=== PATIENT | female | born 1965 | race Caucasian/White ===

== ENCOUNTER 2017-03-10 11:07 | Outpatient (RCR) | payer BC, SELFPAY ==
[2017-03-10 12:28] LABS: International Normalized Ratio 2.3; Prothrombin Time (Protime)PT. 24.2 SECONDS (11.7-14.9)
== END 2017-03-16 23:59 ==
LOC: BFHLAB 11:07
PROVIDERS: Family Provider Family Medicine; PCP Family Medicine; Visit Provider Family Medicine
DX: I35.9 Nonrheumatic aortic valve disorder, unspecified (principal)
CPT/HCPCS: 36415; 85610

== ENCOUNTER 2017-03-28 08:46 | Outpatient (RCR) | payer BC, SELFPAY ==
[2017-03-28 12:24] LABS: International Normalized Ratio 2.6; Prothrombin Time (Protime)PT. 26.9 SECONDS (11.7-14.9)
== END 2017-04-13 23:59 ==
LOC: BFHLAB 08:46
PROVIDERS: Family Provider Family Medicine; PCP Family Medicine; Visit Provider Family Medicine
DX: I35.9 Nonrheumatic aortic valve disorder, unspecified (principal)
CPT/HCPCS: 36415; 85610

== ENCOUNTER → 2017-04-28 10:02 | Outpatient (CLI) | payer BC, SELFPAY ==
[2017-02-15 12:28] LABS: International Normalized Ratio 1.3; Prothrombin Time (Protime)PT. 15.5 SECONDS (11.7-14.9)
[2017-04-28 12:29] LABS: International Normalized Ratio 3.2; Prothrombin Time (Protime)PT. 33.1 SECONDS (11.7-14.9)
== END ==
PROVIDERS: Family Provider Family Medicine; PCP Family Medicine; Visit Provider Family Medicine
DX: I35.9 Nonrheumatic aortic valve disorder, unspecified (principal)
CPT/HCPCS: 36415; 85610

== ENCOUNTER → 2017-05-26 08:25 | Outpatient (CLI) | payer BC, SELFPAY ==
[2017-05-26 10:57] LABS: Absolute Lymphocyte Count 1.83 X10^3/ul (0.83-4.51); Absolute Neutrophil Count 3.1 X10^3/uL (2.0-7.7); Basophil# 0.02 X10^3/uL; Basophil% 0.3 % (0-1); Eosinophil# 0.26 X10^3/uL; Eosinophils% 4.5 % (0-5); Hematocrit 39.9 % (37-47); Lymphocyte # 1.83 X10^3/ul (4.0); Lymphocyte % 31.8 % (19-41); Mean Corp Hgb Conc 35.1 g/gl (32-36); Mean Corpuscular Hgb 30.4 pg (27.0-32.0); Mean Corpuscular Volume 86.6 fL (81-99); Mean Platelet Vol. 10.1 fl (6.2-12.0); Monocyte# 0.49 X10^3/uL; Monocyte% 8.5 % (0-10); Neutrophil # 3.14 X10^3/uL (2.7-7.7); Neutrophil % 54.7 % (47-70); POSITIVE COUNT NO; POSITIVE DIFFERENTIAL NO; POSITIVE MORPHOLOGY NO; Platelet Count 261 K/mm3 (150-450); RBC Distribution Width CV 13.4 % (11.6-14.6); RBC Distribution Width SD 41.5 fl (35.1-43.9); Red Blood Count 4.61 M/mm3 (4.2-5.4); White Blood Count 5.8 K/mm3 (4.4-11.0)
[2017-05-26 11:12] LABS: AST(SGOT) 30 U/L (15-37); Alanine Aminotransfer ALT/SGPT 35 U/L (13-56); Albumin, Serum 3.9 g/dL (3.2-5.0); Alkaline Phosphatase 119 U/L (45-117); Anion Gap 8 (5-15); BUN 20 mg/dL (7-18); BUN/Creat Ratio 22.2 RATIO (10-20); Calcium,Total 9.2 mg/dL (8.5-10.1); Chloride 105 mmol/L (98-107); Cholesterol 215 mg/dL (200); EST Glomerular Filtration Rate 70 mL/min (>60); Est Glom Filt Rate - Afr Amer 85 mL/min (>60); Globulin 3.8 g/dL (2.2-4.2); Glucose 91 mg/dL (74-106); High Density Lipoprotein 44 mg/dL; Potassium 4.1 mmol/L (3.5-5.1); Protein, Total 7.7 g/dL (6.4-8.2); Sodium Level 142 mmol/L (136-145); T4 Free Direct 0.96 ng/dL (0.76-1.46); Triglycerides 271 mg/dL; Very Low Density Lipoprotein 54 mg/dL (5-40)
[2017-05-26 11:22] LABS: International Normalized Ratio 1.7
[2017-05-27 09:48] LABS: Vitamin B12 1022 pg/mL (211-911); Vitamin D,25 Hydroxy 22.8 ng/mL (29.95-100.01)
== END ==
PROVIDERS: Family Provider Family Medicine; PCP Family Medicine; Visit Provider Family Medicine
DX: E78.5 Hyperlipidemia, unspecified (principal); I35.9 Nonrheumatic aortic valve disorder, unspecified; K21.9 Gastro-esophageal reflux disease without esophagitis; R53.83 Other fatigue; E55.9 Vitamin D deficiency, unspecified; E53.8 Deficiency of other specified B group vitamins
CPT/HCPCS: 36415; 80053; 80061; 82306; 82607; 84439; 84443; 85025; 85610

== ENCOUNTER → 2017-06-02 06:57 | Outpatient (CLI) | payer BC, SELFPAY ==
--- NOTE | 2017-06-02 07:04 | BI_ITS ---
MAMMOGRAPHY - BILATERAL SCREENING REASON FOR EXAM: Female, 51 years old. Routine annual screening examination. PERTINENT HISTORY: Non-contributory. TECHNIQUE: Digital bilateral breast doug (3D mammographic acquisition) in the CC and MLO projections. 2-D mediolateral oblique (MLO) and craniocaudad (CC) views of both breasts were obtained. CAD: Full Field Digital Mammography with Computer Added Detection was performed. COMPARISON: Comparison is made with prior study dated September 29, 2015 and November 19, 2009. FINDINGS: Breast Composition: There are scattered areas of fibroglandular density. There are no dominant masses or suspicious calcifications. No other significant abnormalities are identified. There has been no significant change since the prior study. BI/SCREENING MAMM (CAD), BILAT IMPRESSION: Stable bilateral screening mammogram. Yearly follow-up mammogram recommended. (A) ASSESSMENT CATEGORY: BIRADS Category 1: Negative. A letter regarding these results will be sent to the patient by the facility within 30 days. Approximately 10% of breast cancers are not detected by mammography. A normal mammogram should not delay biopsy of a clinically suspicious abnormality. [id number] Electronically Signed: Ludwin Hernandes MD at 8:35 EDT Tel [phone], Service support ,
== END ==
PROVIDERS: Family Provider Family Medicine; PCP Family Medicine; Visit Provider Family Medicine
DX: Z12.31 Encounter for screening mammogram for malignant neoplasm of breast (principal)
CPT/HCPCS: 77063; 77067

== ENCOUNTER 2017-06-02 07:22 | Outpatient (RCR) | payer BC, SELFPAY ==
[2017-06-02 08:55] LABS: International Normalized Ratio 3.5; Prothrombin Time (Protime)PT. 35.1 SECONDS (11.7-14.9)
== END 2017-06-02 08:00 | disposition home or self-care (01) ==
LOC: LAB 07:22
PROVIDERS: Family Provider Family Medicine; PCP Family Medicine; Visit Provider Family Medicine
DX: I35.9 Nonrheumatic aortic valve disorder, unspecified (principal)
CPT/HCPCS: 36415; 85610

== ENCOUNTER → 2017-06-27 13:58 | Outpatient (CLI) | payer BC, SELFPAY ==
[2017-06-29 11:12] LABS: HPV APTIMA, High Risk Negative (Negative)
== END ==
PROVIDERS: Visit Provider Nurse Practitioner Women's Health
DX: Z12.4 Encounter for screening for malignant neoplasm of cervix (principal)
CPT/HCPCS: 88175; G0145

== ENCOUNTER 2017-07-05 07:47 | Day surgery (SDC) | payer BC, SELFPAY ==
[2017-07-05 08:11] VITALS: BP 135/76; PULSE 58; RESP 14; TEMP 35.6; O2SAT 100; BMI 28.5
[2017-07-05 08:31] LABS: International Normalized Ratio 2.1; Prothrombin Time (Protime)PT. 23.7 SECONDS (11.7-14.9)
[2017-07-05 09:27] VITALS: BP 106/64; BP 135/76; PULSE 57; RESP 18; TEMP 36.9; O2SAT 98
--- NOTE | 2017-07-05 09:27 | PCM.OPRPT ---
Problem List (1) Screen for colon cancer Status: Acute Report of Operation Date of Procedure: 07/05/17 Pre-Operative Diagnosis: Screening colon cancer Post-Operative Diagnosis: Normal colonoscopy Surgery/Procedure Performed:: Colonoscopy Specimen's removed: None Description of Procedure: The major risks and benefits associated with the procedure were explained to the patient in detail. The patient verbalized understanding and agreement with the same. The patient was brought to the endoscopy suite. After adequate sedation was achieved, the patient was placed in the left lateral decubitus position and a digital rectal exam was performed. This examination was within normal limits. A well-lubricated colonoscope was then inserted into the rectum and advanced under direct visualization to the level of the cecum. The bowel prep was good. The cecum was identified by both visual and anatomic landmarks. A photograph was taken of the end of the cecum. The scope was then fully withdrawn while examining the color, texture, anatomy and integrity of the mucosa from the cecum to the anal canal. The findings were consistent with normal colonic mucosa. Over 6 minutes were taken to examine the colonic mucosa. Upon reaching the rectum the scope was retroflexed to examine the distal rectal vault. The scope was then straightened and was completely retrieved upon exiting the anal canal and the procedure was terminated. The patient was then transferred to the recovery room in stable condition. Recommendations for follow up: 10 years
[2017-07-05 09:30] VITALS: BP 105/64; BP 135/76; PULSE 55; RESP 14; O2SAT 98
[2017-07-05 09:36] VITALS: BP 115/68; BP 135/76; PULSE 54; RESP 14; O2SAT 100
[2017-07-05 09:40] VITALS: BP 109/67; BP 135/76; PULSE 52; RESP 14; TEMP 36.8; O2SAT 100
[2017-07-05 09:56] VITALS: BP 135/76
[2017-07-05 10:21] LABS: Prothrombin Time Fingerstick 21.5 SEC (11.9-14.4)
== END 2017-07-05 09:58 | disposition home or self-care (01) ==
LOC: EN 07:48 → AC 07:48
PROVIDERS: Family Provider Family Medicine; PCP Family Medicine; Visit Provider Surgery
PROC: 0DJD8ZZ Inspection of Lower Intestinal Tract, Via Natural or Artificial Opening Endoscopic (ICD-10-PCS; CPT 45378; principal; 2017-07-05 08:55)
DX: Z12.11 Encounter for screening for malignant neoplasm of colon (principal); I10 Essential (primary) hypertension; E78.5 Hyperlipidemia, unspecified; K21.9 Gastro-esophageal reflux disease without esophagitis; Z85.41 Personal history of malignant neoplasm of cervix uteri; Z95.4 Presence of other heart-valve replacement
CPT/HCPCS: 45378; 36416; 85610; J7120

== ENCOUNTER → 2017-07-13 07:55 | Outpatient (CLI) | payer BC, SELFPAY ==
[2017-07-13 12:15] LABS: International Normalized Ratio 2.7; Prothrombin Time (Protime)PT. 29.2 SECONDS (11.7-14.9)
[2017-09-14 07:31] LABS: Prothrombin Time Fingerstick 28.9 SEC (11.9-14.4)
== END ==
LOC: BFHLAB 07:55
PROVIDERS: Family Provider Family Medicine; PCP Family Medicine; Visit Provider Family Medicine
DX: I35.9 Nonrheumatic aortic valve disorder, unspecified (principal)
CPT/HCPCS: 36415; 36416; 85610

== ENCOUNTER 2017-07-24 17:35 | Emergency (ER) | payer BC, SELFPAY ==
--- NOTE | 2017-07-24 17:35 | DT_ITS ---
This patient was seen during an EMR downtime July 18, 2017 - July 25, 2017. This patient may have a combination of paper and electronic documentation or all paper documentation. All documentation is viewable within the e-chart portion of [employer] for each patient visit.
--- NOTE | 2017-07-24 18:49 | RAD_ITS ---
STUDY: X-RAY - LEFT FEMUR REASON FOR STUDY: Female, 52 years old. Trauma TECHNIQUE: Radiological exam, femur, minimum 2 views COMPARISON: None. FINDINGS: An intramedullary emilio is seen throughout the length of left femoral shaft which stabilized a healed fracture of the mid left femoral shaft. There is no evidence of acute fracture or dislocation. RAD/Femur Min 2 Views IMPRESSION: Intramedullary emilio seen throughout the length of left femur. There is no evidence of acute fracture or dislocation. Electronically Signed: Peter Loyola MD at 19:32 EDT , Service support ,
--- NOTE | 2017-07-24 18:56 | CT_ITS ---
STUDY: CT BRAIN WITHOUT CONTRAST REASON FOR EXAM: Female, 52 years old. FALL, PT ON COUMADIN FOR MECHANICAL HEART VALVE RADIATION DOSAGE (If Supplied By Facility): CTDIvol = ( 44.99 ) mGy, DLP = ( 796.11 ) mGycm TECHNIQUE: Transaxial CT imaging of the brain was performed without administration of intravenous contrast material. Individualized dose optimization techniques were used for this CT. COMPARISON: None. FINDINGS: Normal soft tissue structures. Normal calvarium. Normal size ventricles and extra-axial spaces for the patient's age. Normal white matter tracts of the cerebral hemispheres. Normal basal ganglia and thalami. Normal brainstem. Normal cerebellum. There is no intracranial hemorrhage. There are no findings of an acute ischemic infarction. Normal visualized paranasal sinuses. CT/Brain/Head without Contrast IMPRESSION: Normal unenhanced CT scan of the brain. Electronically Signed: Tor Estrada MD at 19:58 EDT , Service support , EXAM: CT OF THE LEFT HIP REASON FOR EXAM: Female, 52 years old. FALL, PT ON COUMADIN FOR MECHANICAL HEART VALVE COMPARISON: None. TECHNIQUE: Multiple axial, sagittal, and coronal computed tomographic images were obtained of the hip. IV contrast was not utilized. FINDINGS: Within the rectus femoris is a heterogeneous area of low central density measuring 39 x 50 x 36 mm. This has a peripheral irregular border. There is no fracture. There is no dislocation. There is anatomic alignment. The sacro iliac joint is unremarkable. Femoral head is noted in the acetabulum. The uterus is not visualized and is most likely surgically absent. Femoral intramedullary emilio in place. There is no fracture. Healed mid femoral fracture noted. IMPRESSION: There is the appearance of an intramuscular hematoma of the rectus femoris muscle. Electronically Signed: Tor Estrada MD at 22:09 EDT , Service support ,
--- NOTE | 2017-07-24 20:52 | CT_ITS ---
STUDY: CT BRAIN WITHOUT CONTRAST REASON FOR EXAM: Female, 52 years old. FALL, PT ON COUMADIN FOR MECHANICAL HEART VALVE RADIATION DOSAGE (If Supplied By Facility): CTDIvol = ( 44.99 ) mGy, DLP = ( 796.11 ) mGycm TECHNIQUE: Transaxial CT imaging of the brain was performed without administration of intravenous contrast material. Individualized dose optimization techniques were used for this CT. COMPARISON: None. FINDINGS: Normal soft tissue structures. Normal calvarium. Normal size ventricles and extra-axial spaces for the patient's age. Normal white matter tracts of the cerebral hemispheres. Normal basal ganglia and thalami. Normal brainstem. Normal cerebellum. There is no intracranial hemorrhage. There are no findings of an acute ischemic infarction. Normal visualized paranasal sinuses. CT/Extremity Lower without Contra IMPRESSION: Normal unenhanced CT scan of the brain. Electronically Signed: Tor Estrada MD at 19:58 EDT , Service support , EXAM: CT OF THE LEFT HIP REASON FOR EXAM: Female, 52 years old. FALL, PT ON COUMADIN FOR MECHANICAL HEART VALVE COMPARISON: None. TECHNIQUE: Multiple axial, sagittal, and coronal computed tomographic images were obtained of the hip. IV contrast was not utilized. FINDINGS: Within the rectus femoris is a heterogeneous area of low central density measuring 39 x 50 x 36 mm. This has a peripheral irregular border. There is no fracture. There is no dislocation. There is anatomic alignment. The sacro iliac joint is unremarkable. Femoral head is noted in the acetabulum. The uterus is not visualized and is most likely surgically absent. Femoral intramedullary emilio in place. There is no fracture. Healed mid femoral fracture noted. IMPRESSION: There is the appearance of an intramuscular hematoma of the rectus femoris muscle. Electronically Signed: Tor Estrada MD at 22:09 EDT , Service support ,
[2017-07-26 10:27] LABS: International Normalized Ratio 3.5; Prothrombin Time (Protime)PT. 35.3 SECONDS (11.7-14.9)
[2017-07-26 11:23] LABS: Anion Gap 6 (5-15); BUN 25 mg/dL (7-18); BUN/Creat Ratio 29.1 RATIO (10-20); Calcium,Total 8.8 mg/dL (8.5-10.1); Chloride 102 mmol/L (98-107); Creatinine, Serum 0.86 mg/dL (0.55-1.02); EST Glomerular Filtration Rate 74 mL/min (>60); Est Glom Filt Rate - Afr Amer 90 mL/min (>60); Glucose 93 mg/dL (74-106); Potassium 3.7 mmol/L (3.5-5.1); Sodium Level 138 mmol/L (136-145)
[2017-07-26 13:42] LABS: Hematocrit 34.3 % (37-47); Hemoglobin 11.9 g/dl (12.0-15.0); Mean Corp Hgb Conc 34.7 g/gl (32-36); Mean Corpuscular Hgb 29.9 pg (27.0-32.0); Mean Corpuscular Volume 86.2 fL (81-99); Mean Platelet Vol. 9.2 fl (6.2-12.0); Platelet Count 240 K/mm3 (150-450); RBC Distribution Width CV 13.6 % (11.6-14.6); RBC Distribution Width SD 43.3 fl (35.1-43.9); Red Blood Count 3.98 M/mm3 (4.2-5.4); Scan Indicated on CBC? Y/N NO
== END 2017-07-24 23:38 | disposition home or self-care (01) ==
LOC: ED 07-25 08:45
PROVIDERS: Emergency Provider Emergency Medicine; Family Provider Family Medicine; PCP Family Medicine
DX: S70.12XA Contusion of left thigh, initial encounter (principal); W10.9XXA Fall (on) (from) unspecified stairs and steps, initial encounter; Y93.9 Activity, unspecified; Y92.9 Unspecified place or not applicable; R79.1 Abnormal coagulation profile; Z79.01 Long term (current) use of anticoagulants; Z95.2 Presence of prosthetic heart valve; Z90.49 Acquired absence of other specified parts of digestive tract; Z79.899 Other long term (current) drug therapy
CPT/HCPCS: 36415; 70450; 73552; 73700; 80048; 85027; 85610; 96372; 96374; 96375; 99284; A4216

== ENCOUNTER 2017-07-27 09:38 | Inpatient (IN) | payer BC, SELFPAY ==
[2017-07-27] VITALS (8 sets, daily range): BP systolic 118–139; BP diastolic 63–84; PULSE 86–108; RESP 15–18; TEMP 36.6–37.3; O2SAT 95–97; BMI 29.2; BMI 29.3; BMI 29.4
--- NOTE | 2017-07-27 09:48 | NURSING ---
NO LW OR POA
--- NOTE | 2017-07-27 10:03 | NURSING ---
DR REJI KAUR
--- NOTE | 2017-07-27 10:04 | ED.VISSUMM ---
- ER Visit Summary Date of Service: 07/27/17 Chief Complaint: Fall with left thigh hematoma History of Present Illness: The patient is a 52 F anticoagulated on Coumadin secondary to a prosthetic aortic valve. Reportedly the patient fell on and down approximately 6 steps on Tuesday. She was seen in the ER yesterday secondary to a left thigh hematoma. They did a plain x-ray and a CT in which they saw the hematoma. She followed up with her primary care physician Dr. Moy today her center by down the ER for evaluation of a possible evacuation of the hematoma. Physical Examination: Appearing middle-aged female. No acute distress. Vital signs are stable. Afebrile. She does not look septic or toxic. She is in no acute distress. HEENT exam is unremarkable atraumatic. There is no signs of trauma in her face or scalp. C-spine nontender. Lungs clear to auscultation bilaterally. Heart regular rhythm no murmur. Abdomen is soft and nontender. Chest wall is nontender. She is moving all 4 extremities. They are neurovascularly intact. Her left anterior lateral thigh has a large hematoma with bruising. There is no gross bony deformity. No hip or knee tenderness. Both lower extremities are neurovascularly intact. She has a palpable DP pulse she is able to wiggle her toes. She has normal cap refill and tight sensation in her left foot. Currently there is no signs of compartment syndrome. Back exam nontender. Neurologic exam unremarkable. Test Results: CBC shows a white count of 8 H&H of 10.2 and 30. Her previous hemoglobin was 11.9. I suspect the anemia is from accumulation of hematoma in the left lateral thigh. INR is 1.8 she has been holding her Coumadin. Emergency Department Course and Treatment: I spoke with Dr. Mccollum and he will evaluate the patient in the hospital for possible hematoma evacuation after she is admitted by the hospitalist. I currently have him on page. Treatment Plan: Patient was treated with morphine and Zofran for pain. Disposition: Admission Impression: Acute Large left thigh hematoma status post fall Anticoagulated on Coumadin This note was generated with [employer] dictation software. It may contain incorrect words, spelling, and punctuation that were not noted in review of the chart prior to signing ED Disposition - Plan for ED Patient: Chief Complaint: Lower Extremity Injury Referrals: Miya Goldman DO [Primary Care Provider] -
[2017-07-27 10:26] LABS: Hematocrit 30.5 % (37-47); Hemoglobin 10.2 g/dl (12.0-15.0); Mean Corp Hgb Conc 33.4 g/gl (32-36); Mean Corpuscular Hgb 29.7 pg (27.0-32.0); Mean Corpuscular Volume 88.9 fL (81-99); Platelet Count 217 K/mm3 (150-450); RBC Distribution Width CV 13.9 % (11.6-14.6); RBC Distribution Width SD 45.1 fl (35.1-43.9); Red Blood Count 3.43 M/mm3 (4.2-5.4); White Blood Count 8.9 K/mm3 (4.4-11.0)
--- NOTE | 2017-07-27 10:29 | NURSING ---
DR MENDOZA FOR DR HOFF
[2017-07-27 10:31] LABS: Scan Indicated on CBC? Y/N NO
[2017-07-27 10:54] LABS: International Normalized Ratio 1.8; Prothrombin Time (Protime)PT. 20.8 SECONDS (11.7-14.9)
[2017-07-27] MEDS: Ondansetron 4 MG/2 ML Vial IV (10:57)
[2017-07-27] MEDS: morphine 8 MG/ML Syringe 6 MG IV (10:58)
--- NOTE | 2017-07-27 12:03 | NURSING ---
DR CABEZAS FOR DR HOFF
--- NOTE | 2017-07-27 13:44 | HP.PCM_ITS ---
Problem List (1) Thoracic aortic aneurysm Status: Resolved (2) History of aortic valve replacement with metallic valve Status: Chronic Comment: 21mm St. Ten Valved conduit 05/28/09 (3) Nonrheumatic aortic (valve) insufficiency Status: Resolved (4) Bicuspid aortic valve Status: Resolved (5) Hyperlipidemia Status: Chronic (6) Hypertension Status: Chronic History of Present Illness Date of Admission: 07/27/17 Chief Complaint: Left thigh pain and swelling after a fall The patient is a 52 year old F who is status post mechanical aortic valve replacement on Coumadin , essential hypertension and dyslipidemia who fell down approximately 6 steps about 3 days ago, she was seen in the emergency room and she underwent plain x-ray and a CT in which showed a hematoma. She was discharged home and recommended to follow-up with her primary care physician today , her left eye had become much more swollen tender and firm and she was referred back to the emergency room to get admitted for possible evacuation. Dr. Mccollum was consulted from the emergency room. INR today is 1.8 , it was 3.5 when she came to the Ed 3 days ago and her hemoglobin is 10.2 today. The patient reports significant left thigh pain, she denies any shortness of breath , chest pain, palpitations or rapid heartbeat or dizziness. Past Medical History Past Medical History (Chronic Problems): Chronic Problems (Last Reviewed 06/29/17 @ 13:24 by Shannon Mcneil) History of aortic valve replacement with metallic valve (Chronic ~05/28/09) 21mm St. Ten Valved conduit 05/28/09 Hyperlipidemia (Chronic) Hypertension (Chronic) Medical History: Medical History (Last Reviewed 06/29/17 @ 13:24 by Shannon Mcneil) Thoracic aortic aneurysm (Resolved) I71.2 History of aortic valve replacement with metallic valve (Chronic) Onset Date: ~05/28/[address] Ten Valved conduit 05/28/09 Nonrheumatic aortic (valve) insufficiency (Resolved) I35.1 Bicuspid aortic valve (Resolved) Q23.1 Hyperlipidemia (Chronic) E78.5 Hypertension (Chronic) I10 Abnormal Pap smear of cervix R87.619 History of malignant neoplasm of cervix Z85.41 GERD (gastroesophageal reflux disease) K21.9 Allergies fluoxetine Allergy (Mild, Verified 07/27/17 09:41) Other head ache gabapentin Allergy (Mild, Verified 07/27/17 09:41) Abd cramps/diarrhea venlafaxine Allergy (Mild, Verified 07/27/17 09:41) Pain in joints tramadol Adverse Reaction (Verified 07/27/17 09:41) Nausea Home Medications: Ambulatory Orders Medication Instructions Recorded Lisinopril/Hydrochlorothiazide 10 mg PO DAILY 08/26/16 [Zestoretic 10/12.5 Tablet] alprazolam 0.25 mg tablet 0.25 mg PO BID-TID PRN 06/29/17 warfarin 5 mg tablet 5 mg PO DAILY tab 06/29/17 Estradiol 0.5 mg PO QDAY 07/27/17 Estradiol 1 g VAGINAL Q3D 07/27/17 Surgical History: Surgical History (Last Reviewed 06/29/17 @ 13:24 by Shannon Mcneil) Mechanical heart valve present Z95.2 femur surgery delivery delivered O82 History of thoracic aortic aneurysm repair Onset Date: ~05/28/09 Z98.890, Z86.79 Hx of abdominal hysterectomy Z90.710 Hx of cholecystectomy Z90.49 S/P gastroplasty Z98.890 Status post aortic valve replacement Onset Date: ~05/28/09 Z95.2 Surgical History: hysterectomy, - - Aortic valve replacement Psychiatric History: No pertinent psych hx DIRECTOR IMAGING History: No pertinent DIRECTOR IMAGING history Smoking Status: Never smoker - *Family History Maternal Family History: Family History (Last Reviewed 06/29/17 @ 13:25 by Shannon Mcneil) Grandmother Heart disease Mother Heart disease History Items: No pertinent history Paternal Family History: Family History (Last Reviewed 06/29/17 @ 13:25 by Shannon Mcneil) Grandmother Heart disease Mother Heart disease History Items: No pertinent history Review of Systems Comment: All Systems were reviewed with pertinent positives mentioned in the HPI above. VTE Information - Inpt Only VTE Present on Admission: No VTE Mechan Device Prophylaxis: SCD's VTE Pharm Prophylaxis ordered?: No Reason prophylaxis not ordered:: Medical Contraindication - Left thigh hematoma from coagulopathy - Physical Exam General: Alert, Oriented x3 HEENT: Atraumatic Oral: Moist Mucosa Neck: Supple Lungs: Clear to auscultation Cardiovascular: Regular rate, Normal S2 Abdomen: Bowel Sounds Present, Soft, Non Tender, Non-Distended Musculoskeletal: Tenderness Neurological: Cranial nerves II-XII grossly intact, Deep Tendon Reflexes 2+/4 and Symmetrical, Neuro grossly intact, Motor Exam 5/5 strength throughout Psych/Mental Status: Normal Affect Vital Signs Temp Pulse Resp BP Pulse Ox 98.5 F 101 H 18 118/77 97 07/27/17 13:04 07/27/17 13:04 07/27/17 13:04 07/27/17 13:04 07/27/17 13:04 Oxygen Delivery Method Room Air Weight: 77.6 kg Body Mass Index (BMI) 29.3 Assessment/Plan All Active Problems (Last Reviewed 06/29/17 @ 13:24 by Shannon Mcneil) Screen for colon cancer (Acute) Thoracic aortic aneurysm (Resolved) Nonrheumatic aortic (valve) insufficiency (Resolved) Bicuspid aortic valve (Resolved) 1. Acute Left thigh hematoma following a fall in the setting of Coumadin coagulopathy; we would optimize pain control, we will monitor patient closely for signs of compartment syndrome, Dr. Mccollum has been consulted for possible hematoma evacuation. 2. Acute blood loss anemia; will check serial H&H and transfuse if need be. 3. status post mechanical aortic valve replacement due to bicuspid aortic valve ; Coumadin is now on hold, once hematoma is evacuated and hemostasis achieved , we will restart anticoagulation with heparin and transition slowly back to Coumadin. 4. Essential hypertension; we will continue her lisinopril/ hydrochlorothiazide. 5. DVT prophylaxis with SCDs. Code Visit Inpatient E&M: 36606 Init Hosp L3
[2017-07-27 14:13] LABS: Hematocrit 27.6 % (37-47); Hemoglobin 9.4 g/dl (12.0-15.0)
[2017-07-27] MEDS: HYDROmorphone 1 MG/ML Syringe IV ×2 (15:35→18:22)
[2017-07-27] MEDS: 0.9% NaCl Peripheral Flush Adult/Peds IV ×2 (15:37→18:23)
--- NOTE | 2017-07-27 18:40 | CON.PCM_ITS ---
Reason for Consult Date of Consultation: 07/27/17 Reason for Consultation: Traumatic hematoma left anterolateral thigh. REFERRING PHYSICIAN: Dr. Cox. WET TRIMMER: Dr. Mccollum. History of Present Illness: The patient is a 52 year old F who is on Coumadin for a mechanical heart valve was walking her dog and fell on the sidewalk back on 07/24/17. She was seen in the ED and she underwent plain x-ray and a CT in which showed a hematoma. She was discharged home and recommended to follow-up with her primary care physician. When seen today, she complained of increasing pain and swelling in her left thigh and returned to the ED for further evaluation. She was admitted. She states she has been off her Coumadin for two days and her INR today was 1.8. Her WBC was 8.9. Her Hgb was 10.2. Back on 07/24/17, her Hgb was 11.9. She denies fever. I was asked to evaluate this patient for surgical options for treatment. , her left eye had become much more swollen tender and firm and she was referred back to the emergency room to get admitted for possible evacuation. Past Medical History Past Medical History (Chronic Problems): Chronic Problems (Last Reviewed 06/29/17 @ 13:24 by Shannon Mcneil) snf current use of anticoagulant (Chronic) Open wound of left hip and thigh with complication (Chronic) open surgical hematoma wound left anterolateral thigh with muscle involvement ( vastus lateralis muscle) History of aortic valve replacement with metallic valve (Chronic ~05/28/09) 21mm [facility] Ten Valved conduit 05/28/09 Hyperlipidemia (Chronic) Hypertension (Chronic) Medical History: Medical History (Last Reviewed 06/29/17 @ 13:24 by Shannon Mcneil) Thoracic aortic aneurysm (Resolved) I71.2 History of aortic valve replacement with metallic valve (Chronic) Onset Date: ~05/28/[address] [place] Valved conduit 05/28/09 Nonrheumatic aortic (valve) insufficiency (Resolved) I35.1 Bicuspid aortic valve (Resolved) Q23.1 Hyperlipidemia (Chronic) E78.5 Hypertension (Chronic) I10 Abnormal Pap smear of cervix R87.619 History of malignant neoplasm of cervix Z85.41 GERD (gastroesophageal reflux disease) K21.9 Allergies fluoxetine Allergy (Mild, Verified 07/27/17 09:41) Other head ache gabapentin Allergy (Mild, Verified 07/27/17 09:41) Abd cramps/diarrhea venlafaxine Allergy (Mild, Verified 07/27/17 09:41) Pain in joints tramadol Adverse Reaction (Verified 07/27/17 09:41) Nausea Current Medications Alprazolam (Xanax) 0.25 mg PO TID PRN Estradiol (Estradiol) 0.5 mg PO DAILYCM [facility] Estradiol (Estrace Vaginal Cream) 1 gm VAGINAL Q3D [facility] Hydrochlorothiazide (Hydrochlorothiazide) 12.5 mg PO DAILY [facility] Hydromorphone HCl (Dilaudid Inj) 1 mg IV Q2H PRN Lisinopril (Zestril) 10 mg PO DAILY [facility] Magnesium Hydroxide (Milk Of Magnesia) 30 ml PO DAILY PRN Home Medications: Ambulatory Orders Medication Instructions Recorded Lisinopril/Hydrochlorothiazide 10 mg PO DAILY 08/26/16 [Zestoretic 10/12.5 Tablet] alprazolam 0.25 mg tablet 0.25 mg PO BID-TID PRN 06/29/17 warfarin 5 mg tablet 5 mg PO DAILY tab 06/29/17 Estradiol 0.5 mg PO QDAY 07/27/17 Estradiol 1 g VAGINAL Q3D 07/27/17 Surgical History: Surgical History (Last Reviewed 06/29/17 @ 13:24 by Shannon Mcneil) Mechanical heart valve present Z95.2 femur surgery delivery delivered O82 History of thoracic aortic aneurysm repair Onset Date: ~05/28/09 Z98.890, Z86.79 Hx of abdominal hysterectomy Z90.710 Hx of cholecystectomy Z90.49 S/P gastroplasty Z98.890 Status post aortic valve replacement Onset Date: ~05/28/09 Z95.2 Surgical History: cholecystectomy, hysterectomy, - - Aortic valve replacement ( mechanical). Gastroplasty for weight loss. Left femur fracture repair with hardware. Thoracic aortic aneurysm repair. 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 Denies: Fever Eyes: Denies: Cataracts HEENT: Denies: Nasal Congestion, Sore Throat Cardiovascular: Denies: Chest Pain Respiratory: Denies: Cough, Shortness of Breath Gastrointestinal: Denies: Constipation, Diarrhea, Nausea, Vomiting Genitourinary: Denies: Frequency, Hematuria Musculoskeletal: Reports: Leg Pain - left thigh pain from hematoma.. Denies: Foot Pain, Hand Pain, Joint Pain, Neck Pain Skin: Denies: - - has some mild skin bruising in left anterolateral thigh where traumatic hematoma located. Neurological: Denies: Headaches, Numbness, Tingling Psychiatric: Denies: Anxiety, Depression Hematologic/ Lymphatic: Reports: Easy Bruising - on Coumadin for a mechanical heart valve., Easy Bleeding - on Coumadin for a mechanical heart valve.. Denies : Hx of blood clot Patient Problems: Active and Suspected Problems (Last Reviewed 06/29/17 @ 13:24 by Shannon Mcneil) Traumatic hematoma of left thigh (Acute) traumatic intramuscular hematoma left anterolateral thigh (vastus lateralis muscle) - Physical Exam General: Alert, Oriented x3 HEENT: PERRL. EOMI. Throat is clear. Oral: Moist Mucosa Neck: Supple nontender. No cervical adenopathy. Lungs: Clear to auscultation Cardiovascular: Regular rate, Normal S2 Abdomen: Soft, Non-Distended Musculoskeletal: Tenderness left anterolateral thigh. Traumatic hematoma. Overlying skin mildly bruised. No skin necrosis seen. Mild firmness noted laterally. Area of tenderness measures about 8 cm. Rest of the thigh is soft and nontender. No clinical evidence for compartment syndrome. CT shows hematoma superficially at level of the muscle laterally. No evidence of hematoma in the deeper tissue. Neurological: Cranial nerves II-XII grossly intact. No sensory deficits left leg. Psych/Mental Status: Normal Affect Vital Signs Temp Pulse Resp BP Pulse Ox 98.5 F 97 18 118/77 97 07/27/17 13:04 07/27/17 15:00 07/27/17 13:04 07/27/17 13:04 07/27/17 13:04 Oxygen Delivery Method Room Air Weight: 171 lb 1.259 oz Body Mass Index (BMI) 29.3 Laboratory Tests Past 24 Hrs 07/27/17 14:00 Hgb 9.4 L Hct 27.6 L Assessment/Plan All Active Problems (Last Reviewed 06/29/17 @ 13:24 by Shannon Mcneil) Traumatic hematoma of left thigh (Acute) Screen for colon cancer (Acute) Thoracic aortic aneurysm (Resolved) Nonrheumatic aortic (valve) insufficiency (Resolved) Bicuspid aortic valve (Resolved) 1. Traumatic hematoma left anterolateral thigh. 2. snf use of Coumadin for mechanical heart valve. CT reviewed. CT shows hematoma superficially at level of the muscle laterally. No evidence of hematoma in the deeper tissue. Patient has painful traumatic hematoma left anterolateral thigh. She is off her Coumadin at present. Will bridge with Lovenox. Will begin Ancef to minimize secondary infection before surgical drainage. Recommend operative intervention for incision and drainage and evacuation of traumatic hematoma. Will leave the wound open and begin the VAC postop. Will send tissue to Microbiology for culture. A positive culture will necessitate antibiotic therapy. Anticipate increased metabolic demands. Will check a Prealbumin and encourage nutritional supplementation with protein to help the healing process. After discharge, will followup at [facility]. If there is a plateau in the healing process, can proceed with delayed closure with skin grafting. Patient was informed of the risks and complications of the procedure including alternatives to surgery. These were discussed with her personally. She voices understanding and wishes to proceed. Will schedule the surgery for tomorrow. After surgery will resume Coumadin. Code Visit Inpatient E&M: 35948 Init Hosp L2 - ICD-10 - S70.12xA, Z79.01
[2017-07-27] MEDS: Cefazolin 1 GM/50 ML BAG IV (21:47)
[2017-07-27 22:24] LABS: Hematocrit 26.2 % (37-47); Hemoglobin 8.8 g/dl (12.0-15.0)
[2017-07-28] VITALS (29 sets, daily range): BP systolic 98–159; BP diastolic 54–76; PULSE 79–116; RESP 15–18; TEMP 35.7–37.5; O2SAT 92–100; BMI 29.3
[2017-07-28] MEDS: HYDROmorphone 1 MG/ML Syringe IV ×5 (00:10→20:08)
[2017-07-28] MEDS: 0.9% NaCl Peripheral Flush Adult/Peds IV ×6 (00:10→20:09)
[2017-07-28] MEDS: Cefazolin 1 GM/50 ML BAG IV ×2 (06:05→13:52)
[2017-07-28 06:12] LABS: Hematocrit 25.8 % (37-47); Hemoglobin 8.6 g/dl (12.0-15.0); Mean Corp Hgb Conc 33.3 g/gl (32-36); Mean Corpuscular Hgb 30.7 pg (27.0-32.0); Mean Corpuscular Volume 92.1 fL (81-99); Mean Platelet Vol. 9.4 fl (6.2-12.0); Platelet Count 232 K/mm3 (150-450); RBC Distribution Width CV 13.7 % (11.6-14.6); White Blood Count 7.3 K/mm3 (4.4-11.0)
[2017-07-28 06:31] LABS: International Normalized Ratio 1.6; Prothrombin Time (Protime)PT. 19.2 SECONDS (11.7-14.9)
[2017-07-28 06:38] LABS: Prealbumin 13.6 mg/dL (20.0-40.0)
[2017-07-28 06:55] LABS: Scan Indicated on CBC? Y/N NO
--- NOTE | 2017-07-28 07:30 | THRO_PTH ---
PATIENT: JOÃO MUJICA LOC: [facility] U#:[id number] AGE/SX: 52/F ROOM: [facility] RE07/27/[address]: Dr. Mejia Wheeler DO : 1965 BED: 1 DIS: 08/05/2017 SPEC #: [id number] RECD: 07/28/17 10:27 STATUS: BENJA REQ #: [id number] DOREEN: 07/28/17 07:[address]: Jose L Mccollum DEPT: SURGICAL PATHOLOGY RECD BY: Charli Castañeda ENTERED: 07/28/17 10:37 SP TYPE: THROMBUS OTHR DR: MD Tor Arshad MD Dr. Lisa Malys, DO Tissues: BLOOD CLOT, NOS Procedures: Surgery Specimen Level III Comments: @ Ordering doctor for SUIII edited from to @ by RGOOD at 07/28/17 1237 @ Submitting doctor edited from to @ by RGOOD at 07/28/17 1237 HEADER OPERATION: Evacuation hematoma thigh PRE-OP DIAGNOSIS: Acute left thigh hematoma TISSUE SUBMITTED: Left anterolateral intramuscular hematoma tissue MICROSCOPIC DIAGNOSIS Left anterolateral intramuscular hematoma tissue: Skin with underlying adipose tissue and dense fibroconnective tissue with reactive changes, hemorrhage and blood clots, clinically intramuscular hematoma tissue. See comment. SJ:dimitri 07/29/17 COMMENT A few skeletal muscle fibers are noted in the deeper portion of the specimen. MICROSCOPIC DESCRIPTION Slides are reviewed. GROSS DESCRIPTION Received in fixative is one container labeled with the patient's name and designated anterolateral intramuscular hematoma. The specimen consists of a piece of skin with underlying tissue measuring 15 x 3 cm and up to 3 cm in thickness. Also present in the container are two pieces of soft tissue measuring in aggregate 8 x 2 x 0.3 cm. Also present in the container are multiple blood clots measuring in aggregate 13 x 12 x 6 cm. The skin surface is unremarkable. Sections do not reveal any mass lesion. Bilingual Call Center Representative sections are submitted in two cassettes. / SJ:dimitri 07/28/17 TC:5 CPT: 72819
--- NOTE | 2017-07-28 08:06 | NURSING ---
Report called to receiving KYE Nuñez in [place]. Martha FISHMAN
--- NOTE | 2017-07-28 09:58 | OP.PN_ITS ---
Immediate Post-Op Note Date of Procedure: 07/28/17 Primary Surgeon/Physician: Jose L Mccollum digital media planner: None Pre-Operative Diagnosis: 1. Traumatic hematoma left anterolateral thigh. 2. assisted use of Coumadin for mechanical heart valve. Post-Operative Diagnosis: 1. Traumatic intramuscular hematoma left anterolateral thigh (vastus lateralis muscle) (140 cm2). 2. Open surgical hematoma wound left anterolateral thigh with muscle involvement (vastus lateralis muscle). 3. 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 Surgery/Procedure Performed:: Surgical preparation left anterolateral thigh with incision and drainage and evacuation and excisional debridement traumatic intramuscular hematoma (vastus lateralis muscle), (140 cm2). Description of Surgical Findings:: The patient is a 52 year old F who is on Coumadin for a mechanical heart valve was walking her dog and fell on the sidewalk back on 07/24/17. She was seen in the ED and she underwent plain x-ray and a CT in which showed a hematoma. She was discharged home and recommended to follow-up with her primary care physician. When seen today, she complained of increasing pain and swelling in her left thigh and returned to the ED for further evaluation. She was admitted. She states she has been off her Coumadin for two days and her INR today was 1.8. Her WBC was 8.9. Her Hgb was 10.2. Back on 07/24/17, her Hgb was 11.9. She denies fever. I was asked to evaluate this patient for surgical options for treatment. , her left eye had become much more swollen tender and firm and she was referred back to the emergency room to get admitted for possible evacuation. Today the patient underwent surgical preparation left anterolateral thigh with incision and drainage and evacuation and excisional debridement traumatic intramuscular hematoma (vastus lateralis muscle), (140 cm2). Size of defect left anterolateral thigh - 20 x 7 x 4 cm. Estimated Blood Loss: 400 ml. Specimen's removed: Traumatic intramuscular hematoma left anterolateral thigh to Pathology and Microbiology. Drains: None. Type of Anesthesia:: General - Admit VTE Documentation VTE Present on Admission: No - patient is on Coumadin for a mechanical heart valve. VTE Mechan Device Prophylaxis: SCD's VTE Pharm Prophylaxis ordered?: Yes
--- NOTE | 2017-07-28 11:15 | CASEMGMT ---
As per Dr. Mccollum, pt may need short term SNF placement, states TCU may be a good option for this pt. PT/OT ordered. SW called Duyen in TCU and left a message. SW/CM will continue to follow(pt is off the floor at present), will speak w/pt when back to the floor and able to discuss discharge options--and will review to see if pt will qualify for SNF level of care. JUAN Craven, REGIONAL BUSINESS DEVELOPMENT MANAGER
[2017-07-28] MEDS: HYDROCHLOROTHIAZIDE 12.5 MG CAPSULE PO (11:59)
[2017-07-28] MEDS: Lisinopril 10 MG Tablet PO (11:59)
[2017-07-28] MEDS: Estradiol 0.5 MG Tablet PO (12:00)
--- NOTE | 2017-07-28 13:30 | PCM.PN.HOSP ---
Subjective: CC: Left thigh hematoma Objective: This is a 52-year-old female on Coumadin for mechanical aortic valve who fell at home and presented with a large left thigh hematoma, she underwent incision ,drainage , evacuation and excisional debridement of traumatic intramuscular hematoma . I saw her postoperatively she was alert and oriented to time place and person, she denies any chest pain , shortness of breath or palpitations. Vitals/I&O's: Vital Signs Temp Pulse Resp BP Pulse Ox 97.2 F L 104 H 17 122/63 H 98 07/28/17 12:42 07/28/17 13:23 07/28/17 12:42 07/28/17 12:42 07/28/17 12:42 Oxygen Flow Rate (L/min) 2 Oxygen Delivery Method Nasal Cannula Weight: 77.6 kg Body Mass Index (BMI) 29.3 Intake and Output for Last 24 Hours 07/26/17 07/27/17 07/28/17 23:59 23:59 23:59 Intake Total 100 / 100 1619 / 1619 Balance 100 / 100 1619 / 1619 General: Alert, Oriented x3 HEENT: Atraumatic Oral: Moist Mucosa Neck: Supple, No JVD Lungs: Clear to auscultation, No rhonchi Cardiovascular: Regular rate, Normal S1, Normal S2 Abdomen: Bowel Sounds Present Extremities: No edema Neurological: Cranial nerves II-XII grossly intact, Motor Exam 5/5 strength throughout Laboratory Results 07/27/17 14:00: Hgb 9.4 L, Hct 27.6 L 07/27/17 21:42: Hgb 8.8 L, Hct 26.2 L 07/27/17 21:42: Blood Type A POSITIVE, Antibody Screen NEGATIVE, Crossmatch See Detail 07/28/17 05:30: WBC 7.3, RBC 2.80 L, Hgb 8.6 L, Hct 25.8 L, MCV 92.1, MCH 30.7, MCHC 33.3, RDW 13.7, RDW Differential 44.0 H, Plt Count 232, MPV 9.4 07/28/17 05:30: PT 19.2 H, INR 1.6 07/28/17 05:30: Prealbumin 13.6 L Current Medications Alprazolam (Xanax) 0.25 mg PO TID PRN PRN Reason: ANXIETY Estradiol (Estradiol) 0.5 mg PO DAILYCM [facility] Last Admin: 07/28/17 12:00 Dose: 0.5 mg Estradiol (Estrace Vaginal Cream) 1 gm VAGINAL Q3D [facility] Hydrochlorothiazide (Hydrochlorothiazide) 12.5 mg PO DAILY [facility] Last Admin: 07/28/17 11:59 Dose: 12.5 mg Hydromorphone HCl (Dilaudid Inj) 1 mg IV Q2H PRN PRN PRN Reason: SEVERE PAIN (6-10/10) Last Admin: 07/28/17 11:53 Dose: 1 mg Cefazolin Sodium () 1 gm in 50 mls @ 100 mls/hr IV Q8 [facility] Last Admin: 07/28/17 06:05 Dose: 100 mls/hr Lisinopril (Zestril) 10 mg PO DAILY [facility] Last Admin: 07/28/17 11:59 Dose: 10 mg Magnesium Hydroxide (Milk Of Magnesia) 30 ml PO DAILY PRN PRN Reason: Constipation Nutritional Formula (Tha - [place] Flavor) 1 packet PO BIDCM [facility] Sodium Chloride () 5 - 30 ml IV UD PRN PRN Reason: SALINE FLUSH Last Admin: 07/28/17 11:53 Dose: 20 ml Warfarin Sodium (Coumadin (Pbkc)) 5 mg PO DAILY [facility] Medical Necessity - Tobacco Use Smoking Status: Never smoker Assessment/Plan All Active Problems (Last Reviewed 06/29/17 @ 13:24 by Shannon Mcneil) Screen for colon cancer (Acute) Thoracic aortic aneurysm (Resolved) Nonrheumatic aortic (valve) insufficiency (Resolved) Bicuspid aortic valve (Resolved) 1. Acute Left thigh hematoma following a fall in the setting of Coumadin coagulopathy; s/p hematoma evacuation today. She has a - 20 x 7 x 4 cm defect left anterolateral thigh, requiring wound VAC placement early next week. 2. Acute blood loss anemia; hgb is stable, will monitor H&H and transfuse if need be. 3. status post mechanical aortic valve replacement due to bicuspid aortic valve; we will restart anticoagulation with heparin , Coumadin will be restarted at 5P today. 4. Essential hypertension; we will continue her lisinopril/ hydrochlorothiazide. 5. I discussed discharge planning with case management and social workers, the patient with discharge to [facility] for post acute care rehabilitation. Code Visit Inpatient E&M: 40765 Subs Hosp L3
--- NOTE | 2017-07-28 13:34 | PN_ITS ---
Subjective: CC: Left thigh hematoma Objective: This is a 52-year-old female on Coumadin for mechanical aortic valve who fell at home and presented with a large left thigh hematoma, she underwent incision ,drainage , evacuation and excisional debridement of traumatic intramuscular hematoma . I saw her postoperatively she was alert and oriented to time place and person, she denies any chest pain , shortness of breath or palpitations. Vitals/I&O's: Vital Signs Temp Pulse Resp BP Pulse Ox 97.2 F L 104 H 17 122/63 H 98 07/28/17 12:42 07/28/17 13:23 07/28/17 12:42 07/28/17 12:42 07/28/17 12:42 Oxygen Flow Rate (L/min) 2 Oxygen Delivery Method Nasal Cannula Weight: 77.6 kg Body Mass Index (BMI) 29.3 Intake and Output for Last 24 Hours 07/26/17 07/27/17 07/28/17 23:59 23:59 23:59 Intake Total 100 / 100 1619 / 1619 Balance 100 / 100 1619 / 1619 General: Alert, Oriented x3 HEENT: Atraumatic Oral: Moist Mucosa Neck: Supple, No JVD Lungs: Clear to auscultation, No rhonchi Cardiovascular: Regular rate, Normal S1, Normal S2 Abdomen: Bowel Sounds Present Extremities: No edema Neurological: Cranial nerves II-XII grossly intact, Motor Exam 5/5 strength throughout Laboratory Results 07/27/17 14:00: Hgb 9.4 L, Hct 27.6 L 07/27/17 21:42: Hgb 8.8 L, Hct 26.2 L 07/27/17 21:42: Blood Type A POSITIVE, Antibody Screen NEGATIVE, Crossmatch See Detail 07/28/17 05:30: WBC 7.3, RBC 2.80 L, Hgb 8.6 L, Hct 25.8 L, MCV 92.1, MCH 30.7, MCHC 33.3, RDW 13.7, RDW Differential 44.0 H, Plt Count 232, MPV 9.4 07/28/17 05:30: PT 19.2 H, INR 1.6 07/28/17 05:30: Prealbumin 13.6 L Current Medications Alprazolam (Xanax) 0.25 mg PO TID PRN PRN Reason: ANXIETY Estradiol (Estradiol) 0.5 mg PO DAILYCM [facility] Last Admin: 07/28/17 12:00 Dose: 0.5 mg Estradiol (Estrace Vaginal Cream) 1 gm VAGINAL Q3D [facility] Hydrochlorothiazide (Hydrochlorothiazide) 12.5 mg PO DAILY [facility] Last Admin: 07/28/17 11:59 Dose: 12.5 mg Hydromorphone HCl (Dilaudid Inj) 1 mg IV Q2H PRN PRN PRN Reason: SEVERE PAIN (6-10/10) Last Admin: 07/28/17 11:53 Dose: 1 mg Cefazolin Sodium () 1 gm in 50 mls @ 100 mls/hr IV Q8 [facility] Last Admin: 07/28/17 06:05 Dose: 100 mls/hr Lisinopril (Zestril) 10 mg PO DAILY [facility] Last Admin: 07/28/17 11:59 Dose: 10 mg Magnesium Hydroxide (Milk Of Magnesia) 30 ml PO DAILY PRN PRN Reason: Constipation Nutritional Formula (Tha - [place] Flavor) 1 packet PO BIDCM [facility] Sodium Chloride () 5 - 30 ml IV UD PRN PRN Reason: SALINE FLUSH Last Admin: 07/28/17 11:53 Dose: 20 ml Warfarin Sodium (Coumadin (Pbkc)) 5 mg PO DAILY [facility] Medical Necessity - Tobacco Use Smoking Status: Never smoker Assessment/Plan All Active Problems (Last Reviewed 06/29/17 @ 13:24 by Shannon Mcneil) Screen for colon cancer (Acute) Thoracic aortic aneurysm (Resolved) Nonrheumatic aortic (valve) insufficiency (Resolved) Bicuspid aortic valve (Resolved) 1. Acute Left thigh hematoma following a fall in the setting of Coumadin coagulopathy; s/p hematoma evacuation today. She has a - 20 x 7 x 4 cm defect left anterolateral thigh, requiring wound VAC placement early next week. 2. Acute blood loss anemia; hgb is stable, will monitor H&H and transfuse if need be. 3. status post mechanical aortic valve replacement due to bicuspid aortic valve ; we will restart anticoagulation with heparin , Coumadin will be restarted at 5P today. 4. Essential hypertension; we will continue her lisinopril/ hydrochlorothiazide. 5. I discussed discharge planning with case management and social workers, the patient with discharge to [facility] for post acute care rehabilitation. Code Visit Inpatient E&M: 94541 Subs Hosp L3
[2017-07-28 14:24] LABS: Partial Thromboplast Time 40.6 Seconds (24.1-36.2)
[2017-07-28] MEDS: Heparin Injection 5,000 UNITS/ML Syringe 5000 UNITS IV (14:44)
--- NOTE | 2017-07-28 17:53 | OP.PCM_ITS ---
Report of Operation Date of Procedure: 07/28/17 Pre-Operative Diagnosis: 1. Traumatic hematoma left anterolateral thigh. 2. detention use of Coumadin for mechanical heart valve. Post-Operative Diagnosis: 1. Traumatic intramuscular hematoma left anterolateral thigh (vastus lateralis muscle) (140 cm2). 2. Open surgical hematoma wound left anterolateral thigh with muscle involvement (vastus lateralis muscle). 3. detention use of Coumadin for mechanical heart valve. Surgery/Procedure Performed:: Surgical preparation left anterolateral thigh with incision and drainage and evacuation and excisional debridement traumatic intramuscular hematoma (vastus lateralis muscle), (140 cm2). Description of Surgical Findings:: The patient is a 52 year old F who is on Coumadin for a mechanical heart valve was walking her dog and fell on the sidewalk back on 07/24/17. She was seen in the ED and she underwent plain x-ray and a CT in which showed a hematoma. She was discharged home and recommended to follow-up with her primary care physician. When seen today, she complained of increasing pain and swelling in her left thigh and returned to the ED for further evaluation. She was admitted. She states she has been off her Coumadin for two days and her INR today was 1.8. Her WBC was 8.9. Her Hgb was 10.2. Back on 07/24/17, her Hgb was 11.9. She denies fever. I was asked to evaluate this patient for surgical options for treatment. , her left eye had become much more swollen tender and firm and she was referred back to the emergency room to get admitted for possible evacuation. Patient was informed of the risks and complications of the procedure including alternatives to surgery. These were discussed with her personally. She voices understanding and wishes to proceed. Size of defect left anterolateral thigh - 20 x 7 x 4 cm. entry operator: None Type of Anesthesia:: General Specimen's removed: Traumatic intramuscular hematoma left anterolateral thigh to Pathology and Microbiology. Drains: None. Estimated Blood Loss (mL): 400 ml. Description of Procedure: Patient was taken to OR in supine position and was placed under general anesthesia. Her left thigh was prepped and draped in the usual fashion. SCD's were placed for DVT prophylaxis. Perioperative antibiotics were given intravenously. Most of the skin bruising was laterally. There was some firmness anteriorly. A longitudinal ellipse was marked out laterally. These markings were infiltrated with xylocaine with epinephrine. After waiting 5 minutes for the anesthetic to take effect, a longitudinal elliptical incision was made laterally. Dissection was carried down to the muscular fascia. No bleeding was noted in the subcutaneous tissue. The tensor fascia angelina was incised to get exposure to the vastus lateralis muscle and fascia. There was some injury to the vastus lateralis muscle. The muscle was firm. A fasciotomy was performed and the vastus lateralis muscle bulged out. It appeared viable. Where the muscle injury was, further dissection was done to get to the depth of the muscular injury. At this point a large intramuscular hematoma was noted. The hematoma extended down to the femur. The firmness that was palpable anteriorly was an anterior extension of the hematoma. After the hematoma was evacuated, the firmness anteriorly had softened. No acute bleeding was seen as the hematoma was all clot. About 400 ml of clot was removed from the wound. Some of the clot and surrounding tissue was sent to Microbiology for culture and the rest was sent to Pathology for analysis. A positive culture will necessitate antibiotic therapy. The wound was then copiously irrigated with saline. Some edges of the wound was cauterized. Some of the injured vastus lateralis muscle was cauterized as well to get hemostasis. The size of the defect after incision and drainage and evacuation and excisional debridement was 20 x 7 x 4 cm or 140 cm2. The wound was then packed with Kerlix gauze with Betadine all the way down to the femur bone. The cavity was large enough for my fist. A dry Kerlix gauze was then applied followed by abd pads for a compression dressing. This was then reinforced with compression SKYLA wrap. Because of the depth of the wound to the bone, will not be able to apply the VAC for a few days. Will proceed with daily Betadine Kerlix gauze dressing changes and consider placement of the VAC on Tuesday. Anticipate increased pain with the dressing changes and going home at discharge will be overwhelming. I think she should be evaluated for an ECF at discharge for a few weeks before going home. Anticipate increased metabolic demands from the large wound. Will check a Prealbumin and encourage nutritional supplementation with protein to help the healing process. After discharge, will followup at the [facility]ound Center. Grafts/Implants Used: None. - Complications None. - Admit VTE Documentation VTE Present on Admission: No - patient is on Coumadin for a mechanical heart valve. VTE Mechan Device Prophylaxis: SCD's VTE Pharm Prophylaxis ordered?: Yes Code Visit Surgery Charges CPT - 03152 ICD-10 - S70.12xA, Z79.01 82667 S71.002A, S70.12xA, Z79.01 85914 S71.002A, S70.12xA, Z79.01
[2017-07-28 22:09] LABS: Partial Thromboplast Time 161.4 Seconds (24.1-36.2)
[2017-07-29] VITALS (13 sets, daily range): BP systolic 98–130; BP diastolic 53–57; PULSE 71–113; RESP 14–18; TEMP 36.2–37.2; O2SAT 93–98
[2017-07-29] MEDS: Cefazolin 1 GM/50 ML BAG IV ×4 (00:56→22:42)
[2017-07-29] MEDS: HYDROmorphone 1 MG/ML Syringe IV ×4 (01:02→11:03)
[2017-07-29 02:53] LABS: Hematocrit 29.3 % (37-47); Hemoglobin 10.1 g/dl (12.0-15.0); Mean Corp Hgb Conc 34.5 g/gl (32-36); Mean Corpuscular Hgb 30.2 pg (27.0-32.0); Mean Corpuscular Volume 87.7 fL (81-99); Mean Platelet Vol. 9.5 fl (6.2-12.0); Platelet Count 260 K/mm3 (150-450); RBC Distribution Width CV 13.8 % (11.6-14.6); RBC Distribution Width SD 41.7 fl (35.1-43.9); Red Blood Count 3.34 M/mm3 (4.2-5.4); White Blood Count 11.5 K/mm3 (4.4-11.0)
[2017-07-29 02:55] LABS: Scan Indicated on CBC? Y/N NO
[2017-07-29 03:04] LABS: Anion Gap 5 (5-15); BUN 16 mg/dL (7-18); BUN/Creat Ratio 27.1 RATIO (10-20); Calcium,Total 8.6 mg/dL (8.5-10.1); Chloride 100 mmol/L (98-107); Creatinine, Serum 0.59 mg/dL (0.55-1.02); EST Glomerular Filtration Rate 114 mL/min (>60); Est Glom Filt Rate - Afr Amer 138 mL/min (>60); Estimated Creatinine Clearance 96.32 ml/min; Glucose 119 mg/dL (74-106); Potassium 3.9 mmol/L (3.5-5.1); Sodium Level 135 mmol/L (136-145)
[2017-07-29 03:05] LABS: Partial Thromboplast Time 68.3 Seconds (24.1-36.2)
[2017-07-29 03:11] LABS: International Normalized Ratio 1.3; Prothrombin Time (Protime)PT. 16.5 SECONDS (11.7-14.9)
--- NOTE | 2017-07-29 04:59 | PCM.HOSP.N ---
Hospitalist Note Notified by nursing patient was complaining of increased pain in her leg. Went to evaluate the patient and she was in no acute distress. I did not review the Jethro wrap nor evaluate the wound itself but distally patient had no no calf swelling no brawny edema. Pulses are intact and sensation was intact. Patient did have a very extensive surgery so I feel that patient is having significant pain associated with that clinically she is not septic syndrome feel that there is any new infection occurring and I do not feel the patient is having DVT as patient is currently anticoagulated and was on anticoagulation prior to surgery too. No evidence of any compartment syndrome at this time. Discussed with patient and advised patient if she does notice changes in her leg such as decreased sensation or increased pain in the wound or fever and chills to let staff know immediately.
[2017-07-29] MEDS: Estradiol 0.5 MG Tablet PO (08:10)
[2017-07-29 09:28] LABS: Partial Thromboplast Time 58.2 Seconds (24.1-36.2)
--- NOTE | 2017-07-29 09:38 | CASEMGMT ---
SW met with patient as physician indicated she will need to go to a penitentiary. Patient lives with her in a 1.5 story home. 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 Her also works multimedia teacher. She is independent. At this time she does not think she will need to go to a penitentiary. CARY told her we will follow and assist with whatever is needed. Ana Paula CAMPBELL MSW
[2017-07-29] MEDS: 0.9% NaCl Peripheral Flush Adult/Peds IV ×2 (10:21→11:03)
--- NOTE | 2017-07-29 11:32 | PCM.PN.SRG ---
Subjective: Postop #1 Dressing change was very painful today. Needed IV analgesia. - Physical Exam General: Alert, Oriented x3 HEENT: PERRLA, EOMI Neck: Supple Skin: Ulcer/ Wound - Betadine compression dressing change done today. Very painful. Needed IV analgesia. No deeper bleeding seen. Some oozing at the skin edges noted that was controlled with silver nitrate chemical cauterization. Neurological: Cranial nerves II-XII grossly intact Psych/Mental Status: Normal Affect, Appropriate Vital Signs Temp Pulse Resp BP Pulse Ox 97.5 F L 83 16 101/55 L 96 07/29/17 10:00 07/29/17 10:00 07/29/17 10:00 07/29/17 10:00 07/29/17 10:00 Oxygen Flow Rate (L/min) 2 Oxygen Delivery Method Room Air Weight: 171 lb 1.259 oz Body Mass Index (BMI) 29.3 Intake and Output for Last 24 Hours 07/27/17 07/28/17 07/29/17 23:59 23:59 23:59 Intake Total 100 / 100 3180 / 3180 808 / 808 Balance 100 / 100 3180 / 3180 808 / 808 Microbiology Past 72 Hours 07/28/17 10:00 Gram Stain - Final Tissue - Leg, Left Wound Culture - Preliminary No growth-Final to follow Laboratory Tests Past 24 Hrs 07/27/17 07/28/17 07/28/17 21:42 14:00 21:15 WBC RBC Hgb Hct MCV MCH MCHC RDW RDW Differential Plt Count MPV PT INR APTT 40.6 H 161.4 H* Sodium Potassium Chloride Carbon Dioxide Anion Gap BUN Creatinine Estim Creat Clear Calc Est GFR (MDRD) Af Amer Est GFR (MDRD) Non-Af BUN/Creatinine Ratio Glucose Calcium Blood Type A POSITIVE Antibody Screen NEGATIVE Crossmatch See Detail 07/29/17 07/29/17 07/29/17 02:30 02:30 02:30 WBC 11.5 H RBC 3.34 L Hgb 10.1 L Hct 29.3 L MCV 87.7 MCH 30.2 MCHC 34.5 RDW 13.8 RDW Differential 41.7 Plt Count 260 MPV 9.5 PT 16.5 H INR 1.3 APTT Sodium 135 L Potassium 3.9 Chloride 100 Carbon Dioxide 30.0 Anion Gap 5 BUN 16 Creatinine 0.59 Estim Creat Clear Calc 96.32 Est GFR (MDRD) Af Amer 138 Est GFR (MDRD) Non-Af 114 BUN/Creatinine Ratio 27.1 H Glucose 119 H Calcium 8.6 Blood Type Antibody Screen Crossmatch 07/29/17 07/29/17 02:30 08:35 WBC RBC Hgb Hct MCV MCH MCHC RDW RDW Differential Plt Count MPV PT INR APTT 68.3 H 58.2 H Sodium Potassium Chloride Carbon Dioxide Anion Gap BUN Creatinine Estim Creat Clear Calc Est GFR (MDRD) Af Amer Est GFR (MDRD) Non-Af BUN/Creatinine Ratio Glucose Calcium Blood Type Antibody Screen Crossmatch Medical Necessity - Tobacco Use Smoking Status: Never smoker Assessment/Plan All Active Problems (Last Reviewed 06/29/17 @ 13:24 by Shannon Mcneil) Screen for colon cancer (Acute) Thoracic aortic aneurysm (Resolved) Nonrheumatic aortic (valve) insufficiency (Resolved) Bicuspid aortic valve (Resolved) 1. Traumatic intramuscular hematoma left anterolateral thigh (vastus lateralis muscle) (140 cm2). 2. prison use of Coumadin for mechanical heart valve. 3. s/p surgical preparation left anterolateral thigh with incision and drainage and evacuation and excisional debridement traumatic intramuscular hematoma (vastus lateralis muscle), (140 cm2). Betadine compression dressing change done today. Very painful. Needed IV analgesia. Will increase the dose. Will also add Valium for muscle spasm. Will continue Betadine compression dressings this weekend. Will attempt the VAC on Tuesday.CT reviewed. Hgb improved to 10.1 after the PRBC. Operative culture pending thus far. Will continue the Ancef. Prealbumin was 13.6. Encourage nutritional supplementation with protein to help the healing process. Patient is back on her anticoagulation with Heparin and will transition to Coumadin. PT evaluation in process. It will be difficult for her to go home initially secondary to the complexity of the wound. ECF evaluation in process. After discharge, can followup at the [facility]ound Center. Later on if there is a plateau in the healing process, can proceed with delayed closure with skin grafting.
[2017-07-29] MEDS: diazePAM 5 MG Tablet PO ×2 (12:07→17:03)
[2017-07-29] MEDS: oxyCODONE 5 MG Tablet PO ×3 (12:07→22:47)
[2017-07-29] MEDS: Silver Nitrate (BKC) 1 EACH TOPICAL (17:02)
--- NOTE | 2017-07-29 17:35 | PCM.PN.HOSP ---
Subjective: CC: Status post left thigh hematoma evacuation. Objective: Patient experienced significant pain in the left leg yesterday, no reaccumulation of hematoma by wound inspection today. Vitals/I&O's: Vital Signs Temp Pulse Resp BP Pulse Ox 98.3 F 71 14 104/57 L 98 07/29/17 16:45 07/29/17 16:45 07/29/17 16:45 07/29/17 16:45 07/29/17 16:45 Oxygen Flow Rate (L/min) 2 Oxygen Delivery Method Room Air Weight: 77.6 kg Body Mass Index (BMI) 29.3 Intake and Output for Last 24 Hours 07/27/17 07/28/17 07/29/17 23:59 23:59 23:59 Intake Total 100 / 100 3180 / 3180 1288 / 1288 Balance 100 / 100 3180 / 3180 1288 / 1288 General: Alert, Oriented x3 Neck: Supple Lungs: Clear to auscultation Cardiovascular: Regular rate, Normal S1, Normal S2 Abdomen: Bowel Sounds Present, Soft, Non Tender Neurological: Cranial nerves II-XII grossly intact, Motor Exam 5/5 strength throughout Microbiology Past 72 Hours 07/28/17 10:00 Tissue - Leg, Left Gram Stain - Final 07/28/17 10:00 Tissue - Leg, Left Wound Culture - Preliminary No growth-Final to follow Laboratory Results 07/27/17 21:42: Blood Type A POSITIVE, Antibody Screen NEGATIVE, Crossmatch See Detail 07/28/17 21:15: APTT 161.4 H* 07/29/17 02:30: WBC 11.5 H, RBC 3.34 L, Hgb 10.1 L, Hct 29.3 L, MCV 87.7, MCH 30.2, MCHC 34.5, RDW 13.8, RDW Differential 41.7, Plt Count 260, MPV 9.5 07/29/17 02:30: PT 16.5 H, INR 1.3 07/29/17 02:30: Sodium 135 L, Potassium 3.9, Chloride 100, Carbon Dioxide 30.0, Anion Gap 5, BUN 16, Creatinine 0.59, Estim Creat Clear Calc 96.32, Est GFR (MDRD) Af Amer 138, Est GFR (MDRD) Non-Af 114, BUN/Creatinine Ratio 27.1 H, Glucose 119 H, Calcium 8.6 07/29/17 02:30: APTT 68.3 H 07/29/17 08:35: APTT 58.2 H Current Medications Alprazolam (Xanax) 0.25 mg PO TID PRN PRN Reason: ANXIETY Diazepam (Valium) 5 mg PO Q6 [facility] Last Admin: 07/29/17 17:03 Dose: 5 mg [facility]adiol ([facility]) [facility] Last Admin: 07/29/17 08:10 Dose: 0.5 mg Heparin Sodium (Porcine) () 0 units IV UD PRN PRN Reason: Protocol Hydrochlorothiazide (Hydrochlorothiazide) 12.5 mg PO DAILY [facility] Last Admin: 07/29/17 14:16 Dose: Not Given Hydromorphone HCl (Dilaudid Inj) 2 mg IV Q2H PRN PRN PRN Reason: SEVERE PAIN (6-10/10) Cefazolin Sodium () 1 gm in 50 mls @ 100 mls/hr IV Q8 [facility] Last Admin: 07/29/17 14:18 Dose: 100 mls/hr Heparin Sodium/Sodium Chloride () 25,000 unit in 250 mls @ 11 mls/hr IV .[id number] [facility]; As Directed PRN Reason: Protocol Last Admin: 07/28/17 14:52 Dose: 11 mls/hr Lisinopril (Zestril) 10 mg PO DAILY [facility] Last Admin: 07/29/17 14:17 Dose: Not Given Magnesium Hydroxide (Milk Of Magnesia) 30 ml PO DAILY PRN PRN Reason: Constipation Nutritional Formula (Tha - [place] Flavor) [facility] Last Admin: 07/29/17 17:02 Dose: 1 packet Oxycodone HCl (Oxyir) 5 - 10 mg PO Q4H PRN PRN PRN Reason: SEVERE PAIN (6-10/10) Last Admin: 07/29/17 12:07 Dose: 10 mg Silver Nitrate/Potassium Nitrate (Silver Nitrate (Bkc)) 1 each TOPICAL X1 PRN; Protocol PRN Reason: BLEEDING Last Admin: 07/29/17 17:02 Dose: 1 each Sodium Chloride () 5 - 30 ml IV UD PRN PRN Reason: SALINE FLUSH Last Admin: 07/29/17 11:03 Dose: 10 ml Warfarin Sodium (Coumadin (Pbkc)) 5 mg PO DAILY@1700 [facility]AJ Last Admin: 07/29/17 17:03 Dose: 5 mg Medical Necessity - Tobacco Use Smoking Status: Never smoker Assessment/Plan All Active Problems (Last Reviewed 06/29/17 @ 13:24 by Shannon Mcneil) Screen for colon cancer (Acute) Thoracic aortic aneurysm (Resolved) Nonrheumatic aortic (valve) insufficiency (Resolved) Bicuspid aortic valve (Resolved) 1. Acute Left thigh hematoma following a fall in the setting of Coumadin coagulopathy; s/p hematoma evacuation on 07/28/17.. She has a - 20 x 7 x 4 cm defect left anterolateral thigh, a wound VAC device to be placed early next week. 2. Acute blood loss anemia; hgb is stable after a unit of PRBCs. 3. status post mechanical aortic valve replacement due to bicuspid aortic ; she is on heparin drip , Coumadin has been restarted , we will check INR daily. 4. Essential hypertension; she is on lisinopril/ hydrochlorothiazide. 5. I discussed discharge planning with case management and social workers, the patient with discharge to [facility] for post acute care rehabilitation. Code Visit Inpatient E&M: 99133 Subs Hosp L3
--- NOTE | 2017-07-29 17:39 | PN_ITS ---
Subjective: CC: Status post left thigh hematoma evacuation. Objective: Patient experienced significant pain in the left leg yesterday, no reaccumulation of hematoma by wound inspection today. Vitals/I&O's: Vital Signs Temp Pulse Resp BP Pulse Ox 98.3 F 71 14 104/57 L 98 07/29/17 16:45 07/29/17 16:45 07/29/17 16:45 07/29/17 16:45 07/29/17 16:45 Oxygen Flow Rate (L/min) 2 Oxygen Delivery Method Room Air Weight: 77.6 kg Body Mass Index (BMI) 29.3 Intake and Output for Last 24 Hours 07/27/17 07/28/17 07/29/17 23:59 23:59 23:59 Intake Total 100 / 100 3180 / 3180 1288 / 1288 Balance 100 / 100 3180 / 3180 1288 / 1288 General: Alert, Oriented x3 Neck: Supple Lungs: Clear to auscultation Cardiovascular: Regular rate, Normal S1, Normal S2 Abdomen: Bowel Sounds Present, Soft, Non Tender Neurological: Cranial nerves II-XII grossly intact, Motor Exam 5/5 strength throughout Microbiology Past 72 Hours 07/28/17 10:00 Tissue - Leg, Left Gram Stain - Final 07/28/17 10:00 Tissue - Leg, Left Wound Culture - Preliminary No growth-Final to follow Laboratory Results 07/27/17 21:42: Blood Type A POSITIVE, Antibody Screen NEGATIVE, Crossmatch See Detail 07/28/17 21:15: APTT 161.4 H* 07/29/17 02:30: WBC 11.5 H, RBC 3.34 L, Hgb 10.1 L, Hct 29.3 L, MCV 87.7, MCH 30.2, MCHC 34.5, RDW 13.8, RDW Differential 41.7, Plt Count 260, MPV 9.5 07/29/17 02:30: PT 16.5 H, INR 1.3 07/29/17 02:30: Sodium 135 L, Potassium 3.9, Chloride 100, Carbon Dioxide 30.0, Anion Gap 5, BUN 16, Creatinine 0.59, Estim Creat Clear Calc 96.32, Est GFR ( MDRD) Af Amer 138, Est GFR (MDRD) Non-Af 114, BUN/Creatinine Ratio 27.1 H, Glucose 119 H, Calcium 8.6 07/29/17 02:30: APTT 68.3 H 07/29/17 08:35: APTT 58.2 H Current Medications Alprazolam (Xanax) 0.25 mg PO TID PRN PRN Reason: ANXIETY Diazepam (Valium) 5 mg PO Q6 [facility] Last Admin: 07/29/17 17:03 Dose: 5 mg Estradiol (Estradiol) [facility] Last Admin: 07/29/17 08:10 Dose: 0.5 mg Heparin Sodium (Porcine) () 0 units IV UD PRN PRN Reason: Protocol Hydrochlorothiazide (Hydrochlorothiazide) 12.5 mg PO DAILY [facility] Last Admin: 07/29/17 14:16 Dose: Not Given Hydromorphone HCl (Dilaudid Inj) 2 mg IV Q2H PRN PRN PRN Reason: SEVERE PAIN (6-10/10) Cefazolin Sodium () 1 gm in 50 mls @ 100 mls/hr IV Q8 [facility] Last Admin: 07/29/17 14:18 Dose: 100 mls/hr Heparin Sodium/Sodium Chloride () 25,000 unit in 250 mls @ 11 mls/hr IV .[id number] [facility]; As Directed PRN Reason: Protocol Last Admin: 07/28/17 14:52 Dose: 11 mls/hr Lisinopril (Zestril) 10 mg PO DAILY [facility] Last Admin: 07/29/17 14:17 Dose: Not Given Magnesium Hydroxide (Milk Of Magnesia) 30 ml PO DAILY PRN PRN Reason: Constipation Nutritional Formula (Tha - [place] Flavor) [facility] Last Admin: 07/29/17 17:02 Dose: 1 packet Oxycodone HCl (Oxyir) 5 - 10 mg PO Q4H PRN PRN PRN Reason: SEVERE PAIN (6-10/10) Last Admin: 07/29/17 12:07 Dose: 10 mg Silver Nitrate/Potassium Nitrate (Silver Nitrate (Bkc)) 1 each TOPICAL X1 PRN; Protocol PRN Reason: BLEEDING Last Admin: 07/29/17 17:02 Dose: 1 each Sodium Chloride () 5 - 30 ml IV UD PRN PRN Reason: SALINE FLUSH Last Admin: 07/29/17 11:03 Dose: 10 ml Warfarin Sodium (Coumadin (Pbkc)) 5 mg PO DAILY@1700 PUJA Last Admin: 07/29/17 17:03 Dose: 5 mg Medical Necessity - Tobacco Use Smoking Status: Never smoker Assessment/Plan All Active Problems (Last Reviewed 06/29/17 @ 13:24 by Shannon Mcneil) Screen for colon cancer (Acute) Thoracic aortic aneurysm (Resolved) Nonrheumatic aortic (valve) insufficiency (Resolved) Bicuspid aortic valve (Resolved) 1. Acute Left thigh hematoma following a fall in the setting of Coumadin coagulopathy; s/p hematoma evacuation on 07/28/17.. She has a - 20 x 7 x 4 cm defect left anterolateral thigh, a wound VAC device to be placed early next week. 2. Acute blood loss anemia; hgb is stable after a unit of PRBCs. 3. status post mechanical aortic valve replacement due to bicuspid aortic ; she is on heparin drip , Coumadin has been restarted , we will check INR daily. 4. Essential hypertension; she is on lisinopril/ hydrochlorothiazide. 5. I discussed discharge planning with case management and social workers, the patient with discharge to [facility] for post acute care rehabilitation. Code Visit Inpatient E&M: 39246 Subs Hosp L3
[2017-07-29] MEDS: HYDROmorphone 1 MG/ML Syringe 2 MG IV (19:58)
[2017-07-30] VITALS (11 sets, daily range): BP systolic 97–114; BP diastolic 57–65; PULSE 80–100; RESP 16; TEMP 36.9–37.7; O2SAT 95–100
[2017-07-30] MEDS: diazePAM 5 MG Tablet PO ×4 (00:28→17:15)
[2017-07-30] MEDS: oxyCODONE 5 MG Tablet PO ×5 (03:11→19:33)
[2017-07-30] MEDS: Cefazolin 1 GM/50 ML BAG IV ×3 (06:03→21:17)
[2017-07-30 06:38] LABS: Hematocrit 29.5 % (37-47); Hemoglobin 9.9 g/dl (12.0-15.0); Mean Corp Hgb Conc 33.6 g/gl (32-36); Mean Corpuscular Volume 89.4 fL (81-99); Mean Platelet Vol. 9.2 fl (6.2-12.0); Platelet Count 236 K/mm3 (150-450); RBC Distribution Width CV 14.6 % (11.6-14.6); RBC Distribution Width SD 46.9 fl (35.1-43.9); White Blood Count 7.1 K/mm3 (4.4-11.0)
[2017-07-30 06:39] LABS: Scan Indicated on CBC? Y/N NO
[2017-07-30 06:43] LABS: International Normalized Ratio 1.3; Prothrombin Time (Protime)PT. 16.3 SECONDS (11.7-14.9)
[2017-07-30] MEDS: Estradiol 0.5 MG Tablet PO (08:52)
[2017-07-30] MEDS: HYDROmorphone 1 MG/ML Syringe 2 MG IV ×2 (10:26→21:17)
[2017-07-30] MEDS: 0.9% NaCl Peripheral Flush Adult/Peds IV ×4 (10:31→21:17)
--- NOTE | 2017-07-30 10:54 | PN.SURG_ITS ---
Subjective: Postop #2 Patient has wound pain. Betadine dressing change today. Not as painful as yesterday but still needed IV analgesia. - Physical Exam General: Alert, Oriented x3 HEENT: PERRLA, EOMI Neck: Supple Skin: Ulcer/ Wound - left thigh wound is stable. Some staining on the dressing. Combination of betadine and serosanguinous drainage. No active bleeding seen. Betadine dressing change done today. Still painful. Still needs IV analgesia. Muscle is viable. Neurological: Cranial nerves II-XII grossly intact Psych/Mental Status: Normal Affect, Appropriate Vital Signs Temp Pulse Resp BP Pulse Ox 98.7 F 87 16 97/57 L 95 07/30/17 04:40 07/30/17 07:05 07/30/17 04:40 07/30/17 04:40 07/30/17 08:04 Oxygen Flow Rate (L/min) 2 Oxygen Delivery Method Room Air Weight: 171 lb 1.259 oz Body Mass Index (BMI) 29.3 Intake and Output for Last 24 Hours 07/28/17 07/29/17 07/30/17 23:59 23:59 23:59 Intake Total 3180 / 3180 1768 / 1768 191 / 191 Balance 3180 / 3180 1768 / 1768 191 / 191 Microbiology Past 72 Hours 07/28/17 10:00 Gram Stain - Final Tissue - Leg, Left Wound Culture - Preliminary No growth-Final to follow Anaerobic Culture - Preliminary No growth in 48 hours. Laboratory Tests Past 24 Hrs 07/30/17 07/30/17 05:35 05:35 WBC 7.1 RBC 3.30 L Hgb 9.9 L Hct 29.5 L MCV 89.4 MCH 30.0 MCHC 33.6 RDW 14.6 RDW Differential 46.9 H Plt Count 236 MPV 9.2 PT 16.3 H INR 1.3 APTT 51.0 H Medical Necessity - Tobacco Use Smoking Status: Never smoker Assessment/Plan All Active Problems (Last Reviewed 06/29/17 @ 13:24 by Shannon Mcneil) Open wound of left hip and thigh with complication (Acute) Traumatic hematoma of left thigh (Acute) Screen for colon cancer (Acute) Thoracic aortic aneurysm (Resolved) Nonrheumatic aortic (valve) insufficiency (Resolved) Bicuspid aortic valve (Resolved) 1. Traumatic intramuscular hematoma left anterolateral thigh (vastus lateralis muscle) (140 cm2). 2. custodial use of Coumadin for mechanical heart valve. 3. s/p surgical preparation left anterolateral thigh with incision and drainage and evacuation and excisional debridement traumatic intramuscular hematoma (vastus lateralis muscle), (140 cm2). Betadine compression dressing change done today. Still painful. Needed IV analgesia. The increased dose has been helpful. The Valium for muscle spasm has been helpful. Will continue Betadine compression dressings this weekend. Will attempt the VAC on Tuesday. Hgb stable at 9.9 (from 10.1) after the PRBC. Operative culture negative thus far. Will continue the Ancef. Prealbumin was 13.6. Encourage nutritional supplementation with protein to help the healing process. Patient is back on her anticoagulation with Heparin and will transition to Coumadin. PT evaluation in process. It will be difficult for her to go home initially secondary to the complexity of the wound. ECF evaluation in process. After discharge, can followup at the Wound Center. Later on if there is a plateau in the healing process, can proceed with delayed closure with skin grafting.
[2017-07-30] MEDS: HYDROCHLOROTHIAZIDE 12.5 MG CAPSULE PO (10:56)
[2017-07-30] MEDS: Lisinopril 10 MG Tablet PO (10:56)
--- NOTE | 2017-07-30 18:16 | PN_ITS ---
Subjective: CC: Status post left thigh hematoma evacuation. Objective: Patient reports improved pain in the left thigh, she denies any fever or chills. No chest pain shortness of breath or palpitations. Vitals/I&O's: Vital Signs Temp Pulse Resp BP Pulse Ox 98.4 F 98 16 108/64 100 07/30/17 15:36 07/30/17 15:36 07/30/17 15:36 07/30/17 15:36 07/30/17 15:36 Oxygen Flow Rate (L/min) 2 Oxygen Delivery Method Room Air Weight: 77.6 kg Body Mass Index (BMI) 29.3 Intake and Output for Last 24 Hours 07/28/17 07/29/17 07/30/17 23:59 23:59 23:59 Intake Total 3180 / 3180 1768 / 1768 579 / 579 Balance 3180 / 3180 1768 / 1768 579 / 579 General: Alert, Oriented x3 HEENT: Atraumatic Oral: Moist Mucosa Neck: Supple Lungs: Clear to auscultation Cardiovascular: Regular rate, Normal S1, Normal S2 Musculoskeletal: - Neurological: Cranial nerves II-XII grossly intact, Motor Exam 5/5 strength throughout Psych/Mental Status: Normal Affect Microbiology Past 72 Hours 07/28/17 10:00 Tissue - Leg, Left Gram Stain - Final 07/28/17 10:00 Tissue - Leg, Left Wound Culture - Preliminary No growth-Final to follow 07/28/17 10:00 Tissue - Leg, Left Anaerobic Culture - Preliminary No growth in 48 hours. Laboratory Results 07/30/17 05:35: WBC 7.1, RBC 3.30 L, Hgb 9.9 L, Hct 29.5 L, MCV 89.4, MCH 30.0, MCHC 33.6, RDW 14.6, RDW Differential 46.9 H, Plt Count 236, MPV 9.2 07/30/17 05:35: PT 16.3 H, INR 1.3, APTT 51.0 H Current Medications Alprazolam (Xanax) 0.25 mg PO TID PRN PRN Reason: ANXIETY Diazepam (Valium) 5 mg PO Q6 [facility] Last Admin: 07/30/17 17:15 Dose: 5 mg Estradiol (Estradiol) 0.5 mg PO DAILYCM [facility] Last Admin: 07/30/17 08:52 Dose: 0.5 mg Heparin Sodium (Porcine) () 0 units IV UD PRN PRN Reason: Protocol Hydrochlorothiazide (Hydrochlorothiazide) 12.5 mg PO DAILY [facility] Last Admin: 07/30/17 10:56 Dose: 12.5 mg Hydromorphone HCl (Dilaudid Inj) 2 mg IV Q2H PRN PRN PRN Reason: SEVERE PAIN (6-10/10) Last Admin: 07/30/17 10:26 Dose: 2 mg Cefazolin Sodium () 1 gm in 50 mls @ 100 mls/hr IV Q8 [facility] Last Admin: 07/30/17 14:22 Dose: 100 mls/hr Heparin Sodium/Sodium Chloride () 25,000 unit in 250 mls @ 11 mls/hr IV .[id number] [facility]; As Directed PRN Reason: Protocol Last Admin: 07/30/17 14:15 Dose: Not Given Lisinopril (Zestril) 10 mg PO DAILY [facility] Last Admin: 07/30/17 10:56 Dose: 10 mg Magnesium Hydroxide (Milk Of Magnesia) 30 ml PO DAILY PRN PRN Reason: Constipation Nutritional Formula (Tha - [place] Flavor) 1 packet PO BIDCM [facility] Last Admin: 07/30/17 17:13 Dose: 1 packet Oxycodone HCl (Oxyir) 5 - 10 mg PO Q4H PRN PRN PRN Reason: SEVERE PAIN (6-10/10) Last Admin: 07/30/17 15:35 Dose: 10 mg Silver Nitrate/Potassium Nitrate (Silver Nitrate (Bkc)) 1 each TOPICAL X1 PRN; Protocol PRN Reason: BLEEDING Last Admin: 07/29/17 17:02 Dose: 1 each Sodium Chloride () 5 - 30 ml IV UD PRN PRN Reason: SALINE FLUSH Last Admin: 07/30/17 14:22 Dose: 10 ml Warfarin Sodium (Coumadin (Pbkc)) 5 mg PO DAILY@1700 [facility] Last Admin: 07/30/17 17:13 Dose: 5 mg Medical Necessity - Tobacco Use Smoking Status: Never smoker Assessment/Plan All Active Problems (Last Reviewed 06/29/17 @ 13:24 by Shannon Mcneil) Open wound of left hip and thigh with complication (Acute) Traumatic hematoma of left thigh (Acute) Screen for colon cancer (Acute) Thoracic aortic aneurysm (Resolved) Nonrheumatic aortic (valve) insufficiency (Resolved) Bicuspid aortic valve (Resolved) 1. Acute Left thigh hematoma following a fall in the setting of Coumadin coagulopathy; s/p hematoma evacuation on 07/28/17.. She has a - 20 x 7 x 4 cm defect left anterolateral thigh, a wound VAC device to be placed on Tuesday. 2. Acute blood loss anemia; hgb is stable after a unit of PRBCs. 3. status post mechanical aortic valve replacement due to bicuspid aortic ; she is on heparin drip , Coumadin has been restarted , we will check INR daily. 4. Essential hypertension; she is on lisinopril/ hydrochlorothiazide. 5. I discussed discharge planning with case management and social workers, the patient with [facility] to [facility] for post acute care rehabilitation. Code Visit Inpatient E&M: 05759 Subs Hosp L2
[2017-07-31] VITALS (12 sets, daily range): BP systolic 102–116; BP diastolic 59–68; PULSE 79–103; RESP 16; TEMP 36.7–37.6; O2SAT 96–97
[2017-07-31] MEDS: diazePAM 5 MG Tablet PO ×5 (00:35→23:43)
[2017-07-31] MEDS: oxyCODONE 5 MG Tablet PO ×4 (03:12→19:29)
[2017-07-31] MEDS: 0.9% NaCl Peripheral Flush Adult/Peds IV ×3 (05:50→21:08)
[2017-07-31] MEDS: Cefazolin 1 GM/50 ML BAG IV ×3 (05:50→21:08)
[2017-07-31] MEDS: Magnesium Hydroxide 30 ML UDC PO (05:51)
[2017-07-31 06:49] LABS: Hematocrit 29.7 % (37-47); Hemoglobin 9.8 g/dl (12.0-15.0); Mean Corpuscular Hgb 29.4 pg (27.0-32.0); Mean Corpuscular Volume 89.2 fL (81-99); Platelet Count 253 K/mm3 (150-450); RBC Distribution Width CV 14.2 % (11.6-14.6); RBC Distribution Width SD 45.8 fl (35.1-43.9); Red Blood Count 3.33 M/mm3 (4.2-5.4); White Blood Count 6.4 K/mm3 (4.4-11.0)
[2017-07-31 07:03] LABS: Scan Indicated on CBC? Y/N NO
[2017-07-31 07:07] LABS: International Normalized Ratio 1.4; Prothrombin Time (Protime)PT. 16.9 SECONDS (11.7-14.9)
[2017-07-31] MEDS: Estradiol 0.5 MG Tablet PO (08:21)
[2017-07-31] MEDS: Lisinopril 10 MG Tablet PO (10:33)
[2017-07-31] MEDS: HYDROCHLOROTHIAZIDE 12.5 MG CAPSULE PO (10:34)
[2017-07-31] MEDS: HYDROmorphone 1 MG/ML Syringe 2 MG IV (16:06)
--- NOTE | 2017-07-31 16:09 | PN_ITS ---
Subjective: CC: Left thigh hematoma, chronic Coumadin therapy for mechanical aortic valve Objective: This is a 52 year old F who is status post mechanical aortic valve replacement on Coumadin who fell down approximately 6 steps about 3 days prior to admission, was found to have a large left thigh hematoma and underwent evacuation by Dr. Mccollum. Today she reports improved pain control, she denies any chest pain, fever, shortness of breath or palpitations. Vitals/I&O's: Vital Signs Temp Pulse Resp BP Pulse Ox 98.1 F 97 16 107/66 96 07/31/17 14:30 07/31/17 15:13 07/31/17 14:30 07/31/17 14:30 07/31/17 14:30 Oxygen Flow Rate (L/min) 2 Oxygen Delivery Method Room Air Weight: 77.6 kg Body Mass Index (BMI) 29.3 Intake and Output for Last 24 Hours 07/29/17 07/30/17 07/31/17 23:59 23:59 23:59 Intake Total 1767 / 176 2151 / 215 998 / 998 Balance 1767 / 1767 2150 / 2150 998 / 998 General: Alert, Oriented x3 HEENT: Atraumatic Oral: Moist Mucosa Neck: Supple, No JVD Lungs: Clear to auscultation Cardiovascular: Regular rate, Normal S1, Normal S2 Abdomen: Bowel Sounds Present, Soft, Non Tender Extremities: No edema Neurological: Cranial nerves II-XII grossly intact, Deep Tendon Reflexes 2+/4 and Symmetrical, Motor Exam 5/5 strength throughout Microbiology Past 72 Hours 07/28/17 10:00 Tissue - Leg, Left Gram Stain - Final 07/28/17 10:00 Tissue - Leg, Left Wound Culture - Final No growth aerobically. 07/28/17 10:00 Tissue - Leg, Left Anaerobic Culture - Preliminary No growth in 48 hours. Laboratory Results 07/31/17 05:47: PT 16.9 H, INR 1.4, APTT 57.0 H 07/31/17 05:47: WBC 6.4, RBC 3.33 L, Hgb 9.8 L, Hct 29.7 L, MCV 89.2, MCH 29.4, MCHC 33.0, RDW 14.2, RDW Differential 45.8 H, Plt Count 253, MPV 9.0 Current Medications Alprazolam (Xanax) 0.25 mg PO TID PRN PRN Reason: ANXIETY Diazepam (Valium) 5 mg PO Q6 [facility]PL[facility] BY [facility] Last Admin: 07/31/17 11:53 Dose: 5 mg [facility]adiol ([facility]) [facility] Last Admin: 07/31/17 08:21 Dose: 0.5 mg Heparin Sodium (Porcine) () 0 units IV UD PRN PRN Reason: Protocol Hydrochlorothiazide (Hydrochlorothiazide) 12.5 mg PO DAILY [facility] Last Admin: 07/31/17 10:34 Dose: 12.5 mg Hydromorphone HCl (Dilaudid Inj) 2 mg IV Q2H PRN PRN PRN Reason: SEVERE PAIN (6-10/10) Last Admin: 07/31/17 16:06 Dose: 2 mg Cefazolin Sodium () 1 gm in 50 mls @ 100 mls/hr IV Q8 [facility]PLAC[facility] BY [facility] Last Admin: 07/31/17 14:31 Dose: 100 mls/hr Heparin Sodium/Sodium Chloride () 25,000 unit in 250 mls @ 11 mls/hr IV .[id number] [facility]PL[facility]ED [facility]; As Directed PRN Reason: Protocol Last Admin: 07/31/17 10:33 Dose: Not Given Lisinopril (Zestril) 10 mg PO DAILY [facility] Last Admin: 07/31/17 10:33 Dose: 10 mg Magnesium Hydroxide (Milk Of Magnesia) 30 ml PO DAILY PRN PRN Reason: Constipation Last Admin: 07/31/17 05:51 Dose: 30 ml Nutritional Formula (Tha - [place] Flavor) [facility] Last Admin: 07/31/17 16:06 Dose: 1 packet Oxycodone HCl (Oxyir) 5 - 10 mg PO Q4H PRN PRN PRN Reason: SEVERE PAIN (6-10/10) Last Admin: 07/31/17 11:53 Dose: 10 mg Silver Nitrate/Potassium Nitrate (Silver Nitrate (Bkc)) 1 each TOPICAL X1 PRN; Protocol PRN Reason: BLEEDING Last Admin: 07/29/17 17:02 Dose: 1 each Sodium Chloride () 5 - 30 ml IV UD PRN PRN Reason: SALINE FLUSH Last Admin: 07/31/17 16:06 Dose: 10 ml Warfarin Sodium (Coumadin (Pbkc)) 5 mg PO DAILY@1700 [facility]PL[facility] Last Admin: 07/31/17 16:06 Dose: 5 mg Medical Necessity - Tobacco Use Smoking Status: Never smoker Assessment/Plan All Active Problems (Last Reviewed 06/29/17 @ 13:24 by Shannon Mcneil) Open wound of left hip and thigh with complication (Acute) Traumatic hematoma of left thigh (Acute) Screen for colon cancer (Acute) Thoracic aortic aneurysm (Resolved) Nonrheumatic aortic (valve) insufficiency (Resolved) Bicuspid aortic valve (Resolved) 1. Acute Left thigh hematoma following a fall in the setting of Coumadin coagulopathy; s/p hematoma evacuation on 07/28/17.. She has a - 20 x 7 x 4 cm defect left anterolateral thigh, Dr. Mccollum recommends wound VAC placement tomorrow. 2. Acute blood loss anemia; hgb is stable after a unit of PRBCs. 3. status post mechanical aortic valve replacement due to bicuspid aortic ; she is on heparin drip , Coumadin has been restarted , INR is 1.4 today. 4. Essential hypertension; she is on lisinopril/ hydrochlorothiazide, would continue. 5. Disposition; the patient will require ECF placement at the time of discharge as she is unable to take care of herself at home with his large wound. Code Visit Inpatient E&M: 95603 Subs Hosp L2
--- NOTE | 2017-07-31 16:45 | PCM.PN.SRG ---
Subjective: Postop #3 Patient has left thigh wound pain. The Dilaudid and the Valium has been helpful. Still needed IV analgesia for the Betadine Kerlix gauze dressing change. - Physical Exam General: Alert, Oriented x3 HEENT: PERRLA, EOMI Neck: Supple Skin: Ulcer/ Wound - left thigh wound is stable. Some staining on the dressing. Combination of betadine and serosanguinous drainage. No active bleeding seen. Betadine dressing change done today. Still painful. Still needs IV analgesia. Muscle is viable. Neurological: Cranial nerves II-XII grossly intact Psych/Mental Status: Normal Affect, Appropriate Vital Signs Temp Pulse Resp BP Pulse Ox 98.1 F 97 16 107/66 96 07/31/17 14:30 07/31/17 15:13 07/31/17 14:30 07/31/17 14:30 07/31/17 14:30 Oxygen Flow Rate (L/min) 2 Oxygen Delivery Method Room Air Weight: 171 lb 1.259 oz Body Mass Index (BMI) 29.3 Intake and Output for Last 24 Hours 07/29/17 07/30/17 07/31/17 23:59 23:59 23:59 Intake Total 1768 / 1768 2151 / 2151 998 / 998 Balance 1768 / 1768 2151 / 2151 998 / 998 Microbiology Past 72 Hours 07/28/17 10:00 Gram Stain - Final Tissue - Leg, Left Wound Culture - Final No growth aerobically. Anaerobic Culture - Preliminary No growth in 48 hours. Laboratory Tests Past 24 Hrs 07/31/17 07/31/17 05:47 05:47 WBC 6.4 RBC 3.33 L Hgb 9.8 L Hct 29.7 L MCV 89.2 MCH 29.4 MCHC 33.0 RDW 14.2 RDW Differential 45.8 H Plt Count 253 MPV 9.0 PT 16.9 H INR 1.4 APTT 57.0 H Medical Necessity - Tobacco Use Smoking Status: Never smoker Assessment/Plan All Active Problems (Last Reviewed 06/29/17 @ 13:24 by Shannon Mcneil) Open wound of left hip and thigh with complication (Acute) Traumatic hematoma of left thigh (Acute) Screen for colon cancer (Acute) Thoracic aortic aneurysm (Resolved) Nonrheumatic aortic (valve) insufficiency (Resolved) Bicuspid aortic valve (Resolved) 1. Traumatic intramuscular hematoma left anterolateral thigh (vastus lateralis muscle) (140 cm2). 2. penitentiary use of Coumadin for mechanical heart valve. 3. s/p surgical preparation left anterolateral thigh with incision and drainage and evacuation and excisional debridement traumatic intramuscular hematoma (vastus lateralis muscle), (140 cm2). Betadine compression dressing change done today. Still painful. Needed IV analgesia. The increased dose has been helpful. The Valium for muscle spasm has been helpful. Will continue Betadine compression dressings this weekend. Will attempt the VAC on Tuesday. Hgb stable at 9.8 (from 10.1) after the PRBC. Operative culture negative thus. Will continue the Ancef. Prealbumin was 13.6. Encourage nutritional supplementation with protein to help the healing process. Patient is back on her anticoagulation with Heparin and will transition to Coumadin. PT evaluation in process. It will be difficult for her to go home initially secondary to the complexity of the wound. ECF evaluation in process. After discharge, [facility]up [facility]. Later on if there is a plateau in the healing process, can proceed with delayed closure with skin grafting.
[2017-07-31] MEDS: Docusate Sodium 100 MG Capsule PO (22:31)
[2017-08-01] VITALS (11 sets, daily range): BP systolic 103–120; BP diastolic 68–77; PULSE 82–106; RESP 14–16; TEMP 36.6–37.1; O2SAT 93–98
[2017-08-01] MEDS: oxyCODONE 5 MG Tablet PO ×4 (03:04→21:48)
[2017-08-01 05:46] LABS: Hematocrit 30.4 % (37-47); Mean Corp Hgb Conc 32.9 g/gl (32-36); Mean Corpuscular Hgb 29.3 pg (27.0-32.0); Mean Corpuscular Volume 89.1 fL (81-99); Mean Platelet Vol. 8.9 fl (6.2-12.0); Platelet Count 266 K/mm3 (150-450); RBC Distribution Width SD 45.3 fl (35.1-43.9); Red Blood Count 3.41 M/mm3 (4.2-5.4); White Blood Count 7.3 K/mm3 (4.4-11.0)
[2017-08-01] MEDS: Magnesium Hydroxide 30 ML UDC PO (05:51)
[2017-08-01] MEDS: Cefazolin 1 GM/50 ML BAG IV ×3 (05:51→21:41)
[2017-08-01] MEDS: diazePAM 5 MG Tablet PO ×4 (05:51→23:24)
[2017-08-01 06:00] LABS: International Normalized Ratio 1.5; Prothrombin Time (Protime)PT. 17.7 SECONDS (11.7-14.9)
[2017-08-01 06:01] LABS: Partial Thromboplast Time 66.3 Seconds (24.1-36.2)
[2017-08-01 06:25] LABS: Scan Indicated on CBC? Y/N NO
--- NOTE | 2017-08-01 09:34 | CASEMGMT ---
CARY spoke with patient and she does want to go to TCU. CARY told her that we will have to get insurance approval first. CARY called Duyen in TCU and left her a voice mail asking her to start the pre-cert. Plan: [facility] TCU pending insurance approval. Ana Paula MARTE
[2017-08-01] MEDS: Docusate Sodium 100 MG Capsule PO (09:44)
[2017-08-01] MEDS: Lisinopril 10 MG Tablet PO (09:44)
[2017-08-01] MEDS: HYDROCHLOROTHIAZIDE 12.5 MG CAPSULE PO (09:44)
[2017-08-01] MEDS: Estradiol 0.5 MG Tablet PO (09:44)
--- NOTE | 2017-08-01 12:37 | PCM.PN.HOSP ---
Subjective: Patient is a 52-year-old female with history of bicuspid aortic valve status post mechanical aortic valve replacement on systemic anticoagulation with Coumadin who fell developing a large right hematoma for which patient underwent evacuation by Dr. Mccollum Objective: GENERAL: cooperative HEENT: Clear conjunctiva, NECK; supple, normal thyroid, CHEST: Clear to auscultation bilaterally, HEART: Regular S1 S2, systolic click ABDOMEN: soft, non-tender, RECTAL: deferred EXTREMITIES: Left thigh hematoma in surgical dressing UX DESIGN LEAD: Awake; no lateralizing signs. SKIN: As above Vitals/I&O's: Vital Signs Temp Pulse Resp BP Pulse Ox 98.5 F 106 H 14 112/77 95 08/01/17 09:40 08/01/17 11:00 08/01/17 09:40 08/01/17 09:40 08/01/17 10:00 Oxygen Flow Rate (L/min) 2 Oxygen Delivery Method Room Air Weight: 77.6 kg Body Mass Index (BMI) 29.3 Intake and Output for Last 24 Hours 07/30/17 07/31/17 08/01/17 23:59 23:59 23:59 Intake Total 2150 839.6 / 839.6 Balance 2150 839.6 / 839.6 Microbiology Past 72 Hours 07/28/17 10:00 Tissue - Leg, Left Gram Stain - Final 07/28/17 10:00 Tissue - Leg, Left Wound Culture - Final No growth aerobically. 07/28/17 10:00 Tissue - Leg, Left Anaerobic Culture - Preliminary No growth in 48 hours. Laboratory Results 08/01/17 05:25: PT 17.7 H, INR 1.5, APTT 66.3 H 08/01/17 05:25: WBC 7.3, RBC 3.41 L, Hgb 10.0 L, Hct 30.4 L, MCV 89.1, MCH 29.3, MCHC 32.9, RDW 14.0, RDW Differential 45.3 H, Plt Count 266, MPV 8.9 Current Medications Alprazolam (Xanax) 0.25 mg PO TID PRN PRN Reason: ANXIETY Diazepam (Valium) 5 mg PO Q6 [facility] Last Admin: 08/01/17 11:29 Dose: 5 mg Docusate Sodium (Colace) 100 mg PO BID [facility] Last Admin: 08/01/17 09:44 Dose: 100 mg Estradiol ([facility]adiol) [facility] Last Admin: 08/01/17 09:44 Dose: 0.5 mg Heparin Sodium (Porcine) () 0 units IV UD PRN PRN Reason: Protocol Hydrochlorothiazide (Hydrochlorothiazide) 12.5 mg PO DAILY [facility] Last Admin: 08/01/17 09:44 Dose: 12.5 mg Hydromorphone HCl (Dilaudid Inj) 2 mg IV Q2H PRN PRN PRN Reason: SEVERE PAIN (6-10/10) Last Admin: 07/31/17 16:06 Dose: 2 mg Cefazolin Sodium () 1 gm in 50 mls @ 100 mls/hr IV Q8 [facility] Last Admin: 08/01/17 05:51 Dose: 100 mls/hr Heparin Sodium/Sodium Chloride () 25,000 unit in 250 mls @ 11 mls/hr IV .[id number] [facility]; As Directed PRN Reason: Protocol Last Admin: 08/01/17 09:45 Dose: 11 mls/hr Lisinopril (Zestril) 10 mg PO DAILY [facility] Last Admin: 08/01/17 09:44 Dose: 10 mg Magnesium Hydroxide (Milk Of Magnesia) 30 ml PO DAILY PRN PRN Reason: Constipation Last Admin: 08/01/17 05:51 Dose: 30 ml Nutritional Formula (Tha - [place] Flavor) [facility] Last Admin: 08/01/17 09:44 Dose: 1 packet Oxycodone HCl (Oxyir) 5 - 10 mg PO Q4H PRN PRN PRN Reason: SEVERE PAIN (6-10/10) Last Admin: 08/01/17 11:29 Dose: 10 mg Silver Nitrate/Potassium Nitrate (Silver Nitrate (Bkc)) 1 each TOPICAL X1 PRN; Protocol PRN Reason: BLEEDING Last Admin: 07/29/17 17:02 Dose: 1 each Sodium Chloride () 5 - 30 ml IV UD PRN PRN Reason: SALINE FLUSH Last Admin: 07/31/17 21:08 Dose: 10 ml Warfarin Sodium (Coumadin (Pbkc)) 5 mg PO DAILY@1700 [facility] Last Admin: 07/31/17 16:06 Dose: 5 mg Medical Necessity - Tobacco Use Smoking Status: Never smoker Assessment/Plan All Active Problems (Last Reviewed 06/29/17 @ 13:24 by Shannon Mcneil) Open wound of left hip and thigh with complication (Acute) Traumatic hematoma of left thigh (Acute) Screen for colon cancer (Acute) Thoracic aortic aneurysm (Resolved) Nonrheumatic aortic (valve) insufficiency (Resolved) Bicuspid aortic valve (Resolved) Patient is a 52-year-old female with history of bicuspid aortic valve status post mechanical aortic valve replacement on systemic anticoagulation with Coumadin who fell developing a large right hematoma for which patient underwent evacuation by Dr. Mccollum 1. Acute left thigh hematoma following a fall in the setting of Coumadin use. Patient underwent hematoma evacuation by Dr. Mccollum on 07/28/2017. Dr. Mccollum recommended wound VAC placement 2. Acute blood loss anemia patient was transfused 1 unit PRBC with subsequent monitoring of H&H 3. Status post mechanical aortic valve replacement due to bicuspid aortic valve. Currently being bridged with heparin INR 1.5 as of 08/01/2017 4. Hypertension-blood pressure controlled, home medications continued with dose adjustment as needed 5. DVT prophylaxis on systemic anticoagulation Disposition to [facility] pending insurance precertification and bed availability Code Visit Inpatient E&M: 20828 Subs Hosp L2
--- NOTE | 2017-08-01 12:46 | PN_ITS ---
Subjective: Patient is a 52-year-old female with history of bicuspid aortic valve status post mechanical aortic valve replacement on systemic anticoagulation with Coumadin who fell developing a large right hematoma for which patient underwent evacuation by Dr. Mccollum Objective: GENERAL: cooperative HEENT: Clear conjunctiva, NECK; supple, normal thyroid, CHEST: Clear to auscultation bilaterally, HEART: Regular S1 S2, systolic click ABDOMEN: soft, non-tender, RECTAL: deferred EXTREMITIES: Left thigh hematoma in surgical dressing PRODUCT BUILDER: Awake; no lateralizing signs. SKIN: As above Vitals/I&O's: Vital Signs Temp Pulse Resp BP Pulse Ox 98.5 F 106 H 14 112/77 95 08/01/17 09:40 08/01/17 11:00 08/01/17 09:40 08/01/17 09:40 08/01/17 10:00 Oxygen Flow Rate (L/min) 2 Oxygen Delivery Method Room Air Weight: 77.6 kg Body Mass Index (BMI) 29.3 Intake and Output for Last 24 Hours 07/30/17 07/31/17 08/01/17 23:59 23:59 23:59 Intake Total 2150 839.6 / 839.6 Balance 2150 839.6 / 839.6 Microbiology Past 72 Hours 07/28/17 10:00 Tissue - Leg, Left Gram Stain - Final 07/28/17 10:00 Tissue - Leg, Left Wound Culture - Final No growth aerobically. 07/28/17 10:00 Tissue - Leg, Left Anaerobic Culture - Preliminary No growth in 48 hours. Laboratory Results 08/01/17 05:25: PT 17.7 H, INR 1.5, APTT 66.3 H 08/01/17 05:25: WBC 7.3, RBC 3.41 L, Hgb 10.0 L, Hct 30.4 L, MCV 89.1, MCH 29.3 , MCHC 32.9, RDW 14.0, RDW Differential 45.3 H, Plt Count 266, MPV 8.9 Current Medications Alprazolam (Xanax) 0.25 mg PO TID PRN PRN Reason: ANXIETY Diazepam (Valium) 5 mg PO Q6 [facility] Last Admin: 08/01/17 11:29 Dose: 5 mg Docusate Sodium (Colace) 100 mg PO BID [facility] Last Admin: 08/01/17 09:44 Dose: 100 mg [facility]ad[facility]) [facility] Last Admin: 08/01/17 09:44 Dose: 0.5 mg Heparin Sodium (Porcine) () 0 units IV UD PRN PRN Reason: Protocol Hydrochlorothiazide (Hydrochlorothiazide) 12.5 mg PO DAILY [facility] Last Admin: 08/01/17 09:44 Dose: 12.5 mg Hydromorphone HCl (Dilaudid Inj) 2 mg IV Q2H PRN PRN PRN Reason: SEVERE PAIN (6-10/10) Last Admin: 07/31/17 16:06 Dose: 2 mg Cefazolin Sodium () 1 gm in 50 mls @ 100 mls/hr IV Q8 [facility] Last Admin: 08/01/17 05:51 Dose: 100 mls/hr Heparin Sodium/Sodium Chloride () 25,000 unit in 250 mls @ 11 mls/hr IV .[id number] [facility]; As Directed PRN Reason: Protocol Last Admin: 08/01/17 09:45 Dose: 11 mls/hr Lisinopril (Zestril) 10 mg PO DAILY [facility] Last Admin: 08/01/17 09:44 Dose: 10 mg Magnesium Hydroxide (Milk Of Magnesia) 30 ml PO DAILY PRN PRN Reason: Constipation Last Admin: 08/01/17 05:51 Dose: 30 ml Nutritional Formula (Tha - [place] Flavor) [facility] Last Admin: 08/01/17 09:44 Dose: 1 packet Oxycodone HCl (Oxyir) 5 - 10 mg PO Q4H PRN PRN PRN Reason: SEVERE PAIN (6-10/10) Last Admin: 08/01/17 11:29 Dose: 10 mg Silver Nitrate/Potassium Nitrate (Silver Nitrate (Bkc)) 1 each TOPICAL X1 PRN; Protocol PRN Reason: BLEEDING Last Admin: 07/29/17 17:02 Dose: 1 each Sodium Chloride () 5 - 30 ml IV UD PRN PRN Reason: SALINE FLUSH Last Admin: 07/31/17 21:08 Dose: 10 ml Warfarin Sodium (Coumadin (Pbkc)) 5 mg PO DAILY@1700 [facility] Last Admin: 07/31/17 16:06 Dose: 5 mg Medical Necessity - Tobacco Use Smoking Status: Never smoker Assessment/Plan All Active Problems (Last Reviewed 06/29/17 @ 13:24 by Shannon Mcneil) Open wound of left hip and thigh with complication (Acute) Traumatic hematoma of left thigh (Acute) Screen for colon cancer (Acute) Thoracic aortic aneurysm (Resolved) Nonrheumatic aortic (valve) insufficiency (Resolved) Bicuspid aortic valve (Resolved) Patient is a 52-year-old female with history of bicuspid aortic valve status post mechanical aortic valve replacement on systemic anticoagulation with Coumadin who fell developing a large right hematoma for which patient underwent evacuation by Dr. Mccollum 1. Acute left thigh hematoma following a fall in the setting of Coumadin use. Patient underwent hematoma evacuation by Dr. Mccollum on 07/28/2017. Dr. Mccollum recommended wound VAC placement 2. Acute blood loss anemia patient was transfused 1 unit PRBC with subsequent monitoring of H&H 3. Status post mechanical aortic valve replacement due to bicuspid aortic valve. Currently being bridged with heparin INR 1.5 as of 08/01/2017 4. Hypertension-blood pressure controlled, home medications continued with dose adjustment as needed 5. DVT prophylaxis on systemic anticoagulation Disposition to [facility] pending insurance precertification and bed availability Code Visit Inpatient E&M: 36170 Subs Hosp L2
[2017-08-01] MEDS: HYDROmorphone 1 MG/ML Syringe 2 MG IV ×2 (13:53→17:05)
--- NOTE | 2017-08-01 17:56 | PCM.PN.SRG ---
Subjective: Postop #4 Patient tolerating the dressing change better. Still needs IV analgesia. - Physical Exam General: Alert, Oriented x3 HEENT: PERRLA, EOMI Neck: Supple Skin: Ulcer/ Wound - left thigh wound is stable. Some staining on the dressing. Combination of betadine and serosanguinous drainage. No active bleeding seen. Betadine dressing change done today. Still painful. Still needs IV analgesia. Muscle is viable. Neurological: Cranial nerves II-XII grossly intact Psych/Mental Status: Normal Affect, Appropriate Vital Signs Temp Pulse Resp BP Pulse Ox 97.9 F 95 14 103/70 93 08/01/17 15:40 08/01/17 15:40 08/01/17 15:40 08/01/17 15:40 08/01/17 15:40 Oxygen Flow Rate (L/min) 2 Oxygen Delivery Method Room Air Weight: 171 lb 1.259 oz Body Mass Index (BMI) 29.3 Intake and Output for Last 24 Hours 07/30/17 07/31/17 08/01/17 23:59 23:59 23:59 Intake Total 2150 / 2150 839.6 / 839.6 Balance 2150 / 2150 2048 / 2048 839.6 / 839.6 Microbiology Past 72 Hours 07/28/17 10:00 Gram Stain - Final Tissue - Leg, Left Wound Culture - Final No growth aerobically. Anaerobic Culture - Preliminary No growth in 48 hours. Laboratory Tests Past 24 Hrs 08/01/17 08/01/17 05:25 05:25 WBC 7.3 RBC 3.41 L Hgb 10.0 L Hct 30.4 L MCV 89.1 MCH 29.3 MCHC 32.9 RDW 14.0 RDW Differential 45.3 H Plt Count 266 MPV 8.9 PT 17.7 H INR 1.5 APTT 66.3 H Medical Necessity - Tobacco Use Smoking Status: Never smoker Assessment/Plan All Active Problems (Last Reviewed 06/29/17 @ 13:24 by Shannon Mcneil) Open wound of left hip and thigh with complication (Acute) Traumatic hematoma of left thigh (Acute) Screen for colon cancer (Acute) Thoracic aortic aneurysm (Resolved) Nonrheumatic aortic (valve) insufficiency (Resolved) Bicuspid aortic valve (Resolved) 1. Traumatic intramuscular hematoma left anterolateral thigh (vastus lateralis muscle) (140 cm2). 2. longterm use of Coumadin for mechanical heart valve. 3. s/p surgical preparation left anterolateral thigh with incision and drainage and evacuation and excisional debridement traumatic intramuscular hematoma (vastus lateralis muscle), (140 cm2). Betadine compression dressing change done today. Still painful. Needed IV analgesia. The increased dose has been helpful. The Valium for muscle spasm has been helpful. Will continue Betadine compression dressings daily. Will attempt the VAC in the nexr couple of days. Hgb stable at 10.0 (from 10.1) after the PRBC. Operative culture negative. Will continue the Ancef. Prealbumin was 13.6. Encourage nutritional supplementation with protein to help the healing process. Patient is back on her anticoagulation with Heparin and will transition to Coumadin. PT evaluation in process. It will be difficult for her to go home initially secondary to the complexity of the wound. ECF evaluation in process. After discharge, can followup at the Wound Center. Later on if there is a plateau in the healing process, can proceed with delayed closure with skin grafting.
[2017-08-02] VITALS (11 sets, daily range): BP systolic 94–117; BP diastolic 54–73; PULSE 78–111; RESP 14–18; TEMP 36.7–37; O2SAT 93–100
[2017-08-02] MEDS: HYDROmorphone 1 MG/ML Syringe 2 MG IV ×4 (01:55→22:45)
[2017-08-02] MEDS: 0.9% NaCl Peripheral Flush Adult/Peds IV ×3 (01:56→22:45)
[2017-08-02] MEDS: diazePAM 5 MG Tablet PO ×3 (05:33→17:47)
[2017-08-02] MEDS: Cefazolin 1 GM/50 ML BAG IV ×2 (05:33→13:00)
[2017-08-02 06:04] LABS: Partial Thromboplast Time 65.1 Seconds (24.1-36.2)
[2017-08-02] MEDS: oxyCODONE 5 MG Tablet PO ×2 (07:38→16:46)
[2017-08-02] MEDS: Estradiol 0.5 MG Tablet PO (07:38)
[2017-08-02] MEDS: Docusate Sodium 100 MG Capsule PO ×2 (09:07→22:45)
[2017-08-02] MEDS: HYDROCHLOROTHIAZIDE 12.5 MG CAPSULE PO (09:08)
[2017-08-02] MEDS: Lisinopril 10 MG Tablet PO (09:08)
--- NOTE | 2017-08-02 10:51 | NURSING ---
Dr Mccollum called this nurse and states he would like to assess wound with this nurse today and then will decide if wound VAC is indicated or if we should wait a little longer. Plan is for patient to be discharged to TCU when ready.
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
--- NOTE | 2017-08-02 18:22 | PN.SURG_ITS ---
Subjective: Postop #5 Patient tolerating the dressing change better. - Physical Exam General: Alert, Oriented x3 HEENT: PERRLA, EOMI Neck: Supple Skin: Ulcer/ Wound - left thigh wound is stable. Some staining on the dressing. Combination of betadine and serosanguinous drainage. No active bleeding seen. Betadine dressing change done today. Still painful. Still needs IV analgesia. Muscle is viable. Neurological: Cranial nerves II-XII grossly intact Psych/Mental Status: Normal Affect, Appropriate Vital Signs Temp Pulse Resp BP Pulse Ox 98.4 F 83 14 94/54 L 96 08/02/17 15:14 08/02/17 15:14 08/02/17 15:14 08/02/17 15:14 08/02/17 15:14 Oxygen Flow Rate (L/min) 2 Oxygen Delivery Method Room Air Weight: 171 lb 1.259 oz Body Mass Index (BMI) 29.3 Intake and Output for Last 24 Hours 07/31/17 08/01/17 08/02/17 23:59 23:59 23:59 Intake Total 2048 1641.0 / 1641.0 960.0 / 960.0 Balance 2048 1641.0 / 1641.0 960.0 / 960.0 Microbiology Past 72 Hours 07/28/17 10:00 Gram Stain - Final Tissue - Leg, Left Wound Culture - Final No growth aerobically. Anaerobic Culture - Final No growth in 5 days. Laboratory Tests Past 24 Hrs 08/02/17 05:25 APTT 65.1 H Medical Necessity - Tobacco Use Smoking Status: Never smoker Assessment/Plan All Active Problems (Last Reviewed 06/29/17 @ 13:24 by Shannon Mcneil) Open wound of left hip and thigh with complication (Acute) Traumatic hematoma of left thigh (Acute) Screen for colon cancer (Acute) Thoracic aortic aneurysm (Resolved) Nonrheumatic aortic (valve) insufficiency (Resolved) Bicuspid aortic valve (Resolved) 1. Traumatic intramuscular hematoma left anterolateral thigh (vastus lateralis muscle) (140 cm2). 2. nursing home use of Coumadin for mechanical heart valve. 3. s/p surgical preparation left anterolateral thigh with incision and drainage and evacuation and excisional debridement traumatic intramuscular hematoma (vastus lateralis muscle), (140 cm2). Betadine compression dressing change done today. Still painful. Needed IV analgesia. The increased dose has been helpful. The Valium for muscle spasm has been helpful. Will continue Betadine compression dressings daily. Will attempt the VAC placement tomorrow. Hgb stable at 10.0 (from 10.1) after the PRBC. Operative culture negative. Will stop the Ancef. Prealbumin was 13.6. Encourage nutritional supplementation with protein to help the healing process. Patient is back on her anticoagulation with Heparin and will transition to Coumadin. PT evaluation in process. It will be difficult for her to go home initially secondary to the complexity of the wound. ECF evaluation in process. After discharge, can followup at the Wound Center. Later on if there is a plateau in the healing process, can proceed with delayed closure with skin grafting.
[2017-08-03] VITALS (7 sets, daily range): BP systolic 93–108; BP diastolic 53–61; PULSE 75–90; RESP 12–16; TEMP 36.8–37.2; O2SAT 95–100
[2017-08-03] MEDS: diazePAM 5 MG Tablet PO ×5 (00:06→23:12)
[2017-08-03 05:47] LABS: International Normalized Ratio 1.6; Prothrombin Time (Protime)PT. 18.9 SECONDS (11.7-14.9)
[2017-08-03 05:49] LABS: Partial Thromboplast Time 73.4 Seconds (24.1-36.2)
[2017-08-03] MEDS: Estradiol 0.5 MG Tablet PO (07:41)
[2017-08-03] MEDS: oxyCODONE 5 MG Tablet PO ×2 (07:41→20:21)
[2017-08-03] MEDS: Docusate Sodium 100 MG Capsule PO ×2 (09:34→22:22)
[2017-08-03] MEDS: Lisinopril 10 MG Tablet PO (09:34)
[2017-08-03] MEDS: HYDROCHLOROTHIAZIDE 12.5 MG CAPSULE PO (09:34)
[2017-08-03] MEDS: HYDROmorphone 1 MG/ML Syringe 2 MG IV ×3 (10:19→22:23)
[2017-08-03] MEDS: 0.9% NaCl Peripheral Flush Adult/Peds IV (10:19)
--- NOTE | 2017-08-03 12:25 | CASEMGMT ---
Patient was approved by insurance to go to TCU. CARY notified physician and patient. She is getting IV Heparin which they do not do in TCU so she will not be d/c until her INR is therapeutic. CARY notified Duyen of this information via telephone message. Plan: TCU pending her INR being therapeutic. Ana Paula CAMPBELL MSW
--- NOTE | 2017-08-03 14:34 | PN.SURG_ITS ---
Subjective: Postop #6 Patient resting quietly. VAC applied today. Pain slowly getting manageable. - Physical Exam General: Alert, Oriented x3 HEENT: PERRLA, EOMI Neck: Supple Skin: Ulcer/ Wound - left thigh wound is stable. Some staining on the dressing. Combination of betadine and serosanguinous drainage. No active bleeding seen. VAC applied today. Still painful. Still needs IV analgesia. Muscle is viable. Neurological: Cranial nerves II-XII grossly intact Psych/Mental Status: Normal Affect, Appropriate Vital Signs Temp Pulse Resp BP Pulse Ox 98.6 F 76 16 102/58 L 95 08/03/17 09:36 08/03/17 09:36 08/03/17 09:36 08/03/17 09:36 08/03/17 09:36 Oxygen Flow Rate (L/min) 2 Oxygen Delivery Method Room Air Weight: 171 lb 1.259 oz Body Mass Index (BMI) 29.3 Intake and Output for Last 24 Hours 08/01/17 08/02/17 08/03/17 23:59 23:59 23:59 Intake Total 1641.0 / 1641.0 1236.0 / 1236.0 198.3 / 198.3 Balance 1641.0 / 1641.0 1236.0 / 1236.0 198.3 / 198.3 Microbiology Past 72 Hours 07/28/17 10:00 Gram Stain - Final Tissue - Leg, Left Wound Culture - Final No growth aerobically. Anaerobic Culture - Final No growth in 5 days. Laboratory Tests Past 24 Hrs 08/03/17 05:20 PT 18.9 H INR 1.6 APTT 73.4 H Medical Necessity - Tobacco Use Smoking Status: Never smoker Assessment/Plan All Active Problems (Last Reviewed 06/29/17 @ 13:24 by Shannon Mcneil) Open wound of left hip and thigh with complication (Acute) Traumatic hematoma of left thigh (Acute) Screen for colon cancer (Acute) Thoracic aortic aneurysm (Resolved) Nonrheumatic aortic (valve) insufficiency (Resolved) Bicuspid aortic valve (Resolved) 1. Traumatic intramuscular hematoma left anterolateral thigh (vastus lateralis muscle) (140 cm2). 2. [employer] use of Coumadin for mechanical heart valve. 3. s/p surgical preparation left anterolateral thigh with incision and drainage and evacuation and excisional debridement traumatic intramuscular hematoma (vastus lateralis muscle), (140 cm2). VAC applied today. Still painful. Needed IV analgesia. The increased dose has been helpful. The Valium for muscle spasm has been helpful. Hgb stable at 10.0 (from 10.1) after the PRBC. Operative culture negative. The Ancef has been discontinued. Prealbumin was 13.6. Encourage nutritional supplementation with protein to help the healing process. Patient is back on her anticoagulation with Heparin and will transition to Coumadin. PT evaluation in process. It will be difficult for her to go home initially secondary to the complexity of the wound. ECF evaluation in process. After discharge, can followup at the Wound Center. Later on if there is a plateau in the healing process, can proceed with delayed closure with skin grafting.
--- NOTE | 2017-08-03 15:17 | NURSING ---
wound photo: left lateral thigh
--- NOTE | 2017-08-03 16:04 | PCM.PROGNOTE ---
Subjective: No acute issues. Waiting for placement, Heparin bridge. Pain controlled. No bleeding. No dizziness/ LH/Fevers/Chills. Wound vac in place. No pain around vac. She continues to have occasional muscle spasms. - Physical Exam General: Alert, Oriented x3, Cooperative HEENT: Atraumatic, PERRLA, EOMI, Normocephalic Neck: Supple, No JVD, Negative Carotid Bruits Lungs: Clear to auscultation, Normal air movement Cardiovascular: Regular rate, No murmurs Abdomen: Bowel Sounds Present, Soft, Non Tender Extremities: No edema, Capillary Refill Less than 3 Seconds Skin: No rashes, No breakdown Musculoskeletal: No Tenderness to Palpation of Joints or Extremities Neurological: Cranial nerves II-XII grossly intact Psych/Mental Status: Normal Affect, Appropriate, Alert and oriented to time, place, person, mood and affect Vital Signs Temp Pulse Resp BP Pulse Ox 98.3 F 90 12 93/53 L 96 08/03/17 15:07 08/03/17 15:07 08/03/17 15:07 08/03/17 15:07 08/03/17 15:07 Oxygen Flow Rate (L/min) 2 Oxygen Delivery Method Room Air Weight: 77.6 kg Body Mass Index (BMI) 29.3 Intake and Output for Last 24 Hours 08/01/17 08/02/17 08/03/17 23:59 23:59 23:59 Intake Total 1641.0 / 1641.0 1236.0 / 1236.0 198.3 / 198.3 Balance 1641.0 / 1641.0 1236.0 / 1236.0 198.3 / 198.3 Microbiology Past 72 Hours 07/28/17 10:00 Gram Stain - Final Tissue - Leg, Left Wound Culture - Final No growth aerobically. Anaerobic Culture - Final No growth in 5 days. Laboratory Tests Past 24 Hrs 08/03/17 05:20 PT 18.9 H INR 1.6 APTT 73.4 H Medical Necessity - Tobacco Use Smoking Status: Never smoker Assessment/Plan All Active Problems (Last Reviewed 06/29/17 @ 13:24 by Shannon Mcneil) Open wound of left hip and thigh with complication (Acute) Traumatic hematoma of left thigh (Acute) Screen for colon cancer (Acute) Thoracic aortic aneurysm (Resolved) Nonrheumatic aortic (valve) insufficiency (Resolved) Bicuspid aortic valve (Resolved) 1. Acute traumatic left thigh hematoma in setting of coumadin use - s/p surgery per slaby, wound vac is in place. 2. Acute blood loss anemia - stable s/p 1 unit prbc 3. s/p mechanical aortic valve 2/2 hx of endocarditis. Heparin bridge with coumadin. inr slowly trending up. additional doses have been given. 4. HTN - stable DVT ppx: heparin bridge to warfarin DC planning: Accepted at SNF, vac in place, waiting for therapeutic INR. This patient was seen by Kelvin Fontanez PA-C under the supervision of Doctor Wheeler .
[2017-08-03 17:39] LABS: International Normalized Ratio 1.6; Prothrombin Time (Protime)PT. 18.8 SECONDS (11.7-14.9)
[2017-08-04 03:19] VITALS: BP 104/58; PULSE 78; RESP 16; TEMP 36.4; O2SAT 97
[2017-08-04] MEDS: diazePAM 5 MG Tablet PO ×2 (05:37→13:05)
[2017-08-04 06:10] LABS: International Normalized Ratio 1.9; Prothrombin Time (Protime)PT. 21.4 SECONDS (11.7-14.9)
[2017-08-04 06:12] LABS: Partial Thromboplast Time 78.3 Seconds (24.1-36.2)
[2017-08-04 09:15] VITALS: BP 116/64; PULSE 76; RESP 16; TEMP 36.8; O2SAT 100
[2017-08-04] MEDS: Lisinopril 10 MG Tablet PO (09:20)
[2017-08-04] MEDS: HYDROCHLOROTHIAZIDE 12.5 MG CAPSULE PO (09:20)
[2017-08-04] MEDS: oxyCODONE 5 MG Tablet PO ×2 (09:20→18:53)
[2017-08-04] MEDS: Estradiol 0.5 MG Tablet PO (09:20)
[2017-08-04] MEDS: Docusate Sodium 100 MG Capsule PO ×2 (09:20→21:06)
--- NOTE | 2017-08-04 09:42 | NURSING ---
In to assess the wound VAC dressing to the left lateral thigh. dressing intact. Good seal noted at 150mmHg low continuous suction. patient very tearful this am. states she cannot get comfortable. patient also teary stating I'm not sure why the coumadin isn't working. KYE Ortega had just medicated patient for pain. wound VAC dressing to be changed tomorrow. will continue to follow.
[2017-08-04 14:40] VITALS: BP 113/60; PULSE 77; RESP 16; TEMP 36.6; O2SAT 100
--- NOTE | 2017-08-04 15:31 | PCM.PROGNOTE ---
Subjective: Patient seen and examined. Complains of left thigh pain, worse after ambulation with physical therapy. Wound VAC in place. Denies fever, chills. No other complaints at this time. - Physical Exam General: Alert, Oriented x3, Cooperative HEENT: Atraumatic, PERRLA, EOMI, Normocephalic Neck: Supple, No JVD, Negative Carotid Bruits Lungs: Clear to auscultation, Normal air movement Cardiovascular: Regular rate, No murmurs Abdomen: Bowel Sounds Present, Soft, Non Tender, Non-Distended Extremities: No clubbing, No cyanosis, No edema, Capillary Refill Less than 3 Seconds Skin: No rashes, No breakdown, - - Left thigh wound with wound VAC intact. Musculoskeletal: No Tenderness to Palpation of Joints or Extremities Neurological: Cranial nerves II-XII grossly intact, Neuro grossly intact Psych/Mental Status: Normal Affect, Appropriate Vital Signs Temp Pulse Resp BP Pulse Ox 98 F 77 16 113/60 100 08/04/17 14:40 08/04/17 14:40 08/04/17 14:40 08/04/17 14:40 08/04/17 14:40 Oxygen Flow Rate (L/min) 2 Oxygen Delivery Method Room Air Weight: 77.6 kg Body Mass Index (BMI) 29.3 Intake and Output for Last 24 Hours 08/02/17 08/03/17 08/04/17 23:59 23:59 23:59 Intake Total 1236.0 / 1236.0 691.4 / 691.4 405 / 405 Output Total 50 / 50 Balance 1236.0 / 1236.0 641.4 / 641.4 405 / 405 Microbiology Past 72 Hours 07/28/17 10:00 Gram Stain - Final Tissue - Leg, Left Wound Culture - Final No growth aerobically. Anaerobic Culture - Final No growth in 5 days. Laboratory Tests Past 24 Hrs 08/03/17 08/04/17 17:15 05:30 PT 18.8 H 21.4 H INR 1.6 1.9 APTT 78.3 H Medical Necessity - Tobacco Use Smoking Status: Never smoker Assessment/Plan All Active Problems (Last Reviewed 06/29/17 @ 13:24 by Shannon Mcneil) Open wound of left hip and thigh with complication (Acute) Traumatic hematoma of left thigh (Acute) Screen for colon cancer (Acute) Thoracic aortic aneurysm (Resolved) Nonrheumatic aortic (valve) insufficiency (Resolved) Bicuspid aortic valve (Resolved) Patient is a 52-year-old female admitted 07/27/2017 due to left thigh pain and swelling after mechanical fall prior to admission. She has a past medical history of hypertension, hyperlipidemia, history of aortic valve replacement with metallic valve on chronic anticoagulation with Coumadin. 1. Acute traumatic left anterolateral thigh hematoma secondary to mechanical fall prior to admission-status post incision and drainage 07/28/[address] Mccollum. Wound VAC in place. TCU at discharge. PT/OT. PRN pain regimen. Scheduled Valium for muscle spasm. Follow-up with wound center following discharge from TCU. 2. Acute blood loss anemia secondary to #1-status post 1 unit PRBC. Stable. 3. Status post mechanical aortic valve replacement due to bicuspid aortic valve on chronic anticoagulation with Coumadin-INR currently subtherapeutic. Additional Coumadin given this morning for a total of 12 mg ?1. Repeat INR at 5 PM and tomorrow morning. Continue heparin drip per protocol. 4. Hypertension-stable, continue home hydrochlorothiazide/lisinopril regimen. 5. Hyperlipidemia-lipid panel elevated May 2017. Not on statin. Recommend outpatient follow-up. DVT prophylaxis-SCDs, heparin drip bridge to Coumadin. Discharge planning: TCU pending therapeutic INR. This patient was seen by MARCELA Del Rio under the supervision of Dr. Wheeler.
[2017-08-04 17:27] LABS: International Normalized Ratio 2.1; Prothrombin Time (Protime)PT. 23.9 SECONDS (11.7-14.9)
[2017-08-04 19:39] VITALS: BP 109/68; PULSE 84; RESP 16; TEMP 37.4; O2SAT 95
[2017-08-04] MEDS: 0.9% NaCl Peripheral Flush Adult/Peds IV (19:44)
[2017-08-04] MEDS: Ondansetron 4 MG/2 ML Vial IV (19:44)
[2017-08-04] MEDS: Amitriptyline 25 MG Tablet PO (21:10)
[2017-08-04] MEDS: HYDROmorphone 1 MG/ML Syringe 2 MG IV (21:10)
[2017-08-05 01:39] VITALS: BP 91/55; PULSE 74; RESP 16; TEMP 36.5; O2SAT 97
[2017-08-05 07:10] LABS: Bedside Glucose 82 mg/dL (70-110)
[2017-08-05 08:41] LABS: Prothrombin Time Fingerstick 39.6 SEC (11.9-14.4)
[2017-08-05 10:21] VITALS: BP 105/56; PULSE 72; RESP 16; TEMP 36.9; O2SAT 99
[2017-08-05] MEDS: oxyCODONE 5 MG Tablet PO (10:29)
[2017-08-05] MEDS: Docusate Sodium 100 MG Capsule PO (10:30)
[2017-08-05] MEDS: Lisinopril 10 MG Tablet PO (10:30)
[2017-08-05] MEDS: HYDROCHLOROTHIAZIDE 12.5 MG CAPSULE PO (10:30)
[2017-08-05] MEDS: Estradiol 0.5 MG Tablet PO (10:30)
--- NOTE | 2017-08-05 11:01 | PCM.EXTCARCO ---
- Diet 07/28/17 10:07 Diet: Regular Diet Is pt able to select menu?: Yes - Routine Orders/Code Status Enema Type: Fleetz Enema Frequency: Daily PRN Suppository Type: Dulcolax 10mg Suppository Frequency: Daily PRN Routine Lab Work: INR, - - INR daily X 1 week - Wound(s) left thigh Wound Type: open surgical wound s/p excision hematoma Dressing Change: applied [employer] wound VAC - Suggestions for Active Care Change Position every (hours): 2 Times a day to sit in chair: 3 - Therapies Physical Therapy: Eval and Treat Occupational Therapy: Eval and Treat - Allergies/Procedures Done in Hospital Allergies/Adverse Reactions: Allergies fluoxetine Allergy (Mild, Verified 07/27/17 09:41) Other head ache gabapentin Allergy (Mild, Verified 07/27/17 09:41) Abd cramps/diarrhea venlafaxine Allergy (Mild, Verified 07/27/17 09:41) Pain in joints tramadol Adverse Reaction (Verified 07/27/17 09:41) Nausea Procedures: None - Type of Care/Length of Stay Estimated LOS: Convalescent Care Less Than 30 days Type of Care Needed: Skilled Rehab Potential: Good Prognosis: Good - Additional Orders/Day of Discharge H&P will serve as current which was dated: 07/27/17 Day of Discharge: 08/05/17 - Dietary and Speech Recommendations Dietitian Recommendations/Changes: Continue regular diet and Tha BID - Follow Up Care Primary Care Physician: Miya Goldman DO [Primary Care Provider] - Please follow up with your Primary Care Physician in: 1 Week Please Follow Up With: Wound Center When: Following DC from TCU
--- NOTE | 2017-08-05 11:06 | PCM.DC.SUM ---
Discharge Date and Diagnosis Date of Admission: 07/27/17 Date of Discharge: 08/05/17 - Primary Discharge Diagnosis 1. Acute traumatic left anterolateral thigh hematoma secondary to mechanical fall prior to admission 2. Acute blood loss anemia secondary to #1, requiring 1 unit packed red blood cells during admission 3. Status post mechanical aortic valve replacement due to bicuspid aortic valve on chronic anticoagulation with Coumadin 4. Hypertension 5. 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 Ten Valved conduit 05/28/09 Hyperlipidemia (Chronic) Hypertension (Chronic) Hospital Course and Treatment Consultations 08/02/17 10:46 Consult: Onc/Wound/dealership general manager Routine Comment: Reason for Consult:: wound vac Operations: - - Incision and drainage 07/28/2017 of left anterolateral thigh hematoma secondary to mechanical fall prior to admission. Procedures: None Summary of Care Provided: Patient is a 52-year-old female admitted 07/27/2017 due to left thigh pain and swelling after mechanical fall prior to admission. She has a past medical history of hypertension, hyperlipidemia, history of aortic valve replacement with metallic valve on chronic anticoagulation with Coumadin. 1. Acute traumatic left anterolateral thigh hematoma secondary to mechanical fall prior to admission-status post incision and drainage 07/28/[address] Mccollum. Wound VAC in place. TCU at discharge. Continue PT/OT at TCU. Follow-up with wound center following discharge from TCU. 2. Acute blood loss anemia secondary to #1-status post 1 unit PRBC. Stable. 3. Status post mechanical aortic valve replacement due to bicuspid aortic valve on chronic anticoagulation with Coumadin-INR 3.5 at discharge. Home INR regimen increased to 6mg daily. Repeat INR daily X 1 week. 4. Hypertension-stable, continue home hydrochlorothiazide/lisinopril regimen. 5. Hyperlipidemia-lipid panel elevated May 2017. Not on statin. Recommend outpatient follow-up. General: Alert, Oriented x3, Cooperative HEENT: Atraumatic, PERRLA, EOMI, Normocephalic Neck: Supple, No JVD, Negative Carotid Bruits Lungs: Clear to auscultation, Normal air movement Cardiovascular: Regular rate, No murmurs Abdomen: Bowel Sounds Present, Soft, Non Tender, Non-Distended Extremities: No clubbing, No cyanosis, No edema, Capillary Refill Less than 3 Seconds Skin: No rashes, No breakdown, - - Left thigh wound with wound VAC intact. Musculoskeletal: No Tenderness to Palpation of Joints or Extremities Neurological: Cranial nerves II-XII grossly intact, Neuro grossly intact Psych/Mental Status: Normal Affect, Appropriate Patient seen and examined prior to discharge. Physical assessment as noted above. Patient is stable for discharge to TCU. This patient was seen by MARCELA Del Rio under the supervision of Dr. Wheeler. Home Medications: Medications to take at Discharge Lisinopril/Hydrochlorothiazide [Zestoretic 11/25.5 Tablet] 10 mg PO DAILY 08/26/16 alprazolam 0.25 mg tablet 0.25 mg PO BID-TID PRN 06/29/17 Estradiol 0.5 mg PO QDAY 07/27/17 Estradiol 1 g VAGINAL Q3D 07/27/17 Amitriptyline HCl [Elavil] 25 mg PO QHS tablet 08/05/17 Oxycodone [Oxyir] 5 - 10 mg PO Q4H PRN PRN 7 Days tablet 08/05/17 Warfarin [Coumadin] 6 mg PO DAILY@1700 tablet 08/05/17 Primary Care Physician: Miya Goldman DO [Primary Care Provider] - Please follow up with your Primary Care Physician in: 1 Week Please Follow Up With: Wound Center When: Following DC from TCU Disposition: Detention facility Minutes spent on discharge:: 35 Patient Condition:: Stable Medical Necessity - Tobacco Use Smoking Status: Never smoker Meaningful Use Info Meaningful Use Diagnoses (Choose all that apply): None applicable
--- NOTE | 2017-08-05 11:15 | DS.PCM_ITS ---
Discharge Date and Diagnosis Date of Admission: 07/27/17 Date of Discharge: 08/05/17 - Primary Discharge Diagnosis 1. Acute traumatic left anterolateral thigh hematoma secondary to mechanical fall prior to admission 2. Acute blood loss anemia secondary to #1, requiring 1 unit packed red blood cells during admission 3. Status post mechanical aortic valve replacement due to bicuspid aortic valve on chronic anticoagulation with Coumadin 4. Hypertension 5. 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 Ten Valved conduit 05/28/09 Hyperlipidemia (Chronic) Hypertension (Chronic) Hospital Course and Treatment Consultations 08/02/17 10:46 Consult: Onc/Wound/junior accountant bookkeeper Routine Comment: Reason for Consult:: wound vac Operations: - - Incision and drainage 07/28/2017 of left anterolateral thigh hematoma secondary to mechanical fall prior to admission. Procedures: None Summary of Care Provided: Patient is a 52-year-old female admitted 07/27/2017 due to left thigh pain and swelling after mechanical fall prior to admission. She has a past medical history of hypertension, hyperlipidemia, history of aortic valve replacement with metallic valve on chronic anticoagulation with Coumadin. 1. Acute traumatic left anterolateral thigh hematoma secondary to mechanical fall prior to admission-status post incision and drainage 07/28/[address] Mccollum. Wound VAC in place. TCU at discharge. Continue PT/OT at TCU. Follow-up with wound center following discharge from TCU. 2. Acute blood loss anemia secondary to #1-status post 1 unit PRBC. Stable. 3. Status post mechanical aortic valve replacement due to bicuspid aortic valve on chronic anticoagulation with Coumadin-INR 3.5 at discharge. Home INR regimen increased to 6mg daily. Repeat INR daily X 1 week. 4. Hypertension-stable, continue home hydrochlorothiazide/lisinopril regimen. 5. Hyperlipidemia-lipid panel elevated May 2017. Not on statin. Recommend outpatient follow-up. General: Alert, Oriented x3, Cooperative HEENT: Atraumatic, PERRLA, EOMI, Normocephalic Neck: Supple, No JVD, Negative Carotid Bruits Lungs: Clear to auscultation, Normal air movement Cardiovascular: Regular rate, No murmurs Abdomen: Bowel Sounds Present, Soft, Non Tender, Non-Distended Extremities: No clubbing, No cyanosis, No edema, Capillary Refill Less than 3 Seconds Skin: No rashes, No breakdown, - - Left thigh wound with wound VAC intact. Musculoskeletal: No Tenderness to Palpation of Joints or Extremities Neurological: Cranial nerves II-XII grossly intact, Neuro grossly intact Psych/Mental Status: Normal Affect, Appropriate Patient seen and examined prior to discharge. Physical assessment as noted above. Patient is stable for discharge to TCU. This patient was seen by MARCELA Del Rio under the supervision of Dr. Wheeler. Home Medications: Medications to take at Discharge Lisinopril/Hydrochlorothiazide [Zestoretic 11/25.5 Tablet] 10 mg PO DAILY alprazolam 0.25 mg tablet 0.25 mg PO BID-TID PRN 06/29/17 Estradiol 0.5 mg PO QDAY 07/27/17 Estradiol 1 g VAGINAL Q3D 07/27/17 Amitriptyline HCl [Elavil] 25 mg PO QHS tablet 08/05/17 Oxycodone [Oxyir] 5 - 10 mg PO Q4H PRN PRN 7 Days tablet 08/05/17 Warfarin [Coumadin] 6 mg PO DAILY@1700 tablet 08/05/17 Primary Care Physician: Miya Goldman DO [Primary Care Provider] - Please follow up with your Primary Care Physician in: 1 Week Please Follow Up With: Wound Center When: Following DC from TCU Disposition: Residential facility Minutes spent on discharge:: 35 Patient Condition:: Stable Medical Necessity - Tobacco Use Smoking Status: Never smoker Meaningful Use Info Meaningful Use Diagnoses (Choose all that apply): None applicable
--- NOTE | 2017-08-05 11:27 | CASEMGMT ---
Patient is ready for d/c to [facility] TCU. CARY faxed orders to TCU. CARY also notified Maria E that patient will be coming today. Plan: d/c to [facility] TCU. Ana Paula MARTE
== END 2017-08-05 14:12 | disposition skilled nursing facility (03) | DRG 580 ==
LOC: ED 10:17 → PCU 12:39
PROVIDERS: Family Medicine; Nurse Practitioner Family; Physician Assistant; Surgery; Admitting Provider Internal Medicine; Emergency Provider Emergency Medicine; Family Provider Family Medicine; PCP Family Medicine; Visit Provider Internal Medicine
PROC: 0KCR0ZZ Extirpation of Matter from Left Upper Leg Muscle, Open Approach (ICD-10-PCS; principal; 2017-07-28 07:15)
DX: S70.12XA Contusion of left thigh, initial encounter (principal); D62 Acute posthemorrhagic anemia; W10.9XXA Fall (on) (from) unspecified stairs and steps, initial encounter; Z95.2 Presence of prosthetic heart valve; I10 Essential (primary) hypertension; Z79.899 Other long term (current) drug therapy; Z79.01 Long term (current) use of anticoagulants; E78.5 Hyperlipidemia, unspecified
CPT/HCPCS: 36415; 36416; 80048; 82962; 84134; 85014; 85018; 85027; 85610; 85730; 86850; 86900; 86920; 86922; 87070; 87075; 87102; 87205; 87206; 88304; 97110; 97116; 97161; 97166; 97530; 97535; 99284; J7040; P9016; A4216; J0330; J2405

== ENCOUNTER 2017-08-05 14:14 | Inpatient (IN) | payer BC, SELFPAY ==
--- NOTE | 2017-08-05 14:41 | NURSING ---
Patient admitted to room 3 from PCU via wheelchair. Patient oriented to room and call light system explained.
[2017-08-05 14:53] VITALS: BMI 28.5
--- NOTE | 2017-08-05 14:54 | PCM.HP.STD ---
Problem List (1) Fall Status: Acute (2) Cervical cancer Status: Chronic (3) GERD (gastroesophageal reflux disease) Status: Chronic (4) Anxiety Status: Chronic (5) Menopausal disorder Status: Chronic (6) Traumatic hematoma of left thigh Status: Acute Comment: traumatic intramuscular hematoma left anterolateral thigh (vastus lateralis muscle) (7) Thoracic aortic aneurysm Status: Chronic (8) Bicuspid aortic valve Status: Chronic (9) Hyperlipidemia Status: Chronic (10) Hypertension Status: Chronic History of Present Illness Date of Admission: 08/05/17 Chief Complaint: Here for rehabilitation, strengthening, wound care, prior to discharge home with spouse. The patient is a 52 year old Female with below past medical history presented to [facility] 07/27/2017 with fall, left thigh hematoma. 07/24/2017 X-ray left femur, intramedullary emilio throughout left femur. 07/24/2017 CT brain normal. 07/24/2017 CT left hip, left intramuscular hematoma inferior rectus femoris muscle. Anticoagulation on coumadin secondary to prosthetic aortic valve. Fell down 6 steps. WBC 8, Hemoglobin 10, Hematocrit 30, INR 1.8, coumadin already held by her family doctor. 07/27/2017 Admit to Hospital. Pain control. Consult Dr. Monique 07/28/2017 Dr. Mccollum performed left thigh incision, drainage, evacuation, excisional debridement traumatic, intramuscular hematoma. Wound VAC placed. 07/29/2017 Patient transfused 1 unit PRBC. Heparin drip, coumadin restarted. 08/05/2017 Admit to TCU for rehabilitation, strengthening, wound care, anticoagulation, pain control, prior to discharge home with spouse. 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 Ten Valved conduit 05/28/09 Bicuspid aortic valve (Chronic) Hyperlipidemia (Chronic) Hypertension (Chronic) Medical History: Medical History (Last Reviewed 06/29/17 @ 13:24 by Shannon Mcneil) Thoracic aortic aneurysm (Chronic) I71.2 History of aortic valve replacement with metallic valve (Chronic) Onset Date: ~05/28/[address] Ten Valved conduit 05/28/09 Nonrheumatic aortic (valve) insufficiency (Resolved) I35.1 Bicuspid aortic valve (Chronic) Q23.1 Hyperlipidemia (Chronic) E78.5 Hypertension (Chronic) I10 Abnormal Pap smear of cervix R87.619 History of malignant neoplasm of cervix Z85.41 GERD (gastroesophageal reflux disease) K21.9 Allergies fluoxetine Allergy (Mild, Verified 07/27/17 09:41) Other head ache gabapentin Allergy (Mild, Verified 07/27/17 09:41) Abd cramps/diarrhea venlafaxine Allergy (Mild, Verified 07/27/17 09:41) Pain in joints tramadol Adverse Reaction (Verified 07/27/17 09:41) Nausea Home Medications: Ambulatory Orders Medication Instructions Recorded Lisinopril/Hydrochlorothiazide 10 mg PO DAILY 08/26/16 [Zestoretic 10/12.5 Tablet] alprazolam 0.25 mg tablet 0.25 mg PO BID-TID PRN 06/29/17 Estradiol 0.5 mg PO QDAY 07/27/17 Estradiol 1 g VAGINAL Q3D 07/27/17 Amitriptyline HCl [Elavil] 25 mg PO QHS 08/05/17 Oxycodone [Oxyir] 5 - 10 mg PO Q4H PRN PRN 7 Days 08/05/17 tablet Warfarin [Coumadin] 6 mg PO DAILY@1700 08/05/17 Surgical History: Surgical History (Last Reviewed 06/29/17 @ 13:24 by Shannon Mcneil) Mechanical heart valve present Z95.2 femur surgery delivery delivered O82 History of thoracic aortic aneurysm repair Onset Date: ~05/28/09 Z98.890, Z86.79 Hx of abdominal hysterectomy Z90.710 Hx of cholecystectomy Z90.49 S/P gastroplasty Z98.890 Status post aortic valve replacement Onset Date: ~05/28/09 Z95.2 Surgical History: cholecystectomy, hysterectomy, - - Aortic valve replacement (mechanical). Gastroplasty for weight loss. Left femur fracture repair with hardware. Thoracic aortic aneurysm repair. . 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 Denies: Chills, Fever, Weight Change HEENT: Denies: Head Aches, Sinus Congestion, Sinus Drainage Cardiovascular: Denies: Chest Pain, Palpitations Respiratory: Denies: Cough, Shortness of breath at rest, Sputum production Gastrointestinal: Denies: Abdominal Pain, Nausea, Vomiting Genitourinary: Denies: Dysuria Musculoskeletal: Denies: Joint Pain, Joint Tenderness Skin: Denies: Rash, Wounds Neurological: Denies: Numbness, Tingling, Focal weakness Psychiatric: Denies: Anxiety, Depression, Homicidal Ideations, Suicidal Ideations Hematologic/ Lymphatic: Denies: Easy Bruising, Easy Bleeding VTE Information - Inpt Only VTE Present on Admission: No VTE Mechan Device Prophylaxis: Knee High TERRI Hose VTE Pharm Prophylaxis ordered?: No Reason prophylaxis not ordered:: Treatment Not Indicated Patient Problems: Active and Suspected Problems (Last Reviewed 06/29/17 @ 13:24 by Shannon Mcneil) Fall (Acute) - Physical Exam General: Alert, Oriented x3, Cooperative HEENT: Atraumatic, PERRLA, EOMI, Normocephalic Neck: Supple, No JVD, Negative Carotid Bruits Lungs: Clear to auscultation, Normal air movement Cardiovascular: Regular rate, No murmurs Abdomen: Bowel Sounds Present, Soft, Non Tender Extremities: No edema, Capillary Refill Less than 3 Seconds Skin: Ulcer/ Wound - Left lateral thigh wound, wound VAC in place, no sign of infection. Musculoskeletal: No Tenderness to Palpation of Joints or Extremities Neurological: Cranial nerves II-XII grossly intact Psych/Mental Status: Normal Affect, Appropriate Assessment/Plan All Active Problems (Last Reviewed 06/29/17 @ 13:24 by Shannon Mcneil) Fall (Acute) Open wound of left hip and thigh with complication (Acute) Traumatic hematoma of left thigh (Acute) Screen for colon cancer (Acute) Nonrheumatic aortic (valve) insufficiency (Resolved) 52 year old female with below past medical history hospitalized for left thigh hematoma, underwent incision, drainage, evacuation, excisional debridement with wound VAC placement per Dr. Mccollum 07/28/2017, admitted to TCU with debility, here for rehabilitation, strengthening, wound care, pain control, anticoagulation, prior to discharge home with spouse. Debility - PT/OT. Pain - Tylenol 1000MG Q8H PRN mild pain, Oxycodone 10MG Q4H PRN severe pain, Tramadol 50MG Q6H PRN moderate pain. Bowel - Miralax 17GM daily, Senna/colace 2 tablets BID, Dulcolax 10MG PO daily PRN. Pneumonia vaccination - Administer Prevnar 13 and/or Pneumovax 23 as necessary. DVT prophylaxis - Not necessary, already therapeutic on warfarin. Anxiety - Xanax 0.25MG PO Q6H PRN. Insomnia - Elavil 25MG QHS. Atrophic Vaginitis - Estradiol 1GM vaginal Q3 days. Mechanical aortic valve - Warfarin 6MG daily, follow INR.
[2017-08-05 14:59] VITALS: BP 121/78; PULSE 85; RESP 18; TEMP 36.9; O2SAT 99; BMI 28.6
--- NOTE | 2017-08-05 15:03 | HP.PCM_ITS ---
Problem List (1) Fall Status: Acute (2) Cervical cancer Status: Chronic (3) GERD (gastroesophageal reflux disease) Status: Chronic (4) Anxiety Status: Chronic (5) Menopausal disorder Status: Chronic (6) Traumatic hematoma of left thigh Status: Acute Comment: traumatic intramuscular hematoma left anterolateral thigh (vastus lateralis muscle) (7) Thoracic aortic aneurysm Status: Chronic (8) Bicuspid aortic valve Status: Chronic (9) Hyperlipidemia Status: Chronic (10) Hypertension Status: Chronic History of Present Illness Date of Admission: 08/05/17 Chief Complaint: Here for rehabilitation, strengthening, wound care, prior to discharge home with spouse. The patient is a 52 year old Female with below past medical history presented to [facility] 07/27/2017 with fall, left thigh hematoma. 07/24/2017 X-ray left femur, intramedullary emilio throughout left femur. 07/24/2017 CT brain normal. 07/24/2017 CT left hip, left intramuscular hematoma inferior rectus femoris muscle. Anticoagulation on coumadin secondary to prosthetic aortic valve. Fell down 6 steps. WBC 8, Hemoglobin 10, Hematocrit 30, INR 1.8, coumadin already held by her family doctor. 07/27/2017 Admit to Hospital. Pain control. Consult Dr. Monique 07/28/2017 Dr. Mccollum performed left thigh incision, drainage, evacuation, excisional debridement traumatic, intramuscular hematoma. Wound VAC placed. 07/29/2017 Patient transfused 1 unit PRBC. Heparin drip, coumadin restarted. 08/05/2017 Admit to TCU for rehabilitation, strengthening, wound care, anticoagulation, pain control, prior to discharge home with spouse. 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 Ten Valved conduit 05/28/09 Bicuspid aortic valve (Chronic) Hyperlipidemia (Chronic) Hypertension (Chronic) Medical History: Medical History (Last Reviewed 06/29/17 @ 13:24 by Shannon Mcneil) Thoracic aortic aneurysm (Chronic) I71.2 History of aortic valve replacement with metallic valve (Chronic) Onset Date: ~05/28/[address] Ten Valved conduit 05/28/09 Nonrheumatic aortic (valve) insufficiency (Resolved) I35.1 Bicuspid aortic valve (Chronic) Q23.1 Hyperlipidemia (Chronic) E78.5 Hypertension (Chronic) I10 Abnormal Pap smear of cervix R87.619 History of malignant neoplasm of cervix Z85.41 GERD (gastroesophageal reflux disease) K21.9 Allergies fluoxetine Allergy (Mild, Verified 07/27/17 09:41) Other head ache gabapentin Allergy (Mild, Verified 07/27/17 09:41) Abd cramps/diarrhea venlafaxine Allergy (Mild, Verified 07/27/17 09:41) Pain in joints tramadol Adverse Reaction (Verified 07/27/17 09:41) Nausea Home Medications: Ambulatory Orders Medication Instructions Recorded Lisinopril/Hydrochlorothiazide 10 mg PO DAILY 08/26/16 [Zestoretic 10/12.5 Tablet] alprazolam 0.25 mg tablet 0.25 mg PO BID-TID PRN 06/29/17 Estradiol 0.5 mg PO QDAY 07/27/17 Estradiol 1 g VAGINAL Q3D 07/27/17 Amitriptyline HCl [Elavil] 25 mg PO QHS 08/05/17 Oxycodone [Oxyir] 5 - 10 mg PO Q4H PRN PRN 7 Days 08/05/17 tablet Warfarin [Coumadin] 6 mg PO DAILY@1700 08/05/17 Surgical History: Surgical History (Last Reviewed 06/29/17 @ 13:24 by Shannon Mcneil) Mechanical heart valve present Z95.2 femur surgery delivery delivered O82 History of thoracic aortic aneurysm repair Onset Date: ~05/28/09 Z98.890, Z86.79 Hx of abdominal hysterectomy Z90.710 Hx of cholecystectomy Z90.49 S/P gastroplasty Z98.890 Status post aortic valve replacement Onset Date: ~05/28/09 Z95.2 Surgical History: cholecystectomy, hysterectomy, - - Aortic valve replacement ( mechanical). Gastroplasty for weight loss. Left femur fracture repair with hardware. Thoracic aortic aneurysm repair. . 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 Denies: Chills, Fever, Weight Change HEENT: Denies: Head Aches, Sinus Congestion, Sinus Drainage Cardiovascular: Denies: Chest Pain, Palpitations Respiratory: Denies: Cough, Shortness of breath at rest, Sputum production Gastrointestinal: Denies: Abdominal Pain, Nausea, Vomiting Genitourinary: Denies: Dysuria Musculoskeletal: Denies: Joint Pain, Joint Tenderness Skin: Denies: Rash, Wounds Neurological: Denies: Numbness, Tingling, Focal weakness Psychiatric: Denies: Anxiety, Depression, Homicidal Ideations, Suicidal Ideations Hematologic/ Lymphatic: Denies: Easy Bruising, Easy Bleeding VTE Information - Inpt Only VTE Present on Admission: No VTE Mechan Device Prophylaxis: Knee High TERRI Hose VTE Pharm Prophylaxis ordered?: No Reason prophylaxis not ordered:: Treatment Not Indicated Patient Problems: Active and Suspected Problems (Last Reviewed 06/29/17 @ 13:24 by Shannon Mcneil) Fall (Acute) - Physical Exam General: Alert, Oriented x3, Cooperative HEENT: Atraumatic, PERRLA, EOMI, Normocephalic Neck: Supple, No JVD, Negative Carotid Bruits Lungs: Clear to auscultation, Normal air movement Cardiovascular: Regular rate, No murmurs Abdomen: Bowel Sounds Present, Soft, Non Tender Extremities: No edema, Capillary Refill Less than 3 Seconds Skin: Ulcer/ Wound - Left lateral thigh wound, wound VAC in place, no sign of infection. Musculoskeletal: No Tenderness to Palpation of Joints or Extremities Neurological: Cranial nerves II-XII grossly intact Psych/Mental Status: Normal Affect, Appropriate Assessment/Plan All Active Problems (Last Reviewed 06/29/17 @ 13:24 by Shannon Mcneil) Fall (Acute) Open wound of left hip and thigh with complication (Acute) Traumatic hematoma of left thigh (Acute) Screen for colon cancer (Acute) Nonrheumatic aortic (valve) insufficiency (Resolved) 52 year old female with below past medical history hospitalized for left thigh hematoma, underwent incision, drainage, evacuation, excisional debridement with wound VAC placement per Dr. Mccollum 07/28/2017, admitted to TCU with debility, here for rehabilitation, strengthening, wound care, pain control, anticoagulation, prior to discharge home with spouse. * Debility - PT/OT. * Pain - Tylenol 1000MG Q8H PRN mild pain, Oxycodone 10MG Q4H PRN severe pain, Tramadol 50MG Q6H PRN moderate pain. * Bowel - Miralax 17GM daily, Senna/colace 2 tablets BID, Dulcolax 10MG PO daily PRN. * Pneumonia vaccination - Administer Prevnar 13 and/or Pneumovax 23 as necessary. * DVT prophylaxis - Not necessary, already therapeutic on warfarin. * Anxiety - Xanax 0.25MG PO Q6H PRN. * Insomnia - Elavil 25MG QHS. * Atrophic Vaginitis - Estradiol 1GM vaginal Q3 days. * Mechanical aortic valve - Warfarin 6MG daily, follow INR.
[2017-08-05 15:41] VITALS: BP 105/55; PULSE 84; RESP 16; TEMP 36.7; O2SAT 98
[2017-08-05] MEDS: oxyCODONE 5 MG Tablet 10 MG PO ×2 (15:56→20:57)
[2017-08-05] MEDS: Senna/Docusate Sodium 1 Tablet 2 TABLET PO (18:21)
--- NOTE | 2017-08-05 18:34 | NURSING ---
NO to decrease coumadin to 5mg and give tonight and recheck INR in AM.
[2017-08-05] MEDS: Amitriptyline 25 MG Tablet PO (20:52)
[2017-08-05] MEDS: traMADol 50 MG Tablet PO (23:53)
[2017-08-06] MEDS: Senna/Docusate Sodium 1 Tablet 2 TABLET PO ×2 (05:26→18:00)
[2017-08-06 05:27] VITALS: BP 101/57; PULSE 69
[2017-08-06] MEDS: Estradiol 0.5 MG Tablet PO (05:27)
[2017-08-06] MEDS: Lisinopril 10 MG Tablet PO (05:27)
[2017-08-06] MEDS: HYDROCHLOROTHIAZIDE 12.5 MG CAPSULE PO (05:27)
--- NOTE | 2017-08-06 06:19 | NURSING ---
Code status discussed with pt at this time. Wishes to be a Full Code.
[2017-08-06 07:04] LABS: Absolute Lymphocyte Count 1.69 X10^3/ul (0.83-4.51); Absolute Neutrophil Count 4.2 X10^3/uL (2.0-7.7); Basophil# 0.03 X10^3/uL; Basophil% 0.4 % (0-1); Eosinophil# 0.27 X10^3/uL; Eosinophils% 3.9 % (0-5); Hematocrit 30.8 % (37-47); Hemoglobin 10.3 g/dl (12.0-15.0); Lymphocyte # 1.69 X10^3/ul (4.0); Lymphocyte % 24.5 % (19-41); Mean Corp Hgb Conc 33.4 g/gl (32-36); Mean Corpuscular Hgb 30.1 pg (27.0-32.0); Mean Corpuscular Volume 90.1 fL (81-99); Mean Platelet Vol. 9.2 fl (6.2-12.0); Monocyte# 0.69 X10^3/uL; Neutrophil # 4.16 X10^3/uL (2.7-7.7); Neutrophil % 60.2 % (47-70); Platelet Count 387 K/mm3 (150-450); RBC Distribution Width CV 13.6 % (11.6-14.6); Red Blood Count 3.42 M/mm3 (4.2-5.4); White Blood Count 6.9 K/mm3 (4.4-11.0)
[2017-08-06 07:08] LABS: POSITIVE COUNT NO; POSITIVE DIFFERENTIAL NO; POSITIVE MORPHOLOGY NO
[2017-08-06 07:19] LABS: Prothrombin Time (Protime)PT. 35.3 SECONDS (11.7-14.9)
[2017-08-06 07:21] LABS: International Normalized Ratio 3.5
[2017-08-06 08:06] LABS: Anion Gap 5 (5-15); BUN 20 mg/dL (7-18); Chloride 103 mmol/L (98-107); Creatinine, Serum 0.74 mg/dL (0.55-1.02); EST Glomerular Filtration Rate 88 mL/min (>60); Est Glom Filt Rate - Afr Amer 106 mL/min (>60); Estimated Creatinine Clearance 76.79 ml/min; Glucose 95 mg/dL (74-106); Potassium 4.2 mmol/L (3.5-5.1); Sodium Level 137 mmol/L (136-145)
--- NOTE | 2017-08-06 10:00 | NURSING ---
pt c/o feeling confused. alert and oriented x3. states that she does not remember why she is here. reoriented to why she is here and what happened prior to admission. denies any pain. will monitor. chelsie washburn aware and per this has happened at home before.
--- NOTE | 2017-08-06 12:01 | NURSING ---
DR KELLEY AWARE OF INR THIS AM, NO NEW ORDERS, CONTINUE COUMADIN ORDERED, HAS PROSTHETIC HEART VALVES
--- NOTE | 2017-08-06 12:15 | NURSING ---
pt crying out. states that she is confused and does not know why she is here and that she wants to go home. pt reoriented to surrounding, calmed some and pt now calling to talk to him. will monitor.
[2017-08-06] MEDS: oxyCODONE 5 MG Tablet 10 MG PO ×2 (13:15→18:00)
[2017-08-06] MEDS: Tuberculin,Purif.prot.deriv. 50 TU/ML Vial 5 ML ID (13:18)
[2017-08-06 15:33] VITALS: BP 101/71; PULSE 83; RESP 20; TEMP 36.7; O2SAT 96
[2017-08-06] MEDS: Acetaminophen 500 MG Tablet 1000 MG PO (20:32)
[2017-08-06] MEDS: Amitriptyline 25 MG Tablet PO (20:32)
--- NOTE | 2017-08-06 22:37 | NURSING ---
2030 pt resting quietly in the bed and reports tingling in her toes, which is new and though her toes were discolored. pt able to wiggle her toes and they have good capillary refill although the lt foot is cooler to the touch than the rt. heels are intact. pt is rating per pain a 7/10 to her thigh and tylenol offered and given at this time. wound vac intact and patent [id number] pt resting quietly with eyes closed with no needs voiced call light in reach
[2017-08-07] MEDS: oxyCODONE 5 MG Tablet 10 MG PO ×3 (05:12→21:30)
[2017-08-07] MEDS: Lisinopril 10 MG Tablet PO (05:13)
[2017-08-07] MEDS: HYDROCHLOROTHIAZIDE 12.5 MG CAPSULE PO (05:13)
[2017-08-07] MEDS: Senna/Docusate Sodium 1 Tablet 2 TABLET PO (05:13)
[2017-08-07] MEDS: Estradiol 0.5 MG Tablet PO (05:14)
[2017-08-07] MEDS: ALPRAZolam 0.25 MG Tablet PO ×2 (06:00→15:27)
[2017-08-07 06:46] LABS: International Normalized Ratio 3.2; Prothrombin Time (Protime)PT. 33.3 SECONDS (11.7-14.9)
[2017-08-07 10:00] VITALS: PULSE 78; RESP 16; O2SAT 98
--- NOTE | 2017-08-07 14:08 | NURSING ---
Addendum entered by Lita Potter 08/07/17 15:35: Wound vac alarming blockage early AM, reinforced but still showing small leak, all clamps open, white chuncky material noted in tubing, this afternoon pt c/o severe pain 12/10, tearful & crying. Changed dressing. pt medicated with oxyir before changing. Pt very dramatic, crying, putting self into a panic attack, even with just lightly removing corner of drape on distal end of wound. & son at bedside. Xanax given post change. See measurements in shift clinical findings wound vac intervention. Original Note: Pt crying out in pain, complains of pain 10/10 left posterior thigh of left foot. Family has concerns of blood clot, complains of worsening pain with flexion and extension of foot. Lita FISHMAN aware
[2017-08-07 16:00] VITALS: BP 129/53; PULSE 90; RESP 28; TEMP 36.7; O2SAT 98
[2017-08-07] MEDS: Amitriptyline 25 MG Tablet PO (21:29)
[2017-08-08 05:00] VITALS: BP 102/63; PULSE 65
[2017-08-08] MEDS: Lisinopril 10 MG Tablet PO (05:04)
[2017-08-08] MEDS: Estradiol 0.5 MG Tablet PO (05:05)
[2017-08-08] MEDS: HYDROCHLOROTHIAZIDE 12.5 MG CAPSULE PO (05:05)
[2017-08-08] MEDS: oxyCODONE 5 MG Tablet 10 MG PO ×3 (05:14→20:15)
[2017-08-08 06:18] LABS: Prothrombin Time (Protime)PT. 36.1 SECONDS (11.7-14.9)
[2017-08-08 06:32] LABS: International Normalized Ratio 3.6
[2017-08-08] MEDS: traMADol 50 MG Tablet PO (08:00)
--- NOTE | 2017-08-08 14:16 | NURSING ---
wound VAC dressing had to be changed yesterday so will wait until tomorrow to change the VAC dressing. Good seal noted at 150mmHg low cont suction.
[2017-08-08 15:36] VITALS: BP 95/53; PULSE 84; RESP 18; TEMP 36.4; O2SAT 98
--- NOTE | 2017-08-08 18:35 | NURSING ---
Patient requesting PRN for tums, NO for 500mg tums PO q4h PRN.
[2017-08-08] MEDS: Calcium Carbonate 500 MG Tablet PO (18:38)
[2017-08-08] MEDS: Amitriptyline 25 MG Tablet PO (20:15)
--- NOTE | 2017-08-08 20:17 | NURSING ---
Pt given prn oxyir 10mg per request, stated please wake me up and stay on top of it during the night referring to pain medication, which is allowed q4 hours per orders. RN aware, continuing to monitor.
[2017-08-09] MEDS: oxyCODONE 5 MG Tablet 10 MG PO ×3 (05:04→20:06)
[2017-08-09] MEDS: HYDROCHLOROTHIAZIDE 12.5 MG CAPSULE PO (05:05)
[2017-08-09] MEDS: Estradiol 0.5 MG Tablet PO (05:05)
[2017-08-09] MEDS: Lisinopril 10 MG Tablet PO (05:06)
--- NOTE | 2017-08-09 12:52 | NURSING ---
wound photo: left lateral thigh
--- NOTE | 2017-08-09 13:02 | CHAPLAIN ---
Type of Pastoral Visit _x__ Initial Visit ___ Follow-up Visit ___ On-call Visit ___ General Patient Visit ___ Spiritual Assessment ___ Family Conference ___ Bereavement ___ Rapid Response ___ Code Blue ___ Other (describe below) Pastoral Care Referral From _x__ Patient ___ Family ___ Nurse ___ Physician ___ Rodbuster ___ Shearer Helper ___ Other (describe below) Sacrament/Intervention _x__ Active listening ___ Anointing ___ Hoahaoism ___ Bereavement ___ Communion ___ Kandy exploration ___ ___ Life review ___ Prayer ___ Reconciliation ___ Sacrament of Sick ___ Supportive presence ___ Wedding ___ Other (describe below) Pastoral Comments
[2017-08-09] MEDS: traMADol 50 MG Tablet PO (14:06)
[2017-08-09 15:06] VITALS: BP 88/50
[2017-08-09] MEDS: Acetaminophen 500 MG Tablet 1000 MG PO (15:08)
--- NOTE | 2017-08-09 15:12 | NURSING ---
pt denies dizziness or lightheadedness at this time. states her physicians like to keep her BP low. will recheck and continue to monitor
[2017-08-09] MEDS: Senna/Docusate Sodium 1 Tablet 2 TABLET PO (16:35)
[2017-08-09 16:40] VITALS: BP 94/58
[2017-08-09] MEDS: Amitriptyline 25 MG Tablet PO (20:07)
--- NOTE | 2017-08-09 20:07 | NURSING ---
Pt given prn oxyir 10mg per request for c/o throbbing leg pain rating 8/10. Pt alert and pleasant. Repositioned for comfort. Continuing to monitor.
[2017-08-10] MEDS: HYDROCHLOROTHIAZIDE 12.5 MG CAPSULE PO (05:37)
[2017-08-10] MEDS: Estradiol 0.5 MG Tablet PO (05:37)
[2017-08-10] MEDS: Lisinopril 10 MG Tablet PO (05:38)
[2017-08-10] MEDS: oxyCODONE 5 MG Tablet 10 MG PO ×3 (05:38→17:43)
[2017-08-10 10:00] VITALS: PULSE 78; RESP 16; O2SAT 96
--- NOTE | 2017-08-10 10:58 | CASEMGMT ---
Plan of care meeting held. Resident present as well as resident spouse. Resident requesting for discharge date to be set for 08/13/17. Team is agreeable to discharge date. Resident plans to discharge home with spouse at time of discharge. Team recommending for resident to have continued physical therapy and retirement within the home. Resident is agreeable to recommendation and requesting for home health services to be set up through [facility] ([facility]). Resident reporting to not have a walker within the home and to need one at time of discharge. Resident does not have a preference of durable medical equipment, [employer] to be utilized. Support given. Proposed discharge date: 08/13/17 PLAN: Discharge home with spouse and home health services. Will continue to follow. Cassie CUMMINGS, FIELD H[employer]OWER
--- NOTE | 2017-08-10 12:14 | CASEMGMT ---
Insurance Clinical information faxed. Pending continued stay approval at this time. Auth#[id number] Cassie CUMMINGS, COIL CONNECTOR
--- NOTE | 2017-08-10 12:48 | NURSING ---
Pt wound vac alarming blockage, thick white clots noted in tubing. Rajni wound nurse contacted, Wound nurse changed canister at this time.
--- NOTE | 2017-08-10 15:06 | NURSING ---
Wound VAC dressing changed d/t blockage alarm. attempted to just change the canister and trac pad, but was not able to get a good seal so this nurse changed the whole dressing. pt tolerated well.
[2017-08-10 15:34] VITALS: BP 95/60; PULSE 60; RESP 16; TEMP 36.8; O2SAT 97
[2017-08-10] MEDS: traMADol 50 MG Tablet PO (15:37)
[2017-08-10] MEDS: Amitriptyline 25 MG Tablet PO (20:29)
[2017-08-10] MEDS: Calcium Carbonate 500 MG Tablet PO (20:33)
--- NOTE | 2017-08-10 21:26 | PCM.DC ---
- Discharge Diagnoses Current Active Problems: Current Active and Chronic Problems (Last Reviewed 06/29/17 @ 13:24 by Shannon Mcneil) Fall (Acute) Cervical cancer (Chronic) GERD (gastroesophageal reflux disease) (Chronic) Anxiety (Chronic) Menopausal disorder (Chronic) You will use the following diet at home:: No restrictions, Regular Your food should be the consistency of: Regular Your liquids should be the consistency of: Regular/Thin Discharge Activity: Return to Normal Activity, May Shower, Use Walker Weight Bearing Status: Weight bearing as tolerated Call your doctor if you observe: Fever of 101 or Higher, Inability to urinate, Inability to have a bowel movement, Shortness of breath, Chest pain, Uncontrolled pain Allergies/Adverse Reactions: Allergies fluoxetine Allergy (Mild, Verified 07/27/17 09:41) Other head ache gabapentin Allergy (Mild, Verified 07/27/17 09:41) Abd cramps/diarrhea venlafaxine Allergy (Mild, Verified 07/27/17 09:41) Pain in joints tramadol Adverse Reaction (Verified 07/27/17 09:41) Nausea Medications to take at Discharge Lisinopril/Hydrochlorothiazide [Zestoretic /.5 Tablet] 10 mg PO DAILY 08/26/16 alprazolam 0.25 mg tablet 0.25 mg PO BID-TID PRN 06/29/17 Estradiol 0.5 mg PO QDAY 07/27/17 Estradiol 1 g VAGINAL Q3D 07/27/17 Acetaminophen [Tylenol] 1,000 mg PO Q8H PRN tablet 08/10/17 Amitriptyline HCl [Elavil] 25 mg PO QHS #30 tab 08/10/17 Calcium Carbonate [Tums] 500 mg PO Q4H PRN PRN tablet 08/10/17 Nutritional Supplement [Tha - ORANGE FLAVOR] 1 packet PO BIDCM #60 packet 08/10/17 Oxycodone [Oxyir] 5 - 10 mg PO Q4H PRN PRN 7 Days #42 tab 08/10/17 Polyethylene Glycol 3350 [Miralax] 17 gm PO DAILY #30 packet 08/10/17 Senna/Docusate Sodium [Senokot-S] 2 tab PO BID #120 tab 08/10/17 Warfarin [Coumadin] 3 mg PO DAILY@1700 #30 tab 08/10/17 traMADol [Ultram] 50 mg PO Q6H PRN PRN #42 tab 08/10/17 The following prescriptions were given: Oxycodone [Oxyir] 5 - 10 mg PO Q4H PRN PRN 7 Days #42 tab PRN Reason: Severe Pain (6-10/10) traMADol [Ultram] 50 mg PO Q6H PRN PRN #42 tab PRN Reason: Moderate Pain (4-5/10) Amitriptyline HCl [Elavil] 25 mg PO QHS #30 tab Polyethylene Glycol 3350 [Miralax] 17 gm PO DAILY #30 packet Warfarin [Coumadin] 3 mg PO DAILY@1700 #30 tab Nutritional Supplement [Tha - ORANGE FLAVOR] 1 packet PO BIDCM #60 packet Senna/Docusate Sodium [Senokot-S] 2 tab PO BID #120 tab Orders to be completed after discharge: Prothrombin Time w/INR Time Frame: 1 Day, Location: Laboratory Primary Care Physician: Miya Goldman DO [Primary Care Provider] - Please follow up with your Primary Care Physician in: 1 week. Please Follow Up With: Miya Goldman DO When: at discharge Please Follow Up With: Clinic,Wound When: at discharge Proposed Discharge Date: 08/13/17
--- NOTE | 2017-08-10 21:28 | PCM.DC.SUM ---
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 Ten Valved conduit 05/28/09 Bicuspid aortic valve (Chronic) Hyperlipidemia (Chronic) Hypertension (Chronic) Hospital Course and Treatment Imaging Results: 08/05/17 15:05 Diet: Regular Diet Food consistency:: Regular Liquid Consistency:: Regular/Thin Type of Dietary Supplement:: Tha (Clark) Is pt able to select menu?: Yes Consultations 08/05/17 Consult: Onc/Wound/hip hop dancer Routine Comment: left thigh hematoma Operations: None, - - Incision and drainage 07/28/2017 of left anterolateral thigh hematoma secondary to mechanical fall prior to admission. Procedures: None Summary of Care Provided: The patient is a 52 year old Female with below past medical history hospitalized for left thigh hematoma, underwent incision, drainage, evacuation, excisional debridement with wound VAC placement per Dr. Mccollum 07/28/2017, admitted to TCU with debility, here for rehabilitation, strengthening, wound care, pain control, anticoagulation, prior to discharge home with spouse. Discharge home with spouse, Home Health Services. Discharge Diet: No Restrictions Discharge Activity: Return to Normal Activity, May Shower, Use Walker Weight Bearing Status: Weight bearing as tolerated Call your doctor if you observe: Fever of 101 or Higher, Inability to urinate, Inability to have a bowel movement, Shortness of breath, Chest pain, Uncontrolled pain Home Medications: Medications to take at Discharge Lisinopril/Hydrochlorothiazide [Zestoretic 10/12.5 Tablet] 10 mg PO DAILY 08/26/16 alprazolam 0.25 mg tablet 0.25 mg PO BID-TID PRN 06/29/17 Estradiol 0.5 mg PO QDAY 07/27/17 Estradiol 1 g VAGINAL Q3D 07/27/17 Acetaminophen [Tylenol] 1,000 mg PO Q8H PRN tablet 08/10/17 Amitriptyline HCl [Elavil] 25 mg PO QHS #30 tab 08/10/17 Calcium Carbonate [Tums] 500 mg PO Q4H PRN PRN tablet 08/10/17 Nutritional Supplement [Tha - ORANGE FLAVOR] 1 packet PO BIDCM #60 packet 08/10/17 Oxycodone [Oxyir] 5 - 10 mg PO Q4H PRN PRN 7 Days #42 tab 08/10/17 Polyethylene Glycol 3350 [Miralax] 17 gm PO DAILY #30 packet 08/10/17 Senna/Docusate Sodium [Senokot-S] 2 tab PO BID #120 tab 08/10/17 Warfarin [Coumadin] 3 mg PO DAILY@1700 #30 tab 08/10/17 traMADol [Ultram] 50 mg PO Q6H PRN PRN #42 tab 08/10/17 Following Prescrptions Were Given to Patient: Oxycodone [Oxyir] 5 - 10 mg PO Q4H PRN PRN 7 Days #42 tab PRN Reason: Severe Pain (6-10/10) traMADol [Ultram] 50 mg PO Q6H PRN PRN #42 tab PRN Reason: Moderate Pain (4-5/10) Amitriptyline HCl [Elavil] 25 mg PO QHS #30 tab Polyethylene Glycol 3350 [Miralax] 17 gm PO DAILY #30 packet Warfarin [Coumadin] 3 mg PO DAILY@1700 #30 tab Nutritional Supplement [Tha - ORANGE FLAVOR] 1 packet PO BIDCM #60 packet Senna/Docusate Sodium [Senokot-S] 2 tab PO BID #120 tab Other Amb Orders: Prothrombin Time w/INR Time Frame: 1 Day, Location: Laboratory Primary Care Physician: Miya Goldman DO [Primary Care Provider] - Please follow up with your Primary Care Physician in: 1 week. Please Follow Up With: Miya Goldman DO When: at discharge Please Follow Up With: Clinic,Wound When: at discharge Disposition: Home with Home Health Minutes spent on discharge:: 35 Patient Condition:: Stable Medical Necessity - Tobacco Use Smoking Status: Never smoker Tobacco Use: Non-smoker Meaningful Use Info Meaningful Use Diagnoses (Choose all that apply): None applicable
--- NOTE | 2017-08-10 21:30 | PCM.PN.HH ---
Home Health Note - Plan Overview of reason of hospitalization: The patient is a 52 year old Female with below past medical history hospitalized for left thigh hematoma, underwent incision, drainage, evacuation, excisional debridement with wound VAC placement per Dr. Mccollum 07/28/2017, admitted to TCU with debility, here for rehabilitation, strengthening, wound care, pain control, anticoagulation, prior to discharge home with spouse. Discharge home with spouse, Home Health Services. 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 current use of anticoagulant (Chronic) Open wound of left hip and thigh with complication (Acute) Traumatic hematoma of left thigh (Acute) Screen for colon cancer (Acute) Thoracic aortic aneurysm (Chronic) History of aortic valve replacement with metallic valve (Chronic ~05/28/09) Bicuspid aortic valve (Chronic) Hyperlipidemia (Chronic) Hypertension (Chronic) - Requirements and Reasons Disciplines Needed/Ordered: Jail, Physical Therapy Reason for Disciplines: Wound Care, Gait Training, Stair Training, Fall Prevention, Home Safety/Equipment Instruction, Balance and/or Posture Training, Transfer Training Related To: Limited/Poor Endurance, Physical Impairments, Unsteady Gait/Balance, Fall Risk Patient is unable to leave the home: Without Aid of Supportive Devices (crutches, cane, wheelchair, walker), Without the assistance of another person
[2017-08-11 06:19] LABS: International Normalized Ratio 2.3; Prothrombin Time (Protime)PT. 25.2 SECONDS (11.7-14.9)
[2017-08-11] MEDS: HYDROCHLOROTHIAZIDE 12.5 MG CAPSULE PO (06:36)
[2017-08-11] MEDS: Lisinopril 10 MG Tablet PO (06:36)
[2017-08-11] MEDS: Estradiol 0.5 MG Tablet PO (06:36)
[2017-08-11 10:00] VITALS: PULSE 68; RESP 18; O2SAT 96
--- NOTE | 2017-08-11 11:56 | CASEMGMT ---
Insurance Continued stay approved through 08/12/17. Resident planning to discharge on 08/13/17, will update insurance to confirm discharge on 08/15/17. Auth#[id number] Cassie CUMMINGS, BOARDING MOTHER
--- NOTE | 2017-08-11 12:02 | NURSING ---
This nurse into check on Pt and see how her pain was, Pt has no complaints of pain at this time but asked this nurse if once she returns home on tuesday is she can have intercourse with her with that wound vac on. This nurse told her it may be best to talk with and wound nurse regarding that. Pt voiced understanding. Lita FISHMAN aware
[2017-08-11] MEDS: oxyCODONE 5 MG Tablet 10 MG PO ×2 (14:26→20:46)
--- NOTE | 2017-08-11 14:44 | CASEMGMT ---
Social Work Telephone call to [facility] ([facility]), Jodi. This social media strategist making referral for physical therapy and longterm. Order completed. Telephone call to Kaelyn Del Valle. This social media strategist making referral for front wheeled walker. Kaelyn to have walker delivered to resident room prior to resident discharge. Order faxed. Spoke with resident in room and confirming all above discharge planning. Resident is agreeable to all discharge planning and plans to discharge home with spouse. Resident spouse to provide transportation home for resident at time of discharge. Resident voicing no further needs. Support given. Proposed discharge date: 08/13/17 PLAN: Discharge home with spouse and home health services. Cassie CUMMINGS, CIVIL DRAFTSMAN
--- NOTE | 2017-08-11 14:57 | MDS.RN ---
Pain interview for SANDRO 08/12/17 completed.
[2017-08-11 15:28] VITALS: BP 106/61; PULSE 66; RESP 16; TEMP 37; O2SAT 97
--- NOTE | 2017-08-11 15:29 | PCM.PN.RX ---
<Jeremiah Ross D - Last Filed: 08/11/17 15:29> Progress Note - Pharmacy Subjective: TCU Admission Objective: Allergies fluoxetine Allergy (Mild, Verified 07/27/17 09:41) Other head ache gabapentin Allergy (Mild, Verified 07/27/17 09:41) Abd cramps/diarrhea venlafaxine Allergy (Mild, Verified 07/27/17 09:41) Pain in joints tramadol Adverse Reaction (Verified 07/27/17 09:41) Nausea Current Medications Generic Name Dose Route Start Last Admin Trade Name Freq PRN Reason Stop Dose Admin Acetaminophen 1,000 mg 08/05/17 15:12 08/09/17 15:08 Tylenol PO 1,000 mg Q8H PRN Administration MILD PAIN (1-3/10) Alprazolam 0.25 mg 08/05/17 15:12 08/07/17 15:27 Xanax PO 0.25 mg Q6H PRN Administration ANXIETY Amitriptyline HCl 25 mg 08/05/17 22:00 08/10/17 20:29 Elavil PO 25 mg QHS PUJA Administration Bisacodyl 10 mg 08/05/17 14:54 Dulcolax PO DAILY PRN Constipation Calcium Carbonate 500 mg 08/08/17 18:34 08/10/17 20:33 Tums PO 500 mg Q4H PRN PRN Administration stomach Estradiol 0.5 mg 08/06/17 06:00 08/11/17 06:36 Estradiol PO 0.5 mg DAILY PUJA Administration Hydrochlorothiazide 12.5 mg 08/09/17 17:51 08/11/17 06:36 Hydrochlorothiazide PO 12.5 mg DAILY PUJA Administration Lisinopril 10 mg 08/09/17 17:51 08/11/17 06:36 Zestril PO 10 mg DAILY PUJA Administration Nutritional Formula 1 packet 08/05/17 17:00 08/11/17 08:23 Tha - Beaver Flavor PO Not Given BIDCM [facility] Oxycodone HCl 10 mg 08/05/17 15:26 08/11/17 14:26 Oxyir PO 10 mg Q4H PRN PRN Administration SEVERE PAIN (6-10/10) Polyethylene Glycol 17 gm 08/06/17 06:00 08/11/17 06:36 Miralax PO Not Given DAILY [facility] Senna/Docusate Sodium 2 tablet 08/05/17 18:00 08/11/17 06:37 Senokot-S, Mague-Colace PO Not Given BID [facility] Tramadol HCl 50 mg 08/05/17 15:26 08/10/17 15:37 Ultram PO 50 mg Q6H PRN PRN Administration MODERATE PAIN (4-5/10) Tuberculin PPD 5 tu 08/13/17 10:00 Tubersol, Aplisol, Ppd ID 08/13/17 10:01 X1 ONE Warfarin Sodium 3 mg 08/08/17 17:00 08/10/17 17:43 Coumadin (Pbkc) PO 3 mg DAILY@1700 [facility] Administration Problem List (Last Reviewed 06/29/17 @ 13:24 by Shannon cMneil) Fall (Acute) Cervical cancer (Chronic) GERD (gastroesophageal reflux disease) (Chronic) Anxiety (Chronic) Menopausal disorder (Chronic) Vital Signs Temp Pulse Resp BP Pulse Ox 98.2 F 68 18 95/60 96 08/10/17 15:34 08/11/17 10:00 08/11/17 10:00 08/10/17 15:34 08/11/17 10:00 Oxygen Delivery Method Room Air Weight: 74.417 kg Body Mass Index (BMI) 28.5 Sodium 137 mmol/L (136-145) 08/06/17 06:39 Potassium 4.2 mmol/L (3.5-5.1) 08/06/17 06:39 Chloride 103 mmol/L (98-107) 08/06/17 06:39 Carbon Dioxide 29.0 mmol/L (21.0-32.0) 08/06/17 06:39 Anion Gap 5 (5-15) 08/06/17 06:39 BUN 20 mg/dL (7-18) H 08/06/17 06:39 Creatinine 0.74 mg/dL (0.55-1.02) 08/06/17 06:39 Est GFR (MDRD) Af Amer 106 mL/min (>60) 08/06/17 06:39 Est GFR (MDRD) Non-Af 88 mL/min (>60) 08/06/17 06:39 BUN/Creatinine Ratio 27.0 RATIO (10-20) H 08/06/17 06:39 Glucose 95 mg/dL (74-106) 08/06/17 06:39 Assessment/Plan: 1) Pain APAP for mild pain, tramadol for moderate pain, oxycodone for severe pain. Continue to monitor prn medication use, daily pain scores. 2) HTN Lisinopril, HCTZ. Continue to monitor BP/HR, renal function, electrolytes. 3) Hormone Replacement Estradiol daily. Continue to monitor clinically. 4) Indigestion Tums prn. Continue to monitor prn medication use, s/s GI distress. 5) Mechanical Valve Warfarin daily. Continue to monitor PT/INR, s/s bleeding/clot. 6) Nutrition Tha twice daily. Continue to monitor clinically. Psychotropic Medications: 7) Anxiety/Depression/Insomnia Amitriptyline at HS, alprazolam prn. Continue to monitor prn medication use, s/s anxiety. Unnecessary Medications: None Bowel Regimen: 8) Senna/s, PEG, prn bisacodyl. Continue to monitor prn medication use, for constipation/diarrhea. Date of Note:: 08/11/17 - Provider Comments Provider responsibility: Provider responsible to enter orders to implement recommendations <Marcel Moya Chi - Last Filed: 08/11/17 17:39> Progress Note - Pharmacy Subjective: [] Objective: Allergies fluoxetine Allergy (Mild, Verified 07/27/17 09:41) Other head ache gabapentin Allergy (Mild, Verified 07/27/17 09:41) Abd cramps/diarrhea venlafaxine Allergy (Mild, Verified 07/27/17 09:41) Pain in joints tramadol Adverse Reaction (Verified 07/27/17 09:41) Nausea Current Medications Generic Name Dose Route Start Last Admin Trade Name Freq PRN Reason Stop Dose Admin Acetaminophen 1,000 mg 08/05/17 15:12 08/09/17 15:08 Tylenol PO 1,000 mg Q8H PRN Administration MILD PAIN (1-3/10) Alprazolam 0.25 mg 08/05/17 15:12 08/11/17 16:12 Xanax PO 0.25 mg Q6H PRN Administration ANXIETY Amitriptyline HCl 25 mg 08/05/17 22:00 08/10/17 20:29 Elavil PO 25 mg QHS PUJA Administration Bisacodyl 10 mg 08/05/17 14:54 Dulcolax PO DAILY PRN Constipation Calcium Carbonate 500 mg 08/08/17 18:34 08/10/17 20:33 Tums PO 500 mg Q4H PRN PRN Administration stomach Estradiol 0.5 mg 08/06/17 06:00 08/11/17 06:36 Estradiol PO 0.5 mg DAILY [facility] Administration Hydrochlorothiazide 12.5 mg 08/09/17 17:51 08/11/17 06:36 Hydrochlorothiazide PO 12.5 mg DAILY [facility] Administration Lisinopril 10 mg 08/09/17 17:51 08/11/17 06:36 Zestril PO 10 mg DAILY [facility] Administration Nutritional Formula 1 packet 08/05/17 17:00 08/11/17 17:10 Tha - Beaver Flavor [facility] Oxy[facility] HCl 10 mg 08/05/17 15:26 08/11/17 14:26 Oxyir PO 10 mg Q4H PRN PRN Administration SEVERE PAIN (6-10/10) Polyethylene Glycol 17 gm 08/06/17 06:00 08/11/17 06:36 Miralax PO Not Given DAILY [facility] Senna/Docusate Sodium 2 tablet 08/05/17 18:00 08/11/17 17:10 Senokot-S, Mague-Colace PO Not Given BID [facility] Tramadol HCl 50 mg 08/05/17 15:26 08/10/17 15:37 Ultram PO 50 mg Q6H PRN PRN Administration MODERATE PAIN (4-5/10) Tuberculin PPD 5 tu 08/13/17 10:00 Tubersol, Aplisol, Ppd ID 08/13/17 10:01 X1 ONE Warfarin Sodium 3 mg 08/08/17 17:00 08/11/17 16:16 Coumadin (Pbkc) PO 3 mg DAILY@1700 [facility] Administration Problem List (Last Reviewed 06/29/17 @ 13:24 by Shannon Mcneil) Fall (Acute) Cervical cancer (Chronic) GERD (gastroesophageal reflux disease) (Chronic) Anxiety (Chronic) Menopausal disorder (Chronic) Vital Signs Temp Pulse Resp BP Pulse Ox 98.6 F 66 16 106/61 97 08/11/17 15:28 08/11/17 15:28 08/11/17 15:28 08/11/17 15:28 08/11/17 15:28 Oxygen Delivery Method Room Air Weight: 74.417 kg Body Mass Index (BMI) 28.5 Sodium 137 mmol/L (136-145) 08/06/17 06:39 Potassium 4.2 mmol/L (3.5-5.1) 08/06/17 06:39 Chloride 103 mmol/L (98-107) 08/06/17 06:39 Carbon Dioxide 29.0 mmol/L (21.0-32.0) 08/06/17 06:39 Anion Gap 5 (5-15) 08/06/17 06:39 BUN 20 mg/dL (7-18) H 08/06/17 06:39 Creatinine 0.74 mg/dL (0.55-1.02) 08/06/17 06:39 Est GFR (MDRD) Af Amer 106 mL/min (>60) 08/06/17 06:39 Est GFR (MDRD) Non-Af 88 mL/min (>60) 08/06/17 06:39 BUN/Creatinine Ratio 27.0 RATIO (10-20) H 08/06/17 06:39 Glucose 95 mg/dL (74-106) 08/06/17 06:39 Assessment/Plan: Psychotropic Medications: Unnecessary Medications: Bowel Regimen: - Provider Comments Provider responsibility: Provider responsible to enter orders to implement recommendations Provider Comments to Recommendations by Pharmacy: Agree
--- NOTE | 2017-08-11 15:44 | PHA.CONS_ITS ---
<Jeremiah Ross D - Last Filed: 08/11/17 15:29> Progress Note - Pharmacy Subjective: TCU Admission Objective: Allergies fluoxetine Allergy (Mild, Verified 07/27/17 09:41) Other head ache gabapentin Allergy (Mild, Verified 07/27/17 09:41) Abd cramps/diarrhea venlafaxine Allergy (Mild, Verified 07/27/17 09:41) Pain in joints tramadol Adverse Reaction (Verified 07/27/17 09:41) Nausea Current Medications Generic Name Dose Route Start Last Admin Trade Name Freq PRN Reason Stop Dose Admin Acetaminophen 1,000 mg 08/05/17 15:12 08/09/17 15:08 Tylenol PO 1,000 mg Q8H PRN Administration MILD PAIN (1-3/10) Alprazolam 0.25 mg 08/05/17 15:12 08/07/17 15:27 Xanax PO 0.25 mg Q6H PRN Administration ANXIETY Amitriptyline HCl 25 mg 08/05/17 22:00 08/10/17 20:29 Elavil PO 25 mg QHS PUJA Administration Bisacodyl 10 mg 08/05/17 14:54 Dulcolax PO DAILY PRN Constipation Calcium Carbonate 500 mg 08/08/17 18:34 08/10/17 20:33 Tums PO 500 mg Q4H PRN PRN Administration stomach Estradiol 0.5 mg 08/06/17 06:00 08/11/17 06:36 Estradiol PO 0.5 mg DAILY PUJA Administration Hydrochlorothiazide 12.5 mg 08/09/17 17:51 08/11/17 06:36 Hydrochlorothiazide PO 12.5 mg DAILY PUJA Administration Lisinopril 10 mg 08/09/17 17:51 08/11/17 06:36 Zestril PO 10 mg DAILY PUJA Administration Nutritional Formula 1 packet 08/05/17 17:00 08/11/17 08:23 Tha - [place] Flavor PO Not Given BIDCM [facility] Oxycodone HCl 10 mg 08/05/17 15:26 08/11/17 14:26 Oxyir PO 10 mg Q4H PRN PRN Administration SEVERE PAIN (6-10/10) Polyethylene Glycol 17 gm 08/06/17 06:00 08/11/17 06:36 Miralax PO Not Given DAILY [facility] Senna/Docusate Sodium 2 tablet 08/05/17 18:00 08/11/17 06:37 Senokot-S, Mague-Colace PO Not Given BID [facility] Tramadol HCl 50 mg 08/05/17 15:26 08/10/17 15:37 Ultram PO 50 mg Q6H PRN PRN Administration MODERATE PAIN (4-5/10) Tuberculin PPD 5 tu 08/13/17 10:00 Tubersol, Aplisol, Ppd ID 08/13/17 10:01 X1 ONE Warfarin Sodium 3 mg 08/08/17 17:00 08/10/17 17:43 Coumadin (Pbkc) PO 3 mg DAILY@1700 [facility] Administration Problem List (Last Reviewed 06/29/17 @ 13:24 by Shannon Mcneil) Fall (Acute) Cervical cancer (Chronic) GERD (gastroesophageal reflux disease) (Chronic) Anxiety (Chronic) Menopausal disorder (Chronic) Vital Signs Temp Pulse Resp BP Pulse Ox 98.2 F 68 18 95/60 96 08/10/17 15:34 08/11/17 10:00 08/11/17 10:00 08/10/17 15:34 08/11/17 10:00 Oxygen Delivery Method Room Air Weight: 74.417 kg Body Mass Index (BMI) 28.5 Sodium 137 mmol/L (136-145) 08/06/17 06:39 Potassium 4.2 mmol/L (3.5-5.1) 08/06/17 06:39 Chloride 103 mmol/L (98-107) 08/06/17 06:39 Carbon Dioxide 29.0 mmol/L (21.0-32.0) 08/06/17 06:39 Anion Gap 5 (5-15) 08/06/17 06:39 BUN 20 mg/dL (7-18) H 08/06/17 06:39 Creatinine 0.74 mg/dL (0.55-1.02) 08/06/17 06:39 Est GFR (MDRD) Af Amer 106 mL/min (>60) 08/06/17 06:39 Est GFR (MDRD) Non-Af 88 mL/min (>60) 08/06/17 06:39 BUN/Creatinine Ratio 27.0 RATIO (10-20) H 08/06/17 06:39 Glucose 95 mg/dL (74-106) 08/06/17 06:39 Assessment/Plan: 1) Pain APAP for mild pain, tramadol for moderate pain, oxycodone for severe pain. Continue to monitor prn medication use, daily pain scores. 2) HTN Lisinopril, HCTZ. Continue to monitor BP/HR, renal function, electrolytes. 3) Hormone Replacement Estradiol daily. Continue to monitor clinically. 4) Indigestion Tums prn. Continue to monitor prn medication use, s/s GI distress. 5) Mechanical Valve Warfarin daily. Continue to monitor PT/INR, s/s bleeding/clot. 6) Nutrition Tha twice daily. Continue to monitor clinically. Psychotropic Medications: 7) Anxiety/Depression/Insomnia Amitriptyline at HS, alprazolam prn. Continue to monitor prn medication use, s/s anxiety. Unnecessary Medications: None Bowel Regimen: 8) Senna/s, PEG, prn bisacodyl. Continue to monitor prn medication use, for constipation/diarrhea. Date of Note:: 08/11/17 - Provider Comments Provider responsibility: Provider responsible to enter orders to implement recommendations <Marcel Moya Chi - Last Filed: 08/11/17 17:39> Progress Note - Pharmacy Subjective: [] Objective: Allergies fluoxetine Allergy (Mild, Verified 07/27/17 09:41) Other head ache gabapentin Allergy (Mild, Verified 07/27/17 09:41) Abd cramps/diarrhea venlafaxine Allergy (Mild, Verified 07/27/17 09:41) Pain in joints tramadol Adverse Reaction (Verified 07/27/17 09:41) Nausea Current Medications Generic Name Dose Route Start Last Admin Trade Name Freq PRN Reason Stop Dose Admin Acetaminophen 1,000 mg 08/05/17 15:12 08/09/17 15:08 Tylenol PO 1,000 mg Q8H PRN Administration MILD PAIN (1-3/10) Alprazolam 0.25 mg 08/05/17 15:12 08/11/17 16:12 Xanax PO 0.25 mg Q6H PRN Administration ANXIETY Amitriptyline HCl 25 mg 08/05/17 22:00 08/10/17 20:29 Elavil PO 25 mg QHS PUJA Administration Bisacodyl 10 mg 08/05/17 14:54 Dulcolax PO DAILY PRN Constipation Calcium Carbonate 500 mg 08/08/17 18:34 08/10/17 20:33 Tums PO 500 mg Q4H PRN PRN Administration stomach Estradiol 0.5 mg 08/06/17 06:00 08/11/17 06:36 Estradiol PO 0.5 mg DAILY [facility] Administration Hydrochlorothiazide 12.5 mg 08/09/17 17:51 08/11/17 06:36 Hydrochlorothiazide PO 12.5 mg DAILY [facility] Administration Lisinopril 10 mg 08/09/17 17:51 08/11/17 06:36 Zestril PO 10 mg DAILY [facility] Administration Nutritional Formula 1 packet 08/05/17 17:00 08/11/17 17:10 [facility]a - [place] Fl[facility] Oxycodone HCl 10 mg 08/05/17 15:26 08/11/17 14:26 Oxyir PO 10 mg Q4H PRN PRN Administration SEVERE PAIN (6-10/10) Polyethylene Glycol 17 gm 08/06/17 06:00 08/11/17 06:36 Miralax PO Not Given DAILY [facility] Senna/Docusate Sodium 2 tablet 08/05/17 18:00 08/11/17 17:10 Senokot-S, Mague-Colace PO Not Given BID [facility] Tramadol HCl 50 mg 08/05/17 15:26 08/10/17 15:37 Ultram PO 50 mg Q6H PRN PRN Administration MODERATE PAIN (4-5/10) Tuberculin PPD 5 tu 08/13/17 10:00 Tubersol, Aplisol, Ppd ID 08/13/17 10:01 X1 ONE Warfarin Sodium 3 mg 08/08/17 17:00 08/11/17 16:16 Coumadin (Pbkc) PO 3 mg DAILY@1700 [facility] Administration Problem List (Last Reviewed 06/29/17 @ 13:24 by Shannon Mcneil) Fall (Acute) Cervical cancer (Chronic) GERD (gastroesophageal reflux disease) (Chronic) Anxiety (Chronic) Menopausal disorder (Chronic) Vital Signs Temp Pulse Resp BP Pulse Ox 98.6 F 66 16 106/61 97 08/11/17 15:28 08/11/17 15:28 08/11/17 15:28 08/11/17 15:28 08/11/17 15:28 Oxygen Delivery Method Room Air Weight: 74.417 kg Body Mass Index (BMI) 28.5 Sodium 137 mmol/L (136-145) 08/06/17 06:39 Potassium 4.2 mmol/L (3.5-5.1) 08/06/17 06:39 Chloride 103 mmol/L (98-107) 08/06/17 06:39 Carbon Dioxide 29.0 mmol/L (21.0-32.0) 08/06/17 06:39 Anion Gap 5 (5-15) 08/06/17 06:39 BUN 20 mg/dL (7-18) H 08/06/17 06:39 Creatinine 0.74 mg/dL (0.55-1.02) 08/06/17 06:39 Est GFR (MDRD) Af Amer 106 mL/min (>60) 08/06/17 06:39 Est GFR (MDRD) Non-Af 88 mL/min (>60) 08/06/17 06:39 BUN/Creatinine Ratio 27.0 RATIO (10-20) H 08/06/17 06:39 Glucose 95 mg/dL (74-106) 08/06/17 06:39 Assessment/Plan: Psychotropic Medications: Unnecessary Medications: Bowel Regimen: - Provider Comments Provider responsibility: Provider responsible to enter orders to implement recommendations Provider Comments to Recommendations by Pharmacy: Agree
[2017-08-11] MEDS: ALPRAZolam 0.25 MG Tablet PO (16:12)
[2017-08-11] MEDS: Amitriptyline 25 MG Tablet PO (20:49)
[2017-08-12] MEDS: HYDROCHLOROTHIAZIDE 12.5 MG CAPSULE PO (05:04)
[2017-08-12] MEDS: Lisinopril 10 MG Tablet PO (05:04)
[2017-08-12] MEDS: Estradiol 0.5 MG Tablet PO (05:05)
[2017-08-12 05:06] VITALS: O2SAT 96
[2017-08-12] MEDS: oxyCODONE 5 MG Tablet 10 MG PO ×2 (09:58→19:17)
--- NOTE | 2017-08-12 13:39 | CASEMGMT ---
Brief interview for mental status (BIMS) and resident mood interview (PHQ-9) completed on this day. BIMS score 15. PHQ-9 score 03/12
[2017-08-12 15:28] VITALS: BP 99/63; PULSE 75; RESP 18; TEMP 36.7; O2SAT 100
[2017-08-12] MEDS: Amitriptyline 25 MG Tablet PO (20:20)
[2017-08-13 05:06] VITALS: BP 86/54; PULSE 69
[2017-08-13] MEDS: Estradiol 0.5 MG Tablet PO (05:07)
[2017-08-13 08:17] LABS: Absolute Lymphocyte Count 1.91 X10^3/ul (0.83-4.51); Absolute Neutrophil Count 3.5 X10^3/uL (2.0-7.7); Basophil# 0.03 X10^3/uL; Basophil% 0.5 % (0-1); Eosinophils% 3.2 % (0-5); Hematocrit 31.7 % (37-47); Hemoglobin 10.8 g/dl (12.0-15.0); Lymphocyte # 1.91 X10^3/ul (4.0); Mean Corp Hgb Conc 34.1 g/gl (32-36); Mean Corpuscular Hgb 30.1 pg (27.0-32.0); Mean Corpuscular Volume 88.3 fL (81-99); Mean Platelet Vol. 9.1 fl (6.2-12.0); Monocyte# 0.47 X10^3/uL; Monocyte% 7.6 % (0-10); Neutrophil # 3.52 X10^3/uL (2.7-7.7); Neutrophil % 57.1 % (47-70); Platelet Count 373 K/mm3 (150-450); RBC Distribution Width CV 13.4 % (11.6-14.6); RBC Distribution Width SD 42.1 fl (35.1-43.9); Red Blood Count 3.59 M/mm3 (4.2-5.4); White Blood Count 6.2 K/mm3 (4.4-11.0)
[2017-08-13 08:18] LABS: POSITIVE COUNT NO; POSITIVE DIFFERENTIAL NO; POSITIVE MORPHOLOGY NO
[2017-08-13 08:29] LABS: Anion Gap 8 (5-15); BUN 18 mg/dL (7-18); BUN/Creat Ratio 24.1 RATIO (10-20); Chloride 104 mmol/L (98-107); Creatinine, Serum 0.75 mg/dL (0.55-1.02); EST Glomerular Filtration Rate 87 mL/min (>60); Est Glom Filt Rate - Afr Amer 105 mL/min (>60); Estimated Creatinine Clearance 75.77 ml/min; Glucose 84 mg/dL (74-106); Potassium 3.9 mmol/L (3.5-5.1); Sodium Level 140 mmol/L (136-145)
[2017-08-13 09:17] VITALS: BP 109/52; PULSE 62; RESP 18; TEMP 36.4; O2SAT 100
[2017-08-13 10:00] VITALS: PULSE 75; RESP 16; O2SAT 99
--- NOTE | 2017-08-15 14:54 | CASEMGMT ---
Insurance Notified insurance of resident discharge on 08/13/17 to home with spouse. Auth#[id number] Cassie CUMMINGS, RISK ADJUSTMENT SPECIALIST
--- NOTE | 2017-08-18 10:32 | MDS.RN ---
Information for the mds was obtained from review of the clinical record, interview of resident, staff, and direct observation of resident's care.
== END 2017-08-13 10:40 | disposition home health service (06) | DRG 949 ==
PROVIDERS: Admitting Provider Family Medicine Geriatric Medicine; Family Provider Family Medicine; PCP Family Medicine; Visit Provider Family Medicine Geriatric Medicine
DX: Z48.817 Encounter for surgical aftercare following surgery on the skin and subcutaneous tissue (principal); Q23.1 Congenital insufficiency of aortic valve; S70.12XD Contusion of left thigh, subsequent encounter; W10.9XXD Fall (on) (from) unspecified stairs and steps, subsequent encounter; K21.9 Gastro-esophageal reflux disease without esophagitis; Z95.2 Presence of prosthetic heart valve; E78.5 Hyperlipidemia, unspecified; Z85.41 Personal history of malignant neoplasm of cervix uteri; I10 Essential (primary) hypertension; F41.9 Anxiety disorder, unspecified; N95.2 Postmenopausal atrophic vaginitis
CPT/HCPCS: 36415; 80048; 85025; 85610; 97110; 97116; 97162; 97166; 97530; 97535; 97802

== ENCOUNTER 2017-09-05 08:00 | Outpatient (RCR) | payer BC, SELFPAY ==
[2017-08-22 10:35] VITALS: BP 125/83; PULSE 68; RESP 16; TEMP 36.6; BMI 29.2
--- NOTE | 2017-08-22 23:59 | PCM.WC.PN ---
Type of Wound Date of Service: 08/22/17 Chief Complaint: Open surgical hematoma wound left anterolateral thigh. History of Wound: Surgery 07/28/17 - Surgical preparation left anterolateral thigh with incision and drainage and evacuation and excisional debridement traumatic intramuscular hematoma (vastus lateralis muscle), (140 cm2). Wound care - VAC. Operative culture - negative. She was treated perioperatively with Ancef. Encourage nutritional supplementation with protein to help the healing process. Today she denies fever. Her appetite is good. She has been walking on her left leg and doing ok. Progress of Wound: Improved. - Physical Exam Vital Signs Temp Pulse Resp BP 97.8 F 68 16 125/83 H 08/22/17 10:35 08/22/17 10:35 08/22/17 10:35 08/22/17 10:35 Wound Measurements and Assessment - Nurse 1 - General Ulcer Measurement Start: 08/22/17 10:34 Freq: Status: Active Protocol: Activity Type Activity Date Activity User E-Sign Co-Sign Detail Recorded Client Recorded Date Recorded By Document 08/22/17 10:35 DL [id number] 08/22/17 10:56 DL 08/22/17 10:35 Wound Center Nurse 1 [Ulcer Assessment] #1 L Lat Thigh -Current Size (cm) - Length 15 -Current Size (cm) - Width 4.8 -Current Size (cm) - Depth 0.2 -Total Square Cm 72.0 -Photo Taken Yes -Classification - Thickness Full Thickness without Exposed Support Structure -Exudate Amt Medium (34-66%) -Exudate Type Sanguineous -Wound Margin Distinct, Outline Attached -Granulation Amt Large (67-100%) -Granulation Quality Red -Necrosis Amt Small (1-33%) -Necrotic Tissue Type Adherent Slough -Structure Exposed N/A -Texture (Mague-wound Skin Appearance) No Abnormality -Moisture (Mague-wound Skin Appearance No Abnormality ) -Color (Mague-wound Skin Appearance) No Abnormality -Temperature (Mague-wound Skin No Abnormality Appearance) (Pt Warm) -Tenderness on Palpation (Mague-wound Yes Skin Appearance) -Ulcer Cleansing Wound Cleanser -Foul Odor after Cleansing No -Anesthetic Used 4% Lidocaine Solution WC - Nurse 2 - General Ulcer CM Notes Start: 08/22/17 10:34 Freq: Status: Active Protocol: Activity Type Activity Date Activity User E-Sign Co-Sign Detail Recorded Client Recorded Date Recorded By Document 08/22/17 11:27 [id number] 08/22/17 11:30 08/22/17 11:27 Wound Center Nurse 2 [Procedure/Treatment] -Time 11:27 -Correct Patient Yes -Correct Side, Site, Position Yes -Correct Procedure Yes -Procedure Performed Yes -Type of Procedure Debridement -Clinical Debridement Subcutaneous -Post Debridement Size (cm) - Length 15.0 -Post Debridement Size (cm) - Width 4.9 -Post Debridement Size (cm) - Depth 0.2 -Total Square Cm 73.50 -Wound/Ulcer Outcome Not Healed -Ulcer Cleansing Rinsed/ Irrigated with Saline -Foul Odor after Cleansing No -Bioengineered Tissue No -Bleeding Controlled with Pressure -Treatment Response Procedure Tolerated Well [See Physician Procedure note for Specifics] Pain Scale: 0-10 Numeric [Pain] -Is Patient Pain Free? Yes Debridement Note Post-Debridement Measurements/Treatment WC - Nurse 2 - General Ulcer CM Notes Start: 08/22/17 10:34 Freq: Status: Active Protocol: Activity Type Activity Date Activity User E-Sign Co-Sign Detail Recorded Client Recorded Date Recorded By Document 08/22/17 11:27 [id number] 08/22/17 11:30 08/22/17 11:27 Wound Center Nurse 2 #1 L Lat Thigh -Time 11:27 -Correct Patient Yes -Correct Side, Site, Position Yes -Correct Procedure Yes -Procedure Performed Yes -Type of Procedure Debridement -Clinical Debridement Subcutaneous -Post Debridement Size (cm) - Length 15.0 -Post Debridement Size (cm) - Width 4.9 -Post Debridement Size (cm) - Depth 0.2 -Total Square Cm 73.50 -Wound/Ulcer Outcome Not Healed -Ulcer Cleansing Rinsed/ Irrigated with Saline -Foul Odor after Cleansing No -Bioengineered Tissue No -Bleeding Controlled with Pressure -Treatment Response Procedure Tolerated Well Pain Scale: 0-10 Numeric Is Patient Pain Free? Yes Wound debrided: #1 Left anterolateral thigh. Laterality: Left Wound Grade/Stage: 3. Type of Debridement: Excisional debridement Anesthesia Used: 4% Lidocaine Solution Depth: Down to and including healthy tissue, in the subcutaneous layer, to muscle - muscle not debrided. Percentage of wound debrided: 100 Instrument Used: 5mm curette Tissue Removed: subcutaneous tissue. Severity: Fat Layer Exposed - muscle exposed but not debrided. Amount of bleeding with debridement: Mild Bleeding Controlled with: Pressure Patient tolerated procedure well Assessment/Plan Assessment: 1. Traumatic intramuscular hematoma left anterolateral thigh (vastus lateralis muscle) (140 cm2). 2. Open surgical hematoma wound left anterolateral thigh with muscle involvement (vastus lateralis muscle). 3. [facility] use of Coumadin for mechanical heart valve. 4. s/p surgical preparation left anterolateral thigh with incision and drainage and evacuation and excisional debridement traumatic intramuscular hematoma (vastus lateralis muscle), (140 cm2). Plan: The wound is improving and is superficial. Will place the VAC on hold with a holiday. Will begin Silver dressing changes daily followed by compression SKYLA wrap. Encourage nutritional supplementation with protein to help the healing process. Discussed possible delayed closure with a skin graft. She will think about that, but for now wants to continue with wound care to see if it will heal.
[2017-09-05 08:22] VITALS: BP 134/94; PULSE 79; RESP 16; TEMP 35.9; BMI 29.2
--- NOTE | 2017-09-05 17:28 | PCM.WC.PN ---
Type of Wound Date of Service: 09/05/17 Chief Complaint: Open surgical hematoma wound left anterolateral thigh. History of Wound: Surgery 07/28/17 - Surgical preparation left anterolateral thigh with incision and drainage and evacuation and excisional debridement traumatic intramuscular hematoma (vastus lateralis muscle), (140 cm2). Wound care - Silver dressings. Operative culture - negative. She was treated perioperatively with Ancef. Encourage nutritional supplementation with protein to help the healing process. Today she denies fever. Her appetite is good. She has been walking on her left leg and doing ok. Progress of Wound: Improved. - Physical Exam Vital Signs Temp Pulse Resp BP 96.6 F L 79 16 134/94 H 09/05/17 08:22 09/05/17 08:22 09/05/17 08:22 09/05/17 08:22 Wound Measurements and Assessment WC - Nurse 1 - General Ulcer Measurement Start: 08/22/17 10:34 Freq: Status: Active Protocol: Activity Type Activity Date Activity User E-Sign Co-Sign Detail Recorded Client Recorded Date Recorded By Document 09/05/17 08:22 [id number] 09/05/17 08:24 09/05/17 08:22 Wound Center Nurse 1 [Ulcer Assessment] #1 L Lat Thigh -Combined with other wound No -Current Size (cm) - Length 13.1 -Current Size (cm) - Width 2.6 -Current Size (cm) - Depth 0.1 -Total Square Cm 34.06 -Photo Taken No -Epithelialization None Present -Tunneling No -Undermining/Tunneling No -Exudate Amt Small (1-33%) -Exudate Type Serosanguineous -Wound Margin Distinct, Outline Attached -Granulation Amt Large (67-100%) -Granulation Quality Zinc Red -Slough/Fibrin No -Necrosis Amt None Present (0 %) -Necrotic Tissue Type Adherent Slough -Structure Exposed None/Limited to Skin Breakdown -Texture (Mague-wound Skin Appearance) No Abnormality Assessed -Moisture (Mague-wound Skin Appearance No Abnormality ) Assessed -Color (Mague-wound Skin Appearance) No Abnormality Assessed -Temperature (Mague-wound Skin No Abnormality Appearance) (Pt Warm) -Tenderness on Palpation (Mague-wound No Skin Appearance) -Ulcer Cleansing Rinsed/ Irrigated with Saline -Foul Odor after Cleansing No -Anesthetic Used 5% Lidocaine Gel [Edema Assessment] -Lower Limb Edema Present NA - Nurse 2 - General Ulcer CM Notes Start: 08/22/17 10:34 Freq: Status: Active Protocol: Activity Type Activity Date Activity User E-Sign Co-Sign Detail Recorded Client Recorded Date Recorded By Document 09/05/17 09:09 [id number] 09/05/17 09:11 09/05/17 09:09 Wound Center Nurse 2 [Procedure/Treatment] #1 L Lat Thigh -Time 09:09 -Correct Patient Yes -Correct Side, Site, Position Yes -Correct Procedure Yes -Procedure Performed Yes -Type of Procedure Debridement -Clinical Debridement Subcutaneous -Post Debridement Size (cm) - Length 13.2 -Post Debridement Size (cm) - Width 2.6 -Post Debridement Size (cm) - Depth 0.1 -Total Square Cm 34.32 -Wound/Ulcer Outcome Not Healed -Ulcer Cleansing Rinsed/ Irrigated with Saline -Foul Odor after Cleansing No -Bioengineered Tissue No -Bleeding Controlled with Pressure Silver Nitrate -Treatment Response Procedure Tolerated Well [See Physician Procedure note for Specifics] Pain Scale: 0-10 Numeric [Pain] -Is Patient Pain Free? Yes Debridement Note Post-Debridement Measurements/Treatment - Nurse 2 - General Ulcer CM Notes Start: 08/22/17 10:34 Freq: Status: Active Protocol: Activity Type Activity Date Activity User E-Sign Co-Sign Detail Recorded Client Recorded Date Recorded By Document 08/22/17 11:27 [id number] 08/22/17 11:30 Document 09/05/17 09:09 [id number] 09/05/17 09:11 08/22/17 09/05/17 11:27 09:09 Wound Center Nurse 2 #1 L Lat Thigh -Time 11:27 09:09 -Correct Patient Yes Yes -Correct Side, Site, Position Yes Yes -Correct Procedure Yes Yes -Procedure Performed Yes Yes -Type of Procedure Debridement Debridement -Clinical Debridement Subcutaneous Subcutaneous -Post Debridement Size (cm) - Length 15.0 13.2 -Post Debridement Size (cm) - Width 4.9 2.6 -Post Debridement Size (cm) - Depth 0.2 0.1 -Total Square Cm 73.50 34.32 -Wound/Ulcer Outcome Not Healed Not Healed -Ulcer Cleansing Rinsed/ Rinsed/ Irrigated with Irrigated with Saline Saline -Foul Odor after Cleansing No No -Bioengineered Tissue No No -Bleeding Controlled with Pressure Pressure Silver Nitrate -Treatment Response Procedure Procedure Tolerated Well Tolerated Well Pain Scale: 0-10 Numeric Is Patient Pain Free? Yes Yes Wound debrided: #1 Left anterolateral thigh. Laterality: Left Wound Grade/Stage: 3. Type of Debridement: Excisional debridement Anesthesia Used: 4% Lidocaine Solution Depth: Down to and including healthy tissue, in the subcutaneous layer, to muscle - no muscle was included in with the debridement. Percentage of wound debrided: 100 Instrument Used: 5mm curette Tissue Removed: subcutaneous tissue. Severity: Fat Layer Exposed Amount of bleeding with debridement: Mild Bleeding Controlled with: Pressure Patient tolerated procedure well Assessment/Plan Assessment: 1. Traumatic intramuscular hematoma left anterolateral thigh (vastus lateralis muscle) (140 cm2). 2. Open surgical hematoma wound left anterolateral thigh with muscle involvement (vastus lateralis muscle). 3. [facility] use of Coumadin for mechanical heart valve. 4. s/p surgical preparation left anterolateral thigh with incision and drainage and evacuation and excisional debridement traumatic intramuscular hematoma (vastus lateralis muscle), (140 cm2). Plan: Continue Silver dressing changes daily followed by compression SKYLA wrap. Encourage nutritional supplementation with protein to help the healing process. Discussed possible delayed closure with a skin graft. She expresses interest in that surgery. Will schedule it for next week. She checked with her PCP who will start her on Lovenox to bridge her while the Coumadin is stopped. Followup 2 weeks.
--- NOTE | 2017-09-06 17:09 | PN.PCM_ITS ---
Type of Wound Date of Service: 09/05/17 Chief Complaint: Open surgical hematoma wound left anterolateral thigh. History of Wound: Surgery 07/28/17 - Surgical preparation left anterolateral thigh with incision and drainage and evacuation and excisional debridement traumatic intramuscular hematoma (vastus lateralis muscle), (140 cm2). Wound care - Silver dressings. Operative culture - negative. She was treated perioperatively with Ancef. Encourage nutritional supplementation with protein to help the healing process. Today she denies fever. Her appetite is good. She has been walking on her left leg and doing ok. Progress of Wound: Improved. - Physical Exam Vital Signs Temp Pulse Resp BP 96.6 F L 79 16 134/94 H 09/05/17 08:22 09/05/17 08:22 09/05/17 08:22 09/05/17 08:22 Wound Measurements and Assessment WC - Nurse 1 - General Ulcer Measurement Start: 08/22/17 10:34 Freq: Status: Active Protocol: Activity Type Activity Date Activity User E-Sign Co-Sign Detail Recorded Client Recorded Date Recorded By Document 09/05/17 08:22 [id number] 09/05/17 08:24 09/05/17 08:22 Wound Center Nurse 1 [Ulcer Assessment] #1 L Lat Thigh -Combined with other wound No -Current Size (cm) - Length 13.1 -Current Size (cm) - Width 2.6 -Current Size (cm) - Depth 0.1 -Total Square Cm 34.06 -Photo Taken No -Epithelialization None Present -Tunneling No -Undermining/Tunneling No -Exudate Amt Small (1-33%) -Exudate Type Serosanguineous -Wound Margin Distinct, Outline Attached -Granulation Amt Large (67-100%) -Granulation Quality Steward Red -Slough/Fibrin No -Necrosis Amt None Present (0 %) -Necrotic Tissue Type Adherent Slough -Structure Exposed None/Limited to Skin Breakdown -Texture (Mague-wound Skin Appearance) No Abnormality Assessed -Moisture (Mague-wound Skin Appearance No Abnormality ) Assessed -Color (Mague-wound Skin Appearance) No Abnormality Assessed -Temperature (Mague-wound Skin No Abnormality Appearance) (Pt Warm) -Tenderness on Palpation (Mague-wound No Skin Appearance) -Ulcer Cleansing Rinsed/ Irrigated with Saline -Foul Odor after Cleansing No -Anesthetic Used 5% Lidocaine Gel [Edema Assessment] -Lower Limb Edema Present NA - Nurse 2 - General Ulcer CM Notes Start: 08/22/17 10:34 Freq: Status: Active Protocol: Activity Type Activity Date Activity User E-Sign Co-Sign Detail Recorded Client Recorded Date Recorded By Document 09/05/17 09:09 [id number] 09/05/17 09:11 09/05/17 09:09 Wound Center Nurse 2 [Procedure/Treatment] #1 L Lat Thigh -Time 09:09 -Correct Patient Yes -Correct Side, Site, Position Yes -Correct Procedure Yes -Procedure Performed Yes -Type of Procedure Debridement -Clinical Debridement Subcutaneous -Post Debridement Size (cm) - Length 13.2 -Post Debridement Size (cm) - Width 2.6 -Post Debridement Size (cm) - Depth 0.1 -Total Square Cm 34.32 -Wound/Ulcer Outcome Not Healed -Ulcer Cleansing Rinsed/ Irrigated with Saline -Foul Odor after Cleansing No -Bioengineered Tissue No -Bleeding Controlled with Pressure Silver Nitrate -Treatment Response Procedure Tolerated Well [See Physician Procedure note for Specifics] Pain Scale: 0-10 Numeric [Pain] -Is Patient Pain Free? Yes Debridement Note Post-Debridement Measurements/Treatment - Nurse 2 - General Ulcer CM Notes Start: 08/22/17 10:34 Freq: Status: Active Protocol: Activity Type Activity Date Activity User E-Sign Co-Sign Detail Recorded Client Recorded Date Recorded By Document 08/22/17 11:27 [id number] 08/22/17 11:30 Document 09/05/17 09:09 [id number] 09/05/17 09:11 08/22/17 09/05/17 11:27 09:09 Wound Center Nurse 2 #1 L Lat Thigh -Time 11:27 09:09 -Correct Patient Yes Yes -Correct Side, Site, Position Yes Yes -Correct Procedure Yes Yes -Procedure Performed Yes Yes -Type of Procedure Debridement Debridement -Clinical Debridement Subcutaneous Subcutaneous -Post Debridement Size (cm) - Length 15.0 13.2 -Post Debridement Size (cm) - Width 4.9 2.6 -Post Debridement Size (cm) - Depth 0.2 0.1 -Total Square Cm 73.50 34.32 -Wound/Ulcer Outcome Not Healed Not Healed -Ulcer Cleansing Rinsed/ Rinsed/ Irrigated with Irrigated with Saline Saline -Foul Odor after Cleansing No No -Bioengineered Tissue No No -Bleeding Controlled with Pressure Pressure Silver Nitrate -Treatment Response Procedure Procedure Tolerated Well Tolerated Well Pain Scale: 0-10 Numeric Is Patient Pain Free? Yes Yes Wound debrided: #1 Left anterolateral thigh. Laterality: Left Wound Grade/Stage: 3. Type of Debridement: Excisional debridement Anesthesia Used: 4% Lidocaine Solution Depth: Down to and including healthy tissue, in the subcutaneous layer, to muscle - no muscle was included in with the debridement. Percentage of wound debrided: 100 Instrument Used: 5mm curette Tissue Removed: subcutaneous tissue. Severity: Fat Layer Exposed Amount of bleeding with debridement: Mild Bleeding Controlled with: Pressure Patient tolerated procedure well Assessment/Plan Assessment: 1. Traumatic intramuscular hematoma left anterolateral thigh ( vastus lateralis muscle) (140 cm2). 2. Open surgical hematoma wound left anterolateral thigh with muscle involvement (vastus lateralis muscle). 3. halfway use of Coumadin for mechanical heart valve. 4. s/p surgical preparation left anterolateral thigh with incision and drainage and evacuation and excisional debridement traumatic intramuscular hematoma (vastus lateralis muscle), (140 cm2). Plan: Continue Silver dressing changes daily followed by compression SKYLA wrap. Encourage nutritional supplementation with protein to help the healing process. Discussed possible delayed closure with a skin graft. She expresses interest in that surgery. Will schedule it for next week. She checked with her PCP who will start her on Lovenox to bridge her while the Coumadin is stopped. Followup 2 weeks.
== END 2017-09-13 23:59 ==
LOC: WC 08:00
PROVIDERS: Family Provider Family Medicine; PCP Family Medicine; Visit Provider Surgery
DX: S70.12XA Contusion of left thigh, initial encounter (principal); X58.XXXA Exposure to other specified factors, initial encounter; Z95.2 Presence of prosthetic heart valve; Z79.01 Long term (current) use of anticoagulants
CPT/HCPCS: 11042; 11045; 99213; G0463

== ENCOUNTER → 2017-09-06 17:00 | Outpatient (CLI) | payer BC, SELFPAY ==
--- NOTE | 2017-09-06 16:25 | EKG12_ITS ---
Test Reason : PREOP Blood Pressure : / mmHG Vent. Rate : 068 BPM Atrial Rate : 068 BPM P-R Int : 134 ms QRS Dur : 092 ms QT Int : 442 ms P-R-T Axes : 035 037 053 degrees QTc Int : 469 ms Normal sinus rhythm Normal ECG Confirmed by JANAY GUERIN, TANNER ([id number]), image editor EDY SCHULER ([id number]) on 09/08/2017 12:28:40 PM Referred By: Jose L Mccollum Confirmed By:TANNER GUSTAFSON MD
[2017-09-06 17:37] LABS: Partial Thromboplast Time 47.9 Seconds (24.1-36.2)
[2017-09-06 18:01] LABS: Prothrombin Time (Protime)PT. 38.3 SECONDS (11.7-14.9)
[2017-09-06 18:25] LABS: International Normalized Ratio 3.9
[2017-09-06 18:42] LABS: AST(SGOT) 19 U/L (15-37); Alanine Aminotransfer ALT/SGPT 24 U/L (13-56); Albumin, Serum 3.6 g/dL (3.2-5.0); Alkaline Phosphatase 99 U/L (45-117); Bilirubin, Direct 0.07 mg/dL (0.00-0.30); Globulin 3.7 g/dL (2.2-4.2); Protein, Total 7.3 g/dL (6.4-8.2)
== END ==
PROVIDERS: Family Provider Family Medicine; PCP Family Medicine; Visit Provider Surgery
DX: Z01.812 Encounter for preprocedural laboratory examination (principal); Z01.810 Encounter for preprocedural cardiovascular examination
CPT/HCPCS: 36415; 80076; 85610; 85730; 93005

== ENCOUNTER → 2017-09-09 14:08 | Outpatient (CLI) | payer BC, SELFPAY ==
[2017-09-09 14:39] LABS: International Normalized Ratio 1.5; Prothrombin Time (Protime)PT. 18.4 SECONDS (11.7-14.9)
== END ==
PROVIDERS: Family Provider Family Medicine; Visit Provider Family Medicine Geriatric Medicine
DX: I35.9 Nonrheumatic aortic valve disorder, unspecified (principal)
CPT/HCPCS: 36415; 85610

== ENCOUNTER 2017-09-19 09:56 | Outpatient (RCR) | payer BC, SELFPAY ==
[2017-09-14 01:20] VITALS: BP 134/94; PULSE 79; RESP 16; TEMP 35.9
[2017-09-19 11:36] VITALS: BP 125/77; PULSE 69; RESP 18; TEMP 36.6
--- NOTE | 2017-09-19 17:16 | PCM.WC.PN ---
Type of Wound Date of Service: 09/19/17 Chief Complaint: Open surgical hematoma wound left anterolateral thigh. History of Wound: Surgery 07/28/17 - Surgical preparation left anterolateral thigh with incision and drainage and evacuation and excisional debridement traumatic intramuscular hematoma (vastus lateralis muscle), (140 cm2). Wound care - Silver dressings. Operative culture - negative. She was treated perioperatively with Ancef. Encourage nutritional supplementation with protein to help the healing process. Today she denies fever. Her appetite is good. She has been walking on her left leg and doing ok. Progress of Wound: Improved. - Physical Exam Vital Signs Temp Pulse Resp BP 97.9 F 69 18 125/77 H 09/19/17 11:36 09/19/17 11:36 09/19/17 11:36 09/19/17 11:36 Wound Measurements and Assessment - Nurse 1 - General Ulcer Measurement Start: 09/19/17 11:36 Freq: Status: Active Protocol: Activity Type Activity Date Activity User E-Sign Co-Sign Detail Recorded Client Recorded Date Recorded By Document 09/19/17 11:36 DL [id number] 09/19/17 11:41 DL 09/19/17 11:36 Wound Center Nurse 1 [Ulcer Assessment] #1 L Lat Thigh -Current Size (cm) - Length 7.2 -Current Size (cm) - Width 0.6 -Current Size (cm) - Depth 0.1 -Total Square Cm 4.32 -Photo Taken No -Exudate Amt Small (1-33%) -Exudate Type Serosanguineous -Wound Margin Distinct, Outline Attached -Granulation Amt Large (67-100%) -Granulation Quality Red -Necrosis Amt Small (1-33%) -Necrotic Tissue Type Adherent Slough -Structure Exposed N/A -Texture (Mague-wound Skin Appearance) Scarring -Moisture (Mague-wound Skin Appearance No Abnormality ) -Color (Mague-wound Skin Appearance) No Abnormality -Temperature (Mague-wound Skin No Abnormality Appearance) (Pt Warm) -Ulcer Cleansing Rinsed/ Irrigated with Saline -Foul Odor after Cleansing No -Anesthetic Used 4% Lidocaine Solution WC - Nurse 2 - General Ulcer CM Notes Start: 09/19/17 11:36 Freq: Status: Active Protocol: Activity Type Activity Date Activity User E-Sign Co-Sign Detail Recorded Client Recorded Date Recorded By Document 09/19/17 12:15 [id number] 09/19/17 12:16 09/19/17 12:15 Wound Center Nurse 2 [Procedure/Treatment] -Time 12:16 -Correct Patient Yes -Correct Side, Site, Position Yes -Correct Procedure Yes -Procedure Performed Yes -Type of Procedure Debridement -Clinical Debridement Subcutaneous -Post Debridement Size (cm) - Length 7.2 -Post Debridement Size (cm) - Width 0.7 -Post Debridement Size (cm) - Depth 0.1 -Total Square Cm 5.04 -Wound/Ulcer Outcome Not Healed -Ulcer Cleansing Rinsed/ Irrigated with Saline -Foul Odor after Cleansing No -Bioengineered Tissue No -Bleeding Controlled with Pressure -Treatment Response Procedure Tolerated Well [See Physician Procedure note for Specifics] Pain Scale: 0-10 Numeric [Pain] -Is Patient Pain Free? Yes Debridement Note Post-Debridement Measurements/Treatment WC - Nurse 2 - General Ulcer CM Notes Start: 09/19/17 11:36 Freq: Status: Active Protocol: Activity Type Activity Date Activity User E-Sign Co-Sign Detail Recorded Client Recorded Date Recorded By Document 09/19/17 12:15 [id number] 09/19/17 12:16 09/19/17 12:15 Wound Center Nurse 2 #1 L Lat Thigh -Time 12:16 -Correct Patient Yes -Correct Side, Site, Position Yes -Correct Procedure Yes -Procedure Performed Yes -Type of Procedure Debridement -Clinical Debridement Subcutaneous -Post Debridement Size (cm) - Length 7.2 -Post Debridement Size (cm) - Width 0.7 -Post Debridement Size (cm) - Depth 0.1 -Total Square Cm 5.04 -Wound/Ulcer Outcome Not Healed -Ulcer Cleansing Rinsed/ Irrigated with Saline -Foul Odor after Cleansing No -Bioengineered Tissue No -Bleeding Controlled with Pressure -Treatment Response Procedure Tolerated Well Pain Scale: 0-10 Numeric Is Patient Pain Free? Yes Wound debrided: #1 Left anterolateral thigh. Laterality: Left Wound Grade/Stage: 3. Type of Debridement: Excisional debridement Anesthesia Used: 4% Lidocaine Solution Depth: Down to and including healthy tissue, in the subcutaneous layer Percentage of wound debrided: 100 Instrument Used: 5mm curette Tissue Removed: subcutaneous tissue. Severity: Fat Layer Exposed Amount of bleeding with debridement: Mild Bleeding Controlled with: Pressure Patient tolerated procedure well Assessment/Plan Assessment: 1. Traumatic intramuscular hematoma left anterolateral thigh (vastus lateralis muscle) (140 cm2). 2. Open surgical hematoma wound left anterolateral thigh with muscle involvement (vastus lateralis muscle). 3. penitentiary use of Coumadin for mechanical heart valve. 4. s/p surgical preparation left anterolateral thigh with incision and drainage and evacuation and excisional debridement traumatic intramuscular hematoma (vastus lateralis muscle), (140 cm2). Plan: Continue Silver dressing changes daily followed by compression SKYLA wrap. Encourage nutritional supplementation with protein to help the healing process. Discussed possible delayed closure with a skin graft. She expressed interest in that surgery initially. It was scheduled for 09/13/17. She checked with her PCP who started her on Lovenox to bridge her while the Coumadin is stopped. She has stopped those because she has decided that due to the rapid improvement in healing of the wound, she wants to hold off on the graft. She has returned to work last week and is doing ok. Followup 2 weeks.
== END 2017-10-14 09:57 | disposition home or self-care (01) ==
LOC: WC 09:56
PROVIDERS: Family Provider Family Medicine; PCP Family Medicine; Visit Provider Surgery
DX: S70.12XA Contusion of left thigh, initial encounter (principal); X58.XXXA Exposure to other specified factors, initial encounter; Z79.01 Long term (current) use of anticoagulants; Z95.2 Presence of prosthetic heart valve
CPT/HCPCS: 11042

== ENCOUNTER → 2017-09-22 13:45 | Outpatient (CLI) | payer BC, SELFPAY ==
--- NOTE | 2017-09-22 13:48 | ECHOD_ITS ---
Reason For Study: valve replacement eval Procedure This was a 2D Doppler, Color Flow transthoracic echocardiogram. The exam was of fair technical quality due to diminished acoustic windows. The study was technically difficult. Exam performed in department. Left Ventricle Normal LV size. Left ventricular systolic function is normal. The estimated ejection fraction is 65 %. Normal diastology for age. No regional wall motion abnormalities noted. Right Ventricle Normal RV size. Normal systolic function. Atria Normal left atrium. Normal right atrium. No doppler evidence for ASD. Mitral Valve There is no mitral annular calcification. Mild diffuse mitral valve thickening. Trivial mitral valve insufficiency. Tricuspid Valve Normal tricuspid valve. Mild tricuspid valve insufficiency. Right ventricular systolic pressure estimated to be 22 mmHg. Aortic Valve Stable appearing mechanical aortic valve apparatus. Mild transvalvular insufficiency of the aortic valve. Pulmonic Valve Normal pulmonic valve. Trivial pulmonic valve insufficiency. Great Vessels Aortic root repair. Pericardium/Pleural No pericardial effusion. MMode/2D Measurements & Calculations LVIDd: 4.5 cm IVSd: 1.0 cm LA dimension: 4.1 cm LVIDs: 2.0 cm LVPWd: 0.97 cm FS: 55.5 % LAV(MOD-bp): 38.9 ml LA A4 area: 17.5 cm2 RA A4 area: 13.0 cm2 LAV(MOD-bp) Indexed: 22.1 ml/m2 LAV(MOD-sp2): 32.0 ml LAV(MOD-sp4): 45.3 ml Time Measurements MV dec time: 0.24 sec Doppler Measurements & Calculations MV E max peewee: 107.2 cm/sec Lat Peak E' Peewee: 13.7 cm/sec Med Peak E' Peewee: 8.7 cm/sec MV A max peewee: 80.4 cm/sec E/E' lat: 7.8 E/E' med: 12.3 MV E/A: 1.3 MV V2 max: 113.0 cm/sec MV P1/2t max peewee: 113.6 cm/sec Ao V2 max: 272.5 cm/sec MV max P.1 mmHg MV P1/2t: 102.7 msec Ao max P.7 mmHg MV V2 mean: 56.6 cm/sec MV dec slope: 324.0 cm/sec2 Ao V2 mean: 173.7 cm/sec MV mean P.6 mmHg MVA(P1/2t): 2.1 cm2 Ao mean P.9 mmHg MV V2 VTI: 34.6 cm Ao V2 VTI: 51.9 cm LV V1 max: 118.5 cm/sec PA V2 max: 73.1 cm/sec TR max peewee: 217.2 cm/sec LV V1 max P.6 mmHg TR max P.9 mmHg LV V1 mean P.3 mmHg LV V1 mean: 68.8 cm/sec LV V1 VTI: 23.9 cm Interpretation Summary The study was technically difficult. Left ventricular systolic function is normal. The estimated ejection fraction is 65 %. Mild diffuse mitral valve thickening. Trivial mitral valve insufficiency. Mild tricuspid valve insufficiency. Stable appearing mechanical aortic valve apparatus. Mild transvalvular insufficiency of the aortic valve. Trivial pulmonic valve insufficiency. Aortic root repair. Right ventricular systolic pressure estimated to be 22 mmHg. Normal diastology for age. Comment: a) 2D echocardiographic images demonstrate a vague echodensity in the left atrium near the base of the anterior mitral valve leaflet / AV area appearing c/w echocardiographic artifact / reverberation, however, other etiologies of intracardiac echodensities may not necessarily be excluded. b) Consider further evaluation with MARCEL if clinically indicated. Ordering Physician: Andrew Ramirez Referring Physician: Andrew Ramirez Performed By: Rm Morelos RCS
[2017-09-22 15:17] LABS: International Normalized Ratio 4.1
== END ==
PROVIDERS: Family Provider Family Medicine; PCP Family Medicine; Visit Provider Internal Medicine Cardiovascular Disease
DX: I35.1 Nonrheumatic aortic (valve) insufficiency (principal); Z95.4 Presence of other heart-valve replacement
CPT/HCPCS: 36415; 85610; 93306

== ENCOUNTER → 2017-09-29 08:37 | Outpatient (CLI) | payer BC, SELFPAY ==
[2017-09-29 12:35] LABS: International Normalized Ratio 3.9; Prothrombin Time (Protime)PT. 38.3 SECONDS (11.7-14.9)
== END ==
PROVIDERS: Family Provider Family Medicine; PCP Family Medicine; Visit Provider Internal Medicine Cardiovascular Disease
DX: Z79.01 Long term (current) use of anticoagulants (principal); Z95.4 Presence of other heart-valve replacement
CPT/HCPCS: 85610

== ENCOUNTER → 2017-10-06 09:54 | Outpatient (CLI) | payer BC, SELFPAY ==
[2017-10-06 12:08] LABS: International Normalized Ratio 1.7; Prothrombin Time (Protime)PT. 20.1 SECONDS (11.7-14.9)
== END ==
PROVIDERS: Family Provider Family Medicine; PCP Family Medicine; Visit Provider Internal Medicine Cardiovascular Disease
DX: Z95.4 Presence of other heart-valve replacement (principal); Z79.01 Long term (current) use of anticoagulants
CPT/HCPCS: 36415; 85610

== ENCOUNTER → 2017-10-13 08:03 | Outpatient (CLI) | payer BC, SELFPAY ==
[2017-10-13 12:31] LABS: International Normalized Ratio 2.4
== END ==
PROVIDERS: Family Provider Family Medicine; PCP Family Medicine; Visit Provider Internal Medicine Cardiovascular Disease
DX: Z79.01 Long term (current) use of anticoagulants (principal); Z95.4 Presence of other heart-valve replacement
CPT/HCPCS: 36415; 85610

== ENCOUNTER → 2017-10-14 07:44 | Outpatient (CLI) | payer BC, SELFPAY ==
--- NOTE | 2017-10-14 08:07 | HP.PCM_ITS ---
Problem List (1) Abnormal echocardiogram Status: Acute (2) Bicuspid aortic valve Status: Chronic (3) History of aortic valve replacement with metallic valve Status: Chronic Comment: 21mm St. 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 She was at [facility] in July 2017 for concerns of a mechanical fall leading to a left anterolateral thigh hematoma requiring interruption of anticoagulation, subsequent surgical debridement, sepsis and surgical wound VAC , and Transitional Care Unit stay, with eventual return to anticoagulation. She states that she has healed from her mechanical fall and surgical procedure. She does have a healing incision on her left thigh. However, she has been able to return to normal activity both at work as well as with her extracurricular activities. Overall she states she has been feeling good with no concerns of unexplained fever, chills, or night sweats or obvious thromboembolic events. There is been no other concerning chest discomfort or difficulty breathing. There is been no palpitations. There has been no loss of consciousness. She states she has had a history of transient visual disturbances which has been evaluated in the past by multiple physicians with no definitive explanation other than the possibility of a migraine variant- ocular type. As part of her recent evaluation care, due to her temporary interruption of her anticoagulant therapy, she underwent a follow-up transthoracic echocardiogram on 09/22/2017 to reassess her aortic valve apparatus, etc. That study was somewhat technically diminished quality study. Her left ventricle appeared to be normal with an LVEF of 65% with mild diffuse mitral valve thickening with trivial MR, mild TR, and a stable appearing mechanical aortic valve apparatus. There was mild transvalvular aortic valve insufficiency, trivial OK, and an aortic root repair. Her estimated RV systolic pressure was 22 mmHg. Of note she had 2D echocardiographic images demonstrating a vague echodensity in the left atrium near the base of the anterior mitral valve leaflet/aortic valve area appearing compatible with echocardiographic artifact/reverberation however other etiologies of intracardiac echodensities cannot necessarily be excluded. Thus she was recommended for further evaluation with a transesophageal echocardiogram. She has had a previous transesophageal cardiogram performed on 08/31/2016. At that point time her left ventricle was normal with an LVEF 55% with mild left atrial enlargement with no spontaneous contrast in the left atrium and no thrombus in the left atrial appendage, mild diffuse mitral valve thickening with mild MR, mild TR, a stable appearing mechanical aortic valve apparatus with trivial transvalvular AI, and aortic root repair, and a bubble contrast study negative for right to left ventricular atrial shunt. Past Medical History Allergies/Adverse Reactions: Allergies fluoxetine Allergy (Mild, Verified 09/06/17 14:56) Other head ache gabapentin Allergy (Mild, Verified 09/06/17 14:56) Abd cramps/diarrhea venlafaxine Allergy (Mild, Verified 09/06/17 14:56) Pain in joints tramadol Adverse Reaction (Verified 09/06/17 14:56) Nausea Home Medications: Ambulatory Orders Medication Instructions Recorded alprazolam 0.25 mg tablet 0.25 mg PO BID-TID PRN 06/29/17 Estradiol 0.5 mg PO QDAY 07/27/17 Acetaminophen [Tylenol] 1,000 mg PO Q8H PRN tablet 08/10/17 Calcium Carbonate [Tums] 500 mg PO Q4H PRN PRN tablet 08/10/17 Enoxaparin [Lovenox] 70 mg SC Q12@0600,1800 09/06/17 Lisinopril/Hydrochlorothiazide 1 tablet PO DAILY 09/06/17 [Zestoretic 10/12.5 Tablet] warfarin 2 mg tablet 2 mg PO .COMPLEX #45 tab 09/30/17 warfarin 4 mg tablet 4 mg PO .COMPLEX #90 tab 09/30/17 Past Medical History (Chronic Problems): Chronic Problems (Last Reviewed 06/29/17 @ 13:24 by Shannon Mcneil) 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 Objective: Pulse: 77; Blood Pressure: 135/80; RR: 12 General: Awake, Alert, Oriented x 3, Cooperative, No Acute Distress HEENT: Atraumatic, Normocephalic, PERRL, EOMI, Sclera Non Icteric Oral: Moist Mucosa Neck: Supple, Good ROM, No JVD Lungs: Clear to auscultation Cardiovascular: Regular Rhythm, Normal S1, [place]ado Prosthetic S2 Vascular: No Carotid Bruits Abdomen: Bowel Sounds Present, Soft, Non Tender Extremities: No Cyanosis, No Clubbing, No edema Lymphatic: No Lymph Node Enlargement Neurological: No Focal Motor or Sensory Deficit Psych/Mental Status: Appropriate, Normal Affect VTE Information - Inpt Only VTE Present on Admission: No VTE Mechan Device Prophylaxis: None VTE Pharm Prophylaxis ordered?: No Reason prophylaxis not ordered:: Treatment Not Indicated - Patient already on oral systemic anticoagulant therapy with warfarin/Coumadin Rhythm: Sinus rhythm ECHO: As noted above CT Surgery: 05/28/2009: [place], [place]: Aortic root replacement with a 21 mm [place] Ten valve conduit with an attempted modified to [place] procedure Assessment/Plan 1. Abnormal transthoracic echocardiogram Patient was thought to have an abnormal transthoracic echocardiogram as described above. Based upon the patient's cardiovascular history, her recent event with transient interruption of anticoagulant therapy, it was felt prudent the patient undergo further evaluation of her cardiac anatomy/physiology with a transesophageal echocardiogram. The procedure and risks were discussed with the patient. She was agreeable to this approach. 2. Aortic valve disease/bicuspid aortic valve-status post aortic valve replacement with a 21 mm Saint Ten mechanical aortic valve The patient has no ongoing symptoms suspicious for infectious endocarditis or ongoing thromboembolic events. She has remained with AHA antibiotic prophylaxis and on oral systemic anticoagulant therapy. In the interim she is undergone evaluation care as noted above. Based upon her findings she will proceed with further evaluation of her aortic valve apparatus with a transesophageal echocardiogram. 3. 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 Her aortic root based on her previous studies has appeared stable. 4. Hyperlipidemia The patient will need continue risk factor evaluation care as deemed appropriate 5. Hypertension The patient will continue her blood pressure monitor. Her medications can be adjusted as needed. Comment: The above was discussed and reviewed with the patient. This note was generated with [employer] dictation software. It may contain incorrect words, spelling, and punctuation that were not noted in checking the note before signing.
== END ==
PROVIDERS: Family Provider Family Medicine; PCP Family Medicine; Visit Provider Internal Medicine Cardiovascular Disease
DX: I71.2 Thoracic aortic aneurysm, without rupture (principal); Z95.4 Presence of other heart-valve replacement; Z79.01 Long term (current) use of anticoagulants
CPT/HCPCS: 93312; 93320; 93325; J7040

== ENCOUNTER → 2017-10-26 08:57 | Outpatient (CLI) | payer BC, SELFPAY ==
[2017-10-26 12:06] LABS: Erythrocyte Sedimentation Rate 2 mm/hr (0-30)
[2017-10-26 13:11] LABS: CRP < 2.90 mg/L (0.0-3.0)
== END ==
PROVIDERS: Family Provider Family Medicine; PCP Family Medicine; Visit Provider Family Medicine
DX: G25.3 Myoclonus (principal); H53.8 Other visual disturbances
CPT/HCPCS: 36415; 85652; 86140

== ENCOUNTER → 2017-11-02 06:26 | Outpatient (CLI) | payer BC, SELFPAY ==
--- NOTE | 2017-11-02 06:38 | MRI_ITS ---
STUDY: MRI BRAIN WITH AND WITHOUT CONTRAST REASON FOR EXAM: Female, 52 years old. transient altitudanal hemianopia; intermittent bilat loss of vision lower visual field. TECHNIQUE: Standardized multiplanar fat and water weighted pulse sequences were obtained. 7 ml of Gadavist contrast material was administered intravenously for the contrast portion of the examination. COMPARISON: None. FINDINGS: Normal size of the ventricles and extra-axial spaces for the patient's age. Normal white matter tracts of the supratentorial brain. Normal bilateral basal ganglia. Normal thalami. There is no extra-axial fluid accumulation. Normal flow voids within the major intracranial circulation suggesting patency by spin echo criteria. Normal venous enhancement. There is no enhancing intra-axial or extra-axial abnormality. Normal sella turcica, pituitary gland, infundibular stalk, optic chiasm and hypothalamus. Normal tectal plate and pineal gland. Normal midbrain, leigh ann and medulla. Normal cerebellum. Normal basal cisterns. There is bilateral mastoid fluid. Normal bilateral internal auditory canals. No demonstrated orbital abnormality, within the constraints of a routine brain study. Normal visualized paranasal sinuses. Normal calvarium and skull base. Normal visualized soft tissue structures. Normal visualized upper cervical spine. MRI/Brain W/WO Contrast IMPRESSION: Unremarkable unenhanced and enhanced MRI of the brain. Bilateral mastoid fluid. Electronically Signed: Simone Juan MD at 8:03 EDT Tel , Service support ,
== END ==
PROVIDERS: Family Provider Family Medicine; PCP Family Medicine; Visit Provider Family Medicine
DX: H47.013 Ischemic optic neuropathy, bilateral (principal)
CPT/HCPCS: 70553; A9585

== ENCOUNTER → 2017-11-04 08:11 | Outpatient (CLI) | payer BC, SELFPAY ==
[2017-11-04 12:11] LABS: Prothrombin Time (Protime)PT. 45.7 SECONDS (11.7-14.9)
[2017-11-04 12:13] LABS: International Normalized Ratio 4.8
== END ==
PROVIDERS: Family Provider Family Medicine; PCP Family Medicine; Visit Provider Internal Medicine Cardiovascular Disease
DX: Z79.01 Long term (current) use of anticoagulants (principal); Z95.4 Presence of other heart-valve replacement
CPT/HCPCS: 36415; 85610

== ENCOUNTER → 2017-11-17 08:48 | Outpatient (CLI) | payer BC, SELFPAY ==
[2017-11-17 13:03] LABS: International Normalized Ratio 2.4; Prothrombin Time (Protime)PT. 26.2 SECONDS (11.7-14.9)
== END ==
PROVIDERS: Family Provider Family Medicine; PCP Family Medicine; Visit Provider Internal Medicine Cardiovascular Disease
DX: Z79.01 Long term (current) use of anticoagulants (principal); Z95.4 Presence of other heart-valve replacement
CPT/HCPCS: 36415; 85610

== ENCOUNTER → 2017-11-29 13:18 | Outpatient (CLI) | payer BC, SELFPAY ==
[2017-11-29 17:20] LABS: Absolute Lymphocyte Count 2.01 X10^3/ul (0.83-4.51); Absolute Neutrophil Count 3.8 X10^3/uL (2.0-7.7); Basophil# 0.02 X10^3/uL; Basophil% 0.3 % (0-1); Eosinophil# 0.15 X10^3/uL; Eosinophils% 2.3 % (0-5); Hematocrit 38.7 % (37-47); Hemoglobin 13.1 g/dl (12.0-15.0); Lymphocyte # 2.01 X10^3/ul (4.0); Mean Corp Hgb Conc 33.9 g/gl (32-36); Mean Corpuscular Hgb 29.3 pg (27.0-32.0); Mean Corpuscular Volume 86.6 fL (81-99); Mean Platelet Vol. 10.4 fl (6.2-12.0); Monocyte# 0.49 X10^3/uL; Monocyte% 7.6 % (0-10); Neutrophil # 3.81 X10^3/uL (2.7-7.7); Neutrophil % 58.6 % (47-70); Platelet Count 274 K/mm3 (150-450); RBC Distribution Width CV 13.5 % (11.6-14.6); RBC Distribution Width SD 41.2 fl (35.1-43.9); Red Blood Count 4.47 M/mm3 (4.2-5.4); White Blood Count 6.5 K/mm3 (4.4-11.0)
[2017-11-29 17:22] LABS: POSITIVE COUNT NO; POSITIVE DIFFERENTIAL NO; POSITIVE MORPHOLOGY NO
[2017-11-29 17:38] LABS: Vitamin B12 1070 pg/mL (211-911); Vitamin D,25 Hydroxy 31.1 ng/mL (29.95-100.01)
[2017-11-29 17:44] LABS: ALB/GLOB Ratio 1.1 RATIO (0.9-2.4); AST(SGOT) 21 U/L (15-37); Alanine Aminotransfer ALT/SGPT 25 U/L (13-56); Alkaline Phosphatase 114 U/L (45-117); Anion Gap 8 (5-15); BUN 15 mg/dL (7-18); BUN/Creat Ratio 17.1 RATIO (10-20); Chloride 103 mmol/L (98-107); Creatinine, Serum 0.88 mg/dL (0.55-1.02); EST Glomerular Filtration Rate 72 mL/min (>60); Est Glom Filt Rate - Afr Amer 87 mL/min (>60); Globulin 3.8 g/dL (2.2-4.2); Glucose 77 mg/dL (74-106); Potassium 3.8 mmol/L (3.5-5.1); Protein, Total 7.8 g/dL (6.4-8.2); Sodium Level 139 mmol/L (136-145); Thyroid Stim Hormone (TSH) 0.48 uIU/mL (0.358-3.74)
[2017-11-29 17:47] LABS: Hemoglobin A1c 5.1 % (4.2-6.3)
[2017-11-29 17:51] LABS: BNP,B-Type NATRIURETIC PEPTIDE 25.9 pg/mL (0-100)
== END ==
PROVIDERS: Family Provider Family Medicine; PCP Family Medicine; Visit Provider Family Medicine
DX: R07.9 Chest pain, unspecified (principal); R53.83 Other fatigue; R73.01 Impaired fasting glucose
CPT/HCPCS: 36415; 80053; 82306; 82533; 82607; 83036; 83880; 84443; 85025

== ENCOUNTER → 2017-12-07 13:49 | Outpatient (CLI) | payer BC, SELFPAY ==
[2017-12-07 16:03] LABS: International Normalized Ratio 2.8; Prothrombin Time (Protime)PT. 29.7 SECONDS (11.7-14.9)
[2017-12-07 16:57] LABS: HIV - WCH Non-Reactive (Nonreactive)
[2017-12-07 22:39] LABS: Chlamydia Trachomatis by PCR Negative (Negative); Neisserai gonorrhoeae by PCR Negative (Negative); Probe Check PASS; Sample Adequacy Control PASS; Specimen Processing Control PASS
[2017-12-09 03:07] LABS: HEPATITIS B SURFACE AG Negative (Negative); Hepatitis A AB, Total Positive (Negative); Hepatitis A IgM Antibody Negative (Negative); Hepatitis B Core AB IgM Negative (Negative); Hepatitis B Core Ab Total Negative (Negative); Hepatitis C Ab <0.1 s/co ratio (0.0-0.9)
[2017-12-09 04:13] LABS: Rapid Plasmin Reagin (RPR) NONREACTIVE (NONREACTIVE)
[2017-12-09 16:17] LABS: Hep B Surface Antibodies Reactive (.)
== END ==
PROVIDERS: Family Provider Family Medicine; PCP Family Medicine; Visit Provider Family Medicine
DX: Z20.9 Contact with and (suspected) exposure to unspecified communicable disease (principal)
CPT/HCPCS: 36415; 85610; 86592; 86703; 86704; 86705; 86706; 86708; 86709; 86803; 87340; 87491; 87591

== ENCOUNTER 2017-12-09 20:44 | Emergency (ER) | payer BC, SELFPAY ==
[2017-12-09 20:46] VITALS: BP 121/74; PULSE 90; RESP 20; TEMP 36.7; O2SAT 100; BMI 27.4
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
[2017-12-09] MEDS: Ondansetron 4 MG/2 ML Vial IV (21:55)
[2017-12-09] MEDS: Morphine 4 MG/ML Syringe IV (21:55)
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
[2017-12-09] MEDS: oxyCODONE 5 MG Tablet PO (22:42)
--- NOTE | 2017-12-09 23:15 | ED.RN ---
WITH DISCHARGE VITAL SIGNS PATIENT BP LOW. NOTIFIED DR. FLORES. NEW ORDER FOR 500 ML BOLUS. WILL CONTINUE TO MONITOR.
[2017-12-09 23:52] VITALS: BP 113/54; PULSE 69; RESP 16; O2SAT 98
== END 2017-12-09 23:58 | disposition home or self-care (01) ==
PROVIDERS: Emergency Provider Emergency Medicine; Family Provider Family Medicine; PCP Family Medicine
DX: S20.212A Contusion of left front wall of thorax, initial encounter (principal); S20.211A Contusion of right front wall of thorax, initial encounter; S40.012A Contusion of left shoulder, initial encounter; S40.011A Contusion of right shoulder, initial encounter; Y04.2XXA Assault by strike against or bumped into by another person, initial encounter; Y93.9 Activity, unspecified; Y92.89 Other specified places as the place of occurrence of the external cause; Y99.9 Unspecified external cause status; Z95.2 Presence of prosthetic heart valve; K21.9 Gastro-esophageal reflux disease without esophagitis; I10 Essential (primary) hypertension; E78.00 Pure hypercholesterolemia, unspecified; Z85.41 Personal history of malignant neoplasm of cervix uteri; Z79.01 Long term (current) use of anticoagulants
CPT/HCPCS: 71046; 96374; 96375; 99285; J7030; A4216; J2405

== ENCOUNTER → 2017-12-29 08:41 | Outpatient (CLI) | payer BC, SELFPAY ==
[2017-12-29 12:25] LABS: International Normalized Ratio 2.7; Prothrombin Time (Protime)PT. 28.8 SECONDS (11.7-14.9)
== END ==
PROVIDERS: Family Provider Family Medicine; PCP Family Medicine; Visit Provider Internal Medicine Cardiovascular Disease
DX: Z79.01 Long term (current) use of anticoagulants (principal); Z95.4 Presence of other heart-valve replacement
CPT/HCPCS: 36415; 85610

== ENCOUNTER 2018-01-05 17:51 | Emergency (ER) | payer BC, SELFPAY ==
[2018-01-05 17:51] VITALS: BP 147/81; PULSE 72; RESP 18; TEMP 36.8; O2SAT 100; BMI 25.9
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
--- NOTE | 2018-01-05 18:16 | RAD_ITS ---
STUDY: X-RAY - LEFT HAND REASON FOR EXAM: Female, 52 years old. Injury TECHNIQUE: 3 view(s) of the hand. COMPARISON: None. FINDINGS: Normal radiocarpal articulation. Normal distal radioulnar joint. Normal visualized carpal bones. Normal carpal articulations Normal carpometacarpal articulation of the thumb. Normal second through fifth carpometacarpal joints. Normal metacarpi. Normal metacarpophalangeal joint of the thumb. Normal interphalangeal joint of the thumb. Normal proximal and distal phalanges of the thumb. Normal metacarpophalangeal joints of the second through fifth fingers. Normal proximal and distal interphalangeal joints of the second through fifth fingers. Normal phalanges of the second through fifth fingers. The soft tissue structures are unremarkable. RAD/Hand Min 3 Views IMPRESSION: Normal x-ray examination of the hand. Electronically Signed: Rajat Silva MD at 19:04 EST , Service support ,
== END 2018-01-05 18:42 | disposition home or self-care (01) ==
PROVIDERS: Emergency Provider Emergency Medicine; Family Provider Family Medicine; PCP Family Medicine
DX: S69.92XA Unspecified injury of left wrist, hand and finger(s), initial encounter (principal); Y04.8XXA Assault by other bodily force, initial encounter; Y93.9 Activity, unspecified; Y92.89 Other specified places as the place of occurrence of the external cause; Y99.0 Civilian activity done for income or pay; Z79.01 Long term (current) use of anticoagulants; K21.9 Gastro-esophageal reflux disease without esophagitis; I10 Essential (primary) hypertension; E78.00 Pure hypercholesterolemia, unspecified
CPT/HCPCS: 73130; 99282

== ENCOUNTER → 2018-01-31 15:08 | Outpatient (CLI) | payer BC, SELFPAY ==
[2018-01-05 17:51] VITALS: BMI 25.9
[2018-01-31 17:57] LABS: International Normalized Ratio 2.1; Prothrombin Time (Protime)PT. 23.7 SECONDS (11.7-14.9)
--- OUTSIDE RECORDS SUMMARY | 2018-05-05 03:30 | XMS RPT_ITS ---
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 Objective: Pulse: 77; Blood Pressure: 135/80; RR: 12 General: Awake, Alert, Oriented x 3, Cooperative, No Acute Distress HEENT: Atraumatic, Normocephalic, PERRL, EOMI, Sclera Non Icteric Oral: Moist Mucosa Neck: Supple, Good ROM, No JVD Lungs: Clear to auscultation Cardiovascular: Regular Rhythm, Normal S1, [place] Prosthetic S2 Vascular: No Carotid Bruits Abdomen: Bowel Sounds Present, Soft, Non Tender Extremities: No Cyanosis, No Clubbing, No edema Lymphatic: No Lymph Node Enlargement Neurological: No Focal Motor or Sensory Deficit Psych/Mental Status: Appropriate, Normal Affect VTE Information - Inpt Only VTE Present on Admission: No VTE Mechan Device Prophylaxis: None VTE Pharm Prophylaxis ordered?: No Reason prophylaxis not ordered:: Treatment Not Indicated - Patient already on oral systemic anticoagulant therapy with warfarin/Coumadin Rhythm: Sinus rhythm ECHO: As noted above CT Surgery: 05/28/2009: [place], [place]: Aortic root replacement with a 21 mm Saint Ten valve conduit with an attempted modified to [place] procedure Assessment/Plan 1. Abnormal transthoracic echocardiogram Patient was thought to have an abnormal transthoracic echocardiogram as described above. Based upon the patient's cardiovascular history, her recent event with transient interruption of anticoagulant therapy, it was felt prudent the patient undergo further evaluation of her cardiac anatomy/physiology with a transesophageal echocardiogram. The procedure and risks were discussed with the patient. She was agreeable to this approach. 2. Aortic valve disease/bicuspid aortic valve-status post aortic valve replacement with a 21 mm Saint Ten mechanical aortic valve The patient has no ongoing symptoms suspicious for infectious endocarditis or ongoing thromboembolic events. She has remained with [facility] antibiotic prophylaxis and on oral systemic anticoagulant therapy. In the interim she is undergone evaluation care as noted above. Based upon her findings she will proceed with further evaluation of her aortic valve apparatus with a transesophageal echocardiogram. 3. 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 Her aortic root based on her previous studies has appeared stable. 4. Hyperlipidemia The patient will need continue risk factor evaluation care as deemed appropriate 5. Hypertension The patient will continue her blood pressure monitor. Her medications can be adjusted as needed. Comment: The above was discussed and reviewed with the patient. This note was generated with [employer] dictation software. It may contain incorrect words, spelling, and punctuation that were not noted in checking the note before signing. 10/14/17 0946 <Electronically signed by Andrew Gustafson MD> Date Andrew Gustafson MD Cosigner Signature: Date (if applicable) CC: Miya Golmdan DO; Andrew Gustafson MD Signed PROTHROMBIN TIME W/INR Collected: 10/13/2017 Status: F Source: [place] 7:[address] [facility] REPOSITORY TYPE CODE TESTS RESULT OUT OF RANGE REFERENCE UNITS LAB L300.4150 11.7-14.9 SECONDS High PROTIME 26.0 LAB L300.4200 Normal INR 2.4 Performed By: #### L300.3900 #### [facility] [address] [place], [address] PROTHROMBIN TIME W/INR Collected: 10/06/2017 Status: F Source: [place] 9:[address] [facility] REPOSITORY Order Comment: INT ORDER FROM DR. GUSTAFSON TYPE CODE TESTS RESULT OUT OF RANGE REFERENCE UNITS LAB L300.4150 11.7-14.9 SECONDS High PROTIME 20.1 LAB L300.4200 Normal INR 1.7 Performed By: #### L300.3900 #### [facility] [address] [place], [address] PROTHROMBIN TIME W/INR Collected: 09/29/2017 Status: F Source: [place] 8:[address] [facility] REPOSITORY Order Comment: CRITICAL VALUE VERIFIED. CALLED TO LESLIE 09/29/17 1245 Georgina Miles. RESULTS READ BACK BY LESLIE . Comments: STANDING ORDER TYPE CODE TESTS RESULT OUT OF REFERENCE UNITS RANGE LAB L300.4150 11.7-14.9 SECONDS High PROTIME 38.3 LAB L300.4200 High alert INR 3.9 Performed By: #### L300.3900 #### [facility] [address] [place], [address] ECHOCARDIOGRAM COMPLETE Observed: 09/22/2017 Status: F Source: [place] 6:[address] [facility] REPOSITORY [facility] Cardiovascular Services [address] [place] [address] Echo Complete 09/22/17 1356 MR#: [id number] Acct: [id number] Name: GARDENIA MUJICA Rep #: [id number] : 1965 52 From: Andrew Gustafson MD Attending Dr: Andrew Gustafson MD Status: REG CLI Ordering Dr: Andrew Gustafson MD Date: 09/22/17 Location: [facility] Sex: F C Admitted: Reason For Study: valve replacement eval Procedure This was a 2D Doppler, Color Flow transthoracic echocardiogram. The exam was of fair technical quality due to diminished acoustic windows. The study was technically difficult. Exam performed in department. Left Ventricle Normal LV size. Left ventricular systolic function is normal. The estimated ejection fraction is 65 %. Normal diastology for age. No regional wall motion abnormalities noted. Right Ventricle Normal RV size. Normal systolic function. Atria Normal left atrium. Normal right atrium. No doppler evidence for ASD. Mitral Valve There is no mitral annular calcification. Mild diffuse mitral valve thickening. Trivial mitral valve insufficiency. Tricuspid Valve Normal tricuspid valve. Mild tricuspid valve insufficiency. Right ventricular systolic pressure estimated to be 22 mmHg. Aortic Valve Stable appearing mechanical aortic valve apparatus. Mild transvalvular insufficiency of the aortic valve. Pulmonic Valve Normal pulmonic valve. Trivial pulmonic valve insufficiency. Great Vessels Aortic root repair. Pericardium/Pleural No pericardial effusion. MMode/2D Measurements AND Calculations LVIDd: 4.5 cm IVSd: 1.0 cm LA dimension: 4.1 cm LVIDs: 2.0 cm LVPWd: 0.97 cm FS: 55.5 % LAV(MOD-bp): 38.9 ml LA A4 area: 17.5 cm2 RA A4 area: 13.0 cm2 LAV(MOD-bp) Indexed: 22.1 ml/m2 LAV(MOD-sp2): 32.0 ml LAV(MOD-sp4): 45.3 ml Time Measurements MV dec time: 0.24 sec Doppler Measurements AND Calculations MV E max araceli: 107.2 cm/sec Lat Peak E' Araceli: 13.7 cm/sec Med Peak E' Araceli: 8.7 cm/sec MV A max araceli: 80.4 cm/sec E/E' lat: 7.8 E/E' med: 12.3 MV E/A: 1.3 MV V2 max: 113.0 cm/sec MV P1/2t max araceli: 113.6 cm/sec Ao V2 max: 272.5 cm/sec MV max P.1 mmHg MV P1/2t: 102.7 msec Ao max P.7 mmHg MV V2 mean: 56.6 cm/sec MV dec slope: 324.0 cm/sec2 Ao V2 mean: 173.7 cm/sec MV mean P.6 mmHg MVA(P1/2t): 2.1 cm2 Ao mean P.9 mmHg MV V2 VTI: 34.6 cm Ao V2 VTI: 51.9 cm LV V1 max: 118.5 cm/sec PA V2 max: 73.1 cm/sec TR max araceli: 217.2 cm/sec LV V1 max P.6 mmHg TR max P.9 mmHg LV V1 mean P.3 mmHg LV V1 mean: 68.8 cm/sec LV V1 VTI: 23.9 cm Interpretation Summary The study was technically difficult. Left ventricular systolic function is normal. The estimated ejection fraction is 65 %. Mild diffuse mitral valve thickening. Trivial mitral valve insufficiency. Mild tricuspid valve insufficiency. Stable appearing mechanical aortic valve apparatus. Mild transvalvular insufficiency of the aortic valve. Trivial pulmonic valve insufficiency. Aortic root repair. Right ventricular systolic pressure estimated to be 22 mmHg. Normal diastology for age. Comment: a) 2D echocardiographic images demonstrate a vague echodensity in the left atrium near the base of the anterior mitral valve leaflet / AV area appearing c/w echocardiographic artifact / reverberation, however, other etiologies of intracardiac echodensities may not necessarily be excluded. b) Consider further evaluation with MARCEL if clinically indicated. Ordering Physician: Andrew Gustafson Referring Physician: Andrew Gustafson Performed By: Rm Morelos RCS 09/22/17 180 Date Andrew Gustafson MD CC: Miya Goldman DO; Andrew Gustafson MD Date Dictated: 09/22/17 1356 Date Transcribed: 09/22/171805 Decal Decorator: Signed PROTHROMBIN TIME W/INR Collected: 09/22/2017 Status: F Source: [place] 2:[address] [facility] REPOSITORY TYPE CODE TESTS RESULT OUT OF REFERENCE UNITS RANGE LAB L300.4150 11.7-14.9 SECONDS High PROTIME 40.0 LAB L300.4200 High alert INR 4.1 Result Comment: CRITICAL VALUE VERIFIED. CALLED TO [facility] AT 'S OFFICE. 09/22/17 9648 Romeo Jordan. RESULTS READ BACK BY SAME. Performed By: #### L300.3900 #### [facility] [address] [place], [address] PROTIME W/INR Collected: 09/14/2017 Status: F Source: [place] 7:[address] [facility] REPOSITORY TYPE CODE TESTS RESULT OUT OF REFERENCE UNITS RANGE LAB L9200.1001 11.9-14.4 SEC High PROTIME ISTAT 28.9 Result Comment: Reference Range 11.9 - 14.4 LAB L9200.2000 Normal INR ISTAT 2.50 Result Comment: Critical Value > 3.5 Performed By: #### L9200.0000 #### [facility] Point of Care [address] [facility] [address] [place] [address] PROTHROMBIN TIME W/INR Collected: 09/09/2017 Status: F Source: [place] 2:[address] [facility] REPOSITORY Order Comment: Send Results To: Miya Goldman Reason for Laboratory Test Mechanica Aortic Valve. TYPE CODE TESTS RESULT OUT OF RANGE REFERENCE UNITS LAB L300.4150 11.7-14.9 SECONDS High PROTIME 18.4 LAB L300.4200 Normal INR 1.5 Performed By: #### L300.3900 #### [facility] [address] [facility] [place], [address] 12 LEAD ELECTROCARDIOGRAM Observed: 09/08/2017 Status: F Source: [place] 12:[address] [facility] REPOSITORY [facility] Cardiovascular Services [address] [place] [address] 12 Lead EKG 09/06/17 1633 MR#: [id number] Acct: [id number] Name: GARDENIA MUJICA Rep #: [id number] : 1965 52 From: Andrew Gustafson MD Attending Dr: Jose L Mccollum MD Status: [facility] Ordering Dr: Jose L Mccollum MD Date: 09/06/17 Location: [facility] Sex: F C Admitted: Test Reason : PREOP Blood Pressure : / mmHG Vent. Rate : 068 BPM Atrial Rate : 068 BPM P-R Int : 134 ms QRS Dur : 092 ms QT Int : 442 ms P-R-T Axes : 035 037 053 degrees QTc Int : 469 ms Normal sinus rhythm Normal ECG Confirmed by ANDREW GUSTAFSON MD ([id number]), fan mail editor EDY KURTZ ([id number]) on 09/08/2017 12:28:40 PM Referred By: Jose L Mccollum Confirmed By:ANDREW GUSTAFSON MD 09/08/17 1228 Date Andrew Gustafson MD CC: Jose L Mccollum MD; Miya Goldman DO Signed PROTHROMBIN TIME W/INR Collected: 09/06/2017 Status: F Source: [place] 3:[address] [facility] REPOSITORY TYPE CODE TESTS RESULT OUT OF REFERENCE UNITS RANGE LAB L300.4150 11.7-14.9 SECONDS High PROTIME 38.3 LAB L300.4200 High alert INR 3.9 Result Comment: CRITICAL VALUE VERIFIED. CALLED TO DR. MCCOLLUM 09/06/17 1825 Erlinda Yoder. RESULTS READ BACK BY SAME . Performed By: #### L300.3900, L300.4310 #### [facility] [address] [facility] [address] [place], [place], [id number] PARTIAL THROMBOPLAST Collected: 09/06/2017 Status: F Source: [place] TIME 3:[address] [facility] REPOSITORY TYPE CODE TESTS RESULT OUT OF REFERENCE UNITS RANGE LAB L300.4310 24.1-36.2 Seconds High PTT 47.9 Performed By: #### L300.3900, L300.4310 #### [facility] [address] [place], [place], [id number] LIVER PROFILE Collected: 09/06/2017 Status: F Source: [place] 3:[address] [facility] REPOSITORY TYPE CODE TESTS RESULT OUT OF RANGE REFERENCE UNITS LAB L501.1500 6.4-8.2 g/dL Normal T PROT 7.3 LAB L501.1800 3.2-5.0 g/dL Normal ALB 3.6 LAB L501.1950 2.2-4.2 g/dL Normal GLOB 3.7 LAB L501.4100 15-37 U/L Normal AST 19 LAB L501.4305 45-117 U/L Normal ALK P 99 LAB L501.4405 13-56 U/L Normal ALT 24 LAB L501.4600 0.20-1.00 mg/dL Normal T BILI 0.50 LAB L501.4700 0.00-0.30 mg/dL Normal D BILI 0.07 Performed By: #### L500.3400 #### [facility] [address] [place], [address] OPERATIVE REPORT Observed: 08/14/2017 Status: F Source: [place] 11:[address] [facility] REPOSITORY [facility] Medical Records Department [address] [place] [address] Operative Report 07/28/17 1753 MR#: [id number] Acct: [id number] Name: GARDENIA MUJICA Rep #: [id number] : 1965 52 From: Jose L Mccollum MD PCP: Miya Goldman DO Status: DIS IN Y Location: [place] [address] Report of Operation Date of Procedure: 07/28/17 Pre-Operative Diagnosis: 1. Traumatic hematoma left anterolateral thigh. 2. [facility] use of Coumadin for mechanical heart valve. Post-Operative Diagnosis: 1. Traumatic intramuscular hematoma left anterolateral thigh (vastus lateralis muscle) (140 cm2). 2. Open surgical hematoma wound left anterolateral thigh with muscle involvement (vastus lateralis muscle). 3. [facility] use of Coumadin for mechanical heart valve. Surgery/Procedure Performed:: Surgical preparation left anterolateral thigh with incision and drainage and evacuation and excisional debridement traumatic intramuscular hematoma (vastus lateralis muscle), (140 cm2). Description of Surgical Findings:: The patient is a 52 year old F who is on Coumadin for a mechanical heart valve was walking her dog and fell on the sidewalk back on 07/24/17. She was seen in the ED and she underwent plain x-ray and a CT in which showed a hematoma. She was discharged home and recommended to follow-up with her primary care physician. When seen today, she complained of increasing pain and swelling in her left thigh and returned to the ED for further evaluation. She was admitted. She states she has been off her Coumadin for two days and her INR today was 1.8. Her WBC was 8.9. Her Hgb was 10.2. Back on 07/24/17, her Hgb was 11.9. She denies fever. I was asked to evaluate this patient for surgical options for treatment. , her left eye had become much more swollen tender and firm and she was referred back to the emergency room to get admitted for possible evacuation. Patient was informed of the risks and complications of the procedure including alternatives to surgery. These were discussed with her personally. She voices understanding and wishes to proceed. Size of defect left anterolateral thigh - 20 x 7 x 4 cm. medical practice administrator: None Type of Anesthesia:: General Specimen's removed: Traumatic intramuscular hematoma left anterolateral thigh to Pathology and Microbiology. Drains: None. Estimated Blood Loss (mL): 400 ml. Description of Procedure: Patient was taken to OR in supine position and was placed under general anesthesia. Her left thigh was prepped and draped in the usual fashion. SCD's were placed for DVT prophylaxis. Perioperative antibiotics were given intravenously. Most of the skin bruising was laterally. There was some firmness anteriorly. A longitudinal ellipse was marked out laterally. These markings were infiltrated with xylocaine with epinephrine. After waiting 5 minutes for the anesthetic to take effect, a longitudinal elliptical incision was made laterally. Dissection was carried down to the muscular fascia. No bleeding was noted in the subcutaneous tissue. The tensor fascia angelina was incised to get exposure to the vastus lateralis muscle and fascia. There was some injury to the vastus lateralis muscle. The muscle was firm. A fasciotomy was performed and the vastus lateralis muscle bulged out. It appeared viable. Where the muscle injury was, further dissection was done to get to the depth of the muscular injury. At this point a large intramuscular hematoma was noted. The hematoma extended down to the femur. The firmness that was palpable anteriorly was an anterior extension of the hematoma. After the hematoma was evacuated, the firmness anteriorly had softened. No acute bleeding was seen as the hematoma was all clot. About 400 ml of clot was removed from the wound. Some of the clot and surrounding tissue was sent to Microbiology for culture and the rest was sent to Pathology for analysis. A positive culture will necessitate antibiotic therapy. The wound was then copiously irrigated with saline. Some edges of the wound was cauterized. Some of the injured vastus lateralis muscle was cauterized as well to get hemostasis. The size of the defect after incision and drainage and evacuation and excisional debridement was 20 x 7 x 4 cm or 140 cm2. The wound was then packed with Kerlix gauze with Betadine all the way down to the femur bone. The cavity was large enough for my fist. A dry Kerlix gauze was then applied followed by abd pads for a compression dressing. This was then reinforced with compression SKYLA wrap. Because of the depth of the wound to the bone, will not be able to apply the VAC for a few days. Will proceed with daily Betadine Kerlix gauze dressing changes and consider placement of the VAC on Tuesday. Anticipate increased pain with the dressing changes and going home at discharge will be overwhelming. I think she should be evaluated for an ECF at discharge for a few weeks before going home. Anticipate increased metabolic demands from the large wound. Will check a Prealbumin and encourage nutritional supplementation with protein to help the healing process. After discharge, will followup at the [facility]ound Center. Grafts/Implants Used: None. - Complications None. - Admit VTE Documentation VTE Present on Admission: No - patient is on Coumadin for a mechanical heart valve. VTE Mechan Device Prophylaxis: SCD's VTE Pharm Prophylaxis ordered?: Yes Code Visit Surgery Charges CPT - 50581 ICD-10 - S70.12xA, Z79.01 51489 S71.002A, S70.12xA, Z79.01 70340 S71.002A, S70.12xA, Z79.01 08/14/17 2335 <Electronically signed by Jose L Mccollum MD> Date Jose L Mccollum MD CC: Jose L Mccollum MD; Tor Cox MD; Miya Goldman DO; Mejia Moy DO; [facility] Signed CBC W/DIFF, AUTOMATED Collected: 08/13/2017 Status: F Source: [place] 7:[address] [facility] REPOSITORY TYPE CODE TESTS RESULT OUT OF RANGE REFERENCE UNITS LAB L100.1000 4.4-11.0 K/mm3 Normal WBC 6.2 LAB L100.1200 4.2-5.4 M/mm3 Low RBC 3.59 LAB L100.1300 12.0-15.0 g/dl Low HGB 10.8 LAB L100.1400 37-47 % Low HCT 31.7 LAB L100.1500 81-99 fL Normal MCV 88.3 LAB L100.1600 27.0-32.0 pg Normal MCH 30.1 LAB L100.1700 32-36 g/gl Normal MCHC 34.1 LAB L100.1810 11.6-14.6 % Normal RDW CV 13.4 LAB L100.1820 35.1-43.9 fl Normal RDW SD 42.1 LAB L100.1900 150-450 K/mm3 Normal PLT 373 LAB L100.2000 6.2-12.0 fl Normal MPV 9.1 LAB L100.2100 47-70 % Normal NEUT% 57.1 LAB L100.2200 19-41 % Normal LY% 31.0 LAB L100.2300 0-10 % Normal MONO% 7.6 LAB L100.2400 0-5 % Normal EO% 3.2 LAB L100.2500 0-1 % Normal BASO% 0.5 LAB L100.2550 0.0-0.9 % Normal IM GRAN % 0.600 Result Comment: IG% - Immature Granulocytes (promyelocytes, myelocytes and metamyelocytes) > 1% indicates that a LEFT SHIFT is Present. LAB L100.2620 2.0-7.7 X10 3/uL Normal Absolute Neut 3.5 LAB L100.2720 0.83-4.51 X10 3/ul Normal Absolute Lymph 1.91 Performed By: #### L100.0100 #### [facility] [address] [place], [place], [address] BASIC METABOLIC Collected: 08/13/2017 Status: F Source: [place] PROFILE (BMP) 7:[address] [facility] REPOSITORY TYPE CODE TESTS RESULT OUT OF RANGE REFERENCE UNITS LAB L501.0100 74-106 mg/dL Normal GLU 84 Result Comment: Please note revised GLUCOSE reference range effective 2017. LAB L501.1000 7-18 mg/dL Normal BUN 18 LAB L501.1100 0.55-1.02 mg/dL Normal CREAT,SERUM 0.75 Result Comment: The validity of the calculated GFR AND GFRAA in patients over 70 years has not been determined. Clinical correlation is essential. LAB L501.1110 >60 mL/min Normal EST GFR 87 Result Comment: Non- GFR Calc LAB L501.1115 >60 mL/min Normal EST GFR - AA 105 Result Comment: GFR Calc LAB L501.1255 ml/min Normal Estimated CRCL 75.77 LAB L501.1300 10-20 RATIO High BUN/CRE 24.1 LAB L501.2200 8.5-10 mg/dL Normal .1 CA 9.0 LAB L501.5300 136-14 mmol/L Normal 5 NA 140 LAB L501.5600 3.5-5. mmol/L Normal 1 K 3.9 LAB L501.5900 98-107 mmol/L Normal CL 104 LAB L501.6100 21.0-3 mmol/L Normal 2.0 CO2 28.0 LAB L501.6200 5-15 Normal GAP 8 Performed By: #### L500.2500 #### [facility] [address] [place], [address] PROTHROMBIN TIME W/INR Collected: 08/11/2017 Status: F Source: [place] 5:[address] [facility] REPOSITORY TYPE CODE TESTS RESULT OUT OF RANGE REFERENCE UNITS LAB L300.4150 11.7-14.9 SECONDS High PROTIME 25.2 LAB L300.4200 Normal INR 2.3 Performed By: #### L300.3900 #### [facility] [address] [place], [address] HOME HEALTH PROGRESS Observed: 08/10/2017 Status: F Source: [place] NOTE 9:[address] [facility] REPOSITORY [facility] Medical Records Department [address] [place] [address] Home Health Progress Note Suyt-gh-Eofd Encounter Encounter Date: 08/10/172129 MR#: [id number] Acct: [id number] Name: GARDENIA MUJICA Rep #: [id number] : 1965 52 From: Marcel Moya MD PCP: Miya Goldman DO Status: ADM IN Location: [place] [address] Home Health Note - Plan Overview of reason of hospitalization: The patient is a 52 year old Female with below past medical history hospitalized for left thigh hematoma, underwent incision, drainage, evacuation, excisional debridement with wound VAC placement per Dr. Mccollum 07/28/2017, admitted to TCU with debility, here for rehabilitation, strengthening, wound care, pain control, anticoagulation, prior to discharge home with spouse. Discharge home with spouse, Home Health Services. Problems: Patient was seen for (Last Reviewed 06/29/17 @ 13:24 by Shannon Mcneil) Fall (Acute) Cervical cancer (Chronic) GERD (gastroesophageal reflux disease) (Chronic) Anxiety (Chronic) Menopausal disorder (Chronic) Complete List of Medical Problems (Last Reviewed 06/29/17 @ 13:24 by Shannon Mcneil) Fall (Acute) Cervical cancer (Chronic) GERD (gastroesophageal reflux disease) (Chronic) Anxiety (Chronic) Menopausal disorder (Chronic) [facility] current use of anticoagulant (Chronic) Open wound of left hip and thigh with complication (Acute) Traumatic hematoma of left thigh (Acute) Screen for colon cancer (Acute) Thoracic aortic aneurysm (Chronic) History of aortic valve replacement with metallic valve (Chronic 05/28/09) Bicuspid aortic valve (Chronic) Hyperlipidemia (Chronic) Hypertension (Chronic) - Requirements and Reasons Disciplines Needed/Ordered: Jail, Physical Therapy Reason for Disciplines: Wound Care, Gait Training, Stair Training, Fall Prevention, Home Safety/Equipment Instruction, Balance and/or Posture Training, Transfer Training Related To: Limited/Poor Endurance, Physical Impairments, Unsteady Gait/Balance, Fall Risk Patient is unable to leave the home: Without Aid of Supportive Devices (crutches, cane, wheelchair, walker), Without the assistance of another person 08/10/172130 <Electronically signed by Marcel Moya MD> Date Marcel Moya MD Cosigner Signature (if indicated): Date CC: Signed DISCHARGE SUMMARY Observed: 08/10/2017 Status: F Source: [place] 9:[address] [facility] REPOSITORY [facility] Medical Records Department [address] [place] [address] Discharge Summary 08/10/172127 MR#: [id number] Acct: [id number] Name: GARDENIA MUJICA Rep #: [id number] : 1965 52 From: Marcel Moya MD PCP: Miya Goldman DO Status: ADM IN Y Location: [place] [address] Discharge Date and Diagnosis - Problem List Patient Problems: Active and Suspected Problems (Last Reviewed 06/29/17 @ 13:24 by Shannon Mcneil) Fall (Acute) Date of Admission: 08/05/17 Date of Discharge: 08/13/17 - Primary Discharge Diagnosis Active and Suspected Problems (Last Reviewed 06/29/17 @ 13:24 by Shannon Mcneil) Fall (Acute) - Secondary Discharge Diagnosis Chronic Problems (Last Reviewed 06/29/17 @ 13:24 by Shannon Mcneil) Cervical cancer (Chronic) GERD (gastroesophageal reflux disease) (Chronic) Anxiety (Chronic) Menopausal disorder (Chronic) 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 Ten Valved conduit 05/28/09 Bicuspid aortic valve (Chronic) Hyperlipidemia (Chronic) Hypertension (Chronic) Hospital Course and Treatment Imaging Results: 08/05/17 15:05 Diet: Regular Diet Food consistency:: Regular Liquid Consistency:: Regular/Thin Type of Dietary Supplement:: Tha ([place]) Is pt able to select menu?: Yes Consultations 08/05/17 Consult: Onc/Wound/property economist Routine Comment: left thigh hematoma Operations: None, - - Incision and drainage 07/28/2017 of left anterolateral thigh hematoma secondary to mechanical fall prior to admission. Procedures: None Summary of Care Provided: The patient is a 52 year old Female with below past medical history hospitalized for left thigh hematoma, underwent incision, drainage, evacuation, excisional debridement with wound VAC placement per Dr. Mccollum 07/28/2017, admitted to TCU with debility, here for rehabilitation, strengthening, wound care, pain control, anticoagulation, prior to discharge home with spouse. Discharge home with spouse, Home Health Services. Discharge Diet: No Restrictions Discharge Activity: Return to Normal Activity, May Shower, Use Walker Weight Bearing Status: Weight bearing as tolerated Call your doctor if you observe: Fever of 101 or Higher, Inability to urinate, Inability to have a bowel movement, Shortness of breath, Chest pain, Uncontrolled pain Home Medications: Medications to take at Discharge Lisinopril/Hydrochlorothiazide [Zestoretic 10/.5 Tablet] 10 mg PO DAILY 08/26/16 alprazolam 0.25 mg tablet 0.25 mg PO BID-TID PRN 06/29/17 Estradiol 0.5 mg PO QDAY 07/27/17 Estradiol 1 g VAGINAL Q3D 07/27/17 Acetaminophen [Tylenol] 1,000 mg PO Q8H PRN tablet 08/10/17 Amitriptyline HCl [Elavil] 25 mg PO QHS #30 tab 08/10/17 Calcium Carbonate [Tums] 500 mg PO Q4H PRN PRN tablet 08/10/17 Nutritional Supplement [Tha - ORANGE FLAVOR] 1 packet PO BIDCM #60 packet 08/10/17 Oxycodone [Oxyir] 5 - 10 mg PO Q4H PRN PRN 7 Days #42 tab 08/10/17 Polyethylene Glycol 3350 [Miralax] 17 gm PO DAILY #30 packet 08/10/17 Senna/Docusate Sodium [Senokot-S] 2 tab PO BID #120 tab 08/10/17 Warfarin [Coumadin] 3 mg PO DAILY@1700 #30 tab 08/10/17 traMADol [Ultram] 50 mg PO Q6H PRN PRN #42 tab 08/10/17 Following Prescrptions Were Given to Patient: Oxycodone [Oxyir] 5 - 10 mg PO Q4H PRN PRN 7 Days #42 tab PRN Reason: Severe Pain (6-10/10) traMADol [Ultram] 50 mg PO Q6H PRN PRN #42 tab PRN Reason: Moderate Pain (4-5/10) Amitriptyline HCl [Elavil] 25 mg PO QHS #30 tab Polyethylene Glycol 3350 [Miralax] 17 gm PO DAILY #30 packet Warfarin [Coumadin] 3 mg PO DAILY@1700 #30 tab Nutritional Supplement [Tha - ORANGE FLAVOR] 1 packet PO BIDCM #60 packet Senna/Docusate Sodium [Senokot-S] 2 tab PO BID #120 tab Other Amb Orders: Prothrombin Time w/INR Time Frame: 1 Day, Location: Laboratory Primary Care Physician: Miya Goldman DO [Primary Care Provider] - Please follow up with your Primary Care Physician in: 1 week. Please Follow Up With: Miya Goldman DO When: at discharge Please Follow Up With: Clinic,Wound When: at discharge Disposition: Home with Home Health Minutes spent on discharge:: 35 Patient Condition:: Stable Medical Necessity - Tobacco Use Smoking Status: Never smoker Tobacco Use: Non-smoker Meaningful Use Info Meaningful Use Diagnoses (Choose all that apply): None applicable 08/10/172129 <Electronically signed by Marcel Moya MD> Date Marcel oMya MD Cosigner Signature (if applicable): Date CC: Miya oGldman DO; Marcel Moya MD Signed DISCHARGE INSTRUCTION Observed: 08/10/2017 Status: F Source: [place] 9:[address] [facility] REPOSITORY [facility] Medical Records Department [address] [place] [address] Instructions for Home/Discharge Instructions 08/10/172125 MR#: [id number] Acct: [id number] Name: GARDENIA MUJICA Rep #: [id number] : 1965 52 From: Marcel Moya MD PCP: Miya Goldman DO Status: ADM IN - Discharge Diagnoses Current Active Problems: Current Active and Chronic Problems (Last Reviewed 06/29/17 @ 13:24 by Shannon Mcneil) Fall (Acute) Cervical cancer (Chronic) GERD (gastroesophageal reflux disease) (Chronic) Anxiety (Chronic) Menopausal disorder (Chronic) You will use the following diet at home:: No restrictions, Regular Your food should be the consistency of: Regular Your liquids should be the consistency of: Regular/Thin Discharge Activity: Return to Normal Activity, May Shower, Use Walker Weight Bearing Status: Weight bearing as tolerated Call your doctor if you observe: Fever of 101 or Higher, Inability to urinate, Inability to have a bowel movement, Shortness of breath, Chest pain, Uncontrolled pain Allergies/Adverse Reactions: Allergies fluoxetine Allergy (Mild, Verified 07/27/17 09:41) Other head ache gabapentin Allergy (Mild, Verified 07/27/17 09:41) Abd cramps/diarrhea venlafaxine Allergy (Mild, Verified 07/27/17 09:41) Pain in joints tramadol Adverse Reaction (Verified 07/27/17 09:41) Nausea Medications to take at Discharge Lisinopril/Hydrochlorothiazide [Zestoretic 11/25.5 Tablet] 10 mg PO DAILY 08/26/16 alprazolam 0.25 mg tablet 0.25 mg PO BID-TID PRN 06/29/17 Estradiol 0.5 mg PO QDAY 07/27/17 Estradiol 1 g VAGINAL Q3D 07/27/17 Acetaminophen [Tylenol] 1,000 mg PO Q8H PRN tablet 08/10/17 Amitriptyline HCl [Elavil] 25 mg PO QHS #30 tab 08/10/17 Calcium Carbonate [Tums] 500 mg PO Q4H PRN PRN tablet 08/10/17 Nutritional Supplement [Tha - ORANGE FLAVOR] 1 packet PO BIDCM #60 packet 08/10/17 Oxycodone [Oxyir] 5 - 10 mg PO Q4H PRN PRN 7 Days #42 tab 08/10/17 Polyethylene Glycol 3350 [Miralax] 17 gm PO DAILY #30 packet 08/10/17 Senna/Docusate Sodium [Senokot-S] 2 tab PO BID #120 tab 08/10/17 Warfarin [Coumadin] 3 mg PO DAILY@1700 #30 tab 08/10/17 traMADol [Ultram] 50 mg PO Q6H PRN PRN #42 tab 08/10/17 The following prescriptions were given: Oxycodone [Oxyir] 5 - 10 mg PO Q4H PRN PRN 7 Days #42 tab PRN Reason: Severe Pain (6-10/10) traMADol [Ultram] 50 mg PO Q6H PRN PRN #42 tab PRN Reason: Moderate Pain (4-5/10) Amitriptyline HCl [Elavil] 25 mg PO QHS #30 tab Polyethylene Glycol 3350 [Miralax] 17 gm PO DAILY #30 packet Warfarin [Coumadin] 3 mg PO DAILY@1700 #30 tab Nutritional Supplement [Tha - ORANGE FLAVOR] 1 packet PO BIDCM #60 packet Senna/Docusate Sodium [Senokot-S] 2 tab PO BID #120 tab Orders to be completed after discharge: Prothrombin Time w/INR Time Frame: 1 Day, Location: Laboratory Primary Care Physician: Miya Goldman DO [Primary Care Provider] - Please follow up with your Primary Care Physician in: 1 week. Please Follow Up With: Miya Goldman DO When: at discharge Please Follow Up With: Clinic,Wound When: at discharge Proposed Discharge Date: 08/13/17 08/10/172127 <Electronically signed by Marcel Moya MD> Date Marcel Moya MD CC: Miya Goldman DO PROTHROMBIN TIME W/INR Collected: 08/08/2017 Status: F Source: [place] 5:[address] [facility] REPOSITORY TYPE CODE TESTS RESULT OUT OF REFERENCE UNITS RANGE LAB L300.4150 11.7-14.9 SECONDS High PROTIME 36.1 LAB L300.4200 High alert INR 3.6 Result Comment: CRITICAL VALUE VERIFIED. CALLED TO DEBBIE 08/08/17 0631 Mackenzie Granger. RESULTS READ BACK BY SAME . Performed By: #### L300.3900 #### [facility] [address] [place], [place], [address] PROTHROMBIN TIME W/INR Collected: 08/07/2017 Status: F Source: [place] 6:[address] [facility] REPOSITORY TYPE CODE TESTS RESULT OUT OF RANGE REFERENCE UNITS LAB L300.4150 11.7-14.9 SECONDS High PROTIME 33.3 LAB L300.4200 Normal INR 3.2 Performed By: #### L300.3900 #### [facility] [address] [place], [address] CBC W/DIFF, AUTOMATED Collected: 08/06/2017 Status: F Source: [place] 6:[address] [facility] REPOSITORY TYPE CODE TESTS RESULT OUT OF RANGE REFERENCE UNITS LAB L100.1000 4.4-11.0 K/mm3 Normal WBC 6.9 LAB L100.1200 4.2-5.4 M/mm3 Low RBC 3.42 LAB L100.1300 12.0-15.0 g/dl Low HGB 10.3 LAB L100.1400 37-47 % Low HCT 30.8 LAB L100.1500 81-99 fL Normal MCV 90.1 LAB L100.1600 27.0-32.0 pg Normal MCH 30.1 LAB L100.1700 32-36 g/gl Normal MCHC 33.4 LAB L100.1810 11.6-14.6 % Normal RDW CV 13.6 LAB L100.1820 35.1-43.9 fl Normal RDW SD 43.0 LAB L100.1900 150-450 K/mm3 Normal PLT 387 LAB L100.2000 6.2-12.0 fl Normal MPV 9.2 LAB L100.2100 47-70 % Normal NEUT% 60.2 LAB L100.2200 19-41 % Normal LY% 24.5 LAB L100.2300 0-10 % Normal MONO% 10.0 LAB L100.2400 0-5 % Normal EO% 3.9 LAB L100.2500 0-1 % Normal BASO% 0.4 LAB L100.2550 0.0-0.9 % High IM GRAN % 1.000 Result Comment: IG% - Immature Granulocytes (promyelocytes, myelocytes and metamyelocytes) > 1% indicates that a LEFT SHIFT is Present. LAB L100.2620 2.0-7.7 X10 3/uL Normal Absolute Neut 4.2 LAB L100.2720 0.83-4.51 X10 3/ul Normal Absolute Lymph 1.69 Performed By: #### L100.0100 #### [facility] [address] [facility] [place], [address] PROTHROMBIN TIME W/INR Collected: 08/06/2017 Status: F Source: [place] 6:[address] [facility] REPOSITORY TYPE CODE TESTS RESULT OUT OF REFERENCE UNITS RANGE LAB L300.4150 11.7-14.9 SECONDS High PROTIME 35.3 LAB L300.4200 High alert INR 3.5 Result Comment: CRITICAL VALUE VERIFIED. CALLED TO ARETHA HIGGINBOTHAM 08/06/17 0721 Nickie Rivera. RESULTS READ BACK BY SAME . Performed By: #### L300.3900 #### [facility] [address] [place], [address] BASIC METABOLIC Collected: 08/06/2017 Status: F Source: [place] PROFILE (BMP) 6:[address] [facility] REPOSITORY TYPE CODE TESTS RESULT OUT OF RANGE REFERENCE UNITS LAB L501.0100 74-106 mg/dL Normal GLU 95 Result Comment: Please note revised GLUCOSE reference range effective 2017. LAB L501.1000 7-18 mg/dL High BUN 20 LAB L501.1100 0.55-1.02 mg/dL Normal CREAT,SERUM 0.74 Result Comment: The validity of the calculated GFR AND GFRAA in patients over 70 years has not been determined. Clinical correlation is essential. LAB L501.1110 >60 mL/min Normal EST GFR 88 Result Comment: Non- GFR Calc LAB L501.1115 >60 mL/min Normal EST GFR - AA 106 Result Comment: GFR Calc LAB L501.1255 ml/min Normal Estimated CRCL 76.79 LAB L501.1300 10-20 RATIO High BUN/CRE 27.0 LAB L501.2200 8.5-10 mg/dL Normal .1 CA 9.0 LAB L501.5300 136-14 mmol/L Normal 5 NA 137 LAB L501.5600 3.5-5. mmol/L Normal 1 K 4.2 LAB L501.5900 98-107 mmol/L Normal CL 103 LAB L501.6100 21.0-3 mmol/L Normal 2.0 CO2 29.0 LAB L501.6200 5-15 Normal GAP 5 Performed By: #### L500.2500 #### [facility] [address] [place], [address] DISCHARGE SUMMARY Observed: 08/05/2017 Status: F Source: [place] 4:[address] [facility] REPOSITORY [facility] Medical Records Department [address] [place] [address] Discharge Summary 08/05/17 1106 MR#: [id number] Acct: [id number] Name: MUJICABRETMono Carrasco Rep #: [id number] : 1965 52 From: Nadya MEDRANO PCP: Miya Goldman DO Status: DIS IN Y Location: [place] [id number] ADDENDUM by Mejia Wheeler DO on 08/05/17 at 1637 Code Visit Inpatient E AND M: [id number] Disch Hosp 08/05/17 1637 <Electronically signed by Mejia Wheeler DO> Date Mejia Wheeler DO cc: MARCELA Blanchard; Miya Goldman DO; Mejia Wheeler DO * Signed Discharge Date and Diagnosis Date of Admission: 07/27/17 Date of Discharge: 08/05/17 - Primary Discharge Diagnosis 1. Acute traumatic left anterolateral thigh hematoma secondary to mechanical fall prior to admission 2. Acute blood loss anemia secondary to #1, requiring 1 unit packed red blood cells during admission 3. Status post mechanical aortic valve replacement due to bicuspid aortic valve on chronic anticoagulation with Coumadin 4. Hypertension 5. 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 Ten Valved conduit 05/28/09 Hyperlipidemia (Chronic) Hypertension (Chronic) Hospital Course and Treatment Consultations 08/02/17 10:46 Consult: Onc/Wound/property economist Routine Comment: Reason for Consult:: wound vac Operations: - - Incision and drainage 07/28/2017 of left anterolateral thigh hematoma secondary to mechanical fall prior to admission. Procedures: None Summary of Care Provided: Patient is a 52-year-old female admitted 07/27/2017 due to left thigh pain and swelling after mechanical fall prior to admission. She has a past medical history of hypertension, hyperlipidemia, history of aortic valve replacement with metallic valve on chronic anticoagulation with Coumadin. 1. Acute traumatic left anterolateral thigh hematoma secondary to mechanical fall prior to admission-status post incision and drainage 07/28/[address] Mccollum. Wound VAC in place. TCU at discharge. Continue PT/OT at TCU. Follow-up with wound center following discharge from TCU. 2. Acute blood loss anemia secondary to #1-status post 1 unit PRBC. Stable. 3. Status post mechanical aortic valve replacement due to bicuspid aortic valve on chronic anticoagulation with Coumadin-INR 3.5 at discharge. Home INR regimen increased to 6mg daily. Repeat INR daily X 1 week. 4. Hypertension-stable, continue home hydrochlorothiazide/lisinopril regimen. 5. Hyperlipidemia-lipid panel elevated May 2017. Not on statin. Recommend outpatient follow-up. General: Alert, Oriented x3, Cooperative HEENT: Atraumatic, PERRLA, EOMI, Normocephalic Neck: Supple, No JVD, Negative Carotid Bruits Lungs: Clear to auscultation, Normal air movement Cardiovascular: Regular rate, No murmurs Abdomen: Bowel Sounds Present, Soft, Non Tender, Non-Distended Extremities: No clubbing, No cyanosis, No edema, Capillary Refill Less than 3 Seconds Skin: No rashes, No breakdown, - - Left thigh wound with wound VAC intact. Musculoskeletal: No Tenderness to Palpation of Joints or Extremities Neurological: Cranial nerves II-XII grossly intact, Neuro grossly intact Psych/Mental Status: Normal Affect, Appropriate Patient seen and examined prior to discharge. Physical assessment as noted above. Patient is stable for discharge to TCU. This patient was seen by MARCELA Del Rio under the supervision of Dr. Wheeler. Home Medications: Medications to take at Discharge Lisinopril/Hydrochlorothiazide [Zestoretic /.5 Tablet] 10 mg PO DAILY 08/26/16 alprazolam 0.25 mg tablet 0.25 mg PO BID-TID PRN 06/29/17 Estradiol 0.5 mg PO QDAY 07/27/17 Estradiol 1 g VAGINAL Q3D 07/27/17 Amitriptyline HCl [Elavil] 25 mg PO QHS tablet 08/05/17 Oxycodone [Oxyir] 5 - 10 mg PO Q4H PRN PRN 7 Days tablet 08/05/17 Warfarin [Coumadin] 6 mg PO DAILY@1700 tablet 08/05/17 Primary Care Physician: Miya Goldman DO [Primary Care Provider] - Please follow up with your Primary Care Physician in: 1 Week Please Follow Up With: Wound Center When: Following DC from TCU Disposition: Jail facility Minutes spent on discharge:: 35 Patient Condition:: Stable Medical Necessity - Tobacco Use Smoking Status: Never smoker Meaningful Use Info Meaningful Use Diagnoses (Choose all that apply): None applicable 08/05/17 1117 <Electronically signed by Nadya MEDRANO> Date Nadya MEDRANO 08/05/17 1637<Electronically signed by Mejia Wheeler DO> Cosigner Signature (if applicable): Date Mejia Wheeler DO CC: MARCELA Blanchard; Miya Goldman DO; Mejia Wheeler DO Signed TRANSFER TO EXTENDED Observed: 08/05/2017 Status: F Source: [facility] 4:[address] [facility] REPOSITORY [facility] Medical Records Department [address] [place], [place] [address] [address] Transfer to Extended Care MR#: [id number] Acct: [id number] Name: GARDENIA MUJICA Rep #: [id number] : 1965 52 From: Nadya MEDRANO PCP: Miya Goldman DO Status: DIS IN GARDENIA MUJICA (Patient) (Health Ins. Claim No.) (Day of Discharge to Facility) Certification of patient admission REQUIRED AT TIME OF ADMISSION. I CERTIFY THAT POST-HOSPITAL ECF SERVICES ARE REQUIRED TO BE GIVEN ON AN IN-PATIENT BASIS BECAUSE OF THE ABOVE NAMED PATIENT'S NEED FOR LONG TERM CARE ON A CONTINUING BASIS FOR THE CONDITION(S) FOR WHICH HE/SHE WAS RECEIVING IN-PATIENT HOSPITAL SERVICES PRIOR TO HIS/HER TRANSFER TO THE ECF. Date: ADDENDUM by MARCELA Blanchard on 08/05/17 at 1113 Code Visit Discharge Dx: Acute traumatic left anterolateral thigh hematoma secondary to mechanical fall prior to admission Acute blood loss anemia secondary to #1-status post 1 unit PRBC. Status post mechanical aortic valve replacement due to bicuspid aortic valve on chronic anticoagulation with Coumadin Hypertension Hyperlipidemia Consult: Wound RN 08/05/17 1113 <Electronically signed by Nadya MEDRANO> Date Nadya Blanchard cc: Jose L Mccollum MD; Miya Goldman DO * Signed - Diet 07/28/17 10:07 Diet: Regular Diet Is pt able to select menu?: Yes - Routine Orders/Code Status Enema Type: Fleetz Enema Frequency: Daily PRN Suppository Type: Dulcolax 10mg Suppository Frequency: Daily PRN Routine Lab Work: INR, - - INR daily X 1 week - Wound(s) left thigh Wound Type: open surgical wound s/p excision hematoma Dressing Change: applied [facility] wound VAC - Suggestions for Active Care Change Position every (hours): 2 Times a day to sit in chair: 3 - Therapies Physical Therapy: Eval and Treat Occupational Therapy: Eval and Treat - Allergies/Procedures Done in Hospital Allergies/Adverse Reactions: Allergies fluoxetine Allergy (Mild, Verified 07/27/17 09:41) Other head ache gabapentin Allergy (Mild, Verified 07/27/17 09:41) Abd cramps/diarrhea venlafaxine Allergy (Mild, Verified 07/27/17 09:41) Pain in joints tramadol Adverse Reaction (Verified 07/27/17 09:41) Nausea Procedures: None - Type of Care/Length of Stay Estimated LOS: Convalescent Care Less Than 30 days Type of Care Needed: Skilled Rehab Potential: Good Prognosis: Good - Additional Orders/Day of Discharge H AND P will serve as current which was dated: 07/27/17 Day of Discharge: 08/05/17 - Dietary and Speech Recommendations Dietitian Recommendations/Changes: Continue regular diet and Tha BID - Follow Up Care Primary Care Physician: Miya Goldman DO [Primary Care Provider] - Please follow up with your Primary Care Physician in: 1 Week Please Follow Up With: Wound Center When: Following DC from [facility] 08/05/17 1106 <Electronically signed by Nadya MEDRANO> Date Nadya MEDRANO Cosigner Signature: Date CC: Jose L Mccollum MD; Miya Goldman DO HISTORY AND PHYSICAL Observed: 08/05/2017 Status: F Source: [place] EXAM 3:[address] [facility] REPOSITORY [facility] Medical Records Department [address] [place] [address] History and Physical 08/05/17 1454 MR#: [id number] Acct: [id number] Name: GARDENIA MUJICA Rep #: [id number] : 1965 52 From: Marcel Moya MD PCP: Miya Goldman DO Status: ADM IN [facility] Problem List (1) Fall Status: Acute (2) Cervical cancer Status: Chronic (3) GERD (gastroesophageal reflux disease) Status: Chronic (4) Anxiety Status: Chronic (5) Menopausal disorder Status: Chronic (6) Traumatic hematoma of left thigh Status: Acute Comment: traumatic intramuscular hematoma left anterolateral thigh (vastus lateralis muscle) (7) Thoracic aortic aneurysm Status: Chronic (8) Bicuspid aortic valve Status: Chronic (9) Hyperlipidemia Status: Chronic (10) Hypertension Status: Chronic History of Present Illness Date of Admission: 08/05/17 Chief Complaint: Here for rehabilitation, strengthening, wound care, prior to discharge home with spouse. The patient is a 52 year old Female with below past medical history presented to [facility] 07/27/2017 with fall, left thigh hematoma. 07/24/2017 X-ray left femur, intramedullary emilio throughout left femur. 07/24/2017 CT brain normal. 07/24/2017 CT left hip, left intramuscular hematoma inferior rectus femoris muscle. Anticoagulation on coumadin secondary to prosthetic aortic valve. Fell down 6 steps. WBC 8, Hemoglobin 10, Hematocrit 30, INR 1.8, coumadin already held by her family doctor. 07/27/2017 Admit to Hospital. Pain control. Consult Dr. Monique 07/28/2017 Dr. Mccollum performed left thigh incision, drainage, evacuation, excisional debridement traumatic, intramuscular hematoma. Wound VAC placed. 07/29/2017 Patient transfused 1 unit PRBC. Heparin drip, coumadin restarted. 08/05/2017 Admit to TCU for rehabilitation, strengthening, wound care, anticoagulation, pain control, prior to discharge home with spouse. Past Medical History Past Medical History (Chronic Problems): Chronic Problems (Last Reviewed 06/29/17 @ 13:24 by Shannon Mcneil) Cervical cancer (Chronic) GERD (gastroesophageal reflux disease) (Chronic) Anxiety (Chronic) Menopausal disorder (Chronic) [facility] current use of anticoagulant (Chronic) Thoracic aortic aneurysm (Chronic) History of aortic valve replacement with metallic valve (Chronic 05/28/09) 21mm St. Ten Valved conduit 05/28/09 Bicuspid aortic valve (Chronic) Hyperlipidemia (Chronic) Hypertension (Chronic) Medical History: Medical History (Last Reviewed 06/29/17 @ 13:24 by Shannon Mcneil) Thoracic aortic aneurysm (Chronic) I71.2 History of aortic valve replacement with metallic valve (Chronic) Onset Date: 05/28/[address] Ten Valved conduit 05/28/09 Nonrheumatic aortic (valve) insufficiency (Resolved) I35.1 Bicuspid aortic valve (Chronic) Q23.1 Hyperlipidemia (Chronic) E78.5 Hypertension (Chronic) I10 Abnormal Pap smear of cervix R87.619 History of malignant neoplasm of cervix Z85.41 GERD (gastroesophageal reflux disease) K21.9 Allergies fluoxetine Allergy (Mild, Verified 07/27/17 09:41) Other head ache gabapentin Allergy (Mild, Verified 07/27/17 09:41) Abd cramps/diarrhea venlafaxine Allergy (Mild, Verified 07/27/17 09:41) Pain in joints tramadol Adverse Reaction (Verified 07/27/17 09:41) Nausea Home Medications: Ambulatory Orders Medication Instructions Recorded Surgical History: Surgical History (Last Reviewed 06/29/17 @ 13:24 by Shannon Mcneil) Mechanical heart valve present Z95.2 femur surgery delivery delivered O82 History of thoracic aortic aneurysm repair Onset Date: 04/14/10 Z98.890, Z86.79 Hx of abdominal hysterectomy Z90.710 Hx of cholecystectomy Z90.49 S/P gastroplasty Z98.890 Status post aortic valve replacement Onset Date: 05/28/09 Z95.2 Surgical History: cholecystectomy, hysterectomy, - - Aortic valve replacement (mechanical). Gastroplasty for weight loss. Left femur fracture repair with hardware. Thoracic aortic aneurysm repair. . 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 Denies: Chills, Fever, Weight Change HEENT: Denies: Head Aches, Sinus Congestion, Sinus Drainage Cardiovascular: Denies: Chest Pain, Palpitations Respiratory: Denies: Cough, Shortness of breath at rest, Sputum production Gastrointestinal: Denies: Abdominal Pain, Nausea, Vomiting Genitourinary: Denies: Dysuria Musculoskeletal: Denies: Joint Pain, Joint Tenderness Skin: Denies: Rash, Wounds Neurological: Denies: Numbness, Tingling, Focal weakness Psychiatric: Denies: Anxiety, Depression, Homicidal Ideations, Suicidal Ideations Hematologic/ Lymphatic: Denies: Easy Bruising, Easy Bleeding VTE Information - Inpt Only VTE Present on Admission: No VTE Mechan Device Prophylaxis: Knee High TERRI Hose VTE Pharm Prophylaxis ordered?: No Reason prophylaxis not ordered:: Treatment Not Indicated Patient Problems: Active and Suspected Problems (Last Reviewed 06/29/17 @ 13:24 by Shannon Mcneli) Fall (Acute) - Physical Exam General: Alert, Oriented x3, Cooperative HEENT: Atraumatic, PERRLA, EOMI, Normocephalic Neck: Supple, No JVD, Negative Carotid Bruits Lungs: Clear to auscultation, Normal air movement Cardiovascular: Regular rate, No murmurs Abdomen: Bowel Sounds Present, Soft, Non Tender Extremities: No edema, Capillary Refill Less than 3 Seconds Skin: Ulcer/ Wound - Left lateral thigh wound, wound VAC in place, no sign of infection. Musculoskeletal: No Tenderness to Palpation of Joints or Extremities Neurological: Cranial nerves II-XII grossly intact Psych/Mental Status: Normal Affect, Appropriate Assessment/Plan All Active Problems (Last Reviewed 06/29/17 @ 13:24 by Shannon Mcneil) Fall (Acute) Open wound of left hip and thigh with complication (Acute) Traumatic hematoma of left thigh (Acute) Screen for colon cancer (Acute) Nonrheumatic aortic (valve) insufficiency (Resolved) 52 year old female with below past medical history hospitalized for left thigh hematoma, underwent incision, drainage, evacuation, excisional debridement with wound VAC placement per Dr. Mccollum 07/28/2017, admitted to TCU with debility, here for rehabilitation, strengthening, wound care, pain control, anticoagulation, prior to discharge home with spouse. * Debility - PT/OT. * Pain - Tylenol 1000MG Q8H PRN mild pain, Oxycodone 10MG Q4H PRN severe pain, Tramadol 50MG Q6H PRN moderate pain. * Bowel - Miralax 17GM daily, Senna/colace 2 tablets BID, Dulcolax 10MG PO daily PRN. * Pneumonia vaccination - Administer Prevnar 13 and/or Pneumovax 23 as necessary. * DVT prophylaxis - Not necessary, already therapeutic on warfarin. * Anxiety - Xanax 0.25MG PO Q6H PRN. * Insomnia - Elavil 25MG QHS. * Atrophic Vaginitis - Estradiol 1GM vaginal Q3 days. * Mechanical aortic valve - Warfarin 6MG daily, follow INR. 08/05/17 1524 <Electronically signed by Marcel Moya MD> Date Marcel Moya MD Cosigner Signature: Date (if applicable) CC: Miya Goldman DO; Marcel Moya MD Signed PROTIME W/INR Collected: 08/05/2017 Status: F Source: LUIGI FINGERSTICK 8:[address] [facility] REPOSITORY TYPE CODE TESTS RESULT OUT OF REFERENCE UNITS RANGE LAB L9200.1001 11.9-14.4 SEC High PROTIME ISTAT 39.6 Result Comment: Reference Range 11.9 - 14.4 LAB L9200.2000 Normal INR ISTAT 3.50 Result Comment: Critical Value > 3.5 Performed By: #### L9200.0000 #### [facility] Point of Care [address] [place] [address] BEDSIDE GLUCOSE Collected: 08/05/2017 Status: F Source: LUIGI 6:[address] [facility] REPOSITORY TYPE CODE TESTS RESULT OUT OF RANGE REFERENCE UNITS LAB L501.080 70-110 mg/dL Normal BEDSIDE GLU 82 Result Comment: MANAGEMENT OF PATIENT CARE PER NURSING PROTOCOL Performed By: #### L501.080 #### [facility] Point of Care [address] [place] [address] PROTHROMBIN TIME W/INR Collected: 08/04/2017 Status: F Source: LUIGI 5:[address] [facility] REPOSITORY TYPE CODE TESTS RESULT OUT OF RANGE REFERENCE UNITS LAB L300.4150 11.7-14.9 SECONDS High PROTIME 23.9 LAB L300.4200 Normal INR 2.1 Performed By: #### L300.3900 #### [facility] [facility] [address] PROTHROMBIN TIME W/INR Collected: 08/04/2017 Status: F Source: LUIGI 5:[address] [facility] REPOSITORY TYPE CODE TESTS RESULT OUT OF RANGE REFERENCE UNITS LAB L300.4150 11.7-14.9 SECONDS High PROTIME 21.4 LAB L300.4200 Normal INR 1.9 Performed By: #### L300.3900, L300.4310 #### [facility] [address] [place], [address] PARTIAL THROMBOPLAST Collected: 08/04/2017 Status: F Source: LUIGI TIME 5:[address] [facility] REPOSITORY TYPE CODE TESTS RESULT OUT OF REFERENCE UNITS RANGE LAB L300.4310 24.1-36.2 Seconds High PTT 78.3 Performed By: #### L300.3900, L300.4310 #### [facility] [address] [place], [place], [address] PROTHROMBIN TIME W/INR Collected: 08/03/2017 Status: F Source: LUIGI 5:[address] [facility] REPOSITORY TYPE CODE TESTS RESULT OUT OF RANGE REFERENCE UNITS LAB L300.4150 11.7-14.9 SECONDS High PROTIME 18.8 LAB L300.4200 Normal INR 1.6 Performed By: #### L300.3900 #### [facility] [address] [place], [place], [address] DOWNTIME REPORT Observed: 08/03/2017 Status: F Source: LUIGI 2:[address] [facility] REPOSITORY [facility] Medical Records Department [address] [place] [id number] Downtime Report MR#: [id number] Acct: [id number] Name: GISELA MUJICALEIGHTONMono Carrasco Rep #: [id number] : 1965 52 From: Lemuel Kurtz MD PCP: Miya Goldman DO Status: DEP This patient was seen during an EMR downtime July 18, 2017 - July 25, 2017. This patient may have a combination of paper and electronic documentation or all paper documentation. All documentation is viewable within the e-chart portion of [employer] for each patient visit. PROTHROMBIN TIME W/INR Collected: 08/03/2017 Status: F Source: LUIGI 5:[address] [facility] REPOSITORY TYPE CODE TESTS RESULT OUT OF RANGE REFERENCE UNITS LAB L300.4150 11.7-14.9 SECONDS High PROTIME 18.9 LAB L300.4200 Normal INR 1.6 Performed By: #### L300.3900, L300.4310 #### [facility] [address] [place], [place], [address] PARTIAL THROMBOPLAST Collected: 08/03/2017 Status: F Source: LUIGI TIME 5:[address] [facility] REPOSITORY TYPE CODE TESTS RESULT OUT OF REFERENCE UNITS RANGE LAB L300.4310 24.1-36.2 Seconds High PTT 73.4 Performed By: #### L300.3900, L300.4310 #### [facility] [address] [place], [place], [id number] PARTIAL THROMBOPLAST Collected: 08/02/2017 Status: F Source: LUIGI TIME 5:[address] [facility] REPOSITORY Order Comment: Comments: HEPARIN DRIP TYPE CODE TESTS RESULT OUT OF REFERENCE UNITS RANGE LAB L300.4310 24.1-36.2 Seconds High PTT 65.1 Performed By: #### L300.4310 #### [facility] [address] [place], [place], [id number] CBC-COMPLETE BLOOD CNT Collected: 08/01/2017 Status: F Source: LUIGI NO DIFF 5:[address] [facility] REPOSITORY Order Comment: Comments: on heparin drip TYPE CODE TESTS RESULT OUT OF RANGE REFERENCE UNITS LAB L100.1000 4.4-11.0 K/mm3 Normal WBC 7.3 LAB L100.1200 4.2-5.4 M/mm3 Low RBC 3.41 LAB L100.1300 12.0-15.0 g/dl Low HGB 10.0 LAB L100.1400 37-47 % Low HCT 30.4 LAB L100.1500 81-99 fL Normal MCV 89.1 LAB L100.1600 27.0-32.0 pg Normal MCH 29.3 LAB L100.1700 32-36 g/gl Normal MCHC 32.9 LAB L100.1810 11.6-14.6 % Normal RDW CV 14.0 LAB L100.1820 35.1-43.9 fl High RDW SD 45.3 LAB L100.1900 150-450 K/mm3 Normal PLT 266 LAB L100.2000 6.2-12.0 fl Normal MPV 8.9 Performed By: #### L100.0500 #### [facility] [address] [place], [place], [id number] PROTHROMBIN TIME W/INR Collected: 08/01/2017 Status: F Source: LUIGI 5:[address] [facility] REPOSITORY TYPE CODE TESTS RESULT OUT OF RANGE REFERENCE UNITS LAB L300.4150 11.7-14.9 SECONDS High PROTIME 17.7 LAB L300.4200 Normal INR 1.5 Performed By: #### L300.3900, L300.4310 #### [facility] [address] [facility] [place], [place], [id number] PARTIAL THROMBOPLAST Collected: 08/01/2017 Status: F Source: LUIGI TIME 5:[address] [facility] REPOSITORY TYPE CODE TESTS RESULT OUT OF REFERENCE UNITS RANGE LAB L300.4310 24.1-36.2 Seconds High PTT 66.3 Performed By: #### L300.3900, L300.4310 #### [facility] [address] [facility] [place], [address] CBC-COMPLETE BLOOD CNT Collected: 07/31/2017 Status: F Source: LUIGI NO DIFF 5:[address] [facility] REPOSITORY Order Comment: Comments: ON HEPARIN DRIP TYPE CODE TESTS RESULT OUT OF RANGE REFERENCE UNITS LAB L100.1000 4.4-11.0 K/mm3 Normal WBC 6.4 LAB L100.1200 4.2-5.4 M/mm3 Low RBC 3.33 LAB L100.1300 12.0-15.0 g/dl Low HGB 9.8 LAB L100.1400 37-47 % Low HCT 29.7 LAB L100.1500 81-99 fL Normal MCV 89.2 LAB L100.1600 27.0-32.0 pg Normal MCH 29.4 LAB L100.1700 32-36 g/gl Normal MCHC 33.0 LAB L100.1810 11.6-14.6 % Normal RDW CV 14.2 LAB L100.1820 35.1-43.9 fl High RDW SD 45.8 LAB L100.1900 150-450 K/mm3 Normal PLT 253 LAB L100.2000 6.2-12.0 fl Normal MPV 9.0 Performed By: #### L100.0500 #### [facility] [address] [facility] [place], [place], [id number] PROTHROMBIN TIME W/INR Collected: 07/31/2017 Status: F Source: LUIGI 5:[address] [facility] REPOSITORY TYPE CODE TESTS RESULT OUT OF RANGE REFERENCE UNITS LAB L300.4150 11.7-14.9 SECONDS High PROTIME 16.9 LAB L300.4200 Normal INR 1.4 Performed By: #### L300.3900, L300.4310 #### [facility] [address] [place], [place], [address] PARTIAL THROMBOPLAST Collected: 07/31/2017 Status: F Source: LUIGI TIME 5:[address] [facility] REPOSITORY TYPE CODE TESTS RESULT OUT OF REFERENCE UNITS RANGE LAB L300.4310 24.1-36.2 Seconds High PTT 57.0 Performed By: #### L300.3900, L300.4310 #### [facility] [address] [facility] [place], [place], [address] CBC-COMPLETE BLOOD CNT Collected: 07/30/2017 Status: F Source: LUIGI NO DIFF 5:[address] [facility] REPOSITORY TYPE CODE TESTS RESULT OUT OF RANGE REFERENCE UNITS LAB L100.1000 4.4-11.0 K/mm3 Normal WBC 7.1 LAB L100.1200 4.2-5.4 M/mm3 Low RBC 3.30 LAB L100.1300 12.0-15.0 g/dl Low HGB 9.9 LAB L100.1400 37-47 % Low HCT 29.5 LAB L100.1500 81-99 fL Normal MCV 89.4 LAB L100.1600 27.0-32.0 pg Normal MCH 30.0 LAB L100.1700 32-36 g/gl Normal MCHC 33.6 LAB L100.1810 11.6-14.6 % Normal RDW CV 14.6 LAB L100.1820 35.1-43.9 fl High RDW SD 46.9 LAB L100.1900 150-450 K/mm3 Normal PLT 236 LAB L100.2000 6.2-12.0 fl Normal MPV 9.2 Performed By: #### L100.0500 #### [facility] [address] [place], [place], [address] PROTHROMBIN TIME W/INR Collected: 07/30/2017 Status: F Source: LUIGI 5:[address] [facility] REPOSITORY TYPE CODE TESTS RESULT OUT OF RANGE REFERENCE UNITS LAB L300.4150 11.7-14.9 SECONDS High PROTIME 16.3 LAB L300.4200 Normal INR 1.3 Performed By: #### L300.3900, L300.4310 #### [facility] [address] [place], [address] PARTIAL THROMBOPLAST Collected: 07/30/2017 Status: F Source: [facility]IGI TIME 5:[address] [facility] REPOSITORY TYPE CODE TESTS RESULT OUT OF REFERENCE UNITS RANGE LAB L300.4310 24.1-36.2 Seconds High PTT 51.0 Performed By: #### L300.3900, L300.4310 #### [facility] [address] [facility] [address] [place], [address] CONSULTATION Observed: 07/30/2017 Status: F Source: LUIGI 12:[address] [facility] REPOSITORY [facility] Medical Records Department [address] [facility] [place] [address] Consultation 07/27/17 1840 MR#: [id number] Acct: [id number] Name: GARDENIA MUJICA Rep #: [id number] : 1965 52 From: Jose L Mccollum MD PCP: Miya Goldman DO Status: ADM IN Location: [place] [address]-1 Reason for Consult Date of Consultation: 07/27/17 Reason for Consultation: Traumatic hematoma left anterolateral thigh. REFERRING PHYSICIAN: Dr. Cox. SPIRITUAL ADVISOR: Dr. Mccollum. History of Present Illness: The patient is a 52 year old F who is on Coumadin for a mechanical heart valve was walking her dog and fell on the sidewal back on 07/24/17. She was seen in the ED and she underwent plain x-ray and a CT in which showed a hematoma. She was discharged home and recommended to follow-up with her primary care physician. When seen today, she complained of increasing pain and swelling in her left thigh and returned to the ED for further evaluation. She was admitted. She states she has been off her Coumadin for two days and her INR today was 1.8. Her WBC was 8.9. Her Hgb was 10.2. Back on 07/24/17, her Hgb was 11.9. She denies fever. I was asked to evaluate this patient for surgical options for treatment. , her left eye had become much more swollen tender and firm and she was referred back to the emergency room to get admitted for possible evacuation. 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 Ten Valved conduit 05/28/09 Hyperlipidemia (Chronic) Hypertension (Chronic) Medical History: Medical History (Last Reviewed 06/29/17 @ 13:24 by Shannon Mcneil) Thoracic aortic aneurysm (Resolved) I71.2 History of aortic valve replacement with metallic valve (Chronic) Onset Date: 05/28/[address] Ten Valved conduit 05/28/09 Nonrheumatic aortic (valve) insufficiency (Resolved) I35.1 Bicuspid aortic valve (Resolved) Q23.1 Hyperlipidemia (Chronic) E78.5 Hypertension (Chronic) I10 Abnormal Pap smear of cervix R87.619 History of malignant neoplasm of cervix Z85.41 GERD (gastroesophageal reflux disease) K21.9 Allergies fluoxetine Allergy (Mild, Verified 07/27/17 09:41) Other head ache gabapentin Allergy (Mild, Verified 07/27/17 09:41) Abd cramps/diarrhea venlafaxine Allergy (Mild, Verified 07/27/17 09:41) Pain in joints tramadol Adverse Reaction (Verified 07/27/17 09:41) Nausea Current Medications Alprazolam (Xanax) 0.25 mg PO TID PRN Estradiol (Estradiol) 0.5 mg PO DAILYCM PUJA Estradiol (Estrace Vaginal Cream) 1 gm VAGINAL Q3D PUJA Hydrochlorothiazide (Hydrochlorothiazide) 12.5 mg PO DAILY PUJA Hydromorphone HCl (Dilaudid Inj) 1 mg IV Q2H PRN Lisinopril (Zestril) 10 mg PO DAILY PUJA Magnesium Hydroxide (Milk Of Magnesia) 30 ml PO DAILY PRN Home Medications: Ambulatory Orders Medication Instructions Recorded Lisinopril/Hydrochlorothiazide 10 mg PO DAILY 08/26/16 [Zestoretic 11/25.5 Tablet] Surgical History: Surgical History (Last Reviewed 06/29/17 @ 13:24 by Shannon Mcneil) Mechanical heart valve present Z95.2 femur surgery delivery delivered O82 History of thoracic aortic aneurysm repair Onset Date: 05/28/09 Z98.890, Z86.79 Hx of abdominal hysterectomy Z90.710 Hx of cholecystectomy Z90.49 S/P gastroplasty Z98.890 Status post aortic valve replacement Onset Date: 05/28/09 Z95.2 Surgical History: cholecystectomy, hysterectomy, - - Aortic valve replacement (mechanical). Gastroplasty for weight loss. Left femur fracture repair with hardware. Thoracic aortic aneurysm repair. 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 Denies: Fever Eyes: Denies: Cataracts HEENT: Denies: Nasal Congestion, Sore Throat Cardiovascular: Denies: Chest Pain Respiratory: Denies: Cough, Shortness of Breath Gastrointestinal: Denies: Constipation, Diarrhea, Nausea, Vomiting Genitourinary: Denies: Frequency, Hematuria Musculoskeletal: Reports: Leg Pain - left thigh pain from hematoma.. Denies: Foot Pain, Hand Pain, Joint Pain, Neck Pain Skin: Denies: - - has some mild skin bruising in left anterolateral thigh where traumatic hematoma located. Neurological: Denies: Headaches, Numbness, Tingling Psychiatric: Denies: Anxiety, Depression Hematologic/ Lymphatic: Reports: Easy Bruising - on Coumadin for a mechanical heart valve., Easy Bleeding - on Coumadin for a mechanical heart valve.. Denies: Hx of blood clot Patient Problems: Active and Suspected Problems (Last Reviewed 06/29/17 @ 13:24 by Shannon Mcneil) Traumatic hematoma of left thigh (Acute) traumatic intramuscular hematoma left anterolateral thigh (vastus lateralis muscle) - Physical Exam General: Alert, Oriented x3 HEENT: PERRL. EOMI. Throat is clear. Oral: Moist Mucosa Neck: Supple nontender. No cervical adenopathy. Lungs: Clear to auscultation Cardiovascular: Regular rate, Normal S2 Abdomen: Soft, Non-Distended Musculoskeletal: Tenderness left anterolateral thigh. Traumatic hematoma. Overlying skin mildly bruised. No skin necrosis seen. Mild firmness noted laterally. Area of tenderness measures about 8 cm. Rest of the thigh is soft and nontender. No clinical evidence for compartment syndrome. CT shows hematoma superficially at level of the muscle laterally. No evidence of hematoma in the deeper tissue. Neurological: Cranial nerves II-XII grossly intact. No sensory deficits left leg. Psych/Mental Status: Normal Affect Vital Signs Temp Pulse Resp BP Pulse Ox 98.5 F 97 18 118/77 97 07/27/17 13:04 07/27/17 15:00 07/27/17 13:04 07/27/17 13:04 07/27/17 13:04 Oxygen Delivery Method Room Air Weight: 171 lb 1.259 oz Body Mass Index (BMI) 29.3 Laboratory Tests Past 24 Hrs Hgb 9.4 L Hct 27.6 L Assessment/Plan All Active Problems (Last Reviewed 06/29/17 @ 13:24 by Shannon Mcneil) Traumatic hematoma of left thigh (Acute) Screen for colon cancer (Acute) Thoracic aortic aneurysm (Resolved) Nonrheumatic aortic (valve) insufficiency (Resolved) Bicuspid aortic valve (Resolved) 1. Traumatic hematoma left anterolateral thigh. 2. 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 CT reviewed. CT shows hematoma superficially at level of the muscle laterally. No evidence of hematoma in the deeper tissue. Patient has painful traumatic hematoma left anterolateral thigh. She is off her Coumadin at present. Will bridge with Lovenox. Will begin Ancef to minimize secondary infection before surgical drainage. Recommend operative intervention for incision and drainage and evacuation of traumatic hematoma. Will leave the wound open and begin the VAC postop. Will send tissue to Microbiology for culture. A positive culture will necessitate antibiotic therapy. Anticipate increased metabolic demands. Will check a Prealbumin and encourage nutritional supplementation with protein to help the healing process. After discharge, will followup at the [facility]. If there is a plateau in the healing process, can proceed with delayed closure with skin grafting. Patient was informed of the risks and complications of the procedure including alternatives to surgery. These were discussed with her personally. She voices understanding and wishes to proceed. Will schedule the surgery for tomorrow. After surgery will resume Coumadin. Code Visit Inpatient E AND M: [id number] Init Hosp L2 - ICD-10 - S70.12xA, Z79.01 07/30/17 0035 <Electronically signed by Jose L Mccollum MD> Date Jose L Mccollum MD Cosigner Signature (if applicable): Date CC: Jose L Mccollum MD; Tor Cox MD; Miya Goldman DO; Mejia Moy DO; [facility] Signed PARTIAL THROMBOPLAST Collected: 07/29/2017 Status: F Source: [place] TIME 8:[address] [facility] REPOSITORY TYPE CODE TESTS RESULT OUT OF REFERENCE UNITS RANGE LAB L300.4310 24.1-36.2 Seconds High PTT 58.2 Performed By: #### L300.4310 #### [facility] [place], [address] CBC-COMPLETE BLOOD CNT Collected: 07/29/2017 Status: F Source: [place] NO DIFF 2:[address] [facility] REPOSITORY TYPE CODE TESTS RESULT OUT OF RANGE REFERENCE UNITS LAB L100.1000 4.4-11.0 K/mm3 High WBC 11.5 LAB L100.1200 4.2-5.4 M/mm3 Low RBC 3.34 LAB L100.1300 12.0-15.0 g/dl Low HGB 10.1 LAB L100.1400 37-47 % Low HCT 29.3 LAB L100.1500 81-99 fL Normal MCV 87.7 LAB L100.1600 27.0-32.0 pg Normal MCH 30.2 LAB L100.1700 32-36 g/gl Normal MCHC 34.5 LAB L100.1810 11.6-14.6 % Normal RDW CV 13.8 LAB L100.1820 35.1-43.9 fl Normal RDW SD 41.7 LAB L100.1900 150-450 K/mm3 Normal PLT 260 LAB L100.2000 6.2-12.0 fl Normal MPV 9.5 Performed By: #### L100.0500 #### [facility] [address]. [place], [place], [address] BASIC METABOLIC Collected: 07/29/2017 Status: F Source: [place] PROFILE (BMP) 2:[address] [facility] REPOSITORY TYPE CODE TESTS RESULT OUT OF RANGE REFERENCE UNITS LAB L501.0100 74-106 mg/dL High GLU 119 Result Comment: Fasting Glucose result from 100 to 125 mg/dL suggests IMPAIRED HOMEOSTASIS per A.D.A. criteria. Please note revised GLUCOSE reference range effective 2017. LAB L501.1000 7-18 mg/dL Normal BUN 16 LAB L501.1100 0.55-1.02 mg/dL Normal CREAT,SERUM 0.59 Result Comment: The validity of the calculated GFR AND GFRAA in patients over 70 years has not been determined. Clinical correlation is essential. LAB L501.1110 >60 mL/min Normal EST GFR 114 Result Comment: Non- GFR Calc LAB L501.1115 >60 mL/min Normal EST GFR - AA 138 Result Comment: GFR Calc LAB L501.1255 ml/min Normal Estimated CRCL 96.32 LAB L501.1300 10-20 RATIO High BUN/CRE 27.1 LAB L501.2200 8.5-10 mg/dL Normal .1 CA 8.6 LAB L501.5300 136-14 mmol/L Low 5 NA 135 LAB L501.5600 3.5-5. mmol/L Normal 1 K 3.9 LAB L501.5900 98-107 mmol/L Normal CL 100 LAB L501.6100 21.0-3 mmol/L Normal 2.0 CO2 30.0 LAB L501.6200 5-15 Normal GAP 5 Performed By: #### L500.2500 #### [facility] [address] [place], [place], [address] PARTIAL THROMBOPLAST Collected: 07/29/2017 Status: F Source: [place] TIME 2:[address] [facility] REPOSITORY TYPE CODE TESTS RESULT OUT OF REFERENCE UNITS RANGE LAB L300.4310 24.1-36.2 Seconds High PTT 68.3 Performed By: #### L300.4310 #### [facility] [address] [place], [place], [address] PROTHROMBIN TIME W/INR Collected: 07/29/2017 Status: F Source: [place] 2:[address] [facility] REPOSITORY TYPE CODE TESTS RESULT OUT OF RANGE REFERENCE UNITS LAB L300.4150 11.7-14.9 SECONDS High PROTIME 16.5 LAB L300.4200 Normal INR 1.3 Performed By: #### L300.3900 #### [facility] [address] [place], [address] PARTIAL THROMBOPLAST Collected: 07/28/2017 Status: F Source: [place] TIME 9:[address] [facility] REPOSITORY TYPE CODE TESTS RESULT OUT OF REFERENCE UNITS RANGE LAB L300.4310 24.1-36.2 Seconds High alert PTT 161.4 Result Comment: CRITICAL VALUE VERIFIED. CALLED TO HASEEB 07/28/17 Monae8 Elena Rothman. RESULTS READ BACK BY SAME . Performed By: #### L300.4310 #### [facility] [address] [place], [place], [address] PARTIAL THROMBOPLAST Collected: 07/28/2017 Status: F Source: [place] TIME 2:[address] [facility] REPOSITORY TYPE CODE TESTS RESULT OUT OF REFERENCE UNITS RANGE LAB L300.4310 24.1-36.2 Seconds High PTT 40.6 Performed By: #### L300.4310 #### [facility] [address] [place], [address] Observed: 07/28/2017 Status: F Source: [place] CULTURE, DEEP WOUND 10:[address] [facility] REPOSITORY Order Date: 09/15/16 Comments: LEFT ANTEROLATERAL INTRAMUSCLE HEMATOMA MUSCLE Gram Stain Gram Stain 1+ Red Blood Cells No White Blood Cells No organisms seen Wound Culture No growth aerobically. Cult, Anaerobic No growth in 5 days. Performed By: #### M100.1500 #### [facility] [address] [place], [address] Observed: 07/28/2017 Status: F Source: [place] SENA, SAVANNA W/ 10:[address] [facility] [id number] REPOSITORY Comments: LEFT ANTEROLATERAL INTRAMUSCLE HEMATOMA MUSCLE Is this test to exclude patient from TB Isolation? N Cu,[id number] TESTING PERFORMED AT [facility]. ORIGINAL REPORT ON FILE IN LAB CONTAINS ADDITIONAL TEST SITE INFORMATION. CUF No yeast or mold isolated after [address]136 TESTING PERFORMED AT [facility]. ORIGINAL REPORT ON FILE IN LAB CONTAINS ADDITIONAL TEST SITE INFORMATION. Fungus Stain No yeast or mold observed. Performed By: #### M600.1900 #### [facility] [address] [place], [address] THROMBUS Observed: 07/28/2017 Status: F Source: [place] 7:[address] [facility] REPOSITORY Patient: GARDENIA MUJICA : 1965 (52/F) Acct Num: [id number] Phys: Kenny GUERIN,[facility] Unit Num: [id number] Loc: U FCZ888-0 Specimen: [id number] Received: 07/28/17 - 1027 Spec Type: THROMBUS TISSUES TISSUES: BLOOD CLOT, NOS COMMENT A few skeletal muscle fibers are noted in the deeper portion of the specimen. GROSS DESCRIPTION Received in fixative is one container labeled with the patient's name and designated anterolateral intramuscular hematoma. The specimen consists of a piece of skin with underlying tissue measuring 15 x 3 cm and up to 3 cm in thickness. Also present in the container are two pieces of soft tissue measuring in aggregate 8 x 2 x 0.3 cm. Also present in the container are multiple blood clots measuring in aggregate 13 x 12 x 6 cm. The skin surface is unremarkable. Sections do not reveal any mass lesion. Residential Treatment Specialist sections are submitted in two cassettes. / SJ:dimitri 07/28/17 TC:5 CPT: 17516 HEADER OPERATION: Evacuation hematoma thigh PRE-OP DIAGNOSIS: Acute left thigh hematoma TISSUE SUBMITTED: Left anterolateral intramuscular hematoma tissue MICROSCOPIC DESCRIPTION Slides are reviewed. MICROSCOPIC DIAGNOSIS Left anterolateral intramuscular hematoma tissue: Skin with underlying adipose tissue and dense fibroconnective tissue with reactive changes, hemorrhage and blood clots, clinically intramuscular hematoma tissue. See comment. MIKE:dimitri 07/29/17 Signed Jasen Herron 07/29/17 <signature on file> Performed By: #### PTHRO #### [facility] [address] [place], [place], [address] PROTHROMBIN TIME W/INR Collected: 07/28/2017 Status: F Source: [place] 5:[address] [facility] REPOSITORY TYPE CODE TESTS RESULT OUT OF RANGE REFERENCE UNITS LAB L300.4150 11.7-14.9 SECONDS High PROTIME 19.2 LAB L300.4200 Normal INR 1.6 Performed By: #### L300.3900 #### [facility] [address] [place], [address] PREALBUMIN Collected: 07/28/2017 Status: F Source: [place] 5:[address] [facility] REPOSITORY TYPE CODE TESTS RESULT OUT OF REFERENCE UNITS RANGE LAB L506.0500 20.0-40.0 mg/dL Low PREALBUMIN 13.6 Performed By: #### L506.0500 #### [facility] [address] [place], [place], [address] CBC-COMPLETE BLOOD CNT Collected: 07/28/2017 Status: F Source: [place] NO DIFF 5:[address] [facility] REPOSITORY TYPE CODE TESTS RESULT OUT OF RANGE REFERENCE UNITS LAB L100.1000 4.4-11.0 K/mm3 Normal WBC 7.3 LAB L100.1200 4.2-5.4 M/mm3 Low RBC 2.80 LAB L100.1300 12.0-15.0 g/dl Low HGB 8.6 LAB L100.1400 37-47 % Low HCT 25.8 LAB L100.1500 81-99 fL Normal MCV 92.1 LAB L100.1600 27.0-32.0 pg Normal MCH 30.7 LAB L100.1700 32-36 g/gl Normal MCHC 33.3 LAB L100.1810 11.6-14.6 % Normal RDW CV 13.7 LAB L100.1820 35.1-43.9 fl High RDW SD 44.0 LAB L100.1900 150-450 K/mm3 Normal PLT 232 LAB L100.2000 6.2-12.0 fl Normal MPV 9.4 Performed By: #### L100.0500 #### [facility] [address] [place], [place], [address] HH, HEMOGLOBIN AND Collected: 07/27/2017 Status: F Source: [place] HEMATOCRIT 9:[address] [facility] REPOSITORY TYPE CODE TESTS RESULT OUT OF RANGE REFERENCE UNITS LAB L100.1300 12.0-15.0 g/dl Low HGB 8.8 LAB L100.1400 37-47 % Low HCT 26.2 Performed By: #### L100.0600 #### [facility] [address] [place], [place], [address] TYPE AND SCREEN Collected: 07/27/2017 Status: F Source: [place] 9:[address] [facility] REPOSITORY Order Comment: CMV NEG? N Number of units to transfuse: 2 Is there a >20% drop in pt's BP? Y Reason for Ordering Blood: Acute Are the blood/blood products to be transfused? N Is the patient having/had surgery? Y Give When? Type AND Hold Irradiated? N Leukodepleted? N Type of Surgery: FEM/POPLITEAL BYPASS TYPE CODE TESTS RESULT OUT OF RANGE REFERENCE UNITS LAB B10.0800 A Normal BLOOD TYPE GEL POSITIVE LAB B100.4000 Normal Antibody NEGATIVE Screen Performed By: #### B101.7450 #### [facility] [address] [facility] [place], [address] Collected: 07/27/2017 Status: F Source: [place] 9:[address] [facility] REPOSITORY TYPE CODE TESTS RESULT OUT OF REFERENCE UNITS RANGE LAB U100.0000 [id number] TRANSFUSED PRODUCT: T AND S with Crossmatch, Red Cells COUNT: 2 Performed By: #### U100.0000 #### [facility] - refer to report for specific site EMERGENCY DEPARTMENT Observed: 07/27/2017 Status: F Source: [place] SUMMARY 4:[address] [facility] REPOSITORY [facility] Medical Records Department [address] [place] [address] Emergency Department Summary 07/27/17 1004 MR#: [id number] Acct: [id number] Name: GARDENIA MUJICA Rep #: [id number] : 1965 52 From: Melvin Velasquez MD PCP: Miya Goldman DO Status: ADM IN - ER Visit Summary Date of Service: 07/27/17 Chief Complaint: Fall with left thigh hematoma History of Present Illness: The patient is a 52 F anticoagulated on Coumadin secondary to a prosthetic aortic valve. Reportedly the patient fell on and down approximately 6 steps on Tuesday. She was seen in the ER yesterday secondary to a left thigh hematoma. They did a plain x-ray and a CT in which they saw the hematoma. She followed up with her primary care physician Dr. Moy today her center by down the ER for evaluation of a possible evacuation of the hematoma. Physical Examination: Appearing middle-aged female. No acute distress. Vital signs are stable. Afebrile. She does not look septic or toxic. She is in no acute distress. HEENT exam is unremarkable atraumatic. There is no signs of trauma in her face or scalp. C-spine nontender. Lungs clear to auscultation bilaterally. Heart regular rhythm no murmur. Abdomen is soft and nontender. Chest wall is nontender. She is moving all 4 extremities. They are neurovascularly intact. Her left anterior lateral thigh has a large hematoma with bruising. There is no gross bony deformity. No hip or knee tenderness. Both lower extremities are neurovascularly intact. She has a palpable DP pulse she is able to wiggle her toes. She has normal cap refill and tight sensation in her left foot. Currently there is no signs of compartment syndrome. Back exam nontender. Neurologic exam unremarkable. Test Results: CBC shows a white count of 8 H AND H of 10.2 and 30. Her previous hemoglobin was 11.9. I suspect the anemia is from accumulation of hematoma in the left lateral thigh. INR is 1.8 she has been holding her Coumadin. Emergency Department Course and Treatment: I spoke with Dr. Mccollum and he will evaluate the patient in the hospital for possible hematoma evacuation after she is admitted by the hospitalist. I currently have him on page. Treatment Plan: Patient was treated with morphine and Zofran for pain. Disposition: Admission Impression: Acute Large left thigh hematoma status post fall Anticoagulated on Coumadin This note was generated with [employer] dictation software. It may contain incorrect words, spelling, and punctuation that were not noted in review of the chart prior to signing ED Disposition - Plan for ED Patient: Chief Complaint: Lower Extremity Injury Referrals: Miya Goldman, DO [Primary Care Provider] - What to do if you have Problems For any increased pain, shortness of breath, bleeding, nausea or vomiting, chest pain, or any unexpected problems, contact your Primary Care Provider. Call [facility] ([phone]) or report to the closest Emergency Room. Call 911 if necessary. 07/27/17 7260 <Electronically signed by Melvin Velasquez MD> Date Melvin Velasquez MD Cosigner Signature (If Indicated): Date CC: Miya Goldman DO HISTORY AND PHYSICAL Observed: 07/27/2017 Status: F Source: [place] EXAM 3:[address] [facility] REPOSITORY [facility] Medical Records Department [address] [place] [address] History and Physical 07/27/17 1344 MR#: [id number] Acct: [id number] Name: GARDENIA MUJICA Rep #: [id number] : 1965 52 From: Tor Cox MD PCP: Miya Goldman DO Status: ADM IN Location: [place] [address] Problem List (1) Thoracic aortic aneurysm Status: Resolved (2) History of aortic valve replacement with metallic valve Status: Chronic Comment: 21mm St. Ten Valved conduit 05/28/09 (3) Nonrheumatic aortic (valve) insufficiency Status: Resolved (4) Bicuspid aortic valve Status: Resolved (5) Hyperlipidemia Status: Chronic (6) Hypertension Status: Chronic History of Present Illness Date of Admission: 07/27/17 Chief Complaint: Left thigh pain and swelling after a fall The patient is a 52 year old F who is status post mechanical aortic valve replacement on Coumadin , essential hypertension and dyslipidemia who fell down approximately 6 steps about 3 days ago, she was seen in the emergency room and she underwent plain x-ray and a CT in which showed a hematoma. She was discharged home and recommended to follow-up with her primary care physician today , her left eye had become much more swollen tender and firm and she was referred back to the emergency room to get admitted for possible evacuation. Dr. Mccollum was consulted from the emergency room. INR today is 1.8 , it was 3.5 when she came to the Ed 3 days ago and her hemoglobin is 10.2 today. The patient reports significant left thigh pain, she denies any shortness of breath, chest pain, palpitations or rapid heartbeat or dizziness. Past Medical History Past Medical History (Chronic Problems): Chronic Problems (Last Reviewed 06/29/17 @ 13:24 by Shannon Mcneil) History of aortic valve replacement with metallic valve (Chronic 05/28/09) 21mm St. Ten Valved conduit 05/28/09 Hyperlipidemia (Chronic) Hypertension (Chronic) Medical History: Medical History (Last Reviewed 06/29/17 @ 13:24 by Shannon Mcneil) Thoracic aortic aneurysm (Resolved) I71.2 History of aortic valve replacement with metallic valve (Chronic) Onset Date: 05/28/[address] Ten Valved conduit 05/28/09 Nonrheumatic aortic (valve) insufficiency (Resolved) I35.1 Bicuspid aortic valve (Resolved) Q23.1 Hyperlipidemia (Chronic) E78.5 Hypertension (Chronic) I10 Abnormal Pap smear of cervix R87.619 History of malignant neoplasm of cervix Z85.41 GERD (gastroesophageal reflux disease) K21.9 Allergies fluoxetine Allergy (Mild, Verified 07/27/17 09:41) Other head ache gabapentin Allergy (Mild, Verified 07/27/17 09:41) Abd cramps/diarrhea venlafaxine Allergy (Mild, Verified 07/27/17 09:41) Pain in joints tramadol Adverse Reaction (Verified 07/27/17 09:41) Nausea Home Medications: Ambulatory Orders Medication Instructions Recorded Lisinopril/Hydrochlorothiazide 10 mg PO DAILY 08/26/16 [Zestoretic 10/12.5 Tablet] Surgical History: Surgical History (Last Reviewed 06/29/17 @ 13:24 by Shannon Mcneil) Mechanical heart valve present Z95.2 femur surgery delivery delivered O82 History of thoracic aortic aneurysm repair Onset Date: 05/28/09 Z98.890, Z86.79 Hx of abdominal hysterectomy Z90.710 Hx of cholecystectomy Z90.49 S/P gastroplasty Z98.890 Status post aortic valve replacement Onset Date: 05/28/09 Z95.2 Surgical History: hysterectomy, - - Aortic valve replacement Psychiatric History: No pertinent psych hx 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 VTE Information - Inpt Only VTE Present on Admission: No VTE Mechan Device Prophylaxis: SCD's VTE Pharm Prophylaxis ordered?: No Reason prophylaxis not ordered:: Medical Contraindication - Left thigh hematoma from coagulopathy - Physical Exam General: Alert, Oriented x3 HEENT: Atraumatic Oral: Moist Mucosa Neck: Supple Lungs: Clear to auscultation Cardiovascular: Regular rate, Normal S2 Abdomen: Bowel Sounds Present, Soft, Non Tender, Non-Distended Musculoskeletal: Tenderness Neurological: Cranial nerves II-XII grossly intact, Deep Tendon Reflexes 2+/4 and Symmetrical, Neuro grossly intact, Motor Exam 5/5 strength throughout Psych/Mental Status: Normal Affect Vital Signs Temp Pulse Resp BP Pulse Ox 98.5 F 101 H 18 118/77 97 07/27/17 13:04 07/27/17 13:04 07/27/17 13:04 07/27/17 13:04 07/27/17 13:04 Oxygen Delivery Method Room Air Weight: 77.6 kg Body Mass Index (BMI) 29.3 Assessment/Plan All Active Problems (Last Reviewed 06/29/17 @ 13:24 by Shannon Mcneil) Screen for colon cancer (Acute) Thoracic aortic aneurysm (Resolved) Nonrheumatic aortic (valve) insufficiency (Resolved) Bicuspid aortic valve (Resolved) 1. Acute Left thigh hematoma following a fall in the setting of Coumadin coagulopathy; we would optimize pain control, we will monitor patient closely for signs of compartment syndrome, Dr. Mccollum has been consulted for possible hematoma evacuation. 2. Acute blood loss anemia; will check serial H AND H and transfuse if need be. 3. status post mechanical aortic valve replacement due to bicuspid aortic valve; Coumadin is now on hold, once hematoma is evacuated and hemostasis achieved ,we will restart anticoagulation with heparin and transition slowly back to Coumadin. 4. Essential hypertension; we will continue her lisinopril/ hydrochlorothiazide. 5. DVT prophylaxis with SCDs. Code Visit Inpatient E AND M: 50722 Init Hosp L3 07/27/17 1270 <Electronically signed by Tor Cox MD> Date Kombian Gbaruk MD Cosigner Signature: Date (if applicable) CC: Tor Cox MD; Miya Goldman DO Signed HH, HEMOGLOBIN AND Collected: 07/27/2017 Status: F Source: [place] HEMATOCRIT 2:[address] [facility] REPOSITORY TYPE CODE TESTS RESULT OUT OF RANGE REFERENCE UNITS LAB L100.1300 12.0-15.0 g/dl Low HGB 9.4 LAB L100.1400 37-47 % Low HCT 27.6 Performed By: #### L100.0600 #### [facility] [address] [facility] [place], [address] CBC-COMPLETE BLOOD CNT Collected: 07/27/2017 Status: F Source: [place] NO DIFF 10:[address] [facility] REPOSITORY TYPE CODE TESTS RESULT OUT OF RANGE REFERENCE UNITS LAB L100.1000 4.4-11.0 K/mm3 Normal WBC 8.9 LAB L100.1200 4.2-5.4 M/mm3 Low RBC 3.43 LAB L100.1300 12.0-15.0 g/dl Low HGB 10.2 LAB L100.1400 37-47 % Low HCT 30.5 LAB L100.1500 81-99 fL Normal MCV 88.9 LAB L100.1600 27.0-32.0 pg Normal MCH 29.7 LAB L100.1700 32-36 g/gl Normal MCHC 33.4 LAB L100.1810 11.6-14.6 % Normal RDW CV 13.9 LAB L100.1820 35.1-43.9 fl High RDW SD 45.1 LAB L100.1900 150-450 K/mm3 Normal PLT 217 LAB L100.2000 6.2-12.0 fl Normal MPV 9.0 Performed By: #### L100.0500 #### [facility] [address] [place], [place], [address] PROTHROMBIN TIME W/INR Collected: 07/27/2017 Status: F Source: [place] 10:[address] [facility] REPOSITORY TYPE CODE TESTS RESULT OUT OF RANGE REFERENCE UNITS LAB L300.4150 11.7-14.9 SECONDS High PROTIME 20.8 LAB L300.4200 Normal INR 1.8 Performed By: #### L300.3900 #### [facility] [address] [place], [address] FEMUR MIN 2 VIEWS Observed: 07/25/2017 Status: F Source: [place] 4:[address] [facility] REPOSITORY [facility] Imaging Services [address] [place] [address] Femur Min 2 Views MR#: [id number] Acct: [id number] Name: GARDENIA MUJICA Rep #: [id number] : 1965 F 52 From: Peter Loyola MD PCP: Miya Goldman DO Status: REG ER Study: Femur Min 2 Views Date of Exam: 07/24/17 Exam# [id number] Ordering Dr: Christophe Shrestha MD STUDY: X-RAY - LEFT FEMUR REASON FOR STUDY: Female, 52 years old. Trauma TECHNIQUE: Radiological exam, femur, minimum 2 views COMPARISON: None. FINDINGS: An intramedullary emilio is seen throughout the length of left femoral shaft which stabilized a healed fracture of the mid left femoral shaft. There is no evidence of acute fracture or dislocation. RAD/Femur Min 2 Views IMPRESSION: Intramedullary emilio seen throughout the length of left femur. There is no evidence of acute fracture or dislocation. Electronically Signed: Peter Loyola MD at 19:32 EDT , Service support , CC: Miya Goldman DO; Christophe Shrestha MD Decal Decorator: Signed EXTREMITY LOWER Observed: 07/25/2017 Status: F Source: [place] WITHOUT CONTRA 11:[address] [facility] REPOSITORY [facility] Imaging Services [address] [place] [address] Extremity Lower without Contra MR#: [id number] Acct: [id number] Name: GARDENIA MUJICA Rep #: [id number] : 1965 F 52 From: Tor Estrada MD PCP: Miya Goldman DO Status: REG ER Study: Extremity Lower without Contra Date of Exam: 07/24/17 Exam# [id number] Ordering Dr: Christophe Shrestha MD STUDY: CT BRAIN WITHOUT CONTRAST REASON FOR EXAM: Female, 52 years old. FALL, PT ON COUMADIN FOR MECHANICAL HEART VALVE RADIATION DOSAGE (If Supplied By Facility): CTDIvol = ( 44.99 ) mGy, DLP = ( 796.11 ) mGycm TECHNIQUE: Transaxial CT imaging of the brain was performed without administration of intravenous contrast material. Individualized dose optimization techniques were used for this CT. COMPARISON: None. FINDINGS: Normal soft tissue structures. Normal calvarium. Normal size ventricles and extra-axial spaces for the patient's age. Normal white matter tracts of the cerebral hemispheres. Normal basal ganglia and thalami. Normal brainstem. Normal cerebellum. There is no intracranial hemorrhage. There are no findings of an acute ischemic infarction. Normal visualized paranasal sinuses. CT/Extremity Lower without Contra IMPRESSION: Normal unenhanced CT scan of the brain. Electronically Signed: Tor Estrada MD at 19:58 EDT , Service support , EXAM: CT OF THE LEFT HIP REASON FOR EXAM: Female, 52 years old. FALL, PT ON COUMADIN FOR MECHANICAL HEART VALVE COMPARISON: None. TECHNIQUE: Multiple axial, sagittal, and coronal computed tomographic images were obtained of the hip. IV contrast was not utilized. FINDINGS: Within the rectus femoris is a heterogeneous area of low central density measuring 39 x 50 x 36 mm. This has a peripheral irregular border. There is no fracture. There is no dislocation. There is anatomic alignment. The sacro iliac joint is unremarkable. Femoral head is noted in the acetabulum. The uterus is not visualized and is most likely surgically absent. Femoral intramedullary emilio in place. There is no fracture. Healed mid femoral fracture noted. IMPRESSION: There is the appearance of an intramuscular hematoma of the rectus femoris muscle. Electronically Signed: Tor Estrada MD at 22:09 EDT , Service support , CC: Miya Goldman DO; Christophe Shrestha MD Decal Decorator: Signed BRAIN/HEAD WITHOUT Observed: 07/25/2017 Status: F Source: [place] CONTRAST 11:[address] [facility] REPOSITORY [facility] Imaging Services [address] [place] [address] Brain/Head without Contrast MR#: [id number] Acct: [id number] Name: MUJICABRETMono Carrasco Rep #: [id number] : 1965 F 52 From: Tor Estrada MD PCP: Miya Goldman DO Status: REG ER Study: Brain/Head without Contrast Date of Exam: 07/24/17 Exam# [id number] Ordering Dr: Christophe Shrestha MD STUDY: CT BRAIN WITHOUT CONTRAST REASON FOR EXAM: Female, 52 years old. FALL, PT ON COUMADIN FOR MECHANICAL HEART VALVE RADIATION DOSAGE (If Supplied By Facility): CTDIvol = ( 44.99 ) mGy, DLP = ( 796.11 ) mGycm TECHNIQUE: Transaxial CT imaging of the brain was performed without administration of intravenous contrast material. Individualized dose optimization techniques were used for this CT. COMPARISON: None. FINDINGS: Normal soft tissue structures. Normal calvarium. Normal size ventricles and extra-axial spaces for the patient's age. Normal white matter tracts of the cerebral hemispheres. Normal basal ganglia and thalami. Normal brainstem. Normal cerebellum. There is no intracranial hemorrhage. There are no findings of an acute ischemic infarction. Normal visualized paranasal sinuses. CT/Brain/Head without Contrast IMPRESSION: Normal unenhanced CT scan of the brain. Electronically Signed: Tor Estrada MD at 19:58 EDT , Service support , EXAM: CT OF THE LEFT HIP REASON FOR EXAM: Female, 52 years old. FALL, PT ON COUMADIN FOR MECHANICAL HEART VALVE COMPARISON: None. TECHNIQUE: Multiple axial, sagittal, and coronal computed tomographic images were obtained of the hip. IV contrast was not utilized. FINDINGS: Within the rectus femoris is a heterogeneous area of low central density measuring 39 x 50 x 36 mm. This has a peripheral irregular border. There is no fracture. There is no dislocation. There is anatomic alignment. The sacro iliac joint is unremarkable. Femoral head is noted in the acetabulum. The uterus is not visualized and is most likely surgically absent. Femoral intramedullary emilio in place. There is no fracture. Healed mid femoral fracture noted. IMPRESSION: There is the appearance of an intramuscular hematoma of the rectus femoris muscle. Electronically Signed: Tor Estrada MD at 22:09 EDT , Service support , CC: Miya Goldman DO; Christophe Shrestha MD Decal Decorator: Signed BASIC METABOLIC Collected: 07/24/2017 Status: F Source: [place] PROFILE (BMP) 8:[address] [facility] REPOSITORY Order Comment: RESULT(S) PREVIOUSLY REPORTED ON MANUAL REQUISITION DURING DOWNTIME. TYPE CODE TESTS RESULT OUT OF RANGE REFERENCE UNITS LAB L501.0100 74-106 mg/dL Normal GLU 93 Result Comment: Please note revised GLUCOSE reference range effective 2017. LAB L501.1000 7-18 mg/dL High BUN 25 LAB L501.1100 0.55-1.02 mg/dL Normal CREAT,SERUM 0.86 Result Comment: The validity of the calculated GFR AND GFRAA in patients over 70 years has not been determined. Clinical correlation is essential. LAB L501.1110 >60 mL/min Normal EST GFR 74 LAB L501.1115 >60 mL/min Normal EST GFR - AA 90 LAB L501.1300 10-20 RATIO High BUN/CRE 29.1 LAB L501.2200 8.5-10.1 mg/dL Normal CA 8.8 LAB L501.5300 136-145 mmol/L Normal NA 138 LAB L501.5600 3.5-5.1 mmol/L Normal K 3.7 LAB L501.5900 98-107 mmol/L Normal CL 102 LAB L501.6100 21.0-32.0 mmol/L Normal CO2 30.0 LAB L501.6200 5-15 Normal GAP 6 Performed By: #### L500.2500 #### [facility] [address] [facility]. [place], [place], [address] PROTHROMBIN TIME W/INR Collected: 07/24/2017 Status: F Source: [place] 5:[address] [facility] REPOSITORY Order Comment: RESULT(S) PREVIOUSLY REPORTED ON MANUAL REQUISITION DURING DOWNTIME. TYPE CODE TESTS RESULT OUT OF REFERENCE UNITS RANGE LAB L300.4150 11.7-14.9 SECONDS High PROTIME 35.3 LAB L300.4200 High alert INR 3.5 Result Comment: CRITICAL VALUE VERIFIED. CALLED TO KYE COFFMAN 07/24/17 2162 OXANAIEL RESULTS READ BACK BY . Performed By: #### L300.3900 #### [facility] [address] [facility]. [place], [place], [address] CBC-COMPLETE BLOOD CNT Collected: 07/24/2017 Status: F Source: [place] NO DIFF 12:[address] [facility] REPOSITORY Order Comment: RESULT(S) PREVIOUSLY REPORTED ON MANUAL REQUISITION DURING DOWNTIME. TYPE CODE TESTS RESULT OUT OF RANGE REFERENCE UNITS LAB L100.1000 4.4-11.0 K/mm3 Normal WBC 11.0 LAB L100.1200 4.2-5.4 M/mm3 Low RBC 3.98 LAB L100.1300 12.0-15.0 g/dl Low HGB 11.9 LAB L100.1400 37-47 % Low HCT 34.3 LAB L100.1500 81-99 fL Normal MCV 86.2 LAB L100.1600 27.0-32.0 pg Normal MCH 29.9 LAB L100.1700 32-36 g/gl Normal MCHC 34.7 LAB L100.1810 11.6-14.6 % Normal RDW CV 13.6 LAB L100.1820 35.1-43.9 fl Normal RDW SD 43.3 LAB L100.1900 150-450 K/mm3 Normal PLT 240 LAB L100.2000 6.2-12.0 fl Normal MPV 9.2 Performed By: #### L100.0500 #### [facility] [address] [facility], [address] PROTHROMBIN TIME W/INR Collected: 07/13/2017 Status: F Source: [place] 7:[address] [facility] REPOSITORY TYPE CODE TESTS RESULT OUT OF RANGE REFERENCE UNITS LAB L300.4150 11.7-14.9 SECONDS High PROTIME 29.2 LAB L300.4200 Normal INR 2.7 Performed By: #### L300.3900 #### [facility] [address] [place], [address] OPERATIVE REPORT Observed: 07/05/2017 Status: F Source: [place] 9:[address] [facility] REPOSITORY [facility] Medical Records Department [address] [place] [address] Operative Report 07/05/17 0927 MR#: [id number] Acct: [id number] Name: GARDENIA MUJICA Rep #: [id number] : 1965 52 From: Ernesto Carlin MD PCP: Miya Goldman DO Status: [facility] Location: [place] [address] Problem List (1) Screen for colon cancer Status: Acute Report of Operation Date of Procedure: 07/05/17 Pre-Operative Diagnosis: Screening colon cancer Post-Operative Diagnosis: Normal colonoscopy Surgery/Procedure Performed:: Colonoscopy Specimen's removed: None Description of Procedure: The major risks and benefits associated with the procedure were explained to the patient in detail. The patient verbalized understanding and agreement with the same. The patient was brought to the endoscopy suite. After adequate sedation was achieved, the patient was placed in the left lateral decubitus position and a digital rectal exam was performed. This examination was within normal limits. A well- lubricated colonoscope was then inserted into the rectum and advanced under direct visualization to the level of the cecum. The bowel prep was good. The cecum was identified by both visual and anatomic landmarks. A photograph was taken of the end of the cecum. The scope was then fully withdrawn while examining the color, texture, anatomy and integrity of the mucosa from the cecum to the anal canal. The findings were consistent with normal colonic mucosa. Over 6 minutes were taken to examine the colonic mucosa. Upon reaching the rectum the scope was retroflexed to examine the distal rectal vault. The scope was then straightened and was completely retrieved upon exiting the anal canal and the procedure was terminated. The patient was then transferred to the recovery room in stable condition. Recommendations for follow up: 10 years 07/05/17 0928 <Electronically signed by Ernseto Carlin MD> Date Ernesto Carlin MD CC: Ernesto Carlin MD; Miya Goldman DO Signed PROTHROMBIN TIME W/INR Collected: 07/05/2017 Status: F Source: [place] 8:[address] [facility] REPOSITORY TYPE CODE TESTS RESULT OUT OF RANGE REFERENCE UNITS LAB L300.4150 11.7-14.9 SECONDS High PROTIME 23.7 LAB L300.4200 Normal INR 2.1 Performed By: #### L300.3900 #### [facility] [address] [place] [address], [address] PROTIME W/INR Collected: 07/05/2017 Status: F Source: [place] 8:[address] [facility] REPOSITORY TYPE CODE TESTS RESULT OUT OF REFERENCE UNITS RANGE LAB L9200.1001 11.9-14.4 SEC High PROTIME ISTAT 21.5 Result Comment: Reference Range 11.9 - 14.4 LAB L9200.2000 Normal INR ISTAT 1.80 Result Comment: Critical Value > 3.5 Performed By: #### L9200.0000 #### [facility] Point of Care [address] [facility] [place], [place] [address] SURGERY VISIT REPORT Observed: 06/29/2017 Status: F Source: [place] 1:[address] [facility] REPOSITORY [facility] [address] [place], [place] [address] OFFICE VISIT Date of Service: 06/29/17 MR#: [id number] Acct: [id number] Name: GARDENIA MUJICA Rep #: [id number] : 1965 Provider: Ernesto Carlin MD Age/Sex: 52/F Location: [facility] Status: Signed Intake Vital Signs06/29/17 Height 5 ft 4 in 06/29/17 Weight: 172 lb 06/29/17 Body Mass Index (BMI) 29.5 Intake Visit Reasons: Schedule Cscope Chief Complaint: NEW annual Sole Cementer Required: No Is patient in pain?: No Allergies fluoxetine Allergy (Mild, Verified 06/29/17 13:29) Other gabapentin Allergy (Mild, Verified 06/29/17 13:29) Abd cramps/diarrhea venlafaxine Allergy (Mild, Verified 06/29/17 13:29) Pain in joints tramadol Adverse Reaction (Verified 06/29/17 13:29) Nausea Medications Lisinopril/Hydrochlorothiazide [Zestoretic 11/25.5 Tablet] 10 mg PO DAILY 08/26/16 [History Confirmed 06/29/17] estradiol 0.01% (0.1 mg/gram) vaginal cream 1 g VAGINAL .COMPLEX #42.5 g 06/27/17 [Rx Confirmed 06/29/17] estradiol 0.5 mg tablet 0.5 mg PO QDAY #30 tab 06/28/17 [Rx Confirmed 06/29/17] alprazolam 0.25 mg tablet 0.25 mg PO BID-TID PRN 06/29/17 [History Confirmed 06/29/17] warfarin 5 mg tablet 5 mg PO DAILY tab 06/29/17 [History Confirmed 06/29/17] [facility] Medical History Thoracic aortic aneurysm (Resolved) History of aortic valve replacement with metallic valve (Chronic 05/28/09) Nonrheumatic aortic (valve) insufficiency (Acute) Bicuspid aortic valve (Acute) Hyperlipidemia (Chronic) Hypertension (Chronic) Abnormal Pap smear of cervix (Acute) History of malignant neoplasm of cervix (Acute) GERD (gastroesophageal reflux disease) (Chronic) Surgical History Mechanical heart valve present (Acute) femur surgery (Acute) delivery delivered (Resolved) History of thoracic aortic aneurysm repair (Resolved 05/28/09) Hx of abdominal hysterectomy (Resolved) Hx of cholecystectomy (Resolved) S/P gastroplasty (Resolved) Status post aortic valve replacement (Resolved 05/28/09) Family History Grandmother Heart disease Mother Heart disease Social History Smoking Status: Never smoker alcohol intake: never substance use type: does not use caffeine: Yes frequency: daily seatbelt use: always do you feel safe at home: Yes additional social history: Claudia Ramirez Daily Patient works at [employer] HPI HPI HPI: GARDENIA MUJICA, is a 52 F who presents to the office today for screening colonoscopy. The patient reports she is having no issues. She has no blood in her stool or abdominal pain. She has no family history of colon cancer. She does have a history of heart valve surgery and is on Coumadin. ROS General General: Yes fatigue Cardio Cardiovascular: No murmur, pacemaker, heart disease, atrial fibrillation, high blood pressure, heart attack, heart stent, palpitations, shortness of breat with exertion or chest pain Additional Details: Patient does have a history of heart valve replacement. Psych Psychiatric: Yes anxiety; no depression Resp Respiratory: No shortness of breath, No sleep apnea, No cough, No COPD, No asthma, No emphysema, No wheezing Gastro Gastrointestinal: No abdominal pain, No nausea or vomiting, No diarrhea, No constipation, No blood in stool, No acid reflux, Yes hemorrhoids, No ulcers, No gallbladder problem, No black,tarry stools Edson Hematologic: Yes blood thinners Exam Const General: cooperative Orientation: alert, oriented x3 Resp Effort AND Inspection: normal respiratory effort Auscultation: clear to auscultation bilaterally Cardio Rate: regular rate Rhythm: regular rhythm Heart Sounds: no murmurs GI Inspection: normal to inspection, non-distended Palpation: soft, nontender Assessment AND Plan Problems 1. History of aortic valve replacement with metallic valve Z95.[address] [facility] Valved conduit 05/28/09 2. Screen for colon cancer Z12.11 Plan 1. The patient is here for screening colonoscopy and has no further issues. She is on Coumadin for mechanical heart valve. I do recommend proceeding with colonoscopy on Coumadin. I discussed this with the patient. She would be at high risk for bleeding but usually a colonoscopy is a low risk procedure and if there is bleeding she could be admitted and the bleeding could be stopped. This would make it much more convenient for her not to have to be bridged. I explained that any polyps would be removed with cautery snare and if there is anything very large encountered that would require forceps biopsies that I would not do that and I would have to bring her back for another procedure. She agrees to this. 2. I explained endoscopy in detail to the patient. I explained the risks including but not limited to stroke or heart attack with anesthesia, perforation of the GI tract, bleeding, infection. I explained that any of these could necessitate further emergency surgery. The patient understands and all questions were answered sufficiently. The patient wishes to proceed with procedure. Ernesto Carlin MD Pager: [facility] [facility] [address] [place] [address], [address] [place] [address] Office: Orders Orders: Coding Level of Care Code Off vis,new,level 2 Diagnoses History of aortic valve replacement with metallic valve Z95.4 Screen for colon cancer Z12.11 06/29/17 1352 <Electronically signed by Ernesto Carlin MD> Date Ernesto Carlin MD Cosigner Signature: Date (if applicable) CC: Miya Goldman DO; Mejia Moy DO PAP IG HPV APTIMA Collected: 06/27/2017 Status: F Source: [place] ,45 11:[address] [facility] REPOSITORY Order Comment: CYTOLOGY INFORMATION: - CLINICAL INFORMATION: HYSTERECTOMY - DATE LMP/MENOPAUSE: PARTIAL HYSTERECTOMY - COLLECTION VIAL: Thin Prep Vial - MOLD OPERATOR SOURCE: CERVICAL - COLLECTION TECHNIQUE: BRUSH/SPATULA Specimen Comment: [id number] Specimen Comment: No. of containers..01 ThinPrep Vial TYPE CODE TESTS RESULT OUT OF RANGE REFERENCE UNITS LAB L7400.0800 . Normal DIAGN Comment Result Comment: NEGATIVE FOR INTRAEPITHELIAL LESION AND MALIGNANCY. LAB L7400.0900 . Normal ADEQ Comment Result Comment: Satisfactory for evaluation. Endocervical and/or squamous metaplastic cells (endocervical component) are present. LAB L7400.1400 . Normal PERFORM Comment Result Comment: Shahrzad Mccarthy, Optoelectronics Engineer (ASCP) LAB L7400.2575 . Normal TEST METHOD Comment Result Comment: This liquid based ThinPrep(R) pap test was screened with the use of an image guided system. LAB L7400.2600 . Normal . COMM LAB L7400.2700 . Normal PAPSMR Comment Result Comment: The Pap smear is a screening test designed to aid in the detection of premalignant and malignant conditions of the uterine cervix. It is not a diagnostic procedure and should not be used as the sole means of detecting cervical cancer. Both false-positive and false-negative reports do occur. LAB L7400.2760 Negative Normal HPV APTIMA, Negative HR Result Comment: This test detects fourteen high-risk HPV types (16/18/31/33/35/39/45/ 51/52/56/58/59/66/68) without differentiation. Performed at: - [facility] [id number] Coin Box Collector: Shila Merino MD, Phone: [phone] Performed at: = - [facility] [address] [id number] Coin Box Collector: Shila Merino MD, Phone: [phone] Performed By: #### L7400.0280 #### [facility] (refer to report for specific site) refer to report for address and phone number PROTHROMBIN TIME W/INR Collected: 06/02/2017 Status: F Source: [place] 7:[address] [facility] REPOSITORY TYPE CODE TESTS RESULT OUT OF REFERENCE UNITS RANGE LAB L300.4150 11.7-14.9 SECONDS High PROTIME 35.1 LAB L300.4200 High alert INR 3.5 Performed By: #### L300.3900 #### [facility] [address] [place], [address] SCREENING MAMM (CAD), Observed: 06/02/2017 Status: F Source: [place] BILAT 7:[address] [facility] REPOSITORY [facility] Imaging Services [address] [place] [address] SCREENING MAMM (CAD), BILAT MR#: [id number] Acct: [id number] Name: GARDENIA MUJICA Rep #: [id number] : 1965 F 51 From: Ludwin Hernandes MD PCP: Miya Goldman DO Status: REG CLI Study: SCREENING MAMM (CAD), BILAT Date of Exam: 06/02/17 Exam# [id number] Ordering Dr: Miya Goldman DO MAMMOGRAPHY - BILATERAL SCREENING REASON FOR EXAM: Female, 51 years old. Routine annual screening examination. PERTINENT HISTORY: Non-contributory. TECHNIQUE: Digital bilateral breast doug (3D mammographic acquisition) in the CC and MLO projections. 2-D mediolateral oblique (MLO) and craniocaudad (CC) views of both breasts were obtained. CAD: Full Field Digital Mammography with Computer Added Detection was performed. COMPARISON: Comparison is made with prior study dated September 29, 2015 and November 19, 2009. FINDINGS: Breast Composition: There are scattered areas of fibroglandular density. There are no dominant masses or suspicious calcifications. No other significant abnormalities are identified. There has been no significant change since the prior study. BI/SCREENING MAMM (CAD), BILAT IMPRESSION: Stable bilateral screening mammogram. Yearly follow-up mammogram recommended. (A) ASSESSMENT CATEGORY: BIRADS Category 1: Negative. A letter regarding these results will be sent to the patient by the facility within 30 days. Approximately 10% of breast cancers are not detected by mammography. A normal mammogram should not delay biopsy of a clinically suspicious abnormality. [id number] Electronically Signed: Ludwin Hernandes MD at 8:35 EDT Tel [phone], Service support , CC: Miya Goldman DO Decal Decorator: Signed PROTHROMBIN TIME W/INR Collected: 05/26/2017 Status: F Source: [place] 8:[address] [facility] REPOSITORY TYPE CODE TESTS RESULT OUT OF RANGE REFERENCE UNITS LAB L300.4150 11.7-14.9 SECONDS High PROTIME 20.0 LAB L300.4200 Normal INR 1.7 Performed By: #### L300.3900 #### [facility] [address] [place], [place], [address] CBC W/DIFF, AUTOMATED Collected: 05/26/2017 Status: F Source: [place] 8:[address] [facility] REPOSITORY TYPE CODE TESTS RESULT OUT OF RANGE REFERENCE UNITS LAB L100.1000 4.4-11.0 K/mm3 Normal WBC 5.8 LAB L100.1200 4.2-5.4 M/mm3 Normal RBC 4.61 LAB L100.1300 12.0-15.0 g/dl Normal HGB 14.0 LAB L100.1400 37-47 % Normal HCT 39.9 LAB L100.1500 81-99 fL Normal MCV 86.6 LAB L100.1600 27.0-32.0 pg Normal MCH 30.4 LAB L100.1700 32-36 g/gl Normal MCHC 35.1 LAB L100.1810 11.6-14.6 % Normal RDW CV 13.4 LAB L100.1820 35.1-43.9 fl Normal RDW SD 41.5 LAB L100.1900 150-450 K/mm3 Normal PLT 261 LAB L100.2000 6.2-12.0 fl Normal MPV 10.1 LAB L100.2100 47-70 % Normal NEUT% 54.7 LAB L100.2200 19-41 % Normal LY% 31.8 LAB L100.2300 0-10 % Normal MONO% 8.5 LAB L100.2400 0-5 % Normal EO% 4.5 LAB L100.2500 0-1 % Normal BASO% 0.3 LAB L100.2550 0.0-0.9 % Normal IM GRAN % 0.200 Result Comment: IG% - Immature Granulocytes (promyelocytes, myelocytes and metamyelocytes) > 1% indicates that a LEFT SHIFT is Present. LAB L100.2620 2.0-7.7 X10 3/uL Normal Absolute Neut 3.1 LAB L100.2720 0.83-4.51 X10 3/ul Normal Absolute Lymph 1.83 Performed By: #### L100.0100 #### [facility] [address] [place], [place], [address] COMPREHENSIVE METABOLIC Collected: 05/26/2017 Status: F Source: [facility] 8:[address] [facility] REPOSITORY TYPE CODE TESTS RESULT OUT OF RANGE REFERENCE UNITS LAB L501.0100 74-106 mg/dL Normal GLU 91 Result Comment: Please note revised GLUCOSE reference range effective 2017. LAB L501.1000 7-18 mg/dL High BUN 20 LAB L501.1100 0.55-1.02 mg/dL Normal CREAT,SERUM 0.90 Result Comment: The validity of the calculated GFR AND GFRAA in patients over 70 years has not been determined. Clinical correlation is essential. LAB L501.1110 >60 mL/min Normal EST GFR 70 Result Comment: Non- GFR Calc LAB L501.1115 >60 mL/min Normal EST GFR - AA 85 Result Comment: GFR Calc LAB L501.1300 10-20 RATIO High BUN/CRE 22.2 LAB L501.1500 6.4-8.2 g/dL T Normal PROT 7.7 LAB L501.1800 3.2-5.0 g/dL Normal ALB 3.9 LAB L501.1950 2.2-4.2 g/dL Normal GLOB 3.8 LAB L501.2000 0.9-2.4 RATIO Normal A/G 1.0 LAB L501.2200 8.5-10.1 mg/dL CA Normal 9.2 LAB L501.4100 15-37 U/L Normal AST 30 LAB L501.4305 45-117 U/L High ALK P 119 LAB L501.4405 13-56 U/L Normal ALT 35 Result Comment: Please note revised ALT reference range effective 2017. LAB L501.4600 0.20-1.00 mg/dL Normal T BILI 0.30 LAB L501.5300 136-145 mmol/L Normal NA 142 LAB L501.5600 3.5-5.1 mmol/L Normal K 4.1 LAB L501.5900 98-107 mmol/L Normal CL 105 LAB L501.6100 21.0-32.0 mmol/L Normal CO2 29.0 LAB L501.6200 5-15 Normal GAP 8 Performed By: #### L500.4050, L500.4100, L501.9520, L506.0400 #### [facility] [address] [facility] [place], [place], [id number] LIPID PROFILE Collected: 05/26/2017 Status: F Source: [place] 8:[address] [facility] REPOSITORY TYPE CODE TESTS RESULT OUT OF RANGE REFERENCE UNITS LAB L501.4900 200 mg/dL High CHOL 215 Result Comment: <200 mg/dL Desirable 200-240 mg/dL Borderline >240 mg/dL High Risk LAB L501.5000 mg/dL High TRIG 271 Result Comment: The drugs N-Acetylcysteine and Metamizole may falsely depress this assay. Serum Triglycerides Reference Interval Normal <150 mg/dL Borderline high 150 - 199 mg/dL High 200 - 499 mg/dL Very High > or = 500 mg/dL LAB L501.6400 mg/dL Normal HDL 44 Result Comment: The drugs N-Acetylcysteine and Metamizole may falsely depress this assay. Reference Range HDL <40 mg/dL Low HDL Cholesterol HDL >or= 60 mg/dL High HDL Cholesterol LAB L501.6500 0-130 mg/dL Normal LDL 117 LAB L501.6600 5-40 mg/dL High VLDL 54 Performed By: #### L500.4050, L500.4100, L501.9520, L506.0400 #### [facility] [address] [place], [address] THYROID STIM HORMONE Collected: 05/26/2017 Status: F Source: [place] (TSH) 8:[address] [facility] REPOSITORY TYPE CODE TESTS RESULT OUT OF RANGE REFERENCE UNITS LAB L501.9520 0.358-3.74 uIU/mL Normal TSH 1.50 Performed By: #### L500.4050, L500.4100, L501.9520, L506.0400 #### [facility] [address] [place], [address] T4 FREE DIRECT Collected: 05/26/2017 Status: F Source: [place] 8:[address] [facility] REPOSITORY TYPE CODE TESTS RESULT OUT OF RANGE REFERENCE UNITS LAB L506.0400 0.76-1.46 ng/dL Normal T4 FREE 0.96 DIRECT Performed By: #### L500.4050, L500.4100, L501.9520, L506.0400 #### [facility] [address] [place], [address] VITAMIN B12 Collected: 05/26/2017 Status: F Source: [place] 8:[address] [facility] REPOSITORY TYPE CODE TESTS RESULT OUT OF REFERENCE UNITS RANGE LAB L503.0105 211-911 pg/mL High Vitamin B12 1022 Performed By: #### L503.0105, L506.1000 #### [facility] [address] [place], [address] VITAMIN D,25 HYDROXY Collected: 05/26/2017 Status: F Source: [place] 8:[address] [facility] REPOSITORY TYPE CODE TESTS RESULT OUT OF REFERENCE UNITS RANGE LAB L506.1000 29.95-100.01 ng/mL Low Vitamin D 22.8 25-OH Result Comment: Vitamin D 25(OH) Status Range Deficiency <20 ng/mL (50nmol/L) Insuffciency 20 - 30 ng/mL (50 - 75 nmol/L) Sufficiency 30 - 100 ng/mL (75 - 250 nmol/L) Toxicity >100 ng/mL (>250 nmol/L) Performed By: #### L503.0105, L506.1000 #### [facility] [address] [place], [address] PROTHROMBIN TIME W/INR Collected: 04/28/2017 Status: F Source: LUIGI 10:[address] [facility] REPOSITORY TYPE CODE TESTS RESULT OUT OF RANGE REFERENCE UNITS LAB L300.4150 11.7-14.9 SECONDS High PROTIME 33.1 LAB L300.4200 Normal INR 3.2 Performed By: #### L300.3900 #### [facility] [address] [place], [place], [address] PROTHROMBIN TIME W/INR Collected: 03/28/2017 Status: F Source: LUIGI 8:[address] [facility] REPOSITORY TYPE CODE TESTS RESULT OUT OF RANGE REFERENCE UNITS LAB L300.4150 11.7-14.9 SECONDS High PROTIME 26.9 LAB L300.4200 Normal INR 2.6 Performed By: #### L300.3900 #### [facility] [address] [place], [address] PROTHROMBIN TIME W/INR Collected: 03/10/2017 Status: F Source: LUIGI 11:[address] [facility] REPOSITORY TYPE CODE TESTS RESULT OUT OF RANGE REFERENCE UNITS LAB L300.4150 11.7-14.9 SECONDS High PROTIME 24.2 LAB L300.4200 Normal INR 2.3 Performed By: #### L300.3900 #### [facility] [address] [place], [place], [address] ALLERGIES ALLERGIES DATE TYPE / CODE NAME / CODE REACTION SEVERITY SOURCE 01/05/2018 Drug tramadol/F00 Nausea Unknown [facility] Allergy/4160 [id number](RXNO Hospital 07695(SNOMED RM) Repository CT) 01/05/2018 Drug gabapentin/F Abd [facility] Allergy/4160 [id number](RX cramps/diarrhea Hospital 59459(SNOMED NORM) Repository CT) 01/05/2018 Drug venlafaxine/ Pain in joints [facility] Allergy/4160 [id number](R Hospital 99695(SNOMED XNORM) Repository CT) 01/05/2018 Drug fluoxetine/F Other [facility] Allergy/4160 [id number](RX Hospital 32199(SNOMED NORM) Repository CT) ENCOUNTERS ENCOUNTERS ADMIT/DISCHARGE ACCOUNT ADMITTING ENCOUNTER LOCATION SOURCE NUMBER CLASS 02/17/2018 [id number] Ambulatory BMSBuilding:B [place] 7 [facility] Hospital Repository 01/31/2018 [id number] Ambulatory [place] 3 [facility] ing:BFHLAB Repository 01/05/2018/ [id number] Emergency Luigi [place] 8 3 [facility] Hospital ing:ED Repository 12/29/2017 [id number] Ambulatory [place] Luigi 5 [facility] ing:BFHLAB Repository 12/09/2017/ [id number] Emergency [place] Luigi 8 1 [facility] Hospital ing:ED Repository 12/07/2017 [id number] Ambulatory Luigi Lu[place] 9 [facility] Hospital ing:BFHLAB Repository 11/29/2017 [id number] Ambulatory Luigi Lu[place] 7 [facility] Hospital ing:BFHLAB Repository 11/17/2017 [id number] Ambulatory [place] Luigi 0 [facility] ing:BFHLAB Repository 11/04/2017 [id number] Ambulatory [place] Luigi 3 [facility] ing:BFHLAB Repository 11/02/2017 [id number] Amb[place] 2 [facility] ing:MRI Repository 10/26/2017 [id number] Amb[place] 0 [facility] ing:BFHLAB Repository 10/14/2017 [id number] Ambulatory Luigi Luigi 7 [facility] Hospital ing:CVS Repository 10/14/2017 [id number] Ambulatory BMSBuilding:B [place] 6 MS.[facility] Hospital Repository 10/14/2017 [id number] Ambulatory BMSBuilding:W [place] 3 [facility] Hospital Repository 10/13/2017 [id number] Ambulatory Luigi [place] 9 [facility] ing:BFHLAB Repository 10/06/2017 [id number] Ambulatory Luigi [place] 2 [facility] ing:BFHLAB Repository 10/05/2017 [id number] Ambulatory BMSBuilding:B [place] 2 [facility] Hospital Repository 09/29/2017 [id number] Ambulatory [place] Lu[place] 7 [facility] Hospital ing:BFHLAB Repository 09/22/2017 [id number] Ambulatory Luigi Lu[place] 4 [facility] Hospital ing:[facility] Repository 09/22/2017 [id number] Ambulatory BMSBuilding:W [place] 6 [facility] Repository 09/19/2017 [id number] Ambulatory [place] 1 [facility] Hospital ing: Repository 09/19/2017 [id number] Ambulatory BMSBuilding:B [place] 7 MS.[facility] Repository 09/09/2017 [id number] Ambulatory [place] Luigi 8 [facility] Hospital ing:BFHLAB Repository 09/06/2017 [id number] Ambulatory [place] 4 [facility] Hospital ing:[facility] Repository 09/06/2017 [id number] Ambulatory BMSBuilding:W [place] 5 [facility] Repository 09/05/2017/ [id number] Ambulatory Luigi [place] 8 6 [facility] Hospital ing: Repository 09/05/2017 [id number] Ambulatory BMSBuilding:B [place] 6 [facility] Repository 08/22/2017 [id number] Ambulatory BMSBuilding:B [place] 5 [facility] Repository 08/05/2017/ [id number] Griffin, Marcel Chi Inpatient [place] Lu[place] 8 4 Encounter [facility] ing:TCURoom: Repository [id number]: 1 07/27/2017/ [id number] [place], Inpatient Luigi Lu[place] 8 1 [place] Encounter [facility] Hospital ing:PCURoom: Repository MCW179Wln: 1 07/27/2017 [id number] [place], Ambulatory BMSBuilding:B [place] 9 [place] [facility] Repository 07/27/2017 [id number] [place], Ambulatory BMSBuilding:B [place] 8 [place] [facility] Repository 07/27/2017 [id number] [place], Ambulatory BMSBuilding:B [place] 5 [place] [facility] Repository 07/27/2017 [id number] [place], Ambulatory BMSBuilding:B [place] 3 [place] MS.[facility] Repository 07/27/2017 [id number] [place], Ambulatory BMSBuilding:B [place] 5 [place] MS[facility] Repository 07/27/2017 [id number] [place], Ambulatory BMSBuilding:B [place] 0 [place] [facility] Repository 07/27/2017 [id number] [place], Ambulatory BMSBuilding:B [place] 3 [place] [facility] Repository 07/27/2017 [id number] [place], Ambulatory BMSBuilding:B [place] 6 [place] [facility] Repository 07/27/2017 [id number] [place], Ambulatory BMSBuilding:B [place] 0 [place] [facility] Repository 07/27/2017 [id number] [place], Ambulatory BMSBuilding:B [place] 3 [place] [facility] Repository 07/27/2017 [id number] [place], Ambulatory BMSBuilding:B [place] 9 [place] MS[facility] Repository 07/27/2017 [id number] [place], Ambulatory BMSBuilding:B [place] 7 [place] MS.[facility] Repository 07/24/2017/ [id number] Emergency [place] Luigi 8 1 [facility] Hospital ing:ED Repository 07/13/2017 [id number] Ambulatory [place] 3 [facility] Hospital ing:BFHLAB Repository 07/05/2017/ [id number] Ambulatory [place] 8 3 [facility] Hospital ing:EN Repository 07/05/2017 [id number] Ambulatory BMSBuilding:B [place] 9 MS.[facility] Repository 06/29/2017 [id number] Ambulatory BMSBuilding:B [place] 4 [facility] Repository 06/29/2017/ [id number] Ambulatory BMSBuilding:B [place] 8 2 [facility] Repository 06/28/2017 [id number] Ambulatory BMSBuilding:B [place] 6 [facility] Repository 06/27/2017 [id number] Ambulatory Luigi Luigi 3 [facility] ing:LABSPEC Repository 06/27/2017/ [id number] Ambulatory BMSBuilding:B [place] 8 6 [facility] Repository 2017 [id number] Ambulatory [place] 1 [facility] ing:LAB Repository 06/02/2017/ [id number] Ambulatory [place] 8 1 [facility] ing:LAB Repository 06/02/2017 [id number] Ambulatory Luigi [place] 0 [facility] ing:OPBI Repository 05/26/2017 [id number] Ambulatory [place] Luigi 1 [facility] ing:BFHLAB Repository 04/28/2017 [id number] Ambulatory [place] 5 [facility] ing:BFHLAB Repository 04/24/2017 [id number] Ambulatory [place] Luigi 0 [facility] ing:BFHLAB Repository 03/28/2017/ [id number] Ambulatory [place] Luigi 8 1 [facility] ing:BFHLAB Repository 03/27/2017 [id number] Ambulatory [place] 6 [facility] ing:BFHLAB Repository 03/10/2017/ [id number] Ambulatory [place] 8 0 [facility] ing:BFHLAB Repository PAYERS PAYERS ENCOUNTER GUARANTOR PAYER SUBSCRIBER SOURCE 02/17/2018 GARDENIA Carrasco Primary RICK WANG [place] [id number] N Insurance:ANTHEMPolic BAKERDOB: [facility] MALISSA meeks Number: [id number] [id number] Repository [address]Ggy: 330) Date:7845-89-60MB [phone] ([facility] [address], [place] [address]YL: 02/17/2018 Secondary NOT GIVENUNK [place] Insurance:SELF PAY [facility] Number: Effective Repository Date:2018-02-17 01/31/2018 GARDENIA Carrasco Primary RICK WANG [place] [id number] N Insurance:ANTHEMPolic BAKERDOB: [facility] MALISSA y Number: [id number] [id number] Repository 401[address]Ryb: (330) Date:3472-70-70CA [phone] () [address] [place] [address] [place] [address]VZ: 01/31/2018 Secondary NOT GIVENUNK [place] Insurance:SELF PAY [facility] Number: Effective Repository Date:2018-01-31 01/05/2018 BRETMono Carrasco Primary RICK [place] [id number] N Insurance:ANTHEMPolic BAKERDOB: Community MALISSA y Number: [id number], [place] [id number] Repository [address]Giu: (330) Date:6109-54-64JZ [phone] () [id number] [place] [address]IC: 01/05/2018 Secondary NOT GIVENUNK [place] Insurance:SELF PAY [facility] Number: Effective Repository Date:2018-01-05 12/29/2017 BRETMono Carrasco Primary NOT GIVENUNK [place] [id number] N Insurance:SELF PAY [place] Number: Effective Repository 19814Gkg: (330) Date:2017-12-29 [phone] () 12/09/2017 GISELARAFAL Carrasco Primary RICK Meyers [id number] N Insurance:ANTHEMPolic BAKERDOB: Community MALISSA y Number: [id number], [place] [id number] Repository [address]Cvj: (330) Date:4839-37-93PV [phone] () [address] [place] [address] [place] [address]WF: 12/09/2017 Secondary NOT GIVENUNK [place] Insurance:SELF PAY [facility] Number: Effective Repository Date:2017-12-09 12/07/2017 GISELARAFAL Carrasco Primary RICKSHANNON [place] [id number] N Insurance:ANTHEMPolic BAKERDOB: [facility] MALISSA y Number: [id number], [place] [id number] Repository [address]49[address]Emq: (330) Date:7734-24-85HO [phone] () 1280[address]TYTPRTV, [place] [address]CQ: 12/07/2017 Secondary NOT GIVENUNK [place] Insurance:SELF PAY [facility] Number: Effective Repository Date:2017-12-07 11/29/2017 GISELARAFAL Carrasco Primary RICK BAKERDOB: [place] [id number] N Insurance:ANTHEMPolic [id number] Community MALISSA y Number: [place], [place] [id number] Repository [address]Kcc: (330) Date:5267-20-82XP [phone] () [address]01[address]IGZENSE, [place] [address]QI: 11/29/2017 Secondary NOT GIVENUNK [place] Insurance:SELF PAY [facility]: Effective Repository Date:2017-11-29 11/17/2017 BRETMono Carrasco Primary RICK BAKERDOB: [place] [id number] N Insurance:ANTHEMPolic [id number] Community MALISSA y Number: [place] [id number] Repository 472[address]She: (330) Date:6745-96-93NY [phone] () [address]897[address]XPANPHN, [place] [address]PE: 11/17/2017 Secondary NOT GIVENUNK [place] Insurance:SELF PAY Community [facility] Number: Effective Repository Date:2017-11-17 11/04/2017 GISELARAFAL Carrasco Primary RICK BAKERDOB: [place] [id number] N Insurance:ANTHEMPolic [id number] Community MALISSA y Number: [place] [id number] Repository 074[address]Eyd: (330) Date:2897-68-97DB [phone] () 3876[address]DUPOTMF, [place] [address]HC: 11/04/2017 Secondary NOT GIVENUNK [place] Insurance:SELF PAY Community [facility] Number: Effective Repository Date:2017-11-04 11/02/2017 GARDENIA Carrasco Primary RICK BAKERDOB: [place] [id number] N Insurance:ANTHEMPolic [id number] Community MALISSA y Number: [place], [place] [id number] Repository 370[address]Got: (330) Date:2367-54-29MC [phone] () 657771RIJWPDS, [place] [address]PG: 11/02/2017 Secondary NOT GIVENUNK [place] Insurance:SELF PAY Community [facility] Number: Effective Repository Date:2017-10-26 10/26/2017 BRETMono Carrasco Primary RICK BAKERDOB: [place] [id number] N Insurance:ANTHEMPolic [id number] Community MALISSA y Number: [place] [id number] Repository 946[address]Oyz: (330) Date:6948-45-02OH [phone] () [id number], [place] [address]QZ: 10/26/2017 Secondary NOT GIVENUNK [place] Insurance:SELF PAY Community [facility] Number: Effective Repository Date:2017-10-26 10/14/2017 BRETMono Luna Primary RICK BAKERDOB: [place] [id number] N Insurance:ANTHEMPolic [id number] Community MALISSA y Number: [place] [id number] Repository [address]Wkf: (330) Date:0108-60-83YY [phone] () 587037UDYFYRW, [place] [address]II: 10/14/2017 Secondary NOT GIVENUNK [place] Insurance:SELF PAY Community [facility] Number: Effective Repository Date:2017-10-03 10/14/2017 BRETMono Carrasco Primary RICK BAKERDOB: [place] [id number] N Insurance:ANTHEMPolic [id number] Community MALISSA y Number: [place] [id number] Repository 730[address]Qkd: (330) Date:9937-68-49BT [phone] () 434942ICVWKGZ, [place] [address]AO: 10/14/2017 Secondary NOT GIVENUNK [place] Insurance:SELF PAY Community [facility] Number: Effective Repository Date:2017-10-14 10/14/2017 GISELARAFAL Carrasco Primary RICK BAKERDOB: [place] [id number] N Insurance:ANTHEMPolic [id number] Community MALISSA y Number: [place] [id number] Repository 484[address]Xuy: (330) Date:5755-19-18XK [phone] () 299014TBHDQYD, [place] [address]XZ: 10/14/2017 Secondary NOT GIVENUNK [place] Insurance:SELF PAY Community [facility] Number: Effective Repository Date:2017-10-14 10/13/2017 GARDENIA Carrasco Primary RICK BAKERDOB: [place] [id number] N Insurance:ANTHEMPolic [id number] Community MALISSA y Number: [place] [id number] Repository 78[address]Qql: (330) Date:9848-09-88UM [phone] () 809383EYPZSAG, [place] [address]WI: 10/13/2017 Secondary NOT GIVENUNK [place] Insurance:SELF PAY Community [facility] Number: Effective Repository Date:2017-10-13 10/06/2017 GARDENIA Carrasco Primary RICK BAKERDOB: [place] [id number] N Insurance:ANTHEMPolic [id number] Community MALISSA y Number: [place] [id number] Repository 940[address]Yul: (330) Date:3783-04-07CI [phone] () 345137AKOFMMZ, [place] [address]VH: 10/06/2017 Secondary NOT GIVENUNK [place] Insurance:SELF PAY Community [facility] Number: Effective Repository Date:2017-10-06 10/05/2017 GARDENIA Carrasco Primary RICK BAKERDOB: [place] [id number] N Insurance:ANTHEMPolic [id number] Community MALISSA y Number: [place] [id number] Repository 823[address]Wmm: (330) Date:6051-71-59UB [phone] () 204898PGKRDNS, [place] [address]YN: 10/05/2017 Secondary NOT GIVENUNK [place] Insurance:SELF PAY Community [facility] Number: Effective Repository Date:2017-10-05 09/29/2017 GARDENIA Carrasco Primary RICK MUJICADOB: [place] [id number] N Insurance:ANTHEMPolic [id number] Community MALISSA y Number: [place] [id number] Repository 339[address]Xsi: (330) Date:8144-62-96GM BOX [facility]0646 () 633160UCUGNJG [place] [address]OM: 09/29/2017 Secondary NOT GIVENUNK [place] Insurance:SELF PAY Community [facility] Number: Effective Repository Date:2017-09-29 09/22/2017 GISELARAFAL Carrasco Primary RICK BAKERDOB: [place] [id number] N Insurance:ANTHEMPolic [id number] Community MALISSA y Number: [place] [id number] Repository 054[address]Dan: (330) Date:2495-29-55TS BOX [facility]-5713 () [id number] [place] [address]EU: 09/22/2017 Secondary NOT GIVENUNK [place] Insurance:SELF PAY Community [facility] Number: Effective Repository Date:2017-09-15 09/22/2017 GARDENIA Carrasco Primary RICK MUJICADOB: [place] [id number] N Insurance:ANTHEMPolic [id number] Community MALISSA y Number: [place] [id number] Repository 676[address]Pcq: (330) Date:6190-06-99UO BOX [facility]-2583 () [id number] [place] [address]HE: 09/22/2017 Secondary NOT GIVENUNK [place] Insurance:SELF PAY Community [facility] Number: Effective Repository Date:2017-09-22 09/19/2017 GARDENIA Carrasco Primary RICK SILDOB: [place] [id number] N Insurance:ANTHEMPolic [id number] Community MALISSA y Number: [place] [id number] Repository 093[address]Kba: (855) Date:2310-94-08UE [phone] () 252499DIGFGYQ, [place] [address]BA: 09/19/2017 Secondary NOT GIVENUNK [place] Insurance:SELF PAY [facility] Number: Effective Repository Date:2017-09-14 09/19/2017 GISELAARFAL Carrasco Primary RICK BAKERDOB: [place] [id number] N Insurance:ANTHEMPolic [id number] Community MALISSA y Number: [place] [id number] Repository 59[address]Joo: (330) Date:3652-54-71BK [phone] () 196053EMYILVK, [place] [address]CE: 09/19/2017 Secondary NOT GIVENUNK [place] Insurance:SELF PAY [facility] Number: Effective Repository Date:2017-09-19 09/09/2017 BRETMono Luna Primary RICK BAKERDOB: [place] [id number] N Insurance:ANTHEMPolic [id number] Community MALISSA y Number: [place] [id number] Repository 56[address]Bsm: (330) Date:0839-12-01QO [phone] () 479655UQFRGII, [place] [address]TG: 09/09/2017 Secondary NOT GIVENUNK [place] Insurance:SELF PAY [facility] Number: Effective Repository Date:2017-09-09 09/06/2017 BRETMono Carrasco Primary RICK BAKERDOB: [place] [id number] N Insurance:ANTHEMPolic [id number] Community MALISSA y Number: [place] [id number] Repository 730[address]Dos: (330) Date:6148-43-82VC [phone] () 704295MRWFDFQ, [place] [address]WU: 09/06/2017 Secondary NOT GIVENUNK [place] Insurance:SELF PAY Community [facility] Number: Effective Repository Date:2017-09-02 09/06/2017 BRETMono Luna Primary RICK BAKERDOB: [place] [id number] N Insurance:ANTHEMPolic [id number] Community MALISSA y Number: [place] [id number] Repository 50[address]Wko: (330) Date:7130-81-68NY [phone] () 262677KOTTCSI, [place] [address]IC: 09/06/2017 Secondary NOT GIVENUNK [place] Insurance:SELF PAY Community [facility] Number: Effective Repository Date:2017-09-06 09/05/2017 GARDENIA Carrasco Primary IRCK BAKERDOB: [place] [id number] N Insurance:ANTHEMPolic [id number] Community MALISSA y Number: [place] [id number] Repository 876[address]Oha: (330) Date:6452-30-76OC [phone] () 999147IJOHLBT, [place] [address]WG: 09/05/2017 Secondary NOT GIVENUNK [place] Insurance:SELF PAY Community [facility] Number: Effective Repository Date:2017-08-22 09/05/2017 GARDENIA Carrasco Primary RICK BAKERDOB: [place] [id number] N Insurance:ANTHEMPolic [id number] Community MALISSA y Number: [place] [id number] Repository 803[address]Iin: (330) Date:9572-08-67ZH [phone] () 795041EVWXCLA, [place] [address]EW: 09/05/2017 Secondary NOT GIVENUNK [place] Insurance:SELF PAY Community [facility] Number: Effective Repository Date:2017-09-05 08/22/2017 GARDENIA Carrasco Primary RICK BAKERDOB: [place] [id number] N Insurance:ANTHEMPolic [id number] Community MALISSA y Number: [place] [id number] Repository 355[address]Coy: (330) Date:5069-51-17OP [phone] () 546520QPYNJSC, [place] [address]CG: 08/22/2017 Secondary NOT GIVENUNK [place] Insurance:SELF PAY Community [facility] Number: Effective Repository Date:2017-08-22 08/05/2017 GARDENIA Carrasco Primary RICK BAKERDOB: [place] [id number] N Insurance:ANTHEMPolic [id number] Community MALISSA y Number: [place] [id number] Repository 39[address]Dmi: (330) Date:7290-26-22BC [phone] () 844522JLAOZVZCUONG CHEN [address]QD: 08/05/2017 Secondary NOT GIVENUNK [place] Insurance:SELF PAY Community [facility] Number: Effective Repository Date:2017-08-05 07/27/2017 MARAFAL Carrasco Primary RICK BAKERDOB: [place] [id number] N Insurance:ANTHEMPolic [id number] Community MALISSA y Number: [place] [id number] Repository 714[address]Lgv: (330) Date:1997-06-37HZ [phone] () 464368YRKSWGQCUONG CHEN [address]NG: 07/27/2017 Secondary NOT GIVENUNK [place] Insurance:SELF PAY Community [facility] Number: Effective Repository Date:2017-07-27 07/27/2017 GARDENIA Carrasco Primary RICK BAKERDOB: [place] [id number] N Insurance:ANTHEMPolic [id number] Community MALISSA y Number: [place] [id number] Repository 35839Tdv: (330) Date:6243-41-77TD [phone] () 388597UJVTWUUCUONG CHEN [address]IY: 07/27/2017 Secondary NOT GIVENUNK [place] Insurance:SELF PAY Community [facility] Number: Effective Repository Date:2017-07-27 07/27/2017 GARDENIA Carrasco Primary RICK BAKERDOB: [place] [id number] N Insurance:ANTHEMPolic [id number] Community MALISSA y Number: [place] [id number] Repository 69796Squ: (330) Date:7900-46-32JH [phone] () 041976AGZVEPRCUONG CHEN [address]OQ: 07/27/2017 Secondary NOT GIVENUNK [place] Insurance:SELF PAY Community [facility] Number: Effective Repository Date:2017-07-27 07/27/2017 GISELARAFAL Carrasco Primary RICK BAKERDOB: [place] [id number] N Insurance:ANTHEMPolic [id number] Community AMLISSA y Number: [place] [id number] Repository 53[address]Gim: (330) Date:4093-53-77LF BOX [facility]-0423 () [address] [place] [address]RP: 07/27/2017 Secondary NOT GIVENUNK [place] Insurance:SELF PAY Community [facility] Number: Effective Repository Date:2017-07-27 07/27/2017 GISELARAFAL Carrasco Primary RICK BAKERDOB: [place] [id number] N Insurance:ANTHEMPolic [id number] Community MALISSA y Number: [place] [id number] Repository 69[address]Iqo: (330) Date:1211-22-13KV [phone] () [address] [place] [address]MJ: 07/27/2017 Secondary NOT GIVENUNK [place] Insurance:SELF PAY Community [facility] Hospital Number: Effective Repository Date:2017-07-27 07/27/2017 GISELARAFAL Carrasco Primary RICK BAKERDOB: [place] [id number] N Insurance:ANTHEMPolic [id number] Community MALISSA y Number: [place] [id number] Repository 55932Oce: (330) Date:8877-79-91BG [phone] () [id number] [place] [address] 24669SL: 07/27/2017 Secondary NOT GIVENUNK [place] Insurance:SELF PAY Community [facility] Number: Effective Repository Date:2017-07-27 07/27/2017 GISELARAFAL Carrasco Primary RICK BAKERDOB: Luigi [id number] N Insurance:ANTHEMPolic [id number] Community MALISSA y Number: [place] [id number] Repository 10596Uac: (330) Date:4829-36-28SW [phone] () [id number] CHEN 86722JJ: 07/27/2017 Secondary NOT GIVENUNK [place] Insurance:SELF PAY Community [facility] Number: Effective Repository Date:2017-07-27 07/27/2017 GARDENIA Carrasco Primary RICK BAKERDOB: Luigi [id number] N Insurance:ANTHEMPolic [id number] Community MALISSA y Number: [place] [id number] Repository 433[address]Wgo: (330) Date:5553-36-59BM [phone] () 308322WPNBQYI, [place] [address]KM: 07/27/2017 Secondary NOT GIVENUNK Luigi Insurance:SELF PAY Community [facility] Number: Effective Repository Date:2017-07-27 07/27/2017 GISELARAFAL Carrasco Primary RICK BAKERDOB: Luigi [id number] N Insurance:ANTHEMPolic [id number] Community MALISSA y Number: [place] [id number] Repository [address]Vjw: (330) Date:7011-58-26NU [phone] () [id number], [place] [address]YF: 07/27/2017 Secondary NOT GIVENUNK Luigi Insurance:SELF PAY [facility]: Effective Repository Date:2017-07-27 07/27/2017 GISELARAFAL Carrasco Primary RICK BAKERDOB: Luigi [id number] N Insurance:ANTHEMPolic [id number] Community MALISSA y Number: [place] [id number] Repository 779[address]Ykm: (330) Date:0110-63-90OG [phone] () 668919VIMYAZE, [place] [address]TO: 07/27/2017 Secondary NOT GIVENUNK [place] Insurance:SELF PAY Community [facility] Number: Effective Repository Date:2017-07-27 07/27/2017 GISELARAFAL Carrasco Primary RICK BAKERDOB: Luigi [id number] N Insurance:ANTHEMPolic [id number] Community MALISSA y Number: [place] [id number] Repository 188[address]Njy: (330) Date:4048-75-73MQ [phone] () [address] [place] [address] [place] [address]TB: 07/27/2017 Secondary NOT GIVENUNK [place]igi Insurance:SELF PAY Community [facility] Number: Effective Repository Date:2017-07-27 07/27/2017 GARDENIA Carrasco Primary RICK BAKERDOB: [place] [id number] N Insurance:ANTHEMPolic [id number] Community MALISSA y Number: [place] [id number] Repository 623[address]Paa: (330) Date:1631-64-14DJ [phone] () [address] [place] [address] [place] [address]ZT: 07/27/2017 Secondary NOT GIVENUNK [place] Insurance:SELF PAY Community [facility] Number: Effective Repository Date:2017-07-27 07/27/2017 GARDENIA Carrasco Primary RICK BAKERDOB: [place] [id number] N Insurance:ANTHEMPolic [id number] Community MALISSA y Number: [place] [id number] Repository 188[address]Yee: (330) Date:9874-17-85DJ [phone] () [id number] [place] [address]SB: 07/27/2017 Secondary NOT GIVENUNK Luigi Insurance:SELF PAY Community [facility] Number: Effective Repository Date:2017-07-27 07/24/2017 GARDENIA Carrasco Primary RICK BAKERDOB: [place] [id number] N Insurance:ANTHEMPolic [id number] Community MALISSA y Number: [place] [id number] Repository 89[address]Rct: (330) Date:0591-93-48QF [phone] () 027712GOXGELY, [place] [address]OE: 07/24/2017 Secondary NOT GIVENUNK [place] Insurance:SELF PAY Community [facility] Number: Effective Repository Date:2017-07-24 07/13/2017 GARDENIA Carrasco Primary RICK BAKERDOB: [place] [id number] N Insurance:ANTHEMPolic [id number] Community MALISSA y Number: [place] [id number] Repository 91560Xwj: (330) Date:0255-89-10CR [phone] () 412116HYVXZDJCUONG CHEN [address]GO: 07/13/2017 Secondary NOT GIVENUNK [place]igi Insurance:SELF PAY Community [facility] Number: Effective Repository Date:2017-07-13 07/05/2017 GARDENIA Carrasco Primary RICK BAKERDOB: Luigi [id number] N Insurance:ANTHEMPolic [id number] Community MALISSA y Number: [place] [id number] Repository 593[address]Ipf: (330) Date:7948-14-53QA [phone] () 799002PLJBHXOCUONG CHEN [address]HC: 07/05/2017 Secondary NOT GIVENUNK [place]igi Insurance:SELF PAY Community [facility] Number: Effective Repository Date:2017-06-29 07/05/2017 GARDENIA Carrasco Primary RICK BAKERDOB: Luigi [id number] N Insurance:ANTHEMPolic [id number] Community MALISSA y Number: [place] [id number] Repository 405[address]Nly: (330) Date:7059-37-03JP [phone] () [id number] CHEN [address]RI: 07/05/2017 Secondary NOT GIVENUNK [place] Insurance:SELF PAY Community [facility] Hospital Number: Effective Repository Date:2017-07-05 06/29/2017 GARDENIA Carrasco Primary RICK BAKERDOB: [place] [id number] N Insurance:ANTHEMPolic [id number] Community MALISSA y Number: [place] [id number] Repository 62963Ncl: (330) Date:4203-25-48BS [phone] () 700568IXRBONZ, [place] [address]UC: 06/29/2017 Secondary NOT GIVENUNK [place] Insurance:SELF PAY Community [facility] Number: Effective Repository Date:2017-02-03 06/29/2017 GARDENIA Carrasco Primary RICK BAKERDOB: Luigi [id number] N Insurance:ANTHEMPolic [id number] Community MALISSA y Number: [place] [id number] Repository 88735Jcz: (330) Date:8534-67-80MA [phone] () [address] [place] [address] 22548VY: 06/29/2017 Secondary NOT GIVENUNK [place] Insurance:SELF PAY Community [facility] Number: Effective Repository Date:2017-06-29 06/28/2017 GISELARAFAL TY Primary RICK BAKERDOB: Luigi [id number] N Insurance:ANTHEMPolic [id number] Community MALISSA y Number: [place] [id number] Repository 868[address]Iul: (330) Date:3671-10-80HB [phone] () [address] [place] [address]79[address]PL: 06/28/2017 Secondary NOT GIVENUNK [place] Insurance:SELF PAY Community [facility] Number: Effective Repository Date:2017-06-28 06/27/2017 GARDENIA Carrasco Primary RICK BAKERDOB: Luigi [id number] N Insurance:ANTHEMPolic [id number] Community MALISSA y Number: [place] [id number] Repository 511[address]Gev: (330) Date:5906-34-85HG [phone] () [address] [place] [address] 40[address]NS: 06/27/2017 Secondary NOT GIVENUNK [place] Insurance:SELF PAY Community [facility] Number: Effective Repository Date:2017-06-27 06/27/2017 GARDENIA TY Primary RICK SILDOB: [place] [id number] N Insurance:ANTHEMPolic [id number] Community MALISSA y Number: [place] [id number] Repository 316[address]Kga: (330) Date:4228-20-25KT [phone] () 510342FXMIYNN, [place] [address]YB: 06/27/2017 Secondary NOT GIVENUNK [place] Insurance:SELF PAY Community [facility] Number: Effective Repository Date:2017-06-27 2017 [place] Carrasco Primary RICK BAKERDOB: [place] [id number] N Insurance:ANTHEMPolic [id number] Community MALISSA y Number: [place] [id number] Repository 850[address]Xbn: (330) Date:9692-63-60OY [phone] () 702988OTWGECD, [place] [address]JE: 2017 Secondary NOT GIVENUNK [place] Insurance:SELF PAY Community [facility] Number: Effective Repository Date:2017 06/02/2017 Giselarafal Carrasco Primary RICK BAKERDOB: [place] [id number] N Insurance:ANTHEMPolic [id number] Community MALISSA y Number: [place] [id number] Repository 51958Pej: (330) Date:4642-71-24DW [phone] () 420029NOPBDCP, [place] [address]EY: 06/02/2017 Secondary NOT GIVENUNK [place] Insurance:SELF PAY Community [facility] Number: Effective Repository Date:2017-06-02 06/02/2017 [place] Carrasco Primary RICK BAKERDOB: [place] [id number] N Insurance:ANTHEMPolic [id number] Community MALISSA y Number: [place] [id number] Repository 316[address]Nfj: (330) Date:1293-13-45GJ [phone] () 445200EMLJFIE, [place] [address]SL: 06/02/2017 Secondary NOT GIVENUNK [place] Insurance:SELF PAY Community [facility] Number: Effective Repository Date:2017-05-09 05/26/2017 Giselarafal Carrasco Primary RICK BAKERDOB: [place] [id number] N Insurance:ANTHEMPolic [id number] Community MALISSA y Number: [place] [id number] Repository 40[address]Ocf: (330) Date:7759-55-41SY [phone] () 912603ZRYVLLZ, [place] [address]KI: 05/26/2017 Secondary NOT GIVENUNK [place] Insurance:SELF PAY Community [facility] Number: Effective Repository Date:2017-05-26 04/28/2017 [place] Carrasco Primary RICK BAKERDOB: [place] [id number] N Insurance:ANTHEMPolic [id number] Community MALISSA y Number: [place] [id number] Repository 93917Xpy: (330) Date:7970-89-12IX [phone] () [id number], [place] [address]UL: 04/28/2017 Secondary NOT GIVENUNK [place] Insurance:SELF PAY Community [facility] Number: Effective Repository Date:2017-02-15 04/24/2017 [place] Carrasco Primary RICK BAKERDOB: [place] [id number] N Insurance:ANTHEMPolic [id number] Community MALISSA y Number: [place] [id number] Repository 87[address]Jlp: (330) Date:3439-62-43YX [phone] () 763065DBYYRUF, [place] [address]KA: 04/24/2017 Secondary NOT GIVENUNK [place] Insurance:SELF PAY Community [facility] Number: Effective Repository Date:2017-04-14 03/28/2017 [place] Carrasco Primary RICK BAKERDOB: [place] [id number] N Insurance:ANTHEMPolic [id number] Community MALISSA y Number: [place] [id number] Repository 336[address]Izz: (330) Date:0998-03-51QN [phone] () 827780BQDLKVY, [place] [address]BP: 03/28/2017 Secondary NOT GIVENUNK [place] Insurance:SELF PAY Community [facility] Number: Effective Repository Date:2017-03-28 03/27/2017 [place] Carrasco Primary RICK BAKERDOB: [place] [id number] N Insurance:ANTHEMPolic [id number] [facility] MALISSA y Number: [place] [id number] Repository 67[address]Eig: (330) Date:4558-73-19NS [phone] () [id number] [place] [address]EX: 03/27/2017 Secondary NOT GIVENUNK [place] Insurance:SELF PAY [facility] Number: Effective Repository Date:2017-03-17 03/10/2017 [place] Carrasco Primary RICK BENNETTB: [place] [id number] N Insurance:ANTHEMPolic [id number] [facility] MALISSA y Number: [place] [id number] Repository 406[address]Qhv: (330) Date:9085-89-71LT [phone] () [id number] [place] [address]CX: 03/10/2017 Secondary NOT GIVENUNK Luigi Insurance:SELF PAY [facility] Number: Effective Repository Date:2017-03-10
== END ==
PROVIDERS: Family Provider Family Medicine; PCP Family Medicine; Visit Provider Internal Medicine Cardiovascular Disease
DX: Z95.4 Presence of other heart-valve replacement (principal); Z79.01 Long term (current) use of anticoagulants
CPT/HCPCS: 36415; 85610

== ENCOUNTER → 2018-03-15 09:43 | Outpatient (CLI) | payer BC, SELFPAY ==
[2018-03-15 12:47] LABS: International Normalized Ratio 2.4
== END ==
PROVIDERS: Family Provider Family Medicine; PCP Family Medicine; Visit Provider Internal Medicine Cardiovascular Disease
DX: Z79.01 Long term (current) use of anticoagulants (principal); Z95.4 Presence of other heart-valve replacement
CPT/HCPCS: 36415; 85610

== ENCOUNTER → 2018-04-03 09:35 | Outpatient (CLI) | payer BC, SELFPAY ==
[2018-04-03 12:32] LABS: International Normalized Ratio 2.6
== END ==
PROVIDERS: Family Provider Family Medicine; PCP Family Medicine; Visit Provider Internal Medicine Cardiovascular Disease
DX: Z95.4 Presence of other heart-valve replacement (principal); Z79.01 Long term (current) use of anticoagulants
CPT/HCPCS: 36415; 85610

== ENCOUNTER → 2018-04-04 08:07 | Outpatient (CLI) | payer BC, SELFPAY ==
[2018-04-04 13:16] LABS: Chlamydia Trachomatis by PCR Negative (Negative); Neisserai gonorrhoeae by PCR Negative (Negative); Probe Check PASS; Sample Adequacy Control PASS; Specimen Processing Control PASS
[2018-04-07 00:50] LABS: Rapid Plasmin Reagin (RPR) NONREACTIVE (NONREACTIVE)
== END ==
PROVIDERS: Family Provider Family Medicine; PCP Family Medicine; Visit Provider Family Medicine
DX: Z20.9 Contact with and (suspected) exposure to unspecified communicable disease (principal)
CPT/HCPCS: 86592; 87086; 87491; 87591

== ENCOUNTER → 2018-04-07 10:54 | Outpatient (CLI) | payer BC, SELFPAY ==
[2018-04-07 10:20] VITALS: BMI 25.9
[2018-04-08 09:25] LABS: HSV 2 IgG > 23.60 index (0.00-0.90)
== END ==
PROVIDERS: Family Provider Family Medicine; PCP Family Medicine; Referring Provider Nurse Practitioner Women's Health; Visit Provider Nurse Practitioner Women's Health
DX: N90.89 Other specified noninflammatory disorders of vulva and perineum (principal)
CPT/HCPCS: 36415; 86695; 86696; 87255

== ENCOUNTER → 2018-05-08 09:44 | Outpatient (CLI) | payer BC, SELFPAY ==
[2018-04-07 11:02] VITALS: BMI 25.9
[2018-05-08 10:28] LABS: Absolute Lymphocyte Count 2.07 X10^3/ul (0.83-4.51); Absolute Neutrophil Count 13.7 X10^3/uL (2.0-7.7); Basophil# 0.02 X10^3/uL; Basophil% 0.1 % (0-1); Eosinophil# 0.24 X10^3/uL; Eosinophils% 1.4 % (0-5); Hematocrit 42.5 % (37-47); Lymphocyte # 2.07 X10^3/ul (4.0); Lymphocyte % 12.1 % (19-41); Mean Corp Hgb Conc 35.3 g/gl (32-36); Mean Corpuscular Hgb 30.8 pg (27.0-32.0); Mean Corpuscular Volume 87.3 fL (81-99); Mean Platelet Vol. 9.8 fl (6.2-12.0); Monocyte# 0.97 X10^3/uL; Monocyte% 5.7 % (0-10); Neutrophil # 13.74 X10^3/uL (2.7-7.7); Neutrophil % 80.5 % (47-70); POSITIVE COUNT NO; POSITIVE DIFFERENTIAL NO; POSITIVE MORPHOLOGY NO; Platelet Count 313 K/mm3 (150-450); RBC Distribution Width CV 14.2 % (11.6-14.6); RBC Distribution Width SD 45.3 fl (35.1-43.9); Red Blood Count 4.87 M/mm3 (4.2-5.4); White Blood Count 17.1 K/mm3 (4.4-11.0)
[2018-05-08 10:40] LABS: AST(SGOT) 55 U/L (15-37); Alanine Aminotransfer ALT/SGPT 69 U/L (13-56); Albumin, Serum 4.4 g/dL (3.2-5.0); Alkaline Phosphatase 144 U/L (45-117); Anion Gap 5 (5-15); BUN 25 mg/dL (7-18); BUN/Creat Ratio 28.1 RATIO (10-20); Calcium,Total 9.5 mg/dL (8.5-10.1); Chloride 102 mmol/L (98-107); Creatinine, Serum 0.89 mg/dL (0.55-1.02); EST Glomerular Filtration Rate 71 mL/min (>60); Est Glom Filt Rate - Afr Amer 86 mL/min (>60); Globulin 4.3 g/dL (2.2-4.2); Glucose 86 mg/dL (74-106); Potassium 3.4 mmol/L (3.5-5.1); Protein, Total 8.7 g/dL (6.4-8.2); Sodium Level 135 mmol/L (136-145)
[2018-05-08 10:42] LABS: International Normalized Ratio 2.1; Prothrombin Time (Protime)PT. 23.1 SECONDS (11.7-14.9)
[2018-05-08 13:51] LABS: Lipase 117 U/L (73-393)
== END ==
PROVIDERS: Family Provider Family Medicine; PCP Family Medicine; Visit Provider Family Medicine
DX: R07.9 Chest pain, unspecified (principal); R11.0 Nausea
CPT/HCPCS: 36415; 80053; 83690; 84484; 85025; 85610

== ENCOUNTER → 2018-06-05 17:23 | Outpatient (CLI) | payer BC, SELFPAY ==
[2018-04-07 11:02] VITALS: BMI 25.9
== END ==
PROVIDERS: Family Provider Family Medicine; PCP Family Medicine; Referring Provider Family Medicine; Visit Provider Family Medicine
DX: R19.7 Diarrhea, unspecified (principal); Z20.9 Contact with and (suspected) exposure to unspecified communicable disease
CPT/HCPCS: 87493; 87506

== ENCOUNTER → 2018-06-09 14:07 | Outpatient (CLI) | payer BC, SELFPAY ==
[2018-04-07 11:02] VITALS: BMI 25.9
--- NOTE | 2018-06-09 14:13 | CT_ITS ---
STUDY: CT ABDOMEN AND PELVIS WITHOUT CONTRAST REASON FOR EXAM: Female, 52 years old. Left lower quadrant pain RADIATION DOSAGE (If Supplied By Facility): CTDIvol = ( 6.68 ) mGy, DLP = ( 328.82 ) mGycm TECHNIQUE: Transaxial images were obtained from the dome of the diaphragm to the symphysis pubis with oral contrast, and without intravenous contrast. Sagittal and coronal images were reconstructed. Individualized dose optimization techniques were used for this CT. COMPARISON: None. FINDINGS: The visualized lung bases are unremarkable. Remote CABG, pacer leads seen along the base of the heart. Normal liver. There are surgical clips in the gallbladder fossa consistent with a prior cholecystectomy. Normal spleen. Normal pancreas. Normal bilateral adrenal glands. Normal right kidney. Normal left kidney. Postsurgical changes noted in the stomach. There is a retrocardiac hiatal hernia. Normal small intestine. Normal colon. There is non-visualization of the appendix. Normal abdominal aorta. Normal inferior vena cava. Normal retroperitoneum. Normal urinary bladder. Normal abdominal wall. Normal osseous structures, surgical hardware in the left femur free of complication. CT/Abdomen/Pelvis without Cont IMPRESSION: No suspicious solid organ abnormality, previous cholecystectomy No CT evidence of an acute inflammatory process No free intraperitoneal fluid, air, or suspicious adenopathy Electronically Signed: Zachariah Lara MD at 15:18 EDT , Service support ,
== END ==
PROVIDERS: Family Provider Family Medicine; PCP Family Medicine; Referring Provider Family Medicine; Visit Provider Family Medicine
DX: R10.9 Unspecified abdominal pain (principal); R19.7 Diarrhea, unspecified
CPT/HCPCS: 74176

== ENCOUNTER → 2018-06-12 07:51 | Outpatient (CLI) | payer BC, SELFPAY ==
[2018-04-07 11:02] VITALS: BMI 25.9
[2018-06-12 08:06] LABS: INR Fingerstick > 6.00; Prothrombin Time Fingerstick 64.9 SEC (11.9-14.4)
== END ==
PROVIDERS: Family Provider Family Medicine; PCP Family Medicine; Visit Provider Internal Medicine Cardiovascular Disease
DX: Z79.01 Long term (current) use of anticoagulants (principal); Z95.4 Presence of other heart-valve replacement
CPT/HCPCS: 36416; 85610

== ENCOUNTER → 2018-06-22 12:05 | Outpatient (CLI) | payer BC, SELFPAY ==
[2018-04-07 11:02] VITALS: BMI 25.9
--- NOTE | 2018-06-22 12:07 | BI_ITS ---
MAMMOGRAPHY - BILATERAL SCREENING REASON FOR EXAM: Female, 53 years old. Routine annual screening examination. PERTINENT HISTORY: Non-contributory. TECHNIQUE: Digital bilateral breast doug (3D mammographic acquisition) in the CC and MLO projections. 2-D mediolateral oblique (MLO) and craniocaudad (CC) views of both breasts were obtained. CAD: Full Field Digital Mammography with Computer Added Detection was performed. COMPARISON: Comparison is made with prior study dated June 02, 2017 and September 29, 2015. FINDINGS: Breast Composition: There are scattered areas of fibroglandular density. There are no dominant masses or suspicious calcifications. No other significant abnormalities are identified. There has been no significant change since the prior study. BI/SCREENING MAMM (CAD), BILAT IMPRESSION: Stable bilateral screening mammogram. Yearly follow-up mammogram recommended. (A) ASSESSMENT CATEGORY: BIRADS Category 1: Negative. A letter regarding these results will be sent to the patient by the facility within 30 days. Approximately 10% of breast cancers are not detected by mammography. A normal mammogram should not delay biopsy of a clinically suspicious abnormality. [id number] Electronically Signed: Ludwin Hernandes, at 13:47 EDT , Service support ,
== END ==
PROVIDERS: Family Provider Family Medicine; PCP Family Medicine; Referring Provider Family Medicine; Visit Provider Family Medicine
DX: Z12.31 Encounter for screening mammogram for malignant neoplasm of breast (principal)
CPT/HCPCS: 77063; 77067

== ENCOUNTER → 2018-07-07 13:06 | Outpatient (CLI) | payer BC, SELFPAY ==
[2018-04-07 11:02] VITALS: BMI 25.9
[2018-07-07 13:59] LABS: International Normalized Ratio 4.3
== END ==
PROVIDERS: Family Provider Family Medicine; PCP Family Medicine; Visit Provider Internal Medicine Cardiovascular Disease
DX: Z79.01 Long term (current) use of anticoagulants (principal); Z95.4 Presence of other heart-valve replacement
CPT/HCPCS: 36415; 85610

== ENCOUNTER 2018-08-26 15:11 | Emergency (ER) | payer BC, SELFPAY ==
[2018-04-07 11:02] VITALS: BMI 25.9
[2018-08-26 15:14] VITALS: BP 124/91; PULSE 91; RESP 18; TEMP 36.6; O2SAT 100; BMI 26.6
--- NOTE | 2018-08-26 15:45 | RAD_ITS ---
STUDY: X-RAY - PELVIS REASON FOR EXAM: Female, 53 years old. Left thigh pain. Large left thigh hematoma last year. History of femur fracture. TECHNIQUE: One view of the pelvis was obtained. COMPARISON: None. FINDINGS: Moderate amount of fecal contents in the colon suggesting constipation. Radiopaque clips in the region of both fallopian tubes. Normal bilateral iliac wings, sacroiliac joints and visualized sacrum. Normal visualized bilateral superior and inferior pubic rami. Normal pubic symphysis. Normal ischial tuberosities. Normal visualized right femoral head. Normal right acetabulum. Normal right hip joint. Intramedullary emilio extending from the base of the femoral neck down to the femoral shaft. Normal left femoral head. Normal left acetabulum. Normal left hip joint. RAD/Pelvis 1 or 2 Views IMPRESSION: No acute fracture or dislocation of the pelvis. Electronically Signed: Sharath Chua MD at 16:15 EDT , Service support ,
--- NOTE | 2018-08-26 15:45 | RAD_ITS ---
STUDY: X-RAY - LEFT FEMUR REASON FOR STUDY: Female, 53 years old. Left thigh pain radiating to back. Fell . TECHNIQUE: 2 view(s) of the femur. COMPARISON: None. FINDINGS: Intramedullary emilio in the femoral shaft with transfixing screws. Old fracture deformity of the mid femoral shaft. No suspicious acute fracture or dislocation of the left femur. There is fracture deformity of the left proximal fibular shaft. Left knee radiographs will help clarify. Normal visualized soft tissue structure. RAD/Femur Min 2 Views IMPRESSION: 1. Old fracture deformity of the left mid femoral shaft. 2. No acute fracture or dislocation of the left femur and the intramedullary emilio. 3. Fracture deformity of the left proximal fibular shaft. Age is indeterminate. Dedicated radiographs of the left knee may be helpful for further evaluation. Electronically Signed: Sharath Chua MD at 16:13 EDT , Service support ,
--- NOTE | 2018-08-26 15:46 | ED.VISSUMM ---
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 She was hiking on lost her balance fell injuring her left thigh. No LOC did not hit her head. Since she is being stubborn able to be seen but just she is concerned now is a discomfort. She has had prior femur fracture. She also has had a significant hematoma in the past from bleeding from injury and being on Coumadin. She denies any other injuries or complaints. She did not hit her head. Physical Examination: General no acute distress vital signs stable and afebrile. H EENT exam unremarkable atraumatic. Nontender. Pupils are advised motions are intact. Normal speech. C-spine nontender. Trachea midline. Lungs clear to office bilaterally. Heart regular rhythm no murmur I do not appreciate a murmur at this time. Chest wall nontender. Abdomen soft nontender. Extremities moves all 4. Neurovascular intact. She has a fasciotomy incision on left lateral side of thigh. It is well closed well-healed. She has full flexion-extension of both hips knees ankle and feet. No shortening or external rotation. Her left foot is normal dorsi plantarflexion. Normal pulses normal range of motion intact sensation. There are no gross bony deformities. At this time there is no significant signs of a hematoma and no signs of compartment syndrome. Is awake alert with no focal motor deficits. Test Results: Femur x-ray of the left leg shows no acute injury. Prior femoral emilio. There is also irregularity of proximal fibula which is old. She is not having any pain or symptoms in that area. She is tender to palpation in that area. Left hip x-ray no acute abnormality. Both films are read both by myself and the radiologist. Emergency Department Course and Treatment: Patient with fall and pain on Coumadin INR 2.9 yesterday. I do not feel the need to be repeated. At this time his dizziness and signs of hematoma. There is no swelling or bruising. I am obtaining x-rays. Exam patient is doing well at 1644. There is no signs of a developing hematoma of her thigh and definitely no signs of expanding hematoma nor any compartment syndrome. She will ice the leg and follow-up if not improving return Treatment Plan: Ice. Tylenol for pain. Return if worse or follow-up if not improving. Disposition: Discharge Impression: Fall with left thigh muscle skeletal pain ( thigh contusion) Anticoagulated on Coumadin History of prosthetic valve This note was generated with [employer] dictation software. It may contain incorrect words, spelling, and punctuation that were not noted in review of the chart prior to signing ED Disposition - Plan for ED Patient: Referrals: Miya Goldman DO [Primary Care Provider] -
--- NOTE | 2018-08-26 16:46 | ED.DEP ---
ED Disposition - Plan for ED Patient: Disposition: Home or Assisted Living Instructions: CONTUSION, Lower Extremity Referrals: Miya Goldman DO [Primary Care Provider] - 3-5 Days if not improving Additional Instructions: Ice to the leg. Tylenol for pain. Follow-up with your doctor if not improving. At this time the x-ray showed no acute broken bones. Your femoral emilio from the prior fracture looks good. And there is no signs of an expanding or large hematoma. This could develop with time just need to observe your leg and make sure the pain is not getting worse or is not swelling a lot worse.
[2018-08-26 16:55] VITALS: PULSE 88; RESP 16; O2SAT 97
== END 2018-08-26 16:56 | disposition home or self-care (01) ==
PROVIDERS: Emergency Provider Emergency Medicine; Family Provider Family Medicine; PCP Family Medicine
DX: S70.12XA Contusion of left thigh, initial encounter (principal); Z95.2 Presence of prosthetic heart valve; Z79.01 Long term (current) use of anticoagulants; W19.XXXA Unspecified fall, initial encounter; Y93.01 Activity, walking, marching and hiking; Y92.9 Unspecified place or not applicable; Z86.79 Personal history of other diseases of the circulatory system; Z79.899 Other long term (current) drug therapy
CPT/HCPCS: 72170; 73552; 99282

== ENCOUNTER → 2018-08-29 | Outpatient (CLI) | payer BC, SELFPAY ==
[2018-08-26 15:14] VITALS: BMI 26.6
--- NOTE | 2018-08-29 12:10 | RAD_ITS ---
STUDY: X-RAY - LEFT KNEE REASON FOR EXAM: Female, 53 years old. Trauma 5 days ago, history of femoral fracture 6 years ago TECHNIQUE: 4 view(s) of the knee. COMPARISON: None. FINDINGS: Intramedullary emilio is seen in the visualized distal femur. There is an old healed fracture of the distal left femoral shaft. Normal visualized proximal tibia and fibula. Normal proximal tibiofibular articulation. There is mild degenerative arthrosis of the medial femorotibial compartment. Normal lateral femorotibial compartment. Normal patellofemoral articulation. The soft tissue structures are unremarkable. RAD/Knee 4 or More Views IMPRESSION: Mild degenerative changes with joint space narrowing of the medial knee compartment. There is no evidence of acute fracture or dislocation. Intramedullary emilio seen in the visualized distal femur. Old healed fracture of the distal femoral shaft. Electronically Signed: Peter Loyola MD at 17:29 EDT , Service support ,
== END | disposition home or self-care (01) ==
LOC: MTRAD 12:08
PROVIDERS: Family Provider Family Medicine; PCP Family Medicine; Referring Provider Family Medicine; Visit Provider Family Medicine
DX: R93.7 Abnormal findings on diagnostic imaging of other parts of musculoskeletal system (principal); M25.562 Pain in left knee
CPT/HCPCS: 73564

== ENCOUNTER → 2018-09-04 16:48 | Outpatient (CLI) | payer BC, SELFPAY ==
[2018-08-26 15:14] VITALS: BMI 26.6
[2018-09-04 17:19] LABS: International Normalized Ratio 3.2; Prothrombin Time (Protime)PT. 32.8 SECONDS (11.7-14.9)
== END ==
PROVIDERS: Family Provider Family Medicine; PCP Family Medicine; Visit Provider Internal Medicine Cardiovascular Disease
DX: Z79.01 Long term (current) use of anticoagulants (principal); Z95.4 Presence of other heart-valve replacement
CPT/HCPCS: 36415; 85610

== ENCOUNTER → 2018-09-14 17:13 | Outpatient (CLI) | payer BC, SELFPAY ==
[2018-08-26 15:14] VITALS: BMI 26.6
--- NOTE | 2018-09-14 17:16 | RAD_ITS ---
STUDY: X-RAY - LUMBAR SPINE REASON FOR EXAM: Female, 53 years old. Pain TECHNIQUE: 5 view(s) of the lumbar spine were obtained. COMPARISON: None FINDINGS: Normal lumbar lordosis. There is no substantial scoliosis. Grade 1 spondylolisthesis at L5-S1. Normal vertebral bodies and endplates. Normal disc space heights. Postsurgical changes in right upper quadrant and bilaterally in the pelvic cavity RAD/L/S Spine Min 4 Views IMPRESSION: Grade 1 spondylolisthesis at L5-S1. No evidence for acute fracture or subluxation Electronically Signed: Melvin Domínguez MD at 21:16 EDT , Service support ,
--- NOTE | 2018-09-14 17:20 | RAD_ITS ---
STUDY: X-RAY - PELVIS AND LEFT HIP REASON FOR EXAM: Female, 53 years old. Left hip pain TECHNIQUE: 3 views of the pelvis and hip. COMPARISON: None. FINDINGS: There is a non-specific bowel gas pattern. Normal visualized soft tissue structures. Normal bilateral iliac wings, sacroiliac joints and visualized sacrum. Normal bilateral superior and inferior pubic rami. Normal pubic symphysis. Normal bilateral ischial tuberosities. Postop changes status post open reduction internal fixation of left femoral shaft fracture with fracture fragments in anatomic alignment and position Normal visualized femoral head. Normal acetabulum. Normal hip joint. RAD/HIP, UNI W/ Pelvis 2-3 Views IMPRESSION: Status post ORIF left femoral shaft fracture. No acute fracture or other significant bony pathology Electronically Signed: Melvin Domínguez MD at 21:19 EDT , Service support ,
== END ==
PROVIDERS: Family Provider Family Medicine; PCP Family Medicine; Referring Provider Family Medicine; Visit Provider Family Medicine
DX: M54.16 Radiculopathy, lumbar region (principal)
CPT/HCPCS: 72110; 73502

== ENCOUNTER 2018-10-02 11:53 | Outpatient (RCR) | payer BC, SELFPAY ==
--- NOTE | 2018-11-29 14:47 | HP.PT.NRP ---
HP - Discharge Summary (1) - Patient Information JOÃO MUJICA was seen in my office for initial evaluation on 10/02/18. The following Plan of Care was established for this patient: Initial Frequency: 1-2x /Week Initial Duration: 4 Weeks - Anticipated Interventions Patient/Client Instruction: Educate patient on: Condition, Plan of Care For the Purpose of:: To decrease pain, To improve muscle performance and motor function, To improve ability to perform ADL's, To increase tolerance to activity/condition/position, To improve ability of physical actions for home/community/work/leisure, To improve health of tissue, To decrease soft tissue restriction, To increase flexibility/ROM, To reduce risk of recurrence, To improve ability to perform tasks related to life management Therapeutic Exercise to Include: Strength training, Body mechanics, Postural training, Flexibilty training, Dynamic Lumbar Stabilization, Suman Exercises For the Purpose of:: To decrease pain, To increase ROM, To improve muscle performance and motor function, To improve ability to perform ADL's, To increase tolerance to activity/condition/position, To improve ability of physical actions for home/community/work/leisure, To improve health of tissue, To decrease soft tissue restriction, To increase flexibility/ROM, To reduce risk of recurrence, To improve ability to perform tasks related to life management TENS: Yes IF ES: Yes Cryotherapy (ice pack, ice massage): Yes Thermo therapy (hot pack): Yes Ultrasound (thermal/non thermal): Yes For the Purpose of:: To decrease pain, To improve nutrient delivery to tissue, To increase oxygenation perfusion, To improve health of tissue, To decrease soft tissue restriction This patient was last seen in our office . Pertinent comments regarding their Physical therapy will appear below: Patient was seen for PT for low back pain for HEP for DLS program At this point I will be discontinuing this patient from physical therapy. I would be happy to see this patient again in the future if found appropriate by the physician. Thank you! Jose L Calvert, PT, Cert MDT, OCS
== END 2018-10-02 19:00 | disposition home or self-care (01) ==
LOC: PT 11:53
PROVIDERS: Family Provider Family Medicine; PCP Family Medicine; Visit Provider Family Medicine
DX: M54.16 Radiculopathy, lumbar region (principal)
CPT/HCPCS: 97110; 97162

== ENCOUNTER → 2018-11-29 10:43 | Outpatient (CLI) | payer BC, SELFPAY ==
[2018-11-29 12:51] LABS: International Normalized Ratio 3.2; Prothrombin Time (Protime)PT. 33.2 SECONDS (11.7-14.9)
== END ==
PROVIDERS: Family Provider Family Medicine; PCP Family Medicine; Visit Provider Internal Medicine Cardiovascular Disease
DX: Z95.4 Presence of other heart-valve replacement (principal); Z79.01 Long term (current) use of anticoagulants
CPT/HCPCS: 36415; 85610

== ENCOUNTER → 2019-02-06 16:36 | Outpatient (CLI) | payer BC, SELFPAY ==
[2019-02-06 17:00] LABS: Prothrombin Time (Protime)PT. 53.9 SECONDS (11.7-14.9)
[2019-02-06 17:13] LABS: International Normalized Ratio 5.9
== END ==
PROVIDERS: Family Provider Family Medicine; PCP Family Medicine; Visit Provider Internal Medicine Cardiovascular Disease
DX: Z95.4 Presence of other heart-valve replacement (principal); Z79.01 Long term (current) use of anticoagulants
CPT/HCPCS: 85610

== ENCOUNTER → 2019-02-12 09:40 | Outpatient (CLI) | payer BC, SELFPAY ==
[2019-02-12 12:14] LABS: International Normalized Ratio 2.2; Prothrombin Time (Protime)PT. 24.5 SECONDS (11.7-14.9)
== END ==
PROVIDERS: Family Provider Family Medicine; PCP Family Medicine; Referring Provider Internal Medicine Cardiovascular Disease; Visit Provider Internal Medicine Cardiovascular Disease
DX: Z95.4 Presence of other heart-valve replacement (principal); Z79.01 Long term (current) use of anticoagulants
CPT/HCPCS: 36415; 85610

== ENCOUNTER 2019-04-09 11:52 | Observation (INO) | payer BC, SELFPAY ==
[2019-04-09] VITALS (10 sets, daily range): BP systolic 118–150; BP diastolic 59–91; PULSE 68–91; RESP 10–18; TEMP 36.7–36.8; O2SAT 96–100; BMI 28.0; BMI 27.3; BMI 27.4
--- NOTE | 2019-04-09 11:57 | EKG12_ITS ---
Test Reason : CP Blood Pressure : / mmHG Vent. Rate : 086 BPM Atrial Rate : 086 BPM P-R Int : 134 ms QRS Dur : 088 ms QT Int : 382 ms P-R-T Axes : 070 044 071 degrees QTc Int : 457 ms Normal sinus rhythm Normal ECG Confirmed by JANAY GUERIN, TANNER ([id number]), health editor MARIE PHILIPPE ([id number]) on 04/11/2019 1:48:33 PM Referred By: VIRGIL Confirmed By:TANNER GUSTAFSON MD
--- NOTE | 2019-04-09 11:57 | RAD_ITS ---
STUDY: X-RAY CHEST REASON FOR EXAM: Female, 53 years old. chest pain started this morning, getting worse -- h/o heart surgery 10 years ago TECHNIQUE: Single AP portable view of the chest. COMPARISON: December 09, 2017 FINDINGS: The lungs are clear and expanded. There is no demonstrated pleural abnormality. Sternal cerclage wires are present from a prior sternotomy. Stable prosthetic cardiac valve. Stable mediastinal and osseous structures. Right upper quadrant surgical clips are present. RAD/Chest 1 View (Portable) IMPRESSION: No acute process Electronically Signed: Jorge Arce MD at 12:41 EST , Service support ,
[2019-04-09 12:18] LABS: Prothrombin Time (Protime)PT. 39.1 SECONDS (11.7-14.9)
[2019-04-09 12:21] LABS: Absolute Lymphocyte Count 1.79 X10^3/uL (0.83-4.51); Absolute Neutrophil Count 9.5 X10^3/uL (2.0-7.7); Basophil# 0.04 X10^3/uL; Basophil% 0.3 % (0-1); Eosinophil# 0.15 X10^3/uL; Eosinophils% 1.2 % (0-5); Hematocrit 37.7 % (37-47); Hemoglobin 13.1 g/dL (12.0-15.0); Lymphocyte # 1.79 X10^3/ul (4.0); Lymphocyte % 14.8 % (19-41); Mean Corp Hgb Conc 34.7 g/dL (32-36); Mean Corpuscular Hgb 29.8 pg (27.0-32.0); Mean Corpuscular Volume 85.9 fL (81-99); Mean Platelet Vol. 9.8 fl (6.2-12.0); Monocyte# 0.63 X10^3/uL; Monocyte% 5.2 % (0-10); NRBC Flagged by Analyzer 0 % (0-5); Neutrophil # 9.47 X10^3/uL (2.7-7.7); Neutrophil % 78.2 % (47-70); Platelet Count 258 K/mm3 (150-450); RBC Distribution Width CV 12.7 % (11.6-14.6); RBC Distribution Width SD 39.6 fl (35.1-43.9); Red Blood Count 4.39 M/mm3 (4.2-5.4); White Blood Count 12.1 K/mm3 (4.4-11.0)
[2019-04-09 12:27] LABS: Anion Gap 4 (5-15); BUN 17 mg/dL (7-18); Calcium,Total 9.1 mg/dL (8.5-10.1); Chloride 104 mmol/L (98-107); Creatinine, Serum 0.85 mg/dL (0.55-1.02); EST Glomerular Filtration Rate 74 mL/min (>60); Est Glom Filt Rate - Afr Amer 90 mL/min (>60); Glucose 92 mg/dL (74-106); Potassium 3.8 mmol/L (3.5-5.1); Sodium Level 139 mmol/L (136-145)
--- NOTE | 2019-04-09 12:38 | CT_ITS ---
STUDY: CTA CHEST REASON FOR EXAM: Female, 53 years old. R/O DISSECTION, CP SINCE 2 AM RADIATION DOSAGE (If Supplied By Facility): CTDIvol = ( 8.95 ) mGy, DLP = ( 331.62 ) mGycm TECHNIQUE: The examination was performed with the intravenous administration of IV 100mL Isovue-370. Post-processing of the angiographic images was performed, with multiplanar reformation and 3D reconstruction. Individualized dose optimization techniques were used for this CT. COMPARISON: Chest x-ray dated April 09, 2019 FINDINGS: Normal enhancement of the main pulmonary artery and right and left pulmonary arteries. Normal enhancement of the bilateral peripheral pulmonary arteries. There is no demonstrated pulmonary embolism. Normal thoracic aorta and visualized great vessels. There is no demonstrated aortic dissection. Sternal cerclage wires and vascular clips are present from a prior sternotomy and coronary artery bypass graft procedure (CABG). Normal heart size. Normal mediastinum. Normal hilar regions. Normal visualized trachea and bronchi. The lungs are well expanded. Mild mild tree-in-bud nodularity and edema is present in the mid and lower aspect of the left upper lobe likely representing developing consolidation or pulmonary edema. No pleural effusion is present. Normal pleura. Normal chest wall structures. There are degenerative changes of thoracic spine. Normal visualized upper abdomen. CT/CTA Chest W/WO Contrast IMPRESSION: 1. Mild mild tree-in-bud nodularity and edema is present in the mid and lower aspect of the left upper lobe likely representing developing consolidation or pulmonary edema. 2. No demonstrated pulmonary embolism or arterial dissection. Electronically Signed: Jorge Arce MD at 14:29 EST , Service support ,
--- NOTE | 2019-04-09 12:44 | ED.VISSUMM ---
- ER Visit Summary Date of Service: 04/09/19 Chief Complaint: Chest pain History of Present Illness: The patient is a 53 F presenting with chest pain and back pain. She states this started around 2 AM. Pain has been intermittent. She states she has not been feeling well and has been nauseated. She has had a mild cough. She complains of chest and back pain. She called her primary care physician today for an appointment. She called back stating that she was feeling worse and they called EMS to bring her to the emergency department. Physical Examination: Vitals are stable. Patient is afebrile. Alert no acute distress. HEENT exam is unremarkable. Neck is supple. Lungs are clear and equal bilaterally. Heart is regular rate and rhythm. Abdomen is soft nontender nondistended. Extremities are unremarkable. Skin is warm and dry. No focal neurologic deficit. Remainder of exam is unremarkable. Emergency Department Course and Treatment: EKG sinus rhythm rate of 86 with no acute ischemic changes. CBC shows white count 12.1. Chemistries unremarkable. INR 4.0. Troponin is negative. CTA chest shows mild tree-in-bud nodularity and edema is present in the mid and lower aspect of the left upper lobe likely representing developing consolidation or pulmonary edema. No demonstrated pulmonary embolism or arterial dissection. Patient only complains of mild cough. She has had no fever. Her chest pain has improved on reevaluation. Discussed with the hospitalist for admission. Disposition: Observation Impression: Chest pain This note was generated with [employer] dictation software. It may contain incorrect words, spelling, and punctuation that were not noted in review of the chart prior to signing ED Disposition - Plan for ED Patient:
[2019-04-09] MEDS: Aspirin 325 MG Tablet PO (13:31)
[2019-04-09] MEDS: Ondansetron 4 MG/2 ML Vial IV (13:33)
[2019-04-09] MEDS: Morphine 4 MG/ML Syringe IV (13:33)
--- NOTE | 2019-04-09 15:07 | HP.PCM_ITS ---
Problem List (1) Chest pain Status: Acute Qualifiers: Chest pain type: unspecified Qualified Code(s): R07.9 - Chest pain, unspecified (2) GERD (gastroesophageal reflux disease) Status: Chronic Qualifiers: Esophagitis presence: esophagitis presence not specified Qualified Code(s): K21.9 - Gastro-esophageal reflux disease without esophagitis (3) Menopausal disorder Status: Chronic (4) Thoracic aortic aneurysm Status: Chronic Qualifiers: Presence of rupture: without rupture Qualified Code(s): I71.2 - Thoracic aortic aneurysm, without rupture (5) History of aortic valve replacement with metallic valve Status: Chronic Comment: 21mm St. Ten Valved conduit 05/28/09 (6) Bicuspid aortic valve Status: Chronic (7) Hyperlipidemia Status: Chronic Qualifiers: Hyperlipidemia type: unspecified Qualified Code(s): E78.5 - Hyperlipidemia, unspecified (8) Hypertension Status: Chronic Qualifiers: Hypertension type: essential hypertension Qualified Code(s): I10 - Essential (primary) hypertension History of Present Illness Date of Admission: 04/09/19 Chief Complaint: Chest pain The patient is a 53 y/o F w/ PMHx: HTN, HLD, Bicuspid aortic valve with endocarditis s/p AVR with [address] Ten Valved conduit 05/28/09 as well as Thoracic aortic root aneurysm s/p repair concurrently, GERD who presents to the [facility] ED on 04/09/19 with history of onset of chest tightness, squeezing awakening her from sleep at approximately 2 AM, ongoing since initial onset with associated nausea, occasional emesis with radiation of the discomfort initially across her chest, upper region bilaterally into her upper back eventually radiating down to her lower back admittedly worse with palpation or certain movements with pain rated 7 out of 10 in severity in her chest with initial onset although currently chest discomfort has resolved per her report but back discomfort still ongoing and now primarily in the paraspinous lumbar region rated 7 out of 10 in severity. She denied any concurrent dyspnea or diaphoresis with onset. In the ED pain is reproducible with palpation of the paraspinous region bilaterally, left greater than right with no history of recent dysuria, frequency. She denies any recent significant upper respiratory infections only noting a mild runny nose but no fevers, chills, market cough, dyspnea complaints. Work-up in the ED included T 98.2, heart rate 91, BP 139/91 but did increase to 150/84 while in the ED, respiratory rate 18, 99% on room air, CBC with WC 12.1, hemoglobin 13.1, platelet 250 with left shift, INR 4.0 noting that she does frequently have difficulties controlling her INR and does have a history of a left lower extremity hematoma as result of a supratherapeutic INR, unremarkable BMP, troponin less than 0.015, EKG was sinus rhythm with no acute evidence of ischemia, chest x-ray with no acute cardiopulmonary findings, CTPA with a mild tree-in-bud nodularity present in the mid and lower aspect of the left upper lobe possibly secondary to developing pneumonia, no demonstrated pulmonary embolism or arterial dissection. In the ED patient administered normal saline, Zofran, morphine, aspirin 325 mg p.o. x1. 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 Ten Valved conduit 05/28/09 Bicuspid aortic valve (Chronic) Hyperlipidemia (Chronic) Hypertension (Chronic) Medical History: Medical History (Last Reviewed 04/07/18 @ 10:19 by Kandice Schumacher) Thoracic aortic aneurysm (Chronic) I71.2 Nonrheumatic aortic (valve) insufficiency (Resolved) I35.1 Bicuspid aortic valve (Chronic) Q23.1 Hyperlipidemia (Chronic) E78.5 Hypertension (Chronic) I10 Abnormal Pap smear of cervix R87.619 History of malignant neoplasm of cervix Z85.41 GERD (gastroesophageal reflux disease) K21.9 Allergies fluoxetine Allergy (Mild, Verified 04/09/19 12:02) Other head ache gabapentin Allergy (Mild, Verified 04/09/19 12:02) Abd cramps/diarrhea venlafaxine Allergy (Mild, Verified 04/09/19 12:02) Pain in joints tramadol Adverse Reaction (Verified 04/09/19 12:02) Nausea Home Medications: Ambulatory Orders Medication Instructions Recorded Estradiol [Estrace (G)] 1 mg PO DAILY 04/09/19 Warfarin Sodium [Coumadin] 5 mg PO DAILY 04/09/19 Surgical History: Surgical History (Last Reviewed 04/07/18 @ 10:19 by Kandice Schumacher) History of aortic valve replacement with metallic valve (Chronic) Onset Date: ~05/28/[address] Ten Valved conduit 05/28/09 Mechanical heart valve present Z95.2 femur surgery delivery delivered O82 History of thoracic aortic aneurysm repair Onset Date: ~05/28/09 Z98.890, Z86.79 Hx of abdominal hysterectomy Z90.710 Hx of cholecystectomy Z90.49 S/P gastroplasty Z98.890 Status post aortic valve replacement Onset Date: ~05/28/09 Z95.2 Surgical History: cholecystectomy, hysterectomy, - - 05/28/2009 aortic valve replacement and aortic root repair with a 21 mm [place] mechanical aortic valve/root conduit, cholecystectomy, hysterectomy with unilateral oophorectomy and salpingectomy, tonsillectomy. 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 Review of Systems Constitutional: Denies: Anorexia, Chills, Fever, Malaise, Weakness, Weight Change, Fatigue HEENT: Reports: - - Mild rhinorrhea. Denies: Head Aches, Nasal Congestion, Sinus Congestion, Sinus Drainage Cardiovascular: Reports: Chest Tightness. Denies: Chest Pain, Chest Pressure, Heaviness, Light Headedness, Orthopnea, Palpitations, Syncope Respiratory: Reports: Cough. Denies: Shortness of Breath, Shortness of breath at rest, Shortness of breath upon exertion, Sputum production, Wheezing Gastrointestinal: Reports: Nausea, Vomiting. Denies: Abdominal Pain Genitourinary: Denies: Dysuria Musculoskeletal: Reports: Back Pain. Denies: Joint Pain, Joint Tenderness Skin: Denies: Rash, Wounds Neurological: Denies: Numbness, Tingling, Focal weakness Psychiatric: Denies: Anxiety, Depression, Homicidal Ideations, Suicidal Ideations Hematologic/ Lymphatic: Reports: Easy Bruising, Easy Bleeding VTE Information - Inpt Only VTE Present on Admission: No VTE Mechan Device Prophylaxis: SCD's VTE Pharm Prophylaxis ordered?: No Reason prophylaxis not ordered:: Treatment Not Indicated - Supratherapeutic INR, 4.0 upon presentation with Coumadin. Patient Problems: Active and Suspected Problems (Last Reviewed 04/07/18 @ 10:19 by Kandice Schumacher) Chest pain (Acute) Subjective: Seated upright in ED bed, no acute distress, notes chest discomfort has resolved and now noting only paraspinous lumbar region discomfort. Objective: Physical Examination: General: awake, alert, oriented x 3 and cooperative, seated upright in the ED bed in no apparent distress. Skin: normal color, turgor, no icterus, cyanosis. HEENT: AT/NC, EOMI, PERRLA, MMM, no carotid bruits or JVD noted. Lungs: CTA bilaterally, moderate effort, moderate decrease BL bases, no rales, ronchi or wheezing. Heart: Regular rate and rhythm; no gallop, rub audible, SM/click/mechanical valve. Abdomen: soft, overweight, NTTP, ND, normal BS, no HSM. Extremities: no cyanosis, clubbing, or edema, paraspinous lumbar region bilateral, left greater than right discomfort with palpation. Neurological: patient awake, alert, oriented x 3; cognitive function intact; pupils equally reactive to light and accomodation; cranial nerves II-XII grossly normal, moving all 4 extremities, no focal deficits, strength mildly global decrease secondary to acute presentation and complaints. Psychiatric: affect appears mildly fatigued otherwise normal, no acute evidence of depressive or anxiety feelings. - Physical Exam Vitals/I&O's: Vital Signs Temp Pulse Resp BP Pulse Ox 98.2 F 85 16 150/84 H 98 04/09/19 11:53 04/09/19 15:03 04/09/19 15:03 04/09/19 15:03 04/09/19 15:03 Oxygen Flow Rate (L/min) 2 Oxygen Delivery Method Room Air Weight: 163 lb 2.273 oz Body Mass Index (BMI) 28.0 Laboratory Results 04/09/19 12:00: WBC 12.1 H, RBC 4.39, Hgb 13.1, Hct 37.7, MCV 85.9, MCH 29.8, MCHC 34.7, RDW Std Deviation 39.6, RDW Coeff of Peterson 12.7, Plt Count 258, MPV 9.8, Immature Gran % (Auto) 0.300, Neut % (Auto) 78.2 H, Lymph % (Auto) 14.8 L, [place] % (Auto) 5.2, Eos % (Auto) 1.2, Baso % (Auto) 0.3, Absolute Neuts (auto) 9.5 H, Absolute Lymphs (auto) 1.79, Nucleated RBC % 0 04/09/19 12:00: PT 39.1 H, INR 4.0 H* 04/09/19 12:00: Sodium 139, Potassium 3.8, Chloride 104, Carbon Dioxide 31.0, Anion Gap 4 L, BUN 17, Creatinine 0.85, Estim Creat Clear Calc 66.10, Est GFR (MDRD) Af Amer 90, Est GFR (MDRD) Non-Af 74, BUN/Creatinine Ratio 20.0, Glucose 92, Calcium 9.1, Troponin I < 0.015 Assessment/Plan All Active Problems (Last Reviewed 04/07/18 @ 10:19 by Kandice Schumacher) Abnormal echocardiogram (Acute) Chest pain (Acute) Fall (Acute) Open wound of left hip and thigh with complication (Acute) Traumatic hematoma of left thigh (Acute) Screen for colon cancer (Acute) Nonrheumatic aortic (valve) insufficiency (Resolved) The patient is a 53 y/o F w/ PMHx: HTN, HLD, Bicuspid aortic valve with endocarditis s/p AVR with [address] Ten Valved conduit 05/28/09 as well as Thoracic aortic root aneurysm s/p repair concurrently, GERD who presents to the [facility] ED on 04/09/19 with history of onset of chest tightness, squeezing awakening her from sleep at approximately 2 AM, ongoing since initial onset with associated nausea, occasional emesis with radiation of the discomfort initially across her chest, upper region bilaterally into her upper back eventually radiating down to her lower back admittedly worse with palpation or certain movements. 1. Chest pain, unclear specific etiology, possibly #2: EKG in ED sinus rhythm with no acute evidence of ischemia, chest x-ray with no acute cardiopulmonary findings, CTPA with a mild tree-in-bud nodularity present in the mid and lower aspect of the left upper lobe possibly secondary to developing pneumonia, no demonstrated pulmonary embolism or arterial dissection, initial trop normal x 1. Will admit to PCU, place on a monitored bed to assure no acute myocardial infarction with serial cardiac enzymes and EKGs. If repeat assessment with #2 not marked and if cardiac enzymes and repeat EKGs remain unremarkable will pursue cardiac stress testing in a.m. ASA, NG, morphine. 2. Left lateral flank pain with abnormal CTPA, ? Developing pneumonia: Patient with mild WBC elevation with left shift, significant discomfort with palpation of the left lateral flank with no urinary symptom complaints, only noted URI complaint of rhinorrhea and states that she has had a cough but attributes this to reflux and states that is unchanged. As noted we will continue work-up #1, maintain on IV fluids, will plan repeat chest x-ray in a.m. following hydration, pending repeat CXR will initiate IV Rocephin and azithromycin, and obtain urine antigens as well as sputum culture and respiratory viral panel, de-escalate if no development concerning findings or remarkable labs. UA pending. 3. Elevated blood pressure with prior hypertensive diagnosis, not on regimen: Patient with elevated BP while in the ED, not currently on regimen, prior noted history of hypertension, will continue to monitor and if appropriate initiate oral regimen, in interim maintain on PRN IV hydralazine. 4. Hyperlipidemia: Previously noted in history, not on regimen, will obtain FLP in AM. 5. Valvular heart disease, Thoracic Aortic Disease: Hx Bicuspid aortic valve with endocarditis s/p AVR with [address] Ten Valved conduit 05/28/09 as well as Thoracic aortic root aneurysm s/p repair concurrently, admission INR 4.0, will temporarily hold, repeat INR in AM, restart if appropriate, goal 2.5-3.5. 6. GERD: Notes ongoing, chronic cough which she associates with this, will initiate famotidine and continue to assess. 7. DVT prophylaxis: Holding Coumadin as noted with supratherapeutic INR, repeat INR level in a.m., resume if appropriate. Code Visit OBSV E&M: [id number] Initial observation care L3
--- NOTE | 2019-04-09 16:16 | EKG12_ITS ---
Test Reason : Blood Pressure : / mmHG Vent. Rate : 072 BPM Atrial Rate : 072 BPM P-R Int : 134 ms QRS Dur : 094 ms QT Int : 432 ms P-R-T Axes : 041 048 066 degrees QTc Int : 473 ms Normal sinus rhythm Normal ECG Confirmed by JANAY GUERIN, TANNER ([id number]), publication editor MARIE PHILIPPE ([id number]) on 04/11/2019 2:02:46 PM Referred By: IVAN Confirmed By:TANNER GUSTAFSON MD
[2019-04-09 16:43] LABS: Magnesium 1.9 mg/dL (1.6-2.6)
[2019-04-09] MEDS: Famotidine 20 MG Tablet PO ×2 (16:44→21:20)
[2019-04-09] MEDS: Acetaminophen 325 MG Tablet 650 MG PO (16:44)
[2019-04-09] MEDS: 0.9% Saline Lock 10 ML Syringe IV ×2 (16:52→21:26)
[2019-04-09] MEDS: 0.9% Normal Saline 1,000 ML 125 ML IV (16:52)
[2019-04-09] MEDS: Ceftriaxone 1 GM/50 ML BAG IV (16:57)
[2019-04-09 17:16] LABS: Mucous, Urine 0 SEEN /hpf (<or=2+); Red Blood Cells-Urine 0 SEEN /hpf (0-5); White Blood Cells 0 SEEN /hpf (0-5)
[2019-04-09 17:30] LABS: Color, Urine Yellow (Yellow); Glucose, Dipstick Normal (Normal); Ketone-Dipstick Negative (Negative); Leukocyte Esterase-Dipstick Negative /ul (Negative); Nitrite-Dipstick Negative (Negative); Occult Blood-Urine 25 /ul (Negative); Protein-Dipstick Negative (Negative); Specific Gravity, Urine 1.015 (1.002-1.030); Urine Bilirubin Dipstick Negative (Negative); Urine Clarity Sl. Cloudy (Clear); Urine Urobilinogen Normal (Normal)
[2019-04-09 18:04] LABS: Squamous Epithelial Cells - UA 0-5 SEEN /hpf (5-10)
[2019-04-09 18:05] LABS: Amorphous Sediment 2+; Bacteria 1+ /hpf (None Seen)
[2019-04-09] MEDS: Morphine 2 MG/ML Syringe IV (21:26)
[2019-04-10] MEDS: 0.9% Normal Saline 1,000 ML 125 ML IV (02:28)
[2019-04-10 03:00] VITALS: PULSE 68
[2019-04-10 03:21] VITALS: BP 117/58; PULSE 65; RESP 10; TEMP 35.8; O2SAT 96
[2019-04-10] MEDS: Morphine 2 MG/ML Syringe IV (03:27)
[2019-04-10] MEDS: 0.9% Saline Lock 10 ML Syringe IV (03:28)
[2019-04-10] MEDS: Acetaminophen 325 MG Tablet 650 MG PO (03:28)
[2019-04-10 06:03] LABS: Absolute Lymphocyte Count 1.68 X10^3/uL (0.83-4.51); Absolute Neutrophil Count 2.9 X10^3/uL (2.0-7.7); Basophil# 0.03 X10^3/uL; Basophil% 0.6 % (0-1); Eosinophils% 5.6 % (0-5); Hemoglobin 11.8 g/dL (12.0-15.0); Lymphocyte # 1.68 X10^3/ul (4.0); Lymphocyte % 31.6 % (19-41); Mean Corp Hgb Conc 34.7 g/dL (32-36); Mean Corpuscular Hgb 30.3 pg (27.0-32.0); Mean Corpuscular Volume 87.2 fL (81-99); Mean Platelet Vol. 9.8 fl (6.2-12.0); Monocyte# 0.43 X10^3/uL; Monocyte% 8.1 % (0-10); NRBC Flagged by Analyzer 0 % (0-5); Neutrophil # 2.86 X10^3/uL (2.7-7.7); Neutrophil % 53.9 % (47-70); Platelet Count 203 K/mm3 (150-450); RBC Distribution Width SD 40.8 fl (35.1-43.9); White Blood Count 5.3 K/mm3 (4.4-11.0)
[2019-04-10 06:14] LABS: Prothrombin Time (Protime)PT. 44.2 SECONDS (11.7-14.9)
[2019-04-10 06:15] LABS: International Normalized Ratio 4.6
[2019-04-10] MEDS: Aspirin E.C. 81 MG Tablet PO (06:16)
[2019-04-10 06:36] LABS: Anion Gap 5 (5-15); BUN 11 mg/dL (7-18); BUN/Creat Ratio 16.7 RATIO (10-20); Calcium,Total 7.7 mg/dL (8.5-10.1); Chloride 110 mmol/L (98-107); Cholesterol 176 mg/dL (200); Creatinine, Serum 0.66 mg/dL (0.55-1.02); EST Glomerular Filtration Rate 99 mL/min (>60); Est Glom Filt Rate - Afr Amer 120 mL/min (>60); Estimated Creatinine Clearance 85.12 ml/min; Glucose 77 mg/dL (74-106); High Density Lipoprotein 44 mg/dL; Potassium 3.5 mmol/L (3.5-5.1); Sodium Level 141 mmol/L (136-145); Triglycerides 159 mg/dL; Very Low Density Lipoprotein 32 mg/dL (5-40)
[2019-04-10 07:00] VITALS: PULSE 65
[2019-04-10 07:19] VITALS: O2SAT 99
--- NOTE | 2019-04-10 09:20 | RAD_ITS ---
STUDY: X-RAY CHEST REASON FOR EXAM: Female, 53 years old. CHEST PAIN -- PNA TECHNIQUE: PA and lateral views of the chest. COMPARISON: April 09, 2019 FINDINGS: The lungs are clear and expanded. There is no demonstrated pleural abnormality. Sternal cerclage wires and vascular clips are present from a prior sternotomy and coronary artery bypass graft procedure (CABG). Stable prosthetic cardiac valve position. Normal heart size. Stable osseous and mediastinal structures. RAD/Chest PA and Lateral IMPRESSION: No acute process Electronically Signed: Jorge Arec MD at 12:11 EST , Service support ,
[2019-04-10 09:35] VITALS: BP 122/63; PULSE 78; RESP 16; TEMP 36.7; O2SAT 98
[2019-04-10] MEDS: Ceftriaxone 1 GM/50 ML BAG IV (09:37)
--- NOTE | 2019-04-10 09:38 | STRESSREP_ITS ---
Stress Test Report Date: 04-10-2019 Procedure: Exercise tolerance test/imaging study Indications: Chest pain; status post AVR Consent: Per the patient Procedure: The patient exercised on a [place] protocol for 10 minutes and 30 seconds completing Stage III in 1 minute and 30 seconds of Stage IV achieving a peak heart rate of 151 bpm (90 % predicted maximal heart rate) with a peak blood pressure 158/70 mmHg and a peak MET capacity of 12 METs. The baseline ECG demonstrated normal sinus rhythm. The peak exercise ECG demonstrated somatic/motion artifact with no obvious ECG changes. There were rare PACs and PVCs during exercise. The functional capacity was considered good. There was there was no complaint of chest discomfort during exercise or re covery. The examination was discontinued secondary to back discomfort. Impression: 1. Technically adequate (percent predicted maximal heart rate greater than 85%) exercise tolerance test 2. Peak exercise ECG with somatic/motion artifact with no obvious ECG changes 3. There were rare PACs and PVCs during exercise 4. Nuclear images pending Myocardial perfusion imaging study: Technique: The patient was injected with 12.0 mCi of technetium 99m Cardiolite and subsequently rest SPECT Cardiolite nuclear imaging was obtained in the horizontal long, vertical long, and short axis views. The patient exercised on a [place] protocol for 10 minutes and 30 seconds completing Stage III in 1 minute and 30 seconds of Stage IV achieving a peak heart rate of 151 bpm (90 % predicted maximal heart rate) with a peak blood pressure 158/70 mmHg and a peak MET capacity of 12 METs. The patient was injected with 33.2 mCi of technetium 99m Cardiolite and subsequently stress SPECT Cardiolite nuclear imaging was obtained in the horizontal long, vertical long, and short axis views. A gated Cardiolite study at peak stress was obtained. Interpretation: Rest and stress SPECT Cardiolite nuclear imaging status post realignment, normalization, and attenuation correction, demonstrates the appearance of relative uniform tracer uptake and myocardial perfusion appearing within normal limits. There is end systolic thickening and brightening. The gated Cardiolite study demonstrates myocardial thickening and inward wall motion. The reported LVEF is 79 %. Impression: 1. Rest and stress SPECT Cardiolite nuclear imaging demonstrate relative uniform tracer uptake and myocardial perfusion appearing within normal limits. 2. The gated Cardiolite study reports an LVEF of 79 %. This note was generated with [email or web address] software. It may contain incorrect words, spelling, and punctuation that were not noted in checking the note before signing.
[2019-04-10] MEDS: Famotidine 20 MG Tablet PO (09:44)
[2019-04-10] MEDS: Estradiol 1 MG Tablet PO (09:44)
--- NOTE | 2019-04-10 11:47 | DCINST_ITS ---
- Discharge Diagnoses Current Active Problems: Current Active and Chronic Problems (Last Reviewed 04/07/18 @ 10:19 by Kandice Schumacher) Chest pain (Acute) You will use the following diet at home:: Cardiac Your food should be the consistency of: Regular Your liquids should be the consistency of: Regular/Thin Discharge Activity: Return to Normal Activity Call your doctor if you observe: Fever of 101 or Higher Additional Instructions: Call your doctor to have your INR checked tomorrow. Hold warfarin tonight. Start antibiotics in the morning. Allergies/Adverse Reactions: Allergies No Known Allergies Allergy (Verified 04/09/19 16:26) Medications to take at Discharge Estradiol [Estrace (G)] 1 mg PO DAILY 04/09/19 Warfarin Sodium [Coumadin] 5 mg PO DAILY 04/09/19 Azithromycin 500 mg PO DAILY #1 tab 04/10/19 Cefdinir [Omnicef [equiv]] 300 mg PO Q12H #6 cap 04/10/19 The following prescriptions were given: Azithromycin 500 mg PO DAILY #1 tab Transmission Status: Pending to [id number] Cefdinir [Omnicef [equiv]] 300 mg PO Q12H #6 cap Transmission Status: Pending to [id number] Primary Care Physician: Miya Goldman DO [Primary Care Provider] - Please follow up with your Primary Care Physician in: 1 week Test Results: Test results from this visit will be discussed in further detail at your follow- up appointment, if applicable. Proposed Discharge Date: 04/10/19
[2019-04-10 14:15] VITALS: BP 109/62; PULSE 77; RESP 16; TEMP 36.7; O2SAT 100
--- NOTE | 2019-04-10 14:44 | PHA.DC.MC ---
Pharmacy Service has performed discharge medication reconciliation and counseling for this patient. The patient's discharge medication list was reviewed for discrepancies and discrepancies were resolved. Home Medications Estradiol [Estrace (G)] 1 mg PO DAILY 04/09/19 Warfarin Sodium [Coumadin] 5 mg PO DAILY 04/09/19 Azithromycin 500 mg PO DAILY #1 tab 04/10/19 Cefdinir [Omnicef [equiv]] 300 mg PO Q12H #6 cap 04/10/19 The patient was counseled on the following discharge medications and changes in medications for homegoing were reviewed. 1. AZITHROMYCIN 2. OMNICEF The Reason for Use, instructions for use, and potential side effects were reviewed for all new medications. The patient's questions regarding all of their medications were answered. The patient was able to verbally demonstrate an understanding of their discharge medications.
--- NOTE | 2019-04-10 15:17 | PCM.DC.SUM ---
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 Ten Valved conduit 05/28/09 Bicuspid aortic valve (Chronic) Hyperlipidemia (Chronic) Hypertension (Chronic) Hospital Course and Treatment Imaging Results: DIAGNOSTICS: Impression: 1. Rest and stress SPECT Cardiolite nuclear imaging demonstrate relative uniform tracer uptake and myocardial perfusion appearing within normal limits. 2. The gated Cardiolite study reports an LVEF of 79 %. RAD/Chest 1 View (Portable) IMPRESSION: No acute process CT/CTA Chest W/WO Contrast IMPRESSION: 1. Mild mild tree-in-bud nodularity and edema is present in the mid and lower aspect of the left upper lobe likely representing developing consolidation or pulmonary edema. 2. No demonstrated pulmonary embolism or arterial dissection. RAD/Chest PA and Lateral IMPRESSION: No acute process Operations: None, - Procedures: Stress test Summary of Care Provided: Hospital course: The patient is a 53 year old F past medical history as above who presented to emergency room with chest pain. She had been experiencing upper respiratory symptoms with sinusitis and rhinitis and had been feeling more fatigued. She had a sudden onset of chest tightness that woke her up from sleeping that morning with some nausea and vomiting. With her history of heart disease she came to the emergency room with concern for underlying heart issue. EKG was negative, troponin was negative, white blood cell count was elevated, chest x-ray was negative however CTA demonstrated developing consolidation. She was admitted with concerns for pneumonia and chest pain. She was started on Rocephin and azithromycin. She underwent a stress test the following day which was negative. Troponin was negative x3, she had no events on telemetry, repeat EKG was negative. She was felt to likely have chest pain secondary to developing pneumonia with her respiratory symptoms a preceding the chest pain. She will complete 5 days of antibiotics and follow-up with her PCP in 1 week. She was discharged home in stable condition. Also of note her INR was elevated at 4.6, she was advised to hold Coumadin tonight and have her INR checked tomorrow for further advice on restarting warfarin. This patient was seen by Kelvin Fontanez PA-C under the supervision of Doctor Sanon. [] - Physical Exam Vitals/I&O's: Vital Signs Temp Pulse Resp BP Pulse Ox 98.0 F 77 16 109/62 100 04/10/19 14:15 04/10/19 14:15 04/10/19 14:15 04/10/19 14:15 04/10/19 14:15 Oxygen Flow Rate (L/min) 2 Oxygen Delivery Method Room Air Weight: 159 lb 9.6 oz Body Mass Index (BMI) 27.3 Intake and Output for Last 24 Hours 04/08/19 04/09/19 04/10/19 23:59 23:59 23:59 Intake Total 600.00 / 600.00 2640.41 / 2640.41 Balance 600.00 / 600.00 2640.41 / 2640.41 General: Alert, Oriented x3, Cooperative HEENT: Atraumatic, PERRLA, EOMI, Normocephalic Neck: Supple, No JVD, Negative Carotid Bruits Lungs: Clear to auscultation, Normal air movement Cardiovascular: Regular rate, Murmur Abdomen: Bowel Sounds Present, Soft, Non Tender Extremities: No edema, Capillary Refill Less than 3 Seconds Skin: No rashes, No breakdown Musculoskeletal: No Tenderness to Palpation of Joints or Extremities Neurological: Cranial nerves II-XII grossly intact Psych/Mental Status: Normal Affect, Appropriate, Alert and oriented to time, place, person, mood and affect Microbiology Past 72 Hours 04/09/19 16:25 Mucosa - Nasopharyngeal Respiratory Panel (PCR) - Final Rhinovirus 04/09/19 16:50 Urine, Clean Catch Legionella Antigen - Final 04/09/19 16:50 Urine, Clean Catch Streptococcus pneumoniae Antigen (M - Final Laboratory Results 04/09/19 12:00: Magnesium 1.9 04/09/19 16:50: Urine Color Yellow, Urine Clarity Sl. Cloudy, Urine pH 8.0, Ur Specific [place] 1.015, Urine Protein Negative, Urine Glucose (UA) Normal, Urine Ketones Negative, Urine Occult Blood 25 H, Urine Nitrite Negative, Urine Bilirubin Negative, Urine Urobilinogen Normal, Ur Leukocyte Esterase Negative, Urine RBC 0 SEEN, Urine WBC 0 SEEN, Ur Squamous Epith Cells 0-5 SEEN, Amorphous Sediment 2+, Urine Bacteria 1+, Urine Mucus 0 SEEN 04/09/19 17:20: Troponin I < 0.015 04/09/19 20:20: Troponin I < 0.015 04/10/19 05:34: Sodium 141, Potassium 3.5, Chloride 110 H, Carbon Dioxide 26.0, Anion Gap 5, BUN 11, Creatinine 0.66, Estim Creat Clear Calc 85.12, Est GFR (MDRD) Af Amer 120, Est GFR (MDRD) Non-Af 99, BUN/Creatinine Ratio 16.7, Glucose 77, Calcium 7.7 L, Triglycerides 159, Cholesterol 176, LDL Cholesterol 100, VLDL Cholesterol 32, HDL Cholesterol 44 04/10/19 05:34: WBC 5.3, RBC 3.90 L, Hgb 11.8 L, Hct 34.0 L, MCV 87.2, MCH 30.3, MCHC 34.7, RDW Std Deviation 40.8, RDW Coeff of Peterson 13.0, Plt Count 203, MPV 9.8, Immature Gran % (Auto) 0.200, Neut % (Auto) 53.9, Lymph % (Auto) 31.6, Fergus % (Auto) 8.1, Eos % (Auto) 5.6 H, Baso % (Auto) 0.6, Absolute Neuts (auto) 2.9, Absolute Lymphs (auto) 1.68, Nucleated RBC % 0 04/10/19 05:34: PT 44.2 H, INR 4.6 H* Discharge Diet: Low fat/ Low Cholesterol, 2000 mg Sodium Diet Discharge Activity: Return to Normal Activity Call your doctor if you observe: Fever of 101 or Higher Home Medications: Medications to take at Discharge Estradiol [Estrace (G)] 1 mg PO DAILY 04/09/19 Warfarin Sodium [Coumadin] 5 mg PO DAILY 04/09/19 Azithromycin 500 mg PO DAILY #1 tab 04/10/19 Cefdinir [Omnicef [equiv]] 300 mg PO Q12H #6 cap 04/10/19 Following Prescrptions Were Given to Patient: Azithromycin 500 mg PO DAILY #1 tab Transmission Status: Received by [facility] Cefdinir [Omnicef [equiv]] 300 mg PO Q12H #6 cap Transmission Status: Received by [id number] Primary Care Physician: Miya Goldman DO [Primary Care Provider] - Please follow up with your Primary Care Physician in: 1 week Disposition: Home Minutes spent on discharge:: 35 Patient Condition:: Stable Medical Necessity - Tobacco Use Smoking Status: Never smoker Tobacco Use: Non-smoker Meaningful Use Info Meaningful Use Diagnoses (Choose all that apply): None applicable <Fransico Sanon - Last Filed: 04/10/19 15:32> Discharge Date and Diagnosis - Secondary Discharge Diagnosis Chronic Problems (Last Reviewed 04/07/18 @ 10:19 by Kandice Schumacher) 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 Ten Valved conduit 05/28/09 Bicuspid aortic valve (Chronic) Hyperlipidemia (Chronic) Hypertension (Chronic) Hospital Course and Treatment Imaging Results: 04/10/19 09:20 CXR [Chest PA and Lateral] [RAD] AM (NON MEDS) Summary of Care Provided: This patient was seen in conjunction with Kelvin Fontanez PA-C . I have independently interviewed and examined the patient and reviewed pertinent historical, laboratory, and other data. Please refer to Kelvin Fontanez PA-C note for details of this patient's presentation, findings, and recommendations. I have reviewed Kelvin Fontanez PA-C note and concur with documented findings. In brief, patient is a 53-year-old female who presented with chest pain. Admitted to monitored bed [facility] was ruled out with serial cardiac enzymes. CTA of the chest obtained as part of her management demonstrated consolidation. Patient was started on Rocephin and Zithromax discharged home on Omnicef Hospital course: As documented above - Physical Exam Vitals/I&O's: Vital Signs Temp Pulse Resp BP Pulse Ox 98.0 F 77 16 109/62 100 04/10/19 14:15 04/10/19 14:15 04/10/19 14:15 04/10/19 14:15 04/10/19 14:15 Oxygen Flow Rate (L/min) 2 Oxygen Delivery Method Room Air Weight: 72.393 kg Body Mass Index (BMI) 27.3 Intake and Output for Last 24 Hours 04/08/19 04/09/19 04/10/19 23:59 23:59 23:59 Intake Total 600.00 / 600.00 2640.41 / 2640.41 Balance 600.00 / 600.00 2640.41 / 2640.41 Microbiology Past 72 Hours 04/09/19 16:25 Mucosa - Nasopharyngeal Respiratory Panel (PCR) - Final Rhinovirus 04/09/19 16:50 Urine, Clean Catch Legionella Antigen - Final 04/09/19 16:50 Urine, Clean Catch Streptococcus pneumoniae Antigen (M - Final Laboratory Results 04/09/19 12:00: Magnesium 1.9 04/09/19 16:50: Urine Color Yellow, Urine Clarity Sl. Cloudy, Urine pH 8.0, Ur Specific [place] 1.015, Urine Protein Negative, Urine Glucose (UA) Normal, Urine Ketones Negative, Urine Occult Blood 25 H, Urine Nitrite Negative, Urine Bilirubin Negative, Urine Urobilinogen Normal, Ur Leukocyte Esterase Negative, Urine RBC 0 SEEN, Urine WBC 0 SEEN, Ur Squamous Epith Cells 0-5 SEEN, Amorphous Sediment 2+, Urine Bacteria 1+, Urine Mucus 0 SEEN 04/09/19 17:20: Troponin I < 0.015 04/09/19 20:20: Troponin I < 0.015 04/10/19 05:34: Sodium 141, Potassium 3.5, Chloride 110 H, Carbon Dioxide 26.0, Anion Gap 5, BUN 11, Creatinine 0.66, Estim Creat Clear Calc 85.12, Est GFR (MDRD) Af Amer 120, Est GFR (MDRD) Non-Af 99, BUN/Creatinine Ratio 16.7, Glucose 77, Calcium 7.7 L, Triglycerides 159, Cholesterol 176, LDL Cholesterol 100, VLDL Cholesterol 32, HDL Cholesterol 44 04/10/19 05:34: WBC 5.3, RBC 3.90 L, Hgb 11.8 L, Hct 34.0 L, MCV 87.2, MCH 30.3, MCHC 34.7, RDW Std Deviation 40.8, RDW Coeff of Peterson 13.0, Plt Count 203, MPV 9.8, Immature Gran % (Auto) 0.200, Neut % (Auto) 53.9, Lymph % (Auto) 31.6, Fergus % (Auto) 8.1, Eos % (Auto) 5.6 H, Baso % (Auto) 0.6, Absolute Neuts (auto) 2.9, Absolute Lymphs (auto) 1.68, Nucleated RBC % 0 04/10/19 05:34: PT 44.2 H, INR 4.6 H* Code Visit OBSV E&M: 17072 Observation care discharge
== END 2019-04-10 11:47 | disposition home or self-care (01) ==
LOC: ED 12:49 → PCU 16:08
PROVIDERS: Admitting Provider Family Medicine; Emergency Provider Emergency Medicine; PCP Family Medicine; Visit Provider Internal Medicine
DX: J18.9 Pneumonia, unspecified organism (principal); R07.89 Other chest pain; I10 Essential (primary) hypertension; E78.5 Hyperlipidemia, unspecified; K21.9 Gastro-esophageal reflux disease without esophagitis; Z79.899 Other long term (current) drug therapy; Z79.01 Long term (current) use of anticoagulants; Z95.2 Presence of prosthetic heart valve
CPT/HCPCS: 36415; 71045; 71046; 71275; 78452; 80048; 80061; 81001; 83735; 84484; 85025; 85610; 87449; 87633; 93005; 93017; 96361; 96365; 96366; 96367; 96375; 96376; 99218; 99285; A9500; J7030; Q9967; A4216; G0378; J2405

== ENCOUNTER 2019-04-11 09:42 | Outpatient (RCR) | payer BC, SELFPAY ==
[2019-04-09 16:17] VITALS: BMI 27.3
[2019-04-11 12:19] LABS: International Normalized Ratio 2.8; Prothrombin Time (Protime)PT. 29.7 SECONDS (11.7-14.9)
== END 2019-04-14 23:59 ==
LOC: BFHLAB 09:42
PROVIDERS: PCP Family Medicine; Visit Provider Internal Medicine Cardiovascular Disease
DX: Z95.4 Presence of other heart-valve replacement (principal); Z79.01 Long term (current) use of anticoagulants
CPT/HCPCS: 36415; 85610

== ENCOUNTER → 2019-04-19 14:21 | Outpatient (CLI) | payer BC, SELFPAY ==
[2019-04-09 16:17] VITALS: BMI 27.3
[2019-04-19 15:46] LABS: Prothrombin Time (Protime)PT. 40.4 SECONDS (11.7-14.9)
[2019-04-19 15:48] LABS: International Normalized Ratio 4.1
== END ==
PROVIDERS: PCP Family Medicine; Visit Provider Internal Medicine Cardiovascular Disease
DX: Z79.01 Long term (current) use of anticoagulants (principal); Z95.4 Presence of other heart-valve replacement
CPT/HCPCS: 36415; 85610

== ENCOUNTER → 2019-05-11 13:07 | Outpatient (CLI) | payer BC, SELFPAY ==
[2019-04-09 16:17] VITALS: BMI 27.3
[2019-05-11 16:12] LABS: Prothrombin Time (Protime)PT. 37.1 SECONDS (11.7-14.9)
[2019-05-11 16:29] LABS: International Normalized Ratio 3.7
== END ==
PROVIDERS: PCP Family Medicine; Visit Provider Internal Medicine Cardiovascular Disease
DX: Z95.4 Presence of other heart-valve replacement (principal); Z79.01 Long term (current) use of anticoagulants
CPT/HCPCS: 36415; 85610

== ENCOUNTER → 2019-05-26 11:21 | Outpatient (CLI) | payer OTHER, SELFPAY ==
[2019-04-09 16:17] VITALS: BMI 27.3
[2019-05-26 11:37] LABS: Prothrombin Time (Protime)PT. 42.7 SECONDS (11.7-14.9)
[2019-05-26 11:49] LABS: International Normalized Ratio 4.5
== END ==
PROVIDERS: PCP Family Medicine; Visit Provider Internal Medicine Cardiovascular Disease
DX: Z95.4 Presence of other heart-valve replacement (principal); Z79.01 Long term (current) use of anticoagulants
CPT/HCPCS: 36415; 85610

== ENCOUNTER 2019-06-05 08:25 | Outpatient (RCR) | payer OTHER, SELFPAY ==
[2019-04-09 16:17] VITALS: BMI 27.3
[2019-05-31 08:31] LABS: Prothrombin Time Fingerstick 44.5 SEC (11.9-14.4)
[2019-05-31 08:54] LABS: Prothrombin Time (Protime)PT. 40.5 SECONDS (11.7-14.9)
[2019-05-31 09:04] LABS: International Normalized Ratio 4.2
[2019-06-05 09:44] LABS: Prothrombin Time (Protime)PT. 39.1 SECONDS (11.7-14.9)
== END 2019-06-14 18:00 | disposition home or self-care (01) ==
LOC: LAB 08:25
PROVIDERS: PCP Family Medicine; Referring Provider Internal Medicine Cardiovascular Disease; Visit Provider Internal Medicine Cardiovascular Disease
DX: Z95.4 Presence of other heart-valve replacement (principal); Z79.01 Long term (current) use of anticoagulants
CPT/HCPCS: 36415; 36416; 85610

== ENCOUNTER → 2019-07-04 06:56 | Outpatient (CLI) | payer OTHER, SELFPAY ==
[2019-04-09 16:17] VITALS: BMI 27.3
--- NOTE | 2019-07-04 06:59 | BI_ITS ---
MAMMOGRAPHY - BILATERAL SCREENING REASON FOR EXAM: Female, 54 years old. Routine annual screening examination. PERTINENT HISTORY: Non-contributory. TECHNIQUE: Digital bilateral breast chaim (3D mammographic acquisition) in the CC and MLO projections. 2-D mediolateral oblique (MLO) and craniocaudad (CC) views of both breasts were obtained. CAD: Full Field Digital Mammography with Computer Added Detection was performed. COMPARISON: Comparison is made with prior study dated June 22, 2018 and June 02, 2017. FINDINGS: Breast Composition: The breasts are almost entirely fatty. There are no dominant masses or suspicious calcifications. Stable small benign-appearing bilateral axillary lymph nodes. No other significant abnormalities are identified. There has been no significant change since the prior study. BI/SCREEN MAMM (CAD) W/CHAIM BILAT IMPRESSION: Stable bilateral screening mammogram. Yearly follow-up mammogram recommended. (A) ASSESSMENT CATEGORY: BIRADS Category 2: Benign. A letter regarding these results will be sent to the patient by the facility within 30 days. Approximately 10% of breast cancers are not detected by mammography. A normal mammogram should not delay biopsy of a clinically suspicious abnormality. [id number] Electronically Signed: Ludwin Hernandes, at 9:35 EDT , Service support ,
== END ==
PROVIDERS: PCP Family Medicine; Referring Provider Family Medicine; Visit Provider Family Medicine
DX: Z12.31 Encounter for screening mammogram for malignant neoplasm of breast (principal)
CPT/HCPCS: 77063; 77067

== ENCOUNTER 2019-07-15 23:22 | Emergency (ER) | payer OTHER, SELFPAY ==
[2019-04-09 16:17] VITALS: BMI 27.3
[2019-07-15 23:22] VITALS: BP 132/84; PULSE 73; RESP 15; TEMP 36.5; O2SAT 96; BMI 29.2
--- NOTE | 2019-07-15 23:30 | ED.DCSUM_ITS ---
History of Present Illness Chief Complaint: Upper Extremity Injury Informant: Patient Narrative: Stated she injured her left shoulder forearm and wrist. Just prior to arrival she was walking down the steps to go outside and missed a step and fell down 3 onto the concrete onto the left side. She is on Coumadin. Her last INR was 2 days ago and is 3.6. She has mechanical heart valve and takes Coumadin. Denies hitting her head. Denies any other injury elsewhere. No home treatment. Came in for further evaluation of the left arm. Current severity is moderate. Worse by movement. Relieved with rest. No previous injury. - Past Medical History (1) Abnormal echocardiogram Status: Acute (2) Chest pain Status: Acute (3) Fall Status: Acute (4) Open wound of left hip and thigh with complication Status: Acute Comment: open surgical hematoma wound left anterolateral thigh with muscle involvement (vastus lateralis muscle) (5) Screen for colon cancer Status: Acute (6) Traumatic hematoma of left thigh Status: Acute Comment: traumatic intramuscular hematoma left anterolateral thigh (vastus lateralis muscle) (7) Anxiety Status: Chronic (8) Bicuspid aortic valve Status: Chronic (9) Cervical cancer Status: Chronic (10) GERD (gastroesophageal reflux disease) Status: Chronic (11) History of aortic valve replacement with metallic valve Status: Chronic Comment: 21mm St. 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 without evidence of necrosis Status: Chronic Comment: nonhealing traumatic hematoma ulcer left anterolateral thigh (17) Thoracic aortic aneurysm Status: Chronic (18) Nonrheumatic aortic (valve) insufficiency Status: Resolved Past Medical History - Allergies and Home Meds Allergies/Adverse Reactions: Allergies No Known Allergies Allergy (Verified 07/15/19 23:26) Primary Care Physician: Miya Goldmna DO [Primary Care Provider] - Prior records reviewed: Yes Past Medical History: - - See problem list Surgical History: cholecystectomy, hysterectomy, - - 05/28/2009 aortic valve re placement and aortic root repair with a 21 mm Saint Ten mechanical aortic valve/root conduit, cholecystectomy, hysterectomy with unilateral oophorectomy and salpingectomy, tonsillectomy. Smoking Status: Never smoker Alcohol: None Drugs: None - Family History Maternal Family History: Family History (Last Reviewed 04/07/18 @ 10:20 by Kandice Schumacher) Grandmother Heart disease Mother Heart disease Family History: Reports: High Cholesterol, Heart Disease, Hypertension Paternal Family History: Family History (Last Reviewed 04/07/18 @ 10:20 by Kandice Schumacher) Grandmother Heart disease Mother Heart disease Family History: Reports: Heart Disease - Patient notes a history of heart disease but states she does not know her paternal family history well. Review of Systems General: Denies: Chills, Fever, Sweats Eyes: Denies: Visual changes - bilaterally, Diplopia ENT: Denies: Rhinorrhea, Sore throat Cardiovascular: Denies: Chest pain, Palpitations Respiratory: Denies: Dyspnea, Cough, Dyspnea on exertion Gastrointestinal: Denies: Abdominal pain, Nausea, Vomiting, Diarrhea, Melena, Hematochezia Genitourinary: Denies: Dysuria, Hematuria, Frequency Musculoskeletal: Reports: Extremity Pain. Denies: Back pain Skin: Denies: Rash, Wounds Neurological: Denies: Headache, Weakness, Numbness Physical Exam Vital Signs/Narrative: Vital Signs Temp Pulse Resp BP Pulse Ox 07/15/19 23:22 97.7 F L 73 15 132/84 H 96 General: Well nourished, Well developed, No Acute Distress Head: Normocephalic, Atraumatic Eyes: Perrl, EOMI ENT: Moist mucous membranes, No rhinorrhea Neck: Supple, Nontender Cardiovascular: Regular rate, Regular rhythm, No murmurs Respiratory: No distress, CTA bilaterally, Chest nontender Abdomen: Soft, Nontender, Nondistended, Normal bowel sounds Back: Nontender, Normal Inspection Extremities: Tenderness - Tenderness in the left shoulder diffusely. No bony st ep-off deformity or contusion. Decreased range of motion secondary to pain. Tenderness to the left forearm on the extensor surface with mild bruising. Mild tenderness diffusely to the left wrist. Hand and elbow exam normal as well as humerus exam distal to the shoulder girdle Skin: - - Four small bruises to the left forearm measuring 1 cm each. Negative for: Normal color, No rash Neurological: Alert, Oriented x3, Cranial nerves II-XII grossly intact, Normal Strength, Normal Sensation Psychological: Normal affect, Normal Mood Diagnostic/Tx/Re-eval - Medical Decision Making Patient given ice pack. X-ray of the left shoulder forearm and wrist obtained. X-rays negative of the shoulder forearm and wrist. Patient will be given a sling. She will rest and ice and use ibuprofen. At this time I feel she has bruising and sprain. She will follow-up as an outpatient if she continues to have problems. Further imaging may be necessary. ED Disposition - Plan for ED Patient: Disposition: Home or Assisted Living Diagnosis: Sprain of shoulder, left, Wrist sprain, Forearm contusion Instructions: ED EXTREMITY CONTUSION Upper, ED Sprain Wrist, ED Shoulder Sprain Referrals: Miya Goldman DO [Primary Care Provider] -
--- NOTE | 2019-07-15 23:35 | RAD_ITS ---
STUDY: X-RAY - LEFT RADIUS AND ULNA REASON FOR EXAM: Female, 54 years old. Fall tonight. Distal left forearm pain. TECHNIQUE: 2 view(s) of the forearm. COMPARISON: None. FINDINGS: There is no demonstrated soft tissue swelling. Normal visualized radius. Normal visualized ulna. RAD/Forearm 2 Views IMPRESSION: Normal x-ray examination of the radius and ulna. Electronically Signed: Edouard Black MD at 0:20 EDT , Service support ,
--- NOTE | 2019-07-15 23:35 | RAD_ITS ---
STUDY: X-RAY - LEFT WRIST REASON FOR EXAM: Female, 54 years old. Fall tonight. Generalized left wrist pain. TECHNIQUE: 3 view(s) of the wrist were obtained. COMPARISON: None. FINDINGS: Normal visualized distal radius and ulna. Normal radiocarpal articulation. Normal distal radioulnar articulation. Normal carpal bones. Normal carpal articulations. Normal carpometacarpal articulation of the thumb. Normal second through fifth carpometacarpal articulations. Normal visualized metacarpal bones. The soft tissue structures are unremarkable. RAD/Wrist min 3 Views IMPRESSION: Normal x-ray examination of the wrist. Electronically Signed: Edouard Black MD at 0:18 EDT , Service support ,
--- NOTE | 2019-07-15 23:35 | RAD_ITS ---
STUDY: X-RAY - LEFT SHOULDER REASON FOR EXAM: Female, 54 years old. Fall tonight. Pain with external rotation of left shoulder. TECHNIQUE: 4 view(s) of the shoulder. COMPARISON: None. FINDINGS: Normal glenohumeral articulation. Normal acromioclavicular joint. Normal acromion. Normal humeral head and visualized proximal humerus. The soft tissue structures are unremarkable. Normal visualized pulmonary apex. RAD/Shoulder min 2 Views IMPRESSION: Normal x-ray examination of the shoulder. Electronically Signed: Edouard Black MD at 0:16 EDT , Service support ,
[2019-07-16 00:48] VITALS: RESP 16
== END 2019-07-16 00:49 | disposition home or self-care (01) ==
PROVIDERS: Emergency Provider Emergency Medicine; PCP Family Medicine
DX: S63.502A Unspecified sprain of left wrist, initial encounter (principal); S43.402A Unspecified sprain of left shoulder joint, initial encounter; S50.12XA Contusion of left forearm, initial encounter; W10.9XXA Fall (on) (from) unspecified stairs and steps, initial encounter; Y93.01 Activity, walking, marching and hiking; Z79.01 Long term (current) use of anticoagulants; Z82.49 Family history of ischemic heart disease and other diseases of the circulatory system; E78.5 Hyperlipidemia, unspecified; F41.9 Anxiety disorder, unspecified; I10 Essential (primary) hypertension; I35.1 Nonrheumatic aortic (valve) insufficiency; I71.2 Thoracic aortic aneurysm, without rupture; K21.9 Gastro-esophageal reflux disease without esophagitis; L97.925 Non-pressure chronic ulcer of unspecified part of left lower leg with muscle involvement without evidence of necrosis; Z85.41 Personal history of malignant neoplasm of cervix uteri; Z90.49 Acquired absence of other specified parts of digestive tract; Z90.710 Acquired absence of both cervix and uterus; Z95.2 Presence of prosthetic heart valve
CPT/HCPCS: 73030; 73090; 73110; 99283

== ENCOUNTER → 2019-08-29 10:14 | Outpatient (CLI) | payer OTHER, SELFPAY | PROVIDERS: PCP Family Medicine; Visit Provider Family Medicine | DX: Z20.828 Contact with and (suspected) exposure to other viral communicable diseases (principal) | CPT/HCPCS: 87635; U0003 ==

== ENCOUNTER → 2019-09-17 20:16 | Outpatient (CLI) | payer OTHER, SELFPAY | PROVIDERS: PCP Family Medicine; Referring Provider Internal Medicine Pulmonary Disease; Visit Provider Internal Medicine Pulmonary Disease | DX: G47.10 Hypersomnia, unspecified (principal) | CPT/HCPCS: 95810 ==

== ENCOUNTER → 2019-10-25 07:43 | Outpatient (CLI) | payer OTHER, SELFPAY ==
--- NOTE | 2019-10-25 07:45 | ECHOD_ITS ---
Reason For Study: AVR Procedure This was a 2D Doppler, Color Flow transthoracic echocardiogram. The study was technically difficult. Exam performed in department. Left Ventricle Normal LV size. Left ventricular systolic function is normal. The estimated ejection fraction is 60 %. Stage 2 diastolic dysfunction. No regional wall motion abnormalities noted. Right Ventricle Normal RV size. Normal systolic function. Atria The left atrium is mildly enlarged. Normal right atrium. Mitral Valve Normal mitral valve. Aortic Valve Peak aortic valve gradient 29 mmHg. Mean aortic valve gradient 16 mmHg. Calculated aortic valve area (continuity equation) is 1.2 cm2. Stable appearing mechanical aortic valve apparatus. Pulmonic Valve The pulmonic valve is not well visualized. Great Vessels Normal aortic root. The pulmonary artery is normal size. Normal inferior vena cava. Pericardium/Pleural No pericardial effusion. MMode/2D Measurements & Calculations LVIDd: 4.0 cm IVSd: 1.1 cm LVOT diam: 2.0 cm LVIDs: 2.6 cm LVPWd: 1.2 cm LVOT area: 3.0 cm2 RVDd: 3.3 cm FS: 34.2 % Ao root diam: 2.7 cm LAV(MOD-bp): 76.1 ml LA A4 area: 22.6 cm2 LAV(MOD-bp) Indexed: 41.7 ml/m2 LAV(MOD-sp2): 76.0 ml LAV(MOD-sp4): 73.0 ml LA dimension(2D): 3.9 cm RA A4 area: 17.9 cm2 Time Measurements MV dec time: 0.25 sec Doppler Measurements & Calculations MV E max peewee: 94.8 cm/sec Lat Peak E' Peewee: 9.0 cm/sec Med Peak E' Peewee: 5.0 cm/sec MV A max peewee: 92.9 cm/sec E/E' lat: 10.6 E/E' med: 18.8 MV E/A: 1.0 Ao V2 max: 272.0 cm/sec LV V1 max: 106.1 cm/sec SV(LVOT): 75.4 ml Ao max P.6 mmHg LV V1 max P.5 mmHg Ao V2 mean: 190.2 cm/sec LV V1 mean P.6 mmHg Ao mean P.8 mmHg LV V1 mean: 76.8 cm/sec Ao V2 VTI: 53.1 cm LV V1 VTI: 24.7 cm EZEQUIEL(I,D): 1.4 cm2 EZEQUIEL(V,D): 1.2 cm2 Interpretation Summary Normal LV size. Left ventricular systolic function is normal. Mean aortic valve gradient 16 mmHg. The estimated ejection fraction is 60 %. Stage 2 diastolic dysfunction. Ordering Physician: Miya Goldman Referring Physician: Miya Goldman Performed By: Alayna Pretty, SESARCS, RVT
== END ==
PROVIDERS: PCP Family Medicine; Referring Provider Family Medicine; Visit Provider Family Medicine
DX: Z95.2 Presence of prosthetic heart valve (principal)
CPT/HCPCS: 93306

== ENCOUNTER → 2019-11-28 08:03 | Outpatient (CLI) | payer OTHER, SELFPAY ==
[2019-11-28 12:33] LABS: International Normalized Ratio 2.6; Prothrombin Time (Protime)PT. 27.4 SECONDS (11.7-14.9)
== END ==
PROVIDERS: PCP Family Medicine; Visit Provider Family Medicine
DX: Z95.2 Presence of prosthetic heart valve (principal)
CPT/HCPCS: 36415; 85610

== ENCOUNTER 2020-01-30 21:21 | Emergency (ER) | payer OTHER, SELFPAY ==
[2020-01-30 21:22] VITALS: BP 178/84; PULSE 67; RESP 18; TEMP 36.7; O2SAT 100; BMI 30.9
[2020-01-30 21:25] VITALS: BP 178/74; PULSE 66; RESP 17; O2SAT 100
--- NOTE | 2020-01-30 21:40 | ED.DCSUM_ITS ---
- ER Visit Summary Date of Service: 01/30/20 Chief Complaint: Back pain History of Present Illness: The patient is a 54 F who presents with back pain that began after a fall today. Patient states she slipped and fell backwards. Patient states she landed on some steps. Patient states her pain is worse over the right lower thoracic area and right rib area. Patient did hit her head but denies any loss of consciousness. Patient denies any paresthesias or weakness. Patient states her pain is worse with deep breathing. Patient describes her pain as throbbing. Patient denies any other injuries. Physical Examination: Vital signs are stable. Patient is afebrile. Patient is in no acute distress. Oral mucosa is pink and moist. Neck is supple. Trachea is midline. There is no JVD. Heart was regular rate and rhythm. Lungs are clear and equal bilaterally. There is adequate respiratory effort. Abdomen is soft. Bowel sounds are normal. There is no tenderness. Cranial nerves II through XII are intact. There are no focal motor or sensory deficits noted. Musculoskeletal exam reveals tenderness over the right lower ribs. There is no bony crepitance or step-off noted. Test Results: X-rays of the right ribs were obtained. There are 3 views. On my interpretation, there is no acute fracture. There is no pneumothorax noted. There is no pleural effusion. There is no acute cardiopulmonary process noted. Radiologist also interpreted the x-rays and agrees. Emergency Department Course and Treatment: Patient was given an injection of morphine here. Patient began feeling nauseated after the injection. Patient was given a dose of Zofran. Patient was given a prescription for Whitman. Patient was instructed to use ice to the area. Patient was instructed to take 10-15 deep breaths every hour to prevent atelectasis and pneumonia. Patient was instructed to follow-up with her primary care physician in 5 to 7 days. Patient understood and was agreeable with the plan. All questions were answered. Disposition: Discharge home Impression: 1. Right rib contusion This note was generated with [employer] dictation software. It may contain incorrect words, spelling, and punctuation that were not noted in review of the chart prior to signing ED Disposition - Plan for ED Patient: Disposition: Home or Assisted Living Diagnosis: Contusion of rib on right side Instructions: ED Contusion, Rib Prescriptions: Hydrocodone Bitart/Apap 5-325 [Whitman 5MG-325MG] 1 tab PO Q6H PRN PRN 3 Days #10 tab PRN Reason: Pain Prescription Printed Referrals: Miya Goldman DO [Primary Care Provider] - 5-7 Days
[2020-01-30] MEDS: Morphine 4 MG/ML Syringe IM (21:48)
[2020-01-30] MEDS: Ondansetron ODT 4 MG Tablet PO (21:56)
[2020-01-30 21:57] VITALS: RESP 17
--- NOTE | 2020-01-30 22:05 | RAD_ITS ---
HISTORY: Fall at home. Right side back pain. Comparison study is very 2019. Chest x-ray. A chest CT is available from April 09, 2019. Findings: Basilar airspace disease. Prosthetic aortic valve. Sternal wires. Heart is not enlarged. Cholecystectomy clips. No rib fractures are perceived. No pneumothorax. RAD/Ribs Uni Min 3V w/PA Chest IMPRESSION: Previous aortic valve replacement. Some minimal basilar lung disease. Basilar lung disease could be some minimal pulmonary venous congestion, pulmonary edema, or even pneumonia. at 2226 Reported and signed by: Joe Ruelas MD Electronically Signed: Joe Ruelas MD at 22:25 EST Tel , Service support ,
[2020-01-30 22:59] VITALS: RESP 17
== END 2020-01-30 22:59 | disposition home or self-care (01) ==
PROVIDERS: Emergency Provider Emergency Medicine; PCP Family Medicine
DX: S20.211A Contusion of right front wall of thorax, initial encounter (principal); W01.0XXA Fall on same level from slipping, tripping and stumbling without subsequent striking against object, initial encounter; Z95.2 Presence of prosthetic heart valve
CPT/HCPCS: 71101; 99282

== ENCOUNTER 2020-02-03 16:41 | Emergency (ER) | payer OTHER, SELFPAY ==
[2020-02-03 16:42] VITALS: BP 135/91; PULSE 80; RESP 20; TEMP 36.6; O2SAT 98; BMI 30.9
--- NOTE | 2020-02-03 17:15 | CT_ITS ---
STUDY: CT CHEST WITH CONTRAST REASON FOR EXAM: Female, 54 years old. FELL SEVERAL DAYS AGO/RT RIB PAIN. Hx of gastroplasty, cholecystectomy, aortic valve replacement, TAA repair and lt femur rodding. RADIATION DOSAGE (If Supplied By Facility): CTDIvol = ( 11.39 ) mGy, DLP = ( 1520.32 ) mGycm TECHNIQUE: Transaxial imaging was performed following intravenous administration of IV 100mL Isovue-370. Individualized dose optimization techniques were used for this CT. COMPARISON: Chest x-ray 04/10/[address] chest 04/09/2019 FINDINGS: Bibasilar airspace disease. Small right effusion. Normal heart and pericardium. Prosthetic aortic valve. Normal mediastinum. Normal hilar regions. Normal enhanced pulmonary arteries. Normal aorta arch and descending thoracic aorta. Normal osseous structures. There is no demonstrated abnormality of the visualized upper abdomen. CT/Chest WITH Contrast IMPRESSION: Bibasilar airspace disease and small right effusion. Prosthetic aortic valve. Electronically Signed: Quoc Mitchell MD at 19:08 EST , Service support ,
--- NOTE | 2020-02-03 17:15 | CT_ITS ---
STUDY: CT ABDOMEN AND PELVIS WITH CONTRAST REASON FOR EXAM: Female, 54 years old. FELL SEVERAL DAYS AGO/RT RIB PAIN. Hx of gastroplasty, cholecystectomy, aortic valve replacement, TAA repair and lt femur rodding. RADIATION DOSAGE (If Supplied By Facility): CTDIvol = ( 11.39 ) mGy, DLP = ( 1520.32 ) mGycm TECHNIQUE: Transaxial images were obtained from the dome of the diaphragm to the symphysis pubis without oral contrast. IV 100mL Isovue-370 was administered. Sagittal and coronal images were reconstructed. Individualized dose optimization techniques were used for this CT. COMPARISON: 06/09/2018 CT abdomen and pelvis FINDINGS: Bibasilar airspace disease. Prosthetic heart valve. Normal liver. The gallbladder surgically absent. Normal spleen. Normal pancreas. Normal bilateral adrenal glands. Normal right kidney. Normal left kidney. Post surgical changes in the stomach. Normal small intestine. Increased stool throughout the colon. Air-fluid levels in the colon. The appendix is visualized and appears normal. Normal abdominal aorta. Normal inferior vena cava. Normal retroperitoneum. Normal urinary bladder. Bilateral tubal ligation clips. Normal abdominal wall. Slight anterior subluxation L5-S1. CT/Abdomen/Pelvis W IV Cont ONLY IMPRESSION: Colonic ileus/nonspecific diarrheal disease. Grade 1 spondylolisthesis L5-S1. Electronically Signed: Quoc Mitchell MD at 18:52 EST , Service support ,
--- NOTE | 2020-02-03 17:16 | ED.DCSUM_ITS ---
History of Present Illness Chief Complaint: Fall Narrative: Patient is a 54-year-old female who presents with right flank and back pain. 4 days ago she slipped on snow while walking down steps. She fell backwards while on the last step and hit her right lower posterior chest and back on the concrete steps. She was seen in the emergency department at that time. Rib series was negative. Patient was discharged on [place]. This has been inadequately controlling her pain. She contacted her primary care provider who changed her from 5 mg hydrocodone to 10 mg hydrocodone and she states the still is not touching it. She was supposed to have a virtual appointment today but did not hear back on a telemedicine visit so presented here due to ongoing pain. She has also noted a orange discoloration to her urine. She is not on any other medication such as Azo or Pyridium. She is anticoagulated on warfarin due to a history of a mechanical valve. Past Medical History - Allergies and Home Meds Allergies/Adverse Reactions: Allergies No Known Allergies Allergy (Verified 02/03/20 16:44) Primary Care Physician: Miya Goldman DO [Primary Care Provider] - Past Medical History: - - Aortic valve replacement Surgical History: cholecystectomy, hysterectomy, - - 05/28/2009 aortic valve replacement and aortic root repair with a 21 mm [place] mechanical aortic valve/root conduit, cholecystectomy, hysterectomy with unilateral oophorectomy and salpingectomy, tonsillectomy. Smoking Status: Never smoker - Family History Maternal Family History: Family History (Last Reviewed 04/07/18 @ 10:20 by Kandice Schumacher) Grandmother Heart disease Mother Heart disease Family History: Reports: High Cholesterol, Heart Disease, Hypertension Paternal Family History: Family History (Last Reviewed 04/07/18 @ 10:20 by Kandice Schumacher) Grandmother Heart disease Mother Heart disease Family History: Reports: Heart Disease - Patient notes a history of heart disease but states she does not know her paternal family history well. Review of Systems All systems negative except as indicated General: Denies: Fever Eyes: Denies: Visual changes - bilaterally ENT: Denies: Bilateral ear pain Cardiovascular: Reports: Chest pain Gastrointestinal: Reports: - - Right flank pain. Denies: Abdominal pain, Nausea, Vomiting Musculoskeletal: Reports: Back pain Skin: Denies: Rash Neurological: Denies: Headache Hematologic: Reports: Easy bruising Allergy: Denies: Uticaria Physical Exam Vital Signs/Narrative: Vital Signs Temp Pulse Resp BP Pulse Ox 02/03/20 16:42 97.9 F 80 20 H 135/91 H 98 Inital Vital Signs reviewed: Yes General: Well nourished, Well developed Head: Normocephalic Eyes: EOMI ENT: Moist mucous membranes Neck: Supple Cardiovascular: Regular rate, Regular rhythm, - - Mechanical click noted Respiratory: No distress, CTA bilaterally, - - Right posterior chest wall pain on palpation no crepitus Abdomen: Soft, Nontender, Nondistended, - - No Chemo or Rao Collier sign, patient is tender at the right CVA no ecchymosis Extremities: Nontender Skin: Normal color Neurological: Alert Psychological: Normal affect Diagnostic/Tx/Re-eval Impressions Abdomen/Pelvis CT 02/03/20 17:15 IMPRESSION: Colonic ileus/nonspecific diarrheal disease. Grade 1 spondylolisthesis L5-S1. Electronically Signed: Quoc Mitchell MD at 18:52 EST , Service support , Chest CT 02/03/20 17:15 IMPRESSION: Bibasilar airspace disease and small right effusion. Prosthetic aortic valve. Electronically Signed: Quoc Mitchell MD at 19:08 EST , Service support , 02/03/20 17:15 CT Abd [Abdomen/Pelvis W IV Cont ONLY] [CT] Stat Chest WITH Contrast [CT] Stat Laboratory Results 02/03/20 02/03/20 02/03/20 17:45 17:45 17:45 WBC 6.5 RBC 3.94 L Hgb 12.2 Hct 35.1 L MCV 89.1 MCH 31.0 MCHC 34.8 RDW Std Deviation 40.8 RDW Coeff of Peterson 12.4 Plt Count 236 MPV 9.8 Immature Gran % (Auto) 0.300 Neut % (Auto) 66.1 Lymph % (Auto) 21.0 [place] % (Auto) 9.3 Eos % (Auto) 3.1 Baso % (Auto) 0.2 Absolute Neuts (auto) 4.3 Absolute Lymphs (auto) 1.36 Nucleated RBC % 0 PT 24.1 H INR 2.2 Sodium 139 Potassium 4.4 Chloride 108 H Carbon Dioxide 28.0 Anion Gap 3 L BUN 21 H Creatinine 0.84 Estim Creat Clear Calc 66.11 Est GFR (MDRD) Af Amer 91 Est GFR (MDRD) Non-Af 75 BUN/Creatinine Ratio 25.1 H Glucose 84 Calcium 8.3 L Total Bilirubin 0.40 AST 42 H ALT 36 Alkaline Phosphatase 125 H Total Protein 6.6 Albumin 3.1 L Globulin 3.5 Albumin/Globulin Ratio 0.9 - Medical Decision Making Labs notable for INR 2.2 otherwise unremarkable. CTs of the chest abdomen and pelvis were obtained. This shows bibasilar airspace disease, no obvious rib fractures, no renal injury noted. Patient has no fever cough leukocytosis or shortness of breath. Airspace disease may be related to atelectasis from splinting with her pain. She was advised to continue supportive care. She states hydrocodone was an adequately controlling her pain, we will try oxycodone. Patient advised to follow-up as an outpatient. Patient discharged. ED Disposition - Plan for ED Patient: Disposition: Home or Assisted Living Diagnosis: Back contusion Instructions: ED Back Contusion Prescriptions: Oxycodone HCl/Acetaminophen [Percocet 5/325] 1 tab PO Q6H PRN PRN 3 Days #12 tab PRN Reason: Pain Prescription Printed Referrals: Miya Goldman DO [Primary Care Provider] -
[2020-02-03] MEDS: Morphine 4 MG/ML Syringe IV (17:26)
[2020-02-03] MEDS: Ondansetron 4 MG/2 ML Vial IV (17:26)
[2020-02-03 17:49] LABS: Absolute Lymphocyte Count 1.36 X10^3/uL (0.83-4.51); Absolute Neutrophil Count 4.3 X10^3/uL (2.0-7.7); Basophil# 0.01 X10^3/uL; Basophil% 0.2 % (0-1); Eosinophils% 3.1 % (0-5); Hematocrit 35.1 % (37-47); Hemoglobin 12.2 g/dL (12.0-15.0); Lymphocyte # 1.36 X10^3/ul (4.0); Mean Corp Hgb Conc 34.8 g/dL (32-36); Mean Corpuscular Volume 89.1 fL (81-99); Mean Platelet Vol. 9.8 fl (6.2-12.0); Monocyte% 9.3 % (0-10); NRBC Flagged by Analyzer 0 % (0-5); Neutrophil # 4.28 X10^3/uL (2.7-7.7); Neutrophil % 66.1 % (47-70); Platelet Count 236 K/mm3 (150-450); RBC Distribution Width CV 12.4 % (11.6-14.6); RBC Distribution Width SD 40.8 fl (35.1-43.9); Red Blood Count 3.94 M/mm3 (4.2-5.4); White Blood Count 6.5 K/mm3 (4.4-11.0)
[2020-02-03 18:07] LABS: International Normalized Ratio 2.2; Prothrombin Time (Protime)PT. 24.1 SECONDS (11.7-14.9)
[2020-02-03 18:09] LABS: ALB/GLOB Ratio 0.9 RATIO (0.9-2.4); AST(SGOT) 42 U/L (15-37); Alanine Aminotransfer ALT/SGPT 36 U/L (13-56); Albumin, Serum 3.1 g/dL (3.2-5.0); Alkaline Phosphatase 125 U/L (45-117); Anion Gap 3 (5-15); BUN 21 mg/dL (7-18); BUN/Creat Ratio 25.1 RATIO (10-20); Calcium,Total 8.3 mg/dL (8.5-10.1); Chloride 108 mmol/L (98-107); Creatinine, Serum 0.84 mg/dL (0.55-1.02); EST Glomerular Filtration Rate 75 mL/min (>60); Est Glom Filt Rate - Afr Amer 91 mL/min (>60); Estimated Creatinine Clearance 66.11 ml/min; Globulin 3.5 g/dL (2.2-4.2); Glucose 84 mg/dL (74-106); Potassium 4.4 mmol/L (3.5-5.1); Protein, Total 6.6 g/dL (6.4-8.2); Sodium Level 139 mmol/L (136-145)
== END 2020-02-03 19:40 | disposition home or self-care (01) ==
PROVIDERS: Emergency Provider Emergency Medicine; PCP Family Medicine
DX: S20.229A Contusion of unspecified back wall of thorax, initial encounter (principal); W00.0XXA Fall on same level due to ice and snow, initial encounter; Y93.9 Activity, unspecified; Y92.89 Other specified places as the place of occurrence of the external cause; Y99.9 Unspecified external cause status; K56.7 Ileus, unspecified; M43.17 Spondylolisthesis, lumbosacral region; Z79.01 Long term (current) use of anticoagulants; Z82.49 Family history of ischemic heart disease and other diseases of the circulatory system; Z90.49 Acquired absence of other specified parts of digestive tract; Z90.710 Acquired absence of both cervix and uterus; Z90.79 Acquired absence of other genital organ(s); Z95.2 Presence of prosthetic heart valve
CPT/HCPCS: 71260; 74177; 80053; 85025; 85610; 96374; 96375; 99282; Q9967; A4216; J2405

== ENCOUNTER → 2020-02-11 13:13 | Outpatient (CLI) | payer OTHER, SELFPAY ==
[2020-02-03 16:42] VITALS: BMI 30.9
[2020-02-12 07:50] LABS: SARS-COV-2 TOTAL ABS Nonreactive (Nonreactive)
== END ==
PROVIDERS: PCP Family Medicine; Visit Provider Family Medicine
DX: Z20.828 Contact with and (suspected) exposure to other viral communicable diseases (principal)
CPT/HCPCS: 36415; 86769

== ENCOUNTER → 2020-04-14 13:09 | Outpatient (CLI) | payer OTHER, SELFPAY ==
--- NOTE | 2020-04-14 11:45 | LES_PTH ---
PATIENT: JOÃO MUJICA LOC: [facility] U#:[id number] AGE/SX: 59/F ROOM: RE04/14/[address]: Dr. Miya Goldman DO : 1965 BED: DIS: SPEC #: [id number] RECD: 04/14/20 14:45 STATUS: BENJA VETO #: [id number] DOREEN: 04/14/20 11:[address]: Miya Goldman DEPT: SURGICAL PATHOLOGY RECD BY: Rosa Alvarado Tissues: Skin, NOS Procedures: Surgery Specimen Level IV HEADER OPERATION: Punch biopsy right supraclavicular fossa PRE-OP DIAGNOSIS: Abnormal nevus, favor benign but rule out melanoma TISSUE SUBMITTED: 5 mm punch biopsy right supraclavicular fossa MICROSCOPIC DIAGNOSIS Right supraclavicular fossa, punch biopsy: Consistent with lentigo with seborrheic keratosis like features. Negative for malignancy. See comment. SJ:dimitri 04/16/2020 COMMENT Multiple levels are examined. Clinical correlation and appropriate follow up are necessary. MICROSCOPIC DESCRIPTION Slides are reviewed. GROSS DESCRIPTION Received is one container labeled with the patient's name and not further designated. The specimen consists of a piece of means-white skin measuring 0.4 x 0.2 cm and up to 0.1 cm in thickness. A dark brown lesion is noted on the surface measuring 0.2 cm in greatest dimension. The entire specimen is submitted in one cassette. / SJ:dimitri 04/15/20 TC:5 CPT: 05773
== END ==
PROVIDERS: PCP Family Medicine; Visit Provider Family Medicine
DX: D22.9 Melanocytic nevi, unspecified (principal); L82.1 Other seborrheic keratosis
CPT/HCPCS: 88305

== ENCOUNTER → 2020-04-22 08:06 | Outpatient (CLI) | payer OTHER, SELFPAY ==
[2020-04-22 12:23] LABS: International Normalized Ratio 2.6; Prothrombin Time (Protime)PT. 27.8 SECONDS (11.7-14.9)
== END ==
PROVIDERS: PCP Family Medicine; Visit Provider Family Medicine
DX: Z95.2 Presence of prosthetic heart valve (principal)
CPT/HCPCS: 36415; 85610

== ENCOUNTER 2020-05-02 13:06 | Outpatient (RCR) | payer OTHER, SELFPAY ==
[2020-05-02 15:54] LABS: International Normalized Ratio 2.5; Prothrombin Time (Protime)PT. 26.6 SECONDS (11.7-14.9)
== END 2020-05-02 18:00 | disposition home or self-care (01) ==
LOC: MTLAB 13:06
PROVIDERS: PCP Family Medicine; Referring Provider Family Medicine; Visit Provider Family Medicine
DX: Z95.2 Presence of prosthetic heart valve (principal)
CPT/HCPCS: 36415; 85610

== ENCOUNTER → 2020-05-16 13:00 | Outpatient (CLI) | payer OTHER, SELFPAY ==
[2020-05-16 15:10] LABS: Basophil# 0.03 X10^3/uL; Basophil% 0.5 % (0-1); Eosinophil# 0.22 X10^3/uL; Eosinophils% 3.5 % (0-5); Hematocrit 37.7 % (37-47); Lymphocyte % 22.4 % (19-41); Mean Corp Hgb Conc 34.5 g/dL (32-36); Mean Corpuscular Hgb 30.6 pg (27.0-32.0); Mean Corpuscular Volume 88.7 fL (81-99); Mean Platelet Vol. 10.1 fl (6.2-12.0); Monocyte# 0.57 X10^3/uL; Monocyte% 9.1 % (0-10); NRBC Flagged by Analyzer 0 % (0-5); Neutrophil # 4.02 X10^3/uL (2.7-7.7); Neutrophil % 64.3 % (47-70); Platelet Count 279 K/mm3 (150-450); RBC Distribution Width CV 13.2 % (11.6-14.6); RBC Distribution Width SD 42.8 fl (35.1-43.9); Red Blood Count 4.25 M/mm3 (4.2-5.4); White Blood Count 6.3 K/mm3 (4.4-11.0)
[2020-05-16 15:22] LABS: International Normalized Ratio 2.6
[2020-05-16 16:23] LABS: ALB/GLOB Ratio 0.9 RATIO (0.9-2.4); AST(SGOT) 27 U/L (15-37); Alanine Aminotransfer ALT/SGPT 31 U/L (13-56); Albumin, Serum 3.4 g/dL (3.2-5.0); Alkaline Phosphatase 118 U/L (45-117); Anion Gap 6 (5-15); BUN 21 mg/dL (7-18); Calcium,Total 9.3 mg/dL (8.5-10.1); Chloride 106 mmol/L (98-107); Creatinine, Serum 1.05 mg/dL (0.55-1.02); EST Glomerular Filtration Rate 58 mL/min (>60); Est Glom Filt Rate - Afr Amer 70 mL/min (>60); Globulin 3.8 g/dL (2.2-4.2); Glucose 77 mg/dL (74-106); Potassium 3.8 mmol/L (3.5-5.1); Protein, Total 7.2 g/dL (6.4-8.2); Sodium Level 139 mmol/L (136-145); Thyroid Stim Hormone (TSH) 0.98 uIU/mL (0.358-3.74)
== END ==
PROVIDERS: PCP Family Medicine; Referring Provider Family Medicine; Visit Provider Family Medicine
DX: K58.1 Irritable bowel syndrome with constipation (principal); Z95.2 Presence of prosthetic heart valve
CPT/HCPCS: 36415; 80053; 84443; 85025; 85610

== ENCOUNTER 2020-06-13 13:44 | Outpatient (RCR) | payer OTHER, SELFPAY ==
[2020-06-13 17:23] LABS: International Normalized Ratio 2.6; Prothrombin Time (Protime)PT. 27.4 SECONDS (11.7-14.9)
== END 2020-06-13 18:00 | disposition home or self-care (01) ==
LOC: MTLAB 13:44
PROVIDERS: PCP Family Medicine; Referring Provider Family Medicine; Visit Provider Family Medicine
DX: Z95.2 Presence of prosthetic heart valve (principal)
CPT/HCPCS: 36415; 85610

== ENCOUNTER 2020-08-08 09:29 | Outpatient (RCR) | payer OTHER, SELFPAY ==
[2020-07-16 08:29] LABS: International Normalized Ratio 2.6; Prothrombin Time (Protime)PT. 26.7 SECONDS (11.7-14.9)
[2020-08-08 10:15] LABS: Prothrombin Time (Protime)PT. 30.3 SECONDS (11.7-14.9)
== END 2020-08-08 18:00 | disposition home or self-care (01) ==
LOC: LAB 09:29
PROVIDERS: PCP Family Medicine; Referring Provider Family Medicine; Visit Provider Family Medicine
DX: Z95.2 Presence of prosthetic heart valve (principal)
CPT/HCPCS: 36415; 85610

== ENCOUNTER 2020-11-15 07:08 | Outpatient (RCR) | payer OTHER, SELFPAY | END 2020-12-14 02:43 | disposition home or self-care (01) | LOC: LAB 07:08 | PROVIDERS: PCP Family Medicine; Referring Provider Family Medicine; Visit Provider Family Medicine | DX: Z95.2 Presence of prosthetic heart valve (principal) | CPT/HCPCS: 36416; 85610 ==

== ENCOUNTER 2020-12-16 12:04 | Outpatient (RCR) | payer OTHER, SELFPAY ==
[2020-12-14 02:43] VITALS: BMI 30.9
[2020-12-16 12:21] LABS: INR Fingerstick 2.4; Prothrombin Time Fingerstick 26.6 SEC (11.9-14.4)
== END 2021-01-13 18:00 | disposition home or self-care (01) ==
LOC: LAB 12:04
PROVIDERS: PCP Family Medicine; Referring Provider Family Medicine; Visit Provider Family Medicine
DX: Z95.2 Presence of prosthetic heart valve (principal)
CPT/HCPCS: 36416; 85610

== ENCOUNTER 2023-05-10 07:00 | Outpatient (RCR) | payer OTHER, SELFPAY ==
[2023-05-10 07:47] LABS: Hematocrit 36.5 % (37-47); Hemoglobin 12.2 g/dL (12.0-15.0); Mean Corp Hgb Conc 33.4 g/dL (32-36); Mean Corpuscular Volume 83.9 fL (81-99); Mean Platelet Vol. 9.9 fl (6.2-12.0); Platelet Count 316 K/mm3 (150-450); RBC Distribution Width CV 13.4 % (11.6-14.6); RBC Distribution Width SD 41.3 fl (35.1-43.9); Red Blood Count 4.35 M/mm3 (4.2-5.4); White Blood Count 6.8 K/mm3 (4.4-11.0)
[2023-05-10 09:07] LABS: International Normalized Ratio 2.4; Prothrombin Time (Protime)PT. 25.9 SECONDS (11.7-14.9)
== END 2023-05-14 18:00 | disposition home or self-care (01) ==
LOC: LAB 07:00
PROVIDERS: PCP Family Medicine
DX: Z79.01 Long term (current) use of anticoagulants (principal)
CPT/HCPCS: 36415; 85027; 85610

== ENCOUNTER 2023-06-30 10:51 | Outpatient (RCR) | payer OTHER, SELFPAY ==
[2023-06-17 09:47] LABS: International Normalized Ratio 2.1; Prothrombin Time (Protime)PT. 23.4 SECONDS (11.7-14.9)
[2023-06-30 11:33] LABS: International Normalized Ratio 2.2
== END 2023-06-30 18:00 | disposition home or self-care (01) ==
LOC: LAB 10:51
PROVIDERS: PCP Family Medicine
DX: Z79.01 Long term (current) use of anticoagulants (principal)
CPT/HCPCS: 36415; 85610

== ENCOUNTER → 2023-07-03 | Outpatient (CLI) | payer OTHER, SELFPAY ==
[2023-07-05 16:09] LABS: H. PYLORI STOOL AG Negative (Negative)
== END | disposition home or self-care (01) ==
LOC: LABSPEC 04:53
PROVIDERS: PCP Family Medicine
DX: A04.8 Other specified bacterial intestinal infections (principal)
CPT/HCPCS: 87338

== ENCOUNTER 2023-09-25 10:11 | Outpatient (CLI) | payer OTHER, SELFPAY ==
[2023-09-25 10:37] LABS: International Normalized Ratio 2.5; Prothrombin Time (Protime)PT. 26.5 SECONDS (11.7-14.9)
--- NOTE | 2023-09-29 09:18 | PCM.PN.BLA ---
Progress Note Gardenia Dc contacted me in my role as employee advocate for the self-funded plan of [facility]. [facility] Her provider has not been accessible and she was concerned that she was overdue for her Mammogram (her last one was in June 2021). She has not had any abnormal mammograms in the past. She denies any concerning lesions. She requested that I assist her with scheduling her screening mammogram. With her written permission by email, I reviewed her chart (her last mammogram in our facility was from 2019...there were no concerning findings). I scheduled her for the mammogram and notified her by email. I asked her to notify me of her scheduled date and time so that I could follow up on her results.
== END 2023-09-25 23:59 | disposition home or self-care (01) ==
LOC: LAB 10:15
PROVIDERS: PCP Family Medicine; Visit Provider Specialist
DX: Z79.01 Long term (current) use of anticoagulants (principal)
CPT/HCPCS: 36415; 85610

== ENCOUNTER → 2023-10-25 | Outpatient (CLI) | payer OTHER, SELFPAY ==
[2023-10-25 12:49] LABS: International Normalized Ratio 2.3; Prothrombin Time (Protime)PT. 25.5 SECONDS (11.7-14.9)
[2023-10-25 13:40] LABS: Hematocrit 35.4 % (37-47); Hemoglobin 11.5 g/dL (12.0-15.0); Mean Corp Hgb Conc 32.5 g/dL (32-36); Mean Corpuscular Hgb 27.2 pg (27.0-32.0); Mean Corpuscular Volume 83.7 fL (81-99); Platelet Count 296 K/mm3 (150-450); RBC Distribution Width CV 15.2 % (11.6-14.6); RBC Distribution Width SD 45.9 fl (35.1-43.9); Red Blood Count 4.23 M/mm3 (4.2-5.4); White Blood Count 8.6 K/mm3 (4.4-11.0)
== END | disposition home or self-care (01) ==
LOC: POLAB3 12:27
PROVIDERS: PCP Family Medicine; Visit Provider Specialist
DX: Z79.01 Long term (current) use of anticoagulants (principal); Z79.83 Long term (current) use of bisphosphonates
CPT/HCPCS: 85027; 85610

== ENCOUNTER 2023-11-08 09:08 | Outpatient (RCR) | payer OTHER, SELFPAY ==
[2023-11-08 09:51] LABS: International Normalized Ratio 2.3; Prothrombin Time (Protime)PT. 24.7 SECONDS (11.7-14.9)
== END 2023-11-08 18:00 | disposition home or self-care (01) ==
LOC: LAB 09:08
PROVIDERS: PCP Family Medicine
DX: R79.89 Other specified abnormal findings of blood chemistry (principal); R74.8 Abnormal levels of other serum enzymes; Z79.01 Long term (current) use of anticoagulants
CPT/HCPCS: 85610

== ENCOUNTER → 2023-11-16 | Outpatient (CLI) | payer OTHER, SELFPAY ==
[2023-11-16 10:09] LABS: AST(SGOT) 22 U/L (15-37); Alanine Aminotransfer ALT/SGPT 30 U/L (13-56); Albumin, Serum 3.7 g/dL (3.2-5.0); Alkaline Phosphatase 148 U/L (45-117); Bilirubin, Direct 0.13 mg/dL (0.00-0.30); Globulin 3.7 g/dL (2.2-4.2); Protein, Total 7.4 g/dL (6.4-8.2)
== END | disposition home or self-care (01) ==
LOC: POLAB3 09:11
PROVIDERS: PCP Family Medicine
DX: R74.8 Abnormal levels of other serum enzymes (principal)
CPT/HCPCS: 80076

== ENCOUNTER 2023-11-23 12:51 | Outpatient (RCR) | payer OTHER, SELFPAY ==
[2023-11-23 13:28] LABS: Absolute Lymphocyte Count 1.74 X10^3/uL (0.83-4.51); Absolute Neutrophil Count 12.6 X10^3/uL (2.0-7.7); Basophil# 0.04 X10^3/uL; Basophil% 0.3 % (0-1); Eosinophil# 0.23 X10^3/uL; Eosinophils% 1.5 % (0-5); Hematocrit 36.7 % (37-47); Hemoglobin 12.1 g/dL (12.0-15.0); Lymphocyte # 1.74 X10^3/ul (0.83-4.51); Lymphocyte % 11.2 % (19-41); Mean Corpuscular Hgb 28.1 pg (27.0-32.0); Mean Corpuscular Volume 85.2 fL (81-99); Mean Platelet Vol. 9.8 fl (6.2-12.0); Monocyte# 0.89 X10^3/uL; Monocyte% 5.7 % (0-10); NRBC Flagged by Analyzer 0 % (0-5); Neutrophil # 12.56 X10^3/uL (2.7-7.7); Neutrophil % 80.9 % (47-70); Platelet Count 278 K/mm3 (150-450); RBC Distribution Width CV 14.8 % (11.6-14.6); RBC Distribution Width SD 46.4 fl (35.1-43.9); Red Blood Count 4.31 M/mm3 (4.2-5.4); White Blood Count 15.5 K/mm3 (4.4-11.0)
[2023-11-23 13:39] LABS: International Normalized Ratio 2.5
[2023-12-02 12:55] LABS: Hematocrit 37.4 % (37-47); Hemoglobin 12.5 g/dL (12.0-15.0); Mean Corp Hgb Conc 33.4 g/dL (32-36); Mean Corpuscular Hgb 28.6 pg (27.0-32.0); Mean Corpuscular Volume 85.6 fL (81-99); Mean Platelet Vol. 9.8 fl (6.2-12.0); Platelet Count 283 K/mm3 (150-450); RBC Distribution Width CV 14.4 % (11.6-14.6); RBC Distribution Width SD 45.1 fl (35.1-43.9); Red Blood Count 4.37 M/mm3 (4.2-5.4); White Blood Count 12.5 K/mm3 (4.4-11.0)
[2023-12-02 13:25] LABS: International Normalized Ratio 2.3; Prothrombin Time (Protime)PT. 24.9 SECONDS (11.7-14.9)
== END 2023-12-15 23:59 ==
LOC: POLAB3 12:51
PROVIDERS: PCP Family Medicine
DX: Z79.83 Long term (current) use of bisphosphonates (principal); Z79.01 Long term (current) use of anticoagulants
CPT/HCPCS: 85025; 85027; 85610

== ENCOUNTER 2023-11-23 16:32 | Emergency (ER) | payer OTHER, SELFPAY ==
[2023-11-23 16:33] VITALS: BP 143/81; PULSE 84; RESP 16; TEMP 36.2; O2SAT 100; BMI 31.6
--- NOTE | 2023-11-23 16:53 | EX.ED.VISEXT ---
HPI History of Present Illness HPI Narrative: 58-year-old female picked up what she thought was a mole it turned out to be a bat and bit her in her right hand on the proximal aspect of her right long finger. This occurred on Tuesday. She was told to come to the emergency department to be evaluated for possible rabies vaccine. She denies any complaints. Chief Complaint: Bite Informant: patient Occured/Mechanism Comment: Bat bite right hand. Narrative Prior similar symptoms: No Recent Illness/Hospitalization: No ROS ROS ED ROS Narrative Denies any recent illness. Constitutional Constitutional ED: Denies chills or fever(s) Eyes Eyes: Denies blurry vision ENT ENT ED: Denies ear pain Cardiovascular Cardiovascular: Denies chest pain Respiratory/Chest Respiratory/Chest: Denies cough Gastrointestinal Gastrointestinal: Denies abdominal pain Genitourinary Genitourinary ED: Denies dysuria Musculoskeletal Musculoskeletal: Denies arthralgias Integumentary Denies abscess Neurologic Neurologic: Denies headache(s) Psychiatric Psychiatric: Denies anxiety Endocrine Endocrinology: Denies polydipsia Hematologic/Lymphatic Hematologic/Lymphatic: Denies easy bleeding or easy bruising Allergic/Immunologic Allergic/Immunologic ED: Denies mouth swelling PFSH PFS Medical History Thoracic aortic aneurysm Nonrheumatic aortic (valve) insufficiency Bicuspid aortic valve Hyperlipidemia GERD (gastroesophageal reflux disease) History of malignant neoplasm of cervix Abnormal Pap smear of cervix Hypertension Home Medications ?Medication ?Instructions ?Recorded ?Last Taken ?Type estradiol 1 mg tablet 1 mg PO DAILY hot flash 04/09/19 04/09/19 History multivitamin 1 ea PO DAILY 07/16/19 Unknown History warfarin 3 mg tablet 3 mg PO DAILY Managed by WI #30 12/18/21 Unknown Rx tabs Allergy/AdvReac Type Severity Reaction Status Date / Time No Known Allergies Allergy Verified 11/23/23 16:33 Family History Grandmother Heart disease Mother Heart disease Surgical History Status post aortic valve replacement (~05/28/09) History of thoracic aortic aneurysm repair (~05/28/09) History of aortic valve replacement with metallic valve (~05/28/09) delivery delivered S/P gastroplasty Hx of cholecystectomy femur surgery Mechanical heart valve present Hx of abdominal hysterectomy Social History Smoking Status: Never smoker alcohol intake: never substance use type: does not use caffeine: Yes what type of physical activity do you participate in: running and other details: crossfit frequency: 3-4 times per week seatbelt use: always do you feel safe at home: Yes additional social history: Claudia Ramirez Daily 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 Vital signs stable afebrile. H EENT exam unremarkable. Neck nontender. No lymphadenopathy. Lungs clear to auscultation. Heart regular rhythm no murmur. Abdomen soft nontender. Moving all 4 extremities. Right hand she believes she was bit on the proximal aspect of her right long finger there is no signs of a bite or infection. There is no swelling or redness. She has full flexion extension of all digits of the right hand. Neurovascular intact. Otherwise exam unremarkable. Const Vital Signs: 11/23/23 16:33 Temperature 97.1 F L Temperature Source Temporal Pulse Rate 84 Respiratory Rate 16 Blood Pressure 143/81 H Blood Pressure Mean 101 Pulse Ox 100 Oxygen Delivery Method Room Air Positive well nourished and well developed; Negative for cachectic, contractures or unkempt General Appearance ED: well developed and NAD; Negative for unkempt, cachectic or contractures Nutritional Appearance: Negative for cachectic HEENT Reports moist mucous membranes normocephalic and atraumatic; Negative for trauma Eyes PERRL and EOMs intact bilaterally Neck full ROM and no lymphadenopathy Resp normal respiratory effort and clear to auscultation bilaterally Cardio regular rate, regular rhythm, S1 normal heart sound and S2 normal heart sound GI non-tender, non-distended and no masses Back/Spine no CVA tenderness Extremity normal to inspection and full ROM Extremity Narrative: No signs of any acute bite or infection. No swelling or redness. Neuro oriented x3 and CN's II-XII intact bilaterally Sensorium / Orientation: alert, oriented to person, oriented to place and oriented to time; Negative for orientation impaired, confused, lethargic or stuporous Motor Exam: strength 5/5 throughout Psych mental status grossly normal and thought process normal Appearance: Negative for unkempt Skin skin turgor normal Lesions: no lesions Rashes: no rashes MDM MDM MDM Narrative Medical decision making narrative: 58-year-old female bat bite to her right hand on Tuesday. She will be started on rabies vaccination protocol and received rabies immunoglobulin also. History & Record Review Discussion w/independent historian: Patient Discharge Plan Triage Chief Complaint: Bite ED Provider: Tylor Velasquez Dx/Rx/DC Orders Clinical Impression: Bat bite of finger, Chronic anticoagulation, History of valvular heart disease Instructions: ED Animal Bite (General) Prescriptions: No Action estradiol 1 mg tablet 1 mg PO DAILY multivitamin 1 EACH powder in packet 1 ea PO DAILY warfarin 3 mg tablet 3 mg PO DAILY Qty: 30 3RF Primary Care Provider: Tacho Ochoa Referrals: Tacho Ochoa MD [Primary Care Provider] - As Needed Activity Restrictions/Additional Instructions: Follow-up with the other 3 rabies vaccines at day 3, day 7 and day 14. If your hand shows any signs of infection, which does not have at this time, return. This would include swelling, redness or streaks. Print Language: Israeli Disposition Disposition: Home, Self Care
[2023-11-23] MEDS: Rabies Vaccine,Human Diploid 2.5 UNITS Vial IM (17:10)
[2023-11-23] MEDS: Rabies Immune Globulin 150 U/ML 2ml Vial 170 U IM (17:11)
[2023-11-23] MEDS: Rabies Immune Globulin/PF 300 UNIT/ML, 5 ML VIAL 1500 UNIT IM (17:12)
== END 2023-11-23 17:41 | disposition home or self-care (01) ==
LOC: ED 16:57
PROVIDERS: Emergency Provider Emergency Medicine; Visit Provider Emergency Medicine
DX: S61.451A Open bite of right hand, initial encounter (principal); Z90.710 Acquired absence of both cervix and uterus; E78.5 Hyperlipidemia, unspecified; Z79.01 Long term (current) use of anticoagulants; Z87.74 Personal history of (corrected) congenital malformations of heart and circulatory system; I10 Essential (primary) hypertension; Z95.3 Presence of xenogenic heart valve; Z90.49 Acquired absence of other specified parts of digestive tract; Z23 Encounter for immunization; W55.81XA Bitten by other mammals, initial encounter
CPT/HCPCS: 90675; 99283; 90375

== ENCOUNTER 2023-11-26 14:48 | Outpatient (CLI) | payer OTHER, SELFPAY ==
[2023-11-26 14:49] VITALS: BP 112/72; PULSE 70; RESP 16; TEMP 35.5; O2SAT 97
[2023-11-26 15:13] VITALS: BP 110/70; PULSE 65; RESP 16; TEMP 36.1; O2SAT 99
[2023-11-26] MEDS: Rabies Vaccine,Human Diploid 2.5 UNITS Vial IM (15:17)
== END 2023-11-26 17:20 | disposition home or self-care (01) ==
PROVIDERS: Visit Provider Emergency Medicine
DX: Z29.14 Encounter for prophylactic rabies immune globulin (principal); Z23 Encounter for immunization
CPT/HCPCS: 90675; 96372

== ENCOUNTER → 2023-11-30 | Outpatient (CLI) | payer OTHER, SELFPAY ==
[2023-11-30 17:18] VITALS: BP 145/85; PULSE 69; PULSE 73; RESP 16; TEMP 36.3; O2SAT 97; O2SAT 99
[2023-11-30] MEDS: Rabies Vaccine,Human Diploid 2.5 UNITS Vial IM (17:40)
[2023-11-30 17:42] VITALS: BP 130/74; PULSE 68; RESP 16; TEMP 36.2; O2SAT 99
== END | disposition home or self-care (01) ==
PROVIDERS: Visit Provider Emergency Medicine
DX: Z23 Encounter for immunization (principal)
CPT/HCPCS: 90675; 96372

== ENCOUNTER 2023-12-07 16:16 | Outpatient (CLI) | payer OTHER, SELFPAY ==
[2023-12-07 16:16] VITALS: BP 126/77; PULSE 71; RESP 16; O2SAT 99
[2023-12-07] MEDS: Rabies Vaccine,Human Diploid 2.5 UNITS Vial IM (16:44)
[2023-12-07 16:49] VITALS: BP 126/77; PULSE 71; RESP 16; TEMP 36.9; O2SAT 99
--- OUTSIDE RECORDS SUMMARY | 2023-12-07 19:52 | XMS RPT_ITS | CCD ---
Author Organization [facility] Care Team Providers Care Joiner Helper Name Role Phone Charles FISHMAN, Jodi Dejesus Unavailable Ashley GUERIN, Andrew Borja Unavailable [phone] Chance Carolina Admitting Unavailable Chance Carolina Attending Unavailable Miya Goldman Primary Care Unavailable Kristyn Montiel Unavailable Unavailable [facility] Primary Care Physician Unavailable [facility] [place] Primary [facility] Provider [phone] SHARON BLAKELY DO Attending Unavailable [facility] Primary Care Unavailable DR SHABBIR KILPATRICK MD Attending Unavailable [facility] Primary Care Unavailable DR SHABBIR KILPATRICK MD Attending Unavailable [facility] Primary Care Unavailable AUSTIN GUERIN, DR HESS Attending Unavailabl e [facility] Primary Care Unavailable DR DESHAWN AVILA MD Attending Unavailabl e [facility] Primary Care Unavailable CARMEN MARES Attending Unavailable [facility] Primary Care Unavailable SRIDHAR ESPINOZA DO Attending Unavailable [facility] Primary Care Unavailable CARMEN MARES Attending Unavailable [facility] Primary Care Unavailable MARY, JAYASHREE Referring Unavailable [facility] Unavailable JENNIFER SALAS Referring Unavailable [facility] Unavailable [facility] Primary Care Unavailable MARY, JAYASHREE Referring Unavailable FREDERICK COLVIN Attending Unavailable [facility] Primary Care Unavailable MARY JAYASHREE Attending Unavailable MARY, JAYASHREE Referring Unavailable MARY, JAYASHREE Referring Unavailable MARY JAYASHREE Attending Unavailable MARY JAYASHREE Attending Unavailable MARY, JAYASHREE Referring Unavailable MARY JAYASHREE Attending Unavailable [facility] Unavailable [facility] Primary Care Unavailable JENNIFER SALAS Attending Unavailable SANDRINE HUMPHRIES Attending Unavailable [facility] Unavailable Allergies Allergy Classification Reported Allergen(s) Allergy Type Date of Onset Reaction(s) Facility Benzodiazepines (1 source) Temazepam Drug Allergy 01-06-20 10 Other: See Comments [facility] Work Phone: HMG-CoA Reductase Inhibitors (statins) (3 sources) atorvastatin Drug Allergy 10-14-19 10 Other: See Comments [facility] Work Phone: Macrolides (antibiotic) (1 source) Clarithromycin Drug Allergy 05-27-19 24 GI Upset [facility] (3 sources) traMADol; Translations: [TRAMADOL] food allergy 06-12-19 15 [facility] Work Phone: (1 source) No Known Medication Allergies; Translations: [No Known Medication Allergies] Propensity to adverse reactions to drug (disorder) [facility] Rep[facility] (20 sources) Pravastatin; Translations: [PRAVASTATIN SODIUM] Drug Allergy 10-14-19 10 [facility] Work Phone: (20 sources) Temazepam; Translations: [TEMAZEPAM] Drug Allergy 01-06-20 10 Other: See Comments [facility] Work Phone: (20 sources) atorvastatin; Translations: [ATORVASTATIN] Drug Allergy 04-18-19 Other: See Comments [facility] Work Phone: (20 sources) rosuvastatin; Translations: [ROSUVASTATIN] Drug Allergy 04-28-19 24 Other: See Comments [facility] Work Phone: (18 sources) Clarithromycin; Translations: [CLARITHROMYCIN] Drug Allergy 05-27-19 24 GI Upset [facility] Medications Current Medications Medication Drug Class(es) Dates Sig (Normalized) Sig (Original) acetaminophen 325 mg oral tablet (20 sources) Start: 06-10-2009 acetaminophen(TYLE NOL 325 MG TAB) Take two(2) tablets every four(4) to six(6) hours as needed for pain. 0 06/10/2009 Active Comment on above: Take two(2) tablets every four(4) to six(6) hours as needed for pain. amoxicillin 500 mg oral tablet (11 sources) Penicillin-class Antibacterial Start: 05-17-2023 End: 05-31-2023 take 2 tablets by mouth twice daily Amoxicillin 500 mg tablet Indications: Helicobacter pylori gastritis Take 2 tablets by mouth two times a day for 14 days. 56 tablet 0 05/17/2023 05/31/2023 Active Start: 06-13-2014 End: 03-03-2015 take 4 tablets by mouth every hour AMOXICILLIN 500 MG TABS 4 tablets by mouth 1 hr prior to procedure AMOXICILLIN [id number] Andrew Ramirez MD Comment on above: Take 2 tablets by mo [facility] two times a day for 14 days. amoxicillin 875 mg / clavulanate 125 mg oral tablet (1 source) Penicillin-class Antibacterial Start: End: take 1 tablet by mouth every twelve hours amoxicillin-clavulanat e 875 mg-125 mg oral tablet 1 tab(s), Oral, q12h, X 10 day(s), # 20 tab(s), 0 Refill(s), 04/11/23 9:40:00 AM EST, 84.1 Start Date: 04/01/23 Stop Date: 04/11/23 Status: Ordered benzonatate 100 mg oral capsule (1 source) Non-narcotic Antitussive Start: End: Tessalon Perles 100 mg oral capsule Dose : 100 mg = 1 cap(s), Oral, TID, X 7 day(s), # 21 cap(s), 0 Refill(s), 12/22/21 2:42:00 EST Start Date: 12/15/21 Stop Date: 12/22/21 Status: Ordered bismuth subsalicylate 262 mg chewable tablet (19 sources) Bismuth Start: End: take 1 tablet by mouth four times daily bismuth subsalicylate (BISMUTH) 262 mg chewable tablet Indications: Helicobacter pylori infection Take 1 tablet by mouth four times daily for 14 days. 56 tablet 05/23/2023 Active Comment on above: Take 1 tablet by rui four times daily for 14 days. clarithromycin 500 mg oral tablet (5 sources) Macrolide Antimicrobial Start: End: take 1 tablet by mouth twice daily clarithromycin (BIAXIN) 500 mg Indications: Helicobacter pylori gastritis Take 1 tablet by mouth two times a day for 14 days. 28 tablet 0 05/17/2023 05/31/2023 Active Comment on above: Take 1 tablet by rui th two times a day for 14 days. cyclobenzaprine hydrochloride 5 mg oral tablet (2 sources) Muscle Relaxant Start: End: cyclobenzaprine 5 mg oral tablet Dose : 5 mg = 1 tab(s), Oral, TID, X 5 day(s), # 15 tab(s), 0 Refill(s), 12/12/22 11:44:00 AM EDT Start Date: 12/07/22 Stop Date: 12/12/22 Status: Ordered Start: 02-11-2022 End: 02-16-2022 cyclobenzaprine 10 mg oral t ablet Dose : 10 mg = 1 tab(s), Oral, TID, PRN Pain, X 5 day(s), # 15 tab(s), 0 Refill(s), 02/16/22 14:42:00 EST, Lumbar strain Start Date: 02/11/22 Stop Date: 02/16/22 Status: Ordered estradiol 1 mg oral tablet (11 sources) Estrogen Start: 05-19-2021 estradiol 1 mg oral tablet Dose : 0.5 mg = 0.5 tab(s), Oral, qDay, 0 Refill(s) Start Date: 05/19/21 Status: Ordered lidocaine 0.05 mg/mg medicated patch (1 source) Antiarrhythmic, Amide Local Anesthetic Start: 12-07-2022 End: 12-14-2022 lidocaine 5% topical patch Apply 1 patch(es), Topical, qDay, remove patches after 12 hours, X 7 day(s), # 7 patch(es), 0 Refill(s), 84 Start Date: 12/07/22 Stop Date: 12/14/22 Status: Ordered lisinopril 20 mg oral tablet (20 sources) Angiotensin Converting Enzyme Inhibitor Start: 02-25-2023 lisinopril (ZESTRIL) 20 mg tablet Take 30 mg by mouth. 02/25/2023 Active Start: 02-25-2023 lisinopril 20 mg oral tablet Dose : 20 mg = 1 tab(s), Oral, Daily, # 100 tab(s), 0 Refill(s) Start Date: 02/25/23 Status: Ordered Comment on above: Take 20 mg by mouth. lysine 1000 mg oral tablet (20 sources) Start: 06-11-2022 lysine HCL 1,000 mg tab TAKE BY MOUTH EVERY DAY 06/11/2022 Active Start: 05-19-2021 lysine 500 mg oral tablet Dose : 1,000 mg = 2 tab(s), Oral, Daily, 0 Refill(s) Start Date: 05/19/21 Status: Ordered Comment on above: TAKE BY MOUTH EVERY DAY metroNIDAZOLE 250 mg oral tablet (5 sources) Nitroimidazole Antimicrobial Start: End: take 1 tablet by mouth four times daily metroNIDAZOLE (FLAGYL) 250 mg tablet Indications: Helicobacter pylori infection Take 1 tablet by mouth four times daily for 14 days. 56 tablet 0 05/23/2023 06/06/2023 Active Comment on above: Take 1 tablet by [facility] four times daily for 14 days. naproxen 250 mg oral tablet (1 source) Nonsteroidal Anti-inflammatory Drug Start: End: naproxen 250 mg oral tablet Dose : 250 mg = 1 tab(s), Oral, BID, X 7 day(s), # 14 tab(s), 0 Refill(s), 12/14/22 11:44:00 AM EDT Start Date: 12/07/22 Stop Date: 12/14/22 Status: Ordered ondansetron 4 mg disintegrating oral tablet (2 sources) Serotonin-3 Receptor Antagonist Start: End: ondansetron 4 mg oral tablet, disintegrating Dose : 4 mg = 1 tab(s), Oral, q8h, X 3 day(s), # 9 tab(s), 0 Refill(s), 12/18/21 2:42:00 EDT Start Date: 12/15/21 Stop Date: 12/18/21 Status: Ordered Start: 09-06-2021 End: 09-09-2021 ondansetron 4 mg oral tablet , disintegrating Dose : 4 mg = 1 tab(s), Oral, q8h, PRN as needed for nausea/vomiting, X 3 day(s), # 6 tab(s), 0 Refill(s), 09/09/21 20:46:00 EDT Start Date: 09/06/21 Stop Date: 09/09/21 Status: Ordered pantoprazole 40 mg delayed release oral tablet (20 sources) Proton Pump Inhibitor Start: 06-04-2022 End: 12-29-2023 take 1 tablet by mouth twice daily pantoprazole DR (PROTONIX) 40 mg tablet Indications: Gastroesophageal reflux disease with esophagitis without hemorrhage Take 1 tablet by mouth two times a day. 180 tablet 09/30/2023 12/29/2023 Active Start: 07-20-2012 End: 09-30-2023 take 1 tablet by mouth once daily before breakfast pantoprazole 40 mg tablet Take 1 tablet by mouth daily before breakfast. Take on empty stomach, 1/2 hr before meal. 30 tablet 0 07/20/2012 05/23/2023 Discontinued Comment on above: Take 1 tablet by rui th daily before breakfast. Take on empty stomach, 1/2 hr before meal. Take 1 tablet by rui th two times a day for 14 days. SUMAtriptan 50 mg oral tablet (9 sources) Serotonin-1b and Serotonin-1d Receptor Agonist Start: 09-07-19 SUMAtriptan 50 mg oral tablet 0 Refill(s) Start Date: 09/06/21 Status: Ordered tetracycline hydrochloride 500 mg oral capsule (5 sources) Tetracycline-class Antimicrobial Start: 05-23-19 End: 06-06-19 take 1 capsule by mouth at bedtime tetracycline (SUMYCIN) 500 mg cap Indications: Helicobacter pylori infection Take 1 capsule by mouth before meals and at bedtime for 14 days. 56 capsule 0 05/23/2023 06/06/2023 Active Comment on above: Take 1 capsule by mo uth before meals and at bedtime for 14 days. topiramate 25 mg oral tablet (18 sources) Start: 09-07-19 topiramate 25 mg oral tablet 0 Refill(s) Start Date: 09/06/21 Status: Ordered Start: 12-24-2014 End: 07-02-2016 take 1 tablet by mouth once daily TOPAMAX 50 MG TABS One tablet by mouth daily TOPIRAMATE [id number] Andrew Ramirez MD Start: 12-24-2014 TOPAMAX 25 MG TABS as needed for migraine headaches TOPIRAMATE [id number] Shiela Nguyen RN trospium chloride 20 mg oral tablet (20 sources) Cholinergic Muscarinic Antagonist Start: 09-17-2022 trospium (SANCTURA) 20 mg tablet 20 mg. 09/17/2022 Active Comment on above: 20 mg. valACYclovir 500 mg oral tablet (20 sources) Herpesvirus Nucleoside Analog DNA Polymerase Inhibitor, Herpes Simplex Virus Nucleoside Analog DNA Polymerase Inhibitor, Herpes Zoster Virus Nucleoside Analog DNA Polymerase Inhibitor Start: 06-11-2022 take 1 tablet by mouth once daily valACYclovir (VALTREX) 500 mg tablet Take 1 tablet by mouth once daily. 06/11/2022 Active Start: 09-06-2021 valACYclovir 5 00 mg oral tablet 0 Refill(s), 85.8 Start Date: 09/06/21 Status: Ordered Comment on above: Take 1 tablet by [facility] once daily. vitamin b12 1 mg oral tablet (20 sources) Vitamin B12 take 1 tablet by mouth once daily cyanocobalamin (VITAMIN B-12) 1,000 mcg tab Take 1,000 mcg by mouth once daily. Active Comment on above: Take 1,000 mcg by [facility] once daily. warfarin sodium 3 mg oral tablet (20 sources) Vitamin K Antagonist Start: 5 take 1 tablet by mouth once daily COUMADIN 4 MG TABS One tablet by mouth daily at supper, or as directed WARFARIN SODIUM [id number] Jodi Wing PA-C Start: 10-22-2014 COUMADIN 2 MG TABS Take as directed-current dose is 2 mg alternating with 5 mg every other day WARFARIN SODIUM [id number] Andrew Ramirez MD Start: 10-22-2014 COUMADIN 2 MG TABS Take as directed-current dose is 2 mg alternating with 5 mg every other day WARFARIN SODIUM [id number] Andrew Ramirez MD Start: 06-13-2014 End: 11-26-2014 take 1 tablet by mouth once daily COUMADIN 5 MG TABS One tablet by mouth daily WARFARIN SODIUM [id number] Andrew Ramirez MD Start: 06-11-2014 End: 11-26-2014 COUMADIN 2.5 MG TABS Current ly takes 5 mg daily but if INR goes down, take additional 2.5 mg as directed; if INR goes up, take only 2.5 mg as directed WARFARIN SODIUM [id number] Andrew Ramirez MD Start: 06-11-2014 COUMADIN 2.5 M G TABS Take as directed WARFARIN SODIUM [id number] Lita Crocker RN Start: 10-13-2011 warfarin (COUM BHAVANA) 3 mg tablet 60 tablet 5 10/13/2011 Active Start: 10-13-2011 End: 02-02-2016 warfarin (COUMADIN) 3 mg tab let Start: 10-13-2011 warfarin (COUM BHAVANA) 2.5 mg tablet Take 7.5mg Tuesdays and 5mg all other days as directed. 60 tablet 5 10/13/2011 Active Comment on above: Take 7.5mg Tuesdays and 5mg all other days as directed. Completed/Discontinued Medications Medication Drug Class(es) Dates Sig (Normalized) Sig (Original) Aspirin (9 sources) Platelet Aggregation Inhibitor, Nonsteroidal Anti-inflammatory Drug Start: 07-02-2016 take 1 tablet by mouth once daily ASPIR-81 81 MG TBEC One tablet by mouth daily ASPIRIN [id number] Andrew Ramirez MD Start: 07-02-2016 take 1 tablet by rui once daily ASPIR-81 81 MG TBEC One tablet by mouth daily ASPIRIN [id number] Andrew Ramirez MD Start: 06-11-2014 End: 06-13-2014 take 1 tablet by mouth once daily ASPIRIN 81 MG TABS One tablet by mouth daily ASPIRIN [id number] Andrew Ramirez MD Start: 06-11-2014 End: 06-13-2014 take 1 tablet by mouth once daily ASPIRIN 81 MG TABS One tablet by mouth daily ASPIRIN [id number] Andrew Ramirez MD citalopram 20 mg oral tablet (6 sources) Serotonin Reuptake Inhibitor Start: 06-11-2014 End: 06-13-2014 take 1 tablet by mouth once daily CELEXA 20 MG TABS One tablet by mouth daily CITALOPRAM HYDROBROMIDE [id number] Andrew Ramirez MD Collegan peptides (11 sources) Start: 05-19-2021 Collegan peptides Collegan peptides, See Instructions, 600 mg DAILY, 0 Refill(s), 84 Start Date: 05/19/21 Status: Ordered dexlansoprazole 30 mg disintegrating oral tablet (6 sources) Proton Pump Inhibitor Start: 06-11-2014 End: 03-03-2015 take 1 tablet by mouth once daily DEXILANT 30 MG CPDR One tablet by mouth daily DEXLANSOPRAZOLE [id number] Andrew Ramirez MD Start: 06-11-2014 End: 03-03-2015 take 1 tablet by mouth once daily DEXILANT 30 MG CPDR One tablet by mouth daily DEXLANSOPRAZOLE [id number] Andrew Ramirez MD ergocalciferol 09958 unt oral tablet (6 sources) Provitamin D2 Compound Start: 06-11-2014 End: 06-13-2014 take 1 tablet by mouth every week VITAMIN D (ERGOCALCIFEROL) 57798 UNIT CAPS One tablet by mouth weekly ERGOCALCIFEROL [id number] Andrew Ramirez MD Start: 06-11-2014 End: 06-13-2014 take 1 tablet by mouth every week VITAMIN D (ERGOCALCIFEROL) 65127 UNIT CAPS One tablet by mouth weekly ERGOCALCIFEROL [id number] Andrew Ramirez MD esomeprazole 40 mg injection (6 sources) Proton Pump Inhibitor Start: 06-11-2014 End: 06-13-2014 take 1 tablet by mouth once daily NEXIUM 40 MG CPDR One tablet by mouth daily ESOMEPRAZOLE MAGNESIUM [id number] Lita Crocker RN Start: 06-11-2014 End: 06-13-2014 take 1 tablet by mouth once daily NEXIUM 40 MG CPDR One tablet by mouth daily ESOMEPRAZOLE MAGNESIUM [id number] Lita Crocker RN ferrous sulfate (6 sources) Start: 06-11-2014 End: 06-13-2014 take 1 tablet by mouth once daily IRON 325 (65 Fe) MG TABS One tablet by mouth daily FERROUS SULFATE [id number] Andrew Ramirez MD Start: 06-11-2014 take 1 tablet by rui th once daily IRON 325 (65 Fe) MG TABS One tablet by mouth daily FERROUS SULFATE [id number] Lita Crocker RN hydroCHLOROthiazide 12.5 mg / lisinopril 10 mg oral tablet (3 sources) Thiazide Diuretic, Angiotensin Converting Enzyme Inhibitor Start: 06-11-2014 take 1 tablet by mouth once daily LISINOPRIL-HYDROCHLOROTHIAZIDE 10-12.5 MG TABS One tablet by mouth daily LISINOPRIL-HYDROCHLOROTHIAZIDE [id number] Lita Crocker RN 50/50 release 24 hr methylphenidate hydrochloride 20 mg extended release oral capsule (1 source) Central Nervous System Stimulant Start: 08-11-2011 take 1 capsule by mouth once daily methylphenidate LA (RITALIN LA) 20 mg 24 hr capsule Indications: ADD (attention deficit disorder) Take 1 capsule by mouth once daily. 30 capsule 0 08/11/2011 Active Comment on above: Take 1 capsule by mo [facility] once daily. metoprolol tartrate 25 mg oral tablet (7 sources) beta-Adrenerg ic Taisha Start: 06-11-2014 End: 06-13-2014 take 1 tablet by mouth twice daily METOPROLOL TARTRATE 25 MG TABS One half tablet by mouth twice daily METOPROLOL TARTRATE [id number] Lita Crocker RN Start: 06-10-2011 take 1 tablet by rui once daily metoprolol succinate XL, long acting, (TOPROL XL) 25 mg ORAL 24 hr tablet Indications: Hypertension Take 1 tablet by mouth once daily. 30 tablet 5 06/10/2011 Active Comment on above: Take 1 tablet by rui once daily. MULTIPLE VITAMIN (6 sources) Start: 06-11-2014 take 1 tablet by mouth once daily MULTIVITAMINS TABS One tablet by mouth daily MULTIPLE VITAMIN Lita Crocker RN Start: 06-11-2014 End: 06-13-2014 take 1 tablet by mouth once daily MULTIVITAMINS TABS One tablet by mouth daily MULTIPLE VITAMIN Andrew Ramirez MD OMEGA-3 FATTY ACIDS CPDR (4 sources) Start: 06-11-2014 take 1 tablet by mouth once daily OMEGA 3 CPDR One tablet by mouth daily OMEGA-3 FATTY ACIDS CPDR [id number] Lita Crocker RN Start: 06-11-2014 End: 06-13-2014 take 1 tablet by mouth once daily OMEGA 3 CPDR One tablet by mouth daily OMEGA-3 FATTY ACIDS CPDR [id number] Andrew Ramirez MD OMEGA-3 FATTY ACIDS CPDR (2 sources) Start: 06-11-2014 take 1 tablet by mouth once daily OMEGA 3 CPDR One tablet by mouth daily OMEGA-3 FATTY ACIDS CPDR [id number] Lita Crocker RN Start: 06-11-2014 End: 06-13-2014 take 1 tablet by mouth once daily OMEGA 3 CPDR One tablet by mouth daily OMEGA-3 FATTY ACIDS CPDR [id number] Andrew Ramirez MD potassium chloride 10 meq oral tablet (6 sources) Start: 11-19-2021 End: 11-29-2021 Potassium Chloride (Eqv-K-Tab) 10 mEq oral tablet, extended release Dose : 10 mEq = 1 tab(s), Oral, BID, # 20 tab(s), 0 Refill(s), Hypokalemia Start Date: 11/19/21 Stop Date: 11/29/21 Status: Ordered sucralfate 1000 mg oral tablet (9 sources) Aluminum Complex Start: 06-04-2022 End: 07-04-2022 sucralfate 1 g oral tablet Dose : 1 gram(s) = 1 tab(s), Oral, TID, # 90 tab(s), 0 Refill(s), Pharmacy: [facility], 162.6, cm, 06/02/22 20:05:00 EDT, Height Start Date: 06/04/22 Stop Date: 07/04/22 Status: Ordered Problems Active Problems Problem Classification Problem Date Documented Da te Episodic/Chronic Acute posthemorrhagic anemia (1 source) Acute posthemorrhagic anemia; Translations: [Acute posthemorrhagic anemia] Episodic Anxiety disorders (20 sources) Posttraumatic stress disorder; Translations: [Post-traumatic stress disorder, unspecified] Onset: 1 05-19-2021 Chronic Aortic; peripheral; and visceral artery aneurysms (20 sources) Aneurysm of thoracic aorta; Translations: [Thoracic aortic aneurysm, without rupture] Onset: 9 03-19-2010 Chronic Deficiency and other anemia (1 source) Nutritional anemia; Translations: [Nutritional anemia, unspecified] 07-28-2023 Episodic Disorders of lipid metabolism (20 sources) Hyperlipidemia; Translations: [Hyperlipidemia, unspecified] Onset: 5 06-11-2014 Chronic Disorders usually diagnosed in infancy, childhood, or adolescence (20 sources) Attention deficit hyperactivity disorder, predominantly inattentive type; Translations: [Other specified behavioral and emotional disorders with onset usually occurring in childhood and adolescence] Onset: 2 07-15-2011 Chronic Esophageal disorders (20 sources) Gastroesophageal reflux disease; Translations: [Gastro-esophageal reflux disease without esophagitis] Onset: 9 03-19-2010 Chronic Esophageal disorders (2 sources) Esophageal disorders; Translations: [Gastroesophageal reflux disease with esophagitis without hemorrhage] Onset: Essential hypertension (20 sources) Hypertensive disorder; Translations: [Essential (primary) hypertension] Onset: 2 06-11-2014 Chronic Fluid and electrolyte disorders (1 source) Hypokalemia; Translations: [Hypokalemia] Onset: Episodic Gastroduodenal ulcer (except hemorrhage) (1 source) Gastric ulcer; Translations: [Gastric ulcer, unspecified as acute or chronic, without hemorrhage or perforation] Chronic Gastrointestinal hemorrhage (1 source) Hematemesis; Translations: [Hematemesis] Episodic Headache; including migraine (20 sources) Migraine without aura; Translations: [Migraine without aura, not intractable, without status migrainosus] Onset: 9 03-19-2010 Chronic Heart valve disorders (20 sources) Aortic valve disorder; Translations: [Rheumatic mitral valve disease, unspecified] Onset: 9 06-13-2014 Chronic Miscellaneous mental health disorders (20 sources) 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 Mood disorders (20 sources) Depressive disorder; Translations: [Other specified depressive episodes] Onset: 9 03-19-2010 Chronic Nonspecific chest pain (20 sources) Chest pain 09-10-2020 Episodic Nutritional deficiencies (20 sources) Vitamin D deficiency; Translations: [Vitamin D deficiency, unspecified] Onset: 9 03-19-2010 Chronic Other aftercare (7 sources) Long-term current use of anticoagulant; Translations: [skilled nursing (current) use of anticoagulants] Episodic Other aftercare (1 source) Drug monitoring done; Translations: [Encounter for therapeutic drug level monitoring] Episodic Other aftercare (2 sources) Long-term current use of drug therapy; 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] Episodic Other gastrointestinal disorders (5 sources) History of bariatric surgical procedure; Translations: [Bariatric surgery status] 04-22-2023 Episodic Other injuries and conditions due to external causes (1 source) Traumatic AND/OR non-traumatic injury; Translations: [Injury, unspecified, initial encounter] Onset: 4 Episodic Other liver diseases (1 source) Alkaline phosphatase raised; Translations: [Abnormal levels of other serum enzymes] 10-18-2023 Episodic Other lower respiratory disease (1 source) Dyspnea; Translations: [Dyspnea, unspecified] Onset: 2 Episodic Other nutritional; endocrine; and metabolic disorders (5 sources) Body mass index (BMI) 30.0-30.9, adult; Translations: [Body mass index (BMI) 33.0-33.9, adult] Onset: 5 07-02-2016 Chronic Other nutritional; endocrine; and metabolic disorders (1 source) Body mass index (BMI) 33.0-33.9, adult; Translations: [Body mass index (BMI) 33.0-33.9, adult] Onset: 5 06-13-2014 Chronic Other nutritional; endocrine; and metabolic disorders (20 sources) Body mass index 30+ - obesity 05-24-2021 Chronic Other nutritional; endocrine; and metabolic disorders (20 sources) Morbid obesity; Translations: [Morbid (severe) obesity due to excess calories] Onset: 9 02-09-2021 Chronic Other nutritional; endocrine; and metabolic disorders (6 sources) Obesity; Translations: [Obesity, unspecified] Chronic Other nutritional; endocrine; and metabolic disorders (2 sources) Obesity, unspecified; Translations: [Class 1 obesity with serious comorbidity and body mass index (BMI) of 31.0 to 31.9 in adult, unspecified obesity type] Onset: 4 Chronic Other nutritional; endocrine; and metabolic disorders (1 source) Body mass index (BMI) 31.0-31.9, adult; Translations: [Class 1 obesity with serious comorbidity and body mass index (BMI) of 31.0 to 31.9 in adult, unspecified obesity type] Onset: 4 Chronic Other nutritional; endocrine; and metabolic disorders (1 source) Body mass index (BMI) 32.0-32.9, adult; Translations: [Class 1 obesity with serious comorbidity and body mass index (BMI) of 32.0 to 32.9 in adult, unspecified obesity type] Onset: 4 Chronic Other nutritional; endocrine; and metabolic disorders (20 sources) Weight gain 05-24-2021 Episodic Other screening for suspected conditions (not mental disorders or infectious disease) (1 source) Hormone increase; Translations: [Other specified abnormal findings of blood chemistry] 10-18-2023 Episodic Residual codes; unclassified (20 sources) Obstructive sleep apnea syndrome; Translations: [Obstructive sleep apnea (adult) (pediatric)] Onset: 1 02-09-2021 Chronic Residual codes; unclassified (2 sources) Obstructive sleep apnea (adult) (pediatric); Translations: [Obstructive sleep apnea] Onset: 1 Chronic Spondylosis; intervertebral disc disorders; other back problems (1 source) Backache; Translations: [Dorsalgia, unspecified] Onset: 3 Episodic Sprains and strains (1 source) Lower back injury; Translations: [Strain of muscle, fascia and tendon of lower back, initial encounter] Onset: 2 Episodic Syncope (4 sources) Syncope and collapse; Translations: [Syncope and collapse] Onset: 6 11-27-2015 Episodic Thyroid disorders (20 sources) Subacute thyroiditis; Translations: [Subacute thyroiditis] Onset: 0 03-19-2010 Chronic Unclassified (2 sources) Replacement of aortic valve ; Translations: [Presence of prosthetic heart valve] Onset: 5 06-11-2014 Unclassified (1 source) Established Patient Onset: Past or Other Problems Problem Classification Problem Date Documented Da te Episodic/Chronic Abdominal pain (2 sources) Epigastric pain; Translations: [Epigastric pain] Onset: 11-05-2022 Episodic Blindness and vision defects (3 sources) Visual disturbance; Translations: [Unspecified visual disturbance] Onset: 07-02-2016 07-02-2016 Episodic Deficiency and other anemia (2 sources) Nutritional anemia, unspecified; Translations: [Nutritional anemia] Onset: 07-28-2023 Episodic Esophageal disorders (20 sources) Esophagitis; Translations: [Esophagitis, unspecified] Onset: 10-20-2010 10-20-2010 Episodic Gastritis and duodenitis (20 sources) Acute gastritis; Translations: [Acute gastritis without bleeding] Onset: 10-20-2010 10-20-2010 Episodic Genitourinary symptoms and ill-defined conditions (20 sources) Microscopic hematuria; Translations: [Other microscopic hematuria] Onset: 06-18-2010 06-18-2010 Episodic Intestinal infection (6 sources) Infection caused by Helicobacter pylori; Translations: [Other specified bacterial intestinal infections] Onset: 05-27-2023 05-17-2023 Episodic Nausea and vomiting (2 sources) Vomiting; Translations: [Vomiting, unspecified] Onset: 09-06-2021 Episodic Other gastrointestinal disorders (2 sources) Bariatric surgery status; Translations: [History of bariatric surgery] Onset: 03-11-2023 Episodic Residual codes; unclassified (5 sources) FH: Hypertension; Translations: [Family history of ischemic heart disease and other diseases of the circulatory system] 06-11-2014 Episodic Residual codes; unclassified (1 source) Family history of ischemic heart disease and other diseases of the circulatory system; Translations: [Family history of ischemic heart disease and other diseases of the circulatory system] 06-11-2014 Episodic Results Test Name Value Interpretation Reference Range Facility [facility] 11-02-2023 LEONEL Telephone (AGGENS4) GARDENIA MUJICA ([id number]) 1965 F CHT Date Time Provider Department 11/02/23 FREDERICK COLVIN AGGENS4 During your visit today, we recorded the following information about you: Ovidio Humphries 11/02/2023 11:34 AM Signed LVM for pt to call back 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 Around 11/25/23 Ulexpmlo[facility] GERD-SEE TE 07/31 Allergies As of Date: 11/02/2023 Noted Allergy Reaction ATORVASTATIN 04/18/2023 14 - Other: See Comments Comments: Cramp, Generalized aches and pains ROSUVASTATIN 04/28/2023 14 - Other: See Comments Comments: Cramp, Generalized aches and pains CLARITHROMYCIN 05/27/2023 8 - GI Upset Comments: Made ill, nausea, headache PRAVACHOL (PRAVASTATIN SODIUM) 10/13/2009 TEMAZEPAM 01/05/2010 14 - Other: See Comments Comments: Joint and muscle pain and stiffness Date Reviewed: 10/28/2023 Reviewed by: Frederick Colvin APRN.TIRE SETTER - Fully Assessed Reason for Visit: Appointment [186] Prescriptions as of 11/02/2023 - pantoprazole DR (PROTONIX) 40 mg tablet Take 1 tablet by mouth two times a day. - bismuth subsalicylate (BISMUTH) 262 mg chewable tablet Take 1 tablet by mouth four times daily for 14 days. - lisinopril (ZESTRIL) 20 mg tablet Take 30 mg by mouth. - valACYclovir (VALTREX) 500 mg tablet Take 1 tablet by mouth once daily. - trospium (SANCTURA) 20 mg tablet 20 mg. - lysine HCL 1,000 mg tab TAKE BY MOUTH EVERY DAY - cyanocobalamin (VITAMIN B-12) 1,000 mcg tab Take 1,000 mcg by mouth once daily. - warfarin (COUMADIN) 3 mg tablet - acetaminophen(TYLENOL 325 MG TAB) Take two(2) tablets every four(4) to six(6) hours as needed for pain. 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] 06/10/2008 Depressive disorder, not elsewhere classified [*06/10/2008 Mgrn wo aura wo intrc mgr [G43.009] 06/10/2008 Esophageal reflux [K21.9] 06/10/2008 Morbid obesity (HCC) [E66.01] 06/10/2008 Vitamin D deficiency [E55.9] 10/02/2008 Aortic regurgitation [I35.1] 10/05/2008 Heart valve replaced by other means [Z95.4] 11/19/2009 Thyroiditis, painless [E06.1] 01/05/2010 Obstructive sleep apnea [G47.33] 03/19/2010 PTSD (post-traumatic stress disorder) [F43.10] 04/29/2010 Dysthymia [F34.1] 04/29/2010 Microscopic hematuria [R31.29] 06/18/2010 Esophagitis, unspecified [K20.90] 10/20/2010 Acute gastritis without mention of hemorrhage [*10/20/2010 Hypertension [I10] 07/15/2011 ADD (attention deficit disorder) [F98.8] 07/15/2011 Preop examination [Z01.818] 05/13/2023 Gastroesophageal reflux disease [K21.9] 05/13/2023 H/O mechanical aortic valve replacement [Z95.2] 05/13/2023 Encounter Status:Closed by OVIDIO HUMPHRIES on 11/02/23 Normal [facility] 25(OH)D3 [facility] 2023 25-hydroxyvitamin D3 [Mass/Vol] 31.1 ng/mL Normal 31.0-80.0 [facility] Comment on above: Order Comment: Speci men Type: BLOOD SPECIMEN Ordering Facility: [facility] Address: [address] [place] [address] Result Comment: Clas sification of 25 [place] Vitamin D status: Deficiency/Insufficiency: < or = 30 ng/ml. Sufficiency/Optimal Levels: 31-80 ng/mL Toxicity: > 100 ng/mL. Test performed by chemiluminescent immunoassay. Performed By: #### B 1WB #### [facility] CLIA [id number] [address] [place] [address] [place] [address] [place] CBC panel Auto (Bld)on 10-13 Erythrocyte distribution width (RBC) [Ratio] 14.7 % Normal 11.5-15.0 [facility] Comment on above: Order Comment: Speci men Type: BLOOD SPECIMEN Ordering Facility: [facility] Address: [address] [place] [address] Performed By: #### B 1WB #### [facility] CLIA [id number] [address] [place] [address] [place] Hematocrit (Bld) [Volume fraction] 33.4 % Low 36.0-46.0 [facility] Comment on above: Order Comment: Speci men Type: BLOOD SPECIMEN Ordering Facility: [facility] Address: [address] [place] [address] Performed By: #### B 1WB #### [facility] CLIA [id number] [address] [place] [address] [place] Hemoglobin (Bld) [Mass/Vol] 10.9 g/dL Low 11.5-15.5 [facility] Comment on above: Order Comment: Speci men Type: BLOOD SPECIMEN Ordering Facility: [facility] Address: [address] [place] [address] Performed By: #### B 1WB #### [facility] CLIA [id number] [address] [place] [address] [place] MCH (RBC) [Entitic mass] 27.3 pg Normal 26.0-34.0 [facility] Comment on above: Order Comment: Speci men Type: BLOOD SPECIMEN Ordering Facility: [facility] Address: [address] [place] [address] Performed By: #### B 1WB #### [facility] CLIA [id number] [address] [place] [address] [place] MCHC (RBC) [Mass/Vol] 32.6 g/dL Normal 30.5-36.0 [facility] Comment on above: Order Comment: Speci men Type: BLOOD SPECIMEN Ordering Facility: [facility] Address: [address] [place] [address] Performed By: #### B 1WB #### [facility] CLIA [id number] [address] [place] [address] [place] MCV (RBC) [Entitic vol] 83.5 fL Normal 80.0-100.0 [facility] Comment on above: Order Comment: Speci men Type: BLOOD SPECIMEN Ordering Facility: [facility] Address: [address] [place] [address] Performed By: #### B 1WB #### [facility] CLIA [id number] [address] [place] [address] [place] Nucleated RBC (Bld) [#/Vol] 10*3/uL Normal <0.01 [facility] Comment on above: Order Comment: Speci men Type: BLOOD SPECIMEN Ordering Facility: [facility] Address: [address] [place] [address] Performed By: #### B 1WB #### [facility] CLIA [id number] [address] [place] [address] [place] Platelet mean volume (Bld) [Entitic vol] 9.7 fL Normal 9.0-12.7 [facility] Comment on above: Order Comment: Speci men Type: BLOOD SPECIMEN Ordering Facility: [facility] Address: [address] [place] [address] Performed By: #### B 1WB #### [facility] CLIA [id number] [address] [place] [address] [place] Platelets (Bld) [#/Vol] 264 10*3/uL Normal 150-400 [facility] Comment on above: Order Comment: Speci men Type: BLOOD SPECIMEN Ordering Facility: [facility] Address: [address] [place] [address] Performed By: #### B 1WB #### [facility] CLIA [id number] [address] [place] [address] [place] RBC (Bld) [#/Vol] 4.00 10*6/uL Normal 3.90-5.20 [facility] Comment on above: Order Comment: Speci men Type: BLOOD SPECIMEN Ordering Facility: [facility] Address: [address] [place] [address] Performed By: #### B 1WB #### [facility] CLIA [id number] [address] [place] [address] [place] WBC (Bld) [#/Vol] 6.02 10*3/uL Normal 3.70-11.00 [facility] Comment on above: Order Comment: Speci men Type: BLOOD SPECIMEN Ordering Facility: [facility] Address: [address] [place] [address] Performed By: #### B 1WB #### [facility] CLIA [id number] [address] [place] [address] [place] Comprehensive metabolic 2000 panelon 10-14-2023 Albumin [Mass/Vol] 4.2 g/dL Normal 3.9-4.9 [facility] Comment on above: Order Comment: Speci men Type: BLOOD SPECIMEN Ordering Facility: [facility] Address: [address] [place] [address] Performed By: #### 2 4323-8 #### [id number] [address] [place] [address] [place] ALP [Catalytic activity/Vol] 147 U/L High 34-123 [facility] Comment on above: Order Comment: Speci men Type: BLOOD SPECIMEN Ordering Facility: [facility] Address: [address] [place] [address] Performed By: #### 2 4323-8 #### [facility] [id number] [address] [place] [address] [place] ALT [Catalytic activity/Vol] 21 U/L Normal 7-38 [facility] Comment on above: Order Comment: Speci men Type: BLOOD SPECIMEN Ordering Facility: [facility] Address: [address] [place] [address] Performed By: #### 2 4323-8 #### [facility] CLIA [id number] [address] [place] [address] [place] Anion gap [Moles/Vol] 11 mmol/L Normal 8-15 [facility] Comment on above: Order Comment: Speci men Type: BLOOD SPECIMEN Ordering Facility: [facility] Address: [address] [place] [address] Performed By: #### 2 4323-8 #### [facility] CLIA [id number] [address] [place] [address] [place] AST [Catalytic activity/Vol] 24 U/L Normal 13-35 [facility] Comment on above: Order Comment: Speci men Type: BLOOD SPECIMEN Ordering Facility: [facility] Address: [address] [place] [address] Performed By: #### 2 4323-8 #### [facility] CLIA [id number] [address] [place] [address] [place] Bilirubin [Mass/Vol] 0.4 mg/dL Normal 0.2-1.3 [facility] Comment on above: Order Comment: Speci men Type: BLOOD SPECIMEN Ordering Facility: [facility] Address: [address] [place] [address] Performed By: #### 2 4323-8 #### [facility] CLIA [id number] [address] [place] [address] [place] Calcium [Mass/Vol] 9.7 mg/dL Normal 8.5-10.2 [facility] Comment on above: Order Comment: Speci men Type: BLOOD SPECIMEN Ordering Facility: [facility] Address: [address] [place] [address] Performed By: #### 2 4323-8 #### [facility] CLIA [id number] [address] [place] [address] [place] Chloride [Moles/Vol] 106 mmol/L Normal 98-107 [facility] Comment on above: Order Comment: Speci men Type: BLOOD SPECIMEN Ordering Facility: [facility] Address: [address] [place] [address] Performed By: #### 2 4323-8 #### [facility] CLIA [id number] [address] [place] [address] [place] CO2 [Moles/Vol] 23 mmol/L Normal 22-30 [facility] Comment on above: Order Comment: Speci men Type: BLOOD SPECIMEN Ordering Facility: [facility] Address: [address] [place] [address] Performed By: #### 2 4323-8 #### [facility] CLIA [id number] [address] [place] [address] [place] Creatinine [Mass/Vol] 0.82 mg/dL Normal 0.58-0.96 [facility] Comment on above: Order Comment: Speci men Type: BLOOD SPECIMEN Ordering Facility: [facility] Address: [address] [place] [address] Performed By: #### 2 4323-8 #### [facility] CLIA [id number] [address] [place] [address] Creatinine and Glomerular filtration rate.predicted panel (S/P/Bld) 83 mL/min/1.73m??? Normal >=60 [facility] Comment on above: Order Comment: Speci men Type: BLOOD SPECIMEN Ordering Facility: [facility] Address: [address] [place] [address] Result Comment: Susie mated Glomerular Filtration Rate (eGFR) is calculated using the 2020 CKD-EPI creatinine equation. This equation utilizes serum creatinine, sex, and age as parameters. The creatinine assay has traceable calibration to isotope dilution-mass spectrometry. Refer to KDIGO guidelines for clinical interpretation. In patients with unstable renal function, e.g. those with acute kidney injury, the eGFR may not accurately reflect actual GFR. Performed By: #### 2 4323-8 #### [facility] CLIA [id number] [address] [place] [address] [place] Glucose [Mass/Vol] 92 mg/dL Normal 74-99 [facility] Comment on above: Order Comment: Dominic steel Type: BLOOD SPECIMEN Ordering Facility: [facility] Address: [address] [place], [place] [id number] Result Comment: The [place] Diabetes Association (ADA) provides guidance for cutoff values for fasting glucose and random glucose. The ADA defines fasting as no caloric intake for at least 8 hours. Fasting plasma glucose results between 100 to 125 mg/dL indicate increased risk for diabetes (prediabetes). Fasting plasma glucose results greater than or equal to 126 mg/dL meet the criteria for diagnosis of diabetes. In the absence of unequivocal hyperglycemia, results should be confirmed by repeat testing. In a patient with classic symptoms of hyperglycemia or hyperglycemic crisis, random plasma glucose results greater than or equal to 200 mg/dL meet the criteria for diagnosis of diabetes. Reference: Standards of Medical Care in Diabetes 2016, [place] Diabetes Association. Diabetes Care. 2016.39(Suppl 1). Performed By: #### 2 4323-8 #### [facility] CLIA [id number] [address] [place] [address] [place] Potassium [Moles/Vol] 3.8 mmol/L Normal 3.7-5.1 [facility] Comment on above: Order Comment: Dominic steel Type: BLOOD SPECIMEN Ordering Facility: [facility] Address: [address] [place] [address] Performed By: #### 2 4323-8 #### [facility] CLIA [id number] [address] [place] [address] [place] Protein [Mass/Vol] 6.8 g/dL Normal 6.3-8.0 [facility] Comment on above: Order Comment: Speci men Type: BLOOD SPECIMEN Ordering Facility: [facility] Address: [address] [place] [address] Performed By: #### 2 4323-8 #### [facility] CLIA [id number] [address] [place] [address] [place] Sodium [Moles/Vol] 140 mmol/L Normal 136-144 [facility] Comment on above: Order Comment: Speci men Type: BLOOD SPECIMEN Ordering Facility: [facility] Address: [address] [place] [address] Performed By: #### 2 4323-8 #### [facility] CLIA [id number] [address] [place] [address] [place] Urea nitrogen [Mass/Vol] 21 mg/dL Normal 7-21 [facility] Comment on above: Order Comment: Speci men Type: BLOOD SPECIMEN Ordering Facility: [facility] Address: [address] [place] [address] Performed By: #### 2 4323-8 #### [facility] CLIA [id number] [address] [place] [address] [place] Ferritin SerPl-mCncon 2023 Ferritin [Mass/Vol] 22.9 ng/mL Normal 14.7-205.1 [facility] Comment on above: Order Comment: Speci men Type: BLOOD SPECIMEN Ordering Facility: [facility] Address: [address] [place] [address] Performed By: #### B 1WB #### [facility] CLIA [id number] [address] [place] [address] [place] Folate SerPl-mCncon 10-14-19 24 Folate [Mass/Vol] 11.6 ng/mL Normal >4.7 [facility] Comment on above: Order Comment: Speci men Type: BLOOD SPECIMEN Ordering Facility: [facility] Address: [address] [place] [address] Performed By: #### 2 132-9, 2284-8, 2731-8 #### [facility] CLIA [id number] [address] [place] [address] [place] HbA1c (Bld)on 10-14-2023 Average glucose Estimated from glycated hemoglobin (Bld) [Mass/Vol] 111 mg/dL Normal [facility] Comment on above: Order Comment: Dominic steel Type: BLOOD SPECIMEN Ordering Facility: [facility] Address: [address] [place] [address] Result Comment: eAG: (Estimated average glucose) is a calculated value from HgbA1c and is hardware supplies sales representative of the average blood glucose level in the last 2-3 month period. Performed By: #### B 1WB #### [facility] CLIA [id number] [address] [place] [address] [place] HbA1c (Bld) [Mass fraction] 5.5 % Normal 4.3-5.6 [facility] Comment on above: Order Comment: Dominic steel Type: BLOOD SPECIMEN Ordering Facility: [facility] Address: [address] [place] [address] Result Comment: [place] Diabetes Association guidelines indicate that patients with HgbA1c in the range 5.7-6.4% are at increased risk for development of diabetes, and intervention by lifestyle modification may be beneficial. HgbA1c greater or equal to 6.5% is considered diagnostic of diabetes. Performed By: #### B 1WB #### [facility] CLIA [id number] [address] [place] [address] [place] Iron and Iron binding capaci ty panelon 10-14-2023 Iron [Mass/Vol] 40 ug/dL Low 41-186 [facility] Comment on above: Order Comment: Dominic steel Type: BLOOD SPECIMEN Ordering Facility: [facility] Address: [address] [place] [address] Performed By: #### 3 016-3, 15680-3, 2276-4 #### [facility] CLIA [id number] [address] [place] [address] [place] #### 13746-4 #### [facility] CLIA [id number] [address] [place] [address] [place] [facility] CLIA [id number] [address] [place] [address] [place] Iron binding capacity [Mass/Vol] 348 ug/dL Normal 232-386 [facility] Comment on above: Order Comment: Speci men Type: BLOOD SPECIMEN Ordering Facility: [facility] Address: [address] [place] [address] Performed By: #### 3 016-3, 65905-0, 2275-05 #### [facility] CLIA [id number] [address] [place] [address] [place] #### 75060-1 #### [facility] CLIA [id number] [address] [place] [address] [place] [facility] CLIA [id number] [address] [place] [address] [place] Iron/TIBC [Molar ratio] 11.5 % Low 15.0-57.0 [facility] Comment on above: Order Comment: Speci men Type: BLOOD SPECIMEN Ordering Facility: [facility] Address: [facility] [place] [address] Performed By: #### 3 016-3, 03229-2, 2275-05 #### [facility] CLIA [id number] [address] [place] [address] [place] #### 13942-8 #### [facility] CLIA [id number] [address] [place] [address] [place] [facility] CLIA [id number] [address] [place] [address] [place] Lipid 1996 panelon 4 Cholesterol [Mass/Vol] 182 mg/dL Normal <200 [facility] Comment on above: Order Comment: Speci men Type: BLOOD SPECIMEN Ordering Facility: [facility] Address: [address] [place] [address] Result Comment: <200 mg/dL, Desirable 200-239 mg/dL, Borderline high >239 mg/dL, High Performed By: #### 3 016-3, 52357-1, 2275-05 #### [facility] CLIA [id number] [address] [place] [address] [place] #### 54559-2 #### [facility] CLIA [id number] [address] [place] [address] [place] [facility] CLIA [id number] [address] [place] [address] [place] Cholesterol in HDL [Mass/Vol] 35 mg/dL Low >39 [facility] Comment on above: Order Comment: Speci men Type: BLOOD SPECIMEN Ordering Facility: [facility] Address: [address] [place] [address] Result Comment: 40-5 9 mg/dL, Acceptable >59 mg/dL, High: Negative risk factor for coronary heart disease <40 mg/dL, Low: Positive risk factor for coronary heart disease Performed By: #### 3 016-3, 88336-7, 2275-05 #### [facility] CLIA [id number] [address] [place] [address] [place] #### 96640-5 #### [facility] CLIA [id number] [address] [place] [address] [place] [facility] CLIA [id number] [address] [place] [address] [place] Cholesterol in LDL [Mass/Vol] 96 mg/dL Normal <100 [facility] Comment on above: Order Comment: Speci men Type: BLOOD SPECIMEN Ordering Facility: [facility] Address: [address] [place] [address] Result Comment: <100 mg/dL, Optimal 100-129 mg/dL, Near optimal/above optimal 130-159 mg/dL, Borderline high 160-189 mg/dL, High >189 mg/dL, Very high Secondary prevention optimal LDL Cholesterol levels are recommended to be < 70 mg/dL Performed By: #### 3 016-3, 65174-5, 2275-05 #### [facility] CLIA [id number] [address] [place] [address] OF [place] #### [id number] #### [facility] CLIA [id number] [address] [place] [address] [place] [facility] CLIA [id number] [place] [address] STATES OF [facility] Cholesterol in LDL/Cholesterol in HDL [Mass ratio] 2.74 {ratio} High <2.54 [facility] Comment on above: Order Comment: Dominic damián Type: BLOOD SPECIMEN Ordering Facility: [facility] Address: [address] [place] [address] Result Comment: Aura silva: 1. National Cholesterol Education Program ATP III Guideline At-A-Glance Quick Desk Reference: National Heart, Lung, and Blood [place]. National Institutes of Health. 2001: NIH Publication No. 01-3305. 2. An International Atherosclerosis Society position paper: global recommendations for the management of dyslipidemia: executive summary, Atherosclerosis. 2014: 232(2):410-413. Performed By: #### 3 016-3, 88623-4, 2275-05 #### [facility] CLIA [id number] [address] [place] [address] [place] #### 64014-1 #### [facility] CLIA [id number] [address] [place] [address] [place] [facility] CLIA [id number] [address] [place] [address] [place] Cholesterol in VLDL [Mass/Vol] 51 mg/dL High <30 [facility] Comment on above: Order Comment: Speci men Type: BLOOD SPECIMEN Ordering Facility: [facility] Address: [address] [place] [address] Performed By: #### 3 016-3, 46619-4, 2275-05 #### [facility] CLIA [id number] [address] [place] [address] [place] #### [id number] #### [facility] CLIA [id number] [address] [place] [address] [place] [facility] CLIA [id number] [address] [place] [address] [place] Cholesterol non HDL [Mass/Vol] 147 mg/dL High <130 [facility] Comment on above: Order Comment: Speci men Type: BLOOD SPECIMEN Ordering Facility: [facility] Address: [address] [place] [address] Result Comment: <130 mg/dL, Optimal 130-159 mg/dL, Near optimal/above optimal 160-189 mg/dL, Borderline high 190-219 mg/dL, High >219 mg/dL, Very high Secondary prevention optimal non HDL Cholesterol levels are recommended to be <100 mg/dL Performed By: #### 3 016-3, 22498-2, 2275-05 #### [facility] CLIA [id number] [address] [place] [address] [place] #### [id number] #### [facility] CLIA [id number] [address] [place] [address] [place] [facility] CLIA [id number] [address] [place] [address] [place] Cholesterol.total/ Cholesterol in HDL [Mass ratio] 5.20 {ratio} High <5.10 [facility] Comment on above: Order Comment: Speci men Type: BLOOD SPECIMEN Ordering Facility: [facility] Address: [address] [place] [id number] Performed By: #### 3 016-3, 22850-4, 2275-05 #### [facility] CLIA [id number] [address] [place] [address] [place] #### [id number] #### [facility] CLIA [id number] [address] [place] [address] [place] [facility] CLIA [id number] [address] [place] [address] [place] FASTING TIME 18 hrs Normal [facility] Comment on above: Order Comment: Speci men Type: BLOOD SPECIMEN Ordering Facility: [facility] Address: [address] [place] [address] [place] [address] Performed By: #### 3 016-3, 20398-4, 2275-05 #### [facility] CLIA [id number] [address] [place] [address] [place] #### 69299-5 #### [facility] CLIA [id number] [address] [place] [address] [place] [facility] CLIA [id number] [address] [place] [address] [place] Triglyceride [Mass/Vol] 254 mg/dL High <150 [facility] Comment on above: Order Comment: Speci men Type: BLOOD SPECIMEN Ordering Facility: [facility] Address: [address] [place] [id number] Result Comment: <150 mg/dL, Normal 150-199 mg/dL, Borderline high 200-499 mg/dL, High >499 mg/dL, Very high Performed By: #### 3 016-3, 75967-9, 2275-05 #### [facility] CLIA [id number] [address] [place] [address] [place] #### 34387-9 #### [facility] CLIA [id number] [address] [place] [address] [place] [facility] CLIA [id number] [address] [place] [address] [place] PTH-Intact SerPl-mCncon 08-3 0 Parathyrin.intact [Mass/Vol] 67 pg/mL High 15-65 [facility] Comment on above: Order Comment: Speci men Type: BLOOD SPECIMEN Ordering Facility: [facility] Address: [address] [place] [address] Performed By: #### 2 132-9, 2284-8, 2731-8 #### [facility] CLIA [id number] [address] [place] [address] [place] TSH SerPl-aCncon 10-14-2023 TSH Qn 1.530 m[IU]/L Normal 0.270-4.20 0 [facility] Comment on above: Order Comment: Speci men Type: BLOOD SPECIMEN Ordering Facility: [facility] Address: [address] [place] [address] Performed By: #### B 1WB #### [facility] CLIA [id number] [address] [place] [address] [place] US ABD RIGHT UPPER QUADRANTo n 10-14-2023 US ABD RIGHT UPPER QUADRANT * * *Final Report* * * DATE OF EXAM: Oct 14 2023 2:02PM U 1032 - US ABD RIGHT UPPER QUADRANT / PROCEDURE REASON: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 appointments and clearances. 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 Patient advised [facility] [employer] insurance will in September 2023 - an extension needs to be asked for - please refer to insurance information. Please reach out to the patient with an update. Allergies As of Date: 07/28/2023 Noted Allergy Reaction ATORVASTATIN 04/18/2023 14 - Other: See Comments Comments: Cramp, Generalized aches and pains ROSUVASTATIN 04/28/2023 14 - Other: See Comments Comments: Cramp, Generalized aches and pains CLARITHROMYCIN 05/27/2023 8 - GI Upset Comments: Made ill, nausea, headache PRAVACHOL (PRAVASTATIN SODIUM) 10/13/2009 TEMAZEPAM 01/05/2010 14 - Other: See Comments Comments: Joint and muscle pain and stiffness Date Reviewed: 07/28/2023 Reviewed by: Jayashree Hernandez MD - Fully Assessed Reason for Visit: Appointment [186] Patient Question [[id number]] Prescriptions as of 07/28/2023 - bismuth subsalicylate (BISMUTH) 262 mg chewable tablet Take 1 tablet by mouth four times daily for 14 days. - pantoprazole DR (PROTONIX) 40 mg tablet Take 1 tablet by mouth two times a day for 14 days. - lisinopril (ZESTRIL) 20 mg tablet Take 30 mg by mouth. - valACYclovir (VALTREX) 500 mg tablet Take 1 tablet by mouth once daily. - trospium (SANCTURA) 20 mg tablet 20 mg. - lysine HCL 1,000 mg tab TAKE BY MOUTH EVERY DAY - cyanocobalamin (VITAMIN B-12) 1,000 mcg tab Take 1,000 mcg by mouth once daily. - warfarin (COUMADIN) 3 mg tablet - acetaminophen(TYLENOL 325 MG TAB) Take two(2) tablets every four(4) to six(6) hours as needed for pain. Problem List As Of Date 07/28/2023 Noted Resolved Thoracic aneurysm without mention of rupture [I*06/10/2008 Mitral valve disorders [I05.9] 06/10/2008 Depressive disorder, not elsewhere classified [*06/10/2008 Mgrn wo aura wo intrc mgr [G43.009] 06/10/2008 Esophageal reflux [K21.9] 06/10/2008 Morbid obesity (HCC) [E66.01] 06/10/2008 Vitamin D deficiency [E55.9] 10/02/2008 Aortic regurgitation [I35.1] 10/05/2008 Heart valve replaced by other means [Z95.4] 11/19/2009 Thyroiditis, painless [E06.1] 01/05/2010 Obstructive sleep apnea [G47.33] 03/19/2010 PTSD (post-traumatic stress disorder) [F43.10] 04/29/2010 Dysthymia [F34.1] 04/29/2010 Microscopic hematuria [R31.29] 06/18/2010 Esophagitis, unspecified [K20.90] 10/20/2010 Acute gastritis without mention of hemorrhage [*10/20/2010 Hypertension [I10] 07/15/2011 ADD (attention deficit disorder) [F98.8] 07/15/2011 Preop examination [Z01.818] 05/13/2023 Gastroesophageal reflux disease [K21.9] 05/13/2023 H/O mechanical aortic valve replacement [Z95.2] 05/13/2023 Encounter Status:Closed by MUSA DEY on 07/28/23 [facility] CNPN Telephone (AGGENS4) GARDENIA MUJICA ([id number]) 1965 F CHT Date Time Provider Department 07/28/23 JAYASHREE HERNANDEZ During your visit today, we recorded the following information about you: Rg-Lakeisha Ivan 07/28/2023 8:59 AM Addendum Set up for [facility] psych, RD, [place] of ABD ([id number]) and other [facility] appts ISIS Hernandez / XENIA / Johanna [place] - Candelario Maynard - Jeffrey #2 / Mary / XENIA Johanna [place] - Donald Allergies As of Date: 07/28/2023 Noted Allergy Reaction ATORVASTATIN 04/18/2023 14 - Other: See Comments Comments: Cramp, Generalized aches and pains ROSUVASTATIN 04/28/2023 14 - Other: See Comments Comments: Cramp, Generalized aches and pains CLARITHROMYCIN 05/27/2023 8 - GI Upset Comments: Made ill, nausea, headache PRAVACHOL (PRAVASTATIN SODIUM) 10/13/2009 TEMAZEPAM 01/05/2010 14 - Other: See Comments Comments: Joint and muscle pain and stiffness Date Reviewed: 07/28/2023 Reviewed by: Jayashree Hernandez MD - Fully Assessed Reason for Visit: Appointment [186] Prescriptions as of 07/28/2023 - bismuth subsalicylate (BISMUTH) 262 mg chewable tablet Take 1 tablet by mouth four times daily for 14 days. - pantoprazole DR (PROTONIX) 40 mg tablet Take 1 tablet by mouth two times a day for 14 days. - lisinopril (ZESTRIL) 20 mg tablet Take 30 mg by mouth. - valACYclovir (VALTREX) 500 mg tablet Take 1 tablet by mouth once daily. - trospium (SANCTURA) 20 mg tablet 20 mg. - lysine HCL 1,000 mg tab TAKE BY MOUTH EVERY DAY - cyanocobalamin (VITAMIN B-12) 1,000 mcg tab Take 1,000 mcg by mouth once daily. - warfarin (COUMADIN) 3 mg tablet - acetaminophen(TYLENOL 325 MG TAB) Take two(2) tablets every four(4) to six(6) hours as needed for pain. Problem List As Of Date 07/28/2023 Noted Resolved Thoracic aneurysm without mention of rupture [I*06/10/2008 Mitral valve disorders [I05.9] 06/10/2008 Depressive disorder, not elsewhere classified [*06/10/2008 Mgrn wo aura wo intrc mgr [G43.009] 06/10/2008 Esophageal reflux [K21.9] 06/10/2008 Morbid obesity (HCC) [E66.01] 06/10/2008 Vitamin D deficiency [E55.9] 10/02/2008 Aortic regurgitation [I35.1] 10/05/2008 Heart valve replaced by other means [Z95.4] 11/19/2009 Thyroiditis, painless [E06.1] 01/05/2010 Obstructive sleep apnea [G47.33] 03/19/2010 PTSD (post-traumatic stress disorder) [F43.10] 04/29/2010 Dysthymia [F34.1] 04/29/2010 Microscopic hematuria [R31.29] 06/18/2010 Esophagitis, unspecified [K20.90] 10/20/2010 Acute gastritis without mention of hemorrhage [*10/20/2010 Hypertension [I10] 07/15/2011 ADD (attention deficit disorder) [F98.8] 07/15/2011 Preop examination [Z01.818] 05/13/2023 Gastroesophageal reflux disease [K21.9] 05/13/2023 H/O mechanical aortic valve replacement [Z95.2] 05/13/2023 Encounter Status:Closed by RG-LAKEISHA IVAN on 07/28/23 [facility] CNPNon 06-10-2023 CNPN Telephone (AGGENS4) GARDENIA MUJICA ([id number]) 1965 F T Date Time Provider Department 06/10/23 JAYASHREE HERNANDEZ AGGENS4 During your visit today, we recorded the following information about you: Sebastian Flores 06/10/2023 10:54 AM Signed Called patient to talk about her benefits. Since she [facility] because she is having complications ( GERD ) they would pay for the revision if its billed under GERD. There was not a number to call the [facility]. But patient did stated they would cover it. Allergies As of Date: 06/10/2023 Noted Allergy Reaction ATORVASTATIN 04/18/2023 14 - Other: See Comments Comments: Cramp, Generalized aches and pains ROSUVASTATIN 04/28/2023 14 - Other: See Comments Comments: Cramp, Generalized aches and pains CLARITHROMYCIN 05/27/2023 8 - GI Upset Comments: Made ill, nausea, headache PRAVACHOL (PRAVASTATIN SODIUM) 10/13/2009 TEMAZEPAM 01/05/2010 14 - Other: See Comments Comments: Joint and muscle pain and stiffness Date Reviewed: 05/27/2023 Reviewed by: Jayashree Hernandez MD - Fully Assessed Reason for Visit: Patient Update [1234] Cmt: [facility] information Prescriptions as of 06/10/2023 - bismuth subsalicylate (BISMUTH) 262 mg chewable tablet Take 1 tablet by mouth four times daily for 14 days. - pantoprazole DR (PROTONIX) 40 mg tablet Take 1 tablet by mouth two times a day for 14 days. - lisinopril (ZESTRIL) 20 mg tablet Take 20 mg by mouth. - valACYclovir (VALTREX) 500 mg tablet Take 1 tablet by mouth once daily. - trospium (SANCTURA) 20 mg tablet 20 mg. - lysine HCL 1,000 mg tab TAKE BY MOUTH EVERY DAY - cyanocobalamin (VITAMIN B-12) 1,000 mcg tab Take 1,000 mcg by mouth once daily. - warfarin (COUMADIN) 3 mg tablet - acetaminophen(TYLENOL 325 MG TAB) Take two(2) tablets every four(4) to six(6) hours as needed for pain. Problem List As Of Date 06/10/2023 Noted Resolved Thoracic aneurysm without mention of rupture [I*06/10/2008 Mitral valve disorders [I05.9] 06/10/2008 Depressive disorder, not elsewhere classified [*06/10/2008 Mgrn wo aura wo intrc mgr [G43.009] 06/10/2008 Esophageal reflux [K21.9] 06/10/2008 Morbid obesity (HCC) [E66.01] 06/10/2008 Vitamin D deficiency [E55.9] 10/02/2008 Aortic regurgitation [I35.1] 10/05/2008 Heart valve replaced by other means [Z95.4] 11/19/2009 Thyroiditis, painless [E06.1] 01/05/2010 Obstructive sleep apnea [G47.33] 03/19/2010 PTSD (post-traumatic stress disorder) [F43.10] 04/29/2010 Dysthymia [F34.1] 04/29/2010 Microscopic hematuria [R31.29] 06/18/2010 Esophagitis, unspecified [K20.90] 10/20/2010 Acute gastritis without mention of hemorrhage [*10/20/2010 Hypertension [I10] 07/15/2011 ADD (attention deficit disorder) [F98.8] 07/15/2011 Preop examination [Z01.818] 05/13/2023 Gastroesophageal reflux disease [K21.9] 05/13/2023 H/O mechanical aortic valve replacement [Z95.2] 05/13/2023 Encounter Status:Closed by SEBASTIAN FLORES on 06/10/23 [facility]AGGENS 4[facility] GARDENIA MUJICA ([id number]) 1965 F CHT Date Time Provider Department 05/27/23 9:30 AM JAYASHREE HERNANDEZ AGG4 During your visit today, we recorded the following information about you: Pulse Blood pressure Weight Height 70/minute 134/80 87.6 kg 1.626 m Jayashree Hernandez MD 05/27/2023 12:40 PM Signed SURGICAL SERVICES HISTORY AND PHYSICAL EXAMINATION SERVICE DATE: 05/27/2023 SERVICE TIME: 10:08 AM PRIMARY CARE PHYSICIAN: ISABELLE ALVES SUBJECTIVE CHIEF COMPLAINT: follow up after testing HISTORY OF PRESENT ILLNESS: Ms. Mujica is a 57 year old female with a PMH of obesity (BMI 32.89), NATO (getting fitted for CPAP), aortic regurgitation, PTSD (severe), and GERD who presents for follow up after testing. Today she reports having initial issues with triple therapy with drug reactions. We transitioned her to quadruple therapy on Tuesday and she started this medication at that time. She has noted no change in her symptoms since starting medications. 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 10 cm VBG with 11 cm pouch - Lopez: DeMeester 28.6; SAP 95.5 and 98 for heartburn and regurg - Pathology: Stomach, antrum, biopsy: Mild chronic gastritis. Immunohistochemical stain for Helicobacter pylori reveals rare staining structures suspicious for organisms. See comment. Gastroesophageal junction, biopsy: Gastric type glandular mucosa with chronic gastritis. Immunohistochemical stain for Helicobacter pylori reveals staining structures suspicious for organisms. - UGI (04/22/23): 3 cm hiatal hernia - EGD (11/05/22): diffuse gastritis like picture. Hourglass configuration of stomach possible lap band - Pathology: reactive gastropathy - Colonoscopy (02/25/23): normal colonoscopy - CT abd/pelvis (12/07/22): no acute abnormality - CT abd/pelvis (02/11/22): small hiatal hernia. Previous gastric bypass. No acute abdominoplevic process. Per my last clinic note: she reports a 10 year history of nausea, emesis, bloating, abdominal pain. These symptoms are present constantly. Eating makes the symptoms much worse and she states that the abdominal fullness is visible. She believes that oral tolerance has decreased - she is not able to eat anything after 3 pm and chicken noodle soup is about the only thing she can keep down. She endorses severe nearly constant GERD - she consumes bottles and bottles of Tums in addition to Protonix 40 mg at HS. She reports having had a [facility] at [facility] [place]. She does not recall the results, but she believes it was slow and she was diagnosed with gastroparesis Social: denies use of tobacco, etoh, or marijuana. 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 Hernandez ABDOMINOPLASTY LIPOSUCTION, TUMMY TUCK CHOLECYSTECTOMY 02/15/1992 [facility] EGD TRANSORAL BIOPSY SINGLE/MULTIPLE 10/20/2010 EGD WITH BIOPSY(S) 05/13/2023 [facility] with 10 cm pouch; Dr. Hernandez GSTR RSTCV W/O BYP OTH/THN [place]-BANDED GSTP 02/14/1993 [facility] HEART VALVE REPLACEMENT 05/15/2009 mechanical valve, Aortic root, [facility] [place] LIGATE FALLOPIAN TUBE 1991 [place] PAST SURGICAL HISTORY OF 2004 ORIF femur, [facility] TOTAL ABDOMINAL HYSTERECT W/WO RMVL TUBE OVARY 2005 Hysterectomy, LUZ -- ovaries intact, Dr. Luz Garcia in [place] FAMILY HISTORY: FAMILY HISTORY Problem Relation Age of Onset Coronary Artery Disease Mother CAD, no NC; first diagnosed mid-50's? Coronary Artery Disease Maternal Grandmother NC, CAD Coronary Artery Disease Maternal Grandfather NC, CAD None Father UNKNOWN --- Colon Cancer Other none Diabetes Other none Breast Cancer Other none other (ADD [Other]) Son SOCIAL HISTORY: Social History Tobacco Use Smoking status: Never Smokeless tobacco: Never Vaping Use Vaping Use: Never used Substance Use Topics Alcohol use: No Drug use: No MEDICATIONS: Current Outpatient Medications Medication Sig bismuth subsalicylate (BISMUTH) 262 mg chewable tablet Take 1 tablet by mouth four times daily for 14 days. metroNIDAZOLE (FLAGYL) 250 mg tablet Take 1 tablet by mouth four times daily for 14 days. tetracycline (SUMYCIN) 500 mg cap Take 1 capsule by mouth before (more content not included)... [facility] (AGGENS4) GARDENIA MUJICA ([id number]) 1965 F [facility] Date Time Provider Department 05/27/23 JAYASHREE HERNANDEZ AGGENS4 During your visit today, we recorded the following information about you: Lisa Combs MA 05/27/2023 10:35 AM Signed Checkout notes per Dr. Hernandez this can be virtual Follow-up disposition: Return in about 8 weeks (around 07/22/2023). Patient will call next week to schedule once she reviews her calendar. Lisa Combs MA Allergies As of Date: 05/27/2023 Noted Allergy Reaction ATORVASTATIN 04/18/2023 14 - Other: See Comments Comments: Cramp, Generalized aches and pains ROSUVASTATIN 04/28/2023 14 - Other: See Comments Comments: Cramp, Generalized aches and pains CLARITHROMYCIN 05/27/2023 8 - GI Upset Comments: Made ill, nausea, headache PRAVACHOL (PRAVASTATIN SODIUM) 10/13/2009 TEMAZEPAM 01/05/2010 14 - Other: See Comments Comments: Joint and muscle pain and stiffness Date Reviewed: 05/27/2023 Reviewed by: Jayashree Hernandez MD - Fully Assessed Reason for Visit: Appointment [186] Prescriptions as of 05/27/2023 - bismuth subsalicylate (BISMUTH) 262 mg chewable tablet Take 1 tablet by mouth four times daily for 14 days. - metroNIDAZOLE (FLAGYL) 250 mg tablet Take 1 tablet by mouth four times daily for 14 days. - tetracycline (SUMYCIN) 500 mg cap Take 1 capsule by mouth before meals and at bedtime for 14 days. - pantoprazole DR (PROTONIX) 40 mg tablet Take 1 tablet by mouth two times a day for 14 days. - Amoxicillin 500 mg tablet Take 2 tablets by mouth two times a day for 14 days. - clarithromycin (BIAXIN) 500 mg Take 1 tablet by mouth two times a day for 14 days. - lisinopril (ZESTRIL) 20 mg tablet Take 20 mg by mouth. - valACYclovir (VALTREX) 500 mg tablet Take 1 tablet by mouth once daily. - trospium (SANCTURA) 20 mg tablet 20 mg. - lysine HCL 1,000 mg tab TAKE BY MOUTH EVERY DAY - cyanocobalamin (VITAMIN B-12) 1,000 mcg tab Take 1,000 mcg by mouth once daily. - warfarin (COUMADIN) 3 mg tablet - acetaminophen(TYLENOL 325 MG TAB) Take two(2) tablets every four(4) to six(6) hours as needed for pain. Problem List As Of Date 05/27/2023 Noted Resolved Thoracic aneurysm without mention of rupture [I*06/10/2008 Mitral valve disorders [I05.9] 06/10/2008 Depressive disorder, not elsewhere classified [*06/10/2008 Mgrn wo aura wo intrc mgr [G43.009] 06/10/2008 Esophageal reflux [K21.9] 06/10/2008 Morbid obesity (HCC) [E66.01] 06/10/2008 Vitamin D deficiency [E55.9] 10/02/2008 Aortic regurgitation [I35.1] 10/05/2008 Heart valve replaced by other means [Z95.4] 11/19/2009 Thyroiditis, painless [E06.1] 01/05/2010 Obstructive sleep apnea [G47.33] 03/19/2010 PTSD (post-traumatic stress disorder) [F43.10] 04/29/2010 Dysthymia [F34.1] 04/29/2010 Microscopic hematuria [R31.29] 06/18/2010 Esophagitis, unspecified [K20.90] 10/20/2010 Acute gastritis without mention of hemorrhage [*10/20/2010 Hypertension [I10] 07/15/2011 ADD (attention deficit disorder) [F98.8] 07/15/2011 Preop examination [Z01.818] 05/13/2023 Gastroesophageal reflux disease [K21.9] 05/13/2023 H/O mechanical aortic valve replacement [Z95.2] 05/13/2023 Encounter Status:Closed by LISA COMBS on 05/27/23 [facility] ANES POSTPROC EVALon 024 ANES POSTPROC EVAL HNO ID: [id number] Author: TYSON ELLISON MD, PhD Service: Anesthesiology Author Type: Anesthesiologist Type: Anesthesia Postprocedure Evaluation Filed: 05/13/2023 12:41 Note Text: POST ANESTHESIA EVALUATION NOTE : 1965 Procedure Summary Date: 05/13/23 Room / Location: [facility] Anesthesia Start: 808 Anesthesia Stop: 831 Procedure: EGD - THERAPEUTIC, EUS, OR TUBE INTERVENTIONS Diagnosis: Gastroesophageal reflux disease, unspecified whether esophagitis present (Functional Dyspepsia) Scheduled Providers: Jayashree Hernandez MD Responsible Provider: Tyson Ellison MD, PhD Anesthesia Type: MAC ASA Status: 2 Anesthesia Type: MAC Last Vitals Vitals Value Taken Time BP 127/79 05/13/23 0847 Temp 36.6 ?C (97.9 ?F) 05/13/23 0833 Pulse 71 05/13/23 0847 Resp 16 05/13/23 0847 SpO2 96 % 05/13/23 0847 Post Anesthesia Patient Status Other Remarks: From review of flowsheets, pt had an uneventful recovery course in PACU.. Anesthesia Observations No Documentation SIGNATURE: Tyson Ellison MD, PhD PATIENT NAME: Gardenia Mujica DATE: May 13, 2023 TIME: 12:40 PM CSN: [id number] Normal [facility] ANES PRE-OPon 05-13-2023 ANES PRE-OP HNO ID: [id number] Author: TYSON ELLISON MD, PhD Service: Anesthesiology Author Type: Anesthesiologist Type: Anesthesia Preprocedure Evaluation Filed: 05/13/2023 08:02 Note Text: ANESTHESIOLOGY DAY OF SURGERY NOTE : 1965 Procedure Information Date/Time: 05/13/23 0800 Scheduled providers: Jayashree Hernandez MD Procedure: EGD - THERAPEUTIC, EUS, OR TUBE INTERVENTIONS Location: [facility] Estimated body mass index is 31.76 kg/m? as calculated from the following: Height as of this encounter: 162.6 cm (5' 4 ). Weight as of this encounter: 83.9 kg (185 lb). Most recent hematocrit and potassium results: Hematocrit 30.7 09/08/2021 Potassium 4.1 09/08/2021 Relevant Problems ANESTHESIA (+) Obstructive sleep apnea CARDIO (+) Aortic regurgitation (+) Hypertension (+) Migraine without aura, without mention of intractable migraine without mention of status migrainosus (+) Thoracic aneurysm without mention of rupture GI (+) Esophageal reflux (+) Gastroesophageal reflux disease NEURO-PSYCH (+) Migraine without aura, without mention of intractable migraine without mention of status migrainosus PULMONARY (+) Obstructive sleep apnea I - PHYSICAL EVALUATION AIRWAY Patient intubated: No. Tracheostomy tube not present Mallampati: II. TM distance: >3 FB. Neck ROM: full ROM without neurological symptoms. Mouth opening: adequate. Short neck: no. Thick neck: no Microretrognathia/Micronagthia/ Recessed Chin: No DENTAL Dental findings: teeth intact. II - ANESTHESIA PLAN ASA Score: 2 Anesthetic Plan: MAC NPO Status: adequate Beta Taisha Monitoring Plan Monitoring plan: standard ASA. Post Procedure Analgesic Plan Postoperative analgesic plan: multimodal analgesia. Informed Consent Anesthetic risks, benefits, alternatives, personnel and consent discussed: yes. Patient / Responsible Democrat agrees to proceed: yes Patient / Surrogate agrees to blood products: Yes Potential Anesthesia issues that may suggest increased risk of complications or contraindication to planned procedure: none. Vitals Value Taken Time BP 143/83 05/13/23732 Pulse 70 05/13/23732 Resp 15 05/13/23732 Temp 36.5 ?C (97.7 ?F) 05/13/23732 SpO2 97 % 05/13/23732 Outpatient Medications as of 05/13/2023 Medication Sig - lisinopril (ZESTRIL) 20 mg tablet Take 20 mg by mouth. - valACYclovir (VALTREX) 500 mg tablet Take 1 tablet by mouth once daily. - trospium (SANCTURA) 20 mg tablet 20 mg. - lysine HCL 1,000 mg tab TAKE BY MOUTH EVERY DAY - warfarin (COUMADIN) 3 mg tablet - acetaminophen(TYLENOL 325 MG TAB) Take two(2) tablets every four(4) to six(6) hours as needed for pain. - cyanocobalamin (VITAMIN B-12) 1,000 mcg tab Take 1,000 mcg by mouth once daily. - pantoprazole 40 mg tablet Take 1 tablet by mouth daily before breakfast. Take on empty stomach, 1/2 hr before meal. Facility-Administered Medications as of 05/13/2023 Medication Dose Route Frequency - lidocaine 10 mg/mL (1 %) 1-2 mg injection (XYLOCAINE) 0.1-0.2 mL INTRADERMAL PRN - lactated ringers iv infusion 30 mL/hr INTRAVENOUS CONTINUOUS I have interviewed and examined the patient. I have reviewed the medical record and/or the pre-anesthesia evaluation, pertinent labs, and test results. This contains updated information obtained within 48 hours of Surgery/Procedure. SIGNATURE: Tyson Ellison MD, PhD PATIENT NAME: Gardenia Mujica DATE: May 13, 2023 TIME: 8:02 AM CSN: [id number] Normal [facility] HISTORY PHYSICALon HISTORY PHYSICAL HNO ID: [id number] Author: GEORGINA HOLLAND APRN.CNP Service: Anesthesiology Author Type: Nurse Practitioner Type: H&P Filed: 05/13/2023 08:02 Note Text: HISTORY AND PHYSICAL EXAMINATION SERVICE DATE: 05/13/2023 SERVICE TIME: 7:09 AM PRIMARY CARE PHYSICIAN: ISABELLE ALVES REASON FOR VISIT: aGrdenia Mujica is a 57 year old female who is scheduled for EGD at the request of Dr. Jayashree Hernandez for routine HANDP. To perform a comprehensive review of the patients past medical history, assess their current health status and obtain any additional testing required based on anesthesia guidelines. To assess and identify potential anesthesia problems, particularly those that may suggest potential complications or contraindications to the planned procedure. The patient has the following: ACTIVE PROBLEM LIST Thoracic Aneurysm Without Mention of Rupture Mitral Valve Disorders(424.0) Depressive Disorder, Not Elsewhere Classified Migraine Without Aura, Without Mention of Intractable Migraine Without Mention of Status Migrainosus Esophageal Reflux Morbid Obesity (Hcc) Vitamin D Deficiency Aortic Regurgitation Heart Valve Replaced By Other Means Thyroiditis, Painless Obstructive Sleep Apnea Ptsd (Post-Traumatic Stress Disorder) Dysthymia Microscopic Hematuria Esophagitis, Unspecified Acute Gastritis Without Mention of Hemorrhage Hypertension Add (Attention Deficit Disorder) Preop Examination Gastroesophageal Reflux Disease H/O Mechanical Aortic Valve Replacement Subjective CHIEF COMPLAINT: Preprocedure evaluation, Gastroesophageal reflux disease, unspecified whether esophagitis present [K21.9] HPI: Patient is a 57 year old female who presents to [facility] for the above procedure. She reports a history of gastroesophageal reflux disease, unspecified whether esophagitis present. She reports GERD symptoms are almost constant and only mildly improved with pantoprazole. She also reports a longstanding history of abdominal pain, nausea, vomiting and bloating increased after eating. Denies above symptoms this AM. Previous EGD October 2022 showed diffuse gastritis and colonoscopy February 2023 was normal. She has a known small hiatal hernia. Hx of bariatric surgery. Denies difficulty with prior sedations or anesthesia. Patient agrees to planned procedure. PAST MEDICAL HISTORY Diagnosis Date Acute gastritis without mention of hemorrhage Aortic regurgitation 10/05/2008 Esophageal reflux 06/10/2008 Esophagitis, unspecified Hiatal hernia 04/22/2023 3 cm on UGI MITRAL VALVE DISORDER 06/10/2008 Obstructive sleep apnea 03/19/2010 PTSD (post-traumatic stress disorder) 04/29/2010 PAST SURGICAL HISTORY Procedure Laterality Date ABDOMINOPLASTY LIPOSUCTION, TUMMY TUCK CHOLECYSTECTOMY 02/15/1992 [facility] EGD TRANSORAL BIOPSY SINGLE/MULTIPLE 10/20/2010 GSTR RSTCV W/O BYP OTH/THN [place]-BANDED GSTP 02/14/1993 [facility] HE[facility] VALVE REPLACEMENT 05/15/2009 mechanical valve, Aortic root, [facility] in [place] Dr. Curiel LIGATE FALLOPIAN TUBE 1991 [place] PAST SURGICAL HISTORY OF 2004 ORIF femur, [facility] [place] TOTAL ABDOMINAL HYSTERECT W/WO RMVL TUBE OVARY 2004 Hysterectomy, LUZ -- ovaries intact, Dr. Luz Garcia in [place] FAMILY HISTORY Problem Relation Age of Onset Coronary Artery Disease Mother CAD,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 [Mass/Vol] 23.0 ng/mL Normal 8.0 - 252.0 ng/mL AO ADM SS Hematocrit (Bld) [Volume fraction] 34.9 % Low 37.0 - 47.0 % AO Workflow SS Hemoglobin (Bld) [Mass/Vol] 12.2 G/dL Normal 12.0 - 16.0 G/dL AO Workflow SS Iron [Mass/Vol] 85 ug/dL Normal 50 - 170 mcg/dL AO ADM SS .Auto Diffon 12-07-2022 Basophil, Absolute 0.0 10 3/mcL Normal 0.0-0.2 [facility] ([place]) Comment on above: Performed By: #### A WARREN, PRO, CBC, ADIFF #### [address] [address] Basophils/100 WBC (Bld) 0.4 % Normal 0.0-2.5 [facility] ([place]) Comment on above: Performed By: #### A WARREN, PRO, CBC, ADIFF #### [address] [address] Eosinophil, Absolute 0.4 10 3/mcL Normal 0.0-0.4 [facility] ([place]) Comment on above: Performed By: #### A WARREN, PRO, CBC, ADIFF #### [address] [address] Eosinophils/100 WBC (Bld) 6.5 % Normal 0.0-7.0 [facility] ([place]) Comment on above: Performed By: #### A WARREN, PRO, CBC, ADIFF #### [address] [address] Lymphocyte, Absolute 1.2 10 3/mcL Normal 0.8-3.9 [facility] ([place]) Comment on above: Performed By: #### A WARREN, PRO, CBC, ADIFF #### [address] [address] Lymphocytes/100 WBC (Bld) 17.9 % Normal 10.0-50.0 [facility] ([place]) Comment on above: Performed By: #### A WARREN, PRO, CBC, ADIFF #### [address] [address] Monocyte, Absolute 0.6 10 3/mcL Normal 0.2-1.0 [facility] ([place]) Comment on above: Performed By: #### A WARREN, PRO, CBC, ADIFF #### [address] [address] Monocytes/100 WBC (Bld) 8.7 % Normal 1.7-13.0 [facility] ([place]) Comment on above: Performed By: #### A WARREN, PRO, CBC, ADIFF #### [address] [address] Neutrophils/100 WBC (Bld) 66.5 % Normal 37.0-80.0 [facility] ([place]) Comment on above: Performed By: #### A WARREN, PRO, CBC, ADIFF #### [address] [address] .GFRon 12-07-2022 GFR 71 ml/min/1.73sqm Normal [facility] ([place]) Comment on above: Result Comment: GFR Population mean for , Non- Americans Ages 20-29 = 116 mL/min/1.73 sq.m. Ages 30-39 = 107 mL/min/1.73 sq.m. Ages 40-49 = 99 mL/min/1.73 sq.m. Ages 50-59 = 93 mL/min/1.73 sq.m. Ages 60-69 = 85 mL/min/1.73 sq.m. Ages 70+ = 75 mL/min/1.73 sq.m. Chronic Kidney Disease: Less than 60 mL/min/1.73 square meters End Stage Renal Disease: Less than 15 mL/min/1.73 square meters Performed By: #### A WARREN, PRO, CBC, ADIFF #### [address] [address] GFR Non- 58 ml/min/1.73sqm Normal [facility] ([place]) Comment on above: Result Comment: GFR Population mean for , Non- Americans Ages 20-29 = 116 mL/min/1.73 sq.m. Ages 30-39 = 107 mL/min/1.73 sq.m. Ages 40-49 = 99 mL/min/1.73 sq.m. Ages 50-59 = 93 mL/min/1.73 sq.m. Ages 60-69 = 85 mL/min/1.73 sq.m. Ages 70+ = 75 mL/min/1.73 sq.m. Chronic Kidney Disease: Less than 60 mL/min/1.73 square meters End Stage Renal Disease: Less than 15 mL/min/1.73 square meters Performed By: #### A WARREN, PRO, CBC, ADIFF #### [place] [id number] .MDWon 12-07-2022 Monocyte Distribution Width 19.40 Normal 0.00-20.00 [facility] ([place]) Comment on above: Result Comment: For ED adult patients suspected of sepsis, MDW<=20.0 does not rule out sepsis or risk of sepsis Performed By: #### A WARREN, PRO, CBC, ADIFF #### [place] [id number] .NEUABSon 12-07-2022 Neutrophil, Absolute 4.5 10 3/mcL Normal 2.9-6.2 [facility] ([place]) Comment on above: Performed By: #### A WARREN, PRO, CBC, ADIFF #### [address] [address] .Urinalysis Microscopic (AO) on 12-07-2022 UA Bacteria 1+ /hpf Abnormal [facility] ([place]) Comment on above: Performed By: #### A WARREN, PRO, CBC, ADIFF #### [address] [address] UA Mucous 2+ /hpf Normal [facility] ([place]) Comment on above: Performed By: #### A WARREN, PRO, CBC, ADIFF #### [address] [address] UA RBC 5-10 Abnormal None Seen [facility] ([place]) Comment on above: Performed By: #### A WARREN, PRO, CBC, ADIFF #### [address] [address] UA Squam Epithelial 0-5 Abnormal None Seen [facility] ([place]) Comment on above: Performed By: #### A WARREN, PRO, CBC, ADIFF #### [address] [address] UA WBC 0-5 Abnormal None Seen [facility] ([place] Comment on above: Performed By: #### A WARREN, PRO, CBC, ADIFF #### [address] [address] CBCon 12-07-2022 Erythrocyte distribution width (RBC) [Ratio] 17.3 % High 11.5-14.5 [facility] ([place]) Comment on above: Performed By: #### A WARREN, PRO, CBC, ADIFF #### [place] [address] Hematocrit (Bld) [Volume fraction] 35.5 % Low 37.0-47.0 [facility] ([place] Comment on above: Performed By: #### A WARREN, PRO, CBC, ADIFF #### [place] [phone] Hgb 12.1 G/dL Normal 12.0-16.0 [facility] ([place]) Comment on above: Performed By: #### A WARREN, PRO, CBC, ADIFF #### [address] [address] MCH (RBC) [Entitic mass] 28.2 pg Normal 27.0-31.2 [facility] ([place]) Comment on above: Performed By: #### A WARREN, PRO, CBC, ADIFF #### [place] [phone] MCHC 34.1 G/dL Normal 33.0-37.0 [facility] ([place]) Comment on above: Performed By: #### A WARREN, PRO, CBC, ADIFF #### [place] [phone] MCV (RBC) [Entitic vol] 82.5 fL Normal 80.0-94.0 [facility] ([place]) Comment on above: Performed By: #### A WARREN, PRO, CBC, ADIFF #### [address] [address] Platelet 259 10 3/mcL Normal 130-400 [facility] ([place]) Comment on above: Performed By: #### A WARREN, PRO, CBC, ADIFF #### [address] [address] Platelet mean volume (Bld) [Entitic vol] 7.3 fL Low 7.4-10.4 [facility] ([place]) Comment on above: Performed By: #### A WARREN, PRO, CBC, ADIFF #### [address] [address] RBC 4.31 10 6/mcL Normal 4.20-5.40 [facility] ([place]) Comment on above: Performed By: #### A WARREN, PRO, CBC, ADIFF #### [address] [address] WBC 6.8 10 3/mcL Normal 4.6-10.8 [facility] ([place]) Comment on above: Performed By: #### A WARREN, PRO, CBC, ADIFF #### [address] [address] CMPon 12-07-2022 Albumin Level 3.6 G/dL Normal 3.5-5.0 [facility] ([place]) Comment on above: Performed By: #### A WARREN, PRO, CBC, ADIFF #### [address] [address] Albumin/Globulin [Mass ratio] 1.1 {ratio} Normal 1.1-2.5 [facility] ([place]) Comment on above: Performed By: #### A WARREN, PRO, CBC, ADIFF #### [address] [address] ALP [Catalytic activity/Vol] 157 U/L High 40-135 [facility] ([place]) Comment on above: Performed By: #### A WARREN, PRO, CBC, ADIFF #### [address] [address] ALT [Catalytic activity/Vol] 67 U/L High 14-59 [facility] ([place]) Comment on above: Performed By: #### A WARREN, PRO, CBC, ADIFF #### [address] [address] AST [Catalytic activity/Vol] 52 U/L High 10-40 [facility] ([place]) Comment on above: Performed By: #### A WARREN, PRO, CBC, ADIFF #### [address] [address] Bili Total 0.4 mg/dL Normal 0.2-1.0 [facility] ([place]) Comment on above: Result Comment: Use of this assay is not recommended for patients undergoing treatment with eltrombopag due to the potential for falsely elevated results. Performed By: #### A WARREN, PRO, CBC, ADIFF #### [address] [address] BUN/Creatinine Ratio 13 ratio Normal 7-27 [facility] ([place]) Comment on above: Performed By: #### A WARREN, PRO, CBC, ADIFF #### [address] [address] Calcium [Mass/Vol] 9.3 mg/dL Normal 8.4-10.2 [facility] ([place]) Comment on above: Performed By: #### A WARREN, PRO, CBC, ADIFF #### [address] [address] Chloride [Moles/Vol] 101 mmol/L Normal 98-107 [facility] ([place]) Comment on above: Performed By: #### A WARREN, PRO, CBC, ADIFF #### [address] [address] CO2 [Moles/Vol] 34 mmol/L High 22-29 [facility] ([place]) Comment on above: Performed By: #### A WARREN, PRO, CBC, ADIFF #### [address] [place] [address] Creatinine [Mass/Vol] 0.98 mg/dL Normal 0.55-1.02 [facility] ([place]) Comment on above: Performed By: #### A WARREN, PRO, CBC, ADIFF #### [address] [address] Electrolyte Balance 4.0 mEq/L Normal 4.0-15.0 [facility] ([place]) Comment on above: Performed By: #### A WARREN, PRO, CBC, ADIFF #### [address] [address] Globulin 3.3 G/dL Normal [facility] ([place]) Comment on above: Performed By: #### A WARREN, PRO, CBC, ADIFF #### [address] [address] Glucose [Mass/Vol] 110 mg/dL High 70-105 [facility] ([place]) Comment on above: Performed By: #### A WARREN, PRO, CBC, ADIFF #### [address] [address] Potassium [Moles/Vol] 3.6 mmol/L Normal 3.5-5.1 [facility] ([place]) Comment on above: Performed By: #### A WARREN, PRO, CBC, ADIFF #### [address] [address] Sodium [Moles/Vol] 139 mmol/L Normal 136-145 [facility] ([place] Comment on above: Performed By: #### A WARREN, PRO, CBC, ADIFF #### [address] [address] Total Protein 6.9 G/dL Normal 6.4-8.2 [facility] ([place]) Comment on above: Performed By: #### A WARREN, PRO, CBC, ADIFF #### [address] [address] Urea nitrogen [Mass/Vol] 13 mg/dL Normal 7-18 [facility] ([place]) Comment on above: Performed By: #### A WARREN, PRO, CBC, ADIFF #### [place] [address] [place], [place] [address] CT ABD/PELVIS W/ IV CONTRAST ONLYon 12-07-2022 CT ABD/PELVIS W/ IV CONTRAST ONLY ORIGINAL EXAMINATION: CT OF THE ABDOMEN AND PELVIS WITH CONTRAST 12/07/2022 10:35 am TECHNIQUE: CT of the abdomen and pelvis was performed with the administration of intravenous contrast. Multiplanar reformatted images are provided for review. Automated exposure control, iterative reconstruction, and/or weight based adjustment of the mA/kV was utilized to reduce the radiation dose to as low as reasonably achievable. COMPARISON: June 02, 2022 HISTORY: ORDERING SYSTEM PROVIDED HISTORY: Reason for Exam: lower back pain for about 1 week. also hx of hematuria lower back pain, reports concern for hematuria and possible bladder mass FINDINGS: Moderate degenerative changes are present at the lower lumbar spine. Metallic artifact emanates from postoperative change at the proximal left femur. The lung bases are unremarkable. Small sliding hiatal hernia noted. Cholecystectomy clips are present. No focal liver lesions seen. The spleen, adrenal glands and pancreas are unremarkable. No kidney abnormality seen. Gastric postoperative changes are present. No adenopathy, free air, or free fluid identified. The urinary bladder is grossly normal. No GI tract abnormality is visible. No additional contributory abnormality seen. IMPRESSION: No acute abnormality identified. No definite cause for hematuria is evident on this exam. Interpreted by: Zackery Yeung MD Preliminary Report By: Zackery Yeung MD Electronically signed By Zackery Yeung MD Dictated Date: 12/07/2022 10:44:34 AM Prelim Date: 12/07/2022 10:52:41 AM Sign Date: 12/07/2022 10:52:41 AM Ordering Provider: SHARON BLAKELY [facility] ([place]) LABORATORYOrdered By: Mckenna Kerr on 12-07-2022 INR Coag (PPP) [Relative time] 3.0 {INR} Invalid Interpretation Code AO [facility] SS Comment on above: Interpretive Data: Deny zamarripa [employer] (CHEST, 1992, 102:312S-25S) recommended therapeutic range for oral anticoagulant therapy is: LOW RISK: Prophylaxis of venous thrombosis INR: 2.0-3.0 Treatment of pulmonary embolism 2.0-3.0 Prevention of systemic embolism 2.0-3.0 HIGH RISK: Mechanical prosthetic valves 2.5-3.5 PT Coag (PPP) [Time] 34.7 s Invalid Interpretation Code 9.0 - 14.2 seconds AO [facility] SS LABORATORYOrdered By: SYSTEM SYSTEM on 12-07-2022 Albumin BCP dye [Mass/Vol] 3.6 G/dL Invalid Interpretation Code 3.5 - 5.0 G/dL AO ADM SS Albumin/Globulin [Mass ratio] 1.1 {ratio} Invalid Interpretation Code 1.1 - 2.5 ratio AO ADM SS ALP [Catalytic activity/Vol] 157 U/L Invalid Interpretation Code 40 - 135 U/L AO ADM SS ALT With P-5'-P [Catalytic activity/Vol] 67 U/L Invalid Interpretation Code 14 - 59 U/L AO ADM SS AST With P-5'-P [Catalytic activity/Vol] 52 U/L Invalid Interpretation Code 10 - 40 U/L AO ADM SS Basophil, Absolute 0.0 103/mcL Invalid Interpretation Code 0.0 - 0.2 10^3/mcL AO Workflow SS Basophils/100 WBC (Bld) 0.4 % Invalid Interpretation Code 0.0 - 2.5 % AO Workflow SS Bilirubin [Mass/Vol] 0.4 mg/dL Invalid Interpretation Code 0.2 - 1.0 mg/dL AO ADM SS Comment on above: Interpretive Data: U se of this assay is not recommended for patients undergoing treatment with eltrombopag due to the potential for falsely elevated results. Calcium [Mass/Vol] 9.3 mg/dL Invalid Interpretation Code 8.4 - 10.2 mg/dL AO ADM SS Chloride [Moles/Vol] 101 mmol/L Invalid Interpretation Code 98 - 107 mmol/L AO ADM SS CO2 [Moles/Vol] 34 mmol/L Invalid Interpretation Code 22 - 29 mmol/L AO ADM SS Creatinine [Mass/Vol] 0.98 mg/dL Invalid Interpretation Code 0.55 - 1.02 mg/dL AO ADM SS Electrolyte Balance 4.0 mEq/L Invalid Interpretation Code 4.0 - 15.0 mEq/L AO ADM SS Eosinophil, Absolute 0.4 103/mcL Invalid Interpretation Code 0.0 - 0.4 10^3/mcL AO Workflow SS Eosinophils/100 WBC (Bld) 6.5 % Invalid Interpretation Code 0.0 - 7.0 % AO Workflow SS Erythrocyte distribution width (RBC) [Ratio] 17.3 % Invalid Interpretation Code 11.5 - 14.5 % AO Workflow SS GFR/1.73 sq M.predicted among blacks MDRD (S/P/Bld) [Vol rate/Area] 71 ml/min/1.73sqm Invalid Interpretation Code AO Chemistry S Comment on above: Interpretive Data: GFR Population mean for , Non- Americans Ages 20-29 = 116 mL/min/1.73 sq.m. Ages 30-39 = 107 mL/min/1.73 sq.m. Ages 40-49 = 99 mL/min/1.73 sq.m. Ages 50-59 = 93 mL/min/1.73 sq.m. Ages 60-69 = 85 mL/min/1.73 sq.m. Ages 70+ = 75 mL/min/1.73 sq.m. Chronic Kidney Disease: Less than 60 mL/min/1.73 square meters End Stage Renal Disease: Less than 15 mL/min/1.73 square meters GFR/1.73 sq M.predicted among non-blacks MDRD (S/P/Bld) [Vol rate/Area] 58 ml/min/1.73sqm Invalid Interpretation Code AO Chemistry S Comment on above: Interpretive Data: GFR Population mean for , Non- Americans Ages 20-29 = 116 mL/min/1.73 sq.m. Ages 30-39 = 107 mL/min/1.73 sq.m. Ages 40-49 = 99 mL/min/1.73 sq.m. Ages 50-59 = 93 mL/min/1.73 sq.m. Ages 60-69 = 85 mL/min/1.73 sq.m. Ages 70+ = 75 mL/min/1.73 sq.m. Chronic Kidney Disease: Less than 60 mL/min/1.73 square meters End Stage Renal Disease: Less than 15 mL/min/1.73 square meters Globulin 3.3 G/dL Invalid Interpretation Code AO ADM SS Glucose [Mass/Vol] 110 mg/dL Invalid Interpretation Code 70 - 105 mg/dL AO ADM SS Hematocrit (Bld) [Volume fraction] 35.5 % Invalid Interpretation Code 37.0 - 47.0 % AO Workflow SS Hemoglobin (Bld) [Mass/Vol] 12.1 G/dL Invalid Interpretation Code 12.0 - 16.0 G/dL AO Workflow SS Lipase [Catalytic activity/Vol] 28 U/L Invalid Interpretation Code 16 - 77 U/L AO ADM SS Lymphocyte, Absolute 1.2 103/mcL Invalid Interpretation Code 0.8 - 3.9 10^3/mcL AO Workflow SS Lymphocytes/100 WBC (Bld) 17.9 % Invalid Interpretation Code 10.0 - 50.0 % AO Workflow SS MCH (RBC) [Entitic mass] 28.2 pg Invalid Interpretation Code 27.0 - 31.2 pg AO Workflow SS MCHC 34.1 G/dL Invalid Interpretation Code 33.0 - 37.0 G/dL AO Workflow SS MCV (RBC) [Entitic vol] 82.5 fL Invalid Interpretation Code 80.0 - 94.0 fL AO Workflow SS Monocyte distribution width Auto (Bld) [Entitic vol] 19.40 1 Invalid Interpretation Code 0.00 - 20.00 AO Workflow SS Comment on above: Result Comment: For ED adult patients suspected of sepsis, MDW<=20.0 does not rule out sepsis or risk of sepsis Monocyte, Absolute 0.6 103/mcL Invalid Interpretation Code 0.2 - 1.0 10^3/mcL AO Workflow SS Monocytes/100 WBC (Bld) 8.7 % Invalid Interpretation Code 1.7 - 13.0 % AO Workflow SS Neutrophil, Absolute 4.5 103/mcL Invalid Interpretation Code 2.9 - 6.2 10^3/mcL AO Workflow SS Neutrophils/100 WBC (Bld) 66.5 % Invalid Interpretation Code 37.0 - 80.0 % AO Workflow SS Platelet mean volume (Bld) [Entitic vol] 7.3 fL Invalid Interpretation Code 7.4 - 10.4 fL AO Workflow SS Platelets (Bld) [#/Vol] 259 103/mcL Invalid Interpretation Code 130 - 400 10^3/mcL AO Workflow SS Potassium [Moles/Vol] 3.6 mmol/L Invalid Interpretation Code 3.5 - 5.1 mmol/L AO ADM SS Protein [Mass/Vol] 6.9 G/dL Invalid Interpretation Code 6.4 - 8.2 G/dL AO ADM SS RBC (Bld) [#/Vol] 4.31 106/mcL Invalid Interpretation Code 4.20 - 5.40 10^6/mcL AO Workflow SS Sodium [Moles/Vol] 139 mmol/L Invalid Interpretation Code 136 - 145 mmol/L AO ADM SS Urea nitrogen [Mass/Vol] 13 mg/dL Invalid Interpretation Code 7 - 18 mg/dL AO ADM SS Urea nitrogen/Creatinin e [Mass ratio] 13 ratio Invalid Interpretation Code 7 - 27 ratio AO ADM SS WBC (Bld) [#/Vol] 6.8 103/mcL Invalid Interpretation Code 4.6 - 10.8 10^3/mcL AO Workflow SS LABORATORYOrdered By: Nadia Rider on 12-07-2022 Appearance (U) Clear (12/07/22 9:22 AM) Invalid Interpretation Code Clear AO Auto Urine SS Bacteria LM.HPF (Urine sed) [#/Area] 1 /[HPF] Invalid Interpretation Code AO Auto Urine SS Bilirubin Ql (U) Negative (12/07/22 9:22 AM) Invalid Interpretation Code Negative AO Auto Urine SS Color (U) Yellow (12/07/22 9:22 AM) Invalid Interpretation Code AO Auto Urine SS Glucose Test strip (U) [Mass/Vol] Negative Invalid Interpretation Code Negative AO Auto Urine SS Hemoglobin Auto test strip (U) [Mass/Vol] Moderate *ABN* (12/07/22 9:22 AM) Invalid Interpretation Code Negative AO Auto Urine SS Ketones Ql (U) Negative Invalid Interpretation Code Negative AO Auto Urine SS UA Leuk Est Negative (12/07/22 9:22 AM) Invalid Interpretation Code Negative AO Auto Urine SS UA Mucous 2+ /HPF Invalid Interpretation Code AO Auto Urine SS UA Nitrite Negative (12/07/22 9:22 AM) Invalid Interpretation Code Negative AO Auto Urine SS UA pH 6.0 (12/07/22 9:22 AM) Invalid Interpretation Code 5.0 - 8.0 AO Auto Urine SS UA Protein Negative Invalid Interpretation Code Negative AO Auto Urine SS UA RBC 5-10 /HPF Invalid Interpretation Code None Seen AO Auto Urine SS UA Spec Grav 1.025 (12/07/22 9:22 AM) Invalid Interpretation Code 1.015-1.02 5 AO Auto Urine SS UA Specimen Type Clean Catch (12/07/22 9:22 AM) Invalid Interpretation Code AO Auto Urine SS UA Squam Epithelial 0-5 /HPF Invalid Interpretation Code None Seen AO Auto Urine SS UA Urobilinogen 0.2 E.U./dL Invalid Interpretation Code 0.2-1.0 AO Auto Urine SS WBC LM.HPF (Urine sed) [#/Area] 0-5 /HPF Invalid Interpretation Code None Seen AO Auto Urine SS LIPon 12-07-2022 Lipase Level 28 U/L Normal 16-77 [facility] ([place]) Comment on above: Performed By: #### A WARREN, PRO, CBC, ADIFF #### [address] [address] PROon 12-07-2022 PT Coag (PPP) [Time] 34.7 s High 9.0-14.2 [facility] ([place]) Comment on above: Performed By: #### A WARREN, PRO, CBC, ADIFF #### [address] [address] PT International Ratio 3.0 Normal [facility] ([place]) Comment on above: Result Comment: [employer] (CHEST, 1992, 102:312S-25S) recommended therapeutic range for oral anticoagulant therapy is: LOW RISK: Prophylaxis of venous thrombosis INR: 2.0-3.0 Treatment of pulmonary embolism 2.0-3.0 Prevention of systemic embolism 2.0-3.0 HIGH RISK: Mechanical prosthetic valves 2.5-3.5 Performed By: #### A WARREN, PRO, CBC, ADIFF #### [address] [address] UAon 12-07-2022 Color (U) Yellow Normal [facility] ([place] Comment on above: Performed By: #### A WARREN, PRO, CBC, ADIFF #### [address] [address] Glucose (U) [Mass/Vol] Negative Normal Negative [facility] ([place] Comment on above: Performed By: #### A WARREN, PRO, CBC, ADIFF #### [address] [address] Ketones Ql (U) Negative Normal Negative [facility] ([place] Comment on above: Performed By: #### A WARREN, PRO, CBC, ADIFF #### [address] [address] UA Appear Clear Normal Clear [facility] ([place]) Comment on above: Performed By: #### A WARREN, PRO, CBC, ADIFF #### [address] [address] UA Blood Moderate Abnormal Negative [facility] ([place] Comment on above: Performed By: #### A WARREN, PRO, CBC, ADIFF #### [address] [address] UA Leuk Est Negative Normal Negative [facility] ([place] Comment on above: Performed By: #### A WARREN, PRO, CBC, ADIFF #### [address] [address] UA Nitrite Negative Normal Negative [facility] ([place] Comment on above: Performed By: #### A WARREN, PRO, CBC, ADIFF #### [address] [address] UA pH 6.0 Normal 5.0 - 8.0 [facility] ([place] Comment on above: Performed By: #### A WARREN, PRO, CBC, ADIFF #### [address] [address] UA Protein Negative Normal Negative [facility] ([place] Comment on above: Performed By: #### A WARREN, PRO, CBC, ADIFF #### [address] [address] UA Spec Grav 1.025 Normal 1.015-1.02 5 [facility] ([place] Comment on above: Performed By: #### A WARREN, PRO, CBC, ADIFF #### [address] [address] UA Specimen Type Clean Catch Normal [facility] ([place] Comment on above: Performed By: #### A WARREN, PRO, CBC, ADIFF #### [address] [address] UA Urobilinogen 0.2 E.U./dL Normal 0.2-1.0 [facility] ([place] Comment on above: Performed By: #### A WARREN, PRO, CBC, ADIFF #### [place] [address] Urobilinogen (U) [Mass/Vol] Negative Normal Negative [facility] ([place] Comment on above: Performed By: #### A WARREN, PRO, CBC, ADIFF #### [address] [place] [id number] [place], [place] [address] Final Surgical Pathology Rep celia 11-09-2022 Final Surgical Pathology Report . Pathology Reports Accession: Collected Date/Time: Received Date/Time: Pathologist: [id number] 11/05/2022 08:00 EDT 11/08/2022 10:12 EDT MD MARCELA LE Final Surgical Pathology Report DIAGNOSIS: GASTRIC ANTRUM, BIOPSY: - REACTIVE GASTROPATHY WITH MINIMAL CHRONIC INFLAMMATION - NEGATIVE FOR H. PYLORI CLINICAL INFORMATION: PEPTIC ULCER, SITE UNSPECIFIED, UNSPECIFIED ACUTE OR CHRONIC, WITHOUT HEMORRHAGE OR PERFORATION Procedure: ESOPHAGOGASTRODUODENOSCOPY WITH BX Preoperative diagnosis: PEPTIC ULCER DISEASE Postoperative diagnosis: PEPTIC ULCER DISEASE SPECIMEN: A GASTRIC ANTRUM GROSS DESCRIPTION: All parts labelled with patient name and [id number] Received in formalin labeled gastric antrum are 3 means tissue fragments measuring 0.2 to 0.4 x 0.2 cm. TS-1 Rupal Malone, [employer]ing Retail Receiving Clerk/ Dr. Lorenzo Martinez, Pathologist Dictated by Rupal Malone MICROSCOPIC DESCRIPTION: The microscopic examination is performed, except in the case of Gross Only. Electronically Signed by Pathology Report verified by [facility] MARCELA LE MD Sign out Date: 11/09/2022 15:43 Performing Lab: [facility], [address] [place] [address] Pathology Dept Disclaimer If ancillary studies were utilized, the following Laboratory Developed Test (LDT) disclaimer will apply: Under CLIA requirements, [facility] is qualified to perform high complexity testing. For all ancillary stains, positive and negative controls stain appropriately. Performance characteristics of immunohistochemical and chromogenic in-situ hybridization tests have been determined by [facility]. These tests are used for clinical purposes, They should not be regarded as investigational or for research. Normal [facility] ([place]) .Auto Diffon 09-29-2022 Basophil, Absolute 0.0 10 3/mcL Normal 0.0-0.2 [facility] ([place]) Comment on above: Performed By: #### A WARREN, PRO, CBC, ADIFF #### [address] [address] Basophils/100 WBC (Bld) 0.6 % Normal 0.0-2.5 [facility] ([place]) Comment on above: Performed By: #### A WARREN, PRO, CBC, ADIFF #### [address] [address] Eosinophil, Absolute 0.5 10 3/mcL High 0.0-0.4 [facility] ([place]) Comment on above: Performed By: #### A WARREN, PRO, CBC, ADIFF #### [address] [address] Eosinophils/100 WBC (Bld) 7.2 % High 0.0-7.0 [facility] ([place]) Comment on above: Performed By: #### A WARREN, PRO, CBC, ADIFF #### [address] [address] Lymphocyte, Absolute 1.7 10 3/mcL Normal 0.8-3.9 [facility] ([place] Comment on above: Performed By: #### A WARREN, PRO, CBC, ADIFF #### [address] [address] Lymphocytes/100 WBC (Bld) 26.5 % Normal 10.0-50.0 [facility] ([place] Comment on above: Performed By: #### A WARREN, PRO, CBC, ADIFF #### [address] [address] Monocyte, Absolute 0.5 10 3/mcL Normal 0.2-1.0 [facility] ([place]) Comment on above: Performed By: #### A WARREN, PRO, CBC, ADIFF #### [address] [address] Monocytes/100 WBC (Bld) 8.7 % Normal 1.7-13.0 [facility] ([place]) Comment on above: Performed By: #### A WARREN, PRO, CBC, ADIFF #### [address] [address] Neutrophils/100 WBC (Bld) 57.0 % Normal 37.0-80.0 [facility] ([place] Comment on above: Performed By: #### A WARREN, PRO, CBC, ADIFF #### [address] [address] .MDWon 09-29-2022 Monocyte Distribution Width 15.89 Normal 0.00-20.00 [facility] ([place] Comment on above: Result Comment: For ED adult patients suspected of sepsis, MDW<=20.0 does not rule out sepsis or risk of sepsis Performed By: #### A WARREN, PRO, CBC, ADIFF #### [place] [address] .NEUABSon 09-29-2022 Neutrophil, Absolute 3.6 10 3/mcL Normal 2.9-6.2 [facility] ([place]) Comment on above: Performed By: #### A WARREN, PRO, CBC, ADIFF #### [place] [address] APTTon 09-29-2022 aPTT Coag (Bld) [Time] 54.8 s High 25.0-35.0 [facility] ([place]) Comment on above: Result Comment: For Heparin anticoagulation therapy, the recommended therapeutic range is: 50.6-87.4 seconds. Patients on heparin therapy may have an extreme result. Performed By: #### A WARREN, PRO, CBC, ADIFF #### [place] [phone] Heparin dose (APTT) Coumadin PO Normal [facility] ([place]) Comment on above: Performed By: #### A WARREN, PRO, CBC, ADIFF #### [place] [id number] CBCon 09-29-2022 Erythrocyte distribution width (RBC) [Ratio] 16.5 % High 11.5-14.5 [facility] ([place] Comment on above: Performed By: #### A WARREN, PRO, CBC, ADIFF #### [address] [address] Hematocrit (Bld) [Volume fraction] 30.3 % Low 37.0-47.0 [facility] ([place] Comment on above: Performed By: #### A WARREN, PRO, CBC, ADIFF #### [address] [address] Hgb 10.1 G/dL Low 12.0-16.0 [facility] ([place] Comment on above: Performed By: #### A WARREN, PRO, CBC, ADIFF #### [address] [address] MCH (RBC) [Entitic mass] 25.4 pg Low 27.0-31.2 [facility] ([place] Comment on above: Performed By: #### A WARREN, PRO, CBC, ADIFF #### [place] [address] MCHC 33.3 G/dL Normal 33.0-37.0 [facility] ([place] Comment on above: Performed By: #### A WARREN, PRO, CBC, ADIFF #### [place] [phone] MCV (RBC) [Entitic vol] 76.4 fL Low 80.0-94.0 [facility] ([place] Comment on above: Performed By: #### A WARREN, PRO, CBC, ADIFF #### [place] [id number] Platelet 300 10 3/mcL Normal 130-400 [facility] ([place] Comment on above: Performed By: #### A WARREN, PRO, CBC, ADIFF #### [address] [address] Platelet mean volume (Bld) [Entitic vol] 7.0 fL Low 7.4-10.4 [facility] ([place] Comment on above: Performed By: #### A WARREN, PRO, CBC, ADIFF #### [place] [id number] RBC 3.96 10 6/mcL Low 4.20-5.40 [facility] ([place] Comment on above: Performed By: #### A WARREN, PRO, CBC, ADIFF #### [address] [address] WBC 6.3 10 3/mcL Normal 4.6-10.8 [facility] ([place] Comment on above: Performed By: #### A WARREN, PRO, CBC, ADIFF #### [address] [address] PROon 09-29-2022 PT Coag (PPP) [Time] 38.9 s High 9.1-14.2 [facility] ([place]) Comment on above: Performed By: #### A WARREN, PRO, CBC, ADIFF #### [address] [address] PT International Ratio 3.3 Normal [facility] ([place]) Comment on above: Result Comment: [employer] (CHEST, 1992, 102:312S-25S) recommended therapeutic range for oral anticoagulant therapy is: LOW RISK: Prophylaxis of venous thrombosis INR: 2.0-3.0 Treatment of pulmonary embolism 2.0-3.0 Prevention of systemic embolism 2.0-3.0 HIGH RISK: Mechanical prosthetic valves 2.5-3.5 Performed By: #### A WARREN, PRO, CBC, ADIFF #### [address] [address] .Auto Diffon 08-12-2022 Basophil, Absolute 0.0 10 3/mcL Normal 0.0-0.2 [facility] ([place]) Comment on above: Performed By: #### G FR, CBC, MDW, TROPHS, ADIFF, ANEU, PRO, BMP, PBNP #### [address] [address] Basophils/100 WBC (Bld) 0.5 % Normal 0.0-2.5 [facility] ([place] Comment on above: Performed By: #### G FR, CBC, MDW, TROPHS, ADIFF, ANEU, PRO, BMP, PBNP #### [address] [address] Eosinophil, Absolute 0.4 10 3/mcL Normal 0.0-0.4 [facility] ([place] Comment on above: Performed By: #### G FR, CBC, MDW, TROPHS, ADIFF, ANEU, PRO, BMP, PBNP #### [address] [address] Eosinophils/100 WBC (Bld) 4.9 % Normal 0.0-7.0 [facility] ([place] Comment on above: Performed By: #### G FR, CBC, MDW, TROPHS, ADIFF, ANEU, PRO, BMP, PBNP #### [address] [address] Lymphocyte, Absolute 1.9 10 3/mcL Normal 0.8-3.9 [facility] ([place]) Comment on above: Performed By: #### G FR, CBC, MDW, TROPHS, ADIFF, ANEU, PRO, BMP, PBNP #### [address] [address] Lymphocytes/100 WBC (Bld) 23.5 % Normal 10.0-50.0 [facility] ([place] Comment on above: Performed By: #### G FR, CBC, MDW, TROPHS, ADIFF, ANEU, PRO, BMP, PBNP #### [address] [address] Monocyte, Absolute 0.6 10 3/mcL Normal 0.2-1.0 [facility] ([place]) Comment on above: Performed By: #### G FR, CBC, MDW, TROPHS, ADIFF, ANEU, PRO, BMP, PBNP #### [address] [address] Monocytes/100 WBC (Bld) 7.4 % Normal 1.7-13.0 [facility] ([place] Comment on above: Performed By: #### G FR, CBC, MDW, TROPHS, ADIFF, ANEU, PRO, BMP, PBNP #### [address] [address] Neutrophils/100 WBC (Bld) 63.7 % Normal 37.0-80.0 [facility] ([place]) Comment on above: Performed By: #### G , CBC, BARBARA, ELEAZARS, ADLEN, ANEU, PRO, BMP, PBNP #### [address] [address] .GFRon 08-12-2022 GFR 79 ml/min/1.73sqm Normal [facility] ([place]) Comment on above: Result Comment: GFR Population mean for , Non- Americans Ages 20-29 = 116 mL/min/1.73 sq.m. Ages 30-39 = 107 mL/min/1.73 sq.m. Ages 40-49 = 99 mL/min/1.73 sq.m. Ages 50-59 = 93 mL/min/1.73 sq.m. Ages 60-69 = 85 mL/min/1.73 sq.m. Ages 70+ = 75 mL/min/1.73 sq.m. Chronic Kidney Disease: Less than 60 mL/min/1.73 square meters End Stage Renal Disease: Less than 15 mL/min/1.73 square meters Performed By: #### A WARREN, PRO, CBC, ADIFF #### [address] [address] GFR Non- 65 ml/min/1.73sqm Normal [facility] ([place]) Comment on above: Result Comment: GFR Population mean for , Non- Americans Ages 20-29 = 116 mL/min/1.73 sq.m. Ages 30-39 = 107 mL/min/1.73 sq.m. Ages 40-49 = 99 mL/min/1.73 sq.m. Ages 50-59 = 93 mL/min/1.73 sq.m. Ages 60-69 = 85 mL/min/1.73 sq.m. Ages 70+ = 75 mL/min/1.73 sq.m. Chronic Kidney Disease: Less than 60 mL/min/1.73 square meters End Stage Renal Disease: Less than 15 mL/min/1.73 square meters Performed By: #### A WARREN, PRO, CBC, ADIFF #### [place] [phone] .MDWon 08-12-2022 Monocyte Distribution Width 16.21 Normal 0.00-20.00 [facility] ([place]) Comment on above: Result Comment: For ED adult patients suspected of sepsis, MDW<=20.0 does not rule out sepsis or risk of sepsis Performed By: #### G FR, CBC, MDW, TROPHS, ADIFF, ANEU, PRO, BMP, PBNP #### [place] [address] .NEUABSon 08-12-2022 Neutrophil, Absolute 5.1 10 3/mcL Normal 2.9-6.2 [facility] ([place] Comment on above: Performed By: #### G FR, CBC, MDW, TROPHS, ADIFF, ANEU, PRO, BMP, PBNP #### [place] [address] .Urinalysis Microscopic (AO) on 08-12-2022 UA CA Ox Crystal 1+ /hpf Normal [facility] ([place]) Comment on above: Performed By: #### A WARREN, PRO, CBC, ADIFF #### [place] [address] UA RBC 0-5 Abnormal None Seen [facility] ([place] Comment on above: Performed By: #### A WARREN, PRO, CBC, ADIFF #### [place] [address] UA Squam Epithelial 0-5 Abnormal None Seen [facility] ([place]) Comment on above: Performed By: #### A WARREN, PRO, CBC, ADIFF #### [place] [address] UA WBC 0-5 Abnormal None Seen [facility] ([place] Comment on above: Performed By: #### A WARREN, PRO, CBC, ADIFF #### [place] [address] BMPon 08-12-2022 BUN/Creatinine Ratio 20 ratio Normal 7-27 [facility]) Comment on above: Performed By: #### G FR, CBC, MDW, TROPHS, ADIFF, ANEU, PRO, BMP, PBNP #### [address] [address] Calcium [Mass/Vol] 9.6 mg/dL Normal 8.4-10.2 [facility] ([place]) Comment on above: Performed By: #### G FR, CBC, MDW, TROPHS, ADIFF, ANEU, PRO, BMP, PBNP #### [place] [address] Chloride [Moles/Vol] 103 mmol/L Normal 98-107 [facility] ([place]) Comment on above: Performed By: #### G , CBC, MDW, TROPHS, ADIFF, ANEU, PRO, BMP, PBNP #### [place] [address] CO2 [Moles/Vol] 30 mmol/L High 22-29 [facility] ([place]) Comment on above: Performed By: #### G , CBC, MDW, TROPHS, ADIFF, ANEU, PRO, BMP, PBNP #### [place] [address] Creatinine [Mass/Vol] 0.89 mg/dL Normal 0.55-1.02 [facility] ([place]) Comment on above: Performed By: #### G , CBC, BARBARA, TROPHS, ADIFF, ANEU, PRO, BMP, PBNP #### [place] [address] Electrolyte Balance 8.0 mEq/L Normal 4.0-15.0 [facility] ([place]) Comment on above: Performed By: #### G , CBC, BARBARA, TROPHS, ADIFF, ANEU, PRO, BMP, PBNP #### [place] [address] Glucose [Mass/Vol] 105 mg/dL Normal 70-105 [facility] ([place]) Comment on above: Performed By: #### G , CBC, W, TROPHS, ADIFF, ANEU, PRO, BMP, PBNP #### [address] [address] Potassium [Moles/Vol] 3.3 mmol/L Low 3.5-5.1 [facility] ([place]) Comment on above: Performed By: #### G FR, CBC, MDW, TROPHS, ADIFF, ANEU, PRO, BMP, PBNP #### [address] [address] Sodium [Moles/Vol] 141 mmol/L Normal 136-145 [facility] ([place] Comment on above: Performed By: #### G FR, CBC, MDW, TROPHS, ADIFF, ANEU, PRO, BMP, PBNP #### [place] [phone] Urea nitrogen [Mass/Vol] 18 mg/dL Normal 7-18 [facility] ([place]) Comment on above: Performed By: #### G FR, CBC, BARBARA, TROPHS, ADIFF, ANEU, PRO, BMP, PBNP #### [address] [address] CBCon 08-12-2022 Erythrocyte distribution width (RBC) [Ratio] 15.8 % High 11.5-14.5 [facility] ([place]) Comment on above: Performed By: #### G FR, CBC, BARBARA, TROPHS, ADIFF, ANEU, PRO, BMP, PBNP #### [address] [address] Hematocrit (Bld) [Volume fraction] 34.6 % Low 37.0-47.0 [facility] ([place] Comment on above: Performed By: #### G FR, CBC, MDOvidio, TROPHS, ADIFF, ANEU, PRO, BMP, PBNP #### [place] [phone] Hgb 11.4 G/dL Low 12.0-16.0 [facility] ([place]) Comment on above: Performed By: #### G FR, CBC, MDW, TROPHS, ADIFF, ANEU, PRO, BMP, PBNP #### [address] [place] [address] MCH (RBC) [Entitic mass] 25.7 pg Low 27.0-31.2 [facility] ([place] Comment on above: Performed By: #### G FR, CBC, BARBARA, TROPHS, ADIFF, ANEU, PRO, BMP, PBNP #### [address] [address] MCHC 32.8 G/dL Low 33.0-37.0 [facility] ([place] Comment on above: Performed By: #### G FR, CBC, MDW, TROPHS, ADIFF, ANEU, PRO, BMP, PBNP #### [address] [address] MCV (RBC) [Entitic vol] 78.4 fL Low 80.0-94.0 [facility] ([place] Comment on above: Performed By: #### G FR, CBC, BARBARA, TROPHS, ADIFF, ANEU, PRO, BMP, PBNP #### [address] [address] Platelet 300 10 3/mcL Normal 130-400 [facility] ([place]) Comment on above: Performed By: #### G , CBC, BARBARA, TROPHS, ADIFF, ANEU, PRO, BMP, PBNP #### [address] [address] Platelet mean volume (Bld) [Entitic vol] 7.4 fL Normal 7.4-10.4 [facility] ([place] Comment on above: Performed By: #### G FR, CBC, MDOvidio, TROPHS, ADIFF, ANEU, PRO, BMP, PBNP #### [address] [address] RBC 4.42 10 6/mcL Normal 4.20-5.40 [facility] ([place] Comment on above: Performed By: #### G FR, CBC, MDW, TROPHS, ADIFF, ANEU, PRO, BMP, PBNP #### [address] [address] WBC 7.9 10 3/mcL Normal 4.6-10.8 [facility] ([place] Comment on above: Performed By: #### G FR, CBC, MDW, TROPHS, ADIFF, ANEU, PRO, BMP, PBNP #### [facility] [address] [place], [place] [address] LABORATORYOrdered By: Lyla Varma on 08-12-2022 Appearance (U) Clear (08/12/22 6:04 PM) Invalid Interpretation Code Clear AO Auto Urine SS Bilirubin Ql (U) Negative (08/12/22 6:04 PM) Invalid Interpretation Code Negative AO Auto Urine SS Calcium oxalate crystals LM.HPF (Urine sed) [#/Area] 1 /[HPF] Invalid Interpretation Code AO Auto Urine SS Color (U) Yellow (08/12/22 6:04 PM) Invalid Interpretation Code AO Auto Urine SS Glucose Test strip (U) [Mass/Vol] Negative Invalid Interpretation Code Negativemg /dL AO Auto Urine SS Hemoglobin Auto test strip (U) [Mass/Vol] Moderate *ABN* (08/12/22 6:04 PM) Invalid Interpretation Code Negative AO Auto Urine SS Ketones Ql (U) Negative Invalid Interpretation Code Negativemg /dL AO Auto Urine SS UA Leuk Est Negative (08/12/22 6:04 PM) Invalid Interpretation Code Negative AO Auto Urine SS UA Nitrite Negative (08/12/22 6:04 PM) Invalid Interpretation Code Negative AO Auto Urine SS UA pH 5.5 (08/12/22 6:04 PM) Invalid Interpretation Code 5.0 - 8.0 AO Auto Urine SS UA Protein Negative Invalid Interpretation Code Negativemg /dL AO Auto Urine SS UA RBC 0-5 /HPF Invalid Interpretation Code None Seen/HPF AO Auto Urine SS UA Spec Grav >=1.030 *ABN* (08/12/22 6:04 PM) Invalid Interpretation Code 1.015-1.02 5 AO Auto Urine SS UA Specimen Type Clean Catch (08/12/22 6:04 PM) Invalid Interpretation Code AO Auto Urine SS UA Squam Epithelial 0-5 /HPF Invalid Interpretation Code None Seen/HPF AO Auto Urine SS UA Urobilinogen 0.2 E.U./dL Invalid Interpretation Code 0.2-1.0E.U ./dL AO Auto Urine SS WBC LM.HPF (Urine sed) [#/Area] 0-5 /HPF Invalid Interpretation Code None Seen/HPF AO Auto Urine SS LABORATORYOrdered By: SYSTEM SYSTEM on 08-12-2022 Basophil, Absolute 0.0 103/mcL Invalid Interpretation Code 0.0 - 0.2 10^3/mcL AO Workflow SS Basophils/100 WBC (Bld) 0.5 % Invalid Interpretation Code 0.0 - 2.5 % AO Workflow SS Calcium [Mass/Vol] 9.6 mg/dL Invalid Interpretation Code 8.4 - 10.2 mg/dL AO ADM SS Chloride [Moles/Vol] 103 mmol/L Invalid Interpretation Code 98 - 107 mmol/L AO ADM SS CO2 [Moles/Vol] 30 mmol/L Invalid Interpretation Code 22 - 29 mmol/L AO ADM SS Creatinine [Mass/Vol] 0.89 mg/dL Invalid Interpretation Code 0.55 - 1.02 mg/dL AO ADM SS Electrolyte Balance 8.0 mEq/L Invalid Interpretation Code 4.0 - 15.0 mEq/L AO ADM SS Eosinophil, Absolute 0.4 103/mcL Invalid Interpretation Code 0.0 - 0.4 10^3/mcL AO Workflow SS Eosinophils/100 WBC (Bld) 4.9 % Invalid Interpretation Code 0.0 - 7.0 % AO Workflow SS Erythrocyte distribution width (RBC) [Ratio] 15.8 % Invalid Interpretation Code 11.5 - 14.5 % AO Workflow SS GFR/1.73 sq M.predicted among blacks MDRD (S/P/Bld) [Vol rate/Area] 79 ml/min/1.73sqm Invalid Interpretation Code AO Chemistry S GFR/1.73 sq M.predicted among non-blacks MDRD (S/P/Bld) [Vol rate/Area] 65 ml/min/1.73sqm Invalid Interpretation Code AO Chemistry S Glucose [Mass/Vol] 105 mg/dL Invalid Interpretation Code 70 - 105 mg/dL AO ADM SS Hematocrit (Bld) [Volume fraction] 34.6 % Invalid Interpretation Code 37.0 - 47.0 % AO Workflow SS Hemoglobin (Bld) [Mass/Vol] 11.4 G/dL Invalid Interpretation Code 12.0 - 16.0 G/dL AO Workflow SS Lymphocyte, Absolute 1.9 103/mcL Invalid Interpretation Code 0.8 - 3.9 10^3/mcL AO Workflow SS Lymphocytes/100 WBC (Bld) 23.5 % Invalid Interpretation Code 10.0 - 50.0 % AO Workflow SS MCH (RBC) [Entitic mass] 25.7 pg Invalid Interpretation Code 27.0 - 31.2 pg AO Workflow SS MCHC 32.8 G/dL Invalid Interpretation Code 33.0 - 37.0 G/dL AO Workflow SS MCV (RBC) [Entitic vol] 78.4 fL Invalid Interpretation Code 80.0 - 94.0 fL AO Workflow SS Monocyte distribution width Auto (Bld) [Entitic vol] 16.21 Invalid Interpretation Code 0.00 - 20.00 AO Workflow SS Comment on above: Result Comment: For ED adult patients suspected of sepsis, MDW<=20.0 does not rule out sepsis or risk of sepsis Monocyte, Absolute 0.6 103/mcL Invalid Interpretation Code 0.2 - 1.0 10^3/mcL AO Workflow SS Monocytes/100 WBC (Bld) 7.4 % Invalid Interpretation Code 1.7 - 13.0 % AO Workflow SS Natriuretic peptide.B prohormone N-Terminal [Mass/Vol] 85 pg/mL Invalid Interpretation Code 0 - 125 pg/mL AO ADM SS Neutrophil, Absolute 5.1 103/mcL Invalid Interpretation Code 2.9 - 6.2 10^3/mcL AO Workflow SS Neutrophils/100 WBC (Bld) 63.7 % Invalid Interpretation Code 37.0 - 80.0 % AO Workflow SS Platelet mean volume (Bld) [Entitic vol] 7.4 fL Invalid Interpretation Code 7.4 - 10.4 fL AO Workflow SS Platelets (Bld) [#/Vol] 300 103/mcL Invalid Interpretation Code 130 - 400 10^3/mcL AO Workflow SS Potassium [Moles/Vol] 3.3 mmol/L Invalid Interpretation Code 3.5 - 5.1 mmol/L AO ADM SS RBC (Bld) [#/Vol] 4.42 106/mcL Invalid Interpretation Code 4.20 - 5.40 10^6/mcL AO Workflow SS Sodium [Moles/Vol] 141 mmol/L Invalid Interpretation Code 136 - 145 mmol/L AO ADM SS Troponin I.cardiac DL <= 0.01 ng/mL [Mass/Vol] 16.5 ng/L Invalid Interpretation Code 0.0 - 51.4 ng/L AO ADM SS Urea nitrogen [Mass/Vol] 18 mg/dL Invalid Interpretation Code 7 - 18 mg/dL AO ADM SS Urea nitrogen/Creatinin e [Mass ratio] 20 ratio Invalid Interpretation Code 7 - 27 ratio AO ADM SS WBC (Bld) [#/Vol] 7.9 103/mcL Invalid Interpretation Code 4.6 - 10.8 10^3/mcL AO Workflow SS LABORATORYOrdered By: Mckenna Kerr on 08-12-2022 INR Coag (PPP) [Relative time] 3.0 {INR} Invalid Interpretation Code AO HemoHub SS PT Coag (PPP) [Time] 34.9 s Invalid Interpretation Code 9.1 - 14.2 seconds AO Hemo[facility] SS PBNPon 08-12-2022 Natriuretic peptide B (Bld) [Mass/Vol] 85 pg/mL Normal 0-125 [facility] ([place]) Comment on above: Result Comment: NT-p roBNP results of less than 300 pg/mL effectively rules out acute congestive heart failure with 99% negative predictive value. Performed By: #### A WARREN, PRO, CBC, ADIFF #### [address] [address] PROon 08-12-2022 PT Coag (PPP) [Time] 34.9 s High 9.1-14.2 [facility] ([place]) Comment on above: Performed By: #### G FR, CBC, MDW, TROPHS, ADIFF, ANEU, PRO, BMP, PBNP #### [address] [address] PT International Ratio 3.0 Normal [facility] ([place]) Comment on above: Result Comment: [employer] (CHEST, 1991, 102:[id number]) recommended therapeutic range for oral anticoagulant therapy is: LOW RISK: Prophylaxis of venous thrombosis INR: 2.0-3.0 Treatment of pulmonary embolism 2.0-3.0 Prevention of systemic embolism 2.0-3.0 HIGH RISK: Mechanical prosthetic valves 2.5-3.5 Performed By: #### G FR, CBC, MDW, TROPHS, ADIFF, ANEU, PRO, BMP, PBNP #### [address] [address] TROPHSon 08-12-2022 Troponin I High Sensitivity 16.5 ng/L Normal 0.0-51.4 [facility] ([place]) Comment on above: Performed By: #### A WARREN, PRO, CBC, ADIFF #### [address] [address] UAon 08-12-2022 Color (U) Yellow Normal [facility] ([place]) Comment on above: Performed By: #### A WARREN, PRO, CBC, ADIFF #### [address] [address] Glucose (U) [Mass/Vol] Negative Normal Negative [facility] ([place]) Comment on above: Performed By: #### A WARREN, PRO, CBC, ADIFF #### [address] [address] Ketones Ql (U) Negative Normal Negative [facility] ([place]) Comment on above: Performed By: #### A WARREN, PRO, CBC, ADIFF #### [address] [address] UA Appear Clear Normal Clear [facility] ([place]) Comment on above: Performed By: #### A WARREN, PRO, CBC, ADIFF #### [address] [address] UA Blood Moderate Abnormal Negative [facility] ([place]) Comment on above: Performed By: #### A WARREN, PRO, CBC, ADIFF #### [address] [address] UA Leuk Est Negative Normal Negative [facility] ([place]) Comment on above: Performed By: #### A WARREN, PRO, CBC, ADIFF #### [address] [address] UA Nitrite Negative Normal Negative [facility] ([place]) Comment on above: Performed By: #### A WARREN, PRO, CBC, ADIFF #### [address] [address] UA pH 5.5 Normal 5.0 - 8.0 [facility] ([place]) Comment on above: Performed By: #### A WARREN, PRO, CBC, ADIFF #### [address] [address] UA Protein Negative Normal Negative [facility] ([place]) Comment on above: Performed By: #### A WARREN, PRO, CBC, ADIFF #### [address] [address] UA Spec Grav >=1.030 Abnormal 1.015-1.02 5 [facility] ([place]) Comment on above: Performed By: #### A WARREN, PRO, CBC, ADIFF #### [address] [address] UA Specimen Type Clean Catch Normal [facility] ([place]) Comment on above: Performed By: #### A WARREN, PRO, CBC, ADIFF #### [address] [address] UA Urobilinogen 0.2 E.U./dL Normal 0.2-1.0 [facility]) Comment on above: Performed By: #### A WARREN, PRO, CBC, ADIFF #### [address] [address] Urobilinogen (U) [Mass/Vol] Negative Normal Negative [facility]) Comment on above: Performed By: #### A WARREN, PRO, CBC, ADIFF #### [address] [address] XR CHEST 1 VIEWon 08-12-2022 XR CHEST 1 VIEW ORIGINAL EXAMINATION: ONE XRAY VIEW OF THE CHEST 08/12/2022 6:16 pm COMPARISON: 11/19/2021 HISTORY: ORDERING SYSTEM PROVIDED HISTORY: Reason for Exam: near syncope FINDINGS: Median sternotomy changes. 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 Normal cardiomediastinal silhouette. No focal consolidation, large pleural effusion or pneumothorax. No acute osseous findings. Remote right posterior rib fractures. IMPRESSION: No acute radiographic findings. I have personally reviewed the images of this examination and agree with the resident's findings and interpretation. Interpreted by: Ameya Dean MD Preliminary Report By: Savanna Cantu Electronically signed By Ameya Dean MD Dictated Date: 08/12/2022 6:36:00 PM Prelim Date: 08/12/2022 6:38:16 PM Sign Date: 08/12/2022 7:19:21 PM Ordering Provider: SRIDHAR ESPINOZA [facility] ([place]) LABORATORYOrdered By: Junior Gaines on 08-09-2022 INR Coag (PPP) [Relative time] 2.0 {INR} Invalid Interpretation Code AO HemoHub SS PT Coag (PPP) [Time] 23.1 s Invalid Interpretation Code 9.1 - 14.2 seconds AO HemoHub SS PROon 08-09-2022 PT Coag (PPP) [Time] 23.1 s High 9.1-14.2 [facility] ([place]) Comment on above: Performed By: #### A WARREN, PRO, CBC, ADIFF #### [place] [id number] PT International Ratio 2.0 [facility] ([place]) Comment on above: Result Comment: [employer] (CHEST, 1991, 102:312S-25S) recommended therapeutic range for oral anticoagulant therapy is: LOW RISK: Prophylaxis of venous thrombosis INR: 2.0-3.0 Treatment of pulmonary embolism 2.0-3.0 Prevention of systemic embolism 2.0-3.0 HIGH RISK: Mechanical prosthetic valves 2.5-3.5 Performed By: #### A WARREN, PRO, CBC, ADIFF #### [address] [address] LABORATORYOrdered By: Alyx Reno on 07-26-2022 INR Coag (PPP) [Relative time] 2.5 {INR} Invalid Interpretation Code AO HemoHub SS Comment on above: Interpretive Data: Deny zamarripa [employer] (CHEST, 1991, 102:312S-25S) recommended therapeutic range for oral anticoagulant therapy is: LOW RISK: Prophylaxis of venous thrombosis INR: 2.0-3.0 Treatment of pulmonary embolism 2.0-3.0 Prevention of systemic embolism 2.0-3.0 HIGH RISK: Mechanical prosthetic valves 2.5-3.5 PT Coag (PPP) [Time] 29.1 s High 9.1 - 14.2 seconds AO [facility] SS LABORATORYOrdered By: Kimi Stephenson on 07-19-2022 INR Coag (PPP) [Relative time] 2.0 {INR} Invalid Interpretation Code AO [facility] SS Comment on above: Interpretive Data: T dallin [employer] (CHEST1991, 102:[id number]) recommended therapeutic range for oral anticoagulant therapy is: LOW RISK: Prophylaxis of venous thrombosis INR: 2.0-3.0 Treatment of pulmonary embolism 2.0-3.0 Prevention of systemic embolism 2.0-3.0 HIGH RISK: Mechanical prosthetic valves 2.5-3.5 PT Coag (PPP) [Time] 23.0 s High 9.1 - 14.2 seconds AO [facility] SS LABORATORYOrdered By: Junior Gaines on 07-05-2022 INR Coag (PPP) [Relative time] 2.2 {INR} Invalid Interpretation Code AO [facility] SS Comment on above: Interpretive Data: Deny zamarripa [employer] (CHEST1991, 102:312S-25S) recommended therapeutic range for oral anticoagulant therapy is: LOW RISK: Prophylaxis of venous thrombosis INR: 2.0-3.0 Treatment of pulmonary embolism 2.0-3.0 Prevention of systemic embolism 2.0-3.0 HIGH RISK: Mechanical prosthetic valves 2.5-3.5 PT Coag (PPP) [Time] 26.0 s High 9.1 - 14.2 seconds AO [facility] SS LABORATORYOrdered By: Mckenna Kerr on 06-25-2022 INR Coag (PPP) [Relative time] 2.5 {INR} Invalid Interpretation Code AO Hemo[facility] SS Comment on above: Interpretive Data: Deny zamarripa [employer] (CHEST1991, 102:[id number]) recommended therapeutic range for oral anticoagulant therapy is: LOW RISK: Prophylaxis of venous thrombosis INR: 2.0-3.0 Treatment of pulmonary embolism 2.0-3.0 Prevention of systemic embolism 2.0-3.0 HIGH RISK: Mechanical prosthetic valves 2.5-3.5 PT Coag (PPP) [Time] 29.4 s High 9.1 - 14.2 seconds AO [facility] SS LABORATORYOrdered By: Georgina Crowley on 2022 INR Coag (PPP) [Relative time] 2.1 {INR} Invalid Interpretation Code AO Hemo[facility] SS Comment on above: Interpretive Data: Deny zamarripa [employer] (CHEST1991, 102:312S-25S) recommended therapeutic range for oral anticoagulant therapy is: LOW RISK: Prophylaxis of venous thrombosis INR: 2.0-3.0 Treatment of pulmonary embolism 2.0-3.0 Prevention of systemic embolism 2.0-3.0 HIGH RISK: Mechanical prosthetic valves 2.5-3.5 PT Coag (PPP) [Time] 23.8 s High 9.1 - 14.2 seconds AO Hemo[facility] SS LABORATORYOrdered By: SYSTEM SYSTEM on 06-04-2022 Hematocrit (Bld) [Volume fraction] 30.0 % Invalid Interpretation Code 34.0 - 46.0 % AH Workflow SS Hemoglobin (Bld) [Mass/Vol] 10.1 G/dL Invalid Interpretation Code 12.0 - 16.0 G/dL Workflow SS LABORATORYOrdered By: Olimpia Hunter on 06-04-2022 INR Coag (PPP) [Relative time] 2.8 {INR} Invalid Interpretation Code AH Auto Coag SS PT Coag (PPP) [Time] 33.4 s Invalid Interpretation Code 9.0 - 14.8 seconds AH Auto Coag SS LABORATORYOrdered By: SYSTEM SYSTEM on 06-03-2022 Basophils (Bld) [#/Vol] 0.0 103/mcL Invalid Interpretation Code 0.0 - 0.3 10^3/mcL AH Workflow SS Basophils/100 WBC (Bld) 0.3 % Invalid Interpretation Code 0.0 - 2.5 % Workflow SS Calcium [Mass/Vol] 9.2 mg/dL Invalid Interpretation Code 8.7 - 10.4 mg/dL ADM SS Chloride [Moles/Vol] 107 mmol/L Invalid Interpretation Code 98 - 110 mEq/L ADM SS CO2 [Moles/Vol] 32 mmol/L Invalid Interpretation Code 22 - 32 mEq/L ADM SS Creatinine [Mass/Vol] 0.86 mg/dL Invalid Interpretation Code 0.50 - 1.20 mg/dL ADM SS Electrolyte Balance 4.0 mEq/L Invalid Interpretation Code 4.0 - 15.0 mEq/L ADM SS Eosinophils (Bld) [#/Vol] 0.2 103/mcL Invalid Interpretation Code 0.0 - 0.7 10^3/mcL AH Workflow SS Eosinophils/100 WBC (Bld) 3.3 % Invalid Interpretation Code 0.0 - 6.0 % Workflow SS Erythrocyte distribution width (RBC) [Ratio] 14.7 % Invalid Interpretation Code 11.5 - 15.5 % Workflow SS GFR/1.73 sq M.predicted among blacks MDRD (S/P/Bld) [Vol rate/Area] ml/min/1.73sqm Invalid Interpretation Code Chemistry S GFR/1.73 sq M.predicted among non-blacks MDRD (S/P/Bld) [Vol rate/Area] ml/min/1.73sqm Invalid Interpretation Code Chemistry S Glucose [Mass/Vol] 96 mg/dL Invalid Interpretation Code 70 - 110 mg/dL ADM SS Hematocrit (Bld) [Volume fraction] 31.8 % Invalid Interpretation Code 34.0 - 46.0 % Workflow SS Hemoglobin (Bld) [Mass/Vol] 10.9 G/dL Invalid Interpretation Code 12.0 - 16.0 G/dL AH Workflow SS Lymphocytes (Bld) [#/Vol] 1.1 103/mcL Invalid Interpretation Code 0.9 - 4.3 10^3/mcL Workflow SS Lymphocytes/100 WBC (Bld) 16.6 % Invalid Interpretation Code 20.0 - 40.0 % AH Workflow SS MCH (RBC) [Entitic mass] 29.0 pg Invalid Interpretation Code 27.0 - 33.0 pg AH Workflow SS MCHC 34.4 G/dL Invalid Interpretation Code 32.0 - 36.0 G/dL Workflow SS MCV (RBC) [Entitic vol] 84.3 fL Invalid Interpretation Code 80.0 - 99.0 fL Workflow SS Monocytes (Bld) [#/Vol] 0.5 103/mcL Invalid Interpretation Code 0.1 - 1.4 10^3/mcL Workflow SS Monocytes/100 WBC (Bld) 7.4 % Invalid Interpretation Code 2.0 - 13.0 % Workflow SS Neutrophils (Bld) [#/Vol] 4.8 103/mcL Invalid Interpretation Code 2.3 - 8.1 10^3/mcL Workflow SS Neutrophils/100 WBC (Bld) 72.4 % Invalid Interpretation Code 50.0 - 75.0 % Workflow SS Platelet mean volume (Bld) [Entitic vol] 7.9 fL Invalid Interpretation Code 6.6 - 10.5 fL AH Workflow SS Platelets (Bld) [#/Vol] 237 103/mcL Invalid Interpretation Code 150 - 450 10^3/mcL AH Workflow SS Potassium [Moles/Vol] 4.1 mmol/L Invalid Interpretation Code 3.5 - 5.0 mEq/L ADM SS RBC (Bld) [#/Vol] 3.77 106/mcL Invalid Interpretation Code 4.10 - 5.30 10^6/mcL Workflow SS Sodium [Moles/Vol] 143 mmol/L Invalid Interpretation Code 136 - 145 mEq/L ADM SS Urea nitrogen [Mass/Vol] 23.0 mg/dL Invalid Interpretation Code 8.0 - 22.0 mg/dL ADM SS Urea nitrogen/Creatinin e [Mass ratio] 26.7 ratio Invalid Interpretation Code 10.0 - 22.0 ratio ADM SS WBC (Bld) [#/Vol] 6.6 103/mcL Invalid Interpretation Code 4.5 - 10.8 10^3/mcL Workflow SS LABORATORYOrdered By: Ekta Newell on 06-03-2022 INR Coag (PPP) [Relative time] 2.5 {INR} Invalid Interpretation Code Auto Coag SS PT Coag (PPP) [Time] 30.5 s Invalid Interpretation Code 9.0 - 14.8 seconds Auto Coag SS LABORATORYOrdered By: SYSTEM SYSTEM on 06-02-2022 Calcium [Mass/Vol] 9.2 mg/dL Invalid Interpretation Code 8.7 - 10.4 mg/dL ADM SS Chloride [Moles/Vol] 108 mmol/L Invalid Interpretation Code 98 - 110 mEq/L ADM SS CO2 [Moles/Vol] 34 mmol/L Invalid Interpretation Code 22 - 32 mEq/L ADM SS Creatinine [Mass/Vol] 0.94 mg/dL Invalid Interpretation Code 0.50 - 1.20 mg/dL ADM SS Electrolyte Balance 1.0 mEq/L Invalid Interpretation Code 4.0 - 15.0 mEq/L ADM SS GFR/1.73 sq M.predicted among blacks MDRD (S/P/Bld) [Vol rate/Area] ml/min/1.73sqm Invalid Interpretation Code Chemistry S GFR/1.73 sq M.predicted among non-blacks MDRD (S/P/Bld) [Vol rate/Area] ml/min/1.73sqm Invalid Interpretation Code Chemistry S Glucose [Mass/Vol] 96 mg/dL Invalid Interpretation Code 70 - 110 mg/dL AH ADM SS Potassium [Moles/Vol] 3.9 mmol/L Invalid Interpretation Code 3.5 - 5.0 mEq/L AH ADM SS Comment on above: Result Comment: Spec imen slightly hemolyzed. Sodium [Moles/Vol] 143 mmol/L Invalid Interpretation Code 136 - 145 mEq/L AH ADM SS Urea nitrogen [Mass/Vol] 24.0 mg/dL Invalid Interpretation Code 8.0 - 22.0 mg/dL ADM SS Urea nitrogen/Creatinin e [Mass ratio] 25.5 ratio Invalid Interpretation Code 10.0 - 22.0 ratio AH ADM SS LABORATORYOrdered By: Rajni Watson on 06-02-2022 INR Coag (PPP) [Relative time] 2.2 {INR} Invalid Interpretation Code AH Auto Coag SS PT Coag (PPP) [Time] 26.4 s Invalid Interpretation Code 9.0 - 14.8 seconds AH Auto Coag SS LABORATORYOrdered By: Mckenna Kerr on 04-30-2022 INR Coag (PPP) [Relative time] 2.2 {INR} Invalid Interpretation Code AO Hemo[facility] SS PT Coag (PPP) [Time] 25.1 s Invalid Interpretation Code 9.1 - 14.2 seconds AO [facility] SS LABORATORYOrdered By: Mckenna Kerr on 03-26-2022 INR Coag (PPP) [Relative time] 2.1 {INR} Invalid Interpretation Code AO Hemo[facility] SS PT Coag (PPP) [Time] 24.8 s Invalid Interpretation Code 9.1 - 14.2 seconds AO [facility] SS LABORATORYOrdered By: Nadia Rider on 02-11-2022 Appearance (U) Clear (02/11/22 1:58 PM) Invalid Interpretation Code Clear AO Auto Urine SS Bilirubin Ql (U) Negative (02/11/22 1:58 PM) Invalid Interpretation Code Negative AO Auto Urine SS Color (U) Yellow (02/11/22 1:58 PM) Invalid Interpretation Code AO Auto Urine SS Glucose Test strip (U) [Mass/Vol] Negative Invalid Interpretation Code Negativemg /dL AO Auto Urine SS Hemoglobin Auto test strip (U) [Mass/Vol] Small *ABN* (02/11/22 1:58 PM) Invalid Interpretation Code Negative AO Auto Urine SS Ketones Ql (U) Negative Invalid Interpretation Code Negativemg /dL AO Auto Urine SS UA Leuk Est Negative (02/11/22 1:58 PM) Invalid Interpretation Code Negative AO Auto Urine SS UA Nitrite Negative (02/11/22 1:58 PM) Invalid Interpretation Code Negative AO Auto Urine SS UA pH 5.5 (02/11/22 1:58 PM) Invalid Interpretation Code 5.0 - 8.0 AO Auto Urine SS UA Protein Negative Invalid Interpretation Code Negativemg /dL AO Auto Urine SS UA Spec Grav >=1.030 *ABN* (02/11/22 1:58 PM) Invalid Interpretation Code 1.015-1.02 5 AO Auto Urine SS UA Specimen Type Clean Catch (02/11/22 1:58 PM) Invalid Interpretation Code AO Auto Urine SS UA Urobilinogen 0.2 E.U./dL Invalid Interpretation Code 0.2-1.0E.U ./dL AO Auto Urine SS INR Coag (PPP) [Relative time] 2.3 {INR} Invalid Interpretation Code 0.9 - 1.2 ratio AO Coag SS PT Coag (PPP) [Time] 25.0 s Invalid Interpretation Code 9.7 - 13.9 seconds AO Coag SS LABORATORYOrdered By: Mckenna Kerr on 02-11-2022 Basophil, Absolute 0.1 103/mcL Invalid Interpretation Code 0.0 - 0.2 10^3/mcL AO Workflow SS Basophils/100 WBC (Bld) 0.8 % Invalid Interpretation Code 0.0 - 2.5 % AO Workflow SS Eosinophil, Absolute 0.7 103/mcL Invalid Interpretation Code 0.0 - 0.4 10^3/mcL AO Workflow SS Eosinophils/100 WBC (Bld) 5.9 % Invalid Interpretation Code 0.0 - 7.0 % AO Workflow SS Erythrocyte distribution width (RBC) [Ratio] 13.8 % Invalid Interpretation Code 11.5 - 14.5 % AO Workflow SS Hematocrit (Bld) [Volume fraction] 42.1 % Invalid Interpretation Code 37.0 - 47.0 % AO Workflow SS Hemoglobin (Bld) [Mass/Vol] 14.6 G/dL Invalid Interpretation Code 12.0 - 16.0 G/dL AO Workflow SS Lymphocyte, Absolute 2.4 103/mcL Invalid Interpretation Code 0.8 - 3.9 10^3/mcL AO Workflow SS Lymphocytes/100 WBC (Bld) 21.8 % Invalid Interpretation Code 10.0 - 50.0 % AO Workflow SS MCH (RBC) [Entitic mass] 29.5 pg Invalid Interpretation Code 27.0 - 31.2 pg AO Workflow SS MCHC 34.6 G/dL Invalid Interpretation Code 33.0 - 37.0 G/dL AO Workflow SS MCV (RBC) [Entitic vol] 85.1 fL Invalid Interpretation Code 80.0 - 94.0 fL AO Workflow SS Monocyte, Absolute 0.9 103/mcL Invalid Interpretation Code 0.2 - 1.0 10^3/mcL AO Workflow SS Monocytes/100 WBC (Bld) 7.9 % Invalid Interpretation Code 1.7 - 13.0 % AO Workflow SS Neutrophil, Absolute 7.1 103/mcL Invalid Interpretation Code 2.9 - 6.2 10^3/mcL AO Workflow SS Neutrophils/100 WBC (Bld) 63.6 % Invalid Interpretation Code 37.0 - 80.0 % AO Workflow SS Platelet Estimate Normal (02/11/22 12:15 PM) Invalid Interpretation Code AO Hematology S Platelet mean volume (Bld) [Entitic vol] 7.2 fL Invalid Interpretation Code 7.4 - 10.4 fL AO Workflow SS Platelets (Bld) [#/Vol] 328 103/mcL Invalid Interpretation Code 130 - 400 10^3/mcL AO Workflow SS RBC (Bld) [#/Vol] 4.95 106/mcL Invalid Interpretation Code 4.20 - 5.40 10^6/mcL AO Workflow SS WBC (Bld) [#/Vol] 11.1 103/mcL Invalid Interpretation Code 4.6 - 10.8 10^3/mcL AO Workflow SS LABORATORYOrdered By: SYSTEM SYSTEM on 02-11-2022 Calcium [Mass/Vol] 10.2 mg/dL Invalid Interpretation Code 8.4 - 10.2 mg/dL AO ADM SS Chloride [Moles/Vol] 103 mmol/L Invalid Interpretation Code 98 - 107 mmol/L AO ADM SS CO2 [Moles/Vol] 30 mmol/L Invalid Interpretation Code 22 - 29 mmol/L AO ADM SS Creatinine [Mass/Vol] 0.93 mg/dL Invalid Interpretation Code 0.55 - 1.02 mg/dL AO ADM SS Electrolyte Balance 9.0 mEq/L Invalid Interpretation Code 4.0 - 15.0 mEq/L AO ADM SS GFR 76 ml/min/1.73sqm Invalid Interpretation Code AO Chemistry S GFR Non- 62 ml/min/1.73sqm Invalid Interpretation Code AO Chemistry S Glucose [Mass/Vol] 103 mg/dL Invalid Interpretation Code 70 - 105 mg/dL AO ADM SS Monocyte distribution width Auto (Bld) [Entitic vol] Not Performed 1 *NA* (02/11/22 12:15 PM) Invalid Interpretation Code 0.00 - 20.00 AO Hematology S Comment on above: Result Comment: MDW testing performed only on adult ER patients between the ages of 18-89 years. Potassium [Moles/Vol] 3.6 mmol/L Invalid Interpretation Code 3.5 - 5.1 mmol/L AO ADM SS Sodium [Moles/Vol] 142 mmol/L Invalid Interpretation Code 136 - 145 mmol/L AO ADM SS Urea nitrogen [Mass/Vol] 27 mg/dL Invalid Interpretation Code 7 - 18 mg/dL AO ADM SS Urea nitrogen/Creatinin e [Mass ratio] 29 ratio Invalid Interpretation Code 7 - 27 ratio AO ADM SS LABORATORYOrdered By: Alma Delia Bateman on 11-19-2021 Basophil, Absolute 0.0 103/mcL Invalid Interpretation Code 0.0 - 0.2 10^3/mcL AO Workflow SS Basophils/100 WBC (Bld) 0.4 % Invalid Interpretation Code 0.0 - 2.5 % AO Workflow SS Eosinophil, Absolute 0.4 103/mcL Invalid Interpretation Code 0.0 - 0.4 10^3/mcL AO Workflow SS Eosinophils/100 WBC (Bld) 5.6 % Invalid Interpretation Code 0.0 - 7.0 % AO Workflow SS Erythrocyte distribution width (RBC) [Ratio] 13.5 % Invalid Interpretation Code 11.5 - 14.5 % AO Workflow SS Hematocrit (Bld) [Volume fraction] 36.8 % Invalid Interpretation Code 37.0 - 47.0 % AO Workflow SS Hemoglobin (Bld) [Mass/Vol] 12.9 G/dL Invalid Interpretation Code 12.0 - 16.0 G/dL AO Workflow SS Lymphocyte, Absolute 2.0 103/mcL Invalid Interpretation Code 0.8 - 3.9 10^3/mcL AO Workflow SS Lymphocytes/100 WBC (Bld) 25.0 % Invalid Interpretation Code 10.0 - 50.0 % AO Workflow SS MCH (RBC) [Entitic mass] 30.4 pg Invalid Interpretation Code 27.0 - 31.2 pg AO Workflow SS MCHC 35.2 G/dL Invalid Interpretation Code 33.0 - 37.0 G/dL AO Workflow SS MCV (RBC) [Entitic vol] 86.4 fL Invalid Interpretation Code 80.0 - 94.0 fL AO Workflow SS Monocyte distribution width Auto (Bld) [Entitic vol] 15.58 Invalid Interpretation Code 0.00 - 20.00 AO Workflow SS Comment on above: Result Comment: For ED adult patients suspected of sepsis, MDW<=20.0 does not rule out sepsis or risk of sepsis Monocyte, Absolute 0.5 103/mcL Invalid Interpretation Code 0.2 - 1.0 10^3/mcL AO Workflow SS Monocytes/100 WBC (Bld) 6.4 % Invalid Interpretation Code 1.7 - 13.0 % AO Workflow SS Neutrophil, Absolute 5.0 103/mcL Invalid Interpretation Code 2.9 - 6.2 10^3/mcL AO Workflow SS Neutrophils/100 WBC (Bld) 62.6 % Invalid Interpretation Code 37.0 - 80.0 % AO Workflow SS Platelet mean volume (Bld) [Entitic vol] 7.2 fL Invalid Interpretation Code 7.4 - 10.4 fL AO Workflow SS Platelets (Bld) [#/Vol] 290 103/mcL Invalid Interpretation Code 130 - 400 10^3/mcL AO Workflow SS RBC (Bld) [#/Vol] 4.26 106/mcL Invalid Interpretation Code 4.20 - 5.40 10^6/mcL AO Workflow SS WBC (Bld) [#/Vol] 8.0 103/mcL Invalid Interpretation Code 4.6 - 10.8 10^3/mcL AO Workflow SS LABORATORYOrdered By: Nadia Rider on 11-19-2021 Calcium [Mass/Vol] 9.0 mg/dL Invalid Interpretation Code 8.4 - 10.2 mg/dL AO ADM SS Chloride [Moles/Vol] 105 mmol/L Invalid Interpretation Code 98 - 107 mmol/L AO ADM SS CO2 [Moles/Vol] 29 mmol/L Invalid Interpretation Code 22 - 29 mmol/L AO ADM SS Creatinine [Mass/Vol] 0.87 mg/dL Invalid Interpretation Code 0.55 - 1.02 mg/dL AO ADM SS Electrolyte Balance 8.0 mEq/L Invalid Interpretation Code 4.0 - 15.0 mEq/L AO ADM SS Glucose [Mass/Vol] 102 mg/dL Invalid Interpretation Code 70 - 105 mg/dL AO ADM SS INR Coag (PPP) [Relative time] 2.5 {INR} Invalid Interpretation Code 0.9 - 1.2 ratio AO Coag SS Natriuretic peptide.B prohormone N-Terminal [Mass/Vol] 133 pg/mL Invalid Interpretation Code 0 - 125 pg/mL AO ADM SS Potassium [Moles/Vol] 3.2 mmol/L Invalid Interpretation Code 3.5 - 5.1 mmol/L AO ADM SS PT Coag (PPP) [Time] 27.3 s Invalid Interpretation Code 9.7 - 13.9 seconds AO Coag SS Sodium [Moles/Vol] 142 mmol/L Invalid Interpretation Code 136 - 145 mmol/L AO ADM SS Troponin I.cardiac DL <= 0.01 ng/mL [Mass/Vol] 11.7 ng/L Invalid Interpretation Code 0.0 - 51.4 ng/L AO ADM SS Urea nitrogen [Mass/Vol] 19 mg/dL Invalid Interpretation Code 7 - 18 mg/dL AO ADM SS Urea nitrogen/Creatinin e [Mass ratio] 22 ratio Invalid Interpretation Code 7 - 27 ratio AO ADM SS LABORATORYOrdered By: SYSTEM SYSTEM on 11-19-2021 GFR 82 ml/min/1.73sqm Invalid Interpretation Code AO Chemistry S GFR Non- 67 ml/min/1.73sqm Invalid Interpretation Code AO Chemistry S LABORATORYOrdered By: Kimi Stephenson on 11-13-2021 INR Coag (PPP) [Relative time] 3.7 {INR} Invalid Interpretation Code 0.9 - 1.2 ratio AO Coag SS PT Coag (PPP) [Time] 38.8 s Invalid Interpretation Code 9.7 - 13.9 seconds AO Coag SS LABORATORYOrdered By: Rolando Neves on 10-08-2021 ADMITTED TO INTENSIVE CARE UNIT FOR CONDITION OF INTEREST:FIND:PT:^ PATIENT:ORD: No (10/08/21 6:50 AM) Invalid Interpretation Code AO Auto Urine SS EMPLOYED IN A HEALTHCARE SETTING:FIND:PT:^P ATIENT:ORD: Yes (10/08/21 6:50 AM) Invalid Interpretation Code AO Auto Urine SS FIRST TEST FOR CONDITION OF INTEREST:FIND:PT:^ PATIENT:ORD: Unknown (10/08/21 6:50 AM) Invalid Interpretation Code AO Auto Urine SS HAS SYMPTOMS RELATED TO CONDITION OF INTEREST:FIND:PT:^ PATIENT:ORD: No (10/08/21 6:50 AM) Invalid Interpretation Code AO Auto Urine SS Illness or injury onset date and time 20211007 Invalid Interpretation Code AO Auto Urine SS Patient was hospitalized because of this condition No (10/08/21 6:50 AM) Invalid Interpretation Code AO Auto Urine SS status Not (10/08/21 6:50 AM) Invalid Interpretation Code AO Auto Urine SS RESIDES IN A CONGREGATE CARE SETTING:FIND:PT:^P ATIENT:ORD: No (10/08/21 6:50 AM) Invalid Interpretation Code AO Auto Urine SS SARS-CoV-2 (COVID-19) RNA BRENDAN+probe Ql (Unsp spec) Negative *NA* (10/08/21 6:50 AM) Invalid Interpretation Code Negative AO Auto Urine SS SARS-CoV-2 (COVID-19) RNA BRENDAN+probe Ql (Unsp spec) Negative results do not preclude SARS-CoV-2 infection and should not be used as the sole basis for patient management decisions. Negative results must be combined with clinical observations, patient history, and epidemiological information.There is a risk of false negative values resulting from improperly collected, transported, or handled specimens.There is a risk of false negative values due to the presence of sequence variants in the pathogen targets of the assay, procedural errors, amplification inhibitors in specimens, or inadequate numbers of organisms for amplification.DANIA SARS-CoV-2 Assay is a Real-Time reverse-transcriptase polymerase chain reaction (RT-PCR) based qualitative in vitro diagnostic test intended for the qualitative detection of nucleic acid from the SARS-CoV-2 in nasopharyngeal swab specimens collected from individuals suspected of COVID-19 by their healthcare provider. Testing is limited to laboratories certified under the Clinical Laboratory Improvement Amendments of 1988 (CLIA), 42 U.S.C. 263a, to perform moderate and high complexity tests. Invalid Interpretation Code AO Auto Urine SS Basic metabolic 2000 panelon 09-08-2021 Anion gap [Moles/Vol] 3 mmol/L Low 5-16 [facility] Comment on above: Order Comment: Speci men Type: BLOOD SPECIMEN Ordering Facility: [facility] Address: [address] [place] [phone] Performed By: #### 2 4321-2 #### [facility] CLIA [id number] [address] [place] [address] [place] Calcium [Mass/Vol] 8.8 mg/dL Normal 8.5-10.5 [facility] Comment on above: Order Comment: Speci men Type: BLOOD SPECIMEN Ordering Facility: [facility] Address: [address] [place] [address] Performed By: #### 2 4321-2 #### [facility] CLIA [id number] [address] [place] [address] [place] Chloride [Moles/Vol] 106 mmol/L Normal 98-107 [facility] Comment on above: Order Comment: Speci men Type: BLOOD SPECIMEN Ordering Facility: [facility] Address: [address] [place] [address] Performed By: #### 2 4321-2 #### [facility] CLIA [id number] [address] [place] [address] [place] CO2 [Moles/Vol] 32 mmol/L Normal 21-32 [facility] Comment on above: Order Comment: Speci men Type: BLOOD SPECIMEN Ordering Facility: [facility] Address: [address] [place] [address] Performed By: #### 2 4321-2 #### [facility] CLIA [id number] [address] [place] [address] [place] Creatinine [Mass/Vol] 0.72 mg/dL Normal 0.51-0.95 [facility] Comment on above: Order Comment: Speci men Type: BLOOD SPECIMEN Ordering Facility: [facility] Address: [address] [place] [address] Result Comment: Jimena ents receiving either N-Acetylcysteine (NAC) or Metamizole prior to venipuncture, may have falsely depressed results. Performed By: #### 2 4321-2 #### [facility] CLIA [id number] [address] [place] [address] [place] ESTIMATED GLOMERULAR FILTRATION RATE 98 mL/min/1.73m??? Normal >=60 [facility] Comment on above: Order Comment: Dominic steel Type: BLOOD SPECIMEN Ordering Facility: [facility] Address: [address] [place] [phone] Result Comment: Susie mated Glomerular Filtration Rate (eGFR) is calculated using the 2020 CKD-EPI creatinine equation. This equation utilizes serum creatinine, sex, and age as parameters. The creatinine assay has traceable calibration to isotope dilution-mass spectrometry. Refer to KDIGO guidelines for clinical interpretation. In patients with unstable renal function, e.g. those with acute kidney injury, the eGFR may not accurately reflect actual GFR. Performed By: #### 2 4321-2 #### [facility] CLIA [id number] [address] [place] [address] [place] Glucose [Mass/Vol] 97 mg/dL Normal 70-100 [facility] Comment on above: Order Comment: Dominic steel Type: BLOOD SPECIMEN Ordering Facility: [facility] Address: [address] [place], [place] [phone] Result Comment: The [place] Diabetes Association (ADA) provides guidance for cutoff values for fasting glucose and random glucose. The ADA defines fasting as no caloric intake for at least 8 hours. Fasting plasma glucose results between 100 to 125 mg/dL indicate increased risk for diabetes (prediabetes). Fasting plasma glucose results greater than or equal to 126 mg/dL meet the criteria for diagnosis of diabetes. In the absence of unequivocal hyperglycemia, results should be confirmed by repeat testing. In a patient with classic symptoms of hyperglycemia or hyperglycemic crisis, random plasma glucose results greater than or equal to 200 mg/dL meet the criteria for diagnosis of diabetes. Reference: Standards of Medical Care in Diabetes 2016, [place] [employer] Association. Diabetes Care. 2016.39(Suppl 1). Results may be falsely elevated after the administration of Sulfapyridine. Results may be falsely depressed after the administration of Sulfasalazine. Performed By: #### 2 4321-2 #### [facility] CLIA [id number] [address] [place] [address] [place] Potassium [Moles/Vol] 4.1 mmol/L Normal 3.5-5.1 [facility] Comment on above: Order Comment: Dominic steel Type: BLOOD SPECIMEN Ordering Facility: [facility] Address: [address] [place], [place] [phone] Performed By: #### 2 4321-2 #### [facility] CLIA [id number] [address] [place] [address] [place] Sodium [Moles/Vol] 141 mmol/L Normal 136-145 [facility] Comment on above: Order Comment: Speci men Type: BLOOD SPECIMEN Ordering Facility: [facility] Address: [address] [place] [address] Performed By: #### 2 4321-2 #### [facility] CLIA [id number] [address] [place] [address] [place] Urea nitrogen [Mass/Vol] 19 mg/dL Normal 09-08 [facility] Comment on above: Order Comment: Speci men Type: BLOOD SPECIMEN Ordering Facility: [facility] Address: [address] [place] [address] Performed By: #### 2 4321-2 #### [facility] CLIA [id number] [address] [place] [address] [place] CBC W Auto Differential pane l (Bld)on 09-08-2021 Basophils (Bld) [#/Vol] 0.03 10*3/uL Normal <0.11 [facility] Comment on above: Order Comment: Speci men Type: BLOOD SPECIMEN Ordering Facility: [facility] Address: [address] [place] [address] Performed By: #### 5 7021-8 #### [facility] CLIA [id number] [address] [place] [address] [place] Basophils/100 WBC (Bld) 0.4 % Normal [facility] Comment on above: Order Comment: Speci men Type: BLOOD SPECIMEN Ordering Facility: [facility] Address: [address] [place] [address] Performed By: #### 5 7021-8 #### [facility] CLIA [id number] [address] [place] [address] [place] Differential cell count method Nom (Bld) Auto Normal [facility] Comment on above: Order Comment: Speci men Type: BLOOD SPECIMEN Ordering Facility: [facility] Address: [facility] [address] Performed By: #### 5 7021-8 #### [facility] CLIA [id number] [address] [place] [address] [place] Eosinophils (Bld) [#/Vol] 0.37 10*3/uL Normal <0.46 [facility] Comment on above: Order Comment: Speci men Type: BLOOD SPECIMEN Ordering Facility: [facility] Address: [address] [place], [place] [phone] Performed By: #### 5 7021-8 #### [facility] CLIA [id number] [address] [place] [address] [place] Eosinophils/100 WBC (Bld) 5.2 % Normal [facility] Comment on above: Order Comment: Speci men Type: BLOOD SPECIMEN Ordering Facility: [facility] Address: [address] [place], [place] [phone] Performed By: #### 5 7021-8 #### [facility] CLIA [id number] [address] [place] [address] [place] Erythrocyte distribution width (RBC) [Ratio] 13.1 % Normal 11.5-15.0 [facility] Comment on above: Order Comment: Speci men Type: BLOOD SPECIMEN Ordering Facility: [facility] Address: [address] [place], [place] [phone] Performed By: #### 5 7021-8 #### [facility] CLIA [id number] [address] [place] [address] [place] Hematocrit (Bld) [Volume fraction] 30.7 % Low 36.0-46.0 [facility] Comment on above: Order Comment: Speci men Type: BLOOD SPECIMEN Ordering Facility: [facility] Address: [address] [place], [place] [phone] Performed By: #### 5 7021-8 #### [facility] CLIA [id number] [address] [place] [address] [place] Hemoglobin (Bld) [Mass/Vol] 10.7 g/dL Low 11.5-15.5 [facility] Comment on above: Order Comment: Speci men Type: BLOOD SPECIMEN Ordering Facility: [facility] Address: [address] [place] [address] Performed By: #### 5 7021-8 #### [facility] CLIA [id number] [address] [place] [address] [place] IMMATURE GRAN % 0.3 % Normal [facility] Comment on above: Order Comment: Speci men Type: BLOOD SPECIMEN Ordering Facility: [facility] Address: [address] [place] [address] Performed By: #### 5 7021-8 #### [facility] CLIA [id number] [address] [place] [address] [place] IMMATURE GRAN ABS <0.03 Normal <0.10 [facility] Comment on above: Order Comment: Speci men Type: BLOOD SPECIMEN Ordering Facility: [facility] Address: [address] [place] [address] Performed By: #### 5 7021-8 #### [facility] CLIA [id number] [address] [place] [address] [place] Lymphocytes (Bld) [#/Vol] 1.48 10*3/uL Normal 1.00-4.00 [facility] Comment on above: Order Comment: Speci men Type: BLOOD SPECIMEN Ordering Facility: [facility] Address: [address] [place] [address] Performed By: #### 5 7021-8 #### [facility] CLIA [id number] [address] [place] [address] [place] Lymphocytes/100 WBC (Bld) 20.6 % Normal [facility] Comment on above: Order Comment: Speci men Type: BLOOD SPECIMEN Ordering Facility: [facility] Address: [address] [place] [address] Performed By: #### 5 7021-8 #### [facility] CLIA [id number] [address] [place] [address] [place] [facility] MCH (RBC) [Entitic mass] 30.7 pg Normal 26.0-34.0 [facility] Comment on above: Order Comment: Speci men Type: BLOOD SPECIMEN Ordering Facility: [facility] Address: [address] [place] [address] Performed By: #### 5 7021-8 #### [facility] CLIA [id number] [address] [place] [address] [place] MCHC (RBC) [Mass/Vol] 34.9 g/dL Normal 30.5-36.0 [facility] Comment on above: Order Comment: Speci men Type: BLOOD SPECIMEN Ordering Facility: [facility] Address: [address] [place] [address] Performed By: #### 5 7021-8 #### [facility] CLIA [id number] [address] [place] [address] [place] MCV (RBC) [Entitic vol] 88.2 fL Normal 80.0-100.0 [facility] Comment on above: Order Comment: Speci men Type: BLOOD SPECIMEN Ordering Facility: [facility] Address: [address] [place] [address] Performed By: #### 5 7021-8 #### [facility] CLIA [id number] [address] [place] [address] [place] Monocytes (Bld) [#/Vol] 0.53 10*3/uL Normal <0.87 [facility] Comment on above: Order Comment: Speci men Type: BLOOD SPECIMEN Ordering Facility: [facility] Address: [address] [place] [address] Performed By: #### 5 7021-8 #### [facility] CLIA [id number] [address] [place] [address] [place] Monocytes/100 WBC (Bld) 7.4 % Normal [facility] Comment on above: Order Comment: Speci men Type: BLOOD SPECIMEN Ordering Facility: [facility] Address: [address] [place], [place] [phone] Performed By: #### 5 7021-8 #### [facility] CLIA [id number] [address] [place] [address] [place] Neutrophils (Bld) [#/Vol] 4.75 10*3/uL Normal 1.45-7.50 [facility] Comment on above: Order Comment: Speci men Type: BLOOD SPECIMEN Ordering Facility: [facility] Address: [address] [place], [place] [phone] Performed By: #### 5 7021-8 #### [facility] CLIA [id number] [address] [place] [address] [place] Neutrophils/100 WBC (Bld) 66.1 % Normal [facility] Comment on above: Order Comment: Speci men Type: BLOOD SPECIMEN Ordering Facility: [facility] Address: [address] [place], [place] [id number] Performed By: #### 5 7021-8 #### [facility] CLIA [id number] [address] [place] [address] [place] Nucleated RBC (Bld) [#/Vol] 10*3/uL Normal <0.01 [facility] Comment on above: Order Comment: Speci men Type: BLOOD SPECIMEN Ordering Facility: [facility] Address: [address] [place], [place] [phone] Performed By: #### 5 7021-8 #### [facility] CLIA [id number] [address] [place] [address] [place] Nucleated RBC/100 WBC (Bld) [Ratio] 0.0 /100 WBC Normal [facility] Comment on above: Order Comment: Speci men Type: BLOOD SPECIMEN Ordering Facility: [facility] Address: [address] [place], [place] [phone] Performed By: #### 5 7021-8 #### [facility] CLIA [id number] [address] [place] [address] [place] Platelet mean volume (Bld) [Entitic vol] 9.3 fL Normal 9.0-12.7 [facility] Comment on above: Order Comment: Speci men Type: BLOOD SPECIMEN Ordering Facility: [facility] Address: [address] [place] [address] Performed By: #### 5 7021-8 #### [facility] CLIA [id number] [address] [place] [address] [place] Platelets (Bld) [#/Vol] 221 10*3/uL Normal 150-400 [facility] Comment on above: Order Comment: Speci men Type: BLOOD SPECIMEN Ordering Facility: [facility] Address: [address] [place] [address] Performed By: #### 5 7021-8 #### [facility] CLIA [id number] [address] [place] [address] [place] RBC (Bld) [#/Vol] 3.48 10*6/uL Low 3.90-5.20 [facility] Comment on above: Order Comment: Speci men Type: BLOOD SPECIMEN Ordering Facility: [facility] Address: [address] [place] [address] Performed By: #### 5 7021-8 #### [facility] CLIA [id number] [address] [place] [address] [place] WBC (Bld) [#/Vol] 7.18 10*3/uL Normal 3.70-11.00 [facility] Comment on above: Order Comment: Speci men Type: BLOOD SPECIMEN Ordering Facility: [facility] Address: [address] [place] [address] Performed By: #### 5 7021-8 #### [facility] CLIA [id number] [address] [place] [address] [place] ED NOTEon 09-08-2021 ED NOTE HNO ID: [id number] Author: Ivan Long, RN Service: ? Author Type: Registered Nurse Type: ED Notes Filed: 09/08/2021 3:42 PM Note Text: Pt discharged. NAD noted. Pt awake and alert speaking complete sentences. All belongings with pt. [facility] ED NOTE HNO ID: [id number] Author: Tanvir Brown Service: ? 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 ED PROV NOTEon 09-08-2021 ED PROV NOTE HNO ID: [id number] Author: Mejia Yne MD Service: Emergency Medicine Author Type: Physician Type: ED Provider Notes Filed: 09/08/2021 3:03 PM Note Text: ED Provider Note Patient Name: Gardenia Mujica : 1965 SERVICE DATE: 09/08/21 History Patient presents with: Chest Pain: x4days, seen at [facility] on tuesday Patient complaining of chest pain, she has a history of gastroparesis, she denies any exertional chest pressure heaviness. She had the symptoms intermittently for years and she does follow-up with the doctor states she recently had a gastric emptying study. Denies any dyspnea, cough, fevers or chills. Nothing making this better or worse. PAST MEDICAL HISTORY Diagnosis Date - Acute gastritis without mention of hemorrhage - Aortic regurgitation 10/05/2008 - Esophageal reflux 06/10/2008 - Esophageal reflux - Esophagitis, unspecified - MITRAL VALVE DISORDER 06/10/2008 - Obstructive sleep apnea 03/19/2010 - PTSD (post-traumatic stress disorder) 04/29/2010 PAST SURGICAL HISTORY Procedure Laterality Date - CHOLECYSTECTOMY 1992 [facility] - EGD TRANSORAL BIOPSY SINGLE/MULTIPLE 10/20/10 - GSTR RSTCV W/O BYP OTH/THN [place]-BANDED GSTP 1993 [place] - HEART VALVE REPLACEMENT 05/2009 mechanical valve, Aortic root, [facility] in [place] Dr. Curiel - LIG/TRNSXJ FLP TUBE ABDL/VAG APPR UNI/BI 1991 [facility] - PAST SURGICAL HISTORY OF LIPOSUCTION, TUMMY TUCK - PAST SURGICAL HISTORY OF 2004 ORIF femur, [facility] - TOTAL ABDOMINAL HYSTERECT W/WO RMVL TUBE OVARY 2004 Hysterectomy, LUZ -- ovaries intact, Dr. Luz Garcia in [place] FAMILY HISTORY Problem Relation Age of Onset - Coronary Artery Disease Mother CAD, no [place]; first diagnosed mid-50's? - Coronary Artery Disease Maternal Grandmother [place], CAD - Coronary Artery Disease Maternal Grandfather [place], CAD - None Father UNKNOWN --- - Colon Cancer Other none - Diabetes Other none - Breast Cancer Other none - other (ADD [Other]) Son Social History Tobacco Use - Smoking status: Never Smoker - Smokeless tobacco: Never Used Substance and Sexual Activity - Alcohol use: No - Drug use: No - Sexual activity: Yes Partners: Male control/protection: Surgical Comment: LUZ ALLERGIES Allergen Reactions - Pravachol [Pravasta* - Temazepam Other: See Comments Joint and muscle pain and stiffness Review of Systems Constitutional: Negative. HENT: Negative. Eyes: Negative. Respiratory: Negative. Cardiovascular: Positive for chest pain. Gastrointestinal: Negative. Endocrine: Negative. Genitourinary: Negative. Musculoskeletal: Negative. Skin: Negative. Neurological: Negative. Hematological: Negative. Psychiatric/Behavioral: Negative. Physical Exam Vitals [09/08/21 1158] BP Pulse Temp Temp src Resp SpO2 Weight Height 182/70 70 37 ?C (98.6 ?F) Oral 16 98 % 81.6 kg (180 lb) 1.63 m (5' 4.17 ) Physical Exam Vitals and nursing note reviewed. Constitutional: General: She is not in acute distress. Appearance: She is well-developed. She is not ill-appearing, toxic-appearing or diaphoretic. HENT: Head: Atraumatic. Eyes: Extraocular Movements: Extraocular movements intact. Cardiovascular: Rate and Rhythm: Normal rate. Pulmonary: Effort: Pulmonary effort is normal. Abdominal: Palpations: Abdomen is soft. Musculoskeletal: General: Normal range of motion. Cervical back: Normal range of motion. Skin: General: Skin is warm and dry. Neurological: General: No focal deficit present. Mental Status: She is alert. Psychiatric: Mood and Affect: Mood normal. Diagnostic Testing ED Labs Ordered and Reviewed BASIC METABOLIC PNL - Abnormal; Notable for the following components: Result Value Ref Range Anion Gap 3 (*) 5 - 16 mmol/L All other components within normal limits CBC + DIFF - Abnormal; Notable for the following components: RBC 3.48 (*) 3.90 - 5.20 m/uL Hemoglobin 10.7 (*) 11.5 - 15.5 g/dL Hematocrit 30.7 (*) 36.0 - 46.0 % All other components within normal limits Narrative: This is an appended report. These results have been appended to a previously verified report. TROPONIN I HIGH SENSITIVITY - Normal Procedures ED Course / Clinical Impression Clinical Impressions as of 09/08/21 1502 Gastroparesis MDM / Disposition / Plan Blood work, troponin, EKG are all unremarkable. Patient's symptoms are consistent with gastroparesis/dyspepsia flareup. She received GI medication and feels better. Nothing to suggest coronary syndrome or pulmonary etiology of her symptoms. Impression: 1 acute dyspepsia 2. History of gastroparesis Anemia, coronary syndrome, gastroparesis, renal failure considered as differential diagnoses. After evaluation differential diagnoses were considered less likely because of the following reasons Blood work and testing. Additional Tests or Interventions: ECG (more content not included)... Normal [facility] TROPONIN I HIGH SENSITIVITYo n 09-08-2021 Tropinin I.cardiac panel High sensitivity method 16.6 pg/mL Normal 0.0-34.0 [facility] Comment on above: Order Comment: Speci men Type: BLOOD SPECIMEN Ordering Facility: [facility] Address: [address] [place] [phone] Result Comment: This assay uses different antibodies than our current assay, and assays, even by the same waffle machine operator may recognize different regions of the antibody and cannot be used interchangeably. Expect results of this assay to run higher than the previous assay. Performed By: #### H STROP #### [facility] CLIA [id number] [address] [place] [address] [place] LABORATORYOrdered By: Nadia Rider on 09-06-2021 Appearance (U) Clear (09/06/21 7:03 PM) Invalid Interpretation Code Clear AO Auto Urine SS Bacteria LM.HPF (Urine sed) [#/Area] 1 /[HPF] Invalid Interpretation Code AO Auto Urine SS Basophil, Absolute 0.0 103/mcL Invalid Interpretation Code 0.0 - 0.2 10^3/mcL AO Workflow SS Basophils/100 WBC (Bld) 0.2 % Invalid Interpretation Code 0.0 - 2.5 % AO Workflow SS Bilirubin Ql (U) Negative (09/06/21 7:03 PM) Invalid Interpretation Code Negative AO Auto Urine SS Calcium [Mass/Vol] 9.2 mg/dL Invalid Interpretation Code 8.4 - 10.2 mg/dL AO ADM SS Chloride [Moles/Vol] 100 mmol/L Invalid Interpretation Code 98 - 107 mmol/L AO ADM SS CO2 [Moles/Vol] 29 mmol/L Invalid Interpretation Code 22 - 29 mmol/L AO ADM SS Color (U) Yellow (09/06/21 7:03 PM) Invalid Interpretation Code AO Auto Urine SS Creatinine [Mass/Vol] 0.92 mg/dL Invalid Interpretation Code 0.55 - 1.02 mg/dL AO ADM SS Electrolyte Balance 7.0 mEq/L Invalid Interpretation Code 4.0 - 15.0 mEq/L AO ADM SS Eosinophil, Absolute 0.1 103/mcL Invalid Interpretation Code 0.0 - 0.4 10^3/mcL AO Workflow SS Eosinophils/100 WBC (Bld) 1.6 % Invalid Interpretation Code 0.0 - 7.0 % AO Workflow SS Erythrocyte distribution width (RBC) [Ratio] 13.1 % Invalid Interpretation Code 11.5 - 14.5 % AO Workflow SS Fibrin D-dimer DDU (PPP) [Mass/Vol] ng/mL D-DU Invalid Interpretation Code 0 - 230 ng/mL D-DU AO Coag SS Glucose [Mass/Vol] 110 mg/dL Invalid Interpretation Code 70 - 105 mg/dL AO ADM SS Glucose Test strip (U) [Mass/Vol] Negative Invalid Interpretation Code Negativemg /dL AO Auto Urine SS Hematocrit (Bld) [Volume fraction] 35.6 % Invalid Interpretation Code 37.0 - 47.0 % AO Workflow SS Hemoglobin (Bld) [Mass/Vol] 12.4 G/dL Invalid Interpretation Code 12.0 - 16.0 G/dL AO Workflow SS Hemoglobin Auto test strip (U) [Mass/Vol] Moderate *ABN* (09/06/21 7:03 PM) Invalid Interpretation Code Negative AO Auto Urine SS INR Coag (PPP) [Relative time] 2.1 {INR} Invalid Interpretation Code 0.9 - 1.2 ratio AO Coag SS Ketones Ql (U) Negative Invalid Interpretation Code Negativemg /dL AO Auto Urine SS Lymphocyte, Absolute 1.2 103/mcL Invalid Interpretation Code 0.8 - 3.9 10^3/mcL AO Workflow SS Lymphocytes/100 WBC (Bld) 13.6 % Invalid Interpretation Code 10.0 - 50.0 % AO Workflow SS MCH (RBC) [Entitic mass] 30.6 pg Invalid Interpretation Code 27.0 - 31.2 pg AO Workflow SS MCHC 34.9 G/dL Invalid Interpretation Code 33.0 - 37.0 G/dL AO Workflow SS MCV (RBC) [Entitic vol] 87.7 fL Invalid Interpretation Code 80.0 - 94.0 fL AO Workflow SS Monocyte distribution width Auto (Bld) [Entitic vol] 15.72 Invalid Interpretation Code 0.00 - 20.00 AO Workflow SS Comment on above: Result Comment: For ED adult patients suspected of sepsis, MDW<=20.0 does not rule out sepsis or risk of sepsis Monocyte, Absolute 0.5 103/mcL Invalid Interpretation Code 0.2 - 1.0 10^3/mcL AO Workflow SS Monocytes/100 WBC (Bld) 5.7 % Invalid Interpretation Code 1.7 - 13.0 % AO Workflow SS Natriuretic peptide.B prohormone N-Terminal [Mass/Vol] 258 pg/mL Invalid Interpretation Code 0 - 125 pg/mL AO ADM SS Neutrophil, Absolute 6.7 103/mcL Invalid Interpretation Code 2.9 - 6.2 10^3/mcL AO Workflow SS Neutrophils/100 WBC (Bld) 78.9 % Invalid Interpretation Code 37.0 - 80.0 % AO Workflow SS Platelet mean volume (Bld) [Entitic vol] 7.3 fL Invalid Interpretation Code 7.4 - 10.4 fL AO Workflow SS Platelets (Bld) [#/Vol] 269 103/mcL Invalid Interpretation Code 130 - 400 10^3/mcL AO Workflow SS Potassium [Moles/Vol] 4.0 mmol/L Invalid Interpretation Code 3.5 - 5.1 mmol/L AO ADM SS PT Coag (PPP) [Time] 24.1 s Invalid Interpretation Code 9.7 - 14.3 seconds AO Coag SS RBC (Bld) [#/Vol] 4.06 106/mcL Invalid Interpretation Code 4.20 - 5.40 10^6/mcL AO Workflow SS Sodium [Moles/Vol] 136 mmol/L Invalid Interpretation Code 136 - 145 mmol/L AO ADM SS Troponin I.cardiac DL <= 0.01 ng/mL [Mass/Vol] 15.0 ng/L Invalid Interpretation Code 0.0 - 51.4 ng/L AO ADM SS UA Leuk Est Negative (09/06/21 7:03 PM) Invalid Interpretation Code Negative AO Auto Urine SS UA Mucous 4+ /HPF Invalid Interpretation Code AO Auto Urine SS UA Nitrite Negative (09/06/21 7:03 PM) Invalid Interpretation Code Negative AO Auto Urine SS UA pH 5.0 (09/06/21 7:03 PM) Invalid Interpretation Code 5.0 - 8.0 AO Auto Urine SS UA Protein Trace mg/dL Invalid Interpretation Code Negativemg /dL AO Auto Urine SS UA RBC 5-10 /HPF Invalid Interpretation Code None Seen/HPF AO Auto Urine SS UA Spec Grav >=1.030 *ABN* (09/06/21 7:03 PM) Invalid Interpretation Code 1.015-1.02 5 AO Auto Urine SS UA Specimen Type Clean Catch (09/06/21 7:03 PM) Invalid Interpretation Code AO Auto Urine SS UA Squam Epithelial 0-5 /HPF Invalid Interpretation Code None Seen/HPF AO Auto Urine SS UA Urobilinogen 0.2 E.U./dL Invalid Interpretation Code 0.2-1.0E.U ./dL AO Auto Urine SS Urea nitrogen [Mass/Vol] 22 mg/dL Invalid Interpretation Code 7 - 18 mg/dL AO ADM SS Urea nitrogen/Creatinin e [Mass ratio] 24 ratio Invalid Interpretation Code 7 - 27 ratio AO ADM SS WBC 8.5 103/mcL Invalid Interpretation Code 4.6 - 10.8 10^3/mcL AO Workflow SS WBC LM.HPF (Urine sed) [#/Area] 0-5 /HPF Invalid Interpretation Code None Seen/HPF AO Auto Urine SS LABORATORYOrdered By: SYSTEM SYSTEM on 09-06-2021 GFR 77 ml/min/1.73sqm Invalid Interpretation Code AO Chemistry S GFR Non- 63 ml/min/1.73sqm Invalid Interpretation Code AO Chemistry S LABORATORYOrdered By: Nadia Rider on 06-18-2021 INR Coag (PPP) [Relative time] 2.2 {INR} Invalid Interpretation Code 0.9 - 1.2 ratio AO Coag SS PT Coag (PPP) [Time] 25.5 s Invalid Interpretation Code 9.7 - 14.3 seconds AO Coag SS LABORATORYOrdered By: Mckenna Faulkner on 05-19-2021 INR Coag (PPP) [Relative time] 2.7 {INR} Invalid Interpretation Code 0.9 - 1.2 ratio AO Coag SS PT Coag (PPP) [Time] 31.3 s Invalid Interpretation Code 9.7 - 14.3 seconds AO Coag SS LABORATORYOrdered By: Mckenna Kerr on 04-15-2021 INR Coag (PPP) [Relative time] 3.3 {INR} Invalid Interpretation Code 0.9 - 1.2 ratio AO Coag SS PT Coag (PPP) [Time] 38.3 s Invalid Interpretation Code 9.7 - 14.3 seconds AO Coag SS [facility] DATE OF SERVICE: REASON FOR VISIT: Right jaw pain. HISTORY OF PRESENT ILLNESS: This is a 55-year-old female presenting with right jaw pain for the last 4 days. Denies any tooth problem. The patient stated that she just saw a dentist not too long ago. She did not have any tooth problem. No fever or chills. It hurts when she bites something hard. She points toward the area in front of her right ear for this pain. Eating and drinking well. Denied any ear pain. No cough, congestion. The patient told me toward the end of the visit that she had a cat bite on right forearm about a week ago, but the wound has healed. REVIEW OF OTHER SYSTEMS: Normal. ALLERGIES: NKA. MEDICATIONS: 1. Warfarin. 2. Estradiol. PHYSICAL EXAMINATION: She is awake, alert, not in distress. No dyspnea. Temperature 99.0, blood pressure 162/89, pulse 81, respirations 16, pulse oximetry 98% on room air, pain score 7/10. HEENT examination reveals she has tenderness in [facility] PATIENT NAME[facility] MEDICAL REC #: [id number] [place] [address] [facility] REPORT STATCARE PHYSICIAN the right preauricular area with swelling of the soft tissue. No obvious lymphadenopathy was seen. Her ear exam was normal. There was no tenderness of the mandible. TMJ was also nontender. Motion of the lower jaw against resistance is normal and not painful. No lesion seen in the oral cavity. No cervical lymphadenopathy. Chest clear to auscultate. Heart regular rate and rhythm. Neurologically normal. Clinically this could be a preauricular lymph node inflammation. I looked at her cat bite area on the distal forearm, which is 2 puncture wounds which have now healed, with dry scab. There is no sign of inflammation or any infection. When the patient told me about the cat bite, I reviewed all the systems again. Other than this jaw pain, she does not have any other symptoms and can drink fluid normally. ASSESSMENT: Right preauricular lymphadenitis. PLAN: Clinical findings were discussed with the patient in detail. I explained to her that pain is most likely preauricular lymph node inflammation. I gave her Augmentin 875 mg twice a day for 7 days with no refills. Although I do not think this is related to cat bite, I explained to her that a stray cat sometimes can carry the rabies virus as well, so if there is any abnormal symptom, she [facility] PATIENT NAME: GARDENIA MUJICA Tarah Cabral MEDICAL REC #: [id number] [place] [address] [facility] REPORT STATCARE PHYSICIAN must go to the hospital for further evaluation and care. The patient understands and agrees. Her questions were answered to her satisfaction. She was discharged in stable condition. Eric Huff MD [id number] [facility] File#: [id number] END OF DOCUMENT / CHANGE LOG FOLLOWS Last Edited By Elec. Signed By Eric Huff MD #[id number] Eric Huff MD #[id number] on 01/15/2021 08:52 ET on 01/15/2021 08:52 ET Revision Number - 2 Verified/Reviewed by 01/15/21 0852 RADAMES [facility] PATIENT NAME: GARDENIA MUJICA [address] [place], [place] [address]Sol Cabral MEDICAL REC #: [id number] [place] [address] [facility] REPORT [facility]CARE PHYSICIAN Normal [facility] CDLECHOon 07-07-2020 [facility] [id number] CLI ECHOCARD ECHOCARDIOGRAM [address] [place] [address] Noninvasive Cardiac Diagnostics Adult Echocardiogram Report Name: MUJICAGISELALEIGHTONMono Carrasco Study Date: 07/07/2020 08:14 AMBP: 121/74 mmHg Patient Location: [facility]: : 1965 Gender: Female Height: 64 in Age: 55 yrs Ethnicity: [place] Weight: 170 lb Accession No. [id number] No. [id number] Reason For Study: CHRONIC ISCHEMIC HEART DISEASE BSA: 1.8 m2 History: Chest Pain,Dyspnea or SOB,Hypertension,Valve surgery or replacement,Palpitations,Light- headed,Syncope Interpretation Summary Definity used in this study The left ventricle is mildly dilated. The left ventricle is hyperdynamic. Ejection Fraction = 75%. There is moderate concentric left ventricular hypertrophy. There is a bioprosthetic aortic valve. The prosthetic aortic valve appears to open well. The prosthetic aortic valve is well-seated. There is mild tricuspid regurgitation. Mild pulmonic valvular regurgitation. Left Ventricle: The left ventricle is mildly dilated. There is moderate concentric left ventricular hypertrophy. The left ventricle is hyperdynamic. Ejection Fraction = 75%. No diastolic dysfunction parameters to suggest elevated left atrial pressure or congestive heart failure. The left ventricular wall motion is normal. There is no thrombus. [facility] PATIENT NAME: GARDENIA MUJICA [address] Cabral MEDICAL REC #: [id number] [place] [address] ADMIT DATE: DISCHARGE DATE: ATTENDING PHY: Sridhar Velazquez MD ECHOCARDIOGRAM REPORT Left Atrium/Atrial Septum: The left atrium is moderately dilated. The interatrial septum is intact with no evidence for an atrial septal defect. Right Atrium: Right atrial size is normal. Right Ventricle: The right ventricle is normal in size and function. Aortic Valve: There is a bioprosthetic aortic valve. The prosthetic aortic valve appears to open well. The prosthetic aortic valve is well-seated. Mitral Valve: The mitral valve is normal in structure and function. Tricuspid Valve: The tricuspid valve is normal in structure and function. There is mild tricuspid regurgitation. Right ventricular systolic pressure is normal. Pulmonic Valve: The pulmonic valve is normal in structure and function. Mild pulmonic valvular regurgitation. Arteries: The aortic root is normal size. Pericardium/Pleura: There is no pericardial effusion. MMode/2D Measurements and Calculations IVSd: 0.91 cm LVIDd: IVS/LVPW: EDV(cubed): IVSs: 1.7 cm 5.6 cm 1.0 173.3 ml LVIDs: FS: 60.2 % ESV(cubed): 2.2 cm EF(Teich): 11.0 ml LVPWd: 89.1 % EF(cubed): 0.91 cm 93.7 % LVPWs: % IVS thick: 1.8 cm 85.0 % % LVPW thick: 100.0 % LV mass(C)d: SV(Teich): MV E-F Ao root [facility] PATIENT NAME: GARDENIA MUJICA [address] [place]ral MEDICAL REC #: [id number] [place] [address] ADMIT DATE: DISCHARGE DATE: ATTENDING PHY: Sridhar Velazquez MD ECHOCARDIOGRAM REPORT 192.0 grams 135.5 ml slope: diam: 2.7 cm LV mass(C)dI: SI(Teich): 9.2 cm/sec Ao root area: 105.2 grams/m2 74.2 ml/m2 LV mass(C)s: SV(cubed): 5.8 cm2 146.5 grams 162.3 ml ACS: 1.7 cm LV mass(C)sI: SI(cubed): LA 80.2 grams/m2 88.9 ml/m2 dimension: 4.2 cm LA/Ao: 1.5 EF(MOD-sp4):EDV(MOD- SI(MOD-sp4): LVOT diam: 86.3 % sp2): 34.8 ml/m2 2.2 cm 67.0 ml ESV(MOD- sp2): 8.6 ml EF(MOD-sp2): 87.1 % SV(MOD-sp2): 58.4 ml SI(MOD-sp2): 32.0 ml/m2 Time Measurements Aortic R-R: 0.94 sec Aortic HR: 63.7 BPM Doppler Measurements and Calculations MV E max araceli: MV max PG: MV dec Ao V2 max: 79.8 cm/sec 4.6 mmHg time: 227.4 cm/sec MV A max araceli: MV mean P.26 sec Ao max P.6 cm/sec 1.9 mmHg 20.7 mmHg MV E/A: 0.94 MVA(VTI): Ao max PG (full): 3.1 cm2 16.3 mmHg Ao mean P.9 mmHg Ao mean PG (full): 8.3 mmHg Ao V2 VTI: 48.5 cm EZEQUIEL(I,A): 2.1 cm2 EZEQUIEL(I,D): 2.1 cm2 EZEQUIEL(V,A): [facility] PATIENT NAME: BRET MUJICAMono Carrasco [address] [place] MEDICAL REC #: [id number] [place] [address] ADMIT DATE: DISCHARGE DATE: ATTENDING PHY: Sridhar Velazquez MD ECHOCARDIOGRAM REPORT 1.8 cm2 EZEQUIEL(V,D): 1.8 cm2 LV V1 max: CO(Ao): PA max PG: PI end-d araceli: 105.0 cm/sec 17.9 l/min 3.8 mmHg 75.9 cm/sec LV V1 mean: CI(Ao): 75.2 cm/sec 9.8 l/min/m2 LV V1 VTI: SV(Ao): 26.2 cm 281.6 ml SI(Ao): 154.2 ml/m2 CO(LVOT): 6.5 l/min CI(LVOT): 3.5 l/min/m2 SI(LVOT): 55.7 ml/m2 TR max araceli: RAP systole: Lateral Medial E/E': 204.3 cm/sec 10 (more content not included)... Normal [facility] ECHOCARDIOGRAM REPORT Normal [facility] PTon 06-12-2018 INR Coag RelTime (PPP) 6.4 {INR} Critically abnormal 0.9-1.1 [facility] Comment on above: Result Comment: Crit ical result successfully called to and read back byNATALIYA Morillo_ 06/11/2018 22:22:29 EDTand reported byPJB_. INR Recommended Therapeutic ranges: Prophylaxis/treatment of DVT and PE..........2.0-3.0 Prevention of systemic embolism.................2.0-3.0 Mechanical prosthetic values........................2.5-3.5 CRITICAL VALUE.........................................> 4.0 NOTE: New methodology started 02/27/2018 Performed By: #### 2 [id number] #### [facility] [place] [id number] Prothrombin time (PT) Coag time (PPP) 77.5 second(s) High 9.7-12.7 [facility] Comment on above: Result Comment: NOTE : New reference range established on 02/27/2018 due to change in methodology. Performed By: #### 2 [id number] #### PAUL [facility] [place] [address] XR Chest AP Portableon 06-12 XR Chest AP Portable Exam Date/Time: 06/11/2018 22:16 EDT Reason for Exam: Chest pain Report STUDY: XR Chest AP Portable; 06/11/2018 10:16 pm INDICATION: Chest pain. COMPARISON: None. ACCESSION NUMBER(S): [id number] ORDERING CLINICIAN: Chance [place] FINDINGS: Sternotomy wires are present. CARDIOMEDIASTINAL SILHOUETTE: Cardiomediastinal silhouette is normal in size and configuration. Prosthetic aortic valve. LUNGS: No pulmonary consolidation, pleural effusion or pneumothorax. ABDOMEN: No remarkable upper abdominal findings. BONES: No acute osseous abnormality. IMPRESSION: No acute cardiopulmonary process. FINAL REPORT Dictated: 06/12/2018 0:09 am Alayna Jarrell MD Signed (Electronic Signature): 06/12/2018 0:09 am Signed by: Alayna Jarrell MD Technologist: [facility] Normal [facility] Auto Diffon 06-11-2018 Basophils #/vol (Bld) 0.0 E3/mcL Normal 0.0-0.2 [facility] Comment on above: Order Comment: Order Added by Discern Expert. Performed By: #### 2 [id number] #### PAUL [facility] [address] [place] [address] Basophils/100 WBC (Bld) 0.2 % Normal 0.0-2.0 [facility] Comment on above: Order Comment: Order Added by Discern Expert. Performed By: #### 2 [id number] #### PAUL [facility] [address] [place] [address] Eos Absolute 0.3 E3/mcL Normal 0.0-0.7 [facility] Comment on above: Order Comment: Order Added by Discern Expert. Performed By: #### 2 [id number] #### PAUL [facility] [address] [place] [address] Eosinophils/100 WBC (Bld) 2.3 % Normal 0.0-11.0 [facility] Comment on above: Order Comment: Order Added by Discern Expert. Performed By: #### 2 [id number] #### PAUL [facility] [address] [place] [address] Lymphocytes #/vol (Bld) 2.2 E3/mcL Normal 1.2-3.4 [facility] Comment on above: Order Comment: Order Added by Discern Expert. Performed By: #### 2 [id number] #### PAUL [facility] [address] [place] [address] Lymphocytes/100 WBC (Bld) 19.3 % Low 20.0-55.0 [facility] Comment on above: Order Comment: Order Added by Discern Expert. Performed By: #### 2 [id number] #### PAUL [facility] [address] [place] [address] [place] Absolute 0.8 E3/mcL High 0.0-0.7 [facility] Comment on above: Order Comment: Order Added by Discern Expert. Performed By: #### 2 [id number] #### PAUL [facility] [address] [place] [id number] Monocytes/100 WBC (Bld) 7.3 % Normal 0.0-10.0 [facility] Comment on above: Order Comment: Order Added by Discern Expert. Performed By: #### 2 [id number] #### PAUL [facility] [address] [place] [id number] Neutro Absolute 8.1 E3/mcL High 1.4-6.5 [facility] Comment on above: Order Comment: Order Added by Discern Expert. Performed By: #### 2 [id number] #### PAUL [facility] [place] [address] Neutro Auto 70.9 % Normal 37.0-75.0 [facility] Comment on above: Order Comment: Order Added by Discern Expert. Performed By: #### 2 [id number] #### PAUL [facility] [place] [id number] BNP.on 06-11-2018 Natriuretic peptide B mass conc (Bld) 94 pg/mL Normal <=100 [facility] Comment on above: Result Comment: Noti ce: Effective 07/28/2016 the methodology for BNP testing has changed. BNP values less than or equal to 100 pg/mL is considered normal for patients without CHF.The decision threshold was determined by the 95% confidence limit of BNP concentration in the non-CHF population age 55 and older.It is recommended that a new baseline value be established using the new method if monitoring patient's BNP level. Performed By: #### C [id number] #### PAUL [employer] [address] [place] [id number] CBC w/ Auto Diffon 9 Erythrocyte distribution width Ratio (RBC) 13.7 % Normal 11.5-14.5 [facility] Comment on above: Performed By: #### 2 [id number] #### PAUL [facility] [place] [id number] Hematocrit Volume Fraction (Bld) 36.2 % Normal 36.0-48.0 [facility] Comment on above: Performed By: #### 2 [id number] #### PAUL [address] [address] [place] [id number] Hemoglobin mass conc (Bld) 12.3 g/dL Normal 12.0-16.0 [facility] Comment on above: Performed By: #### 2 [id number] #### PAUL [facility] [address] [place] [id number] MCH Entitic mass (RBC) 30.5 pg Normal 27.0-31.0 [facility] Comment on above: Performed By: #### 2 [id number] #### PAUL [facility] [address] [place] [id number] MCHC mass conc (RBC) 34.1 g/dL Normal 33.0-37.0 [facility] Comment on above: Performed By: #### 2 [id number] #### PAUL [facility] [place] [id number] MCV Entitic volume (RBC) 89.4 fL Normal 78.0-100.0 [facility] Comment on above: Performed By: #### 2 [id number] #### PAUL RodriguezHemo [address] [place] [address] Platelet mean volume Entitic volume (Bld) 7.7 fL Normal 7.4-11.0 [facility] Comment on above: Performed By: #### 2 [id number] #### PAUL [address]H[facility] [address] [place] [address] Platelets #/vol (Bld) 253 E3/mcL Normal 130-400 [facility] Comment on above: Performed By: #### 2 [id number] #### PAUL [facility] [address] [place] [address] RBC #/vol (Bld) 4.05 E6/mcL Normal 3.90-5.40 [facility] Comment on above: Performed By: #### 2 [id number] #### PAUL [facility] [address] [place] [address] WBC #/vol (Bld) 11.5 E3/mcL High 3.6-11.0 [facility] Comment on above: Performed By: #### 2 [id number] #### PAUL RodriguezHemo [address] [place] [address] CMPon 06-11-2018 Albumin mass conc 3.9 g/dL Normal 3.4-5.0 [facility] Comment on above: Performed By: #### 2 [id number] #### PAUL [employer] [address] [place] [address] Albumin/Globulin mass ratio 1.4 {ratio} Normal 1.1-1.9 [facility] Comment on above: Performed By: #### 2 190051 #### PAUL [employer] [address] [place] [address] Alk Phos 91 Int._Unit/L Normal 33-110 [facility] Comment on above: Performed By: #### 2 [id number] #### PAUL [employer] [address] [place] [address] ALT enzyme act/vol 12 Int._Unit/L Normal 7-45 [facility] Comment on above: Performed By: #### 2 [id number] #### PAUL [employer] [address] [place] [id number] Anion gap molar conc 9 mmol/L Low 10-20 [facility] Comment on above: Performed By: #### 2 [id number] #### PAUL [employer] [address] [place] [address] AST enzyme act/vol 16 Int._Unit/L Normal 9-39 [facility] Comment on above: Performed By: #### 2 [id number] #### PAUL [employer] [address] [place] [address] Bili Total 0.40 mg/dL Normal 0.00-1.20 [facility] Comment on above: Performed By: #### 2 [id number] #### PAUL [employer] [address] [place] [address] Calcium mass conc 9.1 mg/dL Normal 8.6-10.3 [facility] Comment on above: Performed By: #### 2 [id number] #### PAUL [employer] [address] [place] [address] Chloride molar conc 105 mmol/L Normal 98-107 [facility] Comment on above: Performed By: #### 2 [id number] #### [employer] [address] [place] [address] CO2 molar conc 29.0 mmol/L Normal 21.0-32.0 [facility] Comment on above: Performed By: #### 2 [id number] #### [employer] [address] [place] [address] Creatinine mass conc 0.7 mg/dL Normal 0.5-1.1 [facility] Comment on above: Performed By: #### 2 [id number] #### [employer] [address] [place] [address] Globulin mass conc (S) 3.0 g/dL Normal 2.0-4.0 [facility] Comment on above: Performed By: #### 2 [id number] #### [employer] [address] [place] [address] Glucose mass conc 85 mg/dL Normal 70-99 [facility] Comment on above: Performed By: #### 2 [id number] #### [employer] [address] [place] [address] Potassium molar conc 4.0 mmol/L Normal 3.5-5.3 [facility] Comment on above: Performed By: #### 2 [id number] #### [employer] [address] [place] [address] Protein mass conc 6.6 g/dL Normal 6.4-8.2 [facility] Comment on above: Performed By: #### 2 [id number] #### [employer] [employer] [address] [place] [address] Sodium molar conc 139 mmol/L Normal 136-145 [facility] Comment on above: Performed By: #### 2 [id number] #### [employer] [address] [place] [address] Urea nitrogen mass conc 17 mg/dL Normal 6-23 [facility] Comment on above: Performed By: #### 2 [id number] #### [employer] [address] [place] [address] Urea nitrogen/Creatinin e mass ratio 24.3 ratio Normal 5.4-30.0 [facility] Comment on above: Performed By: #### 2 [id number] #### [employer] [address] [place] [address] Troponin-Ion 06-11-2018 Troponin I.cardiac mass conc 0.01 ng/mL Normal 0.00-0.03 [facility] Comment on above: Performed By: #### 2 [id number] #### PAUL [employer] [address] [place] [address] eGFRon 06-11-2018 GFR/1.73 sq M predicted among non-blacks MDRD vol rate/area (S/P/Bld) mL/min/{1.73_m2} Normal [facility] Comment on above: Order Comment: Order added by Discern Expert. Performed By: #### 1 [id number] #### [employer]UL [employer] [address] [place] [address] Lab Report: Basic Metabolic Profile (BMP)on 08-25-2016 Anion gap 8 mmol/L Invalid Interpretation Code 5-15 [employer] Work Phone: [phone] BUN/Creatinine Ratio 18.9 RATIO Invalid Interpretation Code 10-20 [employer] Work Phone: [phone] Calcium 9.9 mg/dL Invalid Interpretation Code 8.5-10.1 [employer] Work Phone: [phone] Chloride 102 mmol/L Invalid Interpretation Code 98-107 [employer] Work Phone: [phone] CO2 30.0 mmol/L Invalid Interpretation Code 21.0-32.0 [employer] Work Phone: [phone] Creatinine 0.90 mg/dL Invalid Interpretation Code 0.55-1.02 [employer] Work Phone: [phone] eGFR (non-black) 85 mL/min/{1.73_m2} Invalid Interpretation Code >60 [employer] Work Phone: [phone] eGFR (non-black) 70 mL/min/{1.73_m2} Invalid Interpretation Code >60 [employer] Work Phone: [phone] Glucose 112 mg/dL High 70-110 [employer] Work Phone: [phone] Potassium 3.9 mmol/L Invalid Interpretation Code 3.5-5.1 [facility] Work Phone: [phone] Sodium 140 mmol/L Invalid Interpretation Code 136-145 [facility] Work Phone: [phone] Urea nitrogen 17 mg/dL Invalid Interpretation Code 7-18 [facility] Work Phone: [phone] Office Visiton 07-02-2016 Documentation of current medications (procedure) Done Invalid Interpretation Code [facility] Work Phone: [phone] Fall risk assessment No Invalid Interpretation Code [facility] Work Phone: [phone] Tobacco smoking status NHIS Never smoker [facility] Work Phone: [phone] Tobacco use CPHS Never smoker Invalid Interpretation Code [facility] Work Phone: [phone] Clinical 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 Calcium [Mass/Vol] 9.5 mg/dL [facility] Work Phone: [phone] Chloride [Moles/Vol] 107 mmol/L [facility] Work Phone: [phone] CO2 (BldV) [Partial pressure] 30.0 mmol/L [facility] Work Phone: [phone] Creatinine [Mass/Vol] 0.86 mg/dL [employer] Work Phone: [phone] Glucose [Mass/Vol] 90 mg/dL [facility] Work Phone: [phone] Hematocrit (Bld) [Volume fraction] 41.0 % [facility] Work Phone: [phone] Hematocrit (HCT) 41.0 % Invalid Interpretation Code [facility] Work Phone: [phone] Hemoglobin (Bld) [Mass/Vol] 14.2 g/dL Invalid Interpretation Code [facility] Work Phone: [phone] Platelets 244 10*3/mm3 Invalid Interpretation Code [facility] Work Phone: [phone] Platelets (Bld) [#/Vol] 244 10*3/mm3 [facility] Work Phone: [phone] Potassium [Moles/Vol] 3.9 mmol/L [facility] Work Phone: [phone] Sodium [Moles/Vol] 143 mmol/L [employer] [facility] [employer] Work Phone: [phone] Urea nitrogen [Mass/Vol] 13 mg/dL [facility] [employer] Work Phone: [phone] Urea nitrogen/Creatinin e [Mass ratio] 15.1 mg/mg [employer] Work Phone: [phone] WBC (Bld) [#/Vol] 7.5 10*3/uL [facility] [employer] Work Phone: [phone] WBC (Leukocytes) 7.5 10*3/uL Invalid Interpretation Code [employer] Work Phone: [phone] Lab Report: Prothrombin Time w/INRon 09-12-2015 PT Coag (PPP) [Time] 26.4 s High 11.7-14.9 [employer] Work Phone: [phone] Office Visit: Warfarin Calco n 09-12-2015 INR Coag (Bld) [Relative time] Hospital lab Invalid Interpretation Code [employer] Work Phone: [phone] INR Coag (PPP) [Relative time] 2.5 {INR} [employer] Work Phone: [phone] INR in blood by coagulation 2.5 {INR} Invalid Interpretation Code [employer] Work Phone: [phone] INR in blood by coagulation 2.5 to 3.5 Invalid Interpretation Code [employer] Work Phone: [phone] international normalized ratio (INR) range 2.5 to 3.5 [employer] Work Phone: [phone] PT Coag (PPP) [Time] 26.4 s Invalid Interpretation Code [employer] Work Phone: [phone] Office Visiton 03-03-2015 Dietary management education, guidance, and counseling (procedure) yes Invalid Interpretation Code [employer] Work Phone: [phone] General cardiovascular disease 10Y risk [#] [place].D'Agost haley 7 % Invalid Interpretation Code [employer] Work Phone: [phone] Clinical 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on Left ventricular Ejection fraction 65 % Invalid Interpretation Code [employer] Work Phone: [phone] Lab Report: Prothrombin Time Fingerstickon 08-09-2014 PT Coag (PPP) [Time] 31.8 s High 11.9-14.4 [employer] Work Phone: [phone] Clinical 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: 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 07-10-2014 Albumin [Mass/Vol] 3.4 g/dL Invalid Interpretation Code [employer] Work Phone: [phone] Alkaline phosphatase (ALP) 90 U/L Invalid Interpretation Code [employer] Work Phone: [phone] ALP (Bld) [Catalytic activity/Vol] 90 U/L [employer] Work Phone: [phone] ALT [Catalytic activity/Vol] 33 U/L Invalid Interpretation Code [employer] Work Phone: [phone] Anion gap [Moles/Vol] 7 mmol/L [employer] Work Phone: [phone] AST [Catalytic activity/Vol] 25 U/L Invalid Interpretation Code [employer] Work Phone: [phone] Bilirubin [Mass/Vol] 0.40 mg/dL Invalid Interpretation Code [employer] Work Phone: [phone] Cholesterol [Mass/Vol] 156 mg/dL Invalid Interpretation Code [employer] Work Phone: [phone] Cholesterol in HDL [Mass/Vol] 31 mg/dL Low [employer] Work Phone: [phone] Cholesterol in LDL [Mass/Vol] 67 mg/dL Invalid Interpretation Code [employer] Work Phone: [phone] Lipoprotein.pre-be ta [Mass/Vol] 58 mg/dL High [employer] Work Phone: [phone] Protein [Mass/Vol] 6.7 g/dL Invalid Interpretation Code [employer] Work Phone: [phone] Triglyceride [Mass/Vol] 290 mg/dL High [employer] Work Phone: [phone] Office Visiton 06-13-2014 cardiac risk group B Invalid Interpretation Code [employer] Work Phone: [phone] Replaced Document: [employer] E CG Observationson 06-13-2014 EKG QRS axis 16 deg [employer] Work Phone: [phone] electrocardiogram interpretation Sinus Rhythm WITHIN NORMAL LIMITS Invalid Interpretation Code [facility] Work Phone: GE use only - for [employer] import when terms are not otherwise specified 441 ms Invalid Interpretation Code [facility] Work Phone: Interpretation Sinus Rhythm WITHIN NORMAL LIMITS [facility] Work Phone: P [place] 33 deg [facility] Work Phone: P wave axis, electrocardiogram 33 deg Invalid Interpretation Code [facility] Work Phone: W[place] Interval 136 ms [facility] Work Phone: W[place] interval, electrocardiogram 136 ms Invalid Interpretation Code [facility] Work Phone: Pulse (Heart Rate) 64 /min Invalid Interpretation Code [facility] Work Phone: QRS axis, electrocardiogram 16 deg Invalid Interpretation Code [facility] Work Phone: QRS Duration 94 ms [facility] Work Phone: QRS duration, electrocardiogram 94 ms Invalid Interpretation Code [facility] Work Phone: QT Interval new path ms [facility] Work Phone: QT interval, electrocardiogram new path ms Invalid Interpretation Code [facility] [employer] Work Phone: QTc Ervin 441 ms [facility] Work Phone: T [place] 57 deg [facility] Work Phone: T wave axis, electrocardiogram 57 deg Invalid Interpretation Code [facility] Work Phone: Vital Signs Date Time Vital Sign Value Performing Clinician Facility 10-28-2023 14:17-0400 Body mass index (BMI) [Ratio] 31.76 kg/m2 Frederick Colvin APRN.TIRE SETTER Work Phone: [facility] 10-28-2023 14:17-0400 Body weight 83.92 kg Frederick Colvin APRN.CNP Work Phone: [facility] 10-28-2023 13:35-0400 Body height 162.[address] Work Phone: [facility] 10-28-2023 13:35-0400 Body mass index (BMI) [Ratio] 31.76 kg/m2 Sandrine Humphries RD Work Phone: [facility] 10-28-2023 13:35-0400 Body weight 83.[address] Work Phone: [facility] 09-30-2023 10:00-0400 Body height 162.6 cm Jennifer Gromovsky DEDENTER.TIRE SETTER Work Phone: [facility] 09-30-2023 10:00-0400 Body mass index (BMI) [Ratio] 31.41 kg/m2 Jennifer Gromovsky DEDENTER.TIRE SETTER Work Phone: [facility] 09-30-2023 10:00-0400 Body weight 83.01 kg Jennifer Gromovsky DEDENTER.TIRE SETTER Work Phone: [facility] 07-28-2023 07:52-0400 Body height 162.6 cm Jayashree Hernandez MD Work Phone: [facility] 07-28-2023 07:52-0400 Body mass index (BMI) [Ratio] 31.96 kg/m2 Jayashree Hernandez MD Work Phone: [facility] 07-28-2023 07:52-0400 Body weight 84.46 kg Jayashree Hernandez MD Work Phone: [facility] 07-28-2023 07:52-0400 Diastolic blood pressure 72 mm[Hg] Jayashree Hernandez MD Work Phone: [facility] 07-28-2023 07:52-0400 Heart rate 68 /min Jayashree Hernandez MD Work Phone: [facility] 07-28-2023 07:52-0400 Systolic blood pressure 126 mm[Hg] Jayashree Hernandez MD Work Phone: [facility] 05-27-2023 09:09-0400 Body height 162.6 cm Jayashree Hernandez MD Work Phone: [facility] 05-27-2023 09:09-0400 Body weight 87.64 kg Jayashree Hernandez MD Work Phone: [facility] 05-27-2023 09:09-0400 Diastolic blood pressure 80 mm[Hg] Jayashree Hernandez MD Work Phone: [facility] 05-27-2023 09:09-0400 Heart rate 70 /min Jayashree Hernandez MD Work Phone: [facility] 05-27-2023 09:09-0400 Systolic blood pressure 134 mm[Hg] Jayashree Hernandez MD Work Phone: [facility] 04-01-2023 09:26-0500 Body height 162.6 cm CARMEN MARES MD [facility] 04-01-2023 09:26-0500 Body temperature 97.7 [degF] CARMEN MARES MD [facility] 04-01-2023 09:26-0500 Body weight 84.1 kg CARMEN MARES MD [facility] 04-01-2023 09:26-0500 Diastolic Blood Pressure Non-Invasive 85 mm[Hg] CARMEN MARES MD [facility] 04-01-2023 09:26-0500 Heart rate 92 /min CARMEN MARES MD [facility] 04-01-2023 09:26-0500 Respiratory rate 18 /min CARMEN MARES MD [facility] 04-01-2023 09:26-0500 Systolic Blood Pressure Non-Invasive 123 mm[Hg] CARMEN MARES MD [facility] 02-25-2023 11:44-0500 Diastolic Blood Pressure Non-Invasive 65 mm[Hg] DR DESHAWN AVILA MD [facility] 02-25-2023 11:44-0500 Heart rate 65 /min DR DESHAWN AVILA MD [facility] 02-25-2023 11:44-0500 Respiratory rate 18 /min DR DESHAWN AIVLA MD [facility] 02-25-2023 11:44-0500 Systolic Blood Pressure Non-Invasive 127 mm[Hg] DR DESHAWN AVILA MD [facility] 02-25-2023 11:29-0500 Diastolic Blood Pressure Non-Invasive 86 mm[Hg] DR DESHAWN AVILA MD [facility] 02-25-2023 11:29-0500 Heart rate 67 /min DR DESHAWN AVILA MD [facility] 02-25-2023 11:29-0500 Respiratory rate 17 /min DR DESHAWN AVILA MD [facility] 02-25-2023 11:29-0500 Systolic Blood Pressure Non-Invasive 129 mm[Hg] DR DESHAWN AVILA MD [facility] 02-25-2023 11:21-0500 Respiratory rate 22 /min DR DESHAWN AVILA MD [facility] 02-25-2023 11:17-0500 Diastolic Blood Pressure Non-Invasive 62 mm[Hg] DR DESHAWN AVILA MD [facility] 02-25-2023 11:17-0500 Heart rate 81 /min DR DESHAWN AVILA MD [facility] 02-25-2023 11:17-0500 Systolic Blood Pressure Non-Invasive 107 mm[Hg] DR DESHAWN AVILA MD [facility] 02-25-2023 11:11-0500 Body temperature 97.16 [degF] DR DESHAWN AVILA MD [facility] 02-25-2023 11:05-0500 Respiratory Rate - Anes 13 br/min DR DESHAWN AVILA MD [facility] 02-25-2023 11:00-0500 Respiratory Rate - Anes 16 br/min DR DESHAWN AVILA MD [facility] 02-25-2023 10:55-0500 Respiratory Rate - Anes 14 br/min DR DESHAWN AVILA MD [facility] 02-25-2023 07:49-0500 Body height 162.[address] DESHAWN AVILA MD [facility] 02-25-2023 07:49-0500 Body weight [address] DESHAWN AVILA MD [facility] 02-25-2023 07:49-0500 Body weight 31.81 kg/m2 DR DESHAWN AVILA MD [facility] 02-25-2023 07:40-0500 Body height 162.[address] DESHAWN AVILA MD [facility] 02-25-2023 07:40-0500 Body temperature 97.34 [degF] DR DESHAWN AVILA MD [facility] 02-25-2023 07:40-0500 Body weight [address] DESHAWN AVILA MD [facility] 02-25-2023 07:40-0500 Heart rate 82 /min DR DESHAWN AVILA MD [facility] 12-07-2022 10:00-0400 Diastolic Blood Pressure Non-Invasive 79 1 NIDAL CHOUJAA DO [facility] 12-07-2022 10:00-0400 Heart rate 72 /min NIDAL CHOUJAA DO [facility] 12-07-2022 10:00-0400 Systolic Blood Pressure Non-Invasive 146 1 NIDAL CHOUJAA DO [facility] 12-07-2022 09:25-0400 Body temperature 98.78 [degF] NIDAL CHOUJAA DO [facility] 12-07-2022 09:25-0400 Diastolic Blood Pressure Non-Invasive 88 1 NIDAL CHOUJAA DO [facility] 12-07-2022 09:25-0400 Heart rate 79 /min NIDAL CHOUJAA DO [facility] 12-07-2022 09:25-0400 Respiratory rate 16 /min NIDAL CHOUJAA DO [facility] 12-07-2022 09:25-0400 Systolic Blood Pressure Non-Invasive 157 1 NIDAL CHOUJAA DO [facility] 08-12-2022 19:34-0400 Diastolic Blood Pressure Non-Invasive 78 1 SRIDHAR FROMMELT DO [facility] 08-12-2022 19:34-0400 Heart rate 68 /min SRIDHAR FROMMELT DO [facility] 08-12-2022 19:34-0400 Respiratory rate 18 /min SRIDHAR FROMMELT DO [facility] 08-12-2022 19:34-0400 Systolic Blood Pressure Non-Invasive 160 1 SRIDHAR WOLFET DO [facility] 08-12-2022 17:02-0400 Blood Pressure Location SRIDHAR FROMINGET DO [facility] 08-12-2022 17:02-0400 Blood Pressure Method SRIDHAR ESPINOZA D O [facility] 08-12-2022 17:02-0400 Body temperature 98.06 [degF] SRIDHAR WOLFET DO [facility] 08-12-2022 17:02-0400 Diastolic Blood Pressure Non-Invasive 91 1 SRIDHAR WOLFET DO [facility] 08-12-2022 17:02-0400 Heart rate 77 /min SRIDHAR ESPINOZA DO [facility] 08-12-2022 17:02-0400 Respiratory rate 18 /min SRIDHAR ESPINOZA DO [facility] 08-12-2022 17:02-0400 Systolic Blood Pressure Non-Invasive 152 1 SRIDHAR ESPINOZA DO [facility] 06-04-2022 06:53-0400 Body temperature 98.06 [degF] ANDREW SHARONA DO [facility] 06-04-2022 06:53-0400 Diastolic Blood Pressure Non-Invasive 74 1 ANDREW ROLDANERLY DO [facility] 06-04-2022 06:53-0400 Heart rate 64 /min ANDREW SHARONA [facility] 06-04-2022 06:53-0400 Respiratory rate 16 /min ANDREW SHARONA [facility] 06-04-2022 06:53-0400 Systolic Blood Pressure Non-Invasive 132 1 ANDREW TABOR DO [facility] 06-04-2022 02:49-0400 Blood Pressure Cuff Size ANDREW TABOR DO [facility] 06-04-2022 02:49-0400 Blood Pressure Location ANDREW TABOR DO [facility] 06-04-2022 02:49-0400 Blood Pressure Method ANDREW TABOR DO [facility] 06-04-2022 02:49-0400 Body temperature 98.06 [degF] ANDREW TABOR DO [facility] 06-04-2022 02:49-0400 Diastolic Blood Pressure Non-Invasive 81 1 ANDREW TABOR DO [facility] 06-04-2022 02:49-0400 Heart rate 70 /min ANDREW TABOR DO [facility] 06-04-2022 02:49-0400 Mean blood pressure 91 mm[Hg] ANDREW TABOR DO [facility] 06-04-2022 02:49-0400 Respiratory rate 16 /min ANDREW TABOR DO [facility] 06-04-2022 02:49-0400 Systolic Blood Pressure Non-Invasive 116 1 ANDREW TABOR DO [facility] 06-03-2022 23:19-0400 Body temperature 98.42 [degF] ANDREW TABOR DO [facility] 06-03-2022 23:19-0400 Diastolic Blood Pressure Non-Invasive 71 1 ANDREW TABOR DO [facility] 06-03-2022 23:19-0400 Heart rate 69 /min ANDREW SHARONA [facility] 06-03-2022 23:19-0400 Mean blood pressure 86 mm[Hg] ANDREW SHARONA ROSA [address] [place] [address] 06-03-2022 23:19-0400 Respiratory rate 14 /min ANDREW TABOR DO [facility] 06-03-2022 23:19-0400 Systolic Blood Pressure Non-Invasive 129 1 ANDREW TABOR DO [address] [place] [address] 06-03-2022 15:23-0400 Body temperature 98.06 [degF] ANDREW SHARONA DO [address] [place] [address] 06-03-2022 15:23-0400 Mean blood pressure 83 mm[Hg] ANDREW SHARONA ROSA [address] [place] [address] 06-03-2022 14:48-0400 Body temperature 97.88 [degF] ANDREW SHARONA DO [address] [place] [address] 06-03-2022 14:45-0400 Body temperature 97.34 [degF] ANDREW SHARONA DO [address] [place] [address] 06-03-2022 14:45-0400 Respiratory Rate - Anes 14 br/min ANDREW SHARONA ROSA [address] [place] [address] 06-03-2022 14:40-0400 Body temperature 97.34 [degF] ANDREW SHARONA DO [address] [place] [address] 06-03-2022 14:40-0400 Respiratory Rate - Anes 0 br/min ANDREW SHARONA [facility] 06-03-2022 14:35-0400 Body temperature 97.34 [degF] ANDREW SHARONA [facility] 06-03-2022 14:35-0400 Respiratory Rate - Anes 0 br/min ANDREW SHARONAMARCE ROSA [address] [place] [address] 06-03-2022 10:48-0400 Blood Pressure Cuff Size ANDREW TABOR DO [facility] 06-03-2022 10:48-0400 Blood Pressure Location ANDREW TABOR DO [place] [address]-20-2023 10:48-0400 Blood Pressure Method ANDREW TABOR DO [facility] 06-03-2022 10:48-0400 Heart rate 88 /min ANDREW TABOR DO [facility] 06-03-2022 06:39-0400 Blood Pressure Cuff Size ANDREW TABOR DO [facility] 06-03-2022 06:39-0400 Blood Pressure Location ANDREW TABOR DO [facility] 06-03-2022 06:39-0400 Blood Pressure Method ANDREW TABOR DO [facility] 06-03-2022 06:39-0400 Heart rate 81 /min ANDREW TABOR DO [address] [place] [address] 06-02-2022 23:02-0400 Body temperature 98.06 [degF] ANDREW TABOR DO [facility] 06-02-2022 20:05-0400 Body height 162.6 cm ANDREW TABOR DO [address] [place] [address] 06-02-2022 20:05-0400 Body weight 85.4 kg ANDREW TABOR DO [address] [place] [address] 06-02-2022 20:05-0400 Body weight 32.3 kg/m2 ANDREW TABOR DO [facility] 02-11-2022 14:53-0500 Diastolic Blood Pressure Non-Invasive [address] MD [facility] 02-11-2022 14:53-0500 Heart rate 92 /min DR ARMANDO WAY MD [facility] 02-11-2022 14:53-0500 Reason For Taking VItal Signs DR ARMANDO WAY MD [facility] 02-11-2022 14:53-0500 Respiratory rate 18 /min DR ARMANDO [address] MD [facility] 02-11-2022 14:53-0500 Systolic Blood Pressure Non-Invasive [address] MD [facility] 02-11-2022 11:58-0500 Body temperature 98.42 [degF] DR ARMANDO WAY MD [facility] 02-11-2022 11:58-0500 Diastolic Blood Pressure Non-Invasive [address] MD [facility] 02-11-2022 11:58-0500 Heart rate 96 /min DR ARMANDO [address] MD [facility] 02-11-2022 11:58-0500 Respiratory rate 20 /min DR ARMANDO [address] MD [facility] 02-11-2022 11:58-0500 Systolic Blood Pressure Non-Invasive [address] MD [facility] 12-15-2021 02:34-0400 Body temperature 97.88 [degF] DR JENNIFER MINOR DO [facility] 12-15-2021 02:34-0400 Diastolic blood pressure 90 mm[Hg] DR JENNIFER MINOR DO [facility] 12-15-2021 02:34-0400 Heart rate 75 /min DR JENNIFER MINOR DO [facility] 12-15-2021 02:34-0400 Respiratory rate 18 /min DR JENNIFER MINOR DO [facility] 12-15-2021 02:34-0400 Systolic blood pressure 154 mm[Hg] DR JENNIFER MINOR DO [facility] 11-19-2021 18:37-0400 Diastolic blood pressure 84 mm[Hg] GARRETT MALONE MD [facility] 11-19-2021 18:37-0400 Heart rate 74 /min GARRETT MALONE MD [facility] 11-19-2021 18:37-0400 Respiratory rate 18 /min GARRETT MALONE MD [facility] 11-19-2021 18:37-0400 Systolic blood pressure 158 mm[Hg] GARRETT MALONE MD [facility] 11-19-2021 16:46-0400 Body temperature 98.42 [degF] GARRETT MALONE MD [facility] 11-19-2021 16:46-0400 Diastolic blood pressure 94 mm[Hg] GARRETT MALONE MD [facility] 11-19-2021 16:46-0400 Heart rate 76 /min GARRETT MALONE MD [facility] 11-19-2021 16:46-0400 Respiratory rate 20 /min GARRETT MALONE MD [facility] 11-19-2021 16:46-0400 Systolic blood pressure 170 mm[Hg] GARRETT MALONE MD [facility] 09-06-2021 20:24-0400 Diastolic blood pressure 81 mm[Hg] CHANCE BEATTY DO [facility] 09-06-2021 20:24-0400 Heart rate 68 /min CHANCE BEATTY DO [facility] 09-06-2021 20:24-0400 Mean blood pressure 100 mm[Hg] CHANCE DURESKA DO [facility] 09-06-2021 20:24-0400 Respiratory rate 12 /min CHANCE DURESKA DO [facility] 09-06-2021 20:24-0400 Systolic blood pressure 137 mm[Hg] CHANCE DURESKA DO [facility] 09-06-2021 19:40-0400 Diastolic blood pressure 78 mm[Hg] CHANCE DURESKA DO [facility] 09-06-2021 19:40-0400 Heart rate 69 /min CHANCE DURESKA DO [facility] 09-06-2021 19:40-0400 Mean blood pressure 101 mm[Hg] CHANCE DURESKA DO [facility] 09-06-2021 19:40-0400 Respiratory rate 14 /min CHANCE DURESKA DO [facility] 09-06-2021 19:40-0400 Systolic blood pressure 146 mm[Hg] CHANCE DURESKA DO [facility] 09-06-2021 18:35-0400 Body temperature 98.6 [degF] CHANCE DURESKA DO [facility] 09-06-2021 18:35-0400 Diastolic blood pressure 88 mm[Hg] CHANCE DURESKA DO [facility] 09-06-2021 18:35-0400 Heart rate 69 /min CHANCE DURESKA DO [facility] 09-06-2021 18:35-0400 Respiratory rate 18 /min CHANCE BEATTY DO [facility] 09-06-2021 18:35-0400 Systolic blood pressure 155 mm[Hg] CHANCE BEATTY DO [facility] 07-02-2016 14:35-0400 BMI (Body Mass Index) 30.96 kg/m2 [facility] Work Phone: 07-02-2016 14:35-0400 Body weight 81.83 kg [facility] Work Phone: 07-02-2016 14:35-0400 BP Diastolic 84 mm[Hg] [facility] Work Phone: 07-02-2016 14:35-0400 BP Systolic 130 mm[Hg] [facility] Work Phone: 07-02-2016 14:35-0400 Height 162.56 cm [facility] Work Phone: 07-02-2016 14:35-0400 Pulse (Heart Rate) 60 /min [facility] Work Phone: 07-02-2016 14:35-0400 Respiratory Rate 18 /min [facility] Work Phone: 07-02-2016 14:35-0400 Weight 81.83 kg Andrew Ramirez MD [facility] Work Phone: 03-03-2015 16:02-0500 BSA (Body Surface Area) 1.94 m2 [facility] Work Phone: 06-13-2014 15:45-0400 Heart rate 64 /min [facility] Work Phone: Encounters Encounter Date Encounter Type Care Provider Facility Start: 11-09-2023 End: 11-09-2023 ambulatory Jayashree Hernandez MD Work Phone: [facility] Start: 11-09-2023 End: 11-09-2023 Patient encounter procedure Jayashree Hernandez MD Work Phone: [facility] Comment on above: Lab Start: 11-02-2023 End: 11-02-2023 Telephone encounter Frederick Donald MARTINEZTIRE SETTER Work Phone: [facility] Comment on above: Appointment Start: 10-28-2023 End: 10-28-2023 Admission to same day surgery center Frederick Donald MARTINEZTIRE SETTER Work Phone: [facility] Comment on above: Gastroesophageal ref lux disease with esophagitis without hemorrhage (Primary Dx); History of bariatric surgery; Class 1 obesity with serious comorbidity and body mass index (BMI) of 31.0 to 31.9 in adult, unspecified obesity type; NATO (obstructive sleep apnea) Start: 10-28-2023 End: 10-28-2023 Patient encounter procedure Sandrine Humphries RD Work Phone: [facility] Comment on above: Class 1 obesity with serious comorbidity and body mass index (BMI) of 31.0 to 31.9 in adult, unspecified obesity type (Primary Dx) Start: 10-28-2023 End: 10-28-2023 Telemedicine consultation with patient Frederick Colvin TIRE SETTER Work Phone: [facility] Start: 10-28-2023 End: 10-28-2023 ambulatory FREDERICK COLVIN Facility:[facility] Start: 10-18-2023 End: 10-18-2023 Orders Only Jennifer Salas APRN.TIRE SETTER Work Phone: [facility] Comment on above: Increased PTH level (Primary Dx); Blood alkaline phosphatase increased compared with prior measurement Start: 10-14-2023 End: 10-14-2023 Subsequent hospital visit by physician [facility] Work Phone: Radiology Comment on above: Gastroesophageal ref lux disease with esophagitis without hemorrhage [K21.00] Start: 10-14-2023 End: 10-14-2023 ambulatory JENNIFER SALAS Facility:[facility] Start: 09-30-2023 Telephone encounter Jayashree de la cruz MD Work Phone: [facility] Comment on above: Medical Clearance Start: 09-30-2023 End: 09-30-2023 Admission to same day surgery center Jennifer Russell Josue DEDENTER.TIRE SETTER Work Phone: [facility] Comment on above: Gastroesophageal ref lux disease with esophagitis without hemorrhage (Primary Dx); Helicobacter pylori infection; Class 1 obesity with serious comorbidity and body mass index (BMI) of 31.0 to 31.9 in adult, unspecified obesity type; History of bariatric surgery; History of mechanical aortic valve replacement; NATO (obstructive sleep apnea) Start: 09-30-2023 End: 09-30-2023 Telemedicine consultation with patient Jennifer Russell Josue DEDENTER.TIRE SETTER Work Phone: [facility] Start: 09-30-2023 End: 09-30-2023 ambulatory [facility] Facility:[facility] Start: 08-12-2023 ambulatory Jayashree Hernandez MD Work Phone: [facility] Start: 08-12-2023 Patient encounter procedure Gisela Hernandez MD Work Phone: [facility] Comment on above: Ekg Start: 08-01-2023 Telephone encounter Jennifer lewis DEDENTER.TIRE SETTER Work Phone: [facility] Comment on above: Patient Update Start: 07-29-2023 End: 07-29-2023 ambulatory [facility] Facility:[facility] Start: 07-28-2023 Telephone encounter Jayashree de la cruz MD Work Phone: [facility] Comment on above: Appointment Appointment; Patient Question Start: 07-28-2023 End: 07-28-2023 Patient encounter procedure Jayashree Hernandez MD Work Phone: [facility] Comment on above: Gastroesophageal ref lux disease with esophagitis without hemorrhage (Primary Dx); Helicobacter pylori infection; Class 1 obesity with serious comorbidity and body mass index (BMI) of 31.0 to 31.9 in adult, unspecified obesity type; History of bariatric surgery; History of mechanical aortic valve replacement; NATO (obstructive sleep apnea); Nutritional anemia Start: 07-28-2023 End: 07-28-2023 ambulatory JAYASHREE HERNANDEZ Facility:[facility] Start: 06-10-2023 Telephone encounter Jayashree de la cruz MD Work Phone: [facility] Comment on above: Patient Update (UT b enefits information ) Start: 05-27-2023 End: 05-27-2023 ambulatory [facility] Provider [facility] Comment on above: Bariatric Seminar Start: 05-27-2023 E-mail encounter abdoul vyas caregiver [facility] Provider [facility] Start: 05-27-2023 Telephone encounter Jayashree de la cruz MD Work Phone: [facility] Comment on above: Appointment Start: 05-27-2023 End: 05-27-2023 Patient encounter procedure Jayashree Hernandez MD Work Phone: [facility] Comment on above: Helicobacter pylori infection (Primary Dx); Gastroesophageal reflux disease without esophagitis; History of bariatric surgery; Hx of aortic valve replacement, mechanical; NATO (obstructive sleep apnea); Class 1 obesity with serious comorbidity and body mass index (BMI) of 33.0 to 33.9 in adult, unspecified obesity type Start: 05-22-2023 ambulatory Jayashree Hernandez MD Work Phone: [facility] Comment on above: Clarithromycin Start: 05-17-2023 Orders Only Jennifer alvarado DEDENTER.TIRE SETTER Work Phone: [facility] Comment on above: Helicobacter pylori infection (Primary Dx) Start: 05-13-2023 Preprocedural examin ation done Jennifer Salas DEDENTER.TIRE SETTER Work Phone: [facility] Work Phone: Start: 05-13-2023 [facility] Start: 05-13-2023 ambulatory [facility] Facility: [facility] Start: 04-22-2023 ambulatory [facility] Facility: [facility] Start: 04-22-2023 End: 04-22-2023 Subsequent hospital visit by physician Gi/Gu [facility] (I-Stat) [facility] Comment on above: Gastroesophageal ref lux disease, unspecified whether esophagitis present [K21.9] Start: 04-01-2023 End: 04-01-2023 Emergency department patient visit CARMEN MARES MD [facility] Start: 03-11-2023 End: 03-11-2023 ambulatory [facility] Facility:[facility] Start: 03-04-2023 End: 03-04-[address] SHABBIR KILPATRICK MD Facility:B Start: 02-25-2023 End: 02-25-[address] DESHAWN AVILA MD Facility:[facility] Start: 02-25-2023 End: 02-25-[address] DESHAWN AVILA MD [facility] Start: 12-07-2022 End: 12-07-2022 Emergency department patient visit SHARON BLAKELY DO [facility] Start: 11-05-2022 End: 11-05-[address] DESHAWN AVILA MD Facility:[facility] Start: 09-29-2022 End: 09-29-2022 Emergency department patient visit CARMEN MARES Facility:[facility] Start: 08-12-2022 End: 08-12-2022 Emergency department patient visit SRIDHAR ESPINOZA DO [facility] Start: 08-09-2022 End: 08-09-[address] SHABBIR KILPATRICK MD Facility:[facility] Start: 08-09-2022 End: 08-09-[address] SHABBIR KILPATRICK MD [facility] Start: 07-26-2022 End: 06-26-2023 Lab-Standing Order DANIEL Villareal LEÓN [facility] Start: 07-19-2022 End: 07-30-2023 Lab-Standing Order DR SHABBIR KILPATRICK MD [facility] Start: 06-02-2022 End: 06-04-2022 Evaluation and management of inpatient ANDREW SHARONA DO [facility] Start: 04-30-2022 End: 04-30-[address] SHABBIR KILPATRICK MD [facility] Start: 03-26-2022 End: 03-26-[address] SHABBIR KILPATRICK MD [facility] Start: 02-11-2022 End: 02-11-2022 Emergency department patient visit DR ARMANDO WAY MD [facility] Start: 12-15-2021 End: 12-15-2021 Emergency department patient visit DR JENNIFER MINOR DO [facility] Start: 11-19-2021 End: 11-19-2021 Emergency department patient visit GARRETT MALONE MD [facility] Start: 11-13-2021 End: 11-13-[address] SHABBIR KILPATRICK MD [facility] Start: 10-08-2021 End: 10-12-2021 Outreach Lab ORLIN ROSALES DEDENTER-TIRE SETTER [facility] Start: 09-06-2021 End: 09-06-2021 Emergency department patient visit CHANCE ROGERIO DO [facility] Start: 08-26-2021 End: 08-26-2021 Patient encounter procedure ZACKERY TRUONG DO [facility] Start: 06-18-2021 End: 06-18-[address] SHABBIR KILPATRICK MD [facility] Start: 05-19-2021 End: 06-13-2022 Lab-Standing Order DR SHABBIR KILPATRICK MD [facility] Start: 04-15-2021 End: 05-10-2022 Lab-Standing Order DR SHABBIR KILPATRICK MD [facility] Start: 01-14-2021 Patient encounter procedure Pr heather Huff MD Work Phone: [facility] Start: 01-14-2021 Progress Note Eric Huff MD Work Phone: [facility] Start: 06-11-2018 End: 06-12-2018 Emergency department patient visit Chance Ge Facility:[facility] Start: 06-11-2018 Patient encounter procedure Facility:[id number] Procedures Date Procedure Procedure Detail Performing Clinician Start: 10-14-2023 Us abdominal real time w/image limited Jayashree Hernandez MD Work Phone: Start: 10-14-2023 Lipid 1996 panel - Serum or Plasma Us 2 Work Phone: Start: 04-22-2023 XR UPPER GI SINGLE CONTRAST Jayashree esparza MD Work Phone: Start: 11-05-2022 Esophagogastroduodenoscopy NIDRODDY BLAKELY DO Start: 10-10-2020 Cardiovascular stress test using pharmacologic stress agent ZACKERY TRUONG DO Comment on above: [facility]-normal Start: 09-10-2020 Plain chest X-ray ZACKERY TRUONG DO Comment on above: [facility]-mild vascualr congestion Start: 07-02-2016 End: 07-02-2016 Documentation of current medications Kristyn Montiel Start: 07-02-2016 End: 08-26-2016 *BMP Andrew Ramirez MD Start: 07-02-2016 End: 07-02-2016 Follow Up Appt 1 year Andrew Ramirez MD Start: 07-02-2016 End: 07-02-2016 PFM Andrew Ramirez MD Start: 07-02-2016 End: 08-31-2016 Transesophageal echocardiogram (MARCEL) Andrew Ramirez MD Start: 06-27-2015 End: 06-26-2016 Coagulation factor induced.INR assay in platelet poor plasma Andrew Ramirez MD Start: 03-03-2015 End: 03-03-2015 Dietary management education, guidance, and counseling Kristyn Abarcaby Start: 03-03-2015 End: 03-04-2015 Coagulation factor induced.INR assay in platelet poor plasma Andrew Ramirez MD Start: 03-03-2015 End: 03-03-2015 Follow Up Appt 6 months Andrew Ramirez MD Start: 03-03-2015 End: 03-03-2015 PFM Andrew Ramirez MD Start: 06-13-2014 End: 07-02-2016 Chest x-ray Andrew Ramirez MD Start: 06-13-2014 End: 07-03-2014 Coagulation factor induced.INR assay in platelet poor plasma Andrew Ramirez MD Start: 06-13-2014 End: 2014 Documentation of current medications Andrew Ramirez MD Start: 06-13-2014 End: 07-02-2016 Echocardiography Andrew Ramirez MD Start: 06-13-2014 End: 06-13-2014 Electrocardiogram, complete Andrew spears MD Start: 06-13-2014 End: 06-13-2014 Follow Up Appt 6 months Andrew Ramirez MD Start: 06-13-2014 End: 06-13-2014 PFM Andrew Ramirez MD Start: 06-11-2014 Replacement of aortic valve Aortic valve replacement, hx of Kristyn Montiel Start: 06-08-2011 Lipid 1996 panel - Serum or Plasma Gi/Gu (I-Stat) Start: 11-19-2009 Mammography Eric Huff MD Work Phone: Cholecystectomy DR SHABBIR MATHIAS MD Entire femur (body structure) DR SHABBIR KILPATRICK MD Heart structure (body structure) DR SHABBIR KILPATRICK MD Comment on above: artificial heart valve, aorta Hysterectomy DR SHABBIR KILPATRICK MD Replacement of aortic valve ZACKERY TRUONG DO Sternotomy ZACKERY Zeng Plan of Treatment Date Care Activity Detail Author Start: 04-01-2033 Urine microalbumin profile DTaP,Tdap,Td Vaccine (7 - Td or Tdap) [facility] Start: 10-13-2028 Lipid panel Lipid Screening [facility] Start: 10-13-2026 Diabetes Screening Diabetes Screening [facility] Start: 09-08-2024 Diabetes Screening Diabetes Screening [facility] Start: 07-27-2024 BP Controlled (<130/80) BP Controlled (<130/80) [facility] in Start: 12-14-2023 End: 12-14-2023 Patient encounter procedure 12/14/2023 11:30 AM EDT [facility] [address] [place] [address] Trish Link, [address] [place] [address] Htgrbsro-Yxuxas-XXJ-throu gh VA-Needs DX GERD-SEE TE 07/31 [facility] Comment on above: Kqnzggmf-Rxupqw-OEZ-through VA-Needs DX GERD-SEE TE 07/31 Start: 12-13-2023 End: 12-13-2023 Patient encounter procedure 12/13/2023 8:00 AM EDT [facility] [address] [place] [address] Estelita Morgan, PSYD [address] [facility] [place] [address] Forpvnmc-Pqguyp-UIX-throu gh VA-Needs DX GERD-SEE TE 07/31 [facility] Comment on above: Nklaekac-Piskln-ASJ-through VA-Needs DX GERD-SEE TE 07/31 Start: 11-28-2023 End: 11-28-2023 Patient encounter procedure [facility] Comment on above: Okdxlozc-Uizqel-FPL-through VA-Needs DX GERD-SEE TE 07/31 Start: 10-28-2023 End: 10-28-2023 Patient encounter procedure [facility] Comment on above: Zlnbbkch-Zxqfeb-HBQ-through VA-Needs DX GERD-SEE TE 07/31 Start: 10-18-2023 End: 01-17-2024 Hepatic function 2000 panel - Serum or Plasma HEPATIC FUNCTION PNL Lab Routine Blood alkaline phosphatase increased compared with prior measurement Expected: 10/18/2023, Expires: 01/17/2024 [facility] Comment on above: Expected: 10/18/2023, Expires: Start: 10-18-2023 End: 01-17-2024 Parathyrin.intact [Mass/volume] in Serum or Plasma PTH INTACT Lab Routine Increased PTH level Expected: 10/18/2023, Expires: 01/17/2024 [facility] Work Phone: Comment on above: Expected: 10/18/2023, Expires: Start: 10-16-2023 Covid-19 Vaccine () Covid-19 Vaccine () [facility] Start: 10-16-2023 Covid-19 Vaccine (2023-) Covid-19 Vaccine () [facility] Start: 10-16-2023 Influenza vaccination Influenza Vaccine (#1) [facility] Start: 09-30-2023 End: 12-30-2023 25-hydroxyvitamin D3 [Mass/volume] in Serum or Plasma VITAMIN D 25 HYDROXY Lab Routine Gastroesophageal reflux disease with esophagitis without hemorrhage History of bariatric surgery Expected: 09/30/2023, Expires: 12/30/2023 [facility] Comment on above: Expected: 09/30/2023, Expires: Start: 09-30-2023 End: 12-30-2023 CBC panel - Blood by Automated count COMPLETE BLOOD COUNT Lab Routine Gastroesophageal reflux disease with esophagitis without hemorrhage History of bariatric surgery Expected: 09/30/2023, Expires: 12/30/2023 [facility] Work Phone: Comment on above: Expected: 09/30/2023, Expires: Start: 09-30-2023 End: 12-30-2023 Cobalamin (Vitamin B12) [Mass/volume] in Serum or Plasma VITAMIN B12 Lab Routine Gastroesophageal reflux disease with esophagitis without hemorrhage History of bariatric surgery Expected: 09/30/2023, Expires: 12/30/2023 [facility] Comment on above: Expected: 09/30/2023, Expires: Start: 09-30-2023 End: 12-30-2023 Comprehensive metabolic 2000 panel - Serum or Plasma COMPREHENSIVE METABOLIC PANEL Lab Routine Gastroesophageal reflux disease with esophagitis without hemorrhage History of bariatric surgery Expected: 09/30/2023, Expires: 12/30/2023 [facility] Comment on above: Expected: 09/30/2023, Expires: Start: 09-30-2023 End: 12-30-2023 Ferritin [Mass/volume] in Serum or Plasma FERRITIN Lab Routine Gastroesophageal reflux disease with esophagitis without hemorrhage History of bariatric surgery Expected: 09/30/2023, Expires: 12/30/2023 [facility] Comment on above: Expected: 09/30/2023, Expires: Start: 09-30-2023 End: 12-30-2023 Folate [Mass/volume] in Serum or Plasma FOLATE, SERUM Lab Routine Gastroesophageal reflux disease with esophagitis without hemorrhage History of bariatric surgery Expected: 09/30/2023, Expires: 12/30/2023 [facility] Comment on above: Expected: 09/30/2023, Expires: Start: 09-30-2023 End: 12-30-2023 Hemoglobin A1c in Blood HEMOGLOBIN A1C Lab Routine Gastroesophageal reflux disease with esophagitis without hemorrhage History of bariatric surgery Expected: 09/30/2023, Expires: 12/30/2023 [facility] Comment on above: Expected: 09/30/2023, Expires: Start: 09-30-2023 End: 12-30-2023 Iron and Iron binding capacity panel - Serum or Plasma IRON AND TIBC Lab Routine Gastroesophageal reflux disease with esophagitis without hemorrhage History of bariatric surgery Expected: 09/30/2023, Expires: 12/30/2023 [facility] Comment on above: Expected: 09/30/2023, Expires: Start: 09-30-2023 End: 12-30-2023 Lipid 1996 panel - Serum or Plasma LIPID PANEL BASIC Lab Routine Gastroesophageal reflux disease with esophagitis without hemorrhage History of bariatric surgery Expected: 09/30/2023, Expires: 12/30/2023 [facility] Comment on above: Expected: 09/30/2023, Expires: Start: 09-30-2023 End: 12-30-2023 Parathyrin.intact [Mass/volume] in Serum or Plasma PTH INTACT Lab Routine Gastroesophageal reflux disease with esophagitis without hemorrhage History of bariatric surgery Expected: 09/30/2023, Expires: 12/30/2023 [facility] Comment on above: Expected: 09/30/2023, Expires: Start: 09-30-2023 End: 12-30-2023 Retinol [Mass/volume] in Serum or Plasma VITAMIN A/RETINOL Lab Routine Gastroesophageal reflux disease with esophagitis without hemorrhage History of bariatric surgery Expected: 09/30/2023, Expires: 12/30/2023 [facility] Comment on above: Expected: 09/30/2023, Expires: Start: 09-30-2023 End: 12-30-2023 Thyrotropin [Units/volume] in Serum or Plasma THYROID STIMULATING HORMONE Lab Routine Gastroesophageal reflux disease with esophagitis without hemorrhage History of bariatric surgery Expected: 09/30/2023, Expires: 12/30/2023 [facility] Comment on above: Expected: 09/30/2023, Expires: Start: 09-30-2023 End: 12-30-2023 VITAMIN B1 (THIAMINE), WHOLE BLOOD VITAMIN B1 (THIAMINE), WHOLE BLOOD Lab Routine Gastroesophageal reflux disease with esophagitis without hemorrhage History of bariatric surgery Expected: 09/30/2023, Expires: 12/30/2023 [facility] Comment on above: Expected: 09/30/2023, Expires: Start: 09-30-2023 End: 12-30-2023 Zinc [Mass/volume] in Serum or Plasma ZINC BLD Lab Routine Gastroesophageal reflux disease with esophagitis without hemorrhage History of bariatric surgery Expected: 09/30/2023, Expires: 12/30/2023 [facility] Comment on above: Expected: 09/30/2023, Expires: Start: 07-29-2023 End: 07-29-2023 ambulatory 07/29/2023 2:30 PM EDT Results Only Luigi Diaz [facility] [address] [place] [address] Luigi Diaz [facility] Start: 07-28-2023 End: 10-27-2023 NICOTINE & METAB, UR NICOTINE & METAB, UR Lab Routine Gastroesophageal reflux disease with esophagitis without hemorrhage Expected: 07/28/2023, Expires: 10/27/2023 [facility] Comment on above: Expected: 07/28/2023, Expires: 4 Start: 07-28-2023 End: 10-27-2023 Thyrotropin [Units/volume] in Serum or Plasma THYROID STIMULATING HORMONE Lab Routine Nutritional anemia Expected: 07/28/2023, Expires: 10/27/2023 [facility] Comment on above: Expected: 07/28/2023, Expires: 4 Start: 07-28-2023 End: 10-27-2023 TOXICOLOGY SCREEN, ROUTINE URINE TOXICOLOGY SCREEN, ROUTINE URINE Lab Routine Gastroesophageal reflux disease with esophagitis without hemorrhage Expected: 07/28/2023, Expires: 10/27/2023 [facility] Comment on above: Expected: 07/28/2023, Expires: 4 Start: 10-15-2022 Covid-19 Vaccine ( season) Covid-19 Vaccine ( season) [facility] Start: 10-15-2021 Influ[facility] Start: 06-29-2017 End: 06-29-2017 Appointment Appointment [facility] Work Phone: Start: 07-02-2016 End: 08-26-2016 *BMP *BMP [facility] Work Phone: Start: 07-02-2016 End: 07-02-2016 Follow Up Appt 1 year Follow Up Appt 1 year [facility] Work Phone: Start: 07-02-2016 End: 07-02-2016 PFM PFM [facility] Work Phone: Start: 07-02-2016 End: 07-26-2016 Transesophageal echocardiogram (MARCEL) Transesophageal echocardiogram (MARCEL) [facility] Work Phone: Start: 06-20-2016 PAP TESTING PAP TESTING [facility] Start: 06-20-2016 Screening for malignant neoplasm of cervix Pap Testing [facility] Start: 06-07-2016 Lipid panel Lipid Screening [facility] Start: 06-07-2016 LIPID SCREEN LIPID SCREEN [facility] Start: 06-27-2015 End: 07-23-2015 Coagulation factor induced.INR assay in platelet poor plasma *PT/INR - Standing Order [employer] Work Phone: Start: 06-15-2015 SHINGRIX VACCINE (1 of 2) SHINGRIX VACCINE (1 of 2) [facility] Start: 03-03-2015 End: 03-04-2015 Coagulation factor induced.INR assay in platelet poor plasma *PT/INR - Standing Order [employer] Work Phone: Start: 03-03-2015 End: 03-03-2015 Follow Up Appt 6 months Follow Up Appt 6 months [employer] Work Phone: Start: 03-03-2015 End: 03-03-2015 PFM PFM [employer] Work Phone: Start: 06-20-2014 Screening for malignant neoplasm of cervix Cervical Cancer Screening [facility] Start: 06-13-2014 End: 07-02-2016 Chest x-ray X-Ray, Chest, PA & Lateral [employer] Work Phone: Start: 06-13-2014 End: 07-03-2014 Coagulation factor induced.INR assay in platelet poor plasma *PT/INR - Standing Order [employer] Work Phone: Start: 06-13-2014 End: 06-13-2014 Echocardiography Echocardiogram (complete) [employer] Work Phone: Start: 06-13-2014 End: 06-13-2014 Electrocardiogram, complete EKG (In office) [employer] Work Phone: Start: 06-13-2014 End: 06-13-2014 Follow Up Appt 6 months Follow Up Appt 6 months [employer] Work Phone: Start: 06-13-2014 End: 06-13-2014 PFM PFM [employer] Work Phone: Start: 06-07-2014 DIABETES SCREEN DIABETES SCREEN [facility] Start: 11-19-2010 Mammography MAMMOGRAM [facility] Start: 11-19-2010 Screening for malignant neoplasm of breast Mammogram Screening [facility] Start: 2010 COLOGUARD (FIT-DNA) COLOGUARD (FIT-DNA) [facility] Start: 2010 Colonoscopy COLONOSCOPY [facility] Start: 2010 COLORECTAL CANCER SCREENING COLORECTAL CANCER SCREENING [facility] Start: [address] COLONOGRAPHY [facility] Start: 2010 FECAL OCCULT BLOOD FECAL OCCULT BLOOD [facility] Start: 2010 Screening for malignant neoplasm of colon [facility] Start: 2010 SIGMOIDOSCOPY SIGMOIDOSCOPY [facility] Start: 06-15-2002 Urine microalbumin profile DTAP,TDAP,TD (1 - Tdap) [facility] Start: 06-15-1995 HPV TESTING HPV TESTING [facility] Start: 06-15-1995 Screening for malignant neoplasm of cervix HPV Testing [facility] Start: 1984 Hepatitis B Vaccine (1 of 3 - 19+ 3-dose series) Hepatitis B Vaccine (1 of 3 - 19+ 3-dose series) [facility] Start: 06-15-1983 ANNUAL PCP TEAM CHRONIC DISEASE VISIT ANNUAL PCP TEAM CHRONIC DISEASE VISIT [facility] Start: 06-15-1983 BP CONTROLLED (<130/80) BP CONTROLLED (<130/80) [facility] Start: 06-15-1983 HEPATITIS C SCREENING HEPATITIS C SCREENING [facility] Start: 06-15-1983 Hepatitis C screening Hepatitis C Screening [facility] Start: 06-15-1983 HIV SCREENING HIV SCREENING [facility] Start: 06-15-1983 HIV screening HIV Screening [facility] Start: 1970 COVID-19 VACCINE (#1) COVID-19 VACCINE (#1) [facility] Helicobacter pylori Ag [Presence] in Stool by Immunoassay H PYLORI AG BY EIA,STOOL Microbiology Routine Helicobacter pylori infection Ordered: 05/17/2023 [facility] Work Phone: Comment on above: Ordered: 05/17/2023 Helicobacter pylori Ag [Presence] in Stool by Immunoassay HELICOBACTER PYLORI ANTIGEN BY EIA, STOOL Microbiology Routine Helicobacter pylori infection Ordered: 05/27/2023 [facility] Work Phone: Comment on above: Ordered: 05/27/2023 End: 08-26-2024 US Abdomen RUQ US ABD RIGHT UPPER QUADRANT Radiology Routine Gastroesophageal reflux disease with esophagitis without hemorrhage 1 Occurrences starting 07/28/2023 until 08/26/2024 [facility] Work Phone: Comment on above: 1 Occurrences starting 07/28/2023 until 08/26/2024 [facility] Immunizations Immunization Date Immunization Notes Care Provider Fa cili 04-01-2023 tetanus toxoid, redu roscoe diphtheria toxoid, and acellular pertussis vaccine, adsorbed CARMEN MARES MD [facility] 11-09-2022 influenza virus vaccine, unspecified formulation Jayashree Hernandez MD Work Phone: [facility] 03-18-2020 SARS-CoV-2 (COVID-19 ) mRNA-[address] SHABBIR KILPATRICK MD [facility] 02-20-2020 SARS-CoV-2 (COVID-19 ) mRNA-[address] SHABBIR KILPATRICK MD [facility] Comment on above: Result Comment: 2021: [id number] 10-03-[address] SHABBIR KILPATRICK MD [facility] 04-29-[address] SHABBIR KILPATRICK MD [facility] 03-05-2017 tetanus toxoid, redu roscoe diphtheria toxoid, and acellular pertussis vaccine, adsorbed DR SHABBIR KILPATRICK MD [facility] 09-23-2015 pneumococcal conjuga te vaccine, [address] SHABBIR KILPATRICK MD [facility] 09-23-2015 tetanus toxoid, redu roscoe diphtheria toxoid, and acellular pertussis vaccine, adsorbed DR SHABBIR KILPATRICK MD [facility] 09-23-2015 zoster vaccine, live DR SHABBIR KILPATRICK MD [facility] 11-14-2012 influenza virus vaccine, unspecified formulation DR SHABBIR KILPATRICK MD [facility] 10-25-2012 tetanus toxoid, redu roscoe diphtheria toxoid, and acellular pertussis vaccine, adsorbed DR SHABBIR KILPATRICK MD [facility] 11-21-2009 influenza virus vaccine, unspecified formulation Eric Huff MD Work Phone: [facility] Work Phone: 12-04-2008 influenza virus vaccine, unspecified formulation Eric Huff MD Work Phone: [facility] Work Phone: 2002 tetanus and diphther ia toxoids, adsorbed, preservative free, for adult use (2 Lf of tetanus toxoid and 2 Lf of diphtheria toxoid) Eric Huff MD Work Phone: [facility] Work Phone: Payers Date Payer Category Payer Private Health Insurance [id number] 2022 Unknown [id number] 2022 Unknown [id number] 2018 Unknown 2010 Unknown [employer] PPO OOS [id number] 2010-Present [phone] [address] [place] [address] PPO [id number] 2003 Private Health Insurance [id number] 2003 Unknown [id number] 2003 Unknown [id number] 11 1965 Unknown [id number] 1965 Unknown [id number] 356 1965 Unknown [id number] 627 1965 Unknown [id number] 627 1965 Unknown [id number] 627 1965 Unknown [id number] 7 1965 Unknown [id number] 627 1965 Unknown [id number] 627 1965 Unknown [id number] 627 1965 Unknown [id number] 627 Unknown [id number] Social History Date Type Detail Facility Start: 02-02-2020 Tobacco smoking status Never s moked tobacco (finding) [facility] Sex Assigned At Sex [facility] Start: 09-07-2014 End: 10-28-2023 Alcohol intake Current non-drinker of alcohol (finding) [facility] Start: 1965 Sex Assigned At Not on file [facility] Start: 03-11-2023 End: 10-28-2023 History of Social function [facility] Start: 03-11-2023 End: 10-28-2023 Tobacco use panel [facility] National Score (1-10 0), lower number is lower risk 64 [facility] Goals Date Patient Goal Desired Activity /State Personal health goal Functional Status Date Assessment Result Facility 04-01-2023 Functional Status Up ad elijah [facility] 02-25-2023 Functional Status Repositions self [facility] 02-25-2023 Functional Status Maintained [facility] 12-07-2022 Functional Status Independent [facility] 12-07-2022 Functional Status Standard Safet y ID band on, Call device within reach, Bed in low position, Wheels locked, Upper/Half-Length side-rails up, Phone within reach, personal items within reach, Bedside Cart Locked, Visitor at bedside [facility] 08-12-2022 Functional Status Assistive Device None A [facility] 08-12-2022 Functional Status ID band on, Call device within reach, Bed in low position, Wheels locked, Upper/Half-Length side-rails up [facility] 06-04-2022 Functional Status Room check performed [facility] 06-04-2022 Functional Status [facility] 06-04-2022 Functional Status [facility] 06-03-2022 Functional Status [facility] 06-03-2022 Functional Status Patient Identi fied Identification band, Verbal [facility] 06-03-2022 Functional Status Maintained [facility] 06-03-2022 Functional Status [facility] 06-03-2022 Functional Status [facility] 06-02-2022 Functional Status Sensory Deficits None A [facility] 02-11-2022 Functional Status ID band on, Call device within reach, Bed in low position, Wheels locked, Bedside Cart Locked, Safety level maintained [facility] 12-15-2021 Functional Status ID band on, Call device within reach, Bed in low position, Wheels locked [facility] 11-19-2021 Functional Status Standard Safet y ID band on, Call device within reach, Bed in low position, Wheels locked, Upper/Half-Length side-rails up, Bedside Cart Locked, Safety level maintained [facility] 09-06-2021 Functional Status Independent [facility] 09-06-2021 Functional Status Standard Safet y ID band on, Call device within reach, Bed in low position, Wheels locked, Upper/Half-Length side-rails up, Phone within reach, personal items within reach, Assistive devices within reach, Toileting device within reach, Bedside Cart Locked, Visitor at bedside, Safety level maintained [facility] Mental Status Date Assessment Result Facility 04-01-2023 Mental Status Oriented x 4 [facility] 02-25-2023 Mental Status Oriented x 4 [facility] 02-25-2023 Mental Status [facility] 12-07-2022 Mental Status Orientation Oriented x 4 [facility] 12-07-2022 Mental Status [facility] 08-12-2022 Mental Status Orientation Oriented x 4 [facility] 08-12-2022 Mental Status [facility] 06-04-2022 Mental Status Oriented x 4 [facility] 06-04-2022 Mental Status [facility] 06-03-2022 Mental Status [facility] 06-03-2022 Mental Status [facility] 06-03-2022 Mental Status [facility] 02-11-2022 Mental Status Oriented x 4 [facility] 12-15-2021 Mental Status Orientation Oriented x 4 [facility] 11-19-2021 Mental Status Orientation Oriented x 4 [facility] 09-06-2021 Mental Status Orientation Oriented x 4 [facility] 09-06-2021 Mental Status [facility] Clinical Notes 01-14-2021 to 11-02-2023 Telephone Encounter - Ovidio Humphries - 11/02/2023 11:33 AM EDTTelephone Encounter - Ovidio Humphries - 11/02/2023 11:33 AM Frederick Chamberlain APRN.[employer] - 10/28/2023 2:00 PM EDTPatient Instructions Note Date & Type Note Facility 11-02-2023 Telephone encounter Note LVM for pt to call back 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 Around 11/25/23 Drryeahq-Qhrpij-XLF[facility]through [facility] GERD-[place] TE 07/31 [facility] 11-02-2023 Miscellaneous Notes LVM for pt to call back 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 Around 11/25/23 Gktxoiid-Qudhem-STH-through [facility] GERD-SEE TE 07/31 documented in this encounter [facility] 10-28-2023 History of Present illness Narrative BARIATRIC SURGERY CLINIC FOLLOW UP NOTE DISTANCE HEALTH VISIT This Team Access Model visit is a virtual encounter. It required patient-provider interaction for the medical decision making as documented below. Consent was obtained to complete today's distance health visit. I have communicated my name and active licensure. The patient's identity and physical location were verified at the time of this visit. Either the patient or their legal hardware supplies sales representative has been informed of the risks and benefits of -- and alternatives to -- treatment through a remote evaluation and consents to proceed with the evaluation remotely. HPI: Gardenia Mujica a 58 year old female presents for medically supervised weight loss treatment of her obesity related co morbidities. This individual presents for required visits. Gardenia Mujica weight has decreased since first visit in the program. She is a patient in the [facility] with Dr. Hernandez with a history of VBG with worsening heartburn and acid regurgitation. She is planning to undergo revision of VBG to RYGB to treat medical refractory GERD. Gardenia is doing well with nutritional recommendations. Denies recent illnesses, hospitalizations, and medication changes. She still experiences severe acid reflux daily. Continues remedies as before with not much alleviation. She saw pulmonology recently who mentioned they are okay clearing her. Will reach out to them again for official clearance. She was cleared by cardiology. She will follow up with the coumadin clinic for her coumadin bridge prior to surgery. She needs lab work be [facility] to [facility]. HISTORY REVIEWED (electronic chart updated): - medical history - medications - allergies PAST MEDICAL HISTORY Diagnosis Date Acute gastritis without mention of hemorrhage Aortic regurgitation 10/05/2008 Esophageal reflux 06/10/2008 Esophagitis, unspecified Hiatal hernia 04/22/2023 3 cm on UGI MITRAL VALVE DISORDER 06/10/2008 Obstructive sleep apnea 03/19/2010 PTSD (post-traumatic stress disorder) 04/29/2010 Social: Social History Tobacco Use Smoking status: Never Smokeless tobacco: Never Vaping Use Vaping status: Never Used Substance Use Topics Alcohol use: No Drug use: No Medications: Current Outpatient Medications Medication Sig pantoprazole DR (PROTONIX) 40 mg tablet Take 1 tablet by mouth two times a day. bismuth subsalicylate (BISMUTH) 262 mg chewable tablet Take 1 tablet by mouth four times daily for 14 days. lisinopril (ZESTRIL) 20 mg tablet Take 30 mg by mouth. valACYclovir (VALTREX) 500 mg tablet Take 1 tablet by mouth once daily. trospium (SANCTURA) 20 mg tablet 20 mg. lysine HCL 1,000 mg tab TAKE BY MOUTH EVERY DAY cyanocobalamin (VITAMIN B-12) 1,000 mcg tab Take 1,000 mcg by mouth once daily. (Patient not taking: Reported on 07/28/2023) warfarin (COUMADIN) 3 mg tablet acetaminophen(TYLENOL 325 MG TAB) Take two(2) tablets every four(4) to six(6) hours as needed for pain. No current facility-administered medications for this visit. REVIEW OF SYSTEMS General: No fatigue or fevers HEENT: Negative for frequent or significant headaches, No changes in hearing or vision, no nose bleeds or other nasal problems PAP Therapy: Using nightly GI:No nausea, vomiting, or diarrhea and + Reflux Muskuloskeletal: Negative for joint pain or swelling, back pain or muscle pain Skin: Negative for lesions, rash, and itching Psych: Negative for sleep disturbance, mood disorder and recent psychosocial stressors PHYSICAL EXAMINATION Wt 83.9 kg (185 lb) BMI 31.76 kg/m GENERAL APPEARANCE: Pleasant, interacts appropriately and in no apparent distress. Appropriately groomed, happy, smiling, and interactive. SKIN: Skin of normal texture, without rashes/lesions/ulcerations. LUNGS: Unlabored on room air - negative findings: normal respiratory rate, no cough. NEURO/PSYCH: Oriented to person, place, time; appropriate insight and judgement. Appropriate affect. Diagnostic Tests Reviewed for Today's Visit Most recent lab and imaging results The plan of treatment for Gardenia Mujica is: Further Work-up: EGD: - Montrose-colored mucosa suspicious for short-segment Flaherty's esophagus. Biopsied. - Normal duodenal bulb, first portion of the duodenum, second portion of the duodenum and third portion of the duodenum. - Patent vertical banded gastroplasty with a pouch greater than 10 cm (measured from 39 cm to 50 cm) in length and intact staple line and band appears loose. Biopsied the gastric antrum. A. Stomach, antrum, biopsy: - Mild chronic gastritis. Immunohistochemical stain for Helicobacter pylori reveals rare staining structures suspicious for organisms. See comment. B. Gastroesophageal junction, biopsy: - Gastric type glandular mucosa with chronic gastritis. Immunohistochemical stain for Helicobacter pylori reveals staining structures suspicious for organisms. See comment. Upper GI: IMPRESSION: Postoperative changes involving the stomach. 3 cm hiatal hernia. RUQ US: fatty infiltration of liver Sleep Study: Sleep apnea, uses CPAP some nights CXR:per pulmonary clearance EKG:per cardiac clearance H Pylori positive- treated with triple therapy. Repeat stool antigen is negative Labs: complete Nicotine use <12 months: negative Tox: negative Antiplatelet/anticoagulants: Coumadin Immunosuppressive therapy: No Estrogen therapy: No Evaluations: Psychology: ongoing 11/27 Nutrition: ongoing Education class: ongoing Clearances: -Cardiac (low risk; scanned 10/04 - Coumadin clinic will bridge her for surgery) -Pulmonary (10/02 at [facility] - req clearance 10/04) -PCP Risk Calculator: VTE Risk: On coumadin; will need lovenox bridge Post-op Medications: Extended Lovenox: will require bridge from coumadin to lovenox Actigall: NA s/p cholecystectomy H2 taisha/PPI: currently on PPI Total time in direct patient contact = 15 minutes. Greater than 50% of the time was spent in counseling and/or coordination of care. This note was generated using voice recognition technology and may contain grammatical errors. ASSESSMENT/PLAN: 1. Gastroesophageal reflux disease with esophagitis without hemorrhage - ICD9: 530.81, 530.10, ICD10: K21.00 (primary diagnosis) - Still having severe acid reflux daily. - Discussed lifestyle modifications including losing weight, limiting caffeine, no meals three hours before sleep, and head of bed elevation - Continue PPI and OTC remedies. 2. History of bariatric surgery - ICD9: V45.86, ICD10: Z98.84 - Pursuing revisional surgery to alleviate GERD. 3. Class 1 obesity with serious comorbidity and body mass index (BMI) of 31.0 to 31.9 in adult, unspecified obesity type - ICD9: 278.00, V85.31, ICD10: E66.9, Z68.31 - Medical nutrition therapy with dietitian and - Psychology Nutrition Counseling Practice these: - Eat 3 meals daily--can use approved/recommended protein shake as 1 meal replacement (should be <200 calories, 20-30g protein, <5g added sugar) - Keep a food journal 5-7x/week (consider [employer] or [employer] buddy) and demonstrate meeting protein goal (60-90g protein for females, 70-105g protein for males)- Lean meats, fish, low fat dairy - cottage cheese, Iranian yogurt, light yogurt, cheese, ricotta cheese, nuts, peanut butter, beans/legumes. Eat protein first at all meals. and 64oz of caffeine-free, carbonation-free fluids at least 5 days per week - engage in formal, planned exercise 5x/week for 30 minutes of cardiovascular activity OR 150+ minutes of cardiovascular activity per week - eliminate all caffeine, carbonation, alcohol and sugar-containing beverages from diet --consider sugar-free drink mixes, water, decaf coffee and tea - Separate eating and drinking by 30 minutes - Chew your food 20-30x per bite - Sip beverages slowly--no guzzling or gulping 4. NATO (obstructive sleep apnea) - ICD9: 327.23, ICD10: G47.33 - Continue CPAP nightly. All testing complete. She needs psych and RD clearance. F/u with [facility] in 4 weeks. Frederick Colvin APRN.CNP Medical Decision Making: Problems: Moderate: 2+ stable chronic illnesses Data: Unique source(s) for external note(s) reviewed: 1 Unique test result(s) reviewed: 1 Assessment requiring an independent historian(s) Medical Decision Making Level: 4 - Moderate documented in this encounter [facility] 10-28-2023 Note HNO ID: [id number] Author: FREDERICK COLVIN APRN.CNP Service: ? Author Type: Nurse Practitioner Type: Progress Notes Filed: 10/28/2023 14:24 Note Text: BARIATRIC SURGERY CLINIC FOLLOW UP NOTE DISTANCE HEALTH VISIT This Team Access Model visit is a virtual encounter. It required patient-provider interaction for the medical decision making as documented below. Consent was obtained to complete today's distance health visit. I have communicated my name and active licensure. The patient's identity and physical location were verified at the time of this visit. Either the patient or their legal hardware supplies sales representative has been informed of the risks and benefits of -- and alternatives to -- treatment through a remote evaluation and consents to proceed with the evaluation remotely. HPI: Gardenia Mujica a 58 year old female presents for medically supervised weight loss treatment of her obesity related co morbidities. This individual presents for required visits. Garednia Mujica weight has decreased since first visit in the program. She is a patient in the [facility] with Dr. Hernandez with a history of VBG with worsening heartburn and acid regurgitation. She is planning to undergo revision of VBG to RYGB to treat medical refractory GERD. Gardenia is doing well with nutritional recommendations. Denies recent illnesses, hospitalizations, and medication changes. She still experiences severe acid reflux daily. Continues remedies as before with not much alleviation. She saw pulmonology recently who mentioned they are okay clearing her. Will reach out to them again for official clearance. She was cleared by cardiology. She will follow up with the coumadin clinic for her coumadin bridge prior to surgery. She needs lab work be faxed over to [facility]. HISTORY REVIEWED (electronic chart updated): - medical history - medications - allergies PAST MEDICAL HISTORY Diagnosis Date Acute gastritis without mention of hemorrhage Aortic regurgitation 10/05/2008 Esophageal reflux 06/10/2008 Esophagitis, unspecified Hiatal hernia 04/22/2023 3 cm on UGI MITRAL VALVE DISORDER 06/10/2008 Obstructive sleep apnea 03/19/2010 PTSD (post-traumatic stress disorder) 04/29/2010 Social: Social History Tobacco Use Smoking status: Never Smokeless tobacco: Never Vaping Use Vaping status: Never Used Substance Use Topics Alcohol use: No Drug use: No Medications: Current Outpatient Medications Medication Sig pantoprazole DR (PROTONIX) 40 mg tablet Take 1 tablet by mouth two times a day. bismuth subsalicylate (BISMUTH) 262 mg chewable tablet Take 1 tablet by mouth four times daily for 14 days. lisinopril (ZESTRIL) 20 mg tablet Take 30 mg by mouth. valACYclovir (VALTREX) 500 mg tablet Take 1 tablet by mouth once daily. trospium (SANCTURA) 20 mg tablet 20 mg. lysine HCL 1,000 mg tab TAKE BY MOUTH EVERY DAY cyanocobalamin (VITAMIN B-12) 1,000 mcg tab Take 1,000 mcg by mouth once daily. (Patient not taking: Reported on 07/28/2023) warfarin (COUMADIN) 3 mg tablet acetaminophen(TYLENOL 325 MG TAB) Take two(2) tablets every four(4) to six(6) hours as needed for pain. No current facility-administered medications for this visit. REVIEW OF SYSTEMS General: No fatigue or fevers HEENT: Negative for frequent or significant headaches, No changes in hearing or vision, no nose bleeds or other nasal problems PAP Therapy: Using nightly GI:No nausea, vomiting, or diarrhea and + Reflux Muskuloskeletal: Negative for joint pain or swelling, back pain or muscle pain Skin: Negative for lesions, rash, and itching Psych: Negative for sleep disturbance, mood disorder and recent psychosocial stressors PHYSICAL EXAMINATION Wt 83.9 kg (185 lb) BMI 31.76 kg/m? GENERAL APPEARANCE: Pleasant, interacts appropriately and in no apparent distress. Appropriately groomed, happy, smiling, and interactive. SKIN: Skin of normal texture, without rashes/lesions/ulcerations. LUNGS: Unlabored on room air - negative findings: normal respiratory rate, no cough. NEURO/PSYCH: Oriented to person, place, time; appropriate insight and judgement. Appropriate affect. Diagnostic Tests Reviewed for Today's Visit Most recent lab and imaging results The plan of treatment for Gardenia Mujica is: Further Work-up: EGD: - Montrose-colored mucosa suspicious for short-segment Flaheryt's esophagus. Biopsied. - Normal duodenal bulb, first portion of the duodenum, second portion of the duodenum and third portion of the duodenum. - Patent vertical banded gastroplasty with a pouch greater than 10 cm (measured from 39 cm to 50 cm) in length and intact staple line and band appears loose. Biopsied the gastric antrum. A. Stomach, antrum, biopsy: - Mild chronic gastritis. Immunohistochemical stain for Helicobacter pylori reveals rare staining structures suspicious for organisms. See comment. B. Gastroesophageal junction, biopsy: - Gastr (more content not included)... [facility] 10-28-2023 Nurse Note Left message for patient to return call. Crystal Valente MA [facility] 10-28-2023 Nurse Note Left message for patient to return call. Crystal Valente MA documented in this encounter [facility] 10-28-[address] - 10/28/2023 1:52 PM EDT Chrissy Varner Luna Sil, It was a pleasure meeting with you today and I look forward to continuing to support you on your weight loss journey! You are doing great! Below, are goals for you to work towards for our next visit(s). These are goals that you are required to achieve to obtain your nutrition clearance. Goals aim for 60-90g protein/64 oz fluid 5-7 days per week avoid skipping meals -- using protien shakes as needed eliminate caffeine/carbonation/juice endorse in formal exericse 5-7x/week, goal of 150 mincardio activity journal daily and bring to all appointments update VRT per RD Please note that monthly dietitian appointments will continue (and are required) until your nutrition clearance is obtained. Sandrine Humphries RD October 28, 2023 1:52 PM documented in this encounter [facility] 10-28-2023 History of Present illness Narrative 30 Years Post-op This patient encounter was completed virtually due to COVID-19 (audio/visual) using a secure, HIPPA compliant video chat software program with the patient's consent. I have communicated my name and active licensure. The patients identity and physical location were verified at the time of this visit. Either the patient or their legal hardware supplies sales representative has been informed of the risks and benefits of -- and alternatives to -- treatment through remote evaluation and consents to proceed with the evaluation remotely. Surgery Date/Surgeon:1993 [facility] Gardenia Mujica 58 year old female There were no vitals taken for this visit. Pre-surgical weight:does not recall Tolerating by mouth well: Yes Nausea: No Vomiting: No Constipation: No Diarrhea:No Weak/Shaky/Light-headed: No Estimated Nutrient Intake Average of 3 days' food records: No 24 hour recall/Usual intake: Yes 24 hr recall: B: skipped L: protein shake and banana D: could not recall F:1-2 glasses Food/beverage intolerance: chicken, highly processed foods Exercise: no formal exercise, mainly work and walking dogs Intake of obesity endorsing foods: reports endorsing in sweets Alcohol/Caffeine/Sugar/Carbonation Beverages in Diet: 1 pop per day, Evangeline juice Frequent grazing: mostly on the weekends Satiety between meals: yes Attendance at support group: no Vitamins: MVI: just restarted -- centrum women 50 + -- needs 2 B12: will need to supplement Calcium Citrate: not taking Iron: Vitamin D: 2000 international unit(s) daily Biotin Written information provided and reviewed: Nutrition checklist for clearance/vitamin updates Reinforced Behaviors: see below Patient presents for nutrition visit to establish goals for nutrition clearance - per surgeon for revision surgery (GERD - RYGB). She is not keeping a food journal at this time and is not meeting pro/fluid goals per recall. Reviewed daily goals for protein and fluid as well as avoiding skipping meals - using protein shake for 1 meal as needed. She is not endorsing in a formal exercise routine at this time, reviewed different methods of exercise that will count toward her daily goals. Post-op vitamins reviewed, she will need to update her vitamins as they are not meetings goals post-op at this time. Will send detailed MCM. The patient meets NIH guidelines for weight loss surgery and has been thoroughly evaluated and educated on good dietary practices. Patient is capable of following these guidelines pre-and post-surgically. From nutrition standpoint, the has partially met nutrition clearance and will need to demonstrate track/calculate daily intake via food journal 5-7 days per week, aim for 60-90g pro/64 oz fluid 5-7 days per week, increase formal exercise to 150 min/week (cardio), eliminate caffeine/carbonation/juice, and update VRT per RD to meet goals to receive nutrition clearance. Goals aim for 60-90g protein/64 oz fluid 5-7 days per week avoid skipping meals -- using protien shakes as needed eliminate caffeine/carbonation/juice endorse in formal exericse 5-7x/week, goal of 150 mincardio activity journal daily and bring to all appointments update VRT per RD Total time in direct patient contact = 20 min. Greater than 50% of the time was spent in counseling and/or coordination of care. Sandrine Humphries RD This note was generated using voice recognition technology and may contain grammatical errors. documented in this encounter [facility] 10-28-2023 Note HNO ID: [id number] Author: SANDRINE HUMPHRIES RD Service: ? Author Type: Registered Dietitian Type: Progress Notes Filed: 10/28/2023 13:56 Note Text: 30 Years Post-op This patient encounter was completed virtually due to COVID-19 (audio/visual) using a secure, HIPPA compliant video chat software program with the patient's consent. I have communicated my name and active licensure. The patients identity and physical location were verified at the time of this visit. Either the patient or their legal hardware supplies sales representative has been informed of the risks and benefits of -- and alternatives to -- treatment through remote evaluation and consents to proceed with the evaluation remotely. Surgery Date/Surgeon:1993 [facility] Gardenia Mujica 58 year old female There were no vitals taken for this visit. Pre-surgical weight:does not recall Tolerating by mouth well: Yes Nausea: No Vomiting: No Constipation: No Diarrhea:No Weak/Shaky/Light-headed: No Estimated Nutrient Intake Average of 3 days' food records: No 24 hour recall/Usual intake: Yes 24 hr recall: B: skipped L: protein shake and banana D: could not recall F:1-2 glasses Food/beverage intolerance: chicken, highly processed foods Exercise: no formal exercise, mainly work and walking dogs Intake of obesity endorsing foods: reports endorsing in sweets Alcohol/Caffeine/Sugar/Carbonation Beverages in Diet: 1 pop per day, Evangeline juice Frequent grazing: mostly on the weekends Satiety between meals: yes Attendance at support group: no Vitamins: MVI: just restarted -- centrum women 50 + -- needs 2 B12: will need to supplement Calcium Citrate: not taking Iron: Vitamin D: 2000 international unit(s) daily Biotin Written information provided and reviewed: Nutrition checklist for clearance/vitamin updates Reinforced Behaviors: see below Patient presents for nutrition visit to establish goals for nutrition clearance - per surgeon for revision surgery (GERD - RYGB). She is not keeping a food journal at this time and is not meeting pro/fluid goals per recall. Reviewed daily goals for protein and fluid as well as avoiding skipping meals - using protein shake for 1 meal as needed. She is not endorsing in a formal exercise routine at this time, reviewed different methods of exercise that will count toward her daily goals. Post-op vitamins reviewed, she will need to update her vitamins as they are not meetings goals post-op at this time. Will send detailed MCM. The patient meets NIH guidelines for weight loss surgery and has been thoroughly evaluated and educated on good dietary practices. Patient is capable of following these guidelines pre-and post-surgically. From nutrition standpoint, the has partially met nutrition clearance and will need to demonstrate track/calculate daily intake via food journal 5-7 days per week, aim for 60-90g pro/64 oz fluid 5-7 days per week, increase formal exercise to 150 min/week (cardio), eliminate caffeine/carbonation/juice, and update VRT per RD to meet goals to receive nutrition clearance. Goals aim for 60-90g protein/64 oz fluid 5-7 days per week avoid skipping meals -- using protien shakes as needed eliminate caffeine/carbonation/juice endorse in formal exericse 5-7x/week, goal of 150 mincardio activity journal daily and bring to all appointments update VRT per RD Total time in direct patient contact = 20 min. Greater than 50% of the time was spent in counseling and/or coordination of care. Sandrine Humphries RD This note was generated using voice recognition technology and may contain grammatical errors. [facility] 10-28-2023 Nurse Note Left message for patient to return call. Crystal Valente MA [facility] 10-28-2023 Nurse Note Left message for patient to return call. Crystal Valente MA documented in this encounter [facility] 10-14-2023 History of Present illness Narrative Radiology Service Progress Note PATIENT NAME: Gardenia Mujica DATE OF SERVICE: October 14, 2023 TIME: 2:14 PM PATIENT IDENTITY VERIFICATION COMPLETED USING TWO (2) IDENTIFIERS: Name and Date of confirmed by patient verbally. FALL SCREENING: Has the patient had 2 falls in the last year or 1 fall with injury or currently using an Ambulatory Assistive Device (Walker, Cane, Wheelchair, Crutches, etc.)? No PATIENT GENDER DATA: Female. status: : No status: NO. PATIENT RELEVANT IMPLANT DATA REVIEWED: Not Applicable PATIENT PRESENTS WITH AN IMPLANTABLE OR ATTACHED MEDICARE NURSE: No RADIOLOGY DEPARTMENT: Ultrasound PERIPHERAL IV DATA: Not applicable SIGNED BY: Nayda Thomas RDMS RVT October 14, 2023 2:14 PM documented in this encounter [facility] 10-14-2023 Note HNO ID: [id number] Author: NADYA THOMAS RDMS Service: ? Author Type: Victims Advocate Clerk/Specialist Type: Progress Notes Filed: 10/14/2023 14:14 Note Text: Radiology Service Progress Note PATIENT NAME: Gardenia Mujica DATE OF SERVICE: October 14, 2023 TIME: 2:14 PM PATIENT IDENTITY VERIFICATION COMPLETED USING TWO (2) IDENTIFIERS: Name and Date of confirmed by patient verbally. FALL SCREENING: Has the patient had 2 falls in the last year or 1 fall with injury or currently using an Ambulatory Assistive Device (Walker, Cane, Wheelchair, Crutches, etc.)? No PATIENT GENDER DATA: Female. status: : No status: NO. PATIENT RELEVANT IMPLANT DATA REVIEWED: Not Applicable PATIENT PRESENTS WITH AN IMPLANTABLE OR ATTACHED MEDICARE NURSE: No RADIOLOGY DEPARTMENT: Ultrasound PERIPHERAL IV DATA: Not applicable SIGNED BY: Nadya Thomas RDMS RVT October 14, 2023 2:14 PM [facility] 09-30-2023 Telephone encounter Note Pulmonary Clearance letter sent/faxed to LEOBARDO Griffin RN [facility] 09-30-2023 Miscellaneous Notes Pulmonary Clearance letter sent/faxed to LEOBARDO Griffin RN Cardiac clearance letter sent/faxed to CNP. Mikey Tony RN documented in this encounter [facility] 09-30-2023 Telephone encounter Note Cardiac clearance letter sent/faxed to CNP. Mikey Tony RN [facility] 09-30-2023 Note HNO ID: [id number] Author: JENNIFER SALAS APRN.[email or web address] Service: ? Author Type: Nurse Practitioner Type: Progress Notes Filed: 09/30/2023 11:31 Note Text: BARIATRIC SURGERY CLINIC FOLLOW UP NOTE DISTANCE HEALTH VISIT This Team Access Model visit is a virtual encounter. It required patient-provider interaction for the medical decision making as documented below. Consent was obtained to complete today's distance health visit. I have communicated my name and active licensure. The patient's identity and physical location were verified at the time of this visit. Either the patient or their legal hardware supplies sales representative has been informed of the risks and benefits of -- and alternatives to -- treatment through a remote evaluation and consents to proceed with the evaluation remotely. HPI: Gardenia Mujica a 58 year old female for presents for medically supervised weight loss treatment of her obesity related co morbidities. This individual presents for monthly visits completed as a virtual telephone encounter Gardenia Mujica weight calculation has decreased. She is a patient in the [facility] with Dr. Hernandez with a history of VBG with worsening heartburn and acid regurgitation. She is planning to undergo revision of VBG to RYGB to treat medical refractory GERD. She reports that her heartburn and acid reflux have worsened over the past couple of months. She has been waking up in middle of the night with acid in her mouth and often has to vomit. She is currently taking protonix once per day. Denies recent illnesses and changes to medical history. She has NATO, does have CPAP at home but is not compliant with it every night due to mask intolerance. She is scheduled with pul[facility]ology [facility] this month for pre-op clearance. She takes coumadin for history of aortic valve replacement. She has a data systems manager who manages coumadin to lovenox bridge before procedures. HISTORY REVIEWED (electronic chart updated): - medical history - medications - allergies PAST MEDICAL HISTORY No date: Acute gastritis without mention of hemorrhage 10/05/2008: Aortic regurgitation 06/10/2008: Esophageal reflux No date: Esophagitis, unspecified 04/22/2023: Hiatal hernia Comment: 3 cm on UGI 06/10/2008: MITRAL VALVE DISORDER 03/19/2010: Obstructive sleep apnea 04/29/2010: PTSD (post-traumatic stress disorder) Social: Social History Tobacco Use Smoking status: Never Smokeless tobacco: Never Vaping Use Vaping Use: Never used Substance Use Topics Alcohol use: No Drug use: No Medications: Current Outpatient Medications Medication Sig lisinopril (ZESTRIL) 20 mg tablet Take 30 mg by mouth. valACYclovir (VALTREX) 500 mg tablet Take 1 tablet by mouth once daily. trospium (SANCTURA) 20 mg tablet 20 mg. lysine HCL 1,000 mg tab TAKE BY MOUTH EVERY DAY warfarin (COUMADIN) 3 mg tablet acetaminophen(TYLENOL 325 MG TAB) Take two(2) tablets every four(4) to six(6) hours as needed for pain. bismuth subsalicylate (BISMUTH) 262 mg chewable tablet Take 1 tablet by mouth four times daily for [address] (PROTONIX) 40 mg tablet Take 1 tablet by mouth two times a day for 14 days. (Patient taking differently: Take 40 mg by mouth two times a day. Once a day) cyanocobalamin (VITAMIN B-12) 1,000 mcg tab Take 1,000 mcg by mouth once daily. (Patient not taking: Reported on 07/28/2023) No current facility-administered medications for this visit. REVIEW OF SYSTEMS General: No fatigue or fevers HEENT: Negative for frequent or significant headaches, No changes in hearing or vision, no nose bleeds or other nasal problems PAP Therapy: Uses some nights GI:See HPI Muskuloskeletal: Negative for joint pain or swelling, back pain or muscle pain Skin: Negative for lesions, rash, and itching Psych: Negative for sleep disturbance, mood disorder and recent psychosocial stressors PHYSICAL EXAMINATION Wt 83 kg (183 lb) BMI 31.41 kg/m2 Ht 162.6 cm (5' 4 ) BMI 31.41 kg/m2 GENERAL APPEARANCE: Pleasant, interacts appropriately and in no apparent distress. Appropriately groomed, happy, smiling, and interactive SKIN: Skin of normal texture, temperature without rashes/lesions/ulcerations. LUNGS: unlabored on room air negative findings: normal respiratory rate no cough NEURO/PSYCH: Oriented to person, place, time; appropriate insight and judgement. Appropriate affect. Diagnostic Tests Reviewed for Today's Visit Most recent lab and imaging results The plan of treatment for Gardenia Mujica is Further Work-up: EGD: - Montrose-colored mucosa suspicious for short-segment Flaherty's esophagus. Biopsied. - Normal duodenal bulb, first portion of the duodenum, second portion of the duodenum and third portion of the duodenum. - Patent vertical banded gastroplasty with a pouch greater than 10 cm (measured from 39 cm to 50 cm) in length and intact staple line and band appears loose. Biopsied the gastric antrum. (more content not included)... [facility] 09-30-2023 History of Present illness Narrative BARIATRIC SURGERY CLINIC FOLLOW UP NOTE DISTANCE HEALTH VISIT This Team Access Model visit is a virtual encounter. It required patient-provider interaction for the medical decision making as documented below. Consent was obtained to complete today's distance health visit. I have communicated my name and active licensure. The patient's identity and physical location were verified at the time of this visit. Either the patient or their legal hardware supplies sales representative has been informed of the risks and benefits of -- and alternatives to -- treatment through a remote evaluation and consents to proceed with the evaluation remotely. HPI: Gardenia Mujica a 58 year old female for presents for medically supervised weight loss treatment of her obesity related co morbidities. This individual presents for monthly visits completed as a virtual telephone encounter Gardenia Mujica weight calculation has decreased. She is a patient in the [facility] with Dr. Hernandez with a history of VBG with worsening heartburn and acid regurgitation. She is planning to undergo revision of VBG to RYGB to treat medical refractory GERD. She reports that her heartburn and acid reflux have worsened over the past couple of months. She has been waking up in middle of the night with acid in her mouth and often has to vomit. She is currently taking protonix once per day. Denies recent illnesses and changes to medical history. She has [employer], does have CPAP at home but is not compliant with it every night due to mask intolerance. She is scheduled with pulmonology at the [facility] this month for pre-op clearance. She takes coumadin for history of aortic valve replacement. She has a data systems manager who manages coumadin to lovenox bridge before procedures. HISTORY REVIEWED (electronic chart updated): - medical history - medications - allergies PAST MEDICAL HISTORY No date: Acute gastritis without mention of hemorrhage 10/05/2008: Aortic regurgitation 06/10/2008: Esophageal reflux No date: Esophagitis, unspecified 04/22/2023: Hiatal hernia Comment: 3 cm on UGI 06/10/2008: MITRAL VALVE DISORDER 03/19/2010: Obstructive sleep apnea 04/29/2010: PTSD (post-traumatic stress disorder) Social: Social History Tobacco Use Smoking status: Never Smokeless tobacco: Never Vaping Use Vaping Use: Never used Substance Use Topics Alcohol use: No Drug use: No Medications: Current Outpatient Medications Medication Sig lisinopril (ZESTRIL) 20 mg tablet Take 30 mg by mouth. valACYclovir (VALTREX) 500 mg tablet Take 1 tablet by mouth once daily. trospium (SANCTURA) 20 mg tablet 20 mg. lysine HCL 1,000 mg tab TAKE BY MOUTH EVERY DAY warfarin (COUMADIN) 3 mg tablet acetaminophen(TYLENOL 325 MG TAB) Take two(2) tablets every four(4) to six(6) hours as needed for pain. bismuth subsalicylate (BISMUTH) 262 mg chewable tablet Take 1 tablet by mouth four times daily for [address] (PROTONIX) 40 mg tablet Take 1 tablet by mouth two times a day for 14 days. (Patient taking differently: Take 40 mg by mouth two times a day. Once a day) cyanocobalamin (VITAMIN B-12) 1,000 mcg tab Take 1,000 mcg by mouth once daily. (Patient not taking: Reported on 07/28/2023) No current facility-administered medications for this visit. REVIEW OF SYSTEMS General: No fatigue or fevers HEENT: Negative for frequent or significant headaches, No changes in hearing or vision, no nose bleeds or other nasal problems PAP Therapy: Uses some nights GI:See HPI Muskuloskeletal: Negative for joint pain or swelling, back pain or muscle pain Skin: Negative for lesions, rash, and itching Psych: Negative for sleep disturbance, mood disorder and recent psychosocial stressors PHYSICAL EXAMINATION Wt 83 kg (183 lb) BMI 31.41 kg/m2 Ht 162.6 cm (5' 4 ) BMI 31.41 kg/m2 GENERAL APPEARANCE: Pleasant, interacts appropriately and in no apparent distress. Appropriately groomed, happy, smiling, and interactive SKIN: Skin of normal texture, temperature without rashes/lesions/ulcerations. LUNGS: unlabored on room air negative findings: normal respiratory rate no cough NEURO/PSYCH: Oriented to person, place, time; appropriate insight and judgement. Appropriate affect. Diagnostic Tests Reviewed for Today's Visit Most recent lab and imaging results The plan of treatment for Gardenia Mujica is Further Work-up: EGD: - Montrose-colored mucosa suspicious for short-segment Flaherty's esophagus. Biopsied. - Normal duodenal bulb, first portion of the duodenum, second portion of the duodenum and third portion of the duodenum. - Patent vertical banded gastroplasty with a pouch greater than 10 cm (measured from 39 cm to 50 cm) in length and intact staple line and band appears loose. Biopsied the gastric antrum. A. Stomach, antrum, biopsy: - Mild chronic gastritis. Immunohistochemical stain for Helicobacter pylori reveals rare staining structures suspicious for organisms. See comment. B. Gastroesophageal junction, biopsy: - Gastric type glandular mucosa with chronic gastritis. Immunohistochemical stain for Helicobacter pylori reveals staining structures suspicious for organisms. See comment. Upper GI: IMPRESSION: Postoperative changes involving the stomach. 3 cm hiatal hernia. RUQ US: ordered Sleep Study: Sleep apnea, uses CPAP some nights CXR:per pulmonary clearance EKG:per cardiac clearance H Pylori positive- treated with triple therapy. Repeat stool antigen is negative Labs:ordered Nicotine use <12 months: negative Tox: negative Antiplatelet/anticoagulants: Coumadin Immunosuppressive therapy: No Estrogen therapy: No Evaluations Psychology: ongoing Nutrition: ongoing Education class: ongoing Clearances: Cardiac(need letter from [facility] with coumad[facility] bridge), Pulmonary (10/02 at [facility]), and PCP Risk Calculator: VTE Risk: On coumadin; will need lovenox bridge Post-op Medications: Extended Lovenox: will require bridge from coumadin to lovenox Actigall: NA s/p cholecystectomy H2 taisha/PPI: currently on PPI ASSESSMENT/PLAN: 1. Gastroesophageal reflux disease with esophagitis without hemorrhage - ICD9: 530.81, 530.10, ICD10: K21.00 (primary diagnosis) - Discussed lifestyle modifications including losing weight, limiting caffeine, no meals three hours before sleep, and head of bed elevation - given worsening acid regurgitation at nighttime - will increase protonix to BID. - planned revision of VBG to RYGB to treat medical refractory GERD - PANTOPRAZOLE 40 MG TABLET,DELAYED RELEASE - COMPLETE BLOOD COUNT - COMPREHENSIVE METABOLIC PANEL - FERRITIN - FOLATE, SERUM - HEMOGLOBIN A1C - IRON AND TIBC - LIPID PANEL BASIC - PTH INTACT - THYROID STIMULATING HORMONE - VITAMIN A/RETINOL - VITAMIN B1 (THIAMINE), WHOLE BLOOD - VITAMIN B12 - VITAMIN D 25 HYDROXY - ZINC BLD 2. Helicobacter pylori infection - ICD9: 041.86, ICD10: A04.8 - completed triple therapy and repeat stool antigen was negative 3. Class 1 obesity with serious comorbidity and body mass index (BMI) of 31.0 to 31.9 in adult, unspecified obesity type - ICD9: 278.00, V85.31, ICD10: E66.9, Z68.31 Weight decreasing - Behavioral intervention and - Medical nutrition therapy with dietitian - Nutrition Counseling Practice these: - Eat 3 meals daily--can use approved/recommended protein shake as 1 meal replacement (should be <200 calories, 20-30g protein, <5g added sugar) - Keep a food journal 5-7x/week (consider [employer] or [employer] buddy) and demonstrate meeting protein goal (60-90g protein for females, 70-105g protein for males)- Lean meats, fish, low fat dairy - cottage cheese, Iranian yogurt, light yogurt, cheese, ricotta cheese, nuts, peanut butter, beans/legumes. Eat protein first at all meals. and 64oz of caffeine-free, carbonation-free fluids at least 5 days per week - engage in formal, planned exercise 5x/week for 30 minutes of cardiovascular activity OR 150+ minutes of cardiovascular activity per week - eliminate all caffeine, carbonation, alcohol and sugar-containing beverages from diet --consider sugar-free drink mixes, water, decaf coffee and tea - Separate eating and drinking by 30 minutes - Chew your food 20-30x per bite - Sip beverages slowly--no guzzling or gulping 4. History of bariatric surgery - ICD9: V45.86, ICD10: Z98.84 - COMPLETE BLOOD COUNT - COMPREHENSIVE METABOLIC PANEL - FERRITIN - FOLATE, SERUM - HEMOGLOBIN A1C - IRON AND TIBC - LIPID PANEL BASIC - PTH INTACT - THYROID STIMULATING HORMONE - VITAMIN A/RETINOL - VITAMIN B1 (THIAMINE), WHOLE BLOOD - VITAMIN B12 - VITAMIN D 25 HYDROXY - ZINC BLD 5. History of mechanical aortic valve replacement - ICD9: V43.3, ICD10: Z95.2 - on coumadin - will need bridge from coumadin to lovenox before and after surgery by cardiology - requesting cardiac clearance -- she is going to send me a 3[employer] game platform message with the name of her data systems manager so we can send a letter to their office. 6. NATO (obstructive sleep apnea) - ICD9: 327.23, ICD10: G47.33 - uses CPAP some nights but not every night - discussed the importance of using CPAP nightly before and after surgery and the implications of untreated NATO - requesting pulmonary clearance She does not need to complete full 6 month moris program as she is having revision done due to medical necessity and medical refractory GERD but she will still need to complete some testing and clearances. Still needs labs and RUQ US. Still needs clearance from nutrition, psychology, cardiology, and pulmonology. Follow up with BRAKE MECHANIC in 4 weeks Jennifer Salas [email or web address] Total time in direct patient contact = 30 min. Greater than 50% of the time was spent in counseling and/or coordination of care. This note was generated using voice recognition technology and may contain grammatical errors. Medical Decision Making: Problems: Moderate: 2+ stable chronic illnesses Data: Unique test result(s) reviewed: 2 Unique test(s) ordered: 1 Assessment requiring an independent historian(s) Risk: Minimal: Minimal risk from testing/treatment Moderate: Drug management Medical Decision Making Level: 4 - Moderate documented in this encounter [facility] 08-15-2023 Telephone encounter Note Cardiac clearance letter and EKG request faxed to Inmanrukhsana Washington [facility] 08-15-2023 Miscellaneous Notes Cardiac clearance letter and EKG request faxed to Inmanrukhsana Washington documented in this encounter [facility] 08-01-2023 Telephone encounter Note Images from the original note were not included. [facility] 08-01-2023 Miscellaneous Notes Images from the original note were not included. Called LVM to inform her that yes the [facility] insurance will require Pulm and Cardio clearance for bariatric surgery. As I lso look in her [employer] profile her BMI is too low for bariatric. Gave patient out number incase she wanted to call back with questions. documented in this encounter [facility] 08-01-2023 Telephone encounter Note Called LVM to inform her that yes the [facility] insurance will require Pulm and Cardio clearance for bariatric surgery. As I lso look in her [employer] profile her BMI is too low for bariatric. Gave patient out number incase she wanted to call back with questions. [facility] 07-28-2023 Telephone encounter Note Patient called in asking if Pulmonology clearance is required for their surgery. Patient called the [facility] today and was advised that they could not get in to see a clinical dietician until January - because they have never seen by a clinical dietician. Patient must go through [facility] for all appointments and clearances. 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 Patient advised [employer] insurance will in September 2023 - an extension needs to be asked for - please refer to insurance information. Please reach out to the patient with an update. [facility] 07-28-2023 Miscellaneous Notes Patient called in asking if Pulmonology clearance is required for their surgery. Patient called the [facility] today and was advised that they could not get in to see a clinical dietician until January - because they have never seen by a clinical dietician. Patient must go through [facility] for all appointments and clearances. 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 Patient advised [employer] insurance will in September 2023 - an extension needs to be asked for - please refer to insurance information. Please reach out to the patient with an update. documented in this encounter [facility] 07-28-2023 Telephone encounter Note Set up for moris pearson RD, [place] of [facility] ([id number]) and other [facility] appts SNA New - Mary / [facility] / 6 MO - Lyall Long New - Mo #2 / Mayr / [facility] / 6 MO - Donald [facility] 07-28-2023 Miscellaneous Notes Set up for moris pearson RD, [place] of [facility] ([id number]) and other [facility] appts SNA New - Mary / [facility] / 6 MO - Lyall Long New - Mo #2 / Mary / [facility] / 6 MO - Donald documented in this encounter [facility] 07-28-2023 History of Present illness Narrative SURGICAL SERVICES HISTORY AND PHYSICAL EXAMINATION SERVICE DATE: 07/28/2023 SERVICE TIME: 8:04 AM PRIMARY CARE PHYSICIAN: ISABELLE ALVES SUBJECTIVE CHIEF COMPLAINT: heartburn HISTORY OF PRESENT ILLNESS: Ms. Mujica is a 58 year old female with a PMH of obesity (BMI 32.89 --> 31.96), NATO (has CPAP), aortic regurgitation, PTSD (severe), and GERD presents for follow up of GERD. At the last clinic visit she was struggling with triple therapy for H.pylori and was transitioned to quadruple therapy. At the last visit she was instructed to obtain stool specimen - this was done and came back as negative per her report. But this is not yet scanned into our system as it was completed in [place]. Today she reports that despite the negative h.pylori testing she still is experiencing GERD symptoms of heartburn, nausea, and regurgitation. She remains on Protonix every day and takes additional TUMs as well. 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 10 cm VBG with 11 cm pouch - Lopez: DeMeester 28.6; SAP 95.5 and 98 for heartburn and regurg - Pathology: Stomach, antrum, biopsy: Mild chronic gastritis. Immunohistochemical stain for Helicobacter pylori reveals rare staining structures suspicious for organisms. See comment. Gastroesophageal junction, biopsy: Gastric type glandular mucosa with chronic gastritis. Immunohistochemical stain for Helicobacter pylori reveals staining structures suspicious for organisms. - UGI (04/22/23): 3 cm hiatal hernia - EGD (11/05/22): diffuse gastritis like picture. Hourglass configuration of stomach possible lap band - Pathology: reactive gastropathy - Colonoscopy (02/25/23): normal colonoscopy - CT abd/pelvis (12/07/22): no acute abnormality - CT abd/pelvis (02/11/22): small hiatal hernia. Previous gastric bypass. No acute abdominoplevic process. Per my last clinic note: she reports a 10 year history of nausea, emesis, bloating, abdominal pain. These symptoms are present constantly. Eating makes the symptoms much worse and she states that the abdominal fullness is visible. She believes that oral tolerance has decreased - she is not able to eat anything after 3 pm and chicken noodle soup is about the only thing she can keep down. She endorses severe nearly constant GERD - she consumes bottles and bottles of Tums in addition to Protonix 40 mg at HS. She reports having had a [facility] in [facility] at [facility] [place]. She does not recall the results, but she believes it was slow and she was diagnosed with gastroparesis Social: denies use of tobacco, etoh, or marijuana. 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 Hernandez ABDOMINOPLASTY LIPOSUCTION, BOLA CARLOSCK CHOLECYSTECTOMY 02/15/1992 [facility] EGD TRANSORAL BIOPSY SINGLE/MULTIPLE 10/20/2010 EGD WITH BIOPSY(S) 05/13/2023 VBG with 10 cm pouch; Dr. Hernandez GSTR RSTCV W/O BYP OTH/THN [place]-BANDED GSTP 02/14/1993 [facility] HEART VALVE REPLACEMENT 05/15/2009 mechanical valve, Aortic root, [facility] in [place] Dr. Curiel LIGATE FALLOPIAN TUBE 1991 [place] PAST SURGICAL HISTORY OF 2004 ORIF femur, [facility] TOTAL ABDOMINAL HYSTERECT W/WO RMVL TUBE OVARY 2004 Hysterectomy, LUZ -- ovaries intact, Dr. Luz Garcia in [place] FAMILY HISTORY: FAMILY HISTORY Problem Relation Age of Onset Coronary Artery Disease Mother CAD, no NC; first diagnosed mid-50's? Coronary Artery Disease Maternal Grandmother NC, CAD Coronary Artery Disease Maternal Grandfather NC, CAD None Father UNKNOWN --- Colon Cancer Other none Diabetes Other none Breast Cancer Other none other (ADD [Other]) Son SOCIAL HISTORY: Social History Tobacco Use Smoking status: Never Smokeless tobacco: Never Vaping Use Vaping Use: Never used Substance Use Topics Alcohol use: No Drug use: No MEDICATIONS: Current Outpatient Medications Medication Sig bismuth subsalicylate (BISMUTH) 262 mg chewable tablet Take 1 tablet by mouth four times daily for [address] (PROTONIX) 40 mg tablet Take 1 tablet by mouth two times a day for 14 days. (Patient taking differently: Take 40 mg by mouth two times a day. Once a day) lisinopril (ZESTRIL) 20 mg tablet Take 30 mg by mouth. valACYclovir (VALTREX) 500 mg tablet Take 1 tablet by mouth once daily. trospium (SANCTURA) 20 mg tablet 20 mg. lysine HCL 1,000 mg tab TAKE BY MOUTH EVERY DAY warfarin (COUMADIN) 3 mg tablet acetaminophen(TYLENOL 325 MG TAB) Take two(2) tablets every four(4) to six(6) hours as needed for pain. cyanocobalamin (VITAMIN B-12) 1,000 mcg tab Take 1,000 mcg by mouth once daily. (Patient not taking: Reported on 07/28/2023) No current facility-administered medications for this visit. ALLERGIES: ALLERGIES Allergen Reactions Atorvastatin Other: See Comments Cramp, Generalized aches and pains Rosuvastatin Other: See Comments Cramp, Generalized aches and pains Clarithromycin GI Upset Made ill, nausea, headache Pravachol [Pravasta* Temazepam Other: See Comments Joint and muscle pain and stiffness COMPLETE REVIEW OF SYSTEMS: Review of Systems Constitutional: Negative for chills, diaphoresis, fever and malaise/fatigue. HENT: Negative for congestion, hearing loss, nosebleeds, sinus pain, sore throat and tinnitus. Eyes: Negative for blurred vision, double vision, pain and redness. Respiratory: Positive for cough. Negative for hemoptysis, sputum production, shortness of breath, wheezing and stridor. Cardiovascular: Negative for chest pain, palpitations, orthopnea, leg swelling and PND. Gastrointestinal: Positive for abdominal pain, constipation, heartburn and vomiting. Negative for blood in stool, diarrhea and nausea. Genitourinary: Negative for dysuria, frequency, hematuria and urgency. Musculoskeletal: Negative for back pain, falls, joint pain, myalgias and neck pain. Skin: Negative for itching and rash. Neurological: Negative for dizziness, speech change, focal weakness, seizures, loss of consciousness, weakness and headaches. Endo/Heme/Allergies: Does not bruise/bleed easily. Psychiatric/Behavioral: Negative for depression, hallucinations, memory loss, substance abuse and suicidal ideas. The patient is not nervous/anxious and does not have insomnia. OBJECTIVE PHYSICAL EXAM: BP 126/72 Pulse 68 Ht 5' 4 (1.63m) Wt 186 lb 3.2 oz (84.5kg) BMI 31.95 kg/(m^2). Physical Exam Vitals reviewed. Constitutional: Appearance: Normal appearance. She is obese. HENT: Head: Normocephalic and atraumatic. Nose: Nose normal. Eyes: General: No scleral icterus. Extraocular Movements: Extraocular movements intact. Conjunctiva/sclera: Conjunctivae normal. Pupils: Pupils are equal, round, and reactive to light. Pulmonary: Effort: Pulmonary effort is normal. No respiratory distress. Skin: General: Skin is warm and dry. Coloration: Skin is not jaundiced or pale. Neurological: Mental Status: She is alert and oriented to person, place, and time. Psychiatric: Mood and Affect: Mood normal. Behavior: Behavior normal. DATA: Diagnostic tests reviewed for today's visit: EMR reviewed Plan ASSESSMENT AND PLAN Gardenia Mujica is a 58 year old female with a PMH as noted above who presents with severe ongoing GERD. ASSESSMENT/PLAN: 1. Gastroesophageal reflux disease with esophagitis without hemorrhage - ICD9: 530.81, 530.10, ICD10: K21.00 (primary diagnosis) - As we have discussed previously - as she continues to experience symptoms of reflux, nausea, and emesis after treatment of h.pylori and retesting, we are going to plan on a conversion of VBG to RYGB to address the severe GERD symptoms and the positive GERD findings on the recent LOPEZ testing. In order to prepare for this upcoming surgery I want her to see the bariatric psych and bariatric RD. She will also need to see the bariatric BRAKE MECHANIC to ensure all clearances and testing are complete. - Discussed lifestyle modifications including losing weight, limiting caffeine, no meals three hours before sleep, and head of bed elevation - Continue treatment with Protonix 40 mg QD - US ABD RIGHT UPPER QUADRANT - TOXICOLOGY SCREEN, ROUTINE URINE - NICOTINE & METAB, UR 2. Helicobacter pylori infection - ICD9: 041.86, ICD10: A04.8 - Now negative per stool. Will need actual test results 3. Class 1 obesity with serious comorbidity and body mass index (BMI) of 31.0 to 31.9 in adult, unspecified obesity type - ICD9: 278.00, V85.31, ICD10: E66.9, Z68.31 4. History of bariatric surgery - ICD9: V45.86, ICD10: Z98.84 - History of VBG with severe ongoing GERD 5. History of mechanical aortic valve replacement - ICD9: V43.3, ICD10: Z95.2 - Continue coumadin - Will need cardiac presurgical optimization and guidance on Coumadin pre and post operatively 6. NATO (obstructive sleep apnea) - ICD9: 327.23, ICD10: G47.33 - Now has CPAP machine, will need clearances from 7. Nutritional anemia - ICD9: 281.9, ICD10: D53.9 - THYROID STIMULATING HORMONE Medical Decision Making: Problems: Moderate: 2+ stable chronic illnesses Data: Unique test result(s) reviewed: 3+ Risk: Moderate: Drug management High: Decision on elective major surgery w/ risk factors Medical Decision Making Level: 4 - Moderate SIGNATURE: Jayashree Hernandez MD PATIENT NAME: Gardenia Mujica DATE: July 28, 2023 TIME: 8:04 AM PAGER/CONTACT #: [id number] documented in this encounter [facility] 07-28-2023 Note HNO ID: [id number] Author: JAYASHREE HERNANDEZ MD Service: ? Author Type: Physician Type: Progress Notes Filed: 07/28/2023 08:25 Note Text: SURGICAL SERVICES HISTORY AND PHYSICAL EXAMINATION SERVICE DATE: 07/28/2023 SERVICE TIME: 8:04 AM PRIMARY CARE PHYSICIAN: ISABELLE ALVES SUBJECTIVE CHIEF COMPLAINT: heartburn HISTORY OF PRESENT ILLNESS: Ms. Mujica is a 58 year old female with a PMH of obesity (BMI 32.89 --> 31.96), NATO (has CPAP), aortic regurgitation, PTSD (severe), and GERD presents for follow up of GERD. At the last clinic visit she was struggling with triple therapy for H.pylori and was transitioned to quadruple therapy. At the last visit she was instructed to obtain stool specimen - this was done and came back as negative per her report. But this is not yet scanned into our system as it was completed in [place]. Today she reports that despite the negative h.pylori testing she still is experiencing GERD symptoms of heartburn, nausea, and regurgitation. She remains on Protonix every day and takes additional TUMs as well. 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 10 cm VBG with 11 cm pouch - Lopez: DeMeester 28.6; SAP 95.5 and 98 for heartburn and regurg - Pathology: Stomach, antrum, biopsy: Mild chronic gastritis. Immunohistochemical stain for Helicobacter pylori reveals rare staining structures suspicious for organisms. See comment. Gastroesophageal junction, biopsy: Gastric type glandular mucosa with chronic gastritis. Immunohistochemical stain for Helicobacter pylori reveals staining structures suspicious for organisms. - UGI (04/22/23): 3 cm hiatal hernia - EGD (11/05/22): diffuse gastritis like picture. Hourglass configuration of stomach possible lap band - Pathology: reactive gastropathy - Colonoscopy (02/25/23): normal colonoscopy - CT abd/pelvis (12/07/22): no acute abnormality - CT abd/pelvis (02/11/22): small hiatal hernia. Previous gastric bypass. No acute abdominoplevic process. Per my last clinic note: she reports a 10 year history of nausea, emesis, bloating, abdominal pain. These symptoms are present constantly. Eating makes the symptoms much worse and she states that the abdominal fullness is visible. She believes that oral tolerance has decreased - she is not able to eat anything after 3 pm and chicken noodle soup is about the only thing she can keep down. She endorses severe nearly constant GERD - she consumes bottles and bottles of Tums in addition to Protonix 40 mg at HS. She reports having had a GES in [facility] past at the [facility] in [place]. She does not recall the results, but she believes it was slow and she was diagnosed with gastroparesis Social: denies use of tobacco, etoh, or marijuana. 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 Hernandez ABDOMINOPLASTY LIPOSUCTION, TUMMY TUCK CHOLECYSTECTOMY 02/15/1992 [place] EGD TRANSORAL BIOPSY SINGLE/MULTIPLE 10/20/2010 EGD WITH BIOPSY(S) 05/13/2023 VBG with 10 cm pouch; Dr. Hernandez GSTR RSTCV W/O BYP OTH/THN [place]-BANDED GSTP 02/14/1993 [facility] HEART VALVE REPLACEMENT 05/15/2009 mechanical valve, Aortic root, [facility] in [place] Dr. Curiel LIGATE FALLOPIAN TUBE 1991 [place] PAST SURGICAL HISTORY OF 2004 ORIF femur, [facility] TOTAL ABDOMINAL HYSTERECT W/WO RMVL TUBE OVARY 2005 Hysterectomy, LUZ -- ovaries intact, Dr. Luz Garcia in [place] FAMILY HISTORY: FAMILY HISTORY Problem Relation Age of Onset Coronary Artery Disease Mother CAD, no NC; first diagnosed mid-50's? Coronary Artery Disease Maternal Grandmother NC, CAD Coronary Artery Disease Maternal Grandfather NC, CAD None Father UNKNOWN --- Colon Cancer Other none Diabetes Other none Breast Cancer Other none other (ADD [Other]) Son SOCIAL HISTORY: Social History Tobacco Use Smoking status: Never Smokeless tobacco: Never Vaping Use Vaping Use: Never used Substance Use Topics Alcohol use: No Drug use: No MEDICATIONS: Current Outpatient Medications Medication Sig bismuth subsalicylate (BISMUTH) 262 mg chewable tablet Take 1 tablet by mouth four times daily for [address] (PROTONIX) 40 mg tablet Take 1 tablet by mouth two times a day for 14 days. (Patient taking differently: Take 40 mg by mouth two times a day. Once a day) l (more content not included)... [facility] 06-10-2023 Telephone encounter Note Called patient to talk about her benefits. Since she [facility] because she is having complications ( [facility]ERD ) they would pay for the revision if its billed under GERD. There was not a number to call the [facility]. But patient did stated they would cover it. [facility] 06-10-2023 Miscellaneous Notes Called patient to talk about her benefits. Since she had a Gastric Plasty in [facility] early the [facility] told [facility] that because she is having complications ( GERD ) they would pay for the revision if its billed under GERD. There was not a number to call the [facility]. But patient did stated they would cover it. documented in this encounter [facility] 05-27-2023 Miscellaneous Notes Checkout notes per Dr. Hernandez this can be virtual Follow-up disposition: Return in about 8 weeks (around 07/22/2023). Patient will call next week to schedule once she reviews her calendar. Lisa Combs MA documented in this encounter [facility] 05-27-2023 Note HNO ID: [id number] Author: JAYASHREE HERNANDEZ MD Service: ? Author Type: Physician Type: Progress Notes Filed: 05/27/2023 12:40 Note Text: SURGICAL SERVICES HISTORY AND PHYSICAL EXAMINATION SERVICE DATE: 05/27/2023 SERVICE TIME: 10:08 AM PRIMARY CARE PHYSICIAN: ISABELLE ALVES SUBJECTIVE CHIEF COMPLAINT: follow up after testing HISTORY OF PRESENT ILLNESS: Ms. Mujica is a 57 year old female with a PMH of obesity (BMI 32.89), NATO (getting fitted for CPAP), aortic regurgitation, PTSD (severe), and GERD who presents for follow up after testing. Today she reports having initial issues with triple therapy with drug reactions. We transitioned her to quadruple therapy on Tuesday and she started this medication at that time. She has noted no change in her symptoms since starting medications. 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 10 cm VBG with 11 cm pouch - Lopez: DeMeester 28.6; SAP 95.5 and 98 for heartburn and regurg - Pathology: Stomach, antrum, biopsy: Mild chronic gastritis. Immunohistochemical stain for Helicobacter pylori reveals rare staining structures suspicious for organisms. See comment. Gastroesophageal junction, biopsy: Gastric type glandular mucosa with chronic gastritis. Immunohistochemical stain for Helicobacter pylori reveals staining structures suspicious for organisms. - UGI (04/22/23): 3 cm hiatal hernia - EGD (11/05/22): diffuse gastritis like picture. Hourglass configuration of stomach possible lap band - Pathology: reactive gastropathy - Colonoscopy (02/25/23): normal colonoscopy - CT abd/pelvis (12/07/22): no acute abnormality - CT abd/pelvis (02/11/22): small hiatal hernia. Previous gastric bypass. No acute abdominoplevic process. Per my last clinic note: she reports a 10 year history of nausea, emesis, bloating, abdominal pain. These symptoms are present constantly. Eating makes the symptoms much worse and she states that the abdominal fullness is visible. She believes that oral tolerance has decreased - she is not able to eat anything after 3 pm and chicken noodle soup is about the only thing she can keep down. She endorses severe nearly constant GERD - she consumes bottles and bottles of Tums in addition to Protonix 40 mg at HS. She reports having had a GES in the past at the [facility] in [place]. She does not recall the results, but she believes it was slow and she was diagnosed with gastroparesis Social: denies use of tobacco, etoh, or marijuana. 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 Hernandez ABDOMINOPLASTY LIPOSUCTION, TUMMY TUCK CHOLECYSTECTOMY 02/15/1992 [facility] EGD TRANSORAL BIOPSY SINGLE/MULTIPLE 10/20/2010 EGD WITH BIOPSY(S) 05/13/2023 VBG with 10 cm pouch; Dr. Hernandez GSTR RSTCV W/O BYP OTH/THN [place]-BANDED GSTP 02/14/1993 [facility] HEART VALVE REPLACEMENT 05/15/2009 mechanical valve, Aortic root, [facility] in [place] Dr. Curiel LIGATE FALLOPIAN TUBE 1991 [place] PAST SURGICAL HISTORY OF 2004 ORIF femur, [facility] TOTAL ABDOMINAL HYSTERECT W/WO RMVL TUBE OVARY 2004 Hysterectomy, LUZ -- ovaries intact, Dr. Luz Garcia in [place] FAMILY HISTORY: FAMILY HISTORY Problem Relation Age of Onset Coronary Artery Disease Mother CAD, no NC; first diagnosed mid-50's? Coronary Artery Disease Maternal Grandmother NC, CAD Coronary Artery Disease Maternal Grandfather NC, CAD None Father UNKNOWN --- Colon Cancer Other none Diabetes Other none Breast Cancer Other none other (ADD [Other]) Son SOCIAL HISTORY: Social History Tobacco Use Smoking status: Never Smokeless tobacco: Never Vaping Use Vaping Use: Never used Substance Use Topics Alcohol use: No Drug use: No MEDICATIONS: Current Outpatient Medications Medication Sig bismuth subsalicylate (BISMUTH) 262 mg chewable tablet Take 1 tablet by mouth four times daily for 14 days. metroNIDAZOLE (FLAGYL) 250 mg tablet Take 1 tablet by mouth four times daily for 14 days. tetracycline (SUMYCIN) 500 mg cap Take 1 capsule by mouth before meals and at bedtime for [address] (PROTONIX) 40 mg tablet Take 1 tablet by mouth two times a day for 14 days. Amoxicillin 500 mg tablet Take 2 tablets by mouth two times a day for 14 days. lisinopril (ZESTRIL) 20 mg tablet Take 20 mg by mouth. luz (more content not included)... [facility] 05-27-2023 History of Present illness Narrative SURGICAL SERVICES HISTORY AND PHYSICAL EXAMINATION SERVICE DATE: 05/27/2023 SERVICE TIME: 10:08 AM PRIMARY CARE PHYSICIAN: ISABELLE ALVES SUBJECTIVE CHIEF COMPLAINT: follow up after testing HISTORY OF PRESENT ILLNESS: Ms. Mujica is a 57 year old female with a PMH of obesity (BMI 32.89), NATO (getting fitted for CPAP), aortic regurgitation, PTSD (severe), and GERD who presents for follow up after testing. Today she reports having initial issues with triple therapy with drug reactions. We transitioned her to quadruple therapy on Tuesday and she started this medication at that time. She has noted no change in her symptoms since starting medications. 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 10 cm VBG with 11 cm pouch - Lopez: DeMeester 28.6; SAP 95.5 and 98 for heartburn and regurg - Pathology: Stomach, antrum, biopsy: Mild chronic gastritis. Immunohistochemical stain for Helicobacter pylori reveals rare staining structures suspicious for organisms. See comment. Gastroesophageal junction, biopsy: Gastric type glandular mucosa with chronic gastritis. Immunohistochemical stain for Helicobacter pylori reveals staining structures suspicious for organisms. - UGI (04/22/23): 3 cm hiatal hernia - EGD (11/05/22): diffuse gastritis like picture. Hourglass configuration of stomach possible lap band - Pathology: reactive gastropathy - Colonoscopy (02/25/23): normal colonoscopy - CT abd/pelvis (12/07/22): no acute abnormality - CT abd/pelvis (02/11/22): small hiatal hernia. Previous gastric bypass. No acute abdominoplevic process. Per my last clinic note: she reports a 10 year history of nausea, emesis, bloating, abdominal pain. These symptoms are present constantly. Eating makes the symptoms much worse and she states that the abdominal fullness is visible. She believes that oral tolerance has decreased - she is not able to eat anything after 3 pm and chicken noodle soup is about the only thing she can keep down. She endorses severe nearly constant GERD - she consumes bottles and bottles of Tums in addition to Protonix 40 mg at HS. She reports having had a GES in the past at the [facility] in [place]. She does not recall the results, but she believes it was slow and she was diagnosed with gastroparesis Social: denies use of tobacco, etoh, or marijuana. 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 Hernandez ABDOMINOPLASTY LIPOSUCTION, TUMMY TUCK CHOLECYSTECTOMY 02/15/1992 [place] EGD TRANSORAL BIOPSY SINGLE/MULTIPLE 10/20/2010 EGD WITH BIOPSY(S) 05/13/2023 VBG with 10 cm pouch; Dr. Hernandez GSTR RSTCV W/O BYP OTH/THN [place]-BANDED GSTP 02/14/1993 [employer] HEART VALVE REPLACEMENT 05/15/2009 mechanical valve, Aortic root, [facility] in [place] Dr. Curiel LIGKATHY FALLOPIAN TUBE 1991 [place] PAST SURGICAL HISTORY OF 2004 ORIF femur, [facility] [place] TOTAL ABDOMINAL HYSTERECT W/WO RMVL TUBE OVARY 2004 Hysterectomy, LUZ -- ovaries intact, Dr. Luz Garcia in [place] FAMILY HISTORY: FAMILY HISTORY Problem Relation Age of Onset Coronary Artery Disease Mother CAD, no NC; first diagnosed mid-50's? Coronary Artery Disease Maternal Grandmother NC, CAD Coronary Artery Disease Maternal Grandfather NC, CAD None Father UNKNOWN --- Colon Cancer Other none Diabetes Other none Breast Cancer Other none other (ADD [Other]) Son SOCIAL HISTORY: Social History Tobacco Use Smoking status: Never Smokeless tobacco: Never Vaping Use Vaping Use: Never used Substance Use Topics Alcohol use: No Drug use: No MEDICATIONS: Current Outpatient Medications Medication Sig bismuth subsalicylate (BISMUTH) 262 mg chewable tablet Take 1 tablet by mouth four times daily for 14 days. metroNIDAZOLE (FLAGYL) 250 mg tablet Take 1 tablet by mouth four times daily for 14 days. tetracycline (SUMYCIN) 500 mg cap Take 1 capsule by mouth before meals and at bedtime for [address] (PROTONIX) 40 mg tablet Take 1 tablet by mouth two times a day for 14 days. Amoxicillin 500 mg tablet Take 2 tablets by mouth two times a day for 14 days. lisinopril (ZESTRIL) 20 mg tablet Take 20 mg by mouth. valACYclovir (VALTREX) 500 mg tablet Take 1 tablet by mouth once daily. trospium (SANCTURA) 20 mg tablet 20 mg. lysine HCL 1,000 mg tab TAKE BY MOUTH EVERY DAY cyanocobalamin (VITAMIN B-12) 1,000 mcg tab Take 1,000 mcg by mouth once daily. warfarin (COUMADIN) 3 mg tablet acetaminophen(TYLENOL 325 MG TAB) Take two(2) tablets every four(4) to six(6) hours as needed for pain. clarithromycin (BIAXIN) 500 mg Take 1 tablet by mouth two times a day for 14 days. (Patient not taking: Reported on 05/27/2023) No current facility-administered medications for this visit. ALLERGIES: ALLERGIES Allergen Reactions Atorvastatin Other: See Comments Cramp, Generalized aches and pains Rosuvastatin Other: See Comments Cramp, Generalized aches and pains Clarithromycin GI Upset Made ill, nausea, headache Pravachol [Pravasta* Temazepam Other: See Comments Joint and muscle pain and stiffness COMPLETE REVIEW OF SYSTEMS: Review of Systems Constitutional: Negative for chills, diaphoresis, fever and malaise/fatigue. HENT: Negative for congestion, hearing loss, nosebleeds, sinus pain, sore throat and tinnitus. Eyes: Negative for blurred vision, double vision, pain and redness. Respiratory: Positive for cough. Negative for hemoptysis, sputum production, shortness of breath and wheezing. Cardiovascular: Negative for chest pain, palpitations, orthopnea, leg swelling and PND. Gastrointestinal: Positive for abdominal pain, constipation, heartburn and vomiting. Negative for blood in stool, diarrhea and nausea. Genitourinary: Negative for dysuria, frequency, hematuria and urgency. Musculoskeletal: Negative for back pain, falls, joint pain, myalgias and neck pain. Skin: Negative for itching and rash. Neurological: Negative for dizziness, speech change, focal weakness, seizures, loss of consciousness, weakness and headaches. Endo/Heme/Allergies: Does not bruise/bleed easily. Psychiatric/Behavioral: Negative for depression, hallucinations, memory loss, substance abuse and suicidal ideas. The patient is not nervous/anxious and does not have insomnia. OBJECTIVE PHYSICAL EXAM: BP 134/80 Pulse 70 Ht 5' 4 (1.63m) Wt 193 lb 3.2 oz (87.6kg) BMI 33.15 kg/(m^2). Physical Exam Vitals reviewed. Constitutional: Appearance: Normal appearance. She is obese. HENT: Head: Normocephalic and atraumatic. Nose: Nose normal. Eyes: General: No scleral icterus. Extraocular Movements: Extraocular movements intact. Conjunctiva/sclera: Conjunctivae normal. Pupils: Pupils are equal, round, and reactive to light. Cardiovascular: Rate and Rhythm: Normal rate. Pulmonary: Effort: Pulmonary effort is normal. No respiratory distress. Skin: General: Skin is warm and dry. Coloration: Skin is not jaundiced or pale. Neurological: Mental Status: She is alert and oriented to person, place, and time. Psychiatric: Mood and Affect: Mood normal. Behavior: Behavior normal. DATA: Diagnostic tests reviewed for today's visit: EMR reviewed Plan ASSESSMENT AND PLAN Gardenia Mujica is a 57 year old female with a PMH as noted above who presents in follow up after recent testing with GERD in setting of VBG and newly diagnosed H.pylori ASSESSMENT/PLAN: 1. Helicobacter pylori infection - ICD9: 041.86, ICD10: A04.8 (primary diagnosis) - Treat and then retest for H.pylori - Once she has completed the treatment, we will need to retest for H pylori through a stool sample. She will need to be off of the antibiotics for 4 weeks and protonix for 2 weeks before submitting the sample. Not being off of these meds can cause a false positive. - HELICOBACTER PYLORI ANTIGEN BY EIA, STOOL 2. Gastroesophageal reflux disease without esophagitis - ICD9: 530.81, ICD10: K21.9 - We discussed testing findings - consistent with pathologic GERD via LOPEZ. - Discussed lifestyle modifications including losing weight, limiting caffeine, no meals three hours before sleep, and head of bed elevation - Continue treatment with PPI after retesting for H. pylori 3. History of bariatric surgery - ICD9: V45.86, ICD10: Z98.84 - Intact VBG noted on EGD - We discussed that if she continues to experience symptoms of reflux, nausea, and emesis after treatment of h.pylori and retesting, then we will discuss conversion of VBG to RYGB to address the GERD symptoms and the positive GERD findings on the recent LOPEZ testing. 4. Hx of aortic valve replacement, mechanical - ICD9: V43.3, ICD10: Z95.2 - Continue Coumadin 5. NATO (obstructive sleep apnea) - ICD9: 327.23, ICD10: G47.33 - She has been diagnosed with NATO and is following up for fitting in the near future 6. Class 1 obesity with serious comorbidity and body mass index (BMI) of 33.0 to 33.9 in adult, unspecified obesity type - ICD9: 278.00, V85.33, ICD10: E66.9, Z68.33 - We discussed the importance of weight loss in the setting of GERD symptoms. - We discussed that if she continues to experience symptoms of reflux, nausea, and emesis after treatment of h.pylori and retesting, then we will discuss conversion of VBG to RYGB to address the GERD symptoms and the positive GERD findings on the recent LOPEZ testing. - Send Bariatric seminar Medical Decision Making: Problems: Moderate: 2+ stable chronic illnesses Data: Unique test result(s) reviewed: 3+ Unique test(s) ordered: 1 Discussed management or test w/ external physician/QHCP/source Risk: Moderate: Drug management Medical Decision Making Level: 4 - Moderate SIGNATURE: Jayashree Hernandez MD PATIENT NAME: Gardenia Mujica DATE: May 27, 2023 TIME: 10:08 AM PAGER/CONTACT #: [phone] documented in this encounter [facility] 05-23-2023 Miscellaneous Notes Addended by: JENNIFER SALAS on: 05/23/2023 08:53 AM Modules accepted: Orders RXs sent to [facility] Per her request. Jennifer Salas APRN.[facility] not [facility] they do have clarithromycin and doxycycline tablets. If you want her to have one of them. Irene Washington MA documented in this encounter [facility] 05-17-2023 Note HNO ID: [id number] Author: JENNIFER SALAS APRN.CNP Service: ? Author Type: Nurse Practitioner Type: Progress Notes Filed: 05/17/2023 11:21 Note Text: Called outpatient pharmacy, spoke to Andrew- pharmacist about H pylori treatment antibiotics interacting with coumadin. There is no other option that will not increase bleeding risk while on coumadin, so patient may need to have INR monitored more closely and dose adjusted while on these antibiotics. There is no complete contraindication to taking clarithromycin with coumadin. Called patient to review H pylori results and treatment. I relayed information about INR and coumadin to her in regard to antibiotics. She will contact the pharmacist at the [facility] who manages her coumadin. I will ask my office to reach out there as well. She is going to call the office back with their phone number. She is aware to not start taking the antibiotics until she speaks with coumadin clinic Jennifer Salas APRN.ANDRZEJ [facility] 05-17-2023 History of Present illness Narrative Called outpatient pharmacy, spoke to Andrew- pharmacist about H pylori treatment antibiotics interacting with coumadin. There is no other option that will not increase bleeding risk while on coumadin, so patient may need to have INR monitored more closely and dose adjusted while on these antibiotics. There is no complete contraindication to taking clarithromycin with coumadin. Called patient to review H pylori results and treatment. I relayed information about INR and coumadin to her in regard to antibiotics. She will contact the pharmacist at the [facility] who manages her coumadin. I will ask my office to reach out there as well. She is going to call the office back with their phone number. She is aware to not start taking the antibiotics until she speaks with coumadin clinic Jennifer Salas APRN.TIRE SETTER documented in this encounter [facility] 04-22-2023 Miscellaneous Notes Radiology Service Progress Note PATIENT NAME: Gardenia Mujica DATE OF SERVICE: April 22, 2023 TIME: 8:29 AM PATIENT IDENTITY VERIFICATION COMPLETED USING TWO (2) IDENTIFIERS: Name and Date of confirmed by patient verbally and Name and Date of confirmed by identification band. FALL SCREENING: Has the patient had 2 falls in the last year or 1 fall with injury or currently using an Ambulatory Assistive Device (Walker, Cane, Wheelchair, Crutches, etc.)? No PATIENT GENDER DATA: Female. status: : No status: NO. PATIENT RELEVANT IMPLANT DATA REVIEWED: Not Applicable PATIENT PRESENTS WITH AN IMPLANTABLE OR ATTACHED MEDICARE NURSE: No RADIOLOGY DEPARTMENT: General X-ray: Exam(s) Completed: GI/ Procedure(s): Upper GI with barium contrast PERIPHERAL IV DATA: Not applicable SIGNED BY: RT Park(R) April 22, 2023 8:29 AM documented in this encounter [facility] 04-01-2023 Hospital Discharge instructions Patient Education 04/01/2023 09:40:44 Cat Bite Cat Bite A cat bite can cause a wound deep enough to break the skin. In such cases, the wound is cleaned and then sometimes closed. If the wound is closed it is usually not closed completely. This is so that fluid can drain if the wound becomes infected. Often the wound is left open to heal. In addition to wound care, a tetanus shot may be given, if needed. Home care Wash your hands well with soap and warm water before and after caring for the wound. This helps lower the risk of infection. Care for the wound as directed. If a dressing was applied to the wound, be sure to change it as directed. If the wound bleeds, place a clean, soft cloth on the wound. Then firmly apply pressure until the bleeding stops. This may take up to 5 minutes. Don't release the pressure and look at the wound during this time. Always get medical attention for cat bites on the hand. They are highly likely to become infected. Most wounds heal within 10 days. But an infection can occur even with proper treatment. So be sure to check the wound daily for signs of infection (see below). Antibiotics may be prescribed. These help prevent or treat infection. If you re given antibiotics, take them as directed. Also be sure to complete the medicines. Rabies prevention Rabies is a virus that can be carried in certain animals. These can include domestic animals such as cats and dogs. Pets fully vaccinated against rabies (2 shots) are at very low risk of infection. But because human rabies is almost always fatal, any biting pet should be confined for 10 days as an extra precaution. In general, if there is a risk for rabies, the following steps may need to be taken: If someone s pet cat has bitten you, it should be kept in a secure area for the next 10 days to watch for signs of illness. If the pet hot knife foxing cutter won t allow this, contact your local animal control center. If the cat becomes ill or dies during that time, contact your local animal control center at once so the animal may be tested for rabies. If the cat stays healthy for the next 10 days, there is no danger of rabies in the animal or you. If a stray cat bit you, contact your local animal control center. They can give information on capture, quarantine, and animal rabies testing. If you can t find the animal that bit you in the next 2 days, and if rabies exists in your area, you may need to receive the rabies vaccine series. Call your healthcare provider right away. Or return to the emergency department promptly. All animal bites should be reported to the local animal control center. If you were not given a form to fill out, you can report this yourself. Follow-up care Follow up with your healthcare provider, or as directed. When to seek medical advice Call your healthcare provider right away if any of these occur: Signs of infection: oSpreading redness or warmth from the wound oIncreased pain or swelling oFever of 100.4 F (38 C) or higher, or as directed by your healthcare provider oColored fluid or pus draining from the wound oEnlarged lymph nodes above the area that was bitten, such as lymph nodes in the armpit if you were bitten on the hand or arm. This may be a sign of cat-scratch disease (cat-scratch fever). Signs of rabies infection: oHeadache oConfusion oStrange behavior oIncreased salivating or drooling oSeizure Decreased ability to move any body part near the bite area Bleeding that can't be stopped after 5 minutes of firm pressure [id number] [employer]. [address] [place] [address]. All rights reserved. This information is not intended as a substitute for professional medical care. Always follow your healthcare professional's instructions. Follow Up Care 04/01/2023 09:19:57 With:[facility] Address: [address] [place], [place] [address] [address]- When:2-4 days [facility] 04-01-2023 Note Discharge Instructions Thank you for allowing [facility] to assist you with your healthcare needs. The following is important discharge information regarding your hospital visit. Diagnosis from Today's Visit Cat bite Cat bite: hand What to Do Next Instructions from Your Care Team No qualifying data available. Post Acute Orders No qualifying data available. You Need to Schedule the Following Appointments Follow Up with [facility] When Within 2-4 days Where: [address] [place] [place] [address] Allergies NKA Medications Please ask your primary doctor or pharmacist before taking any other medication not listed, including over the counter drugs, herbal medications, vitamins and or supplements as they may interact with your home medications. What How Much When Instructions Last Dose New amoxicillin-clavulanate (amoxicillin-clavulanate 875 mg-125 mg oral tablet) 1 tab(s) by mouth Every 12 hours Duration: 10 Days Printed Prescription Unchanged lisinopril (lisinopril 20 mg oral tablet) 1 tab(s) by mouth Every day Unchanged pantoprazole (Protonix 40 mg oral enteric coated tablet) 2 tab(s) by mouth Two (2) times a day Unchanged sucralfate (sucralfate 1 g oral tablet) 1 tab(s) by mouth Three (3) times a day Duration: 30 Days Unchanged warfarin (Coumadin) 3 Milligram by mouth Once a day Please take this list to your next doctor s visit. Bring all medications you take, including over the counter medications, herbals and other supplements with you to your doctor s visit. Patients and families are reminded to discard old lists and to update any records with all medication providers or retail pharmacies. Medication Leaflets amoxicillin and clavulanate potassium (am OK i SARAH in KLNASIM ue IVAN kathy raji JASEN [facility]) Augmentin What is the most important information I should know about amoxicillin and clavulanate potassium? You should not use this medicine if you have severe kidney disease, if you have had liver problems or jaundice while taking amoxicillin and clavulanate potassium, or if you are allergic to any penicillin or cephalosporin antibiotic, such as Amoxil, Ceftin, Cefzil, Moxatag, Omnicef, and others. What is amoxicillin and clavulanate potassium? Amoxicillin is a penicillin antibiotic. Clavulanate potassium helps prevent certain bacteria from becoming resistant to amoxicillin. Amoxicillin and clavulanate potassium is a combination medicine used to treat many different infections caused by bacteria, such as sinusitis, pneumonia, ear infections, bronchitis, urinary tract infections, and infections of the skin. Amoxicillin and clavulanate potassium may also be used for purposes not listed in this medication guide. What should I discuss with my healthcare provider before taking amoxicillin and clavulanate potassium? You should not use this medicine if you are allergic to it, or if: you have severe kidney disease (or if you are on dialysis); you have had liver problems or jaundice while taking amoxicillin and clavulanate potassium; or you are allergic to any penicillin or cephalosporin antibiotic, such as Amoxil, Ceftin, Cefzil, Moxatag, Omnicef, and others. Tell your doctor if you have ever had: liver disease (hepatitis or jaundice); kidney disease; or mononucleosis. The liquid or chewable tablet may contain phenylalanine. Tell your doctor if you have phenylketonuria (PKU). Tell your doctor if you are or . Amoxicillin and clavulanate potassium can make control pills less effective. Ask your doctor about using a non-hormonal control (condom, diaphragm, cervical cap, or contraceptive sponge) to prevent . Do not give this medicine to a child without medical advice. How should I take amoxicillin and clavulanate potassium? Follow all directions on your prescription label and read all medication guides or instruction sheets. Use the medicine exactly as directed. Amoxicillin and clavulanate potassium may work best if you take it at the start of a meal. Take the medicine every 12 hours. Do not crush or chew the extended-release tablet. Swallow the pill whole, or break the pill in half and take both halves one at a time. Tell your doctor if you have trouble swallowing a whole or half pill. You must chew the chewable tablet before you swallow it. Shake the oral suspension (liquid) before you measure a dose. Use the dosing syringe provided, or use a medicine dose-measuring device (not a kitchen spoon). This medicine can affect the results of certain medical tests. Tell any doctor who treats you that you are using amoxicillin and clavulanate potassium. Use this medicine for the full prescribed length of time, even if your symptoms quickly improve. Skipping doses can increase your risk of infection that is resistant to medication. Amoxicillin and clavulanate potassium will not treat a viral infection such as the flu or a common cold. Store the tablets at room temperature away from moisture and heat. Store the liquid in the refrigerator. Throw away any unused liquid after 10 days. What happens if I miss a dose? Take the medicine as soon as you can, but skip the missed dose if it is almost time for your next dose. Do not take two doses at one time. What happens if I overdose? Seek emergency medical attention or call the Poison Help line at . Overdose can cause nausea, vomiting, stomach pain, diarrhea, skin rash, drowsiness, hyperactivity, and decreased urination. What should I avoid while taking amoxicillin and clavulanate potassium? Avoid taking this medicine together with or just after eating a high-fat meal. This will make it harder for your body to absorb the medication. Antibiotic medicines can cause diarrhea, which may be a sign of a new infection. If you have diarrhea that is watery or bloody, call your doctor before using anti-diarrhea medicine. What are the possible side effects of amoxicillin and clavulanate potassium? Get emergency medical help if you have signs of an allergic reaction (hives, difficult breathing, swelling in your face or throat) or a severe skin reaction (fever, sore throat, burning eyes, skin pain, red or purple skin rash with blistering and peeling). Stop using amoxicillin and clavulanate potassium and seek medical treatment if you have a serious drug reaction that can affect many parts of your body. Symptoms may include skin rash, fever, swollen glands, muscle aches, severe weakness, unusual bruising, or yellowing of your skin or eyes. Call your doctor at once if you have: severe stomach pain, diarrhea that is watery or bloody (even if it occurs months after your last dose); pale or yellowed skin, dark colored urine, fever, confusion or weakness; loss of appetite, upper stomach pain; little or no urination; or easy bruising or bleeding. Common side effects may include: nausea, vomiting; diarrhea; rash, itching; vaginal itching or discharge; or diaper rash. This is not a complete list of side effects and others may occur. Call your doctor for medical advice about side effects. You may report side effects to FDA at 6-497-IDA-7284. What other drugs will affect amoxicillin and clavulanate potassium? Tell your doctor about all your other medicines, especially: allopurinol; probenecid; or a blood thinner--warfarin, Coumadin, Jantoven. This list is not complete. Other drugs may affect amoxicillin and clavulanate potassium, including prescription and axlr-dqy-nmidvya medicines, vitamins, and herbal products. Not all possible drug interactions are listed here. Where can I get more information? Your doctor or pharmacist can provide more information about amoxicillin and clavulanate potassium. Remember, keep this and all other medicines out of the reach of children, never share your medicines with others, and use this medication only for the indication prescribed. Every effort has been made to ensure that the information provided by [employer]. [employer]') is accurate, up-to-date, and complete, but no guarantee is made to that effect. Drug information contained herein may be time sensitive. [employer] information has been compiled for use by healthcare practitioners and consumers in the [place] and therefore [employer] does not warrant that uses outside of the [place] are appropriate, unless specifically indicated otherwise. [employer] drug information does not endorse drugs, diagnose patients or recommend therapy. [employer] drug information is an informational resource designed to assist licensed healthcare practitioners in caring for their patients and/or to serve consumers viewing this service as a supplement to, and not a substitute for, the expertise, skill, knowledge and judgment of healthcare practitioners. The absence of a warning for a given drug or drug combination in no way should be construed to indicate that the drug or drug combination is safe, effective or appropriate for any given patient. [employer] does not assume any responsibility for any aspect of healthcare administered with the aid of information [employer] provides. The information contained herein is not intended to cover all possible uses, directions, precautions, warnings, drug interactions, allergic reactions, or adverse effects. If you have questions about the drugs you are taking, check with your doctor, nurse or pharmacist. Copyright 1754-0993 [employer]. Version: 14.. Revision Date: 11/20/2021. Education Materials Cat Bite A cat bite can cause a wound deep enough to break the skin. In such cases, the wound is cleaned and then sometimes closed. If the wound is closed it is usually not closed completely. This is so that fluid can drain if the wound becomes infected. Often the wound is left open to heal. In addition to wound care, a tetanus shot may be given, if needed. Home care Wash your hands well with soap and warm water before and after caring for the wound. This helps lower the risk of infection. Care for the wound as directed. If a dressing was applied to the wound, be sure to change it as directed. If the wound bleeds, place a clean, soft cloth on the wound. Then firmly apply pressure until the bleeding stops. This may take up to 5 minutes. Don't release the pressure and look at the wound during this time. Always get medical attention for cat bites on the hand. They are highly likely to become infected. Most wounds heal within 10 days. But an infection can occur even with proper treatment. So be sure to check the wound daily for signs of infection (see below). Antibiotics may be prescribed. These help prevent or treat infection. If you re given antibiotics, take them as directed. Also be sure to complete the medicines. Rabies prevention Rabies is a virus that can be carried in certain animals. These can include domestic animals such as cats and dogs. Pets fully vaccinated against rabies (2 shots) are at very low risk of infection. But because human rabies is almost always fatal, any biting pet should be confined for 10 days as an extra precaution. In general, if there is a risk for rabies, the following steps may need to be taken: If someone s pet cat has bitten you, it should be kept in a secure area for the next 10 days to watch for signs of illness. If the pet hot knife foxing cutter won t allow this, contact your local animal control center. If the cat becomes ill or dies during that time, contact your local animal control center at once so the animal may be tested for rabies. If the cat stays healthy for the next 10 days, there is no danger of rabies in the animal or you. If a stray cat bit you, contact your local animal control center. They can give information on capture, quarantine, and animal rabies testing. If you can t find the animal that bit you in the next 2 days, and if rabies exists in your area, you may need to receive the rabies vaccine series. Call your healthcare provider right away. Or return to the emergency department promptly. All animal bites should be reported to the local animal control center. If you were not given a form to fill out, you can report this yourself. Follow-up care Follow up with your healthcare provider, or as directed. When to seek medical advice Call your healthcare provider right away if any of these occur: Signs of infection: oSpreading redness or warmth from the wound oIncreased pain or swelling oFever of 100.4 F (38 C) or higher, or as directed by your healthcare provider oColored fluid or pus draining from the wound oEnlarged lymph nodes above the area that was bitten, such as lymph nodes in the armpit if you were bitten on the hand or arm. This may be a sign of cat-scratch disease (cat-scratch fever). Signs of rabies infection: oHeadache oConfusion oStrange behavior oIncreased salivating or drooling oSeizure Decreased ability to move any body part near the bite area Bleeding that can't be stopped after 5 minutes of firm pressure [id number] [employer]. [address] [place] [address]. All rights reserved. This information is not intended as a substitute for professional medical care. Always follow your healthcare professional's instructions. Additional Information VACCINATE! IT SAVES LIVES! Members of the community who have not yet received the COVID-19 vaccine and would like to receive it can visit one of [facility] vaccine clinics. There are many vaccine clinic locations within the [facility]. For locations and available times, please visit [email or web address] It is important to note that some COVID mobile vaccine clinics are held outdoors and may be canceled in rainy or stormy conditions. To learn more about pediatric vaccinations (ages 5-11), we invite you to visit the [facility] webpage. https://www.[email or web address].org/pag es/2169-Jtffz-Unahhuhkqpa-Frequent gk-Ugcxa-Sjukmhhst.html To learn more about the COVID-19 vaccine, we invite you to visit the CDC website for a list of frequently asked questions. https://www.cdc.gov/coronavirus/ 19-ncov/vaccines/faq.html [facility] Patient Portal Access Instructions: Stay connected with your healthcare team and access your personal medical information anytime with the [facility] Patient Portal. If you would like a full copy of your medical records please contact the [facility] Medical Records Department Tuesday through Tuesday between 8a.m. and 4:30p.m. Please follow the directions below to access the portal: 1.Access the email account you provided upon registration to the [facility].2.Look for an invitation email from [facility].3.Open the email and access the invitation link: Accept Invitation to [facility] ([facility])4.Fill in the required avitia to create your account. Sign into [email or web address] with your username and password that you created in the above steps to stay up to date. You can then view a summary of results, a summary of your visits, and the ability to download your summaries to your computer or send the information securely to a physician. Remember that your healthcare information is confidential, so carefully consider who you will allow to register on the [facility] Patient Portal for access to your information. You can also access the [facility] Patient Portal on the [employer] buddy. Simply click on Health Records under Health Data and then click on the [facility] logo. HOW TO SAFELY DISPOSE OF PRESCRIPTION MEDICATIONS Please use one of the following methods to safely dispose of your unused medications. 1.Use a drug disposal kit: the drug disposal pouch allows you to safely discard your old and unused drugs. Ask your nurse to give you one when you are discharged.2.Visit a local take-back location: Many local pharmacies and police departments have programs that collect old and unwanted prescription drugs. Call your local pharmacy or go to http://[employer]/0D0Bm3u to find one close to you.3.Make use of household items: Use cat litter or old coffee grounds to dispose medications if other options are not available. Mix your drugs with these household products, seal them in an airtight container and throw it into the garbage. Call [facility]: [phone] to be sure your drugs can be disposed of in this way. Some medicines may require a different approach.4.Never flush your medications down the toilet. IF YOU HAVE BEEN PRESCRIBED AN OPIOIDS FOR PAIN If you have been prescribed an opioid (such as hydrocodone, oxycodone or morphine), it is critical to understand the possible side effects and risks of opioid pain medications. Even when taken as directed, opioids can have several side effects including: Tolerance, meaning you might need to take more of a medication for the same pain relief. Nausea, vomiting and/or constipation. Sleepiness, dizziness, dry mouth, confusion, depression or itching. Physical dependence, meaning you have withdrawal symptoms when a medication is stopped ? this can develop within a few days. KNOW YOUR RESPONSIBILITIES It is important to know exactly how much and how often to take the opioid pain medications you are prescribed. Never take opioids in higher amounts or more often than prescribed. Do not combine opioids with alcohol or other drugs that cause drowsiness, such as benzodiazepines, also known as benzos, including diazepam and alprazolam, muscle relaxants or sleep aids. Never sell or share prescription opioids. This is illegal. Store opioids in a secure place and out of reach of others (including children, family, friends and visitors). The last page(s) of this document has been signed and retained as a CHART COPY Signatures Patient Education Materials Cat Bite Medication Leaflets amoxicillin and clavulanate potassium My discharge plan and instructions have been reviewed and explained to me and I,GARDENIA MUJICA understand my current condition and have read and understand these discharge instructions. I have received a written copy of the plan/instructions. If I have questions, I am aware that I should contact my doctor. 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 Author Type: Nurse Clinician Type: Progress Notes Filed: 03/11/2023 10:16 Note Text: Patient given written information about EGD and Lopez pH probe and the prep instructions. Verbally discussed and reviewed the information with the patient. All of patient's questions were answered. Roberto Hemphill RN [facility] 03-11-2023 Note HNO ID: [id number] Author: ROBERTO HEMPHILL RN Service: ? Author Type: Nurse Clinician Type: Progress Notes Filed: 03/11/2023 10:09 Note Text: .cb [facility] 03-11-2023 Note HNO ID: [id number] Author: JAYASHREE HERNANDEZ MD Service: ? Author Type: Physician Type: Progress Notes Filed: 03/11/2023 09:55 Note Text: SURGICAL SERVICES HISTORY AND PHYSICAL EXAMINATION SERVICE DATE: 03/11/2023 SERVICE TIME: 9:26 AM [facility] SUBJECTIVE CHIEF COMPLAINT: nausea HISTORY OF PRESENT ILLNESS: Ms. Mujica is a 57 year old female with a PMH of obesity (BMI 32.89), NATO (getting fitted for CPAP), aortic regurgitation, PTSD (severe), and GERD who presents for surgical consultation. Surgical consultation was requested by the patient's referring physician, LONG in [place]. A copy of this consultation note will be provided to the requesting physician(s) by way of shared medical record or letter via US mail. The patient reports a 10 year history of nausea, emesis, bloating, abdominal pain. These symptoms are present constantly. Eating makes the symptoms much worse and she states that the abdominal fullness is visible. She believes that oral tolerance has decreased - she is not able to eat anything after 3 pm and chicken noodle soup is about the only thing she can keep down. She endorses severe nearly constant GERD - she consumes bottles and bottles of Tums in addition to Protonix 40 mg at HS. She reports having had a GES in the past at the [facility]. She does not recall the results, but she believes it was slow and she was diagnosed with gastroparesis Workup: - EGD (11/05/22): diffuse gastritis like picture. Hourglass configuration of stomach possible lap band - Pathology: reactive gastropathy - Colonoscopy (02/25/23): normal colonoscopy - CT abd/pelvis (12/07/22): no acute abnormality - CT abd/pelvis (02/11/22): small hiatal hernia. Previous gastric bypass. No acute abdominoplevic process. Social: denies use of tobacco, etoh, or marijuana. 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 PSHx: abdominoplasty; lap CCx; heart valve replacement (mechanical; aortic root); open vertical banded gastroplasty; TL; LUZ; ORIF PAST MEDICAL HISTORY: PAST MEDICAL HISTORY Diagnosis Date Acute gastritis without mention of hemorrhage Aortic regurgitation 10/05/2008 Esophageal reflux 06/10/2008 Esophagitis, unspecified MITRAL VALVE DISORDER 06/10/2008 Obstructive sleep apnea 03/19/2010 PTSD (post-traumatic stress disorder) 04/29/2010 PAST SURGICAL HISTORY: PAST SURGICAL HISTORY Procedure Laterality Date ABDOMINOPLASTY LIPOSUCTION, TUMMY TUCK CHOLECYSTECTOMY 02/15/1992 [facility] EGD TRANSORAL BIOPSY SINGLE/MULTIPLE 10/20/2010 GSTR RSTCV W/O BYP OTH/THN [place]-BANDED GSTP 02/14/1993 [facility] HEART VALVE REPLACEMENT 05/15/2009 mechanical valve, Aortic root, [facility] in [place] Dr. Curiel LIGATE FALLOPIAN TUBE 1991 [place] PAST SURGICAL HISTORY OF 2004 ORIF femur, [facility] TOTAL ABDOMINAL HYSTERECT W/WO RMVL TUBE OVARY 2004 Hysterectomy, [facility] -- ovaries intact, Dr. Luz Garcia in [place] FAMILY HISTORY: FAMILY HISTORY Problem Relation Age of Onset Coronary Artery Disease Mother CAD, no NC; first diagnosed mid-50's? Coronary Artery Disease Maternal Grandmother NC, CAD Coronary Artery Disease Maternal Grandfather NC, CAD None Father UNKNOWN --- Colon Cancer Other none Diabetes Other none Breast Cancer Other none other (ADD [Other]) Son SOCIAL HISTORY: Social History Tobacco Use Smoking status: Never Smokeless tobacco: Never Substance Use Topics Alcohol use: No Drug use: No MEDICATIONS: Current Outpatient Medications Medication Sig lisinopril (ZESTRIL) 20 mg tablet Take 20 mg by mouth. valACYclovir (VALTREX) 500 mg tablet Take 1 tablet by mouth once daily. trospium (SANCTURA) 20 mg tablet 20 mg. lysine HCL 1,000 mg tab TAKE BY MOUTH EVERY DAY cyanocobalamin (VITAMIN B-12) 1,000 mcg tab Take 1,000 mcg by mouth once daily. pantoprazole 40 mg tablet Take 1 tablet by mouth daily before breakfast. Take on empty stomach, 1/2 hr before meal. warfarin (COUMADIN) 3 mg tablet acetaminophen(TYLENOL 325 MG TAB) Take two(2) tablets every four(4) to six(6) hours as needed for pain. No current facility-administered medications for this visit. ALLERGIES: ALLERGIES Allergen Reactions Pravachol [Pravasta* Temazepam Other: See Comments Joint and muscle pain and stiffness COMPLETE REVIEW OF SYSTEMS: Review of Systems Constitutional: Negative for chills, diaphoresis, fever and malaise/fatigue. HENT: Negative for congestion, hearing loss, nosebleeds, sinus pain, sore throat and tinnitus. Eyes: Negative for blurred vision, double vision, pain and redness. Respiratory: Positive for cough. Negative for hemoptysis, sputum production, shortness of breath and wheezing. Cardiovascular: Negative for chest pain, palpitations, orthopnea, leg swelling and PND. Gastrointestinal: Positive for abdominal pain, constipation, diarrhea, heartburn, nausea and vomiting. (more content not included)... 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) History of hysterectomy ([id number]) Hyperlipidemia ([id number]) Hypertension (32798754) PTSD - Post-traumatic stress disorder ([id number]) Weight gain (41311363) MEDICATIONS: Active Inpt Meds: None Active PRN Meds: None One Time Meds: (Completed) ampicillin Start: 02/25/23 9:45:00 EST, Dose = 2 gram(s), IV Piggyback, Once, Stop: 02/25/23 9:45:00 EST, Rate: 200 mL/hr, Infuse over: 30 minute(s), 0, 02/25/23 9:34:00 EST (Ordered) gentamicin Start: 02/25/23 9:45:00 EST, Dose = 150 mg, = 3.75 mL, IV Piggyback, Once, Stop: 02/25/23 9:45:00 EST, Rate: 107.5 mL/hr, Infuse over: 30 minute(s), 0, 02/25/23 9:36:00 EST Active IV Meds: Lactated Ringers Infusion 1,000 mL (LR 1,000 mL) Start: 02/25/23 7:37:00 EST, Rate: 50 mL/hr, 02/25/23 7:37:00 EST ALLERGIES: (1) [facility] FAMILY HISTORY: SOCIAL HISTORY: PHYSICAL EXAM: VITALS: [id number](kg) 02/25 07:4036.3--[id number]--83/12 84.0 02/25 84.0 24 Hr Tmax: 36.3 at 02/25 07:40 36 Hr Tmax: 36.3 at 02/25 07:40 Vital Signs are the last 5 in the past 48 hours. Weights display the last 5 within 7 days. Initial Wt: 02/25 84.0 kg 185 lb Current Wt: 02/25 84.0 kg 185 lb GENERAL: HEENT: CARDIOVASCULAR: RESPIRATORY: ABDOMEN: EXREMETIES: NEUROLOGICAL: PSYCHIATRIC: LABS: No 36hr Lab Data DIAGNOSTICS: IMPRESSION: PLAN: History and Physical Update I have examined the patient; reviewed the H&P and there are no changes to the H&P unless noted below. [facility] 01-12-2024 Hospital Discharge instructions Patient Education 02/25/2023 11:49:12 Capsule Endoscopy Capsule Endoscopy Capsule endoscopy is a procedure that is used to examine the inside of the small intestine. It is done to look for problems or abnormalities in the intestine. These problems may include bleeding, inflammation, or growths in the intestine. You will swallow a small capsule that has a tiny camera and transmitter in it. This capsule naturally travels through your digestive system. The camera takes photos of the small intestine along the way. The photos are transmitted to a recording device so that your health care provider can later view the photos and look for problems. Tell a health care provider about: Any allergies you have. All medicines you are taking, including vitamins, herbs, eye drops, creams, and pkeu-ufz-hmjbipf medicines. Any blood disorders you have. Any surgeries or treatments you have had. Any medical conditions you have. Any history of intestinal blockage, Crohn disease, or ulcerative colitis. Any history of swallowing disorders. Smoking history. Whether you have a pacemaker or implantable heart defibrillator. Whether you are or may be . What are the risks? Generally, this is a safe procedure. However, problems may occur, including: The capsule becoming trapped in the digestive tract, resulting in intestinal blockage. Fever. Nausea and vomiting. Problems swallowing. Cramps and pain in the abdomen. Failure to find a problem. What happens before the procedure? Eating and drinking restrictions Follow instructions from your health care provider about eating and drinking. You may be asked to: Switch to a clear liquid diet 24 hours before the procedure. Examples of clear liquids include water, broth, and gelatin. Drinking plenty of fluids during this time can help to prevent complications. Stop eating and drinking completely 10 hours before the procedure. General instructions Ask your health care provider about: ?Changing or stopping your regular medicines. This is especially important if you are taking diabetes medicines or blood thinners. ?Taking medicines such as aspirin and ibuprofen. These medicines can thin your blood. Do not take these medicines before your procedure if your health care provider instructs you not to. Do not use any products that contain nicotine or tobacco, such as cigarettes and e-cigarettes. If you need help quitting, ask your health care provider. You may be asked to follow a bowel preparation cleansing routine (bowel prep) to empty out your intestines. If the intestines are not adequately cleansed, the procedure may fail to get useful photos and may need to be repeated. You may have imaging tests, such as X-rays, CT scans, or an MRI. What happens during the procedure? Your health care provider will attach sensors to your abdomen. Then, you will be asked to put on a belt that contains a recording device. Your health care provider will turn on the camera inside the capsule. You will swallow the capsule with water, just like taking a pill. After you have swallowed the capsule, you may leave and return to your regular daily activities. Over the next several hours, the capsule will naturally travel through your digestive system and take photos of the small intestine. The photos will be transmitted to the recording device on your belt. After the specified number of hours (usually 8 or 12), you will take off the sensors and belt and return them to your health care provider as directed. Your health care provider will retrieve the photos that were taken and examine them on a computer. The procedure may vary among health care providers and hospitals. What happens after the procedure? After you swallow the capsule, you will be able to leave and carry on with your regular daily activities. Follow these instructions during the testing period: Activity You can return to your normal activities right after swallowing the capsule. Avoid strenuous activity, such as running or heavy lifting, for 8 hours or until the capsule has passed out of your body during a bowel movement. Eating and drinking 2 hours after swallowing the capsule you may drink clear liquids. 4 hours after swallowing the capsule you may eat lightly. You can return to your regular diet afterthe testing period. General instructions You should not feel any pain or discomfort while the capsule is traveling through your digestive system. Contact your health care provider if: ?You develop nausea or vomiting. ?You feel pain or bloating in your abdomen. Only remove the sensors and recording device as told by your health care provider. Return the recording device to your health care provider as directed. The capsule will be naturally eliminated from the body during a bowel movement. Look for the capsule in your bowel movements over the next few days. Most people pass the capsule in about 8 hours, butthis can vary. If you do not pass the capsule within 2 weeks, contact a health care provider. The capsule can be safely flushed down the toilet. Avoid MRI equipment until the capsule has been eliminated from your body. It is up to you to get the results of your procedure. Ask your health care provider, or the department performing the procedure, when your results will be ready. Summary Capsule endoscopy is a procedure that is used to examine the inside of the small intestine. You will swallow a small capsule that has a tiny camera and transmitter in it. This capsule naturally travels through your digestive system, and the camera takes photos of the small intestine along the way. After you swallow the capsule, you will be able to leave and carry on with your regular daily activities. Contact your health care provider if you develop nausea or vomiting or if you feel pain or bloatingin your abdomen. This information is not intended to replace advice given to you by your health care provider. Make sure you discuss any questions you have with your health care provider. Document Released: 10/03/2013 Document Revised: 04/27/2018 Document Reviewed: 12/20/2016 [employer] Patient Education 2020 [employer]. 02/25/2023 11:48:55 Colonoscopy, Adult, Care After, Qcqs-xp-Qjwy Colonoscopy, Adult, Care After This sheet gives you information about how to care for yourself after your procedure. Your doctor may also give you more specific instructions. If you have problems or questions, call your doctor. What can I expect after the procedure? After the procedure, it is common to have: A small amount of blood in your poop for 24 hours. Some gas. Mild cramping or bloating in your belly. Follow these instructions at home: General instructions For the first 24 hours after the procedure: ?Do not drive or use machinery. ?Do not sign important documents. ?Do not drink alcohol. ?Do your daily activities more slowly than normal. ?Eat foods that are soft and easy to digest. Take qdwf-upl-intfpxi or prescription medicines only as told by your doctor. To help cramping and bloating: Try walking around. Put heat on your belly (abdomen) as told by your doctor. Use a heat source that your doctor recommends, such as a moist heat pack or a heating pad. ?Put a towel between your skin and the heat source. ?Leave the heat on for 20 30 minutes. ?Remove the heat if your skin turns bright red. This is especially important if you cannot feel pain, heat, or cold. You can get burned. Eating and drinking Drink enough fluid to keep your pee (urine) clear or pale yellow. Return to your normal diet as told by your doctor. Avoid heavy or fried foods that are hard to digest. Avoid drinking alcohol for as long as told by your doctor. Contact a doctor if: You have blood in your poop (stool) 2 3 days after the procedure. Get help right away if: You have more than a small amount of blood in your poop. You see large clumps of tissue (blood clots) in your poop. Your belly is swollen. You feel sick to your stomach (nauseous). You throw up (vomit). You have a fever. You have belly pain that gets worse, and medicine does not help your pain. Summary After the procedure, it is common to have a small amount of blood in your poop. You may also have mild cramping and bloating in your belly. For the first 24 hours after the procedure, do not drive or use machinery, do not sign important documents, and do not drink alcohol. Get help right away if you have a lot of blood in your poop, feel sick to your stomach, have a fever, or have more belly pain. This information is not intended to replace advice given to you by your health care provider. Make sure you discuss any questions you have with your health care provider. Document Released: 03/05/2011 Document Revised: 12/01/2017 Document Reviewed: 10/25/2016 [employer] Patient Education 2020 [employer]. 02/25/2023 11:48:48 Monitored Anesthesia Care, Care After Monitored Anesthesia Care, Care After These instructions provide you with information about caring for yourself after your procedure. Your health care provider may also give you more specific instructions. Your treatment has been plannedaccording to current medical practices, but problems sometimes occur. Call your health care provider if you have any problems or questions after your procedure. What can I expect after the procedure? After your procedure, you may: Feel sleepy for several hours. Feel clumsy and have poor balance for several hours. Feel forgetful about what happened after the procedure. Have poor judgment for several hours. Feel nauseous or vomit. Have a sore throat if you had a breathing tube during the procedure. Follow these instructions at home: For at least 24 hours after the procedure: Have a responsible adult stay with you. It is important to have someone help care for you until youare awake and alert. Rest as needed. Do not: ?Participate in activities in which you could fall or become injured. ?Drive. ?Use heavy machinery. ?Drink alcohol. ?Take sleeping pills or medicines that cause drowsiness. ?Make important decisions or sign legal documents. ?Take care of children on your own. Eating and drinking Follow the diet that is recommended by your health care provider. If you vomit, drink water, juice, or soup when you can drink without vomiting. Make sure you have little or no nausea before eating solid foods. General instructions Take navv-eua-wxifyzt and prescription medicines only as told by your health care provider. If you have sleep apnea, surgery and certain medicines can increase your risk for breathing problems. Follow instructions from your health care provider about wearing your sleep device: ?Anytime you are sleeping, including during daytime naps. ?While taking prescription pain medicines, sleeping medicines, or medicines that make you drowsy. If you smoke, do not smoke without supervision. Keep all follow-up visits as told by your health care provider. This is important. Contact a health care provider if: You keep feeling nauseous or you keep vomiting. You feel light-headed. You develop a rash. You have a fever. Get help right away if: You have trouble breathing. Summary For several hours after your procedure, you may feel sleepy and have poor judgment. Have a responsible adult stay with you for at least 24 hours or until you are awake and alert. This information is not intended to replace advice given to you by your health care provider. Make sure you discuss any questions you have with your health care provider. Document Released: 05/23/2016 Document Revised: 05/01/2018 Document Reviewed: 05/23/2016 [employer] Patient Education 2020 [employer]. 02/25/2023 11:48:42 Monitored Anesthesia Care, Care After Monitored Anesthesia Care, Care After These instructions provide you with information about caring for yourself after your procedure. Your health care provider may also give you more specific instructions. Your treatment has been plannedaccording to current medical practices, but problems sometimes occur. Call your health care provider if you have any problems or questions after your procedure. What can I expect after the procedure? After your procedure, you may: Feel sleepy for several hours. Feel clumsy and have poor balance for several hours. Feel forgetful about what happened after the procedure. Have poor judgment for several hours. Feel nauseous or vomit. Have a sore throat if you had a breathing tube during the procedure. Follow these instructions at home: For at least 24 hours after the procedure: Have a responsible adult stay with you. It is important to have someone help care for you until youare awake and alert. Rest as needed. Do not: ?Participate in activities in which you could fall or become injured. ?Drive. ?Use heavy machinery. ?Drink alcohol. ?Take sleeping pills or medicines that cause drowsiness. ?Make important decisions or sign legal documents. ?Take care of children on your own. Eating and drinking Follow the diet that is recommended by your health care provider. If you vomit, drink water, juice, or soup when you can drink without vomiting. Make sure you have little or no nausea before eating solid foods. General instructions Take eche-xyh-oyclxzx and prescription medicines only as told by your health care provider. If you have sleep apnea, surgery and certain medicines can increase your risk for breathing problems. Follow instructions from your health care provider about wearing your sleep device: ?Anytime you are sleeping, including during daytime naps. ?While taking prescription pain medicines, sleeping medicines, or medicines that make you drowsy. If you smoke, do not smoke without supervision. Keep all follow-up visits as told by your health care provider. This is important. Contact a health care provider if: You keep feeling nauseous or you keep vomiting. You feel light-headed. You develop a rash. You have a fever. Get help right away if: You have trouble breathing. Summary For several hours after your procedure, you may feel sleepy and have poor judgment. Have a responsible adult stay with you for at least 24 hours or until you are awake and alert. This information is not intended to replace advice given to you by your health care provider. Make sure you discuss any questions you have with your health care provider. Document Released: 05/23/2016 Document Revised: 05/01/2018 Document Reviewed: 05/23/2016 [employer] Patient Education 2020 [employer]. Follow Up Care 01/12/2023 07:57:56 With:DESHAWN AVILA MD [address] [phone] When: Unknown Comments:CALL DR AVILA WITH ANY QUESTIONS OR CONCERNS YOU MAY NEED A CAPSULE ENDOSCOPY . YOU MAY HAVE A CHRONIC BLEED SOMEWHERE. RESART YOUR COUMADIN AND HEPARIN WAS INSTRUCTED BY DR AVILA. TAKE AT LEASTTWO FLINTSTONE VITAMINS WITH IRON DAILY. YOU SHOULD ACTUALLY BE GETTING 60MG OF IRON A DAY. GO TO THE EMERGENCY ROOM WITH ANY URGENT CONCERNS. [facility] 01-12-2024 Note Discharge Instructions Thank you for allowing [facility] to assist you with your healthcare needs. The following is importantdischarge information regarding your hospital visit. Your Care Team [place], CLINIC DR. AVILA What to do next Follow Up Appointments Follow Up with DESHAWN AVILA MD When Why: CALL DR AVILA WITH ANY QUESTIONS OR CONCERNS YOU MAY NEED A CAPSULE ENDOSCOPY . YOU MAY HAVE A CHRONIC BLEED SOMEWHERE. RESART YOUR COUMADIN AND HEPARIN WAS INSTRUCTED BY DR AVILA. TAKE AT LEAST TWO FLINTSTONE VITAMINS WITH IRON DAILY. YOU SHOULD ACTUALLY BE GETTING 60MG OF IRON A DAY. GOTO THE EMERGENCY ROOM WITH ANY URGENT CONCERNS. Where: [address] [place] [phone] The Following Activity and Diet Have Been Ordered for You Discharge Activity - Ordered -- NO activity restrictions, 02/25/23 11:09:00 EST Discharge Diet - Ordered -- Follow the post-operative/post-procedure diet instructions provided by your physician's office.,02/25/23 11:09:00 EST The Following Equipment Has Been Ordered for You Discharge Home Equipment Discharge Wound Care - Ordered -- Follow the post-operative/post-procedure wound care instructions provided by your physician's office., 02/25/23 11:09:00 EST Allergies [facility] Medications Please ask your primary doctor or pharmacist before taking any other medication not listed, including over the counter drugs, herbal medications, vitamins and or supplements as they may interact withyour home medications. What How Much When Instructions Last Dose Unchanged lisinopril (lisinopril 20 mg oral tablet) 1 tab(s) by mouth Every day Unchanged pantoprazole (Protonix 40 mg oral enteric coated tablet) 2 tab(s) by mouth Two (2) times a day Unchanged sucralfate (sucralfate 1 g oral tablet) 1 tab(s) by mouth Three (3) times a day Duration: 30 Days Unchanged warfarin (Coumadin) 3 Milligram by mouth Once a day Please take this list to your next doctor s visit. Bring all medications you take, including over the counter medications, herbals and other supplements with you to your doctor s visit. Patients and families are reminded to discard old lists and to update any records with all medication providers or retail pharmacies. Education Materials Capsule Endoscopy Capsule endoscopy is a procedure that is used to examine the inside of the small intestine. It is done to look for problems or abnormalities in the intestine. These problems may include bleeding, inflammation, or growths in the intestine. You will swallow a small capsule that has a tiny camera and transmitter in it. This capsule naturally travels through your digestive system. The camera takes photos of the small intestine along the way. The photos are transmitted to a recording device so that your health care provider can later view the photos and look for problems. Tell a health care provider about: Any allergies you have. All medicines you are taking, including vitamins, herbs, eye drops, creams, and rlea-xya-pwadosh medicines. Any blood disorders you have. Any surgeries or treatments you have had. Any medical conditions you have. Any history of intestinal blockage, Crohn disease, or ulcerative colitis. Any history of swallowing disorders. Smoking history. Whether you have a pacemaker or implantable heart defibrillator. Whether you are or may be . What are the risks? Generally, this is a safe procedure. However, problems may occur, including: The capsule becoming trapped in the digestive tract, resulting in intestinal blockage. Fever. Nausea and vomiting. Problems swallowing. Cramps and pain in the abdomen. Failure to find a problem. What happens before the procedure? Eating and drinking restrictions Follow instructions from your health care provider about eating and drinking. You may be asked to: Switch to a clear liquid diet 24 hours before the procedure. Examples of clear liquids include water, broth, and gelatin. Drinking plenty of fluids during this time can help to prevent complications. Stop eating and drinking completely 10 hours before the procedure. General instructions Ask your health care provider about: ? Changing or stopping your regular medicines. This is especially important if you are taking diabetes medicines or blood thinners. ? Taking medicines such as aspirin and ibuprofen. These medicines can thin your blood. Do not take these medicines before your procedure if your health care provider instructs you not to. Do not use any products that contain nicotine or tobacco, such as cigarettes and e-cigarettes. If you need help quitting, ask your health care provider. You may be asked to follow a bowel preparation cleansing routine (bowel prep) to empty out your intestines. If the intestines are not adequately cleansed, the procedure may fail to get useful photos and may need to be repeated. You may have imaging tests, such as X-rays, CT scans, or an MRI. What happens during the procedure? Your health care provider will attach sensors to your abdomen. Then, you will be asked to put on a belt that contains a recording device. Your health care provider will turn on the camera inside the capsule. You will swallow the capsule with water, just like taking a pill. After you have swallowed the capsule, you may leave and return to your regular daily activities. Over the next several hours, the capsule will naturally travel through your digestive system and take photos of the small intestine. The photos will be transmitted to the recording device on your belt. After the specified number of hours (usually 8 or 12), you will take off the sensors and belt and return them to your health care provider as directed. Your health care provider will retrieve the photos that were taken and examine them on a computer. The procedure may vary among health care providers and hospitals. What happens after the procedure? After you swallow the capsule, you will be able to leave and carry on with your regular daily activities. Follow these instructions during the testing period: Activity You can return to your normal activities right after swallowing the capsule. Avoid strenuous activity, such as running or heavy lifting, for 8 hours or until the capsule has passed out of your body during a bowel movement. Eating and drinking 2 hours after swallowing the capsule you may drink clear liquids. 4 hours after swallowing the capsule you may eat lightly. You can return to your regular diet afterthe testing period. General instructions You should not feel any pain or discomfort while the capsule is traveling through your digestive system. Contact your health care provider if: ? You develop nausea or vomiting. ? You feel pain or bloating in your abdomen. Only remove the sensors and recording device as told by your health care provider. Return the recording device to your health care provider as directed. The capsule will be naturally eliminated from the body during a bowel movement. Look for the capsule in your bowel movements over the next few days. Most people pass the capsule in about 8 hours, butthis can vary. If you do not pass the capsule within 2 weeks, contact a health care provider. The capsule can be safely flushed down the toilet. Avoid MRI equipment until the capsule has been eliminated from your body. It is up to you to get the results of your procedure. Ask your health care provider, or the department performing the procedure, when your results will be ready. Summary Capsule endoscopy is a procedure that is used to examine the inside of the small intestine. You will swallow a small capsule that has a tiny camera and transmitter in it. This capsule naturally travels through your digestive system, and the camera takes photos of the small intestine along the way. After you swallow the capsule, you will be able to leave and carry on with your regular daily activities. Contact your health care provider if you develop nausea or vomiting or if you feel pain or bloatingin your abdomen. This information is not intended to replace advice given to you by your health care provider. Make sure you discuss any questions you have with your health care provider. Document Released: 10/03/2013 Document Revised: 04/27/2018 Document Reviewed: 12/20/2016 [employer] Patient Education 2020 [employer]. Colonoscopy, Adult, Care After This sheet gives you information about how to care for yourself after your procedure. Your doctor may also give you more specific instructions. If you have problems or questions, call your doctor. What can I expect after the procedure? After the procedure, it is common to have: A small amount of blood in your poop for 24 hours. Some gas. Mild cramping or bloating in your belly. Follow these instructions at home: General instructions For the first 24 hours after the procedure: ? Do not drive or use machinery. ? Do not sign important documents. ? Do not drink alcohol. ? Do your daily activities more slowly than normal. ? Eat foods that are soft and easy to digest. Take guvn-afe-hwtmhae or prescription medicines only as told by your doctor. To help cramping and bloating: Try walking around. Put heat on your belly (abdomen) as told by your doctor. Use a heat source that your doctor recommends, such as a moist heat pack or a heating pad. ? Put a towel between your skin and the heat source. ? Leave the heat on for 20 30 minutes. ? Remove the heat if your skin turns bright red. This is especially important if you cannot feel pain, heat, or cold. You can get burned. Eating and drinking Drink enough fluid to keep your pee (urine) clear or pale yellow. Return to your normal diet as told by your doctor. Avoid heavy or fried foods that are hard to digest. Avoid drinking alcohol for as long as told by your doctor. Contact a doctor if: You have blood in your poop (stool) 2 3 days after the procedure. Get help right away if: You have more than a small amount of blood in your poop. You see large clumps of tissue (blood clots) in your poop. Your belly is swollen. You feel sick to your stomach (nauseous). You throw up (vomit). You have a fever. You have belly pain that gets worse, and medicine does not help your pain. Summary After the procedure, it is common to have a small amount of blood in your poop. You may also have mild cramping and bloating in your belly. For the first 24 hours after the procedure, do not drive or use machinery, do not sign important documents, and do not drink alcohol. Get help right away if you have a lot of blood in your poop, feel sick to your stomach, have a fever, or have more belly pain. This information is not intended to replace advice given to you by your health care provider. Make sure you discuss any questions you have with your health care provider. Document Released: 03/05/2011 Document Revised: 12/01/2017 Document Reviewed: 10/25/2016 [employer] Patient Education 2020 [employer]. Monitored Anesthesia Care, Care After These instructions provide you with information about caring for yourself after your procedure. Your health care provider may also give you more specific instructions. Your treatment has been plannedaccording to current medical practices, but problems sometimes occur. Call your health care provider if you have any problems or questions after your procedure. What can I expect after the procedure? After your procedure, you may: Feel sleepy for several hours. Feel clumsy and have poor balance for several hours. Feel forgetful about what happened after the procedure. Have poor judgment for several hours. Feel nauseous or vomit. Have a sore throat if you had a breathing tube during the procedure. Follow these instructions at home: For at least 24 hours after the procedure: Have a responsible adult stay with you. It is important to have someone help care for you until youare awake and alert. Rest as needed. Do not: ? Participate in activities in which you could fall or become injured. ? Drive. ? Use heavy machinery. ? Drink alcohol. ? Take sleeping pills or medicines that cause drowsiness. ? Make important decisions or sign legal documents. ? Take care of children on your own. Eating and drinking Follow the diet that is recommended by your health care provider. If you vomit, drink water, juice, or soup when you can drink without vomiting. Make sure you have little or no nausea before eating solid foods. General instructions Take kegx-yqi-ynxpjcq and prescription medicines only as told by your health care provider. If you have sleep apnea, surgery and certain medicines can increase your risk for breathing problems. Follow instructions from your health care provider about wearing your sleep device: ? Anytime you are sleeping, including during daytime naps. ? While taking prescription pain medicines, sleeping medicines, or medicines that make you drowsy. If you smoke, do not smoke without supervision. Keep all follow-up visits as told by your health care provider. This is important. Contact a health care provider if: You keep feeling nauseous or you keep vomiting. You feel light-headed. You develop a rash. You have a fever. Get help right away if: You have trouble breathing. Summary For several hours after your procedure, you may feel sleepy and have poor judgment. Have a responsible adult stay with you for at least 24 hours or until you are awake and alert. This information is not intended to replace advice given to you by your health care provider. Make sure you discuss any questions you have with your health care provider. Document Released: 05/23/2016 Document Revised: 05/01/2018 Document Reviewed: 05/23/2016 [employer] Patient Education 2020 [employer]. Monitored Anesthesia Care, Care After These instructions provide you with information about caring for yourself after your procedure. Your health care provider may also give you more specific instructions. Your treatment has been plannedaccording to current medical practices, but problems sometimes occur. Call your health care provider if you have any problems or questions after your procedure. What can I expect after the procedure? After your procedure, you may: Feel sleepy for several hours. Feel clumsy and have poor balance for several hours. Feel forgetful about what happened after the procedure. Have poor judgment for several hours. Feel nauseous or vomit. Have a sore throat if you had a breathing tube during the procedure. Follow these instructions at home: For at least 24 hours after the procedure: Have a responsible adult stay with you. It is important to have someone help care for you until youare awake and alert. Rest as needed. Do not: ? Participate in activities in which you could fall or become injured. ? Drive. ? Use heavy machinery. ? Drink alcohol. ? Take sleeping pills or medicines that cause drowsiness. ? Make important decisions or sign legal documents. ? Take care of children on your own. Eating and drinking Follow the diet that is recommended by your health care provider. If you vomit, drink water, juice, or soup when you can drink without vomiting. Make sure you have little or no nausea before eating solid foods. General instructions Take yguv-fcq-starvev and prescription medicines only as told by your health care provider. If you have sleep apnea, surgery and certain medicines can increase your risk for breathing problems. Follow instructions from your health care provider about wearing your sleep device: ? Anytime you are sleeping, including during daytime naps. ? While taking prescription pain medicines, sleeping medicines, or medicines that make you drowsy. If you smoke, do not smoke without supervision. Keep all follow-up visits as told by your health care provider. This is important. Contact a health care provider if: You keep feeling nauseous or you keep vomiting. You feel light-headed. You develop a rash. You have a fever. Get help right away if: You have trouble breathing. Summary For several hours after your procedure, you may feel sleepy and have poor judgment. Have a responsible adult stay with you for at least 24 hours or until you are awake and alert. This information is not intended to replace advice given to you by your health care provider. Make sure you discuss any questions you have with your health care provider. Document Released: 05/23/2016 Document Revised: 05/01/2018 Document Reviewed: 05/23/2016 [employer] Patient Education 2020 [employer]. Additional Information VACCINATE! IT SAVES LIVES! Members of the community who have not yet received the COVID-19 vaccine and would like to receive it can visit one of [facility] vaccine clinics. There are many vaccine clinic locations within the [facility]. For locations and available times, please visit https://gettheshot.coronavirus.[place].gov/. It is important to note that some COVID mobile vaccine clinics are held outdoors and may be canceled in rainy or stormy conditions. To learn more about pediatric vaccinations (ages 5-11), we invite you to visit the [facility] webpage. [email or web address]/[email or web address]-Tqjsvquglq-[email or web address]-Gyo stions.htmlTo learn more about the COVID-19 vaccine, we invite you to visit the CDC website for a list of frequently asked questions.https://www.cdc.gov/coronavirus/2019-ncov/vaccines/faq.html [facility] Patient Portal Access Instructions: Stay connected with your healthcare team and access your personal medical information anytime with the [facility] Patient Portal. Please follow the directions below to create your [facility] account: 1.Access the email account you provided upon registration to the hospital/physician office.2.Look for an invitation email from [facility].3.Open the email and access the invitation link: AcceptInvitation to [facility].4.Fill in the required avitia to create your account. To access your account, visit [email or web address]. Click the blue button labeled Access Patient Portal and then log in with the username and password that you created in the steps above. You will be able to view your test results, lab results, a summary of your visits, upcoming appointments and more. There is also a convenient messaging option where you can send secure messages to your p rovider. In addition, you will have the ability to download any documents or summaries to your computer and/or send the information securely to a physician. Remember that your healthcare information is confidential, so carefully consider who you will allowto register on the [facility] Patient Portal for access to your information. You can also access the [facility] Patient Portal on the [facility] buddy. Simply click on Patient Portal and then log into your account. If you would like to receive a full copy of your medical records, please contact the [facility] Medical Records Department by calling [phone], Tuesday through Tuesday between 8 a.m. and 4:30 p.m. HOW TO SAFELY DISPOSE OF PRESCRIPTION MEDICATIONS Please use one of the following methods to safely dispose of your unused medications. 1.Use a drug disposal kit: the drug disposal pouch allows you to safely discard your old and unuseddrugs. Ask your nurse to give you one when you are discharged.2.Visit a local take-back location: Many local pharmacies and police departments have programs that collect old and unwanted prescriptiondrugs. Call your local pharmacy or go to http://bit.ly/0K9Ah2z to find one close to you.3.Make use of household items: Use cat litter or old coffee grounds to dispose medications if other options arenot available. Mix your drugs with these household products, seal them in an airtight container andthrow it into the garbage. Call [facility]: [phone] to be sure your drugs can be disposed of in this way. Some medicines may require a different approach.4.Never flush your medications down the toilet. IF YOU HAVE BEEN PRESCRIBED AN OPIOID FOR PAIN If you have been prescribed an opioid (such as hydrocodone, oxycodone or morphine), it is critical to understand the possible side effects and risks of opioid pain medications. Even when taken as directed, opioids can have several side effects including: Tolerance, meaning you might need to take more of a medication for the same pain relief. Nausea, vomiting and/or constipation. Sleepiness, dizziness, dry mouth, confusion, depression or itching. Physical dependence, meaning you have withdrawal symptoms when a medication is stopped, can develop within a few days. KNOW YOUR RESPONSIBILITIES It is important to know exactly how much and how often to take the opioid pain medications you are prescribed. Never take opioids in higher amounts or more often than prescribed. Do not combine opioids with alcohol or other drugs that cause drowsiness, such as benzodiazepines, also known as benzos, including diazepam and alprazolam, muscle relaxants or sleep aids. Never sell or share prescription opioids. This is illegal. Store opioids in a secure place and out of reach of others (including children, family, friends and visitors). The last page of this document has been signed and retained as a CHART COPY. Signatures Patient Education Materials Capsule Endoscopy Colonoscopy, Adult, Care After, Yfds-qn-Qqhk Monitored Anesthesia Care, Care After Monitored Anesthesia Care, Care After Medication Leaflets My discharge plan and instructions have been reviewed and explained to me and ISIL MAURICA J understand my current condition and have read and understand these discharge instructions. I have received a written copy of the plan/instructions. If I have questions, I am aware that I should contact my doctor. 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 Signature: Date/Time: Relationship to Patient: Witness Name/Signature: Date/Time: [facility]01-12-2024 Anesthesiology Consult note Patient: GARDENIA MUJICA Age: 57 years Sex: Female : 1965 Associated Diagnoses: None Author: TAZ ROGER Assessment Postanesthesia assessment Vitals: Vital signs from flowsheet : Vital Signs 02/25/2023 11:05 EST Heart Rate Monitored 68 bpm bpm Respiratory Rate - Anes 13 br/min br/min 02/25/2023 11:00 EST Heart Rate Monitored 68 bpm bpm Respiratory Rate - Anes 16 br/min br/min Systolic Blood Pressure Non-Invasive 116 mmHg mmHg Diastolic Blood Pressure Non-Invasive 58 mmHg mmHg 02/25/2023 10:55 EST Heart Rate Monitored 61 bpm bpm Respiratory Rate - Anes 14 br/min br/min Systolic Blood Pressure Non-Invasive 122 mmHg mmHg Diastolic Blood Pressure Non-Invasive 62 mmHg mmHg 02/25/2023 10:50 EST Heart Rate Monitored 74 bpm bpm Respiratory Rate - Anes 25 br/min br/min Systolic Blood Pressure Non-Invasive 128 mmHg mmHg Diastolic Blood Pressure Non-Invasive 64 mmHg mmHg 02/25/2023 10:48 EST Systolic Blood Pressure Non-Invasive 127 mmHg mmHg Diastolic Blood Pressure Non-Invasive 94 mmHg mmHg 02/25/2023 10:45 EST Respiratory Rate - Anes 0 br/min br/min 02/25/2023 7:40 EST Temperature Temporal Artery 36.3 DegC Peripheral Pulse Rate 82 bpm Respiratory Rate 15 br/min Systolic Blood Pressure Non-Invasive 152 mmHg HI Diastolic Blood Pressure Non-Invasive 87 mmHg , Measurements from flowsheet . Mental status: alert & oriented x 4. Respiratory function: respirations are non-labored. Respiratory support: none. CV function: Normal rate. Cardiovascular support: none. Pain. Nausea status: see nursing documentation of medications. Postoperative hydration status: within normal limits. Digitally Signed by TAZ ROGER on 02/25/2023 11:07 AM [facility]01-12-2024 Anesthesiology Consult note Patient: GARDENIA MUJICA Age: 57 years Sex: Female : 1965 Associated Diagnoses: None Author: TAZ ROGER Preoperative Information Time of last solid food intake: 02/25/2023 00:00:00 Time of last clear liquid intake: 02/25/2023 05:30:00 Anesthesia history Patient's history: negative. Family's history: negative. Health Status Allergies: Allergic Reactions (Selected) NKA, Allergies (1) ActiveReaction NKANone Documented Current medications: (Selected) Inpatient Medications Ordered LR 1,000 mL: 50 mL/hr, Intravenous gentamicin: 150 mg, 3.75 mL, 107.5 mL/hr, IV Piggyback, Once Prescriptions Prescribed Protonix 40 mg oral enteric coated tablet: 80 mg, 2 tab(s), Oral, BID, 120 tab(s), 5 Refill(s) sucralfate 1 g oral tablet: 1 gram(s), 1 tab(s), Oral, TID, for 30 day(s), 90 tab(s), 0 Refill(s) Documented Medications Documented Coumadin: 3 mg, Oral, qDay lisinopril 20 mg oral tablet: 20 mg, 1 tab(s), Oral, Daily, 100 tab(s), 0 Refill(s), Medications (2) Active Scheduled: (1) gentamicin 150 mg 3.75 mL, IV Piggyback, Once Continuous: (1) Lactated Ringers 1,000 mL 1,000 mL, Intravenous, 50 mL/hr PRN: (0) Problem list: Medical BMI 32.0-32.9,adult / SNOMED CT 843666328 / Confirmed Chest pain / SNOMED CT 40278574 / Confirmed Hyperlipidemia / SNOMED CT [id number] / Confirmed Hypertension / SNOMED CT 50333716 / Confirmed Dissociative amnesia / SNOMED CT 661762888 / Confirmed PTSD - Post-traumatic stress disorder / SNOMED CT 506032495 / Confirmed Weight gain / SNOMED CT 29315900 / Confirmed, Active Problems (10) Aortic valve replaced BMI 32.0-32.9,adult Chest pain Disassociation disorder Dissociative amnesia History of hysterectomy Hyperlipidemia Hypertension PTSD - Post-traumatic stress disorder Weight gain Histories Past Medical History: Active Hypertension (30840046) Hyperlipidemia ([id number]) Family History: HTN - Hypertension Mother Procedure history: Esophagogastroduodenoscopy ([id number]) on 11/05/2022 at 57 Years. Stress testing using pharmacologic-induced stress ([id number]) on 10/10/2020 at 55 Years. Comments: 07/02/2021 12:10 EDT - Anna Carty LPN-normal CXR - Chest X-ray ([id number]) on 09/10/2020 at 55 Years. Comments: 07/02/2021 12:15 EDT Anna Dukes LPN-mild vascualr congestion Femur ([id number]). Hysterectomy (805080993). Heart (794507216). Comments: 11/10/2013 12:01 KYE SAMANO artificial heart valve, aorta Cholecystectomy (78305696). Sternotomy (14451879). Replacement of aortic valve (96991434). Social History Social & Psychosocial Habits Alcohol 05/19/2021 Use: Never 2Risk Assessment: No Risk Substance Abuse 05/19/2021 Use: Never 2Risk Assessment: No Risk Tobacco 02/02/2020 Tobacco Use: Never (less than 100 in l 2Risk Assessment: No Risk Home/Environment 05/19/2021 Primary Digital Strategy Director: self Nutrition/Health 05/19/2021 Type of diet: Regular Appetite Good Eating Difficulties None Caffeine intake amount: One pop daily and random coffee . Physical Examination Vital Signs 02/25/2023 10:50 EST Heart Rate Monitored 74 bpm bpm Respiratory Rate - Anes 25 br/min br/min 02/25/2023 10:45 EST Respiratory Rate - Anes 0 br/min br/min 02/25/2023 7:40 EST Temperature Temporal Artery 36.3 DegC Peripheral Pulse Rate 82 bpm Respiratory Rate 15 br/min Systolic Blood Pressure Non-Invasive 152 mmHg HI Diastolic Blood Pressure Non-Invasive 87 mmHg Vital Signs(last 24 hrs) Last Charted Heart Rate [id number] bpm (FEB 25 10:50) Resp Rate 15 br/min (FEB 25 07:40) SBPH 152mmHg (FEB 25 07:40) DBP87 mmHg (FEB 25 07:40) BMI31.81 (FEB 25 07:49) Measurements from flowsheet : Measurements 02/25/2023 7:49 EST Height 162.5 cm Admission Weight 84 kg Weight Method Stated [place] Body Weight 54.65 kg BSA Admission 1.89 Body Mass Index 31.81 kg/m2 02/25/2023 7:40 EST Height 162.5 cm Admission Weight 84 kg [place] Body Weight 54.65 kg Admission Body Mass Index 31.81 m2 Pain assessment: Pain Assessment 02/25/2023 7:40 EST Primary Pain Intensity 0 Pain Scale Type 0-10 Pain scale . General: Alert and oriented. Airway: Normal temporomandibular joint mobility, Normal mouth, Normal neck range of motion. Mallampati classification: III (soft palate, base of uvula visible). Dentition Evaluation: Denies loose/chipped teeth. Respiratory: Respirations are non-labored. Cardiovascular: Normal rate. Neurologic: Alert, Oriented. Review / Management Results review: No qualifying data available , Lab results 02/25/2023 10:50 EST Heart Rate Monitored 74 bpm bpm Respiratory Rate - Anes 25 br/min br/min Oxygen Saturation 100 % % 02/25/2023 10:48 EST SN - CTm - Anesthesia Start Time Anesthesia Start 02/25/2023 10:47 EST SN - GCD - ASA Class 3 02/25/2023 10:46 EST SN - CAt - Case Attendee SN - CAt - Case Attendee 02/25/2023 10:46 EST [place] History and Physical 02/25/2023 10:45 EST Respiratory Rate - Anes 0 br/min br/min 02/25/2023 10:01 EST ampicillin 2 gram(s) gram(s) Sodium Chloride 0.9% 100 mL mL 02/25/2023 8:27 EST Lactated Ringers Injection Begin Bag 1,000 mL mL 02/25/2023 8:25 EST Wrist Left 02/25/2023 24 gauge Peripheral IV Activity: Insert new site Peripheral IV Dressing Condition: Clean, Dry, Intact Peripheral IV Dressing Activity: Applied Peripheral IV Line Status/Patency: Infusion flows sluggishly Peripheral IV Site Condition: No complications Peripheral IV Equipment: Extension set Peripheral IV Number of Attempts: 4 (Modified) 02/25/2023 7:49 EST Designated Person #1 We May Share PHI Marques Magana [phone] Designated Person #1 Relationship Son Designated Person #2 We May Share PHI Keivn Rodriguez/ son Designated Person #2 Relationship Son Height 162.5 cm Admission Weight 84 kg Weight Method Stated [place] Body Weight 54.65 kg BSA Admission 1.89 Body Mass Index 31.81 kg/m2 Status No, per patient Sensory Deficits None Infectious Disease Symptoms Patient states no symptoms Infectious Disease Recent Exposure No Alcohol and Drug Use No Employee of Institutional Living No Health Care Employee No History of Exposure to TB No History of Positive Chest X-Ray for TB No History of Positive TB Skin Test No Homeless No Known Immunosuppression No Recent Immigrant No Resident of Institutional Living No Bloody Sputum No Fatigue No Fever No Loss of Appetite No Night Sweats No Persistent Cough > 3 Weeks No Weight Loss No Barriers to Learning None evident Teaching Method Explanation Preferred Spoken Language Urdu Preferred Written Language Urdu Information Given by Patient Patient's Current Physicians [facility] in [place] Discharge To, Anticipated Home independently Prev Test Positive/Diagnosis w/COVID-19 No Current Quarantine/Isolated any Illness No Any Contact with Sick Animals/Birds No Traveled Anywhere in Last 30 Days No No Personal Devices, Patient Valuables Glasses Admission Note-Nursing Procedure/Therapy Intake 02/25/2023 7:48 EST SN - Proc - Anesthesia Type MAC SN - Proc - EBL 0 mL SN - Proc - Actual Procedure COLONOSCOPY 02/25/2023 7:47 EST SN - PP - Body Position Lateral Right Side-up Standard Intra-op 02/25/2023 7:46 EST SN - GCD - Case Level OPD Level 3 02/25/2023 7:45 EST SN - Cul - Culture Type No Specimen per Surgeon SN - Cul - Kind Specimen 02/25/2023 7:45 EST SN - CAt - Case Attendee SN - CAt - Case Attendee SN - CAt - Case Attendee SN - CAt - Case Attendee SN - CAt - Role Performed Cnc Machine Programmer 1 SN - CAt - Role Performed TOUR COUNSELOR SN - CAt - Role Performed Engineering Design Manager 02/25/2023 7:45 EST SN - CAt - Case Attendee SN - CAt - Case Attendee SN - CAt - Role Performed Primary Surgeon 02/25/2023 7:44 EST GI Prep Completed Yes GI Prep Results Liquid, Yellow 02/25/2023 7:43 EST Allergies Yes Consent Form Signed Yes Patient Dressed In Hospital gown History & Physical On Chart Yes NPO Status Maintained Patient ID Band on and Verified Yes Implants Verified Yes Pacemaker/AICD Verified Yes Site Verified by Patient/Family Yes Last Fluid Intake 02/25/2023 6:00 Last Food Intake 02/24/2023 7:00 02/25/2023 7:40 EST Height 162.5 cm Admission Weight 84 kg [place] Body Weight 54.65 kg Admission Body Mass Index 31.81 m2 Temperature Temporal Artery 36.3 DegC Peripheral Pulse Rate 82 bpm Respiratory Rate 15 br/min Systolic Blood Pressure Non-Invasive 152 mmHg HI Diastolic Blood Pressure Non-Invasive 87 mmHg Primary Pain Intensity 0 Pain Scale Type 0-10 Pain scale Heart Rhythm Regular Respirations Unlabored Oxygen Saturation 97 % Abdomen Description Non-distended, Symmetric Abdomen Palpation Non-Tender Bowel Sounds All Quadrants Present Urinary Elimination Voiding, no difficulties Skin Temperature Warm Skin Description Normal for ethnicity Skin Integrity Intact Characteristics of Speech Clear Level of Consciousness Alert Strength All Extremities Strong Tone All Extremities Normal Sensation All Extremities Intact Affect/Behavior Appropriate, Calm, Cooperative Orientation Oriented x 4 Activity Status ADL Awake, Resting Standard Safety ID band on, Call device within reach, Bed in low position, Wheels locked, Upper/Half-Length side-rails up, Phone within reach, personal items within reach, Safety level maintained . Assessment and Plan [place] [employer]hesi[employer] (ASA) physical status classification: Class III. Anesthetic Preoperative Plan Anesthetic technique: MAC. Informed consent: signed by patient. Digitally Signed by TAZ ROGER on 02/25/2023 10:57 AM [facility]01-12-2024 Note [place] ADMISSION HISTORY AND PHYSICIAL CHIEF COMPLAINT: HISTORY OF PRESENT ILLNESS: REVIEW OF SYSTEMS: ACTIVE PROBLEMS: (10) Aortic valve replaced ([id number]) BMI 32.0-32.9,adult (574147211) Chest pain (50241153) Disassociation disorder (20701621) Dissociative amnesia (907494466) History of hysterectomy (090516953) Hyperlipidemia ([id number]) Hypertension (18767846) PTSD - Post-traumatic stress disorder (239473317) Weight gain (22571686) MEDICATIONS: Active Inpt Meds: None Active PRN Meds: None One Time Meds: (Completed) ampicillin Start: 02/25/23 9:45:00 EST, Dose = 2 gram(s), IV Piggyback, Once, Stop: 02/25/23 9:45:00 EST, Rate: 200 mL/hr, Infuse over: 30 minute(s), 0, 02/25/23 9:34:00 EST (Ordered) gentamicin Start: 02/25/23 9:45:00 EST, Dose = 150 mg, = 3.75 mL, IV Piggyback, Once, Stop: 02/25/23 9:45:00 EST, Rate: 107.5 mL/hr, Infuse over: 30 minute(s), 0, 02/25/23 9:36:00 EST Active IV Meds: Lactated Ringers Infusion 1,000 mL (LR 1,000 mL) Start: 02/25/23 7:37:00 EST, Rate: 50 mL/hr, 02/25/23 7:37:00 EST ALLERGIES: (1) NKA FAMILY HISTORY: SOCIAL HISTORY: PHYSICAL EXAM: VITALS: [id number](kg) 02/25 07:4036.3--814257--96/12 84.0 02/25 84.0 24 Hr Tmax: 36.3 at 02/25 07:40 36 Hr Tmax: 36.3 at 02/25 07:40 Vital Signs are the last 5 in the past 48 hours. Weights display the last 5 within 7 days. Initial Wt: 02/25 84.0 kg 185 lb Current Wt: 02/25 84.0 kg 185 lb GENERAL: HEENT: CARDIOVASCULAR: RESPIRATORY: ABDOMEN: EXREMETIES: NEUROLOGICAL: PSYCHIATRIC: LABS: No 36hr Lab Data DIAGNOSTICS: IMPRESSION: PLAN: History and Physical Update I have examined the patient; reviewed the H&P and there are no changes to the H&P unless noted below. Digitally Signed by DESHAWN AVILA MD on 02/25/2023 10:46 AM [facility]10-26-2023 Note. MICRO - Microbiology PROCEDURE: Urine Culture [*1] SOURCE: Urine, Clean Catch BODY SITE: COLLECTED DATE/TIME: 12/07/2022 09:22 EDT RECEIVED DATE/TIME: 12/07/2022 13:45 EDT START DATE/TIME: 12/07/2022 13:45 EDT FREE TEXT SOURCE: FINAL REPORTS Final Report [] Verified Date/Time/Personnel: 12/09/2022 07:34 EDT 10,000 - 50,000 cfu/ml Mixed growth consistent with normal urogenital adalberto. PRELIMINARY REPORTS Preliminary Report [] Verified Date/Time/Personnel: 12/08/2022 09:27 EDT No growth to date Performing Locations *1: This test was performed at: [facility], [address] [place] [address], [id number] , [facility] ([place])12-07-2022 Evaluation + Plan note Diagnostic Tests Pending * Urine Culture 12/07/22 [facility] 10-24-2023 Hospital Discharge instructions Patient Education 12/07/2022 11:44:51 Back Care Tips Back Care Tips Caring for your back These are things you can do to prevent a recurrence of acute back pain and to reduce symptoms from chronic back pain: Maintain a healthy weight. If you are overweight, losing weight will help most types of back pain. Exercise is an important part of recovery from most types of back pain. The muscles behind and in front of the spine support the back. This means strengthening both the back muscles and the abdominalmuscles will provide better support for your spine. Swimming and brisk walking are good overall exercises to improve your fitness level. Practice safe lifting methods (below). Practice good posture when sitting, standing and walking. Avoid prolonged sitting. This puts more stress on the lower back than standing or walking. Wear quality shoes with sufficient arch support. Foot and ankle alignment can affect back symptoms.Women should avoid wearing high heels. Therapeutic massage can help relax the back muscles without stretching them. During the first 24 to 72 hours after an acute injury or flare-up of chronic back pain, apply an ice pack to the painful area for 20 minutes and then remove it for 20 minutes, over a period of 60 to 90 minutes, or several times a day. As a safety precaution, do not use a heating pad at bedtime. Sleeping on a heating pad can lead to skin jarvis or tissue damage. You can alternate ice and heat therapies. Medicines Talk to your healthcare provider before using medicines, especially if you have other medical problems or are taking other medicines. You may use acetaminophen or ibuprofen to control pain, unless your healthcare provider prescribed other pain medicine. If you have chronic conditions like diabetes, liver or kidney disease, stomach ulcers, or gastrointestinal bleeding, or are taking blood thinners, talk with your healthcare provider before taking any medicines. Be careful if you are given prescription pain medicines, narcotics, or medicine for muscle spasm. They can cause drowsiness, affect your coordination, reflexes, and judgment. Do not drive or operate heavy machinery while taking these types of medicines. Take prescription pain medicine only as prescribed by your healthcare provider. Lumbar stretch Here is a simple stretching exercise that will help relax muscle spasm and keep your back more limber. If exercise makes your back pain worse, don t do it. Lie on your back with your knees bent and both feet on the ground. Slowly raise your left knee to your chest as you flatten your lower back against the floor. Hold for 5 seconds. Relax and repeat the exercise with your right knee. Do 10 of these exercises for each leg. Safe lifting method Don t bend over at the waist to lift an object off the floor. Instead, bend your knees and hips in a squat. Keep your back and head upright Hold the object close to your body, directly in front of you. Straighten your legs to lift the object. Lower the object to the floor in the reverse fashion. If you must slide something across the floor, push it. Posture tips Sitting Sit in chairs with straight backs or low-back support. Keep your knees lower than your hips, with your feet flat on the floor. When driving, sit up straight. Adjust the seat forward so you are not leaning toward the steering wheel. A small pillow or rolled towel behind your lower back may help if you are driving long distances. Standing When standing for long periods, shift most of your weight to one leg at a time. Alternate legs every few minutes. Sleeping The best way to sleep is on your side with your knees bent. Put a low pillow under your head to support your neck in a neutral spine position. Avoid thick pillows that bend your neck to one side. Puta pillow between your legs to further relax your lower back. If you sleep on your back, put pillowsunder your knees to support your legs in a slightly flexed position. Use a firm mattress. If your mattress sags, replace it, or use a 1/2-inch plywood board under the mattress to add support. Follow-up care Follow up with your healthcare provider, or as advised. If X-rays, a CT scan or an MRI scan were taken, they will be reviewed by a radiologist. You will benotified of any new findings that may affect your care. Call 911 Call 911 if any of the following occur: Trouble breathing Confusion Very drowsy Fainting or loss of consciousness Rapid or very slow heart rate Loss of bowel or bladder control When to seek medical advice Call your healthcare provider right away if any of the following occur: Pain becomes worse or spreads to your arms or legs Weakness or numbness in one or both arms or legs Numbness in the groin area [id number] [employer] [place] [address]. All rights reserved. This information is not intended as a substitute for professional medical care. Always follow yourhealthcare professional's instructions. Follow Up Care 12/07/2022 09:14:15 With:[facility] Address: [address] [place] [id number]- When:2-4 days [facility] 10-24-2023 Note Discharge Instructions Thank you for allowing [facility] to assist you with your healthcare needs. The following is importantdischarge information regarding your hospital visit. Diagnosis from Today's Visit Back pain What to Do Next Instructions from Your Care Team Recommend following up with your medical care team. Does not appear that you have evidence of a malignancy involving her bladder on CT scan. If you have worsening symptoms do not hesitate to return. Do not drive or operate heavy machinery while on the muscle relaxer. Discharge Return to Work, School, or Sports (Return to Work, School, or Sports) - Ordered -- 12/08/22, May return to: work, 12/07/22 12:19:00 EDT Post Acute Orders No qualifying data available. You Need to Schedule the Following Appointments Follow Up with [facility] When Within 2-4 days Where: [address] [place] [address]- Allergies NKA Medications Please ask your primary doctor or pharmacist before taking any other medication not listed, including over the counter drugs, herbal medications, vitamins and or supplements as they may interact withyour home medications. What How Much When Instructions Last Dose New cyclobenzaprine (cyclobenzaprine 5 mg oral tablet) 1 tab(s) by mouth Three (3) times a day Duration: 5 Days Printed Prescription New lidocaine topical (lidocaine 5% topical patch) 1 patch(es) Topical Once a day Duration: 7 Days remove patches after 12 hours Printed Prescription New naproxen (naproxen 250 mg oral tablet) 1 tab(s) by mouth Two (2) times a day Duration: 7 Days Printed Prescription Please take this list to your next doctor s visit. Bring all medications you take, including over the counter medications, herbals and other supplements with you to your doctor s visit. Patients and families are reminded to discard old lists and to update any records with all medication providers or retail pharmacies. Education Materials Back Care Tips Caring for your back These are things you can do to prevent a recurrence of acute back pain and to reduce symptoms from chronic back pain: Maintain a healthy weight. If you are overweight, losing weight will help most types of back pain. Exercise is an important part of recovery from most types of back pain. The muscles behind and in front of the spine support the back. This means strengthening both the back muscles and the abdominalmuscles will provide better support for your spine. Swimming and brisk walking are good overall exercises to improve your fitness level. Practice safe lifting methods (below). Practice good posture when sitting, standing and walking. Avoid prolonged sitting. This puts more stress on the lower back than standing or walking. Wear quality shoes with sufficient arch support. Foot and ankle alignment can affect back symptoms.Women should avoid wearing high heels. Therapeutic massage can help relax the back muscles without stretching them. During the first 24 to 72 hours after an acute injury or flare-up of chronic back pain, apply an ice pack to the painful area for 20 minutes and then remove it for 20 minutes, over a period of 60 to 90 minutes, or several times a day. As a safety precaution, do not use a heating pad at bedtime. Sleeping on a heating pad can lead to skin jarvis or tissue damage. You can alternate ice and heat therapies. Medicines Talk to your healthcare provider before using medicines, especially if you have other medical problems or are taking other medicines. You may use acetaminophen or ibuprofen to control pain, unless your healthcare provider prescribed other pain medicine. If you have chronic conditions like diabetes, liver or kidney disease, stomach ulcers, or gastrointestinal bleeding, or are taking blood thinners, talk with your healthcare provider before taking any medicines. Be careful if you are given prescription pain medicines, narcotics, or medicine for muscle spasm. They can cause drowsiness, affect your coordination, reflexes, and judgment. Do not drive or operate heavy machinery while taking these types of medicines. Take prescription pain medicine only as prescribed by your healthcare provider. Lumbar stretch Here is a simple stretching exercise that will help relax muscle spasm and keep your back more limber. If exercise makes your back pain worse, don t do it. Lie on your back with your knees bent and both feet on the ground. Slowly raise your left knee to your chest as you flatten your lower back against the floor. Hold for 5 seconds. Relax and repeat the exercise with your right knee. Do 10 of these exercises for each leg. Safe lifting method Don t bend over at the waist to lift an object off the floor. Instead, bend your knees and hips in a squat. Keep your back and head upright Hold the object close to your body, directly in front of you. Straighten your legs to lift the object. Lower the object to the floor in the reverse fashion. If you must slide something across the floor, push it. Posture tips Sitting Sit in chairs with straight backs or low-back support. Keep your knees lower than your hips, with your feet flat on the floor. When driving, sit up straight. Adjust the seat forward so you are not leaning toward the steering wheel. A small pillow or rolled towel behind your lower back may help if you are driving long distances. Standing When standing for long periods, shift most of your weight to one leg at a time. Alternate legs every few minutes. Sleeping The best way to sleep is on your side with your knees bent. Put a low pillow under your head to support your neck in a neutral spine position. Avoid thick pillows that bend your neck to one side. Puta pillow between your legs to further relax your lower back. If you sleep on your back, put pillowsunder your knees to support your legs in a slightly flexed position. Use a firm mattress. If your mattress sags, replace it, or use a 1/2-inch plywood board under the mattress to add support. Follow-up care Follow up with your healthcare provider, or as advised. If X-rays, a CT scan or an MRI scan were taken, they will be reviewed by a radiologist. You will benotified of any new findings that may affect your care. Call 911 Call 911 if any of the following occur: Trouble breathing Confusion Very drowsy Fainting or loss of consciousness Rapid or very slow heart rate Loss of bowel or bladder control When to seek medical advice Call your healthcare provider right away if any of the following occur: Pain becomes worse or spreads to your arms or legs Weakness or numbness in one or both arms or legs Numbness in the groin area [id number] [employer]. [address] [place] [address]. All rights reserved. This information is not intended as a substitute for professional medical care. Always follow yourhealthcare professional's instructions. Additional Information VACCINATE! IT SAVES LIVES! Members of the community who have not yet received the COVID-19 vaccine and would like to receive it can visit one of [facility] vaccine clinics. There are many vaccine clinic locations within the [facility]. For locations and available times, please visit www.gettheshot.coronavirus.[place].gov/. It is important to note that some COVID mobile vaccine clinics are held outdoors and may be canceled in rainy or stormy conditions. To learn more about pediatric vaccinations (ages 5-11), we invite you to visit the [facility] webpage. https://www.[facility].org/pages/8429-Pwvyx-Rviqtezeuiu-Brvjojvuna-Qljma-Bzo stions.htmlTo learn more about the COVID-19 vaccine, we invite you to visit the CDC website for a list of frequently asked questions. https://www.cdc.gov/coronavirus/2019-ncov/vaccines/faq.html [facility] Patient Portal Access Instructions: Stay connected with your healthcare team and access your personal medical information anytime with the [facility] Patient Portal. If you would like a full copy of your medical records please contact the [facility] Medical Records Department Tuesday through Tuesday between 8a.m. and 4:30p.m. Please follow the directions below to access the portal: 1.Access the email account you provided upon registration to the [facility].2.Look for an invitation email from [facility].3.Open the email and access the invitation link: Accept Invitation to [facility]4.Fill in the required avitia to create your account. Sign into [email or web address] with your username and password that you created in the above steps to stay up to date. You can then view a summary of results, a summary of your visits, and the ability to download your summaries to your computer or send the information securely to a physician. Remember that your healthcare information is confidential, so carefully consider who you will allow to register on the [facility] Patient Portal for access to your information. You can also access the [facility] Patient Portal on the [employer]. Simply click on Health Records under [employer] and then click on the [employer] logo. HOW TO SAFELY DISPOSE OF PRESCRIPTION MEDICATIONS Please use one of the following methods to safely dispose of your unused medications. 1.Use a drug disposal kit: the drug disposal pouch allows you to safely discard your old and unuseddrugs. Ask your nurse to give you one when you are discharged.2.Visit a local take-back location: Many local pharmacies and police departments have programs that collect old and unwanted prescriptiondrugs. Call your local pharmacy or go to http://[employer]/2N3Ps2p to find one close to you.3.Make use of household items: Use cat litter or old coffee grounds to dispose medications if other options arenot available. Mix your drugs with these household products, seal them in an airtight container andthrow it into the garbage. Call [facility]: [phone] to be sure your drugs can be disposed of in this way. Some medicines may require a different approach.4.Never flush your medications down the toilet. IF YOU HAVE BEEN PRESCRIBED AN OPIOIDS FOR PAIN If you have been prescribed an opioid (such as hydrocodone, oxycodone or morphine), it is critical to understand the possible side effects and risks of opioid pain medications. Even when taken as directed, opioids can have several side effects including: Tolerance, meaning you might need to take more of a medication for the same pain relief. Nausea, vomiting and/or constipation. Sleepiness, dizziness, dry mouth, confusion, depression or itching. Physical dependence, meaning you have withdrawal symptoms when a medication is stopped ? this can develop within a few days. KNOW YOUR RESPONSIBILITIES It is important to know exactly how much and how often to take the opioid pain medications you are prescribed. Never take opioids in higher amounts or more often than prescribed. Do not combine opioids with alcohol or other drugs that cause drowsiness, such as benzodiazepines, also known as benzos,including diazepam and alprazolam, muscle relaxants or sleep aids. Never sell or share prescriptionopioids. This is illegal. Store opioids in a secure place and out of reach of others (including children, family, friends and visitors). The last page(s) of this document has been signed and retained as a CHART COPY Signatures Patient Education Materials Back Care Tips Medication Leaflets My discharge plan and instructions have been reviewed and explained to me and ISIL MAURICA J understand my current condition and have read and understand these discharge instructions. I have received a written copy of the plan/instructions. If I have questions, I am aware that I should contact my doctor. 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 Multiplanar reformatted images are provided for review. Automated exposure control, iterative reconstruction, and/or weight based adjustment of the mA/kV was utilized to reduce the radiation dose to as low as reasonably achievable. COMPARISON: June 02, 2022 HISTORY: ORDERING SYSTEM PROVIDED HISTORY: Reason for Exam: lower back pain for about 1 week. also hx of hematuria lower back pain, reports concern for hematuria and possible bladder mass FINDINGS: Moderate degenerative changes are present at the lower lumbar spine. Metallic artifact emanates from postoperative change at the proximal left femur. The lung bases are unremarkable. Small sliding hiatal hernia noted. Cholecystectomy clips are present. No focal liver lesions seen. The spleen, adrenal glands and pancreas are unremarkable. No kidney abnormality seen. Gastric postoperative changes are present. No adenopathy, free air, or free fluid identified. The urinary bladder is grossly normal. No GI tract abnormality is visible. No additional contributory abnormality seen. IMPRESSION: No acute abnormality identified. No definite cause for hematuria is evident on this exam. Interpreted by: Zackery Yeung MD Preliminary Report By: Zackery Yeung MD Electronically signed By Zackery Yeung MD Dictated Date: 12/07/2022 10:44:34 AM Prelim Date: 12/07/2022 10:52:41 AM Sign Date: 12/07/2022 10:52:41 AM Ordering Provider: [facility]06-29-2023 Hospital Discharge instructions Patient Education 08/12/2022 18:58:11 Near Syncope, Unknown Near-Fainting with Uncertain Cause Fainting (syncope) is a temporary loss of consciousness (passing out). This happens when blood flowto the brain is reduced. Near-fainting (near-syncope) is like fainting, but you do not fully pass out. Instead, you feel like you are going to pass out, but do not actually lose consciousness. Signs and symptoms The following are symptoms of near-fainting: Feeling lightheaded or like you are going to faint Weak pulse Nausea Sweating Blurred vision or feeling like your vision is fading Palpitations Chest pain Hard time breathing Feeling cool and clammy Causes This happens when your blood pressure suddenly drops, and not enough blood flows to your brain. Common minor causes include: Sudden emotional stress such as fear, pain, panic, or the sight of blood Straining or overexertion, such as straining while using the toilet, coughing, or sneezing Standing up too quickly, or standing up for too long a time More serious causes include: Very slow, fast, or irregular heart rate (arrhythmia) Dehydration Significant blood loss Medicines, or a recent change in medicines. Medicines that can cause fainting include blood pressure or heart medicines. Heart attack Heart valve problems Remember, even minor causes can become serious if you fall and injure yourself, or are driving. Youmay need more tests. It is very important that you follow up with your doctor as advised. Home care The following guidelines will help you care for yourself at home: Rest today. Resume your normal activities as soon as you are feeling back to normal. If you become lightheaded or dizzy, lie down right away or sit with your head between your knees. Drink plenty of fluids and don't skip meals. Because the exact cause of your near fainting spell is not known, another spell could occur withoutwarning. To stay safe, do not drive a car or use dangerous equipment. Do not take a bath alone. Usea shower instead. Do not swim alone. You can resume these activities when your healthcare provider says that you are no longer in danger of having a near-fainting spell. Follow-up care Follow up with your healthcare provider, or as advised. Call 911 Call 911 if any of the following occur: Another near-fainting or full fainting spell occurs, and it is not explained by the common causes listed above Chest, arm, neck, jaw, back or abdominal pain Shortness of breath Weakness, tingling, or numbness in one side of the face, or in one arm or leg Slurred speech, confusion, trouble walking or seeing Seizure When to seek medical advice Call your healthcare provider right away if any of these occur: Changes in your medicines Occasional mild lightheadedness, especially when standing up too quickly or straining [id number] [employer]. [address] [place] [address], [place] [address]. All rights reserved. This information is not intended as a substitute for professional medical care. Always follow yourhealthcare professional's instructions. Follow Up Care 08/12/2022 16:55:43 With:[facility] Address: [address] [place], [place] [address] [address]- When:2-4 days With:Call Physician Referral Address:Unknown When:2-4 days [facility] 06-29-2023 Note ORIGINAL EXAMINATION: ONE XRAY VIEW OF THE CHEST 08/12/2022 6:16 pm COMPARISON: 11/19/2021 HISTORY: ORDERING SYSTEM PROVIDED HISTORY: Reason for Exam: near syncope FINDINGS: Median sternotomy changes. 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 Normal cardiomediastinal silhouette. No focal consolidation, large pleural effusion or pneumothorax. No acute osseous findings. Remote right posterior rib fractures. IMPRESSION: No acute radiographic findings. I have personally reviewed the images of this examination and agree with the resident's findings and interpretation. Interpreted by: Ameya Dean MD Preliminary Report By: Savanna Cantu Electronically signed By Ameya Dean MD Dictated Date: 08/12/2022 6:36:00 PM Prelim Date: 08/12/2022 6:38:16 PM Sign Date: 08/12/2022 7:19:21 PM [facility] Note Discharge Instructions Thank you for allowing [facility] to assist you with your healthcare needs. The following is importantdischarge information regarding your hospital visit. Diagnosis from Today's Visit Near syncope Shortness of breath What to Do Next Instructions from Your Care Team No qualifying data available. Post Acute Orders No qualifying data available. You Need to Schedule the Following Appointments Follow Up with [facility] When Within 2-4 days Where: [address] [place], [place] [address]Sol [facility] [place] [address]- Follow Up with Call Physician Referral When Within 2-4 days Allergies NKA Medications Please ask your primary doctor or pharmacist before taking any other medication not listed, including over the counter drugs, herbal medications, vitamins and or supplements as they may interact withyour home medications. What How Much When Instructions Last Dose Unchanged pantoprazole (Protonix 40 mg oral enteric coated tablet) 2 tab(s) by mouth Two (2) times a day Unchanged sucralfate (sucralfate 1 g oral tablet) 1 tab(s) by mouth Three (3) times a day Duration: 30 Days Unchanged warfarin (Coumadin) 3 Milligram by mouth Once a day Please take this list to your next doctor s visit. Bring all medications you take, including over the counter medications, herbals and other supplements with you to your doctor s visit. Patients and families are reminded to discard old lists and to update any records with all medication providers or retail pharmacies. Education Materials Near-Fainting with Uncertain Cause Fainting (syncope) is a temporary loss of consciousness (passing out). This happens when blood flowto the brain is reduced. Near-fainting (near-syncope) is like fainting, but you do not fully pass out. Instead, you feel like you are going to pass out, but do not actually lose consciousness. Signs and symptoms The following are symptoms of near-fainting: Feeling lightheaded or like you are going to faint Weak pulse Nausea Sweating Blurred vision or feeling like your vision is fading Palpitations Chest pain Hard time breathing Feeling cool and clammy Causes This happens when your blood pressure suddenly drops, and not enough blood flows to your brain. Common minor causes include: Sudden emotional stress such as fear, pain, panic, or the sight of blood Straining or overexertion, such as straining while using the toilet, coughing, or sneezing Standing up too quickly, or standing up for too long a time More serious causes include: Very slow, fast, or irregular heart rate (arrhythmia) Dehydration Significant blood loss Medicines, or a recent change in medicines. Medicines that can cause fainting include blood pressure or heart medicines. Heart attack Heart valve problems Remember, even minor causes can become serious if you fall and injure yourself, or are driving. Youmay need more tests. It is very important that you follow up with your doctor as advised. Home care The following guidelines will help you care for yourself at home: Rest today. Resume your normal activities as soon as you are feeling back to normal. If you become lightheaded or dizzy, lie down right away or sit with your head between your knees. Drink plenty of fluids and don't skip meals. Because the exact cause of your near fainting spell is not known, another spell could occur withoutwarning. To stay safe, do not drive a car or use dangerous equipment. Do not take a bath alone. Usea shower instead. Do not swim alone. You can resume these activities when your healthcare provider says that you are no longer in danger of having a near-fainting spell. Follow-up care Follow up with your healthcare provider, or as advised. Call 911 Call 911 if any of the following occur: Another near-fainting or full fainting spell occurs, and it is not explained by the common causes listed above Chest, arm, neck, jaw, back or abdominal pain Shortness of breath Weakness, tingling, or numbness in one side of the face, or in one arm or leg Slurred speech, confusion, trouble walking or seeing Seizure When to seek medical advice Call your healthcare provider right away if any of these occur: Changes in your medicines Occasional mild lightheadedness, especially when standing up too quickly or straining [id number] [employer]. [address] [place] [address]. All rights reserved. This information is not intended as a substitute for professional medical care. Always follow yourhealthcare professional's instructions. Additional Information VACCINATE! IT SAVES LIVES! Members of the community who have not yet received the COVID-19 vaccine and would like to receive it can visit one of [facility] vaccine clinics. There are many vaccine clinic locations within the [facility]. For locations and available times, please visit www.[email or web address].[place].gov/. It is important to note that some COVID mobile vaccine clinics are held outdoors and may be canceled in rainy or stormy conditions. To learn more about pediatric vaccinations (ages 5-11), we invite you to visit the [facility] webpage. https://www.[facility].org/pages/9704-Fconb-Mdknzhlrfdc-Mivxhdbuuu-Iwzlz-Qzq stions.htmlTo learn more about the COVID-19 vaccine, we invite you to visit the CDC website for a list of frequently asked questions. https://www.cdc.gov/coronavirus/2019-ncov/vaccines/faq.html [facility] Patient Portal Access Instructions: Stay connected with your healthcare team and access your personal medical information anytime with the [facility] Patient Portal. If you would like a full copy of your medical records please contact the [facility] Medical Records Department [place] through Tuesday between 8a.m. and 4:30p.m. Please follow the directions below to access the portal: 1.Access the email account you provided upon registration to the hospital.2.Look for an invitation email from [facility].3.Open the email and access the invitation link: Accept Invitation to [facility]4.Fill in the required avitia to create your account. Sign into [email or web address] with your username and password that you created in the above steps to stay up to date. You can then view a summary of results, a summary of your visits, and the ability to download your summaries to your computer or send the information securely to a physician. Remember that your healthcare information is confidential, so carefully consider who you will allow to register on the [facility] Patient Portal for access to your information. You can also access the [facility] Patient Portal on the [employer]. Simply click on Health Records under [employer] and then click on the [facility] logo. HOW TO SAFELY DISPOSE OF PRESCRIPTION MEDICATIONS Please use one of the following methods to safely dispose of your unused medications. 1.Use a drug disposal kit: the drug disposal pouch allows you to safely discard your old and unuseddrugs. Ask your nurse to give you one when you are discharged.2.Visit a local take-back location: Many local pharmacies and police departments have programs that collect old and unwanted prescriptiondrugs. Call your local pharmacy or go to http://[employer]/6M3Qq8c to find one close to you.3.Make use of household items: Use cat litter or old coffee grounds to dispose medications if other options arenot available. Mix your drugs with these household products, seal them in an airtight container andthrow it into the garbage. Call [facility]: [phone] to be sure your drugs can be disposed of in this way. Some medicines may require a different approach.4.Never flush your medications down the toilet. IF YOU HAVE BEEN PRESCRIBED AN OPIOIDS FOR PAIN If you have been prescribed an opioid (such as hydrocodone, oxycodone or morphine), it is critical to understand the possible side effects and risks of opioid pain medications. Even when taken as directed, opioids can have several side effects including: Tolerance, meaning you might need to take more of a medication for the same pain relief. Nausea, vomiting and/or constipation. Sleepiness, dizziness, dry mouth, confusion, depression or itching. Physical dependence, meaning you have withdrawal symptoms when a medication is stopped ? this can develop within a few days. KNOW YOUR RESPONSIBILITIES It is important to know exactly how much and how often to take the opioid pain medications you are prescribed. Never take opioids in higher amounts or more often than prescribed. Do not combine opioids with alcohol or other drugs that cause drowsiness, such as benzodiazepines, also known as benzos,including diazepam and alprazolam, muscle relaxants or sleep aids. Never sell or share prescriptionopioids. This is illegal. Store opioids in a secure place and out of reach of others (including children, family, friends and visitors). The last page(s) of this document has been signed and retained as a CHART COPY Signatures Patient Education Materials Near Syncope, Unknown Medication Leaflets My discharge plan and instructions have been reviewed and explained to me and I,GARDENIA MUJICA understand my current condition and have read and understand these discharge instructions. I have received a written copy of the plan/instructions. If I have questions, I am aware that I should contact my doctor. 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 Normal cardiomediastinal silhouette. No focal consolidation, large pleural effusion or pneumothorax. No acute osseous findings. Remote right posterior rib fractures. IMPRESSION: No acute radiographic findings. I have personally reviewed the images of this examination and agree with the resident's findings and interpretation. Interpreted by: Ameya Dean MD Preliminary Report By: Savanna Cabreraed Electronically signed By Ameya Dean MD Dictated Date: 08/12/2022 6:36:00 PM Prelim Date: 08/12/2022 6:38:16 PM Sign Date: 08/12/2022 7:19:21 PM Ordering Provider: [facility]04-21-2023 Hospital Discharge instructions Patient Education 06/04/2022 09:34:25 Peptic Ulcer Eating Plan Peptic Ulcer Eating Plan Peptic ulcers are sores that form on the lining of the stomach, esophagus, or the part of the smallintestine that is attached to the stomach (duodenum). These sores are also called stomach ulcers. When ulcers develop, they can cause a burning feeling in the stomach as well as bloating, nausea, vomiting, and poor appetite. If you have a history of peptic ulcers, it is important to keep track of what foods and drinks cause symptoms. What are tips for following this plan? Eat a healthy, well-balanced diet. This includes: ?Fresh fruits and vegetables. Eat a variety of colors of fruits and vegetables. ?Whole grains. Try to make sure at least half of the grains you eat each day are whole grains. ?Low-fat dairy. ?Lean meat, fish, poultry, eggs, beans, and nuts. ?Healthy fats, such as olive oil, grapeseed oil, or canola oil. Try to eat less than 8 teaspoons offats and oils each day. Avoid foods that cause irritation or pain. These may be different for different people. Keep a fooddiary to identify foods that cause symptoms. Avoid processed foods that have added salt and sugar. Avoid drinking alcohol. Avoid drinks with caffeine, such as cola, black tea, energy drinks, and coffee. Recommended foods Grains Whole grains. Vegetables All fresh or frozen vegetables. Low-sodium canned vegetables. Fruits All fresh, frozen, or dried fruit. Fruit canned in juice. Meats and other protein foods Lean cuts of meat. Skinless poultry. Fresh or canned fish. Eggs. Tofu. Nuts and nut butter. Dried beans. Low-sodium canned beans. Dairy Low-fat or nonfat (skim) milk. Nonfat or low-fat yogurt. Nonfat or low-fat cheese. Beverages Water. Soy or nut milks. Caffeine-free soft drinks. Herbal tea. Fats and oils [place] oil. Canola oil. Grapeseed oil. [place] oil. Seasoning and other foods Low-fat salad dressing. Ketchup. Low-fat mayonnaise. All spices except pepper. Low-sodium seasoningmixes. Foods to avoid Meats and other protein foods Fatty meats. Fried meats. Any meat that causes symptoms. Dairy Whole milk. Ice cream. Cream. Chocolate milk. Beverages Alcohol. Coffee. Cola and energy drinks. Black or green tea. [place]. Fats and oils Butter. Lard. Ghee. Seasoning and other foods Pepper. Hot sauce. Any seasonings or condiments that cause symptoms. Summary Peptic ulcers can cause burning in the stomach as well as bloating, nausea, vomiting, and poor appetite. You may be able to limit symptoms by avoiding foods that make you feel worse. Work with your dietitian or health care provider to identify foods that cause symptoms. This may include caffeinated drinks, alcohol, or pepper. This information is not intended to replace advice given to you by your health care provider. Make sure you discuss any questions you have with your health care provider. Document Released: 04/24/2012 Document Revised: 01/13/2018 Document Reviewed: 03/14/2017 [employer] Patient Education 2020 [employer]. Follow Up Care 06/02/2022 10:34:36 With:[facility] Address: [address] [place], [place] [address] [address]- When:1-2 days Comments:Please call the office to schedule a follow up appointment [facility] 04-21-2023 Note Discharge Instructions Thank you for allowing [facility] to assist you with your healthcare needs. The following is importantdischarge information regarding your hospital visit. Your Care Team [facility] What to do next Follow Up Appointments Follow Up with [facility] When Within 1-2 days Why: Please call the office to schedule a follow up appointment Where: [address] [place] [id number]- The Following Activity and Diet Have Been Ordered for You Discharge Activity - Ordered -- NO activity restrictions, 06/04/22 9:07:00 EDT Discharge Diet - Ordered -- No changes were made to your diet during your hospital stay. Please resume your pre hospitalization diet on discharge., 06/04/22 9:07:00 EDT The Following Equipment Has Been Ordered for You No qualifying data available. The Following Treatments Have Been Ordered for You Discharge Labs No qualifying data available. Discharge Radiology No qualifying data available. Other Therapies No qualifying data available. Post Acute Orders No qualifying data available. Someone Will Contact You Regarding These Home Health Referrals No home referrals have been ordered for you. No one will call you. Allergies NKA Medications Please ask your primary doctor or pharmacist before taking any other medication not listed, including over the counter drugs, herbal medications, vitamins and or supplements as they may interact withyour home medications. What How Much When Instructions Last Dose New pantoprazole (Protonix 40 mg oral enteric coated tablet) 2 tab(s) by mouth Two (2) times a day Refills: 5 Pickup at [facility] New sucralfate (sucralfate 1 g oral tablet) 1 tab(s) by mouth Three (3) times a day Duration: 30 Days Pickup at [facility] Changed warfarin (Coumadin) 3 Milligram by mouth Once a day Pharmacy Information [facility]: [address] [place] [address] [phone] What How Much When Why Comments Stop Taking estradiol (estradiol 1 mg oral tablet) 0.5 tab(s) by mouth Once a day Stop Taking lysine (lysine 500 mg oral tablet) 2 tab(s) by mouth Every day Stop Taking Misc Medication (Collegan peptides) See instructions 600 mg DAILY Stop Taking oxybutynin (oxybutynin 10 mg/ 24 hr oral tablet, extended release) 1 tab(s) by mouth Once a day Stop Taking phentermine (phentermine 37.5 mg oral tablet) 1 tab(s) by mouth Every day Stop Taking potassium chloride (Potassium Chloride (Eqv-K-Tab) 10 mEq oral tablet, extended release) 1 tab(s) by mouth Two (2) times a day Hypokalemia Duration: 10 Days Stop Taking SUMAtriptan (SUMAtriptan 50 mg oral tablet) Stop Taking topiramate (topiramate 25 mg oral tablet) Stop Taking valACYclovir (valACYclovir 500 mg oral tablet) Please take this list to your next doctor s visit. Bring all medications you take, including over the counter medications, herbals and other supplements with you to your doctor s visit. Patients and families are reminded to discard old lists and to update any records with all medication providers or retail pharmacies. Education Materials Peptic Ulcer Eating Plan Peptic ulcers are sores that form on the lining of the stomach, esophagus, or the part of the smallintestine that is attached to the stomach (duodenum). These sores are also called stomach ulcers. When ulcers develop, they can cause a burning feeling in the stomach as well as bloating, nausea, vomiting, and poor appetite. If you have a history of peptic ulcers, it is important to keep track of what foods and drinks cause symptoms. What are tips for following this plan? Eat a healthy, well-balanced diet. This includes: ? Fresh fruits and vegetables. Eat a variety of colors of fruits and vegetables. ? Whole grains. Try to make sure at least half of the grains you eat each day are whole grains. ? Low-fat dairy. ? Lean meat, fish, poultry, eggs, beans, and nuts. ? Healthy fats, such as olive oil, grapeseed oil, or canola oil. Try to eat less than 8 teaspoons of fats and oils each day. Avoid foods that cause irritation or pain. These may be different for different people. Keep a fooddiary to identify foods that cause symptoms. Avoid processed foods that have added salt and sugar. Avoid drinking alcohol. Avoid drinks with caffeine, such as cola, black tea, energy drinks, and coffee. Recommended foods Grains Whole grains. Vegetables All fresh or frozen vegetables. Low-sodium canned vegetables. Fruits All fresh, frozen, or dried fruit. Fruit canned in juice. Meats and other protein foods Lean cuts of meat. Skinless poultry. Fresh or canned fish. Eggs. Tofu. Nuts and nut butter. Dried beans. Low-sodium canned beans. Dairy Low-fat or nonfat (skim) milk. Nonfat or low-fat yogurt. Nonfat or low-fat cheese. Beverages Water. Soy or nut milks. Caffeine-free soft drinks. Herbal tea. Fats and oils [place] oil. Canola oil. Grapeseed oil. [place] oil. Seasoning and other foods Low-fat salad dressing. Ketchup. Low-fat mayonnaise. All spices except pepper. Low-sodium seasoningmixes. Foods to avoid Meats and other protein foods Fatty meats. Fried meats. Any meat that causes symptoms. Dairy Whole milk. Ice cream. Cream. Chocolate milk. Beverages Alcohol. Coffee. Cola and energy drinks. Black or green tea. [place]. Fats and oils Butter. Lard. Ghee. Seasoning and other foods Pepper. Hot sauce. Any seasonings or condiments that cause symptoms. Summary Peptic ulcers can cause burning in the stomach as well as bloating, nausea, vomiting, and poor appetite. You may be able to limit symptoms by avoiding foods that make you feel worse. Work with your dietitian or health care provider to identify foods that cause symptoms. This may include caffeinated drinks, alcohol, or pepper. This information is not intended to replace advice given to you by your health care provider. Make sure you discuss any questions you have with your health care provider. Document Released: 04/24/2012 Document Revised: 01/13/2018 Document Reviewed: 03/14/2017 [employer] Patient Education 2020 [employer] Additional Information VACCINATE! IT SAVES LIVES! Members of the community who have not yet received the COVID-19 vaccine and would like to receive it can visit one of [facility] vaccine clinics. There are many vaccine clinic locations within the [facility]. For locations and available times, please visit [email or web address].gov/. It is important to note that some COVID mobile vaccine clinics are held outdoors and may be canceled in rainy or stormy conditions. To learn more about pediatric vaccinations (ages 5-11), we invite you to visit the [facility] webpage. https://www.[facility].org/pages/5477-Izbib-Fvbbrhacdfb-Njgywbbukz-Chqpy-Sdb stions.htmlTo learn more about the COVID-19 vaccine, we invite you to visit the CDC website for a list of frequently asked questions. https://www.cdc.gov/coronavirus/2019-ncov/vaccines/faq.html [facility] Patient Portal Access Instructions: Stay connected with your healthcare team and access your personal medical information anytime with the [facility] Patient Portal.If you would like a full copy of your medical records, please contact the [facility] Medical Records Department, Tuesday through Tuesday between 8a.m. and 4:30p.m. Please follow the directions below to access the portal: 1.Access the email account you provided upon registration to the [facility].2.Look for an invitation email from [facility].3.Open the email and access the invitation link: Accept Invitation to [facility].Fill in the required avitia to create your account. Sign into [email or web address] with your username and password that you created in the above steps to stay up to date. You can then view a summary of results, a summary of your visits, and the ability to download your summaries to your computer or send the information securely to a physician. Remember that your healthcare information is confidential, so carefully consider who you will allow to register on the [facility] Patient Portal for access to your information. You can also access the [facility] Patient Portal on the [employer] buddy. Simply click on Health Records under [employer] and then click on the Ramakrishna logo. HOW TO SAFELY DISPOSE OF PRESCRIPTION MEDICATIONS Please use one of the following methods to safely dispose of your unused medications. 1.Use a drug disposal kit: the drug disposal pouch allows you to safely discard your old and unuseddrugs. Ask your nurse to give you one when you are discharged.2.Visit a local take-back location: Many local pharmacies and police departments have programs that collect old and unwanted prescriptiondrugs. Call your local pharmacy or go to http://bit.[employer]/4L9Zt2t to find one close to you.3.Make use of household items: Use cat litter or old coffee grounds to dispose medications if other options arenot available. Mix your drugs with these household products, seal them in an airtight container andthrow it into the garbage. Call [facility]: [phone] to be sure your drugs can be disposed of in this way. Some medicines may require a different approach.4.Never flush your medications down the toilet. IF YOU HAVE BEEN PRESCRIBED AN OPIOID FOR PAIN If you have been prescribed an opioid (such as hydrocodone, oxycodone or morphine), it is critical to understand the possible side effects and risks of opioid pain medications. Even when taken as directed, opioids can have several side effects including: Tolerance, meaning you might need to take more of a medication for the same pain relief. Nausea, vomiting and/or constipation. Sleepiness, dizziness, dry mouth, confusion, depression or itching. Physical dependence, meaning you have withdrawal symptoms when a medication is stopped, can develop within a few days. KNOW YOUR RESPONSIBILITIES It is important to know exactly how much and how often to take the opioid pain medications you are prescribed. Never take opioids in higher amounts or more often than prescribed. Do not combine opioids with alcohol or other drugs that cause drowsiness, such as benzodiazepines, also known as benzos, including diazepam and alprazolam, muscle relaxants or sleep aids. Never sell or share prescription opioids. This is illegal. Store opioids in a secure place and out of reach of others (including children, family, friends and visitors). The last page of this document has been signed and retained as a CHART COPY. Signatures Patient Education Materials Peptic Ulcer Eating Plan Medication Leaflets My discharge plan and instructions have been reviewed and explained to me and I,GARDENIA MUJICA understand my current condition and have read and understand these discharge instructions. I have received a written copy of the plan/instructions. If I have questions, I am aware that I should contact my doctor. 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 PUD, I reviewed EGD report which showed a 1.5 cm gastric ulcer. Hx of AVR on coumadin HTN HLP Obesity, BMI 32 Hospital Course 56 yo F w/a PMH of clinical aortic valve replacement on coumadin, obesity, HTN , HLP who was admitted to [facility] for hematemesis x3-4 episodes at home, on admission hemoglobin was 12.3, then dropped to 10.9, she received IV fluid hydration and IV Protonix,and Sucralfate, GI was consulted and EGD was performed which showed 1.5 cm clean-based gastric ulcer without active bleeding, H&H has been stable, Coumadin is on hold, all underlying chronic medical additional stable, we will switch to p.o. Protonix 40 mg twice daily, and resume Coumadin. Patient will be discharged home on Protonix,and Sucralfate. Allergies NKA Consults Consult to Physician - Ordered -- 06/02/22 21:20:00 EDT, DAWOOD, BRANDON GUERIN, Routine, coffee ground emesisDr Yovanyivsid senior front end developer at time of consult. Not known to our group Objective Vitals and Measurements T: 36.7 C (Oral) TMIN: 36.3 C TMAX: 37 C (Oral) HR: 64(Monitored) RR: 16 BP: 132/74 SpO2: 96% Weight Dosing Weight: 85.4 kg (06/02/22) Gen: Appears comfortable, not in distress. HEENT: No pallor, no icterus, neck supple. Lungs: Diminished breath sounds. no wheezing or crackles CVS: S1-S2 noted, regular rate and rhythm, no murmur noted Abd: Nontender, bowel sounds noted, no organomegaly Ext: Pulses symmetric, no edema Skin: No rash, no nodules Neuro: Alert, no focal deficits. Code Status Code Status - Ordered -- 06/02/22 23:11:00 EDT, Full Code, Constant Order Admission Date 06/02/22 Discharge Date 06/04/22 Medications New Prescription pantoprazole (Protonix 40 mg oral enteric coated tablet)2 tab(s) by mouth two (2) times a day. Refills: 5. Changed warfarin (Coumadin)3 Milligram by mouth once a day. Discontinued estradiol (estradiol 1 mg oral tablet)0.5 tab(s) by mouth once a day. lysine (lysine 500 mg oral tablet)2 tab(s) by mouth every day. Misc Medication (Collegan peptides)600 mg DAILY. oxybutynin (oxybutynin 10 mg/24 hr oral tablet, extended release)1 tab(s) by mouth once a day. phentermine (phentermine 37.5 mg oral tablet)1 tab(s) by mouth every day. potassium chloride (Potassium Chloride (Eqv-K-Tab) 10 mEq oral tablet, extended release)1 tab(s) bywauth two (2) times a day for 10 Days. Refills: 0. SUMAtriptan (SUMAtriptan 50 mg oral tablet) topiramate (topiramate 25 mg oral tablet) valACYclovir (valACYclovir 500 mg oral tablet) Sucralfate tid X 30 days, Follow Up [facility] When Within 1-2 days Why: Please call the office to schedule a follow up appointment Where: [address] [place], [place] [address] [address]- Follow Up Appointments No qualifying data available. Follow Up Labs/Studies Discharge Labs No Follow-up Labs Discharge Studies No Follow-up Studies Discharge Diet Discharge Diet - Ordered -- No changes were made to your diet during your hospital stay. Please resume your pre hospitalization diet on discharge., 06/04/22 9:07:00 EDT Discharge Activity Discharge Activity - Ordered -- NO activity restrictions, 06/04/22 9:07:00 EDT Condition on Discharge Stable Readmission Risk/Palliative Score LACE Score: 12 (06/03/22 12:19:00) Palliative Total Score: 0 (06/03/22 14:59:00) Discharge Disposition Home Time Spent 33 minutes Digitally Signed by DAVID PRATT MD on 06/04/2022 10:11 AM Digitally Signed by DAVID PRATT MD on 06/04/2022 10:53 AM [id number] Note Date of Service 06/03/22 Chief Complaint GI bleeding Subjective Patient was seen and examined today, she was admitted for GI bleeding, had EGD today which showed a1.5 cm gastric ulcer without active bleeding. Objective Vitals and Measurements T: 36.9 C (Oral) TMIN: 36.3 C TMAX: 37 C (Oral) HR: 69(Monitored) RR: 14 BP: 129/71 SpO2: 93% Intake and Output 7AM Yesterday to 7AM Today Intake and Output (Last 24 hours) Intake Oral Intake 250.00 Administration Information 800.00 Output Stool Count 0.00 Urine Count 2.00 Total Summary Total Intake 1050.00 Total Output 0.00 Fluid Balance 1050.00 Physical Exam Gen: Appears comfortable, not in distress. HEENT: No pallor, no icterus, neck supple. Lungs: Diminished breath sounds. no wheezing or crackles CVS: S1-S2 noted, regular rate and rhythm, no murmur noted Abd: Nontender, bowel sounds noted, no organomegaly Ext: Pulses symmetric, no edema Skin: No rash, no nodules Neuro: Alert, no focal deficits. Weight Dosing Weight: 85.4 kg (06/02/22) Medications Medications (4) Active Scheduled: (1) pantoprazole 40 mg VIAL 40 mg, IV Push, BIDAC Continuous: (1) Lactated Ringers 1,000 mL 1,000 mL, Intravenous, 75 mL/hr PRN: (2) acetaminophen 325 mg Tablet 650 mg 2 tab(s), Oral, q6hr albuterol - ipratropium 2.5 mg-0.5 mg/3 mL Inhal Nory UD 3 mL, Inhalation, q4hRT Lab Results 06/03 06:27 WBC: 6.6 Hgb: 10.9 L Hct: 31.8 L Platelet: 237 Neutrophil %: 72.4 Protime: 30.5 H PT International Ratio: 2.5 Glucose Level: 96 Sodium Level: 143 Potassium Level: 4.1 BUN: 23.0 H Creatinine Lvl (s): 0.86 06/02 23:18 Protime: 26.4 H PT International Ratio: 2.2 Glucose Level: 96 Sodium Level: 143 Potassium Level: 3.9 BUN: 24.0 H Creatinine Lvl (s): 0.94 EKG No qualifying data available. Assessment/Plan Acute upper GI bleeding due to PUD, on Protonix. will follow H&H. Acute blood loss anemia due to GI bleeding. Hb 10.9 today. PUD, I reviewed EGD report which showed a 1.5 cm gastric ulcer. on protonix iv bid. Hx of AVR on coumadin, now on hold. HTN, bp in contorl. HLP, not on statin at home. Obesity, BMI 32, educated for weight loss. Digitally Signed by DAVID PRATT MD on 06/03/2022 11:45 PM [id number] Anesthesiology Consult note Patient: GARDENIA MUJICA Age: 56 years Sex: Female : 1965 Associated Diagnoses: None Author: KATHLEEN ROBERTSON MD Postoperative Information Patient has been doing well in the PACU. They have been hemodynamically stable, oxygenating well, the pain and nausea are under control. Pt's hydration status appears to be adequate and at baseline. Given the patient's stability, I feel they are appropriately recovered from anesthesia and in a stable condition to be discharged from PACU. Assessment Postanesthesia assessment Vitals: Vital signs from flowsheet : Vital Signs 06/03/2022 15:07 EDT Heart Rate Monitored 96 bpm Respiratory Rate 16 br/min Systolic Blood Pressure Non-Invasive 138 mmHg Diastolic Blood Pressure Non-Invasive 70 mmHg Mean Arterial Pressure (NBP) 85 mmHg 06/03/2022 14:48 EDT Temperature Temporal Artery 36.6 DegC Heart Rate Monitored 98 bpm Respiratory Rate 12 br/min LOW Systolic Blood Pressure Non-Invasive 128 mmHg Diastolic Blood Pressure Non-Invasive 68 mmHg Mean Arterial Pressure (NBP) 82 mmHg 06/03/2022 14:46 EDT Systolic Blood Pressure Non-Invasive 140 mmHg mmHg Diastolic Blood Pressure Non-Invasive 74 mmHg mmHg 06/03/2022 14:45 EDT Temperature (Route Not Specified) 36.3 DegC DegC Heart Rate Monitored 96 bpm bpm Respiratory Rate - Anes 14 br/min br/min 06/03/2022 14:43 EDT Systolic Blood Pressure Non-Invasive 149 mmHg mmHg Diastolic Blood Pressure Non-Invasive 71 mmHg mmHg 06/03/2022 14:40 EDT Temperature (Route Not Specified) 36.3 DegC DegC Heart Rate Monitored 84 bpm bpm Respiratory Rate - Anes 0 br/min br/min Systolic Blood Pressure Non-Invasive 140 mmHg mmHg Diastolic Blood Pressure Non-Invasive 72 mmHg mmHg 06/03/2022 14:37 EDT Systolic Blood Pressure Non-Invasive 141 mmHg mmHg Diastolic Blood Pressure Non-Invasive 68 mmHg mmHg 06/03/2022 14:35 EDT Temperature (Route Not Specified) 36.3 DegC DegC Heart Rate Monitored 85 bpm bpm Respiratory Rate - Anes 0 br/min br/min 06/03/2022 14:34 EDT Systolic Blood Pressure Non-Invasive 137 mmHg mmHg Diastolic Blood Pressure Non-Invasive 61 mmHg mmHg 06/03/2022 13:31 EDT Heart Rate Monitored 81 bpm Respiratory Rate 16 br/min 06/03/2022 10:48 EDT Temperature Oral 37 DegC Peripheral Pulse Rate 88 bpm Respiratory Rate 16 br/min Systolic Blood Pressure Non-Invasive 138 mmHg Diastolic Blood Pressure Non-Invasive 75 mmHg Blood Pressure Method Automatic Blood Pressure Location Left arm Blood Pressure Cuff Size Medium 06/03/2022 6:39 EDT Temperature Oral 36.8 DegC Peripheral Pulse Rate 81 bpm Respiratory Rate 16 br/min Systolic Blood Pressure Non-Invasive 132 mmHg Diastolic Blood Pressure Non-Invasive 81 mmHg Blood Pressure Method Automatic Blood Pressure Location Left arm Blood Pressure Cuff Size Medium 06/03/2022 2:15 EDT Temperature Oral 36.8 DegC Heart Rate Monitored 92 bpm Respiratory Rate 18 br/min Systolic Blood Pressure Non-Invasive 132 mmHg Diastolic Blood Pressure Non-Invasive 71 mmHg 06/02/2022 23:02 EDT Temperature Axillary 36.7 DegC Heart Rate Monitored 74 bpm Respiratory Rate 16 br/min Systolic Blood Pressure Non-Invasive 148 mmHg HI Diastolic Blood Pressure Non-Invasive 82 mmHg 06/02/2022 21:45 EDT Temperature Oral 36.9 DegC Heart Rate Monitored 72 bpm Respiratory Rate 18 br/min Systolic Blood Pressure Non-Invasive 129 mmHg Diastolic Blood Pressure Non-Invasive 72 mmHg 06/02/2022 19:00 EDT Peripheral Pulse Rate 72 bpm Respiratory Rate 16 br/min Systolic Blood Pressure Non-Invasive 149 mmHg HI Diastolic Blood Pressure Non-Invasive 69 mmHg 06/02/2022 15:23 EDT Peripheral Pulse Rate 76 bpm Systolic Blood Pressure Non-Invasive 133 mmHg Diastolic Blood Pressure Non-Invasive 68 mmHg 06/02/2022 14:41 EDT Peripheral Pulse Rate 72 bpm 06/02/2022 13:55 EDT Peripheral Pulse Rate 70 bpm Systolic Blood Pressure Non-Invasive 124 mmHg Diastolic Blood Pressure Non-Invasive 71 mmHg 06/02/2022 13:10 EDT Peripheral Pulse Rate 71 bpm Respiratory Rate 18 br/min Systolic Blood Pressure Non-Invasive 139 mmHg Diastolic Blood Pressure Non-Invasive 63 mmHg 06/02/2022 11:48 EDT Peripheral Pulse Rate 73 bpm Systolic Blood Pressure Non-Invasive 136 mmHg Diastolic Blood Pressure Non-Invasive 72 mmHg 06/02/2022 10:10 EDT Peripheral Pulse Rate 69 bpm Respiratory Rate 18 br/min Systolic Blood Pressure Non-Invasive 134 mmHg Diastolic Blood Pressure Non-Invasive 74 mmHg 06/02/2022 8:02 EDT Peripheral Pulse Rate 72 bpm Respiratory Rate 16 br/min Systolic Blood Pressure Non-Invasive 143 mmHg HI Diastolic Blood Pressure Non-Invasive 71 mmHg 06/02/2022 6:33 EDT Peripheral Pulse Rate 80 bpm Respiratory Rate 16 br/min Systolic Blood Pressure Non-Invasive 142 mmHg HI Diastolic Blood Pressure Non-Invasive 68 mmHg Mean Arterial Pressure (NBP) 91 mmHg Reason For Taking VItal Signs Intervention follow-up 06/02/2022 5:28 EDT Peripheral Pulse Rate 84 bpm Respiratory Rate 16 br/min Systolic Blood Pressure Non-Invasive 117 mmHg Diastolic Blood Pressure Non-Invasive 80 mmHg Mean Arterial Pressure (NBP) 92 mmHg Reason For Taking VItal Signs Intervention follow-up 06/02/2022 4:47 EDT Peripheral Pulse Rate 106 bpm HI Respiratory Rate 20 br/min Systolic Blood Pressure Non-Invasive 137 mmHg Diastolic Blood Pressure Non-Invasive 79 mmHg Blood Pressure Location Right arm . Digitally Signed by KATHLEEN ROBERTSON MD on 06/03/2022 03:09 PM [facility] [id number] Anesthesiology Consult note Patient: GARDENIA MUJICA Age: 56 years Sex: Female : 1965 Associated Diagnoses: None Author: JEAN-PAUL VARMA MD Preoperative Information NPO >8 hours Anesthesia history Patient's history: negative. History of Present Illness 56yoF with PMH aortic valve replacement on coumadin, obesity, HTN , HLP presented to [facility] for hematemesis since 7PM on 06/01 presenting for EGD. No episodes today. Denies CP, SOB, fever, recent cough, cold or congestion; >4 METS, no GERD sx. Health Status Allergies: Allergic Reactions (Selected) NKA, Allergies (1) ActiveReaction NKANone Documented Current medications: (Selected) Inpatient Medications Ordered DuoNeb: 3 mL, Inhalation, q4hRT, PRN: Shortness of breath or wheezing LR 1,000 mL: 75 mL/hr, Intravenous Protonix IV Push: 40 mg, IV Push, BIDAC Tylenol: 650 mg, 2 tab(s), Oral, q6hr, PRN: Pain, scale 1-10 Prescriptions Prescribed Potassium Chloride (Eqv-K-Tab) 10 mEq oral tablet, extended release: 10 mEq, 1 tab(s), Oral, BID, for 10 day(s), 20 tab(s), 0 Refill(s) warfarin 3 mg oral tablet: 3 mg, 1 tab(s), Oral, qDay, 90 tab(s), 3 Refill(s) Documented Medications Documented Collegan peptides: See Instructions, 600 mg DAILY, 0 Refill(s) Coumadin: 3 mg, Oral, qDay SUMAtriptan 50 mg oral tablet: 0 Refill(s) estradiol 1 mg oral tablet: 0.5 mg, 0.5 tab(s), Oral, qDay, 0 Refill(s) lysine 500 mg oral tablet: 1,000 mg, 2 tab(s), Oral, Daily, 0 Refill(s) oxybutynin 10 mg/24 hr oral tablet, extended release: 10 mg, 1 tab(s), Oral, qDay phentermine 37.5 mg oral tablet: 37.5 mg, 1 tab(s), Oral, Daily topiramate 25 mg oral tablet: 0 Refill(s) valACYclovir 500 mg oral tablet: 0 Refill(s), Medications (4) Active Scheduled: (1) pantoprazole 40 mg VIAL 40 mg, IV Push, BIDAC Continuous: (1) Lactated Ringers 1,000 mL 1,000 mL, Intravenous, 75 mL/hr PRN: (2) acetaminophen 325 mg Tablet 650 mg 2 tab(s), Oral, q6hr albuterol - ipratropium 2.5 mg-0.5 mg/3 mL Inhal Nory UD 3 mL, Inhalation, q4hRT Problem list: Medical BMI 32.0-32.9,adult / SNOMED CT 503732642 / Confirmed Chest pain / SNOMED CT 05212482 / Confirmed Hyperlipidemia / SNOMED CT [id number] / Confirmed Hypertension / SNOMED CT 78929451 / Confirmed 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 Comments: 07/02/2021 12:10 EDT - Anna Carty LPN-normal CXR - Chest X-ray ([id number]) on 09/10/2020 at 55 Years. Comments: 07/02/2021 12:15 EDT - Anna Carty LPN-mild vascualr congestion Femur ([id number]). Hysterectomy (342679601). Heart (804480595). Comments: 11/10/2013 12:01 EDT - KYE VALLEJO artificial heart valve, aorta Cholecystectomy (03296035). Sternotomy (35791907). Replacement of aortic valve (01859004). Social History Social & Psychosocial Habits Alcohol 05/19/2021 Use: Never 2Risk Assessment: No Risk Substance Abuse 05/19/2021 Use: Never 2Risk Assessment: No Risk Tobacco 02/02/2020 Tobacco Use: Never (less than 100 in l 2Risk Assessment: No Risk Home/Environment 05/19/2021 Primary Digital Strategy Director: self Nutrition/Health 05/19/2021 Type of diet: Regular Appetite Good Eating Difficulties None Caffeine intake amount: One pop daily and random coffee . Physical Examination Vital Signs(last 24 hrs) Last Charted Temp Oral37 DegC (JUN 03 10:48) Heart Rate Tovdgdssh49 bpm (JUN 03 14:48) Resp Rate L 12br/min (JUN 03 14:48) JXP056 mmHg (JUN 03 14:48) DBP68 mmHg (JUN 03 14:48) BMI32.3 (JUN 02 20:05) Measurements from flowsheet : Measurements 06/02/2022 20:05 EDT Height 162.6 cm Height in inches 64 inch(es) Admission Weight 85.4 kg Weight Lbs 187.9 lb [place] Body Weight 54.74 kg Type of Scale Used Bed scale BSA Admission 1.91 Body Mass Index 32.3 kg/m2 General: Alert and oriented, No acute distress, NGT in place. Airway: Normal mouth, No damage to dentition, Normal neck range of motion. Mallampati classification: II (soft palate, fauces, uvula visible). Dentition Evaluation: Intact. Neck: Supple. Respiratory: Lungs are clear to auscultation, Respirations are non-labored. Cardiovascular: Normal rate, Regular rhythm. Heart Sounds: Normal. Neurologic: Alert, Oriented. Review / Management Results review: Labs (Last four charted values) WBC 6.6(JUN 03) Hgb L 10.9(JUN 03) Hct L 31.8(JUN 03) Plt 237(JUN 03) Na 143(JUN 03)143(JUN 02) K 4.1(JUN 03)3.9(JUN 02) CO2 32(JUN 03)H 34(JUN 02) Cl 107(JUN 03)108(JUN 02) Cr 0.86(JUN 03)0.94(JUN 02) BUN H 23.0(JUN 03)H 24.0(JUN 02) Glucose 96(JUN 03)96(JUN 02) Ca 9.2(JUN 03)9.2(JUN 02) PT H 30.5(JUN 03)H 26.4(JUN 02) INR 2.5(JUN 03)2.2(JUN 02) . Documentation reviewed: Current records. Assessment and Plan [place] [employer] Anesthesiologists (ASA) physical status classification: Class III. Anesthetic Preoperative Plan Premedication: intravenous. Anesthetic technique: MAC. Induction: intravenously. Maintenance airway: NC. Postoperative pain management: Per surgeon. Risks discussed: nausea, vomiting, headache, sore throat, dental injury, hypotension, allergic reaction, serious complications. Informed consent: signed by patient. Digitally Signed by JEAN-PAUL VARMA MD on 06/03/2022 02:57 PM [id number] Procedure note Date of Service Date of Service 06-03-22 Procedure(s): EGD, diagnostic Anesthesia: Propofol per anesthesiologist Pre-Op/Pre-Procedure Diagnosis: coffee ground emesis Brief History: The benefits, alternatives, and risks of the procedure(s) including (but not exclusive to ) bleeding, perforation, allergic reaction(s) due to sedatives, need for hospitalization, need for transfusions, need for surgery, and likelihood of missing a polyp or neoplastic lesion, were explained to the p atient/guardian/responsible accompanying adult who is agreeable. Procedure Details: The patient was placed in the left lateral decubitus position. A bite block was placed and medications administered as above. The Olympus gastroscope was used to intubate the oropharynx and esophagus with ease. We proceeded down to the second part of the duodenum. We then withdrew into the stomach and visualized the antrum and body. Retroflexion was performed. The scope was then withdrawn and the patient tolerated the procedure well. Findings: 1. Esophagus: normal mucosa. GEJ 40cm. 2. Stomach: evidence of previous gastric sleeve. Gastric ulcer noted. It appears to be superficial but has a clean base. It is approximately 1.5cm in diameter. No active bleeding at this time. 3. Duodenum: normal mucosa Specimens: none EBL: None Complications: None Recommendations: - return pt to hospital younger for further care - PPI BID x 1month then daily - start carafate 1gm TID x 1month - start clears and advance as tolerated Digitally Signed by BRANDON SEAY MD on 06/03/2022 10:00 PM [facility] [id number] Gastroenterology Consult note Date of Service 06-03-22 Reason for Consultation coffee ground emesis Referring Physician Pratt History of Present Illness 56-year-old female with past medical history of hypertension, hyperlipidemia, PTSD, aortic valve replacement on Coumadin with goal INR 2.5-3.5 who presented to ER complaining of hematemesis. Patient reports that she was in her usual state of health when the day prior to presenting to the ER she began having epigastric pain eventually nausea and vomiting. In the emesis she noticed some black material. Denies any exacerbating or relieving factors. In the ER labs showed: WBC 12.4, hemoglobin 12.3,MCV 82.5, platelet 293, INR 2.4, sodium 143, potassium 5.1, BUN 21, creatinine 0.92, alk phos 190, AST 53, lipase level normal. CT abdomen/pelvis showed: No acute abdominal pelvic process. Patient was admitted for further evaluation and management. Review of Systems 14 systems were discussed and reviewed and were negative except as mentioned in HPI. Physical Exam Vitals and Measurements T: 36.8 C (Oral) TMIN: 36.7 C (Axillary) TMAX: 36.9 C (Oral) HR: 81 RR: 16 BP: 132/81 BP: 128/74(Sitting) BP: 130/77(Standing) BP: 129/72(Supine) SpO2: 92% HT: 162.6 cm WT: 85.4 kg BMI: 32.3 Weight Dosing Weight: 85.4 kg (06/02/22) General Appearance: Patient was not in distress on my evaluation Head: Atraumatic and normocephalic EENT: EOMI, PERRLA, no oropharyngeal erythema, no tonsillar exudates, no conjunctival injection. sclera anicteric. Neck: No thyromegaly, no cervical lymphadenopathy, trachea midline Cardiac: S1 and S2 normal. RRR. No murmurs, rubs, or gallops. No JVD. No hepatojugular reflex. Lungs: Good air entry bilaterally. No increased work for breathing. No wheezes, rhonchi, or rales. Abdomen: Soft, not distention, there was no tenderness or reboud tenderness and bowel sound was normal Musculoskeletal: Full range of motion upper and lower extremities. No CVA tenderness. Extremities: moist, warm, normal motility Neurological: No gross motor deficits Skin: moist, warm, there was no rash. Psychiatric: Alert and oriented, well groomed, euthymic. cooperative Lab Results 06/03 06:27 WBC: 6.6 Hgb: 10.9 L Hct: 31.8 L Platelet: 237 Neutrophil %: 72.4 Protime: 30.5 H PT International Ratio: 2.5 Glucose Level: 96 Sodium Level: 143 Potassium Level: 4.1 BUN: 23.0 H Creatinine Lvl (s): 0.86 06/02 23:18 Protime: 26.4 H PT International Ratio: 2.2 Glucose Level: 96 Sodium Level: 143 Potassium Level: 3.9 BUN: 24.0 H Creatinine Lvl (s): 0.94 Imaging Results and Diagnostics (06/02/2022 06:[address] Abd/Pelvis w/ IV Contrast Only) FINDINGS: Lower Chest: Included lung bases are clear. Heart size is normal. Organs: Enteric tube terminating within the stomach. Spleen, pancreas, and adrenals are unremarkable. Right renal vascular calcification. No hydronephrosis or hydroureter. Bladder is unremarkable. GI/Bowel: Small hiatal hernia with air-fluid level. Previous gastric bypass. No bowel obstruction. Normal appendix. No free air or fluid. Pelvis: Uterus is surgically absent. Tubal ligation clips in the pelvis. No adnexal mass. Peritoneum/Retroperitoneum: Aorta is normal in course and caliber. Portal and hepatic veins are patent. No lymphadenopathy. Bones/Soft Tissues: Partially visualized left hip hardware. Mild sacroiliac degenerative changes. Bilateral sacralization of L5. Remote L5-S1 pars defects and grade 1 anterolisthesis of L5 on S1. IMPRESSION: No acute abdominopelvic process. Chronic and incidental findings as above. [1] Assessment/Plan 1. Hypertension 2. Hyperlipidemia 3. Aortic valve replacement on Coumadin with goal INR 2.5-3.5 4. History of endoscopic sleeve gastroplasty about 25 to 30 years ago 5. Coffee-ground emesis/melena: Pt reports in past has had coffee ground emesis and usually after afew day it resolves. This episode was just more intense then previous. Hgb decrease overnight. Patient has NG tube in place that just has bilious material returning. -Monitor hemoglobin and transfuse as necessary -IV PPI -NPO -EGD today (INR 2.5 today) Problem List/Past Medical History Ongoing BMI 32.0-32.9,adult Chest pain Dissociative amnesia Hyperlipidemia Hypertension PTSD - Post-traumatic stress disorder Weight gain Historical No qualifying data Procedure/Surgical History Stress testing using pharmacologic-induced stress: 10/10/20 CXR - Chest X-ray: 09/10/20 Replacement of aortic valve Sternotomy Hysterectomy Heart Cholecystectomy Medications Inpatient DuoNeb, 3 mL, Inhalation, q4hRT, PRN LR 1,000 mL, 1000 mL, Intravenous Protonix IV Push, 40 mg, IV Push, BIDAC Home Collegan peptides, See Instructions, Not taking Coumadin, 3 mg, Oral, qDay estradiol 1 mg oral tablet, 0.5 mg= 0.5 tab(s), Oral, qDay, Not taking lysine 500 mg oral tablet, 1000 mg= 2 tab(s), Oral, Daily, Not taking oxybutynin 10 mg/24 hr oral tablet, extended release, 10 mg= 1 tab(s), Oral, qDay, Not taking phentermine 37.5 mg oral tablet, 37.5 mg= 1 tab(s), Oral, Daily, Not taking Potassium Chloride (Eqv-K-Tab) 10 mEq oral tablet, extended release, 10 mEq= 1 tab(s), Oral, BID, Not taking SUMAtriptan 50 mg oral tablet, Not taking topiramate 25 mg oral tablet, Not taking valACYclovir 500 mg oral tablet, Not taking warfarin 3 mg oral tablet, 3 mg= 1 tab(s), Oral, qDay, 3 refills Allergies NKA Social History Smoking Status - 10/27/2015 Never smoker Alcohol - No Risk, 09/06/2021 Use: Never., 05/19/2021 Home/Environment Primary Digital Strategy Director: self., 05/19/2021 Nutrition/Health Type of diet: Regular. Appetite Good. Eating Difficulties None. Caffeine intake amount: One pop daily and random coffee., 05/19/2021 Substance Abuse - No Risk, 09/06/2021 Use: Never., 05/19/2021 Tobacco - No Risk, 09/06/2021 Nicotine Use: Never (less than 100 in lifetime)., 02/02/2020 Family History HTN - Hypertension: Mother. Immunizations pneumococcal 13-valent conjugate vaccine: 0 unknown unit (09/23/15) SARS-CoV-2 (COVID-19) mRNA-1273 vaccine: 100 unknown unit (03/18/20) SARS-CoV-2 (COVID-19) mRNA-1273 vaccine: 100 unknown unit (02/20/20) tetanus/diphth/pertuss (Tdap) adult/adol: 0.5 unknown unit (03/05/17) tetanus/diphth/pertuss (Tdap) adult/adol: 0 unknown unit (09/23/15) tetanus/diphth/pertuss (Tdap) adult/adol: 0 unknown unit (10/25/12) zoster vaccine live: 0 unknown unit (09/23/15) zoster vaccine, inactivated: 0.5 unknown unit (10/03/17) zoster vaccine, inactivated: 0.5 unknown unit (04/29/17) [1] CT Abd/Pelvis w/ IV Contrast Only; MARTY MOYA MD 06/02/2022 06:04 EDT Digitally Signed by BRANDON SEAY MD on 06/03/2022 12:36 PM [id number] History and physical note Date of Service 06/02/2022 Chief Complaint Coffee ground emesis History of Present Illness 56 yo F w/a PMH consistent with aortic valve replacement on coumadin, obesity, HTN , HLP presented to [facility] for hematemesis since 7PM on 06/01. Describes 3-4 episodes of coffee ground emesis. Denies anyNSAID use. On coumadin for mechanical valve replacement and has a remote history of a gastroplasty.Some intermittent sharp epigastric pain not associated with eating. Denies fevers, chills, nausea, melena, hematochezia. In AOH, CTAP unremarkable. Hgb WNL at 12.3. BP sys maintained 120s-130s. UA negative. INR 2.4 in setting of AVR (2.5-3.5 goal). BMP unremarkable. Decision made for transfer to for GI evaluation. On exam, patient resting comfortable. VSS. Denies any acute issues or acute complaints. No more episodes of hematemesis. Denies any new lightheadedness or dizziness. Review of Systems Complete detailed review of systems obtained and all pertinent positives and negatives are noted inthe history of present illness. Physical Exam Vitals and Measurements T: 36.9 C (Oral) HR: 72(Monitored) RR: 18 BP: 129/72 BP: 128/74(Sitting) BP: 130/77(Standing) BP: 129/72(Supine) SpO2: 93% HT: 162.6 cm WT: 85.4 kg BMI: 32.3 Weight Dosing Weight: 85.4 kg (06/02/22) Physical Examination General: No apparent distress. Alert and appropriate. HEENT: NCAT EOMI Neck: Supple. No appreciable elevation in JVP. Cardiovascular: S1 S2 normal. No extra-audible heart tones. Respiratory: Bilaterally clear breath sounds with no crepitation or wheeze. Abdominal: Soft, nontender and nonrigid. No guarding. Bowel sounds present. Extremities: No edema. Adequate peripheral circulation. Neurological: Grossly intact without focal deficit. Cerebellar function preserved. Skin: Intact. Dry. No rash. Lab Results No 36 Hour Lab Data Imaging Results and Diagnostics (06/02/2022 06:[address] Abd/Pelvis w/ IV Contrast Only) IMPRESSION: No acute abdominopelvic process. [1] Reviewed Assessment/Plan Coffee ground emesis Hx of AVR on coumadin HTN HLP Obesity Patient hemodynamically stable with normal Hgb. Denies any further episodes of coffee ground emesissince yesterday. Maintain NPO status and MIV LR 100cc/hr until GI can evaluate. GI service consulted. Given subtherapeutic INR in setting of mechanical valve, daily 3 mg coumadin was given. Monitor daily CBC and BMP and replete electrolytes PRN. IV Protonix BID given. Problem List/Past Medical History Ongoing BMI 32.0-32.9,adult Chest pain Dissociative amnesia Hyperlipidemia Hypertension PTSD - Post-traumatic stress disorder Weight gain Historical No qualifying data Procedure/Surgical History Stress testing using pharmacologic-induced stress: 10/10/20 CXR - Chest X-ray: 09/10/20 Replacement of aortic valve Sternotomy Hysterectomy Heart Cholecystectomy Medications Home Medications (11) Active Collegan peptides See Instructions Coumadin 3 mg, Oral, qDay estradiol 1 mg oral tablet 0.5 mg = 0.5 tab(s), Oral, qDay lysine 500 mg oral tablet 1,000 mg = 2 tab(s), Oral, Daily oxybutynin 10 mg/24 hr oral tablet, extended release 10 mg = 1 tab(s), Oral, qDay phentermine 37.5 mg oral tablet 37.5 mg = 1 tab(s), Oral, Daily Potassium Chloride (Eqv-K-Tab) 10 mEq oral tablet, extended release 10 mEq = 1 tab(s), Oral, BID SUMAtriptan 50 mg oral tablet topiramate 25 mg oral tablet valACYclovir 500 mg oral tablet warfarin 3 mg oral tablet 3 mg = 1 tab(s), Oral, qDay Allergies NKA Social History Smoking Status - 10/27/2015 Never smoker Alcohol - No Risk, 09/06/2021 Use: Never., 05/19/2021 Home/Environment Primary Digital Strategy Director: self., 05/19/2021 Nutrition/Health Type of diet: Regular. Appetite Good. Eating Difficulties None. Caffeine intake amount: One pop daily and random coffee., 05/19/2021 Substance Abuse - No Risk, 09/06/2021 Use: Never., 05/19/2021 Tobacco - No Risk, 09/06/2021 Nicotine Use: Never (less than 100 in lifetime)., 02/02/2020 Family History HTN - Hypertension: Mother. Immunizations pneumococcal 13-valent conjugate vaccine: 0 unknown unit (09/23/15) SARS-CoV-2 (COVID-19) mRNA-1273 vaccine: 100 unknown unit (03/18/20) SARS-CoV-2 (COVID-19) mRNA-1273 vaccine: 100 unknown unit (02/20/20) tetanus/diphth/pertuss (Tdap) adult/adol: 0.5 unknown unit (03/05/17) tetanus/diphth/pertuss (Tdap) adult/adol: 0 unknown unit (09/23/15) tetanus/diphth/pertuss (Tdap) adult/adol: 0 unknown unit (10/25/12) zoster vaccine live: 0 unknown unit (09/23/15) zoster vaccine, inactivated: 0.5 unknown unit (10/03/17) zoster vaccine, inactivated: 0.5 unknown unit (04/29/17) Code Status No qualifying data available. [1] CT Abd/Pelvis w/ IV Contrast Only; MARTY MOYA MD 06/02/2022 06:04 EDT Digitally Signed by ANDREW TABOR DO on 06/02/2022 11:20 PM [id number] Evaluation + Plan noteExtracted from: Title:History and Physical Author:ANDREW TABOR Date:06/02/22 Coffee ground emesis Hx of AVR on coumadin HTN HLP Obesity Patient hemodynamically stable with normal Hgb. Denies any further episodes of coffee ground emesis since yesterday. Maintain NPO status and MIV LR 100cc/hr until GI can evaluate. GI service consulted. Given subtherapeutic INR in setting of mechanical valve, daily 3 mg coumadin was given. Monitor daily CBC and BMP and replete electrolytes PRN. IV Protonix BID given. Future Scheduled Tests Laboratory* Lipid Profile [facility] Hospital Discharge instructions Patient Education 02/11/2022 14:42:33 Back Sprain/Strain Back Sprain or Strain Injury to the muscles (strain) or ligaments (sprain) around the spine can be troubling. Injury may occur after a sudden forceful twisting or bending force such as in a car accident, after a simple awkward movement, or after lifting something heavy with poor body positioning. In any case, muscle spasm is often present and adds to the pain. Thankfully, most people feel better in 1 to 2 weeks, and most of the rest in 1 to 2 months. Most people can remain active. Unless you had a forceful or traumatic physical injury such as a car accident or fall, X-rays may not be ordered for the first evaluation of a back sprain or strain. If pain continues and does not respond to medical treatment, your healthcare provider may then order X-rays and other tests. Home care The following guidelines will help you care for your injury at home: When in bed, try to find a comfortable position. A firm mattress is best. Try lying flat on your back with pillows under your knees. You can also try lying on your side with your knees bent up towardyour chest and a pillow between your knees. Don't sit for long periods. Try not to take long car rides or take other trips that have you sitting for a long time. This puts more stress on the lower back than standing or walking. During the first 24 to 72 hours after an injury or flare-up, apply an ice pack to the painful area for 20 minutes. Then remove it for 20 minutes. Do this for 60 to 90 minutes, or several times a day.This will reduce swelling and pain. Be sure to wrap the ice pack in a thin towel or plastic to protect your skin. You can start with ice, then switch to heat. Heat from a hot shower, hot bath, or heating pad reduces pain and works well for muscle spasms. Put heat on the painful area for 20 minutes, then remove for 20 minutes. Do this for 60 to 90 minutes, or several times a day. Do not use a heating pad while sleeping. It can burn the skin. You can alternate the ice and heat. Talk with your healthcare provider to find out the best treatment or therapy for your back pain. Therapeutic massage will help relax the back muscles without stretching them. Be aware of safe lifting methods. Do not lift anything over 15 pounds until all of the pain is gone. Medicines Talk to your healthcare provider before using medicines, especially if you have other health problems or are taking other medicines. You may use acetaminophen or ibuprofen to control pain, unless another pain medicine was prescribed. If you have chronic conditions like diabetes, liver or kidney disease, stomach ulcers, or gastrointestinal bleeding, or are taking blood-thinner medicines, talk with your doctor before taking any medicines. Be careful if you are given prescription medicines, narcotics, or medicine for muscle spasm. They can cause drowsiness, and affect your coordination, reflexes, and judgment. Do not drive or operate heavy machinery when taking these types of medicines. Only take pain medicine as prescribed by your healthcare provider. Follow-up care Follow up with your healthcare provider, or as advised. You may need physical therapy or more testsif your symptoms get worse. If you had X-rays your healthcare provider may be checking for any broken bones, breaks, or fractures. Bruises and sprains can sometimes hurt as much as a fracture. These injuries can take time to heal completely. If your symptoms don t improve or they get worse, talk with your healthcare provider.You may need a repeat X-ray or other tests. Call 911 Call 911 if any of the following occur: Trouble breathing Confused Very drowsy or trouble awakening Fainting or loss of consciousness Rapid or very slow heart rate Loss of bowel or bladder control When to seek medical advice Call your healthcare provider right away if any of the following occur: Pain gets worse or spreads to your arms or legs Weakness or numbness in one or both arms or legs Numbness in the groin or genital area [id number] [employer]. [address] [place] [address]. All rights reserved. This information is not intended as a substitute for professional medical care. Always follow yourhealthcare professional's instructions. Follow Up Care 02/11/2022 11:51:22 With:[facility] Address: [address] [place], [place] [address]Sol [facility] [place] [address]- When:2-4 days Comments:Return to ED if symptoms worsen [facility] 12-29-2022 Emergency department Discharge summary Discharge Instructions Thank you for allowing [facility] to assist you with your healthcare needs. The following is importantdischarge information regarding your hospital visit. Diagnosis from Today's Visit Lumbar strain Flank pain What to Do Next Instructions from Your Care Team No qualifying data available. Post Acute Orders No qualifying data available. You Need to Schedule the Following Appointments [facility] with [facility] When Within 2-4 days Why: Return to ED if symptoms worsen Where: [address] [place] [address] [place] [address]- Allergies NKA Medications Please ask your primary doctor or pharmacist before taking any other medication not listed, including over the counter drugs, herbal medications, vitamins and or supplements as they may interact withyour home medications. What How Much When Why Instructions Last Dose New cyclobenzaprine (cyclobenzaprine 10 mg oral tablet) 1 tab(s) by mouth Three (3) times a day as needed for Pain Lumbar strain Duration: 5 Days Printed Prescription Unchanged estradiol (estradiol 1 mg oral tablet) 0.5 tab(s) by mouth Once a day Unchanged lysine (lysine 500 mg oral tablet) 2 tab(s) by mouth Every day Unchanged Misc Medication (Collegan peptides) See instructions 600 mg DAILY Unchanged potassium chloride (Potassium Chloride (Eqv-K-Tab) 10 mEq oral tablet, extended release) 1 tab(s) by mouth Two (2) times a day Hypokalemia Duration: 10 Days Unchanged SUMAtriptan (SUMAtriptan 50 mg oral tablet) Unchanged topiramate (topiramate 25 mg oral tablet) Unchanged valACYclovir (valACYclovir 500 mg oral tablet) Unchanged warfarin (Coumadin) 3 Milligram by mouth Once a day Unchanged warfarin (warfarin 3 mg oral tablet) 1 tab(s) by mouth Once a day Please take this list to your next doctor s visit. Bring all medications you take, including over the counter medications, herbals and other supplements with you to your doctor s visit. Patients and families are reminded to discard old lists and to update any records with all medication providers or retail pharmacies. Education Materials Back Sprain or Strain Injury to the muscles (strain) or ligaments (sprain) around the spine can be troubling. Injury may occur after a sudden forceful twisting or bending force such as in a car accident, after a simple awkward movement, or after lifting something heavy with poor body positioning. In any case, muscle spasm is often present and adds to the pain. Thankfully, most people feel better in 1 to 2 weeks, and most of the rest in 1 to 2 months. Most people can remain active. Unless you had a forceful or traumatic physical injury such as a car accident or fall, X-rays may not be ordered for the first evaluation of a back sprain or strain. If pain continues and does not respond to medical treatment, your healthcare provider may then order X-rays and other tests. Home care The following guidelines will help you care for your injury at home: When in bed, try to find a comfortable position. A firm mattress is best. Try lying flat on your back with pillows under your knees. You can also try lying on your side with your knees bent up towardyour chest and a pillow between your knees. Don't sit for long periods. Try not to take long car rides or take other trips that have you sitting for a long time. This puts more stress on the lower back than standing or walking. During the first 24 to 72 hours after an injury or flare-up, apply an ice pack to the painful area for 20 minutes. Then remove it for 20 minutes. Do this for 60 to 90 minutes, or several times a day.This will reduce swelling and pain. Be sure to wrap the ice pack in a thin towel or plastic to protect your skin. You can start with ice, then switch to heat. Heat from a hot shower, hot bath, or heating pad reduces pain and works well for muscle spasms. Put heat on the painful area for 20 minutes, then remove for 20 minutes. Do this for 60 to 90 minutes, or several times a day. Do not use a heating pad while sleeping. It can burn the skin. You can alternate the ice and heat. Talk with your healthcare provider to find out the best treatment or therapy for your back pain. Therapeutic massage will help relax the back muscles without stretching them. Be aware of safe lifting methods. Do not lift anything over 15 pounds until all of the pain is gone. Medicines Talk to your healthcare provider before using medicines, especially if you have other health problems or are taking other medicines. You may use acetaminophen or ibuprofen to control pain, unless another pain medicine was prescribed. If you have chronic conditions like diabetes, liver or kidney disease, stomach ulcers, or gastrointestinal bleeding, or are taking blood-thinner medicines, talk with your doctor before taking any medicines. Be careful if you are given prescription medicines, narcotics, or medicine for muscle spasm. They can cause drowsiness, and affect your coordination, reflexes, and judgment. Do not drive or operate heavy machinery when taking these types of medicines. Only take pain medicine as prescribed by your healthcare provider. Follow-up care Follow up with your healthcare provider, or as advised. You may need physical therapy or more testsif your symptoms get worse. If you had X-rays your healthcare provider may be checking for any broken bones, breaks, or fractures. Bruises and sprains can sometimes hurt as much as a fracture. These injuries can take time to heal completely. If your symptoms don t improve or they get worse, talk with your healthcare provider.You may need a repeat X-ray or other tests. Call 911 Call 911 if any of the following occur: Trouble breathing Confused Very drowsy or trouble awakening Fainting or loss of consciousness Rapid or very slow heart rate Loss of bowel or bladder control When to seek medical advice Call your healthcare provider right away if any of the following occur: Pain gets worse or spreads to your arms or legs Weakness or numbness in one or both arms or legs Numbness in the groin or genital area [id number] [employer]. [address] [place] [address]. All rights reserved. This information is not intended as a substitute for professional medical care. Always follow yourhealthcare professional's instructions. Additional Information VACCINATE! IT SAVES LIVES! Members of the community who have not yet received the COVID-19 vaccine and would like to receive it can visit one of [facility] vaccine clinics. There are many vaccine clinic locations within the [facility]. For locations and available times, please visit [email or web address]. It is important to note that some COVID mobile vaccine clinics are held outdoors and may be canceled in rainy orstormy conditions. To learn more about pediatric vaccinations (ages 5-11), we invite you to visit the [facility] webpage. [email or web address] learn more about the COVID-19 vaccine, we invite you to visit the [facility] website for a list of frequently asked questions. [email or web address] [facility] Patient Portal Access Instructions: Stay connected with your healthcare team and access your personal medical information anytime with the [facility] Patient Portal. If you would like a full copy of your medical records please contact the [facility] Medical Records Department Tuesday through Tuesday between 8a.m. and 4:30p.m. Please follow the directions below to access the portal: 1.Access the email account you provided upon registration to the [facility].2.Look for an invitation email from [facility].3.Open the email and access the invitation link: Accept Invitation to [facility]4.Fill in the required avitia to create your account. Sign into [email or web address] with your username and password that you created in the above steps to stay up to date. You can then view a summary of results, a summary of your visits, and the ability to download your summaries to your computer or send the information securely to a physician. Remember that your healthcare information is confidential, so carefully consider who you will allow to register on the [facility] Patient Portal for access to your information. You can also access the [facility] Patient Portal on the [employer] buddy. Simply click on Health Records under [employer] and then click on the [facility] logo. HOW TO SAFELY DISPOSE OF PRESCRIPTION MEDICATIONS Please use one of the following methods to safely dispose of your unused medications. 1.Use a drug disposal kit: the drug disposal pouch allows you to safely discard your old and unuseddrugs. Ask your nurse to give you one when you are discharged.2.Visit a local take-back location: Many local pharmacies and police departments have programs that collect old and unwanted prescriptiondrugs. Call your local pharmacy or go to http://bit.[employer]/8S7Oc8v to find one close to you.3.Make use of household items: Use cat litter or old coffee grounds to dispose medications if other options arenot available. Mix your drugs with these household products, seal them in an airtight container andthrow it into the garbage. Call [facility]: [phone] to be sure your drugs can be disposed of in this way. Some medicines may require a different approach.4.Never flush your medications down the toilet. IF YOU HAVE BEEN PRESCRIBED AN OPIOIDS FOR PAIN If you have been prescribed an opioid (such as hydrocodone, oxycodone or morphine), it is critical to understand the possible side effects and risks of opioid pain medications. Even when taken as directed, opioids can have several side effects including: Tolerance, meaning you might need to take more of a medication for the same pain relief. Nausea, vomiting and/or constipation. Sleepiness, dizziness, dry mouth, confusion, depression or itching. Physical dependence, meaning you have withdrawal symptoms when a medication is stopped ? this can develop within a few days. KNOW YOUR RESPONSIBILITIES It is important to know exactly how much and how often to take the opioid pain medications you are prescribed. Never take opioids in higher amounts or more often than prescribed. Do not combine opioids with alcohol or other drugs that cause drowsiness, such as benzodiazepines, also known as benzos,including diazepam and alprazolam, muscle relaxants or sleep aids. Never sell or share prescriptionopioids. This is illegal. Store opioids in a secure place and out of reach of others (including children, family, friends and visitors). The last page(s) of this document has been signed and retained as a CHART COPY Signatures Patient Education Materials Back Sprain/Strain Medication Leaflets My discharge plan and instructions have been reviewed and explained to me and ISIL MAURICA J understand my current condition and have read and understand these discharge instructions. I have received a written copy of the plan/instructions. If I have questions, I am aware that I should contact my doctor. 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 This exam was performed according to our departmental dose optimization program, and includes the following measures where applicable: automated exposure control, adjustment of the mAs and/or kVp according to patient size and/or exam, and an iterative reconstruction algorithm. FINDINGS: There is a small vascular calcification in the right kidney. The kidneys and ureters are otherwise unremarkable. There is bariatric surgery. There is a cholecystectomy. The remaining abdominal organs are unremarkable in appearance. There is a hysterectomy. Bowel is poorly evaluated in the absence of oral contrast. There is no free fluid. There is internal fixation of the left hip. IMPRESSION: No renal or ureteral stones and no signs of recent stone passage. Interpreted by: Jose L Fatima MD Preliminary Report By: Jose L Fatima MD Electronically signed By Jose L Fatima MD Dictated Date: 02/11/2022 12:58:04 PM Prelim Date: 02/11/2022 1:00:16 PM Sign Date: 02/11/2022 1:00:16 PM Ordering Provider: [facility]12-29-2022 Note ORIGINAL HISTORY: Flank pain COMPARISON: 20 May 2014 TECHNIQUE: CT of the abdomen and pelvis with sagittal and coronal reconstructions. This exam was performed according to our departmental dose optimization program, and includes the following measures where applicable: automated exposure control, adjustment of the mAs and/or kVp according to patient size and/or exam, and an iterative reconstruction algorithm. FINDINGS: There is a small vascular calcification in the right kidney. The kidneys and ureters are otherwise unremarkable. There is bariatric surgery. There is a cholecystectomy. The remaining abdominal organs are unremarkable in appearance. There is a hysterectomy. Bowel is poorly evaluated in the absence of oral contrast. There is no free fluid. There is internal fixation of the left hip. IMPRESSION: No renal or ureteral stones and no signs of recent stone passage. Interpreted by: Jose L Fatima MD Preliminary Report By: Jose L Fatima MD Electronically signed By Jose L Fatima MD Dictated Date: 02/11/2022 12:58:04 PM Prelim Date: 02/11/2022 1:00:16 PM Sign Date: 02/11/2022 1:00:16 PM [facility] Hospital Discharge instructions Patient Education 12/15/2021 02:42:03 Viral Syndrome (Adult) Viral Syndrome (Adult) A viral illness may cause a number of symptoms such as fever. Other symptoms depend on the part of the body that the virus affects. If it settles in your nose, throat, and lungs, it may cause cough, sore throat, congestion, runny nose, headache, earache and other ear symptoms, or shortness of breath. If it settles in your stomach and intestinal tract, it may cause nausea, vomiting, cramping, and diarrhea. Sometimes it causes generalized symptoms like aching all over, feeling tired, loss of energy, or loss of appetite. A viral illness usually lasts anywhere from several days to several weeks, but sometimes it lasts longer. In some cases, a more serious infection can look like a viral syndrome in the first few days of the illness. You may need another exam and additional tests to know the difference. Watch for thewarning signs listed below for when to seek medical advice. Home care Follow these guidelines for taking care of yourself at home: If symptoms are severe, rest at home for the first 2 to 3 days. Stay away from cigarette smoke - both your smoke and the smoke from others. You may use uoxe-tla-tttwrqg acetaminophen or ibuprofen for fever, muscle aching, and headache, unless another medicine was prescribed for this. If you have chronic liver or kidney disease or ever had a stomach ulcer or gastrointestinal bleeding, talk with your healthcare provider before using these medicines. No one who is younger than 18 and ill with a fever should take aspirin. It may cause severe disease or . Your appetite may be poor, so a light diet is fine. Avoid dehydration by drinking 8 to 12, 8-ounce glasses of fluids each day. This may include water; orange juice; lemonade; apple, grape, and cranberry juice; clear fruit drinks; electrolyte replacement and sports drinks; and decaffeinated teas andcoffee. If you have been diagnosed with a kidney disease, ask your healthcare provider how much andwhat types of fluids you should drink to prevent dehydration. If you have kidney disease, drinking too much fluid can cause it build up in the your body and be dangerous to your health. Babi-mme-wsfxqct remedies won't shorten the length of the illness but may be helpful for symptoms such as cough, sore throat, nasal and sinus congestion, or diarrhea. Don't use decongestants if you have high blood pressure. Follow-up care Follow up with your healthcare provider if you do not improve over the next week. Call 911 Call 911 if any of the following occur: Convulsion Feeling weak, dizzy, or like you are going to faint Chest pain, or more than mild shortness of breath When to seek medical advice Call your healthcare provider right away if any of these occur: Cough with lots of colored sputum (mucus) or blood in your sputum Chest pain, shortness of breath, wheezing, or trouble breathing Severe headache; face, neck, or ear pain Severe, constant pain in the lower right side of your belly (abdominal) Continued vomiting (can t keep liquids down) Frequent diarrhea (more than 5 times a day); blood (red or black color) or mucus in diarrhea Feeling weak, dizzy, or like you are going to faint Extreme thirst Fever of 100.4 F (38 C) or higher, or as directed by your healthcare provider [id number] [employer] [place] [address]. All rights reserved. This information is not intended as a substitute for professional medical care. Always follow yourhealthcare professional's instructions. Follow Up Care 12/15/2021 02:27:15 With:JATINDER ALVES Address: [address] [place], [place] [address] [address]- When:2-4 days [facility] 11-01-2022 Note Discharge Instructions Thank you for allowing [facility] to assist you with your healthcare needs. The following is importantdischarge information regarding your hospital visit. Diagnosis from Today's Visit Cough Ear pain Headache What to Do Next Instructions from Your Care Team Discharge Return to Work, School, or Sports (Return to Work, School, or Sports) - Ordered -- 12/17/21, May return to: work, 12/15/21 2:56:00 EDT Post Acute Orders No qualifying data available. You Need to Schedule the Following Appointments Follow Up with JATINDER ALVES When Within 2-4 days Where: [address] [place] [address] [place] [address]- Allergies NKA Medications Please ask your primary doctor or pharmacist before taking any other medication not listed, including over the counter drugs, herbal medications, vitamins and or supplements as they may interact withyour home medications. What How Much When Why Instructions Last Dose New benzonatate (Tessalon Perles 100 mg oral capsule) 1 cap by mouth Three (3) times a day Duration: 7 Days Printed Prescription New ondansetron (ondansetron 4 mg oral tablet, disintegrating) 1 tab(s) by mouth Every 8 hours Duration: 3 Days Printed Prescription Unchanged estradiol (estradiol 1 mg oral tablet) 0.5 tab(s) by mouth Once a day Unchanged lysine (lysine 500 mg oral tablet) 2 tab(s) by mouth Every day Unchanged Misc Medication (Collegan peptides) See instructions 600 mg DAILY Unchanged potassium chloride (Potassium Chloride (Eqv-K-Tab) 10 mEq oral tablet, extended release) 1 tab(s) by mouth Two (2) times a day Hypokalemia Duration: 10 Days Unchanged SUMAtriptan (SUMAtriptan 50 mg oral tablet) Unchanged topiramate (topiramate 25 mg oral tablet) Unchanged valACYclovir (valACYclovir 500 mg oral tablet) Unchanged warfarin (Coumadin) 3 Milligram by mouth Once a day Unchanged warfarin (warfarin 3 mg oral tablet) 1 tab(s) by mouth Once a day Please take this list to your next doctor s visit. Bring all medications you take, including over the counter medications, herbals and other supplements with you to your doctor s visit. Patients and families are reminded to discard old lists and to update any records with all medication providers or retail pharmacies. Education Materials Viral Syndrome (Adult) A viral illness may cause a number of symptoms such as fever. Other symptoms depend on the part of the body that the virus affects. If it settles in your nose, throat, and lungs, it may cause cough, sore throat, congestion, runny nose, headache, earache and other ear symptoms, or shortness of breath. If it settles in your stomach and intestinal tract, it may cause nausea, vomiting, cramping, and diarrhea. Sometimes it causes generalized symptoms like aching all over, feeling tired, loss of energy, or loss of appetite. A viral illness usually lasts anywhere from several days to several weeks, but sometimes it lasts longer. In some cases, a more serious infection can look like a viral syndrome in the first few days of the illness. You may need another exam and additional tests to know the difference. Watch for thewarning signs listed below for when to seek medical advice. Home care Follow these guidelines for taking care of yourself at home: If symptoms are severe, rest at home for the first 2 to 3 days. Stay away from cigarette smoke - both your smoke and the smoke from others. You may use gizq-dir-imncmnz acetaminophen or ibuprofen for fever, muscle aching, and headache, unless another medicine was prescribed for this. If you have chronic liver or kidney disease or ever had a stomach ulcer or gastrointestinal bleeding, talk with your healthcare provider before using these medicines. No one who is younger than 18 and ill with a fever should take aspirin. It may cause severe disease or . Your appetite may be poor, so a light diet is fine. Avoid dehydration by drinking 8 to 12, 8-ounce glasses of fluids each day. This may include water; orange juice; lemonade; apple, grape, and cranberry juice; clear fruit drinks; electrolyte replacement and sports drinks; and decaffeinated teas andcoffee. If you have been diagnosed with a kidney disease, ask your healthcare provider how much andwhat types of fluids you should drink to prevent dehydration. If you have kidney disease, drinking too much fluid can cause it build up in the your body and be dangerous to your health. Utid-anv-seshltg remedies won't shorten the length of the illness but may be helpful for symptoms such as cough, sore throat, nasal and sinus congestion, or diarrhea. Don't use decongestants if you have high blood pressure. Follow-up care Follow up with your healthcare provider if you do not improve over the next week. Call 911 Call 911 if any of the following occur: Convulsion Feeling weak, dizzy, or like you are going to faint Chest pain, or more than mild shortness of breath When to seek medical advice Call your healthcare provider right away if any of these occur: Cough with lots of colored sputum (mucus) or blood in your sputum Chest pain, shortness of breath, wheezing, or trouble breathing Severe headache; face, neck, or ear pain Severe, constant pain in the lower right side of your belly (abdominal) Continued vomiting (can t keep liquids down) Frequent diarrhea (more than 5 times a day); blood (red or black color) or mucus in diarrhea Feeling weak, dizzy, or like you are going to faint Extreme thirst Fever of 100.4 F (38 C) or higher, or as directed by your healthcare provider [id number] [employer]. [address] [place] [address]. All rights reserved. This information is not intended as a substitute for professional medical care. Always follow yourhealthcare professional's instructions. Additional Information VACCINATE! IT SAVES LIVES! Members of the community who have not yet received the COVID-19 vaccine and would like to receive it can visit one of [facility] vaccine clinics. There are many vaccine clinic locations within the [facility]. For locations and available times, please visit [email or web address]. It is important to note that some COVID mobile vaccine clinics are held outdoors and may be canceled in rainy orstormy conditions. To learn more about pediatric vaccinations (ages 5-11), we invite you to visit the [facility] webpage. [email or web address]/[email or web address] [email or web address].htmlTo learn more about the COVID-19 vaccine, we invite you to visit the [facility] website for a list of frequently asked questions. [email or web address].pdf [facility] Patient [facility] Access Instructions: Stay connected with your healthcare team and access your personal medical information anytime with the [facility] Patient Portal. If you would like a full copy of your medical records please contact the [facility] Medical Records Department Tuesday through Tuesday between 8a.m. and 4:30p.m. Please follow the directions below to access the portal: 1.Access the email account you provided upon registration to the hospital.2.Look for an invitation email from [facility].3.Open the email and access the invitation link: Accept Invitation to [facility]4.Fill in the required avitia to create your account. Sign into [email or web address] with your username and password that you created in the above steps to stay up to date. You can then view a summary of results, a summary of your visits, and the ability to download your summaries to your computer or send the information securely to a physician. Remember that your healthcare information is confidential, so carefully consider who you will allow to register on the [facility] Patient Portal for access to your information. You can also access the [facility] Patient Portal on the [employer] buddy. Simply click on Health Records under [employer] and then click on the [employer] logo. HOW TO SAFELY DISPOSE OF PRESCRIPTION MEDICATIONS Please use one of the following methods to safely dispose of your unused medications. 1.Use a drug disposal kit: the drug disposal pouch allows you to safely discard your old and unuseddrugs. Ask your nurse to give you one when you are discharged.2.Visit a local take-back location: Many local pharmacies and police departments have programs that collect old and unwanted prescriptiondrugs. Call your local pharmacy or go to http://[employer]/9F2Dr9m to find one close to you.3.Make use of household items: Use cat litter or old coffee grounds to dispose medications if other options arenot available. Mix your drugs with these household products, seal them in an airtight container andthrow it into the garbage. Call [facility]: [phone] to be sure your drugs can be disposed of in this way. Some medicines may require a different approach.4.Never flush your medications down the toilet. IF YOU HAVE BEEN PRESCRIBED AN OPIOIDS FOR PAIN If you have been prescribed an opioid (such as hydrocodone, oxycodone or morphine), it is critical to understand the possible side effects and risks of opioid pain medications. Even when taken as directed, opioids can have several side effects including: Tolerance, meaning you might need to take more of a medication for the same pain relief. Nausea, vomiting and/or constipation. Sleepiness, dizziness, dry mouth, confusion, depression or itching. Physical dependence, meaning you have withdrawal symptoms when a medication is stopped ? this can develop within a few days. KNOW YOUR RESPONSIBILITIES It is important to know exactly how much and how often to take the opioid pain medications you are prescribed. Never take opioids in higher amounts or more often than prescribed. Do not combine opioids with alcohol or other drugs that cause drowsiness, such as benzodiazepines, also known as benzos,including diazepam and alprazolam, muscle relaxants or sleep aids. Never sell or share prescriptionopioids. This is illegal. Store opioids in a secure place and out of reach of others (including children, family, friends and visitors). The last page(s) of this document has been signed and retained as a CHART COPY Signatures Patient Education Materials Viral Syndrome (Adult) Medication Leaflets My discharge plan and instructions have been reviewed and explained to me and I,GARDENIA MUJICA understand my current condition and have read and understand these discharge instructions. I have received a written copy of the plan/instructions. If I have questions, I am aware that I should contact my doctor. 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 Signature: Date/Time: Relationship to Patient: Witness Name/Signature: Date/Time: [facility]10-06-2022 Hospital Discharge instructions Patient Education 11/19/2021 18:50:50 Hypokalemia Hypokalemia Hypokalemia means a low level of potassium in the blood. This most often occurs in people who take water pills (diuretics). It can also occur because of severe vomiting or diarrhea. You may also haveit if you take laxatives for long periods of time. It sometimes happens if you have low magnesium (hypomagnesemia). If you have this, your healthcare provider will treat the low magnesium first. A mild case of hypokalemia usually causes no symptoms. It is only found with blood testing. More severe potassium loss causes overall weakness, muscle or abdominal cramps, rapid or irregular heartbeats (heart palpitations), low blood pressure, and muscle weakness. Home care Take any potassium supplements as prescribed. Eat foods rich in potassium. The highest amount is found in avocado, baked potatoes, spinach, cantaloupe, cod, halibut, salmon, and scallops. White, red, or rhodes beans are also very good sources. A modest amount of potassium is found in orange juice, bananas, carrots, and tomato juice. If you take certain types of diuretics, you will also need to take potassium supplements. If you take a diuretic, discuss potassium supplements with your doctor. Follow-up care Follow up with your healthcare provider for a repeat blood test within the next week, or as advisedby our staff. When to seek medical advice Call your healthcare provider right away if any of the following occur: Increased weakness, fatigue, or muscle cramps Dizziness Call 911 Call 911 if any of the following occur: Irregular heartbeat, extra beats, or very fast heart rate Loss of consciousness [id number] [employer] [place] [address]. All rights reserved. This information is not intended as a substitute for professional medical care. Always follow yourhealthcare professional's instructions. Follow Up Care 11/19/2021 16:38:37 With:[facility] Address: [address] [place] [address] [place] [address]- When: Unknown Comments:Call tomorrow [facility] 10-06-2022 Emergency department Discharge summary Discharge Instructions Thank you for allowing [facility] to assist you with your healthcare needs. The following is importantdischarge information regarding your hospital visit. Diagnosis from Today's Visit Hypokalemia SOB - Shortness of breath What to Do Next Instructions from Your Care Team No qualifying data available. Post Acute Orders No qualifying data available. You Need to Schedule the Following Appointments Follow Up with [facility] When Why: Call tomorrow Where: [address] [place] [address] [place] [address]- Allergies NKA Medications Please ask your primary doctor or pharmacist before taking any other medication not listed, including over the counter drugs, herbal medications, vitamins and or supplements as they may interact withyour home medications. What How Much When Why Instructions Last Dose New potassium chloride (Potassium Chloride (Eqv-K-Tab) 10 mEq oral tablet, extended release) 1 tab(s) by mouth Two (2) times a day Hypokalemia Duration: 10 Days Printed Prescription Unchanged estradiol (estradiol 1 mg oral tablet) 0.5 tab(s) by mouth Once a day Unchanged lysine (lysine 500 mg oral tablet) 2 tab(s) by mouth Every day Unchanged Misc Medication (Collegan peptides) See instructions 600 mg DAILY Unchanged SUMAtriptan (SUMAtriptan 50 mg oral tablet) Unchanged topiramate (topiramate 25 mg oral tablet) Unchanged valACYclovir (valACYclovir 500 mg oral tablet) Unchanged warfarin (Coumadin) 3 Milligram by mouth Once a day Unchanged warfarin (warfarin 3 mg oral tablet) 1 tab(s) by mouth Once a day Please take this list to your next doctor s visit. Bring all medications you take, including over the counter medications, herbals and other supplements with you to your doctor s visit. Patients and families are reminded to discard old lists and to update any records with all medication providers or retail pharmacies. Education Materials Hypokalemia Hypokalemia means a low level of potassium in the blood. This most often occurs in people who take water pills (diuretics). It can also occur because of severe vomiting or diarrhea. You may also haveit if you take laxatives for long periods of time. It sometimes happens if you have low magnesium (hypomagnesemia). If you have this, your healthcare provider will treat the low magnesium first. A mild case of hypokalemia usually causes no symptoms. It is only found with blood testing. More severe potassium loss causes overall weakness, muscle or abdominal cramps, rapid or irregular heartbeats (heart palpitations), low blood pressure, and muscle weakness. Home care Take any potassium supplements as prescribed. Eat foods rich in potassium. The highest amount is found in avocado, baked potatoes, spinach, cantaloupe, cod, halibut, salmon, and scallops. White, red, or rhodes beans are also very good sources. A modest amount of potassium is found in orange juice, bananas, carrots, and tomato juice. If you take certain types of diuretics, you will also need to take potassium supplements. If you take a diuretic, discuss potassium supplements with your doctor. Follow-up care Follow up with your healthcare provider for a repeat blood test within the next week, or as advisedby our staff. When to seek medical advice Call your healthcare provider right away if any of the following occur: Increased weakness, fatigue, or muscle cramps Dizziness Call 911 Call 911 if any of the following occur: Irregular heartbeat, extra beats, or very fast heart rate Loss of consciousness [phone] [employer]. [address] [place] [address]. All rights reserved. This information is not intended as a substitute for professional medical care. Always follow yourhealthcare professional's instructions. Additional Information VACCINATE! IT SAVES LIVES! Members of the community who have not yet received the COVID-19 vaccine and would like to receive it can visit one of [facility] vaccine clinics. There are many vaccine clinic locations within the [facility]. For locations and available times, please visit [email or web address]. It is important to note that some COVID mobile vaccine clinics are held outdoors and may be canceled in rainy orstormy conditions. To learn more about pediatric vaccinations (ages 5-11), we invite you to visit the [facility] webpage. https://[email or web address]/pages/[email or web address]-Obyrrkpukeu-Ndfewogpzt-Tyxum-Xwr stions.htmlTo learn more about the COVID-19 vaccine, we invite you to visit the [facility] website for a list of frequently asked questions. [email or web address] _[email or web address].pdf [facility] Patient Portal Access Instructions: Stay connected with your healthcare team and access your personal medical information anytime with the [facility] Patient Portal. If you would like a full copy of your medical records please contact the [facility] Medical Records Department Tuesday through Tuesday between 8a.m. and 4:30p.m. Please follow the directions below to access the portal: 1.Access the email account you provided upon registration to the [facility].2.Look for an invitation email from [facility].3.Open the email and access the invitation link: Accept Invitation to [facility])4.Fill in the required avitia to create your account. Sign into [email or web address] with your username and password that you created in the above steps to stay up to date. You can then view a summary of results, a summary of your visits, and the ability to download your summaries to your computer or send the information securely to a physician. Remember that your healthcare information is confidential, so carefully consider who you will allow to register on the [facility] Patient Portal for access to your information. You can also access the [facility] Patient Portal on the [employer] buddy. Simply click on Health Records under [employer] and then click on the [employer] logo. HOW TO SAFELY DISPOSE OF PRESCRIPTION MEDICATIONS Please use one of the following methods to safely dispose of your unused medications. 1.Use a drug disposal kit: the drug disposal pouch allows you to safely discard your old and unuseddrugs. Ask your nurse to give you one when you are discharged.2.Visit a local take-back location: Many local pharmacies and police departments have programs that collect old and unwanted prescriptiondrugs. Call your local pharmacy or go to http://[employer]/8B3Id6u to find one close to you.3.Make use of household items: Use cat litter or old coffee grounds to dispose medications if other options arenot available. Mix your drugs with these household products, seal them in an airtight container andthrow it into the garbage. Call [facility]: [phone] to be sure your drugs can be disposed of in this way. Some medicines may require a different approach.4.Never flush your medications down the toilet. IF YOU HAVE BEEN PRESCRIBED AN OPIOIDS FOR PAIN If you have been prescribed an opioid (such as hydrocodone, oxycodone or morphine), it is critical to understand the possible side effects and risks of opioid pain medications. Even when taken as directed, opioids can have several side effects including: Tolerance, meaning you might need to take more of a medication for the same pain relief. Nausea, vomiting and/or constipation. Sleepiness, dizziness, dry mouth, confusion, depression or itching. Physical dependence, meaning you have withdrawal symptoms when a medication is stopped ? this can develop within a few days. KNOW YOUR RESPONSIBILITIES It is important to know exactly how much and how often to take the opioid pain medications you are prescribed. Never take opioids in higher amounts or more often than prescribed. Do not combine opioids with alcohol or other drugs that cause drowsiness, such as benzodiazepines, also known as benzos,including diazepam and alprazolam, muscle relaxants or sleep aids. Never sell or share prescriptionopioids. This is illegal. Store opioids in a secure place and out of reach of others (including children, family, friends and visitors). The last page(s) of this document has been signed and retained as a CHART COPY Signatures Patient Education Materials Hypokalemia Medication Leaflets My discharge plan and instructions have been reviewed and explained to me and ISIL MAURICA J understand my current condition and have read and understand these discharge instructions. I have received a written copy of the plan/instructions. If I have questions, I am aware that I should contact my doctor. 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 Signature: Date/Time: Relationship to Patient: Witness Name/Signature: Date/Time: [facility]10-06-2022 Note ORIGINAL EXAMINATION: ONE XRAY VIEW OF THE CHEST11/19/2021 6:25 pm XR Chest, portable upright COMPARISON: 09/06/2021 HISTORY: ORDERING SYSTEM PROVIDED HISTORY: Reason for Exam: chest pain, FINDINGS: The lungs show no infiltrate, consolidation or mass. Heart size and mediastinal contours are stable accounting for differences in projection and patient position. No pneumothorax, pleural fluid, or vascular congestion is seen. The bones show no acute process. Postop changes in the heart and mediastinum. Remote right rib fracture deformities. IMPRESSION: No acute cardio pulmonary process. Interpreted by: Mohan Gonzales MD Preliminary Report By: Mohan Gonzales MD Electronically signed By Mohan Gonzales MD Dictated Date: 11/19/2021 6:27:52 PM Prelim Date: 11/19/2021 6:28:18 PM Sign Date: 11/19/2021 6:28:18 PM Ordering Provider: [facility]10-06-2022 Note ORIGINAL EXAMINATION: ONE XRAY VIEW OF THE CHEST11/19/2021 6:25 pm XR Chest, portable upright COMPARISON: 09/06/2021 HISTORY: ORDERING SYSTEM PROVIDED HISTORY: Reason for Exam: chest pain, FINDINGS: The lungs show no infiltrate, consolidation or mass. Heart size and mediastinal contours are stable accounting for differences in projection and patient position. No pneumothorax, pleural fluid, or vascular congestion is seen. The bones show no acute process. Postop changes in the heart and mediastinum. Remote right rib fracture deformities. IMPRESSION: No acute cardio pulmonary process. Interpreted by: Mohan Gonzales MD Preliminary Report By: Mohan Gonzales MD Electronically signed By Mohan Gonzales MD Dictated Date: 11/19/2021 6:27:52 PM Prelim Date: 11/19/2021 6:28:18 PM Sign Date: 11/19/2021 6:28:18 PM Ordering Provider: [facility]07-24-2022 Hospital Discharge instructions Patient Education 09/06/2021 20:46:33 Shortness of Breath (Dyspnea) Shortness of Breath (Dyspnea) Shortness of breath is the feeling that you can't catch your breath or get enough air. It is also known as dyspnea. Dyspnea can be caused by many different conditions. They include: Acute asthma attack Worsening of chronic lung diseases such as chronic bronchitis and emphysema Heart failure. This is when weak heart muscle allows extra fluid to collect in the lungs. Panic attacks or anxiety. Fear can cause rapid breathing (hyperventilation). Pneumonia, or an infection in the lung tissue Exposure to toxic substances, fumes, smoke, or certain medicines Blood clot in the lung (pulmonary embolism). This is often from a piece of blood clot in a deep vein of the leg (deep vein thrombosis) that breaks off and travels to the lungs. Heart attack or heart-related chest pain (angina) Anemia Collapsed lung (pneumothorax) Dehydration Based on your visit today, the exact cause of your shortness of breath is not certain. Your tests don t show any of the serious causes of dyspnea. You may need other tests to find out if you have a serious problem. It s important to watch for any new symptoms or symptoms that get worse. Follow up with your healthcare provider as directed. Home care Follow these tips to take care of yourself at home: When your symptoms are better, go back to your usual activities. If you smoke, you should stop. Join a quit-smoking program or ask your healthcare provider for help. Eat a healthy diet and get plenty of sleep. Get regular exercise. Talk with your healthcare provider before starting to exercise, especially ifyou have other medical problems. Cut down on the amount of caffeine and stimulants you consume. Follow-up care Follow up with your healthcare provider, or as advised. If tests were done, you will be told if your treatment needs to be changed. You can call as directed for the results. If an X-ray was taken, a specialist will review it. You will be notified of any new findings that may affect your care. Call 911 Shortness of breath may be a sign of a serious medical problem. For example, it may be a problem with your heart or lungs. Call 911 if you have worsening shortness of breath or trouble breathing, especially with any of the symptoms below: Confusion or difficulty waking Fainting or loss of consciousness. Fast or irregular heartbeat Coughing up blood Pain in your chest, arm, shoulder, neck, or upper back Sweating When to seek medical advice Call your healthcare provider right away if any of these occur: Slight shortness of breath or wheezing Redness, pain or swelling in your leg, arm, or other body area Swelling in both legs or ankles Fast weight gain Dizziness or weakness Fever of 100.4 F (38 C) or higher, or as directed by your healthcare provider [id number] [employer]. [address] [place] [address]. All rights reserved. This information is not intended as a substitute for professional medical care. Always follow yourhealthcare professional's instructions. Follow Up Care 09/06/2021 18:33:05 With:[facility] Address: [address] [place], [place] [address] [address]- When:2-4 days [facility] 07-24-2022 Note Discharge Instructions Thank you for allowing [facility] to assist you with your healthcare needs. The following is importantdischarge information regarding your hospital visit. Diagnosis from Today's Visit SOB - Shortness of breath What to Do Next Instructions from Your Care Team No qualifying data available. Post Acute Orders No qualifying data available. You Need to Schedule the Following Appointments Follow Up with [facility] When Within 2-4 days Where: [address] [facility] [place] [address]- Allergies NKA Medications Please ask your primary doctor or pharmacist before taking any other medication not listed, including over the counter drugs, herbal medications, vitamins and or supplements as they may interact withyour home medications. What How Much When Instructions Last Dose New ondansetron (ondansetron 4 mg oral tablet, disintegrating) 1 tab(s) by mouth Every 8 hours as needed for as needed for nausea/vomiting Duration: 3 Days Printed Prescription Unchanged estradiol (estradiol 1 mg oral tablet) 0.5 tab(s) by mouth Once a day Unchanged lysine (lysine 500 mg oral tablet) 2 tab(s) by mouth Every day Unchanged Misc Medication (Collegan peptides) See instructions 600 mg DAILY Unchanged SUMAtriptan (SUMAtriptan 50 mg oral tablet) Unchanged topiramate (topiramate 25 mg oral tablet) Unchanged valACYclovir (valACYclovir 500 mg oral tablet) Unchanged warfarin (Coumadin) 3 Milligram by mouth Once a day Unchanged warfarin (warfarin 3 mg oral tablet) 1 tab(s) by mouth Once a day Please take this list to your next doctor s visit. Bring all medications you take, including over the counter medications, herbals and other supplements with you to your doctor s visit. Patients and families are reminded to discard old lists and to update any records with all medication providers or retail pharmacies. Education Materials Shortness of Breath (Dyspnea) Shortness of breath is the feeling that you can't catch your breath or get enough air. It is also known as dyspnea. Dyspnea can be caused by many different conditions. They include: Acute asthma attack Worsening of chronic lung diseases such as chronic bronchitis and emphysema Heart failure. This is when weak heart muscle allows extra fluid to collect in the lungs. Panic attacks or anxiety. Fear can cause rapid breathing (hyperventilation). Pneumonia, or an infection in the lung tissue Exposure to toxic substances, fumes, smoke, or certain medicines Blood clot in the lung (pulmonary embolism). This is often from a piece of blood clot in a deep vein of the leg (deep vein thrombosis) that breaks off and travels to the lungs. Heart attack or heart-related chest pain (angina) Anemia Collapsed lung (pneumothorax) Dehydration Based on your visit today, the exact cause of your shortness of breath is not certain. Your tests don t show any of the serious causes of dyspnea. You may need other tests to find out if you have a serious problem. It s important to watch for any new symptoms or symptoms that get worse. Follow up with your healthcare provider as directed. Home care Follow these tips to take care of yourself at home: When your symptoms are better, go back to your usual activities. If you smoke, you should stop. Join a quit-smoking program or ask your healthcare provider for help. Eat a healthy diet and get plenty of sleep. Get regular exercise. Talk with your healthcare provider before starting to exercise, especially ifyou have other medical problems. Cut down on the amount of caffeine and stimulants you consume. Follow-up care Follow up with your healthcare provider, or as advised. If tests were done, you will be told if your treatment needs to be changed. You can call as directed for the results. If an X-ray was taken, a specialist will review it. You will be notified of any new findings that may affect your care. Call 911 Shortness of breath may be a sign of a serious medical problem. For example, it may be a problem with your heart or lungs. Call 911 if you have worsening shortness of breath or trouble breathing, especially with any of the symptoms below: Confusion or difficulty waking Fainting or loss of consciousness. Fast or irregular heartbeat Coughing up blood Pain in your chest, arm, shoulder, neck, or upper back Sweating When to seek medical advice Call your healthcare provider right away if any of these occur: Slight shortness of breath or wheezing Redness, pain or swelling in your leg, arm, or other body area Swelling in both legs or ankles Fast weight gain Dizziness or weakness Fever of 100.4 F (38 C) or higher, or as directed by your healthcare provider [phone] [employer]. [address] [place] [address], [place] [address]. All rights reserved. This information is not intended as a substitute for professional medical care. Always follow yourhealthcare professional's instructions. Additional Information VACCINATE! IT SAVES LIVES! Members of the community who have not yet received the COVID-19 vaccine and would like to receive it can visit one of [facility] vaccine clinics. There are many vaccine clinic locations within the [facility]. For locations and available times, please visit [email or web address]. It is important to note that some COVID mobile vaccine clinics are held outdoors and may be canceled in rainy orstormy conditions. To learn more about pediatric vaccinations (ages 5-11), we invite you to visit the [facility] webpage. https://www.[email or web address]/pages/[email or web address]-Vjsuf-Lgitsovblmy-Fnhwryeagz-Izdxj-Mxg stions.htmlTo learn more about the COVID-19 vaccine, we invite you to visit the [facility] website for a list of frequently asked questions. [email or web address] _[email or web address].pdf [facility] Patient Portal Access Instructions: Stay connected with your healthcare team and access your personal medical information anytime with the [facility] Patient Portal. If you would like a full copy of your medical records please contact the [facility] Medical Records Department Tuesday through Tuesday between 8a.m. and 4:30p.m. Please follow the directions below to access the portal: 1.Access the email account you provided upon registration to the hospital.2.Look for an invitation email from [facility].3.Open the email and access the invitation link: Accept Invitation to [facility]4.Fill in the required avitia to create your account. Sign into [email or web address] with your username and password that you created in the above steps to stay up to date. You can then view a summary of results, a summary of your visits, and the ability to download your summaries to your computer or send the information securely to a physician. Remember that your healthcare information is confidential, so carefully consider who you will allow to register on the [facility] Patient Portal for access to your information. You can also access the [facility] Patient Portal on the [employer] buddy. Simply click on Health Records under [employer] and then click on the [facility] logo. HOW TO SAFELY DISPOSE OF PRESCRIPTION MEDICATIONS Please use one of the following methods to safely dispose of your unused medications. 1.Use a drug disposal kit: the drug disposal pouch allows you to safely discard your old and unuseddrugs. Ask your nurse to give you one when you are discharged.2.Visit a local take-back location: Many local pharmacies and police departments have programs that collect old and unwanted prescriptiondrugs. Call your local pharmacy or go to http://[employer]/4U9Oa0v to find one close to you.3.Make use of household items: Use cat litter or old coffee grounds to dispose medications if other options arenot available. Mix your drugs with these household products, seal them in an airtight container andthrow it into the garbage. Call [facility]: [phone] to be sure your drugs can be disposed of in this way. Some medicines may require a different approach.4.Never flush your medications down the toilet. IF YOU HAVE BEEN PRESCRIBED AN OPIOIDS FOR PAIN If you have been prescribed an opioid (such as hydrocodone, oxycodone or morphine), it is critical to understand the possible side effects and risks of opioid pain medications. Even when taken as directed, opioids can have several side effects including: Tolerance, meaning you might need to take more of a medication for the same pain relief. Nausea, vomiting and/or constipation. Sleepiness, dizziness, dry mouth, confusion, depression or itching. Physical dependence, meaning you have withdrawal symptoms when a medication is stopped ? this can develop within a few days. KNOW YOUR RESPONSIBILITIES It is important to know exactly how much and how often to take the opioid pain medications you are prescribed. Never take opioids in higher amounts or more often than prescribed. Do not combine opioids with alcohol or other drugs that cause drowsiness, such as benzodiazepines, also known as benzos,including diazepam and alprazolam, muscle relaxants or sleep aids. Never sell or share prescriptionopioids. This is illegal. Store opioids in a secure place and out of reach of others (including children, family, friends and visitors). The last page(s) of this document has been signed and retained as a CHART COPY Signatures Patient Education Materials Shortness of Breath (Dyspnea) Medication Leaflets My discharge plan and instructions have been reviewed and explained to me and SIL Gonsalves MAURICA J understand my current condition and have read and understand these discharge instructions. I have received a written copy of the plan/instructions. If I have questions, I am aware that I should contact my doctor. 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 Vascular structures appear within normal limits. There is no consolidation. No pleural fluid or pneumothorax. No aggressive osseous lesions identified.Remodeled right rib deformities noted. Sternotomy wires and a valve prosthesis seen. IMPRESSION: No acute radiographic findings. Interpreted by: Ameya Dean MD Preliminary Report By: Ameya Dean MD Electronically signed By Ameya Dean MD Dictated Date: 09/06/2021 7:12:38 PM Prelim Date: 09/06/2021 7:13:34 PM Sign Date: 09/06/2021 7:13:34 PM Ordering Provider: SRIDHAR ESPINOZA [facility]07-24-2022 Note ORIGINAL EXAMINATION: ONE XRAY VIEW OF THE CHEST09/06/2021 7:04 pm COMPARISON: 09/10/2020 HISTORY: ORDERING SYSTEM PROVIDED HISTORY: Reason for Exam: dyspnea FINDINGS: The heart is borderline in size. Vascular structures appear within normal limits. There is no consolidation. No pleural fluid or pneumothorax. No aggressive osseous lesions identified.Remodeled right rib deformities noted. Sternotomy wires and a valve prosthesis seen. IMPRESSION: No acute radiographic findings. Interpreted by: Ameya Dean MD Preliminary Report By: Ameya Dean MD Electronically signed By Ameya Dean MD Dictated Date: 09/06/2021 7:12:38 PM Prelim Date: 09/06/2021 7:13:34 PM Sign Date: 09/06/2021 7:13:34 PM Ordering Provider: SRIDHAR [facility] [id number] Evaluation + Plan note Future Scheduled Tests Laboratory* Lipid Profile 08/19/21 [facility] 12-01-2021 History of Present illness Narrative* Eric Huff MD - 01/14/2021 1:27 PM EST DATE OF SERVICE: 01/13/2021 REASON FOR VISIT: Right jaw pain. HISTORY OF PRESENT ILLNESS: This is a 55-year-old female presenting with right jaw pain for the last 4 days. Denies any tooth problem. The patient stated that she just saw a dentist not too long ago. She did not have any tooth problem. No fever or chills. It hurts when she bites something hard. She points toward the area in front of her right ear for this pain. Eating and drinking well. Denied any ear pain. No cough, congestion. The patient told me toward the end of the visit that she had a cat bite on right forearm about a week ago, but the wound has healed. REVIEW OF OTHER SYSTEMS: Normal. ALLERGIES: NKA. MEDICATIONS: 1. Warfarin. 2. Estradiol. PHYSICAL EXAMINATION: She is awake, alert, not in distress. No dyspnea. Temperature 99.0, blood pressure 162/89, pulse 81, respirations 16, pulse oximetry 98% on room air, pain score 7/10. HEENT examination reveals she has tenderness in the right preauricular area with swelling of the soft tissue. No obvious lymphadenopathy was seen. Her ear exam was normal. There was no tenderness of the mandible. TMJ was also nontender. Motion of the lower jaw against resistance is normal and not painful. No lesion seen in the oral cavity. No cervical lymphadenopathy. Chest clear to auscultate. Heart regular rate and rhythm. Neurologically normal. Clinically this could be a preauricular lymph node inflammation. I looked at her cat bite area on the distal forearm, which is 2 puncture wounds which have now healed, with dry scab. There is no sign of inflammation or any infection. When the patient told me about the cat bite, I reviewed all the systems again. Other than this jaw pain, she does not have any other symptoms and can drink fluid normally. ASSESSMENT: Right preauricular lymphadenitis. PLAN: Clinical findings were discussed with the patient in detail. I explained to her that pain is most likely preauricular lymph node inflammation. I gave her Augmentin 875 mg twice a day for 7 days with no refills. Although I do not think this is related to cat bite, I explained to her that a stray cat sometimes can carry the rabies virus as well, so if there is any abnormal symptom, she must go to the hospital for further evaluation and care. The patient understands and agrees. Her questions were answered to her satisfaction. She was discharged in stable condition. Eric Huff MD [id number] [facility] File#: [id number] END OF DOCUMENT / CHANGE LOG FOLLOWS Last Edited By [employer]. Signed By Eric Huff MD #[id number] Eric Huff MD #[id number] on 01/15/2021 08:52 ET on 01/15/2021 08:52 ET Revision Number - 2 ^^^ Verified/Reviewed by 01/15/21 0852 [facility] PATIENT NAME: GARDENIA MUJICA [address] [place] MEDICAL REC #: [id number] [place] [address] [facility] REPORT STATCARE PHYSICIAN [facility] Future Scheduled Tests Laboratory* Lipid Profile 08/19/21 [facility] Evaluation note* Diagnosis Gastroesophageal reflux disease, unspecified whether esophagitis present History of bariatric surgery Bariatric surgery status documented in this encounter [facility] note* Diagnosis Helicobacter pylori infection- Primary Helicobacter pylori (H. pylori) documented in this encounter [facility] note* Diagnosis Helicobacter pylori infection Helicobacter pylori (H. pylori) documented in this encounter [facility] note* Diagnosis Helicobacter pylori infection- Primary Helicobacter pylori (H. pylori) Gastroesophageal reflux disease without esophagitis Esophageal reflux History of bariatric surgery Bariatric surgery status Hx of aortic valve replacement, mechanical Heart valve replaced by other means NATO (obstructive sleep apnea) Obstructive sleep apnea (adult) (pediatric) Class 1 obesity with serious comorbidity and body mass index (BMI) of 33.0 to 33.9 in adult, unspecified obesity type documented in this encounter [facility] note* Diagnosis Gastroesophageal reflux disease with esophagitis without hemorrhage- Primary Helicobacter pylori infection Helicobacter pylori (H. pylori) Class 1 obesity with serious comorbidity and body mass index (BMI) of 31.0 to 31.9 in adult, unspecified obesity type History of bariatric surgery Bariatric surgery status History of mechanical aortic valve replacement Heart valve replaced by other means NATO (obstructive sleep apnea) Obstructive sleep apnea (adult) (pediatric) Nutritional anemia Unspecified deficiency anemia documented in this encounter [facility] note* Diagnosis Gastroesophageal reflux disease with esophagitis without hemorrhage- Primary Helicobacter pylori infection Helicobacter pylori (H. pylori) Class 1 obesity with serious comorbidity and body mass index (BMI) of 31.0 to 31.9 in adult, unspecified obesity type History of bariatric surgery Bariatric surgery status History of mechanical aortic valve replacement Heart valve replaced by other means NATO (obstructive sleep apnea) Obstructive sleep apnea (adult) (pediatric) documented in this encounter [facility] note* Diagnosis Gastroesophageal reflux disease, unspecified whether esophagitis present Preop examination Preoperative examination, unspecified Obstructive sleep apnea Obstructive sleep apnea (adult) (pediatric) H/O mechanical aortic valve replacement Heart valve replaced by other means Primary hypertension Unspecified essential hypertension Gastroesophageal reflux disease with esophagitis without hemorrhage documented in this encounter [facility] note* Diagnosis Gastroesophageal reflux disease, unspecified whether esophagitis present Preop examination Preoperative examination, unspecified Obstructive sleep apnea Obstructive sleep apnea (adult) (pediatric) H/O mechanical aortic valve replacement Heart valve replaced by other means Primary hypertension Unspecified essential hypertension Increased PTH level- Primary Unspecified endocrine disorder Blood alkaline phosphatase increased compared with prior measurement documented in this encounter [facility] note* Diagnosis Gastroesophageal reflux disease, unspecified whether esophagitis present Preop examination Preoperative examination, unspecified Obstructive sleep apnea Obstructive sleep apnea (adult) (pediatric) H/O mechanical aortic valve replacement Heart valve replaced by other means Primary hypertension Unspecified essential hypertension Gastroesophageal reflux disease with esophagitis without hemorrhage- Primary History of bariatric surgery Bariatric surgery status Class 1 obesity with serious comorbidity and body mass index (BMI) of 31.0 to 31.9 in adult, unspecified obesity type NATO (obstructive sleep apnea) Obstructive sleep apnea (adult) (pediatric) documented in this encounter [facility] note* Diagnosis Gastroesophageal reflux disease, unspecified whether esophagitis present Preop examination Preoperative examination, unspecified Obstructive sleep apnea Obstructive sleep apnea (adult) (pediatric) H/O mechanical aortic valve replacement Heart valve replaced by other means Primary hypertension Unspecified essential hypertension Class 1 obesity with serious comorbidity and body mass index (BMI) of 31.0 to 31.9 in adult, unspecified obesity type- Primary documented in this encounter [facility] course Narrative No data available for this section [facility] Hospital Discharge instructions No data available for this section [facility] Note* GARERTT MALONE MD: SIGN, VERIFY Event Display: EKG [ED AO] - CV Authored Date: [facility] Progress note No data available for this section [facility] Reason for referral (narrative)* Diagnostic Procedure Only (Routine) - Closed Specialty Diagnoses / Procedures Referred By Contac t Referred To Contact XR IMAGING Diagnoses Gastroesophageal reflux disease, unspecified whether esophagitis present History of bariatric surgery Procedures XR UPPER GI SINGLE CONTRAST RADIOLOGIC EXAM UPR GI TRC SINGLE CONTRAST STUDY Jayashree Hernandez MD 1 [employer] [place] [address] [place] [address] [place] [address] Referral ID Status Reason Start Date Expiration Date V isits Requested Visits Authorized [id number] Closed Auto-Generate d Referral 02/14/2023 02/14/2024 1 1 [facility] for referral (narrative)* Diagnostic Procedure Only (Routine) - Pending Review Specialty Diagnoses / Procedures [facility] Referred To Contact US IMAGING Diagnoses Gastroesophageal reflux disease with esophagitis without hemorrhage Procedures US ABD RIGHT UPPER QUADRANT US ABDOMINAL REAL TIME W/IMAGE LIMITED Jayashree Hernandez MD 1 [employer] [address] [address] [place] [phone] [place] [address] Referral ID Status Reason Start Date Expiration Date Visits Requested Visits Authorized [id number] Pending Review Auto-Generat ed Referral 07/28/2023 08/26/2024 1 1 T [facility] for referral (narrative)* Diagnostic Procedure Only (Routine) - Closed Specialty Diagnoses / Procedures [facility] Referred To Contact US IMAGING Diagnoses Gastroesophageal reflux disease with esophagitis without hemorrhage Procedures US ABD RIGHT UPPER QUADRANT US ABDOMINAL REAL TIME W/IMAGE LIMITED Jayashree Hernandez MD 1 [employer] [address] [address] [place] [phone] [place] [address] Referral ID Status Reason Start Date Expiration Date V isits Requested Visits Authorized [id number] Closed Auto-Generate d Referral 07/28/2023 08/26/2024 1 1 [facility] for visit Narrative* Diagnostic Procedure Only (Routine) - Closed Specialty Diagnoses / Procedures [facility] Referred To Contact XR IMAGING Diagnoses Gastroesophageal reflux disease, unspecified whether esophagitis present History of bariatric surgery Procedures XR UPPER GI SINGLE CONTRAST RADIOLOGIC EXAM UPR GI TRC SINGLE CONTRAST STUDY Jayashree Hernandez MD 1 [employer] [address] [place] [address] [place] [address] Referral ID Status Reason Start Date Expiration Date V isits Requested Visits Authorized [id number] Closed Auto-Generate d Referral 02/14/2023 02/14/2024 1 1 [facility] Summary Purpose Family History No Family History Records FoundNo Family History Records FoundNo Family History Records FoundNo Family History Records Found No data available for this section No data available for this section No data available for this section No data available for this section No data available for this section No Family History Records FoundNo Family History Records FoundNo Family History Records Found Advance Directives Documents on File Type Date Recorded 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 Advance Directive(s) Additional Source Comments INFORMATION SOURCE (unrecogn ized section and content) DATE CREATED AUTHOR 06/15/2018 [facility] DATE CREATED AUTHOR AUTHOR'S ORGANIZ ATION 06/20/2018 [facility] DATE CREATED AUTHOR AUTHOR'S ORGANIZ ATION 02/22/2021 [facility] [place] DATE CREATED AUTHOR AUTHOR'S ORGANIZ ATION 09/09/2021 [facility] DATE CREATED AUTHOR AUTHOR'S ORGANIZ ATION 07/31/2023 [facility] DATE CREATED AUTHOR AUTHOR'S ORGANIZ ATION 10/23/2023 [facility] DATE CREATED AUTHOR AUTHOR'S ORGANIZ ATION 11/04/2023 Hafsa Peterson [facility] Care Team (unrecognized sect ion and content) Joiner Helper Relationship Specialty Start Date End Date D[facility], [facility] [address] [place] [address] PCP - General 03/11/23 Joiner Helper Relationship Specialty Start Date End Date [facility] [address] [place] [address] PCP - General 03/11/23 Joiner Helper Relationship Specialty Start Date End Date [facility] [address] [place] [address] PCP - General 03/11/23 Joiner Helper Relationship Specialty Start Date End Date [facility] [address] [place] [address] PCP - General 03/11/23 Joiner Helper Relationship Specialty Start Date End Date Dc [place] [address] [address] [place] [address] PCP - General 03/11/23 Joiner Helper Relationship Specialty Start Date End Date [address] [address] [place] [address] PCP - General 03/11/23 Joiner Helper Relationship Specialty Start Date End Date [facility] [address] [place] [address] PCP - General 03/11/23 Joiner Helper Relationship Specialty Start Date End Date [facility] [address] [place] [address] PCP - General 03/11/23 Joiner Helper Relationship Specialty Start Date End Date [facility] [address] [place] [address] PCP - General 03/11/23 Joiner Helper Relationship Specialty Start Date End Date [facility] [address] [place] [address] PCP - General 03/11/23 Joiner Helper Relationship Specialty Start Date End Date [facility] [address] [place] [address] PCP - General 03/11/23 Joiner Helper Relationship Specialty Start Date End Date [facility] [address] [place] [address] PCP - General 03/11/23 Joiner Helper Relationship Specialty Start Date End Date [facility] [address] [place] [address] PCP - General 03/11/23 Joiner Helper Relationship Specialty Start Date End Date [facility] [address] [place] [address] PCP - General 03/11/23 Joiner Helper Relationship Specialty Start Date End Date D[facility] [address] [place] [address] PCP - General 03/11/23 Joiner Helper Relationship Specialty Start Date End Date Dc [facility] [address] [place] [address] PCP - General 03/11/23 Joiner Helper Relationship Specialty Start Date End Date Dc [facility] [address] [place] [address] PCP - General 03/11/23 Joiner Helper Relationship Specialty Start Date End Date Dc [facility] [address] [place] [address] PCP - General 03/11/23 Source Comments (unrecognize d section and content) In the event this informatio n is protected by the Federal Confidentiality of Alcohol and Drug Abuse Patient Records regulations: The Federal rules restrict any use of the information to criminally investigate or prosecute any alcohol or drug abuse patient.[facility] the event this information is protected by the Federal Confidentiality of Alcohol and Drug Abuse Patient Records regulations: The Federal rules restrict any use of the information to criminally investigate or prosecute any alcohol or drug abuse patient.[facility] Center[facility] the event this information is protected by the Federal Confidentiality of Alcohol and Drug Abuse Patient Records regulations: The Federal rules restrict any use of the information to criminally investigate or prosecute any alcohol or drug abuse patient.[facility] Center[facility] the event this information is protected by the Federal Confidentiality of Alcohol and Drug Abuse Patient Records regulations: The Federal rules restrict any use of the information to criminally investigate or prosecute any alcohol or drug abuse patient.[facility] Center[facility] the event this information is protected by the Federal Confidentiality of Alcohol and Drug Abuse Patient Records regulations: The Federal rules restrict any use of the information to criminally investigate or prosecute any alcohol or drug abuse patient.[facility] CenterIn the event this information is protected by the Federal Confidentiality of Alcohol and Drug Abuse Patient Records regulations: The Federal rules restrict any use of the information to criminally investigate or prosecute any alcohol or drug abuse patient.[facility] CenterIn the event this information is protected by the Federal Confidentiality of Alcohol and Drug Abuse Patient Records regulations: The Federal rules restrict any use of the information to criminally investigate or prosecute any alcohol or drug abuse patient.[facility] CenterIn the event this information is protected by the Federal Confidentiality of Alcohol and Drug Abuse Patient Records regulations: The Federal rules restrict any use of the information to criminally investigate or prosecute any alcohol or drug abuse patient.[facility] CenterIn the event this information is protected by the Federal Confidentiality of Alcohol and Drug Abuse Patient Records regulations: The Federal rules restrict any use of the information to criminally investigate or prosecute any alcohol or drug abuse patient.[facility] CenterIn the event this information is protected by the Federal Confidentiality of Alcohol and Drug Abuse Patient Records regulations: The Federal rules restrict any use of the information to criminally investigate or prosecute any alcohol or drug abuse patient.[facility] CenterIn the event this information is protected by the Federal Confidentiality of Alcohol and Drug Abuse Patient Records regulations: The Federal rules restrict any use of the information to criminally investigate or prosecute any alcohol or drug abuse patient.[facility] CenterIn the event this information is protected by the Federal Confidentiality of Alcohol and Drug Abuse Patient Records regulations: The Federal rules restrict any use of the information to criminally investigate or prosecute any alcohol or drug abuse patient.[facility] CenterIn the event this information is protected by the Federal Confidentiality of Alcohol and Drug Abuse Patient Records regulations: The Federal rules restrict any use of the information to criminally investigate or prosecute any alcohol or drug abuse patient.[facility] CenterIn the event this information is protected by the Federal Confidentiality of Alcohol and Drug Abuse Patient Records regulations: The Federal rules restrict any use of the information to criminally investigate or prosecute any alcohol or drug abuse patient.[facility] CenterIn the event this information is protected by the Federal Confidentiality of Alcohol and Drug Abuse Patient Records regulations: The Federal rules restrict any use of the information to criminally investigate or prosecute any alcohol or drug abuse patient.[facility] CenterIn the event this information is protected by the Federal Confidentiality of Alcohol and Drug Abuse Patient Records regulations: The Federal rules restrict any use of the information to criminally investigate or prosecute any alcohol or drug abuse patient.[facility] CenterIn the event this information is protected by the Federal Confidentiality of Alcohol and Drug Abuse Patient Records regulations: The Federal rules restrict any use of the information to criminally investigate or prosecute any alcohol or drug abuse patient.[facility] CenterIn the event this information is protected by the Federal Confidentiality of Alcohol and Drug Abuse Patient Records regulations: The Federal rules restrict any use of the information to criminally investigate or prosecute any alcohol or drug abuse patient.[facility] CenterIn the event this information is protected by the Federal Confidentiality of Alcohol and Drug Abuse Patient Records regulations: The Federal rules restrict any use of the information to criminally investigate or prosecute any alcohol or drug abuse patient.[facility] CenterIn the event this information is protected by the Federal Confidentiality of Alcohol and Drug Abuse Patient Records regulations: The Federal rules restrict any use of the information to criminally investigate or prosecute any alcohol or drug abuse patient.[facility] CenterIn the event this information is protected by the Federal Confidentiality of Alcohol and Drug Abuse Patient Records regulations: The Federal rules restrict any use of the information to criminally investigate or prosecute any alcohol or drug abuse patient.[facility] Care Team (unrecognized sect ion and content) Care Team Personnel Name: [facility] Position: Physician Member Role: Primary Care Physician Address: Address: [address] [place] [address] Care Team Personnel Name: [facility], [facility] Position: Physician Member Role: Primary Care Physician Address: Address: [address] [place] [address] Care Team Personnel Name: [facility], [facility] Position: Physician Member Role: Primary Care Physician Address: Address: [address] [place] [address] Care Team Personnel Name: [facility], [facility] Position: Physician Member Role: Primary Care Physician Address: Address: [address] [place] [address] Care Team Personnel Name: [facility], [facility] Position: Physician Member Role: Primary Care Physician Address: Address: [address] [place] [address] Care Team Personnel Name: [facility], [facility] Position: Physician Member Role: Primary Care Physician Address: Address: [address] [place] [address] Name: Shereen Boykin RN Position: RN Member Role: ED RN Name: JENNIFER MINOR DO Position: ED Physician Member Role: Attending Physician Address: Address: [facility] [address] [place] [address] Care Team Personnel Name: [facility], [facility] Position: Physician Member Role: Primary Care Physician Address: Address: [address] [place] [address] Name: MD ARMAND[address] MD Position: ED Physician Member Role: ED Physician Address: Address: [facility] [address] [place] [address] Name: Jodi Martinez RN Position: ED RN Member Role: ED RN Care Team Personnel Name: [facility] Position: Physician Member Role: Primary Care Physician Address: Address: [address] [place] [address] Reason for Visit (unrecogniz ed section and content) Reason Comments Appointment Reason Comments Follow Up Specialty Diagnoses / Procedures Referred By Contac t Referred To Contact General Surgery / GENERAL SURGERY Diagnoses Encounter for general adult medical examination without abnormal findings HBC - F/U - UGI & EGD Lopez Procedures OFFICE/OUTPATIENT ESTABLISHED HIGH MDM 40 MIN OFFICE/OUTPATIENT ESTABLISHED MOD MDM 30 MIN OFFICE/OUTPATIENT ESTABLISHED LOW MDM 20 MIN OFFICE/OUTPATIENT ESTABLISHED SF MDM 10 MIN EST PATIENT Self Jayashree Hernandez MD [address] [place] [address] Referral ID Status Reason Start Date Expiration Date Visits Re quested Visits Authorized [id number] Closed 11/24/2022 08/24/2023 1 1 Reason Comments Patient Update [facility] benefits informat ion Reason Comments Established Patient Specialty Diagnoses / Procedures Referred By Contac t Referred To Contact General Surgery / GENERAL SURGERY Diagnoses Gastroparesis HBC - F/U Gastroparesis Procedures OFFICE/OUTPATIENT ESTABLISHED SF MDM 10 MIN OFFICE/OUTPATIENT ESTABLISHED LOW MDM 20 MIN OFFICE/OUTPATIENT ESTABLISHED MOD MDM 30 MIN OFFICE/OUTPATIENT ESTABLISHED HIGH MDM 40 MIN EST PATIENT Jayashree Hernandez MD [address] [employer] [address] [place] [address] Jayashree Hernandez MD [address] [facility] [employer] [address] [place] [address] Referral ID Status Reason Start Date Expiration Date Visits Re quested Visits Authorized [id number] Closed 11/24/2022 12/01/2023 1 1 Reason Comments Appointment Patient Question Reason Comments Patient Update Reason Comments Established Patient Reason Comments Medical Clearance Reason Comments Radiology US Specialty Diagnoses / Procedures Referred By Contac t Referred To Contact US IMAGING Diagnoses Gastroesophageal reflux disease with esophagitis without hemorrhage Procedures US ABD RIGHT UPPER QUADRANT US ABDOMINAL REAL TIME W/IMAGE LIMITED Jayashree Hernandez MD 1 [employer] [address] [place] [address] [place] [address] Referral ID Status Reason Start Date Expiration Date V isits Requested Visits Authorized [id number] Closed Auto-Generate d Referral 07/28/2023 08/26/2024 1 1 Reason Comments GERD FOR RECORDS PERTAINING TO PATIENTS WHO ARE OR HAVE BEEN ENROLLED IN A CHEMICAL DEPENDENCY/SUBSTANCEABUSE PROGRAM, SOME INFORMATION MAY BE OMITTED. This clinical summary was aggregated from multiple sources. Caution should be exercised in using it in the provision of clinical care. This summary normalizes information from multiple sources, and as a consequence, information in this document may materially change the coding, format and clinical context of patient data. In addition, data may be omitted in some cases. CLINICAL DECISIONS SHOULD BE BASED ON THE PRIMARY CLINICAL RECORDS. [employer] [facility]. provides no warranty or guarantee of the accuracy or completeness of information in this document.
== END 2023-12-07 17:49 | disposition home or self-care (01) ==
PROVIDERS: Referring Provider Emergency Medicine; Visit Provider Emergency Medicine
DX: Z23 Encounter for immunization (principal)
CPT/HCPCS: 90675

== ENCOUNTER 2024-01-09 09:11 | Outpatient (RCR) | payer OTHER, SELFPAY ==
[2023-12-26 13:40] LABS: Hemoglobin 12.6 g/dL (12.0-15.0); Mean Corp Hgb Conc 34.1 g/dL (32-36); Mean Corpuscular Hgb 28.9 pg (27.0-32.0); Mean Corpuscular Volume 84.9 fL (81-99); Mean Platelet Vol. 9.9 fl (6.2-12.0); Platelet Count 276 K/mm3 (150-450); RBC Distribution Width CV 14.4 % (11.6-14.6); RBC Distribution Width SD 44.4 fl (35.1-43.9); Red Blood Count 4.36 M/mm3 (4.2-5.4); White Blood Count 7.3 K/mm3 (4.4-11.0)
[2023-12-26 13:54] LABS: International Normalized Ratio 2.2; Prothrombin Time (Protime)PT. 24.2 SECONDS (11.7-14.9)
[2024-01-09 09:56] LABS: International Normalized Ratio 2.2; Prothrombin Time (Protime)PT. 24.6 SECONDS (11.7-14.9)
== END 2024-01-14 23:59 ==
LOC: POLAB3 09:11
DX: Z79.01 Long term (current) use of anticoagulants (principal)
CPT/HCPCS: 36415; 85027; 85610

== ENCOUNTER → 2024-01-30 | Outpatient (CLI) | payer OTHER, SELFPAY | END | disposition home or self-care (01) | LOC: LABSPEC 15:20 | PROVIDERS: Referring Provider Nurse Practitioner Family; Visit Provider Nurse Practitioner Family | DX: R30.0 Dysuria (principal) | CPT/HCPCS: 87086; 87088; 87186 ==

== ENCOUNTER 2024-01-31 12:29 | Outpatient (RCR) | payer OTHER, SELFPAY ==
[2024-01-23 09:22] LABS: International Normalized Ratio 2.6; Prothrombin Time (Protime)PT. 27.7 SECONDS (11.7-14.9)
[2024-01-31 13:11] LABS: Absolute Lymphocyte Count 2.25 X10^3/uL (0.83-4.51); Basophil# 0.05 X10^3/uL; Basophil% 0.6 % (0-1); Eosinophil# 0.59 X10^3/uL; Eosinophils% 6.7 % (0-5); Hematocrit 39.4 % (37-47); Hemoglobin 13.5 g/dL (12.0-15.0); Lymphocyte # 2.25 X10^3/ul (0.83-4.51); Lymphocyte % 25.7 % (19-41); Mean Corp Hgb Conc 34.3 g/dL (32-36); Mean Corpuscular Hgb 28.8 pg (27.0-32.0); Mean Corpuscular Volume 84.2 fL (81-99); Mean Platelet Vol. 9.5 fl (6.2-12.0); Monocyte# 0.83 X10^3/uL; Monocyte% 9.5 % (0-10); NRBC Flagged by Analyzer 0 % (0-5); Neutrophil # 5.02 X10^3/uL (2.7-7.7); Neutrophil % 57.2 % (47-70); Platelet Count 296 K/mm3 (150-450); RBC Distribution Width CV 14.3 % (11.6-14.6); RBC Distribution Width SD 43.8 fl (35.1-43.9); Red Blood Count 4.68 M/mm3 (4.2-5.4); White Blood Count 8.8 K/mm3 (4.4-11.0)
[2024-01-31 13:27] LABS: International Normalized Ratio 3.2; Prothrombin Time (Protime)PT. 32.7 SECONDS (11.7-14.9)
== END 2024-01-31 18:00 | disposition home or self-care (01) ==
LOC: LAB 12:29
DX: Z79.01 Long term (current) use of anticoagulants
CPT/HCPCS: 36415; 85025; 85610

== ENCOUNTER → 2024-02-21 | Outpatient (CLI) | payer OTHER, SELFPAY ==
[2024-02-21 17:29] LABS: Basophil# 0.06 X10^3/uL; Basophil% 0.8 % (0-1); Eosinophil# 0.35 X10^3/uL; Eosinophils% 4.4 % (0-5); Hematocrit 41.1 % (37-47); Hemoglobin 13.9 g/dL (12.0-15.0); Lymphocyte % 23.9 % (19-41); Mean Corp Hgb Conc 33.8 g/dL (32-36); Mean Corpuscular Hgb 28.9 pg (27.0-32.0); Mean Corpuscular Volume 85.4 fL (81-99); Mean Platelet Vol. 10.1 fl (6.2-12.0); Monocyte% 7.5 % (0-10); NRBC Flagged by Analyzer 0 % (0-5); Neutrophil # 5.03 X10^3/uL (2.7-7.7); Neutrophil % 63.3 % (47-70); Platelet Count 318 K/mm3 (150-450); RBC Distribution Width CV 14.4 % (11.6-14.6); RBC Distribution Width SD 45.1 fl (35.1-43.9); Red Blood Count 4.81 M/mm3 (4.2-5.4)
[2024-02-21 17:46] LABS: Vitamin D,25 Hydroxy 31.2 ng/mL
[2024-02-21 17:54] LABS: AST(SGOT) 25 U/L (15-37); Alanine Aminotransfer ALT/SGPT 30 U/L (13-56); Alkaline Phosphatase 150 U/L (45-117); Anion Gap 5 (5-15); BUN 17 mg/dL (7-18); BUN/Creat Ratio 19.5 RATIO (10-20); Calcium,Total 9.7 mg/dL (8.5-10.1); Chloride 105 mmol/L (98-107); Cholesterol 195 mg/dL (200); Creatinine, Serum 0.87 mg/dL (0.55-1.02); EST Glomerular Filtration Rate 71 mL/min (>60); Est Glom Filt Rate - Afr Amer 86 mL/min (>60); Globulin 3.9 g/dL (2.2-4.2); Glucose 94 mg/dL (74-106); High Density Lipoprotein 48 mg/dL; Protein, Total 7.9 g/dL (6.4-8.2); Sodium Level 140 mmol/L (136-145); Triglycerides 235 mg/dL; Very Low Density Lipoprotein 47 mg/dL (5-40)
== END | disposition home or self-care (01) ==
LOC: POLAB3 17:17
PROVIDERS: Visit Provider Family Medicine Geriatric Medicine
DX: E78.5 Hyperlipidemia, unspecified (principal); I10 Essential (primary) hypertension; Z13.89 Encounter for screening for other disorder
CPT/HCPCS: 80053; 80061; 82306; 84443; 85025

== ENCOUNTER 2024-03-02 11:38 | Outpatient (CLI) | payer OTHER, SELFPAY ==
[2024-03-02 11:47] LABS: Color, Urine Yellow (Yellow); Glucose, Dipstick Normal (Normal); Ketone-Dipstick Negative (Negative); Leukocyte Esterase-Dipstick 500 /ul (Negative); Nitrite-Dipstick Negative (Negative); Occult Blood-Urine 250 /ul (Negative); Protein-Dipstick 30 mg/dl (Negative); Specific Gravity, Urine 1.025 (1.002-1.030); Urine Bilirubin Dipstick Negative (Negative); Urine Clarity Cloudy (Clear); Urine Urobilinogen Normal (Normal)
[2024-03-02 11:56] LABS: White Blood Cells >100 SEEN /hpf (0-5)
[2024-03-02 11:57] LABS: Red Blood Cells-Urine 10-25 SEEN /hpf (0-5); Squamous Epithelial Cells - UA 10-25 SEEN /hpf (5-10)
[2024-03-02 11:58] LABS: Bacteria 2+ /hpf (None Seen); Mucous, Urine 2+ /hpf (<or=2+)
== END 2024-03-02 23:59 | disposition home or self-care (01) ==
LOC: POLAB3 11:38
PROVIDERS: Visit Provider Family Medicine Geriatric Medicine
DX: N39.0 Urinary tract infection, site not specified (principal)
CPT/HCPCS: 81001; 87086; 87088

== ENCOUNTER → 2024-03-05 | Outpatient (CLI) | payer OTHER, SELFPAY ==
[2024-03-05 10:19] LABS: International Normalized Ratio 2.5; Prothrombin Time (Protime)PT. 27.2 SECONDS (11.7-14.9)
== END | disposition home or self-care (01) ==
PROVIDERS: Referring Provider Specialist; Visit Provider Specialist
DX: Z79.01 Long term (current) use of anticoagulants (principal)
CPT/HCPCS: 85610

== ENCOUNTER → 2024-03-22 | Outpatient (CLI) | payer SELFPAY | END | disposition home or self-care (01) | PROVIDERS: Referring Provider Family Medicine Geriatric Medicine; Visit Provider Family Medicine Geriatric Medicine | DX: Z00.00 Encounter for general adult medical examination without abnormal findings (principal) | CPT/HCPCS: 76499 ==

== ENCOUNTER 2024-03-28 08:32 | Inpatient (IN) | payer OTHER, SELFPAY ==
[2024-03-28] VITALS (14 sets, daily range): BP systolic 127–147; BP diastolic 73–94; PULSE 65–92; RESP 14–20; TEMP 36.2–36.8; O2SAT 93–100; BMI 31.4; BMI 30.8
--- NOTE | 2024-03-28 08:55 | ED.VIS.GI ---
HPI HPI - GI History of Present Illness Chief Complaint: GI Bleed Narrative Narrative: 58-year-old female past medical history of previous duodenal ulcer bleeding about a year ago presents with nausea and vomiting as well as epigastric abdominal pain and nausea. She suspects that she is having another bleeding ulcer. She has past medical history of aortic valve replacement, mechanical, on Coumadin. She relates history that about a year ago she was diagnosed with a bleeding ulcer from H. pylori. On Tuesday, she noticed dark stool, almost black but had been eating a lot of dark berries/blueberries and blackberries and thought it may have been from that. Yesterday evening she developed nausea and vomiting and coffee-ground emesis. She also felt a little lightheaded. She denies any severe abdominal pain but states that she feels off, and somewhat lightheaded and nauseated. She denies any other bleeding diathesis. She is followed up with Dr. Payne regarding her duodenal ulcers. Past medical history also includes gastroparesis. [facility] Medical History Thoracic aortic aneurysm Nonrheumatic aortic (valve) insufficiency Bicuspid aortic valve Hyperlipidemia GERD (gastroesophageal reflux disease) History of malignant neoplasm of cervix Abnormal Pap smear of cervix Hypertension Home Medications ?Medication ?Instructions ?Recorded ?Last Taken ?Type warfarin 3 mg tablet 3 mg PO DAILY Man[facility] by [facility] 12/18/21 Unknown Rx tabs amlodipine 5 mg tablet 5 mg PO QDAY 01/28/24 Unknown History hydroxyzine HCl 25 mg tablet 25 mg PO QHS 01/28/24 Unknown History pantoprazole 40 mg tablet,delayed 40 mg PO BID 01/28/24 Unknown History release ondansetron 4 mg disintegrating 4 mg PO Q8H #30 tabs 03/02/24 Unknown Rx tablet Allergy/AdvReac Type Severity Reaction Status Date / Time No Known Allergies Allergy Verified 01/28/24 08:23 Family History Grandmother Heart disease Mother Heart disease Surgical History Status post aortic valve replacement (~05/28/09) History of thoracic aortic aneurysm repair (~05/28/09) History of aortic valve replacement with metallic valve (~05/28/09) delivery delivered S/P gastroplasty Hx of cholecystectomy femur surgery Mechanical heart valve present Hx of abdominal hysterectomy Social History Smoking Status: Never smoker alcohol intake: never substance use type: does not use caffeine: Yes what type of physical activity do you participate in: running and other details: crossfit frequency: 3-4 times per week seatbelt use: always do you feel safe at home: Yes additional social history: Claudia Ramirez Daily Patient works at [employer] ROS ROS ED ROS Narrative Constitutional: No fever, no chills. Cardiovascular: No chest pain. No palpitations. No pedal edema. Respiratory: No cough, no shortness of breath. Abdominal: Mild epigastric abdominal pain. Positive nausea, positive vomiting coffee-ground emesis. Reported black stool. Genitourinary: No dysuria. No hematuria. Musculoskeletal: No myalgias. No arthralgias. Neurologic: No headaches. No dizziness. Positive lightheadedness Skin: No rash. No change in color. EXAM Physical Exam Narrative Exam Narrative: Afebrile. Vital signs noted. Nontoxic-appearing. HEENT examination grossly unremarkable, airway patent. Cardiovascular examination reveals a regular rate and rhythm. Lungs clear to auscultation bilaterally. Abdomen soft minimal tenderness in epigastrium, no guarding or rebound. Positive bowel sounds. Neurological examination nonfocal, nonlateralizing, alert, oriented. No central cyanosis or pallor. Const Vital Signs: 03/28/24 08:33 03/28/24 08:35 Temperature 97.1 F L 97.1 F L Temperature Source Temporal Temporal Pulse Rate 75 75 Respiratory Rate 16 16 Blood Pressure 128/86 H 128/86 H Blood Pressure Mean 100 100 Pulse Ox 100 100 Oxygen Delivery Method Room Air Room Air MDM MDM MDM Narrative Medical decision making narrative: Differential diagnosis includes but not limited to gastroparesis versus Kathy-Colon tear versus duodenal ulcer bleeding. I discussed with the patient the necessity of placing NG tube. Comprehensive workup was pursued. I am more suspicious for upper GI bleeding given that she is on Coumadin as well. I reviewed her laboratory work and she has normal white count of 9.2, hemoglobin 13.5 with hematocrit 39.0, platelet count normal at 278. INR is elevated appropriately at 2.6 with her use of Coumadin. BUN 19, creatinine 0.90 suspicious for upper GI bleeding, glucose normal at 100. NG tube was placed by RN and return 300 mL of dark brown to black coffee-ground emesis, no bright red blood. After NG placement, patient did require Ativan 1 mg IV as well as morphine 4 mg IV. On my independent interpretation of the KUB status post NG tube placement, the tube is in the stomach. I reviewed the radiology report which confirms my independent interpretation. I discussed patient with a sandwich and drink cart operator, Dr. Payne, who requested that CT of the abdomen and pelvis with IV contrast only be obtained, and that I speak with the hospitalist for admission. I then spoke to Dr. Wheeler for admission to the PCU. As she has an aortic valve on Coumadin, I will not immediately reverse her INR. Disposition is admit in stable condition. History & Record Review Discussion w/independent historian: Patient Lab Data Attestation: I reviewed the patient's lab results. Labs: Laboratory Results - last 24 hr 03/28/24 03/28/24 08:45 08:49 WBC 9.2 RBC 4.51 Hgb 13.5 Hct 39.0 MCV 86.5 MCH 29.9 MCHC 34.6 RDW Std Deviation 45.1 H RDW Coeff of Peterson 14.3 Plt Count 278 MPV 9.7 Immature Gran % (Auto) 0.300 Neut % (Auto) 73.6 H Lymph % (Auto) 13.9 L Polk % (Auto) 7.1 Eos % (Auto) 4.7 Baso % (Auto) 0.4 Absolute Neuts (auto) 6.8 Absolute Lymphs (auto) 1.28 Nucleated RBC % 0 PT 28.5 H INR 2.6 Sodium 142 Potassium 3.8 Chloride 107 Carbon Dioxide 31.0 Anion Gap 4 L BUN 19 H Creatinine 0.90 Estim Creat Clear Calc 71.29 Est GFR (MDRD) Af Amer 83 Est GFR (MDRD) Non-Af 68 BUN/Creatinine Ratio 21.2 H Glucose 100 Calcium 9.4 Total Bilirubin 0.50 AST 30 ALT 35 Alkaline Phosphatase 168 H Total Protein 7.4 Albumin 3.6 Globulin 3.8 Albumin/Globulin Ratio 0.9 Lipase 34 L Radiography X-Ray: Read by ED Physician and Read by Radiologist Diagnostic Testing: Clinical Impression(s) from Imaging Studies KUB X-Ray 03/28/24 09:50 IMPRESSION: Enteric tube is in the stomach. Reading Location: [facility] Management Discussion w/another healthcare provider: Hospitalist (Dr. Wheeler) and Letter Of Credit Document Examiner (Dr. Payne) Discharge Plan Dx/Rx/DC Orders Clinical Impression: Acute upper GI bleeding, prison current use of anticoagulant, Anxiety Disposition Disposition: Acute Care Hospital [facility]
[2024-03-28 09:11] LABS: Absolute Lymphocyte Count 1.28 X10^3/uL (0.83-4.51); Absolute Neutrophil Count 6.8 X10^3/uL (2.0-7.7); Basophil# 0.04 X10^3/uL; Basophil% 0.4 % (0-1); Eosinophil# 0.43 X10^3/uL; Eosinophils% 4.7 % (0-5); Hemoglobin 13.5 g/dL (12.0-15.0); Lymphocyte # 1.28 X10^3/ul (0.83-4.51); Lymphocyte % 13.9 % (19-41); Mean Corp Hgb Conc 34.6 g/dL (32-36); Mean Corpuscular Hgb 29.9 pg (27.0-32.0); Mean Corpuscular Volume 86.5 fL (81-99); Mean Platelet Vol. 9.7 fl (6.2-12.0); Monocyte# 0.65 X10^3/uL; Monocyte% 7.1 % (0-10); NRBC Flagged by Analyzer 0 % (0-5); Neutrophil # 6.77 X10^3/uL (2.7-7.7); Neutrophil % 73.6 % (47-70); Platelet Count 278 K/mm3 (150-450); RBC Distribution Width CV 14.3 % (11.6-14.6); RBC Distribution Width SD 45.1 fl (35.1-43.9); Red Blood Count 4.51 M/mm3 (4.2-5.4); White Blood Count 9.2 K/mm3 (4.4-11.0)
[2024-03-28] MEDS: Ondansetron 4 MG/2 ML Vial IV (09:22)
[2024-03-28 09:34] LABS: International Normalized Ratio 2.6; Prothrombin Time (Protime)PT. 28.5 SECONDS (11.7-14.9)
[2024-03-28 09:37] LABS: ALB/GLOB Ratio 0.9 RATIO (0.9-2.4); AST(SGOT) 30 U/L (15-37); Alanine Aminotransfer ALT/SGPT 35 U/L (13-56); Albumin, Serum 3.6 g/dL (3.2-5.0); Alkaline Phosphatase 168 U/L (45-117); Anion Gap 4 (5-15); BUN 19 mg/dL (7-18); BUN/Creat Ratio 21.2 RATIO (10-20); Calcium,Total 9.4 mg/dL (8.5-10.1); Chloride 107 mmol/L (98-107); EST Glomerular Filtration Rate 68 mL/min (>60); Est Glom Filt Rate - Afr Amer 83 mL/min (>60); Estimated Creatinine Clearance 71.29 ml/min; Globulin 3.8 g/dL (2.2-4.2); Glucose 100 mg/dL (74-106); Lipase 34 U/L (73-393); Potassium 3.8 mmol/L (3.5-5.1); Protein, Total 7.4 g/dL (6.4-8.2); Sodium Level 142 mmol/L (136-145)
--- NOTE | 2024-03-28 09:50 | RAD_ITS ---
EXAM: XR Abdomen, 1 View CLINICAL INDICATION: TECHNIQUE: Frontal supine view of the abdomen/pelvis. COMPARISON: No relevant prior studies available. FINDINGS: GASTROINTESTINAL TRACT: Unremarkable. No dilation. BONES/JOINTS: Unremarkable. No acute fracture. TUBES, LINES AND DEVICES: Enteric tube is in the stomach. RAD/Abdomen Single View (Portable) IMPRESSION: Enteric tube is in the stomach. Reading [facility]
[2024-03-28] MEDS: Lorazepam 2 MG/ML WCH Syringe 1 MG IV (10:00)
--- NOTE | 2024-03-28 10:10 | CT_ITS ---
PROCEDURE: ABDOMEN/PELVIS W IV CONT ONLY REASON FOR EXAM: Coffee-ground emesis. TECHNIQUE: Abdomen and pelvis CT with intravenous contrast. No oral contrast. IV CONTRAST: 100 cc of Isovue-300. COMPARISON: Comparison is made with prior study dated February 03, 2020. FINDINGS: Orogastric tube is seen within the stomach. Lung bases: Mild degree of dependent atelectasis. Coronary artery calcification. Liver: Diffuse fatty infiltration. Gallbladder: Surgically absent. Spleen: Unremarkable. Pancreas: Unremarkable. Adrenals: Unremarkable. Kidneys: Unremarkable. Bladder: Unremarkable. Reproductive Organs: Prior hysterectomy. Adnexal regions are unremarkable. Bowel: Unremarkable. Appendix: Prior appendectomy. Lymph nodes: No suspicious lymph node enlargement. Vasculature: Major vascular structures are unremarkable. Peritoneum / Retroperitoneum: No ascites. No free air. Bones: Degenerative changes of the spine. Stable grade 1 anterior listhesis of L5 on S1. CT/Abdomen/Pelvis W IV Cont ONLY IMPRESSION: Orogastric tube is seen within the stomach. Fatty infiltration of the liver. Status post cholecystectomy. Prior hysterectomy and appendectomy. One or more dose reduction techniques were used (e.g., Automated exposure contr ol, adjustment of the mA and/or kV according to patient size, use of iterative reconstruction technique). Reading Location: [facility]-
[2024-03-28] MEDS: Morphine 4 MG/ML Syringe IV (10:24)
[2024-03-28 12:09] LABS: Hematocrit 40.4 % (37-47)
[2024-03-28] MEDS: Pantoprazole Sodium 80 MG in 0.9% Normal Saline (100mL Bag) 80 ML 10 MG CONT INF ×2 (12:12→23:33)
[2024-03-28] MEDS: 0.9% Normal Saline (1000mL) 1,000 ML 75 ML IV (12:12)
--- NOTE | 2024-03-28 15:17 | PCM.PRE.AN2 ---
ASA Classification* ASA Classification ASA Classification: 2 Assessment & Plan Anesthesia* Anesthesia Assessment Anesthesia Assessment: Discussed sedation and/or anesthesia options, risks, benefits, and alternatives with patient/parents/legal guardian/POA. Questions invited. The patient/parents/legal guardian/POA seems to understand and agrees to proceed with anesthesia plan. Reviewed the physical assessment, medical history, allergy history and patient home medications list prior to surgery/procedure/anesthetic and documented any changes. Performed airway and anesthesia risk assessments. Anesthesia Type Anesthesia Type: MAC Anesthesia Focused Assessment* Temperature: 98.2 F Pulse Rate: 67 Blood Pressure: 141/75 Respiratory Rate: 16 Pulse Ox: 95 Airway Assessment Mouth opens: >3 cm Mallampati Score: II Focused Labs Anesthesia Preop lab: CBC WBC 9.2 K/mm3 (4.4-11.0) 03/28/24 08:45 03/28/24 RBC 4.51 M/mm3 (4.2-5.4) 03/28/24 08:45 03/28/24 Hgb 14.0 g/dL (12.0-15.0) 03/28/24 11:50 03/28/24 Hct 40.4 % (37-47) 03/28/24 11:50 03/28/24 Plt Count 278 K/mm3 (150-450) 03/28/24 08:45 03/28/24 CHEMISTRY Potassium 3.8 mmol/L (3.5-5.1) 03/28/24 08:49 03/28/24 Sodium 142 mmol/L (136-145) 03/28/24 08:49 03/28/24 Magnesium 1.9 mg/dL (1.6-2.6) 09/13/19 08:27 09/13/19 Phosphorus 2.8 mg/dL (2.5-4.9) 09/13/19 08:27 09/13/19 BUN 19 mg/dL (7-18) H 03/28/24 08:49 03/28/24 Creatinine 0.90 mg/dL (0.55-1.02) 03/28/24 08:49 03/28/24 Glucose 100 mg/dL (74-106) 03/28/24 08:49 03/28/24 POC Glucose 82 mg/dL (70-110) 08/05/17 06:52 08/05/17 TSH 2.500 uIU/mL (0.358-3.740) 02/21/24 08:45 02/21/24 COAG PT 28.5 SECONDS (11.7-14.9) H 03/28/24 08:49 03/28/24 INR 4.6 H* 08/16/19 14:35 08/16/19 Pre-Assessment Diagnosis/Proposed Procedure Planned Operative Procedure(s): EGD Anesthesia History Anesthesia History - fruit coordinator: Anesthesia History - fruit coordinator Hx Hospitalization No 01/28/24 08:07 Any Problems With Anesthesia No 03/28/24 14:31 Cholinesterase deficiency No 03/28/24 14:31 You/Your Family Experience No 03/28/24 14:31 fever (hyperthermia) with Relationship Recent Exposure to Contagious No 03/28/24 14:31 Disease Does patient have nerve No 03/28/24 14:31 stimulator Patient instructed to have No 03/28/24 14:31 device shut off --Does patient have Pacemaker or ICD? When Was Last Pacemaker Check QUESTION #4 FULL TEXT: You/Your Family Experience fever (hyperthermia) with Anesthesia Last Oral Intake Last Oral intake: Last Oral Intake NPO since 00:00 03/28/24 14:31 Meds taken in AM with sips of No 03/28/24 14:31 water? Meds patient instructed to take am of surgery PONV PONV - fruit coordinator: PONV - fruit coordinator Female HX of Motion Sickness HX of N/V After Surgery Non-Smoker Duration of Surgery greater than 60 minutes Number of Risk Factors PONV Score Height & Weight Height & Weight: Anesthesia: Height & Weight Height 5 ft 4 in 03/28/24 14:31 Weight: 81.5 kg 03/28/24 14:31 Body Mass Index (BMI) 30.8 03/28/24 14:31 Respiratory Assessment Respiratory Assessment - fruit coordinator: Respiratory Tract Infection Hx - fruit coordinator Hx Respiratory Tract Infection No 03/28/24 14:31 STOP Sleep Apnea STOP Sleep Apnea - fruit coordinator: STOP Sleep Apnea - fruit coordinator Hx Hypertension Yes 03/28/24 12:39 Hx Sleep Apnea No 03/28/24 12:39 CPAP No 03/28/24 12:39 BIPAP No 03/28/24 12:39 Do you snore loudly (louder No 03/28/24 12:39 than talking or can be heard Do you often feel tired/ No 03/28/24 12:39 fatigued/ sleepy during daytime? Has anyone observed you stop No 03/28/24 12:39 breathing during sleep? STOP Results Negative 03/28/24 12:39 QUESTION #5 FULL TEXT : Do you snore loudly (louder than talking or can be heard through closed doors)? Tobacco Use History Tobacco Use History - fruit coordinator: Tobacco Use History - fruit coordinator Tobacco Use Non-smoker 01/28/24 08:07 Smoking Status Never smoker 03/28/24 12:39 Hx Tobacco Use No 03/28/24 12:39 Years Smoking Packs Smoked per Day Smoking Cessation Date was within the last 15 years Hx Smoking Cessation Date Hx Smoking Cessation Counseling Hematologic Medial History Hematologic Hx - fruit coordinator: Hematologic Medical Hx - training and documentation specialist Hx of Blood Transfusion Yes 03/28/24 12:39 Hx of Transfusion in last 3 No 03/28/24 12:39 Months Date of Last Transfusion (if within last 3 months) Ever experience any problems No 03/28/24 12:39 with transfusion(s)? Specify any problems Hx of Preganancy in last 3 No 03/28/24 12:39 Months Nurse Filling Out Transfusion JNORRIS 03/28/24 12:39 & Questions: Date: 03/28/24 03/28/24 12:39 Time: 12:45 03/28/24 12:39 Patient unable to answer at this time (ie. confused, unrespo /Reproduction History /Reproductive History - fruit coordinator: /Reproductive Hx- fruit coordinator Hx Now No 03/28/24 14:31 Gestational Age (in weeks): EDC: Hx Hx Para Hx Section SAB No 03/28/24 14:31 Active Medications Active Medications: Current Medications Generic Name Dose Route Start Last Admin Trade Name Freq PRN Reason Stop Dose Admin Sodium Chloride 1,000 mls @ 75 mls/hr 03/28/24 11:27 03/28/24 12:12 IV 03/29/24 14:06 75 mls/hr .[id number] PUJA Administration Protocol Pantoprazole Sodium 80 mg/ 100 mls @ 10 mls/hr 03/28/24 12:00 03/28/24 12:12 Sodium Chloride CONT INF 10 mls/hr Q10H PUJA Administration Lorazepam 1 mg 03/28/24 11:27 Lorazepam 2 Mg/Ml Syringe IV Q6H PRN PRN ANXIETY Ondansetron HCl 4 mg 03/28/24 11:27 Ondansetron 4 Mg/2 Ml Vial IV Q8H PRN PRN NAUSEA/VOMITING Sodium Chloride 10 - 40 ml 03/28/24 12:47 0.9% Saline Lock 10 Ml Syringe IV UD PRN SALINE FLUSH PFSH Medical History Thoracic aortic aneurysm Nonrheumatic aortic (valve) insufficiency Bicuspid aortic valve Hyperlipidemia GERD (gastroesophageal reflux disease) History of malignant neoplasm of cervix Abnormal Pap smear of cervix Hypertension Home Medications ?Medication ?Instructions ?Recorded ?Last Taken ?Type amlodipine 5 mg tablet 5 mg PO DAILY 01/28/24 03/28/24 History pantoprazole 40 mg tablet,delayed 40 mg PO BID 01/28/24 03/28/24 History release hydroxyzine HCl 10 mg tablet 10 mg PO QHS SLEEP 03/28/24 03/27/24 History warfarin 3 mg tablet 3 mg PO SUTUTHSA BLOOD THINNER 03/28/24 03/27/24 History warfarin 3 mg tablet (Jantoven) 4.5 mg PO MOWEFR BLOOD THINNER 03/28/24 03/28/24 History Allergy/AdvReac Type Severity Reaction Status Date / Time No Known Allergies Allergy Verified 01/28/24 08:23 Family History Grandmother Heart disease Mother Heart disease Surgical History Status post aortic valve replacement (~05/28/09) History of thoracic aortic aneurysm repair (~05/28/09) History of aortic valve replacement with metallic valve (~05/28/09) delivery delivered S/P gastroplasty Hx of cholecystectomy femur surgery Mechanical heart valve present Hx of abdominal hysterectomy Social History Smoking Status: Never smoker alcohol intake: never substance use type: does not use caffeine: Yes what type of physical activity do you participate in: running and other details: crossfit frequency: 3-4 times per week seatbelt use: always do you feel safe at home: Yes additional social history: Claudia Ramirez Daily Patient works at [employer] Lab Review of Systems (Anesthesia) ROS Narrative System reviewed and no additional complaints, except as documented.
--- NOTE | 2024-03-28 15:51 | EX.PCM.CON.G ---
HPI Consult Data Date of Consult: 03/28/24 HPI Narrative Reason for Consultation: GI bleeding HPI Narrative: JOÃO MUJICA, is a 58-year-old female past medical history of previous duodenal ulcer bleeding about a year ago presents with nausea and vomiting as well as epigastric abdominal pain and nausea. She suspects that she is having another bleeding ulcer. She has past medical history of aortic valve replacement, mechanical, on Coumadin. She relates history that about a year ago she was diagnosed with a bleeding ulcer from H. pylori. On Tuesday, she noticed dark stool, almost black but had been eating a lot of dark berries/blueberries and blackberries and thought it may have been from that. Yesterday evening she developed nausea and vomiting and coffee-ground emesis. She also felt a little lightheaded. She denies any severe abdominal pain but states that she feels off, and somewhat lightheaded and nauseated. She denies any other bleeding diathesis. [facility] Medical History Thoracic aortic aneurysm Nonrheumatic aortic (valve) insufficiency Bicuspid aortic valve Hyperlipidemia GERD (gastroesophageal reflux disease) History of malignant neoplasm of cervix Abnormal Pap smear of cervix Hypertension Home Medications ?Medication ?Instructions ?Recorded ?Last Taken ?Type amlodipine 5 mg tablet 5 mg PO DAILY 01/28/24 03/28/24 History pantoprazole 40 mg tablet,delayed 40 mg PO BID 01/28/24 03/28/24 History release hydroxyzine HCl 10 mg tablet 10 mg PO QHS SLEEP 03/28/24 03/27/24 History warfarin 3 mg tablet 3 mg PO SUTUTHSA BLOOD THINNER 03/28/24 03/27/24 History warfarin 3 mg tablet (Jantoven) 4.5 mg PO MOWEFR BLOOD THINNER 03/28/24 03/28/24 History Allergy/AdvReac Type Severity Reaction Status Date / Time No Known Allergies Allergy Verified 01/28/24 08:23 Family History Grandmother Heart disease Mother Heart disease Surgical History Status post aortic valve replacement (~05/28/09) History of thoracic aortic aneurysm repair (~05/28/09) History of aortic valve replacement with metallic valve (~05/28/09) delivery delivered S/P gastroplasty Hx of cholecystectomy femur surgery Mechanical heart valve present Hx of abdominal hysterectomy Social History Smoking Status: Never smoker alcohol intake: never substance use type: does not use caffeine: Yes what type of physical activity do you participate in: running and other details: crossfit frequency: 3-4 times per week seatbelt use: always do you feel safe at home: Yes additional social history: Claudia Ramirez Daily Patient works at [employer] Estimize ROS Constitutional Constitutional: Denies fatigue, fever(s), poor appetite, weight gain or weight loss Gastrointestinal Gastrointestinal: Denies belching, bloating, change in bowel habits, change in stool character, chewing difficulty, coffee ground emesis, constipation, cramping, diarrhea, dyspepsia, dysphagia, early satiety, excessive flatus, fecal incontinence, heartburn, hematemesis, hematochezia, hemorrhoids, loose stools, melena, nausea, odynophagia, rectal bleeding, tenesmus, vomiting or weight changes Physical Exam Const alert, oriented x3, no apparent distress and healthy appearing General Appearance: cooperative GI normal to inspection, nondistended, normoactive bowel sounds, soft to palpation, non-tender and non-distended Percussion: normal to percussion Rectal Exam: deferred Lab / Micro Data 03/28/24 11:50 03/28/24 08:49 Labs: Laboratory Results - last 24 hr 03/28/24 08:45: WBC 9.2, RBC 4.51, Hgb 13.5, Hct 39.0, MCV 86.5, MCH 29.9, MCHC 34.6, RDW Std Deviation 45.1 H, RDW Coeff of Peterson 14.3, Plt Count 278, MPV 9.7, Immature Gran % (Auto) 0.300, Neut % (Auto) 73.6 H, Lymph % (Auto) 13.9 L, Allen % (Auto) 7.1, Eos % (Auto) 4.7, Baso % (Auto) 0.4, Absolute Neuts (auto) 6.8, Absolute Lymphs (auto) 1.28, Nucleated RBC % 0 03/28/24 08:49: PT 28.5 H, INR 2.6, Sodium 142, Potassium 3.8, Chloride 107, Carbon Dioxide 31.0, Anion Gap 4 L, BUN 19 H, Creatinine 0.90, Estim Creat Clear Calc 71.29, Est GFR (MDRD) Af Amer 83, Est GFR (MDRD) Non-Af 68, BUN/Creatinine Ratio 21.2 H, Glucose 100, Calcium 9.4, Total Bilirubin 0.50, AST 30, ALT 35, Alkaline Phosphatase 168 H, Total Protein 7.4, Albumin 3.6, Globulin 3.8, Albumin/Globulin Ratio 0.9, Lipase 34 L 03/28/24 11:50: Hgb 14.0, Hct 40.4 Imaging Radiology Impression KUB X-Ray 03/28/24 09:50 IMPRESSION: Enteric tube is in the stomach. Reading Location: [facility] Abdomen/Pelvis CT 03/28/24 10:10 IMPRESSION: Orogastric tube is seen within the stomach. Fatty infiltration of the liver. Status post cholecystectomy. Prior hysterectomy and appendectomy. One or more dose reduction techniques were used (e.g., Automated exposure control, adjustment of the mA and/or kV according to patient size, use of iterative reconstruction technique). [facility] Assessment & Plan Assessment/Plan (1) Acute upper GI bleeding: PLAN: 58-year-old with past medical history of aortic valve replacement on Coumadin presents with multiple episodes of hematemesis followed by coffee-ground emesis. She had NG tube placed and it did reveal coffee-ground emesis. I was consulted for endoscopic treatment of upper GI bleed. She was explained alternatives, risk and benefits include not withstanding bleeding, infection, sepsis, perforation, need for emergent urgent . She will have an ASA of 3. Charges/Coding Visit Charges Inpatient E&M: 46258 Init Hosp L2
[2024-03-28 15:52] LABS: Hemoglobin 13.6 g/dL (12.0-15.0)
--- NOTE | 2024-03-28 16:41 | OP.EGD_ITS ---
Patient Name: Gardenia Mcfarland Procedure Date: 03/28/2024 3:52 PM Date of : 1965 Age: 58 Procedure: Upper GI endoscopy Indications: Epigastric abdominal pain, Coffee-ground emesis, Hematochezia Providers: Trung Payne DO Medicines: Monitored Anesthesia Care Patient Profile: This is a 58 year old female. Refer to note in patient chart for documentation of history and physical. Patient has symptoms of acute vomiting. Complications: No immediate complications. Procedure: Pre-Anesthesia Assessment: - Prior to the procedure, a History and Physical was performed, and patient medications and allergies were reviewed. The patient is competent. The risks and benefits of the procedure and the sedation options and risks were discussed with the patient. All questions were answered and informed consent was obtained. Patient identification and proposed procedure were verified by the physician in the pre-procedure area. Mental Status Examination: alert and oriented. Airway Examination: normal oropharyngeal airway and neck mobility. Respiratory Examination: clear to auscultation. CV Examination: normal. Prophylactic Antibiotics: The patient does not require prophylactic antibiotics. Prior Anticoagulants: The patient has taken no anticoagulant or antiplatelet agents except for NSAID medication. ASA Grade Assessment: II - A patient with mild systemic disease. After reviewing the risks and benefits, the patient was deemed in satisfactory condition to undergo the procedure. The anesthesia plan was to use monitored anesthesia care (MAC). Immediately prior to administration of medications, the patient was re-assessed for adequacy to receive sedatives. The heart rate, respiratory rate, oxygen saturations, blood pressure, adequacy of pulmonary ventilation, and response to care were monitored throughout the procedure. The physical status of the patient was re-assessed after the procedure. After obtaining informed consent, the endoscope was passed under direct vision. Throughout the procedure, the patient's blood pressure, pulse, and oxygen saturations were monitored continuously. The Endoscope was introduced through the mouth, and advanced to the fourth part of the duodenum. Small bowel enteroscopy was deemed necessary. The upper GI endoscopy was accomplished without difficulty. The patient tolerated the procedure well. Scope In: 4:15:36 PM Scope Out: 4:29:32 PM Total Procedure Duration Time 0 hours 13 minutes 56 seconds Findings: The examined esophagus was normal. One non-obstructing oozing cratered gastric ulcer of moderate to significant severity with a visible vessel was found on the lesser curvature of the stomach. The lesion was 20 mm in largest dimension. There is no evidence of perforation. Coagulation for hemostasis using heater probe was successful. For hemostasis, one hemostatic clip was successfully placed. Clip manager federal: [email or web address]. There was no bleeding at the end of the procedure. Estimated blood loss was minimal. Evidence of a stenosed vertical banded gastroplasty was found. A gastric pouch 8 cm wide with a large size was found containing blood and ulceration. The staple line appeared intact. Evidence of a Silastic band was not seen and appeared intact. This was traversed. Two oozing linear gastric ulcers with pigmented material were found in the gastric body. The largest lesion was 6 mm in largest dimension. Coagulation for hemostasis using heater probe was successful. Estimated blood loss was minimal. The fourth portion of the duodenum was normal. Impression: - Normal esophagus. - Non-obstructing oozing gastric ulcer with a visible vessel. There is no evidence of perforation. Treated with a heater probe. Clip was placed. Clip manager federal: [email or web address]. - Stenosed vertical banded gastroplasty with a large-sized pouch and intact staple line and band appears intact. - Oozing gastric ulcers with pigmented material. Treated with a heater probe. - Normal fourth portion of the duodenum. - No specimens collected. Recommendation: - Return patient to hospital younger for ongoing care. - Clear liquid diet today. - Continue present medications. - Give Protonix (pantoprazole): initiate therapy with 80 mg IV bolus, then 8 mg/hr IV by continuous infusion. Procedure Code(s): --- Professional --- 72977, Small intestinal endoscopy, enteroscopy beyond second portion of duodenum, not including ileum; with control of bleeding (eg, injection, bipolar cautery, unipolar cautery, laser, heater probe, stapler, plasma automatic developer) CPT copyright 2021 [employer]. All rights reserved. The codes documented in this report are preliminary and upon wind energy engineer review may be revised to meet current compliance requirements. Trung Payne DO 03/28/2024 4:41:24 PM This report has been signed electronically. Number of Addenda: 0 Note Initiated On: 03/28/2024 3:52 PM
--- NOTE | 2024-03-28 16:41 | PCM.POST.ANE ---
Anesthesia: Postop Eval I Current Vital Signs Temperature: 98.2 F Pulse Rate: 92 Blood Pressure: 127/73 Respiratory Rate: 20 Pulse Ox: 93 Oxygen Delivery Method: Nasal Cannula Oxygen Flow Rate (L/min): 4 Assessment Airway patent: Yes Spontaneous unlabored respirations: Yes Mental status: Awake nausea: No Vomiting: No Anesthesia Complication: No Fluid Hydration Crystalloid volume administer (ml): 50 Total IV fluid infused: 50 Progress Note Anesthesia document: Postop Eval 1 completed: Yes
--- NOTE | 2024-03-28 16:42 | OP.CCLET_ITS ---
03/28/2024 Marcel Moya MD [address] [place] [address] Re : Upper GI endoscopy procedure for Gardenia Bartolo Dear Dr. Moya This procedure was performed on Thursday, March 28, 2024. My impressions and recommendations are as follows: Impressions : - Normal esophagus. - Non-obstructing oozing gastric ulcer with a visible vessel. There is no evidence of perforation. Treated with a heater probe. Clip was placed. Clip tetryl boiling tub operator: [email or web address]. - Stenosed vertical banded gastroplasty with a large-sized pouch and intact staple line and band appears intact. - Oozing gastric ulcers with pigmented material. Treated with a heater probe. - Normal fourth portion of the duodenum. - No specimens collected. Recommendations : - Return patient to hospital younger for ongoing care. - Clear liquid diet today. - Continue present medications. - Give Protonix (pantoprazole): initiate therapy with 80 mg IV bolus, then 8 mg/hr IV by continuous infusion. My findings are described in the full procedure note, which is enclosed. If I can be of further assistance, please feel free to contact me at . Sincerely, Trung Payne, 03/28/2024 4:41:24 PM This report has been signed electronically.
--- NOTE | 2024-03-28 16:42 | POSTOPAN2_ITS ---
Anesthesia Postop Eval I Sum Postop Eval Completion status Anesthesia document: Postop Eval 1 completed: Yes Anesthesia Postop Eval I Summary Anesthesia Postop Eval I Summary: Anesthesia Postop Eval I: Assessment Summary Airway patent Yes 03/28/24 16:42 HEALTHCARE FACILITY [email or web address] Spontaneous unlabored Yes 03/28/24 16:42 HEALTHCARE FACILITY [email or web address] respirations Mental status Awake 03/28/24 16:42 HEALTHCARE FACILITY [email or web address] nausea No 03/28/24 16:42 HEALTHCARE FACILITY [email or web address] Vomiting No 03/28/24 16:42 HEALTHCARE FACILITY [email or web address] Anesthesia Postop Eval I: Fluid Summary Crystalloid volume administer 50 03/28/24 16:42 HEALTHCARE FACILITY [email or web address] (ml) Colloids volume administered ( ml) Blood Product volume administered (ml) Total IV fluid infused 50 03/28/24 16:42 HEALTHCARE FACILITY [email or web address] Anesthesia Postop Eval I: Summary Notes Anesthesia Complication No 03/28/24 16:42 HEALTHCARE FACILITY [email or web address] Anesthesia Complication Comment: Post-operative progress note Anesthesia: Postop Eval II Evaluation Mental status: Awake and Calm Pain Level: 0 nausea: No Vomiting: No Complications Anesthesia Complication: No
--- NOTE | 2024-03-28 16:42 | PCM.POSTANE2 ---
Anesthesia Postop Eval I Sum Postop Eval Completion status Anesthesia document: Postop Eval 1 completed: Yes Anesthesia Postop Eval I Summary Anesthesia Postop Eval I Summary: Anesthesia Postop Eval I: Assessment Summary Airway patent Yes 03/28/24 16:42 METAL BED [email or web address] Spontaneous unlabored Yes 03/28/24 16:42 METAL BED [email or web address] respirations Mental status Awake 03/28/24 16:42 METAL BED [email or web address] nausea No 03/28/24 16:42 METAL BED [email or web address] Vomiting No 03/28/24 16:42 METAL BED [email or web address] Anesthesia Postop Eval I: Fluid Summary Crystalloid volume administer 50 03/28/24 16:42 METAL BED [email or web address] (ml) Colloids volume administered ( ml) Blood Product volume administered (ml) Total IV fluid infused 50 03/28/24 16:42 METAL BED [email or web address] Anesthesia Postop Eval I: Summary Notes Anesthesia Complication No 03/28/24 16:42 METAL BED [email or web address] Anesthesia Complication Comment: Post-operative progress note Anesthesia: Postop Eval II Evaluation Mental status: Awake and Calm Pain Level: 0 nausea: No Vomiting: No Complications Anesthesia Complication: No
--- NOTE | 2024-03-28 17:11 | PCM.PN.BLA ---
Progress Note Follow-up in office: [7 days] Okay to restart [Coumadin] on [03/31/2024] New GI related medications for discharge: [Protonix 40 mg p.o. twice daily x 8 weeks in Carafate 1 g p.o. 3 times daily x 4 weeks] Follow-up procedures needed: [2 weeks] Visit Charges Inpatient E&M: 48045 Subs Hosp L2
--- NOTE | 2024-03-28 19:30 | PCM.HP.STD ---
HPI - General General Date of Admission: 03/28/24 Date of Service: 03/28/24 Chief Complaint: Coffee-ground emesis, abdominal pain, lightheadedness HPI Narrative JOÃO MUJICA, is a 58 F who presents to the emergency room at [facility] with complaints of vomiting coffee-ground emesis, abdominal pain, and lightheadedness which started 2 days ago. Patient has a history of peptic ulcer disease in the past and had a gastroplasty in the past. Patient has a history of an artificial mechanical aortic valve and takes Coumadin chronically. He gets most of her care at the [facility] and is disabled from the [place] due to PTSD. Lab obtained in the emergency room showed her hemoglobin to be 14, chemistry profile was unremarkable, alkaline phosphatase was slightly elevated at 168. INR was 2.6. An NG tube was inserted with return of coffee-ground material. I talked with gastroenterology and patient will be admitted and have an EGD performed today. [facility] Medical History Thoracic aortic aneurysm Nonrheumatic aortic (valve) insufficiency Bicuspid aortic valve Hyperlipidemia GERD (gastroesophageal reflux disease) History of malignant neoplasm of cervix Abnormal Pap smear of cervix Hypertension Home Medications ?Medication ?Instructions ?Recorded ?Last Taken ?Type amlodipine 5 mg tablet 5 mg PO DAILY 01/28/24 03/28/24 History pantoprazole 40 mg tablet,delayed 40 mg PO BID 01/28/24 03/28/24 History release hydroxyzine HCl 10 mg tablet 10 mg PO QHS SLEEP 03/28/24 03/27/24 History warfarin 3 mg tablet 3 mg PO SUTUTHSA BLOOD THINNER 03/28/24 03/27/24 History warfarin 3 mg tablet (Jantoven) 4.5 mg PO MOWEFR BLOOD THINNER 03/28/24 03/28/24 History Allergy/AdvReac Type Severity Reaction Status Date / Time No Known Allergies Allergy Verified 01/28/24 08:23 Family History Grandmother Heart disease Mother Heart disease Surgical History Status post aortic valve replacement (~05/28/09) History of thoracic aortic aneurysm repair (~05/28/09) History of aortic valve replacement with metallic valve (~05/28/09) delivery delivered S/P gastroplasty Hx of cholecystectomy femur surgery Mechanical heart valve present Hx of abdominal hysterectomy Social History Smoking Status: Never smoker alcohol intake: never substance use type: does not use caffeine: Yes what type of physical activity do you participate in: running and other details: crossfit frequency: 3-4 times per week seatbelt use: always do you feel safe at home: Yes additional social history: Claudia aRmirez Daily Patient works at [employer] Constitutional Constitutional: Denies anorexia, change in weight, chills, fatigue, fever(s), night sweats or weakness Eyes Eyes: Denies blurry vision, change in vision, discharge from eye(s) or eye pain Cardiovascular Cardiovascular: Denies chest pain, claudication, edema or palpitations Respiratory/Chest Respiratory/Chest: Denies cough, excessive phlegm production, hemoptysis, shortness of breath at rest or shortness of breath with exertion Gastrointestinal Gastrointestinal: Reports abdominal pain, coffee ground emesis and vomiting; Denies constipation, diarrhea, hematemesis, hematochezia, melena or nausea Genitourinary Genitourinary: Denies dysuria, hematuria, urinary frequency, urinary hesitancy, urinary incontinence or urinary urgency Musculoskeletal Musculoskeletal: Denies back pain, joint pain, joint stiffness, joint swelling, myalgias or neck pain Neurologic Neurologic: Denies abnormal gait, abnormal speech, dizziness, focal weakness, headache(s), loss of vision, numbness, other visual disturbances, paresthesias, syncope or tingling Psychiatric Psychiatric: Denies anxiety, cognitive impairment, depression, irritability, mood swings or suicidal ideation Endocrine Endocrinology: Denies change in body appearance, cold intolerance, excessive sweating, heat intolerance, polydipsia or polyuria Hematologic/Lymphatic Hematologic/Lymphatic: Denies none, anemia, easy bleeding, easy bruising or lymphadenopathy Allergic/Immunologic Allergic/Immunologic: Denies rhinitis, urticaria, eczemia or asthma Vital Signs Vital Signs Vital Signs: 03/28/24 08:33 03/28/24 08:35 03/28/24 10:49 Temperature 97.1 F L 97.1 F L 97.1 F L Temperature Source Temporal Temporal Pulse Rate 75 75 75 Respiratory Rate 16 16 16 Respiratory Effort Respiratory Depth Respiratory Pattern Blood Pressure 128/86 H 128/86 H 128/86 H Blood Pressure Mean 100 100 100 Blood Pressure Source Blood Pressure Position Blood Pressure Location Baseline BP Pulse Ox 100 100 100 Oxygen Delivery Method Room Air Room Air Oxygen Flow Rate (L/min) 03/28/24 12:41 03/28/24 13:48 03/28/24 14:31 Temperature 98.1 F 98.2 F Temperature Source Oral Oral Pulse Rate 65 67 Respiratory Rate 18 16 Respiratory Effort Normal Non-Labored Respiratory Depth Normal Respiratory Pattern Normal Blood Pressure 135/73 H 141/75 H Blood Pressure Mean 93 97 Blood Pressure Source Monitor Monitor Blood Pressure Position Semi-Fowlers Semi-Fowlers Blood Pressure Location Left Arm Left Arm Baseline BP Pulse Ox 97 95 Oxygen Delivery Method Room Air Room Air Room Air Oxygen Flow Rate (L/min) 03/28/24 15:18 03/28/24 16:38 03/28/24 16:40 Temperature 98.2 F 98.2 F Temperature Source Temporal Pulse Rate 67 84 83 Respiratory Rate 16 16 16 Respiratory Effort Respiratory Depth Respiratory Pattern Normal Blood Pressure 141/75 H 127/73 H 129/75 H Blood Pressure Mean 91 93 Blood Pressure Source Monitor Monitor Blood Pressure Position Semi-Fowlers Semi-Fowlers Blood Pressure Location Left Arm Left Forearm Baseline BP 141/75 141/75 Pulse Ox 95 93 93 Oxygen Delivery Method Room Air Room Air Oxygen Flow Rate (L/min) 03/28/24 16:42 03/28/24 16:45 03/28/24 16:50 Temperature 98.2 F Temperature Source Pulse Rate 92 83 74 Respiratory Rate 20 H 16 16 Respiratory Effort Respiratory Depth Respiratory Pattern Blood Pressure 127/73 H 132/94 H 136/90 H Blood Pressure Mean 106 105 Blood Pressure Source Monitor Monitor Blood Pressure Position Semi-Fowlers Semi-Fowlers Blood Pressure Location Left Forearm Left Forearm Baseline BP 141/75 141/75 Pulse Ox 93 93 93 Oxygen Delivery Method Nasal Cannula Room Air Room Air Oxygen Flow Rate (L/min) 4 03/28/24 16:57 03/28/24 17:26 03/28/24 17:36 Temperature 97.5 F L 98.2 F Temperature Source Temporal Oral Pulse Rate 71 70 Respiratory Rate 18 16 Respiratory Effort Normal Non-Labored Respiratory Depth Normal Respiratory Pattern Normal Blood Pressure 131/85 H 134/76 H Blood Pressure Mean 100 95 Blood Pressure Source Monitor Monitor Blood Pressure Position Semi-Fowlers Semi-Fowlers Blood Pressure Location Left Forearm Left Arm Baseline BP 141/75 Pulse Ox 93 96 Oxygen Delivery Method Room Air Room Air Room Air Oxygen Flow Rate (L/min) Weight Weight: 81.5 kg Body Mass Index (BMI) 30.8 Physical Exam Const alert, oriented x3, no apparent distress, average body habitus and healthy appearing General Appearance: cooperative, well kempt and well developed Orientation / Consciousness: awake, oriented to person, oriented to place and oriented to time HEENT normocephalic, head/scalp atraumatic, hearing grossly normal bilaterally and moist oral mucous membranes Eyes PERRL, EOMs intact bilaterally and conjunctivae normal Neck supple, no JVD, thyroid normal and no carotid bruits General: trachea midline Resp normal respiratory effort, no retractions, no use of accessory muscles and clear to auscultation bilaterally Auscultation: Negative for rales, rhonchi or wheezes Cardio regular rate, regular rhythm, S1 normal heart sound, S2 normal heart sound, no murmurs, no rub and no gallops Cardio Narrative: There is a mechanical click noted over the patient's apex and left sternal border auscultation GI normal to inspection, nondistended, normoactive bowel sounds, soft to palpation and non-distended GI Narrative: NG tube in place with coffee-ground material Extremity no clubbing, cyanosis or edema Skin no rashes or lesions noted General Skin Exam: no breakdown Neuro oriented x3, CN's II-XII intact bilaterally, moves all extremities, no focal motor deficits and no sensory deficits noted Sensorium / Orientation: awake and alert Speech: speech normal Psych affect normal Results Lab / Micro Data 03/28/24 15:45 03/28/24 08:49 Labs: Laboratory Results - last 24 hr 03/28/24 08:45: WBC 9.2, RBC 4.51, Hgb 13.5, Hct 39.0, MCV 86.5, MCH 29.9, MCHC 34.6, RDW Std Deviation 45.1 H, RDW Coeff of Petesron 14.3, Plt Count 278, MPV 9.7, Immature Gran % (Auto) 0.300, Neut % (Auto) 73.6 H, Lymph % (Auto) 13.9 L, [place] % (Auto) 7.1, Eos % (Auto) 4.7, Baso % (Auto) 0.4, Absolute Neuts (auto) 6.8, Absolute Lymphs (auto) 1.28, Nucleated RBC % 0 03/28/24 08:49: PT 28.5 H, INR 2.6, Sodium 142, Potassium 3.8, Chloride 107, Carbon Dioxide 31.0, Anion Gap 4 L, BUN 19 H, Creatinine 0.90, Estim Creat Clear Calc 71.29, Est GFR (MDRD) Af Amer 83, Est GFR (MDRD) Non-Af 68, BUN/Creatinine Ratio 21.2 H, Glucose 100, Calcium 9.4, Total Bilirubin 0.50, AST 30, ALT 35, Alkaline Phosphatase 168 H, Total Protein 7.4, Albumin 3.6, Globulin 3.8, Albumin/Globulin Ratio 0.9, Lipase 34 L 03/28/24 11:50: Hgb 14.0, Hct 40.4 03/28/24 15:45: Hgb 13.6, Hct 39.0 Imaging Radiology Impression KUB X-Ray 03/28/24 09:50 IMPRESSION: Enteric tube is in the stomach. Reading Location: [facility] Abdomen/Pelvis CT 03/28/24 10:10 IMPRESSION: Orogastric tube is seen within the stomach. Fatty infiltration of the liver. Status post cholecystectomy. Prior hysterectomy and appendectomy. One or more dose reduction techniques were used (e.g., Automated exposure control, adjustment of the mA and/or kV according to patient size, use of iterative reconstruction technique). Reading Location: [facility] Assessment & Plan Assessment/Plan (1) Acute upper GI bleeding: PLAN: Plan 1. Acute upper GI bleed-patient will be admitted to PCU, NG tube will stay in place for now, gastroenterology will perform an EGD today and her NG tube will be removed. Patient's Coumadin will be held, patient was placed on a Protonix drip #2 mechanical aortic valve-patient will need to remain off Coumadin for now, depending on the results of the EGD she may have to be off Coumadin for a few days. #3 PTSD-patient will be given Ativan as needed for anxiety #4 essential hypertension-patient's blood pressure medication will be held for now-it may be resumed after EGD. Total clinical time spent by myself addressing patient's medical issues, reviewing all of her data, and collaborating with patient's care team: 75 minutes Charges/Coding Visit Charges Inpatient E&M: 62029 Init Hosp L3
[2024-03-28 19:40] LABS: Hematocrit 37.9 % (37-47)
[2024-03-28] MEDS: hydrOXYzine 10 MG Tablet PO (21:25)
[2024-03-28 23:06] LABS: Hematocrit 36.7 % (37-47); Hemoglobin 12.7 g/dL (12.0-15.0)
[2024-03-28] MEDS: 0.9% Saline Lock 10 ML Syringe IV (23:33)
[2024-03-29 04:15] VITALS: BP 142/83; PULSE 74; RESP 14; TEMP 36.8; O2SAT 95
[2024-03-29 07:31] LABS: International Normalized Ratio 2.7; Prothrombin Time (Protime)PT. 29.6 SECONDS (11.7-14.9)
[2024-03-29 10:21] VITALS: BP 130/72; PULSE 76; RESP 16; TEMP 36.9; O2SAT 96
[2024-03-29] MEDS: amLODIPine 5 MG Tablet PO (10:23)
[2024-03-29] MEDS: Pantoprazole Sodium 80 MG in 0.9% Normal Saline (100mL Bag) 80 ML 10 MG CONT INF (10:31)
[2024-03-29] MEDS: 0.9% Normal Saline (1000mL) 1,000 ML 75 ML IV (11:30)
[2024-03-29 15:00] VITALS: BP 128/68; PULSE 83; RESP 18; TEMP 36.8; O2SAT 100
--- NOTE | 2024-03-29 15:01 | PCM.DC ---
Discharge Instructions Diet Discharge Diet: No restrictions DC O2, CPAP, BIPAP needs Home O2 Discharge instructions: No Dressing / Incision Discharge Activity: Return to Normal Activity Weight Bearing Status: Full weight bearing Follow Up Care Test Results: Test results from this visit will be discussed in further detail at your follow-up appointment, if applicable. Discharge Plan Admission Admit Date/Time: 03/28/24 10:37 Primary Reason for Your Visit: UPPER GI BLEED Attending Provider: Mejia Wheeler Primary Care Provider: Marcel Moya Chi Instructions Additional Instructions / Restrictions: Resume your warfarin on 03/31/2024, get your INR rechecked on 04/02/2024 Get your gastric emptying study performed as scheduled Discharge Orders/Prescriptions Prescriptions: Continued pantoprazole 40 mg tablet,delayed release (DR/EC) 40 mg PO BID amlodipine 5 mg tablet 5 mg PO DAILY hydroxyzine HCl 10 mg tablet 10 mg PO QHS warfarin [Jantoven] 3 mg tablet 4.5 mg PO MOWEFR Rx Instructions: 3MG- SUN, TUES, THUR, SAT 4.5MG- TUE, TUE, TUE warfarin 3 mg tablet 3 mg PO SUTUTHSA Rx Instructions: 3MG- SUN, TUES, THUR, SAT 4.5MG- TUE, TUE, TUE Referrals / Follow Up: Trung Payne DO [Med Staff - Active Staff] - See Referral Note (As scheduled) Marcel Moay Chi, MD [Primary Care Provider] - [facility] [STAFF PHYSICIAN] - Disposition Disposition (needs filled in before D/C Order can be placed): Home, Self Care
[2024-03-29 15:07] VITALS: BP 128/68; PULSE 83; RESP 18; TEMP 36.8; O2SAT 100
--- NOTE | 2024-03-29 15:08 | DS.PCM_ITS ---
Providers Date of Admission: 03/28/24 Date of Discharge: 03/29/24 Primary Care Physician: Dr. Marcel Moya MD Consultations 03/28/24 11:27 Consult: Gastroenterology Routine Consulting Provider: [facility] Reason for Consult: upper GI bleed EMERGENT Consult: No MD Notified: Yes Date Notified: 03/28/24 Time Notified: 10:41 Method of Notification: Verbal Reason For Visit: GI BLEED Diagnosis Discharge Diagnosis (1) Acute upper GI bleeding: Status: Acute Code(s): K92.2 - Gastrointestinal hemorrhage, unspecified Plan 1. Acute upper GI bleed secondary to gastric ulcer hemorrhage with chronic use of anticoagulants exacerbating bleed- #2 mechanical aortic valve-patient will need to remain off Coumadin for now, depending on the results of the EGD she may have to be off Coumadin for a few days. #3 PTSD-patient will be given Ativan as needed for anxiety #4 essential hypertension-patient's blood pressure medication will be held for now-it may be resumed after EGD. #5 chronic anticoagulant usage due to mechanical heart valve Total clinical time spent by myself addressing patient's medical issues, reviewing all of her data, and collaborating with patient's care team: 75 minutes Medications at Discharge Home Medications amlodipine 5 mg tablet 5 mg PO DAILY blood pressure 01/28/24 pantoprazole 40 mg tablet,delayed release 40 mg PO BID reflux 01/28/24 hydroxyzine HCl 10 mg tablet 10 mg PO QHS SLEEP 03/28/24 warfarin 3 mg tablet 3 mg PO SUTUTHSA BLOOD THINNER 03/28/24 warfarin 3 mg tablet (Jantoven) 4.5 mg PO MOWEFR BLOOD THINNER 03/28/24 Hospital Course Operations None Procedures EGD Summary of Care Provided Minutes Spent on Discharge: 31 Hospital Course: This 58-year-old white female was seen in the emergency room at [facility] after she had vomiting at home with coffee-ground emesis. Patient is a chronic user of anticoagulants due to mechanical heart valve. Lab obtained in the emergency room showed her hemoglobin to be 14, chemistry profile was unremarkable, INR was 2.6. NG tube was inserted which returned coffee- ground material. Patient was admitted to PCU and placed on a Protonix drip, she underwent an EGD later that day which showed gastric ulcers 1 with a visible vessel. NG tube was removed and patient did not have any further bleeding issues during her hospitalization. On 03/29/2024, patient was seen and examined: On examination she appeared in good health and spirits, she does not appear to be in any distress. Vital signs as documented. Skin warm and dry and without overt rashes. Neck without JVD, thyroid appears normal, trachea is midline, neck is supple. Lungs clear, normal air movement was noted. Heart exam notable for regular rhythm, normal sounds and absence of murmurs, rubs or gallops. Abdomen unremarkable and without evidence of organomegaly, masses, or abdominal aortic enlargement, bowel sounds are present in all 4 quadrants, no abdominal tenderness was noted. Extremities nonedematous, no cyanosis was noted, no clubbing was noted. Neuro: Cranial nerves II through XII are grossly intact, no focal motor deficits were noted, sensation to light touch and pinprick is intact, motor exam 5/5 throughout. Psych: Patient is alert and oriented x3, she does not appear anxious or depressed, she does not appear agitated. On 03/29/2024, patient was seen and examined and felt to be stable for discharge home. Weight / BMI Weight Weight: 81.5 kg Body Mass Index (BMI) 30.8 ABG / Lab / Microbiology Data 03/28/24 22:56 03/28/24 08:49 Laboratory: Laboratory Results - last 24 hr 03/28/24 15:45: Hgb 13.6, Hct 39.0 03/28/24 19:31: Hgb 13.0, Hct 37.9 03/28/24 22:56: Hgb 12.7, Hct 36.7 L 03/29/24 06:41: PT 29.6 H, INR 2.7 D/C Instructions Discharge Diet: No restrictions Weight Bearing Status: Full weight bearing DC O2, CPAP, BIPAP Needs Home O2 Discharge instructions: No Meaningful Use Info Meaningful Use Meaningful Use Diagnoses (Choose all that apply): None applicable Ischemic Stroke Statin Dosing Therapy Reference: STATIN DOSE THERAPY REFERENCE: * Patients > 75 years receive moderate or high dose statin therapy. * Patients 75 years or YOUNGER should receive HIGH intensity statin dose unless contraindicated. You will be required to document reason for non-treatment if statin daily dose does not meet guidelines. HIGH DOSE STATIN THERAPY DAILY Atorvastatin > than or = to 40 mg Rosuvastatin > than or = to 20 mg Amlodipine + Atorvastatin > than or = to 2.5/40 mg Ezetimibe + Simvastatin 10/80 mg Simvastatin 80mg Discharge Plan Admission Admit Date/Time: 03/28/24 10:37 Primary Reason for Your Visit: UPPER GI BLEED Attending Provider: Mejia Wheeler Primary Care Provider: Marcel Moya Chi Instructions Additional Instructions / Restrictions: Resume your warfarin on 03/31/2024, get your INR rechecked on 04/02/2024 Get your gastric emptying study performed as scheduled Discharge Orders/Prescriptions Prescriptions: Continued pantoprazole 40 mg tablet,delayed release (DR/EC) 40 mg PO BID amlodipine 5 mg tablet 5 mg PO DAILY hydroxyzine HCl 10 mg tablet 10 mg PO QHS warfarin [Jantoven] 3 mg tablet 4.5 mg PO MOWEFR Rx Instructions: 3MG- SUN, TUES, THUR, SAT 4.5MG- TUE, TUE, TUE warfarin 3 mg tablet 3 mg PO SUTUTHSA Rx Instructions: 3MG- SUN, TUES, THUR, SAT 4.5MG- TUE, TUE, TUE Referrals / Follow Up: Trung Payne DO [Med Staff - Active Staff] - See Referral Note (As scheduled) Marcel Moya Chi, MD [Primary Care Provider] - [place] [STAFF PHYSICIAN] - Disposition Disposition (needs filled in before D/C Order can be placed): Home, Self Care Charges/Coding Visit Charges Inpatient E&M: 39852 Disch Hosp >30min
--- NOTE | 2024-03-29 16:15 | CASEMGMT ---
RN CM Face to Face with patient for initial transition planning/care coordination assessment. RN CM introduced self and role at [facility]. Patient lying in bed, alert and oriented. Patient willing to participate in assessment and is able to answer all questions appropriately. Care providers, pharmacy, and demographics verified. PCP:Dang Cifuentes Specialists: EARL Payne Preferred Pharmacy: [facility] Retail [place]: [place], [facility] [employer] Prescription Benefit: yes Living Will/HPOA: yes, hannah Solis LNOK: sons Living Arrangements: Patient lives alone in a single story home with 3 steps and railing. Transportation: self, son, friend DME/HHC: Lizz denies DME in the home. Patient wishes to discharge home, denies need for home health at this time. Patient states he has no further needs or concerns at this time. CM to follow for discharge planning needs that may arise. Disposition Plan: Patient to discharge home with family support and follow-up plans in place. Estelita GALICIA, RN, CM
== END 2024-03-29 16:37 | disposition home or self-care (01) | DRG 378 ==
LOC: ED 10:25 → PCU 11:37
PROVIDERS: Internal Medicine Gastroenterology; Admitting Provider Internal Medicine; Emergency Provider Emergency Medicine; PCP Family Medicine Geriatric Medicine; Visit Provider Internal Medicine
PROC: 0DJ08ZZ Inspection of Upper Intestinal Tract, Via Natural or Artificial Opening Endoscopic (ICD-10-PCS; CPT 43235; principal; 2024-03-28 15:40)
DX: K25.4 Chronic or unspecified gastric ulcer with hemorrhage (principal); D68.32 Hemorrhagic disorder due to extrinsic circulating anticoagulants; I10 Essential (primary) hypertension; Z95.2 Presence of prosthetic heart valve; E78.5 Hyperlipidemia, unspecified; K21.9 Gastro-esophageal reflux disease without esophagitis; F41.9 Anxiety disorder, unspecified; Z79.01 Long term (current) use of anticoagulants; Z90.710 Acquired absence of both cervix and uterus; F43.10 Post-traumatic stress disorder, unspecified
CPT/HCPCS: 36415; 74018; 74177; 80053; 83690; 85014; 85018; 85025; 85610; 99284; Q9967; A4216; J2405

== ENCOUNTER → 2024-04-02 | Outpatient (CLI) | payer OTHER, SELFPAY | END | disposition home or self-care (01) | PROVIDERS: PCP Family Medicine Geriatric Medicine; Referring Provider Family Medicine Geriatric Medicine; Visit Provider Family Medicine Geriatric Medicine | DX: R19.7 Diarrhea, unspecified (principal) | CPT/HCPCS: 82274; 83630; 87177; 87209; 87493; 87506 ==

== ENCOUNTER 2024-04-05 13:29 | Outpatient (RCR) | payer OTHER, SELFPAY ==
[2024-03-26 15:17] LABS: International Normalized Ratio 2.3; Prothrombin Time (Protime)PT. 25.9 SECONDS (11.7-14.9)
[2024-03-28 16:08] LABS: H. PYLORI STOOL AG Negative (Negative)
[2024-04-02 11:53] LABS: Absolute Lymphocyte Count 1.81 X10^3/uL (0.83-4.51); Absolute Neutrophil Count 15.1 X10^3/uL (2.0-7.7); Basophil% 0.5 % (0-1); Eosinophil# 1.14 X10^3/uL; Eosinophils% 5.8 % (0-5); Hemoglobin 13.9 g/dL (12.0-15.0); Lymphocyte # 1.81 X10^3/ul (0.83-4.51); Lymphocyte % 9.2 % (19-41); Mean Corp Hgb Conc 34.8 g/dL (32-36); Mean Corpuscular Volume 83.3 fL (81-99); Mean Platelet Vol. 9.5 fl (6.2-12.0); Monocyte# 1.33 X10^3/uL; Monocyte% 6.8 % (0-10); NRBC Flagged by Analyzer 0 % (0-5); Neutrophil # 15.12 X10^3/uL (2.7-7.7); Neutrophil % 76.9 % (47-70); Platelet Count 355 K/mm3 (150-450); RBC Distribution Width CV 13.9 % (11.6-14.6); RBC Distribution Width SD 42.1 fl (35.1-43.9); White Blood Count 19.7 K/mm3 (4.4-11.0)
[2024-04-02 12:00] LABS: International Normalized Ratio 2.2; Prothrombin Time (Protime)PT. 25.3 SECONDS (11.7-14.9)
[2024-04-02 12:11] LABS: ALB/GLOB Ratio 0.7 RATIO (0.9-2.4); AST(SGOT) 28 U/L (15-37); Alanine Aminotransfer ALT/SGPT 36 U/L (13-56); Albumin, Serum 2.7 g/dL (3.2-5.0); Alkaline Phosphatase 150 U/L (45-117); Anion Gap 10 (5-15); BUN 18 mg/dL (7-18); BUN/Creat Ratio 20.2 RATIO (10-20); Calcium,Total 9.4 mg/dL (8.5-10.1); Chloride 98 mmol/L (98-107); Creatinine, Serum 0.89 mg/dL (0.55-1.02); EST Glomerular Filtration Rate 69 mL/min (>60); Est Glom Filt Rate - Afr Amer 83 mL/min (>60); Globulin 3.9 g/dL (2.2-4.2); Glucose 98 mg/dL (74-106); Potassium 3.2 mmol/L (3.5-5.1); Protein, Total 6.6 g/dL (6.4-8.2); Sodium Level 134 mmol/L (136-145)
[2024-04-05 14:05] LABS: Hematocrit 39.1 % (37-47); Hemoglobin 13.6 g/dL (12.0-15.0); Mean Corp Hgb Conc 34.8 g/dL (32-36); Mean Corpuscular Hgb 28.8 pg (27.0-32.0); Mean Corpuscular Volume 82.8 fL (81-99); Mean Platelet Vol. 9.6 fl (6.2-12.0); Platelet Count 409 K/mm3 (150-450); RBC Distribution Width SD 42.2 fl (35.1-43.9); Red Blood Count 4.72 M/mm3 (4.2-5.4); White Blood Count 12.7 K/mm3 (4.4-11.0)
[2024-04-05 14:57] LABS: International Normalized Ratio 3.3; Prothrombin Time (Protime)PT. 34.2 SECONDS (11.7-14.9)
== END 2024-04-13 18:00 | disposition home or self-care (01) ==
LOC: LAB 13:29
PROVIDERS: Student in an Organized Health Care Education/Training Program; Referring Provider Family Medicine Geriatric Medicine
DX: I10 Essential (primary) hypertension (principal)
CPT/HCPCS: 36415; 80053; 85025; 85027; 85610; 87338

== ENCOUNTER → 2024-04-05 | Outpatient (CLI) | payer OTHER, SELFPAY ==
--- NOTE | 2024-04-05 14:01 | CT_ITS ---
PROCEDURE: ABDOMEN/PELVIS WITH CONTRAST REASON FOR EXAM: Diarrhea. Follow-up examination. TECHNIQUE: Abdomen and pelvis CT with intravenous contrast. No oral contrast. IV CONTRAST: 97 mL of Isovue-300. COMPARISON: Comparison is made with prior study dated March 28, 2024. FINDINGS: Lung bases: Clear Liver: Diffuse fatty infiltration. Gallbladder: Surgically absent. Spleen: Unremarkable. Pancreas: Unremarkable. Adrenals: Unremarkable. Kidneys: Unremarkable. Bladder: Unremarkable. Reproductive Organs: Prior hysterectomy. Adnexal regions are unremarkable. Bowel: There is evidence of diffuse circumferential wall thickening of the: Down to the rectum. This is in keeping with the caraballo colitis. Appendix: The appendix is not identified. There is no inflammatory process identified in the right lower quadrant to suggest appendicitis. Lymph nodes: No suspicious lymph node enlargement. Vasculature: Mild diffuse atherosclerotic calcifications are noted. Peritoneum / Retroperitoneum: No ascites. No free air. Bones: Degenerative changes of the spine. 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 One or more dose reduction techniques were used (e.g., Automated exposure contr ol, adjustment of the mA and/or kV according to patient size, use of iterative reconstruction technique). Reading Location: [place] [id number]
== END | disposition home or self-care (01) ==
LOC: CT 13:31
PROVIDERS: PCP Family Medicine Geriatric Medicine; Referring Provider Family Medicine Geriatric Medicine; Visit Provider Family Medicine Geriatric Medicine
DX: R19.7 Diarrhea, unspecified (principal)
CPT/HCPCS: 74177; Q9967

== ENCOUNTER → 2024-04-10 | Outpatient (CLI) | payer OTHER, SELFPAY ==
[2024-04-10 09:23] LABS: International Normalized Ratio 1.9; Prothrombin Time (Protime)PT. 21.7 SECONDS (11.7-14.9)
== END | disposition home or self-care (01) ==
LOC: LAB 08:23
PROVIDERS: PCP Family Medicine Geriatric Medicine
DX: Z79.01 Long term (current) use of anticoagulants (principal)
CPT/HCPCS: 36415; 85610

== ENCOUNTER → 2024-04-11 | Outpatient (CLI) | payer OTHER, SELFPAY ==
[2024-04-11 08:55] LABS: Hematocrit 36.8 % (37-47); Hemoglobin 12.5 g/dL (12.0-15.0); Mean Corpuscular Hgb 29.8 pg (27.0-32.0); Mean Corpuscular Volume 87.6 fL (81-99); Mean Platelet Vol. 9.4 fl (6.2-12.0); Platelet Count 317 K/mm3 (150-450); RBC Distribution Width CV 14.6 % (11.6-14.6); RBC Distribution Width SD 46.5 fl (35.1-43.9); White Blood Count 10.9 K/mm3 (4.4-11.0)
[2024-04-11 09:49] LABS: AST(SGOT) 36 U/L (<=31); Alanine Aminotransfer ALT/SGPT 31 U/L (<=34); Albumin, Serum 3.7 g/dL (3.5-5.0); Alkaline Phosphatase 98 U/L (35-104); Bilirubin, Direct 0.12 mg/dL (0.00-0.30); Creatinine, Serum 0.7 mg/dL (0.6-1.0); EST Glomerular Filtration Rate 102 (>60); Globulin 2.4 g/dL (2.2-4.2); Protein, Total 6.1 g/dL (5.9-8.4); Total Bilirubin 0.27 mg/dL (0.00-1.30)
== END | disposition home or self-care (01) ==
PROVIDERS: PCP Family Medicine Geriatric Medicine; Referring Provider Specialist; Visit Provider Specialist
DX: Z79.01 Long term (current) use of anticoagulants (principal)
CPT/HCPCS: 80076; 82565; 85027

== ENCOUNTER → 2024-04-17 | Outpatient (CLI) | payer OTHER, SELFPAY ==
--- NOTE | 2024-04-17 07:03 | US_ITS ---
PROCEDURE: ABD LIMITED W/ ELASTOGRAPHY REASON FOR EXAM: Fatty infiltration of the liver. COMPARISON: None. TECHNIQUE: Right upper quadrant abdominal ultrasound. [employer]om ElastQ Imaging shear wave elastography for non-invasive assessment of liver tissue stiffness. Boom EPIQ Elite. FINDINGS: LIVER: Size: Enlarged (hepatomegaly) Length: 18.9 cm cm Echotexture: Diffusely echogenic suggesting fatty infiltration Contour: Normal Lesions: None identified Elastography: EQI Med: 9.2 kPa EQI Med [place]: 1.72 m/s IQR/Med: 8.8 %* GALLBLADDER: Surgically absent. COMMON BILE DUCT: Normal it measures 6 mm. PANCREAS: Normal Visualized portions of the right kidney are unremarkable. No right upper quadrant ascites. US/ABD Limited w/ Elastography IMPRESSION: MODERATE TO SEVERE HEPATIC FIBROSIS Reference Values: SRU <1.37 m/s (5.7kPa): No to mild fibrosis 1.37 m/s - 2.2 m/s: Moderate to severe fibrosis >2.2 m/s (15kPa): Significant fibrosis / cirrhosis METAVIR Score F2 or higher: 1.34 m/s (5.7kPa) F3 or higher: 1.55 m/s (7.3kPa) F4: 1.80 m/s (10kPa) * If the IQR/Med is >30%, the variance in the measurements is a large and the a ccuracy of the measurement may be in question. Reading Location: [id number]
== END | disposition home or self-care (01) ==
LOC: US 07:00
PROVIDERS: PCP Family Medicine Geriatric Medicine; Referring Provider Family Medicine Geriatric Medicine; Visit Provider Family Medicine Geriatric Medicine
DX: K76.0 Fatty (change of) liver, not elsewhere classified (principal)
CPT/HCPCS: 76705; 76981

== ENCOUNTER 2024-04-19 12:23 | Outpatient (CLI) | payer OTHER, SELFPAY ==
[2024-04-19 12:35] VITALS: BP 130/74; PULSE 60; RESP 16; TEMP 35.8; O2SAT 99; BMI 29.5
[2024-04-19] MEDS: 0.9% Normal Saline (1000mL) 1,000 ML 999 ML IV ×2 (12:40→13:38)
[2024-04-19 14:53] VITALS: BP 124/70; PULSE 58; RESP 16; TEMP 36.2; O2SAT 99
== END 2024-04-19 23:59 | disposition home or self-care (01) ==
LOC: MEDOUTP 12:23
PROVIDERS: PCP Family Medicine Geriatric Medicine; Referring Provider Family Medicine Geriatric Medicine; Visit Provider Family Medicine Geriatric Medicine
DX: E86.0 Dehydration (principal)
CPT/HCPCS: 96360; 96361

== ENCOUNTER → 2024-04-19 | Outpatient (CLI) | payer OTHER, SELFPAY ==
[2024-04-19 10:42] LABS: Absolute Lymphocyte Count 0.72 X10^3/uL (0.83-4.51); Absolute Neutrophil Count 4.1 X10^3/uL (2.0-7.7); Basophil# 0.01 X10^3/uL; Basophil% 0.2 % (0-1); Eosinophil# 0.39 X10^3/uL; Hemoglobin 13.7 g/dL (12.0-15.0); Lymphocyte # 0.72 X10^3/ul (0.83-4.51); Mean Corp Hgb Conc 34.3 g/dL (32-36); Mean Corpuscular Hgb 29.8 pg (27.0-32.0); Mean Corpuscular Volume 87.1 fL (81-99); Mean Platelet Vol. 9.4 fl (6.2-12.0); Monocyte# 0.36 X10^3/uL; Monocyte% 6.5 % (0-10); NRBC Flagged by Analyzer 0 % (0-5); Neutrophil # 4.05 X10^3/uL (2.7-7.7); Neutrophil % 73.1 % (47-70); Platelet Count 322 K/mm3 (150-450); RBC Distribution Width CV 14.3 % (11.6-14.6); RBC Distribution Width SD 45.1 fl (35.1-43.9); Red Blood Count 4.59 M/mm3 (4.2-5.4); White Blood Count 5.5 K/mm3 (4.4-11.0)
[2024-04-19 10:53] LABS: International Normalized Ratio 2.1
[2024-04-19 11:42] LABS: ALB/GLOB Ratio 1.3 RATIO (0.9-2.4); AST(SGOT) 38 U/L (<=31); Alanine Aminotransfer ALT/SGPT 24 U/L (<=34); Albumin, Serum 4.1 g/dL (3.5-5.0); Alkaline Phosphatase 143 U/L (35-104); Anion Gap 13 (5-15); BUN 16 mg/dL (4-19); BUN/Creat Ratio 20.8 RATIO (10-20); Calcium,Total 9.4 mg/dL (7.6-11.0); Carbon Dioxide 22.7 mmol/L (21.0-32.0); Chloride 106 mmol/L (98-108); Creatinine, Serum 0.79 mg/dL (0.70-1.20); EST Glomerular Filtration Rate 87 (>60); Globulin 3.2 g/dL (2.2-4.2); Glucose 99 mg/dL (70-99); Potassium 3.7 mmol/L (3.3-5.1); Protein, Total 7.3 g/dL (5.9-8.4); Sodium Level 141 mmol/L (133-145)
--- NOTE | 2024-04-19 12:00 | CT_ITS ---
PROCEDURE: ABDOMEN/PELVIS WITH CONTRAST REASON FOR EXAM: Unspecified abdominal pain. Per technologist report, diarrhea x3 weeks. TECHNIQUE: CT abdomen and pelvis was performed with IV contrast. Multiplanar reformats were generated. PO contrast was administered. IV CONTRAST: 98 mL Isovue-300 COMPARISON: 04/05/2024. FINDINGS: Lung bases: Sternotomy. Partially imaged aortic valvular prosthesis. Coronary atherosclerosis and/or stents. Small hiatal hernia. Fluid in the distal esophagus suggesting gastroesophageal reflux. Liver: Unremarkable. Spleen: Mild splenomegaly, 13.5 cm. Tiny hypodensity inferolaterally, too small to characterize, likely a cyst or hemangioma in the absence of known malignancy, also present 02/03/2020 but increased in conspicuity. Gallbladder: Cholecystectomy. Pancreas: Unremarkable. Adrenals: Unremarkable. Kidneys: Unremarkable. Bowel: Jose Ramon-en-Y gastric bypass.. The gastrojejunostomy and jejunojejunostomy are not well seen however the configuration is similar to prior. Similarly distended gastric pouch. Contrast noted to be within the excluded stomach and does not appear to have refluxed retrograde from the jejunal jejunostomy given that the duodenum is not opacified. Opacification of the gastric pouch also present to a lesser degree. No bowel dilatation or convincing inflammation. Liquid contents of the colon suggesting malabsorption/diarrhea. Oral contrast reaches the level of the colon. Normal caliber appendix. Lymph nodes: Unremarkable. Vasculature: Atherosclerosis.. Peritoneum: Trace pelvic free fluid, decreased from prior. Bladder: Underdistended and suboptimally evaluated, grossly unremarkable. Reproductive Organs: Hysterectomy. Tubal ligation clips. Body Wall: Operative changes. Tiny fat containing midline supraumbilical presumably incisional hernia. Bones: Mild spondylosis. Grade 1 anterolisthesis L5-S1 is likely degenerative. Partially imaged left femoral intramedullary hardware. CT/Abdomen/Pelvis WITH Contrast IMPRESSION: 1. Liquid contents of the colon suggesting malabsorption/diarrhea. No convinci ng inflammation to suggest colitis. 2. Jose Ramon-en-Y gastric bypass with suspected reversal. If reversal has not been performed, findings suggest gastrogastric fistula. Distention of the gastric pouch is noted and could suggest some degree of sten osis at the reversal site if reversal has been performed, however the appearance is similar to prior. Correlate with surgical history. 3. Trace nonspecific pelvic free fluid, potentially physiologic if the patient is premenopausal. 4. Mild splenomegaly. 5. Additional description as above. Reading Location: [facility]
== END | disposition home or self-care (01) ==
PROVIDERS: PCP Family Medicine Geriatric Medicine; Referring Provider Family Medicine Geriatric Medicine; Visit Provider Family Medicine Geriatric Medicine
DX: A04.72 Enterocolitis due to Clostridium difficile, not specified as recurrent (principal); R19.7 Diarrhea, unspecified; I10 Essential (primary) hypertension; N39.0 Urinary tract infection, site not specified; R10.9 Unspecified abdominal pain; Z79.01 Long term (current) use of anticoagulants
CPT/HCPCS: 36415; 74177; 80053; 82274; 83630; 85025; 85610; 87086; 87088; 87177; 87209; 87493; 87506; Q9967; A4216

== ENCOUNTER → 2024-05-19 | Outpatient (CLI) | payer OTHER, SELFPAY ==
[2024-05-19 08:38] LABS: Hemoglobin A1c 5.2 % (<=5.6)
[2024-05-19 09:02] LABS: ALB/GLOB Ratio 1.5 RATIO (0.9-2.4); AST(SGOT) 32 U/L (<=31); Alanine Aminotransfer ALT/SGPT 23 U/L (<=34); Albumin, Serum 4.2 g/dL (3.5-5.0); Alkaline Phosphatase 147 U/L (35-104); Anion Gap 13 (5-15); BUN 22 mg/dL (4-19); BUN/Creat Ratio 23.2 RATIO (10-20); Calcium,Total 9.8 mg/dL (7.6-11.0); Chloride 104 mmol/L (98-108); Creatinine, Serum 0.93 mg/dL (0.70-1.20); EST Glomerular Filtration Rate 72 (>60); Globulin 2.8 g/dL (2.2-4.2); Glucose 129 mg/dL (70-99); Potassium 4.2 mmol/L (3.3-5.1); Protein, Total 7.1 g/dL (5.9-8.4); Sodium Level 140 mmol/L (133-145); Total Bilirubin 0.33 mg/dL (0.00-1.30)
[2024-05-19 09:10] LABS: Absolute Lymphocyte Count 1.68 X10^3/uL (0.83-4.51); Basophil# 0.03 X10^3/uL; Basophil% 0.3 % (0-1); Eosinophil# 0.32 X10^3/uL; Eosinophils% 3.3 % (0-5); Hematocrit 37.4 % (37-47); Hemoglobin 12.6 g/dL (12.0-15.0); Lymphocyte # 1.68 X10^3/ul (0.83-4.51); Lymphocyte % 17.5 % (19-41); Mean Corp Hgb Conc 33.7 g/dL (32-36); Mean Corpuscular Hgb 29.6 pg (27.0-32.0); Mean Corpuscular Volume 87.8 fL (81-99); Mean Platelet Vol. 9.7 fl (6.2-12.0); Monocyte# 0.59 X10^3/uL; Monocyte% 6.1 % (0-10); NRBC Flagged by Analyzer 0 % (0-5); Neutrophil # 6.98 X10^3/uL (2.7-7.7); Neutrophil % 72.6 % (47-70); Platelet Count 318 K/mm3 (150-450); RBC Distribution Width CV 13.7 % (11.6-14.6); RBC Distribution Width SD 44.3 fl (35.1-43.9); Red Blood Count 4.26 M/mm3 (4.2-5.4); White Blood Count 9.6 K/mm3 (4.4-11.0)
[2024-05-19 09:38] LABS: Vitamin D,25 Hydroxy 26.3 ng/mL (30-100)
== END | disposition home or self-care (01) ==
LOC: LAB 07:25
PROVIDERS: PCP Family Medicine Geriatric Medicine; Referring Provider Family Medicine Geriatric Medicine; Visit Provider Family Medicine Geriatric Medicine
DX: I10 Essential (primary) hypertension (principal); E55.9 Vitamin D deficiency, unspecified; R73.09 Other abnormal glucose
CPT/HCPCS: 36415; 80053; 82306; 83036; 85025

== ENCOUNTER 2024-05-25 13:17 | Outpatient (RCR) | payer OTHER, SELFPAY ==
[2024-05-25 13:57] LABS: International Normalized Ratio 2.9; Prothrombin Time (Protime)PT. 30.9 SECONDS (11.7-14.9)
== END 2024-06-13 18:00 | disposition home or self-care (01) ==
LOC: LAB 13:17
PROVIDERS: PCP Family Medicine Geriatric Medicine; Referring Provider Family Medicine Geriatric Medicine
DX: Z79.83 Long term (current) use of bisphosphonates (principal)
CPT/HCPCS: 85610

== ENCOUNTER 2024-07-06 12:49 | Outpatient (RCR) | payer OTHER, SELFPAY ==
[2024-07-06 13:50] LABS: International Normalized Ratio 2.6; Prothrombin Time (Protime)PT. 28.1 SECONDS (11.7-14.9)
== END 2024-07-06 18:00 | disposition home or self-care (01) ==
LOC: LAB 12:49
PROVIDERS: PCP Family Medicine Geriatric Medicine; Referring Provider Family Medicine Geriatric Medicine
DX: Z79.01 Long term (current) use of anticoagulants (principal)
CPT/HCPCS: 36415; 85610

== ENCOUNTER → 2024-07-20 | Outpatient (CLI) | payer OTHER, SELFPAY ==
--- NOTE | 2024-07-20 07:43 | CT_ITS ---
PROCEDURE: LIMITED CHEST CT CARDIAC ONLY REASON FOR EXAM: ENCOUNTER FOR SCREENING FOR CARDIOVASCULAR DISORDERS TECHNIQUE: Prone and supine chest CT without contrast, high resolution CT (HRCT) protocol. Coronal and Sagittal reconstruction series were provided. One or more dose reduction techniques were used (e.g., Automated exposure control, adjustment of the mA and/or kV according to patient size, use of iterative reconstruction technique). COMPARISON: Chest CT of 02/03/2020. CT/Limited Chest CT Cardiac Only IMPRESSION: Partially aortic calcification is seen. An aortic valve replacement is in place. Limited imaging of the lungs demonstrates no acute process. No pleural effusion or pneumothorax is seen in visualized areas. No adenopathy is noted. The visualized upper abdomen demonstrates no significant abnormality. Reading Location: [id number]
--- OUTSIDE RECORDS SUMMARY | 2024-07-20 07:49 | XMS RPT_ITS | CCD ---
Author Organization [facility] Care Team Providers Care Housing Assistant Name Role Phone Charles FISHMAN, Jodi Dejesus Unavailable Andrew Ramirez MD Unavailable [phone] Chance Carolina Admitting Unavailable Chance Carolina Attending Unavailable Miya Goldman Primary Care Unavailable Kristyn Montiel Unavailable Unavailable [place], [facility] Primary Care Physician [phone] Unavailable Primary Care Provider Unavailabl e Pr, [place] Primary Care Provider Pr, [place] Primary Care Provider SHARON BLAKELY DO [facility]ending Unavailable [facility] Care Unavailable DR SHABBIR KAPADIA MD Attending [facility]available [facility] Primary Care Unavailable DR SHABBIR KAPADIA MD Attending [facility]available [facility] Primary Care Unavailable DR CHET AVILA MD Attending Unavailabl e [facility] Primary Care Unavailable DR CHET AVILA MD Attending Unavailabl e [facility] Primary Care Unavailable CARMEN MARES Attending [facility]available [facility] Primary Care Unavailable SRIDHAR ESPINOZA DO Attending Unavailable [facility] Primary Care Unavailable CARMEN MARES Attending [facility]available [facility] Primary Care Unavailable MARY, JAYASHREE Referring Unavailable [facility] Primary Care Unavailable JENNIFER SALAS Referring Unavailable [facility] Primary Care Unavailable MARY, JAYASHREE Referring Unavailable FREDERICK COLVIN Attending Unavailable [facility] Primary Care Unavailable MARY JAYASHREE Attending Unavailable MARY, JAYASHREE Referring Unavailable MARY JAYASHREE Attending Unavailable MARY, JAYASHREE Referring Unavailable MARY, JAYASHREE Attending Unavailable MARY, JAYASHREE Attending Unavailable MARY, JAYASHREE Referring Unavailable [facility] Primary Care Unavailable JENNIFER SALAS Attending Unavailable [facility] Primary Care Unavailable SANDRINE HUMPHRIES Attending Unavailable [facility] Primary Care Unavailable STAVROU, SHABBIR Attending Provider STAVROU, SHABBIR Referring Provider [place] [facility] [place] [facility] [place] Referring Provider Unavailable Jaycee ANODE ADJUSTER-CMy Attending Provider Jaycee ANODE ADJUSTER-C, My Referring Provider Griffin GUERIN, Dr. Marcel Hudson Attending Provider Sandrine Lane Attending Provider Steffi GUERIN, Dr. Shea Attending Provider Steffi GUERIN, Dr. Shea Referring Provider Griffin GUERIN, Dr. Marcel Hudson Referring Provider Lon GUERIN, Sharath Emergency Provider Griffin GUERIN, Dr. Marcel Hudson Primary Care Provider Terkartik DO, Dr. Ba Admit Provider Terkartik DO, Dr. Ba Attending Provider Summer DO, Dr. Ba Referring Provider Summer DO, Dr. Ba Other Provider Friend DO, Dr. Nino Attending Provider DANIEL TRAORE Attending Provider Unavailable DANIEL TRAORE Referring Provider Unavailable Aida GUERIN, Dr. Aggarwal Attending Provider STAVROU, HSABBIR Attending Provider STAVROU, SHABBIR Referring Provider [place] Primary Care Provider Unavailabl [facility] [facility] [place] Referring Provider Unavailable Jaycee GUARDADO-My Govea Attending Provider Jaycee GUARDADO-CMy Referring Provider Griffin GUERIN, Dr. Marcel Hudson Attending Provider Sandrine Lane Attending Provider Steffi GUERIN, Dr. Shea Attending Provider Steffi GUERIN, Dr. Shea Referring Provider Griffin GUERIN, Dr. Marcel Hudson Referring Provider Sharath Forrest MD Emergency Provider Griffin GUERIN, Dr. Marcel Hudson Primary Care Provider Summer ROSA, Dr. Ba Admit Provider Summer DO, Dr. Ba Attending Provider Summer DO, Dr. Ba Referring Provider Summer DO, Dr. Ba Other Provider Elmer DO, Dr. Nino Attending Provider DANIEL TRAORE Attending Provider Unavailable DANIEL TRAORE Referring Provider Unavailable Aida GUERIN, Dr. Aggarwal Attending Provider [place] Primary Care Provider Unavailgrace KAPADIA, SHABBIR Attending Provider [phone] STAVROU, SHABBIR Referring Provider [facility], [place] Primary Care Provider Unavailgrace Moya MD, Dr. Marcel Hudson Attending Provider STAELISABETOU, SHABBIR Attending Provider Steffi GUERIN, Dr. Shea Attending Provider [phone] Steffi GUERIN, Dr. Shea Referring Provider Griffin, Marcel Chi Attending Unavailable Griffin, Marcel Chi Referring Unavailable Griffin, Marcel Chi Primary Care Unavailable Ochoa, Tacho Primary Care Unavailable Stavrou, Shabbir Attending Unavailable Ochoa, Tacho Primary Care Unavailable CORTEZ, CARL1 Referring Unavailable CORTEZ, CARL1 Attending Unavailable Griffin, Marcel Chi Primary Care Unavailable CORTEZ, CARL1 Attending Unavailable CORTEZ, CARL1 Referring Unavailable Griffin, Marcel Chi Referring Unavailable CORTEZ, CARL1 Attending Unavailable [facility] Primary Care Unavailable Stavrou, Shabbir Attending Unavailable Stavrou, Shabbir Referring Unavailable Griffin, Marcel Chi Primary Care Unavailable Griffin, Marcel Chi Attending Unavailable Griffin, Marcel Chi Referring [facility]available [facility] Primary Care Unavailable Griffin, Marcel Chi Primary Care Unavailable Mejia Wheeler Admitting Unavailable Mejia Wheeler Attending Unavailable Griffin, Marcel Chi Referring Unavailable Griffin, Marcel Chi Attending Unavailable Griffin, Marcel Chi Primary Care Unavailable CORTEZ, CARL1 Referring [facility] Unavailable CORTEZ, JOVANNI1 Attending [facility]available [facility] [place] [facility] Unavailable Tylor Velasquez Attending Unavailable Ochoa, Tacho Primary Care Unavailable CORTEZ, JOVANNI1 Attending Unavailable Griffin, Marcel Chi Referring Unavailable Griffin, Marcel Chi Primary Care Unavailable CORTEZ, CARL1 Attending Unavailable Griffin, Marcel Chi Referring Unavailable Griffin, Marcel Chi Attending Unavailable Griffin, Marcel Chi Primary Care Unavailable Griffin, Marcel Chi Referring Unavailable Griffin, Marcel Chi Primary Care Unavailable CORTEZ, CARL1 Attending Unavailable Griffin, Marcel Chi [facility] Unavailable Griffin, Marcel Chi Referring Unavailable Griffin, Marcel Chi Primary Care Unavailable CORTEZ, CARL1 Attending Unavailable Griffin, Marcel Chi Referring Unavailable Griffin, Marcel Chi Attending Unavailable Griffin, Marcel Chi Primary Care Unavailable Griffin, Marcel Chi Attending Unavailable Griffin, Marcel Chi Referring Unavailable Griffin, Marcel Chi Primary Care Unavailable Griffin, Marcel Chi Referring Unavailable Griffin, Marcel Chi Attending Unavailable Griffin, Marcel Chi Primary Care Unavailable Stavrou, Shabbir Attending Unavailable Stavrou, Shabbir Referring [facility] [place] [facility] Unavailable Griffin, Marcel Chi Primary Care Unavailable Mejia Wheeler Admitting Unavailable Mejia Wheeler Consulting Unavailable Mejia Wheeler Attending Unavailable [place], My Attending Unavailable Jaycee, My Referring [facility]available [facility] [place] [facility] Unavailable Terkartik Mejia Referring Unavailable Elmer Trung Attending Unavailable Jaycee, My Attending [facility] [place] [facility] Unavailable Sandrine Walker Attending [facility] [place] Referring Unavailable Ochoa, Tacho Primary Care Unavailable Jose L Rodas Attending Unavailable Stavrou, Shabbir Consulting Unavailable Stavrou, Shabbir Attending Unavailable Ochoa, Tacho Primary Care Unavailable Griffin, Marcel Chi Attending [facility] Unavailable Griffin, Marcel Chi Referring Unavailable Griffin, Marcel Chi Primary Care Unavailable CORTEZ, JOVANNI1 Attending Unavailable Ochoa, Tacho Primary Care Unavailable CORTEZ, CARL1 Referring Unavailable CORTEZ, CARL1 Attending [facility] Unavailable CORTEZ, CARL1 Referring Unavailable CORTEZ, CARL1 Attending Unavailable Griffin, Marcel Chi Attending Unavailable Griffin, Marcel Chi Referring Unavailable Griffin, Marcel Chi Primary Care Unavailable Griffin, Marcel Chi Primary Care Unavailable Jasen Parra Attending Unavailable Sandrine Walker Attending Unavailable Sandrine Walker Referring [facility]available [facility] [facility] [place] Unavailable Tylor Velasquez Attending [facility] [place] [facility] [place] [facility] Primary [place] Unavailable Tylor Velasquez Attending Unavailable Tylor Velasquez Referring Unavailable [facility] [place] Primary Care Unavailable Tylor Velasquez Attending Unavailable Allergies Allergy Classification Reported Allergen(s) Allergy Type Date of Onset Reaction(s) Facility Benzodiazepines (1 source) Temazepam Drug Allergy 01-06-20 10 Other: See Comments [facility] Work Phone: HMG-CoA Reductase Inhibitors (statins) (3 sources) atorvastatin Drug Allergy 10-14-19 10 Other: See Comments [facility] Work Phone: Macrolides (antibiotic) (1 source) Clarithromycin Drug Allergy 05-27-19 24 GI Upset [facility] (3 sources) traMADol; Translations: [TRAMADOL] food allergy 06-12-19 15 [facility] Work Phone: (1 source) No Known Medication Allergies; Translations: [No Known Medication Allergies] Propensity to adverse reactions to drug (disorder) [facility] Repository (20 sources) Pravastatin; Translations: [PRAVASTATIN SODIUM] Drug Allergy 10-14-19 10 [facility] Work Phone: (20 sources) Temazepam; Translations: [TEMAZEPAM] Drug Allergy 01-06-20 10 Other: See Comments [facility] Work Phone: (20 sources) atorvastatin; Translations: [ATORVASTATIN] Drug Allergy 04-18-19 Other: See Comments [facility] Work Phone: (20 sources) rosuvastatin; Translations: [ROSUVASTATIN] Drug Allergy 04-28-19 24 Other: See Comments [facility] Work Phone: (20 sources) Clarithromycin; Translations: [CLARITHROMYCIN] Drug Allergy 05-27-19 24 GI Upset [facility] Medications Current Medications Medication Drug Class(es) Dates [...] mouth 1 hr prior to procedure AMOXICILLIN [id number] Andrew Ramirez MD Comment on above: Take 2 tablets by mo ut two times a day for 14 days. amoxicillin 875 mg / clavulanate 125 mg oral tablet (9 sources) Penicillin-class Antibacterial Start: 04-01-2023 End: 04-11-2023 take 1 tablet by mouth every twelve hours amoxicillin-clav ulanate 875 mg-125 mg oral tablet 1 tab(s), Oral, q12h, X 10 day(s), # 20 tab(s), 0 Refill(s), 04/11/23 9:40:00 AM EST, 84.1 Start Date: 04/01/23 Stop Date: 04/11/23 Status: Ordered Start: 03-05-2017 End: 06-27-2017 Amoxicillin-Pot Clavulanate 1 EACH tablet Discontinued 1 NMA PO TWICE A DAY March 05, 2017 1:00am June 27, 2017 10:42am Start: 03-05-2017 End: 06-27-2017 Amoxicillin-Pot Clavulanate Discontinued 1 EACH PO TWICE A DAY March 05, 2017 1:00am June 27, 2017 10:42am benzonatate 100 mg oral capsule (1 source) Non-narcotic Antitussive Start: 12-15-2021 End: 12-22-2021 Tessalon Perles 100 mg oral capsule Dose : 100 mg = 1 cap(s), Oral, TID, X 7 day(s), # 21 cap(s), 0 Refill(s), 12/22/21 2:42:00 EST Start Date: 12/15/21 Stop Date: 12/22/21 Status: Ordered bismuth subsalicylate 262 mg chewable tablet (20 sources) Bismuth Start: 05-23-2023 End: 06-06-2023 take 1 tablet by mouth four times daily bismuth subsalicylate (BISMUTH) 262 mg chewable tablet Indications: Helicobacter pylori infection Take 1 tablet by mouth four times daily for 14 days. 56 tablet 05/23/2023 Active Comment on above: Take 1 tablet by rui four times daily for 14 days. clarithromycin 500 mg oral tablet (5 sources) Macrolide Antimicrobial Start: 05-17-2023 End: 05-31-2023 take 1 tablet by mouth twice daily clarithromycin (BIAXIN) 500 mg Indications: Helicobacter pylori gastritis Take 1 tablet by mouth two times a day for 14 days. 28 tablet 0 05/17/2023 05/31/2023 Active Comment on above: Take 1 tablet by [facility] two times a day for 14 days. cyclobenzaprine hydrochloride 5 mg oral tablet (2 sources) Muscle Relaxant Start: 12-07-2022 End: 12-12-2022 cyclobenzaprine 5 mg oral tablet Dose : [...] Date: 02/11/22 Stop Date: 02/16/22 Status: Ordered lidocaine 0.05 mg/mg medicated patch [...] oral tablet (5 sources) Nitroimidazole Antimicrobial Start: 05-23-19 End: 06-06-19 take 1 tablet by mouth four times daily metroNIDAZOLE (FLAGYL) 250 mg tablet Indications: Helicobacter pylori infection Take 1 tablet by mouth four times daily for 14 days. 56 tablet 0 05/23/2023 06/06/2023 Active Comment on above: Take 1 tablet by [facility] four times daily for 14 days. Multivitamin preparation (1 source) Start: 07-16-19 Multivitamin Active 1 EACH PO DAILY July 16, 2019 12:00am naproxen 250 mg oral tablet (1 source) Nonsteroidal Anti-inflammatory Drug Start: 12-08-19 End: 12-15-19 naproxen 250 mg oral tablet Dose : 250 mg = 1 tab(s), Oral, BID, X 7 day(s), # 14 tab(s), 0 Refill(s), 12/14/22 11:44:00 AM EDT Start Date: 12/07/22 Stop Date: 12/14/22 Status: Ordered pantoprazole 40 mg delayed release oral tablet (20 sources) Proton Pump Inhibitor Start: 01-28-20 take 1 tablet by mouth twice daily Pantoprazole 40 mg tablet,delayed release (DR/EC) Active 40 mg PO TWICE A DAY January 28, 2024 1:00am Start: 06-04-2022 End: 12-29-2023 take 1 tablet by mouth twice daily pantoprazole DR (PROTONIX) 40 mg tablet Indications: Gastroesophageal reflux disease with esophagitis without hemorrhage Take 1 tablet by mouth two times a day. 180 tablet 09/30/2023 Active Start: 07-20-2012 End: 09-30-2023 take 1 [...] on above: Take 1 capsule by mo [facility] before meals and at bedtime for 14 days. topiramate 25 mg oral tablet (18 sources) Start: 09-07-19 topiramate 25 mg oral tablet 0 Refill(s) Start Date: 09/06/21 Status: Ordered Start: 12-24-2014 End: 07-02-2016 take 1 tablet by mouth once daily TOPAMAX 50 MG TABS One tablet by mouth daily TOPIRAMATE [id number] Andrew Ramirez MD Start: 12-24-2014 TOPAMAX 25 MG TABS as needed for migraine headaches TOPIRAMATE [id number] Shiela Nguyen RN trospium chloride 20 mg [...] Refill(s), 85.8 Start Date: 09/06/21 Status: Ordered Start: 04-07-2018 End: 04-17-2018 Valacyclovir (Valtrex) 1 gra m tablet Discontinued 1000 mg PO TWICE A DAY 03 12April 07, 2018 1:00am April 16, 2018 1:00am April 17, 2018 1:10am initial outbreak Comment on above: Take 1 tablet by rui once daily. vitamin b12 1 mg oral tablet (20 sources) Vitamin B12 take 1 tablet by mouth once daily cyanocobalamin (VITAMIN B-12) 1,000 mcg tab Take 1,000 mcg by mouth once daily. Active Comment on above: Take 1,000 mcg by mo [facility] once daily. Completed/Discontinued Medications Medication Drug Class(es) Dates Sig (Normalized) Sig (Original) acetaminophen 325 mg / HYDROcodone bitartrate 5 mg oral tablet (8 sources) Opioid Agonist Start: 01-30-2020 End: 02-02-2020 Hydrocodone-Acetami nophen 1 TABLET tablet Discontinued 1 {tbl} PO EVERY 6 HOURS NEEDED as needed for Pain 11 16January 30, 2020 February 01, 2020 1:00am February 02, 2020 1:03am Start: 01-30-2020 End: 02-02-2020 take 1 tablet by mouth every six hours as needed Hydrocodone-Acetaminophen Discontinued 1 TABLET PO EVERY 6 HOURS NEEDED 11 16January 30, 2020 February 02, 2020 1:03am acetaminophen 325 mg / oxyCODONE hydrochloride 5 mg oral tablet (16 sources) Opioid Agonist Start: 02-03-2020 End: 02-06-2020 Oxycodone-Acetaminophen 1 TABLET tablet Discontinued 1 {tbl} PO EVERY 6 HOURS NEEDED as needed for Pain 12 February 03, 2020 February 05, 2020 1:00am February 06, 2020 1:02am Start: 02-03-2020 End: 02-06-2020 take 1 tablet by mouth every six hours as needed Oxycodone-Acetaminophen Discontinued 1 TABLET PO EVERY 6 HOURS NEEDED 12 February 03, 2020 February 06, 2020 1:02am Start: 12-09-2017 End: 12-14-2017 Oxycodone-Acetaminophen 1 TA BLET tablet Discontinued 1 {tbl} PO EVERY 6 HOURS NEEDED as needed for Pain 03 07December 09, 2017 12:00am December 13, 2017 12:00am December 14, 2017 12:09am Start: 12-09-2017 End: 12-14-2017 take 1 tablet by mouth every six hours as needed Oxycodone-Acetaminophen Discontinued 1 TABLET PO EVERY 6 HOURS NEEDED 03 07December 09, 2017 12:00am December 14, 2017 12:09am amitriptyline hydrochloride 25 mg oral tablet (16 sources) Tricyclic Antidepressant Start: 08-05-2017 End: 08-10-2017 take 1 tablet by mouth at bedtime Amitriptyline 25 MG tablet Discontinued 25 mg PO AT BEDTIME August 05, 2017 2:52pm August 10, 2017 9:25pm amLODIPine 5 mg oral tablet (7 sources) Dihydropyridine Calcium Channel Taisha Start: 01-28-2024 End: 04-19-2024 take 1 tablet by mouth once daily Amlodipine 5 mg tablet Discontinued 5 mg PO DAILY January 28, 2024 1:00am April 19, 2024 1:34pm aspirin 81 mg delayed release oral tablet (17 sources) Platelet Aggregation Inhibitor, Nonsteroidal Anti-inflammatory Drug Start: 06-28-2017 End: 06-29-2017 take 1 tablet by mouth once daily Aspirin 81 mg tablet,delayed release (DR/EC) Discontinued 81 mg PO daily June 28, 2017 12:00am June 29, 2017 1:29pm Start: 07-02-2016 take 1 tablet by rui th once daily ASPIR-81 81 MG TBEC One tablet by mouth daily ASPIRIN [id number] Andrew Ramirez MD Start: 07-02-2016 take 1 tablet by rui th once daily ASPIR-81 81 MG TBEC One tablet by mouth daily ASPIRIN [id number] Andrew Ramirez MD Start: 06-11-2014 End: 06-13-2014 take 1 tablet by mouth once daily ASPIRIN 81 MG TABS One tablet by mouth daily ASPIRIN [id number] Andrew Ramirez MD Start: 06-11-2014 End: 06-13-2014 take 1 tablet by mouth once daily ASPIRIN 81 MG TABS One tablet by mouth daily ASPIRIN [id number] Andrew Ramirez MD cephalexin 500 mg oral capsule (8 sources) Cephalosporin Antibacterial Start: 10-08-2014 End: 10-09-2014 take 1 capsule by mouth every six hours Cephalexin 500 MG capsule Discontinued 500 mg PO EVERY 6 HOURS October 08, 2014 12:00am October 09, 2014 10:17am citalopram 20 mg oral tablet (6 sources) Serotonin Reuptake Inhibitor Start: 06-11-2014 End: 06-13-2014 take 1 tablet by mouth once daily CELEXA 20 MG TABS One tablet by mouth daily CITALOPRAM HYDROBROMIDE [id number] Andrew Ramirez MD Collegan peptides (11 sources) Start: 05-19-2021 Collegan peptides Collegan peptides, See Instructions, 600 mg DAILY, 0 Refill(s), 84 Start Date: 05/19/21 Status: Ordered dexlansoprazole 30 mg disintegrating oral tablet (6 sources) Proton Pump Inhibitor Start: 06-11-2014 End: 03-03-2015 take 1 tablet by mouth once daily DEXILANT 30 MG CPDR One tablet by mouth daily DEXLANSOPRAZOLE [id number] Andrew Ramirez MD Start: 06-11-2014 End: 03-03-2015 take 1 tablet by mouth once daily DEXILANT 30 MG CPDR One tablet by mouth daily DEXLANSOPRAZOLE [id number] Andrew Ramirez MD ergocalciferol 32644 unt oral tablet (6 sources) Provitamin D2 Compound Start: 06-11-2014 End: 06-13-2014 take 1 tablet by mouth every week VITAMIN D (ERGOCALCIFEROL) 47180 UNIT CAPS One tablet by mouth weekly ERGOCALCIFEROL [id number] Andrew Ramirez MD Start: 06-11-2014 End: 06-13-2014 take 1 tablet by mouth every week VITAMIN D (ERGOCALCIFEROL) 33974 UNIT CAPS One tablet by mouth weekly ERGOCALCIFEROL [id number] Andrew Ramirez MD esomeprazole 40 mg injection (6 sources) Proton Pump Inhibitor Start: 06-11-2014 End: 06-13-2014 take 1 tablet by mouth once daily NEXIUM 40 MG CPDR One tablet by mouth daily ESOMEPRAZOLE MAGNESIUM [id number] Lita Crocker RN Start: 06-11-2014 End: 06-13-2014 take 1 tablet by mouth once daily NEXIUM 40 MG CPDR One tablet by mouth daily ESOMEPRAZOLE MAGNESIUM [id number] Lita Crocker RN estradiol 1 mg oral tablet (20 sources) Estrogen Start: 04-09-2019 End: 01-28-2024 take 1 tablet by mouth once daily Estradiol 1 mg tablet Discontinued 1 mg PO DAILY April 09, 2019 1:00am January 28, 2024 9:22am Start: 06-28-2017 End: 04-07-2018 take 1 tablet by mouth once daily Estradiol 0.5 MG tablet Discontinued 0.5 mg PO daily July 27, 2017 1:09pm April 07, 2018 11:18am Start: 06-27-2017 End: 07-27-2017 Estradiol 0.01 % (0.1 mg/gra m) cream Discontinued 1 g VAGINAL .COMPLEX 42.5 June 27, 2017 12:00am July 27, 2017 1:09pm 1 g VAGINAL 3 times per week ferrous sulfate (6 sources) Start: 06-11-2014 End: 06-13-2014 take 1 tablet by mouth once daily IRON 325 (65 Fe) MG TABS One tablet by mouth daily FERROUS SULFATE [id number] Andrew Ramirez MD Start: 06-11-2014 take 1 tablet by rui once daily IRON 325 (65 Fe) MG TABS One tablet by mouth daily FERROUS SULFATE [id number] Lita Crocker RN hydroCHLOROthiazide 12.5 mg / lisinopril 10 mg oral tablet (11 sources) Thiazide Diuretic, Angiotensin Converting Enzyme Inhibitor Start: 06-11-2014 End: 08-22-2017 take 1 tablet by mouth once daily Lisinopril-Hydrochlorothiazide 1 TABLET tablet Discontinued 10 mg PO DAILY August 26, 2016 12:00am August 22, 2017 11:01am hydrOXYzine hydrochloride 10 mg oral tablet (14 sources) Antihistamine Start: 03-28-2024 End: 04-19-2024 take 1 tablet by mouth at bedtime Hydroxyzine Hcl 10 mg tablet Discontinued 10 mg PO AT BEDTIME March 28, 2024 1:00am April 19, 2024 1:34pm Start: 01-28-2024 End: 03-28-2024 take 1 tablet by mouth at bedtime Hydroxyzine Hcl 25 mg tablet Discontinued 25 mg PO AT BEDTIME January 28, 2024 1:00am March 28, 2024 11:30am unsure of dose 50/50 release 24 hr methylphenidate hydrochloride 20 mg extended release oral capsule (1 source) Central Nervous System Stimulant Start: 08-11-2011 take 1 capsule by mouth once daily methylphenidate LA (RITALIN LA) 20 mg 24 hr capsule Indications: ADD (attention deficit disorder) Take 1 capsule by mouth once daily. 30 capsule 0 08/11/2011 Active Comment on above: Take 1 capsule by mo [facility] once daily. metoprolol tartrate 25 mg oral tablet (7 sources) beta-Adrenergic Taisha Start: 06-11-2014 End: 06-13-2014 take 1 tablet by mouth twice daily METOPROLOL TARTRATE 25 MG TABS One half tablet by mouth twice daily METOPROLOL TARTRATE [id number] Lita Crocker RN Start: 06-10-2011 take 1 tablet by rui th once daily metoprolol succinate XL, long acting, [...] mouth daily MULTIPLE VITAMIN Andrew Ramirez MD Multivitamin 1 EACH powder i n packet (7 sources) Start: 07-16-2019 End: 01-28-2024 Multivitamin 1 EACH powder i n packet Discontinued 1 NMA PO DAILY July 16, 2019 12:00am January 28, 2024 9:22am Start: 07-16-2019 End: 01-28-2024 Multivitamin 1 EACH powder i n packet Discontinued 1 NMA PO DAILY July 15, 2019 11:00pm January 28, 2024 8:22am OMEGA-3 FATTY ACIDS CPDR (4 sources) Start: 06-11-2014 take 1 tablet by mouth once daily OMEGA 3 CPDR One tablet by mouth daily OMEGA-3 FATTY ACIDS CPDR [id number] Lita Crocker RN Start: 06-11-2014 End: 06-13-2014 take 1 tablet by mouth once daily OMEGA 3 CPDR One tablet by mouth daily OMEGA-3 FATTY ACIDS CPDR [id number] Andrew Ramirez MD OMEGA-3 FATTY ACIDS CPDR (2 sources) Start: 06-11-2014 take 1 tablet by mouth once daily OMEGA 3 CPDR One tablet by mouth daily OMEGA-3 FATTY ACIDS CPDR [id number] Lita Crocker RN Start: 06-11-2014 End: 06-13-2014 take 1 tablet by mouth once daily OMEGA 3 CPDR One tablet by mouth daily OMEGA-3 FATTY ACIDS CPDR [id number] Andrew Ramirez MD ondansetron 4 mg disintegrating oral tablet (9 sources) Serotonin-3 Receptor Antagonist Start: 03-02-2024 End: 03-28-2024 take 1 tablet by mouth every eight hours Ondansetron 4 mg tablet,disintegrating Discontinued 4 mg PO Q8H March 02, 2024 1:00am March 28, 2024 11:31am Start: 12-15-2021 End: 12-18-2021 ondansetron 4 mg oral tablet , disintegrating [...] Date: 09/06/21 Stop Date: 09/09/21 Status: Ordered oxyCODONE hydrochloride 5 mg oral tablet (8 sources) Opioid Agonist Start: 08-05-2017 End: 08-10-2017 take 5-10 mg by mouth every four hours as needed for pain Oxycodone 5 MG tablet Discontinued 5 - 10 mg PO EVERY 4 HOURS NEEDED as needed for Severe Pain () 7 August 05, 2017 12:00am August 10, 2017 9:25pm potassium chloride 10 meq oral tablet (6 [...] TID, # 90 tab(s), 0 Refill(s), Pharmacy: [facility], 162.6, cm, 06/02/22 20:05:00 EDT, Height Start Date: 06/04/22 Stop Date: 07/04/22 Status: Ordered sulfamethoxazole 800 mg / trimethoprim 160 mg oral tablet (8 sources) Dihydrofolate Reductase Inhibitor Antibacterial, Sulfonamide Antimicrobial Start: 10-08-2014 End: 10-09-2014 Sulfamethoxazole- Trimethoprim 1 EACH tablet Discontinued 1 NMA PO TWICE A DAY October 08, 2014 12:00am October 09, 2014 10:17am Start: 10-08-2014 End: 10-09-2014 Sulfamethoxazole-Trimethopri m Discontinued 1 EACH PO TWICE A DAY October 08, 2014 12:00am October 09, 2014 10:17am venlafaxine 37.5 mg oral tablet (8 sources) Serotonin and Norepinephrine Reuptake Inhibitor Start: 06-27-2017 End: 06-28-2017 take 1 tablet by mouth once daily Venlafaxine 37.5 mg tablet Discontinued 37.5 mg PO daily June 27, 2017 12:00am June 28, 2017 4:13pm warfarin sodium 3 mg oral tablet (20 sources) Vitamin K Antagonist Start: 01-30-2020 End: 05-09-2020 take 4 mg by mouth every week Warfarin Discontinued 3 MG PO DAILY January 30, 2020 10:30pm May 09, 2020 11:52am 2.5 mg PO Thurs, Fri and Sat; take 4 mg tablet other days of week, or as directed Start: 08-16-2019 End: 05-09-2020 take 4 mg by mouth every week Warfarin 2.5 MG tablet Discontinued 3 mg PO DAILY January 30, 2020 10:30pm May 09, 2020 11:52am 2.5 mg PO Thurs, Fri and Sat; take 4 mg tablet other days of week, or as directed Please contact the information source for Protocol details. Start: 07-31-2019 End: 08-16-2019 take 1 tablet by mouth once daily Warfarin 5 mg tablet Discontinued 5 mg PO .COMPLEX July 31, 2019 12:00am August 16, 2019 5:28pm 5 mg PO daily Tue through Tuesday; 0.5 tablet (2.5 mg) Sat and Sun; OR DIRECTED Please contact the information source for Protocol details. Start: 06-05-2019 End: 07-31-2019 take 2.5 mg by mouth once daily Warfarin 4 mg tablet Discontinued 4 mg PO DAILY June 05, 2019 12:00am July 31, 2019 11:33am 2.5 mg sat and sun. Please contact the information source for Protocol details. Start: 04-09-2019 End: 06-05-2019 take 1 tablet by mouth once daily Warfarin 5 MG tablet Discontinued 5 mg PO DAILY April 09, 2019 4:07pm June 05, 2019 11:17am Please contact the information source for Protocol details. Start: 02-28-2019 End: 04-09-2019 Warfarin 5 mg tablet Discont inued 5 mg PO .COMPLEX 180 February 28, 2019 11:31am April 09, 2019 4:07pm 5 mg PO 1.5 tablets (7.5 mg) and , 5 mg daily rest of week, OR DIRECTED (dose changes frequently ); Please contact the information source for Protocol details. Start: 08-08-2018 End: 02-28-2019 Warfarin 5 mg tablet Discont inued 5 mg PO .COMPLEX 90 September 05, 2018 6:18pm February 28, 2019 11:33am 5 mg PO ThFriSatSun; take 0.5 tablet (2.5 mg) on Tue, Wed; or as directed Please contact the information source for Protocol details. Start: 04-28-2018 End: 02-28-2019 take 1 tablet by mouth once daily Warfarin 6 mg tablet Discontinued 6 mg PO DAILY 90 May 11, 2018 5:53pm February 28, 2019 11:30am Please contact the information source for Protocol details. Start: 09-30-2017 End: 09-30-2017 Warfarin 2 mg tablet Discont inued 2 mg PO .COMPLEX 45 September 30, 2017 12:00am September 30, 2017 10:25am 2 mg PO take 1 tablet on Tuesday, take 4mg tablet all other days of the week (dose changes often, so needs more tablets in case) Start: 09-22-2017 End: 08-08-2018 Warfarin 4 mg tablet Discont inued 4 mg PO .COMPLEX May 11, 2018 5:52pm August 08, 2018 8:22pm 4 mg PO dose changes often, has on hand for adjustment; Please contact the information source for Protocol details. Start: 08-05-2017 End: 08-10-2017 take 6 mg by mouth once daily Warfarin (Febtoven) 5 MG tablet Discontinued 6 mg PO DAILY@1700 August 05, 2017 2:52pm August 10, 2017 9:24pm Start: 06-29-2017 End: 08-05-2017 take 1 tablet by mouth once daily Warfarin 5 mg tablet Discontinued 5 mg PO DAILY June 29, 2017 1:30pm August 05, 2017 11:00am Start: 11-26-2014 take 1 tablet by rui th once daily COUMADIN 4 MG TABS One tablet by mouth daily at supper, or as directed WARFARIN SODIUM [id number] Jodi Wing PA-C Start: 10-22-2014 COUMADIN 2 MG TABS Take as directed-current dose is 2 mg alternating with 5 mg every other day WARFARIN SODIUM [id number] Andrew Ramirez MD Start: 10-22-2014 COUMADIN 2 MG TABS Take as directed-current dose is 2 mg alternating with 5 mg every other day WARFARIN SODIUM [id number] Andrew Ramirez MD Start: 08-01-2014 End: 06-29-2017 take 6 mg by mouth once daily Warfarin 5 MG tablet Dis continued 6 mg PO DAILY August 01, 2014 12:00am June 29, 2017 1:30pm Start: 08-01-2014 End: 06-29-2017 take 6 mg by mouth once daily Warfarin Discontinued 6 MG PO DAILY August 01, 2014 12:00am June 29, 2017 1:30pm Start: 06-13-2014 End: 11-26-2014 take 1 tablet by mouth once daily COUMADIN 5 MG TABS One tablet by mouth daily WARFARIN SODIUM [id number] Andrew Ramirez MD Start: 06-11-2014 End: 11-26-2014 COUMADIN 2.5 MG TABS Current ly takes 5 mg daily but if INR goes down, take additional 2.5 mg as directed; if INR goes up, take only 2.5 mg as directed WARFARIN SODIUM [id number] Andrew Ramirez MD Start: 06-11-2014 COUMADIN 2.5 M G TABS Take as directed WARFARIN SODIUM [id number] iLta Crocker RN Start: 10-13-2011 End: 03-28-2024 take 1 tablet by mouth once daily Warfarin 3 mg tablet Discontinued 3 mg PO DAILY December 18, 2021 12:05pm March 28, 2024 11:36am Start: 10-13-2011 warfarin (COUM BHAVANA) 3 mg tablet 60 tablet 5 10/13/2011 Active Start: 10-13-2011 warfarin (COUM BHAVANA) 2.5 mg tablet Take 7.5mg Tuesdays and 5mg all other days as directed. 60 tablet 5 10/13/2011 Active Comment on above: Take 7.5mg Tuesdays and 5mg all other days as directed. Problems Active Problems Problem Classification Problem Date Documented Da te Episodic/Chronic Acute posthemorrhagic anemia (1 source) Acute posthemorrhagic anemia; Translations: [Acute posthemorrhagic anemia] Episodic Anxiety disorders (20 sources) Posttraumatic stress disorder; Translations: [Post-traumatic stress disorder, unspecified] Onset: 1 05-19-2021 Chronic Aortic; peripheral; and visceral artery aneurysms (20 sources) Aneurysm of thoracic aorta; Translations: [Thoracic aortic aneurysm, without rupture] Onset: 9 03-19-2010 Chronic Cancer of cervix (8 sources) Malignant tumor of cervix; Translations: [Malignant neoplasm of cervix uteri, unspecified] 10-14-2017 Chronic Cardiac and circulatory congenital anomalies (8 sources) Bicuspid aortic valve; Translations: [Congenital insufficiency of aortic valve] 10-14-2017 Chronic Chronic ulcer of skin (8 sources) Non-pressure chronic ulcer of unspecified part of left lower leg with muscle involvement without evidence of necrosis; Translations: [Non-pressure chronic ulcer of left lower leg with muscle involvement without evidence] 10-14-2017 Chronic Comment on above: nonhealing traumatic hematoma ulcer left anterolateral thigh Deficiency and other anemia (1 source) Nutritional [...] childhood and adolescence] Onset: 2 07-15-2011 Chronic E Codes: Fall (8 sources) Fall; Translations: [Unspecified fall, initial encounter] 10-14-2017 Episodic Esophageal disorders (20 sources) Gastroesophageal reflux disease; Translations: [Gastro-esophageal reflux disease without esophagitis] Onset: 9 03-19-2010 Chronic Esophageal disorders (2 sources) Esophageal disorders; Translations: [Gastroesophageal reflux disease with esophagitis without hemorrhage] Onset: 4 Essential hypertension (20 sources) Hypertensive disorder; Translations: [Essential (primary) hypertension] Onset: 2 06-11-2014 Chronic Fluid and electrolyte disorders (2 sources) Hypokalemia; Translations: [Hypokalemia] Onset: 2 Episodic Gastroduodenal ulcer (except hemorrhage) (1 source) Gastric ulcer; Translations: [Gastric ulcer, unspecified as acute or chronic, without hemorrhage or perforation] Chronic Gastrointestinal hemorrhage (17 sources) Hematemesis; Translations: [Hematemesis] Onset: 5 Episodic Genitourinary symptoms and ill-defined conditions (14 sources) Urinary incontinence; Translations: [Unspecified urinary incontinence] Onset: 5 01-28-2024 Chronic Headache; including migraine (20 sources) Migraine without aura; Translations: [Migraine without aura, not intractable, without status migrainosus] Onset: 9 03-19-2010 Chronic Heart valve disorders (20 sources) Aortic valve disorder; Translations: [Rheumatic mitral valve disease, unspecified] Onset: 9 06-13-2014 Chronic Comment on above: 21mm 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 Mood disorders (20 sources) Depressive disorder; Translations: [Other specified depressive episodes] Onset: 9 03-19-2010 Chronic Nonspecific chest pain (20 sources) Chest pain; Translations: [Chest pain, unspecified] 09-10-2020 Episodic Nutritional deficiencies (20 sources) Vitamin D deficiency; Translations: [Vitamin D deficiency, unspecified] Onset: 9 03-19-2010 Chronic Open wounds of extremities (15 sources) Open wound of hip AND thigh with complication; Translations: [Unspecified open wound, left hip, initial encounter] 10-14-2017 Episodic Comment on above: open surgical hemato ma wound left anterolateral thigh with muscle involvement (vastus lateralis muscle) Other aftercare (20 sources) Long-term current use of anticoagulant; Translations: [rat exterminator (current) use of anticoagulants] Episodic Other aftercare (1 source) Drug monitoring done; Translations: [Encounter for therapeutic drug level monitoring] Episodic Other aftercare (2 sources) Long-term current use of drug therapy; Translations: [Other oysterman (current) drug therapy] Episodic Other aftercare (2 sources) assisted (current) use of anticoagulants; Translations: [rat exterminator (current) use of anticoagulants] Onset: 4 Episodic Other circulatory disease (7 sources) H/O: heart disorder; Translations: [Personal history of other diseases of the circulatory system] 12-01-2023 Episodic Other disorders of stomach and duodenum (13 sources) Gastroparesis syndrome; Translations: [Gastroparesis] 03-02-2024 Episodic Other gastrointestinal disorders (5 sources) History of bariatric surgical procedure; Translations: [Bariatric surgery status] 04-22-2023 Episodic Other gastrointestinal disorders (1 source) Diarrhea, unspecified; Translations: [Diarrhea, unspecified] Onset: 5 Episodic Other injuries and conditions due to external causes (1 source) Traumatic AND/OR non-traumatic injury; Translations: [Injury, unspecified, initial encounter] Onset: 4 Episodic Other liver diseases (1 source) Fatty (change of) liver, not elsewhere classified; Translations: [Fatty (change of) liver, not elsewhere classified] Onset: 5 Chronic Other liver diseases (1 source) Alkaline phosphatase [...] conditions (not mental disorders or infectious disease) (18 sources) Patient encounter status; Translations: [Encounter for screening for malignant neoplasm of colon] Onset: 5 10-14-2017 Episodic Residual codes; unclassified (20 sources) Obstructive sleep apnea syndrome; Translations: [Obstructive sleep apnea (adult) (pediatric)] Onset: 1 02-09-2021 Chronic Residual codes; unclassified (2 sources) Obstructive sleep apnea (adult) (pediatric); Translations: [Obstructive sleep apnea] Onset: 1 Chronic Spondylosis; intervertebral disc disorders; other back problems (14 sources) Backache; Translations: [Dorsalgia, unspecified] Onset: 3 Episodic Sprains and strains (17 sources) Lower back injury; Translations: [Strain of muscle, fascia and tendon of lower back, initial encounter] Onset: 2 Episodic Superficial injury; contusion (20 sources) Contusion of back; Translations: [Contusion of unspecified back wall of thorax, initial encounter] 02-04-2020 Episodic Comment on above: traumatic intramuscu lar hematoma left anterolateral thigh (vastus lateralis muscle) Syncope (4 sources) Syncope and collapse; Translations: [Syncope and collapse] Onset: 6 11-27-2015 Episodic Thyroid disorders (20 sources) Subacute thyroiditis; Translations: [Subacute thyroiditis] Onset: 0 03-19-2010 Chronic Unclassified (2 sources) Replacement of aortic valve ; Translations: [Presence of prosthetic heart valve] Onset: 5 06-11-2014 Unclassified (1 source) Established Patient Onset: 4 Unclassified (7 sources) As scheduled Unclassified (1 source) Low back pain, unspecified; Translations: [Low back pain, unspecified] Onset: 5 Past or Other Problems Problem Classification Problem [...] [Other microscopic hematuria] Onset: 06-18-2010 06-18-2010 Episodic Immunizations and screening for infectious disease (2 sources) Encounter for immunization; Translations: [Encounter for prophylactic rabies immune globin] Onset: 12-19-2023 Episodic Nausea and vomiting (2 sources) Vomiting; Translations: [Vomiting, unspecified] Onset: 09-06-2021 Episodic Open wounds of extremities (1 source) Open bite of right hand, initial encounter; Translations: [Open bite of right hand, initial encounter] Onset: 12-13-2023 Episodic Other aftercare (1 source) rat exterminator (current) use of bisphosphonates; Translations: [assisted (current) use of bisphosphonates] Onset: 11-30-2023 Episodic Other disorders of stomach and duodenum (2 sources) Gastroparesis; Translations: [Gastroparesis] Onset: 03-02-2024 Episodic Other gastrointestinal disorders (2 sources) Bariatric surgery status; Translations: [History of bariatric surgery] Onset: 03-11-2023 Episodic Other liver diseases (1 source) Abnormal levels of other serum enzymes; Translations: [Abnormal levels of other serum enzymes] Onset: 12-08-2023 Episodic Residual codes; unclassified (5 sources) FH: Hypertension; Translations: [Family history of ischemic heart disease and other diseases of the circulatory system] 06-11-2014 Episodic Residual codes; unclassified (1 source) Family history of ischemic heart disease and other diseases of the circulatory system; Translations: [Family history of ischemic heart disease and other diseases of the circulatory system] 06-11-2014 Episodic Unclassified (8 sources) femur surgery 09-05-2021 Urinary tract infections (1 source) Urinary tract infection, site not specified; Translations: [Urinary tract infection, site not specified] Onset: 03-28-2024 Episodic Results Test Name Value Interpretation Reference Range Facility International normalized rat io (INR) calculationon 07-06-2024 INR Coag (Bld) [Relative time] 2.6 {INR} [facility] Prothrombin Time w/INRon INR Coag (PPP) [Relative time] 2.6 {INR} Normal [facility] Comment on above: Performed By: #### L [id number] ####[facility] [address] [place], [address] PT Coag (PPP) [Time] 28.1 s High 11.7-14.9 [facility] Comment on above: Performed By: #### L 300.3900 ####[facility] [address] [place], [address] Prothrombin timeon 5 PT Coag (PPP) [Time] 28.1 s High 11.7-14.9 [facility] International normalized rat io (INR) calculationon 05-25-2024 INR Coag (Bld) [Relative time] 2.9 {INR} [facility] Prothrombin Time w/INRon INR Coag (PPP) [Relative time] 2.9 {INR} Normal [facility] Comment on above: Performed By: #### L 300.3900 #### [facility] [address] [place], [address] PT Coag (PPP) [Time] 30.9 s High 11.7-14.9 [facility] Comment on above: Performed By: #### L 300.3900 #### [facility] [address] [place], [address] Prothrombin timeon 5 PT Coag (PPP) [Time] 30.9 s High 11.7-14.9 [facility] Absolute lymphocyte countOrd ered By: Marcel Moya on 05-19-2024 Lymphocytes Auto (Unsp spec) [#/Vol] 1.68 10*3/uL 0.83-4.51 [facility] Absolute neutrophil countOrd ered By: Marcel Moya on 05-19-2024 Neutrophils (Bld) [#/Vol] 7.0 10*3/uL 2.0-7.7 [facility] Anion gap in Serum or Plasma Ordered By: Marcel Moya on 05-19-2024 Anion gap [Moles/Vol] 13 mmol/L 5-[address] [facility] Automated lymphocyte count a s percentage of total leukocytesOrdered By: Marcel Moya on 05-19-2024 Lymphocytes/100 WBC Auto (Unsp spec) 17.5 % Low 19-41 [facility] BUN/creatinine ratioOrdered By: Marcel Moya on 05-19-2024 Urea nitrogen/Creatinine [Mass ratio] 23.2 mg/mg High 10-20 [facility] Basophil percentageOrdered B y: Marcel Moya on 05-19-2024 Basophils/100 WBC (Bld) 0.3 % 0-1 [facility] Bilirubin, totalOrdered By: Marcel Moya on 05-19-2024 Bilirubin [Mass/Vol] 0.33 mg/dL 0.00-1.30 [facility] CBC W/Diff, Automatedon Absolute Lymph 1.68 X10 3/uL Normal 0.83-4.51 [facility] Comment on above: Performed By: #### L 300.3900 #### [facility] [address] [place], [address] Absolute Neut 7.0 X10 3/uL Normal 2.0-7.7 [facility] Comment on above: Performed By: #### L [id number] #### [facility] [address] [place], [address] Basophils/100 WBC (Bld) 0.3 % Normal 0-1 [facility] Comment on above: Performed By: #### L [id number] #### [facility] [address] [place], [address] Eosinophils/100 WBC (Bld) 3.3 % Normal 0-5 [facility] Comment on above: Performed By: #### L [id number] #### [facility] [address] [place], [address] Erythrocyte distribution width (RBC) [Ratio] 13.7 % Normal 11.6-14.6 [facility] Comment on above: Performed By: #### L [id number] #### [facility] [address] [place], [address] Hematocrit (Bld) [Volume fraction] 37.4 % Normal 37-47 [facility] Comment on above: Performed By: #### L 300.3900 #### [facility] [address] [place], [address] Hemoglobin (Bld) [Mass/Vol] 12.6 g/dL Normal 12.0-15.0 [facility] Comment on above: Performed By: #### L [id number] #### [facility] [address] [place], [address] IG% 0.200 Normal 0.0-0.9 [facility] Comment on above: Result Comment: IG% - Immature Granulocytes (promyelocytes, myelocytes and metamyelocytes) > 1% indicates that a LEFT SHIFT is Present. Performed By: #### L [id number] #### [facility] [address] [place], [address] Lymphocytes/100 WBC (Bld) 17.5 % Low 19-41 [facility] Comment on above: Performed By: #### L [id number] #### [facility] [address] [place], [address] MCH (RBC) [Entitic mass] 29.6 pg Normal 27.0-32.0 [facility] Comment on above: Performed By: #### L [id number] #### [facility] [address] [place], [address] MCHC (RBC) [Mass/Vol] 33.7 g/dL Normal 32-[address] [facility] Comment on above: Performed By: #### L [id number] #### [facility] [address] [place], [address] MCV (RBC) [Entitic vol] 87.8 fL Normal 81-99 [facility] Comment on above: Performed By: #### L [id number] #### [facility] [address] [place], [address] Monocytes/100 WBC (Bld) 6.1 % Normal 0-10 [facility] Comment on above: Performed By: #### L [id number] #### [facility] [address] [place], [address] Neutrophils/100 WBC (Bld) 72.6 % High 47-70 [facility] Comment on above: Performed By: #### L [id number] #### [facility] [address] [place], [address] Nucleated RBC (Bld) [#/Vol] 0 10*3/uL Normal 0-5 [facility] Comment on above: Performed By: #### L [id number] #### [facility] [address] [place], [address] Platelet mean volume (Bld) [Entitic vol] 9.7 fL Normal 6.2-12.0 [facility] Comment on above: Performed By: #### L [id number] #### [facility] [address] [place], [address] Platelets (Bld) [#/Vol] 318 10*3/uL Normal 150-450 [facility] Comment on above: Performed By: #### L [id number] #### [facility] [address] [place], [address] RBC (Bld) [#/Vol] 4.26 10*6/uL Normal 4.2-5.4 [facility] Comment on above: Performed By: #### L [id number] #### [facility] [address] [place], [address] RDW SD 44.3 fl High 35.1-43.9 [facility] Comment on above: Performed By: #### L [id number] #### [facility] [address] [place], [address] WBC (Bld) [#/Vol] 9.6 10*3/uL Normal 4.4-11.0 [facility] Comment on above: Performed By: #### L [id number] #### [facility] [address] [place], [address] Carbon dioxide, total [Moles /volume] in Central venous bloodOrdered By: Marcel Moya on 05-19-2024 CO2 [Moles/Vol] 23.0 mmol/L 21.0-32.0 [facility] Chloride assayOrdered By: Jose Moya on 05-19-2024 Chloride [Moles/Vol] 104 mmol/L 98-108 [facility] Comprehensive Metabolic Prof ilon 05-19-2024 Albumin [Mass/Vol] 4.2 g/dL Normal 3.5-5.0 [facility] Comment on above: Performed By: #### L 300.3900 #### [facility] [address] [place], [address] Albumin/Globulin [Mass ratio] 1.5 {ratio} Normal 0.9-2.4 [facility] Comment on above: Performed By: #### L [id number] #### [facility] [address] [place], [address] ALK PHOS 147 U/L High 35-104 [facility] Comment on above: Performed By: #### L [id number] #### [facility] [address] [place], [address] ALT [Catalytic activity/Vol] 23 U/L Normal <=34 [facility] Comment on above: Performed By: #### L [id number] #### [facility] [address] [place], [address] AST [Catalytic activity/Vol] 32 U/L Normal <=31 [facility] Comment on above: Performed By: #### L [id number] #### [facility] [address] [place], [address] Bilirubin [Mass/Vol] 0.33 mg/dL Normal 0.00-1.30 [facility] Comment on above: Performed By: #### L 300.3900 #### [facility] [address] [place], [address] BUN/CRE 23.2 RATIO High 10-20 [facility] Comment on above: Performed By: #### L [id number] #### [facility] [address] [place], [address] Calcium [Mass/Vol] 9.8 mg/dL Normal 7.6-11.0 [facility] Comment on above: Performed By: #### L [id number] #### [facility] [address] [place], [address] Chloride [Moles/Vol] 104 mmol/L Normal 98-108 [facility] Comment on above: Performed By: #### L [id number] #### [facility] [address] [place], [address] CO2 [Moles/Vol] 23.0 mmol/L Normal 21.0-32.0 [facility] Comment on above: Performed By: #### L [id number] #### [facility] [address] [place], [address] Creatinine [Mass/Vol] 0.93 mg/dL Normal 0.70-1.[address] [facility] Comment on above: Performed By: #### L 300.3900 #### [facility] [address] [place], [address] GAP 13 Normal 5-15 [facility] Comment on above: Performed By: #### L [id number] #### [facility] [address] [place], [address] GFR/1.73 sq M.predicted among non-blacks MDRD (S/P/Bld) [Vol rate/Area] 72 mL/min/{1.73_m2} Normal >60 [facility] Comment on above: Result Comment: mL/m in/1.73m2 CKD-EPI Creatinine Equation (2020) Performed By: #### L [id number] #### [facility] [address] [place], [address] Globulin (S) [Mass/Vol] 2.8 g/dL Normal 2.2-4.2 [facility] Comment on above: Performed By: #### L 300.3900 #### [facility] [address] [place], [address] Glucose [Mass/Vol] 129 mg/dL High 70-99 [facility] Comment on above: Performed By: #### L 300.3900 #### [facility] [address] [place], [address] Potassium [Moles/Vol] 4.2 mmol/L Normal 3.3-5.[address] [facility] Comment on above: Performed By: #### L 300.3900 #### [facility] [address] [place], [address] Sodium [Moles/Vol] 140 mmol/L Normal 133-145 [facility] Comment on above: Performed By: #### L 300.3900 #### [facility] [address] [place], [address] T PROT 7.1 g/dL Normal 5.9-8.4 [facility] Comment on above: Performed By: #### L 300.3900 #### [facility] [address] [place], [address] Urea nitrogen [Mass/Vol] 22 mg/dL High 4-19 [facility] Comment on above: Performed By: #### L 300.3900 #### [facility] [address] [place], [address] Eosinophil percentageOrdered By: Marcel Moya on 05-19-2024 Eosinophils/100 WBC (Bld) 3.3 % 0-5 [facility] Erythrocyte distribution wid th (RBC) [Ratio]Ordered By: Marcel Moya on 05-19-2024 Erythrocyte distribution width (RBC) [Entitic vol] 44.3 fL High 35.1-43.9 [facility] Erythrocyte distribution wid th ratioOrdered By: Marcel Moya on 05-19-2024 Erythrocyte distribution width (RBC) [Ratio] 13.7 % 11.6-14.6 [facility] Erythrocyte distribution wid th standard deviationOrdered By: Marcel Moya on 05-19-2024 Erythrocyte distribution width (RBC) [Ratio] 44.3 fl High 35.1-43.9 [facility] GFR/1.73 sq M.predicted alberto g non-blacks MDRD (S/P/Bld) [Vol rate/Area]Ordered By: Marcel Moya on 05-19-2024 Estimated GFR (MDRD) Non-Af Amer 72 >60 [facility] Comment on above: mL/min/1.73m2 CKD-EP I Creatinine Equation (2020) Glomerular filtration rate ( GFR) estimation/1.73 sq m using serum, plasma, or whole bOrdered By: Marcel Moya 05-19-2024 GFR/1.73 sq M.predicted among non-blacks MDRD (S/P/Bld) [Vol rate/Area] 72 mL/min/{1.73_m2} >60 [facility] Comment on above: mL/min/1.73m2 CKD-EP I Creatinine Equation (2020) Hematocrit Auto (Bld) [Volum e fraction]Ordered By: Marcel Moya on 05-19-2024 Hematocrit (Bld) [Volume fraction] 37.4 % 37-47 [facility] Hemoglobin A1con 05-19-2024 HbA1c (Bld) [Mass fraction] 5.2 % Low <=5.6 [facility] Comment on above: Performed By: #### L 871.6658 #### [facility] [place], [address] Hemoglobin A1c percentageOrd ered By: Marcel Moya on 05-19-2024 HbA1c (Bld) [Mass fraction] 5.2 % Low >5.7 [facility] Hemoglobin measurementOrdere d By: Marcel Moya on 05-19-2024 Hemoglobin (Bld) [Mass/Vol] 12.6 g/dL 12.0-15.0 [facility] Immature granulocytes/100 WB C Auto (Bld)Ordered By: Marcel Moya on 05-19-2024 Immature granulocytes/100 WBC (Bld) 0.200 % 0.0-0.9 [facility] Comment on above: IG% - Immature Granu locytes (promyelocytes, myelocytes and metamyelocytes) > 1% indicates that a LEFT SHIFT is Present. Laboratory - Chemistry and C hemistry - challengeOrdered By: Marcel Moya on 05-19-2024 AST [Catalytic activity/Vol] 32 U/L <32 [facility] Lymphocytes Auto (Unsp spec) [#/Vol]Ordered By: Marcel Moya 05-19-2024 Lymphocytes (Bld) [#/Vol] 1.68 10*3/uL 0.83-4.51 [facility] Lymphocytes/100 WBC Auto (Un sp spec)Ordered By: Marcel Moya 05-19-2024 Lymphocytes/100 WBC (Bld) 17.5 % Low 19-41 [facility] MCV (mean corpuscular volume ) determinationOrdered By: Marcel Moya 05-19-2024 MCV (RBC) [Entitic vol] 87.8 fL 81-99 [facility] Mean corpuscular hemoglobin (MCH) determinationOrdered By: Marcel Moya 05-19-2024 MCH (RBC) [Entitic mass] 29.6 pg 27.0-32.0 [facility] Mean corpuscular hemoglobin concentration (MCHC) determinationOrdered By: Marcel Moya 05-19-2024 MCHC (RBC) [Mass/Vol] 33.7 g/dL 32-[address] [facility] Mean platelet volume determi nationOrdered By: Marcel Moya 05-19-2024 Platelet mean volume (Bld) [Entitic vol] 9.7 fL 6.2-12.0 [facility] Monocyte percentageOrdered B y: Marcel Moya on 05-19-2024 Monocytes/100 WBC (Bld) 6.1 % 0-10 [facility] Neutrophil percentageOrdered By: Marcel Moya on 05-19-2024 Neutrophils/100 WBC (Bld) 72.6 % High 47-70 [facility] Nucleated red blood cell per centageOrdered By: Marcel Moya on 05-19-2024 Nucleated RBC/100 WBC (Bld) [Ratio] 0 % 0-5 [facility] Platelet countOrdered By: Jose Moya on 05-19-2024 Platelets (Bld) [#/Vol] 318 10*3/uL 150-450 [facility] Potassium (Unsp spec) [Mass/ Vol]Ordered By: Marcel Moya on 05-19-2024 Potassium [Moles/Vol] 4.2 mmol/L 3.3-5.[address] [facility] Potassium measurement (mass/ volume)Ordered By: Marcel Moya on 05-19-2024 Potassium (Unsp spec) [Mass/Vol] 4.2 mmol/L 3.3-5.1 [facility] RBC Auto (Bld) [#/Vol]Ordere d By: Marcel Moya on 05-19-2024 RBC (Bld) [#/Vol] 4.26 10*6/uL 4.2-5.4 [facility] Serum creatinine measurement (mass/volume)Ordered By: Marcel Moya 05-19-2024 Creatinine [Mass/Vol] 0.93 mg/dL 0.70-1.[address] [facility] Serum globulin measurementOr dered By: Marcel Moya 05-19-2024 Globulin (S) [Mass/Vol] 2.8 g/dL 2.2-4.2 [facility] Serum glucose measurement (m ass/volume)Ordered By: Marcel Moya 05-19-2024 Glucose [Mass/Vol] 129 mg/dL High 70-99 [facility] Serum or plasma alanine foster otransferase (ALT) measurementOrdered By: Marcel Moya 05-19-2024 ALT [Catalytic activity/Vol] 23 U/L <35 [facility] Serum or plasma albumin tika urement (mass/volume)Ordered By: Marcel Moya 05-19-2024 Albumin [Mass/Vol] 4.2 g/dL 3.5-5.0 [facility] Serum or plasma albumin/glob ulin mass ratioOrdered By: Marcel Moya on 05-19-2024 Albumin/Globulin [Mass ratio] 1.5 {ratio} 0.9-2.4 [facility] Serum or plasma alkaline roberto sphatase measurementOrdered By: Marcel Moya on 05-19-2024 ALP [Catalytic activity/Vol] 147 U/L High 35-104 [facility] Serum or plasma calcium tika urement (mass/volume)Ordered By: Marcel Moya on 05-19-2024 Calcium [Mass/Vol] 9.8 mg/dL 7.6-11.0 [facility] Serum or plasma urea nitroge n measurement (mass/volume)Ordered By: Marcel Moya on 05-19-2024 Urea nitrogen [Mass/Vol] 22 mg/dL High 4-19 [facility] Sodium levelOrdered By: Marcel Moya 05-19-2024 Sodium [Moles/Vol] 140 mmol/L 133-145 [facility] Total proteinOrdered By: Marcel Moya 05-19-2024 Protein [Mass/Vol] 7.1 g/dL 5.9-8.4 [facility] Vitamin D, 25-hydroxyOrdered By: Marcel Moya on 05-19-2024 Vitamin D 25-Hydroxy 26.3 ng/mL Low 30-100 [facility] Comment on above: Vitamin D StatusDefi ciency: <20 ng/mL (50nmol/L)Insufficiency: 20-30 ng/mL (50-75 nmol/L)Sufficiency: 30-100 ng/mL (75-250 nmol/L)Toxicity: >100 ng/mL (>250 nmol/L) Vitamin D,25 Hydroxyon 05-19 Vitamin D 25-OH 26.3 ng/mL Low 30-100 [facility] Comment on above: Result Comment: Mona min D Status Deficiency: <20 ng/mL (50nmol/L) Insufficiency: 20-30 ng/mL (50-75 nmol/L) Sufficiency: 30-100 ng/mL (75-250 nmol/L) Toxicity: >100 ng/mL (>250 nmol/L) Performed By: #### L 300.3900 #### [facility] [address] [place], [place], [id number] White blood cell (WBC) count Ordered By: Marcel Moya on 05-19-2024 WBC (Bld) [#/Vol] 9.6 10*3/uL 4.4-11.0 [facility] International normalized rat io (INR) calculationon 05-04-2024 INR Coag (Bld) [Relative time] 3.4 {INR} [facility] Prothrombin Time w/INRon INR Coag (PPP) [Relative time] 3.4 {INR} Normal [facility] Comment on above: Performed By: #### L 300.3900 #### [facility] [address] [place], [place], [id number] PT Coag (PPP) [Time] 35.4 s High 11.7-14.9 [facility] Comment on above: Performed By: #### L 300.3900 #### [facility] [address] [place], [place], [address] Prothrombin timeon PT Coag (PPP) [Time] 35.4 s High 11.7-14.9 [facility] Ova and Parasites 8623on OP ORDERED C BC AND PT ORDERED CBCD, CMP ALL STOOLS OVA AND PARASITES EXAM, ROUTINE These results were obtained using wet preparation(s) and trichrome stained smear. This test does not include testing for Crytosporidium parvum, Cyclospora, or Microsporidia. One negative specimen does not rule out the possibility of a parasitic infection. _ TESTING PERFORMED AT [facility]. ORIGINAL REPORT ON FILE IN LAB CONTAINS ADDITIONAL TEST SITE INFORMATION. _ Ova/Parasite Exam NO OVA, CYSTS, OR PARASITES FOUND. Normal [facility] Comment on above: Performed By: #### L 300.3900, L100.0500 #### [facility] [address] [place], [address] Urine Cultureon 04-21-2024 [facility] Mixed Gram Pos Gram Neg Org [place] Count 11,000-25,000 [facility] Mixed contaminants. Submit a new specimen if indicated. Normal [facility] Comment on above: Performed By: #### L 300.3900, L100.0500 #### [facility] [address] [place], [address] Abdomen/Pelvis WITH Contrast on 04-19-2024 Abdomen/Pelvis WITH Contrast [facility] [address] [place] [address] Abdomen/Pelvis WITH Contrast MR#: [id number] Acct: [id number] Name: GARDENIA MUJICA Rep #: [id number] : 1965 F 58 From: Mejia Mansfield MD PCP: Dr. Marcel Moya MD Status: REG CLI Study: Abdomen/Pelvis WITH Contrast Date of Exam: 08/08 Exam# [id number] Ordering Dr: Marcel Moya MD PROCEDURE: ABDOMEN/PELVIS WITH CONTRAST REASON FOR EXAM: Unspecified abdominal pain. Per technologist report, diarrhea x3 weeks. TECHNIQUE: CT abdomen and pelvis was performed with IV contrast. Multiplanar reformats were generated. PO contrast was administered. IV CONTRAST: 98 mL Isovue-300 COMPARISON: 04/05/2024. FINDINGS: Lung bases: Sternotomy. Partially imaged aortic valvular prosthesis. Coronary atherosclerosis and/or stents. Small hiatal hernia. Fluid in the distal esophagus suggesting gastroesophageal reflux. Liver: Unremarkable. Spleen: Mild splenomegaly, 13.5 cm. Tiny hypodensity inferolaterally, too small to characterize, likely a cyst or hemangioma in the absence of known malignancy, also present 02/03/2020 but increased in conspicuity. Gallbladder: Cholecystectomy. Pancreas: Unremarkable. Adrenals: Unremarkable. Kidneys: Unremarkable. Bowel: Jose Ramon-en-Y gastric bypass.. The gastrojejunostomy and jejunojejunostomy are not well seen however the configuration is similar to prior. Similarly distended gastric pouch. Contrast noted to be within the excluded stomach and does not appear to have refluxed retrograde from the jejunal jejunostomy given that the duodenum is not opacified. Opacification of the gastric pouch also present to a lesser degree. No bowel dilatation or convincing inflammation. Liquid contents of the colon suggesting malabsorption/diarrhea. Oral contrast reaches the level of the colon. Normal caliber appendix. Lymph nodes: Unremarkable. Vasculature: Atherosclerosis.. Peritoneum: Trace pelvic free fluid, decreased from prior. Bladder: Underdistended and suboptimally evaluated, grossly unremarkable. Reproductive Organs: Hysterectomy. Tubal ligation clips. Body Wall: Operative changes. Tiny fat containing midline supraumbilical presumably incisional hernia. Bones: Mild spondylosis. Grade 1 anterolisthesis L5-S1 is likely degenerative. Partially imaged left femoral intramedullary hardware. CT/Abdomen/Pelvis WITH Contrast IMPRESSION: 1. Liquid contents of the colon suggesting malabsorption/diarrhea. No convincing inflammation to suggest colitis. 2. Jose Ramon-en-Y gastric bypass with suspected reversal. If reversal has not been performed, findings suggest gastrogastric fistula. Distention of the gastric pouch is noted and could suggest some degree of stenosis at the reversal site if reversal has been performed, however the appearance is similar to prior. Correlate with surgical history. 3. Trace nonspecific pelvic free fluid, potentially physiologic if the patient is premenopausal. 4. Mild splenomegaly. 5. Additional description as above. Reading Location: [id number] CC: Dr. Marcel Moya MD Sql Programmer: Signed Normal [facility] Absolute lymphocyte countOrd ered By: Marcel Moya on 04-19-2024 Lymphocytes Auto (Unsp spec) [#/Vol] 0.72 10*3/uL Low 0.83-4.51 [facility] Absolute neutrophil countOrd ered By: Marcel Moya on 04-19-2024 Neutrophils (Bld) [#/Vol] 4.1 10*3/uL 2.0-7.7 [facility] Anion gap in Serum or Plasma Ordered By: Marcel Moya on 04-19-2024 Anion gap [Moles/Vol] 13 mmol/L 5-[address] [facility] Automated lymphocyte count a s percentage of total leukocytesOrdered By: Marcel Griffin on 04-19-2024 Lymphocytes/100 WBC Auto (Unsp spec) 13.0 % Low 19-41 [facility] BUN/creatinine ratioOrdered By: Marcel Moya on 04-19-2024 Urea nitrogen/Creatinine [Mass ratio] 20.8 mg/mg High 10-20 [facility] Basophil percentageOrdered B y: Marcel Moya on 04-19-2024 Basophils/100 WBC (Bld) 0.2 % 0-1 [facility] Bilirubin, totalOrdered By: Marcel Moya on 04-19-2024 Bilirubin [Mass/Vol] 0.60 mg/dL 0.00-1.30 [facility] C. difficile DNA BRENDAN+probe Q l (Unsp spec)Ordered By: Marcel Moya on 04-19-2024 Clostridioides difficile (PCR) [facility] Clostridioides difficile (PCR) [facility] CBC W/Diff, Automatedon 03- Absolute Lymph 0.72 X10 3/uL Low 0.83-4.51 [facility] Comment on above: Order Comment: DR.ST LAGOS ORDERED CBC AND PTDR.GRIFFIN ORDERED CBCD, CMP ALL STOOLS Performed By: #### L 300.3900, L100.0500 #### [facility] [address] [place], [address] Absolute Neut 4.1 X10 3/uL Normal 2.0-7.7 [facility] Comment on above: Order Comment: DR.ST LAGOS ORDERED CBC AND PTDR.GRIFFIN ORDERED CBCD, CMP ALL STOOLS Performed By: #### L 300.3900, L100.0500 #### [facility] [address] [place], [address] Basophils/100 WBC (Bld) 0.2 % Normal 0-1 [facility] Comment on above: Order Comment: DR.ST LAGOS ORDERED CBC AND PTDR.GRIFFIN ORDERED CBCD, CMP ALL STOOLS Performed By: #### L 300.3900, L100.0500 #### [facility] [address] [place], [address] Eosinophils/100 WBC (Bld) 7.0 % High 0-5 [facility] Comment on above: Order Comment: DR.ST LAGOS ORDERED CBC AND PTDR.GRIFFIN ORDERED CBCD, CMP ALL STOOLS Performed By: #### L 300.3900, L100.0500 #### [facility] [address] [place], [address] Erythrocyte distribution width (RBC) [Ratio] 14.3 % Normal 11.6-14.6 [facility] Comment on above: Order Comment: DR.ST LAGOS ORDERED CBC AND PTDR.GRIFFIN ORDERED CBCD, CMP ALL STOOLS Performed By: #### L 300.3900, L100.0500 #### [facility] [address] [place], [address] Hematocrit (Bld) [Volume fraction] 40.0 % Normal 37-47 [facility] Comment on above: Order Comment: DR.ST LAGOS ORDERED CBC AND PTDR.GRIFFIN ORDERED CBCD, CMP ALL STOOLS Performed By: #### L 300.3900, L100.0500 #### [facility] [address] [place], [address] Hemoglobin (Bld) [Mass/Vol] 13.7 g/dL Normal 12.0-15.0 [facility] Comment on above: Order Comment: DR.ST LAGOS ORDERED CBC AND PTDR.GRIFFIN ORDERED CBCD, CMP ALL STOOLS Performed By: #### L 300.3900, L100.0500 #### [facility] [address] [place], [address] IG% 0.200 Normal 0.0-0.9 [facility] Comment on above: Order Comment: DR.ST LAGOS ORDERED CBC AND PTDR.GRIFFIN ORDERED CBCD, CMP ALL STOOLS Result Comment: IG% - Immature Granulocytes (promyelocytes, myelocytes and metamyelocytes) > 1% indicates that a LEFT SHIFT is Present. Performed By: #### L 300.3900, L100.0500 #### [facility] [address] [place], [address] Lymphocytes/100 WBC (Bld) 13.0 % Low 19-41 [facility] Comment on above: Order Comment: DR.ST LAGOS ORDERED CBC AND PTDR.GRIFFIN ORDERED CBCD, CMP ALL STOOLS Performed By: #### L 300.3900, L100.0500 #### [facility] [address] [place], [address] MCH (RBC) [Entitic mass] 29.8 pg Normal 27.0-32.0 [facility] Comment on above: Order Comment: DR.ST LAGOS ORDERED CBC AND PTDR.GRIFFIN ORDERED CBCD, CMP ALL STOOLS Performed By: #### L 300.3900, L100.0500 #### [facility] [address] [place], [address] MCHC (RBC) [Mass/Vol] 34.3 g/dL Normal 32-[address] [facility] Comment on above: Order Comment: DR.ST LAGOS ORDERED CBC AND PTDR.GRIFFIN ORDERED CBCD, CMP ALL STOOLS Performed By: #### L 300.3900, L100.0500 #### [facility] [address] [place], [address] MCV (RBC) [Entitic vol] 87.1 fL Normal 81-99 [facility] Comment on above: Order Comment: DR.ST LAGOS ORDERED CBC AND PTDR.GRIFFIN ORDERED CBCD, CMP ALL STOOLS Performed By: #### L 300.3900, L100.0500 #### [facility] [address] [place], [address] Monocytes/100 WBC (Bld) 6.5 % Normal 0-10 [facility] Comment on above: Order Comment: DR.ST LAGOS ORDERED CBC AND PTDR.GRIFFIN ORDERED CBCD, CMP ALL STOOLS Performed By: #### L 300.3900, L100.0500 #### [facility] [address] [place], [address] Neutrophils/100 WBC (Bld) 73.1 % High 47-70 [facility] Comment on above: Order Comment: DR.ST LAGOS ORDERED CBC AND PTDR.GRIFFIN ORDERED CBCD, CMP ALL STOOLS Performed By: #### L 300.3900, L100.0500 #### [facility] [address] [place], [address] Nucleated RBC (Bld) [#/Vol] 0 10*3/uL Normal 0-5 [facility] Comment on above: Order Comment: DR.ST LAGOS ORDERED CBC AND PTDR.GRIFFIN ORDERED CBCD, CMP ALL STOOLS Performed By: #### L 300.3900, L100.0500 #### [facility] [address] [place], [address] Platelet mean volume (Bld) [Entitic vol] 9.4 fL Normal 6.2-12.0 [facility] Comment on above: Order Comment: DR.ST LAGOS ORDERED CBC AND PTDR.GRIFFIN ORDERED CBCD, CMP ALL STOOLS Performed By: #### L 300.3900, L100.0500 #### [facility] [address] [place], [address] Platelets (Bld) [#/Vol] 322 10*3/uL Normal 150-450 [facility] Comment on above: Order Comment: DR.ST LAGOS ORDERED CBC AND PTDR.GRIFFIN ORDERED CBCD, CMP ALL STOOLS Performed By: #### L 300.3900, L100.0500 #### [facility] [address] [place], [address] RBC (Bld) [#/Vol] 4.59 10*6/uL Normal 4.2-5.4 [facility] Comment on above: Order Comment: DR.ST LAGOS ORDERED CBC AND PTDR.GRIFFIN ORDERED CBCD, CMP ALL STOOLS Performed By: #### L 300.3900, L100.0500 #### [facility] [address] [place], [address] RDW SD 45.1 fl High 35.1-43.9 [facility] Comment on above: Order Comment: DR.ST LAGOS ORDERED CBC AND PTDR.GRIFFIN ORDERED CBCD, CMP ALL STOOLS Performed By: #### L 300.3900, L100.0500 #### [facility] [address] [place], [address] WBC (Bld) [#/Vol] 5.5 10*3/uL Normal 4.4-11.0 [facility] Comment on above: Order Comment: DR.ST LAGOS ORDERED CBC AND PTDR.GRIFFIN ORDERED CBCD, CMP ALL STOOLS Performed By: #### L 300.3900, L100.0500 #### [facility] [address] [place], [address] CDIFF (PCR)on 04-19-2024 CDIFF ORDERED C BC AND PT ORDERED CBCD, CMP ALL STOOLS Pending 027 027 NAP1-B1 Presumptive Negative *for epidemiolologic???use C. Diff PCR Negative- No toxigenic C. Diff Detected Normal [facility] Comment on above: Performed By: #### L 300.3900, L100.0500 #### [facility] [address] [place], [address] Carbon dioxide, total [Moles /volume] in Central venous bloodOrdered By: Marcel Moya on 04-19-2024 CO2 [Moles/Vol] 22.7 mmol/L 21.0-32.0 [facility] Chloride assayOrdered By: Jose Moya on 04-19-2024 Chloride [Moles/Vol] 106 mmol/L 98-108 [facility] Clostridium difficile detect ion by polymerase chain reactionOrdered By: Marcel Moya on 04-19-2024 C. difficile DNA BRENDAN+probe Ql (Unsp spec) [facility] Comprehensive Metabolic Prof ilon 04-19-2024 Albumin [Mass/Vol] 4.1 g/dL Normal 3.5-5.0 [facility] Comment on above: Order Comment: DR.ST LAGOS ORDERED CBC AND PTDR.GRIFFIN ORDERED CBCD, CMP ALL STOOLS Performed By: #### L 300.3900, L100.0500 #### [facility] [address] [place], [address] Albumin/Globulin [Mass ratio] 1.3 {ratio} Normal 0.9-2.4 [facility] Comment on above: Order Comment: DR.ST LAGOS ORDERED CBC AND PTDR.GRIFFIN ORDERED CBCD, CMP ALL STOOLS Performed By: #### L 300.3900, L100.0500 #### [facility] [address] [place], [address] ALK PHOS 143 U/L High 35-104 [facility] Comment on above: Order Comment: DR.ST LAGOS ORDERED CBC AND PTDR.GRIFFIN ORDERED CBCD, CMP ALL STOOLS Performed By: #### L 300.3900, L100.0500 #### [facility] [address] [place], [address] ALT [Catalytic activity/Vol] 24 U/L Normal <=34 [facility] Comment on above: Order Comment: DR.ST LAGOS ORDERED CBC AND PTDR.GRIFFIN ORDERED CBCD, CMP ALL STOOLS Performed By: #### L 300.3900, L100.0500 #### [facility] [address] [place], [address] AST [Catalytic activity/Vol] 38 U/L High <=31 [facility] Comment on above: Order Comment: DR.ST LAGOS ORDERED CBC AND PTDR.GRIFFIN ORDERED CBCD, CMP ALL STOOLS Performed By: #### L 300.3900, L100.0500 #### [facility] [address] [place], [address] Bilirubin [Mass/Vol] 0.60 mg/dL Normal 0.00-1.30 [facility] Comment on above: Order Comment: DR.ST LAGOS ORDERED CBC AND PTDR.GRIFFIN ORDERED CBCD, CMP ALL STOOLS Performed By: #### L 300.3900, L100.0500 #### [facility] [address] [place], [address] BUN/CRE 20.8 RATIO High 10-20 [facility] Comment on above: Order Comment: DR.ST LAGOS ORDERED CBC AND PTDR.GRIFFIN ORDERED CBCD, CMP ALL STOOLS Performed By: #### L 300.3900, L100.0500 #### [facility] [address] [place], [address] Calcium [Mass/Vol] 9.4 mg/dL Normal 7.6-11.0 [facility] Comment on above: Order Comment: DR.ST LAGOS ORDERED CBC AND PTDR.GRIFFIN ORDERED CBCD, CMP ALL STOOLS Performed By: #### L 300.3900, L100.0500 #### [facility] [address] [place], [address] Chloride [Moles/Vol] 106 mmol/L Normal 98-108 [facility] Comment on above: Order Comment: DR.ST LAGOS ORDERED CBC AND PTDR.GRIFFIN ORDERED CBCD, CMP ALL STOOLS Performed By: #### L 300.3900, L100.0500 #### [facility] [address] [place], [address] CO2 [Moles/Vol] 22.7 mmol/L Normal 21.0-32.0 [facility] Comment on above: Order Comment: DR.ST LAGOS ORDERED CBC AND PTDR.GRIFFIN ORDERED CBCD, CMP ALL STOOLS Performed By: #### L 300.3900, L100.0500 #### [facility] [address] [place], [address] Creatinine [Mass/Vol] 0.79 mg/dL Normal 0.70-1.[address] [facility] Comment on above: Order Comment: DR.ST LAGOS ORDERED CBC AND PTDR.GRIFFIN ORDERED CBCD, CMP ALL STOOLS Performed By: #### L 300.3900, L100.0500 #### [facility] [address] [place], [address] GAP 13 Normal 5-15 [facility] Comment on above: Order Comment: DR.ST LAGOS ORDERED CBC AND PTDR.GRIFFIN ORDERED CBCD, CMP ALL STOOLS Performed By: #### L 300.3900, L100.0500 #### [facility] [address] [place], [address] GFR/1.73 sq M.predicted among non-blacks MDRD (S/P/Bld) [Vol rate/Area] 87 mL/min/{1.73_m2} Normal >60 [facility] Comment on above: Order Comment: DR.ST LAGOS ORDERED CBC AND PTDR.GRIFFIN ORDERED CBCD, CMP ALL STOOLS Result Comment: mL/m in/1.73m2 CKD-EPI Creatinine Equation (2020) Performed By: #### L 300.3900, L100.0500 #### [facility] [address] [place], [address] Globulin (S) [Mass/Vol] 3.2 g/dL Normal 2.2-4.2 [facility] Comment on above: Order Comment: DR.ST LAGOS ORDERED CBC AND PTDR.GRIFFIN ORDERED CBCD, CMP ALL STOOLS Performed By: #### L 300.3900, L100.0500 #### [facility] [address] [place], [address] Glucose [Mass/Vol] 99 mg/dL Normal 70-99 [facility] Comment on above: Order Comment: DR.ST LAGOS ORDERED CBC AND PTDR.GRIFFIN ORDERED CBCD, CMP ALL STOOLS Performed By: #### L 300.3900, L100.0500 #### [facility] [address] [place], [address] Potassium [Moles/Vol] 3.7 mmol/L Normal 3.3-5.[address] [facility] Comment on above: Order Comment: DR.ST LAGOS ORDERED CBC AND PTDR.GRIFFIN ORDERED CBCD, CMP ALL STOOLS Performed By: #### L 300.3900, L100.0500 #### [facility] [address] [place], [address] Sodium [Moles/Vol] 141 mmol/L Normal 133-145 [facility] Comment on above: Order Comment: DR.ST LAGOS ORDERED CBC AND PTDR.GRIFFIN ORDERED CBCD, CMP ALL STOOLS Performed By: #### L 300.3900, L100.0500 #### [facility] [address] [place], [address] T PROT 7.3 g/dL Normal 5.9-8.4 [facility] Comment on above: Order Comment: DR.ST LAGOS ORDERED CBC AND PTDR.GRIFFIN ORDERED CBCD, CMP ALL STOOLS Performed By: #### L 300.3900, L100.0500 #### [facility] [address] [place], [address] Urea nitrogen [Mass/Vol] 16 mg/dL Normal 4-19 [facility] Comment on above: Order Comment: DR.ST LAGOS ORDERED CBC AND PTDR.GRIFFIN ORDERED CBCD, CMP ALL STOOLS Performed By: #### L 300.3900, L100.0500 #### [facility] [address] [place], [address] ENTERIC PATHOGEN PANEL STOOL on 04-19-2024 EP PANEL ORDERED C BC AND PT ORDERED CBCD, CMP ALL STOOLS Results called on 04/19/24-1426 by BLUCAS to ([facility] LEFT) [phone]. Normal Reference Range = Not Detected Norovirus Gl/Gll detected. Contact precautions should be followed for these patients and limit exposure to others since spread of disease is common. Treatment is often not needed for this pathogen. This is an amplified DNA test which makes it both specific and sensitive. Copy of report sent to Infection Control Printer [id number] 04/19/24 1420 BLUCAS. CAMPYLOBACTER Not Detected Norovirus A Norovirus Detected A Rotavirus Not Detected Salmonella Not Detected Shiga Toxin Not Detected Shigella sp. Not Detected VIBRIO Not Detected Yersinia Not Detected Norovirus Normal [facility] Comment on above: Performed By: #### L 300.3900, L100.0500 #### [facility] [address] [place] [address], [address] Eosinophil percentageOrdered By: Marcel Moya on 04-19-2024 Eosinophils/100 WBC (Bld) 7.0 % High 0-5 [facility] Erythrocyte distribution wid th ratioOrdered By: Marcel Moya on 04-19-2024 Erythrocyte distribution width (RBC) [Ratio] 14.3 % 11.6-14.6 [facility] Erythrocyte distribution wid th standard deviationOrdered By: Marcel Moya on 04-19-2024 Erythrocyte distribution width (RBC) [Entitic vol] 45.1 fL High 35.1-43.9 [facility] Erythrocyte distribution width (RBC) [Ratio] 45.1 fl High 35.1-43.9 [facility] GFR/1.73 sq M.predicted alberto g non-blacks MDRD (S/P/Bld) [Vol rate/Area]Ordered By: Marcel Moya on 04-19-2024 Estimated GFR (MDRD) Non-Af Amer 87 >60 [facility] Comment on above: mL/min/1.73m2 CKD-EP I Creatinine Equation (2020) Glomerular filtration rate ( GFR) estimation/1.73 sq m using serum, plasma, or whole bOrdered By: Marcel Moya on 04-19-2024 GFR/1.73 sq M.predicted among non-blacks MDRD (S/P/Bld) [Vol rate/Area] 87 mL/min/{1.73_m2} >60 [facility] Comment on above: mL/min/1.73m2 CKD-EP I Creatinine Equation (2020) Hematocrit Auto (Bld) [Volum e fraction]Ordered By: Marcel Moya on 04-19-2024 Hematocrit (Bld) [Volume fraction] 40.0 % 37-47 [facility] Hemoglobin measurementOrdere d By: Marcel Moya on 04-19-2024 Hemoglobin (Bld) [Mass/Vol] 13.7 g/dL 12.0-15.0 [facility] Immature granulocytes/100 WB C Auto (Bld)Ordered By: Marcel Moya on 04-19-2024 Immature granulocytes/100 WBC (Bld) 0.200 % 0.0-0.9 [facility] Comment on above: IG% - Immature Granu locytes (promyelocytes, myelocytes and metamyelocytes) > 1% indicates that a LEFT SHIFT is Present. International normalized rat io (INR) calculationOrdered By: Marcel Moya on 04-19-2024 INR Coag (Bld) [Relative time] 2.1 {INR} [facility] - Chemistry and C hemistry - challengeOrdered By: Marcel Moya on 04-19-2024 AST [Catalytic activity/Vol] 38 U/L High <32 [facility] Lactoferrin IA Ql (Stl)Order ed By: Marcel Moya on 04-19-2024 Stool Lactoferrin [facility] Stool Lactoferrin [facility] Lower GI hemoglobin IA Ql (S tl)Ordered By: Marcel Moya on 04-19-2024 Stool Occult Blood (CORI) Positive Abnormal [facility] Stool Occult Blood (CORI) Positive Abnormal [facility] Lymphocytes Auto (Unsp spec) [#/Vol]Ordered By: Marcel Moya 04-19-2024 Lymphocytes (Bld) [#/Vol] 0.72 10*3/uL Low 0.83-4.51 [facility] Lymphocytes/100 WBC Auto (Un sp spec)Ordered By: Marcel Moya on 04-19-2024 Lymphocytes/100 WBC (Bld) 13.0 % Low 19-41 [facility] MCV (mean corpuscular volume ) determinationOrdered By: Marcel Moya on 04-19-2024 MCV (RBC) [Entitic vol] 87.1 fL 81-99 [facility] Mean corpuscular hemoglobin (MCH) determinationOrdered By: Marcel Tannerok on 04-19-2024 MCH (RBC) [Entitic mass] 29.8 pg 27.0-32.0 [facility] Mean corpuscular hemoglobin concentration (MCHC) determinationOrdered By: Marcel Moya on 04-19-2024 MCHC (RBC) [Mass/Vol] 34.3 g/dL 32-[address] [facility] Mean platelet volume determi nationOrdered By: Marcel Moya on 04-19-2024 Platelet mean volume (Bld) [Entitic vol] 9.4 fL 6.2-12.0 [facility] Monocyte percentageOrdered B y: Marcel Moya on 04-19-2024 Monocytes/100 WBC (Bld) 6.5 % 0-10 [facility] Neutrophil percentageOrdered By: Marcel Tannerok on 04-19-2024 Neutrophils/100 WBC (Bld) 73.1 % High 47-70 [facility] Nucleated red blood cell per centageOrdered By: Marcel Tannerok on 04-19-2024 Nucleated RBC/100 WBC (Bld) [Ratio] 0 % 0-5 [facility] Ova and parasitesOrdered By: Marcel Tannerok on 04-19-2024 Ova and Parasites [facility] Platelet countOrdered By: Jose Moya on 04-19-2024 Platelets (Bld) [#/Vol] 322 10*3/uL 150-450 [facility] Potassium (Unsp spec) [Mass/ Vol]Ordered By: Marcel Moya on 04-19-2024 Potassium [Moles/Vol] 3.7 mmol/L 3.3-5.[address] [facility] Potassium measurement (mass/ volume)Ordered By: Marcel Moya on 04-19-2024 Potassium (Unsp spec) [Mass/Vol] 3.7 mmol/L 3.3-5.1 [facility] Prothrombin Time w/INRon INR Coag (PPP) [Relative time] 2.1 {INR} Normal [facility] Comment on above: Order Comment: DR.ST LAGOS ORDERED CBC AND PTDR.GRIFFIN ORDERED CBCD, CMP ALL STOOLS Performed By: #### L 300.3900, L100.0500 #### [facility] [address] [place], [place], [address] ([phone]) PT Coag (PPP) [Time] 24.0 s High 11.7-14.9 [facility] Comment on above: Order Comment: DR.ST LAGOS ORDERED CBC AND PTDR.GRIFFIN ORDERED CBCD, CMP ALL STOOLS Performed By: #### L 300.3900, L100.0500 #### [facility] [address] [facility] [place], [place], [id number] Prothrombin timeOrdered By: Marcel Moya on 04-19-2024 PT Coag (PPP) [Time] 24.0 s High 11.7-14.9 [facility] RBC Auto (Bld) [#/Vol]Ordere d By: Marcel Moya on 04-19-2024 RBC (Bld) [#/Vol] 4.59 10*6/uL 4.2-5.4 [facility] Serum creatinine measurement (mass/volume)Ordered By: Marcel Moya on 04-19-2024 Creatinine [Mass/Vol] 0.79 mg/dL 0.70-1.[address] [facility] Serum globulin measurementOr dered By: Marcel Moya 04-19-2024 Globulin (S) [Mass/Vol] 3.2 g/dL 2.2-4.2 [facility] Serum glucose measurement (m ass/volume)Ordered By: Marcel Moya on 04-19-2024 Glucose [Mass/Vol] 99 mg/dL 70-99 [facility] Serum or plasma alanine foster otransferase (ALT) measurementOrdered By: Mracel Moya 04-19-2024 ALT [Catalytic activity/Vol] 24 U/L <35 [facility] Serum or plasma albumin tika urement (mass/volume)Ordered By: Marcel Moya on 04-19-2024 Albumin [Mass/Vol] 4.1 g/dL 3.5-5.0 [facility] Serum or plasma albumin/glob ulin mass ratioOrdered By: Marcel Moya on 04-19-2024 Albumin/Globulin [Mass ratio] 1.3 {ratio} 0.9-2.4 [facility] Serum or plasma alkaline roberto sphatase measurementOrdered By: Marcel Moya on 04-19-2024 ALP [Catalytic activity/Vol] 143 U/L High 35-104 [facility] Serum or plasma calcium tika urement (mass/volume)Ordered By: Marcel Moya on 04-19-2024 Calcium [Mass/Vol] 9.4 mg/dL 7.6-11.0 [facility] Serum or plasma urea nitroge n measurement (mass/volume)Ordered By: Marcel Moya on 04-19-2024 Urea nitrogen [Mass/Vol] 16 mg/dL 4-19 [facility] Sodium levelOrdered By: Marcel Moya on 04-19-2024 Sodium [Moles/Vol] 141 mmol/L 133-145 [facility] Stool Lactoferrin/WBCon WBCST ORDERED C BC AND PT ORDERED CBCD, CMP ALL STOOLS Normal Reference Range = Negative Fecal WBC Lactoferrin A Positive: Fecal WBC Lactoferrin present A Normal [facility] Comment on above: Performed By: #### L 300.3900, L100.0500 #### [facility] [address] [place], [address] Stool Occult Blood iFOBon STOB ORDERED C BC AND PT ORDERED CBCD, CMP ALL STOOLS Normal Reference Range = Negative Immunochemical Fecal Occult Blood (iFOBT) method. Hemoccult Stl Ql IA Limitation: Menstrual bleeding, constipation bleeding, bleeding hemorrhoids, and urinary bleeding conditions may interfere with test. Occult Blood A Positive A OCCULT BLOOD POSITIVE Normal [facility] Comment on above: Performed By: #### L 300.3900, L100.0500 #### [facility] [address] [place], [address] Stool enteric pathogen panel by probe and target amplification methodOrdered By: Marcel Moya on 04-19-2024 Enteric Bacteriology Norovirus Abnormal [facility] Enteric Bacteriology Norovirus Abnormal [facility] Stool gastrointestinal hemog lobin detection by immunologic methodOrdered By: Marcel Moya on 04-19-2024 Lower GI hemoglobin IA Ql (Stl) Positive Abnormal [facility] Stool lactoferrin detection by immunoassayOrdered By: Marcel Moya on 04-19-2024 Lactoferrin IA Ql (Stl) [facility] Total proteinOrdered By: Marcel Moya on 04-19-2024 Protein [Mass/Vol] 7.3 g/dL 5.9-8.4 [facility] Urine cultureOrdered By: Marcel Moya on 04-19-2024 Bacteria identified Cx Nom (U) Mixed Gram Pos & Gram Neg Org Abnormal [facility] White blood cell (WBC) count Ordered By: Marcel Moya on 04-19-2024 WBC (Bld) [#/Vol] 5.5 10*3/uL 4.4-11.0 [facility] ABD Limited w/ Elastographyo n 04-17-2024 ABD Limited w/ Elastography [facility] [address] [place] [address] ABD Limited w/ Elastography MR#: [id number] Acct: [id number] Name: GARDENIA MUJICA Rep #: [id number] : 1965 F 58 From: Ludwin busch MD PCP: Dr. Marcel Moya MD Status: [facility] CL Study: ABD Limited w/ Elastography Date of Exam: 06/08 Exam# [id number] Ordering Dr: Marcel Moya MD PROCEDURE: ABD LIMITED W/ ELASTOGRAPHY REASON FOR EXAM: Fatty infiltration of the liver. COMPARISON: None. TECHNIQUE: Right upper quadrant abdominal ultrasound. [employer] ElastQ Imaging shear wave elastography for non- invasive assessment of liver tissue stiffness. [employer] EPIQ Elite. FINDINGS: LIVER: Size: Enlarged (hepatomegaly) Length: 18.9 cm cm Echotexture: Diffusely echogenic suggesting fatty infiltration Contour: Normal Lesions: None identified Elastography: EQI Med: 9.2 kPa EQI Med Araceli: 1.72 m/s IQR/Med: 8.8 %* GALLBLADDER: Surgically absent. COMMON BILE DUCT: Normal it measures 6 mm. PANCREAS: Normal Visualized portions of the right kidney are unremarkable. No right upper quadrant ascites. US/ABD Limited w/ Elastography IMPRESSION: MODERATE TO SEVERE HEPATIC FIBROSIS Reference Values: SRU <1.37 m/s (5.7kPa): No to mild fibrosis 1.37 m/s - 2.2 m/s: Moderate to severe fibrosis >2.2 m/s (15kPa): Significant fibrosis / cirrhosis METAVIR Score F2 or higher: 1.34 m/s (5.7kPa) F3 or higher: 1.55 m/s (7.3kPa) F4: 1.80 m/s (10kPa) * If the IQR/Med is >30%, the variance in the measurements is a large and the accuracy of the measurement may be in question. Reading Location: [id number] CC: Dr. Marcel Moya MD Sql Programmer: Signed Normal [facility] Bilirubin directOrdered By: Shabbir Kapadia on 04-11-2024 Bilirubin.direct [Mass/Vol] 0.12 mg/dL 0.00-0.30 [facility] Bilirubin, totalOrdered By: Shabbir Kapadia on 04-11-2024 Bilirubin [Mass/Vol] 0.27 mg/dL 0.00-1.30 [facility] CBC-Complete Blood Cnt No Di ffon 04-11-2024 Erythrocyte distribution width (RBC) [Ratio] 14.6 % Normal 11.6-14.6 [facility] Comment on above: Performed By: #### L 300.3900, L100.0500 #### [facility] [address] [place], [address] Hematocrit (Bld) [Volume fraction] 36.8 % Low 37-47 [facility] Comment on above: Performed By: #### L 300.3900, L100.0500 #### [facility] [address] [place], [address] Hemoglobin (Bld) [Mass/Vol] 12.5 g/dL Normal 12.0-15.0 [facility] Comment on above: Performed By: #### L 300.3900, L100.0500 #### [facility] [address] [place], [address] MCH (RBC) [Entitic mass] 29.8 pg Normal 27.0-32.0 [facility] Comment on above: Performed By: #### L 300.3900, L100.0500 #### [facility] [address] [place], [address] MCHC (RBC) [Mass/Vol] 34.0 g/dL Normal 32-[address] [facility] Comment on above: Performed By: #### L 300.3900, L100.0500 #### [facility] [address] [place], [address] MCV (RBC) [Entitic vol] 87.6 fL Normal 81-99 [facility] Comment on above: Performed By: #### L 300.3900, L100.0500 #### [facility] [address] [place], [address] Platelet mean volume (Bld) [Entitic vol] 9.4 fL Normal 6.2-12.0 [facility] Comment on above: Performed By: #### L 300.3900, L100.0500 #### [facility] [address] [place], [address] Platelets (Bld) [#/Vol] 317 10*3/uL Normal 150-450 [facility] Comment on above: Performed By: #### L 300.3900, L100.0500 #### [facility] [address] [place], [address] RBC (Bld) [#/Vol] 4.20 10*6/uL Normal 4.2-5.4 [facility] Comment on above: Performed By: #### L 300.3900, L100.0500 #### [facility] [address] [place], [address] RDW SD 46.5 fl High 35.1-43.9 [facility] Comment on above: Performed By: #### L 300.3900, L100.0500 #### [facility] [address] [place], [address] WBC (Bld) [#/Vol] 10.9 10*3/uL Normal 4.4-11.0 [facility] Comment on above: Performed By: #### L 300.3900, L100.0500 #### [facility] [address] [place], [address] Creatinine [Moles/Vol]Ordere d By: Shabbir Kapadia on 04-11-2024 Creatinine [Mass/Vol] 0.7 mg/dL 0.6-1.[address] [facility] Erythrocyte distribution wid th ratioOrdered By: [facility] Steffi on 04-11-2024 Erythrocyte distribution width (RBC) [Ratio] 14.6 % 11.6-14.6 [facility] Erythrocyte distribution wid th standard deviationOrdered By: [facility] Steffi on 04-11-2024 Erythrocyte distribution width (RBC) [Entitic vol] 46.5 fL High 35.1-43.9 [facility] Erythrocyte distribution width (RBC) [Ratio] 46.5 fl High 35.1-43.9 [facility] GFR/1.73 sq M.predicted alberto g non-blacks MDRD (S/P/Bld) [Vol rate/Area]Ordered By: Shabbir Kapadia on 04-11-2024 Estimated GFR (MDRD) Non-Af Amer 102 >60 [facility] Comment on above: mL/min/1.73m2 CKD-EP I Creatinine Equation (2020) Glomerular filtration rate ( GFR) estimation/1.73 sq m using serum, plasma, or whole bOrdered By: Shabbir Kapadia on 04-11-2024 GFR/1.73 sq M.predicted among non-blacks MDRD (S/P/Bld) [Vol rate/Area] 102 mL/min/{1.73_m2} >60 [facility] Comment on above: mL/min/1.73m2 CKD-EP I Creatinine Equation (2020) Hematocrit Auto (Bld) [Volum e fraction]Ordered By: Shabbir Kapadia on 04-11-2024 Hematocrit (Bld) [Volume fraction] 36.8 % Low 37-47 [facility] Hemoglobin measurementOrdere d By: Shabbir Kapadia on 04-11-2024 Hemoglobin (Bld) [Mass/Vol] 12.5 g/dL 12.0-15.0 [facility] Influenza virus A and B and SARS-CoV-2 (COVID-19) and Respiratory syncytial virus RNAOrdered By: Jasen Parra on 04-11-2024 SARS-CoV-2 (COVID-19) RNA BRENDAN+probe Ql (Unsp spec) Influenzae A Abnormal [facility] SARS-CoV-2 (COVID-19) RNA BRENADN+probe Ql (Unsp spec) Influenzae A Abnormal [facility] - Chemistry and C hemistry - challengeOrdered By: Shabbir Kapadia on 04-11-2024 AST [Catalytic activity/Vol] 36 U/L High <32 [facility] Liver Profileon 04-11-2024 Albumin [Mass/Vol] 3.7 g/dL Normal 3.5-5.0 [facility] Comment on above: Performed By: #### L 300.3900, L100.0500 #### [facility] [address] [place], [place], [id number] ALK PHOS 98 U/L Normal 35-104 [facility] Comment on above: Performed By: #### L 300.3900, L100.0500 #### [facility] [address] [facility] [place], [address] ALT [Catalytic activity/Vol] 31 U/L Normal <=34 [facility] Comment on above: Performed By: #### L 300.3900, L100.0500 #### [facility] [address] [place], [address] AST [Catalytic activity/Vol] 36 U/L High <=31 [facility] Comment on above: Performed By: #### L 300.3900, L100.0500 #### [facility] [address] [place], [address] Bilirubin [Mass/Vol] 0.27 mg/dL Normal 0.00-1.30 [facility] Comment on above: Performed By: #### L 300.3900, L100.0500 #### [facility] [address] [place], [address] Bilirubin.direct [Mass/Vol] 0.12 mg/dL Normal 0.00-0.30 [facility] Comment on above: Performed By: #### L 300.3900, L100.0500 #### [facility] [address] [place], [address] Globulin (S) [Mass/Vol] 2.4 g/dL Normal 2.2-4.2 [facility] Comment on above: Performed By: #### L 300.3900, L100.0500 #### [facility] [address] [place], [address] T PROT 6.1 g/dL Normal 5.9-8.4 [facility] Comment on above: Performed By: #### L 300.3900, L100.0500 #### [facility] [address] [place], [address] M100.678on 04-11-2024 SARS-CoV-2 (COVID-19) Ab IA Ql Normal Reference Range = Negative FLUABV+SARS-CoV-2+RSV Pnl Resp BRENDAN+probe GeneXpert Instrument, PCR method Copy of report sent to Infection Control Printer [id number] 04/11/24 Rasheed ANDERSON. [facility] 04/11/24 1711 Suzie Sick. REPORT READ BACK BY [facility]. SARS-CoV-2 (COVID 19) Negative INFLUENZA A A Positive A INFLUENZA B Negative RSV PCR Negative INFLUENZAE A Normal [facility] Comment on above: Performed By: #### M 100.678 ####[facility] [address] [place], [place], [address] MCV (mean corpuscular volume ) determinationOrdered By: Shabbir Kapadia on 04-11-2024 MCV (RBC) [Entitic vol] 87.6 fL 81-99 [facility] Mean corpuscular hemoglobin (MCH) determinationOrdered By: [facility] Staalexander on 04-11-2024 MCH (RBC) [Entitic mass] 29.8 pg 27.0-32.0 [facility] Mean corpuscular hemoglobin concentration (MCHC) determinationOrdered By: [facility] Steffi on 04-11-2024 MCHC (RBC) [Mass/Vol] 34.0 g/dL 32-[address] [facility] Mean platelet volume determi nationOrdered By: Shabbir Staalexander on 04-11-2024 Platelet mean volume (Bld) [Entitic vol] 9.4 fL 6.2-12.0 [facility] Platelet countOrdered By: Ev i Staalexander on 04-11-2024 Platelets (Bld) [#/Vol] 317 10*3/uL 150-450 [facility] RBC Auto (Bld) [#/Vol]Ordere d By: Shabbirbatsheva Kapadia on 04-11-2024 RBC (Bld) [#/Vol] 4.20 10*6/uL 4.2-5.4 [facility] Serum Creatinine AND GFRon 0 04-11-2024 Creatinine [Mass/Vol] 0.7 mg/dL Normal 0.6-1.[address] [facility] Comment on above: Performed By: #### L 300.3900, L100.0500 #### [facility] [address] [place], [place], [id number] GFR/1.73 sq M.predicted among non-blacks MDRD (S/P/Bld) [Vol rate/Area] 102 mL/min/{1.73_m2} Normal >60 [facility] Comment on above: Result Comment: mL/m in/1.73m2 CKD-EPI Creatinine Equation (2020) Performed By: #### L 300.3900, L100.0500 #### [facility] [address] [place], [address] Serum globulin measurementOr dered By: Shabbir Kapadia on 04-11-2024 Globulin (S) [Mass/Vol] 2.4 g/dL 2.2-4.2 [facility] Serum or plasma alanine foster otransferase (ALT) measurementOrdered By: Shabbir Kapadia on 04-11-2024 ALT [Catalytic activity/Vol] 31 U/L <35 [facility] Serum or plasma albumin tika urement (mass/volume)Ordered By: Shabbirbatsheva Kapadia on 04-11-2024 Albumin [Mass/Vol] 3.7 g/dL 3.5-5.0 [facility] Serum or plasma alkaline roberto sphatase measurementOrdered By: Shabbirbatsheva Kapadia on 04-11-2024 ALP [Catalytic activity/Vol] 98 U/L 35-104 [facility] Serum or plasma creatinine m easurement (moles/volume)Ordered By: Shabbir Kapadia on 04-11-2024 Creatinine [Moles/Vol] 0.7 mg/dL 0.6-1.0 [facility] Total proteinOrdered By: Shabbirbatsheva Kapadia on 04-11-2024 Protein [Mass/Vol] 6.1 g/dL 5.9-8.4 [facility] White blood cell (WBC) count Ordered By: Shabbir Kapadia on 04-11-2024 WBC (Bld) [#/Vol] 10.9 10*3/uL 4.4-11.0 [facility] International normalized rat io (INR) calculationon 04-10-2024 INR Coag (Bld) [Relative time] 1.9 {INR} [facility] Prothrombin Time w/INRon INR Coag (PPP) [Relative time] 1.9 {INR} Normal [facility] Comment on above: Performed By: #### L 300.3900 #### [facility] [address] [place], [address] PT Coag (PPP) [Time] 21.7 s High 11.7-14.9 [facility] Comment on above: Performed By: #### L 300.3900 #### [facility] [address] [place], [address] Prothrombin timeon PT Coag (PPP) [Time] 21.7 s High 11.7-14.9 [facility] Abdomen/Pelvis WITH Contrast on 04-05-2024 Abdomen/Pelvis WITH Contrast [facility] [address] [place] [address] Abdomen/Pelvis WITH Contrast MR#: [id number] Acct: [id number] Name: GARDENIA MUJICA MELONY Rep #: [id number] : 1965 F 58 From: Ludwin busch MD PCP: Dr. Marcel Moya MD Status: REG CLI Study: Abdomen/Pelvis WITH Contrast Date of Exam: Exam# [id number] Ordering Dr: Marcel Moya MD PROCEDURE: ABDOMEN/PELVIS WITH CONTRAST REASON FOR EXAM: Diarrhea. Follow-up examination. TECHNIQUE: Abdomen and pelvis CT with intravenous contrast. No oral contrast. IV CONTRAST: 97 mL of Isovue-300. COMPARISON: Comparison is made with prior study dated March 28, 2024. FINDINGS: Lung bases: Clear Liver: Diffuse fatty infiltration. Gallbladder: Surgically absent. Spleen: Unremarkable. Pancreas: Unremarkable. Adrenals: Unremarkable. Kidneys: Unremarkable. Bladder: Unremarkable. Reproductive Organs: Prior hysterectomy. Adnexal regions are unremarkable. Bowel: There is evidence of diffuse circumferential wall thickening of the: Down to the rectum. This is in keeping with the caraballo colitis. Appendix: The appendix is not identified. There is no inflammatory process identified in the right lower quadrant to suggest appendicitis. Lymph nodes: No suspicious lymph node enlargement. Vasculature: Mild diffuse atherosclerotic calcifications are noted. Peritoneum / Retroperitoneum: No ascites. No free air. Bones: Degenerative changes of the spine. 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 One or more dose reduction techniques were used (e.g., Automated exposure control, adjustment of the mA and/or kV according to patient size, use of iterative reconstruction technique). Reading Location: [place] [address] CC: Dr. Marcel Moya MD Sql Programmer: Signed Normal [facility] CBC-Complete Blood Cnt No Di ffon 04-05-2024 Erythrocyte distribution width (RBC) [Ratio] 14.0 % Normal 11.6-14.6 [facility] Comment on above: Performed By: #### L 300.3900, L100.0500 #### [facility] [address] [place], [address] Hematocrit (Bld) [Volume fraction] 39.1 % Normal 37-47 [facility] Comment on above: Performed By: #### L 300.3900, L100.0500 #### [facility] [address] [place], [address] Hemoglobin (Bld) [Mass/Vol] 13.6 g/dL Normal 12.0-15.0 [facility] Comment on above: Performed By: #### L 300.3900, L100.0500 #### [facility] [address] [place], [address] MCH (RBC) [Entitic mass] 28.8 pg Normal 27.0-32.0 [facility] Comment on above: Performed By: #### L 300.3900, L100.0500 #### [facility] [address] [place], [address] MCHC (RBC) [Mass/Vol] 34.8 g/dL Normal 32-[address] [facility] Comment on above: Performed By: #### L 300.3900, L100.0500 #### [facility] [address] [place], [address] MCV (RBC) [Entitic vol] 82.8 fL Normal 81-99 [facility] Comment on above: Performed By: #### L 300.3900, L100.0500 #### [facility] [address] [place], [address] Platelet mean volume (Bld) [Entitic vol] 9.6 fL Normal 6.2-12.0 [facility] Comment on above: Performed By: #### L 300.3900, L100.0500 #### [facility] [address] [place], [address] Platelets (Bld) [#/Vol] 409 10*3/uL Normal 150-450 [facility] Comment on above: Performed By: #### L 300.3900, L100.0500 #### [facility] [address] [place], [address] RBC (Bld) [#/Vol] 4.72 10*6/uL Normal 4.2-5.4 [facility] Comment on above: Performed By: #### L 300.3900, L100.0500 #### [facility] [address] [place], [address] RDW SD 42.2 fl Normal 35.1-43.9 [facility] Comment on above: Performed By: #### L 300.3900, L100.0500 #### [facility] [address] [place], [address] WBC (Bld) [#/Vol] 12.7 10*3/uL High 4.4-11.0 [facility] Comment on above: Performed By: #### L 300.3900, L100.0500 #### [facility] [address] [place], [address] Erythrocyte distribution wid th ratioon 04-05-2024 Erythrocyte distribution width (RBC) [Ratio] 14.0 % 11.6-14.6 [facility] Erythrocyte distribution wid th standard deviationon 04-05-2024 Erythrocyte distribution width (RBC) [Entitic vol] 42.2 fL 35.1-43.9 [facility] Erythrocyte distribution width (RBC) [Ratio] 42.2 fl 35.1-43.9 [facility] Hematocrit Auto (Bld) [Volum e fraction]on 04-05-2024 Hematocrit (Bld) [Volume fraction] 39.1 % 37-47 [facility] Hemoglobin measurementon Hemoglobin (Bld) [Mass/Vol] 13.6 g/dL 12.0-15.0 [facility] International normalized rat io (INR) calculationon 04-05-2024 INR Coag (Bld) [Relative time] 3.3 {INR} [facility] MCV (mean corpuscular volume ) determinationon 04-05-2024 MCV (RBC) [Entitic vol] 82.8 fL 81-99 [facility] Mean corpuscular hemoglobin (MCH) determinationon 04-05-2024 MCH (RBC) [Entitic mass] 28.8 pg 27.0-32.0 [facility] Mean corpuscular hemoglobin concentration (MCHC) determinationon 04-05-2024 MCHC (RBC) [Mass/Vol] 34.8 g/dL 32-[address] [facility] Mean platelet volume determi nationon 04-05-2024 Platelet mean volume (Bld) [Entitic vol] 9.6 fL 6.2-12.0 [facility] Ova and Parasites 8623on OP OVA AND PARASITES EX AM, ROUTINE These results were obtained using wet preparation(s) and trichrome stained smear. This test does not include testing for Crytosporidium parvum, Cyclospora, or Microsporidia. One negative specimen does not rule out the possibility of a parasitic infection. _ TESTING PERFORMED AT [facility]. ORIGINAL REPORT ON FILE IN LAB CONTAINS ADDITIONAL TEST SITE INFORMATION. _ Ova/Parasite Exam NO OVA, CYSTS, OR PARASITES FOUND. Normal [facility] Comment on above: Performed By: #### M 100.7900, M100.0605, M100.6796, M600.5000, M100.637, M100.6795 ####[facility] [address] [place], [address] Platelet counton 04-05-2024 Platelets (Bld) [#/Vol] 409 10*3/uL 150-450 [facility] Prothrombin Time w/INRon INR Coag (PPP) [Relative time] 3.3 {INR} Normal [facility] Comment on above: Performed By: #### L 300.3900, L100.0500 #### [facility] [address] [place], [address] PT Coag (PPP) [Time] 34.2 s High 11.7-14.9 [facility] Comment on above: Performed By: #### L 300.3900, L100.0500 #### [facility] [address] [place], [address] Prothrombin timeon PT Coag (PPP) [Time] 34.2 s High 11.7-14.9 [facility] RBC Auto (Bld) [#/Vol]on RBC (Bld) [#/Vol] 4.72 10*6/uL 4.2-5.4 [facility] White blood cell (WBC) count on 04-05-2024 WBC (Bld) [#/Vol] 12.7 10*3/uL High 4.4-11.0 [facility] Absolute lymphocyte counton 04-02-2024 Lymphocytes Auto (Unsp spec) [#/Vol] 1.81 10*3/uL 0.83-4.51 [facility] Absolute neutrophil counton 04-02-2024 Neutrophils (Bld) [#/Vol] 15.1 10*3/uL High 2.0-7.7 [facility] Albumin to globulin ratioon 04-02-2024 Albumin/Globulin [Mass ratio] 0.7 {ratio} Low 0.9-2.4 [facility] Automated lymphocyte count a s percentage of total leukocyteson 04-02-2024 Lymphocytes/100 WBC Auto (Unsp spec) 9.2 % Low 19-41 [facility] Basophil percentageon 2024 Basophils/100 WBC (Bld) 0.5 % 0-1 [facility] Bilirubin, totalon Bilirubin [Mass/Vol] 0.40 mg/dL 0.20-1.00 [facility] Comment on above: For patients on eltr ombopag therapy, use of Dimension [place] TBIL is not recommended. Blood urea nitrogen (BUN)/cr eatinine ratioon 04-02-2024 Urea nitrogen/Creatinine [Mass ratio] 20.2 mg/mg High 10-20 [facility] C. difficile DNA BRENDAN+probe Q l (Unsp spec)Ordered By: Marcel Moya on 04-02-2024 Clostridioides difficile (PCR) [facility] Clostridioides difficile (PCR) [facility] C. difficile Ql (Stl)Ordered By: Marcel Moya on 04-02-2024 C. difficile GDH Antigen & Toxins Toxigenic C. difficile Abnormal [facility] C. difficile GDH Antigen & Toxins Toxigenic C. difficile Abnormal [facility] CBC W/Diff, Automatedon 03-17 Absolute Lymph 1.81 X10 3/uL Normal 0.83-4.51 [facility] Comment on above: Performed By: #### L 300.9320 #### [facility] [address] [place], [place], [id number] Absolute Neut 15.1 X10 3/uL High 2.0-7.7 [facility] Comment on above: Performed By: #### L 300.3900 #### [facility] [address] [place], [address] Basophils/100 WBC (Bld) 0.5 % Normal 0-1 [facility] Comment on above: Performed By: #### L 300.3900 #### [facility] [address] [place], [address] Eosinophils/100 WBC (Bld) 5.8 % High 0-5 [facility] Comment on above: Performed By: #### L 300.3900 #### [facility] [address] [place], [address] Erythrocyte distribution width (RBC) [Ratio] 13.9 % Normal 11.6-14.6 [facility] Comment on above: Performed By: #### L 300.3900 #### [facility] [address] [place] [address] [place], [address] Hematocrit (Bld) [Volume fraction] 40.0 % Normal 37-47 [facility] Comment on above: Performed By: #### L 300.3900 #### [facility] [address] [place], [address] Hemoglobin (Bld) [Mass/Vol] 13.9 g/dL Normal 12.0-15.0 [facility] Comment on above: Performed By: #### L 300.3900 #### [facility] [address] [place], [address] IG% 0.800 Normal 0.0-0.9 [facility] Comment on above: Result Comment: IG% - Immature Granulocytes (promyelocytes, myelocytes and metamyelocytes) > 1% indicates that a LEFT SHIFT is Present. Performed By: #### L 300.3900 #### [facility] [address] [place], [address] Lymphocytes/100 WBC (Bld) 9.2 % Low 19-41 [facility] Comment on above: Performed By: #### L 300.3900 #### [facility] [address] [place], [address] MCH (RBC) [Entitic mass] 29.0 pg Normal 27.0-32.0 [facility] Comment on above: Performed By: #### L 300.3900 #### [facility] [address] [place], [address] MCHC (RBC) [Mass/Vol] 34.8 g/dL Normal 32-[address] [facility] Comment on above: Performed By: #### L 300.3900 #### [facility] [address] [place], [address] MCV (RBC) [Entitic vol] 83.3 fL Normal 81-99 [facility] Comment on above: Performed By: #### L 300.3900 #### [facility] [address] [place], [address] Monocytes/100 WBC (Bld) 6.8 % Normal 0-10 [facility] Comment on above: Performed By: #### L 300.3900 #### [facility] [place], [address] Neutrophils/100 WBC (Bld) 76.9 % High 47-70 [facility] Comment on above: Performed By: #### L 300.3900 #### [facility] [address] [place], [address] Nucleated RBC (Bld) [#/Vol] 0 10*3/uL Normal 0-5 [facility] Comment on above: Performed By: #### L 300.3900 #### [facility] [address] [place], [address] Platelet mean volume (Bld) [Entitic vol] 9.5 fL Normal 6.2-12.0 [facility] Comment on above: Performed By: #### L 300.3900 #### [facility] [address] [place], [address] Platelets (Bld) [#/Vol] 355 10*3/uL Normal 150-450 [facility] Comment on above: Performed By: #### L 300.3900 #### [facility] [address] [place], [address] RBC (Bld) [#/Vol] 4.80 10*6/uL Normal 4.2-5.4 [facility] Comment on above: Performed By: #### L 300.3900 #### [facility] [address] [place], [address] RDW SD 42.1 fl Normal 35.1-43.9 [facility] Comment on above: Performed By: #### L 300.3900 #### [facility] [address] [place], [address] WBC (Bld) [#/Vol] 19.7 10*3/uL High 4.4-11.0 [facility] Comment on above: Performed By: #### L 300.3900 #### [facility] [address] [place], [address] CDIFF (PCR)on 04-02-2024 CDIFF IFOB A positive C. difficile molecular test does not differentiate between an active C. difficile infection and C. difficile colonization. Use clinical judgement and paired toxin/antigen testing to identify true infection and need for treatment. C diff DNA Spec Ql BRENDAN+probe Reference Range: Negative CepYodleeid GeneXpert: polymerase chain reaction (PCR) 027 027 NAP1-B1 Presumptive Negative *for epidemiolologic???use C. Diff PCR A Positive-Toxigenic C. Difficile Detected A Normal [facility] Comment on above: Performed By: #### M 100.7900, M100.0605, M100.6796, M600.5000, M100.637, M100.6795 ####[facility] [address] [place], [place], [id number] Carbon dioxide measurementon 04-02-2024 CO2 [Moles/Vol] 26.0 mmol/L 21.0-32.0 [facility] Chloride measurementon 04-02 Chloride [Moles/Vol] 98 mmol/L 98-107 [facility] Clostridium Diff Toxin/Agon 04-02-2024 CDIFF (EIA) IFOB Interpretation of C. diff by EIA Method POS Antigen and POS Toxin = Positive for Toxigenic C. difficile gene and active toxin production IS detected. Consistent with true infection. C diff Stl Ql POS for Antigen and NEG for Toxin = Positive for toxigenic C. Difficile gene but the active toxin production NOT detected. May be a colonized carrier or toxin level is below limit of detection. C diff Stl Ql Negative for toxigenic C. difficile gene and active toxin production IS detected. C diff Stl Ql Negative for toxigenic C. difficile, or below limit of detection. C. difficile Antigen A Positive C. diff A/B Antigen A C. difficile Toxin A Positive-Toxigenic C. Difficile (EIA) A Toxigenic C. difficile Normal [facility] Comment on above: Performed By: #### M 100.7900, M100.0605, M100.6796, M600.5000, M100.637, M100.6795 ####[facility] [address] [place], [place], [id number] Clostridium difficile detect ion by polymerase chain reactionOrdered By: Marcel Moya on 04-02-2024 C. difficile DNA BRENDAN+probe Ql (Unsp spec) [facility] Comprehensive Metabolic Prof ilon 04-02-2024 Albumin [Mass/Vol] 2.7 g/dL Low 3.2-5.0 [facility] Comment on above: Performed By: #### L 300.3900 #### [facility] [address] [place], [address] Albumin/Globulin [Mass ratio] 0.7 {ratio} Low 0.9-2.4 [facility] Comment on above: Performed By: #### L 300.3900 #### [facility] [address] [place], [address] ALK P 150 U/L High 45-117 [facility] Comment on above: Performed By: #### L 300.3900 #### [facility] [address] [place], [address] ALT [Catalytic activity/Vol] 36 U/L Normal 13-56 [facility] Comment on above: Performed By: #### L 300.3900 #### [facility] [address] [place], [address] AST [Catalytic activity/Vol] 28 U/L Normal 15-37 [facility] Comment on above: Performed By: #### L 300.3900 #### [facility] [address] [place], [address] Bilirubin [Mass/Vol] 0.40 mg/dL Normal 0.20-1.00 [facility] Comment on above: Result Comment: For patients on eltrombopag therapy, use of Dimension [place] TBIL is not recommended. Performed By: #### L 300.3900 #### [facility] [address] [place], [address] BUN/CRE 20.2 RATIO High 10-20 [facility] Comment on above: Performed By: #### L 300.3900 #### [facility] [address] [place], [address] CA,Total 9.4 mg/dL Normal 8.5-10.1 [facility] Comment on above: Performed By: #### L 300.3900 #### [facility] [address] [place], [address] Chloride [Moles/Vol] 98 mmol/L Normal 98-107 [facility] Comment on above: Performed By: #### L 300.3900 #### [facility] [address] [place], [address] CO2 [Moles/Vol] 26.0 mmol/L Normal 21.0-32.0 [facility] Comment on above: Performed By: #### L 300.3900 #### [facility] [address] [place], [address] Creatinine [Mass/Vol] 0.89 mg/dL Normal 0.55-1.[address] [facility] Comment on above: Result Comment: The validity of the calculated GFR GFRAA in patients over 70 years has not been determined. Clinical correlation is essential. Performed By: #### L 300.3900 #### [facility] [address] [place], [address] EST GFR - AA 83 mL/min Normal >60 [facility] Comment on above: Result Comment: Afri can German GFR Calc Performed By: #### L 300.3900 #### [facility] [address] [place], [address] GAP 10 Normal 5-15 [facility] Comment on above: Performed By: #### L 300.3900 #### [facility] [address] [place], [address] GFR/1.73 sq M.predicted among non-blacks MDRD (S/P/Bld) [Vol rate/Area] 69 mL/min/{1.73_m2} Normal >60 [facility] Comment on above: Result Comment: Non- GFR Calc Performed By: #### L 300.3900 #### [facility] [address] [place], [address] Globulin (S) [Mass/Vol] 3.9 g/dL Normal 2.2-4.2 [facility] Comment on above: Performed By: #### L 300.3900 #### [facility] [address] [place], [address] Glucose [Mass/Vol] 98 mg/dL Normal 74-106 [facility] Comment on above: Performed By: #### L 300.3900 #### [facility] [address] [place], [address] Potassium [Moles/Vol] 3.2 mmol/L Low 3.5-5.[address] [facility] Comment on above: Performed By: #### L 300.3900 #### [facility] [address] [place], [address] Sodium [Moles/Vol] 134 mmol/L Low 136-145 [facility] Comment on above: Performed By: #### L 300.3900 #### [facility] [address] [place], [address] T PROT 6.6 g/dL Normal 6.4-8.2 [facility] Comment on above: Performed By: #### L 300.3900 #### [facility] [address] [place], [address] Urea nitrogen [Mass/Vol] 18 mg/dL Normal 7-18 [facility] Comment on above: Performed By: #### L 300.3900 #### [facility] [address] [place], [address] ENTERIC PATHOGEN PANEL STOOL on 04-02-2024 EP PANEL CAMPYLOBACTER Not Detected Norovirus Not Detected Rotavirus Not Detected Salmonella Not Detected Shiga Toxin Not Detected Shigella sp. Not Detected VIBRIO Not Detected Yersinia Not Detected Normal [facility] Comment on above: Performed By: #### M 100.7900, M100.0605, M100.6796, M600.5000, M100.637, M100.6795 ####[facility] [address] [place], [address] Eosinophil percentageon 03-17 Eosinophils/100 WBC (Bld) 5.8 % High 0-5 [facility] Estimated glomerular filtrat ion rate (GFR) Americanon 04-02-2024 Estimated GFR (MDRD) Amer 83 mL/min >60 [facility] Comment on above: GFR Calc Glomerular filtration rate ( GFR) estimationon 04-02-2024 Estimated GFR (MDRD) Non-Af Amer 69 mL/min >60 [facility] Comment on above: Non- GFR Calc GFR/1.73 sq M.predicted among non-blacks MDRD (S/P/Bld) [Vol rate/Area] 69 mL/min/{1.73_m2} >60 [facility] Comment on above: Non- GFR Calc Glucose measurementon 2024 Glucose [Mass/Vol] 98 mg/dL 74-106 [facility] Immature granulocytes/100 WB C Auto (Bld)on 04-02-2024 Immature granulocytes/100 WBC (Bld) 0.800 % 0.0-0.9 [facility] Comment on above: IG% - Immature Granu locytes (promyelocytes, myelocytes and metamyelocytes) > 1% indicates that a LEFT SHIFT is Present. Laboratory - Chemistry and C hemistry - challengeon 04-02-2024 AST [Catalytic activity/Vol] 28 U/L 15-37 [facility] Lactoferrin IA Ql (Stl)Order ed By: Marcel Moya on 04-02-2024 Stool Lactoferrin [facility] Stool Lactoferrin [facility] Lower GI hemoglobin IA Ql (S tl)Ordered By: Marcel Moya on 04-02-2024 Stool Occult Blood (CORI) Positive Abnormal [facility] Stool Occult Blood (CORI) Positive Abnormal [facility] Lymphocytes Auto (Unsp spec) [#/Vol]on 04-02-2024 Lymphocytes (Bld) [#/Vol] 1.81 10*3/uL 0.83-4.51 [facility] Lymphocytes/100 WBC Auto (Un sp spec)on 04-02-2024 Lymphocytes/100 WBC (Bld) 9.2 % Low 19-41 [facility] Monocyte percentageon 2024 Monocytes/100 WBC (Bld) 6.8 % 0-10 [facility] Neutrophil percentageon 03-17 Neutrophils/100 WBC (Bld) 76.9 % High 47-70 [facility] Nucleated red blood cell per centageon 04-02-2024 Nucleated RBC/100 WBC (Bld) [Ratio] 0 % 0-5 [facility] Ova and parasitesOrdered By: Marcel Moya on 04-02-2024 Ova and Parasites [facility] Ova and Parasites [facility] Potassium measurementon 03-17 Potassium [Moles/Vol] 3.2 mmol/L Low 3.5-5.[address] [facility] Prothrombin Time w/INRon INR Coag (PPP) [Relative time] 2.2 {INR} Normal [facility] Comment on above: Performed By: #### L 300.3900 #### [facility] [address] [place], [place], [address] PT Coag (PPP) [Time] 25.3 s High 11.7-14.9 [facility] Comment on above: Performed By: #### L 300.3900 #### [facility] [address] [place], [place], [id number] Serum anion gap measuremento n 04-02-2024 Anion gap [Moles/Vol] 10 mmol/L 5-[address] [facility] Serum globulin measurementon 04-02-2024 Globulin (S) [Mass/Vol] 3.9 g/dL 2.2-4.2 [facility] Serum or plasma alanine foster otransferase (ALT) measurementon 04-02-2024 ALT [Catalytic activity/Vol] 36 U/L 13-56 [facility] Serum or plasma albumin tika urement (mass/volume)on 04-02-2024 Albumin [Mass/Vol] 2.7 g/dL Low 3.2-5.0 [facility] Serum or plasma alkaline roberto sphatase measurementon 04-02-2024 ALP [Catalytic activity/Vol] 150 U/L High 45-117 [facility] Serum or plasma calcium tika urement (mass/volume)on 04-02-2024 Calcium [Mass/Vol] 9.4 mg/dL 8.5-10.1 [facility] Serum or plasma creatinine m easurement (mass/volume)on 04-02-2024 Creatinine [Mass/Vol] 0.89 mg/dL 0.55-1.[address] [facility] Comment on above: The validity of the calculated GFR & GFRAA in patients over 70 years has not been determined. Clinical correlation is essential. Serum or plasma urea nitroge n measurement (mass/volume)on 04-02-2024 Urea nitrogen [Mass/Vol] 18 mg/dL 18 [facility] Sodium levelon 04-02-2024 Sodium [Moles/Vol] 134 mmol/L Low 136-145 [facility] Stool Clostridium difficile detectionOrdered By: Marcel Moya on 04-02-2024 C. difficile Ql (Stl) Toxigenic C. difficile Abnormal [facility] Stool Lactoferrin/WBCon 03-17 WBCST Normal Reference Ran ge = Negative Fecal WBC Lactoferrin A Positive: Fecal WBC Lactoferrin present A Normal [facility] Comment on above: Performed By: #### M 100.7900, M100.0605, M100.6796, M600.5000, M100.637, M100.6795 ####[facility] [address] [place], [place], [id number] Stool Occult Blood iFOBon STOB Positive Normal [facility] Comment on above: Performed By: #### M 100.7900, M100.0605, M100.6796, M600.5000, M100.637, M100.6795 ####[facility] [address] [place], [place], [id number] Stool enteric pathogen panel by probe and target amplification methodOrdered By: Marcel Moya on 04-02-2024 Enteric Bacteriology [facility] Enteric Bacteriology [facility] Stool gastrointestinal hemog lobin detection by immunologic methodOrdered By: Marcel Moya on 04-02-2024 Lower GI hemoglobin IA Ql (Stl) Positive Abnormal [facility] Stool lactoferrin detection by immunoassayOrdered By: Marcel Moya on 04-02-2024 Lactoferrin IA Ql (Stl) [facility] Total proteinon 04-02-2024 Protein [Mass/Vol] 6.6 g/dL 6.4-8.2 [facility] Discharge Instructionon 03-17 Discharge Instruction [facility] Medical Records Department [address] [place] [address] Instructions for Home/Discharge Instructions 03/29/24 1501 MR#: [id number] Acct: [id number] Name: GARDENIA MUJICA Rep #: [id number] : 1965 58 From: Mejia Wheeler DO PCP: Dr. Marcel Moya MD Status:ADM IN Discharge Instructions Diet Discharge Diet: No restrictions DC O2, CPAP, BIPAP needs Home O2 Discharge instructions: No Dressing / Incision Discharge Activity: Return to Normal Activity Weight Bearing Status: Full weight bearing Follow Up Care Test Results: Test results from this visit will be discussed in further detail at your follow-up appointment, if applicable. Discharge Plan Admission Admit Date/Time: 03/28/24 10:37 Primary Reason for Your Visit: UPPER GI BLEED Attending Provider: Mejia Wheeler Primary Care Provider: Marcel Moya Chi Instructions Additional Instructions / Restrictions: Resume your warfarin on 03/31/2024, get your INR rechecked on 04/02/2024 Get your gastric emptying study performed as scheduled Discharge Orders/Prescriptions Prescriptions: Continued pantoprazole 40 mg tablet,delayed release (DR/EC) 40 mg PO BID amlodipine 5 mg tablet 5 mg PO DAILY hydroxyzine HCl 10 mg tablet 10 mg PO QHS warfarin [Jantoven] 3 mg tablet 4.5 mg PO MOWEFR Rx Instructions: 3MG- SUN, TUES, THUR, SAT 4.5MG- TUE, TUE, TUE warfarin 3 mg tablet 3 mg PO SUTUTHSA Rx Instructions: 3MG- SUN, TUES, THUR, SAT 4.5MG- TUE, TUE, TUE Referrals / Follow Up: Trung Payne DO [Med Staff - Active Staff] - See Referral Note (As scheduled) Marcel Moya Chi, MD [Primary Care Provider] - [facility],[place] [STAFF PHYSICIAN] - Disposition Disposition (needs filled in before D/C Order can be placed): Home, Self Care 03/29/24 1507 Mejia Wheeler DO CC: Dr. Marcel Moya MD Signed Normal [facility] International normalized rat io (INR) calculationOrdered By: Mejia Wheeler on 03-29-2024 INR Coag (Bld) [Relative time] 2.7 {INR} [facility] Prothrombin Time w/INRon INR Coag (PPP) [Relative time] 2.7 {INR} Normal [facility] Comment on above: Performed By: #### L 300.3900, L100.0500 #### [facility] [address] [place], [address] PT Coag (PPP) [Time] 29.6 s High 11.7-14.9 [facility] Comment on above: Performed By: #### L 300.3900, L100.0500 #### [facility] [address] [place], [address] Prothrombin timeOrdered By: Mejia Wheeler on 03-29-2024 PT Coag (PPP) [Time] 29.6 s High 11.7-14.9 [facility] Abdomen Single View (Portabl e)on 03-28-2024 Abdomen Single View (Portable) [facility] Imaging Services [address] [place] [address] Abdomen Single View (Portable) MR#: [id number] Acct: [id number] Name: GARDENIA MUJICA Rep #: [id number] : 1965 F 58 From: Mejia Mcconnell MD PCP: Dr. Marcel Moya MD Status: REG ER Study: Abdomen Single View (Portable) Date of Exam: 0 03/28/24 Exam# [id number] Ordering Dr: Sharath Forrest MD EXAM: XR Abdomen, 1 View CLINICAL INDICATION: TECHNIQUE: Frontal supine view of the abdomen/pelvis. COMPARISON: No relevant prior studies available. FINDINGS: GASTROINTESTINAL TRACT: Unremarkable. No dilation. BONES/JOINTS: Unremarkable. No acute fracture. TUBES, LINES AND DEVICES: Enteric tube is in the stomach. RAD/Abdomen Single View (Portable) IMPRESSION: Enteric tube is in the stomach. Reading Location: [facility] CC: Dr. Sharath Forrest MD; Dr. Marcel Moya MD Sql Programmer: Signed Normal [facility] Abdomen/Pelvis W IV Cont ONL Yon 03-28-2024 Abdomen/Pelvis W IV Cont ONLY [facility] Imaging Services [address] [place] [address] Abdomen/Pelvis W IV Cont ONLY MR#: [id number] Acct: [id number] Name: GARDENIA MUJICA Rep #: [id number] : 1965 F 58 From: Ludwin busch MD PCP: Dr. Marcel Moya MD Status: ADM IN Study: Abdomen/Pelvis W IV Cont ONLY Date of Exam: Exam# [id number] Ordering Dr: Sharath Forrest MD PROCEDURE: ABDOMEN/PELVIS W IV CONT ONLY REASON FOR EXAM: Coffee-ground emesis. TECHNIQUE: Abdomen and pelvis CT with intravenous contrast. No oral contrast. IV CONTRAST: 100 cc of Isovue-300. COMPARISON: Comparison is made with prior study dated February 03, 2020. FINDINGS: Orogastric tube is seen within the stomach. Lung bases: Mild degree of dependent atelectasis. Coronary artery calcification. Liver: Diffuse fatty infiltration. Gallbladder: Surgically absent. Spleen: Unremarkable. Pancreas: Unremarkable. Adrenals: Unremarkable. Kidneys: Unremarkable. Bladder: Unremarkable. Reproductive Organs: Prior hysterectomy. Adnexal regions are unremarkable. Bowel: Unremarkable. Appendix: Prior appendectomy. Lymph nodes: No suspicious lymph node enlargement. Vasculature: Major vascular structures are unremarkable. Peritoneum / Retroperitoneum: No ascites. No free air. Bones: Degenerative changes of the spine. Stable grade 1 anterior listhesis of L5 on S1. CT/Abdomen/Pelvis W IV Cont ONLY IMPRESSION: Orogastric tube is seen within the stomach. Fatty infiltration of the liver. Status post cholecystectomy. Prior hysterectomy and appendectomy. One or more dose reduction techniques were used (e.g., Automated exposure control, adjustment of the mA and/or kV according to patient size, use of iterative reconstruction technique). Reading Location: [facility] CC: Dr. Sharath Forrest MD; Dr. Marcel Moya MD Sql Programmer: Signed Normal [facility] Absolute lymphocyte countOrd ered By: Sharath Forrest on 03-28-2024 Lymphocytes Auto (Unsp spec) [#/Vol] 1.28 10*3/uL 0.83-4.51 [facility] Absolute neutrophil countOrd ered By: Sharath Bhargavikeyon on 03-28-2024 Neutrophils (Bld) [#/Vol] 6.8 10*3/uL 2.0-7.7 [facility] Albumin to globulin ratioOrd ered By: Sharath Forrest on 03-28-2024 Albumin/Globulin [Mass ratio] 0.9 {ratio} 0.9-2.4 [facility] Automated lymphocyte count a s percentage of total leukocytesOrdered By: Sharath Bhargavikeyon on 03-28-2024 Lymphocytes/100 WBC Auto (Unsp spec) 13.9 % Low 19-41 [facility] Basophil percentageOrdered B y: Sharath Bhargavikeyon on 03-28-2024 Basophils/100 WBC (Bld) 0.4 % 0-1 [facility] Bilirubin, totalOrdered By: Sharath Bhargavikeyon on 03-28-2024 Bilirubin [Mass/Vol] 0.50 mg/dL 0.20-1.00 [facility] Comment on above: For patients on eltr ombopag therapy, use of Dimension [place] TBIL is not recommended. Blood urea nitrogen (BUN)/cr eatinine ratioOrdered By: Sharath Forrest on 03-28-2024 Urea nitrogen/Creatinine [Mass ratio] 21.2 mg/mg High 10-20 [facility] CBC W/Diff, Automatedon 03-17 Absolute Lymph 1.28 X10 3/uL Normal 0.83-4.51 [facility] Comment on above: Performed By: #### L 300.3900, L100.0500 #### [facility] [address] [place], [address] Absolute Neut 6.8 X10 3/uL Normal 2.0-7.7 [facility] Comment on above: Performed By: #### L 300.3900, L100.0500 #### [facility] [address] [place], [address] Basophils/100 WBC (Bld) 0.4 % Normal 0-1 [facility] Comment on above: Performed By: #### L 300.3900, L100.0500 #### [facility] [address] [place], [address] Eosinophils/100 WBC (Bld) 4.7 % Normal 0-5 [facility] Comment on above: Performed By: #### L 300.3900, L100.0500 #### [facility] [address] [place], [address] Erythrocyte distribution width (RBC) [Ratio] 14.3 % Normal 11.6-14.6 [facility] Comment on above: Performed By: #### L 300.3900, L100.0500 #### [facility] [address] [place], [address] Hematocrit (Bld) [Volume fraction] 39.0 % Normal 37-47 [facility] Comment on above: Performed By: #### L 300.3900, L100.0500 #### [facility] [address] [place], [address] Hemoglobin (Bld) [Mass/Vol] 13.5 g/dL Normal 12.0-15.0 [facility] Comment on above: Performed By: #### L 300.3900, L100.0500 #### [facility] [address] [place], [address] IG% 0.300 Normal 0.0-0.9 [facility] Comment on above: Result Comment: IG% - Immature Granulocytes (promyelocytes, myelocytes and metamyelocytes) > 1% indicates that a LEFT SHIFT is Present. Performed By: #### L 300.3900, L100.0500 #### [facility] [address] [place], [address] Lymphocytes/100 WBC (Bld) 13.9 % Low 19-41 [facility] Comment on above: Performed By: #### L 300.3900, L100.0500 #### [facility] [address] [place], [address] MCH (RBC) [Entitic mass] 29.9 pg Normal 27.0-32.0 [facility] Comment on above: Performed By: #### L 300.3900, L100.0500 #### [facility] [address] [place], [address] MCHC (RBC) [Mass/Vol] 34.6 g/dL Normal 32-[address] [facility] Comment on above: Performed By: #### L 300.3900, L100.0500 #### [facility] [address] [place], [address] MCV (RBC) [Entitic vol] 86.5 fL Normal 81-99 [facility] Comment on above: Performed By: #### L 300.3900, L100.0500 #### [facility] [address] [place], [address] Monocytes/100 WBC (Bld) 7.1 % Normal 0-10 [facility] Comment on above: Performed By: #### L 300.3900, L100.0500 #### [facility] [address] [place], [address] Neutrophils/100 WBC (Bld) 73.6 % High 47-70 [facility] Comment on above: Performed By: #### L 300.3900, L100.0500 #### [facility] [address] [place], [address] Nucleated RBC (Bld) [#/Vol] 0 10*3/uL Normal 0-5 [facility] Comment on above: Performed By: #### L 300.3900, L100.0500 #### [facility] [address] [place], [address] Platelet mean volume (Bld) [Entitic vol] 9.7 fL Normal 6.2-12.0 [facility] Comment on above: Performed By: #### L 300.3900, L100.0500 #### [facility] [address] [place], [address] Platelets (Bld) [#/Vol] 278 10*3/uL Normal 150-450 [facility] Comment on above: Performed By: #### L 300.3900, L100.0500 #### [facility] [address] [place], [address] RBC (Bld) [#/Vol] 4.51 10*6/uL Normal 4.2-5.4 [facility] Comment on above: Performed By: #### L 300.3900, L100.0500 #### [facility] [address] [place], [address] RDW SD 45.1 fl High 35.1-43.9 [facility] Comment on above: Performed By: #### L 300.3900, L100.0500 #### [facility] [address] [place], [address] WBC (Bld) [#/Vol] 9.2 10*3/uL Normal 4.4-11.0 [facility] Comment on above: Performed By: #### L 300.3900, L100.0500 #### [facility] [address] [place], [address] Carbon dioxide measurementOr dered By: Sharath Forrest on 03-28-2024 CO2 [Moles/Vol] 31.0 mmol/L 21.0-32.0 [facility] Chloride measurementOrdered By: Sharath Forrest on 03-28-2024 Chloride [Moles/Vol] 107 mmol/L 98-107 [facility] Comprehensive Metabolic Prof ilon 03-28-2024 Albumin [Mass/Vol] 3.6 g/dL Normal 3.2-5.0 [facility] Comment on above: Performed By: #### L 300.3900, L100.0500 #### [facility] [address] [place], [address] Albumin/Globulin [Mass ratio] 0.9 {ratio} Normal 0.9-2.4 [facility] Comment on above: Performed By: #### L 300.3900, L100.0500 #### [facility] [address] [place], [address] ALK P 168 U/L High 45-117 [facility] Comment on above: Performed By: #### L 300.3900, L100.0500 #### [facility] [address] [place], [address] ALT [Catalytic activity/Vol] 35 U/L Normal 13-56 [facility] Comment on above: Performed By: #### L 300.3900, L100.0500 #### [facility] [address] [place], [address] AST [Catalytic activity/Vol] 30 U/L Normal 15-37 [facility] Comment on above: Performed By: #### L 300.3900, L100.0500 #### [facility] [address] [place], [address] Bilirubin [Mass/Vol] 0.50 mg/dL Normal 0.20-1.00 [facility] Comment on above: Result Comment: For patients on eltrombopag therapy, use of Dimension [place] TBIL is not recommended. Performed By: #### L 300.3900, L100.0500 #### [facility] [address] [place], [address] BUN/CRE 21.2 RATIO High 10-20 [facility] Comment on above: Performed By: #### L 300.3900, L100.0500 #### [facility] [address] [place], [address] CA,Total 9.4 mg/dL Normal 8.5-10.1 [facility] Comment on above: Performed By: #### L 300.3900, L100.0500 #### [facility] [address] [place], [address] Chloride [Moles/Vol] 107 mmol/L Normal 98-107 [facility] Comment on above: Performed By: #### L 300.3900, L100.0500 #### [facility] [address] [place], [address] CO2 [Moles/Vol] 31.0 mmol/L Normal 21.0-32.0 [facility] Comment on above: Performed By: #### L 300.3900, L100.0500 #### [facility] [address] [place], [address] Creatinine [Mass/Vol] 0.90 mg/dL Normal 0.55-1.[address] [facility] Comment on above: Result Comment: The validity of the calculated GFR GFRAA in patients over 70 years has not been determined. Clinical correlation is essential. Performed By: #### L 300.3900, L100.0500 #### [facility] [address] [place], [address] ECRCL 71.29 ml/min Normal [facility] Comment on above: Performed By: #### L 300.3900, L100.0500 #### [facility] [address] [place], [address] EST GFR - AA 83 mL/min Normal >60 [facility] Comment on above: Result Comment: Afri can German GFR Calc Performed By: #### L 300.3900, L100.0500 #### [facility] [address] [place], [address] GAP 4 Low 5-15 [facility] Comment on above: Performed By: #### L 300.3900, L100.0500 #### [facility] [address] [place], [address] GFR/1.73 sq M.predicted among non-blacks MDRD (S/P/Bld) [Vol rate/Area] 68 mL/min/{1.73_m2} Normal >60 [facility] Comment on above: Result Comment: Non- GFR Calc Performed By: #### L 300.3900, L100.0500 #### [facility] [address] [place], [address] Globulin (S) [Mass/Vol] 3.8 g/dL Normal 2.2-4.2 [facility] Comment on above: Performed By: #### L 300.3900, L100.0500 #### [facility] [address] [place], [address] Glucose [Mass/Vol] 100 mg/dL Normal 74-106 [facility] Comment on above: Result Comment: Fast ing Glucose result from 100 to 125 mg/dL suggests IMPAIRED HOMEOSTASIS per A.D.A. criteria. Performed By: #### L 300.3900, L100.0500 #### [facility] [address] [place], [address] Potassium [Moles/Vol] 3.8 mmol/L Normal 3.5-5.[address] [facility] Comment on above: Performed By: #### L 300.3900, L100.0500 #### [facility] [address] [place], [address] Sodium [Moles/Vol] 142 mmol/L Normal 136-145 [facility] Comment on above: Performed By: #### L 300.3900, L100.0500 #### [facility] [address] [place], [address] T PROT 7.4 g/dL Normal 6.4-8.2 [facility] Comment on above: Performed By: #### L 300.3900, L100.0500 #### [facility] [address] [place], [address] Urea nitrogen [Mass/Vol] 19 mg/dL High 7-18 [facility] Comment on above: Performed By: #### L 300.3900, L100.0500 #### [facility] [address] [place], [address] EGD Reporton 03-28-2024 EGD Report [facility] Medical Records Department [address] [place] [address] EGD Report MR#: [id number] Acct: [id number] Name: GARDENIA MUJICA Rep #: [id number] : 1965 58 From: Trung Payne DO PCP: Dr. Marcel Moya MD Status:ADM IN Patient Name: Gardenia Mujica Procedure Date: 03/28/2024 3:52 PM Date of : 1965 Age: 58 Procedure: Upper GI endoscopy Indications: Epigastric abdominal pain, Coffee-ground emesis, Hematochezia Providers: Trung Payne DO Medicines: Monitored Anesthesia Care Patient Profile: This is a 58 year old female. Refer to note in patient chart for documentation of history and physical. Patient has symptoms of acute vomiting. Complications: No immediate complications. Procedure: Pre-Anesthesia Assessment: - Prior to the procedure, a History and Physical was performed, and patient medications and allergies were reviewed. The patient is competent. The risks and benefits of the procedure and the sedation options and risks were discussed with the patient. All questions were answered and informed consent was obtained. Patient identification and proposed procedure were verified by the physician in the pre-procedure area. Mental Status Examination: alert and oriented. Airway Examination: normal oropharyngeal airway and neck mobility. Respiratory Examination: clear to auscultation. CV Examination: normal. Prophylactic Antibiotics: The patient does not require prophylactic antibiotics. Prior Anticoagulants: The patient has taken no anticoagulant or antiplatelet agents except for NSAID medication. ASA Grade Assessment: II - A patient with mild systemic disease. After reviewing the risks and benefits, the patient was deemed in satisfactory condition to undergo the procedure. The anesthesia plan was to use monitored anesthesia care (MAC). Immediately prior to administration of medications, the patient was re-assessed for adequacy to receive sedatives. The heart rate, respiratory rate, oxygen saturations, blood pressure, adequacy of pulmonary ventilation, and response to care were monitored throughout the procedure. The physical status of the patient was re-assessed after the procedure. After obtaining informed consent, the endoscope was passed under direct vision. Throughout the procedure, the patient's blood pressure, pulse, and oxygen saturations were monitored continuously. The Endoscope was introduced through the mouth, and advanced to the fourth part of the duodenum. Small bowel enteroscopy was deemed necessary. The upper GI endoscopy was accomplished without difficulty. The patient tolerated the procedure well. Scope In: 4:15:36 PM Scope Out: 4:29:32 PM Total Procedure Duration Time 0 hours 13 minutes 56 seconds Findings: The examined esophagus was normal. One non-obstructing oozing cratered gastric ulcer of moderate to significant severity with a visible vessel was found on the lesser curvature of the stomach. The lesion was 20 mm in largest dimension. There is no evidence of perforation. Coagulation for hemostasis using heater probe was successful. For hemostasis, one hemostatic clip was successfully placed. 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 There was no bleeding at the end of the procedure. Estimated blood loss was minimal. Evidence of a stenosed vertical banded gastroplasty was found. A gastric pouch 8 cm wide with a large size was found containing blood and ulceration. The staple line appeared intact. Evidence of a Silastic band was not seen and appeared intact. This was traversed. Two oozing linear gastric ulcers with pigmented material were found in the gastric body. The largest lesion was 6 mm in largest dimension. Coagulation for hemostasis using heater probe was successful. Estimated blood loss was minimal. The fourth portion of the duodenum was normal. Impression: - Normal esophagus. - Non-obstructing oozing gastric ulcer with a visible vessel. There is no evidence of perforation. Treated with a heater probe. Clip was placed. 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 - Stenosed vertical banded gastroplasty with a large-sized pouch and intact staple line and band appears intact. - Oozing gastric ulcers with pigmented material. Treated with a heater probe. - Normal fourth portion of the duodenum. - No specimens collected. Recommendation: - Return patient to hospital younger for ongoing care. - Clear liquid diet today. - Continue present medications. - Give Protonix (pantoprazole): initiate therapy with 80 mg IV bolus, then 8 mg/hr IV by continuous infusion. Procedure Code(s): --- Professional --- 69643, Small intestinal endoscopy, enteroscopy beyond second portion of duodenum, not including ileum; with control of bleeding (eg, injection, bipolar cautery, unipolar cautery, laser, h (more content not included)... Normal [facility] Emergency Department Summary on 03-28-2024 Emergency Department Summary [facility] Medical Records Department [address] [place] [address] Emergency Department Summary 03/28/24 MR#: [id number] Acct: [id number] Name: SILBRETMono TY Rep #: [id number] : 1965 58 From: Sharath Forrest MD PCP: Dr. Marcel Moya MD Status:REG ER Location: ED HPI HPI - GI History of Present Illness Chief Complaint: GI Bleed Narrative Narrative: 58-year-old female past medical history of previous duodenal ulcer bleeding about a year ago presents with nausea and vomiting as well as epigastric abdominal pain and nausea. She suspects that she is having another bleeding ulcer. She has past medical history of aortic valve replacement, mechanical, on Coumadin. She relates history that about a year ago she was diagnosed with a bleeding ulcer from H. pylori. On Tuesday, she noticed dark stool, almost black but had been eating a lot of dark berries/blueberries and blackberries and thought it may have been from that. Yesterday evening she developed nausea and vomiting and coffee-ground emesis. She also felt a little lightheaded. She denies any severe abdominal pain but states that she feels off, and somewhat lightheaded and nauseated. She denies any other bleeding diathesis. She is followed up with Dr. Payne regarding her duodenal ulcers. Past medical history also includes gastroparesis. [facility] Medical History Thoracic aortic aneurysm Nonrheumatic aortic (valve) insufficiency Bicuspid aortic valve Hyperlipidemia GERD (gastroesophageal reflux disease) History of malignant neoplasm of cervix Abnormal Pap smear of cervix Hypertension Home Medications ???Medication ???Instructions ???Recorded ???Last Taken ???Type warfarin 3 mg tablet 3 mg PO DAILY [facility] Unknown Rx tabs amlodipine 5 mg tablet 5 mg PO QDAY 01/28/24 Unknown Hist ory hydroxyzine HCl 25 mg tablet 25 mg PO QHS 01/28/24 Unknown Hist ory pantoprazole 40 mg tablet,delayed 40 mg PO BID 01/28/24 Unknown His tory release ondansetron 4 mg disintegrating 4 mg PO Q8H #30 tabs 03/02/24 Unkn own Rx tablet Allergy/AdvReac Type Severity Reaction Status Date / Time No Known Allergies Allergy Verified 01/28/24 08:23 Family History Grandmother Heart disease Mother Heart disease Surgical History Status post aortic valve replacement ( 05/28/09) History of thoracic aortic aneurysm repair ( 05/28/09) History of aortic valve replacement with metallic valve ( 05/28/09) delivery delivered S/P gastroplasty Hx of cholecystectomy femur surgery Mechanical heart valve present Hx of abdominal hysterectomy Social History Smoking Status: Never smoker alcohol intake: never substance use type: does not use caffeine: Yes what type of physical activity do you participate in: running and other details: crossfit frequency: 3-4 times per week seatbelt use: always do you feel safe at home: Yes additional social history: Claudia Ramirez 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 Cardiovascular: No chest pain. No palpitations. No pedal edema. Respiratory: No cough, no shortness of breath. Abdominal: Mild epigastric abdominal pain. Positive nausea, positive vomiting coffee-ground emesis. Reported black stool. Genitourinary: No dysuria. No hematuria. Musculoskeletal: No myalgias. No arthralgias. Neurologic: No headaches. No dizziness. Positive lightheadedness Skin: No rash. No change in color. EXAM Physical Exam Narrative Exam Narrative: Afebrile. Vital signs noted. Nontoxic-appearing. HEENT examination grossly unremarkable, airway patent. Cardiovascular examination reveals a regular rate and rhythm. Lungs clear to auscultation bilaterally. Abdomen soft minimal tenderness in epigastrium, no guarding or rebound. Positive bowel sounds. Neurological examination nonfocal, nonlateralizing, alert, oriented. No central cyanosis or pallor. Const Vital Signs: 03/28/24 08:33 03/28/24 08:35 Temperature 97.1 F L 97.1 F L Temperature Source Temporal Temporal Pulse Rate 75 75 Respiratory Rate 16 16 Blood Pressure 128/86 H 128/86 H Blood Pressure Mean 100 100 Pulse Ox 100 100 Oxygen Delivery Method Room Air Room Air MDM MDM MDM Narrative Medical decision making narrative: Differential diagnosis includes but not limited to gastroparesis versus Kathy-Colon tear versus duodenal ulcer bleeding. I discussed with the patient the necessity of placing NG tube. Comprehensive workup was pursued. I am more suspicious for upper GI bleeding given that she is o (more content not included)... Normal [facility] Eosinophil percentageOrdered By: Sharath Forrest on 03-28-2024 Eosinophils/100 WBC (Bld) 4.7 % 0-5 [facility] Erythrocyte distribution wid th ratioOrdered By: Sharath Forrest on 03-28-2024 Erythrocyte distribution width (RBC) [Ratio] 14.3 % 11.6-14.6 [facility] Erythrocyte distribution wid th standard deviationOrdered By: Sharath Forrest on 03-28-2024 Erythrocyte distribution width (RBC) [Entitic vol] 45.1 fL High 35.1-43.9 [facility] Erythrocyte distribution width (RBC) [Ratio] 45.1 fl High 35.1-43.9 [facility] Estimated glomerular filtrat ion rate (GFR) AmericanOrdered By: Sharath Forrest on 03-28-2024 Estimated GFR (MDRD) Amer 83 mL/min >60 [facility] Comment on above: GFR Calc Estimation of creatinine eagle aranceOrdered By: Sharath Forrest on 03-28-2024 Estimated Creatinine Clearance Calc 71.29 ml/min [facility] Glomerular filtration rate ( GFR) estimationOrdered By: Sharath Forrest on 03-28-2024 Estimated GFR (MDRD) Non-Af Amer 68 mL/min >60 [facility] Comment on above: Non- GFR Calc GFR/1.73 sq M.predicted among non-blacks MDRD (S/P/Bld) [Vol rate/Area] 68 mL/min/{1.73_m2} >60 [facility] Comment on above: Non- GFR Calc Glucose measurementOrdered B y: Sharath Forrest on 03-28-2024 Glucose [Mass/Vol] 100 mg/dL 74-106 [facility] Comment on above: Fasting Glucose resu lt from 100 to 125 mg/dL suggests IMPAIRED HOMEOSTASIS per A.D.A. criteria. H AND P Exam - [place] 03-28-2024 H&P Exam - Hospitalist [facility] Medical Records Department [address] [place] [address] H P Exam - Hospitalist 03/28/24 1930 MR#: [id number] Acct: [id number] Name: GARDENIA MJUICA Rep #: [id number] : 1965 58 From: Mejia Wheeler DO PCP: Dr. Marcel Moya MD Status:ADM IN Location: [place] [id number] HPI - General General Date of Admission: 03/28/24 Date of Service: 03/28/24 Chief Complaint: Coffee-ground emesis, abdominal pain, lightheadedness HPI Narrative GARDENIA MUJICA, is a 58 F who presents to the emergency room at [facility] with complaints of vomiting coffee-ground emesis, abdominal pain, and lightheadedness which started 2 days ago. Patient has a history of peptic ulcer disease in the past and had a gastroplasty in the past. Patient has a history of an artificial mechanical aortic valve and takes Coumadin chronically. He gets most of her care at the [facility] and is disabled from the MI due to PTSD. Lab obtained in the emergency room showed her hemoglobin to be 14, chemistry profile was unremarkable, alkaline phosphatase was slightly elevated at 168. INR was 2.6. An NG tube was inserted with return of coffee-ground material. I talked with gastroenterology and patient will be admitted and have an EGD performed today. [facility] Medical History Thoracic aortic aneurysm Nonrheumatic aortic (valve) insufficiency Bicuspid aortic valve Hyperlipidemia GERD (gastroesophageal reflux disease) History of malignant neoplasm of cervix Abnormal Pap smear of cervix Hypertension Home Medications ???Medication ???Instructions ???Recorded ???Last Taken ???Type amlodipine 5 mg tablet 5 mg PO DAILY 01/28/24 03/28/24 Hi story pantoprazole 40 mg tablet,delayed 40 mg PO BID 01/28/24 03/28/24 Hi story release hydroxyzine HCl 10 mg tablet 10 mg PO QHS SLEEP 03/28/24 History warfarin 3 mg tablet 3 mg PO SUTUTHSA BLOOD THINNER 02/0703/27/24 History warfarin 3 mg tablet (Jantoven) 4.5 mg PO MOWEFR BLOOD THINNER 02/0703/28/24 History Allergy/AdvReac Type Severity Reaction Status Date / Time No Known Allergies Allergy Verified 01/28/24 08:23 Family History Grandmother Heart disease Mother Heart disease Surgical History Status post aortic valve replacement ( 05/28/09) History of thoracic aortic aneurysm repair ( 05/28/09) History of aortic valve replacement with metallic valve ( 05/28/09) delivery delivered S/P gastroplasty Hx of cholecystectomy femur surgery Mechanical heart valve present Hx of abdominal hysterectomy Social History Smoking Status: Never smoker alcohol intake: never substance use type: does not use caffeine: Yes what type of physical activity do you participate in: running and other details: crossfit frequency: 3-4 times per week seatbelt use: always do you feel safe at home: Yes additional social history: Claudia Ramirez 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 Constitutional Constitutional: Denies anorexia, change in weight, chills, fatigue, fever(s), night sweats or weakness Eyes Eyes: Denies blurry vision, change in vision, discharge from eye(s) or eye pain Cardiovascular Cardiovascular: Denies chest pain, claudication, edema or palpitations Respiratory/Chest Respiratory/Chest: Denies cough, excessive phlegm production, hemoptysis, shortness of breath at rest or shortness of breath with exertion Gastrointestinal Gastrointestinal: Reports abdominal pain, coffee ground emesis and vomiting; Denies constipation, diarrhea, hematemesis, hematochezia, melena or nausea Genitourinary Genitourinary: Denies dysuria, hematuria, urinary frequency, urinary hesitancy, urinary incontinence or urinary urgency Musculoskeletal Musculoskeletal: Denies back pain, joint pain, joint stiffness, joint swelling, myalgias or neck pain Neurologic Neurologic: Denies abnormal gait, abnormal speech, dizziness, focal weakness, headache(s), loss of vision, numbness, other visual disturbances, paresthesias, syncope or tingling Psychiatric Psychiatric: Denies anxiety, cognitive impairment, depression, irritability, mood swings or suicidal ideation Endocrine Endocrinology: Denies change in body appearance, cold intolerance, excessive sweating, heat intolerance, polydipsia or polyuria Hematologic/Lymphatic Hematologic/Lymphatic: Denies none, anemia, easy bleeding, easy bruising or lymphadenopathy Allergic/Immunologic Allergic/Immunologic: Denies rhinitis, urticaria, eczemia or asthma Vital Signs Vital Signs Vital Signs: 03/28/24 08:33 03/28/24 08:35 03/28/24 10:49 (more content not included)... Normal [facility] H. PYLORI STOOL AGon 025 H PYLORI STL AG Negative Normal Negative [facility] Comment on above: Result Comment: Perf ormed at: - [facility] [address] [id number] Dowel Inspector: Chet Murray PhD, Phone: [phone] Performed By: #### L 300.3900, L100.0500 #### [facility] [address] [place], [address] HH, Hemoglobin AND Hematocri ton 03-28-2024 Hematocrit (Bld) [Volume fraction] 36.7 % Low 37-47 [facility] Comment on above: Performed By: #### L 300.3900, L100.0500 #### [facility] [address] [place], [address] Hemoglobin (Bld) [Mass/Vol] 12.7 g/dL Normal 12.0-15.0 [facility] Comment on above: Performed By: #### L 300.3900, L100.0500 #### [facility] [address] [place], [address] Hematocrit (Bld) [Volume fraction] 37.9 % Normal -[address] [place] [address] Comment on above: Performed By: #### L 300.3900, L100.0500 #### [facility] [address] [place], [address] Hemoglobin (Bld) [Mass/Vol] 13.0 g/dL Normal 12.0-15.0 [facility] Comment on above: Performed By: #### L 300.3900, L100.0500 #### [facility] [address] [place], [address] Hematocrit (Bld) [Volume fraction] 39.0 % Normal [address] [place] [address] Comment on above: Performed By: #### L 300.3900, L100.0500 #### [facility] [address] [place], [address] Hemoglobin (Bld) [Mass/Vol] 13.6 g/dL Normal 12.0-15.0 [facility] Comment on above: Performed By: #### L 300.3900, L100.0500 #### [facility] [address] [place], [address] Hematocrit (Bld) [Volume fraction] 40.4 % Normal [address] [place] [address] Comment on above: Performed By: #### L 300.3900, L100.0500 #### [facility] [address] [place], [address] Hemoglobin (Bld) [Mass/Vol] 14.0 g/dL Normal 12.0-15.0 [facility] Comment on above: Performed By: #### L 300.3900, L100.0500 #### [facility] [address] [place], [address] Hematocrit Auto (Bld) [Volum e fraction]Ordered By: Mejia Wheeler on 03-28-2024 Hematocrit (Bld) [Volume fraction] 36.7 % Low 37-47 [facility] Hemoglobin measurementOrdere d By: Mejia Wheeler on 03-28-2024 Hemoglobin (Bld) [Mass/Vol] 12.7 g/dL 12.0-15.0 [facility] Immature granulocytes/100 WB C Auto (Bld)Ordered By: Sharath Forrest on 03-28-2024 Immature granulocytes/100 WBC (Bld) 0.300 % 0.0-0.9 [facility] Comment on above: IG% - Immature Granu locytes (promyelocytes, myelocytes and metamyelocytes) > 1% indicates that a LEFT SHIFT is Present. Laboratory - Chemistry and C hemistry - challengeOrdered By: Sharath Forrest on 03-28-2024 AST [Catalytic activity/Vol] 30 U/L 15-37 [facility] Lipaseon 03-28-2024 Lipase [Catalytic activity/Vol] 34 U/L Low 73-393 [facility] Comment on above: Performed By: #### L 300.3900, L100.0500 #### [facility] [address] [place], [place], [id number] Lipase measurementOrdered By : Sharath Forrest on 03-28-2024 Lipase [Catalytic activity/Vol] 34 U/L Low 73-393 [facility] Lymphocytes Auto (Unsp spec) [#/Vol]Ordered By: Sharath Forrest on 03-28-2024 Lymphocytes (Bld) [#/Vol] 1.28 10*3/uL 0.83-4.51 [facility] Lymphocytes/100 WBC Auto (Un sp spec)Ordered By: Sharath Forrest on 03-28-2024 Lymphocytes/100 WBC (Bld) 13.9 % Low 19-41 [facility] MCV (mean corpuscular volume ) determinationOrdered By: Sharath Burkfredrickmono on 03-28-2024 MCV (RBC) [Entitic vol] 86.5 fL 81-99 [facility] MR/CON.PCM.GIon 03-28-2024 MR/CON.PCM.GI [facility] Medical Records Department [address] [place] [address] Consultation - GI 03/28/24 1551 MR#: [id number] Acct: [id number] Name: GARDENIA MUJICA Rep #: [id number] : 1965 58 From: Trung Payne DO PCP: Dr. Marcel Moya MD Status:ADM IN Location: [place] [id number] HPI Consult Data Date of Consult: 03/28/24 HPI Narrative Reason for Consultation: GI bleeding HPI Narrative: GARDENIA MUJICA, is a 58-year-old female past medical history of previous duodenal ulcer bleeding about a year ago presents with nausea and vomiting as well as epigastric abdominal pain and nausea. She suspects that she is having another bleeding ulcer. She has past medical history of aortic valve replacement, mechanical, on Coumadin. She relates history that about a year ago she was diagnosed with a bleeding ulcer from H. pylori. On Tuesday, she noticed dark stool, almost black but had been eating a lot of dark berries/blueberries and blackberries and thought it may have been from that. Yesterday evening she developed nausea and vomiting and coffee-ground emesis. She also felt a little lightheaded. She denies any severe abdominal pain but states that she feels off, and somewhat lightheaded and nauseated. She denies any other bleeding diathesis. [facility] Medical History Thoracic aortic aneurysm Nonrheumatic aortic (valve) insufficiency Bicuspid aortic valve Hyperlipidemia GERD (gastroesophageal reflux disease) History of malignant neoplasm of cervix Abnormal Pap smear of cervix Hypertension Home Medications ???Medication ???Instructions ???Recorded ???Last Taken ???Type amlodipine 5 mg tablet 5 mg PO DAILY 01/28/24 03/28/24 Hi story pantoprazole 40 mg tablet,delayed 40 mg PO BID 01/28/24 03/28/24 Hi story release hydroxyzine HCl 10 mg tablet 10 mg PO QHS SLEEP 03/28/24 History warfarin 3 mg tablet 3 mg PO SUTUTHSA BLOOD THINNER 02/0703/27/24 History warfarin 3 mg tablet (Jantoven) 4.5 mg PO MOWEFR BLOOD THINNER 02/0703/28/24 History Allergy/AdvReac Type Severity Reaction Status Date / Time No Known Allergies Allergy Verified 01/28/24 08:23 Family History Grandmother Heart disease Mother Heart disease Surgical History Status post aortic valve replacement ( 05/28/09) History of thoracic aortic aneurysm repair ( 05/28/09) History of aortic valve replacement with metallic valve ( 05/28/09) delivery delivered S/P gastroplasty Hx of cholecystectomy femur surgery Mechanical heart valve present Hx of abdominal hysterectomy Social History Smoking Status: Never smoker alcohol intake: never substance use type: does not use caffeine: Yes what type of physical activity do you participate in: running and other details: crossfit frequency: 3-4 times per week seatbelt use: always do you feel safe at home: Yes additional social history: Claudia Ramirez Daily Patient works at [employer] Social ROS Constitutional Constitutional: Denies fatigue, fever(s), poor appetite, weight gain or weight loss Gastrointestinal Gastrointestinal: Denies belching, bloating, change in bowel habits, change in stool character, chewing difficulty, coffee ground emesis, constipation, cramping, diarrhea, dyspepsia, dysphagia, early satiety, excessive flatus, fecal incontinence, heartburn, hematemesis, hematochezia, hemorrhoids, loose stools, melena, nausea, odynophagia, rectal bleeding, tenesmus, vomiting or weight changes Physical Exam Const alert, oriented x3, no apparent distress and healthy appearing General Appearance: cooperative GI normal to inspection, nondistended, normoactive bowel sounds, soft to palpation, non-tender and non- distended Percussion: normal to percussion Rectal Exam: deferred Lab / Micro Data 03/28/24 11:50 03/28/24 08:49 Labs: Laboratory Results - last 24 hr 03/28/24 08:45: WBC 9.2, RBC 4.51, Hgb 13.5, Hct 39.0, MCV 86.5, MCH 29.9, MCHC 34.6, RDW Std Deviation 45.1 H, RDW Coeff of Peterson 14.3, Plt Count 278, MPV 9.7, Immature Gran % (Auto) 0.300, Neut % (Auto) 73.6 H, Lymph % (Auto) 13.9 L, [place] % (Auto) 7.1, Eos % (Auto) 4.7, Baso % (Auto) 0.4, Absolute Neuts (auto) 6.8, Absolute Lymphs (auto) 1.28, Nucleated RBC % 0 03/28/24 08:49: PT 28.5 H, INR 2.6, Sodium 142, Potassium 3.8, Chloride 107, Carbon Dioxide 31.0, A nion Gap 4 L, BUN 19 H, Creatinine 0.90, Estim Creat Clear Calc 71.29, Est GFR (MDRD) Af Amer 83, Est GFR (MDRD) Non-Af 68, BUN/Creatinine Ratio 21.2 H, Glucose 100, Calcium 9.4, Total Bilirubin 0.50, AST 30, ALT 35, Alkaline Phosphatase 168 H, Total Protein 7.4, Albumin 3.6, Gl (more content not included)... Normal [facility] MR/POSTOP.ANE 03-28-2024 MR/POSTOP.[facility] Medical Records Department [address] [place] [address] Anesthesia Postop Eval I 03/28/24 1641 MR#: [id number] Acct: [id number] Name: GARDENIA MUJICA MELONY Rep #: [id number] : 1965 58 From: Dwain Shelton CRNA PCP: Dr. Marcel Moya MD Status:ADM IN Y Race: C Location: [place] [address] Anesthesia: Postop Eval I Current Vital Signs Temperature: 98.2 F Pulse Rate: 92 Blood Pressure: 127/73 Respiratory Rate: 20 Pulse Ox: 93 Oxygen Delivery Method: Nasal Cannula Oxygen Flow Rate (L/min): 4 Assessment Airway patent: Yes Spontaneous unlabored respirations: Yes Mental status: Awake nausea: No Vomiting: No Anesthesia Complication: No Fluid Hydration Crystalloid volume administer (ml): 50 Total IV fluid infused: 50 Progress Note Anesthesia document: Postop Eval 1 completed: Yes 03/28/24 164 Date Dwain Shelton PROFESSIONAL NURSING TUTOR Cosigner Signature: Date CC: Signed Normal [facility] MR/[id number] 03-28-2024 [facility] Medical Records Department [address] [place] [address] Anesthesia Postop Eval II 03/28/24 164 MR#: [id number] Acct: [id number] Name: GARDENIA MUJICA MELONY Rep #: [id number] : 1965 58 From: Dwain Shelton PROFESSIONAL NURSING TUTOR PCP: Dr. Marcel Moya MD Status:ADM IN Y Race: C Location: [place] [address] Anesthesia Postop Eval I Sum Postop Eval Completion status Anesthesia document: Postop Eval 1 completed: Yes Anesthesia Postop Eval I Summary Anesthesia Postop Eval I Summary: Anesthesia Postop Eval I: Assessment Summary Airway patent Yes 03/28/24 16:42 PROFESSIONAL NURSING TUTOR.JRIV Spontaneous unlabored Yes 03/28/24 16:42 PROFESSIONAL NURSING TUTOR.JRIV respirations Mental status Awake 03/28/24 16:42 PROFESSIONAL NURSING TUTOR.JRIV nausea No 03/28/24 16:42 PROFESSIONAL NURSING TUTOR.JRIV Vomiting No 03/28/24 16:42 PROFESSIONAL NURSING TUTOR.JRIV Anesthesia Postop Eval I: Fluid Summary Crystalloid volume administer 50 03/28/24 16:42 PROFESSIONAL NURSING TUTOR.JRIV (ml) Colloids volume administered ( ml) Blood Product volume administered (ml) Total IV fluid infused 50 03/28/24 16:42 PROFESSIONAL NURSING TUTOR.JRIV Anesthesia Postop Eval I: Summary Notes Anesthesia Complication No 03/28/24 16:42 PROFESSIONAL NURSING TUTOR.JRIV Anesthesia Complication Comment: Post-operative progress note Anesthesia: Postop Eval II Evaluation Mental status: Awake and Calm Pain Level: 0 nausea: No Vomiting: No Complications Anesthesia Complication: No 03/28/24 1642 Date Dwain Shelton PROFESSIONAL NURSING TUTOR Cosigner Signature: Date CC: Signed Normal [facility] Mean corpuscular hemoglobin (MCH) determinationOrdered By: Sharath Forrest on 03-28-2024 MCH (RBC) [Entitic mass] 29.9 pg 27.0-32.0 [facility] Mean corpuscular hemoglobin concentration (MCHC) determinationOrdered By: Sharath Forrest on 03-28-2024 MCHC (RBC) [Mass/Vol] 34.6 g/dL 32-[address] [facility] Mean platelet volume determi nationOrdered By: Sharath Forrest on 03-28-2024 Platelet mean volume (Bld) [Entitic vol] 9.7 fL 6.2-12.0 [facility] Monocyte percentageOrdered B y: Sharath Forrest on 03-28-2024 Monocytes/100 WBC (Bld) 7.1 % 0-10 [facility] Neutrophil percentageOrdered By: Sharath Forrest on 03-28-2024 Neutrophils/100 WBC (Bld) 73.6 % High 47-70 [facility] Nucleated red blood cell per centageOrdered By: Sharath Forrets on 03-28-2024 Nucleated RBC/100 WBC (Bld) [Ratio] 0 % 0-5 [facility] Platelet countOrdered By: Crow Forrest on 03-28-2024 Platelets (Bld) [#/Vol] 278 10*3/uL 150-450 [facility] Potassium measurementOrdered By: Sharath Forrest on 03-28-2024 Potassium [Moles/Vol] 3.8 mmol/L 3.5-5.[address] [facility] Prothrombin Time w/INRon INR Coag (PPP) [Relative time] 2.6 {INR} Normal [facility] Comment on above: Performed By: #### L 300.3900, L100.0500 #### [facility] [address] [place], [address] PT Coag (PPP) [Time] 28.5 s High 11.7-14.9 [facility] Comment on above: Performed By: #### L 300.3900, L100.0500 #### [facility] [address] [place], [address] RBC Auto (Bld) [#/Vol]Ordere d By: Sharath Forrest on 03-28-2024 RBC (Bld) [#/Vol] 4.51 10*6/uL 4.2-5.4 [facility] Serum anion gap measurementO rdered By: Sharath Forrest on 03-28-2024 Anion gap [Moles/Vol] 4 mmol/L Low 5-[address] [facility] Serum globulin measurementOr dered By: Sharath Forrest on 03-28-2024 Globulin (S) [Mass/Vol] 3.8 g/dL 2.2-4.2 [facility] Serum or plasma alanine foster otransferase (ALT) measurementOrdered By: Sharath Forrest on 03-28-2024 ALT [Catalytic activity/Vol] 35 U/L 13-56 [facility] Serum or plasma albumin tika urement (mass/volume)Ordered By: Sharath Forrest on 03-28-2024 Albumin [Mass/Vol] 3.6 g/dL 3.2-5.0 [facility] Serum or plasma alkaline roberto sphatase measurementOrdered By: Sharath Forrest on 03-28-2024 ALP [Catalytic activity/Vol] 168 U/L High 45-117 [facility] Serum or plasma calcium tika urement (mass/volume)Ordered By: Sharath Forrest on 03-28-2024 Calcium [Mass/Vol] 9.4 mg/dL 8.5-10.1 [facility] Serum or plasma creatinine m easurement (mass/volume)Ordered By: Sharath Forrest on 03-28-2024 Creatinine [Mass/Vol] 0.90 mg/dL 0.55-1.[address] [facility] Comment on above: The validity of the calculated GFR & GFRAA in patients over 70 years has not been determined. Clinical correlation is essential. Serum or plasma urea nitroge n measurement (mass/volume)Ordered By: Sharath Forrest on 03-28-2024 Urea nitrogen [Mass/Vol] 19 mg/dL High 7-18 [facility] Sodium levelOrdered By: Sharath Forrest on 03-28-2024 Sodium [Moles/Vol] 142 mmol/L 136-145 [facility] Total proteinOrdered By: Kamala Forrest on 03-28-2024 Protein [Mass/Vol] 7.4 g/dL 6.4-8.2 [facility] White blood cell (WBC) count Ordered By: Sharath Forrest on 03-28-2024 WBC (Bld) [#/Vol] 9.2 10*3/uL 4.4-11.0 [facility] H. pylori Ag IA Ql (Stl)Orde red By: Sandrine Walker on 03-26-2024 Stool Helicobacter pylori Antigen Negative Negative [facility] Comment on above: Performed at: [address] [id number] Director: Chet Murray PhD, Phone: [phone] Prothrombin Time w/INRon INR Coag (PPP) [Relative time] 2.3 {INR} Normal [facility] Comment on above: Order Comment: PLEAS E FAX Performed By: #### L 610.0224, L100.0500 #### [facility] [address] [place], [address] PT Coag (PPP) [Time] 25.9 s High 11.7-14.9 [facility] Comment on above: Order Comment: PLEAS E FAX Performed By: #### L [id number], L100.0500 #### [facility] [address] [place], [address] Stool Helicobacter pylori an tigen detection by immunoassayOrdered By: Sandrine Walker on 03-26-2024 H. pylori Ag IA Ql (Stl) Negative Negative [facility] Comment on above: Performed at: [address] [id number] Director: Chet Murray PhD, Phone: [phone] International normalized rat io (INR) calculationOrdered By: Shabbir Kapadia on 03-05-2024 INR Coag (Bld) [Relative time] 2.5 {INR} [facility] Prothrombin Time w/INRon INR Coag (PPP) [Relative time] 2.5 {INR} Normal [facility] Comment on above: Performed By: #### L 300.3900, L100.0500 #### [facility] [address] [place], [address] PT Coag (PPP) [Time] 27.2 s High 11.7-14.9 [facility] Comment on above: Performed By: #### L 300.3900, L100.0500 #### [facility] [address] [place], [address] Prothrombin timeOrdered By: Shabbir Kapadia on 03-05-2024 PT Coag (PPP) [Time] 27.2 s High 11.7-14.9 [facility] Urine Cultureon 03-04-2024 [facility] Mixed Gram Pos Gram Neg Org [place] Count 25,000-50,000 [facility] Mixed contaminants. Submit a new specimen if indicated. Normal [facility] Comment on above: Performed By: #### L 300.3900, L100.0500 #### [facility] [address] [place], [address] Bilirubin Test strip Ql (U)O rdered By: Marcel Moya on 03-02-2024 Bilirubin Ql (U) Negative Negative [facility] Epithelial cells.squamous LM Ql (Urine sed)Ordered By: Marcel Moya on 03-02-2024 Epithelial cells.squamous LM.HPF (Urine sed) [#/Area] 10 /[HPF] 5-10 [facility] Gastroenterology Visit Repor ton 03-02-2024 Gastroenterology Visit Report [facility] [address] [place] [address] OFFICE VISIT Date of Service: 03/02/24 MR#: [id number] Acct: [id number] Name: GARDENIA MUJICA Rep #: [id number] : 1965 Provider: MADY Goetz Age/Sex: 58/F [place] [facility] [place] Status: Signed Intake Vital Signs 11/30/23 17:18 01/28/24 08:22 Height 5 ft 4 in 5 ft 4 in Intake Visit Reasons: Gastroparesis Chief Complaint: gastroparesis Allergies No Known Allergies Allergy (Verified 01/28/24 08:23) Nurse's Note: OV 03.02.24 Pt here to establish care with [facility]. Pt reports N/V, constipation, diarrhea, heartburn, gas and bloating. Has hx of ulcer. In her 20s she had a gastroplasty, gallbladder removed when she was in her 20s. Prior hx of EGD and colonoscopy. [facility] Medical History Thoracic aortic aneurysm Nonrheumatic aortic (valve) insufficiency Bicuspid aortic valve Hyperlipidemia GERD (gastroesophageal reflux disease) History of malignant neoplasm of cervix Abnormal Pap smear of cervix Hypertension Surgical History Status post aortic valve replacement ( 05/28/09) History of thoracic aortic aneurysm repair ( 05/28/09) History of aortic valve replacement with metallic valve ( 05/28/09) delivery delivered S/P gastroplasty Hx of cholecystectomy femur surgery Mechanical heart valve present Hx of abdominal hysterectomy Family History Grandmother Heart disease Mother Heart disease Social History Smoking Status: Never smoker alcohol intake: never substance use type: does not use caffeine: Yes what type of physical activity do you participate in: running and other details: crossfit frequency: 3-4 times per week seatbelt use: always do you feel safe at home: Yes additional social history: WoodyGuillermina Ashley Daily Patient works at [employer] Lab HPI HPI Chief Complaint: gastroparesis Details: GARDENIA MUJICA, is a 58 F who presents to the office today for establishment. Pt [facility] and was diagnosed many years ago with gastroparesis. She has had a GES in the past but not one recently. She has only been treated with pantoprazole 40 mg BID. She wanted a second opinion from us as her doctors at the [facility] were suggesting a gastric bypass surgery which she was not comfortable with. She has nausea daily and is vomiting 3x per week on average. Her nausea is unpredictable and not always after she eats. She does have bloating as well. She has a hx of gastric ulcer about two years ago with last EGD being one year ago. SHe has alternating constipation and loose stool which is normal for her. ROS Const Constitutional: Positive for fatigue; No fever(s) or weight change ENT ENT: No difficulty swallowing Gastro GI: Positive for abdominal pain, bloating, constipation, diarrhea, excessive flatus, nausea/dyspepsia and vomiting; No belching, change in bowel habits, change in stool character, coffee ground emesis, cramping, heartburn, difficulty swallowing, feeling full early, incontinent of stools, Vomiting blood/hematemesis, Blood in stool, loose stools, Black,tarry stools, pain with swallowing or other Musc Musculoskeletal: No joint pain Skin Skin: No yellowing of the eye or itchy eyes Psych Psychiatric: Positive for anxiety and Positive for depression Endo Endocrine: Positive for fatigue; No weight change Aller/Imm Allergy/Immunologic: No itchy eyes Edson/Lymp Hematologic/Lymphatic: Positive for easy bruising; No easy bleeding Exam Const General: cooperative and comfortable Nutritional Appearance: average body habitus and well nourished [facility] Head: normal to inspection Ears: hearing grossly normal bilaterally Nose: external nose normal Face and sinus: normal facial exam Eyes General: appearance normal, both eyes and all related structures Neck Neck: normal visual inspection Chest Chest palpation inspection: normal inspection of the chest and normal palpation of entire chest wall Resp Effort Inspection: normal respiratory effort Auscultation: Bilateral: Clear to Auscultation Cardio Palpation: normal PMI Rate: regular rate Rhythm: regular rhythm GI Inspection: normal to inspection Auscultation: normal bowel sounds Percussion: normal to percussion Palpation: no hepatosplenomegaly Skin General: no rashes or lesions noted Neuro General: patient alert Extrem General: normal to inspection Psych Affect: normal affect Assessment and Plan Assessment and Plan (1) Gastroparesis: Status: Acute Plan: This is a 58 yo female with PMHx of gastroparesis here today for a (more content not included)... Normal [facility] Glucose Ql (U)Ordered By: Jose Moya on 03-02-2024 Urine Glucose (UA) Normal mg/dl Normal [facility] Ketones Test strip Ql (U)Ord ered By: Marcel Moya on 03-02-2024 Ketones Ql (U) Negative Negative [facility] Microscopic analysis of urin e for red blood cells (RBC)Ordered By: Marcel Moya on 03-02-2024 Urine RBC 10-25 SEEN /hpf 0-5 [facility] Mucus LM Ql (Urine sed)Order ed By: Marcel Moya on 03-02-2024 Mucus Ql (Urine sed) 2+ /hpf [facility] Nitrite Test strip Ql (U)Ord ered By: Marcel Moya on 03-02-2024 Nitrite Ql (U) Negative Negative [facility] Protein Test strip Ql (U)Ord ered By: Marcel Moya on 03-02-2024 Protein Ql (U) 30 mg/dl High Negative [facility] Urinalysis, Completeon 03-02 BACTERIA 2+ /hpf Normal None Seen [facility] Comment on above: Order Comment: Urine , Random Performed By: #### L 300.3900, L100.0500 #### [facility] [address] [place], [place], [id number] Mucus Ql (Urine sed) 2+ /hpf Normal [facility] Comment on above: Order Comment: Urine , Random Performed By: #### L 300.3900, L100.0500 #### [facility] [address] [place], [address] EPI,SQUAMOUS 10-25 SEEN Normal 5-10 [facility] Comment on above: Order Comment: Urine , Random Performed By: #### L 300.3900, L100.0500 #### [facility] [address] [place], [address] RBC 10-25 SEEN Normal 0-5 [facility] Comment on above: Order Comment: Urine , Random Performed By: #### L 300.3900, L100.0500 #### [facility] [address] [place], [address] WBC >100 SEEN Normal 0-5 [facility] Comment on above: Order Comment: Urine , Random Performed By: #### L 300.3900, L100.0500 #### [facility] [address] [place], [address] Urine blood detectionOrdered By: Marcel Moya on 03-02-2024 Urine Occult Blood 250 /ul High Negative [facility] Urine clarityOrdered By: Marcel Moya on 03-02-2024 Clarity (U) Cloudy Clear [facility] Urine color determinationOrd ered By: Marcel Moya on 03-02-2024 Color (U) Yellow Yellow [facility] Urine cultureOrdered By: Marcel Moya on 03-02-2024 Bacteria identified Cx Nom (U) Mixed Gram Pos & Gram Neg Org Abnormal [facility] Bacteria identified Cx Nom (U) Mixed Gram Pos & Gram Neg Org Abnormal [facility] Urine leukocyte esterase det ection by dipstickOrdered By: Marcel Moya on 03-02-2024 Leukocyte esterase Test strip Ql (U) 500 /ul High Negative [facility] Urine pHOrdered By: Marcel Moya on 03-02-2024 pH (U) 5.0 [pH] 5.0 - 8.0 [facility] Urine sediment bacteria coun t by microscopy (number/high power field)Ordered By: Marcel Moya on 03-02-2024 Bacteria LM.HPF (Urine sed) [#/Area] 2 /[HPF] None Seen [facility] Urine specific gravity measu rementOrdered By: Marcel Moya on 03-02-2024 Specific gravity (U) [Rel density] 1.025 1.002-1.03 0 [facility] Urobilinogen Ql (U)Ordered B y: Marcel Moya on 03-02-2024 Urine Urobilinogen Normal mg/dl Normal [facility] White blood cell countOrdere d By: Marcel Moya on 03-02-2024 Urine WBC >100 SEEN /hpf 0-5 [facility] 20-LS-Sliezhq DOrdered By: Deny Moya on 02-21-2024 Vitamin D 25-Hydroxy 31.2 ng/mL [facility] Comment on above: Vitamin D 25(OH) Sta tus Range Deficiency <20 ng/mL (50nmol/L) Insufficiency 20 - 30 ng/mL (50 - 75 nmol/L) Sufficiency 30 - 100 ng/mL (75 - 250 nmol/L) Toxicity >100 ng/mL (>250 nmol/L) Absolute neutrophil countOrd ered By: Marcel Moya on 02-21-2024 Neutrophils (Bld) [#/Vol] 5.0 10*3/uL 2.0-7.7 [facility] Albumin to globulin ratioOrd ered By: Marcel Moya on 02-21-2024 Albumin/Globulin [Mass ratio] 1.0 {ratio} 0.9-2.4 [facility] Basophil percentageOrdered B y: Marcel Moya on 02-21-2024 Basophils/100 WBC (Bld) 0.8 % 0-1 [facility] Bilirubin, totalOrdered By: Marcel Moya on 02-21-2024 Bilirubin [Mass/Vol] 0.60 mg/dL 0.20-1.00 [facility] Comment on above: For patients on eltr ombopag therapy, use of Dimension [place] TBIL is not recommended. Blood urea nitrogen (BUN)/cr eatinine ratioOrdered By: Marcel Moya on 02-21-2024 Urea nitrogen/Creatinine [Mass ratio] 19.5 mg/mg 10-20 [facility] CBC W/Diff, Automatedon Absolute Lymph 1.90 X10 3/uL Normal 0.83-4.51 [facility] Comment on above: Performed By: #### L 500.4100, L500.4050, L100.0100, L506.1000, L501.9520 #### [facility] [address] [place], [address] Absolute Neut 5.0 X10 3/uL Normal 2.0-7.7 [facility] Comment on above: Performed By: #### L 500.4100, L500.4050, L100.0100, L506.1000, L501.9520 #### [facility] [address] [place], [address] Basophils/100 WBC (Bld) 0.8 % Normal 0-1 [facility] Comment on above: Performed By: #### L 500.4100, L500.4050, L100.0100, L506.1000, L501.9520 #### [facility] [address] [place], [address] Eosinophils/100 WBC (Bld) 4.4 % Normal 0-5 [facility] Comment on above: Performed By: #### L 500.4100, L500.4050, L100.0100, L506.1000, L501.9520 #### [facility] [address] [place], [address] Erythrocyte distribution width (RBC) [Ratio] 14.4 % Normal 11.6-14.6 [facility] Comment on above: Performed By: #### L 500.4100, L500.4050, L100.0100, L506.1000, L501.9520 #### [facility] [address] [place], [address] Hematocrit (Bld) [Volume fraction] 41.1 % Normal 37-47 [facility] Comment on above: Performed By: #### L 500.4100, L500.4050, L100.0100, L506.1000, L501.9520 #### [facility] [address] [place], [address] Hemoglobin (Bld) [Mass/Vol] 13.9 g/dL Normal 12.0-15.0 [facility] Comment on above: Performed By: #### L 500.4100, L500.4050, L100.0100, L506.1000, L501.9520 #### [facility] [address] [place], [address] IG% 0.100 Normal 0.0-0.9 [facility] Comment on above: Result Comment: IG% - Immature Granulocytes (promyelocytes, myelocytes and metamyelocytes) > 1% indicates that a LEFT SHIFT is Present. Performed By: #### L 500.4100, L500.4050, L100.0100, L506.1000, L501.9520 #### [facility] [address] [place], [address] Lymphocytes/100 WBC (Bld) 23.9 % Normal 19-41 [facility] Comment on above: Performed By: #### L 500.4100, L500.4050, L100.0100, L506.1000, L501.9520 #### [facility] [address] [place], [address] MCH (RBC) [Entitic mass] 28.9 pg Normal 27.0-32.0 [facility] Comment on above: Performed By: #### L 500.4100, L500.4050, L100.0100, L506.1000, L501.9520 #### [facility] [address] [place], [address] MCHC (RBC) [Mass/Vol] 33.8 g/dL Normal 32-[address] [facility] Comment on above: Performed By: #### L 500.4100, L500.4050, L100.0100, L506.1000, L501.9520 #### [facility] [address] [place], [address] MCV (RBC) [Entitic vol] 85.4 fL Normal 81-99 [facility] Comment on above: Performed By: #### L 500.4100, L500.4050, L100.0100, L506.1000, L501.9520 #### [facility] [address] [place], [address] Monocytes/100 WBC (Bld) 7.5 % Normal 0-10 [facility] Comment on above: Performed By: #### L 500.4100, L500.4050, L100.0100, L506.1000, L501.9520 #### [facility] [address] [place], [address] Neutrophils/100 WBC (Bld) 63.3 % Normal 47-70 [facility] Comment on above: Performed By: #### L 500.4100, L500.4050, L100.0100, L506.1000, L501.9520 #### [facility] [address] [place], [address] Nucleated RBC (Bld) [#/Vol] 0 10*3/uL Normal 0-5 [facility] Comment on above: Performed By: #### L 500.4100, L500.4050, L100.0100, L506.1000, L501.9520 #### [facility] [address] [place], [address] Platelet mean volume (Bld) [Entitic vol] 10.1 fL Normal 6.2-12.0 [facility] Comment on above: Performed By: #### L 500.4100, L500.4050, L100.0100, L506.1000, L501.9520 #### [facility] [address] [place], [address] Platelets (Bld) [#/Vol] 318 10*3/uL Normal 150-450 [facility] Comment on above: Performed By: #### L 500.4100, L500.4050, L100.0100, L506.1000, L501.9520 #### [facility] [address] [place], [address] RBC (Bld) [#/Vol] 4.81 10*6/uL Normal 4.2-5.4 [facility] Comment on above: Performed By: #### L 500.4100, L500.4050, L100.0100, L506.1000, L501.9520 #### [facility] [address] [place], [address] RDW SD 45.1 fl High 35.1-43.9 [facility] Comment on above: Performed By: #### L 500.4100, L500.4050, L100.0100, L506.1000, L501.9520 #### [facility] [address] [place], [address] WBC (Bld) [#/Vol] 8.0 10*3/uL Normal 4.4-11.0 [facility] Comment on above: Performed By: #### L 500.4100, L500.4050, L100.0100, L506.1000, L501.9520 #### [facility] [address] [place], [address] Carbon dioxide measurementOr dered By: Marcel Moya on 02-21-2024 CO2 [Moles/Vol] 30.0 mmol/L 21.0-32.0 [facility] Chloride measurementOrdered By: Marcel Moya on 02-21-2024 Chloride [Moles/Vol] 105 mmol/L 98-107 [facility] Comprehensive Metabolic Prof ilon 02-21-2024 Albumin [Mass/Vol] 4.0 g/dL Normal 3.2-5.0 [facility] Comment on above: Performed By: #### L 500.4100, L500.4050, L100.0100, L506.1000, L501.9520 ####[facility] [address] [place], [address] Albumin/Globulin [Mass ratio] 1.0 {ratio} Normal 0.9-2.4 [facility] Comment on above: Performed By: #### L 500.4100, L500.4050, L100.0100, L506.1000, L501.9520 ####[facility] [address] [place], [address] ALK P 150 U/L High 45-117 [facility] Comment on above: Performed By: #### L 500.4100, L500.4050, L100.0100, L506.1000, L501.9520 ####[facility] [address] [place], [address] ALT [Catalytic activity/Vol] 30 U/L Normal 13-56 [facility] Comment on above: Performed By: #### L 500.4100, L500.4050, L100.0100, L506.1000, L501.9520 ####[facility] [address] [place], [address] AST [Catalytic activity/Vol] 25 U/L Normal 15-37 [facility] Comment on above: Performed By: #### L 500.4100, L500.4050, L100.0100, L506.1000, L501.9520 ####[facility] [address] [place], [address] Bilirubin [Mass/Vol] 0.60 mg/dL Normal 0.20-1.00 [facility] Comment on above: Result Comment: For patients on eltrombopag therapy, use of Dimension [place] TBIL is not recommended. Performed By: #### L 500.4100, L500.4050, L100.0100, L506.1000, L501.9520 ####[facility] [address] [place], [address] BUN/CRE 19.5 RATIO Normal 10-20 [facility] Comment on above: Performed By: #### L 500.4100, L500.4050, L100.0100, L506.1000, L501.9520 ####[facility] [address] [place], [address] CA,Total 9.7 mg/dL Normal 8.5-10.1 [facility] Comment on above: Performed By: #### L 500.4100, L500.4050, L100.0100, L506.1000, L501.9520 ####[facility] [address] [place], [address] Chloride [Moles/Vol] 105 mmol/L Normal 98-107 [facility] Comment on above: Performed By: #### L 500.4100, L500.4050, L100.0100, L506.1000, L501.9520 ####[facility] [address] [place], [address] CO2 [Moles/Vol] 30.0 mmol/L Normal 21.0-32.0 [facility] Comment on above: Performed By: #### L 500.4100, L500.4050, L100.0100, L506.1000, L501.9520 ####[facility] [address] [place], [address] Creatinine [Mass/Vol] 0.87 mg/dL Normal 0.55-1.[address] [facility] Comment on above: Result Comment: The validity of the calculated GFR GFRAA in patients over 70 years has not been determined. Clinical correlation is essential. Performed By: #### L 500.4100, L500.4050, L100.0100, L506.1000, L501.9520 ####[facility] [address] [place], [address] EST GFR - AA 86 mL/min Normal >60 [facility] Comment on above: Result Comment: Afri can German GFR Calc Performed By: #### L 500.4100, L500.4050, L100.0100, L506.1000, L501.9520 ####[facility] [address] [place], [address] GAP 5 Normal 5-15 [facility] Comment on above: Performed By: #### L 500.4100, L500.4050, L100.0100, L506.1000, L501.9520 ####[facility] [address] [place], [address] GFR/1.73 sq M.predicted among non-blacks MDRD (S/P/Bld) [Vol rate/Area] 71 mL/min/{1.73_m2} Normal >60 [facility] Comment on above: Result Comment: Non- GFR Calc Performed By: #### L 500.4100, L500.4050, L100.0100, L506.1000, L501.9520 ####[facility] [address] [place], [address] Globulin (S) [Mass/Vol] 3.9 g/dL Normal 2.2-4.2 [facility] Comment on above: Performed By: #### L 500.4100, L500.4050, L100.0100, L506.1000, L501.9520 ####[facility] [address] [place], [address] Glucose [Mass/Vol] 94 mg/dL Normal 74-106 [facility] Comment on above: Performed By: #### L 500.4100, L500.4050, L100.0100, L506.1000, L501.9520 ####[facility] [address] [place], [address] Potassium [Moles/Vol] 4.0 mmol/L Normal 3.5-5.[address] [facility] Comment on above: Performed By: #### L 500.4100, L500.4050, L100.0100, L506.1000, L501.9520 ####[facility] [address] [place], [address] Sodium [Moles/Vol] 140 mmol/L Normal 136-145 [facility] Comment on above: Performed By: #### L 500.4100, L500.4050, L100.0100, L506.1000, L501.9520 ####[facility] [address] [place], [address] T PROT 7.9 g/dL Normal 6.4-8.2 [facility] Comment on above: Performed By: #### L 500.4100, L500.4050, L100.0100, L506.1000, L501.9520 ####[facility] [address] [place], [address] Urea nitrogen [Mass/Vol] 17 mg/dL Normal 7-18 [facility] Comment on above: Performed By: #### L 500.4100, L500.4050, L100.0100, L506.1000, L501.9520 ####[facility] [address] [place], [address] Eosinophil percentageOrdered By: Marcel Moya on 02-21-2024 Eosinophils/100 WBC (Bld) 4.4 % 0-5 [facility] Erythrocyte distribution wid th ratioOrdered By: Marcel Moya on 02-21-2024 Erythrocyte distribution width (RBC) [Ratio] 14.4 % 11.6-14.6 [facility] Erythrocyte distribution wid th standard deviationOrdered By: Marcel Moya on 02-21-2024 Erythrocyte distribution width (RBC) [Entitic vol] 45.1 fL High 35.1-43.9 [facility] Estimated glomerular filtrat ion rate (GFR) AmericanOrdered By: Marcel Moya on 02-21-2024 Estimated GFR (MDRD) Amer 86 mL/min >60 [facility] Comment on above: GFR Calc Glomerular filtration rate ( GFR) estimationOrdered By: Marcel Moya on 02-21-2024 Estimated GFR (MDRD) Non-Af Amer 71 mL/min >60 [facility] Comment on above: Non- GFR Calc Glucose measurementOrdered B y: Marcel Moya on 02-21-2024 Glucose [Mass/Vol] 94 mg/dL 74-106 [facility] Hematocrit Auto (Bld) [Volum e fraction]Ordered By: Marcel Moya on 02-21-2024 Hematocrit (Bld) [Volume fraction] 41.1 % 37-47 [facility] Hemoglobin measurementOrdere d By: Marcel Moya on 02-21-2024 Hemoglobin (Bld) [Mass/Vol] 13.9 g/dL 12.0-15.0 [facility] High density lipoprotein (HD L) measurementOrdered By: Marcel Moya on 02-21-2024 Cholesterol in HDL [Mass/Vol] 48 mg/dL >40 [facility] Comment on above: The drugs N-Acetylcy steine and Metamizole may falsely depress this assay. Reference Range HDL <40 mg/dL Low HDL Cholesterol HDL >or= 60 mg/dL High HDL Cholesterol Immature granulocytes/100 WB C Auto (Bld)Ordered By: Marcel Moya on 02-21-2024 Immature granulocytes/100 WBC (Bld) 0.100 % 0.0-0.9 [facility] Comment on above: IG% - Immature Granu locytes (promyelocytes, myelocytes and metamyelocytes) > 1% indicates that a LEFT SHIFT is Present. Laboratory - Chemistry and C hemistry - challengeOrdered By: Marcel Moya on 02-21-2024 AST [Catalytic activity/Vol] 25 U/L 15-37 [facility] Lipid Profileon 02-21-2024 Cholesterol [Mass/Vol] 195 mg/dL Normal 200 [facility] Comment on above: Result Comment: <200 mg/dL Desirable 200-240 mg/dL Borderline >240 mg/dL High Risk Performed By: #### L 500.4100, L500.4050, L100.0100, L506.1000, L501.9520 ####[facility] [address] [place], [address] Cholesterol in HDL [Mass/Vol] 48 mg/dL Normal [facility] Comment on above: Result Comment: The drugs N-Acetylcysteine and Metamizole may falsely depress this assay. Reference Range HDL <40 mg/dL Low HDL Cholesterol HDL >or= 60 mg/dL High HDL Cholesterol Performed By: #### L 500.4100, L500.4050, L100.0100, L506.1000, L501.9520 ####[facility] [address] [place], [address] Cholesterol in LDL [Mass/Vol] 100 mg/dL Normal 0-130 [facility] Comment on above: Performed By: #### L 500.4100, L500.4050, L100.0100, L506.1000, L501.9520 ####[facility] [address] [place], [address] Cholesterol in VLDL [Mass/Vol] 47 mg/dL High 5-40 [facility] Comment on above: Performed By: #### L 500.4100, L500.4050, L100.0100, L506.1000, L501.9520 ####[facility] [address] [place], [address] Triglyceride [Mass/Vol] 235 mg/dL High [facility] Comment on above: Result Comment: The drugs N-Acetylcysteine and Metamizole may falsely depress this assay. Serum Triglycerides Reference Interval Normal <150 mg/dL Borderline high 150 - 199 mg/dL High 200 - 499 mg/dL Very High > or = 500 mg/dL Performed By: #### L 500.4100, L500.4050, L100.0100, L506.1000, L501.9520 ####[facility] [address] [place], [address] Low density lipoprotein (LDL ) cholesterol measurementOrdered By: Marcel Moya on 02-21-2024 Cholesterol in LDL [Mass/Vol] 100 mg/dL 0-130 [facility] Lymphocytes Auto (Unsp spec) [#/Vol]Ordered By: Marcel Moya on 02-21-2024 Lymphocytes (Bld) [#/Vol] 1.90 10*3/uL 0.83-4.51 [facility] Lymphocytes/100 WBC Auto (Un sp spec)Ordered By: Marcel Moya on 02-21-2024 Lymphocytes/100 WBC (Bld) 23.9 % 19-41 [facility] MCV (mean corpuscular volume ) determinationOrdered By: Marcel Moya on 02-21-2024 MCV (RBC) [Entitic vol] 85.4 fL 81-99 [facility] Mean corpuscular hemoglobin (MCH) determinationOrdered By: Marcel Moya on 02-21-2024 MCH (RBC) [Entitic mass] 28.9 pg 27.0-32.0 [facility] Mean corpuscular hemoglobin concentration (MCHC) determinationOrdered By: Marcel Moya on 02-21-2024 MCHC (RBC) [Mass/Vol] 33.8 g/dL 32-[address] [facility] Mean platelet volume determi nationOrdered By: Marcel Moya on 02-21-2024 Platelet mean volume (Bld) [Entitic vol] 10.1 fL 6.2-12.0 [facility] Monocyte percentageOrdered B y: Marcel Moya on 02-21-2024 Monocytes/100 WBC (Bld) 7.5 % 0-10 [facility] Neutrophil percentageOrdered By: Marcel Moya on 02-21-2024 Neutrophils/100 WBC (Bld) 63.3 % 47-70 [facility] Nucleated red blood cell per centageOrdered By: Marcel Moya on 02-21-2024 Nucleated RBC/100 WBC (Bld) [Ratio] 0 % 0-5 [facility] Platelet countOrdered By: Jose Moya on 02-21-2024 Platelets (Bld) [#/Vol] 318 10*3/uL 150-450 [facility] Potassium measurementOrdered By: Marcel Moya on 02-21-2024 Potassium [Moles/Vol] 4.0 mmol/L 3.5-5.[address] [facility] RBC Auto (Bld) [#/Vol]Ordere d By: Marcel Moya on 02-21-2024 RBC (Bld) [#/Vol] 4.81 10*6/uL 4.2-5.4 [facility] Serum anion gap measurementO rdered By: Marcel Moya 02-21-2024 Anion gap [Moles/Vol] 5 mmol/L 5-[address] [facility] Serum globulin measurementOr dered By: Marcel Moya on 02-21-2024 Globulin (S) [Mass/Vol] 3.9 g/dL 2.2-4.2 [facility] Serum or plasma alanine foster otransferase (ALT) measurementOrdered By: Marcel Moya 02-21-2024 ALT [Catalytic activity/Vol] 30 U/L 13-56 [facility] Serum or plasma albumin tika urement (mass/volume)Ordered By: Marcel Moya 02-21-2024 Albumin [Mass/Vol] 4.0 g/dL 3.2-5.0 [facility] Serum or plasma alkaline orberto sphatase measurementOrdered By: Marcel Moya 02-21-2024 ALP [Catalytic activity/Vol] 150 U/L High 45-117 [facility] Serum or plasma calcium tika urement (mass/volume)Ordered By: Marcel Moya 02-21-2024 Calcium [Mass/Vol] 9.7 mg/dL 8.5-10.1 [facility] Serum or plasma cholesterol measurement (mass/volume)Ordered By: Marcel Moya 02-21-2024 Cholesterol [Mass/Vol] 195 mg/dL <200 [facility] Comment on above: <200 mg/dL Desirable 200-240 mg/dL Borderline >240 mg/dL High Risk Serum or plasma creatinine m easurement (mass/volume)Ordered By: Marcel Moya 02-21-2024 Creatinine [Mass/Vol] 0.87 mg/dL 0.55-1.[address] [facility] Comment on above: The validity of the calculated GFR & GFRAA in patients over 70 years has not been determined. Clinical correlation is essential. Serum or plasma urea nitroge n measurement (mass/volume)Ordered By: Marcel Moya on 02-21-2024 Urea nitrogen [Mass/Vol] 17 mg/dL 7-18 [facility] Sodium levelOrdered By: Marcel Moya on 02-21-2024 Sodium [Moles/Vol] 140 mmol/L 136-145 [facility] TSH QnOrdered By: Marcel Moya o n 02-21-2024 Thyroid Stimulating Hormone (TSH) 2.500 uIU/mL 0.358-3.74 0 [facility] Thyroid Stim Hormone (TSH)on 02-21-2024 TSH 2.500 uIU/mL Normal 0.358-3.74 0 [facility] Comment on above: Performed By: #### L 500.4100, L500.4050, L100.0100, L506.1000, L501.9520 ####[facility] [address] [place], [address] Total proteinOrdered By: Marcel Moya on 02-21-2024 Protein [Mass/Vol] 7.9 g/dL 6.4-8.2 [facility] Triglycerides measurementOrd ered By: Marcel Moya on 02-21-2024 Triglyceride [Mass/Vol] 235 mg/dL High <199 [facility] Comment on above: The drugs N-Acetylcy steine and Metamizole may falsely depress this assay.Serum Triglycerides Reference Interval Normal <150 mg/dL Borderline high 150 - 199 mg/dL High 200 - 499 mg/dL Very High > or = 500 mg/dL Very low density lipoprotein (VLDL) cholesterol measurementOrdered By: Marcel Moya on 02-21-2024 VLDL Cholesterol 47 mg/dL High 5-40 [facility] Vitamin D,25 Hydroxyon 02-20 Vitamin D 25-OH 31.2 ng/mL Normal [facility] Comment on above: Result Comment: Mona min D 25(OH) Status Range Deficiency <20 ng/mL (50nmol/L) Insufficiency 20 - 30 ng/mL (50 - 75 nmol/L) Sufficiency 30 - 100 ng/mL (75 - 250 nmol/L) Toxicity >100 ng/mL (>250 nmol/L) Performed By: #### L 500.4100, L500.4050, L100.0100, L506.1000, L501.9520 #### [facility] [address] [place], [place], [phone] White blood cell (WBC) count Ordered By: Marcel Moya on 02-21-2024 WBC (Bld) [#/Vol] 8.0 10*3/uL 4.4-11.0 [facility] Urine Cultureon 02-01-2024 [facility] Presumptive E. coli [place] Count 11,000-25,000 Presumptive E. coli: REACTION Ampicillin Islt CORI 4 Ampicillin+Sulbac Islt CORI <=2 S Cefepime Islt CORI <=0.12 S cefTRIAXone Islt CORI <=0.25 S Ciprofloxacin Islt CORI <=0.06 S B-Lactamase Extended Susc Islt NEG Gentamicin Islt CORI <=1 S levoFLOXacin Islt CORI <=0.12 S Meropenem Islt CORI <=0.25 S Nitrofurantoin Islt CORI <=16 S Pip+Tazo Islt CORI <=4 S TMP SMX Islt CORI <=20 S Normal [facility] Comment on above: Performed By: #### M 100.2200 ####[facility] [address] [facility] [place], [place], [phone] Absolute neutrophil counton 01-31-2024 Neutrophils (Bld) [#/Vol] 5.0 10*3/uL 2.0-7.7 [facility] Basophil percentageon 2023 Basophils/100 WBC (Bld) 0.6 % 0-1 [facility] CBC W/Diff, Automatedon 01-14 Absolute Lymph 2.25 X10 3/uL Normal 0.83-4.51 [facility] Comment on above: Order Comment: PLEAS E FAX LABS TO [id number] Performed By: #### L 100.0100, L300.3900 ####[facility] [address] [place], [place], [phone](008) Absolute Neut 5.0 X10 3/uL Normal 2.0-7.7 [facility] Comment on above: Order Comment: PLEAS E FAX LABS TO [id number] Performed By: #### L 100.0100, L300.3900 ####[facility] [address] [place], [address] Basophils/100 WBC (Bld) 0.6 % Normal 0-1 [facility] Comment on above: Order Comment: PLEAS E FAX LABS TO [id number] Performed By: #### L 100.0100, L300.3900 ####[facility] [address] [place], [address] Eosinophils/100 WBC (Bld) 6.7 % High 0-5 [facility] Comment on above: Order Comment: PLEAS E FAX LABS TO [id number] Performed By: #### L 100.0100, L300.3900 ####[facility] [address] [place], [address] Erythrocyte distribution width (RBC) [Ratio] 14.3 % Normal 11.6-14.6 [facility] Comment on above: Order Comment: PLEAS E FAX LABS TO [id number] Performed By: #### L 100.0100, L300.3900 ####[facility] [address] [place], [address] Hematocrit (Bld) [Volume fraction] 39.4 % Normal 37-47 [facility] Comment on above: Order Comment: PLEAS E FAX LABS TO [id number] Performed By: #### L 100.0100, L300.3900 ####[facility] [address] [place], [address] Hemoglobin (Bld) [Mass/Vol] 13.5 g/dL Normal 12.0-15.0 [facility] Comment on above: Order Comment: PLEAS E FAX LABS TO [id number] Performed By: #### L 100.0100, L300.3900 ####[facility] [address] [place], [address] IG% 0.300 Normal 0.0-0.9 [facility] Comment on above: Order Comment: PLEAS E FAX LABS TO [id number] Result Comment: IG% - Immature Granulocytes (promyelocytes, myelocytes and metamyelocytes) > 1% indicates that a LEFT SHIFT is Present. Performed By: #### L 100.0100, L300.3900 ####[facility] [address] [place], [address] Lymphocytes/100 WBC (Bld) 25.7 % Normal 19-41 [facility] Comment on above: Order Comment: PLEAS E FAX LABS TO [id number] Performed By: #### L 100.0100, L300.3900 ####[facility] [address] [place], [address] MCH (RBC) [Entitic mass] 28.8 pg Normal 27.0-32.0 [facility] Comment on above: Order Comment: PLEAS E FAX LABS TO [id number] Performed By: #### L 100.0100, L300.3900 ####[facility] [address] [place], [address] MCHC (RBC) [Mass/Vol] 34.3 g/dL Normal 32-[address] [facility] Comment on above: Order Comment: PLEAS E FAX LABS TO [id number] Performed By: #### L 100.0100, L300.3900 ####[facility] [address] [place], [address] MCV (RBC) [Entitic vol] 84.2 fL Normal 81-99 [facility] Comment on above: Order Comment: PLEAS E FAX LABS TO [id number] Performed By: #### L 100.0100, L300.3900 ####[facility] [address] [place], [address] Monocytes/100 WBC (Bld) 9.5 % Normal 0-10 [facility] Comment on above: Order Comment: PLEAS E FAX LABS TO [id number] Performed By: #### L 100.0100, L300.3900 ####[facility] [address] [place], [address] Neutrophils/100 WBC (Bld) 57.2 % Normal 47-70 [facility] Comment on above: Order Comment: PLEAS E FAX LABS TO [id number] Performed By: #### L 100.0100, L300.3900 ####[facility] [address] [place], [address] Nucleated RBC (Bld) [#/Vol] 0 10*3/uL Normal 0-5 [facility] Comment on above: Order Comment: PLEAS E FAX LABS TO [id number] Performed By: #### L 100.0100, L300.3900 ####[facility] [address] [place], [address] Platelet mean volume (Bld) [Entitic vol] 9.5 fL Normal 6.2-12.0 [facility] Comment on above: Order Comment: PLEAS E FAX LABS TO [id number] Performed By: #### L 100.0100, L300.3900 ####[facility] [address] [place], [address] Platelets (Bld) [#/Vol] 296 10*3/uL Normal 150-450 [facility] Comment on above: Order Comment: PLEAS E FAX LABS TO [id number] Performed By: #### L 100.0100, L300.3900 ####[facility] [address] [place], [address] RBC (Bld) [#/Vol] 4.68 10*6/uL Normal 4.2-5.4 [facility] Comment on above: Order Comment: PLEAS E FAX LABS TO [id number] Performed By: #### L 100.0100, L300.3900 ####[facility] [address] [place], [address] RDW SD 43.8 fl Normal 35.1-43.9 [facility] Comment on above: Order Comment: PLEAS E FAX LABS TO [id number] Performed By: #### L 100.0100, L300.3900 ####[facility] [address] [place], [address] WBC (Bld) [#/Vol] 8.8 10*3/uL Normal 4.4-11.0 [facility] Comment on above: Order Comment: PLEAS E FAX LABS TO [id number] Performed By: #### L 100.0100, L300.3900 ####[facility] [address] [place], [address] Eosinophil percentageon 01-14 Eosinophils/100 WBC (Bld) 6.7 % High 0-5 [facility] Erythrocyte distribution wid th ratioon 01-31-2024 Erythrocyte distribution width (RBC) [Ratio] 14.3 % 11.6-14.6 [facility] Erythrocyte distribution wid th standard deviationon 01-31-2024 Erythrocyte distribution width (RBC) [Entitic vol] 43.8 fL 35.1-43.9 [facility] Hematocrit Auto (Bld) [Volum e fraction]on 01-31-2024 Hematocrit (Bld) [Volume fraction] 39.4 % 37-47 [facility] Hemoglobin measurementon Hemoglobin (Bld) [Mass/Vol] 13.5 g/dL 12.0-15.0 [facility] Immature granulocytes/100 WB C Auto (Bld)on 01-31-2024 Immature granulocytes/100 WBC (Bld) 0.300 % 0.0-0.9 [facility] Comment on above: IG% - Immature Granu locytes (promyelocytes, myelocytes and metamyelocytes) > 1% indicates that a LEFT SHIFT is Present. International normalized rat io (INR) calculationon 01-31-2024 INR Coag (Bld) [Relative time] 3.2 {INR} [facility] Lymphocytes Auto (Unsp spec) [#/Vol]on 01-31-2024 Lymphocytes (Bld) [#/Vol] 2.25 10*3/uL 0.83-4.51 [facility] Lymphocytes/100 WBC Auto (Un sp spec)on 01-31-2024 Lymphocytes/100 WBC (Bld) 25.7 % 19-41 [facility] MCV (mean corpuscular volume ) determinationon 01-31-2024 MCV (RBC) [Entitic vol] 84.2 fL 81-99 [facility] Mean corpuscular hemoglobin (MCH) determinationon 01-31-2024 MCH (RBC) [Entitic mass] 28.8 pg 27.0-32.0 [facility] Mean corpuscular hemoglobin concentration (MCHC) determinationon 01-31-2024 MCHC (RBC) [Mass/Vol] 34.3 g/dL 32-[address] [facility] Mean platelet volume determi nationon 01-31-2024 Platelet mean volume (Bld) [Entitic vol] 9.5 fL 6.2-12.0 [facility] Monocyte percentageon 2023 Monocytes/100 WBC (Bld) 9.5 % 0-10 [facility] Neutrophil percentageon 01-14 Neutrophils/100 WBC (Bld) 57.2 % 47-70 [facility] Nucleated red blood cell per centageon 01-31-2024 Nucleated RBC/100 WBC (Bld) [Ratio] 0 % 0-5 [facility] Platelet counton 01-31-2024 Platelets (Bld) [#/Vol] 296 10*3/uL 150-450 [facility] Prothrombin Time w/INRon INR Coag (PPP) [Relative time] 3.2 {INR} Normal [facility] Comment on above: Order Comment: GRUPO Murillo FAX LABS TO [id number] Performed By: #### L 100.0100, L300.3900 ####[facility] [address] [place], [place], [address] PT Coag (PPP) [Time] 32.7 s High 11.7-14.9 [facility] Comment on above: Order Comment: GRUPO Murillo FAX LABS TO [id number] Performed By: #### L 100.0100, L300.3900 ####[facility] [address] [place], [place], [address] Prothrombin timeon PT Coag (PPP) [Time] 32.7 s High 11.7-14.9 [facility] RBC Auto (Bld) [#/Vol]on RBC (Bld) [#/Vol] 4.68 10*6/uL 4.2-5.4 [facility] White blood cell (WBC) count on 01-31-2024 WBC (Bld) [#/Vol] 8.8 10*3/uL 4.4-11.0 [facility] Urine cultureOrdered By: Santy Champion on 01-30-2024 Bacteria identified Cx Nom (U) Presumptive E. coli Abnormal [facility] Bacteria identified Cx Nom (U) Presumptive E. coli Abnormal [facility] Laboratory - Chemistry and C hemistry - challengeon 01-28-2024 Bilirubin Ql (U) Negative [facility] Glucose Ql (U) Negative [facility] Ketones Ql (U) Trace (5) [facility] pH (U) 5.0 [pH] [facility] Specific gravity (U) [Rel density] 1.025 [facility] Urobilinogen (U) [Mass/Vol] 1 mg/dL [facility] - Hematology and Cell countson 01-28-2024 Hemoglobin Ql (U) Hemolyzed [facility] - Specimen inform ationon 01-28-2024 Clarity (U) Cloudy [facility] Color (U) DARK YELLOW [facility] - Urinalysison Nitrite Ql (U) Negative [facility] Protein Ql (U) Trace [facility] No Panel Informationon 01-27 Urine Leukocytes Positive [facility] Urine Non-Hemolyzed Blood Large [facility] Urgent Care Visit Reporton 1 03-30-2023 Urgent Care Visit Report [facility] [address], [address] [place] [address] OFFICE VISIT Date of Service: 01/28/24 MR#: [id number] Acct: [id number] Name: GARDENIA MUJICA Rep #: [id number] : 1965 Provider: MARCELA Champion Age/Sex: 58/F Location: [facility] Status: Signed Intake Vital Signs 11/30/23 17:18 01/28/24 08:07 01/28/24 08:22 Height 5 ft 4 in 5 ft 4 in 5 ft 4 in Weight: 183 lb 8 oz BMI 31.4 BP 128/80 H Position Sitting Pulse 67 Temp 98.2 F Temp Source Oral Pulse Oximetry (%) 98 Oxygen Delivery Method room air Intake Visit Reasons: Urinary tract infection Allergies No Known Allergies Allergy (Verified 01/28/24 08:23) Medications ???Medication ???Instructions ???Recorded ???Confirmed ???Type warfarin 3 mg tablet 3 mg PO DAILY [id number] 12/18/21 01/28/24 Rx tabs amlodipine 5 mg tablet 5 mg PO QDAY 01/28/24 01/28/24 History hydroxyzine HCl 25 mg tablet 25 mg PO QHS 01/28/24 01/28/24 History pantoprazole 40 mg tablet,delayed 40 mg PO BID 01/28/24 01/28/24 History release Nurse's Note: Patient has lower back pain and pressure in her groin. this has been going on for 3 days [facility] Medical History Thoracic aortic aneurysm Nonrheumatic aortic (valve) insufficiency Bicuspid aortic valve Hyperlipidemia GERD (gastroesophageal reflux disease) History of malignant neoplasm of cervix Abnormal Pap smear of cervix Hypertension Surgical History Status post aortic valve replacement ( 05/28/09) History of thoracic aortic aneurysm repair ( 05/28/09) History of aortic valve replacement with metallic valve ( 05/28/09) delivery delivered S/P gastroplasty Hx of cholecystectomy femur surgery Mechanical heart valve present Hx of abdominal hysterectomy Family History Grandmother Heart disease Mother Heart disease Social History Smoking Status: Never smoker alcohol intake: never substance use type: does not use caffeine: Yes what type of physical activity do you participate in: running and other details: crossfit frequency: 3-4 times per week seatbelt use: always do you feel safe at home: Yes additional social history: Claudia Ramirez Daily Patient works at [employer] Lab HPI HPI Details: GARDENIA MUJICA, is a 58 F who presents to the office today for uti sx -sx started about 2 days -sx lower back pain mainly on left side with pressure -urinary leakage -no fever or chills -denies pain, burning. -+ frequency and urgency -good urine stream -no blood in urine -denies abd and pelvic pain -tried so far drinking a lot of water -no menses -denies any n/v -in office UA negative nitrate, Large hemolyzed blood, PH 5.0 and specific gravity 1.025- denies any hx of kidney stones ROS Const Constitutional: Positive for other (ROS negative x6 except what was placed in HPI) Exam Const General: cooperative and no acute distress Orientation: alert and oriented x3 Resp Effort Inspection: normal respiratory effort, able to speak in complete sentences and symmetric chest movement Auscultation: Bilateral: Clear to Auscultation, Left: Clear to Auscultation and Right: Clear to Auscultation Cardio Rate: regular rate Rhythm: regular rhythm Heart Sounds: S1 normal and S2 normal GI Auscultation: normal bowel sounds Palpation: soft and no hepatosplenomegaly Other: -no abd or pelvic pain with palpation Other: + left side CVA tenderness Neuro General: patient alert, patient awake and patient oriented x3 Extrem General: normal to inspection and full ROM Psych Appearance: grossly normal Mental Status: mental status grossly normal Attitude: cooperative Thought Process: normal Thought Content: normal Judgment: judgment good Results POC Urinalysis Dip (Clinic) Office Urine Color DARK YELLOW Last Edit by Zoraida Ventura MA on 01/28/24 08:26 Office Urine Clarity Cloudy Last Edit by Zoraida Ventura MA on 01/28/24 08:26 Office Urine Glucose Negative Last Edit by Zoraida Ventura MA on 01/28/24 08:26 Office Urine Ketones Trace (5) Last Edit by Zoraida Ventura MA on 01/28/24 08:26 Off Ur Spec [place] 1.025 Last Edit by Zoraida Ventura MA on 01/28/24 08:26 Office Urine pH 5.0 Last Edit by Zoraida Ventura MA on 01/28/24 08:26 Office Urine Bilirubin Negative Last Edit by Zoraida Ventura MA on 01/28/24 08:26 Office Urine Urobilinogen 1 mg/dL Last Edit by Zoraida Ventura MA on 01/28/24 08:26 Office Urine Blood Hemolyzed Last Edit by Zoraida Ventura MA on 01/28/24 08:26 Office Urine Blood Hemolyzed Large Last Edit by Zoraida Ventura MA on (more content not included)... Normal [facility] Prothrombin Time w/INRon INR Coag (PPP) [Relative time] 2.6 {INR} Normal [facility] Comment on above: Performed By: #### L 300.3900 ####[facility] [address] [place], [place], [phone] PT Coag (PPP) [Time] 27.7 s High 11.7-14.9 [facility] Comment on above: Performed By: #### L 300.3900 ####[facility] [address] [place], [place], [address] CNPNon 01-16-2024 CNPN Telephone ([id number]) GARDENIA MUJICA ([id number]) 1965 F T Date Time Provider Department 01/16/24 JAYASHREE HERNANDEZ4 During your visit today, we recorded the following information about you: Mikey Carrion RN 01/16/2024 11:53 AM Signed MDT: Patient sent in a MCM that she is stepping out due to ?surgery is not what I want? MDT recommendations: Inform pt to reach out if she decides to have the surgery in the future : Update: Dr. Hernandez to call pt to clarify answers to her questions, see what she wants moving forward Will add update after Dr. Hernandez speaks with pt. Mikey Carrion, RN, BSN Bariatric Graduate Fellow Allergies As of Date: 01/16/2024 Noted Allergy Reaction ATORVASTATIN 04/18/2023 14 - [...] Date Reviewed: 10/28/2023 Reviewed by: Frederick Colvin APRN.PULMONARY FELLOW - Fully Assessed Reason for Visit: MDT [Other] Prescriptions as of 01/16/2024 - pantoprazole DR (PROTONIX) 40 mg tablet [...] for pain. Problem List As Of Date 01/16/2024 Noted Resolved Thoracic aneurysm without mention of [...] valve replacement [Z95.2] 05/13/2023 Encounter Status:Closed by MIKEY CARRION on 01/16/24 Normal [facility] normalized rat io (INR) calculationon 01-09-2024 INR Coag (Bld) [Relative time] 2.2 {INR} [facility] Prothrombin Time w/INRon INR Coag (PPP) [Relative time] 2.2 {INR} Normal [facility] Comment on above: Order Comment: [place] [id number] Performed By: #### L 300.5023, L100.5913 #### [facility] [address] [place], [place], [id number] PT Coag (PPP) [Time] 24.6 s High 11.7-14.9 [facility] Comment on above: Order Comment: PLEAS E FAX [id number] Performed By: #### L 300.3900, L100.0500 #### [facility] [address] [place], [address] Prothrombin timeon PT Coag (PPP) [Time] 24.6 s High 11.7-14.9 [facility] CBC-Complete Blood Cnt No Di ffon 12-26-2023 Erythrocyte distribution width (RBC) [Ratio] 14.4 % Normal 11.6-14.6 [facility] Comment on above: Performed By: #### L 300.3900, L100.0500 #### [facility] [address] [place], [address] Hematocrit (Bld) [Volume fraction] 37.0 % Normal 37-47 [facility] Comment on above: Performed By: #### L 300.3900, L100.0500 #### [facility] [address] [place], [address] Hemoglobin (Bld) [Mass/Vol] 12.6 g/dL Normal 12.0-15.0 [facility] Comment on above: Performed By: #### L 300.3900, L100.0500 #### [facility] [address] [place], [address] MCH (RBC) [Entitic mass] 28.9 pg Normal 27.0-32.0 [facility] Comment on above: Performed By: #### L 300.3900, L100.0500 #### [facility] [address] [place], [address] MCHC (RBC) [Mass/Vol] 34.1 g/dL Normal 32-[address] [facility] Comment on above: Performed By: #### L 300.3900, L100.0500 #### [facility] [address] [place], [address] MCV (RBC) [Entitic vol] 84.9 fL Normal 81-99 [facility] Comment on above: Performed By: #### L 300.3900, L100.0500 #### [facility] [address] [place], [address] Platelet mean volume (Bld) [Entitic vol] 9.9 fL Normal 6.2-12.0 [facility] Comment on above: Performed By: #### L 300.3900, L100.0500 #### [facility] [address] [place], [address] Platelets (Bld) [#/Vol] 276 10*3/uL Normal 150-450 [facility] Comment on above: Performed By: #### L 300.3900, L100.0500 #### [facility] [address] [place], [address] RBC (Bld) [#/Vol] 4.36 10*6/uL Normal 4.2-5.4 [facility] Comment on above: Performed By: #### L 300.3900, L100.0500 #### [facility] [address] [place], [address] RDW SD 44.4 fl High 35.1-43.9 [facility] Comment on above: Performed By: #### L 300.3900, L100.0500 #### [facility] [address] [place], [address] WBC (Bld) [#/Vol] 7.3 10*3/uL Normal 4.4-11.0 [facility] Comment on above: Performed By: #### L 300.3900, L100.0500 #### [facility] [address] [place], [address] Erythrocyte distribution wid th ratioon 12-26-2023 Erythrocyte distribution width (RBC) [Ratio] 14.4 % 11.6-14.6 [facility] Erythrocyte distribution wid th standard deviationon 12-26-2023 Erythrocyte distribution width (RBC) [Entitic vol] 44.4 fL High 35.1-43.9 [facility] Hematocrit Auto (Bld) [Volum e fraction]on 12-26-2023 Hematocrit (Bld) [Volume fraction] 37.0 % 37-47 [facility] Hemoglobin measurementon Hemoglobin (Bld) [Mass/Vol] 12.6 g/dL 12.0-15.0 [facility] MCV (mean corpuscular volume ) determinationon 12-26-2023 MCV (RBC) [Entitic vol] 84.9 fL 81-99 [facility] Mean corpuscular hemoglobin (MCH) determinationon 12-26-2023 MCH (RBC) [Entitic mass] 28.9 pg 27.0-32.0 [facility] Mean corpuscular hemoglobin concentration (MCHC) determinationon 12-26-2023 MCHC (RBC) [Mass/Vol] 34.1 g/dL 32-[address] [facility] Mean platelet volume determi nationon 12-26-2023 Platelet mean volume (Bld) [Entitic vol] 9.9 fL 6.2-12.0 [facility] Platelet counton 12-26-2023 Platelets (Bld) [#/Vol] 276 10*3/uL 150-450 [facility] Prothrombin Time w/INRon INR Coag (PPP) [Relative time] 2.2 {INR} Normal [facility] Comment on above: Performed By: #### L 300.3900, L100.0500 #### [facility] [address] [place], [address] PT Coag (PPP) [Time] 24.2 s High 11.7-14.9 [facility] Comment on above: Performed By: #### L 300.3900, L100.0500 #### [facility] [address] [place], [address] RBC Auto (Bld) [#/Vol]on RBC (Bld) [#/Vol] 4.36 10*6/uL 4.2-5.4 [facility] White blood cell (WBC) count on 12-26-2023 WBC (Bld) [#/Vol] 7.3 10*3/uL 4.4-11.0 [facility] CBC-Complete Blood Cnt No Di ffon 12-02-2023 Erythrocyte distribution width (RBC) [Ratio] 14.4 % Normal 11.6-14.6 [facility] Comment on above: Order Comment: FAX A TTN RU Performed By: #### L 300.3900, L100.0500 #### [facility] [address] [place], [address] Hematocrit (Bld) [Volume fraction] 37.4 % Normal 37-47 [facility] Comment on above: Order Comment: FAX A TTN RU Performed By: #### L 300.3900, L100.0500 #### [facility] [address] [place], [address] Hemoglobin (Bld) [Mass/Vol] 12.5 g/dL Normal 12.0-15.0 [facility] Comment on above: Order Comment: FAX A TTN RU Performed By: #### L 300.3900, L100.0500 #### [facility] [address] [place], [address] MCH (RBC) [Entitic mass] 28.6 pg Normal 27.0-32.0 [facility] Comment on above: Order Comment: FAX A TTN RU Performed By: #### L 300.3900, L100.0500 #### [facility] [address] [place], [address] MCHC (RBC) [Mass/Vol] 33.4 g/dL Normal 32-[address] [facility] Comment on above: Order Comment: FAX A TTN RU Performed By: #### L 300.3900, L100.0500 #### [facility] [address] [place], [address] MCV (RBC) [Entitic vol] 85.6 fL Normal 81-99 [facility] Comment on above: Order Comment: FAX A TTN RU Performed By: #### L 300.3900, L100.0500 #### [facility] [address] [place], [address] Platelet mean volume (Bld) [Entitic vol] 9.8 fL Normal 6.2-12.0 [facility] Comment on above: Order Comment: FAX A TTN RU Performed By: #### L 300.3900, L100.0500 #### [facility] [address] [place], [address] Platelets (Bld) [#/Vol] 283 10*3/uL Normal 150-450 [facility] Comment on above: Order Comment: FAX A TTN RU Performed By: #### L 300.3900, L100.0500 #### [facility] [address] [place], [address] RBC (Bld) [#/Vol] 4.37 10*6/uL Normal 4.2-5.4 [facility] Comment on above: Order Comment: FAX A TTN RU Performed By: #### L 300.3900, L100.0500 #### [facility] [address] [place], [address] RDW SD 45.1 fl High 35.1-43.9 [facility] Comment on above: Order Comment: FAX A TTN RU Performed By: #### L 300.3900, L100.0500 #### [facility] [address] [place], [address] WBC (Bld) [#/Vol] 12.5 10*3/uL High 4.4-11.0 [facility] Comment on above: Order Comment: FAX A TTN RU Performed By: #### L 300.3900, L100.0500 #### [facility] [address] [place], [address] Prothrombin Time w/INRon INR Coag (PPP) [Relative time] 2.3 {INR} Normal [facility] Comment on above: Order Comment: FAX A TTN RU Performed By: #### L 300.3900, L100.0500 #### [facility] [address] [place], [address] PT Coag (PPP) [Time] 24.9 s High 11.7-14.9 [facility] Comment on above: Order Comment: FAX A TTN RU Performed By: #### L 300.3900, L100.0500 #### [facility] [address] [place], [address] CBC W/Diff, Automatedon 10-0 Absolute Lymph 1.74 X10 3/uL Normal 0.83-4.51 [facility] Comment on above: Performed By: #### L 300.3900, L100.0500 #### [facility] [address] [place], [address] Absolute Neut 12.6 X10 3/uL High 2.0-7.7 [facility] Comment on above: Performed By: #### L 300.3900, L100.0500 #### [facility] [address] [place], [address] Basophils/100 WBC (Bld) 0.3 % Normal 0-1 [facility] Comment on above: Performed By: #### L 300.3900, L100.0500 #### [facility] [address] [place], [address] Eosinophils/100 WBC (Bld) 1.5 % Normal 0-5 [facility] Comment on above: Performed By: #### L 300.3900, L100.0500 #### [facility] [address] [place], [address] Erythrocyte distribution width (RBC) [Ratio] 14.8 % High 11.6-14.6 [facility] Comment on above: Performed By: #### L 300.3900, L100.0500 #### [facility] [address] [place], [address] Hematocrit (Bld) [Volume fraction] 36.7 % Low 37-47 [facility] Comment on above: Performed By: #### L 300.3900, L100.0500 #### [facility] [address] [place], [address] Hemoglobin (Bld) [Mass/Vol] 12.1 g/dL Normal 12.0-15.0 [facility] Comment on above: Performed By: #### L 300.3900, L100.0500 #### [facility] [address] [place], [address] IG% 0.400 Normal 0.0-0.9 [facility] Comment on above: Result Comment: IG% - Immature Granulocytes (promyelocytes, myelocytes and metamyelocytes) > 1% indicates that a LEFT SHIFT is Present. Performed By: #### L 300.3900, L100.0500 #### [facility] [address] [place], [address] Lymphocytes/100 WBC (Bld) 11.2 % Low 19-41 [facility] Comment on above: Performed By: #### L 300.3900, L100.0500 #### [facility] [address] [place], [address] MCH (RBC) [Entitic mass] 28.1 pg Normal 27.0-32.0 [facility] Comment on above: Performed By: #### L 300.3900, L100.0500 #### [facility] [address] [place], [address] MCHC (RBC) [Mass/Vol] 33.0 g/dL Normal 32-[address] [facility] Comment on above: Performed By: #### L 300.3900, L100.0500 #### [facility] [address] [place], [address] MCV (RBC) [Entitic vol] 85.2 fL Normal 81-99 [facility] Comment on above: Performed By: #### L 300.3900, L100.0500 #### [facility] [address] [place], [address] Monocytes/100 WBC (Bld) 5.7 % Normal 0-10 [facility] Comment on above: Performed By: #### L 300.3900, L100.0500 #### [facility] [address] [place], [address] Neutrophils/100 WBC (Bld) 80.9 % High 47-70 [facility] Comment on above: Performed By: #### L 300.3900, L100.0500 #### [facility] [address] [place], [address] Nucleated RBC (Bld) [#/Vol] 0 10*3/uL Normal 0-5 [facility] Comment on above: Performed By: #### L 300.3900, L100.0500 #### [facility] [address] [place], [address] Platelet mean volume (Bld) [Entitic vol] 9.8 fL Normal 6.2-12.0 [facility] Comment on above: Performed By: #### L 300.3900, L100.0500 #### [facility] [address] [place], [address] Platelets (Bld) [#/Vol] 278 10*3/uL Normal 150-450 [facility] Comment on above: Performed By: #### L 300.3900, L100.0500 #### [facility] [address] [place], [address] RBC (Bld) [#/Vol] 4.31 10*6/uL Normal 4.2-5.4 [facility] Comment on above: Performed By: #### L 300.3900, L100.0500 #### [facility] [address] [place] [place], [address] RDW SD 46.4 fl High 35.1-43.9 [facility] Comment on above: Performed By: #### L 300.3900, L100.0500 #### [facility] [address] [place], [address] WBC (Bld) [#/Vol] 15.5 10*3/uL High 4.4-11.0 [facility] Comment on above: Performed By: #### L 300.3900, L100.0500 #### [facility] [address] [place], [address] Emergency Department Summary on 11-23-2023 Emergency Department Summary [facility] Medical Records Department [address] [place] [address] Emergency Department Summary 11/23/23 MR#: [id number] Acct: [id number] Name: GARDENIA MUJICA MELONY Rep #: [id number] : 1965 58 From: Tylor Velasquez MD PCP: [facility] Status[facility] Location: ED HPI History of Present Illness HPI Narrative: 58-year-old female picked up what she thought was a mole it turned out to be a bat and bit her in her right hand on the proximal aspect of her right long finger. This occurred on Tuesday. She was told to come to the emergency department to be evaluated for possible rabies vaccine. She denies any complaints. Chief Complaint: Bite Informant: patient Occured/Mechanism Comment: Bat bite right hand. Narrative Prior similar symptoms: No Recent Illness/Hospitalization: No ROS ROS ED ROS Narrative Denies any recent illness. Constitutional Constitutional ED: Denies chills or fever(s) Eyes Eyes: Denies blurry vision ENT ENT ED: Denies ear pain Cardiovascular Cardiovascular: Denies chest pain Respiratory/Chest Respiratory/Chest: Denies cough Gastrointestinal Gastrointestinal: Denies abdominal pain Genitourinary Genitourinary ED: Denies dysuria Musculoskeletal Musculoskeletal: Denies arthralgias Integumentary Denies abscess Neurologic Neurologic: Denies headache(s) Psychiatric Psychiatric: Denies anxiety Endocrine Endocrinology: Denies polydipsia Hematologic/Lymphatic Hematologic/Lymphatic: Denies easy bleeding or easy bruising Allergic/Immunologic Allergic/Immunologic ED: Denies mouth swelling PFSH PFSH Medical History Thoracic aortic aneurysm Nonrheumatic aortic (valve) insufficiency Bicuspid aortic valve Hyperlipidemia GERD (gastroesophageal reflux disease) History of malignant neoplasm of cervix Abnormal Pap smear of cervix Hypertension Home Medications ???Medication ???Instructions ???Recorded ???Last Taken ???Type estradiol 1 mg tablet 1 mg PO DAILY hot flash 04/09/19 04/09/19 History multivitamin 1 ea PO DAILY 07/16/19 Unknown History warfarin 3 mg tablet 3 mg PO DAILY Managed by MI #30 12/18/21 Unknown Rx tabs Allergy/AdvReac Type Severity Reaction Status Date / Time No Known Allergies Allergy Verified 11/23/23 16:33 Family History Grandmother Heart disease Mother Heart disease Surgical History Status post aortic valve replacement ( 05/28/09) History of thoracic aortic aneurysm repair ( 05/28/09) History of aortic valve replacement with metallic valve ( 05/28/09) delivery delivered S/P gastroplasty Hx of cholecystectomy femur surgery Mechanical heart valve present Hx of abdominal hysterectomy Social History Smoking Status: Never smoker alcohol intake: never substance use type: does not use caffeine: Yes what type of physical activity do you participate in: running and other details: crossfit frequency: 3-4 times per week seatbelt use: always do you feel safe at home: Yes additional 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 Vital signs stable afebrile. H EENT exam unremarkable. Neck nontender. No lymphadenopathy. Lungs clear to auscultation. Heart regular rhythm no murmur. Abdomen soft nontender. Moving all 4 extremities. Right hand she believes she was bit on the proximal aspect of her right long finger there is no signs of a bite or infection. There is no swelling or redness. She has full flexion extension of all digits of the right hand. Neurovascular intact. Otherwise exam unremarkable. Const Vital Signs: 11/23/23 16:33 Temperature 97.1 F L Temperature Source Temporal Pulse Rate 84 Respiratory Rate 16 Blood Pressure 143/81 H Blood Pressure Mean 101 Pulse Ox 100 Oxygen Delivery Method Room Air Positive well nourished and well developed; Negative for cachectic, contractures or unkempt General Appearance ED: well developed and NAD; Negative for unkempt, cachectic or contractures Nutritional Appearance: Negative for cachectic HEENT Reports moist mucous membranes normocephalic and atraumatic; Negative for trauma Eyes PERRL and EOMs intact bilaterally Neck full ROM and no lymphadenopathy Resp normal respiratory effort and clear to auscultation bilaterally Cardio regular rate, regular rhythm, S1 normal heart sound and S2 normal heart sound GI non-tender, non-distended and no masses Back/Spine no CVA tenderness Extremity normal to inspection and full ROM Extremity Narrative: No signs of any (more content not included)... Normal [facility] Prothrombin Time w/INRon INR Coag (PPP) [Relative time] 2.5 {INR} Normal [facility] Comment on above: Performed By: #### L 300.3900, L100.0500 #### [facility] [address] [place], [place], [address] PT Coag (PPP) [Time] 27.0 s High 11.7-14.9 [facility] Comment on above: Performed By: #### L 300.3900, L100.0500 #### [facility] [address] [place], [address] Liver Profileon 11-16-2023 Albumin [Mass/Vol] 3.7 g/dL Normal 3.2-5.0 [facility] Comment on above: Performed By: #### L 300.3900, L100.0500 #### [facility] [address] [place], [address] ALK P 148 U/L High 45-117 [facility] Comment on above: Performed By: #### L 300.3900, L100.0500 #### [facility] [address] [place], [address] ALT [Catalytic activity/Vol] 30 U/L Normal 13-56 [facility] Comment on above: Performed By: #### L 300.3900, L100.0500 #### [facility] [address] [place], [address] AST [Catalytic activity/Vol] 22 U/L Normal 15-37 [facility] Comment on above: Performed By: #### L 300.3900, L100.0500 #### [facility] [address] [place], [address] Bilirubin [Mass/Vol] 0.50 mg/dL Normal 0.20-1.00 [facility] Comment on above: Result Comment: For patients on eltrombopag therapy, use of Dimension [place] TBIL is not recommended. Performed By: #### L 300.3900, L100.0500 #### [facility] [address] [place], [address] Bilirubin.direct [Mass/Vol] 0.13 mg/dL Normal 0.00-0.30 [facility] Comment on above: Performed By: #### L 300.3900, L100.0500 #### [facility] [address] [place], [address] Globulin (S) [Mass/Vol] 3.7 g/dL Normal 2.2-4.2 [facility] Comment on above: Performed By: #### L 300.3900, L100.0500 #### [facility] [address] [place], [address] T PROT 7.4 g/dL Normal 6.4-8.2 [facility] Comment on above: Performed By: #### L 300.3900, L100.0500 #### [facility] [address] [place], [address] Prothrombin Time w/INRon INR Coag (PPP) [Relative time] 2.3 {INR} Normal [facility] Comment on above: Performed By: #### L 300.3900, L100.0500 #### [facility] [address] [place], [address] PT Coag (PPP) [Time] 24.7 s High 11.7-14.9 [facility] Comment on above: Performed By: #### L 300.3900, L100.0500 #### [facility] [address] [place], [address] [id number] GARDENIA MUJICA ([id number]) 1965 F T Date Time Provider Department 11/02/23 FREDERICK COLVIN4 During your visit today, we recorded the following information about you: Ovidio Humphries 11/02/2023 11:34 AM Signed LVM for pt to call back and schedule with ANODE ADJUSTER Around 11/25/23 [facility] GERD-SEE TE 07/31 Allergies As [...] Date Reviewed: 10/28/2023 Reviewed by: Frederick Colvin APRN.PULMONARY FELLOW - Fully Assessed Reason for Visit: Appointment [...] Encounter Status:Closed by OVIDIO HUMPHRIES on 11/02/23 [facility] CBC-Complete Blood Cnt No Di ffon 10-25-2023 Erythrocyte distribution width (RBC) [Ratio] 15.2 % High 11.6-14.6 [facility] Comment on above: Order Comment: FAX 2 [id number] RESULTS TO [id number] EXT 91591 Performed By: #### L 100.0500, L300.3900 ####[facility] [address] [place], [address] Hematocrit (Bld) [Volume fraction] 35.4 % Low 37-47 [facility] Comment on above: Order Comment: FAX 2 [id number] RESULTS TO [id number] EXT 59470 Performed By: #### L 100.0500, L300.3900 ####[facility] [address] [place], [address] Hemoglobin (Bld) [Mass/Vol] 11.5 g/dL Low 12.0-15.0 [facility] Comment on above: Order Comment: FAX 2 [id number] RESULTS TO [id number] EXT 19923 Performed By: #### L 100.0500, L300.3900 ####[facility] [address] [place], [address] MCH (RBC) [Entitic mass] 27.2 pg Normal 27.0-32.0 [facility] Comment on above: Order Comment: FAX 2 [id number] RESULTS TO [id number] EXT 32210 Performed By: #### L 100.0500, L300.3900 ####[facility] [address] [place], [address] MCHC (RBC) [Mass/Vol] 32.5 g/dL Normal 32-[address] [facility] Comment on above: Order Comment: FAX 2 [id number] RESULTS TO [id number] EXT 41506 Performed By: #### L 100.0500, L300.3900 ####[facility] [address] [place], [address] MCV (RBC) [Entitic vol] 83.7 fL Normal 81-99 [facility] Comment on above: Order Comment: FAX 2 [id number] RESULTS TO [id number] EXT 80423 Performed By: #### L 100.0500, L300.3900 ####[facility] [address] [place], [address] Platelet mean volume (Bld) [Entitic vol] 10.0 fL Normal 6.2-12.0 [facility] Comment on above: Order Comment: FAX 2 [id number] RESULTS TO [id number] EXT 51905 Performed By: #### L 100.0500, L300.3900 ####[facility] [address] [place], [address] Platelets (Bld) [#/Vol] 296 10*3/uL Normal 150-450 [facility] Comment on above: Order Comment: FAX 2 [id number] RESULTS TO [id number] EXT [id number] Performed By: #### L 100.0500, L300.3900 ####[facility] [address] [place], [address] RBC (Bld) [#/Vol] 4.23 10*6/uL Normal 4.2-5.4 [facility] Comment on above: Order Comment: FAX 2 [id number] RESULTS TO [id number] EXT 10239 Performed By: #### L 100.0500, L300.3900 ####[facility] [address] [place], [address] RDW SD 45.9 fl High 35.1-43.9 [facility] Comment on above: Order Comment: FAX 2 [id number] RESULTS TO [id number] EXT 27399 Performed By: #### L 100.0500, L300.3900 ####[facility] [address] [place], [address] WBC (Bld) [#/Vol] 8.6 10*3/uL Normal 4.4-11.0 [facility] Comment on above: Order Comment: FAX 2 [id number] RESULTS TO [id number] EXT 28111 Performed By: #### L 100.0500, L300.3900 ####[facility] [address] [place], [address] Prothrombin Time w/INRon INR Coag (PPP) [Relative time] 2.3 {INR} Normal [facility] Comment on above: Performed By: #### L 100.0500, L300.3900 ####[facility] [address] [place], [address] PT Coag (PPP) [Time] 25.5 s High 11.7-14.9 [facility] Comment on above: Performed By: #### L 100.0500, L300.3900 ####[facility] [address] [place], [address] 25(OH)D3 SerPl-mCncon 2023 25-hydroxyvitamin D3 [Mass/Vol] 31.1 ng/mL Normal 31.0-80.0 [facility] Comment on above: Order Comment: Speci men Type: BLOOD SPECIMEN Ordering Facility: [facility] Address: [address] [place] [address] Result Comment: Clas sification of 25 [place] Vitamin D status: Deficiency/Insufficiency: < or = 30 ng/ml. Sufficiency/Optimal Levels: 31-80 ng/mL Toxicity: > 100 ng/mL. Test performed by chemiluminescent immunoassay. Performed By: #### B 1WB #### [facility] CLIA [id number] [address] [place] [address] [place] CBC panel Auto (Bld)on 10-13 Erythrocyte distribution width (RBC) [Ratio] 14.7 % Normal 11.5-15.0 [facility] Comment on above: Order Comment: Speci men Type: BLOOD SPECIMEN Ordering Facility: [facility] Address: [address] [place] [address] Performed By: #### B 1WB #### [facility] CLIA [id number] [address] [place] [address] [place] Hematocrit (Bld) [Volume fraction] 33.4 % Low 36.0-46.0 [facility] Comment on above: Order Comment: Speci men Type: BLOOD SPECIMEN Ordering Facility: [facility] Address: [address] [place] [address] Performed By: #### B 1WB #### [facility] CLIA [id number] [address] [place] [address] [place] Hemoglobin (Bld) [Mass/Vol] 10.9 g/dL Low 11.5-15.5 [facility] Comment on above: Order Comment: Speci men Type: BLOOD SPECIMEN Ordering Facility: [facility] Address: [address] [place] [address] Performed By: #### B 1WB #### [facility] CLIA [id number] [address] [place] [address] [place] MCH (RBC) [Entitic mass] 27.3 pg Normal 26.0-34.0 [facility] Comment on above: Order Comment: Speci men Type: BLOOD SPECIMEN Ordering Facility: [facility] Address: [address] [place] [address] Performed By: #### B 1WB #### [facility] CLIA [id number] [address] [place] [address] [place] MCHC (RBC) [Mass/Vol] 32.6 g/dL Normal 30.5-36.0 [facility] Comment on above: Order Comment: Speci men Type: BLOOD SPECIMEN Ordering Facility: [facility] Address: [address] [place] [address] Performed By: #### B 1WB #### [facility] CLIA [id number] [address] [place] [address] [place] MCV (RBC) [Entitic vol] 83.5 fL Normal 80.0-100.0 [facility] Comment on above: Order Comment: Speci men Type: BLOOD SPECIMEN Ordering Facility: [facility] Address: [address] [place] [address] Performed By: #### B 1WB #### [facility] CLIA [id number] [address] [place] [address] [place] Nucleated RBC (Bld) [#/Vol] 10*3/uL Normal <0.01 [facility] Comment on above: Order Comment: Speci men Type: BLOOD SPECIMEN Ordering Facility: [facility] Address: [address] [place] [address] Performed By: #### B 1WB #### [facility] CLIA [id number] [address] [place] [address] [place] Platelet mean volume (Bld) [Entitic vol] 9.7 fL Normal 9.0-12.7 [facility] Comment on above: Order Comment: Speci men Type: BLOOD SPECIMEN Ordering Facility: [facility] Address: [address] [place] [address] Performed By: #### B 1WB #### [facility] CLIA [id number] [address] [place] [address] [place] Platelets (Bld) [#/Vol] 264 10*3/uL Normal 150-400 [facility] Comment on above: Order Comment: Speci men Type: BLOOD SPECIMEN Ordering Facility: [facility] Address: [address] [place] [address] Performed By: #### B 1WB #### [facility] CLIA [id number] [address] [place] [address] [place] RBC (Bld) [#/Vol] 4.00 10*6/uL Normal 3.90-5.20 [facility] Comment on above: Order Comment: Speci men Type: BLOOD SPECIMEN Ordering Facility: [facility] Address: [address] [place] [address] Performed By: #### B 1WB #### [facility] CLIA [id number] [address] [place] [address] [place] WBC (Bld) [#/Vol] 6.02 10*3/uL Normal 3.70-11.00 [facility] Comment on above: Order Comment: Speci men Type: BLOOD SPECIMEN Ordering Facility: [facility] Address: [address] [place] [address] Performed By: #### B 1WB #### [facility] CLIA [id number] [address] [place] [address] [place] Comprehensive metabolic 2000 panelon 10-14-2023 Albumin [Mass/Vol] 4.2 g/dL Normal 3.9-4.9 [facility] Comment on above: Order Comment: Speci men Type: BLOOD SPECIMEN Ordering Facility: [facility] Address: [address] [place] [address] Performed By: #### 2 4323-8 #### [facility] CLIA [id number] [address] [place] [address] [place] ALP [Catalytic activity/Vol] 147 U/L High 34-123 [facility] Comment on above: Order Comment: Speci men Type: BLOOD SPECIMEN Ordering Facility: [facility] Address: [address] [place] [address] Performed By: #### 2 4323-8 #### [facility] CLIA [id number] [address] [place] [address] [place] ALT [Catalytic activity/Vol] 21 U/L Normal 7-38 [facility] Comment on above: Order Comment: Speci men Type: BLOOD SPECIMEN Ordering Facility: [facility] Address: [address] [place] [address] Performed By: #### 2 4323-8 #### [facility] CLIA [id number] [address] [place] [address] [place] Anion gap [Moles/Vol] 11 mmol/L Normal 8-15 [facility] Comment on above: Order Comment: Speci men Type: BLOOD SPECIMEN Ordering Facility: [facility] Address: [address] [place] [address] Performed By: #### 2 4323-8 #### [facility] CLIA [id number] [address] [place] [address] [place] AST [Catalytic activity/Vol] 24 U/L Normal 13-35 [facility] Comment on above: Order Comment: Speci men Type: BLOOD SPECIMEN Ordering Facility: [facility] Address: [address] [place] [address] Performed By: #### 2 4323-8 #### [facility] CLIA [id number] [address] [place] [address] [place] Bilirubin [Mass/Vol] 0.4 mg/dL Normal 0.2-1.3 [facility] Comment on above: Order Comment: Speci men Type: BLOOD SPECIMEN Ordering Facility: [facility] Address: [address] [place] [address] Performed By: #### 2 4323-8 #### [facility] CLIA [id number] [address] [place] [address] [place] Calcium [Mass/Vol] 9.7 mg/dL Normal 8.5-10.2 [facility] Comment on above: Order Comment: Speci men Type: BLOOD SPECIMEN Ordering Facility: [facility] Address: [address] [place] [address] Performed By: #### 2 4323-8 #### [facility] CLIA [id number] [address] [place] [address] [place] Chloride [Moles/Vol] 106 mmol/L Normal 98-107 [facility] Comment on above: Order Comment: Speci men Type: BLOOD SPECIMEN Ordering Facility: [facility] Address: [address] [place] [address] Performed By: #### 2 4323-8 #### [facility] CLIA [id number] [address] [place] [address] [place] CO2 [Moles/Vol] 23 mmol/L Normal 22-30 [facility] Comment on above: Order Comment: Speci men Type: BLOOD SPECIMEN Ordering Facility: [facility] Address: [address] [place] [address] Performed By: #### 2 4323-8 #### [facility] CLIA [id number] [address] [place] [address] [place] Creatinine [Mass/Vol] 0.82 mg/dL Normal 0.58-0.96 [facility] Comment on above: Order Comment: Speci men Type: BLOOD SPECIMEN Ordering Facility: [facility] Address: [address] [place] [address] Performed By: #### 2 4323-8 #### [facility] CLIA [id number] [address] [place] [address] [place] Creatinine and Glomerular filtration rate.predicted panel (S/P/Bld) 83 mL/min/1.73m??? Normal >=60 [facility] Comment on above: Order Comment: Dominic steel Type: BLOOD SPECIMEN Ordering Facility: [facility] Address: [address] [place] [address] Result Comment: Susie mated Glomerular Filtration Rate [...] GFR. Performed By: #### 2 4323-8 #### [facility] CLIA [id number] [address] [place] [address] [place] Glucose [Mass/Vol] 92 mg/dL Normal 74-99 [facility] Comment on above: Order Comment: Dominic steel Type: BLOOD SPECIMEN Ordering Facility: [facility] Address: [address] [place] [address] Result Comment: The [place] Diabetes Association (ADA) provides guidance for cutoff [...] Standards of Medical Care in Diabetes 2016, [place] Diabetes Association. Diabetes Care. 2016.39(Suppl 1). Performed By: #### 2 4323-8 #### [facility] CLIA [id number] [address] [place] [address] [place] Potassium [Moles/Vol] 3.8 mmol/L Normal 3.7-5.1 [facility] Comment on above: Order Comment: Speci men Type: BLOOD SPECIMEN Ordering Facility: [facility] Address: [address] [place] [address] Performed By: #### 2 4323-8 #### [facility] CLIA [id number] [address] [place] [address] [place] Protein [Mass/Vol] 6.8 g/dL Normal 6.3-8.0 [facility] Comment on above: Order Comment: Speci men Type: BLOOD SPECIMEN Ordering Facility: [facility] Address: [address] [place] [address] Performed By: #### 2 4323-8 #### [id number] [address] [place] [address] [place] Sodium [Moles/Vol] 140 mmol/L Normal 136-144 [facility] Comment on above: Order Comment: Speci men Type: BLOOD SPECIMEN Ordering Facility: [facility] Address: [address] [place] [address] Performed By: #### 2 4323-8 #### [facility] [id number] [address] [place] [address] [place] Urea nitrogen [Mass/Vol] 21 mg/dL Normal 7-21 [facility] Comment on above: Order Comment: Speci men Type: BLOOD SPECIMEN Ordering Facility: [facility] Address: [address] [place] [address] Performed By: #### 2 4323-8 #### [facility] CLIA [id number] [address] [place] [address] [place] Ferritin SerPl-mCncon 2023 Ferritin [Mass/Vol] 22.9 ng/mL Normal 14.7-205.1 [facility] Comment on above: Order Comment: Dominic steel Type: BLOOD SPECIMEN Ordering Facility: [facility] Address: [address] [place] [address] Performed By: #### B 1WB #### [facility] CLIA [id number] [address] [place] [address] [place] Folate SerPl-mCncon 10-14-19 24 Folate [Mass/Vol] 11.6 ng/mL Normal >4.7 [facility] Comment on above: Order Comment: Dominic steel Type: BLOOD SPECIMEN Ordering Facility: [facility] Address: [address] [place] [address] Performed By: #### 2 132-9, 2284-8, 2731-8 #### [facility] CLIA [id number] [address] [place] [address] [place] HbA1c (Bld)on 10-14-2023 Average glucose Estimated from glycated hemoglobin (Bld) [Mass/Vol] 111 mg/dL Normal [facility] Comment on above: Order Comment: Dominic steel Type: BLOOD SPECIMEN Ordering Facility: [facility] Address: [address] [place] [address] Result Comment: eAG: (Estimated average glucose) is a calculated value from HgbA1c and is brand representative of the average blood glucose level in the last 2-3 month period. Performed By: #### B 1WB #### [facility] CLIA [id number] [address] [place] [address] [place] HbA1c (Bld) [Mass fraction] 5.5 % Normal 4.3-5.6 [facility] Comment on above: Order Comment: Dominic steel Type: BLOOD SPECIMEN Ordering Facility: [facility] Address: [address] [place] [address] Result Comment: Amer [place] Diabetes Association guidelines indicate that patients with HgbA1c in the range 5.7-6.4% are at increased risk for development of diabetes, and intervention by lifestyle modification may be beneficial. HgbA1c greater or equal to 6.5% is considered diagnostic of diabetes. Performed By: #### B 1WB #### [facility] CLIA [id number] [address] [place] [address] [place] Iron and Iron binding capaci ty panelon 10-14-2023 Iron [Mass/Vol] 40 ug/dL Low 41-186 [facility] Comment on above: Order Comment: Speci men Type: BLOOD SPECIMEN Ordering Facility: [facility] Address: [address] [place] [address] Performed By: #### 3 016-3, 86714-3, 2275-05 #### [facility] CLIA [id number] [address] [place] [address] [place] #### 68120-1 #### [facility] CLIA [id number] [address] [place] [address] [place] [facility] CLIA [id number] [address] [place] [address] [place] Iron binding capacity [Mass/Vol] 348 ug/dL Normal 232-386 [facility] Comment on above: Order Comment: Speci men Type: BLOOD SPECIMEN Ordering Facility: [facility] Address: [address] [place] [address] Performed By: #### 3 016-3, 85091-4, 2275-05 #### [facility] CLIA [id number] [address] [place] [address] [place] #### 45582-6 #### [facility] CLIA [id number] [address] [place] [address] [place] [facility] CLIA [id number] [address] [place] [address] [place] Iron/TIBC [Molar ratio] 11.5 % Low 15.0-57.0 [facility] Comment on above: Order Comment: Speci men Type: BLOOD SPECIMEN Ordering Facility: [facility] Address: [address] [place] [address] Performed By: #### 3 016-3, 49256-0, 2275- #### [facility] CLIA [id number] [address] [place] [address] [place] #### 89022-2 #### [facility] CLIA [id number] [address] [place] [address] [place] [facility] CLIA [id number] [address] [place] [address] [place] Lipid 1996 panelon 4 Cholesterol [Mass/Vol] 182 mg/dL Normal <200 [facility] Comment on above: Order Comment: Speci men Type: BLOOD SPECIMEN Ordering Facility: [facility] Address: [address] [place] [address] Result Comment: <200 mg/dL, Desirable 200-239 mg/dL, Borderline high >239 mg/dL, High Performed By: #### 3 016-3, 31205-5, 2275-05 #### [facility] CLIA [id number] [address] [place] [address] [place] #### 15930-7 #### [facility] CLIA [id number] [address] [place] [address] [place] [facility] CLIA [id number] [address] [place] [address] [place] Cholesterol in HDL [Mass/Vol] 35 mg/dL Low >39 [facility] Comment on above: Order Comment: Speci men Type: BLOOD SPECIMEN Ordering Facility: [facility] Address: [address] [place] [address] Result Comment: 40-5 9 mg/dL, Acceptable >59 mg/dL, High: Negative risk factor for coronary heart disease <40 mg/dL, Low: Positive risk factor for coronary heart disease Performed By: #### 3 016-3, 69634-0, 2275-4 #### [facility] CLIA [id number] [address] [place] [address] [place] #### 26868-7 #### [facility] CLIA [id number] [address] [place] [address] [place] [facility] CLIA [id number] [address] [place] [address] [place] Cholesterol in LDL [Mass/Vol] 96 mg/dL Normal <100 [facility] Comment on above: Order Comment: Speci men Type: BLOOD SPECIMEN Ordering Facility: [facility] Address: [address] [place] [address] Result Comment: <100 mg/dL, Optimal 100-129 mg/dL, Near optimal/above optimal 130-159 mg/dL, Borderline high 160-189 mg/dL, High >189 mg/dL, Very high Secondary prevention optimal LDL Cholesterol levels are recommended to be < 70 mg/dL Performed By: #### 3 016-3, 35750-4, 2275- #### [facility] CLIA [id number] [address] [place] [address] [place] #### 27222-2 #### [facility] CLIA [id number] [address] [place] [address] [place] [facility] CLIA [id number] [address] [place] [address] [place] Cholesterol in LDL/Cholesterol in HDL [Mass ratio] 2.74 {ratio} High <2.54 [facility] Comment on above: Order Comment: Speci men Type: BLOOD SPECIMEN Ordering Facility: [facility] Address: [address] [place] [address] Result Comment: Aura silva: 1. National Cholesterol Education Program ATP III Guideline At-A-Glance Quick Desk Reference: National Heart, Lung, and Blood [place]. National Institutes of Health. 2001: NIH Publication No. 01-3305. 2. An International Atherosclerosis Society position paper: global recommendations for the management of dyslipidemia: executive summary, Atherosclerosis. 2014: 232(2):410-413. Performed By: #### 3 016-3, 33293-4, 2275-4 #### [facility] CLIA [id number] [address] [place] [address] [place] [facility] #### 51390-2 #### [facility] CLIA [id number] [address] [place] [address] [place] [facility] CLIA [id number] [address] [place] [address] [place] Cholesterol in VLDL [Mass/Vol] 51 mg/dL High <30 [facility] Comment on above: Order Comment: Speci men Type: BLOOD SPECIMEN Ordering Facility: [facility] Address: [address] [place] [address] Performed By: #### 3 016-3, 41688-1, 2275-4 #### [facility] CLIA [id number] [address] [place] [address] [place] #### 99676-2 #### [facility] CLIA [id number] [address] [place] [address] [place] [facility] CLIA [id number] [address] [place] [address] [place] Cholesterol non HDL [Mass/Vol] 147 mg/dL High <130 [facility] Comment on above: Order Comment: Speci men Type: BLOOD SPECIMEN Ordering Facility: [facility] Address: [address] [place] [address] Result Comment: <130 mg/dL, Optimal 130-159 mg/dL, Near optimal/above optimal 160-189 mg/dL, Borderline high 190-219 mg/dL, High >219 mg/dL, Very high Secondary prevention optimal non HDL Cholesterol levels are recommended to be <100 mg/dL Performed By: #### 3 016-3, 98286-4, 2275-05 #### [facility] CLIA [id number] [address] [place] [address] [place] #### 74119-6 #### [facility] CLIA [id number] [address] [place] [address] [place] [facility] CLIA [id number] [address] [place] [address] [place] Cholesterol.total/Cho lesterol in HDL [Mass ratio] 5.20 {ratio} High <5.10 [facility] Comment on above: Order Comment: Speci men Type: BLOOD SPECIMEN Ordering Facility: [facility] Address: [address] [place] [address] Performed By: #### 3 016-3, 63243-0, 2275-05 #### [facility] CLIA [id number] [address] [place] [address] [place] #### 02710-2 #### [facility] CLIA [id number] [address] [place] [address] [place] [facility] [id number] [address] [place] [address] [place] FASTING TIME 18 hrs Normal [facility] Comment on above: Order Comment: Speci men Type: BLOOD SPECIMEN Ordering Facility: [facility] Address: [address] [place] [id number] Performed By: #### 3 016-3, 79708-2, 2275-05 #### [facility] CLIA [id number] [address] [place] [address] [place] #### 65283-1 #### [facility] CLIA [id number] [address] [place] [address] [place] [facility] [id number] [address] [place] [address] [place] Triglyceride [Mass/Vol] 254 mg/dL High <150 [facility] Comment on above: Order Comment: Speci men Type: BLOOD SPECIMEN Ordering Facility: [facility] Address: [address] [place] [address] Result Comment: <150 mg/dL, Normal 150-199 mg/dL, Borderline high 200-499 mg/dL, High >499 mg/dL, Very high Performed By: #### 3 016-3, 44019-8, 2276-4 #### [facility] CLIA [id number] [address] [place] [address] [place] #### 16631-2 #### [facility] CLIA [id number] [address] [place] [address] [place] [facility] [id number] [address] [place] [address] [place] PTH-Intact SerPl-mCncon - 0 Parathyrin.intact [Mass/Vol] 67 pg/mL High 15-65 [facility] Comment on above: Order Comment: Speci men Type: BLOOD SPECIMEN Ordering Facility: [facility] Address: [address] [place] [address] Performed By: #### 2 132-9, 2284-8, 2731-8 #### [facility] CLIA [id number] [address] [place] [address] [place] TSH SerPl-aCncon 10-14-2023 TSH Qn 1.530 m[IU]/L Normal 0.270-4.20 0 [facility] Comment on above: Order Comment: Speci men Type: BLOOD SPECIMEN Ordering Facility: [facility] Address: [address] [place] [address] Performed By: #### B 1WB #### [facility] CLIA [id number] [address] [facility] [place] [address] [place] US ABD RIGHT UPPER QUADRANTo n 10-14-2023 US ABD RIGHT UPPER QUADRANT * * *Final Report* * * DATE OF EXAM: Oct 14 2023 2:02PM WRU 1032 - US ABD RIGHT UPPER QUADRANT [...] sonographic appearance of the right upper quadrant. Sql Programmer: BULL Transcribe Date/Time: Oct 14 2023 3:36P Dictated by : RAFAL THAYER MD This examination was interpreted and the report reviewed and electronically signed by: RAFAL THAYER MD on Oct 14 2023 3:38PM EST [id number] Normal [facility] US Abdomen RUQon 10-14-2023 IMPRESSION: Fatty infiltration of the liver Otherwise normal sonographic appearance of the right upper quadrant. Sql Programmer: [facility] Transcribe Date/Time: Oct 14 2023 3:36P Dictated by : RAFAL THAYER MD This examination was interpreted and the report reviewed and electronically signed by: RAFAL THAYER MD on Oct 14 2023 3:38PM EST DIVISION OF RADIOLOGY * * *Final Report* * * DATE OF EXAM: Oct 14 2023 2:02PM WRU 1032 - US ABD RIGHT UPPER QUADRANT [...] hydronephrosis. Ascites: None. DIVISION OF RADIOLOGY Provider, Rehana Vini [facility] - 10/14/2023 * * *Final Report* * [...] sonographic appearance of the right upper quadrant. Sql Programmer: PSCB Transcribe Date/Time: Oct 14 2023 3:36P Dictated by : RAFAL THAYER MD This examination was interpreted and the report reviewed and electronically signed by: RAFAL THAYER MD on Oct 14 2023 3:38PM EST [facility] Radiology Study observation (narrative) [facility] US Abdomen RUQOrdered By: Cc f Provider on 10-14-2023 [facility] VITAMIN B1 (THIAMINE), WHOLE BLOODon 10-14-2023 Thiamine (Bld) [Moles/Vol] 141.9 nmol/L Normal 84.3-213.3 [facility] Comment on above: Order Comment: Dominic steel Type: BLOOD SPECIMEN Ordering Facility: [facility] Address: [address] [place] [address] Result Comment: This assay measures the concentration of thiamine diphosphate (TDP), the primary active form of vitamin B1. Approximately 90 percent of vitamin B1 present in whole blood is TDP. Thiamine and thiamine monophosphate, which comprise the remaining 10 percent, are not measured. This test was developed and its performance characteristics determined by [facility]'s [facility] Pathology and Laboratory Medicine [place] [facility] It has not been cleared or approved by the FDA. [facility] is regulated under CLIA as qualified to perform high-complexity testing. This test is used for clinical purposes. It should not be regarded as investigational or for research. Performed By: #### B 1WB #### [facility] CLIA [id number] [address] [place] [address] [place] Vit A SerPl-ncon 4 Retinol [Mass/Vol] 0.44 mg/L Normal 0.30-1.20 [facility] Comment on above: Order Comment: Dominic steel Type: BLOOD SPECIMEN Ordering Facility: [facility] Address: [address] [place] [address] Result Comment: Test performed at [facility] in [place], [place]. Disregard [facility] reference range. [facility] Vitamin A reference range is: 0.30-1.20 mg/L. This test was developed and its performance characteristics determined by [employer]. It has not been cleared or approved by the US Food and Drug Administration. This test was performed in a CLIA certified laboratory and is intended for clinical purposes. Performed By: #### 2 923-1 #### [facility] CLIA [id number] [address] [place] [address] [place] Vit B12 SerPl-mCncon 024 Cobalamin (Vitamin B12) [Mass/Vol] 1062 pg/mL Normal 232-1245 [facility] Comment on above: Order Comment: Speci men Type: BLOOD SPECIMEN Ordering Facility: [facility] Address: [address] [place] [address] Performed By: #### 2 132-9, 2284-8, 2731-8 #### [facility] CLIA [id number] [address] [place] [address] [place] Zinc SerPl-mCncon 10-14-2023 Zinc [Mass/Vol] 77 ug/dL Normal 60-120 [facility] Comment on above: Order Comment: Speci men Type: BLOOD SPECIMEN Ordering Facility: [facility] Address: [address] [place] [address] Result Comment: This test was developed and its performance characteristics determined by [facility]'s [facility] Pathology and Laboratory Medicine [place] ([facility] It has not been cleared or approved by the FDA. [facility] is regulated under CLIA as qualified to perform high-complexity testing. This test is used for clinical purposes. It should not be regarded as investigational or for research. Performed By: #### B 1WB #### [facility] CLIA [id number] [address] [place] [address] [place] Angeline 09-30-2023 ANDRZEJN Telephone (AGGENS4) GARDENIA MUJICA ([id number]) 1965 F T Date Time Provider Department 09/30/23 JAYASHREE HERNANDEZ4 During your visit today, we recorded the following information about you: Mikey Carrion RN 09/30/2023 2:28 PM Signed Cardiac clearance letter sent/faxed to Aga Spears CNP. KYE Bills Shannon M, RN 09/30/2023 2:28 PM Signed Pulmonary Clearance letter sent/faxed to Lesly Chavis APRN.ANDRZEJ. KYE Bills Jennifer, LPN 10/05/2023 11:43 AM Signed Cardiac clearance letter scanned into chart Frederick Colvin APRN.ANDRZEJ 10/05/2023 12:04 PM Signed Cardiac clearance reviewed, low risk. Frederick Colvin APRN.Mikey Medel RN 10/28/2023 2:40 PM Signed 2nd Pulmonology clearance letter sent/faxed to Joanne Chavis NP. Mikey Carrion RN, BSN Bariatric Graduate Fellow Allergies As of Date: 09/30/2023 Noted Allergy [...] Date Reviewed: 09/30/2023 Reviewed by: Jennifer Salas APRN.PULMONARY FELLOW - Fully Assessed Reason for Visit: Medical Clearance [1982] Prescriptions as of 10/28/2023 - pantoprazole DR [...] Encounter Status:Closed by MIKEY CARRION on 09/30/23 [facility] Prothrombin Time w/INRon INR Coag (PPP) [Relative time] 2.5 {INR} Normal [facility] Comment on above: Performed By: #### L 300.9910 #### [facility] [address] [place], [place], [id number] PT Coag (PPP) [Time] 26.5 s High 11.7-14.9 [facility] Comment on above: Performed By: #### L 300.3900 #### [facility] [place], [address] CNCOon 08-15-2023 CNCO Letter Text Normal [facility] CNPNon 08-01-2023 CNPN Telephone (AGGENS4) GARDENIA MUJICA ([id number]) 1965 F CHT Date Time Provider Department 08/01/23 JENNIFER SALAS AGGENS4 During your visit today, we recorded [...] Encounter Status:Closed by SEBASTIAN FLORES on 08/01/23 [facility] NICOTINE AND METAB, URon URIN ANABASINE QUANT <5 Normal [facility] Comment on above: Order Comment: Speci men Type: URINE SPECIMEN Ordering Facility: [facility] Address: [address] [place] [address] Performed By: #### U NICOT #### [facility] CLIA [id number] [address] [place] [address] URIN COTININE QUANT <15 Normal [facility] Comment on above: Order Comment: Speci men Type: URINE SPECIMEN Ordering Facility: [facility] Address: [address] [place] [address] Performed By: #### U NICOT #### [facility] CLIA [id number] [address] [place] [address] URIN NICOTINE QUANT <15 Normal [facility] Comment on above: Order Comment: Speci men Type: URINE SPECIMEN Ordering Facility: [facility] Address: [address] [place] [address] Result Comment: INTE RPRETIVE INFORMATION: Nicotine and Metabolites, Urine, Quantitative Methodology: Quantitative Liquid Chromatography-Tandem Mass Spectrometry Positive cutoff: Nicotine 15 ng/mL Cotinine 15 ng/mL 6-BX-Engbdikc 50 ng/mL Anabasine 5 ng/mL For medical [...] developed and its performance characteristics determined by [employer]. It has not been cleared or approved by the US Food and Drug Administration. This test was performed in a CLIA certified laboratory and is intended for clinical purposes. Performed By: [facility] [address] [place] [address] Test Conductor: Brandon Dhillon MD, PhD CLIA Number: [id number] Performed By: #### U NICOT #### [facility] CLIA [id number] [address] [place] [address] URINE 3 [place] COTININE <50 Normal [facility] Comment on above: Order Comment: Speci men Type: URINE SPECIMEN Ordering Facility: [facility] Address: [address] [place] [address] Performed By: #### U NICOT #### [facility] CLIA [id number] [address] [place] [address] TOXICOLOGY SCREEN, ROUTINE U RINEon 07-29-2023 Amphetamines Confirm (U) [Mass/Vol] Negative Normal Negative [facility] Comment on above: Order Comment: Speci men Type: BLOOD SPECIMEN Ordering Facility: [facility] Address: [address] [place] [address] Result Comment: Cuto ff threshold at 1000 ng/mL. Performed By: #### B 1WB #### [facility] CLIA [id number] [address] [place] [address] [place] BARBITURATES, URINE Negative Normal Negative [facility] Comment on above: Order Comment: Speci men Type: BLOOD SPECIMEN Ordering Facility: [facility] Address: [address] [place] [address] Result Comment: Cuto ff threshold at 200 ng/mL. Performed By: #### B 1WB #### [facility] CLIA [id number] [address] [place] [address] [place] BENZODIAZEPINES, UR Negative Normal Negative [facility] Comment on above: Order Comment: Speci men Type: BLOOD SPECIMEN Ordering Facility: [facility] Address: [address] [place] [address] Result Comment: Cuto ff threshold at 200 ng/mL. Performed By: #### B 1WB #### [facility] CLIA [id number] [address] [place], [place] [address] [place] Cannabinoids Screen Ql (U) Negative Normal Negative [facility] Comment on above: Order Comment: Speci men Type: BLOOD SPECIMEN Ordering Facility: [facility] Address: [address] [place] [address] Result Comment: Cuto ff threshold at 50 ng/mL. Performed By: #### B 1WB #### [facility] CLIA [id number] [address] [place] [address] [place] Cocaine Ql (U) Negative Normal Negative [facility] Comment on above: Order Comment: Speci men Type: BLOOD SPECIMEN Ordering Facility: [facility] Address: [address] [place] [address] Result Comment: Cuto ff threshold at 300 ng/mL. Performed By: #### B 1WB #### [facility] CLIA [id number] [address] [place] [address] [place] Ethanol (U) [Mass/Vol] <11 Normal <11 [facility] Comment on above: Order Comment: Speci men Type: BLOOD SPECIMEN Ordering Facility: [facility] Address: [address] [place] [address] Performed By: #### B 1WB #### [facility] CLIA [id number] [address] [place] [address] [place] Opiates Screen Ql (U) Negative Normal Negative [facility] Comment on above: Order Comment: Speci men Type: BLOOD SPECIMEN Ordering Facility: [facility] Address: [address] [place] [address] Result Comment: Cuto ff threshold at 300 ng/mL. Performed By: #### B 1WB #### [facility] CLIA [id number] [address] [place] [address] [place] oxyCODONE cutoff Screen (U) [Mass/Vol] Negative Normal Negative [facility] Comment on above: Order Comment: Speci men Type: BLOOD SPECIMEN Ordering Facility: [facility] Address: [address] [place] [address] Result Comment: Cuto ff threshold at 100 ng/mL. Performed By: #### B 1WB #### [facility] CLIA [id number] [address] [place] [address] [place] Phencyclidine Ql (U) Negative Normal Negative [facility] Comment on above: Order Comment: Speci men Type: BLOOD SPECIMEN Ordering Facility: [facility] Address: [address] [place] [address] Result Comment: Cuto ff threshold at 25 ng/mL. Performed By: #### B 1WB #### [facility] CLIA [id number] [address] [place] [address] [place] TSH SerPl-aCncon 07-29-2023 TSH Qn 2.540 m[IU]/L Normal 0.270-4.20 0 [facility] Comment on above: Order Comment: Speci men Type: BLOOD SPECIMEN Ordering Facility: [facility] Address: [address] [place] [address] Performed By: #### 3 016-3 #### [facility] CLIA [id number] [address] [place] [address] [place] CNOVon 07-28-2023 CNOV Office Visit (WARREN 4) GARDENIA MUJICA ([id number]) 1965 F T Date Time Provider Department 07/28/23 8:00 AM JAYASHREE HERNANDEZ During your visit today, we [...] our system as it was completed in [place]. Today she reports that despite the negative [...] a GES in the past at the [facility] [place]. She does not recall the results, but she believes it was slow and she was diagnosed with gastroparesis Social: denies use of tobacco, etoh, or marijuana. 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 Curiel LIGATE FALLOPIAN TUBE 1991 [facility] PAST SURGICAL HISTORY OF 2004 ORI femur, [facility] TOTAL ABDOMINAL HYSTERECT W/WO RMVL TUBE OVARY 2004 Hysterectomy, [facility] -- ovaries intact, Dr. Luz Garcia in [place] FAMILY HISTORY: FAMILY HISTORY Problem Relation Age of Onset Coronary Artery Disease Mother CAD, no VA; first diagnosed mid-50's? Coronary Artery Disease Maternal Grandmother VA, CAD Coronary Artery Disease Maternal Grandfather VA, CAD None Father UNKNOWN --- Colon Cancer Other none Diabetes Other none Breast Cancer Other none other (ADD [Other]) Son SOCIAL HISTORY: Social History Tobacco Use Smoking status: Never Smokeless tobacco: Never Vaping Use Vaping Use: Never used Substance Use Topics Alcohol use: No Drug use: No MEDICATIONS: Current Outpatient Medications Medication Sig bismuth subsal (more content not included)... Normal [facility] CNPNon 07-28-2023 CNPN Telephone (AGGENS4) GARDENIA MUJICA ([id number]) 1965 F CHT Date Time Provider Department 07/28/23 JAYASHREE HERNANDEZ4 During your visit today, we recorded the following information about you: Rg-Lakeisha Ivan 07/28/2023 8:59 AM Addendum Set up for [facility] SESAR pearson, [place] of ABD ([id number]) and other [facility] appts [facility] New - Mary / [place] - [place] Maynard - [place] #2 / Mary / [place] - Donald Allergies As of Date: [...] Encounter Status:Closed by RG-LAKEISHA IVAN on 07/28/23 [facility] CNPN Telephone (AGGENS4) GARDENIA MUJICA ([id number]) 1965 F [facility] Date Time Provider Department 07/28/23 JAYASHREE HERNANDEZ AGGENS4 During your visit today, we recorded the following information about you: Musa Dey 07/28/2023 3:10 PM Signed Patient called in asking if Pulmonology clearance is required for their surgery. [facility] and was advised that they could not get in to see a boat repairer until January - because they have never seen by a boat repairer. Patient must go through [facility] for all appointments and clearances. Patient was able to get an appointment with their eyeglass inspector because they were already established patient. Patient [...] Reason for Visit: Appointment [186] Patient Question [0766] Prescriptions as of 07/28/2023 - bismuth subsalicylate [...] Encounter Status:Closed by MUSA DEY on 07/28/23 [facility] Angeline 06-10-2023 CNPN Telephone (AGGENS4) GARDENIA MUJICA ([id number]) 1965 F [facility] Date Time Provider Department 06/10/23 JAYASHREE HERNANDEZ AGGENS4 During your visit today, we recorded the following information about you: Yoseph QasimSebastian 06/10/2023 10:54 AM Signed Called patient to [...] Reason for Visit: Patient Update [1234] Cmt: [facility] benefits information Prescriptions as of 06/10/2023 - [...] Encounter Status:Closed by SEBASTIAN FLORES on 06/10/23 [facility] CNOVon 05-27-2023 CNOV Office Visit (AGGENS 4) GARDENIA MUJICA ([id number]) 1965 F CHT Date Time Provider Department 05/27/23 9:30 AM JAYASHREE HERNANDEZ AGGENS4 During your visit [...] a GES in the past at the [facility] in [place]. She does not recall the results, but she believes it was slow and she was diagnosed with gastroparesis Social: denies use of tobacco, etoh, or marijuana. 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 Curiel LIGATE FALLOPIAN TUBE 1991 [facility] PAST SURGICAL HISTORY OF 2004 [facility] femur, [facility] TOTAL ABDOMINAL HYSTERECT W/WO RMVL TUBE OVARY 2004 Hysterectomy, [facility] -- ovaries intact, Dr. Luz Garcia in [place] FAMILY HISTORY: FAMILY HISTORY Problem Relation Age of Onset Coronary Artery Disease Mother CAD, no VA; first diagnosed mid-50's? Coronary Artery Disease Maternal Grandmother VA, CAD Coronary Artery Disease Maternal Grandfather VA, CAD None Father UNKNOWN --- Colon Cancer [...] mouth before (more content not included)... [facility] CNPN Telephone (AGGENS4) GARDENIA MUJICA ([id number]) 1965 F T Date Time Provider Department 05/27/23 JAYASHREE HERNANDEZ [...] Encounter Status:Closed by LISA COMBS on 05/27/23 [facility] ANES POSTPROC EVALon 024 ANES POSTPROC EVAL HNO ID: [id number] Author: TYSON ELLISON MD, PhD Service: Anesthesiology Author Type: Anesthesiologist Type: Anesthesia Postprocedure Evaluation Filed: 05/13/2023 12:41 Note Text: POST ANESTHESIA EVALUATION NOTE : 1965 Procedure Summary Date: 05/13/23 Room / Location: [facility] Anesthesia Start: 808 Anesthesia Stop: 831 [...] May 13, 2023 TIME: 12:40 PM CSN: [id number] [facility] ANES PRE-OPon 05-13-2023 ANES PRE-OP HNO ID: [id number] Author: TYSON ELLISON MD, PhD Service: Anesthesiology Author Type: Anesthesiologist Type: Anesthesia Preprocedure Evaluation Filed: 05/13/2023 08:02 Note Text: ANESTHESIOLOGY DAY OF SURGERY NOTE : 1965 Procedure Information Date/Time: 05/13/23 0800 Scheduled providers: Jayashree Hernandez MD Procedure: EGD - THERAPEUTIC, EUS, OR TUBE INTERVENTIONS Location: [place] [facility] Estimated body mass index is 31.76 kg/m? as calculated from the following: Height as of this encounter: 162.6 cm (5' 4). Weight as of this encounter: 83.9 kg [...] adequate. Short neck: no. Thick neck: no Microretrognathia/Micronagth ia/Recessed Chin: No DENTAL Dental findings: teeth intact. II - ANESTHESIA PLAN ASA Score: 2 Anesthetic Plan: MAC NPO Status: adequate Beta Taisha Monitoring Plan Monitoring plan: standard ASA. Post Procedure Analgesic Plan Postoperative analgesic plan: multimodal analgesia. Informed Consent Anesthetic risks, benefits, alternatives, personnel and consent discussed: yes. Patient / Responsible Republican agrees to proceed: yes Patient / Surrogate agrees to blood products: Yes Potential Anesthesia issues that may suggest increased risk of complications or contraindication to planned procedure: none. Vitals Value Taken Time BP 143/83 05/13/23 0733 Pulse 70 05/13/23 07 Resp 15 05/13/23732 Temp 36.5 ?C (97.7 ?F) 05/13/23 07 SpO2 97 % 05/13/23 07 Outpatient Medications as of 05/13/2023 Medication Sig [...] May 13, 2023 TIME: 8:02 AM CSN: [id number] [facility] HISTORY PHYSICALon HISTORY PHYSICAL HNO ID: [id number] Author: GEORGINA HOLLAND APRN.ANDRZEJ Service: Anesthesiology Author Type: Nurse Practitioner Type: H&P Filed: 05/13/2023 08:02 Note Text: HISTORY AND PHYSICAL EXAMINATION SERVICE DATE: 05/13/2023 SERVICE TIME: 7:09 AM PRIMARY CARE PHYSICIAN: ISABELLE ALVES REASON FOR VISIT: Gardenia Mujica is a 57 year old [...] 57 year old female who presents to [facility] for the above procedure. She reports [...] Date ABDOMINOPLASTY LIPOSUCTION, TUMMY TUCK CHOLECYSTECTOMY 02/15/1992 [facility] TRANSORAL BIOPSY SINGLE/MULTIPLE 10/20/2010 [facility] RSTCV W/O BYP OTH/THN [place]-BAND[place] GSTP 02/14/1993 [facility] HEART VALVE REPLACEMENT 05/15/2009 mechanical valve, Aortic root, [facility] in [place] Dr. Curiel LIGATE FALLOPIAN TUBE 1991 [facility] PAST SURGICAL HISTORY OF 2004 ORIF femur, [facility] TOTAL ABDOMINAL HYSTERECT W/WO RMVL TUBE OVARY 2005 Hysterectomy, [facility] -- ovaries intact, Dr. Luz Garcia in [place] FAMILY HISTORY Problem Relation Age of Onset Coronary Artery Disease Mother CAD, no VA; first diagnosed mid-50's? Coronary Artery Disease Maternal Grandmother VA, CAD Coronary Artery Disease Maternal Grandfather VA, CAD None Father UNKNOWN --- Colon Cancer [...] Pain Assessmen (more content not included)... Normal [facility] SURGICAL PATHOLOGYon 024 CASE REPORT [facility] Comment on above: Order Comment: Speci men Type: TISSUE SPECIMENOrdering Facility: [facility] Address: [address] [place] [address] Result Comment: Surg ica Pathology Report Case: [id number] Authorizing Provider: Jayashree Hernandez MD Collected: 05/13/2023 08:20 AM Ordering Location: [facility] Received: 05/13/2023 02:58 PM Pathologist: Tacho Yen MD Specimens: A) - STOMACH BIOPSY, gastric antrum biopsy B) - ESOPHAGOGASTRIC JUNCTION BIOPSY Performed By: #### S ####[facility] [id number] [address] CLINICAL HISTORY Functional Dyspepsia Normal [facility] Comment on above: Order Comment: Speci men Type: TISSUE SPECIMENOrdering Facility: [facility] Address: [address] [place] [address] Performed By: #### S ####[facility] [id number] [address] DIAGNOSIS COMMENT [facility] Comment on above: Order Comment: Speci men Type: TISSUE SPECIMENOrdering Facility: [facility] Address: [address] [place] [address] Result Comment: The staining structures in both biopsies are suspicious but inconclusive for Helicobacter pylori. Clinical correlation and confirmational studies may be indicated. This case was reviewed by Dr. Dorita Elkins who agrees with this assessment. Laboratory Developed Test (LDT) Disclaimer: Performance characteristics of immunohistochemical, immunofluorescent and chromogenic in-situ hybridization tests have been determined by the performing laboratory within [facility]???s [facility] [place] ([facility], [facility], [facility], [facility], [facility], [facility], or [facility]) in a manner consistent with CLIA requirements. One or more of these tests have not been cleared or approved by the FDA. [facility] is regulated under CLIA as qualified to perform high-complexity testing. These tests are used for clinical purposes. They should not be regarded as investigational or for research. Positive and negative controls stain appropriately. Performed By: #### S ####[facility] LABORATORYIA [id number] [address] FINAL DIAGNOSIS [facility] Comment on above: Order Comment: Speci men Type: TISSUE SPECIMENOrdering Facility: [facility] Address: [address] [place] [address] Result Comment: Aurelia kaplan, antrum, biopsy: - Mild chronic gastritis. Immunohistochemical stain for Helicobacter pylori reveals rare staining structures suspicious for organisms. See comment. B. Gastroesophageal junction, biopsy: - Gastric type glandular mucosa with chronic gastritis. Immunohistochemical stain for Helicobacter pylori reveals staining structures suspicious for organisms. See comment. Performed By: #### S ####[facility] LABORATORYCLIA [id number] [address] OF [place] FINAL PERFORMING LAB Normal [facility] Comment on above: Order Comment: Speci men Type: TISSUE SPECIMENOrdering Facility: [facility] Address: [address] [place] [address] Result Comment: Diag nostic interpretation performed at [facility], [address] [place] [address] CLIA# [id number] Test Conductor: Tacho Yen M.D. Performed By: #### S ####[facility] LABORATORYCLIA [id number] [address] GROSS DESCRIPTION [facility] Comment on above: Order Comment: Speci men Type: TISSUE SPECIMENOrdering Facility: [facility] Address: [address] [place] [address] Result Comment: A. S TOMACH BIOPSY Received [...] entirely in B1. Gross examination performed at [facility], [address] [place] [address] CLIA#[id number] [facility] May 13, 2023 3:27 PM Performed By: #### S ####[facility] LABORATORYCLIA [id number] [address] [place] Upper GI endoscopyon 024 Upper GI endoscopy [facility] Gastrointestinal Endoscopy Patient Name: Gardenia Mujica Procedure Date: 05/13/2023 8:04 AM Date of : 1965 Admit Type: Outpatient Room: [place] [address] Gender: Female Note Status: Finalized Attending MD: Jayashree Hernandez MD, [id number] Procedure: Upper GI endoscopy Indications: Functional Dyspepsia [...] Loss: Estimated blood loss: none. Impression: - [place]-colored mucosa suspicious for short-segment Flaherty's esophagus. Biopsied. [...] of therapy. Procedure Code(s): --- Professional --- 48507, Esophagogastroduodenoscopy, flexible, transoral; with biopsy, single or multiple --- Technical --- 05205, 59, Esophagogastroduodenoscopy, flexible, transoral; with biopsy, single or multiple 41042, TC, Esophagus, gastroesophageal reflux test; with mucosal attached telemetry pH electrode placement, recording, analysis and interpretation Diagnosis Code(s): --- Professional --- K22.89, Other specified disease of esophagus Z98.84, Bariatric surgery status K30, Functional dyspepsia CPT copyright 2020 [employer]. All rights reserved. The codes documented in this report are preliminary and upon brand recorder review may be revised to meet current compliance requirements. Attending Participation: I personally performed the entire proced (more content not included)... [facility] Basophil percentageon 2023 Hemoglobin (Bld) [Mass/Vol] 12.2 g/dL 12.0-15.0 [facility] WBC (Bld) [#/Vol] 6.8 10*3/uL 4.4-11.0 [facility] Determination of erythrocyte mean corpuscular volume (MCV)on 05-10-2023 MCV (RBC) [Entitic vol] 83.9 fL 81-99 [facility] Erythrocyte distribution wid th ratioon 05-10-2023 Erythrocyte distribution width (RBC) [Ratio] 13.4 % 11.6-14.6 [facility] Erythrocyte distribution wid th standard deviationon 05-10-2023 Erythrocyte distribution width (RBC) [Entitic vol] 41.3 fL 35.1-43.9 [facility] Hematocrit Auto (Bld) [Volum e fraction]on 05-10-2023 Hematocrit (Bld) [Volume fraction] 36.5 % 37-47 [facility] Laboratory - Coagulationon 0 05-10-2023 INR Coag (Bld) [Relative time] 2.4 {INR} [facility] PT Coag (PPP) [Time] 25.9 s 11.7-14.9 [facility] Laboratory - Hematology and Cell countson 05-10-2023 MCH (RBC) [Entitic mass] 28.0 pg 27.0-32.0 [facility] MCHC (RBC) [Mass/Vol] 33.4 g/dL 32-[address] [facility] Platelet mean volume (Bld) [Entitic vol] 9.9 fL 6.2-12.0 [facility] Platelets (Bld) [#/Vol] 316 10*3/uL 150-450 [facility] RBC Auto (Bld) [#/Vol]on RBC (Bld) [#/Vol] 4.35 10*6/uL 4.2-5.4 [facility] ALLIED HEALTHon 04-22-2023 ALLIED [facility]ALTH HNO ID: [id number] Author: MADY PERRY RT(R) Service: Radiology Author [...] PATIENT PRESENTS WITH AN IMPLANTABLE OR ATTACHED SALES RECEPTIONIST: No RADIOLOGY DEPARTMENT: General X-ray: Exam(s) Completed: GI/ Procedure(s): Upper GI with barium contrast PERIPHERAL IV DATA: Not applicable SIGNED BY: RT Park(R) April 22, 2023 8:29 AM [facility] RF Gastrointestinal tract up per Views W barium contrast [place] 04-22-2023 [facility] XR UPPER GI SINGLE CONTRASTo n 04-22-2023 [...] upper GI study was performed by a resident assistant cna. 1 minute and 54 seconds of fluoroscopy time was utilized. 96 images submitted for interpretation. FINDINGS: No obvious esophageal abnormality. No ulceration or stricture. Postoperative deformity of the stomach. There is no obvious mass or ulceration. 3 cm hiatal hernia. Normal gastric evacuation of contrast into a normal-appearing proximal small bowel. IMPRESSION: Postoperative changes involving the stomach. 3 cm hiatal hernia. Sql Programmer: HAR[facility]H HOSPITALShaun Transcribe Date/Time: Apr 22 2023 12:04P Dictated by : LANE DEWITT MD This examination was interpreted and the report reviewed and electronically signed by: LANE DEWITT MD on Apr 22 2023 12:09PM EST [id number] [facility] CNOVon 03-11-2023 CNOV Office Visit (AGGENS 4) GARDENIA MUJICA ([id number]) 1965 F T Date Time Provider Department 03/11/23 9:00 AM JAYASHREE HERNANDEZ4 During your visit today, we recorded the following information about you: Pulse Blood pressure Weight Height 76/minute 137/88 86.9 kg 1.626 m Jayashree Hernandez MD 03/11/2023 9:55 AM Signed SURGICAL SERVICES HISTORY AND PHYSICAL EXAMINATION SERVICE DATE: 03/11/2023 SERVICE TIME: 9:26 AM PRIMARY CARE PHYSICIAN: [facility] SUBJECTIVE CHIEF COMPLAINT: nausea HISTORY OF PRESENT ILLNESS: Ms. Mujica is a 57 year old female with a PMH of obesity (BMI 32.89), [employer] (getting fitted for CPAP), aortic regurgitation, PTSD (severe), and GERD who presents for surgical consultation. Surgical consultation was requested by the patient's referring physician, [facility] in [place]. A copy of this consultation note will [...] a GES in the past at the [facility] in [place]. She does not recall the results, but [...] etoh, or marijuana. 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 Curiel LIGATE FALLOPIAN TUBE 1991 [place] PAST SURGICAL HISTORY OF 2004 ORIF femur, [facility] TOTAL ABDOMINAL HYSTERECT W/WO RMVL TUBE OVARY 2004 Hysterectomy, LUZ -- ovaries intact, Dr. Luz Garcia in [place] FAMILY HISTORY: FAMILY HISTORY Problem Relation Age of Onset Coronary Artery Disease Mother CAD, no VA; first diagnosed mid-50's? Coronary Artery Disease Maternal Grandmother VA, CAD Coronary Artery Disease Maternal Grandfather VA, CAD None Father UNKNOWN --- Colon Cancer [...] cough. Nega (more content not included)... [facility] Telephone (AGGENS4) GARDENIA MUJICA ([id number]) 1965 F T Date Time Provider Department 03/11/23 JAYASHREE HERNANDEZ AGGENS4 During your visit today, [...] Assessed Reason for Visit: Appointment [186] Cmt: EGD/[place] Prescriptions as of 03/11/2023 - lisinopril (ZESTRIL) [...] Status:Closed by LISA COMBS on 03/11/23 [facility] .Auto Diffon 03-04-2023 Basophil, Absolute 0.0 10 3/mcL Normal 0.0-0.2 [facility] ([place]) Comment on above: Performed By: #### A WARREN, PRO, CBC, ADIFF #### [address] [address] Basophils/100 WBC (Bld) 0.5 % Normal 0.0-2.5 [facility] ([place]) Comment on above: Performed By: #### A WARREN, PRO, CBC, ADIFF #### [address] [address] Eosinophil, Absolute 0.5 10 3/mcL High 0.0-0.4 [facility] ([place]) Comment on above: Performed By: #### A WARREN, PRO, CBC, ADIFF #### [address] [address] Eosinophils/100 WBC (Bld) 6.8 % Normal 0.0-7.0 [facility] ([place]) Comment on above: Performed By: #### A WARREN, PRO, CBC, ADIFF #### [address] [address] Lymphocyte, Absolute 1.6 10 3/mcL Normal 0.8-3.9 [facility] ([place]) Comment on above: Performed By: #### A WARREN, PRO, CBC, ADIFF #### [address] [address] Lymphocytes/100 WBC (Bld) 24.0 % Normal 10.0-50.0 [facility] ([place]) Comment on above: Performed By: #### A WARREN, PRO, CBC, ADIFF #### [address] [address] Monocyte, Absolute 0.6 10 3/mcL Normal 0.2-1.0 [facility] ([place]) Comment on above: Performed By: #### A WARREN, PRO, CBC, ADIFF #### [address] [address] Monocytes/100 WBC (Bld) 8.3 % Normal 1.7-13.0 [facility] ([place] Comment on above: Performed By: #### A WARREN, PRO, CBC, ADIFF #### [address] [address] Neutrophils/100 WBC (Bld) 60.4 % Normal 37.0-80.0 [facility] ([place] Comment on above: Performed By: #### A WARREN, PRO, CBC, ADIFF #### [address] [address] .NEUABSon 03-04-2023 Neutrophil, Absolute 4.0 10 3/mcL Normal 2.9-6.2 [facility] ([place]) Comment on above: Performed By: #### A WARREN, PRO, CBC, ADIFF #### [address] [address] CBCon 03-04-2023 Erythrocyte distribution width (RBC) [Ratio] 14.5 % Normal 11.5-14.5 [facility] ([place]) Comment on above: Performed By: #### A WARREN, PRO, CBC, ADIFF #### [place] [address] Hematocrit (Bld) [Volume fraction] 37.9 % Normal 37.0-47.0 [facility] ([place]) Comment on above: Performed By: #### A WARREN, PRO, CBC, ADIFF #### [place] [address] Hgb 13.1 G/dL Normal 12.0-16.0 [facility] ([place] Comment on above: Performed By: #### A WARREN, PRO, CBC, ADIFF #### [place] [address] MCH (RBC) [Entitic mass] 29.4 pg Normal 27.0-31.2 [facility] ([place] Comment on above: Performed By: #### A WARREN, PRO, CBC, ADIFF #### [place] [address] MCHC 34.6 G/dL Normal 33.0-37.0 [facility] ([place] Comment on above: Performed By: #### A WARREN, PRO, CBC, ADIFF #### [place] [address] MCV (RBC) [Entitic vol] 84.9 fL Normal 80.0-94.0 [facility] ([place]) Comment on above: Performed By: #### A WARREN, PRO, CBC, ADIFF #### [address] [address] Platelet 266 10 3/mcL Normal 130-400 [facility] ([place]) Comment on above: Performed By: #### A WARREN, PRO, CBC, ADIFF #### [address] [address] Platelet mean volume (Bld) [Entitic vol] 7.8 fL Normal 7.4-10.4 [facility] ([place]) Comment on above: Performed By: #### A WARREN, PRO, CBC, ADIFF #### [address] [address] RBC 4.46 10 6/mcL Normal 4.20-5.40 [facility] ([place] Comment on above: Performed By: #### A WARREN, PRO, CBC, ADIFF #### [address] [address] WBC 6.7 10 3/mcL Normal 4.6-10.8 [facility] ([place] Comment on above: Performed By: #### A WARREN, PRO, CBC, ADIFF #### [address] [address] PROon 03-04-2023 PT Coag (PPP) [Time] 28.0 s High 9.0-14.2 [facility] ([place]) Comment on above: Performed By: #### A WARREN, PRO, CBC, ADIFF #### [address] [address] PT International Ratio 2.4 Normal [facility] ([place]) Comment on above: Result Comment: The [employer] (CHEST, 1992, 102:312S-25S) recommended therapeutic range for oral anticoagulant therapy is: LOW RISK: Prophylaxis of venous thrombosis INR: 2.0-3.0 Treatment of pulmonary embolism 2.0-3.0 Prevention of systemic embolism 2.0-3.0 HIGH RISK: Mechanical prosthetic valves 2.5-3.5 Performed By: #### A WARREN, PRO, CBC, ADIFF #### [address] [address] FEon 02-25-2023 Iron [Mass/Vol] 85 ug/dL Normal 50-170 [facility] ([place]) Comment on above: Performed By: #### A WARREN, PRO, CBC, ADIFF #### [address] [address] Burak 02-25-2023 Ferritin [Mass/Vol] 23.0 ng/mL Normal 8.0-252.0 [facility] ([place]) Comment on above: Performed By: #### A WARREN, PRO, CBC, ADIFF #### [address] [address] HHon 02-25-2023 Hematocrit (Bld) [Volume fraction] 34.9 % Low 37.0-47.0 [facility] ([place] Comment on above: Performed By: #### A WARREN, PRO, CBC, ADIFF #### [address] [address] Hgb 12.2 G/dL Normal 12.0-16.0 [facility] ([place] Comment on above: Performed By: #### A WARREN, PRO, CBC, ADIFF #### [address] [address] LABORATORYOrdered By: SYSTEM SYSTEM on 02-25-2023 Ferritin [...] Basophil, Absolute 0.0 10 3/mcL Normal 0.0-0.2 [facility] ([place]) Comment on above: Performed By: #### A WARREN, PRO, CBC, ADIFF #### [address] [address] Basophils/100 WBC (Bld) 0.4 % Normal 0.0-2.5 [facility] ([place] Comment on above: Performed By: #### A WARREN, PRO, CBC, ADIFF #### [address] [address] Eosinophil, Absolute 0.4 10 3/mcL Normal 0.0-0.4 [facility] ([place]) Comment on above: Performed By: #### A WARREN, PRO, CBC, ADIFF #### [address] [address] Eosinophils/100 WBC (Bld) 6.5 % Normal 0.0-7.0 [facility] ([place] Comment on above: Performed By: #### A WARREN, PRO, CBC, ADIFF #### [address] [address] Lymphocyte, Absolute 1.2 10 3/mcL Normal 0.8-3.9 [facility] ([place] Comment on above: Performed By: #### A WARREN, PRO, CBC, ADIFF #### [address] [address] Lymphocytes/100 WBC (Bld) 17.9 % Normal 10.0-50.0 [facility] ([place] Comment on above: Performed By: #### A WARREN, PRO, CBC, ADIFF #### [address] [address] Monocyte, Absolute 0.6 10 3/mcL Normal 0.2-1.0 [facility] ([place]) Comment on above: Performed By: #### A WARREN, PRO, CBC, ADIFF #### [address] [address] Monocytes/100 WBC (Bld) 8.7 % Normal 1.7-13.0 [facility] ([place] Comment on above: Performed By: #### A WARREN, PRO, CBC, ADIFF #### [address] [address] Neutrophils/100 WBC (Bld) 66.5 % Normal 37.0-80.0 [facility] ([place] Comment on above: Performed By: #### A WARREN, PRO, CBC, ADIFF #### [address] [address] .GFRon 12-07-2022 GFR 71 ml/min/1.73sqm Normal [facility] ([place]) Comment on above: Result Comment: GFR Population [...] #### A WARREN, PRO, CBC, ADIFF #### [address] [address] GFR Non- 58 ml/min/1.73sqm Normal [facility] ([place]) Comment on above: Result Comment: GFR Population [...] #### A WARREN, PRO, CBC, ADIFF #### [address] [address] .MDWon 12-07-2022 Monocyte Distribution Width 19.40 Normal 0.00-20.00 [facility] ([place]) Comment on above: Result Comment: For ED adult patients suspected of sepsis, MDW<=20.0 does not rule out sepsis or risk of sepsis Performed By: #### A WARREN, PRO, CBC, ADIFF #### [place] [address] .NEUABSon 12-07-2022 Neutrophil, Absolute 4.5 10 3/mcL Normal 2.9-6.2 [facility] ([place]) Comment on above: Performed By: #### A WARREN, PRO, CBC, ADIFF #### [place] [address] .Urinalysis Microscopic (AO) on 12-07-2022 UA Bacteria 1+ /hpf Abnormal [facility] ([place] Comment on above: Performed By: #### A WARREN, PRO, CBC, ADIFF #### [place] [address] UA Mucous 2+ /hpf Normal [facility] ([place] Comment on above: Performed By: #### A WARREN, PRO, CBC, ADIFF #### [place] [address] UA RBC 5-10 Abnormal None Seen [facility] ([place] Comment on above: Performed By: #### A WARREN, PRO, CBC, ADIFF #### [place] [address] UA Squam Epithelial 0-5 Abnormal None Seen [facility] ([place] Comment on above: Performed By: #### A WARREN, PRO, CBC, ADIFF #### [place] [address] UA WBC 0-5 Abnormal None Seen [facility] ([place] Comment on above: Performed By: #### A WARREN, PRO, CBC, ADIFF #### [place] [address] CBCon 12-07-2022 Erythrocyte distribution width (RBC) [Ratio] 17.3 % High 11.5-14.5 [facility] ([place]) Comment on above: Performed By: #### A WARREN, PRO, CBC, ADIFF #### [address] [address] Hematocrit (Bld) [Volume fraction] 35.5 % Low 37.0-47.0 [facility] ([place] Comment on above: Performed By: #### A WARREN, PRO, CBC, ADIFF #### [address] [address] Hgb 12.1 G/dL Normal 12.0-16.0 [facility] ([place] Comment on above: Performed By: #### A WARREN, PRO, CBC, ADIFF #### [address] [address] MCH (RBC) [Entitic mass] 28.2 pg Normal 27.0-31.2 [facility] ([place] Comment on above: Performed By: #### A WARREN, PRO, CBC, ADIFF #### [address] [address] MCHC 34.1 G/dL Normal 33.0-37.0 [facility] ([place] Comment on above: Performed By: #### A WARREN, PRO, CBC, ADIFF #### [address] [address] MCV (RBC) [Entitic vol] 82.5 fL Normal 80.0-94.0 [facility] ([place] Comment on above: Performed By: #### A WARREN, PRO, CBC, ADIFF #### [address] [address] Platelet 259 10 3/mcL Normal 130-400 [facility] ([place] Comment on above: Performed By: #### A WARREN, PRO, CBC, ADIFF #### [address] [address] Platelet mean volume (Bld) [Entitic vol] 7.3 fL Low 7.4-10.4 [facility] ([place] Comment on above: Performed By: #### A WARREN, PRO, CBC, ADIFF #### [address] [address] RBC 4.31 10 6/mcL Normal 4.20-5.40 [facility] ([place] Comment on above: Performed By: #### A WARREN, PRO, CBC, ADIFF #### [address] [address] WBC 6.8 10 3/mcL Normal 4.6-10.8 [facility] ([place] Comment on above: Performed By: #### A WARREN, PRO, CBC, ADIFF #### [address] [address] CMPon 12-07-2022 Albumin Level 3.6 G/dL Normal 3.5-5.0 [facility] ([place]) Comment on above: Performed By: #### A WARREN, PRO, CBC, ADIFF #### [address] [address] Albumin/Globulin [Mass ratio] 1.1 {ratio} Normal 1.1-2.5 [facility] ([place]) Comment on above: Performed By: #### A WARREN, PRO, CBC, ADIFF #### [address] [address] ALP [Catalytic activity/Vol] 157 U/L High 40-135 [facility] ([place] Comment on above: Performed By: #### A WARREN, PRO, CBC, ADIFF #### [address] [address] ALT [Catalytic activity/Vol] 67 U/L High 14-59 [facility] ([place] Comment on above: Performed By: #### A WARREN, PRO, CBC, ADIFF #### [address] [address] AST [Catalytic activity/Vol] 52 U/L High 10-40 [facility] ([place] Comment on above: Performed By: #### A WARREN, PRO, CBC, ADIFF #### [address] [address] Bili Total 0.4 mg/dL Normal 0.2-1.0 [facility] ([place]) Comment on above: Result Comment: Use of this assay is not recommended for patients undergoing treatment with eltrombopag due to the potential for falsely elevated results. Performed By: #### A WARREN, PRO, CBC, ADIFF #### [address] [address] BUN/Creatinine Ratio 13 ratio Normal 7-27 [facility] ([place]) Comment on above: Performed By: #### A WARREN, PRO, CBC, ADIFF #### [address] [address] Calcium [Mass/Vol] 9.3 mg/dL Normal 8.4-10.2 [facility] ([place]) Comment on above: Performed By: #### A WARREN, PRO, CBC, ADIFF #### [place] [id number] Chloride [Moles/Vol] 101 mmol/L Normal 98-107 [facility] ([place]) Comment on above: Performed By: #### A WARREN, PRO, CBC, ADIFF #### [place] [address] CO2 [Moles/Vol] 34 mmol/L High 22-29 [facility] ([place]) Comment on above: Performed By: #### A WARREN, PRO, CBC, ADIFF #### [place] [id number] Creatinine [Mass/Vol] 0.98 mg/dL Normal 0.55-1.02 [facility] ([place]) Comment on above: Performed By: #### A WARREN, PRO, CBC, ADIFF #### [address] [address] Electrolyte Balance 4.0 mEq/L Normal 4.0-15.0 [facility] ([place]) Comment on above: Performed By: #### A WARREN, PRO, CBC, ADIFF #### [address] [address] Globulin 3.3 G/dL Normal [facility] ([place]) Comment on above: Performed By: #### A WARREN, PRO, CBC, ADIFF #### [place] [id number] Glucose [Mass/Vol] 110 mg/dL High 70-105 [facility] ([place]) Comment on above: Performed By: #### A WARREN, PRO, CBC, ADIFF #### [address] [address] Potassium [Moles/Vol] 3.6 mmol/L Normal 3.5-5.1 [facility] ([place]) Comment on above: Performed By: #### A WARREN, PRO, CBC, ADIFF #### [address] [address] Sodium [Moles/Vol] 139 mmol/L Normal 136-145 [facility] ([place]) Comment on above: Performed By: #### A WARREN, PRO, CBC, ADIFF #### [address] [address] Total Protein 6.9 G/dL Normal 6.4-8.2 [facility] ([place] Comment on above: Performed By: #### A WARREN, PRO, CBC, ADIFF #### [address] [address] Urea nitrogen [Mass/Vol] 13 mg/dL Normal 7-18 [facility] ([place] Comment on above: Performed By: #### A WARREN, PRO, CBC, ADIFF #### [address] [address] [address] ABD/PELVIS W/ IV CONTRAST ONLYon 12-07-2022 [...] Date: 12/07/2022 10:52:41 AM Ordering Provider: SHARON Shepherd [facility] ([place]) LABORATORYOrdered By: Mckenna Kerr on 12-07-2022 INR Coag (PPP) [Relative time] 3.0 {INR} Invalid Interpretation Code AO [facility] SS Comment on above: Interpretive Data: Deny zamarripa [employer] (CHEST, 1992, 102:312S-25S) [...] - 18 mg/dL AO ADM SS Urea nitrogen/Creatinine [Mass ratio] 13 ratio Invalid Interpretation Code [...] 12-07-2022 Lipase Level 28 U/L Normal 16-77 [facility] ([place]) Comment on above: Performed By: #### A WARREN, PRO, CBC, ADIFF #### [address] [address] PROon 12-07-2022 PT Coag (PPP) [Time] 34.7 s High 9.0-14.2 [facility] ([place]) Comment on above: Performed By: #### A WARREN, PRO, CBC, ADIFF #### [address] [address] PT International Ratio 3.0 Normal [facility] ([place]) Comment on above: Result Comment: [employer] (CHEST, 1992, 102:312S-25S) recommended therapeutic range for oral anticoagulant therapy is: LOW RISK: Prophylaxis of venous thrombosis INR: 2.0-3.0 Treatment of pulmonary embolism 2.0-3.0 Prevention of systemic embolism 2.0-3.0 HIGH RISK: Mechanical prosthetic valves 2.5-3.5 Performed By: #### A WARREN, PRO, CBC, ADIFF #### [address] [address] UAon 12-07-2022 Color (U) Yellow Normal [facility] ([place]) Comment on above: Performed By: #### A WARREN, PRO, CBC, ADIFF #### [address] [address] Glucose (U) [Mass/Vol] Negative Normal Negative [facility] ([place] Comment on above: Performed By: #### A WARREN, PRO, CBC, ADIFF #### [address] [address] Ketones Ql (U) Negative Normal Negative [facility] ([place]) Comment on above: Performed By: #### A WARREN, PRO, CBC, ADIFF #### [address] [address] UA Appear Clear Normal Clear [facility] ([place]) Comment on above: Performed By: #### A WARREN, PRO, CBC, ADIFF #### [address] [address] UA Blood Moderate Abnormal Negative [facility] ([place]) Comment on above: Performed By: #### A WARREN, PRO, CBC, ADIFF #### [address] [address] UA Leuk Est Negative Normal Negative [facility] ([place]) Comment on above: Performed By: #### A WARREN, PRO, CBC, ADIFF #### [address] [address] UA Nitrite Negative Normal Negative [facility] ([place]) Comment on above: Performed By: #### A WARREN, PRO, CBC, ADIFF #### [address] [address] UA pH 6.0 Normal 5.0 - 8.0 [facility] ([place]) Comment on above: Performed By: #### A WARREN, PRO, CBC, ADIFF #### [address] [address] UA Protein Negative Normal Negative [facility]) Comment on above: Performed By: #### A WARRNE, PRO, CBC, ADIFF #### [address] [address] UA Spec Grav 1.025 Normal 1.015-1.02 5 [facility] ([place]) Comment on above: Performed By: #### A WARREN, PRO, CBC, ADIFF #### [address] [address] UA Specimen Type Clean Catch Normal [facility] ([place]) Comment on above: Performed By: #### A WARREN, PRO, CBC, ADIFF #### [address] [address] UA Urobilinogen 0.2 E.U./dL Normal 0.2-1.0 [facility] ([place]) Comment on above: Performed By: #### A WARREN, PRO, CBC, ADIFF #### [address] [address] Urobilinogen (U) [Mass/Vol] Negative Normal Negative [facility]) Comment on above: Performed By: #### A WARREN, PRO, CBC, ADIFF #### [address] [address] Final Surgical Pathology Rep psychiatric 11-09-2022 Final Surgical Pathology Report . Pathology Reports Accession: Collected Date/Time: Received Date/Time: Pathologist: [id number] 11/05/2022 08:00 EDT 11/08/2022 10:12 EDT MD [...] All parts labelled with patient name and [id number] Received in formalin labeled gastric antrum are 3 means tissue fragments measuring 0.2 to 0.4 x 0.2 cm. TS-1 Rupal Malone, Grossing Change Over/ Dr. Lorenzo Martinez, Pathologist Dictated by Rupal Malone MICROSCOPIC DESCRIPTION: The microscopic examination is performed, except in the case of Gross Only. Electronically Signed by Pathology Report verified by [facility] MARCELA LE MD Sign out Date: 11/09/2022 15:43 Performing Lab: [facility], [address] [place] [address] Pathology Dept Disclaimer If ancillary studies were utilized, the following Laboratory Developed Test (LDT) disclaimer will apply: Under CLIA requirements, [facility] Pathology [facility] is qualified to perform high complexity testing. For all ancillary stains, positive and negative controls stain appropriately. Performance characteristics of immunohistochemical and chromogenic in-situ hybridization tests have been determined by [facility]ology [facility]. These tests are used for clinical purposes, They should not be regarded as investigational or for research. Normal [facility] ([place]) .Auto Diffon 09-29-2022 Basophil, Absolute 0.0 10 3/mcL Normal 0.0-0.2 [facility] ([place]) Comment on above: Performed By: #### A WARREN, PRO, CBC, ADIFF #### [id number] [place], [place] [address] Basophils/100 WBC (Bld) 0.6 % Normal 0.0-2.5 [facility] ([place]) Comment on above: Performed By: #### A WARREN, PRO, CBC, ADIFF #### [facility] [address] [place], [place] [address] Eosinophil, Absolute 0.5 10 3/mcL High 0.0-0.4 [facility] ([place]) Comment on above: Performed By: #### A WARREN, PRO, CBC, ADIFF #### [facility] [address] [place], [place] [address] Eosinophils/100 WBC (Bld) 7.2 % High 0.0-7.0 [facility]) Comment on above: Performed By: #### A WARREN, PRO, CBC, ADIFF #### [address] [address] Lymphocyte, Absolute 1.7 10 3/mcL Normal 0.8-3.9 [facility] ([place]) Comment on above: Performed By: #### A WARREN, PRO, CBC, ADIFF #### [address] [address] Lymphocytes/100 WBC (Bld) 26.5 % Normal 10.0-50.0 [facility] ([place]) Comment on above: Performed By: #### A WARREN, PRO, CBC, ADIFF #### [address] [address] Monocyte, Absolute 0.5 10 3/mcL Normal 0.2-1.0 [facility] ([place]) Comment on above: Performed By: #### A WARREN, PRO, CBC, ADIFF #### [address] [address] Monocytes/100 WBC (Bld) 8.7 % Normal 1.7-13.0 [facility] ([place]) Comment on above: Performed By: #### A WARREN, PRO, CBC, ADIFF #### [address] [address] Neutrophils/100 WBC (Bld) 57.0 % Normal 37.0-80.0 [facility] ([place]) Comment on above: Performed By: #### A WARREN, PRO, CBC, ADIFF #### [address] [address] .MDWon 09-29-2022 Monocyte Distribution Width 15.89 Normal 0.00-20.00 [facility] ([place]) Comment on above: Result Comment: For ED adult patients suspected of sepsis, MDW<=20.0 does not rule out sepsis or risk of sepsis Performed By: #### A WARREN, PRO, CBC, ADIFF #### [address] [address] .NEUABSon 09-29-2022 Neutrophil, Absolute 3.6 10 3/mcL Normal 2.9-6.2 [facility] ([place]) Comment on above: Performed By: #### A WARREN, PRO, CBC, ADIFF #### [place] [id number] APTTon 09-29-2022 aPTT Coag (Bld) [Time] 54.8 s High 25.0-35.0 [facility] ([place]) Comment on above: Result Comment: For Heparin anticoagulation therapy, the recommended therapeutic range is: 50.6-87.4 seconds. Patients on heparin therapy may have an extreme result. Performed By: #### A WARREN, PRO, CBC, ADIFF #### [place] [id number] Heparin dose (APTT) Coumadin PO Normal [facility] ([place]) Comment on above: Performed By: #### A WARREN, PRO, CBC, ADIFF #### [place] [address] CBCon 09-29-2022 Erythrocyte distribution width (RBC) [Ratio] 16.5 % High 11.5-14.5 [facility] ([place]) Comment on above: Performed By: #### A WARREN, PRO, CBC, ADIFF #### [place] [id number] Hematocrit (Bld) [Volume fraction] 30.3 % Low 37.0-47.0 [facility] ([place]) Comment on above: Performed By: #### A WARREN, PRO, CBC, ADIFF #### [place] [id number] Hgb 10.1 G/dL Low 12.0-16.0 [facility] ([place]) Comment on above: Performed By: #### A WARREN, PRO, CBC, ADIFF #### [place] [id number] MCH (RBC) [Entitic mass] 25.4 pg Low 27.0-31.2 [facility] ([place]) Comment on above: Performed By: #### A WARREN, PRO, CBC, ADIFF #### [address] [address] MCHC 33.3 G/dL Normal 33.0-37.0 [facility] ([place]) Comment on above: Performed By: #### A WARREN, PRO, CBC, ADIFF #### [address] [address] MCV (RBC) [Entitic vol] 76.4 fL Low 80.0-94.0 [facility] ([place]) Comment on above: Performed By: #### A WARREN, PRO, CBC, ADIFF #### [address] [address] Platelet 300 10 3/mcL Normal 130-400 [facility] ([place]) Comment on above: Performed By: #### A WARREN, PRO, CBC, ADIFF #### [address] [address] Platelet mean volume (Bld) [Entitic vol] 7.0 fL Low 7.4-10.4 [facility] ([place]) Comment on above: Performed By: #### A WARREN, PRO, CBC, ADIFF #### [address] [address] RBC 3.96 10 6/mcL Low 4.20-5.40 [facility] ([place]) Comment on above: Performed By: #### A WARREN, PRO, CBC, ADIFF #### [address] [address] WBC 6.3 10 3/mcL Normal 4.6-10.8 [facility] ([place]) Comment on above: Performed By: #### A WARREN, PRO, CBC, ADIFF #### [address] [address] PROon 09-29-2022 PT Coag (PPP) [Time] 38.9 s High 9.1-14.2 [facility] ([place]) Comment on above: Performed By: #### A WARREN, PRO, CBC, ADIFF #### [address] [address] PT International Ratio 3.3 Normal [facility]) Comment on above: Result Comment: [employer] (CHEST, 1991, 102:312S-25S) recommended therapeutic range for oral anticoagulant therapy is: LOW RISK: Prophylaxis of venous thrombosis INR: 2.0-3.0 Treatment of pulmonary embolism 2.0-3.0 Prevention of systemic embolism 2.0-3.0 HIGH RISK: Mechanical prosthetic valves 2.5-3.5 Performed By: #### A WARREN, PRO, CBC, ADIFF #### [address] [address] .Auto Diffon 08-12-2022 Basophil, Absolute 0.0 10 3/mcL Normal 0.0-0.2 [facility]) Comment on above: Performed By: #### G FR, CBC, MDW, TROPHS, ADIFF, ANEU, PRO, BMP, PBNP #### [address] [address] Basophils/100 WBC (Bld) 0.5 % Normal 0.0-2.5 [facility]) Comment on above: Performed By: #### G FR, CBC, MDW, TROPHS, ADIFF, ANEU, PRO, BMP, PBNP #### [address] [address] Eosinophil, Absolute 0.4 10 3/mcL Normal 0.0-0.4 [facility]) Comment on above: Performed By: #### G FR, CBC, MDW, TROPHS, ADIFF, ANEU, PRO, BMP, PBNP #### [address] [address] Eosinophils/100 WBC (Bld) 4.9 % Normal 0.0-7.0 [facility] ([place]) Comment on above: Performed By: #### G FR, CBC, MDW, TROPHS, ADIFF, ANEU, PRO, BMP, PBNP #### [address] [address] Lymphocyte, Absolute 1.9 10 3/mcL Normal 0.8-3.9 [facility] ([place]) Comment on above: Performed By: #### G FR, CBC, MDW, TROPHS, ADIFF, ANEU, PRO, BMP, PBNP #### [address] [address] Lymphocytes/100 WBC (Bld) 23.5 % Normal 10.0-50.0 [facility] ([place]) Comment on above: Performed By: #### G FR, CBC, MDW, TROPHS, ADIFF, ANEU, PRO, BMP, PBNP #### [address] [address] Monocyte, Absolute 0.6 10 3/mcL Normal 0.2-1.0 [facility] ([place]) Comment on above: Performed By: #### G FR, CBC, MDW, TROPHS, ADIFF, ANEU, PRO, BMP, PBNP #### [address] [address] Monocytes/100 WBC (Bld) 7.4 % Normal 1.7-13.0 [facility] ([place]) Comment on above: Performed By: #### G FR, CBC, MDW, TROPHS, ADIFF, ANEU, PRO, BMP, PBNP #### [address] [address] Neutrophils/100 WBC (Bld) 63.7 % Normal 37.0-80.0 [facility] ([place]) Comment on above: Performed By: #### G FR, CBC, MDW, TROPHS, ADIFF, ANEU, PRO, BMP, PBNP #### [address] [address] .GFRon 08-12-2022 GFR 79 ml/min/1.73sqm Normal [facility] ([place]) Comment on above: Result Comment: GFR Population [...] #### A WARREN, PRO, CBC, ADIFF #### [address] [address] GFR Non- 65 ml/min/1.73sqm Normal [facility] ([place]) Comment on above: Result Comment: GFR Population [...] #### A WARREN, PRO, CBC, ADIFF #### [address] [address] .MDWon 08-12-2022 Monocyte Distribution Width 16.21 Normal 0.00-20.00 [facility] ([place]) Comment on above: Result Comment: For ED adult patients suspected of sepsis, MDW<=20.0 does not rule out sepsis or risk of sepsis Performed By: #### G FR, CBC, MDW, TROPHS, ADIFF, ANEU, PRO, BMP, PBNP #### [address] [address] .NEUABSon 08-12-2022 Neutrophil, Absolute 5.1 10 3/mcL Normal 2.9-6.2 [facility] ([place]) Comment on above: Performed By: #### G FR, CBC, MDW, TROPHS, ADIFF, ANEU, PRO, BMP, PBNP #### [address] [address] .Urinalysis Microscopic (AO) on 08-12-2022 UA CA Ox Crystal 1+ /hpf Normal [facility] ([place]) Comment on above: Performed By: #### A WARREN, PRO, CBC, ADIFF #### [address] [address] UA RBC 0-5 Abnormal None Seen [facility] ([place] Comment on above: Performed By: #### A WARREN, PRO, CBC, ADIFF #### [address] [address] UA Squam Epithelial 0-5 Abnormal None Seen [facility] ([place] Comment on above: Performed By: #### A WARREN, PRO, CBC, ADIFF #### [address] [address] UA WBC 0-5 Abnormal None Seen [facility] ([place] Comment on above: Performed By: #### A WARREN, PRO, CBC, ADIFF #### [address] [address] BMPon 08-12-2022 BUN/Creatinine Ratio 20 ratio Normal 7-27 [facility] ([place]) Comment on above: Performed By: #### G FR, CBC, BARBARA, TROPHS, ADIFF, ANEU, PRO, BMP, PBNP #### [address] [address] Calcium [Mass/Vol] 9.6 mg/dL Normal 8.4-10.2 [facility] ([place]) Comment on above: Performed By: #### G FR, CBC, BARBARA, TROPHS, ADIFF, ANEU, PRO, BMP, PBNP #### [address] [address] Chloride [Moles/Vol] 103 mmol/L Normal 98-107 [facility] ([place]) Comment on above: Performed By: #### G FR, CBC, MDW, TROPHS, ADIFF, ANEU, PRO, BMP, PBNP #### [address] [address] CO2 [Moles/Vol] 30 mmol/L High 22-29 [facility] ([place]) Comment on above: Performed By: #### G , DIONICIO, BARBARA, TROPHS, ADIFF, ANEU, PRO, BMP, PBNP #### [address] [address] Creatinine [Mass/Vol] 0.89 mg/dL Normal 0.55-1.02 [facility] ([place]) Comment on above: Performed By: #### G , DIONICIO, BARBARA, TROPHS, ADIFF, ANEU, PRO, BMP, PBNP #### [address] [address] Electrolyte Balance 8.0 mEq/L Normal 4.0-15.0 [facility] ([place]) Comment on above: Performed By: #### G , DIONICIO, BARBARA, TROPHS, ADIFF, ANEU, PRO, BMP, PBNP #### [address] [address] Glucose [Mass/Vol] 105 mg/dL Normal 70-105 [facility] ([place]) Comment on above: Performed By: #### G , DIONICIO, BARBARA, TROPHS, ADIFF, ANEU, PRO, BMP, PBNP #### [address] [address] Potassium [Moles/Vol] 3.3 mmol/L Low 3.5-5.1 [facility] ([place]) Comment on above: Performed By: #### G , DIONICIO, BARBARA, TROPHS, ADIFF, ANEU, PRO, BMP, PBNP #### [address] [address] Sodium [Moles/Vol] 141 mmol/L Normal 136-145 [facility] ([place]) Comment on above: Performed By: #### G , DIONICIO, BARBARA, TROPHS, ADIFF, ANEU, PRO, BMP, PBNP #### [address] [address] Urea nitrogen [Mass/Vol] 18 mg/dL Normal 7-18 [facility] ([place] Comment on above: Performed By: #### G , DIONICIO, BARBARA, TROPHS, ADIFF, ANEU, PRO, BMP, PBNP #### [address] [address] CBCon 08-12-2022 Erythrocyte distribution width (RBC) [Ratio] 15.8 % High 11.5-14.5 [facility] ([place]) Comment on above: Performed By: #### G , DIONICIO, BARBARA, TROPHS, ADIFF, ANEU, PRO, BMP, PBNP #### [address] [address] Hematocrit (Bld) [Volume fraction] 34.6 % Low 37.0-47.0 [facility] ([place]) Comment on above: Performed By: #### G , DIONICIO, BARBARA, TROPHS, ADIFF, ANEU, PRO, BMP, PBNP #### [place] [address] Hgb 11.4 G/dL Low 12.0-16.0 [facility] ([place] Comment on above: Performed By: #### G , DIONICIO, BARBARA, TROPHS, ADIFF, ANEU, PRO, BMP, PBNP #### [address] [address] MCH (RBC) [Entitic mass] 25.7 pg Low 27.0-31.2 [facility] ([place] Comment on above: Performed By: #### G , DIONICIO, BARBARA, TROPHS, ADIFF, ANEU, PRO, BMP, PBNP #### [address] [address] MCHC 32.8 G/dL Low 33.0-37.0 [facility] ([place] Comment on above: Performed By: #### G , DIONICIO, BARBARA, TROPHS, ADIFF, ANEU, PRO, BMP, PBNP #### [address] [address] MCV (RBC) [Entitic vol] 78.4 fL Low 80.0-94.0 [facility] ([place] Comment on above: Performed By: #### G FR, CBC, MDW, TROPHS, ADIFF, ANEU, PRO, BMP, PBNP #### [address] [address] Platelet 300 10 3/mcL Normal 130-400 [facility] ([place] Comment on above: Performed By: #### G FR, CBC, MDW, TROPHS, ADIFF, ANEU, PRO, BMP, PBNP #### [address] [address] Platelet mean volume (Bld) [Entitic vol] 7.4 fL Normal 7.4-10.4 [facility] ([place] Comment on above: Performed By: #### G FR, CBC, MDW, TROPHS, ADIFF, ANEU, PRO, BMP, PBNP #### [address] [address] RBC 4.42 10 6/mcL Normal 4.20-5.40 [facility] ([place]) Comment on above: Performed By: #### G FR, CBC, MDW, TROPHS, ADIFF, ANEU, PRO, BMP, PBNP #### [address] [address] WBC 7.9 10 3/mcL Normal 4.6-10.8 [facility] ([place] Comment on above: Performed By: #### G FR, CBC, MDW, TROPHS, ADIFF, ANEU, PRO, BMP, PBNP #### [address] [address] LABORATORYOrdered By: Lyla Varma on 08-12-2022 Appearance [...] - 18 mg/dL AO ADM SS Urea nitrogen/Creatinine [Mass ratio] 20 ratio Invalid Interpretation Code [...] B (Bld) [Mass/Vol] 85 pg/mL Normal 0-125 [facility] ([place] Comment on above: Result Comment: NT-p roBNP results of less than 300 pg/mL effectively rules out acute congestive heart failure with 99% negative predictive value. Performed By: #### A WARREN, PRO, CBC, ADIFF #### [address] [address] PROon 08-12-2022 PT Coag (PPP) [Time] 34.9 s High 9.1-14.2 [facility] ([place]) Comment on above: Performed By: #### G , DIONICIO, BARBARA, TROPHS, ADIFF, ANEU, PRO, BMP, PBNP #### [address] [address] PT International Ratio 3.0 Normal [facility] ([place]) Comment on above: Result Comment: [employer] (CHEST, 1992, 102:312S-25S) recommended therapeutic range for oral anticoagulant therapy is: LOW RISK: Prophylaxis of venous thrombosis INR: 2.0-3.0 Treatment of pulmonary embolism 2.0-3.0 Prevention of systemic embolism 2.0-3.0 HIGH RISK: Mechanical prosthetic valves 2.5-3.5 Performed By: #### G , DIONICIO, BARBARA, TROPHS, ADIFF, ANEU, PRO, BMP, PBNP #### [address] [address] TROPHSon 08-12-2022 Troponin I High Sensitivity 16.5 ng/L Normal 0.0-51.4 [facility] ([place] Comment on above: Performed By: #### A WARREN, PRO, CBC, ADIFF #### [address] [address] UAon 08-12-2022 Color (U) Yellow Normal [facility] ([place] Comment on above: Performed By: #### A WARREN, PRO, CBC, ADIFF #### [address] [address] Glucose (U) [Mass/Vol] Negative Normal Negative [facility] ([place] Comment on above: Performed By: #### A WARREN, PRO, CBC, ADIFF #### [address] [address] Ketones Ql (U) Negative Normal Negative [facility] ([place] Comment on above: Performed By: #### A WARREN, PRO, CBC, ADIFF #### [address] [address] UA Appear Clear Normal Clear [facility] ([place] Comment on above: Performed By: #### A WARREN, PRO, CBC, ADIFF #### [address] [address] UA Blood Moderate Abnormal Negative [facility] ([place] Comment on above: Performed By: #### A WARREN, PRO, CBC, ADIFF #### [address] [address] UA Leuk Est Negative Normal Negative [facility] ([place] Comment on above: Performed By: #### A WARREN, PRO, CBC, ADIFF #### [address] [address] UA Nitrite Negative Normal Negative [facility] ([place] Comment on above: Performed By: #### A WARREN, PRO, CBC, ADIFF #### [place] [address] UA pH 5.5 Normal 5.0 - 8.0 [facility] ([place]) Comment on above: Performed By: #### A WARREN, PRO, CBC, ADIFF #### [address] [address] UA Protein Negative Normal Negative [facility] ([place] Comment on above: Performed By: #### A WARREN, PRO, CBC, ADIFF #### [address] [address] UA Spec Grav >=1.030 Abnormal 1.015-1.02 5 [facility] ([place] Comment on above: Performed By: #### A WARREN, PRO, CBC, ADIFF #### [address] [address] UA Specimen Type Clean Catch Normal [facility] ([place] Comment on above: Performed By: #### A WARREN, PRO, CBC, ADIFF #### [address] [address] UA Urobilinogen 0.2 E.U./dL Normal 0.2-1.0 [facility] ([place]) Comment on above: Performed By: #### A WARREN, PRO, CBC, ADIFF #### [facility] [address] [place], [place] [address] Urobilinogen (U) [Mass/Vol] Negative Normal Negative [facility] ([place]) Comment on above: Performed By: #### A WARREN, PRO, CBC, ADIFF #### [place] [id number] [place], [place] [address] XR CHEST 1 VIEWon 08-12-2022 XR CHEST [...] 08/12/2022 7:19:21 PM Ordering Provider: SRIDHAR [facility] ([place]) LABORATORYOrdered By: Junior Gaines on 08-09-2022 INR Coag (PPP) [Relative time] 2.0 {INR} Invalid Interpretation Code AO [employer] SS PT Coag (PPP) [Time] 23.1 s Invalid Interpretation Code 9.1 - 14.2 seconds AO [employer] SS PROon 08-09-2022 PT Coag (PPP) [Time] 23.1 s High 9.1-14.2 [facility] ([place]) Comment on above: Performed By: #### A WARREN, PRO, CBC, ADIFF #### [facility] [address] [place], [place] [address] PT International Ratio 2.0 Normal [facility] ([place]) Comment on above: Result Comment: [employer] (CHEST, 1992, 102:312S-25S) recommended therapeutic range for oral anticoagulant therapy is: LOW RISK: Prophylaxis of venous thrombosis INR: 2.0-3.0 Treatment of pulmonary embolism 2.0-3.0 Prevention of systemic embolism 2.0-3.0 HIGH RISK: Mechanical prosthetic valves 2.5-3.5 Performed By: #### A WARREN, PRO, CBC, ADIFF #### [facility] [place] [id number] [place], [place] [address] LABORATORYOrdered By: Alyx Reno on 07-26-2022 INR Coag (PPP) [Relative time] 2.5 {INR} Invalid Interpretation Code AO [employer] SS Comment on above: Interpretive Data: Deny zamarripa [employer] (CHEST, 1991, 102:312S-25S) recommended therapeutic range for oral anticoagulant therapy is: LOW RISK: Prophylaxis of venous thrombosis INR: 2.0-3.0 Treatment of pulmonary embolism 2.0-3.0 Prevention of systemic embolism 2.0-3.0 HIGH RISK: Mechanical prosthetic valves 2.5-3.5 PT Coag (PPP) [Time] 29.1 s High 9.1 - 1 4.2 seconds AO [employer] SS LABORATORYOrdered By: Kimi Stephenson on 07-19-2022 INR Coag (PPP) [Relative time] 2.0 {INR} Invalid Interpretation Code AO [employer] SS Comment on above: Interpretive Data: Deny zamarripa [employer] (CHEST, 1991, 102:312S-25S) recommended therapeutic range for oral anticoagulant therapy is: LOW RISK: Prophylaxis of venous thrombosis INR: 2.0-3.0 Treatment of pulmonary embolism 2.0-3.0 Prevention of systemic embolism 2.0-3.0 HIGH RISK: Mechanical prosthetic valves 2.5-3.5 PT Coag (PPP) [Time] 23.0 s High 9.1 - 1 4.2 seconds AO [employer] SS LABORATORYOrdered By: Junior Gaines on 07-05-2022 INR Coag (PPP) [Relative time] 2.2 {INR} Invalid Interpretation Code AO [employer] SS Comment on above: Interpretive Data: Deny zamarripa [employer] (CHEST1991, 102:312S-25S) recommended therapeutic range for oral anticoagulant therapy is: LOW RISK: Prophylaxis of venous thrombosis INR: 2.0-3.0 Treatment of pulmonary embolism 2.0-3.0 Prevention of systemic embolism 2.0-3.0 HIGH RISK: Mechanical prosthetic valves 2.5-3.5 PT Coag (PPP) [Time] 26.0 s High 9.1 - 1 4.2 seconds AO [employer] SS LABORATORYOrdered By: Mckenna Kerr on 06-25-2022 INR Coag (PPP) [Relative time] 2.5 {INR} Invalid Interpretation Code AO [employer] SS Comment on above: Interpretive Data: Deny zamarripa [employer] (CHEST, 1991, 102:312S-25S) recommended therapeutic range for oral anticoagulant therapy is: LOW RISK: Prophylaxis of venous thrombosis INR: 2.0-3.0 Treatment of pulmonary embolism 2.0-3.0 Prevention of systemic embolism 2.0-3.0 HIGH RISK: Mechanical prosthetic valves 2.5-3.5 PT Coag (PPP) [Time] 29.4 s High 9.1 - 1 4.2 seconds AO [employer] SS LABORATORYOrdered By: Georgina Crowley on 2022 INR Coag (PPP) [Relative time] 2.1 {INR} Invalid Interpretation Code AO [employer] SS Comment on above: Interpretive Data: Deny zamarripa [employer] (CHEST, 1991, 102:312S-25S) recommended therapeutic range for oral anticoagulant therapy is: LOW RISK: Prophylaxis of venous thrombosis INR: 2.0-3.0 Treatment of pulmonary embolism 2.0-3.0 Prevention of systemic embolism 2.0-3.0 HIGH RISK: Mechanical prosthetic valves 2.5-3.5 PT Coag (PPP) [Time] 23.8 s High 9.1 - 1 4.2 seconds AO [employer] SS LABORATORYOrdered By: [employer] SYSTEM on 06-04-2022 Hematocrit (Bld) [Volume fraction] 30.0 % Invalid Interpretation Code 34.0 - 46.0 % Workflow SS Hemoglobin (Bld) [Mass/Vol] 10.1 G/dL Invalid Interpretation Code 12.0 - 16.0 G/dL AH Workflow SS LABORATORYOrdered By: Olimpia Hunter on 06-04-2022 INR Coag (PPP) [Relative time] 2.8 {INR} Invalid Interpretation Code Auto Coag SS PT Coag (PPP) [Time] 33.4 s Invalid Interpretation Code 9.0 - 14.8 seconds Auto Coag SS LABORATORYOrdered By: SYSTEM SYSTEM on 06-03-2022 Basophils (Bld) [#/Vol] 0.0 103/mcL Invalid Interpretation Code 0.0 - 0.3 10^3/mcL Workflow SS Basophils/100 WBC (Bld) 0.3 % [...] Invalid Interpretation Code 0.0 - 0.7 10^3/mcL Workflow SS Eosinophils/100 WBC (Bld) 3.3 % [...] Code 12.0 - 16.0 G/dL Workflow SS Lymphocytes (Bld) [#/Vol] 1.1 103/mcL Invalid Interpretation Code 0.9 - 4.3 10^3/mcL AH Workflow SS Lymphocytes/100 WBC (Bld) 16.6 % Invalid Interpretation Code 20.0 - 40.0 % AH Workflow SS MCH (RBC) [Entitic mass] 29.0 pg Invalid Interpretation Code 27.0 - 33.0 pg AH Workflow SS MCHC 34.4 G/dL Invalid Interpretation Code 32.0 - 36.0 G/dL AH Workflow SS MCV (RBC) [Entitic vol] 84.3 fL Invalid Interpretation Code 80.0 - 99.0 fL AH Workflow SS Monocytes (Bld) [#/Vol] 0.5 103/mcL Invalid Interpretation Code 0.1 - 1.4 10^3/mcL AH Workflow SS Monocytes/100 WBC (Bld) 7.4 % Invalid Interpretation Code 2.0 - 13.0 % AH Workflow SS Neutrophils (Bld) [#/Vol] 4.8 103/mcL Invalid Interpretation Code 2.3 - 8.1 10^3/mcL AH Workflow SS Neutrophils/100 WBC (Bld) 72.4 % Invalid Interpretation Code 50.0 - 75.0 % AH Workflow SS Platelet mean volume (Bld) [Entitic vol] 7.9 fL Invalid Interpretation Code 6.6 - 10.5 fL AH Workflow SS Platelets (Bld) [#/Vol] 237 103/mcL Invalid Interpretation Code 150 - 450 10^3/mcL AH Workflow SS Potassium [Moles/Vol] 4.1 mmol/L Invalid Interpretation Code 3.5 - 5.0 mEq/L AH ADM SS RBC (Bld) [#/Vol] 3.77 106/mcL Invalid Interpretation Code 4.10 - 5.30 10^6/mcL AH Workflow SS Sodium [Moles/Vol] 143 mmol/L Invalid Interpretation Code 136 - 145 mEq/L AH ADM SS Urea nitrogen [Mass/Vol] 23.0 mg/dL Invalid Interpretation Code 8.0 - 22.0 mg/dL AH ADM SS Urea nitrogen/Creatinine [Mass ratio] 26.7 ratio Invalid Interpretation Code 10.0 - 22.0 ratio AH ADM SS WBC (Bld) [#/Vol] 6.6 103/mcL Invalid Interpretation Code 4.5 - 10.8 10^3/mcL AH Workflow SS LABORATORYOrdered By: Ekta Newell on 06-03-2022 INR Coag (PPP) [Relative time] 2.5 {INR} Invalid Interpretation Code AH Auto Coag SS PT Coag (PPP) [Time] 30.5 s Invalid Interpretation Code 9.0 - 14.8 seconds AH Auto Coag SS LABORATORYOrdered By: [employer] on 06-02-2022 Calcium [Mass/Vol] 9.2 mg/dL Invalid Interpretation Code 8.7 - 10.4 mg/dL AH ADM SS Chloride [Moles/Vol] 108 mmol/L Invalid Interpretation Code 98 - 110 mEq/L ADM SS CO2 [Moles/Vol] 34 mmol/L Invalid Interpretation Code 22 - 32 mEq/L AH ADM SS Creatinine [Mass/Vol] 0.94 mg/dL Invalid Interpretation Code 0.50 - 1.20 mg/dL AH ADM SS Electrolyte Balance 1.0 mEq/L Invalid Interpretation Code 4.0 - 15.0 mEq/L AH ADM SS GFR/1.73 sq M.predicted among blacks MDRD (S/P/Bld) [Vol rate/Area] ml/min/1.73sqm Invalid Interpretation Code Chemistry S GFR/1.73 sq M.predicted among non-blacks MDRD (S/P/Bld) [Vol rate/Area] ml/min/1.73sqm Invalid Interpretation Code Chemistry S Glucose [Mass/Vol] 96 mg/dL Invalid Interpretation Code 70 - 110 mg/dL ADM SS Potassium [Moles/Vol] 3.9 mmol/L Invalid Interpretation Code 3.5 - 5.0 mEq/L AH ADM SS Comment on above: Result Comment: Spec imen slightly hemolyzed. Sodium [Moles/Vol] 143 mmol/L Invalid Interpretation Code 136 - 145 mEq/L ADM SS Urea nitrogen [Mass/Vol] 24.0 mg/dL Invalid Interpretation Code 8.0 - 22.0 mg/dL ADM SS Urea nitrogen/Creatinine [Mass ratio] 25.5 ratio Invalid Interpretation Code 10.0 - 22.0 ratio AH ADM SS LABORATORYOrdered By: Rajni Watson on 06-02-2022 INR Coag (PPP) [Relative time] 2.2 {INR} Invalid Interpretation Code Auto Coag SS [...] 13.9 seconds AO Coag SS LABORATORYOrdered By: Mckenan Kerr on 02-11-2022 Basophil, Absolute 0.1 103/mcL [...] - 18 mg/dL AO ADM SS Urea nitrogen/Creatinine [Mass ratio] 29 ratio Invalid Interpretation Code [...] - 18 mg/dL AO ADM SS Urea nitrogen/Creatinine [Mass ratio] 22 ratio Invalid Interpretation Code [...] TO INTENSIVE CARE UNIT FOR CONDITION OF INTEREST:FIND:PT:^PAT IENT:ORD: No (10/08/21 6:50 AM) Invalid Interpretation Code AO Auto Urine SS EMPLOYED IN A HEALTHCARE SETTING:FIND:PT:^JAVED ENT:ORD: Yes (10/08/21 6:50 AM) Invalid Interpretation Code AO Auto Urine SS FIRST TEST FOR CONDITION OF INTEREST:FIND:PT:^PAT IENT:ORD: Unknown (10/08/21 6:50 AM) Invalid Interpretation Code AO Auto Urine SS HAS SYMPTOMS RELATED TO CONDITION OF INTEREST:FIND:PT:^PAT IENT:ORD: No (10/08/21 6:50 AM) Invalid Interpretation Code AO Auto Urine SS Illness or injury onset date and time 20211007 Invalid Interpretation Code AO Auto Urine SS Patient was hospitalized because of this condition No (10/08/21 6:50 AM) Invalid Interpretation Code AO Auto Urine SS status Not (10/08/21 6:50 AM) Invalid Interpretation Code AO Auto Urine SS RESIDES IN A CONGREGATE CARE SETTING:FIND:PT:^JAVED ENT:ORD: No (10/08/21 6:50 AM) Invalid Interpretation Code [...] Anion gap [Moles/Vol] 3 mmol/L Low 5-[address] [facility] Comment on above: Order Comment: Speci men Type: BLOOD SPECIMEN Ordering Facility: [facility] Address: [address] [place] [address] Performed By: #### 2 4321-2 #### [facility] CLIA [id number] [address] [place] [address] [place] Calcium [Mass/Vol] 8.8 mg/dL Normal 8.5-10.5 [facility] Comment on above: Order Comment: Speci men Type: BLOOD SPECIMEN Ordering Facility: [facility] Address: [address] [place] [address] Performed By: #### 2 4321-2 #### [facility] CLIA [id number] [address] [place] [address] [place] Chloride [Moles/Vol] 106 mmol/L Normal 98-107 [facility] Comment on above: Order Comment: Speci men Type: BLOOD SPECIMEN Ordering Facility: [facility] Address: [address] [address] Performed By: #### 2 4321-2 #### [facility] CLIA [id number] [address] [place] [address] [place] CO2 [Moles/Vol] 32 mmol/L Normal 21-32 [facility] Comment on above: Order Comment: Speci damián Type: BLOOD SPECIMEN Ordering Facility: [facility] Address: [address] [place] [address] Performed By: #### 2 4321-2 #### [facility] CLIA [id number] [address] [place] [address] [place] Creatinine [Mass/Vol] 0.72 mg/dL Normal 0.51-0.[address] [facility] Comment on above: Order Comment: Speci men Type: BLOOD SPECIMEN Ordering Facility: [facility] Address: [address] [place] [address] Result Comment: Javed ents receiving either N-Acetylcysteine (NAC) or Metamizole prior to venipuncture, may have falsely depressed results. Performed By: #### 2 4321-2 #### [facility] CLIA [id number] [address] [place] [address] [place] ESTIMATED GLOMERULAR FILTRATION RATE 98 mL/min/1.73m??? Normal >=60 [facility] Comment on above: Order Comment: Candelariai damián Type: BLOOD SPECIMEN Ordering Facility: [facility] Address: [address] [place] [address] Result Comment: Susie mated Glomerular Filtration Rate [...] GFR. Performed By: #### 2 4321-2 #### [facility] CLIA [id number] [address] [place] [address] [place] Glucose [Mass/Vol] 97 mg/dL Normal 70-100 [facility] Comment on above: Order Comment: Candelariai men Type: BLOOD SPECIMEN Ordering Facility: [facility] Address: [address] [id number] Result Comment: The [place] Diabetes Association (ADA) provides guidance for cutoff [...] Standards of Medical Care in Diabetes 2016, [place] Diabetes Association. Diabetes Care. 2016.39(Suppl 1). Results may be falsely elevated after the administration of Sulfapyridine. Results may be falsely depressed after the administration of Sulfasalazine. Performed By: #### 2 4321-2 #### [facility] CLIA [id number] [address] [place] [address] [place] Potassium [Moles/Vol] 4.1 mmol/L Normal 3.5-5.[address] [facility] Comment on above: Order Comment: Speci men Type: BLOOD SPECIMEN Ordering Facility: [facility] Address: [address] [place] [address] Performed By: #### 2 4321-2 #### [facility] CLIA [id number] [address] [place] [address] [place] Sodium [Moles/Vol] 141 mmol/L Normal 136-145 [facility] Comment on above: Order Comment: Speci men Type: BLOOD SPECIMEN Ordering Facility: [facility] Address: [address] [address] Performed By: #### 2 4321-2 #### [facility] CLIA [id number] [address] [place] [address] [place] Urea nitrogen [Mass/Vol] 19 mg/dL Normal 7-26 [facility] Comment on above: Order Comment: Speci men Type: BLOOD SPECIMEN Ordering Facility: [facility] Address: [address] [place] [address] Performed By: #### 2 4321-2 #### [facility] CLIA [id number] [address] [place] [address] [place] CBC W Auto Differential pane l (Bld)on 09-08-2021 Basophils (Bld) [#/Vol] 0.03 10*3/uL Normal <0.11 [facility] Comment on above: Order Comment: Speci men Type: BLOOD SPECIMEN Ordering Facility: [facility] Address: [address] [place] [address] Performed By: #### 5 7021-8 #### [facility] CLIA [id number] [address] [place] [address] [place] Basophils/100 WBC (Bld) 0.4 % Normal [facility] Comment on above: Order Comment: Speci men Type: BLOOD SPECIMEN Ordering Facility: [facility] Address: [address] [place] [address] Performed By: #### 5 7021-8 #### [facility] CLIA [id number] [address] [place] [address] [place] Differential cell count method Nom (Bld) Auto Normal [facility] Comment on above: Order Comment: Speci men Type: BLOOD SPECIMEN Ordering Facility: [facility] Address: [address] [place] [address] Performed By: #### 5 7021-8 #### [facility] CLIA [id number] [address] [place] [address] [place] Eosinophils (Bld) [#/Vol] 0.37 10*3/uL Normal <0.46 [facility] Comment on above: Order Comment: Speci men Type: BLOOD SPECIMEN Ordering Facility: [facility] Address: [address] [place] [address] Performed By: #### 5 7021-8 #### [facility] CLIA [id number] [address] [place] [address] [place] Eosinophils/100 WBC (Bld) 5.2 % Normal [facility] Comment on above: Order Comment: Speci men Type: BLOOD SPECIMEN Ordering Facility: [facility] Address: [address] [place] [address] Performed By: #### 5 7021-8 #### [facility] CLIA [id number] [address] [place] [address] [place] Erythrocyte distribution width (RBC) [Ratio] 13.1 % Normal 11.5-15.0 [facility] Comment on above: Order Comment: Speci men Type: BLOOD SPECIMEN Ordering Facility: [facility] Address: [address] [place] [address] Performed By: #### 5 7021-8 #### [facility] CLIA [id number] [address] [place] [address] [place] Hematocrit (Bld) [Volume fraction] 30.7 % Low 36.0-46.0 [facility] Comment on above: Order Comment: Speci men Type: BLOOD SPECIMEN Ordering Facility: [facility] Address: [address] [place] [address] Performed By: #### 5 7021-8 #### [facility] CLIA [id number] [address] [place] [address] [place] Hemoglobin (Bld) [Mass/Vol] 10.7 g/dL Low 11.5-15.5 [facility] Comment on above: Order Comment: Speci men Type: BLOOD SPECIMEN Ordering Facility: [facility] Address: [address] [place], [place] [address] Performed By: #### 5 7021-8 #### [facility] CLIA [id number] [address] [place] [address] [place] IMMATURE GRAN % 0.3 % Normal [facility] Comment on above: Order Comment: Speci men Type: BLOOD SPECIMEN Ordering Facility: [facility] Address: [address] [place], [place] [address] Performed By: #### 5 7021-8 #### [facility] CLIA [id number] [address] [place] [address] [place] IMMATURE GRAN ABS <0.03 Normal <0.10 [facility] Comment on above: Order Comment: Speci men Type: BLOOD SPECIMEN Ordering Facility: [facility] Address: [address] [place] [address] Performed By: #### 5 7021-8 #### [facility] CLIA [id number] [address] [place] [address] [place] Lymphocytes (Bld) [#/Vol] 1.48 10*3/uL Normal 1.00-4.00 [facility] Comment on above: Order Comment: Speci men Type: BLOOD SPECIMEN Ordering Facility: [facility] Address: [address] [place] [address] Performed By: #### 5 7021-8 #### [facility] CLIA [id number] [address] [place] [address] Lymphocytes/100 WBC (Bld) 20.6 % Normal [facility] Comment on above: Order Comment: Speci men Type: BLOOD SPECIMEN Ordering Facility: [facility] Address: [address] [place] [address] Performed By: #### 5 7021-8 #### [facility] CLIA [id number] [address] [place] [address] [place] MCH (RBC) [Entitic mass] 30.7 pg Normal 26.0-34.0 [facility] Comment on above: Order Comment: Speci men Type: BLOOD SPECIMEN Ordering Facility: [facility] Address: [address] [place] [address] Performed By: #### 5 7021-8 #### [facility] CLIA [id number] [address] [place] [address] MCHC (RBC) [Mass/Vol] 34.9 g/dL Normal 30.5-36.[address] [facility] Comment on above: Order Comment: Speci men Type: BLOOD SPECIMEN Ordering Facility: [facility] Address: [address] [place] [address] Performed By: #### 5 7021-8 #### [facility] CLIA [id number] [address] [place] [address] [place] MCV (RBC) [Entitic vol] 88.2 fL Normal 80.0-100.0 [facility] Comment on above: Order Comment: Speci men Type: BLOOD SPECIMEN Ordering Facility: [facility] Address: [address] [place] [address] Performed By: #### 5 7021-8 #### [facility] CLIA [id number] [address] [place] [address] [place] Monocytes (Bld) [#/Vol] 0.53 10*3/uL Normal <0.87 [facility] Comment on above: Order Comment: Speci men Type: BLOOD SPECIMEN Ordering Facility: [facility] Address: [address] [place] [address] Performed By: #### 5 7021-8 #### [facility] CLIA [id number] [address] [place] [address] [place] Monocytes/100 WBC (Bld) 7.4 % Normal [facility] Comment on above: Order Comment: Speci men Type: BLOOD SPECIMEN Ordering Facility: [facility] Address: [address] [place] [address] Performed By: #### 5 7021-8 #### [facility] CLIA [id number] [address] [place] [address] [place] Neutrophils (Bld) [#/Vol] 4.75 10*3/uL Normal 1.45-7.50 [facility] Comment on above: Order Comment: Speci men Type: BLOOD SPECIMEN Ordering Facility: [facility] Address: [address] [place] [address] Performed By: #### 5 7021-8 #### [facility] CLIA [id number] [address] [place] [address] [place] Neutrophils/100 WBC (Bld) 66.1 % Normal [facility] Comment on above: Order Comment: Speci men Type: BLOOD SPECIMEN Ordering Facility: [facility] Address: [address] Performed By: #### 5 7021-8 #### [facility] CLIA [id number] [address] [place] [address] [place] Nucleated RBC (Bld) [#/Vol] 10*3/uL Normal <0.01 [facility] Comment on above: Order Comment: Speci men Type: BLOOD SPECIMEN Ordering Facility: [facility] Address: [address] [place], [place] [address] Performed By: #### 5 7021-8 #### [facility] CLIA [id number] [address] [place] [address] [place] Nucleated RBC/100 WBC (Bld) [Ratio] 0.0 /100 WBC Normal [facility] Comment on above: Order Comment: Speci men Type: BLOOD SPECIMEN Ordering Facility: [facility] Address: [address] [place], [place] [address] Performed By: #### 5 7021-8 #### [facility] CLIA [id number] [address] [place] [address] [place] Platelet mean volume (Bld) [Entitic vol] 9.3 fL Normal 9.0-12.7 [facility] Comment on above: Order Comment: Speci men Type: BLOOD SPECIMEN Ordering Facility: [facility] Address: [address] [place] [address] Performed By: #### 5 7021-8 #### [facility] CLIA [id number] [address] [place] [address] [place] Platelets (Bld) [#/Vol] 221 10*3/uL Normal 150-400 [facility] Comment on above: Order Comment: Speci men Type: BLOOD SPECIMEN Ordering Facility: [facility] Address: [facility] [address] Performed By: #### 5 7021-8 #### [facility] CLIA [id number] [address] [place], [place] [address] [facility] RBC (Bld) [#/Vol] 3.48 10*6/uL Low 3.90-5.20 [facility] Comment on above: Order Comment: Speci men Type: BLOOD SPECIMEN Ordering Facility: [facility] Address: [address] [place] [address] Performed By: #### 5 7021-8 #### [facility] CLIA [id number] [address] [place], [place] [address] [facility] WBC (Bld) [#/Vol] 7.18 10*3/uL Normal 3.70-11.00 [facility] Comment on above: Order Comment: Speci men Type: BLOOD SPECIMEN Ordering Facility: [facility] Address: [address] [place] [address] Performed By: #### 5 7021-8 #### [facility] CLIA [id number] [address] [place], [place] [address] [facility] ED NOTEon 09-08-2021 ED NOTE HNO ID: [id number] Author: Ivan Potter RN Service: ? Author Type: Registered Nurse Type: ED Notes Filed: 09/08/2021 3:42 PM Note Text: Pt discharged. NAD noted. Pt awake and alert speaking complete sentences. All belongings with pt. [facility] ED NOTE HNO ID: [id number] Author: Quoc Hermosillo, Medic Service: ? Author Type: Architectural Intern and Change Over Type: ED Notes Filed: 09/08/2021 1:22 PM Note Text: Bed: 44-ED Expected date: 09/08/21 Expected time: Means of arrival: Comments: triage [facility] ED PROV NOTEon 09-08-2021 ED PROV NOTE HNO ID: [id number] Author: Mejia Yen MD Service: Emergency Medicine Author Type: Physician Type: ED Provider Notes Filed: 09/08/2021 3:03 PM Note Text: ED Provider Note Patient Name: Gardenia Mujica : 1965 SERVICE DATE: 09/08/21 History Patient presents with: Chest Pain: x4days, seen at [facility] on tuesday Patient complaining of chest [...] HISTORY Procedure Laterality Date - CHOLECYSTECTOMY 1992 [place] - EGD TRANSORAL BIOPSY SINGLE/MULTIPLE 10/20/10 - GSTR RSTCV W/O BYP OTH/THN [place]-BANDED GSTP 1993 [place] - 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 Curiel - LIG/TRNSXJ FLP TUBE ABDL/VAG APPR UNI/BI 1991 [place] - PAST SURGICAL HISTORY OF LIPOSUCTION, TUMMY TUCK - PAST SURGICAL HISTORY OF 2004 ORIF femur, [facility] - TOTAL ABDOMINAL HYSTERECT W/WO RMVL TUBE OVARY 2004 Hysterectomy, LUZ -- ovaries intact, Dr. Luz Garcia in [place] FAMILY HISTORY Problem Relation Age of Onset - Coronary Artery Disease Mother CAD, no VA; first diagnosed mid-50's? - Coronary Artery Disease Maternal Grandmother VA, CAD - Coronary Artery Disease Maternal Grandfather VA, CAD - None Father UNKNOWN --- - [...] 81.6 kg (180 lb) 1.63 m (5' 4.17) Physical Exam Vitals and nursing note reviewed. [...] Interventions: ECG (more content not included)... Normal [facility] TROPONIN I HIGH SENSITIVITYo n 09-08-2021 Tropinin I.cardiac panel High sensitivity method 16.6 pg/mL Normal 0.0-34.0 [facility] Comment on above: Order Comment: Speci men Type: BLOOD SPECIMEN Ordering Facility: [facility] Address: [facility] [place] [address] Result Comment: This assay uses different antibodies than our current assay, and assays, even by the same asphalt paving supervisor may recognize different regions of the antibody and cannot be used interchangeably. Expect results of this assay to run higher than the previous assay. Performed By: #### H JACQUIE #### [facility] CLIA [id number] [facility] [address] [id number] [facility] LABORATORYOrdered By: Nadia Rider on 09-06-2021 Appearance [...] - 18 mg/dL AO ADM SS Urea nitrogen/Creatinine [Mass ratio] 24 ratio Invalid Interpretation Code [...] 9.7 - 14.3 seconds AO Coag SS MSCon 01-13-2021 [facility] DATE OF SERVICE: REASON FOR VISIT: Right [...] HEENT examination reveals she has tenderness in [facility] PATIENT NAME: GARDENIA MUJICA [address] [place] MEDICAL REC #: [id number] [place] [address] [facility] REPORT STATCARE PHYSICIAN the right preauricular area [...] if there is any abnormal symptom, she [facility] PATIENT NAME: GARDENIA MUJICA [address] [place] MEDICAL REC #: [id number] [place] [address] [facility] REPORT STATCARE PHYSICIAN must go to the hospital for further evaluation and care. The patient understands and agrees. Her questions were answered to her satisfaction. She was discharged in stable condition. Eric Huff MD [id number] [facility] File#: [id number] END OF DOCUMENT / CHANGE LOG FOLLOWS Last Edited By Elec. Signed By Eric Huff MD #PAWPR Eric Huff MD #PAWPR on 01/15/2021 08:52 ET on 01/15/2021 08:52 ET Revision Number - 2 Verified/Reviewed by 01/15/[address] [facility] PATIENT NAME: GARDENIA MUJICA [address] [place] MEDICAL REC #: [id number] [place] [address] [facility] REPORT [facility]CARE PHYSICIAN Normal [facility] CDLECHOon 07-07-2020 [facility] [id number] CLI ECHOCARD ECHOCARDIOGRAM [place] [id number] [facility] [place] [address] Noninvasive Cardiac Diagnostics Adult Echocardiogram Report Name: GARDENIA MUJICA Study Date: 07/07/2020 08:14 AMBP: 121/74 mmHg [facility] 1965 Gender: Female Height: 64 in Age: 55 yrs Ethnicity: [place] Weight: 170 lb Accession No. [id number] No. [id number] Reason For Study: CHRONIC ISCHEMIC HEART DISEASE BSA: 1.8 m2 History: Chest Pain,Dyspnea or SOB,Hypertension,Valve surgery or replacement,Palpitations,Lig ht-headed,Syncope Interpretation Summary Definity used in this study [...] motion is normal. There is no thrombus. [facility] PATIENT NAME: GARDENIA MUJICA [address] MEDICAL REC #: [id number] [place] [address] ADMIT DATE: DISCHARGE DATE: ATTENDING PHY: Sridhar [...] LV mass(C)d: SV(Teich): MV E-F Ao root [facility] PATIENT NAME: GARDENIA MUJICA [address] [place] MEDICAL REC #: [id number] [place] [address] ADMIT DATE: DISCHARGE DATE: ATTENDING PHY: Sridhar [...] EZEQUIEL(I,A): 2.1 cm2 EZEQUIEL(I,D): 2.1 cm2 EZEQUIEL(V,A): [facility] PATIENT NAME: GARDENIA MUJICA [address] [place] MEDICAL REC #: [id number] [place] [address] ADMIT DATE: DISCHARGE DATE: ATTENDING PHY: Sridhar [...] cm/sec 10 (more content not included)... Normal [facility] ECHOCARDIOGRAM REPORT Normal [facility] [place] PTon 06-12-2018 INR Coag RelTime (PPP) 6.4 {INR} Critically abnormal 0.9-1.1 [facility] Comment on above: Result Comment: Jf bangura result successfully called to and read back byNATALIYA Morillo_ 06/11/2018 22:22:29 EDTand reported byPJB_. INR Recommended Therapeutic ranges: Prophylaxis/treatment of DVT and PE..........2.0-3.0 Prevention of systemic embolism.................2.0-3.0 Mechanical prosthetic values........................2.5-3.5 CRITICAL VALUE.........................................> 4.0 NOTE: New methodology started 02/27/2018 Performed By: #### 2 [id number] #### PAUL RodriguezHemo [address] [place] [address] Prothrombin time (PT) Coag time (PPP) 77.5 second(s) High 9.7-12.7 [facility] Comment on above: Result Comment: NOTE : New reference range established on 02/27/2018 due to change in methodology. Performed By: #### 2 [id number] #### PAUL RodriguezHemo [employer] [place] [address] XR Chest AP Portableon 06-12 XR Chest AP Portable Exam Date/Time: 06/11/2018 22:16 EDT Reason for Exam: Chest pain Report STUDY: XR Chest AP Portable; 06/11/2018 10:16 pm INDICATION: Chest pain. COMPARISON: None. ACCESSION NUMBER(S): [id number] ORDERING CLINICIAN: Chance [place] FINDINGS: Sternotomy wires [...] am Signed by: Alayna Jarrell MD Technologist: [facility] Normal [facility] Auto Diffon 06-11-2018 Basophils #/vol (Bld) 0.0 E3/mcL Normal 0.0-0.2 [facility] Comment on above: Order Comment: Order Added by Discern Expert. Performed By: #### 2 [id number] #### PAUL RodriguezHemo [address] [place] [address] Basophils/100 WBC (Bld) 0.2 % Normal 0.0-2.0 [facility] Comment on above: Order Comment: Order Added by Discern Expert. Performed By: #### 2 [id number] #### PAUL RemHemo [address] [place] [address] Eos Absolute 0.3 E3/mcL Normal 0.0-0.7 [facility] Comment on above: Order Comment: Order Added by Discern Expert. Performed By: #### 2 [id number] #### PAUL RemHemo [address] [place] [address] Eosinophils/100 WBC (Bld) 2.3 % Normal 0.0-11.0 [facility] Comment on above: Order Comment: Order Added by Discern Expert. Performed By: #### 2 [id number] #### PAUL RemHemo [address] [place] [address] Lymphocytes #/vol (Bld) 2.2 E3/mcL Normal 1.2-3.4 [facility] Comment on above: Order Comment: Order Added by Discern Expert. Performed By: #### 2 [id number] #### PAUL RemHemo [address] [place] [address] Lymphocytes/100 WBC (Bld) 19.3 % Low 20.0-55.0 [facility] Comment on above: Order Comment: Order Added by Discern Expert. Performed By: #### 2 [id number] #### PAUL RemHemo [address] [place] [address] [place] Absolute 0.8 E3/mcL High 0.0-0.7 [facility] Comment on above: Order Comment: Order Added by Discern Expert. Performed By: #### 2 [id number] #### PAUL RemHemo [address] [place] [address] Monocytes/100 WBC (Bld) 7.3 % Normal 0.0-10.0 [facility] Comment on above: Order Comment: Order Added by Discern Expert. Performed By: #### 2 [id number] #### PAUL RemHemo [address] [place] [address] Neutro Absolute 8.1 E3/mcL High 1.4-6.5 [facility] Comment on above: Order Comment: Order Added by Discern Expert. Performed By: #### 2 [id number] #### PAUL RemHemo [address] [place] [address] Neutro Auto 70.9 % Normal 37.0-75.0 [facility] Comment on above: Order Comment: Order Added by Discern Expert. Performed By: #### 2 [id number] #### PAUL RemHemo [employer] [place] [address] BNP.on 06-11-2018 Natriuretic peptide B mass conc (Bld) 94 pg/mL Normal <=100 [facility] Comment on above: Result Comment: [...] patient's BNP level. Performed By: #### C [id number] #### PAUL [employer] [address] [place] [address] CBC w/ Auto Diffon 9 Erythrocyte distribution width Ratio (RBC) 13.7 % Normal 11.5-14.5 [facility] Comment on above: Performed By: #### 2 [id number] #### PAUL RemHemo [address] [place] [address] Hematocrit Volume Fraction (Bld) 36.2 % Normal 36.0-48.0 [facility] Comment on above: Performed By: #### 2 [id number] #### PAUL RemHemo [employer] [place] [address] Hemoglobin mass conc (Bld) 12.3 g/dL Normal 12.0-16.0 [facility] Comment on above: Performed By: #### 2 [id number] #### PAUL RemHemo [address] [place] [address] MCH Entitic mass (RBC) 30.5 pg Normal 27.0-31.0 [facility] Comment on above: Performed By: #### 2 [id number] #### PAUL RemHemo [address] [place] [address] MCHC mass conc (RBC) 34.1 g/dL Normal 33.0-37.0 [facility] Comment on above: Performed By: #### 2 [id number] #### PAUL RemHemo [address] [place] [address] MCV Entitic volume (RBC) 89.4 fL Normal 78.0-100.0 [facility] Comment on above: Performed By: #### 2 [id number] #### PAUL RemHemo [address] [place] [address] Platelet mean volume Entitic volume (Bld) 7.7 fL Normal 7.4-11.0 [facility] Comment on above: Performed By: #### 2 [id number] #### PAUL RemHemo [address] [place] [address] Platelets #/vol (Bld) 253 E3/mcL Normal 130-400 [facility] Comment on above: Performed By: #### 2 [id number] #### PAUL RemHemo [address] [place] [address] RBC #/vol (Bld) 4.05 E6/mcL Normal 3.90-5.40 [facility] Comment on above: Performed By: #### 2 [id number] #### PAUL RemHemo [address] [place] [address] WBC #/vol (Bld) 11.5 E3/mcL High 3.6-11.0 [facility] Comment on above: Performed By: #### 2 [id number] #### PAUL RemHemo [address] [place] [address] CMPon 06-11-2018 Albumin mass conc 3.9 g/dL Normal 3.4-5.0 [facility] Comment on above: Performed By: #### 2 [id number] #### PAUL [employer] [address] [place] [id number] Albumin/Globulin mass ratio 1.4 {ratio} Normal 1.1-1.9 [facility] Comment on above: Performed By: #### 2 [id number] #### PAUL [employer] [address] [place] [id number] Alk Phos 91 Int._Unit/L Normal 33-110 [facility] Comment on above: Performed By: #### 2 766176 #### PAUL [employer] [address] [place] [address] ALT enzyme act/vol 12 Int._Unit/L Normal 7-45 [facility] Comment on above: Performed By: #### 2 [id number] #### PAUL [employer] [address] [place] [address] Anion gap molar conc 9 mmol/L Low 10-20 [facility] Comment on above: Performed By: #### 2 [id number] #### PAUL [employer] [address] [place] [address] AST enzyme act/vol 16 Int._Unit/L Normal 9-39 [facility] Comment on above: Performed By: #### 2 [id number] #### PAUL [employer] [address] [place] [address] Bili Total 0.40 mg/dL Normal 0.00-1.20 [facility] Comment on above: Performed By: #### 2 [id number] #### PAUL [employer] [address] [place] [address] Calcium mass conc 9.1 mg/dL Normal 8.6-10.3 [facility] Comment on above: Performed By: #### 2 111447 #### PAUL [employer] [address] [place] [address] Chloride molar conc 105 mmol/L Normal 98-107 [facility] Comment on above: Performed By: #### 2 678117 #### PAUL [employer] [address] [place] [address] CO2 molar conc 29.0 mmol/L Normal 21.0-32.0 [facility] Comment on above: Performed By: #### 2 818986 #### PAUL [employer] [address] [place] [address] Creatinine mass conc 0.7 mg/dL Normal 0.5-1.1 [facility] Comment on above: Performed By: #### 2 [id number] #### PAUL [employer] [address] [place] [address] Globulin mass conc (S) 3.0 g/dL Normal 2.0-4.0 [facility] Comment on above: Performed By: #### 2 [id number] #### PAUL [employer] [address] [place] [address] Glucose mass conc 85 mg/dL Normal 70-99 [facility] Comment on above: Performed By: #### 2 752401 #### PAUL [employer] [address] [place] [address] Potassium molar conc 4.0 mmol/L Normal 3.5-5.3 [facility] Comment on above: Performed By: #### 2 617806 #### PAUL [employer] [address] [place] [address] Protein mass conc 6.6 g/dL Normal 6.4-8.2 [facility] Comment on above: Performed By: #### 2 410102 #### PAUL [employer] [address] [place] [address] Sodium molar conc 139 mmol/L Normal 136-145 [facility] Comment on above: Performed By: #### 2 663006 #### PALU [employer] [address] [place] [address] Urea nitrogen mass conc 17 mg/dL Normal 6-23 [facility] Comment on above: Performed By: #### 2 662659 #### PAUL [employer] [address] [place] [address] Urea nitrogen/Creatinine mass ratio 24.3 ratio Normal 5.4-30.0 [facility] Comment on above: Performed By: #### 2 [id number] #### PAUL [employer] [address] [place] [address] Troponin-Ion 06-11-2018 Troponin I.cardiac mass conc 0.01 ng/mL Normal 0.00-0.03 [facility] Comment on above: Performed By: #### 2 [id number] #### PAUL [employer] [address] [place] [address] eGFRon 06-11-2018 GFR/1.73 sq M predicted among non-blacks MDRD vol rate/area (S/P/Bld) mL/min/{1.73_m2} Normal [facility] Comment on above: Order Comment: Order added by Discern Expert. Performed By: #### 1 [id number] #### PAUL [employer] [address] [place] [address] Lab Report: Basic Metabolic Profile (BMP)on 08-25-2016 Anion gap 8 mmol/L Invalid Interpretation Code 5-15 [employer] Work Phone: [phone] BUN/Creatinine Ratio 18.9 RATIO Invalid Interpretation Code 10-20 [employer] Phone: [phone] Calcium 9.9 mg/dL Invalid Interpretation Code 8.5-10.1 [employer] Phone: [phone] Chloride 102 mmol/L Invalid Interpretation Code 98-107 [employer] Work Phone: [phone] CO2 30.0 mmol/L Invalid Interpretation Code 21.0-32.0 [employer] Work Phone: [phone] Creatinine 0.90 mg/dL Invalid Interpretation Code 0.55-1.02 [employer] Phone: [phone] eGFR (non-black) 85 mL/min/{1.73_m2} Invalid Interpretation Code >60 [employer] Phone: [phone] eGFR (non-black) 70 mL/min/{1.73_m2} Invalid Interpretation Code >60 [employer] Work Phone: [phone] Glucose 112 mg/dL High 70-110 [employer] Phone: [phone] Potassium 3.9 mmol/L Invalid Interpretation Code 3.5-5.1 [employer] Phone: [phone] Sodium 140 mmol/L Invalid Interpretation Code 136-145 [employer] Phone: [phone] Urea nitrogen 17 mg/dL Invalid Interpretation Code 7-18 [employer] Phone: [phone] Office Visiton 07-02-2016 Documentation of current medications (procedure) Done Invalid Interpretation Code [employer] Phone: [phone] Fall risk assessment No Invalid Interpretation Code [employer] Phone: [phone] Tobacco smoking status NHIS Never smoker [employer] Work Phone: [phone] Tobacco use CPHS Never smoker Invalid Interpretation Code [employer] Phone: [phone] Clinical 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: Prelo manager assembly 10-27-2015 Calcium [Mass/Vol] 9.5 mg/dL [facility] Work Phone: [phone] Chloride [Moles/Vol] 107 mmol/L [facility] Work Phone: [phone] CO2 (BldV) [Partial pressure] 30.0 mmol/L [facility] Work Phone: [phone] Creatinine [Mass/Vol] 0.86 mg/dL [facility] Work Phone: [phone] Glucose [Mass/Vol] 90 mg/dL [facility] Work Phone: [phone] Hematocrit (Bld) [Volume fraction] 41.0 % [facility] Work Phone: [phone] Hematocrit (HCT) 41.0 % Invalid Interpretation Code [facility] Work Phone: [phone] Hemoglobin (Bld) [Mass/Vol] 14.2 g/dL Invalid Interpretation Code [facility] Work Phone: [phone] Platelets 244 10*3/mm3 Invalid Interpretation Code [facility] Work Phone: [phone] Platelets (Bld) [#/Vol] 244 10*3/mm3 [facility] Work Phone: [phone] Potassium [Moles/Vol] 3.9 mmol/L [facility] Work Phone: [phone] Sodium [Moles/Vol] 143 mmol/L [facility] Work Phone: [phone] Urea nitrogen [Mass/Vol] 13 mg/dL [facility] Work Phone: [phone] Urea nitrogen/Creatinine [Mass ratio] 15.1 mg/mg [facility] Work Phone: [phone] WBC (Bld) [#/Vol] 7.5 10*3/uL [facility] Work Phone: [phone] WBC (Leukocytes) 7.5 10*3/uL Invalid Interpretation Code [facility] Work Phone: [phone] Lab Report: Prothrombin Time w/INRon 09-12-2015 PT Coag (PPP) [Time] 26.4 s High 11.7-14.[address] [facility] Work Phone: [phone] Office Visit: Warfarin Calco n 09-12-2015 INR Coag (Bld) [Relative time] Hospital lab Invalid Interpretation Code [facility] Work Phone: [phone] INR Coag (PPP) [Relative time] 2.5 {INR} [facility] Work Phone: [phone] INR in blood by coagulation 2.5 {INR} Invalid Interpretation Code [facility] Work Phone: [phone] INR in blood by coagulation 2.5 to 3.5 Invalid Interpretation Code [facility] Work Phone: [phone] international normalized ratio (INR) range 2.5 to 3.5 [facility] Work Phone: [phone] PT Coag (PPP) [Time] 26.4 s Invalid Interpretation Code [facility] Work Phone: [phone] Office Visiton 03-03-2015 Dietary management education, guidance, and counseling (procedure) yes Invalid Interpretation Code [facility] Work Phone: [phone] General cardiovascular disease 10Y risk [#] [place] 7 % Invalid Interpretation Code [facility] Work Phone: [phone] Clinical 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on Left ventricular Ejection fraction 65 % Invalid Interpretation Code [facility] Work Phone: [phone] Lab Report: Prothrombin Time Fingerstickon 08-09-2014 PT Coag (PPP) [Time] 31.8 s High 11.9-14.[address] [facility] Work Phone: [phone] Clinical 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: Prelo manager assembly 07-10-2014 Albumin [Mass/Vol] 3.4 g/dL Invalid Interpretation Code [facility] Work Phone: [phone] Alkaline phosphatase (ALP) 90 U/L Invalid Interpretation Code [facility] Work Phone: [phone] ALP (Bld) [Catalytic activity/Vol] 90 U/L [facility] Work Phone: [phone] ALT [Catalytic activity/Vol] 33 U/L Invalid Interpretation Code [facility] Work Phone: [phone] Anion gap [Moles/Vol] 7 mmol/L [facility] Work Phone: [phone] AST [Catalytic activity/Vol] 25 U/L Invalid Interpretation Code [employer] Work Phone: [phone] Bilirubin [Mass/Vol] 0.40 mg/dL Invalid Interpretation Code [employer] Work Phone: [phone] Cholesterol [Mass/Vol] 156 mg/dL Invalid Interpretation Code [employer] Work Phone: [phone] Cholesterol in HDL [Mass/Vol] 31 mg/dL Low [employer] Work Phone: [phone] Cholesterol in LDL [Mass/Vol] 67 mg/dL Invalid Interpretation Code [employer] Work Phone: [phone] Lipoprotein.pre-beta [Mass/Vol] 58 mg/dL High [employer] Work Phone: [phone] Protein [Mass/Vol] 6.7 g/dL Invalid Interpretation Code [employer] Work Phone: [phone] Triglyceride [Mass/Vol] 290 mg/dL High [employer] Work Phone: [phone] Office Visiton 06-13-2014 cardiac risk group B Invalid Interpretation Code [employer] Work Phone: [phone] Replaced Document: Raffi Murillo CG Observationson 06-13-2014 EKG QRS axis 16 deg [employer] Work Phone: [phone] electrocardiogram interpretation Sinus Rhythm WITHIN NORMAL LIMITS Invalid Interpretation Code [employer] Work Phone: [phone] GE use only - for [employer] import when terms are not otherwise specified 441 ms Invalid Interpretation Code [employer] Work Phone: [phone] Interpretation Sinus Rhythm WITHIN NORMAL LIMITS [employer] Work Phone: [phone] P [place] 33 deg [employer] Work Phone: [phone] P wave axis, electrocardiogram 33 deg Invalid Interpretation Code [employer] Work Phone: [phone] NH Interval 136 ms [employer] Work Phone: [phone] NH interval, electrocardiogram 136 ms Invalid Interpretation Code [employer] Work Phone: [phone] Pulse (Heart Rate) 64 /min Invalid Interpretation Code [employer] Work Phone: [phone] QRS axis, electrocardiogram 16 deg Invalid Interpretation Code [facility] Work Phone: [phone] QRS Duration 94 ms [facility] Work Phone: [phone] QRS duration, electrocardiogram 94 ms Invalid Interpretation Code [facility] Work Phone: [phone] QT Interval new path ms [facility] Work Phone: [phone] QT interval, electrocardiogram new path ms Invalid Interpretation Code [facility] Work Phone: [phone] QTc Ervin 441 ms [facility] Work Phone: [phone] T [place] 57 deg [facility] Work Phone: [phone] T wave axis, electrocardiogram 57 deg Invalid Interpretation Code [facility] Work Phone: [phone] Vital Signs Date Time Vital Sign Value Performing Clinician Facility 04-19-2024 14:53-0500 Body temperature 97.1 [degF] SHABBIR [employer] [facility] Work Phone: [facility] 04-19-2024 14:53-0500 Diastolic blood pressure 70 mm[Hg] SHABBIR STAVROU Work Phone: [facility] 04-19-2024 14:53-0500 Heart rate 58 /min [facility] [employer] Work Phone: [facility] 04-19-2024 14:53-0500 Respiratory rate 16 /min SHABBIR STAVROU Work Phone: [facility] 04-19-2024 14:53-0500 SaO2% (BldA) [Mass fraction] 99 % SHABBIR STAVROU Work Phone: [facility] 04-19-2024 14:53-0500 Systolic blood pressure 124 mm[Hg] SHABBIR STAVROU Work Phone: [facility] 04-19-2024 12:35-0500 Body height 162.56 cm SHABBIR [employer] Work Phone: [facility] 04-19-2024 12:35-0500 Body mass index (BMI) [Ratio] 29.5 kg/m2 SHABBIR [employer] [facility] [employer] [facility] Work Phone: [facility] 04-19-2024 12:35-0500 Body weight 78.01 kg SHABBIR STAVROU Work Phone: [facility] 03-29-2024 15:07-0500 Body temperature 98.2 [degF] SHABBIR STAVROU Work Phone: [facility] 03-29-2024 15:07-0500 Diastolic blood pressure 68 mm[Hg] SHABBIR STAVROU Work Phone: [facility] 03-29-2024 15:07-0500 Heart rate 83 /min SHABBIR STAVROU Work Phone: [facility] 03-29-2024 15:07-0500 Respiratory rate 18 /min SHABBIR STAVROU Work Phone: [facility] 03-29-2024 15:07-0500 SaO2% (BldA) [Mass fraction] 100 % SHABBIR STAVROU Work Phone: [facility] 03-29-2024 15:07-0500 Systolic blood pressure 128 mm[Hg] SHABBIR STAVROU Work Phone: [facility] 03-29-2024 14:51-0500 Body weight 81.5 kg SHABBIR STAVROU Work Phone: [facility] 03-28-2024 16:42-0500 Inhaled oxygen flow rate 4 L/min SHABBIR STAVROU Work Phone: [facility] 03-28-2024 14:31-0500 Body mass index (BMI) [Ratio] 30.8 kg/m2 SHABBIR STAVROU Work Phone: [facility] 01-28-2024 08:22-0500 Body mass index (BMI) [Ratio] 31.4 kg/m2 SHABBIR STAVROU Work Phone: [facility] 01-28-2024 08:22-0500 Body temperature 98.2 [degF] SHABBIR STAVROU Work Phone: [facility] 01-28-2024 08:22-0500 Body weight 83.23 kg SHABBIR STAVROU Work Phone: [facility] 01-28-2024 08:22-0500 Diastolic blood pressure 80 mm[Hg] SHABBIR STAVROU Work Phone: [facility] 01-28-2024 08:22-0500 Heart rate 67 /min SHABBIR STAVROU Work Phone: [facility] 01-28-2024 08:22-0500 SaO2% (BldA) [Mass fraction] 98 % [employer]ABBIR [employer] Work Phone: [facility] 01-28-2024 08:22-0500 Systolic blood pressure 128 mm[Hg] SHABBIR [employer] Work Phone: [facility] 10-28-2023 14:17-0400 Body mass index (BMI) [Ratio] 31.76 kg/m2 Frederick Colvin CANVAS SHRINKER.PULMONARY FELLOW Work Phone: [facility] 10-28-2023 14:17-0400 Body weight 83.92 kg Frederick Colvin CANVAS SHRINKER.PULMONARY FELLOW Work Phone: [facility] 10-28-2023 13:35-0400 Body height 162.[address] Work Phone: [facility] 10-28-2023 13:35-0400 Body mass index (BMI) [Ratio] 31.76 kg/m2 Sandrine Humphries RD Work Phone: [facility] 10-28-2023 13:35-0400 Body weight 83.[address] Work Phone: [facility] 09-30-2023 10:00-0400 Body height 162.6 cm Jennifer Salas CANVAS SHRINKER.PULMONARY FELLOW Work Phone: [facility] 09-30-2023 10:00-0400 Body mass index (BMI) [Ratio] 31.41 kg/m2 Jennifer Gromovsky CANVAS SHRINKER.PULMONARY FELLOW Work Phone: [facility] 09-30-2023 10:00-0400 Body weight 83.01 kg Jennifer Salas APRN.PULMONARY FELLOW Work Phone: [facility] 07-28-2023 07:52-0400 Body height 162.6 cm Jayashree Hernandez MD Work Phone: [facility] 07-28-2023 07:52-0400 Body mass index (BMI) [Ratio] 31.96 kg/m2 Jayashree Hernandez MD Work Phone: [facility] 07-28-2023 07:52-0400 Body weight 84.46 kg Jayashree Hernandez MD Work Phone: [facility] 07-28-2023 07:52-0400 Diastolic blood pressure 72 mm[Hg] Jayashree Hernandez MD Work Phone: [facility] 07-28-2023 07:52-0400 Heart rate 68 /min Jayashree Hernandez MD Work Phone: [facility] 07-28-2023 07:52-0400 Systolic blood pressure 126 mm[Hg] Jayashree Hernandez MD Work Phone: [facility] 05-27-2023 09:09-0400 Body height 162.6 cm Jayashree Hernandze MD Work Phone: [facility] 05-27-2023 09:09-0400 Body weight 87.64 kg Jayashree Hernandez MD Work Phone: [facility] 05-27-2023 09:09-0400 Diastolic blood pressure 80 mm[Hg] Jayashree Hernandez MD Work Phone: [facility] 05-27-2023 09:09-0400 Heart rate 70 /min Jayashree Hernandez MD Work Phone: [facility] 05-27-2023 09:09-0400 Systolic blood pressure 134 mm[Hg] Jayashree Hernandez MD Work Phone: [facility] 04-01-2023 09:26-0500 Body height 162.6 cm CARMEN MARES MD [facility] 04-01-2023 09:26-0500 Body temperature 97.7 [degF] CARMEN MARES MD [facility] 04-01-2023 09:26-0500 Body weight 84.1 kg CARMEN MARES MD [facility] 04-01-2023 09:26-0500 Diastolic Blood Pressure Non-Invasive 85 mm[Hg] CARMEN MARES MD [facility] 04-01-2023 09:26-0500 Heart rate 92 /min CARMEN MRAES MD [facility] 04-01-2023 09:26-0500 Respiratory rate 18 /min CARMEN MARES MD [facility] 04-01-2023 09:26-0500 Systolic Blood Pressure Non-Invasive 123 mm[Hg] CARMEN MARES MD [facility] 02-25-2023 11:44-0500 Diastolic Blood Pressure Non-Invasive 65 mm[Hg] DR CHET AVILA MD [facility] 02-25-2023 11:44-0500 Heart rate 65 /min DR CHET AVILA MD [facility] 02-25-2023 11:44-0500 Respiratory rate 18 /min DR CHET AVILA MD [facility] 02-25-2023 11:44-0500 Systolic Blood Pressure Non-Invasive 127 mm[Hg] DR CHET AVILA MD [facility] 02-25-2023 11:29-0500 Diastolic Blood Pressure Non-Invasive 86 mm[Hg] DR CHET AVILA MD [facility] 02-25-2023 11:29-0500 Heart rate 67 /min DR CHET AVILA MD [facility] 02-25-2023 11:29-0500 Respiratory rate 17 /min DR CHET AVILA MD [facility] 02-25-2023 11:29-0500 Systolic Blood Pressure Non-Invasive 129 mm[Hg] DR CHET AVILA MD [facility] 02-25-2023 11:21-0500 Respiratory rate 22 /min DR CHET AVILA MD [facility] 02-25-2023 11:17-0500 Diastolic Blood Pressure Non-Invasive 62 mm[Hg] DR CHET AVILA MD [facility] 02-25-2023 11:17-0500 Heart rate 81 /min DR CHET AVILA MD [facility] 02-25-2023 11:17-0500 Systolic Blood Pressure Non-Invasive 107 mm[Hg] DR CHET AVILA MD [facility] 02-25-2023 11:11-0500 Body temperature 97.16 [degF] DR CHET AVILA MD [facility] 02-25-2023 11:05-0500 Respiratory Rate - Anes 13 br/min DR CHET AVILA MD [facility] 02-25-2023 11:00-0500 Respiratory Rate - Anes 16 br/min DR CHET AVILA MD [facility] 02-25-2023 10:55-0500 Respiratory Rate - Anes 14 br/min DR CHET AVILA MD [facility] 02-25-2023 07:49-0500 Body height 162.[address] CHET AVILA MD [facility] 02-25-2023 07:49-0500 Body weight [address] CHET AVILA MD [facility] 02-25-2023 07:49-0500 Body weight 31.81 kg/m2 DR CHET AVILA MD [facility] 02-25-2023 07:40-0500 Body height 162.[address] CHET AVILA MD [facility] 02-25-2023 07:40-0500 Body temperature 97.34 [degF] DR CHET AVILA MD [facility] 02-25-2023 07:40-0500 Body weight [address] CHET AVILA MD [facility] 02-25-2023 07:40-0500 Heart rate 82 /min DR CHET AVILA MD [facility] 12-07-2022 10:00-0400 Diastolic Blood Pressure Non-Invasive 79 1 NIDAL CHOUJAA DO [facility] 12-07-2022 10:00-0400 Heart rate 72 /min NIDAL CHOUJAA DO [facility] 12-07-2022 10:00-0400 Systolic Blood Pressure Non-Invasive 146 1 NIDAL CHOUJAA DO [facility] 12-07-2022 09:25-0400 Body temperature 98.78 [degF] NIDAL CHOUJAA DO [facility] 12-07-2022 09:25-0400 Diastolic Blood Pressure Non-Invasive 88 1 NIDAL CHOUJAA DO [facility] 12-07-2022 09:25-0400 Heart rate 79 /min NIDAL CHOUJAA DO [facility] 12-07-2022 09:25-0400 Respiratory rate 16 /min SANDORAL CHOUJAA DO [facility] 12-07-2022 09:25-0400 Systolic Blood Pressure Non-Invasive 157 1 NIDAL CHOUJAA DO [facility] 08-12-2022 19:34-0400 Diastolic Blood Pressure Non-Invasive 78 1 SRIDHAR FROMMELT DO [facility] 08-12-2022 19:34-0400 Heart rate 68 /min SRIDHAR FROMMELT DO [facility] 08-12-2022 19:34-0400 Respiratory rate 18 /min SRIDHAR FROMMELT DO [facility] 08-12-2022 19:34-0400 Systolic Blood Pressure Non-Invasive 160 1 SRIDHAR FROMMELT DO [facility] 08-12-2022 17:02-0400 Blood Pressure Location SRIDHAR FROMMELT DO [facility] 08-12-2022 17:02-0400 Blood Pressure Method SRIDHAR FROMMELT D O [facility] 08-12-2022 17:02-0400 Body temperature 98.06 [degF] SRIDHAR FROMMELT DO [facility] 08-12-2022 17:02-0400 Diastolic Blood Pressure Non-Invasive 91 1 SRIDHAR ESPINOZA [employer] [facility] 08-12-2022 17:02-0400 Heart rate 77 /min SRIDHAR [employer] [facility] 08-12-2022 17:02-0400 Respiratory rate 18 /min SRIDHAR ESPINOZA [employer] [facility] 08-12-2022 17:02-0400 Systolic Blood Pressure Non-Invasive 152 1 SRIDHAR ESPINOZA [employer] [facility] 06-04-2022 06:53-0400 Body temperature 98.06 [degF] ANDREW SHARONA [employer] [facility] 06-04-2022 06:53-0400 Diastolic Blood Pressure Non-Invasive 74 1 ANDREW SHARONA [employer] [facility] 06-04-2022 06:53-0400 Heart rate 64 /min ANDREW SHARONA [employer] [facility] 06-04-2022 06:53-0400 Respiratory rate 16 /min ANDREW SHARONA ROS[employer] [facility] 06-04-2022 06:53-0400 Systolic Blood Pressure Non-Invasive 132 1 ANDREW SHARONA ROSA [employer] [facility] 06-04-2022 02:49-0400 Blood Pressure Cuff Size ANDREW SHARONA [employer] [facility] 06-04-2022 02:49-0400 Blood Pressure Location ANDREW SHARONA [employer] [facility] 06-04-2022 02:49-0400 Blood Pressure Method ANDREW SHARONA [employer] [facility] 06-04-2022 02:49-0400 Body temperature 98.06 [degF] ANDREW SHARONA [employer] [facility] 06-04-2022 02:49-0400 Diastolic Blood Pressure Non-Invasive 81 1 ANDREW TABOR DO [address] [place] [id number] 06-04-2022 02:49-0400 Heart rate 70 /min ANDREW TABOR DO [address] [place] [id number] 06-04-2022 02:49-0400 Mean blood pressure 91 mm[Hg] ANDREW TABOR DO [address] [place] [id number] 06-04-2022 02:49-0400 Respiratory rate 16 /min ANDREW TABOR DO [address] [place] [id number] 06-04-2022 02:49-0400 Systolic Blood Pressure Non-Invasive 116 1 ANDREW TABOR DO [address] [place] [id number] 06-03-2022 23:19-0400 Body temperature 98.42 [degF] ANDREW TABOR DO [address] [place] [id number] 06-03-2022 23:19-0400 Diastolic Blood Pressure Non-Invasive 71 1 ANDREW TABOR DO [address] [place] [id number] 06-03-2022 23:19-0400 Heart rate 69 /min ANDREW TABOR DO [address] [place] [id number] 06-03-2022 23:19-0400 Mean blood pressure 86 mm[Hg] ANDREW TABOR DO [address] [place] [id number] 06-03-2022 23:19-0400 Respiratory rate 14 /min ANDREW TABOR DO [address] [place] [id number] 06-03-2022 23:19-0400 Systolic Blood Pressure Non-Invasive 129 1 ANDREW TABOR DO [address] [place] [id number] 06-03-2022 15:23-0400 Body temperature 98.06 [degF] ANDREW TABOR DO [address] [place] [id number] 06-03-2022 15:23-0400 Mean blood pressure 83 mm[Hg] ANDREW TABOR DO [address] [place] [id number] 06-03-2022 14:48-0400 Body temperature 97.88 [degF] ANDREW SHARONA DO [facility] 06-03-2022 14:45-0400 Body temperature 97.34 [degF] ANDREW SHARONA DO [facility] 06-03-2022 14:45-0400 Respiratory Rate - Anes 14 br/min ANDREW SHARONA DO [address] [place] [id number] 06-03-2022 14:40-0400 Body temperature 97.34 [degF] ANDREW SHARONA DO [address] [place] [id number] 06-03-2022 14:40-0400 Respiratory Rate - Anes 0 br/min ANDREW SHARONA DO [address] [place] [id number] 06-03-2022 14:35-0400 Body temperature 97.34 [degF] ANDREW BARRIOSLY DO [address] [place] [id number] 06-03-2022 14:35-0400 Respiratory Rate - Anes 0 br/min ANDREW SHARONA DO [address] [place] [id number] 06-03-2022 10:48-0400 Blood Pressure Cuff Size ANDREW SHARONA DO [facility] 06-03-2022 10:48-0400 Blood Pressure Location ANDREW SHARONA DO [facility] 06-03-2022 10:48-0400 Blood Pressure Method ANDREW SHARONA DO [facility] 06-03-2022 10:48-0400 Heart rate 88 /min ANDREW ROLDANERMAYRA ROSA [address] [place] [id number] 06-03-2022 06:39-0400 Blood Pressure Cuff Size ANDREW SHARONA DO [facility] 06-03-2022 06:39-0400 Blood Pressure Location ANDREW ROLDANERMAYRA ROSA [facility] 06-03-2022 06:39-0400 Blood Pressure Method ANDREW TABOR DO [facility] 06-03-2022 06:39-0400 Heart rate 81 /min ANDREW TABOR DO [facility] 06-02-2022 23:02-0400 Body temperature 98.06 [degF] ANDREW TABOR DO [facility] 06-02-2022 20:05-0400 Body height 162.6 cm ANDREW TABOR DO [facility] 06-02-2022 20:05-0400 Body weight 85.4 kg ANDREW TABOR DO [facility] 06-02-2022 20:05-0400 Body weight 32.3 kg/m2 ANDREW TABOR DO [facility] 02-11-2022 14:53-0500 Diastolic Blood Pressure Non-Invasive [address] MD [facility] 02-11-2022 14:53-0500 Heart rate 92 /min DR ARMANDO WAY MD [facility] 02-11-2022 14:53-0500 Reason For Taking VItal Signs DR ARMANDO WAY MD [facility] 02-11-2022 14:53-0500 Respiratory rate 18 /min DR ARMANDO WAY MD [facility] 02-11-2022 14:53-0500 Systolic Blood Pressure Non-Invasive [address] MD [facility] 02-11-2022 11:58-0500 Body temperature 98.42 [degF] DR ARMANDO WAY MD [facility] 02-11-2022 11:58-0500 Diastolic Blood Pressure Non-Invasive [address] MD [facility] 02-11-2022 11:58-0500 Heart rate 96 /min DR ARMANDO WAY MD [facility] 02-11-2022 11:58-0500 Respiratory rate 20 /min DR ARMANDO WAY MD [facility] 02-11-2022 11:58-0500 Systolic Blood Pressure Non-Invasive [address] MD [facility] 12-15-2021 02:34-0400 Body temperature 97.88 [degF] DR JENNIFER MINOR DO [facility] 12-15-2021 02:34-0400 Diastolic blood pressure 90 mm[Hg] DR JENNIFER MINOR DO [facility] 12-15-2021 02:34-0400 Heart rate 75 /min DR JENNIFER MINOR DO [facility] 12-15-2021 02:34-0400 Respiratory rate 18 /min DR JENNIFER MINOR DO [facility] 12-15-2021 02:34-0400 Systolic blood pressure 154 mm[Hg] DR JENNIFER MINOR DO [facility] 11-19-2021 18:37-0400 Diastolic blood pressure 84 mm[Hg] GARRETT MALONE MD [facility] 11-19-2021 18:37-0400 Heart rate 74 /min GARRETT MALONE MD [facility] 11-19-2021 18:37-0400 Respiratory rate 18 /min GARRETT MALONE MD [facility] 11-19-2021 18:37-0400 Systolic blood pressure 158 mm[Hg] GARRETT MALONE MD [facility] 11-19-2021 16:46-0400 Body temperature 98.42 [degF] GARRETT MALONE MD [facility] 11-19-2021 16:46-0400 Diastolic blood pressure 94 mm[Hg] GARRETT MALONE MD [facility] 11-19-2021 16:46-0400 Heart rate 76 /min GARRETT MALONE MD [facility] 11-19-2021 16:46-0400 Respiratory rate 20 /min GARRETT MALONE MD [facility] 11-19-2021 16:46-0400 Systolic blood pressure 170 mm[Hg] GARRETT MALONE MD [facility] 09-06-2021 20:24-0400 Diastolic blood pressure 81 mm[Hg] CHANCE DURESKA DO [facility] 09-06-2021 20:24-0400 Heart rate 68 /min CHANCE DURESKA DO [facility] 09-06-2021 20:24-0400 Mean blood pressure 100 mm[Hg] CHANCE DURESKA DO [facility] 09-06-2021 20:24-0400 Respiratory rate 12 /min CHANCE DURESKA DO [facility] 09-06-2021 20:24-0400 Systolic blood pressure 137 mm[Hg] CHANCE DURESKA DO [facility] 09-06-2021 19:40-0400 Diastolic blood pressure 78 mm[Hg] CHANCE DURESKA DO [facility] 09-06-2021 19:40-0400 Heart rate 69 /min CHANCE DURESKA DO [facility] 09-06-2021 19:40-0400 Mean blood pressure 101 mm[Hg] CHANCE DURESKA DO [facility] 09-06-2021 19:40-0400 Respiratory rate 14 /min CHANCE DURESKA DO [facility] 09-06-2021 19:40-0400 Systolic blood pressure 146 mm[Hg] CHANCE DURESKA DO [facility] 09-06-2021 18:35-0400 Body temperature 98.6 [degF] CHANCE DURESKA DO [facility] 09-06-2021 18:35-0400 Diastolic blood pressure 88 mm[Hg] CHANCE DURESKA DO [facility] 09-06-2021 18:35-0400 Heart rate 69 /min CHANCE DURESKA DO [facility] 09-06-2021 18:35-0400 Respiratory rate 18 /min CHANCE DURESKA DO [facility] 09-06-2021 18:35-0400 Systolic blood pressure 155 mm[Hg] CHANCE DURESKA DO [facility] 07-02-2016 14:35-0400 BMI (Body Mass Index) 30.96 kg/m2 [facility] Work Phone: 07-02-2016 14:35-0400 Body weight 81.83 kg [facility] Work Phone: 07-02-2016 14:35-0400 BP Diastolic 84 mm[Hg] [facility] [employer] Work Phone: 07-02-2016 14:35-0400 BP Systolic 130 mm[Hg] [facility] Work Phone: 07-02-2016 14:35-0400 Height 162.56 cm [facility] Work Phone: 07-02-2016 14:35-0400 Pulse (Heart Rate) 60 /min [facility] Work Phone: 07-02-2016 14:35-0400 Respiratory Rate 18 /min [facility] Work Phone: 07-02-2016 14:35-0400 Weight 81.83 kg Andrew Ramirez MD [place] [facility] Work Phone: 03-03-2015 16:02-0500 BSA (Body Surface Area) 1.94 m2 [facility] Work Phone: 06-13-2014 15:45-0400 Heart rate 64 /min [facility] [employer] Work Phone: Encounters Encounter Date Encounter Type Care Provider Facility Start: 07-20-2024 ambulatory Marcel Chi [facility] Facility:[facility] Start: 07-15-2024 ambulatory Marcel Chi Griffin Facility:[facility] Start: 07-06-2024 End: 07-06-2024 Discharged [facility]ring [facility] -Laboratory Work Phone: Start: 07-06-2024 End: 07-06-2024 ambulatory [facility] Work Phone: Start: 05-25-2024 End: 06-13-2024 Discharged [facility]ring [facility] -Laboratory Work Phone: Start: 05-25-2024 End: 06-13-2024 ambulatory Marcel Chi Griffin Facility:[facility] Start: 05-19-2024 End: 05-19-2024 ambulatory [facility] Work Phone: Start: 05-19-2024 End: 05-19-[address] Marcel Moya MD -Laboratory Work Phone: Start: 05-19-2024 End: 05-19-2024 ambulatory Marcel Tristan Moya Facility:[facility] Start: 05-04-2024 End: 05-04-2024 Discharged [facility]ring [facility] -Laboratory Work Phone: Start: 05-04-2024 End: 05-04-2024 ambulatory [facility] Work Phone: Start: 04-19-2024 End: 04-19-[address] Marcel Moya MD -Medical Out Work Phone: Start: 04-19-2024 End: 04-19-2024 ambulatory SHABBIR STAVROU Work Phone: [facility] Work Phone: Start: 04-19-2024 End: 04-19-2024 ambulatory SHABBIR STAVROU Work Phone: [facility] Work Phone: Start: 04-19-2024 End: 04-19-[address] Marcel Moya MD -Cat Scan, [facility] Work Phone: Start: 04-19-2024 End: 04-19-2024 ambulatory [facility] Facility:[facility] Start: 04-17-2024 End: 04-17-2024 ambulatory SHABBIR STAVROU Work Phone: [facility] Work Phone: Start: 04-17-2024 End: 04-17-[address] Marcel Moya MD -Ultrasound, [facility] Work Phone: Start: 04-17-2024 End: 04-17-2024 ambulatory Marcel Chi Griffin Facility:[facility] Start: 04-13-2024 ambulatory Sandrine Wilcox ty:[facility] Start: 04-11-[address] Jasen Parra MD -Employee Health Start: 04-11-2024 ambulatory Marcel Moya Facility:[facility] Start: 04-11-2024 End: 04-11-[address] Shabbir Kapadia MD -Laboratory Work Phone: Start: 04-10-2024 End: 04-11-2024 ambulatory SHABBIR KAPADIA Work Phone: [facility] Work Phone: Start: 04-10-2024 End: 04-10-2024 Patient encounter procedure SHABBIR KAPADIA Work Phone: -Laboratory Work Phone: Start: 04-10-2024 End: 04-10-2024 ambulatory [facility] Facility:[facility] Start: 04-06-2024 Encounter for genera l adult medical examination without abnormal findings [facility] Start: 04-05-2024 End: 04-13-2024 ambulatory [facility] Facility:[facility] Start: 04-05-2024 End: 04-13-2024 Discharged Recurring SHABBIR KAPADIA Work Phone: -Laboratory Work Phone: Start: 04-05-2024 End: 04-05-[address] Marcel Moya MD -Cat Scan, [facility] Work Phone: Start: 04-05-2024 End: 04-05-2024 ambulatory Marcel Tristan [facility] Facility:[facility] Start: 04-02-2024 End: 04-02-[address] Marcel Moya MD -Laboratory, Specimen Work Phone: Start: 04-02-2024 End: 04-02-2024 ambulatory [facility] Facility:[facility] Start: 03-29-2024 Non-patient / Non-visit Dr. Cem Wheeler [facility] Work Phone: Start: 03-28-2024 Non-patient / Non-visit Dr. Cem Wheeler [facility] Work Phone: Start: 03-28-2024 Non-patient / Non-visit Trung Stockton nd DO -[facility] Start: 03-28-2024 ambulatory [facility] Facility:[facility] Start: 03-28-2024 End: 03-29-2024 Evaluation and management of inpatient Dr. Mejia Wheeler DO -Progressive Care Unit Work Phone: Start: 03-22-2024 End: 03-22-[address] Marcel Moya MD -Outpatient Bone Densitometry Work Phone: Start: 03-22-2024 End: 03-22-2024 [facility] Start: 03-05-2024 End: 03-05-[address] Shabbir Kapadia MD -Laboratory Work Phone: Start: 03-05-2024 End: 03-05-2024 ambulatory Shabbir Kapadia Facility:[facility] Start: 03-02-2024 End: 03-02-2024 Patient encounter procedure Sanrdine Walker [place] -[facility] Work Phone: Start: 03-02-2024 End: 03-02-2024 ambulatory Sandrine Walker [facility] Start: 03-02-2024 End: 03-02-[address] Marcel Moya MD -Laboratory, Phy Office 3rd Flr Start: 03-02-2024 End: 03-02-2024 ambulatory Marcel Moya Facility:[facility] Start: 02-21-2024 End: 02-21-[address] Marcel Moya MD -Laboratory, Phy Office 3rd Flr Start: 02-21-2024 End: 02-21-2024 ambulatory Marcel Hudson Griffin Facility:[facility] Start: 01-31-2024 End: 01-31-2024 ambulatory CARL1 CORTEZ Facility:[facility] Start: 01-31-2024 End: 01-31-2024 Discharged Recurring SHABBIR KAPADIA Work Phone: -Laboratory Work Phone: Start: 01-30-2024 End: 01-30-2024 Patient encounter procedure [employer] [facility] [employer]-C -Laboratory, Specimen Work Phone: Start: 01-30-2024 End: 01-30-2024 ambulatory My Champion Facility:[facility] Start: 01-28-2024 End: 01-28-2024 Patient encounter procedure [facility] Work Phone: Start: 01-28-2024 End: 01-28-2024 ambulatory My Champion Facility:[facility] Start: 01-16-2024 End: 01-16-2024 Telephone encounter Jayashree Hernandez MD Work Phone: [facility] Comment on above: MDT Start: 01-09-2024 End: 01-14-2024 Discharged Recurring SHABBIR KAPADIA Work Phone: -Laboratory, Phy Office 3rd Flr Start: 01-09-2024 End: 01-14-2024 ambulatory [facility] Facility[facility] Start: 12-28-2023 End: 12-28-2023 ambulatory Jennifer Salas CANVAS SHRINKER.PULMONARY FELLOW Work Phone: [facility] Start: 12-28-2023 End: 12-28-2023 Patient encounter procedure Jennifer Salas CANVAS SHRINKER.PULMONARY FELLOW Work Phone: [facility] Comment on above: Fax Start: 12-07-2023 End: 12-07-2023 ambulatory [facility] Start: 11-30-2023 End: 11-30-2023 ambulatory [facility] Start: 11-26-2023 End: 11-26-2023 ambulatory [facility] Start: 11-23-2023 End: 11-23-2023 Emergency department patient visit Tylor Velasquez Facility:[facility] Start: 11-23-2023 End: 12-15-2023 ambulatory Tacho Ochoa Facility:[facility] Start: 11-16-2023 End: 11-16-2023 ambulatory Tacho Ochoa Facility:[facility] Start: 11-09-2023 End: 11-09-2023 ambulatory Jayashree Hernandez MD Work Phone: [facility] Start: 11-09-2023 End: 11-09-2023 Patient encounter procedure Jayashree Hernandez MD Work Phone: [facility] Comment on above: Lab Start: 11-08-2023 End: 11-08-2023 ambulatory Tacho Ochoa Facility:[facility] Start: 11-02-2023 End: 11-02-2023 Telephone encounter Frederick Colvin APRN.PULMONARY FELLOW Work Phone: [facility] Comment on above: Appointment Start: 10-28-2023 End: 10-28-2023 Admission to same day surgery center Frederick Colvin APRN.PULMONARY FELLOW Work Phone: [facility] Comment on above: Gastroesophageal ref lux disease with esophagitis without hemorrhage (Primary Dx); History of bariatric surgery; Class 1 obesity with serious comorbidity and body mass index (BMI) of 31.0 to 31.9 in adult, unspecified obesity type; NATO (obstructive sleep apnea) Start: 10-28-2023 End: 10-28-2023 Patient encounter procedure Sandrine Humphries RD Work Phone: [facility] Comment on above: Class 1 obesity with serious comorbidity and body mass index (BMI) of 31.0 to 31.9 in adult, unspecified obesity type (Primary Dx) Start: 10-28-2023 End: 10-28-2023 Telemedicine consultation with patient Frederick Donald MARTINEZPULMONARY FELLOW Work Phone: [facility] Start: 10-28-2023 End: 10-28-2023 ambulatory FREDERICK COLVIN Facility:[facility] Start: 10-25-2023 End: 10-25-2023 ambulatory Tacholawrence Ochoa Facility:[facility] Start: 10-18-2023 End: 10-18-2023 Orders Only Jennifer Salas APRN.PULMONARY FELLOW Work Phone: [facility] Comment on above: Increased PTH level (Primary Dx); Blood alkaline phosphatase increased compared with prior measurement Start: 10-14-2023 End: 10-14-2023 Subsequent hospital visit by physician [facility] Work Phone: Radiology Comment on above: Gastroesophageal ref lux disease with esophagitis without hemorrhage [K21.00] Start: 10-14-2023 End: 10-14-2023 ambulatory JENNIFER SALAS Facility:[facility] Start: 09-30-2023 Telephone encounter Jayashree de la cruz MD Work Phone: [facility] Comment on above: Medical Clearance Start: 09-30-2023 End: 09-30-2023 Admission to same day surgery center Jennifer Salas APRN.PULMONARY FELLOW Work Phone: [facility] Comment on above: Gastroesophageal ref lux disease with esophagitis without hemorrhage (Primary Dx); Helicobacter pylori infection; Class 1 obesity with serious comorbidity and body mass index (BMI) of 31.0 to 31.9 in adult, unspecified obesity type; History of bariatric surgery; History of mechanical aortic valve replacement; NATO (obstructive sleep apnea) Start: 09-30-2023 End: 09-30-2023 Telemedicine consultation with patient Jennifer Salas APRN.PULMONARY FELLOW Work Phone: [facility] Start: 09-30-2023 End: 09-30-2023 ambulatory JENNIFER SALAS [facility] Start: 09-29-2023 ambulatory Tacho Ochoa Facility:[facility] Start: 09-25-2023 End: 09-25-2023 ambulatory Shabbir Kapadia Facility:[facility] Start: 08-12-2023 ambulatory Jayashree Hernandez MD Work Phone: [facility] Start: 08-12-2023 Patient encounter procedure Jayashree Hernandez MD Work Phone: [facility] Comment on above: Ekg Start: 08-01-2023 Telephone encounter Jennifer lewis CANVAS SHRINKER.PULMONARY FELLOW Work Phone: [facility] Comment on above: Patient Update Start: 07-29-2023 End: 07-29-2023 ambulatory [facility] Facility:[facility] Start: 07-28-2023 Telephone encounter Jayashree de la cruz MD Work Phone: [facility] Comment on above: Appointment Appointment; Patient Question Start: 07-28-2023 End: 07-28-2023 Patient encounter procedure Jayashree Hernandez MD Work Phone: [facility] Comment on above: Gastroesophageal ref lux disease with esophagitis without hemorrhage (Primary Dx); Helicobacter pylori infection; Class 1 obesity with serious comorbidity and body mass index (BMI) of 31.0 to 31.9 in adult, unspecified obesity type; History of bariatric surgery; History of mechanical aortic valve replacement; NATO (obstructive sleep apnea); Nutritional anemia Start: 07-28-2023 End: 07-28-2023 ambulatory JAYASHREE HERNANDEZ Facility:[facility] Start: 06-10-2023 Telephone encounter Jayashree de la cruz MD Work Phone: [facility] Comment on above: Patient Update ([place] [facility] enefits information ) Start: 05-27-2023 End: 05-27-2023 ambulatory Ccf Provider [facility] Comment on above: Bariatric Seminar Start: 05-27-2023 E-mail encounter abdoul m caregiver Ccf Provider [facility] Start: 05-27-2023 Telephone encounter Jayashree de la cruz MD Work Phone: [facility] Comment on above: Appointment Start: 05-27-2023 End: 05-27-2023 Patient encounter procedure Jayashree Hernandez MD Work Phone: [facility] Comment on above: Helicobacter pylori infection (Primary Dx); Gastroesophageal reflux disease without esophagitis; History of bariatric surgery; Hx of aortic valve replacement, mechanical; NATO (obstructive sleep apnea); Class 1 obesity with serious comorbidity and body mass index (BMI) of 33.0 to 33.9 in adult, unspecified obesity type Start: 05-22-2023 ambulatory Jayashree Hernandez MD Work Phone: [facility] Comment on above: Clarithromycin Start: 05-17-2023 Orders Only Jennifer alvarado [employer]VAS SHRINKER.PULMONARY FELLOW Work Phone: [facility] Comment on above: Helicobacter pylori infection (Primary Dx) Start: 05-13-2023 Preprocedural examin ation done Jennifer Salas CANVAS SHRINKER.PULMONARY FELLOW Work Phone: [facility] Work Phone: Start: 05-13-2023 Encounter for other preprocedural examination JAYASHREE [facility] Start: 05-13-2023 ambulatory JAYASHREE HERNANDEZ Facility: [facility] Start: 05-10-2023 End: 05-14-2023 ambulatory [facility] Work Phone: Start: 05-10-2023 End: 05-14-2023 Discharged Recurring [facility] Work Phone: Start: 04-22-2023 [facility] Facility: [facility] Start: 04-22-2023 End: 04-22-2023 Subsequent hospital visit by physician Gi/Gu 1 [facility] (I-Stat) [facility] Comment on above: Gastroesophageal ref lux disease, unspecified whether esophagitis present [K21.9] Start: 04-01-2023 End: 04-01-2023 Emergency department patient visit CARMEN MARES MD [facility] Start: 03-11-2023 End: 03-11-2023 ambulatory [facility] Facility:[facility] Start: 03-04-2023 End: 03-04-[address] SHABBIR KAPADIA MD Facility:B Start: 02-25-2023 End: 02-25-[address] CHET AVILA MD Facility:[facility] Start: 02-25-2023 End: 02-25-[address] CHET AVILA MD [facility] Start: 12-07-2022 End: 12-07-2022 Emergency department patient visit SHARON BLAKELY DO [facility] Start: 11-05-2022 End: 11-05-[address] CHET AVILA MD Facility:B Start: 09-29-2022 End: 09-29-2022 Emergency department patient visit CARMEN GILESLOR Facility:[facility] Start: 08-12-2022 End: 08-12-2022 Emergency department patient visit SRIDHAR ESPINOZA DO [facility] Start: 08-09-2022 End: 08-09-[address] SHABBIR KAPADIA MD Facility:[facility] Start: 08-09-2022 End: 08-09-[address] SHABBIR KAPADIA MD [facility] Start: 07-26-2022 End: 06-26-2023 Lab-Standing Order DANIEL TROARE [facility] Start: 07-19-2022 End: 07-30-2023 Lab-Standing Order DR SHABBIR KAPADIA MD [facility] Start: 06-02-2022 End: 06-04-2022 Evaluation and management of inpatient ANDREW TABOR DO [facility] Start: 04-30-2022 End: 04-30-[address] SHABBIR KAPADIA MD [facility] Start: 03-26-2022 End: 03-26-[address] SHABBIR KAPADIA MD [facility] Start: 02-11-2022 End: 02-11-2022 Emergency department patient visit DR ARMANDO WAY MD [facility] Start: 12-15-2021 End: 12-15-2021 Emergency department patient visit DR JENNIFER MINOR DO [facility] Start: 11-19-2021 End: 11-19-2021 Emergency department patient visit GARRETT MALONE MD [facility] Start: 11-13-2021 End: 11-13-[address] SHABBIR KAPADIA MD [facility] Start: 10-08-2021 End: 10-12-2021 Outreach Lab ORLIN CONNIE CANVAS SHRINKER-PULMONARY FELLOW [facility] Start: 09-06-2021 End: 09-06-2021 Emergency department patient visit CHANCE ROGERIO DO [facility] Start: 08-26-2021 End: 08-26-2021 Patient encounter procedure ZACKERY TRUONG DO [facility] Start: 06-18-2021 End: 06-18-[address] SHABBIR KAPADIA MD [facility] Start: 05-19-2021 End: 06-13-2022 Lab-Standing Order DR SHABBIR KAPADIA MD [facility] Start: 04-15-2021 End: 05-10-2022 Lab-Standing Order DR SHABBIR KAPADIA MD [facility] Start: 01-14-2021 Patient encounter procedure Eric Huff MD Work Phone: [facility] Start: 01-14-2021 Progress Note Eric Huff MD Work Phone: [facility] Start: 06-11-2018 End: 06-12-2018 Emergency department patient visit Chance [place] Facility:[facility] Start: 06-11-2018 Patient encounter procedure Facility:[id number] Procedures Date Procedure Procedure Detail Performing Clinician Start: 05-19-2024 Vitamin D, 25-hydroxy measurement [facility] Comment on above: Vitamin D StatusDeficiency: <20 ng/mL (5 0nmol/L)Insufficiency: 20-30 ng/mL (50-75 nmol/L)Sufficiency: 30-100 ng/mL (75-250 nmol/L)Toxicity: >100 ng/mL (>250 nmol/L) Start: 04-19-2024 Clostridium difficile detection SHABBIR STAV ROU Work Phone: Start: 04-19-2024 Lactoferrin measurement SHABBIR STEFFI Work Phone: Start: 04-19-2024 Measurement of occult blood in stool specimen using immunoassay SHABBIR KAPADIA Work Phone: Start: 04-19-2024 Nucleic acid assay SHABBIR STEFFI Work Phone: Start: 04-19-2024 Ova OR parasites identification SHABBIR STAV ROU Work Phone: Start: 04-19-2024 Urine culture SHABBIR STEFFI Work Phone: Start: 04-19-2024 Computed tomography of abdomen and pelvis with contrast SHABBIR STEFFI Work Phone: Start: 04-19-2024 Iadna-dna/rna gi pthgn multiplex probe tq 6-11 [facility] Start: 04-17-2024 Ultrasound elastography of liver SHABBIR STA VROU Work Phone: Start: 04-11-2024 SARS-CoV-2, Influenza & RSV (PCR) SHABBIR ST AVROU Work Phone: Start: 04-05-2024 Computed tomography of abdomen and pelvis with contrast SHABBIR STAVROU Work Phone: Start: 04-02-2024 Iadna-dna/rna gi pthgn multiplex probe tq 6-11 [facility] Start: 04-02-2024 Clostridium difficile detection SHABBIR STAV ROU Work Phone: Start: 04-02-2024 Lactoferrin measurement SHABBIR STAVROU Work Phone: Start: 04-02-2024 Measurement of occult blood in stool specimen using immunoassay SHABBIR STAVROU Work Phone: Start: 04-02-2024 Nucleic acid assay SHABBIR STAVROU Work Phone: Start: 04-02-2024 Ova OR parasites identification SHABBIR STAV ROU Work Phone: Start: 04-02-2024 [facility] Comment on above: GFR Calc Start: 03-28-2024 Esophagogastroduodenoscopy SHABBIR STAVROU Work Phone: Start: 03-28-2024 Computed tomography of abdomen and pelvis with intravenous contrast SHABBIR STAVROU Work Phone: Start: 03-28-2024 Plain X-ray abdomen SHABBIR STAVROU Work Phone: Start: 03-28-2024 [facility] Start: 03-28-2024 [facility] renal [facility] Comment on above: GFR Calc Start: 03-22-2024 Bone density scan SHABBIR STAVROU Work Phone: Start: 03-02-2024 Urine culture SHABBIR STAVROU Work Phone: Start: 01-30-2024 Urine culture SHABBIR STAVROU Work Phone: Start: 10-14-2023 Us abdominal real time w/image limited Jayashree Hernandez MD Work Phone: Start: 10-14-2023 Lipid 1996 panel - Serum or Plasma Us 2 Work Phone: Start: 04-22-2023 XR UPPER GI SINGLE CONTRAST Jayashree esparza MD Work Phone: Start: 11-05-2022 Esophagogastroduodenoscopy NIDAL HECTORUSABRINA DO Start: 10-10-2020 Cardiovascular stress test using [...] Dietary management education, guidance, and counseling Kristyn Montiel Start: 03-03-2015 End: 03-04-2015 Coagulation factor induced.INR [...] Serum or Plasma Gi/Gu (I-Stat) Start: 11-19-2009 Varghese Huff MD Work Phone: Cholecystectomy DR SHABBIR MATHIAS MD Entire femur (body structure) DR SHABBIR KAPADIA MD Heart structure (body structure) DR SHABBIR KAPADIA MD Comment on above: artificial heart valve, aorta Hysterectomy DR SHABBIR KAPADIA MD Replacement of aortic valve ZACKERY TRUONG DO Sternotomy ZACKERY Zeng Plan of Treatment Date Care Activity Detail Author Start: 04-01-2033 Urine microalbumin profile DTaP,Tdap,Td Vaccine (7 - Td or Tdap) [facility] Start: 10-13-2028 Lipid panel Lipid Screening [facility] Start: 10-13-2026 Diabetes Screening Diabetes Screening [facility] Start: 09-08-2024 Diabetes Screening Diabetes Screening [facility] Start: 07-27-2024 BP Controlled (<130/80) BP Controlled (<130/80) [facility] Start: 04-19-2024 Bacteria identified in Urine by Culture Urine Culture [facility] Start: 04-19-2024 Iv infusion hydration each additional hour HYDRATE IV INFUSION ADD-ON [facility] Start: 04-19-2024 Iv infusion hydration initial 31 min-1 hour HYDRATION IV INFUSION INIT [facility] Start: 04-19-2024 Ova and Parasites Ova and Parasites [facility] Start: 04-19-2024 [facility] Start: 03-29-2024 Patient discharge [facility] Start: 03-28-2024 End: 03-29-2024 [facility] Start: 03-28-2024 Following clinical pathway protocol [facility] Start: 03-28-2024 Ambulation without limitation [facility] Start: 03-28-2024 Assessment of risk of venous thromboembolism [facility] Start: 03-28-2024 Insertion of catheter into peripheral vein [facility] Start: 03-28-2024 Insertion of nasogastric tube [facility] Start: 03-28-2024 Measuring intake and output [facility] Start: 03-28-2024 Providing care according to standard [facility] Start: 03-28-2024 Referral to gastroenterology service [facility] Start: 03-28-2024 Admission procedure [facility] Start: 12-14-2023 End: 12-14-2023 Patient encounter procedure 12/14/2023 11:30 AM EDT [facility] BARIATRIC DEPARTMENT [address] [place] [address] Trish Link, RD [address] [place] [address] Ssntdukh-Wtcxbo-KXJ-throu gh VA-Needs DX GERD-SEE TE 6/17 [facility] Comment on above: Nbbxoron-Dvptbl-ZEZ-through VA-Needs DX GERD-SEE TE 07/31 Start: 12-13-2023 End: 12-13-2023 Patient encounter procedure 12/13/2023 8:00 AM EDT [facility] [address] [place] [address] Estelita Morgan, PSYD [address] [facility] [place] [address] Iwqpeoez-Xazcej-LGC-throu gh VA-Needs DX GERD-SEE TE 07/31 [facility] Comment on above: Nbdfpwwx-Zxshyj-PGS-through [facility]-Needs DX GERD-SEE TE 07/31 Start: 11-28-2023 End: 11-28-2023 Patient encounter procedure [facility] Comment on above: Zolumivr-Fmoesh-RPE-through [facility]eds DX GERD-SEE TE 07/31 Start: 10-28-2023 End: 10-28-2023 Patient encounter procedure [facility] Comment on above: Gdipuwes-Bjimsw-OMN-through [facility]-Needs DX GERD-SEE TE 07/31 Start: 10-18-2023 End: 01-17-2024 Hepatic function 2000 panel - Serum or Plasma HEPATIC FUNCTION PNL Lab Routine Blood alkaline phosphatase increased compared with prior measurement Expected: 10/18/2023, Expires: 01/17/2024 [facility] Comment on above: Expected: 10/18/2023, Expires: Start: 10-18-2023 End: 01-17-2024 Parathyrin.intact [Mass/volume] in Serum or Plasma PTH INTACT Lab Routine Increased PTH level Expected: 10/18/2023, Expires: 01/17/2024 [facility] Work Phone: Comment on above: Expected: 10/18/2023, Expires: Start: 10-16-2023 Covid-19 Vaccine () Covid-19 Vaccine () [facility]: 10-16-2023 Covid-19 Vaccine () Covid-19 Vaccine () [facility] Start: 10-16-2023 Influenza [facility] Start: 09-30-2023 End: 12-30-2023 25-hydroxyvitamin D3 [Mass/volume] in Serum or Plasma VITAMIN D 25 HYDROXY Lab Routine Gastroesophageal reflux disease with esophagitis without hemorrhage History of bariatric surgery Expected: 09/30/2023, Expires: 12/30/2023 [facility] Comment on above: Expected: 09/30/2023, Expires: Start: 09-30-2023 End: 12-30-2023 CBC panel - Blood by Automated count COMPLETE BLOOD COUNT Lab Routine Gastroesophageal reflux disease with esophagitis without hemorrhage History of bariatric surgery Expected: 09/30/2023, Expires: 12/30/2023 [facility] Work Phone: Comment on above: Expected: 09/30/2023, Expires: 4 Start: 09-30-2023 End: 12-30-2023 Cobalamin (Vitamin B12) [Mass/volume] in Serum or Plasma VITAMIN B12 Lab Routine Gastroesophageal reflux disease with esophagitis without hemorrhage History of bariatric surgery Expected: 09/30/2023, Expires: 12/30/2023 [facility] Comment on above: Expected: 09/30/2023, Expires: Start: 09-30-2023 End: 12-30-2023 Comprehensive metabolic 2000 panel - Serum or Plasma COMPREHENSIVE METABOLIC PANEL Lab Routine Gastroesophageal reflux disease with esophagitis without hemorrhage History of bariatric surgery Expected: 09/30/2023, Expires: 12/30/2023 [facility] Comment on above: Expected: 09/30/2023, Expires: Start: 09-30-2023 End: 12-30-2023 Ferritin [Mass/volume] in Serum or Plasma FERRITIN Lab Routine Gastroesophageal reflux disease with esophagitis without hemorrhage History of bariatric surgery Expected: 09/30/2023, Expires: 12/30/2023 [facility] Comment on above: Expected: 09/30/2023, Expires: 4 Start: 09-30-2023 End: 12-30-2023 Folate [Mass/volume] in Serum or Plasma FOLATE, SERUM Lab Routine Gastroesophageal reflux disease with esophagitis without hemorrhage History of bariatric surgery Expected: 09/30/2023, Expires: 12/30/2023 [facility] Comment on above: Expected: 09/30/2023, Expires: Start: 09-30-2023 End: 12-30-2023 Hemoglobin A1c in Blood HEMOGLOBIN A1C Lab Routine Gastroesophageal reflux disease with esophagitis without hemorrhage History of bariatric surgery Expected: 09/30/2023, Expires: 12/30/2023 [facility] Comment on above: Expected: 09/30/2023, Expires: Start: 09-30-2023 End: 12-30-2023 Iron and Iron binding capacity panel - Serum or Plasma IRON AND TIBC Lab Routine Gastroesophageal reflux disease with esophagitis without hemorrhage History of bariatric surgery Expected: 09/30/2023, Expires: 12/30/2023 [facility] Comment on above: Expected: 09/30/2023, Expires: 4 Start: 09-30-2023 End: 12-30-2023 Lipid 1996 panel - Serum or Plasma LIPID PANEL BASIC Lab Routine Gastroesophageal reflux disease with esophagitis without hemorrhage History of bariatric surgery Expected: 09/30/2023, Expires: 12/30/2023 [facility] Comment on above: Expected: 09/30/2023, Expires: Start: 09-30-2023 End: 12-30-2023 Parathyrin.intact [Mass/volume] in Serum or Plasma PTH INTACT Lab Routine Gastroesophageal reflux disease with esophagitis without hemorrhage History of bariatric surgery Expected: 09/30/2023, Expires: 12/30/2023 [facility] Comment on above: Expected: 09/30/2023, Expires: Start: 09-30-2023 End: 12-30-2023 Retinol [Mass/volume] in Serum or Plasma VITAMIN A/RETINOL Lab Routine Gastroesophageal reflux disease with esophagitis without hemorrhage History of bariatric surgery Expected: 09/30/2023, Expires: 12/30/2023 [facility] Comment on above: Expected: 09/30/2023, Expires: Start: 09-30-2023 End: 12-30-2023 Thyrotropin [Units/volume] in Serum or Plasma THYROID STIMULATING HORMONE Lab Routine Gastroesophageal reflux disease with esophagitis without hemorrhage History of bariatric surgery Expected: 09/30/2023, Expires: 12/30/2023 [facility] Comment on above: Expected: 09/30/2023, Expires: Start: 09-30-2023 End: 12-30-2023 VITAMIN B1 (THIAMINE), WHOLE BLOOD VITAMIN B1 (THIAMINE), WHOLE BLOOD Lab Routine Gastroesophageal reflux disease with esophagitis without hemorrhage History of bariatric surgery Expected: 09/30/2023, Expires: 12/30/2023 [facility] Comment on above: Expected: 09/30/2023, Expires: Start: 09-30-2023 End: 12-30-2023 Zinc [Mass/volume] in Serum or Plasma ZINC BLD Lab Routine Gastroesophageal reflux disease with esophagitis without hemorrhage History of bariatric surgery Expected: 09/30/2023, Expires: 12/30/2023 [facility] Comment on above: Expected: 09/30/2023, Expires: Start: 07-29-2023 End: 07-29-2023 ambulatory 07/29/2023 2:30 PM EDT Results Only [facility] [address] [place] [address] [facility] Start: 07-28-2023 End: 10-27-2023 NICOTINE & METAB, UR NICOTINE & METAB, UR Lab Routine Gastroesophageal reflux disease with esophagitis without hemorrhage Expected: 07/28/2023, Expires: 10/27/2023 [facility] Comment on above: Expected: 07/28/2023, Expires: Start: 07-28-2023 End: 10-27-2023 Thyrotropin [Units/volume] in Serum or Plasma THYROID STIMULATING HORMONE Lab Routine Nutritional anemia Expected: 07/28/2023, Expires: 10/27/2023 [facility] Comment on above: Expected: 07/28/2023, Expires: 4 Start: 07-28-2023 End: 10-27-2023 TOXICOLOGY SCREEN, ROUTINE URINE TOXICOLOGY SCREEN, ROUTINE URINE Lab Routine Gastroesophageal reflux disease with esophagitis without hemorrhage Expected: 07/28/2023, Expires: 10/27/2023 [facility] Comment on above: Expected: 07/28/2023, Expires: 4 Start: 10-15-2022 Covid-19 Vaccine () Covid-19 Vaccine () [facility] Start: 10-15-2021 Influenza vaccination INFLUENZA (Season Ended) [place] [facility] Start: 06-29-2017 End: 06-29-2017 [facility]ment [facility] Work Phone: Start: 07-02-2016 End: 08-26-2016 *BMP *BMP [employer] Work Phone: Start: 07-02-2016 End: 07-02-2016 Follow Up Appt 1 year Follow Up Appt 1 year [employer] Work Phone: Start: 07-02-2016 End: 07-02-2016 PFM PFM [employer] Work Phone: Start: 07-02-2016 End: 07-26-2016 Transesophageal echocardiogram (MARCEL) Transesophageal echocardiogram (MARCEL) [employer] Work Phone: Start: 06-20-2016 PAP TESTING PAP TESTING [facility] Start: 06-20-2016 Screening for malignant neoplasm of cervix Pap Testing [facility] Start: 06-07-2016 Lipid panel Lipid Screening [facility] Start: 06-07-2016 LIPID SCREEN LIPID SCREEN [facility] Start: 06-27-2015 End: 07-23-2015 Coagulation factor induced.INR assay in platelet poor plasma *PT/INR - Standing Order [employer] Work Phone: Start: 06-15-2015 SHINGRIX VACCINE (1 of 2) SHINGRIX VACCINE (1 of 2) [facility] Start: 03-03-2015 End: 03-04-2015 Coagulation factor induced.INR assay in platelet poor plasma *PT/INR - Standing Order [employer] Work Phone: Start: 03-03-2015 End: 03-03-2015 Follow Up Appt 6 months Follow Up Appt 6 months [employer] Work Phone: Start: 03-03-2015 End: 03-03-2015 PFM PFM [email or web address] Work Phone: Start: 06-20-2014 Screening for malignant neoplasm of cervix Cervical Cancer Screening [facility] Start: 06-13-2014 End: 07-02-2016 Chest x-ray X-Ray, Chest, PA & Lateral [email or web address] Work Phone: Start: 06-13-2014 End: 07-03-2014 Coagulation factor induced.INR assay in platelet poor plasma *PT/INR - Standing Order [email or web address] Work Phone: Start: 06-13-2014 End: 06-13-2014 Echocardiography Echocardiogram (complete) [email or web address] Work Phone: Start: 06-13-2014 End: 06-13-2014 Electrocardiogram, complete EKG (In office) [employer] Work Phone: Start: 06-13-2014 End: 06-13-2014 Follow Up Appt 6 months Follow Up Appt 6 months [employer] Work Phone: Start: 06-13-2014 End: 06-13-2014 PFM PFM [email or web address] Work Phone: Start: 06-07-2014 DIABETES SCREEN DIABETES SCREEN [facility] Start: 11-19-2010 Mammography MAMMOGRAM [facility] Start: 11-19-2010 Screening for malignant neoplasm of breast Mammogram Screening [facility] Start: 2010 COLOGUARD (FIT-DNA) COLOGUARD (FIT-DNA) [facility] Start: 2010 Colonoscopy COLONOSCOPY [facility] Start: 2010 COLORECTAL CANCER SCREENING COLORECTAL CANCER SCREENING [facility] Start: [address] COLONOGRAPHY [facility] Start: 2010 FECAL OCCULT BLOOD FECAL OCCULT BLOOD [facility] Start: 2010 Screening for malignant neoplasm of colon [facility] Start: 2010 SIGMOIDOSCOPY SIGMOIDOSCOPY [facility] Start: 06-15-2002 Urine microalbumin profile DTAP,TDAP,TD (1 - Tdap) [facility] Start: 06-15-1995 HPV TESTING HPV TESTING [facility] Start: 06-15-1995 Screening for malignant neoplasm of cervix HPV Testing [facility] Start: 1984 Hepatitis B Vaccine (1 of 3 - 19+ 3-dose series) Hepatitis B Vaccine (1 of 3 - 19+ 3-dose series) [facility] Start: 06-15-1983 ANNUAL PCP TEAM CHRONIC DISEASE VISIT ANNUAL PCP TEAM CHRONIC DISEASE VISIT [facility] Start: 06-15-1983 BP CONTROLLED (<130/80) BP CONTROLLED (<130/80) [facility] Start: 06-15-1983 HEPATITIS C SCREENING HEPATITIS C SCREENING [facility] Start: 06-15-1983 Hepatitis C screening Hepatitis C Screening [facility] Start: 06-15-1983 HIV SCREENING HIV SCREENING [facility] Start: 06-15-1983 HIV screening HIV Screening [facility] Start: 1970 COVID-19 VACCINE (#1) COVID-19 VACCINE (#1) [facility] Helicobacter pylori Ag [Presence] in Stool by Immunoassay H PYLORI AG BY EIA,STOOL Microbiology Routine Helicobacter pylori infection Ordered: 05/17/2023 [facility] Work Phone: Comment on above: Ordered: 05/17/2023 Helicobacter pylori Ag [Presence] in Stool by Immunoassay HELICOBACTER PYLORI ANTIGEN BY EIA, STOOL Microbiology Routine Helicobacter pylori infection Ordered: 05/27/2023 [facility] Work Phone: Comment on above: Ordered: 05/27/2023 Ova OR parasites identification [facility] Patient referral [facility] Work Phone: Radionuclide gastric emptying study [facility] Urine culture [facility] End: 08-26-2024 US Abdomen RUQ US ABD RIGHT UPPER QUADRANT Radiology Routine Gastroesophageal reflux disease with esophagitis without hemorrhage 1 Occurrences starting 07/28/2023 until 08/26/2024 [facility] Work Phone: Comment on above: 1 Occurrences starting 07/28/2023 until 08/26/2024 [facility] Immunizations Immunization Date Immunization Notes Care Provider [employer] [facility] 12-07-2023 rabies vaccine, for intramuscular injection SHABBIR STAVROU Work Phone: [facility] 11-30-2023 rabies vaccine, for intramuscular injection SHABBIR STAVROU Work Phone: [facility] 11-26-2023 rabies vaccine, for intramuscular injection SHABBIR STAVROU Work Phone: [facility] 11-23-2023 rabies immune globulin SHABBIR S TAVROU Work Phone: [facility] 11-23-2023 rabies vaccine, for intramuscular injection SHABBIR STAVROU Work Phone: [facility] [facility] influenza, seasonal, injectable, preservative free SHABBIR STAVROU Work Phone: [facility] 04-01-2023 tetanus toxoid, redu roscoe diphtheria toxoid, and acellular pertussis vaccine, adsorbed CARMEN MARES MD [facility] 11-09-2022 influenza virus vacc ine, unspecified formulation Jayashree Hernandez MD Work Phone: [facility] 03-18-2020 SARS-CoV-2 (COVID-19 ) mRNA-[address] SHABBIR KAPADIA MD [facility] 02-20-2020 SARS-CoV-2 (COVID-19 ) mRNA-[address] SHABBIR KAPADIA MD [facility] Comment on above: Result Comment: 2021: [id number] 11-14-2018 Influenza virus vaccine [facility] 10-03-[address] SHABBIR KAPADIA MD [facility] 04-29-[address] SHABBIR KAPADIA MD [facility] 03-05-2017 tetanus toxoid, redu roscoe diphtheria toxoid, and acellular pertussis vaccine, adsorbed DR SHABBIR KAPADIA MD [facility] 09-23-2015 pneumococcal conjuga te vaccine, [address] SHABBIR KAPADIA MD [facility] 09-23-2015 tetanus toxoid, redu roscoe diphtheria toxoid, and acellular pertussis vaccine, adsorbed DR SHABBIR KAPADIA MD [facility] 09-23-2015 zoster vaccine, live DR SHABBIR KAPADIA MD [facility] 12-10-2014 influenza, injectabl e, quadrivalent, preservative free [facility] 03-21-2014 tetanus toxoid, redu roscoe diphtheria toxoid, and acellular pertussis vaccine, adsorbed [facility] 11-14-2013 Influenza virus vaccine [facility] 11-14-2012 influenza virus vacc ine, unspecified formulation DR SHABBIR KAPADIA MD [facility] 10-25-2012 tetanus toxoid, redu roscoe diphtheria toxoid, and acellular pertussis vaccine, adsorbed DR SHABBIR KAPADIA MD [facility] 11-21-2009 influenza virus vacc ine, unspecified formulation Eric Huff MD Work Phone: [facility] Work Phone: 12-04-2008 influenza virus vacc ine, unspecified formulation Eric uHff MD Work Phone: [facility] Work Phone: 2002 tetanus and diphther ia toxoids, adsorbed, preservative free, for adult use (2 Lf of tetanus toxoid and 2 Lf of diphtheria toxoid) Eric Huff MD Work Phone: [facility] Work Phone: Payers Date Payer Category Payer Self-pay [id number] 2023 Private Health Insurance [id number] 2022 Unknown [id number] 2022 Unknown [id number] 2018 Unknown 2016 Unknown [id number] 2010 Unknown [employer] PPO OOS [id number] 2010-Present [phone] [address] [place] [address] PPO [id number] 2003 Private Health Insurance [id number] .[id number] .[id number] 2003 Unknown [id number] 2003 Unknown [id number] 1965 Unknown [id number] 2.16.840.1.290610.3.579.2.7 17 1965 Unknown [id number] 2.16.840.1.165706.3.579.2.3 56 1965 Unknown [id number] 2.16.840.1.571140.3.579.2.6 1965 Unknown [id number] 2.16.840.1.578727.3.579.2.6 1965 Unknown [id number] 2.16.840.1.107048.3.579.2.6 1965 Unknown [id number] 2.16.840.1.517925.3.579.2.6 1965 Unknown [id number] 2.16.840.1.496339.3.579.2.6 1965 Unknown [id number] 2.16.840.1.271169.3.579.2.6 1965 Unknown [id number] 2.16.840.1.451237.3.579.2.6 1965 Unknown [id number] 2.16.840.1.900078.3.579.2.6 27 Private Health Insurance [facility] [id number] Unknown [facility] MHS DO NOT USE 22 [id number] Unknown [id number] 2.16.840.1.227804.3.579.2.4 62 Unknown [id number] 2.16.840.1.631802.3.579.2.4 62 Unknown [id number] 2.16.840.1.180716.3.579.2.4 62 Unknown [id number] 2.16.840.1.517325.3.579.2.4 62 Unknown [id number] 2.16.840.1.371349.3.579.2.4 62 Unknown [id number] 2.16.840.1.245522.3.579.2.4 62 Unknown [id number] 2.16.840.1.513572.3.579.2.4 62 Unknown [id number] 2.16.840.1.226097.3.579.2.4 62 Unknown [id number] 2.16.840.1.989927.3.579.2.4 62 Unknown [id number] 2.16.840.1.077209.3.579.2.4 62 Unknown [id number] 2.16.840.1.364623.3.579.2.4 62 Unknown [id number] 2.16.840.1.185423.3.579.2.4 62 Unknown [id number] 2.16.840.1.115269.3.579.2.4 62 Unknown [id number] 2.16.840.1.091589.3.579.2.4 62 Unknown [id number] 2.16.840.1.958358.3.579.2.4 62 Unknown [id number] 2.16.840.1.813822.3.579.2.4 62 Unknown [id number] 2.16.840.1.396823.3.579.2.4 62 Unknown [id number] 2.16.840.1.401064.3.579.2.4 62 Unknown [id number] 2.16.840.1.887451.3.579.2.4 62 Unknown [id number] 2.16.840.1.942658.3.579.2.4 62 Unknown [id number] 2.16.840.1.664973.3.579.2.4 62 Unknown [id number] 2.16.840.1.232856.3.579.2.4 62 Unknown [id number] 2.16.840.1.639924.3.579.2.4 62 Unknown [id number] 2.16.840.1.737075.3.579.2.4 62 Unknown [id number] 2.16.840.1.480687.3.579.2.4 62 Unknown [id number] 2.16.840.1.815160.3.579.2.4 62 Unknown [id number] 2.16.840.1.369801.3.579.2.4 62 Unknown [id number] 2.16.840.1.417702.3.579.2.4 62 Unknown [id number] 2.16.840.1.318724.3.579.2.4 62 Unknown [id number] 2.16.840.1.410427.3.579.2.4 62 Unknown [id number] 2.16.840.1.279844.3.579.2.4 62 Unknown [id number] 2.16.840.1.914175.3.579.2.4 62 Unknown [id number] 2.16.840.1.812518.3.579.2.4 62 Unknown [id number] 2.16.840.1.175958.3.579.2.4 62 Unknown [id number] 2.16.840.1.469607.3.579.2.4 62 Unknown [id number] 2.16.840.1.459506.3.579.2.4 62 Unknown [id number] 2.16.840.1.351417.3.579.2.4 62 Unknown [id number] 2.16.840.1.024989.3.579.2.4 62 Unknown [id number] 2.16.840.1.538581.3.579.2.4 62 Social History Date Type Detail Facility Start: 02-02-2020 End: 03-28-2024 Tobacco smoking status Never smoked tobacco (finding) [facility] Sex Assigned At Sex [facility] Start: 09-07-2014 End: 10-28-2023 Alcohol intake Current non-drinker of alcohol (finding) [facility] Start: 1965 Sex Assigned At Not on file [facility] Start: 03-11-2023 End: 10-28-2023 History of Social function [facility] Start: 03-11-2023 End: 10-28-2023 Tobacco use panel [facility] National Score (1-100), lower number is lower risk 64 [facility] Start: 02-03-2020 Tobacco smoking status NHIS Unknown if ever smoked [facility] Start: 07-15-2019 None [facility] Start: 04-09-2019 Alone [facility] Start: 06-13-2020 Non-smoker [facility] Start: 1965 Sex Assigned At Female [facility] Start: 04-20-2024 End: 05-24-2024 Sex Female (finding) [facility] NEGATED: Highlighted row Not [facility] Medical Equipment Procedure Code Equipment Code Equipment Original Text Equipment Identifier Dates EGD, with monitored anesthesia care Gastrointestinal endoscopic clip, long-term, non-bioabsorbable [id number] FDA Start: 03-28-2024 [facility] mechanical heart valve FDA Start: 05-28-2009 [facility] mechanical heart [facility] FDA Start: 05-28-2009 [facility] mechanical heart [facility] FDA Start: 05-28-2009 [facility] mechanical heart [facility] FDA Start: 05-28-2009 [facility] mechanical heart [facility] FDA Start: 05-28-2009 [facility] mechanical heart [facility] FDA Start: 05-28-2009 [facility] mechanical heart [facility] FDA Start: 05-28-2009 [facility] mechanical heart [facility] FDA Start: 05-28-2009 Goals Date Patient Goal Desired Activity /State Personal health goal Functional Status Date Assessment Result Facility 03-29-2024 Functional status Ambulates [facility] Work Phone: 04-01-2023 Functional Status Up ad elijah [facility] 02-25-2023 Functional Status Repositions self [facility] 02-25-2023 Functional Status Maintained [facility] 12-07-2022 Functional Status Independent [facility] 12-07-2022 Functional Status Standard Safet y ID band on, Call device within reach, Bed in low position, Wheels locked, Upper/Half-Length side-rails up, Phone within reach, personal items within reach, Bedside Cart Locked, Visitor at bedside [facility] 08-12-2022 Functional Status Assistive Device None A [facility] 08-12-2022 Functional Status ID band on, Call device within reach, Bed in low position, Wheels locked, Upper/Half-Length side-rails up [facility] 06-04-2022 Functional Status Room check performed [facility] 06-04-2022 Functional Status [facility] 06-04-2022 Functional Status [facility] 06-03-2022 Functional Status [facility] 06-03-2022 Functional Status Patient Identi fied Identification band, Verbal [facility] 06-03-2022 Functional Status Maintained [facility] 06-03-2022 Functional Status [facility] 06-03-2022 Functional Status [facility] 06-02-2022 Functional Status Sensory Deficits None A [facility] 02-11-2022 Functional Status ID band on, Call device within reach, Bed in low position, Wheels locked, Bedside Cart Locked, Safety level maintained [facility] 12-15-2021 Functional Status ID band on, Call device within reach, Bed in low position, Wheels locked [facility] 11-19-2021 Functional Status Standard Safet y ID band on, Call device within reach, Bed in low position, Wheels locked, Upper/Half-Length side-rails up, Bedside Cart Locked, Safety level maintained [facility] 09-06-2021 Functional Status Independent [facility] 09-06-2021 Functional Status Standard Safet y ID band on, Call device within reach, Bed in low position, Wheels locked, Upper/Half-Length side-rails up, Phone within reach, personal items within reach, Assistive devices within reach, Toileting device within reach, Bedside Cart Locked, Visitor at bedside, Safety level maintained [facility] Mental Status Date Assessment Result Facility 04-19-2024 Cognitive function Voice/Name [facility] Work Phone: 03-29-2024 Cognitive function Voice/Name [facility] Work Phone: 04-01-2023 Mental Status Oriented x 4 [facility] 02-25-2023 [facility] 12-07-2022 Mental Status Orientation Oriented x 4 [facility] 12-07-2022 Mental Status [facility] 08-12-2022 Mental Status Orientation Oriented x 4 [facility] 08-12-2022 Mental Status [facility] 06-04-2022 Mental Status [facility] x [facility]04[facility]-03-2022 Mental Status [facility] 06-03-2022 Mental Status [facility] 02-11-2022 Mental Status Oriented x 4 [facility] 12-15-2021 Mental Status Orientation Oriented x 4 [facility] 11-19-2021 Mental Status Orientation Oriented x 4 [facility] 09-06-2021 Mental Status Orientation Oriented x 4 [facility] 09-06-2021 Mental Status [facility] Clinical Notes 01-14-2021 to 04-19-2024 Note Date & Type Note Facility 04-19-2024 Radiology Diagnostic study note [facility] Imaging Services [address] [place] [id number] Abdomen/Pelvis WITH Contrast MR#: [id number] Acct: [id number] Name: GARDENIA MUJICA MELONY Rep #: [id number] : 1965 F 58 From: Edwige Mansfield MD PCP: Dr. Marcel Moya MD Status: REG C MELO Study:Abdomen/Pelvis WITH Contrast Date of Ex am: 04/19/24 Exam# [id number] Ordering Dr: Marcel Moya MD PROCEDURE: ABDOMEN/PELVIS WITH CONTRAST REASON FOR EXAM: Unspecified abdominal pain. Per technologist report, diarrhea x3 weeks. TECHNIQUE: CT abdomen and pelvis was performed with IV contrast. Multiplanar reformats weregenerated. PO contrast was administered. IV CONTRAST: 98 mL Isovue-300 COMPARISON: 04/05/2024. FINDINGS: Lung bases: Sternotomy. Partially imaged aortic valvular prosthesis. Coronary atherosclerosis and/or stents. Small hiatal hernia. Fluid in the distal esophagus suggesting gastroesophageal reflux. Liver: Unremarkable. Spleen: Mild splenomegaly, 13.5 cm. Tiny hypodensity inferolaterally, too smallto characterize, likely a cyst or hemangioma in the absence of known malignancy, also present 02/03/2020 but increased in conspicuity. Gallbladder: Cholecystectomy. Pancreas: Unremarkable. Adrenals: Unremarkable. Kidneys: Unremarkable. Bowel: Jose Ramon-en-Y gastric bypass.. The gastrojejunostomy and jejunojejunostomy are not well seen however the configuration is similar to prior. Similarly distended gastric pouch. Contrast noted to be within the excluded stomach and does not appear to have refluxed retrograde from the jejunal jejunostomy given that the duodenum isnot opacified. Opacification of the gastric pouch also present to a lesser degree. No bowel dilatation or convincing inflammation. Liquid contents of the colon suggesting malabsorption/diarrhea. Oral contrast reaches the level of the colon. Normal caliber appendix. Lymph nodes: Unremarkable. Vasculature: Atherosclerosis.. Peritoneum: Trace pelvic free fluid, decreased from prior. Bladder: Underdistended and suboptimally evaluated, grossly unremarkable. Reproductive Organs: Hysterectomy. Tubal ligation clips. Body Wall: Operative changes. Tiny fat containing midline supraumbilical presumably incisional hernia. Bones: Mild spondylosis. Grade 1 anterolisthesis L5-S1 is likely degenerative. Partially imaged left femoral intramedullary hardware. CT/Abdomen/Pelvis WITH Contrast IMPRESSION: 1. Liquid contents of the colon suggesting malabsorption/diarrhea. No convincing inflammation to suggest colitis. 2. Jose Ramon-en-Y gastric bypass with suspected reversal. If reversal has not been performed, findings suggest gastrogastric fistula. Distention of the gastric pouch is noted and could suggest some degree of stenosis at the reversal site if reversal has been performed, however the appearance is similar to prior. Correlate with surgical history. 3. Trace nonspecific pelvic free fluid, potentially physiologic if the patient is premenopausal. 4. Mild splenomegaly. 5. Additional description as above. Reading Location: [id number] CC: Dr. Marcel Moya MD ~ Sql Programmer: Signed [facility] 04-17-2024 Radiology Diagnostic study note [facility] Imaging Services [address] [place] [address] ABD Limited w/ Elastography MR#: [id number] Acct: [id number] Name: GARDENIA MUJICA Rep #: [id number] : 1965 F 58 From: Ravindra Hernandes MD PCP: Dr. Marcel Moya MD Status: REG C MELO Study:ABD Limited w/ Elastography Date of Exa m: 04/17/24 Exam# [id number] Ordering Dr: Marcel Moya MD PROCEDURE: ABD LIMITED W/ ELASTOGRAPHY REASON FOR EXAM: Fatty infiltration of the liver. COMPARISON: None. TECHNIQUE: Right upper quadrant abdominal ultrasound. Boom ElastQ Imaging shear wave elastography for non-invasive assessment of liver tissue stiffness. Boom EPIQ Elite. FINDINGS: LIVER: Size: Enlarged (hepatomegaly) Length: 18.9 cm cm Echotexture: Diffusely echogenic suggesting fatty infiltration Contour: Normal Lesions: None identified Elastography: EQI Med: 9.2 kPa EQI Med Araceli: 1.72 m/s IQR/Med: 8.8 %* GALLBLADDER: Surgically absent. COMMON BILE DUCT: Normal it measures 6 mm. PANCREAS: Normal Visualized portions of the right kidney are unremarkable. No right upper quadrant ascites. US/ABD Limited w/ Elastography IMPRESSION: MODERATE TO SEVERE HEPATIC FIBROSIS Reference Values: SRU <1.37 m/s (5.7kPa): No to mild fibrosis 1.37 m/s - 2.2 m/s: Moderate to severe fibrosis >2.2 m/s (15kPa): Significant fibrosis / cirrhosis METAVIR Score F2 or higher: 1.34 m/s (5.7kPa) F3 or higher: 1.55 m/s (7.3kPa) F4: 1.80 m/s (10kPa) * If the IQR/Med is >30%, the variance in the measurements is a large and the accuracy of the measurement may be in question. Reading Location: [id number] CC: Dr. Marcel Moya MD ~ Sql Programmer: Signed [facility] 03-29-2024 Note [facility] Medical Records Department [address] [place] [address] Discharge Summary 03/29/24 1508 MR#: [id number] Acct: [id number] Name: GARDENIA MUJICA Rep #: [id number] : 1965 58 From: Mejia Wheeler DO PCP: Dr. Marcel Moya MD Status:DIS IN Location: [facility] [id number] Providers Date of Admission: 03/28/24 Date of Discharge: 03/29/24 Primary Care Physician: Dr. Marcel Moya MD Consultations 03/28/24 11:27 Consult: Gastroenterology Routine Consulting Provider: [facility] Reason for Consult: upper GI bleed EMERGENT Consult: No MD Notified: Yes Date Notified: 03/28/24 Time Notified: 10:41 Method of Notification: Verbal Reason For Visit: GI BLEED Diagnosis Discharge Diagnosis (1) Acute upper GI bleeding: Status: Acute Code(s): K92.2 - Gastrointestinal hemorrhage, unspecified Plan 1. Acute upper GI bleed secondary to gastric ulcer hemorrhage with chronic use of anticoagulants exacerbating bleed- #2 mechanical aortic valve-patient will need to remain off Coumadin for now, depending on the results of the EGD she may have to be off Coumadin for a few days. #3 PTSD-patient will be given Ativan as needed for anxiety #4 essential hypertension-patient's blood pressure medication will be held for now-it may be resumed after EGD. #5 chronic anticoagulant usage due to mechanical heart valve Total clinical time spent by myself addressing patient's medical issues, reviewing all of her data, and collaborating with patient's care team: 75 minutes Medications at Discharge Home Medications amlodipine 5 mg tablet 5 mg PO DAILY blood pressure 01/28/24 pantoprazole 40 mg tablet,delayed release 40 mg PO BID reflux 01/28/24 hydroxyzine HCl 10 mg tablet 10 mg PO QHS SLEEP 03/28/24 warfarin 3 mg tablet 3 mg PO SUTUTHSA BLOOD THINNER 03/28/24 warfarin 3 mg tablet (Jantoven) 4.5 mg PO MOWEFR BLOOD THINNER 03/28/24 Hospital Course Operations None Procedures EGD Summary of Care Provided Minutes Spent on Discharge: 31 Hospital Course: This 58-year-old white female was seen in the emergency room at [facility] after she had vomiting at home with coffee-ground emesis. Patient is a chronic user of anticoagulants due to mechanical heart valve. Lab obtained in the emergency room showed her hemoglobin to be 14, chemistry profile was unremarkable, INR was 2.6. NG tube was inserted which returned coffee-ground material. Patient was admitted to PCU and placed on a Protonix drip, she underwent an EGD later that day which showed gastric ulcers 1 with a visible vessel. NG tube was removed and patient did not have any further bleeding issues during her hospitalization. On 03/29/2024, patient was seen and examined: On examination she appeared in good health and spirits, she does not appear to be in any distress. Vital signs as documented. Skin warm and dry and without overt rashes. Neck without JVD, thyroid appears normal, trachea is midline, neck is supple. Lungs clear, normal air movement was noted. Heart exam notable for regular rhythm, normal sounds and absence of murmurs, rubs or gallops. Abdomen unremarkable and without evidence of organomegaly, masses, or abdominal aortic enlargement, bowel sounds are present in all 4 quadrants, no abdominal tenderness was noted. Extremities nonedematous, no cyanosis was noted, no clubbing was noted. Neuro: Cranial nerves II through XII are grossly intact, no focal motor deficits were noted, sensation to light touch and pinprick is intact, motor exam 5/5 throughout. Psych: Patient is alert and oriented x3, she does not appear anxious or depressed, she does not appear agitated. On 03/29/2024, patient was seen and examined and felt to be stable for discharge home. Weight / BMI Weight Weight: 81.5 kg Body Mass Index (BMI) 30.8 ABG / Lab / Microbiology Data 03/28/24 22:56 03/28/24 08:49 Laboratory: Laboratory Results - last 24 hr 03/28/24 15:45: Hgb 13.6, Hct 39.0 03/28/24 19:31: Hgb 13.0, Hct 37.9 03/28/24 22:56: Hgb 12.7, Hct 36.7 L 03/29/24 06:41: PT 29.6 H, INR 2.7 D/C Instructions Discharge Diet: No restrictions Weight Bearing Status: Full weight bearing DC O2, CPAP, BIPAP Needs Home O2 Discharge instructions: No Meaningful Use Info Meaningful Use Meaningful Use Diagnoses (Choose all that apply): None applicable Ischemic Stroke Statin Dosing Therapy Reference: STATIN DOSE THERAPY REFERENCE: * Patients > 75 years receive moderate or high dose statin therapy. * Patients 75 years or YOUNGER should receive HIGH intensity statin dose unless contraindicated. You will be required to document reason for non-treatment if statin daily dose does not meet guidelines. HIGH DOSE STATIN THERAPY DAILY Atorvastatin > than or = to 40 (more content not included)... [facility] 03-28-2024 Evaluation note Diagnosis Onset Date Resolution Anxiety chronic March 28, 2024 10:37am assisted current use of anticoagulant chronic March 28 10:37am Acute upper GI bleeding inactive [facility] 2024 10:37am [facility] Work Phone: [phone] Evaluation note* Diagnosis Onset Date Resolution Status Admit Date Leaking of urine acute January 28, 2024 8:13am Left low back pain acute Decemb er 2023 8:13am Urine frequency acute January 28, 2024 8:13am Gastroparesis acute February 1:35pm Anxiety chronic March 28, 2024 10:37am assisted current use of anticoagulant [facility] March 28 10:37am Acute upper GI bleeding inactive [facility] 2024 10:37am [facility] Work Phone: [phone] 314-233312-02-2024 Miscellaneous Notes* Telephone Encounter - Mikey Carrion RN - 01/16/2024 11:51 AM EST MDT: Patient sent in a MCM that she is stepping out due to surgery is not what I want MDT recommendations: Inform pt to reach out if she decides to have the surgery in the future : Update: Dr. Hernandez to call pt to clarify answers to her questions, see what she wants moving forward Will add update after Dr. Hernandez speaks with pt. Mikey Carrion RN, BSN Bariatric Graduate Fellow [facility] encounter Note * Telephone Encounter - Mikey Carrion RN - 01/16/2024 11:51 AM EST MDT: Patient sent in a MCM that she is stepping out due to surgery is not what I want MDT recommendations: Inform pt to reach out if she decides to have the surgery in the future : Update: Dr. Hernandez to call pt to clarify answers to her questions, see what she wants moving forward Will add update after Dr. Hernandez speaks with pt. Mikey Carrion RN, BSN Bariatric Graduate Fellow [facility]09-18-2024 Telephone encounter Note* Telephone Encounter - Ovidio Humphries - 11/02/2023 11:33 AM EDT LVM for pt to call back and schedule with ANODE ADJUSTER Around 11/25/23 Hfmuovrx-Zpykul-SSY[facility]through [facility] GERD-SEE TE 07/31 [facility]09-18-2024 Miscellaneous Notes* Telephone Encounter - Ovidio Humphries - 11/02/2023 11:33 AM EDT LVM for pt to call back and schedule with ANODE ADJUSTER Around 11/25/23 Gtjunjue-Ruhoxr-KVH-through [facility] GERD-SEE TE 07/31 [facility] History of Present illness Narrative* Frederick Colvin APRN.PULMONARY FELLOW - 10/28/2023 2:00 PM EDT [facility]ERY [facility] FOLLOW UP NOTE DISTANCE [facility] VISIT This Team Access Model visit is a virtual encounter. It required patient- provider interaction for the medical decision making as documented below. Consent was obtained to complete today's distance health visit. I have communicated my name and active licensure. The patient's identity and physical location wereverified at the time of this visit. Either the patient or their legal brand representative has been informed of the risks and benefits of -- and alternatives to -- treatment through a remote evaluation andconsents to proceed with the evaluation remotely. HPI: Gardenia Mujica a 58 year old female presents for medically supervised weight loss treatment of her obesity related co morbidities. This individual presents for required visits. Gardenia Mujica weight has decreased since first visit in the program. She is a patient in the [facility] with Dr. Hernandez with a history of VBG with worsening heartburn and acidregurgitation. She is planning to undergo revision of VBG to RYGB to treat medical refractory GERD. Gardenia is doing well with nutritional recommendations. Denies recent illnesses, hospitalizations, and medication changes. She still experiences severe acid reflux daily. Continues remedies as before with not much alleviation. She saw pulmonology recently who mentioned they are okay clearing her. Will reach out to them againfor official clearance. She was cleared by cardiology. [...] Gardenia Mujica is: Further Work-up: EGD: - Nowata-colored mucosa suspicious for short-segment Flaherty's esophagus. Biopsied. [...] bridge her for surgery) -Pulmonary (10/02 at [facility] - req clearance 10/04) -PCP Risk Calculator: [...] - Keep a food journal 5-7x/week (consider LaserGen or Ampulse buddy) and demonstrate meeting protein goal (60-90g protein for females, 70-105g protein for males)- Lean meats, fish, low fat dairy - cottage cheese, Guamanian yogurt, light yogurt, cheese, ricotta cheese, nuts, [...] needs psych and RD clearance. F/u with ANODE ADJUSTER in 4 weeks. Frederick Colvin APRN.CNP Medical Decision Making: Problems: Moderate: 2+ stable chronic illnesses Data: Unique source(s) for external note(s) reviewed: 1 Unique test result(s) reviewed: 1 Assessment requiring an independent historian(s) Medical Decision Making Level: 4 - Moderate documented in this encounterLanc[facility]09-13-2024 NoteHNO ID: [id number] Author: FREDERICK COLVIN APRN.CNP Service: ? Author [...] visit. Either the patient or their legal brand representative has been informed of the risks [...] program. She is a patient in the [facility] with Dr. 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 Biopsied. [...] junction, biopsy: - Gastr (more content not included)...[facility]09-13-2024 Nurse Note* Crystal Valente MA - 10/28/2023 2:00 PM EDT Left message for patient to return call. Crystal Valente MA [facility]09-13-2024 Nurse Note* Crystal Valente MA - 10/28/2023 2:00 PM EDT Left message for patient to return call. Crystal Valente MA documented in this encounterLancaster [facility] Hospital09-13-2024 Instructions* Patient Instructions* Sandrine Humphries RD - 10/28/2023 1:52 PM EDT Chrissy Mujica, It was a pleasure meeting with you [...] 28, 2023 1:52 PM documented in this encounterLancaster [facility] Hospital09-13-2024 History of Present illness Narrative* Sandrine Humphries RD - 10/28/2023 1:30 PM EDT 30 Years Post-op This patient encounter was completed virtually due to COVID-19 (audio/visual) using a secure, HIPPAcompliant video chat software program with the patient's consent. I have communicated my name and active licensure. The patients identity and physical location were verified at the time of this visit. Either the patient or their legal brand representative has been informed of the risks and benefits of --and alternatives to -- treatment through remote evaluation and consents to proceed with the evaluation remotely. Surgery Date/Surgeon:1993 [facility] Deysi Mujica 58 year old female There were [...] Beverages in Diet: 1 pop per day, Lemhi juice Frequent grazing: mostly on the weekends [...] they are not meetings goals post-op at thistime. Will send detailed MCM. The patient meets [...] 50% of the time was spent in counselingand/or coordination of care. Sandrine Humphries RD This note was generated using voice recognition technology and may contain grammatical errors. documented in this encounterLancaster [facility] Hospital09-13-2024 NoteHNO ID: [id number] Author: SANDRINE HUMPHRIES RD Service: ? Author [...] visit. Either the patient or their legal brand representative has been informed of the risks and benefits of -- and alternatives to -- treatment through remote evaluation and consents to proceed with the evaluation remotely. Surgery Date/Surgeon:1993 [facility] Gardenia Mujica 58 year old female There [...] Beverages in Diet: 1 pop per day, Lemhi juice Frequent grazing: mostly on the weekends [...] in counseling and/or coordination of care. Sandrine Humphries, SESAR This note was generated using voice recognition technology and may contain grammatical errors.[facility]09-13-2024 Nurse Note* Crystal Valente MA - 10/28/2023 1:30 PM EDT Left message for patient to return call. Crystal Valente MA [facility]09-13-2024 Nurse Note* Crystal Valente MA - 10/28/2023 1:30 PM EDT Left message for patient to return call. Crystal Valente MA documented in this encounterLancaster Municipal Hospital08-30-2024 History of Present illness Narrative* Nadya Thomas RDMS - 10/14/2023 2:30 PM EDT Radiology Service Progress Note PATIENT NAME: Gardenia Mujica DATE OF SERVICE: October 14, 2023 TIME: 2:14 PM PATIENT IDENTITY VERIFICATION COMPLETED USING TWO (2) IDENTIFIERS: Name and Date of confirmedby patient verbally. FALL SCREENING: Has the patient had 2 falls in the last year or 1 fall with injury or currently using an Ambulatory Assistive Device (Walker, Cane, Wheelchair, Crutches, etc.)? No PATIENT GENDER DATA: Female. status: : No status: NO. PATIENT RELEVANT IMPLANT DATA REVIEWED: Not Applicable PATIENT PRESENTS WITH AN IMPLANTABLE OR ATTACHED SALES RECEPTIONIST: No RADIOLOGY DEPARTMENT: Ultrasound PERIPHERAL IV DATA: Not applicable SIGNED BY: Nadya Thomas RDMS RVDeny October 14, 2023 2:14 PM documented in this encounterLancaster Municipal Hospital08-30-2024 NoteHNO ID: [id number] Author: NADYA THOMAS RDMS Service: ? Author Type: School Health Aide Type: Progress Notes Filed: 10/14/2023 14:14 Note [...] PATIENT PRESENTS WITH AN IMPLANTABLE OR ATTACHED SALES RECEPTIONIST: No RADIOLOGY DEPARTMENT: Ultrasound PERIPHERAL IV DATA: Not applicable SIGNED BY: Nadya Thomas RDMS RVT October 14, 2023 2:14 [facility]08-16-2024 Telephone encounter Note* Telephone Encounter - Mikey Carrion RN - 09/30/2023 2:23 PM EDT Pulmonary Clearance letter sent/faxed to Lsely Chavsi APRN.ANDRZEJ. Mikey Carrion RN [facility]08-16-2024 Miscellaneous Notes* Telephone Encounter - Mikey Carrion RN - 09/30/2023 2:23 PM EDT Pulmonary Clearance letter sent/faxed to Lesly Chavis APRN.ANDRZEJ. Mikey Carrion RN * Telephone Encounter - Mikey Carrion RN - 09/30/2023 2:17 PM EDT Cardiac clearance letter sent/faxed to Aga Spears CNP. Mikey Carrion RN documented in this encounterLancaster Municipal Hospital08-16-2024 Telephone encounter Note * Telephone Encounter - Mikey Carrion RN - 09/30/2023 2:17 PM EDT Cardiac clearance letter sent/faxed to Aga Spears CNP. Mikey Carrion RN [facility]08-16-2024 NoteHNO ID: [id number] Author: JENNIFER SALAS APRN.ANDRZEJ Service: ? Author [...] visit. Either the patient or their legal brand representative has been informed of the risks [...] decreased. She is a patient in the [facility] with Dr. Hernandez with a history of [...] She is scheduled with [facility]ology [facility] the [facility] this month for pre-op clearance. She takes coumadin for history of aortic valve replacement. 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 Biopsied. - Normal duodenal bulb, first portion of the duodenum, second portion of the duodenum and third portion of the duodenum. - Patent vertical banded gastroplasty with a pouch greater than 10 cm (measured from 39 cm to 50 cm) in length and intact staple line and band appears loose. Biopsied the gastric antrum. (more content not included)...[facility]08-16-2024 History of Present illness Narrative* Jennifer Salas, KYE.PULMONARY FELLOW - 09/30/2023 10:56 AM EDT BARIATRIC SURGERY CLINIC FOLLOW UP NOTE DISTANCE HEALTH VISIT This Team Access Model visit is a virtual encounter. It required patient- provider interaction for the medical decision making as documented below. Consent was obtained to complete today's distance health visit. I have communicated my name and active licensure. The patient's identity and physical location wereverified at the time of this visit. Either the patient or their legal brand representative has been informed of the risks and benefits of -- and alternatives to -- treatment through a remote evaluation andconsents to proceed with the evaluation remotely. HPI: Gardenia Mujica a 58 year old female for presents for medically supervised weight loss treatment of her obesity related co morbidities. This individual presents for monthly visits completed as avirtual telephone encounter Gardenia Mujica weight calculation has decreased. She is a patient in the [facility] with Dr. Hernandez with a history of VBG with worsening heartburn and acidregurgitation. She is planning to undergo revision of [...] She is scheduled with [facility]ology [facility] the [facility] this month for pre-op clearance. She takes coumadin for history of aortic valve replacement. 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 Biopsied. [...] Education class: ongoing Clearances: Cardiac(need letter from [facility] with coumadin bridge), Pulmonary (10/02 at [facility]), and PCP Risk Calculator: VTE Risk: On [...] - Keep a food journal 5-7x/week (consider LaserGen or Spotsi) and demonstrate meeting protein goal (60-90g protein for females, 70-105g protein for males)- Lean meats, fish, low fat dairy - cottage cheese, Guamanian yogurt, light yogurt, cheese, ricotta cheese, nuts, [...] she is going to send me a Moz message with the name of her eyeglass inspector so we can send a letter to [...] psychology, cardiology, and pulmonology. Follow up with ANODE ADJUSTER in 4 weeks Jennifer Salas APRN.ANDRZEJ Total time in direct patient contact = 30 min. Greater than 50% of the time was spent in counselingand/or coordination of care. This note was generated using voice recognition technology and may contain grammatical errors. Medical Decision Making: Problems: Moderate: 2+ stable chronic illnesses Data: Unique test result(s) reviewed: 2 Unique test(s) ordered: 1 Assessment requiring an independent historian(s) Risk: Minimal: Minimal risk from testing/treatment Moderate: Drug management Medical Decision Making Level: 4 - Moderate documented in this encounterLancaster [facility] Hospital07-01-2024 Telephone encounter Note * Telephone Encounter - Irene Washington - 08/15/2023 9:33 AM EDT Cardiac clearance letter and EKG request faxed to [facility] Irene Washington [facility]07-01-2024 Miscellaneous Notes* Telephone Encounter - Irene Washington - 08/15/2023 9:33 AM EDT Cardiac clearance letter and EKG request faxed to [facility] Irene Washington documented in this encounterLancaster Municipal Hospital06-17-2024 Telephone encounter Note * Telephone Encounter - Sebastian Flores - 08/01/2023 10:07 AM EDT Images from the original note were not included. [facility]06-17-2024 Miscellaneous Notes* Telephone Encounter - Sebastian Flores - 08/01/2023 10:07 AM EDT Images from the original note were not included. * Telephone Encounter - Sebastian Flores - 08/01/2023 9:48 AM EDT Called LVM to inform her that yes the [facility] insurance will require Pulm and Cardio clearance for bariatric surgery. As I lso look in her Exemplo profile her BMI is too low for bariatric. Gave patient out number incase she wanted to call back with questions. documented in this encounterLancaster Municipal Hospital06-17-2024 Telephone encounter Note * Telephone Encounter - Sebastian Flores - 08/01/2023 9:48 AM EDT Called LVM to inform her that yes the VA insurance will require Pulm and Cardio clearance for bariatric surgery. As I lso look in her Exemplo profile her BMI is too low for bariatric. Gave patient out number incase she wanted to call back with questions. [facility]06-13-2024 Telephone encounter Note* Telephone Encounter - Musa Dey - 07/28/2023 3:02 PM EDT Patient called in asking if Pulmonology clearance is required for their surgery. Patient called the [facility] today and was advised that they could not get in to see a boat repairer untilDeceer - because they have never seen by a boat repairer. Patient must go through VA for all appointments and clearances. Patient was able to get an appointment with their eyeglass inspector because they were already established patient. Patient advised [employer] insurance will in September 2023 - an extension needs to be asked for - please refer to insurance information. Please reach out to the patient with an update. [facility]06-13-2024 Miscellaneous Notes* Telephone Encounter - Musa Dey - 07/28/2023 3:02 PM EDT Patient called in asking if Pulmonology clearance is required for their surgery. Patient called the [facility] today and was [facility] that [facility] have never seen by a boat repairer. Patient must go through [facility] for all appointments and clearances. Patient was able to get an appointment with their eyeglass inspector because they were already established patient. Patient advised [employer] insurance will in September 2023 - an extension needs to be asked for - please refer to insurance information. Please reach out to the patient with an update. documented in this encounterLancaster [facility] Hospital06-13-2024 Telephone encounter Note * Telephone Encounter - Lakeisha Hernandez - 07/28/2023 8:33 AM EDT Set up for moris pearson, RD, [place] of ABD ([id number]) and other [facility] appts ISIS Hernandez / XENIA / Johanna NAPIER - Candelario Napier #2 / Mary / XENIA / Johanna MO - Donald [facility]06-13-2024 Miscellaneous Notes* Telephone Encounter - Lakeisha Field - 07/28/2023 8:33 AM EDT Set up for moris pearson, SESAR, [place] of ABD ([id number]) and other [facility] appts ISIS Hernandez / XENIA / 6 KARTHIKEYAN - Candelario Maynard - Karthikeyan #2 / Mary / XENIA / 6 MO - Donald documented in this encounterLancaster Municipal Hospital06-13-2024 History of Present illness Narrative* Jayashree Hernandez MD - 07/28/2023 8:04 AM EDT SURGICAL SERVICES HISTORY AND PHYSICAL EXAMINATION SERVICE [...] our system as it was completed in [place]. Today she reports that despite the negative [...] year history of nausea, emesis, bloating, abdominal pain.These symptoms are present constantly. Eating makes the symptoms much worse and she states that theabdominal fullness is visible. She believes that oral [...] a GES in the past at the [facility] [place]. She does not recall the results, but she believes it was slow and she was diagnosed with gastroparesis Social: denies use of tobacco, etoh, or marijuana. 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 Curiel LIGATE FALLOPIAN TUBE 1991 [place] PAST SURGICAL HISTORY OF 2004 ORI femur, [facility] TOTAL ABDOMINAL HYSTERECT W/WO RMVL TUBE OVARY 2004 Hysterectomy, [facility] -- ovaries intact, Dr. Luz Garcia in [place] FAMILY HISTORY: FAMILY HISTORY Problem Relation Age of Onset Coronary Artery Disease Mother CAD, no VA; first diagnosed mid-50's? Coronary Artery Disease Maternal Grandmother VA, CAD Coronary Artery Disease Maternal Grandfather VA, CAD None Father UNKNOWN --- Colon Cancer [...] GERD findings on the recent LOPEZ testing. Inorder to prepare for this upcoming surgery I want her to see the bariatric psych and bariatric RD. She will also need to see the bariatric ANODE ADJUSTER to ensure all clearances and testing are [...] 28, 2023 TIME: 8:04 AM PAGER/CONTACT #: [phone] documented in this encounterLancaster Municipal Hospital06-13-2024 NoteHNO ID: [id number] Author: JAYASHREE HERNANDEZ MD Service: ? Author [...] our system as it was completed in [place]. Today she reports that despite the negative [...] a GES in the past at the [facility] in [place]. She does not recall the results, but she believes it was slow and she was diagnosed with gastroparesis Social: denies use of tobacco, etoh, or marijuana. 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 Hernandez GSTR RSTCV W/O BYP OTH/THN [place]-BANDED GSTP 02/14/1993 [place] HEART VALVE REPLACEMENT 05/15/2009 mechanical valve, Aortic root, [facility] in [place] Dr. Curiel LIGATE FALLOPIAN TUBE 1991 [place] PAST SURGICAL HISTORY OF 2004 ORIF femur, [facility] TOTAL ABDOMINAL HYSTERECT W/WO RMVL TUBE OVARY 2004 Hysterectomy, [facility] -- ovaries intact, Dr. Luz Garcia in [place] FAMILY HISTORY: FAMILY HISTORY Problem Relation Age of Onset Coronary Artery Disease Mother CAD, no VA; first diagnosed mid-50's? Coronary Artery Disease Maternal Grandmother [place], CAD Coronary Artery Disease Maternal Grandfather VA, CAD None Father UNKNOWN --- Colon Cancer [...] Once a day) l (more content not included)...[facility]04-26-2024 Telephone encounter Note* Telephone Encounter - Sebastian Flores - 06/10/2023 10:52 AM EDT Called patient to talk about her benefits. Since she had a Gastric Plasty in the early the VA told her that because she is having complications ( GERD ) they would pay for the revision if its billed under GERD. There was not a number to call the VA. But patient did stated they would cover it. [facility]04-26-2024 Miscellaneous Notes* Telephone Encounter - Sebastian Flores - 06/10/2023 10:52 AM EDT Called patient to talk about her benefits. Since she had a Gastric Plasty in the early the VA told her that because she is having complications ( GERD ) they would pay for the revision if its billed under GERD. There was not a number to call the VA. But patient did stated they would cover it. documented in this encounterLancaster Municipal Hospital04-12-2024 Miscellaneous Notes* Telephone Encounter - Lisa Combs MA - 05/27/2023 10:32 AM EDT Checkout notes per Dr. Hernandez this can be virtual Follow-up disposition: Return in about 8 weeks (around 07/22/2023). Patient will call next week to schedule once she reviews her calendar. Lisa Combs MA documented in this encounterLancaster Municipal Hospital04-12-2024 NoteHNO ID: [id number] Author: JAYASHREE HERNANDEZ MD Service: ? Author [...] a GES in the past at the [facility] in [place]. She does not recall the results, but she believes it was slow and she was diagnosed with gastroparesis Social: denies use of tobacco, etoh, or marijuana. 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 Hernandez GSTR RSTCV W/O BYP OTH/THN [place]-BANDED GSTP 02/14/1993 [place] HEART VALVE REPLACEMENT 05/15/2009 mechanical valve, Aortic root, [facility] in [place] Dr. Curiel LIGATE FALLOPIAN TUBE 1991 [place] PAST SURGICAL HISTORY OF 2004 ORIF femur, [facility] TOTAL ABDOMINAL HYSTERECT W/WO RMVL TUBE OVARY 2004 Hysterectomy, [facility] -- ovaries intact, Dr. Luz Garcia in [place] FAMILY HISTORY: FAMILY HISTORY Problem Relation Age of Onset Coronary Artery Disease Mother CAD, no VA; first diagnosed mid-50's? Coronary Artery Disease Maternal Grandmother VA, CAD Coronary Artery Disease Maternal Grandfather VA, CAD None Father UNKNOWN --- Colon Cancer [...] mg by mouth. luz (more content not included)...[facility]04-12-2024 History of Present illness Narrative* Jayashree Hernandez MD - 05/27/2023 10:07 AM EDT SURGICAL SERVICES HISTORY AND PHYSICAL EXAMINATION SERVICE [...] year history of nausea, emesis, bloating, abdominal pain.These symptoms are present constantly. Eating makes the symptoms much worse and she states that theabdominal fullness is visible. She believes that oral [...] a GES in the past at the [facility] in [place]. She does not recall the results, but she believes it was slow and she was diagnosed with gastroparesis Social: denies use of tobacco, etoh, or marijuana. 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 Curiel LIGATE FALLOPIAN TUBE 1991 [place] PAST SURGICAL HISTORY OF 2004 ORIF femur, [facility] TOTAL ABDOMINAL HYSTERECT W/WO RMVL TUBE OVARY 2005 Hysterectomy, [facility] -- ovaries intact, Dr. Luz Garcia in [place] FAMILY HISTORY: FAMILY HISTORY Problem Relation Age of Onset Coronary Artery Disease Mother CAD, no VA; first diagnosed mid-50's? Coronary Artery Disease Maternal Grandmother [place], CAD Coronary Artery Disease Maternal Grandfather VA, CAD None Father UNKNOWN --- Colon Cancer [...] retest for H pylori through a stool sample.She will need to be off of the [...] of VBG to RYGB to address the GERDsymptoms and the positive GERD findings on the [...] of VBG to RYGB to address the GERDsymptoms and the positive GERD findings on the [...] 27, 2023 TIME: 10:08 AM PAGER/CONTACT #: [phone] documented in this encounterLancaster Municipal Hospital04-08-2024 Miscellaneous Notes* Addendum Note - Jennifer Salas, CANVAS SHRINKER.[facility] - 05/23/2023 8:53 AM EDTAddended by: JENNIFER SALAS on: 05/23/2023 08:53 AM Modules accepted: Orders * Telephone Encounter - Jennifer Salas APRN.CNP - 05/23/2023 8:52 AM EDT [facility] Per her request. Jennifer Salas APRN.PULMONARY FELLOW * Telephone Encounter - Irene Washington MA - 05/23/2023 8:43 AM EDT Pr pharmacy called they do not have tetracycline they do have clarithromycin and doxycycline tablets. If you want her to have one of them. Irene Washington MA documented in this encounterLancaster Municipal Hospital04-02-2024 NoteHNO ID: [id number] Author: JENNIFER SALAS APRN.CNP Service: ? Author [...] She will contact the pharmacist at the [place] [facility] who manages her coumadin. I will ask my office to reach out there as well. She is going to call the office back with their phone number. She is aware to not start taking the antibiotics until she speaks with coumadin clinic Jennifer Salas APRN.CNPMaine Medical Center04-02-2024 History of Present illness Narrative* Jennifer Salas APRN.CNP - 05/17/2023 10:54 AM EDT Called outpatient pharmacy, spoke to Andrew- pharmacist about H pylori treatment antibiotics interacting with coumadin. There is no other option that will not increase bleeding risk while on coumadin,so patient may need to have INR monitored more closely and dose adjusted while on these antibiotics. There is no complete contraindication to taking clarithromycin with coumadin. Called patient to review H pylori results and treatment. I relayed information about INR and coumadin to her in regard to antibiotics. She will contact the pharmacist at the [place] [facility] who manages her coumadin. I will ask my office to reach out there as well. She is going to call the officeback with their phone number. She is aware to not start taking the antibiotics until she speaks with coumadin clinic Jennifer Salas APRN.PULMONARY FELLOW [facility] Miscellaneous Notes* [facility] - Mady Perry RT(Yvonne) - 04/22/2023 8:00 AM EST Radiology Service Progress Note PATIENT NAME: Gardenia Mujica DATE OF SERVICE: April 22, 2023 TIME: 8:29 AM PATIENT IDENTITY VERIFICATION COMPLETED USING TWO (2) IDENTIFIERS: Name and Date of confirmedby patient verbally and Name and Date of [...] PATIENT PRESENTS WITH AN IMPLANTABLE OR ATTACHED SALES RECEPTIONIST: No RADIOLOGY DEPARTMENT: General X-ray: Exam(s) Completed: GI/ Procedure(s): Upper GI with barium contrast PERIPHERAL IV DATA: Not applicable SIGNED BY: RT Park(Yvonne) April 22, 2023 8:29 AM documented in this encounterL[facility] Hospital Discharge instructions Patient Education 04/01/2023 09:40:44 Cat Bite Cat Bite A cat bite can cause a wound deep enough to break the skin. In such cases, the wound is cleaned andthen sometimes closed. If the wound is closed [...] for signs of illness. If the pet engineer process won t allow this, contact your local [...] Call your healthcare provider right away. Or returnto the emergency department promptly. All animal bites [...] lymph nodes in the armpit if you werebitten on the hand or arm. This may be a sign of cat-scratch disease (cat-scratch fever). Signs of rabies infection: oHeadache oConfusion oStrange behavior oIncreased salivating or drooling oSeizure Decreased ability to move any body part near the bite area Bleeding that can't be stopped after 5 minutes of firm pressure 5835-9766 [employer]. [address] [place] [address]. All rights reserved. This information is not intended as a substitute for professional medical care. Always follow yourhealthcare professional's instructions. Follow Up Care 04/01/2023 09:19:57 With:[facility] Address: [address] [place] [address]- When:2-4 days [facility] 02-16-2024 Note Discharge Instructions Thank you for allowing [facility] to assist you with your healthcare needs. The following is importantdischarge information regarding your hospital visit. Diagnosis from Today's Visit Cat bite Cat bite: hand What to Do Next Instructions from Your Care Team No qualifying data available. Post Acute Orders No qualifying data available. You Need to Schedule the Following Appointments Follow Up with [facility] When Within 2-4 days Where: [address] [facility] [place] [address]- Allergies NKA Medications Please ask your primary [...] clavulanate potassium (am OK i SARAH in KLAV ue IVAN ate raji TAS ee um) Augmentin What is the most important information [...] pill whole, or break the pill in halfand take both halves one at a time. Tell your doctor if you have trouble swallowing a whole or halfpill. You must chew the chewable tablet before [...] body. Symptoms may include skin rash, fever, swollenglands, muscle aches, severe weakness, unusual bruising, or [...] may report side effects to FDA at [phone]. What other drugs will affect amoxicillin and clavulanate potassium? Tell your doctor about all your other medicines, especially: allopurinol; probenecid; or a blood thinner--warfarin, Coumadin, Jantoven. This list is not complete. Other drugs may affect amoxicillin and clavulanate potassium, including prescription and tbba-nef-ueawytn medicines, vitamins, and herbal products. Not all [...] to ensure that the information provided by [employer]. ('[employer]') is accurate, up-to-date, and complete, but no guarantee is made to that effect. Drug information contained herein may be time sensitive. [facility] information has been compiled for use by healthcare practitioners and consumers in the [place] and therefore [facility] [facility] does not warrant that uses outside of the [place] are appropriate, unless specifically indicated otherwise. [employer] drug information does not endorse drugs, diagnose patients or recommend therapy. [employer] drug information isan informational resource designed to assist licensed healthcare practitioners in caring for their p atients and/or to serve consumers viewing this service as a supplement to, and not a substitute for, the expertise, skill, knowledge and judgment of healthcare practitioners. The absence of a warningfor a given drug or drug combination in no way should be construed to indicate that the drug or drug combination is safe, effective or appropriate for any given patient. [facility] [facility] does not assume any responsibility for any aspect of healthcare administered with the aid of information [facility] provides. The information contained herein is not intended to cover all possible uses, directions, precautions, warnings, drug interactions, allergic reactions, or adverse effects. If you have questions about the drugs you are taking, check with your doctor, nurse or pharmacist. Copyright 0744-1191 [employer]. Version: 14.. Revision Date: 11/20/2021. Education Materials Cat Bite A cat bite can cause a wound deep enough to break the skin. In such cases, the wound is cleaned andthen sometimes closed. If the wound is closed [...] for signs of illness. If the pet engineer process won t allow this, contact your local [...] Call your healthcare provider right away. Or returnto the emergency department promptly. All animal bites [...] lymph nodes in the armpit if you werebitten on the hand or arm. This may be a sign of cat-scratch disease (cat-scratch fever). Signs of rabies infection: oHeadache oConfusion oStrange behavior oIncreased salivating or drooling oSeizure Decreased ability to move any body part near the bite area Bleeding that can't be stopped after 5 minutes of firm pressure 5757-8743 [employer] [address] [place] [address], [place] [address]. All rights reserved. This information is not intended as a substitute for professional medical care. Always follow yourhealthcare professional's instructions. Additional Information VACCINATE! IT SAVES LIVES! Members of the community who have not yet received the COVID-19 vaccine and would like to receive it can visit one of [facility] vaccine clinics. There are many vaccine clinic locations within the [facility]. For locations and available times, please visit www.[email or web address].[place].gov/. It is important to note that some COVID mobile vaccine clinics are held outdoors and may be canceled in rainy or stormy conditions. To learn more about pediatric vaccinations (ages 5-11), we invite you to visit the [facility] webpage. https://www.[facility].org/pages/5483-Qvska-Uizxpuwwffl-Uonuufmkro-Gmlkd-Qqz stions.htmlTo learn more about the COVID-19 vaccine, we invite you to visit the CDC website for a list of frequently asked questions. https://www.cdc.gov/coronavirus/2019-ncov/vaccines/faq.html [facility] Patient Portal Access Instructions: Stay connected with your healthcare team and access your personal medical information anytime with the [facility] Patient Portal. If you would like a full copy of your medical records please contact the [facility] Medical Records Department Tuesday through Tuesday between 8a.m. and 4:30p.m. Please follow the directions below to access the portal: 1.Access the email account you provided upon registration to the [facility].2.Look for an invitation email from [facility].3.Open the email and access the invitation link: Accept Invitation to [facility]4.Fill in the required avitia to create your [...] you will allow to register on the [facility] Patient Portal for access to your information. You can also access the [facility] Patient Portal on the dianboom. Simply click on Health Records under [employer] and then click on the [facility] logo. HOW TO SAFELY DISPOSE OF PRESCRIPTION [...] Call your local pharmacy or go to [email or web address] to find one close to you.3.Make use of household items: Use cat litter or old coffee grounds to dispose medications if other options arenot available. Mix your drugs with these household products, seal them in an airtight container andthrow it into the garbage. Call [facility]: [phone] to be sure your drugs can be [...] aware that I should contact my doctor. 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 Author Type: Nurse Clinician Type: Progress Notes Filed: 03/11/2023 10:16 Note Text: Patient given written information about EGD and Lopez pH probe and the prep instructions. Verbally discussed and reviewed the information with the patient. All of patient's questions were answered. Roberto Hemphill [facility]01-26-2024 NoteHNO ID: [id number] Author: HMEPHILL, ROBERTO, RN Service: ? Author Type: Nurse Clinician Type: Progress Notes Filed: 03/11/2023 10:09 Note Text: .[facility]01-26-2024 NoteHNO ID: [id number] Author: JAYASHREE HERNANDEZ MD Service: ? Author Type: Physician Type: Progress Notes Filed: 03/11/2023 09:55 Note Text: SURGICAL SERVICES HISTORY AND PHYSICAL EXAMINATION SERVICE DATE: 03/11/2023 SERVICE TIME: 9:26 AM PRIMARY CARE PHYSICIAN: [facility] SUBJECTIVE CHIEF COMPLAINT: nausea HISTORY OF PRESENT ILLNESS: Ms. Mujica is a 57 year old female with a PMH of obesity (BMI 32.89), NATO (getting fitted for CPAP), aortic regurgitation, PTSD (severe), and GERD who presents for surgical consultation. Surgical consultation was requested by the patient's referring physician, [facility] in [place]. A copy of this consultation note will [...] a GES in the past at the [facility] in [place]. She does not recall the results, but [...] etoh, or marijuana. 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 Curiel LIGATE FALLOPIAN TUBE 1991 [place] PAST SURGICAL HISTORY OF 2004 ORIF femur, [facility] TOTAL ABDOMINAL HYSTERECT W/WO RMVL TUBE OVARY 2004 Hysterectomy, LUZ -- ovaries intact, Dr. Luz Garcia in [place] FAMILY HISTORY: FAMILY HISTORY Problem Relation Age of Onset Coronary Artery Disease Mother CAD, no VA; first diagnosed mid-50's? Coronary Artery Disease Maternal Grandmother VA, CAD Coronary Artery Disease Maternal Grandfather VA, CAD None Father UNKNOWN --- Colon Cancer [...] heartburn, nausea and vomiting. 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 [facility] 01-12-2024 Hospital Discharge instructions Patient Education [...] including vitamins, herbs, eye drops, creams, and rzst-izj-qdzbhfw medicines. Any blood disorders you have. Any [...] 10/03/2013 Document Revised: 04/27/2018 Document Reviewed: 12/20/2016 [employer] Patient Education 2020 [employer] 02/25/2023 11:48:55 Colonoscopy, Adult, Care After, Kvak-xe-Yedh Colonoscopy, Adult, Care After This sheet gives [...] are soft and easy to digest. Take eiia-dom-nqhmrnd or prescription medicines only as told by [...] 03/05/2011 Document Revised: 12/01/2017 Document Reviewed: 10/25/2016 [employer] Patient Education 2020 [employer]. 02/25/2023 11:48:48 Monitored Anesthesia Care, Care After [...] before eating solid foods. General instructions Take mvte-mew-dctnvbh and prescription medicines only as told by [...] 05/23/2016 Document Revised: 05/01/2018 Document Reviewed: 05/23/2016 [employer] Patient Education 2020 [employer]. 02/25/2023 11:48:42 Monitored Anesthesia Care, Care After [...] before eating solid foods. General instructions Take jujx-lpx-yuqyenm and prescription medicines only as told by [...] 05/23/2016 Document Revised: 05/01/2018 Document Reviewed: 05/23/2016 [employer] Patient Education [employer] Follow Up Care 01/12/2023 07:57:56 With:CHET AVILA MD Address: [address] [address]- [phone] When: Unknown Comments:CALL DR AVILA WITH ANY QUESTIONS OR CONCERNS YOU MAY NEED A CAPSULE ENDOSCOPY . YOU MAY HAVE A CHRONIC BLEED SOMEWHERE. RESART YOUR COUMADIN AND HEPARIN WAS INSTRUCTED BY DR AVILA. TAKE AT LEASTTWO FLINTSTONE VITAMINS WITH IRON DAILY. YOU SHOULD ACTUALLY BE GETTING 60MG OF IRON A DAY. GO TO THE EMERGENCY ROOM WITH ANY URGENT CONCERNS. [facility] 01-12-2024 Note Discharge Instructions Thank you for allowing [facility] to assist you with your healthcare needs. The following is importantdischarge information regarding your hospital visit. Your Care Team [facility] DR. AVILA What to do next Follow Up Appointments Follow Up with CHET AVILA MD When Why: CALL DR AVILA [...] WITH ANY URGENT CONCERNS. Where: [address] [place] [address]- [phone] The Following Activity and Diet Have Been [...] including vitamins, herbs, eye drops, creams, and rcpf-ivq-idffzwu medicines. Any blood disorders you have. Any [...] 10/03/2013 Document Revised: 04/27/2018 Document Reviewed: 12/20/2016 [employer] Patient Education 2020 [employer] Colonoscopy, Adult, Care After This sheet gives [...] are soft and easy to digest. Take wauh-xxg-jtncgsi or prescription medicines only as told by [...] 03/05/2011 Document Revised: 12/01/2017 Document Reviewed: 10/25/2016 [employer] Patient Education 2020 [employer]. Monitored Anesthesia Care, Care After These instructions [...] before eating solid foods. General instructions Take sbwn-taw-gcoqkrs and prescription medicines only as told by [...] 05/23/2016 Document Revised: 05/01/2018 Document Reviewed: 05/23/2016 [employer] Patient Education 2020 [employer]. Monitored Anesthesia Care, Care After These instructions [...] before eating solid foods. General instructions Take axjo-qhh-cxrxrep and prescription medicines only as told by [...] 05/23/2016 Document Revised: 05/01/2018 Document Reviewed: 05/23/2016 [employer] Patient Education 2020 [employer]. Additional Information VACCINATE! IT SAVES LIVES! Members of the community who have not yet received the COVID-19 vaccine and would like to receive it can visit one of [facility] vaccine clinics. There are many vaccine clinic locations within the [facility]. For locations and available times, please visit [email or web address]/. It is important to note that some COVID mobile vaccine clinics are held outdoors and may be canceled in rainy or stormy conditions. To learn more about pediatric vaccinations (ages 5-11), we invite you to visit the [facility] webpage. https://www.[facility].org/pages/2891-Ewftz-Dilouzpiywe-Jdyqvatlec-Jsskh-Ehq stions.htmlTo learn more about the COVID-19 vaccine, we invite you to visit the CDC website for a list of frequently asked questions.https://www.cdc.gov/coronavirus/2019-ncov/vaccines/faq.html [facility] Patient Portal Access Instructions: Stay connected with your healthcare team and access your personal medical information anytime with the [facility] Patient Portal. Please follow the directions below to create your [facility] account: 1.Access the email account you provided upon registration to the hospital/physician office.2.Look for an invitation email from [facility].3.Open the email and access the invitation link: AcceptInvitation to [facility].4.Fill in the required avitia to create your account. To access your account, visit [email or web address]. Click the blue button labeled Access Patient [...] who you will allowto register on the [facility] Patient Portal for access to your information. You can also access the [facility] Patient Portal on the Standard Cazoodlewhere buddy. Simply click on Patient Portal and then log into your account. If you would like to receive a full copy of your medical records, please contact the [facility] Medical Records Department by calling [phone], Tuesday through Tuesday between 8 a.m. and [...] Call your local pharmacy or go to http://bit.ly/7U3Yq0h to find one close to you.3.Make use of household items: Use cat litter or old coffee grounds to dispose medications if other options arenot available. Mix your drugs with these household products, seal them in an airtight container andthrow it into the garbage. Call [facility]: [phone] to be sure your drugs can be [...] Materials Capsule Endoscopy Colonoscopy, Adult, Care After, Aeir-nt-Xsjh Monitored Anesthesia Care, Care After Monitored Anesthesia Care, Care After Medication Leaflets My discharge plan and instructions have been reviewed and explained to me and I,GARDENIA MUJICA understand my current condition and have read and understand these discharge instructions. I have received a written copy of the plan/instructions. If I have questions, I am aware that I should contact my doctor. 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 CANVAS SHRINKER-PROFESSIONAL NURSING TUTOR Preoperative Information Time of last solid food [...] list: Medical BMI 32.0-32.9,adult / SNOMED CT 512899493 / Confirmed Chest pain / SNOMED CT 37760063 / Confirmed Hyperlipidemia / SNOMED CT [id number] / Confirmed Hypertension / SNOMED CT 36488860 / Confirmed Dissociative amnesia / SNOMED CT 990143937 / Confirmed PTSD - Post-traumatic stress disorder / SNOMED CT 596328777 / Confirmed Weight gain / SNOMED CT 91888180 / Confirmed, Active Problems (10) Aortic valve replaced BMI 32.0-32.9,adult Chest pain Disassociation disorder Dissociative amnesia History of hysterectomy Hyperlipidemia Hypertension PTSD - Post-traumatic stress disorder Weight gain Histories Past Medical History: Active Hypertension (12950735) Hyperlipidemia ([id number]) Family History: HTN - Hypertension Mother Procedure history: Esophagogastroduodenoscopy (432208001) on 11/05/2022 at 57 Years. Stress testing using pharmacologic-induced stress (7055714421) on 10/10/2020 at 55 Years. Comments: 07/02/2021 12:10 EDT - Anna Cart[facility]PN [facility] - Chest X-ray (0029440205) on 09/10/2020 at 55 Years. Comments: 07/02/2021 12:15 EDT - Anna Carty LPN-mild vascualr congestion Femur (268462921). Hysterectomy (988301395). Heart (980071211). Comments: 11/10/2013 12:01 [facility] - KYE VALLEJO artificial heart valve, aorta Cholecystectomy (96012036). Sternotomy (36363328). Replacement of aortic valve (67814994). 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 Nutrition/Health 05/19/2021 Type of diet: Regular [...] Signs(last 24 hrs) Last Charted Heart Rate Nfkulmzkb82 bpm (FEB 25 10:50) Resp Rate 15 br/min (FEB 25 07:40) SBPH 152mmHg (FEB 25 07:40) DBP87 mmHg (FEB 25 07:40) BMI31.81 (FEB 25 07:49) Measurements from flowsheet : Measurements 02/25/2023 7:49 EST Height 162.5 cm Admission Weight 84 kg Weight Method Stated [place] Body Weight 54.65 kg BSA Admission 1.89 Body Mass Index 31.81 kg/m2 02/25/2023 7:40 EST Height 162.5 cm Admission Weight 84 kg [place] Body Weight 54.65 kg Admission Body Mass [...] CAt - Case Attendee 02/25/2023 10:46 EST Albert Lea History and Physical 02/25/2023 10:45 EST Respiratory [...] #1 We May Share PHI Marques Magana [phone] Designated Person #1 Relationship Son Designated Person #2 We May Share PHI Kevin Rodriguez/ son Designated Person #2 Relationship Son Height 162.5 cm Admission Weight 84 kg Weight Method Stated [place] Body Weight 54.65 kg BSA Admission 1.89 [...] evident Teaching Method Explanation Preferred Spoken Language Canadian Preferred Written Language Canadian Information Given by Patient Patient's Current Physicians [facility] in [place] Discharge To, Anticipated Home independently Prev Test [...] Attendee SN - CAt - Role Performed Human Resources Support Specialist 1 SN - CAt - Role Performed PROFESSIONAL NURSING TUTOR SN - CAt - Role Performed Machine Greaser 02/25/2023 7:45 EST SN - CAt - [...] Height 162.5 cm Admission Weight 84 kg [place] Body Weight 54.65 kg Admission Body Mass [...] Safety level maintained . Assessment and Plan [place] [employer] Anesthesiologists (ASA) physical status classification: Class III. Anesthetic Preoperative Plan Anesthetic technique: MAC. Informed consent: signed by patient. Digitally Signed by TAZ ROGER on 02/25/2023 10:57 AM [facility]01-12-2024 Note [place] ADMISSION HISTORY AND PHYSICIAL CHIEF COMPLAINT: HISTORY OF PRESENT ILLNESS: REVIEW OF SYSTEMS: ACTIVE PROBLEMS: (10) Aortic valve replaced (9480873650) BMI 32.0-32.9,adult (853430352) Chest pain (47418768) Disassociation disorder (92860261) Dissociative amnesia (361220488) History of hysterectomy (371789595) Hyperlipidemia ([id number]) Hypertension (50080365) PTSD - Post-traumatic stress disorder (664073754) Weight gain (22239646) MEDICATIONS: Active Inpt Meds: None Active PRN [...] FAMILY HISTORY: SOCIAL HISTORY: PHYSICAL EXAM: VITALS: UeecszQytvKFHsmeeNWGdA8UAY9FopeBi(kg) 02/25 07:4036.3--808467--25/12 84.0 02/25 84.0 24 Hr Tmax: 36.3 [...] H&P unless noted below. Digitally Signed by CHET AVILA MD on 02/25/2023 10:46 AM [facility]10-26-2023 Note. MICRO - Microbiology PROCEDURE: Urine [...] Locations *1: This test was performed at: [facility], [address] [place] [address], [phone] , [facility] ([place])12-07-2022 Evaluation + Plan note Diagnostic Tests Pending * Urine Culture 12/07/22 [facility] 10-24-2023 Hospital Discharge instructions Patient Education [...] or legs Numbness in the groin area [phone] [employer]. [address] [place] [address]. All rights reserved. This information is not intended as a substitute for professional medical care. Always follow yourhealthcare professional's instructions. Follow Up Care 12/07/2022 09:14:15 With:[place], [facility] Address: [address] [place], [place] [address] [address]- When:2-4 days [facility] 10-24-2023 Note Discharge Instructions Thank you for allowing [facility] to assist you with your healthcare needs. [...] Schedule the Following Appointments Follow Up with MI, CLINIC When Within 2-4 days Where: [address] [place], [place] [address] [address]- Allergies NKA Medications Please ask your primary [...] or legs Numbness in the groin area [phone] [employer]. [address] [place] [address]. All rights reserved. This information is not intended as a substitute for professional medical care. Always follow yourhealthcare professional's instructions. Additional Information VACCINATE! IT SAVES LIVES! Members of the community who have not yet received the COVID-19 vaccine and would like to receive it can visit one of [facility] vaccine clinics. There are many vaccine clinic locations within the [facility]. For locations and available times, please visit www.gettheshot.coronavirus.[place].gov/. It is important to note that some COVID mobile vaccine clinics are held outdoors and may be canceled in rainy or stormy conditions. To learn more about pediatric vaccinations (ages 5-11), we invite you to visit the [facility] webpage. https://www.[facility].org/pages/7459-Dcfsc-Kybjptstjho-Buhdkvkygp-Tsfpp-Iek stions.htmlTo learn more about the COVID-19 vaccine, we invite you to visit the CDC website for a list of frequently asked questions. https://www.cdc.gov/coronavirus/2019-ncov/vaccines/faq.html [facility] Patient Portal Access Instructions: Stay connected with your healthcare team and access your personal medical information anytime with the [facility] Patient Portal. If you would like a full copy of your medical records please contact the [facility] Medical Records Department Tuesday through Tuesday between 8a.m. and 4:30p.m. Please follow the directions below to access the portal: 1.Access the email account you provided upon registration to the hospital.2.Look for an invitation email from [facility].3.Open the email and access the invitation link: Accept Invitation to [facility]naWriteOn4.Fill in the required avitia to create your account. Sign into [email or web address] with your username and password that you [...] you will allow to register on the [facility]rishnaWriteOn Patient Portal for access to your information. You can also access the [facility] Patient Portal on the dianboom. Simply click on Health Records under Citizinvestor and then click on the Ramakrishna logo. [...] Call your local pharmacy or go to [email or web address] to find one close to you.3.Make use of household items: Use cat litter or old coffee grounds to dispose medications if other options arenot available. Mix your drugs with these household products, seal them in an airtight container andthrow it into the garbage. Call [facility]: [phone] to be sure your drugs can be [...] aware that I should contact my doctor. 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 [place] [address]. All rights reserved. This information is not intended as a substitute for professional medical care. Always follow yourhealthcare professional's instructions. Follow Up Care 08/12/2022 16:55:43 With:MI, CLINIC Address: [address] [place], [place] [address] [address]- When:2-4 days With:Call Physician Referral Address:Unknown When:2-4 days [facility] 06-29-2023 Note ORIGINAL EXAMINATION: ONE XRAY [...] Sign Date: 08/12/2022 7:19:21 PM Ordering Provider: [facility]06-29-2023 Note Discharge Instructions Thank you for allowing [facility] to assist you with your healthcare needs. The following is importantdischarge information regarding your hospital visit. Diagnosis from Today's Visit Near syncope Shortness of breath What to Do Next Instructions from Your Care Team No qualifying data available. Post Acute Orders No qualifying data available. You Need to Schedule the Following Appointments Follow Up with MI, CLINIC When Within 2-4 days Where: [address] [place] [address]- Follow Up with Call Physician Referral When [...] when standing up too quickly or straining [phone] [employer]. [address] [place] [address], [place] [address]. All rights reserved. This information is not intended as a substitute for professional medical care. Always follow yourhealthcare professional's instructions. Additional Information VACCINATE! IT SAVES LIVES! Members of the community who have not yet received the COVID-19 vaccine and would like to receive it can visit one of [facility] vaccine clinics. There are many vaccine clinic locations within the [facility]. For locations and available times, please visit www.gettheshot.coronavirus.[place].gov/. It is important to note that some COVID mobile vaccine clinics are held outdoors and may be canceled in rainy or stormy conditions. To learn more about pediatric vaccinations (ages 5-11), we invite you to visit the [facility] webpage. https://www.[facility].org/pages/9681-Pmsot-Seiwawpqdzp-Fpaflizsha-Qistw-Xac stions.htmlTo learn more about the COVID-19 vaccine, we invite you to visit the CDC website for a list of frequently asked questions. https://www.cdc.gov/coronavirus/2019-ncov/vaccines/faq.html [facility] Patient Portal Access Instructions: Stay connected with your healthcare team and access your personal medical information anytime with the [facility] Patient Portal. If you would like a full copy of your medical records please contact the [facility] Medical Records Department Tuesday through Tuesday between 8a.m. and 4:30p.m. Please follow the directions below to access the portal: 1.Access the email account you provided upon registration to the [facility].2.Look for an invitation email from [facility].3.Open the email and access the invitation link: Accept Invitation to [facility]4.Fill in the required avitia to create [...] you will allow to register on the [facility] Patient Portal for access to your information. You can also access the [facility] Patient Portal on the dianboom. Simply click on Health Records under Citizinvestor and then click on the Standard logo. HOW TO SAFELY DISPOSE OF PRESCRIPTION [...] Call your local pharmacy or go to [email or web address] to find one close to you.3.Make use of household items: Use cat litter or old coffee grounds to dispose medications if other options arenot available. Mix your drugs with these household products, seal them in an airtight container andthrow it into the garbage. Call [facility]: [phone] to be sure your drugs can be [...] aware that I should contact my doctor. 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 Herbal tea. Fats and oils [place] oil. Canola oil. Grapeseed oil. [place] oil. Seasoning and other foods Low-fat salad dressing. Ketchup. Low-fat mayonnaise. All spices except pepper. Low-sodium seasoningmixes. Foods to avoid Meats and other protein foods Fatty meats. Fried meats. Any meat that causes symptoms. Dairy Whole milk. Ice cream. Cream. Chocolate milk. Beverages Alcohol. Coffee. Cola and energy drinks. Black or green tea. [place]. Fats and oils Butter. Lard. Ghee. Seasoning [...] 04/24/2012 Document Revised: 01/13/2018 Document Reviewed: 03/14/2017 [employer] Patient Education 2020 [employer]. Follow Up Care 06/02/2022 10:34:36 With:MI, CLINIC Address: [address] [place] [address]- When:1-2 days Comments:Please call the office to schedule a follow up appointment [facility] 04-21-2023 Note Discharge Instructions Thank you for allowing [facility] to assist you with your healthcare needs. The following is importantdischarge information regarding your hospital visit. Your Care Team MI, CLINIC What to do next Follow Up Appointments Follow Up with MI, CLINIC When Within 1-2 days Why: Please call the office to schedule a follow up appointment Where: [address] [place], [place] [address] [address]- The Following Activity and Diet Have Been [...] times a day Refills: 5 Pickup at [facility] New sucralfate (sucralfate 1 g oral tablet) 1 tab(s) by mouth Three (3) times a day Duration: 30 Days Pickup at [facility] Changed warfarin (Coumadin) 3 Milligram by mouth Once a day Pharmacy Information [facility]: [address], [place] [id number] [phone] What How Much When Why Comments Stop [...] soft drinks. Herbal tea. Fats and oils [place] oil. Canola oil. Grapeseed oil. [place] oil. Seasoning and other foods Low-fat salad dressing. Ketchup. Low-fat mayonnaise. All spices except pepper. Low-sodium seasoningmixes. Foods to avoid Meats and other protein foods Fatty meats. Fried meats. Any meat that causes symptoms. Dairy Whole milk. Ice cream. Cream. Chocolate milk. Beverages Alcohol. Coffee. Cola and energy drinks. Black or green tea. [place]. Fats and oils Butter. Lard. Ghee. Seasoning [...] 04/24/2012 Document Revised: 01/13/2018 Document Reviewed: 03/14/2017 [employer] Patient Education 2020 [employer]. Additional Information VACCINATE! IT SAVES LIVES! Members of the community who have not yet received the COVID-19 vaccine and would like to receive it can visit one of [facility] vaccine clinics. There are many vaccine clinic locations within the [facility]. For locations and available times, please visit https://[email or web address].[place].gov/. It is important to note that some COVID mobile vaccine clinics are held outdoors and may be canceled in rainy or stormy conditions. To learn more about pediatric vaccinations (ages 5-11), we invite you to visit the [facility] webpage. https://www.[facility].org/pages/5467-Ikjwn-Ydcwxdjyvxk-Uocotpxfjb-Rxwtp-Pts stions.htmlTo learn more about the COVID-19 vaccine, we invite you to visit the CDC website for a list of frequently asked questions. https://www.cdc.gov/coronavirus/2019-ncov/vaccines/faq.html [facility] Patient Portal Access Instructions: Stay connected with your healthcare team and access your personal medical information anytime with the [facility] Patient Portal.If you would like a full copy of your medical records, please contact the [facility] Medical Records Department, Tuesday through Tuesday between 8a.m. and 4:30p.m. Please follow the directions below to access the portal: 1.Access the email account you provided upon registration to the hospital.2.Look for an invitation email from [facility].3.Open the email and access the invitation link: Accept Invitation to [facility]WriteOn4.Fill in the required avitia to create your account. Sign into [email or web address] with your username and password that you [...] you will allow to register on the [facility] Patient Portal for access to your information. You can also access the [facility]rishnaWriteOn Patient Portal on the [employer] Mobile buddy. Simply click on Health Records under Curious Senseta and then click on the Ramakrishna logo. [...] Call your local pharmacy or go to [email or web address] to find one close to you.3.Make use of household items: Use cat litter or old coffee grounds to dispose medications if other options arenot available. Mix your drugs with these household products, seal them in an airtight container andthrow it into the garbage. Call [facility]: [phone] to be sure your drugs can be [...] aware that I should contact my doctor. 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 Not known to [...] 10 mEq oral tablet, extended release)1 tab(s) bymouth two (2) times a day for 10 Days. Refills: 0. SUMAtriptan (SUMAtriptan 50 mg oral tablet) topiramate (topiramate 25 mg oral tablet) valACYclovir (valACYclovir 500 mg oral tablet) Sucralfate tid X 30 days, Follow Up Follow Up with MI, CLINIC When Within 1-2 days Why: Please call the office to schedule a follow up appointment Where: [address] [facility] [place] [address]- Follow Up Appointments No qualifying data available. [...] DAVID PRATT MD on 06/04/2022 10:53 AM [id number] Note Date of Service 06/03/22 Chief Complaint [...] DAVID PRATT MD on 06/03/2022 11:45 PM [id number] Anesthesiology Consult note Patient: GARDENIA MUJICA Age: [...] KATHLEEN ROBERTSON MD on 06/03/2022 03:09 PM [id number] Anesthesiology Consult note Patient: GARDENIA MUJICA Age: 56 years Sex: Female : 1965 Associated Diagnoses: None Author: JEAN-PAUL VARMA MD Preoperative Information NPO >8 hours Anesthesia history Patient's history: negative. 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 Comments: 07/02/2021 12:10 EDT - Anna Carty LPN [place]-normal CXR - Chest X-ray (9837231524) on 09/10/2020 at 55 Years. Comments: 07/02/2021 12:15 EDT - Anna Carty LPN-mild vascualr congestion Femur (618651620). Hysterectomy (824221414). Heart (992165531). Comments: 11/10/2013 12:01 EDT - KYE VALLEJO artificial heart valve, aorta Cholecystectomy (10934879). Sternotomy (42738481). Replacement of aortic valve (46631883). 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 Physical Examination Vital Signs(last 24 hrs) Last Charted Temp Oral37 DegC (JUN 03 10:48) Heart Rate Erxuwprfe65 bpm (JUN 03 14:48) Resp Rate L 12br/min (JUN 03 14:48) GJV281 mmHg (JUN 03 14:48) DBP68 mmHg (JUN 03 14:48) BMI32.3 (JUN 02 20:05) Measurements from flowsheet : Measurements 06/02/2022 20:05 EDT Height 162.6 cm Height in inches 64 inch(es) Admission Weight 85.4 kg Weight Lbs 187.9 lb [place] Body Weight 54.74 kg Type of Scale [...] Documentation reviewed: Current records. Assessment and Plan [place] Society of Anesthesiologists (ASA) physical status classification: Class III. Anesthetic Preoperative Plan Premedication: intravenous. Anesthetic technique: MAC. Induction: intravenously. Maintenance airway: NC. Postoperative pain management: Per surgeon. Risks discussed: nausea, vomiting, headache, sore throat, dental injury, hypotension, allergic reaction, serious complications. Informed consent: signed by patient. 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 [...] BRANDON SEAY MD on 06/03/2022 12:36 PM [id number] History and physical note Date of Service 06/02/2022 Chief Complaint Coffee ground emesis History of Present Illness 56 yo F w/a PMH consistent with aortic valve replacement on coumadin, obesity, HTN , HLP presented to [facility] for hematemesis since 7PM on 06/01. Describes 3-4 episodes of coffee ground emesis. Denies anyNSAID use. On coumadin for mechanical valve replacement and has a remote history of a gastroplasty.Some intermittent sharp epigastric pain not associated with eating. Denies fevers, chills, nausea, melena, hematochezia. In AO, CTAP unremarkable. Hgb WNL at 12.3. 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 [...] ANDREW TABOR DO on 06/02/2022 11:20 PM [id number] Evaluation + Plan noteExtracted from: Title:History and [...] Future Scheduled Tests Laboratory* Lipid Profile 08/19/21 [facility] 12-29-2022 Hospital Discharge instructions Patient Education 02/11/2022 [...] Numbness in the groin or genital area 7178-8072 [employer]. [address] [place] [address]. All rights reserved. This information is not intended as a substitute for professional medical care. Always follow yourhealthcare professional's instructions. Follow Up Care 02/11/2022 11:51:22 With:MI, CLINIC Address: [address] [place] [address]- When:2-4 days Comments:Return to ED if symptoms worsen [facility] 12-29-2022 Emergency department Discharge summary Discharge Instructions Thank you for allowing [facility] to assist you with your healthcare needs. [...] Return to ED if symptoms worsen [facility]: [address] [facility] [place] [address]- Allergies NKA Medications Please ask your primary [...] Numbness in the groin or genital area 6455-6821 [employer]. [address] [place] [address]. All rights reserved. This information is not intended as a substitute for professional medical care. Always follow yourhealthcare professional's instructions. Additional Information VACCINATE! IT SAVES LIVES! Members of the community who have not yet received the COVID-19 vaccine and would like to receive it can visit one of [facility] vaccine clinics. There are many vaccine clinic locations within the [facility]. For locations and available times, please visit www.gettheshot.[place]on[place]. It is important to note that some COVID mobile vaccine clinics are held outdoors and may be canceled in rainy orstormy conditions. To learn more about pediatric vaccinations (ages 5-11), we invite you to visit the [facility] webpage. https://www.[facility].org/pages/0394-Cfnfc-Hpgrzapztwq-Zcuktymwsa-Zwhnr-Uqp stions.htmlTo learn more about the COVID-19 vaccine, we invite you to visit the [employer] website for a list of frequently asked questions. [email or web address]-[email or web address]-Fbmqyyru/vxeyz-Xzcjplw-Zzrmeqequd _Asked-Questions.pdf [facility] OneChart Patient Portal Access Instructions: Stay connected with your healthcare team and access your personal medical information anytime with the [facility]naWriteOn Patient Portal. If you would like a full copy of your medical records please contact the [facility] Medical Records Department Tuesday through Tuesday between 8a.m. and 4:30p.m. Please follow the directions below to access the portal: 1.Access the email account you provided upon registration to the [facility].2.Look for an invitation email from [facility].3.Open the email and access the invitation link: Accept Invitation to [facility]4.Fill in the required avitia to create your account. Sign into [email or web address] with your username and password that you [...] you will allow to register on the [facility] Patient Portal for access to your information. You can also access the [facility]WriteOn Patient Portal on the dianboom. Simply click on Health Records under [employer]iz[employer]or and then click on the iKnowl logo. HOW TO SAFELY DISPOSE OF PRESCRIPTION [...] Call your local pharmacy or go to [email or web address] to find one close to you.3.Make use of household items: Use cat litter or old coffee grounds to dispose medications if other options arenot available. Mix your drugs with these household products, seal them in an airtight container andthrow it into the garbage. Call [facility]: [phone] to be sure your drugs can be [...] aware that I should contact my doctor. 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 Signature: Date/Time: Relationship to Patient: Witness Name/Signature: Date/Time: [facility]12-29-2022 Note ORIGINAL HISTORY: Flank pain COMPARISON: [...] Sign Date: 02/11/2022 1:00:16 PM Ordering Provider: [facility]12-29-2022 Note ORIGINAL HISTORY: Flank pain COMPARISON: 20 [...] Jose L Fatima MD Electronically signed By Joes L Fatima MD Dictated Date: 02/11/2022 12:58:04 PM Prelim Date: 02/11/2022 1:00:16 PM Sign Date: 02/11/2022 1:00:16 PM Ordering Provider: [facility]11-01-2022 Hospital Discharge instructions Patient Education 12/15/2021 02:42:03 [...] the smoke from others. You may use qvzm-lpd-pyauynk acetaminophen or ibuprofen for fever, muscle aching, [...] body and be dangerous to your health. Prec-hbl-stankyq remedies won't shorten the length of the [...] or as directed by your healthcare provider 4723-2035 [employer]. [address] [place] [address]. All rights reserved. This information is not intended as a substitute for professional medical care. Always follow yourhealthcare professional's instructions. Follow Up Care 12/15/2021 02:27:15 With:MI, CLINIC Address: [address] [place], [place] [address]Lidia [place] [address]- When:2-4 days [facility] 11-01-2022 Note Discharge Instructions Thank you for allowing [facility] to assist you with your healthcare needs. [...] Schedule the Following Appointments Follow Up with [place], CLINIC When Within 2-4 days Where: [address] [place], [place] [address]Lidia [place] [address]- Allergies NKA Medications Please ask your primary [...] the smoke from others. You may use ixvv-txx-suzjjgo acetaminophen or ibuprofen for fever, muscle aching, [...] body and be dangerous to your health. Lwhm-exe-cpnijbo remedies won't shorten the length of the [...] or as directed by your healthcare provider [phone] [employer]. [address] [place] [address], [place] [address]. All rights reserved. This information is not intended as a substitute for professional medical care. Always follow yourhealthcare professional's instructions. Additional Information VACCINATE! IT SAVES LIVES! Members of the community who have not yet received the COVID-19 vaccine and would like to receive it can visit one of [facility] vaccine clinics. There are many vaccine clinic locations within the [facility]. For locations and available times, please visit [email or web address]. It is important to note that some COVID mobile vaccine clinics are held outdoors and may be canceled in rainy orstormy conditions. To learn more about pediatric vaccinations (ages 5-11), we invite you to visit the [facility] webpage. https://www.[employer].org/pages/6029-Ufbpo-Xtagqfirzxz-Blcvwbqpbt-Pmzni-Gdd stions.htmlTo learn more about the COVID-19 vaccine, we invite you to visit the [facility] website for a list of frequently asked questions. https://[email or web address].org/assets/Glzgxxqn-cxd-Cctmzfvk/uxwhn-Fpwvkwy-Bmnzplbmis _Asked-Questions.pdf [facility] Patient Portal Access Instructions: Stay connected with your healthcare team and access your personal medical information anytime with the [facility]WriteOn Patient Portal. If you would like a full copy of your medical records please contact the [facility] Medical Records Department Tuesday through Tuesday between 8a.m. and 4:30p.m. Please follow the directions below to access the portal: 1.Access the email account you provided upon registration to the [facility].2.Look for an invitation email from [facility].3.Open the email and access the invitation link: Accept Invitation to RamakrishnaWriteOn4.Fill in the required avitia to create your account. Sign into [email or web address] with your username and password that you [...] you will allow to register on the [facility] Patient Portal for access to your information. You can also access the [facility] Patient Portal on the dianboom. Simply click on Health Records under [employer] and then click on the iKnowl logo. HOW TO SAFELY DISPOSE OF PRESCRIPTION [...] Call your local pharmacy or go to [email or web address] to find one close to you.3.Make use of household items: Use cat litter or old coffee grounds to dispose medications if other options arenot available. Mix your drugs with these household products, seal them in an airtight container andthrow it into the garbage. Call [facility]: [phone] to be sure your drugs can be [...] aware that I should contact my doctor. 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 [place] [address], [place] [address]. All rights reserved. This information is not intended as a substitute for professional medical care. Always follow yourhealthcare professional's instructions. Follow Up Care 11/19/2021 16:38:37 With:[place], [facility] Address: [address] [place] [address] [place] [address]- When: Unknown Comments:Call tomorrow [facility] 10-06-2022 Emergency department Discharge summary Discharge Instructions Thank you for allowing [facility] to assist you with your healthcare needs. The following is importantdischarge information regarding your hospital visit. Diagnosis from Today's Visit Hypokalemia SOB - Shortness of breath What to Do Next Instructions from Your Care Team No qualifying data available. Post Acute Orders No qualifying data available. You Need to Schedule the Following Appointments Follow Up with [facility] When Why: Call tomorrow Where: [address] [place], [place] [address] [address]- Allergies NKA Medications Please ask your primary [...] very fast heart rate Loss of consciousness [phone] [employer]. [address] [place] [address], [place] [address]. All rights reserved. This information is not intended as a substitute for professional medical care. Always follow yourhealthcare professional's instructions. Additional Information VACCINATE! IT SAVES LIVES! Members of the community who have not yet received the COVID-19 vaccine and would like to receive it can visit one of [facility] vaccine clinics. There are many vaccine clinic locations within the [facility]. For locations and available times, please visit www.[email or web address]. It is important to note that some COVID mobile vaccine clinics are held outdoors and may be canceled in rainy orstormy conditions. To learn more about pediatric vaccinations (ages 5-11), we invite you to visit the [employer] [facility] webpage. https://www.[facility].org/pages/6617-Gnwdc-Wylvfptewcf-Infdwlmkjv-Eizxb-Gzj stions.htmlTo learn more about the COVID-19 vaccine, we invite you to visit the [facility] website for a list of frequently asked questions. https://[email or web address].Tellagence/assets/Latwwhob-ccx-Gbjpufun/vuapn-Wnkmvsy-Ttfqnwwbzm _Asked-Questions.pdf [facility] Patient Portal Access Instructions: Stay connected with your healthcare team and access your personal medical information anytime with the [facility] Patient Portal. If you would like a full copy of your medical records please contact the [facility] Medical Records Department Tuesday through Tuesday between 8a.m. and 4:30p.m. Please follow the directions below to access the portal: 1.Access the email account you provided upon registration to the hospital.2.Look for an invitation email from [facility].3.Open the email and access the invitation link: Accept Invitation to RamakrishnaWriteOn4.Fill in the required avitia to create your account. Sign into [email or web address] with your username and password that you [...] you will allow to register on the [facility] Patient Portal for access to your information. You can also access the [facility] Patient Portal on the [employer] Mobile buddy. Simply click on Health Records under [employer] and then click on the iKnowl logo. HOW TO SAFELY DISPOSE OF PRESCRIPTION [...] Call your local pharmacy or go to [email or web address] to find one close to you.3.Make use of household items: Use cat litter or old coffee grounds to dispose medications if other options arenot available. Mix your drugs with these household products, seal them in an airtight container andthrow it into the garbage. Call [facility]: [phone] to be sure your drugs can be [...] aware that I should contact my doctor. 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 [address] [place] [address]. All rights reserved. This information is not intended as a substitute for professional medical care. Always follow yourhealthcare professional's instructions. Follow Up Care 09/06/2021 18:33:05 With:[place], CLINIC Address: [address] [place] [address]- When:2-4 days [facility] 07-24-2022 Note Discharge Instructions Thank you for allowing [facility] to assist you with your healthcare needs. The following is importantdischarge information regarding your hospital visit. Diagnosis from Today's Visit SOB - Shortness of breath What to Do Next Instructions from Your Care Team No qualifying data available. Post Acute Orders No qualifying data available. You Need to Schedule the Following Appointments Follow Up with [place], CLINIC When Within 2-4 days [facility]: [address] [place] [address]- Allergies NKA Medications Please ask your primary [...] or as directed by your healthcare provider [phone] [employer]. [address] [place] [address], [place] [address]. All rights reserved. This information is not intended as a substitute for professional medical care. Always follow yourhealthcare professional's instructions. Additional Information VACCINATE! IT SAVES LIVES! Members of the community who have not yet received the COVID-19 vaccine and would like to receive it can visit one of [facility] vaccine clinics. There are many vaccine clinic locations within the State. For locations and available times, please visit www.[email or web address]. It is important to note that some COVID mobile vaccine clinics are held outdoors and may be canceled in rainy orstormy conditions. To learn more about pediatric vaccinations (ages 5-11), we invite you to visit the [facility] webpage. https://www.[facility].org/pages/5532-Edwya-Ufiwgechbpo-Ofuvcybxww-Qjvmr-Hcf stions.htmlTo learn more about the COVID-19 vaccine, we invite you to visit the [facility] website for a list of frequently asked questions. https://[email or web address]/assets/Komtqtqw-jjd-Ecgcbgzv/tjqgs-Ixkyglp-Klmvkjxgad _Asked-Questions.pdf [facility] Patient Portal Access Instructions: Stay connected with your healthcare team and access your personal medical information anytime with the [facility]WriteOn Patient Portal. If you would like a full copy of your medical records please contact the [facility] Medical Records Department Tuesday through Tuesday between 8a.m. and 4:30p.m. Please follow the directions below to access the portal: 1.Access the email account you provided upon registration to the hospital.2.Look for an invitation email from [facility].3.Open the email and access the invitation link: Accept Invitation to [facility]4.Fill in the required avitia to create your account. Sign into [email or web address] with your username and password that you [...] you will allow to register on the [facility]rishnaWriteOn Patient Portal for access to your information. You can also access the [facility]rishnaWriteOn Patient Portal on the [employer] Mobile buddy. Simply click on Health Records under [employer] and then click on the Ramakrishna logo. [...] Call your local pharmacy or go to [email or web address] to find one close to you.3.Make use of household items: Use cat litter or old coffee grounds to dispose medications if other options arenot available. Mix your drugs with these household products, seal them in an airtight container andthrow it into the garbage. Call [facility]: [phone] to be sure your drugs can be [...] aware that I should contact my doctor. 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 ORIGINAL EXAMINATION: ONE XRAY VIEW [...] Date: 09/06/2021 7:13:34 PM Ordering Provider: SRIDHAR [facility] [id number] Evaluation + Plan note Future Scheduled Tests Laboratory* Lipid Profile 08/19/21 [facility] Georgina 12-01-2021 History of Present illness Narrative* Eric [...] discharged in stable condition. Eric Huff MD /[id number] SSI File#: [id number] END OF DOCUMENT / CHANGE LOG FOLLOWS Last Edited By Elec. Signed By Erci Huff MD #PAWPR Eric Huff MD #PAWPR on 01/15/2021 08:52 ET on 01/15/2021 08:52 ET Revision Number - 2 ^^^ Verified/Reviewed by 01/15/[address] [facility] PATIENT NAME: GARDENIA MUJICA [address] [place] MEDICAL REC #: [id number] [place] [address] [facility] REPORT STATCARE PHYSICIAN [facility] [place] + Plan note Future Scheduled Tests Laboratory* Lipid Profile 08/19/21 [facility] Evaluation note* Diagnosis Gastroesophageal reflux disease, unspecified whether esophagitis present History of bariatric surgery Bariatric surgery status documented in this encounter [facility] noteNo assessment information availableWReg[facility] Work Phone: Evaluation note* Diagnosis Helicobacter pylori infection- Primary Helicobacter pylori (H. pylori) documented in this encounter [facility] note* Diagnosis Helicobacter pylori infection Helicobacter pylori (H. pylori) documented in this encounter [facility] note* Diagnosis Helicobacter pylori infection- Primary [...] unspecified obesity type documented in this encounter [facility] note* Diagnosis Gastroesophageal reflux disease with [...] Unspecified deficiency anemia documented in this encounter [facility] note* Diagnosis Gastroesophageal reflux disease with [...] apnea (adult) (pediatric) documented in this encounter [facility] note* Diagnosis Gastroesophageal reflux disease, unspecified whether esophagitis present Preop examination Preoperative examination, unspecified Obstructive sleep apnea Obstructive sleep apnea (adult) (pediatric) H/O mechanical aortic valve replacement Heart valve replaced by other means Primary hypertension Unspecified essential hypertension Gastroesophageal reflux disease with esophagitis without hemorrhage documented in this encounter [facility] note* Diagnosis Gastroesophageal reflux disease, unspecified whether esophagitis present Preop examination Preoperative examination, unspecified Obstructive sleep apnea Obstructive sleep apnea (adult) (pediatric) H/O mechanical aortic valve replacement Heart valve replaced by other means Primary hypertension Unspecified essential hypertension Increased PTH level- Primary Unspecified endocrine disorder Blood alkaline phosphatase increased compared with prior measurement documented in this encounter [facility] note* Diagnosis Gastroesophageal reflux disease, unspecified [...] apnea (adult) (pediatric) documented in this encounter [facility] note* Diagnosis Gastroesophageal reflux disease, unspecified [...] obesity type- Primary documented in this encounter [facility] course Narrative No data available for this section [facility] Hospital Discharge instructions No data available for this section [facility] Note* GARRETT MALONE MD: SIGN, VERIFY Event Display: EKG [ED AO] - CV Authored Date: [facility] Progress note No data available for this section [facility] Reason for referral (narrative)* Diagnostic Procedure Only (Routine) - Closed Specialty Diagnoses / Procedures Referred By Contac t Referred To Contact XR IMAGING Diagnoses Gastroesophageal reflux disease, unspecified whether esophagitis present History of bariatric surgery Procedures XR UPPER GI SINGLE CONTRAST RADIOLOGIC EXAM UPR GI TRC SINGLE CONTRAST STUDY Jayashree Hernandez MD [address] [facility] [address] [place] [address] [place] [address] Referral ID Status Reason Start Date Expiration Date V isits Requested Visits Authorized [id number] Closed Auto-Generate d Referral 02/14/2023 02/14/2024 1 1 [facility] for referral (narrative)* Diagnostic Procedure Only (Routine) - Pending Review Specialty Diagnoses / Procedures [facility] To Contact US IMAGING Diagnoses Gastroesophageal reflux disease with esophagitis without hemorrhage Procedures US ABD RIGHT UPPER QUADRANT US ABDOMINAL REAL TIME W/IMAGE LIMITED Jayashree Hernandez MD [address] [facility] [address] [place] [address] [place] [address] Referral ID Status Reason Start Date Expiration Date Visits Requested Visits Authorized [id number] Pending Review Auto-Generat ed Referral 07/28/2023 08/26/2024 1 1 T [facility] for referral (narrative)* Diagnostic Procedure Only (Routine) - Closed Specialty Diagnoses / Procedures [facility] Referred To Contact US IMAGING Diagnoses Gastroesophageal reflux disease with esophagitis without hemorrhage Procedures US ABD RIGHT UPPER QUADRANT US ABDOMINAL REAL TIME W/IMAGE LIMITED Jayashree Hernandez MD [address] [facility] [address] [place] [address] [place] [address] Referral ID Status Reason Start Date Expiration Date V isits Requested Visits Authorized [id number] Closed Auto-Generate d Referral 07/28/2023 08/26/2024 1 1 [facility] for visit Narrative* Diagnostic Procedure Only (Routine) - Closed Specialty Diagnoses / Procedures Referred By Contac t Referred To Contact XR IMAGING Diagnoses Gastroesophageal reflux disease, unspecified whether esophagitis present History of bariatric surgery Procedures XR UPPER GI SINGLE CONTRAST RADIOLOGIC EXAM [facility] GI TR SINGLE CONTRAST STUDY Jayashree Hernandez MD [address] [place] [address] [place] [address] Referral ID Status Reason Start Date Expiration Date V isits Requested Visits Authorized [id number] Closed Auto-Generate d Referral 02/14/2023 02/14/2024 1 1 [facility] Summary Purpose Family History No Family History Records Found Relationship Condition Age at Onset Recorded Date/T randy grandmother Cardiac disease Unknown mother Cardiac disease Unknown Advance Directives No Advanced Directives Records FoundDocuments on File 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 Date 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 Advance Directive(s) Advance Directive Response Recorded Date/ Time Advance Directives Yes September 30, 2017 10:08am Living Will No February 02 6:03pm Power of Jitney Driver No February 03, 2020 6:03pm Advance Directive Response Recorded Date/ Time Advance Directives Yes January 8:07am Living Will No November 22 4:40pm Power of Jitney Driver No November 22 4:40pm Living Will No January 14 12:23am Power of Jitney Driver No January 15, 2024 12:23am Living Will No February 13 9:23pm Power of Jitney Driver No February 14, 2024 9:23pm Living Will Yes March 28 12:39pm Power of Jitney Driver Yes March 28, 2024 12:39pm Name of Medical Power of Jitney Driver Marques Barajas no March 28, 2024 12:39pm Advance Directive Response Recorded Date/ Time Advance Directives Yes January 9:07am Living Will No November 22 5:40pm Power of Jitney Driver No November 22 5:40pm Living Will No January 14 1:23am Power of Jitney Driver No January 15, 2024 1:23am Living Will No February 13 10:23pm Power of Jitney Driver No February 14, 2024 10:23pm Living Will Yes March 28 1:39pm Power of Jitney Driver Yes March 28, 2024 1:39pm Name of Medical Power of Jitney Driver Marques Barajas no March 28, 2024 1:39pm Advance Directive Response Recorded Date/ Time Advance Directives Yes January 9:07am Living Will No November 22 5:40pm Do you have a Healthcare Pow er of Jitney Driver? No November 23, 2023 5:40pm Living Will No January 14 1:23am Do you have a Healthcare Pow er of Jitney Driver? No January 15, 2024 1:23am Living Will No February 13 10:23pm Do you have a Healthcare Pow er of Jitney Driver? No February 14, 2024 10:23pm Living Will Yes March 28 1:39pm Do you have a Healthcare Pow er of Jitney Driver? Yes March 28, 2024 1:39pm Name of Medical Power of Jitney Driver Marques Barajas no March 28, 2024 1:39pm Advance Directive Response Recorded Date/ Time Advance Directives Yes January 9:07am Living Will No January 14 1:23am Do you have a Healthcare Pow er of Jitney Driver? No January 15, 2024 1:23am Living Will No April 14, 2024 3:54am Do you have a Healthcare Pow er of Jitney Driver? No April 14, 2024 3:54am Living Will No February 13 10:23pm Do you have a Healthcare Pow er of Jitney Driver? No February 14, 2024 10:23pm Living Will Yes March 28 1:39pm Do you have a Healthcare Pow er of Jitney Driver? Yes March 28, 2024 1:39pm Name of Medical Power of Jitney Driver Marques Barajas no March 28, 2024 1:39pm Advance Directive Response Recorded Date/ Time Living Will No April 14, 2024 3:54am Do you have a Healthcare Pow er of Jitney Driver? No April 14, 2024 3:54am Living Will No May 14, 2024 9:35pm Do you have a Healthcare Pow er of Jitney Driver? No May 14, 2024 9:35pm Living Will No June 13, 2024 8:21pm Do you have a Healthcare Pow er of Jitney Driver? No June 13, 2024 8:21pm Living Will No February 13 10:23pm Do you have a Healthcare Pow er of Jitney Driver? No February 14, 2024 10:23pm Living Will Yes March 28 1:39pm Do you have a Healthcare Pow er of Jitney Driver? Yes March 28, 2024 1:39pm Name of Medical Power of Jitney Driver Marques Barajas no March 28, 2024 1:39pm Advance Directives Yes January 9:07am Chief Complaint and Reason for Visit Chief Complaint STANDING ORDER Chief Complaint Admit Date STANDING ORDER January 09, 2024 9:11am Urinary tract infection January 27 024 8:13am EORDER January 30, 2024 3:19pm STANDING ORDER January 31, 2024 12:29pm Gastroparesis March 02, 2024 1 :35pm STANDING ORDER March 05, 2024 9 :54am SCREENING March 22, 2024 8 :02am GI BLEED March 28, 2024 10:37am GI BLEED March 28, 2024 3:51pm GI BLEED March 28, 2024 7:30pm GI BLEED March 29, 2024 3:08pm Diarrhea April 05, 2024 1:28pm STANDING ORDER/ADDITL ORDER April 05, 2024 1:29pm FATTY LIVER April 17, 2024 6:59 am Unspecified abdominal pain April 19 10:01am HYDRATION April 19, 2024 12:2 3pm Reason for Visit Admit Date Leaking of urine January 28, 2024 8:13am Left low back pain January 28, 2024 8:13am Urine frequency January 28, 2024 8:13am Gastroparesis March 02, 2024 1 :35pm 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 28, 2024 10:37am assisted current use of anticoagulant F ebruary 2024 10:37am Acute upper GI bleeding March 28 025 10:37am Chief Complaint Admit Date Urinary tract infection January 27 024 8:13am EORDER January 30, 2024 3:19pm STANDING ORDER January 31, 2024 12:29pm Gastroparesis March 02, 2024 1 :35pm STANDING ORDER March 05, 2024 9 :54am SCREENING March 22, 2024 8 :02am GI BLEED March 28, 2024 10:37am GI BLEED March 28, 2024 3:51pm GI BLEED March 28, 2024 7:30pm GI BLEED March 29, 2024 3:08pm Diarrhea April 05, 2024 1:28pm STANDING ORDER/ADDITL ORDER April 05, 2024 1:29pm FATTY LIVER April 17, 2024 6:59 am Unspecified abdominal pain April 19 10:01am HYDRATION April 19, 2024 12:2 3pm STANDING ORDER/ADDITL ORDER May 04, 2024 8:29am Chief Complaint Admit Date SCREENING March 22, 2024 8 :02am GI BLEED March 28, 2024 10:37am GI BLEED March 28, 2024 3:51pm GI BLEED March 28, 2024 7:30pm GI BLEED March 29, 2024 3:08pm Diarrhea April 05, 2024 1:28pm STANDING ORDER/ADDITL ORDER April 05, 2024 1:29pm FATTY LIVER April 17, 2024 6:59 am Unspecified abdominal pain April 19 10:01am HYDRATION April 19, 2024 12:2 3pm STANDING ORDER/ADDITL ORDER May 04, 2024 8:29am STANDING ORDER/ADDITL ORDER May 25, 2024 1:17pm STANDING ORDER/ADDITL ORDER July 06, 2024 12:49pm Reason for Visit Admit Date 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 28, 2024 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 2024 10:37am Acute upper GI bleeding March 28 10:37am Additional Source Comments INFORMATION SOURCE (unrecogn ized section and content) DATE CREATED AUTHOR 06/15/2018 [facility] DATE CREATED AUTHOR AUTHOR'S ORGANIZ ATION 06/20/2018 [facility] [place] DATE CREATED AUTHOR AUTHOR'S ORGANIZ ATION 02/22/2021 [facility] [place] DATE CREATED AUTHOR AUTHOR'S ORGANIZ ATION 09/09/2021 [facility] DATE CREATED AUTHOR AUTHOR'S ORGANIZ ATION 07/31/2023 [facility] ([place]) DATE CREATED AUTHOR AUTHOR'S ORGANIZ ATION 10/23/2023 [facility] DATE CREATED AUTHOR AUTHOR'S ORGANIZ ATION 01/17/2024 [facility] DATE CREATED AUTHOR AUTHOR'S ORGANIZ ATION 07/15/2024 [facility] Care Team (unrecognized sect ion and content) Housing Assistant Relationship Specialty Start Date End Date [place] [address] [place] [address] PCP - General 03/11/23 Team Status: Active Member Role Status Dates Dr. Miya Goldman DO Family Provider Active Dr. Tacho Ochoa MD Primary Care Provider Active Team Status: Inactive Member Role Status Dates Dr. Tacho Ochoa MD Primary Care Provider Active STEFFI SHEA Attending Provider, Referring Provider Ac tive Housing Assistant Relationship Specialty Start Date End Date [place] [address] [place] [address] PCP - General 03/11/23 Housing Assistant Relationship Specialty Start Date End Date [place] [address] [place] [address] PCP - General 03/11/23 Housing Assistant Relationship Specialty Start Date End Date [place] [address] [place] [address] PCP - General 03/11/23 Housing Assistant Relationship Specialty Start Date End Date [place] [address] [place] [address] PCP - General 03/11/23 Housing Assistant Relationship Specialty Start Date End Date [place] [address] [place] [address] PCP - General 03/11/23 Housing Assistant Relationship Specialty Start Date End Date [facility] [address] [place] [address] PCP - General 03/11/23 Housing Assistant Relationship Specialty Start Date End Date [facility] [place] [address] [place] [address] PCP - General 03/11/23 Housing Assistant Relationship Specialty Start Date End Date [facility] [address] [place] [address] PCP - General 03/11/23 Housing Assistant Relationship Specialty Start Date End Date [facility] [address] [place] [address] PCP - General 03/11/23 Housing Assistant Relationship Specialty Start Date End Date [facility] [address] [place] [address] PCP - General 03/11/23 Housing Assistant Relationship Specialty Start Date End Date [facility] [address] [place] [address] PCP - General 03/11/23 Housing Assistant Relationship Specialty Start Date End Date [facility] [address] [place] [address] PCP - General 03/11/23 Housing Assistant Relationship Specialty Start Date End Date [facility] [address] [place] [address] PCP - General 03/11/23 Housing Assistant Relationship Specialty Start Date End Date [facility] [address] [place] [address] PCP - General 03/11/23 Housing Assistant Relationship Specialty Start Date End Date [facility] [address] [place] [address] PCP - General 03/11/23 Housing Assistant Relationship Specialty Start Date End Date [facility] [address] [place] [address] PCP - General 03/11/23 Housing Assistant Relationship Specialty Start Date End Date [facility] [address] [place] [address] PCP - General 03/11/23 Housing Assistant Relationship Specialty Start Date End Date [facility] [address] [place] [address] PCP - General 03/11/23 Housing Assistant Relationship Specialty Start Date End Date [facility] [address] [place] [address] PCP - General 03/11/23 Team Status: Active Member Role Status Dates Dr. Marcel Moya MD Primary Care Provider Active Team Status: Inactive Member Role Status Dates STEFFI SHEA Attending Provider Active Start: No 2023 End: January 14, 2024 STEFFI SHEA Referring Provider Active Start: 2023 End: January 14, 2024 [facility] Primary Care Provider Active Start: January 09, 2024 End: January 14, 2024 Team Status: Inactive Member Role Status Dates [facility] Primary Care Provider Active Start: January 28, 2024 End: January 28, 2024 [facility] Referring Provider Active Start: 2023 End: January 28, 2024 MARCELA Prajapati Attending Provider Active Start: January 28, 2024 End: January 28, 2024 Team Status: Inactive Member Role Status Dates [facility] Primary Care Provider Active Start: January 30, 2024 End: January 30, 2024 MARCELA Prajapati Attending Provider Active Start: January 30, 2024 End: January 30, 2024 MARCELA Prajapati Referring Provider Active Start: January 30, 2024 End: January 30, 2024 Team Status: Inactive Member Role Status Dates STEFIF SHEA Attending Provider Active Start: 2023 End: January 31, 2024 STEFFI SHEA Referring Provider Active Start: [email or web address] End: January 31, 2024 [facility] Primary Care Provider Active Start: January 31, 2024 End: January 31, 2024 Team Status: Inactive Member Role Status Dates [facility] Primary Care Provider Active Start: February 21, 2024 End: February 21, 2024 Dr. Marcel Moya MD Attending Provider Active Start: February 21, 2024 End: February 21, 2024 Team Status: Inactive Member Role Status Dates [facility] Primary Care Provider Active Start: March 02, 2024 End: March 02, 2024 Dr. Marcel Moya MD Attending Provider Active Start: March 02, 2024 End: March 02, 2024 Team Status: Inactive Member Role Status Dates [facility] Primary Care Provider Active Start: March 02, 2024 End: March 02, 2024 [facility] Referring Provider Active Start: Babatunde adames 2024 End: March 02, 2024 MADY Goetz Attending Provider Active Start: March 02, 2024 End: March 02, 2024 Team Status: Inactive Member Role Status Dates [facility] Primary Care Provider Active Start: March 05, 2024 End: March 05, 2024 Dr. Shabbir Kapadia MD Attending Provider Active S tart: March 05, 2024 End: March 05, 2024 Dr. Shabbir Kapadia MD Referring Provider Active S tart: March 05, 2024 End: March 05, 2024 Team Status: Inactive Member Role Status Dates [facility] Primary Care Provider Active Start: March 22, 2024 End: March 22, 2024 Dr. Marcel Moya MD Attending Provider Active Start: March 22, 2024 End: March 22, 2024 Dr. Marcel Moya MD Referring Provider Active Start: March 22, 2024 End: March 22, 2024 Team Status: Inactive Member Role Status Dates Sharath Forrest MD Emergency Provider Active Star t: March 28, 2024 End: March 29, 2024 Dr. Marcel Moya MD Primary Care Provider Active Start: March 28, 2024 End: March 29, 2024 Dr. Mejia Wheeler DO Admit Provider Active S tart: March 28, 2024 End: March 29, 2024 Dr. Mejia Wheeler DO Attending Provider Active Start: March 28, 2024 End: March 29, 2024 Team Status: Active Member Role Status Dates Sharath Forrest MD Emergency Provider Active Star t: March 28, 2024 Dr. Marcel Moya MD Primary Care Provider Active Start: March 28, 2024 Dr. Mejia Wheeler DO Admit Provider Active S tart: March 28, 2024 Dr. Mejia Wheeler DO Referring Provider Active Start: March 28, 2024 Dr. Mejia Wheeler DO Other Provider Active S tart: March 28, 2024 Dr. Trung Payne DO Attending Provider Active Start: March 28, 2024 Team Status: Active Member Role Status Dates Sharath Forrest MD Emergency Provider Active Star t: March 28, 2024 Dr. Marcel Moya MD Primary Care Provider Active Start: March 28, 2024 Dr. Mejia Wheeler DO Admit Provider Active S tart: March 28, 2024 Dr. Mejia Wheeler DO Attending Provider Active Start: March 28, 2024 Dr. Mejia Wheeler DO Other Provider Active S tart: March 28, 2024 Team Status: Active Member Role Status Dates Sharath Forrest MD Emergency Provider Active Star t: March 29, 2024 Dr. Marcel Moya MD Primary Care Provider Active Start: March 29, 2024 Dr. Mejia Wheeler DO Admit Provider Active S tart: March 29, 2024 Dr. Mejia Wheeler DO Attending Provider Active Start: March 29, 2024 Dr. Mejia Wheeler DO Other Provider Active S tart: March 29, 2024 Team Status: Inactive Member Role Status Dates Dr. Marcel Moya MD Primary Care Provider Active Start: April 02, 2024 End: April 02, 2024 Dr. Marcel Moya MD Attending Provider Active Start: April 02, 2024 End: April 02, 2024 Dr. Marcel Moya MD Referring Provider Active Start: April 02, 2024 End: April 02, 2024 Team Status: Inactive Member Role Status Dates Dr. Marcel Moya MD Primary Care Provider Active Start: April 05, 2024 End: April 05, 2024 Dr. Marcel Moya MD Attending Provider Active Start: April 05, 2024 End: April 05, 2024 Dr. Marcel Moya MD Referring Provider Active Start: April 05, 2024 End: April 05, 2024 Team Status: Inactive Member Role Status Dates STEFFI SHEA Attending Provider Active Start: 2024 End: April 13, 2024 [facility] Primary Care Provider Active Start: April 05, 2024 End: April 13, 2024 Dr. Marcel Moya MD Referring Provider Active Start: April 05, 2024 End: April 13, 2024 Team Status: Active Member Role Status Dates Dr. Marcel Moya MD Primary Care Provider Active Start: April 10, 2024 LEÓN SANCHEZ Attending Provider Active Start: 2024 LEÓN SANCHEZ Referring Provider Active Start: 2024 Team Status: Active Member Role Status Dates Dr. Marcel Moya MD Primary Care Provider Active Start: April 11, 2024 Dr. Shabbir Kapadia MD Attending Provider Active S tart: April 11, 2024 Dr. Shabbir Kapadia MD Referring Provider Active S tart: April 11, 2024 Team Status: Active Member Role Status Dates Dr. Marcel Moya MD Primary Care Provider Active Start: April 11, 2024 Dr. Jasen Parra MD Attending Provider Active Start: April 11, 2024 Team Status: Active Member Role Status Dates Dr. Marcel Moya MD Primary Care Provider Active Start: April 17, 2024 Dr. Marcel Moya MD Attending Provider Active Start: April 17, 2024 Dr. Marcel Moya MD Referring Provider Active Start: April 17, 2024 Team Status: Active Member Role Status Dates Dr. Marcel Moya MD Primary Care Provider Active Start: April 19, 2024 Dr. Marcel Moya MD Attending Provider Active Start: April 19, 2024 Dr. Marcel Moya MD Referring Provider Active Start: April 19, 2024 Team Status: Inactive Member Role Status Dates Dr. Marcel Moya MD Primary Care Provider Active Start: April 19, 2024 End: April 19, 2024 Dr. Marcel Moya MD Attending Provider Active Start: April 19, 2024 End: April 19, 2024 Dr. Marcel Moya MD Referring Provider Active Start: April 19, 2024 End: April 19, 2024 Team Status: Inactive Member Role Status Dates Dr. Marcel Moya MD Primary Care Provider Active Start: April 10, 2024 End: April 10, 2024 LEÓN SANCHEZ Attending Provider Active Start: [place] 2024 End: April 10, 2024 LEÓN SANCHEZ Referring Provider Active Start: [facility] 2024 End: April 10, 2024 Team Status: Inactive Member Role Status Dates Dr. Marcel Moya MD Primary Care Provider Active Start: April 11, 2024 End: April 11, 2024 Dr. Shabbir Kapadia MD Attending Provider Active S tart: April 11, 2024 End: April 11, 2024 Dr. Shabbir Kapadia MD Referring Provider Active S tart: April 11, 2024 End: April 11, 2024 Team Status: Inactive Member Role Status Dates Dr. Macrel Moya MD Primary Care Provider Active Start: April 17, 2024 End: April 17, 2024 Dr. Marcel Moya MD Attending Provider Active Start: April 17, 2024 End: April 17, 2024 Dr. Marcel Moya MD Referring Provider Active Start: April 17, 2024 End: April 17, 2024 Team Status: Inactive Member Role Status Dates STEFFI SHEA Attending Provider Active Start: [facility] 2024 End: May 04, 2024 Dr. Marcel Moya MD Primary Care Provider Active Start: May 04, 2024 End: May 04, 2024 Dr. Marcel Moya MD Referring Provider Active Start: May 04, 2024 End: May 04, 2024 Team Status: Inactive Member Role Status Dates Dr. Marcel Moya MD Primary Care Provider Active Start: May 19, 2024 End: May 19, 2024 Dr. Marcel Moya MD Attending Provider Active Start: May 19, 2024 End: May 19, 2024 Dr. Marcel Moya MD Referring Provider Active Start: May 19, 2024 End: May 19, 2024 Team Status: Inactive Member Role Status Dates STEFFI SHEA Attending Provider Active Start: [facility] 2024 End: June 13, 2024 Dr. Marcel Moya MD Primary Care Provider Active Start: May 25, 2024 End: June 13, 2024 Dr. Marcel Moya MD Referring Provider Active Start: May 25, 2024 End: June 13, 2024 Team Status: Inactive Member Role Status Dates STEFFI SHEA Attending Provider Active Start: Cem meeks 2024 End: July 06, 2024 Dr. Marcel Moya MD Primary Care Provider Active Start: July 06, 2024 End: July 06, 2024 Dr. Marcel Moya MD Referring Provider Active Start: July 06, 2024 End: July 06, 2024 Source Comments (unrecognize d section and content) In the event this informatio n is protected by the Federal Confidentiality of Alcohol and Drug Abuse Patient Records regulations: The Federal rules restrict any use of the information to criminally investigate or prosecute any alcohol or drug abuse patient.[facility] the event this information is protected by the Federal Confidentiality of Alcohol and Drug Abuse Patient Records regulations: The Federal rules restrict any use of the information to criminally investigate or prosecute any alcohol or drug abuse patient.[facility] the event this information is protected by the Federal Confidentiality of Alcohol and Drug Abuse Patient Records regulations: The Federal rules restrict any use of the information to criminally investigate or prosecute any alcohol or drug abuse patient.[facility] the event this information is protected by the Federal Confidentiality of Alcohol and Drug Abuse Patient Records regulations: The Federal rules restrict any use of the information to criminally investigate or prosecute any alcohol or drug abuse patient.[facility] the event this information is protected by the Federal Confidentiality of Alcohol and Drug Abuse Patient Records regulations: The Federal rules restrict any use of the information to criminally investigate or prosecute any alcohol or drug abuse patient.[facility] the event this information is protected by the Federal Confidentiality of Alcohol and Drug Abuse Patient Records regulations: The Federal rules restrict any use of the information to criminally investigate or prosecute any alcohol or drug abuse patient.[facility] the event this information is protected by the Federal Confidentiality of Alcohol and Drug Abuse Patient Records regulations: The Federal rules restrict any use of the information to criminally investigate or prosecute any alcohol or drug abuse patient.[facility] the event this information is protected by the Federal Confidentiality of Alcohol and Drug Abuse Patient Records regulations: The Federal rules restrict any use of the information to criminally investigate or prosecute any alcohol or drug abuse patient.[facility] the event this information is protected by the Federal Confidentiality of Alcohol and Drug Abuse Patient Records regulations: The Federal rules restrict any use of the information to criminally investigate or prosecute any alcohol or drug abuse patient.[facility] the event this information is protected by the Federal Confidentiality of Alcohol and Drug Abuse Patient Records regulations: The Federal rules restrict any use of the information to criminally investigate or prosecute any alcohol or drug abuse patient.[facility] the event this information is protected by the Federal Confidentiality of Alcohol and Drug Abuse Patient Records regulations: The Federal rules restrict any use of the information to criminally investigate or prosecute any alcohol or drug abuse patient.[facility] the event this information is protected by the Federal Confidentiality of Alcohol and Drug Abuse Patient Records regulations: The Federal rules restrict any use of the information to criminally investigate or prosecute any alcohol or drug abuse patient.[facility] the event this information is protected by the Federal Confidentiality of Alcohol and Drug Abuse Patient Records regulations: The Federal rules restrict any use of the information to criminally investigate or prosecute any alcohol or drug abuse patient.[facility] the event this information is protected by the Federal Confidentiality of Alcohol and Drug Abuse Patient Records regulations: The Federal rules restrict any use of the information to criminally investigate or prosecute any alcohol or drug abuse patient.[facility] the event this information is protected by the Federal Confidentiality of Alcohol and Drug Abuse Patient Records regulations: The Federal rules restrict any use of the information to criminally investigate or prosecute any alcohol or drug abuse patient.[facility] the event this information is protected by the Federal Confidentiality of Alcohol and Drug Abuse Patient Records regulations: The Federal rules restrict any use of the information to criminally investigate or prosecute any alcohol or drug abuse patient.[facility] the event this information is protected by the Federal Confidentiality of Alcohol and Drug Abuse Patient Records regulations: The Federal rules restrict any use of the information to criminally investigate or prosecute any alcohol or drug abuse patient.[facility] the event this information is protected by the Federal Confidentiality of Alcohol and Drug Abuse Patient Records regulations: The Federal rules restrict any use of the information to criminally investigate or prosecute any alcohol or drug abuse patient.[facility] the event this information is protected by the Federal Confidentiality of Alcohol and Drug Abuse Patient Records regulations: The Federal rules restrict any use of the information to criminally investigate or prosecute any alcohol or drug abuse patient.[facility] the event this information is protected by the Federal Confidentiality of Alcohol and Drug Abuse Patient Records regulations: The Federal rules restrict any use of the information to criminally investigate or prosecute any alcohol or drug abuse patient.[facility] the event this information is protected by the Federal Confidentiality of Alcohol and Drug Abuse Patient Records regulations: The Federal rules restrict any use of the information to criminally investigate or prosecute any alcohol or drug abuse patient.[facility] the event this information is protected by the Federal Confidentiality of Alcohol and Drug Abuse Patient Records regulations: The Federal rules restrict any use of the information to criminally investigate or prosecute any alcohol or drug abuse patient.[facility] the event this information is protected by the Federal Confidentiality of Alcohol and Drug Abuse Patient Records regulations: The Federal rules restrict any use of the information to criminally investigate or prosecute any alcohol or drug abuse patient.[facility] Care Team (unrecognized sect ion and content) Care Team Personnel Name: [facility] Position: Physician Member Role: Primary Care Physician Address: Address: [address] [place] [address] Care Team Personnel Name: [facility], [facility] Position: Physician Member Role: Primary Care Physician Address: Address: [address] [place] [address] Care Team Personnel Name: [facility], [facility] Position: Physician Member Role: Primary Care Physician Address: Address: [address] [place] [address] Care Team Personnel Name: [facility], [facility] Position: Physician Member Role: Primary Care Physician Address: Address: [address] [place] [address] Care Team Personnel Name: [facility], [facility] Position: Physician Member Role: Primary Care Physician Address: Address: [address] [place] [address] Care Team Personnel Name: [facility], [facility] Position: Physician Member Role: Primary Care Physician Address: Address: [address] [place] [address] Name: Shereen Boykin RN Position: AO RN Member Role: ED RN Name: JENNIFER MINOR DO Position: ED Physician Member Role: Attending Physician Address: Address: [facility] [address] Care Team Personnel Name: [facility] Position: Physician Member Role: Primary Care Physician Address: Address: [address] [place] [address] Name: MD [address] MD Position: ED Physician Member Role: ED Physician Address: [facility] [address] Name: Jodi Martinez RN Position: ED RN Member Role: ED RN Care Team Personnel Name: [place], [facility] Position: Physician Member Role: Primary Care Physician Address: Address: [address] [place] [address] Goals (unrecognized section and content) Goals may be documented in a n alternate section Reason for Visit (unrecogniz ed section and [...] EST PATIENT Self Jayashree Hernandez MD [address] [place] [id number] Referral ID Status Reason Start Date Expiration Date Visits Re quested Visits Authorized [id number] Closed 11/24/2022 08/24/2023 1 1 Reason Comments [...] MIN EST PATIENT Jayashree Hernandez MD [address] [place] [address] Jayashree Hernandez MD [address] [facility] [address] [place] [id number] Referral ID Status Reason Start Date Expiration Date Visits Re quested Visits Authorized [id number] Closed 11/24/2022 12/01/2023 1 1 Reason Comments Appointment Patient Question Reason Comments Patient Update Reason Comments Established Patient Reason Comments Medical Clearance Reason Comments Radiology US Specialty Diagnoses / Procedures Referred By Contac t Referred To Contact US IMAGING Diagnoses Gastroesophageal reflux disease with esophagitis without hemorrhage Procedures US ABD RIGHT UPPER QUADRANT US ABDOMINAL REAL TIME W/IMAGE LIMITED Jayashree Hernandez MD [address] [place] [address] [facility] [address] Referral ID Status Reason Start Date Expiration Date V isits Requested Visits Authorized [id number] Closed Auto-Generate d Referral 07/28/2023 08/26/2024 1 1 Reason Comments GERD Reason Comments MDT FOR RECORDS PERTAINING TO PATIENTS WHO ARE [...] BE BASED ON THE PRIMARY CLINICAL RECORDS. [employer] [facility]. provides no warranty or guarantee of the accuracy or completeness of information in this document.
--- NOTE | 2024-07-30 17:46 | CA.SCORE ---
Calcium Scoring Date of Study:: 07/20/24 Indications Indications: Screening Coronary Calcium Scoring: High-resolution Computed Tomographic imaging of the chest was performed on [07/20/24 ], with particular attention paid to the coronary arteries. Images from the examination were analyzed for the presence and extent of coronary artery calcification , using coronary calcium quantification software. The patient tolerated the procedure well and there were no complications. The results of the coronary calcification analysis are provided below. Findings Coronary Artery Left Main (LM): 0 Left Anterior Descending (LAD): 23 Left Circumflex (LCX): 0 Right Coronary Artery (RCA): 0 Total Agatston Score: 23 Percentile Rankin% Calcium Scoring Interpretation: Different methods to categorize the overall amount of coronary plaque. Overall amount CAC SIS Visual of coronary plaque P1 Mild -100 <2 1-2 vessels with mild amount of plaque P2 Moderate 101-300 3-4 1-2 vessels with moderate amount, 3 vessels with mild amount of plaque P3 Severe 301-999 5-7 3 vessels with moderate amount, 1 vessel with severe amount of plaque P4 Extensive >1000 >8 2-3 vessels with severe amount of plaque Calcium Score: Mild: 1-2 vessels w/mild amount of plaque Conclusion: Minimal atherosclerotic plaquing.
== END | disposition home or self-care (01) ==
PROVIDERS: PCP Family Medicine Geriatric Medicine; Referring Provider Family Medicine Geriatric Medicine; Visit Provider Family Medicine Geriatric Medicine
DX: Z13.6 Encounter for screening for cardiovascular disorders (principal)
CPT/HCPCS: 75571; 76380

== ENCOUNTER 2024-07-21 10:22 | Emergency (ER) | payer OTHER, SELFPAY ==
[2024-07-21 10:23] VITALS: BP 160/89; PULSE 65; RESP 21; TEMP 36.8; O2SAT 100; BMI 31.6
--- NOTE | 2024-07-21 10:45 | CM.ED ---
Social Work Date of referral: 07/21/24 Reason for Referral: Rapid Response Team ([employer]) child welfare worker responded to [employer] code. Supervisor Waterproofing provided support to patient while waiting for the rest of the MACHINE WOODWORKING SANDER to arrive and accompanied patient to the ED. As staff began to take patient to her room to medically treat, professor of social work left. (end time: 10:18) child welfare worker went to the room of patient to check on her to see how she is feeling. Patient stated she is feeling better however is still bleeding. Patient stated she is otherwise doing ok and denied a need for any additional support at this time. (end time: 10:47) Cecy Bauer, ARNP, [employer]
[2024-07-21] MEDS: Oxymetazoline 0.05% 1 SPRAY SPRAY.BTL 2 SPRAY NASAL (10:57)
--- NOTE | 2024-07-21 11:02 | EDS_ITS ---
HPI History of Present Illness Chief Complaint: Nosebleed Narrative Narrative: Patient is a 59-year-old female with past medical history of recent mechanical valve replacement on warfarin, hypertension, hyperlipidemia thoracic aortic aneurysm who presented to the emergency department the chief complaint of nosebleed. Patient states that she was at work she went to the vending machine to get something to eat and sat down and noted that she felt like her nose started running and all of a sudden noted that she started pouring blood out of her nose. She states that she has never had nosebleeds in the past. States that her INR was just checked recently was normal. [facility] Medical History Acute upper GI bleeding Thoracic aortic aneurysm Nonrheumatic aortic (valve) insufficiency Bicuspid aortic valve Hyperlipidemia GERD (gastroesophageal reflux disease) History of malignant neoplasm of cervix Abnormal Pap smear of cervix Hypertension Home Medications ?Medication ?Instructions ?Recorded ?Last Taken ?Type pantoprazole 40 mg tablet,delayed 40 mg PO BID reflux 01/28/24 03/28/24 History release warfarin 3 mg tablet 3 mg PO SUTUTHSA BLOOD THINN ER 03/28/24 03/27/24 History warfarin 3 mg tablet (Jantoven) 4.5 mg PO MOWEFR BLOOD THINNER 03/28/24 03/28/24 History Allergy/AdvReac Type Severity Reaction Status Date / Time No Known Allergies Allergy Verified 04/19/24 12:34 Family History Grandmother Heart disease Mother Heart disease Surgical History Status post aortic valve replacement (~05/28/09) History of thoracic aortic aneurysm repair (~05/28/09) History of aortic valve replacement with metallic valve (~05/28/09) delivery delivered S/P gastroplasty Hx of cholecystectomy femur surgery Mechanical heart valve present Hx of abdominal hysterectomy Social History Smoking Status: Never smoker alcohol intake: never substance use type: does not use caffeine: Yes what type of physical activity do you participate in: running and other details: crossfit frequency: 3-4 times per week seatbelt use: always do you feel safe at home: Yes additional social history: WoodyGuillermina [employer] 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 ROS ROS ED ROS Narrative Constitutional: Denies fevers, chills, headaches Eyes, ears, nose, throat: Complains of nosebleed as noted above Cardiovascular: Denies chest pain Respiratory: Shortness of breath Neurological: Denies numbness, weakness, tingling Musculoskeletal: Denies back pain Skin: Denies rashes or lesions EXAM Physical Exam Narrative Exam Narrative: General: Patient lying in bed rest comfortably did not appear to be acute distress Head: Atraumatic, normocephalic Eyes, ears, nose, throat: Patient has epistaxis noted coming from the right nare no obvious bleeding site coming from the right nare when visualized, some bleeding coming from the left nostril suspect that this is bleeding coming from the right nare, some blood noted in the posterior pharynx however no active hemorrhage noted Neck: Soft, supple, trachea midline Cardiovascular: Regular rate and rhythm Respiratory: Clear to auscultation bilaterally Neurological: Patient follow commands as she was at [facility] year is 2024 Skin: Warm, dry contact no rashes or lesions noted Const Vital Signs: 07/21/24 10:23 07/21/24 12:22 07/21/24 12:46 Temperature 98.3 F 97.7 F L Temperature Source Temporal Pulse Rate 65 68 68 Respiratory Rate 21 H 19 H 17 Blood Pressure 160/89 H 126/67 H 126/67 H Blood Pressure Mean 112 86 86 Pulse Ox 100 100 100 Oxygen Delivery Method Room Air Room Air MDM MDM MDM Narrative Medical decision making narrative: Patient is a 59-year-old female who presented to the emergency department from work with chief complaint of epistaxis. Patient had active bleeding noted when she arrived to the emergency department. On the differential diagnose includes but not limited to epistaxis secondary to hypertension, supratherapeutic INR, thrombocytopenia. Once workup is obtained reviewed she will be reevaluated. Patient CBC reviewed showed no evidence leukocytosis white blood count 6.1, he was 13, platelet count normal at 235. Patient sodium was 139, potassium normal at 4.2, creatinine was 0.65. Patient's INR was noted to be 2.6 in the therapeutic range between 2.5 and 3 for her mechanical valve. Nasal clip was applied and she had persistent bleeding therefore I had her blow her nose several times Afrin was applied into the right nare followed by attempted soaked cotton ball followed by nasal clip however the cottonball fell out therefore Merisel was placed. Prior to Merisel placement patient was asked to blow her nose again and a large clot was dislodged from the right nare. Will observe the patient. Patient was observed with Merisel in place and had no active bleeding after approximately 15 to 20 minutes therefore this was removed. She was observed for another approximately 10 minutes with no bleeding. She got up and ambulated around the emergency department and was observed further. After 15 more minutes the patient had no further bleeding her blood pressure normalized she would like to go home at this point in time. She is advised to return with worsening symptoms or concerns she is advised to keep a close eye on her blood pressure and return with any other concerns or symptoms. She is advised follow-up with her primary care physician as well. All question concerns answered she was discharged home in stable condition. Lab Data Labs: Laboratory Results - last 24 hr 07/21/24 10:52 WBC 6.1 RBC 4.38 Hgb 13.0 Hct 38.2 MCV 87.2 MCH 29.7 MCHC 34.0 RDW Std Deviation 42.5 RDW Coeff of Peterson 13.2 Plt Count 235 MPV 9.6 Immature Gran % (Auto) 0.200 Neut % (Auto) 59.6 Lymph % (Auto) 27.5 Starke % (Auto) 7.9 Eos % (Auto) 4.1 Baso % (Auto) 0.7 Absolute Neuts (auto) 3.6 Absolute Lymphs (auto) 1.67 Nucleated RBC % 0 PT 28.8 H INR 2.6 APTT 45.4 H Sodium 139 Potassium 4.2 Chloride 105 Carbon Dioxide 23.2 Anion Gap 11 BUN 24 H Creatinine 0.65 L Estim Creat Clear Calc 97.42 Est GFR (MDRD) Non-Af 101 BUN/Creatinine Ratio 37.0 H Glucose 96 Calcium 9.4 Discharge Plan Triage Chief Complaint: Nosebleed ED Provider: Bi Luong Dx/Rx/DC Orders Clinical Impression: Epistaxis Prescriptions: No Action pantoprazole 40 mg tablet,delayed release (DR/EC) 40 mg PO BID warfarin [Jantoven] 3 mg tablet 4.5 mg PO MOWEFR Rx Instructions: 3MG- SUN, TUES, THUR, SAT 4.5MG- TUE, TUE, TUE warfarin 3 mg tablet 3 mg PO SUTUTHSA Rx Instructions: 3MG- SUN, TUES, THUR, SAT 4.5MG- TUE, TUE, TUE Primary Care Provider: Marcel Moya Chi Referrals: Marcel Moya Chi, MD [Primary Care Provider] - Activity Restrictions/Additional Instructions: Follow-up with your primary care physician outpatient setting. Keep a close eye and your blood pressure. Return with worsening symptoms or concerns. Your INR today was 2.6. Print Language: Indonesian Disposition Disposition: Home, Self Care
--- OUTSIDE RECORDS SUMMARY | 2024-07-21 11:05 | XMS RPT_ITS | CCD ---
Author Organization [facility] Care Team Providers Care Corporate Security Manager Name Role Phone Charles FISHMAN, Jodi Dejesus Unavailable [phone] Ashley GUERIN, Tanner Borja Unavailable Chance Carolina Admitting Unavailable Chance Carolina Attending Unavailable Miya Goldman Primary Care Unavailable Kristyn Montiel Unavailable Unavailable [place] Primary Care Physician Unavailable Primary Care Provider Unavailabl e [facility] Primary Care Provider [facility] Primary Care Provider SHARON BLAKELY DO Attending Unavailable [facility] Primary Care Unavailable DR KARRIE KAPADIA MD Attending Unavailable [facility] Primary Care Unavailable DR KARRIE KAPADIA MD Attending Unavailable [facility] Primary Care Unavailable DR CHET AVILA MD Attending Unavailabl e [facility] Primary Care Unavailable DR CHET AVILA MD Attending Unavailabl e [place] Primary Care Unavailable CARMEN MARES Attending Unavailable [facility] Primary Care Unavailable BROOKE ESPINOZA DO Attending Unavailable [facility] Primary Care Unavailable CARMEN MARES Attending Unavailable [facility] Primary Care Unavailable CHERRY HERNANDEZ Referring Unavailable [facility] Primary Care Unavailable JENNIFER SALAS Referring Unavailable [facility] Primary Care Unavailable [facility] Primary Care Unavailable GISELA, CHERRY Referring Unavailable FREDERICK COLVIN Attending Unavailable [facility] Primary Care Unavailable GISELACHERRY BECKHAM Attending Unavailable GISELA, CHERRY Referring Unavailable GISELACHERRY Attending Unavailable GISELA, CHERRY Referring Unavailable GISELARASHITA Attending Unavailable GISELARASHI BECKHAMTA Attending Unavailable IGSELA, CHERRY Referring Unavailable [facility] Primary Care Unavailable JENNIFER SALAS Attending Unavailable [facility] Primary Care Unavailable ANGELA HUMPHRIES Attending Unavailable [facility] Primary Care Unavailable KARRIE KAPADIA Attending Provider STAVROU, KARRIE Referring Provider [facility] [place] [facility] [place] [facility] [place] Referring Provider Unavailable Jaycee SWAGING MACHINE OPERATOR-CMy Attending Provider Jaycee SWAGING MACHINE OPERATOR-C, My Referring Provider Griffin GUERIN, Dr. Marcel Hudson Attending Provider Angela Lane Attending Provider Shonna GUERIN, Dr. Shea Attending Provider Dr. Karrie Kapadia MD Referring Provider Griffin GUERIN, Dr. Marcel Hudson Referring Provider Sharath Forrest MD Emergency Provider [phone] Griffin GUERIN, Dr. Marcel Hudson Primary Care Provider [phone] Dr. Mejia Wheeler DO Admit Provider Summer ROSA, Dr. Ba Attending Provider Dr. Mejia Wheeler DO Referring Provider Summer ROSA, Dr. Ba Other Provider Dr. Trung Payne DO Attending Provider DANIEL TRAORE Attending Provider Unavailable DANIEL TRAORE Referring Provider Unavailable Aida GUERIN, Dr. Aggarwal Attending Provider KARRIE KAPADIA Attending Provider STAKARRIE NAZARIO Referring [facility] Primary Care Provider Unavailabl [facility] Referring Provider Unavailable Jaycee SWAGING MACHINE OPERATOR-CMy Attending Provider Jaycee SWAGING MACHINE OPERATORGuillerminaC, My Referring Provider Griffin GUERIN, Dr. Marcel Hudson Attending Provider Angela Lane Attending Provider Shonna GUERIN, Dr. Shea Attending Provider Shonna GUERIN, Dr. Shea Referring Provider Griffin GUERIN, Dr. Marcel Hudson Referring Provider Sharath Forrest MD Emergency Provider Griffin GUERIN, Dr. Marcel Hudson Primary Care Provider Summer ROSA, Dr. Ba Admit Provider Summer DO, Dr. Ba Attending Provider Summer DO, Dr. Ba Referring Provider Terkartik DO, Dr. Ba Other Provider Elmer ROSA, Dr. Nino Attending Provider DANIEL TRAORE Attending Provider Unavailable DANIEL TRAORE Referring Provider Unavailable Aida GUERIN, Dr. Aggarwal Attending [place] Primary Care Provider Unavailabl e STAELISABETOU, KARRIE Attending Provider [phone] STAVROU, KARRIE Referring Provider [place] [place] Primary Care Provider Unavailabl lidia Moya MD, Dr. Marcel Hudson Attending Provider STAELISABETOU, KARRIE Attending Provider Shonna GUERIN, Dr. Shea Attending Provider Dr. Karrie Kapadia MD Referring Provider Marcel Moya Chi Attending Unavailable Griffin, Marcel Chi Referring Unavailable Griffin, Marcel Chi Primary Care Unavailable Ochoa, Tacho Primary Care Unavailable Stavrou, Karrie Attending Unavailable Ochoa, Tacho Primary Care Unavailable KHAVARI, FERESHTE Referring Unavailable KHAVARI, FERESHTE Attending Unavailable Griffin, Marcel Chi Primary Care Unavailable KHAVARI, FERESHTE Attending Unavailable KHAVARI, FERESHTE Referring Unavailable Ochoa, Tacho Primary Care Unavailable KHAVARI, FERESHTE Attending Unavailable Stavrou, Karrie Attending Unavailable Stavrou, Karrie Referring Unavailable Griffin, Marcel Chi Primary Care Unavailable Griffin, Marcel Chi Attending Unavailable Griffin, Marcel Chi [facility] Un[facility] Griffin, Marcel Chi Primary Care Unavailable Tereletsky Mejia Admitting Unavailable Tereletsky Mejia Attending Unavailable [place], My Attending Unavailable Jaycee, My Referring [facility]available [facility] Unavailable KHAVARI, FERESHTE Referring [facility]available [facility] Unavailable KHAVARI, FERESHTE Attending [facility] Unavailable Tylor Velasquez Attending Unavailable Griffin, Marcel Chi Attending Unavailable Griffin, Marcel Chi Referring Unavailable Griffin, Marcel Chi Primary Care Unavailable Griffin, Marcel Chi Referring Unavailable Griffin, Marcel Chi Primary Care Unavailable KHAVARI, FERESHTE Attending Unavailable Griffin, Marcel Chi Referring Unavailable Griffin, Marcel Chi Attending Unavailable Griffin, Marcel Chi Primary Care Unavailable Griffin, Marcel Chi Referring Unavailable Griffin, Marcel Chi Primary Care Unavailable KHAVARI, FERESHTE Attending Unavailable Griffin, Marcel Chi [facility]ending [facility] Unavailable Griffin, Marcel Chi Referring Unavailable Griffin, Marcel Chi Primary Care Unavailable KHAVARI, FERESHTE Attending Unavailable Griffin, Marcel Chi Referring Unavailable Griffin, Marcel Chi Attending Unavailable Griffin, Marcel Chi Primary Care Unavailable Griffin, Marcel Chi Attending Unavailable Griffin, Marcel Chi Referring Unavailable Griffin, Marcel Chi Primary Care Unavailable Griffin, Marcel Chi Referring Unavailable Griffin, Marcel Chi Attending Unavailable Griffin, Marcel Chi Primary Care Unavailable Stavrou, Karrie Attending Unavailable Stavrou, Karrie Referring [facility] Unavailable Griffin, Marcel Chi Primary Care Unavailable Mejia Wheeler Admitting Unavailable Mejia Wheeler Consulting Unavailable Mejia Wheeler Attending Unavailable Stavrou, Karrie Attending Unavailable Ochoa, Tacho Primary Care Unavailable Tereletsky, Mejia Referring Unavailable Trung aPyne Attending Unavailable My Champion Attending [facility] Ref[facility] Unavailable Angela Walker Attending [facility] Referring Unavailable Ochoa, Tacho Primary Care Unavailable Jose L Rodas Attending Unavailable Stavrou, Karrie Consulting Unavailable Griffin, Marcel Chi Attending [facility] Unavailable Griffin, Marcel Chi Referring Unavailable KHAVARIANTONYESHTE Attending Unavailable [facility] Unavailable KHAVARI, FERESHTE Referring Unavailable KHAVARI, FERESHTE Attending Unavailable Griffin, Marcel Chi Referring Unavailable Griffin, Marcel Chi Primary Care Unavailable KHEZEQUIELRIANTONYESHTE Attending Unavailable Griffin, Marcel Chi Primary Care Unavailable Jasen Parra Attending Unavailable Angela Walker Attending Unavailable Angela Walker Referring [facility]available [facility] [place] Primary Care Unavailable Tacho Ochoa Primary Care Unavailable ANKITRI, FERESHTE Referring Unavailable DIANA WINSTONTE Attending Unavailable Tylor Velasquez Attending Unavailable [facility] [place] Primary Care Unavailable [facility], [place] Primary Care Unavailable Tylor Velasquez Attending Unavailable Tylor Velasquez Referring Unavailable [facility], [place] Primary Care Unavailable Tylor Velasquez Attending Unavailable Griffin, Marcel Chi Referring Unavailable Griffin, Marcel Chi Attending Unavailable Griffin, Marcel Chi Primary Care Unavailable Allergies Allergy Classification Reported Allergen(s) Allergy Type Date of Onset Reaction(s) Facility Benzodiazepines (1 source) Temazepam Drug Allergy 01-06-20 10 Other: See Comments [facility] Work Phone: HMG-CoA Reductase Inhibitors (statins) (3 sources) atorvastatin Drug Allergy 10-14-19 10 Other: See Comments [facility] Work Phone: Macrolides (antibiotic) (1 source) Clarithromycin Drug Allergy 05-27-19 24 GI Upset [facility] (3 sources) traMADol; Translations: [TRAMADOL] food allergy 06-12-19 15 [facility] Work Phone: (1 source) No Known Medication Allergies; Translations: [No Known Medication Allergies] Propensity to adverse reactions to drug (disorder) [facility] Repository (20 sources) Pravastatin; Translations: [PRAVASTATIN SODIUM] Drug Allergy 10-14-19 10 [facility] Work Phone: (20 sources) Temazepam; Translations: [TEMAZEPAM] Drug Allergy 01-06-20 10 Other: See Comments [facility] Work Phone: (20 sources) atorvastatin; Translations: [ATORVASTATIN] Drug Allergy 04-18-19 24 Other: See Comments [facility] Work Phone: (20 sources) rosuvastatin; Translations: [ROSUVASTATIN] Drug Allergy 04-28-19 24 Other: See Comments [facility] Work Phone: (20 sources) Clarithromycin; Translations: [CLARITHROMYCIN] Drug Allergy 05-27-19 24 GI Upset [facility] Medications Current Medications Medication Drug Class(es) [...] mouth 1 hr prior to procedure AMOXICILLIN [id number] Tanner Ramirez MD Comment on above: Take 2 tablets by [facility] two times a day for [...] above: Take 1 tablet by rui th four times daily for 14 days. clarithromycin 500 mg oral tablet (5 sources) Macrolide Antimicrobial Start: 05-17-2023 End: 05-31-2023 take 1 tablet by mouth twice daily clarithromycin (BIAXIN) 500 mg Indications: Helicobacter pylori gastritis Take 1 tablet by mouth two times a day for 14 days. 28 tablet 0 05/17/2023 05/31/2023 Active Comment on above: Take 1 tablet by rui two times a day for 14 days. [...] rui four times daily for 14 days. Multivitamin [...] on above: Take 1 capsule by mo [facility] before meals and at bedtime for 14 days. topiramate 25 mg oral tablet (18 sources) Start: 09-07-19 topiramate 25 mg oral tablet 0 Refill(s) Start Date: 09/06/21 Status: Ordered Start: 12-24-2014 End: 07-02-2016 take 1 tablet by mouth once daily TOPAMAX 50 MG TABS One tablet by mouth daily TOPIRAMATE [id number] Tanner Ramirez MD Start: 12-24-2014 TOPAMAX 25 MG TABS as needed for migraine headaches TOPIRAMATE [id number] Shiela Nguyen RN trospium chloride 20 mg [...] on above: Take 1,000 mcg by mo [facility] once daily. Completed/Discontinued Medications Medication Drug Class(es) [...] 6 HOURS NEEDED as needed for Pain 01 16February 03, 2020 February 05, 2020 1:00am February 06, 2020 1:02am Start: 02-03-2020 End: 02-06-2020 take 1 tablet by mouth every six hours as needed Oxycodone-Acetaminophen Discontinued 1 TABLET PO EVERY 6 HOURS NEEDED 01 16February 03, 2020 February 06, 2020 1:02am Start: [...] TBEC One tablet by mouth daily ASPIRIN [id number] Tanner Ramirez MD Start: 07-02-2016 take 1 tablet by rui th once daily ASPIR-81 81 MG TBEC One tablet by mouth daily ASPIRIN [id number] Tanner Ramirez MD Start: 06-11-2014 End: 06-13-2014 take 1 tablet by mouth once daily ASPIRIN 81 MG TABS One tablet by mouth daily ASPIRIN [id number] Tanner Ramirez MD Start: 06-11-2014 End: 06-13-2014 take 1 tablet by mouth once daily ASPIRIN 81 MG TABS One tablet by mouth daily ASPIRIN [id number] Tanner Ramirez MD cephalexin 500 mg oral capsule [...] One tablet by mouth daily CITALOPRAM HYDROBROMIDE [id number] Tanner Ramirez MD Collegan peptides (11 sources) Start: 05-19-2021 Collegan peptides Collegan peptides, See Instructions, 600 mg DAILY, 0 Refill(s), 84 Start Date: 05/19/21 Status: Ordered dexlansoprazole 30 mg disintegrating oral tablet (6 sources) Proton Pump Inhibitor Start: 06-11-2014 End: 03-03-2015 take 1 tablet by mouth once daily DEXILANT 30 MG CPDR One tablet by mouth daily DEXLANSOPRAZOLE [id number] Tanner Ramirez MD Start: 06-11-2014 End: 03-03-2015 take 1 tablet by mouth once daily DEXILANT 30 MG CPDR One tablet by mouth daily DEXLANSOPRAZOLE 86992807574 Tanner Ramirez MD ergocalciferol 05083 unt oral tablet (6 sources) Provitamin D2 Compound Start: 06-11-2014 End: 06-13-2014 take 1 tablet by mouth every week VITAMIN D (ERGOCALCIFEROL) 08720 UNIT CAPS One tablet by mouth weekly ERGOCALCIFEROL [id number] Tanner Ramirez MD Start: 06-11-2014 End: 06-13-2014 take 1 tablet by mouth every week VITAMIN D (ERGOCALCIFEROL) 44338 UNIT CAPS One tablet by mouth weekly ERGOCALCIFEROL [id number] Tanner Ramirez MD esomeprazole 40 mg injection (6 sources) Proton Pump Inhibitor Start: 06-11-2014 End: 06-13-2014 take 1 tablet by mouth once daily NEXIUM 40 MG CPDR One tablet by mouth daily ESOMEPRAZOLE MAGNESIUM 26393760751 Lita Crocker RN Start: 06-11-2014 End: 06-13-2014 take 1 tablet by mouth once daily NEXIUM 40 MG CPDR One tablet by mouth daily ESOMEPRAZOLE MAGNESIUM 22873081271 Lita Crocker RN estradiol 1 mg oral [...] One tablet by mouth daily FERROUS SULFATE [id number] Tanner Ramirez MD Start: 06-11-2014 take 1 tablet by rui once daily IRON 325 (65 Fe) MG TABS One tablet by mouth daily FERROUS SULFATE [id number] Lita Crocker RN hydroCHLOROthiazide 12.5 mg / [...] on above: Take 1 capsule by mo [facility] once daily. metoprolol tartrate 25 mg oral tablet (7 sources) beta-Adrenergic Taisha Start: 06-11-2014 End: 06-13-2014 take 1 tablet by mouth twice daily METOPROLOL TARTRATE 25 MG TABS One half tablet by mouth twice daily METOPROLOL TARTRATE [id number] Lita Crocker RN Start: 06-10-2011 take 1 tablet by rui once daily metoprolol succinate XL, long acting, (TOPROL XL) 25 mg ORAL 24 hr tablet Indications: Hypertension Take 1 tablet by mouth once daily. 30 tablet 5 06/10/2011 Active Comment on above: Take 1 tablet by rui th once daily. MULTIPLE VITAMIN (6 sources) Start: 06-11-2014 take 1 tablet by mouth once daily MULTIVITAMINS TABS One tablet by mouth daily MULTIPLE VITAMIN Lita Crocker RN Start: 06-11-2014 End: 06-13-2014 take 1 tablet by mouth once daily MULTIVITAMINS TABS One tablet by mouth daily MULTIPLE VITAMIN Tanner Ramirez MD Multivitamin 1 EACH powder i [...] by mouth daily OMEGA-3 FATTY ACIDS CPDR [id number] Lita Crocker RN Start: 06-11-2014 End: 06-13-2014 take 1 tablet by mouth once daily OMEGA 3 CPDR One tablet by mouth daily OMEGA-3 FATTY ACIDS CPDR [id number] Tanner Ramirez MD OMEGA-3 FATTY ACIDS CPDR (2 sources) Start: 06-11-2014 take 1 tablet by mouth once daily OMEGA 3 CPDR One tablet by mouth daily OMEGA-3 FATTY ACIDS CPDR [id number] Lita Crocker RN Start: 06-11-2014 End: 06-13-2014 take 1 tablet by mouth once daily OMEGA 3 CPDR One tablet by mouth daily OMEGA-3 FATTY ACIDS CPDR [id number] Tanner Ramirez MD ondansetron 4 mg disintegrating oral [...] HOURS NEEDED as needed for Severe Pain (-11/23) August 05, 2017 12:00am August 10, 2017 [...] TID, # 90 tab(s), 0 Refill(s), Pharmacy: [facility], 162.6, cm, 06/02/22 20:05:00 EDT, Height [...] mg tablet Discontinued 5 mg PO .COMPLEX 90 July 31, 2019 12:00am August 16, 2019 5:28pm 5 mg PO daily Tue through Tuesday; 0.5 tablet (2.5 mg) Sat and Sun; OR DIRECTED Please contact the information source for Protocol details. Start: 06-05-2019 End: 07-31-2019 take 2.5 mg by mouth once daily Warfarin 4 mg tablet Discontinued 4 mg PO DAILY 90 June 05, 2019 12:00am July 31, 2019 [...] take 0.5 tablet (2.5 mg) on Tue, ; or as directed Please contact the information [...] 6 mg by mouth once daily Warfarin (Jantoven) 5 MG tablet Discontinued 6 mg PO [...] at supper, or as directed WARFARIN SODIUM [id number] Jodi Wing PA-C Start: 10-22-2014 COUMADIN 2 MG TABS Take as directed-current dose is 2 mg alternating with 5 mg every other day WARFARIN SODIUM [id number] Tanner Ramirez MD Start: 10-22-2014 COUMADIN 2 MG TABS Take as directed-current dose is 2 mg alternating with 5 mg every other day WARFARIN SODIUM [id number] Tanner Ramirez MD Start: 08-01-2014 End: 06-29-2017 take [...] One tablet by mouth daily WARFARIN SODIUM [id number] Tanner Ramirez MD Start: 06-11-2014 End: 11-26-2014 COUMADIN 2.5 MG TABS Current ly takes 5 mg daily but if INR goes down, take additional 2.5 mg as directed; if INR goes up, take only 2.5 mg as directed WARFARIN SODIUM [id number] Tanner Ramirez MD Start: 06-11-2014 COUMADIN 2.5 M G TABS Take as directed WARFARIN SODIUM [id number] Lita Crocker RN Start: 10-13-2011 End: 03-28-2024 take [...] sources) Long-term current use of anticoagulant; Translations: [oysterman (current) use of anticoagulants] Episodic Other aftercare (1 source) Drug monitoring done; Translations: [Encounter for therapeutic drug level monitoring] Episodic Other aftercare (2 sources) Long-term current use of drug therapy; Translations: [Other oysterman (current) drug therapy] Episodic Other aftercare (2 sources) oysterman (current) use of anticoagulants; Translations: [oysterman (current) use of anticoagulants] Onset: 4 Episodic [...] Onset: 12-13-2023 Episodic Other aftercare (1 source) oysterman (current) use of bisphosphonates; Translations: [oysterman (current) use of bisphosphonates] Onset: 11-30-2023 Episodic Other disorders of stomach and duodenum (2 sources) Gastroparesis; Translations: [Gastroparesis] Onset: 03-02-2024 Episodic Other gastrointestinal disorders (2 sources) Bariatric surgery status; Translations: [History of bariatric surgery] Onset: 03-11-2023 Episodic Other gastrointestinal disorders (1 source) Diarrhea, unspecified; Translations: [Diarrhea, unspecified] Onset: 04-19-2024 Episodic Other liver diseases (1 source) Abnormal [...] Test Name Value Interpretation Reference Range Facility Limited Chest CT Cardiac Onl yon 07-20-[address] Cardiac Only [facility] Imaging Services [address] [place] [id number] Cardiac Only MR#: [id number] Acct: [id number] Name: JOÃO MUJICA Rep #: [id number] : 1965 F 59 From: Fransico Gross PCP: Dr. Marcel Moya MD Status: REG CLI Study: Limited Chest CT Cardiac Only Date of Exam: Exam# [id number] Ordering Dr: Marcel Moya MD PROCEDURE: LIMITED CHEST CT CARDIAC ONLY REASON FOR EXAM: ENCOUNTER FOR SCREENING FOR CARDIOVASCULAR DISORDERS TECHNIQUE: Prone and supine chest CT without contrast, high resolution CT (HRCT) protocol. Coronal and Sagittal reconstruction series were provided. One or more dose reduction techniques were used (e.g., Automated exposure control, adjustment of the mA and/or kV according to patient size, use of iterative reconstruction technique). COMPARISON: Chest CT of 02/03/2020. CT/Limited Chest CT Cardiac Only IMPRESSION: Partially aortic calcification is seen. An aortic valve replacement is in place. Limited imaging of the lungs demonstrates no acute process. No pleural effusion or pneumothorax is seen in visualized areas. No adenopathy is noted. The visualized upper abdomen demonstrates no significant abnormality. Reading Location: [address] CC: Dr. Marcel Moya MD Pharmacist Helper: Signed Normal [facility] International normalized rat io (INR) calculationon 07-06-2024 INR Coag (Bld) [Relative time] 2.6 {INR} [facility] Prothrombin Time w/INRon INR Coag (PPP) [Relative time] 2.6 {INR} Normal [facility] Comment on above: Performed By: #### L 300.3900 ####[facility] [address] [place], [place], [address] PT Coag (PPP) [Time] 28.1 s High 11.7-14.9 [facility] Comment on above: Performed By: #### L 300.3900 ####[facility] [address] [place], [address] Prothrombin timeon 5 PT Coag (PPP) [Time] 28.1 s High 11.7-14.9 [facility] International normalized rat io (INR) calculationon 05-25-2024 INR Coag (Bld) [Relative time] 2.9 {INR} [facility] Prothrombin Time w/INRon INR Coag (PPP) [Relative time] 2.9 {INR} Normal [facility] Comment on above: Performed By: #### L 300.3900, L100.0500 #### [facility] [address] [place], [address] PT Coag (PPP) [Time] 30.9 s High 11.7-14.9 [facility] Comment on above: Performed By: #### L 300.3900, L100.0500 #### [facility] [address] [place], [address] Prothrombin timeon 5 PT Coag (PPP) [Time] 30.9 s High 11.7-14.9 [facility] Absolute lymphocyte countOrd ered By: Marcel Moya on 05-19-2024 Lymphocytes Auto (Unsp spec) [#/Vol] 1.68 10*3/uL 0.83-4.51 [facility] Absolute neutrophil countOrd ered By: Marcel Moya on 05-19-2024 Neutrophils (Bld) [#/Vol] 7.0 10*3/uL 2.0-7.7 [facility] Anion gap in Serum or Plasma Ordered By: Marcel Moya on 05-19-2024 Anion gap [Moles/Vol] 13 mmol/L 5-15 [facility] Automated lymphocyte count a s percentage of total leukocytesOrdered By: Marcel Moya 05-19-2024 Lymphocytes/100 WBC Auto (Unsp spec) 17.5 % Low 19-41 [facility] BUN/creatinine ratioOrdered By: Marcel Moya on 05-19-2024 Urea nitrogen/Creatinine [Mass ratio] 23.2 mg/mg High 10-20 [facility] Basophil percentageOrdered B y: Marcel Moya on 05-19-2024 Basophils/100 WBC (Bld) 0.3 % 0-1 [facility] Bilirubin, totalOrdered By: Marcel Moya on 05-19-2024 Bilirubin [Mass/Vol] 0.33 mg/dL 0.00-1.30 [facility] CBC W/Diff, Automatedon Absolute Lymph 1.68 X10 3/uL Normal 0.83-4.51 [facility] Comment on above: Performed By: #### L 500.4100, L500.4050, L100.0100, L506.1000, L501.9520 #### [facility] [address] [place], [address] Absolute Neut 7.0 X10 3/uL Normal 2.0-7.7 [facility] Comment on above: Performed By: #### L 500.4100, L500.4050, L100.0100, L506.1000, L501.9520 #### [facility] [address] [place], [address] Basophils/100 WBC (Bld) 0.3 % Normal 0-1 [facility] Comment on above: Performed By: #### L 500.4100, L500.4050, L100.0100, L506.1000, L501.9520 #### [facility] [address] [place], [address] Eosinophils/100 WBC (Bld) 3.3 % Normal 0-5 [facility] Comment on above: Performed By: #### L 500.4100, L500.4050, L100.0100, L506.1000, L501.9520 #### [facility] [address] [place], [address] Erythrocyte distribution width (RBC) [Ratio] 13.7 % Normal 11.6-14.6 [facility] Comment on above: Performed By: #### L 500.4100, L500.4050, L100.0100, L506.1000, L501.9520 #### [facility] [address] [place], [address] Hematocrit (Bld) [Volume fraction] 37.4 % Normal 37-47 [facility] Comment on above: Performed By: #### L 500.4100, L500.4050, L100.0100, L506.1000, L501.9520 #### [facility] [address] [place], [address] Hemoglobin (Bld) [Mass/Vol] 12.6 g/dL Normal 12.0-15.0 [facility] Comment on above: Performed By: #### L 500.4100, L500.4050, L100.0100, L506.1000, L501.9520 #### [facility] [address] [place], [address] IG% 0.200 Normal 0.0-0.9 [facility] Comment on above: Result Comment: IG% - Immature Granulocytes (promyelocytes, myelocytes and metamyelocytes) > 1% indicates that a LEFT SHIFT is Present. Performed By: #### L 500.4100, L500.4050, L100.0100, L506.1000, L501.9520 #### [facility] [address] [place], [address] Lymphocytes/100 WBC (Bld) 17.5 % Low 19-41 [facility] Comment on above: Performed By: #### L 500.4100, L500.4050, L100.0100, L506.1000, L501.9520 #### [facility] [address] [place], [address] MCH (RBC) [Entitic mass] 29.6 pg Normal 27.0-32.0 [facility] Comment on above: Performed By: #### L 500.4100, L500.4050, L100.0100, L506.1000, L501.9520 #### [facility] [address] [place], [address] MCHC (RBC) [Mass/Vol] 33.7 g/dL Normal 32-36 [facility] Comment on above: Performed By: #### L 500.4100, L500.4050, L100.0100, L506.1000, L501.9520 #### [facility] [address] [place], [address] MCV (RBC) [Entitic vol] 87.8 fL Normal 81-99 [facility] Comment on above: Performed By: #### L 500.4100, L500.4050, L100.0100, L506.1000, L501.9520 #### [facility] [address] [place], [address] Monocytes/100 WBC (Bld) 6.1 % Normal 0-10 [facility] Comment on above: Performed By: #### L 500.4100, L500.4050, L100.0100, L506.1000, L501.9520 #### [facility] [address] [place], [address] Neutrophils/100 WBC (Bld) 72.6 % High 47-70 [facility] Comment on above: Performed By: #### L 500.4100, L500.4050, L100.0100, L506.1000, L501.9520 #### [facility] [address] [place], [address] Nucleated RBC (Bld) [#/Vol] 0 10*3/uL Normal 0-5 [facility] Comment on above: Performed By: #### L 500.4100, L500.4050, L100.0100, L506.1000, L501.9520 #### [facility] [address] [place], [address] Platelet mean volume (Bld) [Entitic vol] 9.7 fL Normal 6.2-12.0 [facility] Comment on above: Performed By: #### L 500.4100, L500.4050, L100.0100, L506.1000, L501.9520 #### [facility] [address] [place], [address] Platelets (Bld) [#/Vol] 318 10*3/uL Normal 150-450 [facility] Comment on above: Performed By: #### L 500.4100, L500.4050, L100.0100, L506.1000, L501.9520 #### [facility] [address] [place], [address] RBC (Bld) [#/Vol] 4.26 10*6/uL Normal 4.2-5.4 [facility] Comment on above: Performed By: #### L 500.4100, L500.4050, L100.0100, L506.1000, L501.9520 #### [facility] [address] [place], [address] RDW SD 44.3 fl High 35.1-43.9 [facility] Comment on above: Performed By: #### L 500.4100, L500.4050, L100.0100, L506.1000, L501.9520 #### [facility] [address] [place], [address] WBC (Bld) [#/Vol] 9.6 10*3/uL Normal 4.4-11.0 [facility] Comment on above: Performed By: #### L 500.4100, L500.4050, L100.0100, L506.1000, L501.9520 #### [facility] [address] [place], [address] Carbon dioxide, total [Moles /volume] in Central venous bloodOrdered By: Marcel Moya on 05-19-2024 CO2 [Moles/Vol] 23.0 mmol/L 21.0-32.0 [facility] Chloride assayOrdered By: Jose Moya on 05-19-2024 Chloride [Moles/Vol] 104 mmol/L 98-108 [facility] Comprehensive Metabolic Prof ilon 05-19-2024 Albumin [Mass/Vol] 4.2 g/dL Normal 3.5-5.0 [facility] Comment on above: Performed By: #### L 500.4100, L500.4050, L100.0100, L506.1000, L501.9520 #### [facility] [address] [place], [address] Albumin/Globulin [Mass ratio] 1.5 {ratio} Normal 0.9-2.4 [facility] Comment on above: Performed By: #### L 500.4100, L500.4050, L100.0100, L506.1000, L501.9520 #### [facility] [address] [place], [address] ALK PHOS 147 U/L High 35-104 [facility] Comment on above: Performed By: #### L 500.4100, L500.4050, L100.0100, L506.1000, L501.9520 #### [facility] [address] [place], [address] ALT [Catalytic activity/Vol] 23 U/L Normal <=34 [facility] Comment on above: Performed By: #### L 500.4100, L500.4050, L100.0100, L506.1000, L501.9520 #### [facility] [address] [place], [address] AST [Catalytic activity/Vol] 32 U/L Normal <=31 [facility] Comment on above: Performed By: #### L 500.4100, L500.4050, L100.0100, L506.1000, L501.9520 #### [facility] [address] [place], [address] Bilirubin [Mass/Vol] 0.33 mg/dL Normal 0.00-1.30 [facility] Comment on above: Performed By: #### L 500.4100, L500.4050, L100.0100, L506.1000, L501.9520 #### [facility] [address] [place], [address] BUN/CRE 23.2 RATIO High 10-20 [facility] Comment on above: Performed By: #### L 500.4100, L500.4050, L100.0100, L506.1000, L501.9520 #### [facility] [address] [place], [address] Calcium [Mass/Vol] 9.8 mg/dL Normal 7.6-11.0 [facility] Comment on above: Performed By: #### L 500.4100, L500.4050, L100.0100, L506.1000, L501.9520 #### [facility] [address] [place], [address] Chloride [Moles/Vol] 104 mmol/L Normal 98-108 [facility] Comment on above: Performed By: #### L 500.4100, L500.4050, L100.0100, L506.1000, L501.9520 #### [facility] [address] [place], [address] CO2 [Moles/Vol] 23.0 mmol/L Normal 21.0-32.0 [facility] Comment on above: Performed By: #### L 500.4100, L500.4050, L100.0100, L506.1000, L501.9520 #### [facility] [address] [place], [address] Creatinine [Mass/Vol] 0.93 mg/dL Normal 0.70-1.20 [facility] Comment on above: Performed By: #### L 500.4100, L500.4050, L100.0100, L506.1000, L501.9520 #### [facility] [address] [place], [address] GAP 13 Normal 5-15 [facility] Comment on above: Performed By: #### L 500.4100, L500.4050, L100.0100, L506.1000, L501.9520 #### [facility] [address] [place], [address] GFR/1.73 sq M.predicted among non-blacks MDRD (S/P/Bld) [Vol rate/Area] 72 mL/min/{1.73_m2} Normal >60 [facility] Comment on above: Result Comment: mL/m in/1.73m2 CKD-EPI Creatinine Equation (2020) Performed By: #### L 500.4100, L500.4050, L100.0100, L506.1000, L501.9520 #### [facility] [address] [place], [address] Globulin (S) [Mass/Vol] 2.8 g/dL Normal 2.2-4.2 [facility] Comment on above: Performed By: #### L 500.4100, L500.4050, L100.0100, L506.1000, L501.9520 #### [facility] [address] [place], [address] Glucose [Mass/Vol] 129 mg/dL High 70-99 [facility] Comment on above: Performed By: #### L 500.4100, L500.4050, L100.0100, L506.1000, L501.9520 #### [facility] [address] [place], [address] Potassium [Moles/Vol] 4.2 mmol/L Normal 3.3-5.1 [facility] Comment on above: Performed By: #### L 500.4100, L500.4050, L100.0100, L506.1000, L501.9520 #### [facility] [address] [place], [address] Sodium [Moles/Vol] 140 mmol/L Normal 133-145 [facility] Comment on above: Performed By: #### L 500.4100, L500.4050, L100.0100, L506.1000, L501.9520 #### [facility] [address] [place], [address] T PROT 7.1 g/dL Normal 5.9-8.4 [facility] Comment on above: Performed By: #### L 500.4100, L500.4050, L100.0100, L506.1000, L501.9520 #### [facility] [address] [place], [address] Urea nitrogen [Mass/Vol] 22 mg/dL High 4-19 [facility] Comment on above: Performed By: #### L 500.4100, L500.4050, L100.0100, L506.1000, L501.9520 #### [facility] [address] [place], [address] Eosinophil percentageOrdered By: Marcel Moya on 05-19-2024 Eosinophils/100 WBC (Bld) 3.3 % 0-5 [facility] Erythrocyte distribution wid th (RBC) [Ratio]Ordered By: Marcel Moya on 05-19-2024 Erythrocyte distribution width (RBC) [Entitic vol] 44.3 fL High 35.1-43.9 [facility] Erythrocyte distribution wid th ratioOrdered By: Marcel Moya on 05-19-2024 Erythrocyte distribution width (RBC) [Ratio] 13.7 % 11.6-14.6 [facility] Erythrocyte distribution wid th standard deviationOrdered By: Marcel Moya on 05-19-2024 Erythrocyte distribution width (RBC) [Ratio] 44.3 fl High 35.1-43.9 [facility] GFR/1.73 sq M.predicted alberto g non-blacks MDRD (S/P/Bld) [Vol rate/Area]Ordered By: Marcel Moya on 05-19-2024 Estimated GFR (MDRD) Non-Af Amer 72 >60 [facility] Comment on above: mL/min/1.73m2 CKD-EP I Creatinine Equation (2020) Glomerular filtration rate ( GFR) estimation/1.73 sq m using serum, plasma, or whole bOrdered By: Marcel Moya on 05-19-2024 GFR/1.73 sq M.predicted among non-blacks MDRD (S/P/Bld) [Vol rate/Area] 72 mL/min/{1.73_m2} >60 [facility] Comment on above: mL/min/1.73m2 CKD-EP I Creatinine Equation (2020) Hematocrit Auto (Bld) [Volum e fraction]Ordered By: Marcel Moya on 05-19-2024 Hematocrit (Bld) [Volume fraction] 37.4 % 37-47 [facility] Hemoglobin A1con 05-19-2024 HbA1c (Bld) [Mass fraction] 5.2 % Low <=5.6 [facility] Comment on above: Performed By: #### L 500.4100, L500.4050, L100.0100, L506.1000, L501.9520 #### [facility] [address] [place] [address], [id number] Hemoglobin A1c percentageOrd ered By: Marcel Moya on 05-19-2024 HbA1c (Bld) [Mass fraction] 5.2 % Low >5.7 [facility] Hemoglobin measurementOrdere d By: Marcel Moya on 05-19-2024 Hemoglobin (Bld) [Mass/Vol] 12.6 g/dL 12.0-15.0 [facility] Immature granulocytes/100 WB C Auto (Bld)Ordered By: Marcel Moya on 05-19-2024 Immature granulocytes/100 WBC (Bld) 0.200 % 0.0-0.9 [facility] Comment on above: IG% - Immature Granu locytes (promyelocytes, myelocytes and metamyelocytes) > 1% indicates that a LEFT SHIFT is Present. Laboratory - Chemistry and C hemistry - challengeOrdered By: Marcel Moya on 05-19-2024 AST [Catalytic activity/Vol] 32 U/L <32 [facility] Lymphocytes Auto (Unsp spec) [#/Vol]Ordered By: Marcel Moya on 05-19-2024 Lymphocytes (Bld) [#/Vol] 1.68 10*3/uL 0.83-4.51 [facility] Lymphocytes/100 WBC Auto (Un sp spec)Ordered By: Marcel Moya on 05-19-2024 Lymphocytes/100 WBC (Bld) 17.5 % Low 19-41 [facility] MCV (mean corpuscular volume ) determinationOrdered By: Marcel Moya on 05-19-2024 MCV (RBC) [Entitic vol] 87.8 fL 81-99 [facility] Mean corpuscular hemoglobin (MCH) determinationOrdered By: Marcel Moya 05-19-2024 MCH (RBC) [Entitic mass] 29.6 pg 27.0-32.0 [facility] Mean corpuscular hemoglobin concentration (MCHC) determinationOrdered By: Marcel Moya 05-19-2024 MCHC (RBC) [Mass/Vol] 33.7 g/dL 32-36 [facility] Mean platelet volume determi nationOrdered By: Marcel Moya on 05-19-2024 Platelet mean volume (Bld) [Entitic vol] 9.7 fL 6.2-12.0 [facility] Monocyte percentageOrdered B y: Marcel Moya on 05-19-2024 Monocytes/100 WBC (Bld) 6.1 % 0-10 [facility] Neutrophil percentageOrdered By: Marcel Moya on 05-19-2024 Neutrophils/100 WBC (Bld) 72.6 % High 47-70 [facility] Nucleated red blood cell per centageOrdered By: Marcel Moya on 05-19-2024 Nucleated RBC/100 WBC (Bld) [Ratio] 0 % 0-5 [facility] Platelet countOrdered By: Jose Moya on 05-19-2024 Platelets (Bld) [#/Vol] 318 10*3/uL 150-450 [facility] Potassium (Unsp spec) [Mass/ Vol]Ordered By: Marcel Moya on 05-19-2024 Potassium [Moles/Vol] 4.2 mmol/L 3.3-5.1 [facility] Potassium measurement (mass/ volume)Ordered By: Marcel Moya 05-19-2024 Potassium (Unsp spec) [Mass/Vol] 4.2 mmol/L 3.3-5.1 [facility] RBC Auto (Bld) [#/Vol]Ordere d By: Marcel Moya 05-19-2024 RBC (Bld) [#/Vol] 4.26 10*6/uL 4.2-5.4 [facility] Serum creatinine measurement (mass/volume)Ordered By: Marcel Moya 05-19-2024 Creatinine [Mass/Vol] 0.93 mg/dL 0.70-1.20 [facility] Serum globulin measurementOr dered By: Marcel Moya 05-19-2024 Globulin (S) [Mass/Vol] 2.8 g/dL 2.2-4.2 [facility] Serum glucose measurement (m ass/volume)Ordered By: Marcel Moya 05-19-2024 Glucose [Mass/Vol] 129 mg/dL High 70-99 [facility] Serum or plasma alanine fostre otransferase (ALT) measurementOrdered By: Marcel Moya 05-19-2024 ALT [Catalytic activity/Vol] 23 U/L <35 [facility] Serum or plasma albumin tika urement (mass/volume)Ordered By: Marcel Moya 05-19-2024 Albumin [Mass/Vol] 4.2 g/dL 3.5-5.0 [facility] Serum or plasma albumin/glob ulin mass ratioOrdered By: Marcel Moya 05-19-2024 Albumin/Globulin [Mass ratio] 1.5 {ratio} 0.9-2.4 [facility] Serum or plasma alkaline roberto sphatase measurementOrdered By: Marcel Moya 05-19-2024 ALP [Catalytic activity/Vol] 147 U/L High 35-104 [facility] Serum or plasma calcium tika urement (mass/volume)Ordered By: Marcel Moya 05-19-2024 Calcium [Mass/Vol] 9.8 mg/dL 7.6-11.0 [facility] Serum or plasma urea nitroge n measurement (mass/volume)Ordered By: Marcel Moya on 05-19-2024 Urea nitrogen [Mass/Vol] 22 mg/dL High 4-19 [facility] Sodium levelOrdered By: Marcel Moya on 05-19-2024 Sodium [Moles/Vol] 140 mmol/L 133-145 [facility] Total proteinOrdered By: Marcel Moya on 05-19-2024 Protein [Mass/Vol] 7.1 g/dL 5.9-8.4 [facility] Vitamin D, 25-hydroxyOrdered By: Marcel Moya on 05-19-2024 Vitamin D 25-Hydroxy 26.3 ng/mL Low 30-100 [facility] Comment on above: Vitamin D StatusDefi ciency: <20 ng/mL (50nmol/L)Insufficiency: 20-30 ng/mL (50-75 nmol/L)Sufficiency: 30-100 ng/mL (75-250 nmol/L)Toxicity: >100 ng/mL (>250 nmol/L) Vitamin D,25 Hydroxyon 05-19 Vitamin D 25-OH 26.3 ng/mL Low 30-100 [facility] Comment on above: Result Comment: Mona min D Status Deficiency: <20 ng/mL (50nmol/L) Insufficiency: 20-30 ng/mL (50-75 nmol/L) Sufficiency: 30-100 ng/mL (75-250 nmol/L) Toxicity: >100 ng/mL (>250 nmol/L) Performed By: #### L 500.4100, L500.4050, L100.0100, L506.1000, L501.9520 #### [facility] [address] [place], [address] White blood cell (WBC) count Ordered By: Marcel Moya on 05-19-2024 WBC (Bld) [#/Vol] 9.6 10*3/uL 4.4-11.0 [facility] International normalized rat io (INR) calculationon 05-04-2024 INR Coag (Bld) [Relative time] 3.4 {INR} [facility] Prothrombin Time w/INRon INR Coag (PPP) [Relative time] 3.4 {INR} Normal [facility] Comment on above: Performed By: #### L 500.4100, L500.4050, L100.0100, L506.1000, L501.9520 #### [facility] [address] [place], [address] PT Coag (PPP) [Time] 35.4 s High 11.7-14.9 [facility] Comment on above: Performed By: #### L 500.4100, L500.4050, L100.0100, L506.1000, L501.9520 #### [facility] [address] [place], [place], [id number] Prothrombin timeon PT Coag (PPP) [Time] 35.4 s High 11.7-14.9 [facility] Ova and Parasites 8623on OP ORDERED C BC AND PT ORDERED CBCD, CMP ALL STOOLS OVA AND PARASITES EXAM, ROUTINE These results were obtained using wet preparation(s) and trichrome stained smear. This test does not include testing for Crytosporidium parvum, Cyclospora, or Microsporidia. One negative specimen does not rule out the possibility of a parasitic infection. _ TESTING PERFORMED AT [facility]. ORIGINAL REPORT ON FILE IN LAB CONTAINS ADDITIONAL TEST SITE INFORMATION. _ Ova/Parasite Exam NO OVA, CYSTS, OR PARASITES FOUND. Normal [facility] Comment on above: Performed By: #### L 300.3900, L100.0100, M100.637, M100.0605, M600.5000, L500.4050, M100.7900, M100.6796 ####[facility] [address] [place], [address] Urine Cultureon 04-21-2024 [facility] Mixed Gram Pos Gram Neg Org [place] Count 11,000-25,000 [facility] Mixed contaminants. Submit a new specimen if indicated. Normal [facility] Comment on above: Performed By: #### L 300.3900, L100.0500 #### [facility] [address] [place], [address] Abdomen/Pelvis WITH Contrast on 04-19-2024 Abdomen/Pelvis WITH Contrast [facility] Imaging Services [address] [facility] [place] [address] Abdomen/Pelvis WITH Contrast MR#: [id number] Acct: [id number] Name: JOÃO MUJICA MELONY Rep #: [id number] : 1965 F 58 From: Mejia Mansfield MD PCP: Dr. Marcel Moya MD Status: REG CLI Study: Abdomen/Pelvis WITH Contrast Date of Exam: 08/08 Exam# [id number] Ordering Dr: Marcel Moya MD PROCEDURE: ABDOMEN/PELVIS [...] 5. Additional description as above. Reading Location: [id number] CC: Dr. Marcel Moya MD Pharmacist Helper: Signed Normal [facility] Absolute lymphocyte countOrd ered By: Marcel Moya on 04-19-2024 Lymphocytes Auto (Unsp spec) [#/Vol] 0.72 10*3/uL Low 0.83-4.51 [facility] Absolute neutrophil countOrd ered By: Mracel Moya on 04-19-2024 Neutrophils (Bld) [#/Vol] 4.1 10*3/uL 2.0-7.7 [facility] Anion gap in Serum or Plasma Ordered By: Marcel Moya on 04-19-2024 Anion gap [Moles/Vol] 13 mmol/L 5-15 [facility] Automated lymphocyte count a s percentage of total leukocytesOrdered By: Marcel Griffin on 04-19-2024 Lymphocytes/100 WBC Auto (Unsp spec) 13.0 % Low 19-41 [facility] BUN/creatinine ratioOrdered By: Marcel Moya on 04-19-2024 Urea nitrogen/Creatinine [Mass ratio] 20.8 mg/mg High 10-20 [facility] Basophil percentageOrdered B y: Marcel Moya on 04-19-2024 Basophils/100 WBC (Bld) 0.2 % 0-1 [facility] Bilirubin, totalOrdered By: [facility]-2024 Bilirubin [Mass/Vol] 0.60 mg/dL 0.00-1.30 [facility] C. difficile DNA BRENDAN+probe Q l (Unsp spec)Ordered By: Marcel Griffin on 04-19-2024 Clostridioides difficile (PCR) [facility] Clostridioides difficile (PCR) [facility] CBC W/Diff, Automatedon 03- Absolute Lymph 0.72 X10 3/uL Low 0.83-4.51 [facility] Comment on above: Order Comment: DR.ST LAGOS ORDERED CBC AND PTDR.GRIFFIN ORDERED CBCD, CMP ALL STOOLS Performed By: #### L 300.3900, L100.0100, M100.637, M100.0605, M600.5000, L500.4050, M100.7900, M100.6796 ####[facility] [address] [facility] [place], [id number] Absolute Neut 4.1 X10 3/uL Normal 2.0-7.7 [facility] Comment on above: Order Comment: DR.ST LAGOS ORDERED CBC AND PTDR.GRIFFIN ORDERED CBCD, CMP ALL STOOLS Performed By: #### L 300.3900, L100.0100, M100.637, M100.0605, M600.5000, L500.4050, M100.7900, M100.6796 ####[facility] [address] [place], [address] Basophils/100 WBC (Bld) 0.2 % Normal 0-1 [facility] Comment on above: Order Comment: DR.ST LAGOS ORDERED CBC AND PTDR.GRIFFIN ORDERED CBCD, CMP ALL STOOLS Performed By: #### L 300.3900, L100.0100, M100.637, M100.0605, M600.5000, L500.4050, M100.7900, M100.6796 ####[facility] [address] [place], [address] Eosinophils/100 WBC (Bld) 7.0 % High 0-5 [facility] Comment on above: Order Comment: DR.ST LAGOS ORDERED CBC AND PTDR.GRIFFIN ORDERED CBCD, CMP ALL STOOLS Performed By: #### L 300.3900, L100.0100, M100.637, M100.0605, M600.5000, L500.4050, M100.7900, M100.6796 ####[facility] [address] [place], [address] Erythrocyte distribution width (RBC) [Ratio] 14.3 % Normal 11.6-14.6 [facility] Comment on above: Order Comment: DR.ST LAGOS ORDERED CBC AND PTDR.GRIFFIN ORDERED CBCD, CMP ALL STOOLS Performed By: #### L 300.3900, L100.0100, M100.637, M100.0605, M600.5000, L500.4050, M100.7900, M100.6796 ####[facility] [address] [place], [address] Hematocrit (Bld) [Volume fraction] 40.0 % Normal 37-47 [facility] Comment on above: Order Comment: DR.ST LAGOS ORDERED CBC AND PTDR.GRIFFIN ORDERED CBCD, CMP ALL STOOLS Performed By: #### L 300.3900, L100.0100, M100.637, M100.0605, M600.5000, L500.4050, M100.7900, M100.6796 ####[facility] [address] [place], [address] Hemoglobin (Bld) [Mass/Vol] 13.7 g/dL Normal 12.0-15.0 [facility] Comment on above: Order Comment: DR.ST LAGOS ORDERED CBC AND PTDR.GRIFFIN ORDERED CBCD, CMP ALL STOOLS Performed By: #### L 300.3900, L100.0100, M100.637, M100.0605, M600.5000, L500.4050, M100.7900, M100.6796 ####[facility] [address] [place], [address] IG% 0.200 Normal 0.0-0.9 [facility] Comment on above: Order Comment: DR.ST LAGOS ORDERED CBC AND PTDR.GRIFFIN ORDERED CBCD, CMP ALL STOOLS Result Comment: IG% - Immature Granulocytes (promyelocytes, myelocytes and metamyelocytes) > 1% indicates that a LEFT SHIFT is Present. Performed By: #### L 300.3900, L100.0100, M100.637, M100.0605, M600.5000, L500.4050, M100.7900, M100.6796 ####[facility] [address] [place], [address] Lymphocytes/100 WBC (Bld) 13.0 % Low 19-41 [facility] Comment on above: Order Comment: DR.ST LAGOS ORDERED CBC AND PTDR.GRIFFIN ORDERED CBCD, CMP ALL STOOLS Performed By: #### L 300.3900, L100.0100, M100.637, M100.0605, M600.5000, L500.4050, M100.7900, M100.6796 ####[facility] [address] [place], [address] MCH (RBC) [Entitic mass] 29.8 pg Normal 27.0-32.0 [facility] Comment on above: Order Comment: DR.ST LAGOS ORDERED CBC AND PTDR.GRIFFIN ORDERED CBCD, CMP ALL STOOLS Performed By: #### L 300.3900, L100.0100, M100.637, M100.0605, M600.5000, L500.4050, M100.7900, M100.6796 ####[facility] [address] [place], [address] MCHC (RBC) [Mass/Vol] 34.3 g/dL Normal 32-36 [facility] Comment on above: Order Comment: DR.ST LAGOS ORDERED CBC AND PTDR.GRIFFIN ORDERED CBCD, CMP ALL STOOLS Performed By: #### L 300.3900, L100.0100, M100.637, M100.0605, M600.5000, L500.4050, M100.7900, M100.6796 ####[facility] [address] [place], [place], [phone]) MCV (RBC) [Entitic vol] 87.1 fL Normal 81-99 [facility] Comment on above: Order Comment: DR.ST LAGOS ORDERED CBC AND PTDR.GRIFFIN ORDERED CBCD, CMP ALL STOOLS Performed By: #### L 300.3900, L100.0100, M100.637, M100.0605, M600.5000, L500.4050, M100.7900, M100.6796 ####[facility] [address] [place], [address] Monocytes/100 WBC (Bld) 6.5 % Normal 0-10 [facility] Comment on above: Order Comment: DR.ST LAGOS ORDERED CBC AND PTDR.GRIFFIN ORDERED CBCD, CMP ALL STOOLS Performed By: #### L 300.3900, L100.0100, M100.637, M100.0605, M600.5000, L500.4050, M100.7900, M100.6796 ####[facility] [address] [place], [address] Neutrophils/100 WBC (Bld) 73.1 % High 47-70 [facility] Comment on above: Order Comment: DR.ST LAGOS ORDERED CBC AND PTDRRANJITH ORDERED CBCD, CMP ALL STOOLS Performed By: #### L 300.3900, L100.0100, M100.637, M100.0605, M600.5000, L500.4050, M100.7900, M100.6796 ####[facility] [address] [place], [address] Nucleated RBC (Bld) [#/Vol] 0 10*3/uL Normal 0-5 [facility] Comment on above: Order Comment: DR.ST LAGOS ORDERED CBC AND PTDR.GRIFFIN ORDERED CBCD, CMP ALL STOOLS Performed By: #### L 300.3900, L100.0100, M100.637, M100.0605, M600.5000, L500.4050, M100.7900, M100.6796 ####[facility] [address] [place], [address] Platelet mean volume (Bld) [Entitic vol] 9.4 fL Normal 6.2-12.0 [facility] Comment on above: Order Comment: DR.ST LAGOS ORDERED CBC AND PTDRRANJITH ORDERED CBCD, CMP ALL STOOLS Performed By: #### L 300.3900, L100.0100, M100.637, M100.0605, M600.5000, L500.4050, M100.7900, M100.6796 ####[facility] [address] [place], [address] Platelets (Bld) [#/Vol] 322 10*3/uL Normal 150-450 [facility] Comment on above: Order Comment: DR.ST LAGOS ORDERED CBC AND PTDR.GRIFFIN ORDERED CBCD, CMP ALL STOOLS Performed By: #### L 300.3900, L100.0100, M100.637, M100.0605, M600.5000, L500.4050, M100.7900, M100.6796 ####[facility] [address] [place], [address] RBC (Bld) [#/Vol] 4.59 10*6/uL Normal 4.2-5.4 [facility] Comment on above: Order Comment: DR.ST LAGOS ORDERED CBC AND PTDRRANJITH ORDERED CBCD, CMP ALL STOOLS Performed By: #### L 300.3900, L100.0100, M100.637, M100.0605, M600.5000, L500.4050, M100.7900, M100.6796 ####[facility] [address] [place], [address] RDW SD 45.1 fl High 35.1-43.9 [facility] Comment on above: Order Comment: DR.ST LAGOS ORDERED CBC AND PTDRRANJITH ORDERED CBCD, CMP ALL STOOLS Performed By: #### L 300.3900, L100.0100, M100.637, M100.0605, M600.5000, L500.4050, M100.7900, M100.6796 ####[facility] [address] [place], [address] WBC (Bld) [#/Vol] 5.5 10*3/uL Normal 4.4-11.0 [facility] Comment on above: Order Comment: DR.ST LAGOS ORDERED CBC AND PTDRRANJITH ORDERED CBCD, CMP ALL STOOLS Performed By: #### L 300.3900, L100.0100, M100.637, M100.0605, M600.5000, L500.4050, M100.7900, M100.6796 ####[facility] [address] [place], [address] CDIFF (PCR)on 04-19-2024 CDIFF ORDERED C BC AND PT ORDERED CBCD, CMP ALL STOOLS Pending 027 027 NAP1-B1 Presumptive Negative *for epidemiolologic???use C. Diff PCR Negative- No toxigenic C. Diff Detected Normal [facility] Comment on above: Performed By: #### L 300.3900, L100.0100, M100.637, M100.0605, M600.5000, L500.4050, M100.7900, M100.6796 ####[facility] [address] [place], [address] Carbon dioxide, total [Moles /volume] in Central venous bloodOrdered By: Marcel Moya on 04-19-2024 CO2 [Moles/Vol] 22.7 mmol/L 21.0-32.0 [facility] Chloride assayOrdered By: Jose Moya on 04-19-2024 Chloride [Moles/Vol] 106 mmol/L 98-108 [facility] Clostridium difficile detect ion by polymerase chain reactionOrdered By: Marcel Moya on 04-19-2024 C. difficile DNA BRENDAN+probe Ql (Unsp spec) [facility] Comprehensive Metabolic Prof ilon 04-19-2024 Albumin [Mass/Vol] 4.1 g/dL Normal 3.5-5.0 [facility] Comment on above: Order Comment: DR.ST LAGOS ORDERED CBC AND PTDR.GRIFFIN ORDERED CBCD, CMP ALL STOOLS Performed By: #### L 300.3900, L100.0100, M100.637, M100.0605, M600.5000, L500.4050, M100.7900, M100.6796 ####[facility] [address] [place], [address] Albumin/Globulin [Mass ratio] 1.3 {ratio} Normal 0.9-2.4 [facility] Comment on above: Order Comment: DR.ST LAGOS ORDERED CBC AND PTDR.GRIFFIN ORDERED CBCD, CMP ALL STOOLS Performed By: #### L 300.3900, L100.0100, M100.637, M100.0605, M600.5000, L500.4050, M100.7900, M100.6796 ####[facility] [address] [place], [address] ALK PHOS 143 U/L High 35-104 [facility] Comment on above: Order Comment: DR.ST LAGOS ORDERED CBC AND PTDR.GRIFFIN ORDERED CBCD, CMP ALL STOOLS Performed By: #### L 300.3900, L100.0100, M100.637, M100.0605, M600.5000, L500.4050, M100.7900, M100.6796 ####[facility] [address] [place], [address] ALT [Catalytic activity/Vol] 24 U/L Normal <=34 [facility] Comment on above: Order Comment: DR.ST LAGOS ORDERED CBC AND PTDRRANJITH ORDERED CBCD, CMP ALL STOOLS Performed By: #### L 300.3900, L100.0100, M100.637, M100.0605, M600.5000, L500.4050, M100.7900, M100.6796 ####[facility] [address] [place], [place], [phone] AST [Catalytic activity/Vol] 38 U/L High <=31 [facility] Comment on above: Order Comment: DR.ST LAGOS ORDERED CBC AND PTDR.GRIFFIN ORDERED CBCD, CMP ALL STOOLS Performed By: #### L 300.3900, L100.0100, M100.637, M100.0605, M600.5000, L500.4050, M100.7900, M100.6796 ####[facility] [address] [place], [address] Bilirubin [Mass/Vol] 0.60 mg/dL Normal 0.00-1.30 [facility] Comment on above: Order Comment: DR.ST LAGOS ORDERED CBC AND PTDRRANJITH ORDERED CBCD, CMP ALL STOOLS Performed By: #### L 300.3900, L100.0100, M100.637, M100.0605, M600.5000, L500.4050, M100.7900, M100.6796 ####[facility] [address] [place], [address] BUN/CRE 20.8 RATIO High 10-20 [facility] Comment on above: Order Comment: DR.ST LAGOS ORDERED CBC AND PTDR.GRIFFIN ORDERED CBCD, CMP ALL STOOLS Performed By: #### L 300.3900, L100.0100, M100.637, M100.0605, M600.5000, L500.4050, M100.7900, M100.6796 ####[facility] [address] [place], [address] Calcium [Mass/Vol] 9.4 mg/dL Normal 7.6-11.0 [facility] Comment on above: Order Comment: DR.ST LAGOS ORDERED CBC AND PTDR.GRIFFIN ORDERED CBCD, CMP ALL STOOLS Performed By: #### L 300.3900, L100.0100, M100.637, M100.0605, M600.5000, L500.4050, M100.7900, M100.6796 ####[facility] [address] [place], [address] Chloride [Moles/Vol] 106 mmol/L Normal 98-108 [facility] Comment on above: Order Comment: DR.ST LAGOS ORDERED CBC AND PTDR.GRIFFIN ORDERED CBCD, CMP ALL STOOLS Performed By: #### L 300.3900, L100.0100, M100.637, M100.0605, M600.5000, L500.4050, M100.7900, M100.6796 ####[facility] [address] [place], [address] CO2 [Moles/Vol] 22.7 mmol/L Normal 21.0-32.0 [facility] Comment on above: Order Comment: DR.ST LAGOS ORDERED CBC AND PTDR.GRIFFIN ORDERED CBCD, CMP ALL STOOLS Performed By: #### L 300.3900, L100.0100, M100.637, M100.0605, M600.5000, L500.4050, M100.7900, M100.6796 ####[facility] [address] [place], [place], [id number] Creatinine [Mass/Vol] 0.79 mg/dL Normal 0.70-1.20 [facility] Comment on above: Order Comment: DR.ST LAGOS ORDERED CBC AND PTDR.GRIFFIN ORDERED CBCD, CMP ALL STOOLS Performed By: #### L 300.3900, L100.0100, M100.637, M100.0605, M600.5000, L500.4050, M100.7900, M100.6796 ####[facility] [address] [place], [place], [id number] GAP 13 Normal 5-15 [facility] Comment on above: Order Comment: DR.ST LAGOS ORDERED CBC AND PTDR.GRIFFIN ORDERED CBCD, CMP ALL STOOLS Performed By: #### L 300.3900, L100.0100, M100.637, M100.0605, M600.5000, L500.4050, M100.7900, M100.6796 ####[facility] [address] [facility] [place], [place], [address] GFR/1.73 sq M.predicted among non-blacks MDRD (S/P/Bld) [Vol rate/Area] 87 mL/min/{1.73_m2} Normal >60 [facility] Comment on above: Order Comment: DR.ST LAGOS ORDERED CBC AND PTDR.GRIFFIN ORDERED CBCD, CMP ALL STOOLS Result Comment: mL/m in/1.73m2 CKD-EPI Creatinine Equation (2020) Performed By: #### L 300.3900, L100.0100, M100.637, M100.0605, M600.5000, L500.4050, M100.7900, M100.6796 ####[facility] [address] [place], [address] Globulin (S) [Mass/Vol] 3.2 g/dL Normal 2.2-4.2 [facility] Comment on above: Order Comment: DR.ST LAGOS ORDERED CBC AND PTDR.GRIFFIN ORDERED CBCD, CMP ALL STOOLS Performed By: #### L 300.3900, L100.0100, M100.637, M100.0605, M600.5000, L500.4050, M100.7900, M100.6796 ####[facility] [address] [place], [address] Glucose [Mass/Vol] 99 mg/dL Normal 70-99 [facility] Comment on above: Order Comment: DR.ST LAGOS ORDERED CBC AND PTDR.GRIFFIN ORDERED CBCD, CMP ALL STOOLS Performed By: #### L 300.3900, L100.0100, M100.637, M100.0605, M600.5000, L500.4050, M100.7900, M100.6796 ####[facility] [address] [place], [address] Potassium [Moles/Vol] 3.7 mmol/L Normal 3.3-5.1 [facility] Comment on above: Order Comment: DR.ST LAGOS ORDERED CBC AND PTDR.GRIFFIN ORDERED CBCD, CMP ALL STOOLS Performed By: #### L 300.3900, L100.0100, M100.637, M100.0605, M600.5000, L500.4050, M100.7900, M100.6796 ####[facility] [address] [place], [address] Sodium [Moles/Vol] 141 mmol/L Normal 133-145 [facility] Comment on above: Order Comment: DR.ST LAGOS ORDERED CBC AND PTDR.GRIFFIN ORDERED CBCD, CMP ALL STOOLS Performed By: #### L 300.3900, L100.0100, M100.637, M100.0605, M600.5000, L500.4050, M100.7900, M100.6796 ####[facility] [address] [place], [address] T PROT 7.3 g/dL Normal 5.9-8.4 [facility] Comment on above: Order Comment: DR.ST LAGOS ORDERED CBC AND PTDR.GRIFFIN ORDERED CBCD, CMP ALL STOOLS Performed By: #### L 300.3900, L100.0100, M100.637, M100.0605, M600.5000, L500.4050, M100.7900, M100.6796 ####[facility] [address] [facility] [place], [place], [phone] Urea nitrogen [Mass/Vol] 16 mg/dL Normal 4-19 [facility] Comment on above: Order Comment: DR.ST LAGOS ORDERED CBC AND PTDR.GRIFFIN ORDERED CBCD, CMP ALL STOOLS Performed By: #### L 300.3900, L100.0100, M100.637, M100.0605, M600.5000, L500.4050, M100.7900, M100.6796 ####[facility] [address] [facility] [place], [place], [phone] ENTERIC PATHOGEN PANEL STOOL on 04-19-2024 EP PANEL ORDERED C BC AND PT ORDERED CBCD, CMP ALL STOOLS Results called on 04/19/24-1426 by [employer] to ([facility] LEFT) [phone]. Normal Reference Range = Not Detected Norovirus Gl/Gll detected. Contact precautions should be followed for these patients and limit exposure to others since spread of disease is common. Treatment is often not needed for this pathogen. This is an amplified DNA test which makes it both specific and sensitive. Copy of report sent to [facility]inter [id number] 04/19/24 1422 BLUCAS. CAMPYLOBACTER Not Detected Norovirus A Norovirus Detected A Rotavirus Not Detected Salmonella Not Detected Shiga Toxin Not Detected Shigella sp. Not Detected VIBRIO Not Detected Yersinia Not Detected Norovirus Normal [facility] Comment on above: Performed By: #### L 300.3900, L100.0100, M100.637, M100.0605, M600.5000, L500.4050, M100.7900, M100.6796 ####[facility] [address] [place], [address] Eosinophil percentageOrdered By: Marcel Moya on 04-19-2024 Eosinophils/100 WBC (Bld) 7.0 % High 0-5 [facility] Erythrocyte distribution wid th ratioOrdered By: [facility] Erythrocyte distribution width (RBC) [Ratio] 14.3 % 11.6-14.6 [facility] Erythrocyte distribution wid th standard deviationOrdered By: Marcel Moya 04-19-2024 Erythrocyte distribution width (RBC) [Entitic vol] 45.1 fL High 35.1-43.9 [facility] Erythrocyte distribution width (RBC) [Ratio] 45.1 fl High 35.1-43.9 [facility] GFR/1.73 sq M.predicted alberto g non-blacks MDRD (S/P/Bld) [Vol rate/Area]Ordered By: Marcel Moya 04-19-2024 Estimated GFR (MDRD) Non-Af Amer 87 >60 [facility] Comment on above: mL/min/1.73m2 CKD-EP I Creatinine Equation (2020) Glomerular filtration rate ( GFR) estimation/1.73 sq m using serum, plasma, or whole bOrdered By: Marcel Moya 04-19-2024 GFR/1.73 sq M.predicted among non-blacks MDRD (S/P/Bld) [Vol rate/Area] 87 mL/min/{1.73_m2} >60 [facility] Comment on above: mL/min/1.73m2 CKD-EP I Creatinine Equation (2020) Hematocrit Auto (Bld) [Volum e fraction]Ordered By: Marcel Moya 04-19-2024 Hematocrit (Bld) [Volume fraction] 40.0 % 37-47 [facility] Hemoglobin measurementOrdere d By: Marcel Moya on 04-19-2024 Hemoglobin (Bld) [Mass/Vol] 13.7 g/dL 12.0-15.0 [facility] Immature granulocytes/100 WB C Auto (Bld)Ordered By: Marcel Moya on 04-19-2024 Immature granulocytes/100 WBC (Bld) 0.200 % 0.0-0.9 [facility] Comment on above: IG% - Immature Granu locytes (promyelocytes, myelocytes and metamyelocytes) > 1% indicates that a LEFT SHIFT is Present. International normalized rat io (INR) calculationOrdered By: Marcel Moya on 04-19-2024 INR Coag (Bld) [Relative time] 2.1 {INR} [facility] Laboratory - Chemistry and C hemistry - challengeOrdered By: Marcel Moya on 04-19-2024 AST [Catalytic activity/Vol] 38 U/L High <32 [facility] Lactoferrin IA Ql (Stl)Order ed By: Marcel Moya on 04-19-2024 Stool Lactoferrin [facility] Stool Lactoferrin [facility] Lower GI hemoglobin IA Ql (S tl)Ordered By: Marcel Moya on 04-19-2024 Stool Occult Blood (CORI) Positive Abnormal [facility] Stool Occult Blood (CORI) Positive Abnormal [facility] Lymphocytes Auto (Unsp spec) [#/Vol]Ordered By: Marcel Moya on 04-19-2024 Lymphocytes (Bld) [#/Vol] 0.72 10*3/uL Low 0.83-4.51 [facility] Lymphocytes/100 WBC Auto (Un sp spec)Ordered By: Marcel Moya on 04-19-2024 Lymphocytes/100 WBC (Bld) 13.0 % Low 19-41 [facility] MCV (mean corpuscular volume ) determinationOrdered By: Marcel Moya on 04-19-2024 MCV (RBC) [Entitic vol] 87.1 fL 81-99 [facility] Mean corpuscular hemoglobin (MCH) determinationOrdered By: Marcel Moya on 04-19-2024 MCH (RBC) [Entitic mass] 29.8 pg 27.0-32.0 [facility] Mean corpuscular hemoglobin concentration (MCHC) determinationOrdered By: Marcel Moya on 04-19-2024 MCHC (RBC) [Mass/Vol] 34.3 g/dL 32-36 [facility] Mean platelet volume determi nationOrdered By: Marcel Moya on 04-19-2024 Platelet mean volume (Bld) [Entitic vol] 9.4 fL 6.2-12.0 [facility] Monocyte percentageOrdered B y: Marcel Moya on 04-19-2024 Monocytes/100 WBC (Bld) 6.5 % 0-10 [facility] Neutrophil percentageOrdered By: Marcel Moya on 04-19-2024 Neutrophils/100 WBC (Bld) 73.1 % High 47-70 [facility] Nucleated red blood cell per centageOrdered By: Marcel Moya on 04-19-2024 Nucleated RBC/100 WBC (Bld) [Ratio] 0 % 0-5 [facility] Ova and parasitesOrdered By: Marcel Moya on 04-19-2024 Ova and Parasites [facility] Platelet countOrdered By: Jose Moya on 04-19-2024 Platelets (Bld) [#/Vol] 322 10*3/uL 150-450 [facility] Potassium (Unsp spec) [Mass/ Vol]Ordered By: Marcel Moya on 04-19-2024 Potassium [Moles/Vol] 3.7 mmol/L 3.3-5.1 [facility] Potassium measurement (mass/ volume)Ordered By: Marcel Moya on 04-19-2024 Potassium (Unsp spec) [Mass/Vol] 3.7 mmol/L 3.3-5.1 [facility] Prothrombin Time w/INRon INR Coag (PPP) [Relative time] 2.1 {INR} Normal [facility] Comment on above: Order Comment: DR.ST LAGOS ORDERED CBC AND PTDR.GRIFFIN ORDERED CBCD, CMP ALL STOOLS Performed By: #### L 300.3900, L100.0100, M100.637, M100.0605, M600.5000, L500.4050, M100.7900, M100.6796 ####[facility] [address] [place], [place], [address] PT Coag (PPP) [Time] 24.0 s High 11.7-14.9 [facility] Comment on above: Order Comment: DR.ST LAGOS ORDERED CBC AND PTDR.GRIFFIN ORDERED CBCD, CMP ALL STOOLS Performed By: #### L 300.3900, L100.0100, M100.637, M100.0605, M600.5000, L500.4050, M100.7900, M100.6796 ####[facility] [address] [place], [place], [id number] Prothrombin timeOrdered By: Marcel Moya on 04-19-2024 PT Coag (PPP) [Time] 24.0 s High 11.7-14.9 [facility] RBC Auto (Bld) [#/Vol]Ordere d By: Marcel Moya on 04-19-2024 RBC (Bld) [#/Vol] 4.59 10*6/uL 4.2-5.4 [facility] Serum creatinine measurement (mass/volume)Ordered By: Marcel Moya on 04-19-2024 Creatinine [Mass/Vol] 0.79 mg/dL 0.70-1.20 [facility] Serum globulin measurementOr dered By: Marcel Moya on 04-19-2024 Globulin (S) [Mass/Vol] 3.2 g/dL 2.2-4.2 [facility] Serum glucose measurement (m ass/volume)Ordered By: Marcel Moya on 04-19-2024 Glucose [Mass/Vol] 99 mg/dL 70-99 [facility] Serum or plasma alanine foster otransferase (ALT) measurementOrdered By: Marcel Moya on 04-19-2024 ALT [Catalytic activity/Vol] 24 U/L <35 [facility] Serum or plasma albumin tika urement (mass/volume)Ordered By: Marcel Moya on 04-19-2024 Albumin [Mass/Vol] 4.1 g/dL 3.5-5.0 [facility] Serum or plasma albumin/glob ulin mass ratioOrdered By: Marcel Moya on 04-19-2024 Albumin/Globulin [Mass ratio] 1.3 {ratio} 0.9-2.4 [facility] Serum or plasma alkaline roberto sphatase measurementOrdered By: Marcel Moya on 04-19-2024 ALP [Catalytic activity/Vol] 143 U/L High 35-104 [facility] Serum or plasma calcium tika urement (mass/volume)Ordered By: Marcel Moya on 04-19-2024 Calcium [Mass/Vol] 9.4 mg/dL 7.6-11.0 [facility] Serum or plasma urea nitroge n measurement (mass/volume)Ordered By: Marcel Moya on 04-19-2024 Urea nitrogen [Mass/Vol] 16 mg/dL 4-19 [facility] Sodium levelOrdered By: Marcel Moya on 04-19-2024 Sodium [Moles/Vol] 141 mmol/L 133-145 [facility] Stool Lactoferrin/WBCon WBCST ORDERED C BC AND PT ORDERED CBCD, CMP ALL STOOLS Normal Reference Range = Negative Fecal WBC Lactoferrin A Positive: Fecal WBC Lactoferrin present A Normal [facility] Comment on above: Performed By: #### L 300.3900, L100.0100, M100.637, M100.0605, M600.5000, L500.4050, M100.7900, M100.6796 ####[facility] [address] [place], [place], [id number] Stool Occult Blood iFOBon STOB ORDERED C BC AND PT ORDERED CBCD, CMP ALL STOOLS Normal Reference Range = Negative Immunochemical Fecal Occult Blood (iFOBT) method. Hemoccult Stl Ql IA Limitation: Menstrual bleeding, constipation bleeding, bleeding hemorrhoids, and urinary bleeding conditions may interfere with test. Occult Blood A Positive A OCCULT BLOOD POSITIVE Normal [facility] Comment on above: Performed By: #### L 300.3900, L100.0100, M100.637, M100.0605, M600.5000, L500.4050, M100.7900, M100.6796 ####[facility] [address] [place], [address] Stool enteric pathogen panel by probe and target amplification methodOrdered By: Marcel Moya on 04-19-2024 Enteric Bacteriology Norovirus Abnormal [facility] Enteric Bacteriology Norovirus Abnormal [facility] Stool gastrointestinal hemog lobin detection by immunologic methodOrdered By: Marcel Moya on 04-19-2024 Lower GI hemoglobin IA Ql (Stl) Positive Abnormal [facility] Stool lactoferrin detection by immunoassayOrdered By: Marcel Moya on 04-19-2024 Lactoferrin IA Ql (Stl) [facility] Total proteinOrdered By: Marcel Moya on 04-19-2024 Protein [Mass/Vol] 7.3 g/dL 5.9-8.4 [facility] Urine cultureOrdered By: Marcel Moya on 04-19-2024 Bacteria identified Cx Nom (U) Mixed Gram Pos & Gram Neg Org Abnormal [facility] White blood cell (WBC) count Ordered By: Marcel Moya on 04-19-2024 WBC (Bld) [#/Vol] 5.5 10*3/uL 4.4-11.0 [facility] ABD Limited w/ Elastographyo n 04-17-2024 ABD Limited w/ Elastography [facility] [address] [place], [place] [address] ABD Limited w/ Elastography MR#: [id number] Acct: [id number] Name: JOÃO MUJICA MELONY Rep #: [id number] : 1965 F 58 From: Ludwin busch MD PCP: Dr. Marcel Moya MD Status: REG CL Study: ABD Limited w/ Elastography Date of Exam: 06/08 Exam# [id number] Ordering Dr: Marcel Moya MD PROCEDURE: ABD LIMITED W/ ELASTOGRAPHY REASON FOR EXAM: Fatty infiltration of the liver. COMPARISON: None. TECHNIQUE: Right upper quadrant abdominal ultrasound. [facility] shear wave elastography for non- invasive assessment of liver tissue stiffness. [facility] EPIQ Elite. FINDINGS: LIVER: Size: Enlarged (hepatomegaly) [...] measurement may be in question. Reading Location: [id number] CC: Dr. Marcel Moya MD Pharmacist Helper: Signed Normal [facility] Bilirubin directOrdered By: Karrie Kapadia on 04-11-2024 Bilirubin.direct [Mass/Vol] 0.12 mg/dL 0.00-0.30 [facility] Bilirubin, totalOrdered By: Karrie Kapadia on 04-11-2024 Bilirubin [Mass/Vol] 0.27 mg/dL 0.00-1.30 [facility] CBC-Complete Blood Cnt No Di ffon 04-11-2024 Erythrocyte distribution width (RBC) [Ratio] 14.6 % Normal 11.6-14.6 [facility] Comment on above: Performed By: #### L 300.3900, L100.0500 #### [facility] [address] [place], [address] Hematocrit (Bld) [Volume fraction] 36.8 % Low 37-47 [facility] Comment on above: Performed By: #### L 300.3900, L100.0500 #### [facility] [address] [place], [address] Hemoglobin (Bld) [Mass/Vol] 12.5 g/dL Normal 12.0-15.0 [facility] Comment on above: Performed By: #### L 300.3900, L100.0500 #### [facility] [address] [place], [address] MCH (RBC) [Entitic mass] 29.8 pg Normal 27.0-32.0 [facility] Comment on above: Performed By: #### L 300.3900, L100.0500 #### [facility] [address] [place], [address] MCHC (RBC) [Mass/Vol] 34.0 g/dL Normal 32-36 [facility] Comment on above: Performed By: #### L 300.3900, L100.0500 #### [facility] [address] [place], [address] MCV (RBC) [Entitic vol] 87.6 fL Normal 81-99 [facility] Comment on above: Performed By: #### L 300.3900, L100.0500 #### [facility] [address] [place], [address] Platelet mean volume (Bld) [Entitic vol] 9.4 fL Normal 6.2-12.0 [facility] Comment on above: Performed By: #### L 300.3900, L100.0500 #### [facility] [address] [place], [address] Platelets (Bld) [#/Vol] 317 10*3/uL Normal 150-450 [facility] Comment on above: Performed By: #### L 300.3900, L100.0500 #### [facility] [address] [place], [address] RBC (Bld) [#/Vol] 4.20 10*6/uL Normal 4.2-5.4 [facility] Comment on above: Performed By: #### L 300.3900, L100.0500 #### [facility] [address] [place], [address] RDW SD 46.5 fl High 35.1-43.9 [facility] Comment on above: Performed By: #### L 300.3900, L100.0500 #### [facility] [address] [place], [address] WBC (Bld) [#/Vol] 10.9 10*3/uL Normal 4.4-11.0 [facility] Comment on above: Performed By: #### L 300.3900, L100.0500 #### [facility] [address] [place], [address] Creatinine [Moles/Vol]Ordere d By: Karrie Kapadia on 04-11-2024 Creatinine [Mass/Vol] 0.7 mg/dL 0.6-1.0 [facility] Erythrocyte distribution wid th ratioOrdered By: Karriebatsheva Kapadia on 04-11-2024 Erythrocyte distribution width (RBC) [Ratio] 14.6 % 11.6-14.6 [facility] Erythrocyte distribution wid th standard deviationOrdered By: Karriebatsheva Kapadia on 04-11-2024 Erythrocyte distribution width (RBC) [Entitic vol] 46.5 fL High 35.1-43.9 [facility] Erythrocyte distribution width (RBC) [Ratio] 46.5 fl High 35.1-43.9 [facility] GFR/1.73 sq M.predicted alberto g non-blacks MDRD (S/P/Bld) [Vol rate/Area]Ordered By: Karrie Kapadia on 04-11-2024 Estimated GFR (MDRD) Non-Af Amer 102 >60 [facility] Comment on above: mL/min/1.73m2 CKD-EP I Creatinine Equation (2020) Glomerular filtration rate ( GFR) estimation/1.73 sq m using serum, plasma, or whole bOrdered By: Karrie Kapadia on 04-11-2024 GFR/1.73 sq M.predicted among non-blacks MDRD (S/P/Bld) [Vol rate/Area] 102 mL/min/{1.73_m2} >60 [facility] Comment on above: mL/min/1.73m2 CKD-EP I Creatinine Equation (2020) Hematocrit Auto (Bld) [Volum e fraction]Ordered By: Karrie Kapadia on 04-11-2024 Hematocrit (Bld) [Volume fraction] 36.8 % Low 37-47 [facility] Hemoglobin measurementOrdere d By: Karrie Kapadia on 04-11-2024 Hemoglobin (Bld) [Mass/Vol] 12.5 g/dL 12.0-15.0 [facility] Influenza virus A and B and SARS-CoV-2 (COVID-19) and Respiratory syncytial virus RNAOrdered By: Jasen Parra on 04-11-2024 SARS-CoV-2 (COVID-19) RNA BRENDAN+probe Ql (Unsp spec) Influenzae A Abnormal [facility] SARS-CoV-2 (COVID-19) RNA BRENDAN+probe Ql (Unsp spec) Influenzae A Abnormal [facility] Laboratory - Chemistry and C hemistry - challengeOrdered By: Karrie Kapadia on 04-11-2024 AST [Catalytic activity/Vol] 36 U/L High <32 [facility] Liver Profileon 04-11-2024 Albumin [Mass/Vol] 3.7 g/dL Normal 3.5-5.0 [facility] Comment on above: Performed By: #### L 300.3900, L100.0500 #### [facility] [address] [place], [address] ALK PHOS 98 U/L Normal 35-104 [facility] Comment on above: Performed By: #### L 300.3900, L100.0500 #### [facility] [address] [place], [address] ALT [Catalytic activity/Vol] 31 U/L Normal <=34 [facility] Comment on above: Performed By: #### L 300.3900, L100.0500 #### [facility] [address] [place], [address] AST [Catalytic activity/Vol] 36 U/L High <=31 [facility] Comment on above: Performed By: #### L 300.3900, L100.0500 #### [facility] [address] [place], [address] Bilirubin [Mass/Vol] 0.27 mg/dL Normal 0.00-1.30 [facility] Comment on above: Performed By: #### L 300.3900, L100.0500 #### [facility] [address] [place], [address] Bilirubin.direct [Mass/Vol] 0.12 mg/dL Normal 0.00-0.30 [facility] Comment on above: Performed By: #### L 300.3900, L100.0500 #### [facility] [address] [place], [address] Globulin (S) [Mass/Vol] 2.4 g/dL Normal 2.2-4.2 [facility] Comment on above: Performed By: #### L 300.3900, L100.0500 #### [facility] [address] [place], [address] T PROT 6.1 g/dL Normal 5.9-8.4 [facility] Comment on above: Performed By: #### L 300.3900, L100.0500 #### [facility] [address] [place], [address] M100.678on 04-11-2024 SARS-CoV-2 (COVID-19) Ab IA Ql Normal Reference Range = Negative FLUABV+SARS-CoV-2+RSV Pnl Resp BRENDAN+probe GeneXpert Instrument, PCR method Copy of report sent to Infection Control Printer [id number] 04/11/24 1711 MONICA. RESULTS CALLED TO [facility] 04/11/24 Rasheed Garcia. REPORT READ BACK BY [facility]. SARS-CoV-2 (COVID 19) Negative INFLUENZA A A Positive A INFLUENZA B Negative RSV PCR Negative INFLUENZAE A Normal [facility] Comment on above: Performed By: #### L 300.3900, L100.0500 #### [facility] [address] [place], [place], [id number] MCV (mean corpuscular volume ) determinationOrdered By: Karrie Kapadia on 04-11-2024 MCV (RBC) [Entitic vol] 87.6 fL 81-99 [facility] Mean corpuscular hemoglobin (MCH) determinationOrdered By: [facility] Shonna on 04-11-2024 MCH (RBC) [Entitic mass] 29.8 pg 27.0-32.0 [facility] Mean corpuscular hemoglobin concentration (MCHC) determinationOrdered By: Karrie Kapadia on 04-11-2024 MCHC (RBC) [Mass/Vol] 34.0 g/dL 32-36 [facility] Mean platelet volume determi nationOrdered By: Karriebatsheva Kapadia on 04-11-2024 Platelet mean volume (Bld) [Entitic vol] 9.4 fL 6.2-12.0 [facility] Platelet countOrdered By: Ev i Shonna on 04-11-2024 Platelets (Bld) [#/Vol] 317 10*3/uL 150-450 [facility] RBC Auto (Bld) [#/Vol]Ordere d By: Karriebatsheva Kapadia on 04-11-2024 RBC (Bld) [#/Vol] 4.20 10*6/uL 4.2-5.4 [facility] Serum Creatinine AND GFRon 0 04-11-2024 Creatinine [Mass/Vol] 0.7 mg/dL Normal 0.6-1.0 [facility] Comment on above: Performed By: #### L 300.3900, L100.0500 #### [facility] [address] [place], [place], [address] GFR/1.73 sq M.predicted among non-blacks MDRD (S/P/Bld) [Vol rate/Area] 102 mL/min/{1.73_m2} Normal >60 [facility] Comment on above: Result Comment: mL/m in/1.73m2 CKD-EPI Creatinine Equation (2020) Performed By: #### L 300.3900, L100.0500 #### [facility] [address] [place], [address] Serum globulin measurementOr dered By: Karrie Kapadia on 04-11-2024 Globulin (S) [Mass/Vol] 2.4 g/dL 2.2-4.2 [facility] Serum or plasma alanine foster otransferase (ALT) measurementOrdered By: Karrie Kapadia on 04-11-2024 ALT [Catalytic activity/Vol] 31 U/L <35 [facility] Serum or plasma albumin tika urement (mass/volume)Ordered By: Karriebatsheva Kapadia on 04-11-2024 Albumin [Mass/Vol] 3.7 g/dL 3.5-5.0 [facility] Serum or plasma alkaline roberto sphatase measurementOrdered By: Karriebatsheva Kapadia on 04-11-2024 ALP [Catalytic activity/Vol] 98 U/L 35-104 [facility] Serum or plasma creatinine m easurement (moles/volume)Ordered By: Karrie Kapadia on 04-11-2024 Creatinine [Moles/Vol] 0.7 mg/dL 0.6-1.0 [facility] Total proteinOrdered By: Karriebatsheva Kapadia on 04-11-2024 Protein [Mass/Vol] 6.1 g/dL 5.9-8.4 [facility] White blood cell (WBC) count Ordered By: Karrie Kapadia on 04-11-2024 WBC (Bld) [#/Vol] 10.9 10*3/uL 4.4-11.0 [facility] International normalized rat io (INR) calculationon 04-10-2024 INR Coag (Bld) [Relative time] 1.9 {INR} [facility] Prothrombin Time w/INRon INR Coag (PPP) [Relative time] 1.9 {INR} Normal [facility] Comment on above: Performed By: #### L 300.3900, L100.0500 #### [facility] [address] [place], [address] PT Coag (PPP) [Time] 21.7 s High 11.7-14.9 [facility] Comment on above: Performed By: #### L 300.3900, L100.0500 #### [facility] [address] [place], [address] Prothrombin timeon PT Coag (PPP) [Time] 21.7 s High 11.7-14.9 [facility] Abdomen/Pelvis WITH Contrast on 04-05-2024 Abdomen/Pelvis WITH Contrast [facility] Services [address] [place] [address] Abdomen/Pelvis WITH Contrast MR#: [id number] Acct: [id number] Name: JOÃO MUJICA Rep #: [id number] : 1965 F 58 From: Ludwin busch MD PCP: Dr. Marcel Moya MD Status: REG CLI Study: Abdomen/Pelvis WITH Contrast Date of Exam: Exam# [id number] Ordering Dr: Marcel Moya MD PROCEDURE: ABDOMEN/PELVIS [...] use of iterative reconstruction technique). Reading Location: [place] [address] CC: Dr. Marcel Moya MD Pharmacist Helper: Signed Normal [facility] CBC-Complete Blood Cnt No Di ffon 04-05-2024 Erythrocyte distribution width (RBC) [Ratio] 14.0 % Normal 11.6-14.6 [facility] Comment on above: Performed By: #### L 300.3900, L100.0500 #### [facility] [address] [place], [address] Hematocrit (Bld) [Volume fraction] 39.1 % Normal 37-47 [facility] Comment on above: Performed By: #### L 300.3900, L100.0500 #### [facility] [address] [place], [address] Hemoglobin (Bld) [Mass/Vol] 13.6 g/dL Normal 12.0-15.0 [facility] Comment on above: Performed By: #### L 300.3900, L100.0500 #### [facility] [address] [place], [address] MCH (RBC) [Entitic mass] 28.8 pg Normal 27.0-32.0 [facility] Comment on above: Performed By: #### L 300.3900, L100.0500 #### [facility] [address] [place], [address] MCHC (RBC) [Mass/Vol] 34.8 g/dL Normal 32-36 [facility] Comment on above: Performed By: #### L 300.3900, L100.0500 #### [facility] [address] [place], [address] MCV (RBC) [Entitic vol] 82.8 fL Normal 81-99 [facility] Comment on above: Performed By: #### L 300.3900, L100.0500 #### [facility] [address] [place], [address] Platelet mean volume (Bld) [Entitic vol] 9.6 fL Normal 6.2-12.0 [facility] Comment on above: Performed By: #### L 300.3900, L100.0500 #### [facility] [address] [place], [address] Platelets (Bld) [#/Vol] 409 10*3/uL Normal 150-450 [facility] Comment on above: Performed By: #### L 300.3900, L100.0500 #### [facility] [address] [place], [address] RBC (Bld) [#/Vol] 4.72 10*6/uL Normal 4.2-5.4 [facility] Comment on above: Performed By: #### L 300.3900, L100.0500 #### [facility] [address] [place], [address] RDW SD 42.2 fl Normal 35.1-43.9 [facility] Comment on above: Performed By: #### L 300.3900, L100.0500 #### [facility] [address] [place], [address] WBC (Bld) [#/Vol] 12.7 10*3/uL High 4.4-11.0 [facility] Comment on above: Performed By: #### L 300.3900, L100.0500 #### [facility] [place], [address] Erythrocyte distribution wid th ratioon 04-05-2024 Erythrocyte distribution width (RBC) [Ratio] 14.0 % 11.6-14.6 [facility] Erythrocyte distribution wid th standard deviationon 04-05-2024 Erythrocyte distribution width (RBC) [Entitic vol] 42.2 fL 35.1-43.9 [facility] Erythrocyte distribution width (RBC) [Ratio] 42.2 fl 35.1-43.9 [facility] Hematocrit Auto (Bld) [Volum e fraction]on 04-05-2024 Hematocrit (Bld) [Volume fraction] 39.1 % 37-47 [facility] Hemoglobin measurementon Hemoglobin (Bld) [Mass/Vol] 13.6 g/dL 12.0-15.0 [facility] International normalized rat io (INR) calculationon 04-05-2024 INR Coag (Bld) [Relative time] 3.3 {INR} [facility] MCV (mean corpuscular volume ) determinationon 04-05-2024 MCV (RBC) [Entitic vol] 82.8 fL 81-99 [facility] Mean corpuscular hemoglobin (MCH) determinationon 04-05-2024 MCH (RBC) [Entitic mass] 28.8 pg 27.0-32.0 [facility] Mean corpuscular hemoglobin concentration (MCHC) determinationon 04-05-2024 MCHC (RBC) [Mass/Vol] 34.8 g/dL 32-36 [facility] Mean platelet volume determi nationon 04-05-2024 Platelet mean volume (Bld) [Entitic vol] 9.6 fL 6.2-12.0 [facility] Ova and Parasites 8623on OP OVA AND PARASITES EX AM, ROUTINE These results were obtained using wet preparation(s) and trichrome stained smear. This test does not include testing for Crytosporidium parvum, Cyclospora, or Microsporidia. One negative specimen does not rule out the possibility of a parasitic infection. _ TESTING PERFORMED AT [facility]. ORIGINAL REPORT ON FILE IN LAB CONTAINS ADDITIONAL TEST SITE INFORMATION. _ Ova/Parasite Exam NO OVA, CYSTS, OR PARASITES FOUND. Normal [facility] Comment on above: Performed By: #### L 300.3900, L100.0500 #### [facility] [address] [place], [address] Platelet counton 04-05-2024 Platelets (Bld) [#/Vol] 409 10*3/uL 150-450 [facility] Prothrombin Time w/INRon INR Coag (PPP) [Relative time] 3.3 {INR} Normal [facility] Comment on above: Performed By: #### L 300.3900, L100.0500 #### [facility] [address] [facility] [place], [address] PT Coag (PPP) [Time] 34.2 s High 11.7-14.9 [facility] Comment on above: Performed By: #### L 300.3900, L100.0500 #### [facility] [address], [address] Prothrombin timeon 5 PT Coag (PPP) [Time] 34.2 s High 11.7-14.9 [facility] RBC Auto (Bld) [#/Vol]on RBC (Bld) [#/Vol] 4.72 10*6/uL 4.2-5.4 [facility] White blood cell (WBC) count on 04-05-2024 WBC (Bld) [#/Vol] 12.7 10*3/uL High 4.4-11.0 [facility] Absolute lymphocyte counton 04-02-2024 Lymphocytes Auto (Unsp spec) [#/Vol] 1.81 10*3/uL 0.83-4.51 [facility] Absolute neutrophil counton 04-02-2024 Neutrophils (Bld) [#/Vol] 15.1 10*3/uL High 2.0-7.7 [facility] Albumin to globulin ratioon 04-02-2024 Albumin/Globulin [Mass ratio] 0.7 {ratio} Low 0.9-2.4 [facility] Automated lymphocyte count a s percentage of total leukocyteson 04-02-2024 Lymphocytes/100 WBC Auto (Unsp spec) 9.2 % Low 19-41 [facility] Basophil percentageon 2024 Basophils/100 WBC (Bld) 0.5 % 0-1 [facility] Bilirubin, totalon Bilirubin [Mass/Vol] 0.40 mg/dL 0.20-1.00 [facility] Comment on above: For patients on eltr ombopag therapy, use of Dimension [place] TBIL is not recommended. Blood urea nitrogen (BUN)/cr eatinine ratioon 04-02-2024 Urea nitrogen/Creatinine [Mass ratio] 20.2 mg/mg High 10-20 [facility] C. difficile DNA BRENDAN+probe Q l (Unsp spec)Ordered By: Marcel Moya on 04-02-2024 Clostridioides difficile (PCR) [facility] Clostridioides difficile (PCR) [facility] C. difficile Ql (Stl)Ordered By: Marcel Moya on 04-02-2024 C. difficile GDH Antigen & Toxins Toxigenic C. difficile Abnormal [facility] C. difficile GDH Antigen & Toxins Toxigenic C. difficile Abnormal [facility] CBC W/Diff, Automatedon 03-17 Absolute Lymph 1.81 X10 3/uL Normal 0.83-4.51 [facility] Comment on above: Performed By: #### L 500.4100, L500.4050, L100.0100, L506.1000, L501.9520 #### [facility] [address] [place], [address] Absolute Neut 15.1 X10 3/uL High 2.0-7.7 [facility] Comment on above: Performed By: #### L 500.4100, L500.4050, L100.0100, L506.1000, L501.9520 #### [facility] [address] [place], [address] Basophils/100 WBC (Bld) 0.5 % Normal 0-1 [facility] Comment on above: Performed By: #### L 500.4100, L500.4050, L100.0100, L506.1000, L501.9520 #### [facility] [address] [place], [address] Eosinophils/100 WBC (Bld) 5.8 % High 0-5 [facility] Comment on above: Performed By: #### L 500.4100, L500.4050, L100.0100, L506.1000, L501.9520 #### [facility] [address] [place], [address] Erythrocyte distribution width (RBC) [Ratio] 13.9 % Normal 11.6-14.6 [facility] Comment on above: Performed By: #### L 500.4100, L500.4050, L100.0100, L506.1000, L501.9520 #### [facility] [address] [place], [address] Hematocrit (Bld) [Volume fraction] 40.0 % Normal 37-47 [facility] Comment on above: Performed By: #### L 500.4100, L500.4050, L100.0100, L506.1000, L501.9520 #### [facility] [address] [place], [address] Hemoglobin (Bld) [Mass/Vol] 13.9 g/dL Normal 12.0-15.0 [facility] Comment on above: Performed By: #### L 500.4100, L500.4050, L100.0100, L506.1000, L501.9520 #### [facility] [address] [place], [address] IG% 0.800 Normal 0.0-0.9 [facility] Comment on above: Result Comment: IG% - Immature Granulocytes (promyelocytes, myelocytes and metamyelocytes) > 1% indicates that a LEFT SHIFT is Present. Performed By: #### L 500.4100, L500.4050, L100.0100, L506.1000, L501.9520 #### [facility] [address] [place], [address] Lymphocytes/100 WBC (Bld) 9.2 % Low 19-41 [facility] Comment on above: Performed By: #### L 500.4100, L500.4050, L100.0100, L506.1000, L501.9520 #### [facility] [address] [place], [address] MCH (RBC) [Entitic mass] 29.0 pg Normal 27.0-32.0 [facility] Comment on above: Performed By: #### L 500.4100, L500.4050, L100.0100, L506.1000, L501.9520 #### [facility] [address] [place], [address] MCHC (RBC) [Mass/Vol] 34.8 g/dL Normal 32-36 [facility] Comment on above: Performed By: #### L 500.4100, L500.4050, L100.0100, L506.1000, L501.9520 #### [facility] [address] [place], [address] MCV (RBC) [Entitic vol] 83.3 fL Normal 81-99 [facility] Comment on above: Performed By: #### L 500.4100, L500.4050, L100.0100, L506.1000, L501.9520 #### [facility] [address] [place], [address] Monocytes/100 WBC (Bld) 6.8 % Normal 0-10 [facility] Comment on above: Performed By: #### L 500.4100, L500.4050, L100.0100, L506.1000, L501.9520 #### [facility] [address] [place], [address] Neutrophils/100 WBC (Bld) 76.9 % High 47-70 [facility] Comment on above: Performed By: #### L 500.4100, L500.4050, L100.0100, L506.1000, L501.9520 #### [facility] [address] [place], [address] Nucleated RBC (Bld) [#/Vol] 0 10*3/uL Normal 0-5 [facility] Comment on above: Performed By: #### L 500.4100, L500.4050, L100.0100, L506.1000, L501.9520 #### [facility] [address] [place], [address] Platelet mean volume (Bld) [Entitic vol] 9.5 fL Normal 6.2-12.0 [facility] Comment on above: Performed By: #### L 500.4100, L500.4050, L100.0100, L506.1000, L501.9520 #### [facility] [address] [place], [address] Platelets (Bld) [#/Vol] 355 10*3/uL Normal 150-450 [facility] Comment on above: Performed By: #### L 500.4100, L500.4050, L100.0100, L506.1000, L501.9520 #### [facility] [address] [place], [address] RBC (Bld) [#/Vol] 4.80 10*6/uL Normal 4.2-5.4 [facility] Comment on above: Performed By: #### L 500.4100, L500.4050, L100.0100, L506.1000, L501.9520 #### [facility] [address] [place], [address] RDW SD 42.1 fl Normal 35.1-43.9 [facility] Comment on above: Performed By: #### L 500.4100, L500.4050, L100.0100, L506.1000, L501.9520 #### [facility] [address] [place], [address] WBC (Bld) [#/Vol] 19.7 10*3/uL High 4.4-11.0 [facility] Comment on above: Performed By: #### L 500.4100, L500.4050, L100.0100, L506.1000, L501.9520 #### [facility] [address] [place], [address] CDIFF (PCR)on 04-02-2024 CDIFF IFOB A positive C. difficile molecular test does not differentiate between an active C. difficile infection and C. difficile colonization. Use clinical judgement and paired toxin/antigen testing to identify true infection and need for treatment. C diff DNA Spec Ql BRENDAN+probe Reference Range: Negative CepMYOMOid GeneXpert: polymerase chain reaction (PCR) 027 027 NAP1-B1 Presumptive Negative *for epidemiolologic???use C. Diff PCR A Positive-Toxigenic C. Difficile Detected A Normal [facility] Comment on above: Performed By: #### L 300.3900, L100.0500 #### [facility] [address] [place], [address] Carbon dioxide measurementon 04-02-2024 CO2 [Moles/Vol] 26.0 mmol/L 21.0-32.0 [facility] Chloride measurementon 04-02 Chloride [Moles/Vol] 98 mmol/L 98-107 [facility] Clostridium Diff Toxin/Agon 04-02-2024 CDIFF (EIA) IFOB [...] Difficile (EIA) A Toxigenic C. difficile Normal [facility] Comment on above: Performed By: #### L 300.3900, L100.0500 #### [facility] [address] [place], [place], [address] Clostridium difficile detect ion by polymerase chain reactionOrdered By: Marcel Moya on 04-02-2024 C. difficile DNA BRENDAN+probe Ql (Unsp spec) [facility] Comprehensive Metabolic Prof ilon 04-02-2024 Albumin [Mass/Vol] 2.7 g/dL Low 3.2-5.0 [facility] Comment on above: Performed By: #### L 500.4100, L500.4050, L100.0100, L506.1000, L501.9520 #### [facility] [address] [place], [place], [address] Albumin/Globulin [Mass ratio] 0.7 {ratio} Low 0.9-2.4 [facility] Comment on above: Performed By: #### L 500.4100, L500.4050, L100.0100, L506.1000, L501.9520 #### [facility] [address] [place], [address] ALK P 150 U/L High 45-117 [facility] Comment on above: Performed By: #### L 500.4100, L500.4050, L100.0100, L506.1000, L501.9520 #### [facility] [address] [place], [address] ALT [Catalytic activity/Vol] 36 U/L Normal 13-56 [facility] Comment on above: Performed By: #### L 500.4100, L500.4050, L100.0100, L506.1000, L501.9520 #### [facility] [address] [place], [address] AST [Catalytic activity/Vol] 28 U/L Normal 15-37 [facility] Comment on above: Performed By: #### L 500.4100, L500.4050, L100.0100, L506.1000, L501.9520 #### [facility] [address] [place], [address] Bilirubin [Mass/Vol] 0.40 mg/dL Normal 0.20-1.00 [facility] Comment on above: Result Comment: For patients on eltrombopag therapy, use of Dimension [place] TBIL is not recommended. Performed By: #### L 500.4100, L500.4050, L100.0100, L506.1000, L501.9520 #### [facility] [address] [place], [address] BUN/CRE 20.2 RATIO High 10-20 [facility] Comment on above: Performed By: #### L 500.4100, L500.4050, L100.0100, L506.1000, L501.9520 #### [facility] [address] [place], [address] CA,Total 9.4 mg/dL Normal 8.5-10.1 [facility] Comment on above: Performed By: #### L 500.4100, L500.4050, L100.0100, L506.1000, L501.9520 #### [facility] [address] [place], [address] Chloride [Moles/Vol] 98 mmol/L Normal 98-107 [facility] Comment on above: Performed By: #### L 500.4100, L500.4050, L100.0100, L506.1000, L501.9520 #### [facility] [address] [place], [address] CO2 [Moles/Vol] 26.0 mmol/L Normal 21.0-32.0 [facility] Comment on above: Performed By: #### L 500.4100, L500.4050, L100.0100, L506.1000, L501.9520 #### [facility] [address] [place], [address] Creatinine [Mass/Vol] 0.89 mg/dL Normal 0.55-1.02 [facility] Comment on above: Result Comment: The validity of the calculated GFR GFRAA in patients over 70 years has not been determined. Clinical correlation is essential. Performed By: #### L 500.4100, L500.4050, L100.0100, L506.1000, L501.9520 #### [facility] [address] [place], [address] EST GFR - AA 83 mL/min Normal >60 [facility] Comment on above: Result Comment: Afri can Fijian GFR Calc Performed By: #### L 500.4100, L500.4050, L100.0100, L506.1000, L501.9520 #### [facility] [address] [place], [address] GAP 10 Normal 5-15 [facility] Comment on above: Performed By: #### L 500.4100, L500.4050, L100.0100, L506.1000, L501.9520 #### [facility] [address] [place], [address] GFR/1.73 sq M.predicted among non-blacks MDRD (S/P/Bld) [Vol rate/Area] 69 mL/min/{1.73_m2} Normal >60 [facility] [facility] Comment on above: Result Comment: Non- GFR Calc Performed By: #### L 500.4100, L500.4050, L100.0100, L506.1000, L501.9520 #### [facility] [address] [place], [address] Globulin (S) [Mass/Vol] 3.9 g/dL Normal 2.2-4.2 [facility] Comment on above: Performed By: #### L 500.4100, L500.4050, L100.0100, L506.1000, L501.9520 #### [facility] [address] [place], [address] Glucose [Mass/Vol] 98 mg/dL Normal 74-106 [facility] Comment on above: Performed By: #### L 500.4100, L500.4050, L100.0100, L506.1000, L501.9520 #### [facility] [address] [place], [address] Potassium [Moles/Vol] 3.2 mmol/L Low 3.5-5.1 [facility] Comment on above: Performed By: #### L 500.4100, L500.4050, L100.0100, L506.1000, L501.9520 #### [facility] [address] [place], [address] Sodium [Moles/Vol] 134 mmol/L Low 136-145 [facility] Comment on above: Performed By: #### L 500.4100, L500.4050, L100.0100, L506.1000, L501.9520 #### [facility] [address] [place], [address] T PROT 6.6 g/dL Normal 6.4-8.2 [facility] Comment on above: Performed By: #### L 500.4100, L500.4050, L100.0100, L506.1000, L501.9520 #### [facility] [address] [place], [address] Urea nitrogen [Mass/Vol] 18 mg/dL Normal 7-18 [facility] Comment on above: Performed By: #### L 500.4100, L500.4050, L100.0100, L506.1000, L501.9520 #### [facility] [address] [place], [address] ENTERIC PATHOGEN PANEL STOOL on 04-02-2024 EP PANEL CAMPYLOBACTER Not Detected Norovirus Not Detected Rotavirus Not Detected Salmonella Not Detected Shiga Toxin Not Detected Shigella sp. Not Detected VIBRIO Not Detected Yersinia Not Detected Normal [facility] Comment on above: Performed By: #### L 300.3900, L100.0500 #### [facility] [address] [place], [address] Eosinophil percentageon 03-17 Eosinophils/100 WBC (Bld) 5.8 % High 0-5 [facility] Estimated glomerular filtrat ion rate (GFR) Americanon 04-02-2024 Estimated GFR (MDRD) Amer 83 mL/min >60 [facility] Comment on above: GFR Calc Glomerular filtration rate ( GFR) estimationon 04-02-2024 Estimated GFR (MDRD) Non-Af Amer 69 mL/min >60 [facility] Comment on above: Non- GFR Calc GFR/1.73 sq M.predicted among non-blacks MDRD (S/P/Bld) [Vol rate/Area] 69 mL/min/{1.73_m2} >60 [facility] Comment on above: Non- GFR Calc Glucose measurementon 2024 Glucose [Mass/Vol] 98 mg/dL 74-106 [facility] Immature granulocytes/100 WB C Auto (Bld)on 04-02-2024 Immature granulocytes/100 WBC (Bld) 0.800 % 0.0-0.9 [facility] Comment on above: IG% - Immature Granu locytes (promyelocytes, myelocytes and metamyelocytes) > 1% indicates that a LEFT SHIFT is Present. Laboratory - Chemistry and C hemistry - challengeon 04-02-2024 AST [Catalytic activity/Vol] 28 U/L 15-37 [facility] Lactoferrin IA Ql (Stl)Order ed By: Marcel Moya on 04-02-2024 Stool Lactoferrin [facility] Stool Lactoferrin [facility] Lower GI hemoglobin IA Ql (S tl)Ordered By: Marcel Moya on 04-02-2024 Stool Occult Blood (CORI) Positive Abnormal [facility] Stool Occult Blood (CORI) Positive Abnormal [facility] Lymphocytes Auto (Unsp spec) [#/Vol]on 04-02-2024 Lymphocytes (Bld) [#/Vol] 1.81 10*3/uL 0.83-4.51 [facility] Lymphocytes/100 WBC Auto (Un sp spec)on 04-02-2024 Lymphocytes/100 WBC (Bld) 9.2 % Low 19-41 [facility] Monocyte percentageon 2024 Monocytes/100 WBC (Bld) 6.8 % 0-10 [facility] Neutrophil percentageon 03-17 Neutrophils/100 WBC (Bld) 76.9 % High 47-70 [facility] Nucleated red blood cell per centageon 04-02-2024 Nucleated RBC/100 WBC (Bld) [Ratio] 0 % 0-5 [facility] Ova and parasitesOrdered By: Marcel Moya on 04-02-2024 Ova and Parasites [facility] Ova and Parasites [facility] Potassium measurementon 03-17 Potassium [Moles/Vol] 3.2 mmol/L Low 3.5-5.1 [facility] Prothrombin Time w/INRon INR Coag (PPP) [Relative time] 2.2 {INR} Normal [facility] Comment on above: Performed By: #### L 500.4100, L500.4050, L100.0100, L506.1000, L501.9520 #### [facility] [address] [place], [address] PT Coag (PPP) [Time] 25.3 s High 11.7-14.9 [facility] Comment on above: Performed By: #### L 500.4100, L500.4050, L100.0100, L506.1000, L501.9520 #### [facility] [address] [place], [address] Serum anion gap measuremento n 04-02-2024 Anion gap [Moles/Vol] 10 mmol/L 5-15 [facility] Serum globulin measurementon 04-02-2024 Globulin (S) [Mass/Vol] 3.9 g/dL 2.2-4.2 [facility] Serum or plasma alanine foster otransferase (ALT) measurementon 04-02-2024 ALT [Catalytic activity/Vol] 36 U/L 13-56 [facility] Serum or plasma albumin tika urement (mass/volume)on 04-02-2024 Albumin [Mass/Vol] 2.7 g/dL Low 3.2-5.0 [facility] Serum or plasma alkaline roberto sphatase measurementon 04-02-2024 ALP [Catalytic activity/Vol] 150 U/L High 45-117 [facility] Serum or plasma calcium tika urement (mass/volume)on 04-02-2024 Calcium [Mass/Vol] 9.4 mg/dL 8.5-10.1 [facility] Serum or plasma creatinine m easurement (mass/volume)on 04-02-2024 Creatinine [Mass/Vol] 0.89 mg/dL 0.55-1.02 [facility] Comment on above: The validity of the calculated GFR & GFRAA in patients over 70 years has not been determined. Clinical correlation is essential. Serum or plasma urea nitroge n measurement (mass/volume)on 04-02-2024 Urea nitrogen [Mass/Vol] 18 mg/dL 7-18 [facility] Sodium levelon 04-02-2024 Sodium [Moles/Vol] 134 mmol/L Low 136-145 [facility] Stool Clostridium difficile detectionOrdered By: Marcel Moya on 04-02-2024 C. difficile Ql (Stl) Toxigenic C. difficile Abnormal [facility] Stool Lactoferrin/WBCon 03-17 WBCST Normal Reference Ran ge = Negative Fecal WBC Lactoferrin A Positive: Fecal WBC Lactoferrin present A Normal [facility] Comment on above: Performed By: #### M 100.7900, M100.0605, M100.6796, M600.5000, M100.637, M100.6795 ####[facility] [address] [facility] [place], [address] Stool Occult Blood iFOBon STOB Positive Normal [facility] Comment on above: Performed By: #### L 300.3900, L100.0500 #### [facility] [address] [place], [place], [address] Stool enteric pathogen panel by probe and target amplification methodOrdered By: Marcel Moya on 04-02-2024 Enteric Bacteriology [facility] Enteric Bacteriology [facility] Stool gastrointestinal hemog lobin detection by immunologic methodOrdered By: Marcel Moya on 04-02-2024 Lower GI hemoglobin IA Ql (Stl) Positive Abnormal [facility] Stool lactoferrin detection by immunoassayOrdered By: Marcel Moya on 04-02-2024 Lactoferrin IA Ql (Stl) [facility] Total proteinon 04-02-2024 Protein [Mass/Vol] 6.6 g/dL 6.4-8.2 [facility] Discharge Instructionon 03-17 Discharge Instruction [facility] Medical Records Department [address] [place] [address] Instructions for Home/Discharge Instructions 03/29/24 1501 MR#: [id number] Acct: [id number] Name: JÃOO MUJICA Rep #: [id number] : 1965 58 From: Mejia Wheeler DO [...] Moya Chi, MD [Primary Care Provider] - [place] [STAFF PHYSICIAN] - Disposition Disposition (needs filled in before D/C Order can be placed): Home, Self Care 03/29/24 1507 Mejia Wheeler DO CC: Dr. Marcel Moya MD Signed Normal [facility] International normalized rat io (INR) calculationOrdered By: Mejia Wheeler on 03-29-2024 INR Coag (Bld) [Relative time] 2.7 {INR} [facility] Prothrombin Time w/INRon INR Coag (PPP) [Relative time] 2.7 {INR} Normal [facility] Comment on above: Performed By: #### L 500.4100, L500.4050, L100.0100, L506.1000, L501.9520 #### [facility] [address] [place], [address] PT Coag (PPP) [Time] 29.6 s High 11.7-14.9 [facility] Comment on above: Performed By: #### L 500.4100, L500.4050, L100.0100, L506.1000, L501.9520 #### [facility] [address] [place], [address] Prothrombin timeOrdered By: Mejia Wheeler on 03-29-2024 PT Coag (PPP) [Time] 29.6 s High 11.7-14.9 [facility] Abdomen Single View (Portabl e)on 03-28-2024 Abdomen Single View (Portable) [facility] Imaging Services [address] [place] [address] Abdomen Single View (Portable) MR#: [id number] Acct: [id number] Name: JOÃO MUJICA Rep #: [id number] : 1965 F 58 From: Mejia Mcconnell MD PCP: Dr. Marcel Moya MD Status: REG ER Study: Abdomen Single View (Portable) Date of Exam: 0 03/28/24 Exam# [id number] Ordering Dr: Sharath Forrest MD EXAM: XR Abdomen, 1 View CLINICAL INDICATION: TECHNIQUE: Frontal supine view of the abdomen/pelvis. COMPARISON: No relevant prior studies available. FINDINGS: GASTROINTESTINAL TRACT: Unremarkable. No dilation. BONES/JOINTS: Unremarkable. No acute fracture. TUBES, LINES AND DEVICES: Enteric tube is in the stomach. RAD/Abdomen Single View (Portable) IMPRESSION: Enteric tube is in the stomach. Reading [facility] CC: Dr. Sharath Forrest MD; Dr. Marcel Moya MD Pharmacist Helper: Signed Normal [facility] Abdomen/Pelvis W IV Cont ONL Yon 03-28-2024 Abdomen/Pelvis W IV Cont ONLY [facility] Imaging Services [address] [place] [address] Abdomen/Pelvis W IV Cont ONLY MR#: [id number] Acct: [id number] Name: JOÃO MUJICA Rep #: [id number] : 1965 F 58 From: Ludwin busch MD PCP: Dr. Marcel Moya MD Status: ADM IN Study: Abdomen/Pelvis W IV Cont ONLY Date of Exam: Exam# [id number] Ordering Dr: Sharath Forrest MD PROCEDURE: ABDOMEN/PELVIS [...] use of iterative reconstruction technique). Reading Location: [facility] CC: Dr. Sharath Forrest MD; Dr. Marcel Moya MD Pharmacist Helper: Signed Normal [facility] Absolute lymphocyte countOrd ered By: Sharath Forrest on 03-28-2024 Lymphocytes Auto (Unsp spec) [#/Vol] 1.28 10*3/uL 0.83-4.51 [facility] Absolute neutrophil countOrd ered By: Sharath Forrest on 03-28-2024 Neutrophils (Bld) [#/Vol] 6.8 10*3/uL 2.0-7.7 [facility] Albumin to globulin ratioOrd ered By: Sharath Forrest on 03-28-2024 Albumin/Globulin [Mass ratio] 0.9 {ratio} 0.9-2.4 [facility] Automated lymphocyte count a s percentage of total leukocytesOrdered By: Sharath Burkkeyon on 03-28-2024 Lymphocytes/100 WBC Auto (Unsp spec) 13.9 % Low 19-41 [facility] Basophil percentageOrdered B y: Sharath Forrest on 03-28-2024 Basophils/100 WBC (Bld) 0.4 % 0-1 [facility] Bilirubin, totalOrdered By: Sharath Burkkeyon on 03-28-2024 Bilirubin [Mass/Vol] 0.50 mg/dL 0.20-1.00 [facility] Comment on above: For patients on eltr ombopag therapy, use of Dimension [place] TBIL is not recommended. Blood urea nitrogen (BUN)/cr eatinine ratioOrdered By: Sharath Bhargavikeyon on 03-28-2024 Urea nitrogen/Creatinine [Mass ratio] 21.2 mg/mg High 10-20 [facility] CBC W/Diff, Automatedon 03-17 Absolute Lymph 1.28 X10 3/uL Normal 0.83-4.51 [facility] Comment on above: Performed By: #### L 500.4100, L500.4050, L100.0100, L506.1000, L501.9520 #### [facility] [address] [place], [address] Absolute Neut 6.8 X10 3/uL Normal 2.0-7.7 [facility] Comment on above: Performed By: #### L 500.4100, L500.4050, L100.0100, L506.1000, L501.9520 #### [facility] [address] [place], [address] Basophils/100 WBC (Bld) 0.4 % Normal 0-1 [facility] Comment on above: Performed By: #### L 500.4100, L500.4050, L100.0100, L506.1000, L501.9520 #### [facility] [address] [place], [address] Eosinophils/100 WBC (Bld) 4.7 % Normal 0-5 [facility] Comment on above: Performed By: #### L 500.4100, L500.4050, L100.0100, L506.1000, L501.9520 #### [facility] [address] [place], [address] Erythrocyte distribution width (RBC) [Ratio] 14.3 % Normal 11.6-14.6 [facility] Comment on above: Performed By: #### L 500.4100, L500.4050, L100.0100, L506.1000, L501.9520 #### [facility] [address] [place], [address] Hematocrit (Bld) [Volume fraction] 39.0 % Normal 37-47 [facility] Comment on above: Performed By: #### L 500.4100, L500.4050, L100.0100, L506.1000, L501.9520 #### [facility] [address] [place], [address] Hemoglobin (Bld) [Mass/Vol] 13.5 g/dL Normal 12.0-15.0 [facility] Comment on above: Performed By: #### L 500.4100, L500.4050, L100.0100, L506.1000, L501.9520 #### [facility] [address] [place], [address] IG% 0.300 Normal 0.0-0.9 [facility] Comment on above: Result Comment: IG% - Immature Granulocytes (promyelocytes, myelocytes and metamyelocytes) > 1% indicates that a LEFT SHIFT is Present. Performed By: #### L 500.4100, L500.4050, L100.0100, L506.1000, L501.9520 #### [facility] [address] [place], [address] Lymphocytes/100 WBC (Bld) 13.9 % Low 19-41 [facility] Comment on above: Performed By: #### L 500.4100, L500.4050, L100.0100, L506.1000, L501.9520 #### [facility] [address] [place], [address] MCH (RBC) [Entitic mass] 29.9 pg Normal 27.0-32.0 [facility] Comment on above: Performed By: #### L 500.4100, L500.4050, L100.0100, L506.1000, L501.9520 #### [facility] [address] [place], [address] MCHC (RBC) [Mass/Vol] 34.6 g/dL Normal 32-36 [facility] Comment on above: Performed By: #### L 500.4100, L500.4050, L100.0100, L506.1000, L501.9520 #### [facility] [address] [place], [address] MCV (RBC) [Entitic vol] 86.5 fL Normal 81-99 [facility] Comment on above: Performed By: #### L 500.4100, L500.4050, L100.0100, L506.1000, L501.9520 #### [facility] [address] [place], [address] Monocytes/100 WBC (Bld) 7.1 % Normal 0-10 [facility] Comment on above: Performed By: #### L 500.4100, L500.4050, L100.0100, L506.1000, L501.9520 #### [facility] [address] [place], [address] Neutrophils/100 WBC (Bld) 73.6 % High 47-70 [facility] Comment on above: Performed By: #### L 500.4100, L500.4050, L100.0100, L506.1000, L501.9520 #### [facility] [address] [place], [address] Nucleated RBC (Bld) [#/Vol] 0 10*3/uL Normal 0-5 [facility] Comment on above: Performed By: #### L 500.4100, L500.4050, L100.0100, L506.1000, L501.9520 #### [facility] [address] [place], [address] Platelet mean volume (Bld) [Entitic vol] 9.7 fL Normal 6.2-12.0 [facility] Comment on above: Performed By: #### L 500.4100, L500.4050, L100.0100, L506.1000, L501.9520 #### [facility] [address] [place], [address] Platelets (Bld) [#/Vol] 278 10*3/uL Normal 150-450 [facility] Comment on above: Performed By: #### L 500.4100, L500.4050, L100.0100, L506.1000, L501.9520 #### [facility] [address] [place], [address] RBC (Bld) [#/Vol] 4.51 10*6/uL Normal 4.2-5.4 [facility] Comment on above: Performed By: #### L 500.4100, L500.4050, L100.0100, L506.1000, L501.9520 #### [facility] [address] [place], [address] RDW SD 45.1 fl High 35.1-43.9 [facility] Comment on above: Performed By: #### L 500.4100, L500.4050, L100.0100, L506.1000, L501.9520 #### [facility] [address] [place], [address] WBC (Bld) [#/Vol] 9.2 10*3/uL Normal 4.4-11.0 [facility] Comment on above: Performed By: #### L 500.4100, L500.4050, L100.0100, L506.1000, L501.9520 #### [facility] [address] [place], [address] Carbon dioxide measurementOr dered By: Sharath Forrest on 03-28-2024 CO2 [Moles/Vol] 31.0 mmol/L 21.0-32.0 [facility] Chloride measurementOrdered By: Sharath Forrest on 03-28-2024 Chloride [Moles/Vol] 107 mmol/L 98-107 [facility] Comprehensive Metabolic Prof ilon 03-28-2024 Albumin [Mass/Vol] 3.6 g/dL Normal 3.2-5.0 [facility] Comment on above: Performed By: #### L 500.4100, L500.4050, L100.0100, L506.1000, L501.9520 #### [facility] [address] [place], [address] Albumin/Globulin [Mass ratio] 0.9 {ratio} Normal 0.9-2.4 [facility] Comment on above: Performed By: #### L 500.4100, L500.4050, L100.0100, L506.1000, L501.9520 #### [facility] [address] [place], [address] ALK P 168 U/L High 45-117 [facility] Comment on above: Performed By: #### L 500.4100, L500.4050, L100.0100, L506.1000, L501.9520 #### [facility] [address] [place], [address] ALT [Catalytic activity/Vol] 35 U/L Normal 13-56 [facility] Comment on above: Performed By: #### L 500.4100, L500.4050, L100.0100, L506.1000, L501.9520 #### [facility] [address] [place], [address] AST [Catalytic activity/Vol] 30 U/L Normal 15-37 [facility] Comment on above: Performed By: #### L 500.4100, L500.4050, L100.0100, L506.1000, L501.9520 #### [facility] [address] [place], [address] Bilirubin [Mass/Vol] 0.50 mg/dL Normal 0.20-1.00 [facility] Comment on above: Result Comment: For patients on eltrombopag therapy, use of Dimension [place] TBIL is not recommended. Performed By: #### L 500.4100, L500.4050, L100.0100, L506.1000, L501.9520 #### [facility] [address] [place], [address] BUN/CRE 21.2 RATIO High 10-20 [facility] Comment on above: Performed By: #### L 500.4100, L500.4050, L100.0100, L506.1000, L501.9520 #### [facility] [address] [place], [address] CA,Total 9.4 mg/dL Normal 8.5-10.1 [facility] Comment on above: Performed By: #### L 500.4100, L500.4050, L100.0100, L506.1000, L501.9520 #### [facility] [address] [place], [address] Chloride [Moles/Vol] 107 mmol/L Normal 98-107 [facility] Comment on above: Performed By: #### L 500.4100, L500.4050, L100.0100, L506.1000, L501.9520 #### [facility] [address] [place], [address] CO2 [Moles/Vol] 31.0 mmol/L Normal 21.0-32.0 [facility] Comment on above: Performed By: #### L 500.4100, L500.4050, L100.0100, L506.1000, L501.9520 #### [facility] [address] [place], [address] Creatinine [Mass/Vol] 0.90 mg/dL Normal 0.55-1.02 [facility] Comment on above: Result Comment: The validity of the calculated GFR GFRAA in patients over 70 years has not been determined. Clinical correlation is essential. Performed By: #### L 500.4100, L500.4050, L100.0100, L506.1000, L501.9520 #### [facility] [address] [place], [address] ECRCL 71.29 ml/min Normal [facility] Comment on above: Performed By: #### L 500.4100, L500.4050, L100.0100, L506.1000, L501.9520 #### [facility] [address] [place], [address] EST GFR - AA 83 mL/min Normal >60 [facility] Comment on above: Result Comment: Afri can Fijian GFR Calc Performed By: #### L 500.4100, L500.4050, L100.0100, L506.1000, L501.9520 #### [facility] [address] [place], [address] GAP 4 Low 5-15 [facility] Comment on above: Performed By: #### L 500.4100, L500.4050, L100.0100, L506.1000, L501.9520 #### [facility] [address] [place], [address] GFR/1.73 sq M.predicted among non-blacks MDRD (S/P/Bld) [Vol rate/Area] 68 mL/min/{1.73_m2} Normal >60 [facility] Comment on above: Result Comment: Non- GFR Calc Performed By: #### L 500.4100, L500.4050, L100.0100, L506.1000, L501.9520 #### [facility] [address] [place], [address] Globulin (S) [Mass/Vol] 3.8 g/dL Normal 2.2-4.2 [facility] Comment on above: Performed By: #### L 500.4100, L500.4050, L100.0100, L506.1000, L501.9520 #### [facility] [address] [place], [address] Glucose [Mass/Vol] 100 mg/dL Normal 74-106 [facility] Comment on above: Result Comment: Fast ing Glucose result from 100 to 125 mg/dL suggests IMPAIRED HOMEOSTASIS per A.D.A. criteria. Performed By: #### L 500.4100, L500.4050, L100.0100, L506.1000, L501.9520 #### [facility] [address] [place], [address] Potassium [Moles/Vol] 3.8 mmol/L Normal 3.5-5.1 [facility] Comment on above: Performed By: #### L 500.4100, L500.4050, L100.0100, L506.1000, L501.9520 #### [facility] [address] [place], [address] Sodium [Moles/Vol] 142 mmol/L Normal 136-145 [facility] Comment on above: Performed By: #### L 500.4100, L500.4050, L100.0100, L506.1000, L501.9520 #### [facility] [address] [place], [address] T PROT 7.4 g/dL Normal 6.4-8.2 [facility] Comment on above: Performed By: #### L 500.4100, L500.4050, L100.0100, L506.1000, L501.9520 #### [facility] [address] [place], [address] Urea nitrogen [Mass/Vol] 19 mg/dL High 7-18 [facility] Comment on above: Performed By: #### L 500.4100, L500.4050, L100.0100, L506.1000, L501.9520 #### [facility] [address] [place], [address] EGD Reporton 03-28-2024 EGD Report [facility] Medical Records Department [address] [place] [address] EGD Report MR#: [id number] Acct: [id number] Name: JOÃO MUJICA MELONY Rep #: [id number] : 1965 58 From: Trung Payne DO PCP: Dr. Marcel Moya MD Status:ADM IN Patient Name: João Mujica Procedure Date: 03/28/2024 3:52 PM Date of : 1965 Age: 58 Procedure: Upper GI endoscopy Indications: Epigastric abdominal pain, Coffee-ground emesis, Hematochezia Providers: Trung Friend, DO Medicines: Monitored Anesthesia Care Patient Profile: [...] one hemostatic clip was successfully placed. 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 There was no bleeding at the end [...] a heater probe. Clip was placed. 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 - Stenosed vertical banded gastroplasty with a [...] continuous infusion. Procedure Code(s): --- Professional --- 30986, Small intestinal endoscopy, enteroscopy beyond second portion of duodenum, not including ileum; with control of bleeding (eg, injection, bipolar cautery, unipolar cautery, laser, h (more content not included)... Normal [facility] Emergency Department Summary on 03-28-2024 Emergency Department Summary [facility] Medical Records Department [address] [place] [address] Emergency Department Summary 03/28/24 MR#: [id number] Acct: [id number] Name: JOÃO MUJICA MELONY Rep #: [id number] : 1965 58 From: Sharath Forrest MD [...] ulcers. Past medical history also includes gastroparesis. [facility] Medical History Thoracic aortic aneurysm Nonrheumatic aortic [...] history: Claudia Ramirez Daily Patient works at [facility] Lab ROS ROS ED ROS Narrative Constitutional: [...] is o (more content not included)... Normal [facility] Eosinophil percentageOrdered By: Sharath Forrest on 03-28-2024 Eosinophils/100 WBC (Bld) 4.7 % 0-5 [facility] Erythrocyte distribution wid th ratioOrdered By: Sharath Forrest on 03-28-2024 Erythrocyte distribution width (RBC) [Ratio] 14.3 % 11.6-14.6 [facility] Erythrocyte distribution wid th standard deviationOrdered By: Sharath Forrest on 03-28-2024 Erythrocyte distribution width (RBC) [Entitic vol] 45.1 fL High 35.1-43.9 [facility] Erythrocyte distribution width (RBC) [Ratio] 45.1 fl High 35.1-43.9 [facility] Estimated glomerular filtrat ion rate (GFR) AmericanOrdered By: Sharath Forrest on 03-28-2024 Estimated GFR (MDRD) Amer 83 mL/min >60 [facility] Comment on above: GFR Calc Estimation of creatinine eagle aranceOrdered By: Sharath Forrest on 03-28-2024 Estimated Creatinine Clearance Calc 71.29 ml/min [facility] Glomerular filtration rate ( GFR) estimationOrdered By: Maud Lon on 03-28-2024 Estimated GFR (MDRD) Non-Af Amer 68 mL/min >60 [facility] Comment on above: Non- GFR Calc GFR/1.73 sq M.predicted among non-blacks MDRD (S/P/Bld) [Vol rate/Area] 68 mL/min/{1.73_m2} >60 [facility] Comment on above: Non- GFR Calc Glucose measurementOrdered B y: Sharath Forrest on 03-28-2024 Glucose [Mass/Vol] 100 mg/dL 74-106 [facility] Comment on above: Fasting Glucose resu lt from 100 to 125 mg/dL suggests IMPAIRED HOMEOSTASIS per A.D.A. criteria. H AND P Exam - Hospitaliston 03-28-2024 H&P Exam - Hospitalist [facility] Medical Records Department [address] [place] [address] H P Exam - Hospitalist 03/28/24 1930 MR#: [id number] Acct: [id number] Name: JOÃO MUJICA Rep #: [id number] : 1965 58 From: Mejia Wheeler DO PCP: Dr. Marcel Moya MD Status:ADM IN Location: [place] [address] HPI - General General Date of Admission: 03/28/24 Date of Service: 03/28/24 Chief Complaint: Coffee-ground emesis, abdominal pain, lightheadedness HPI Narrative MAURICA MUJICA, is a 58 F who presents to the emergency room at [facility] with complaints of vomiting coffee-ground emesis, abdominal pain, and lightheadedness which started 2 days ago. Patient has a history of peptic ulcer disease in the past and had a gastroplasty in the past. Patient has a history of an artificial mechanical aortic valve and takes Coumadin chronically. He gets most of her care at the [facility] and is disabled from the [facility] due to PTSD. Lab obtained in the emergency room showed her hemoglobin to be 14, chemistry profile was unremarkable, alkaline phosphatase was slightly elevated at 168. INR was 2.6. An NG tube was inserted with return of coffee-ground material. I talked with gastroenterology and patient will be admitted and have an EGD performed today. [facility] Medical History Thoracic aortic aneurysm [...] history: Claudia Ramirez Daily Patient works at [employer] Constitutional Constitutional: Denies anorexia, change in weight, [...] 03/28/24 10:49 (more content not included)... Normal [facility] H. PYLORI STOOL AGon 025 H PYLORI STL AG Negative Normal Negative [facility] Comment on above: Result Comment: Perf ormed at: [facility] [address] [id number] Cake Inspector: Chet Murray PhD, Phone: [phone] Performed By: #### L 500.4100, L500.4050, L100.0100, L506.1000, L501.9520 #### [facility] [address] [place], [address] HH, Hemoglobin AND Hematocri ton 03-28-2024 Hematocrit (Bld) [Volume fraction] 36.7 % Low 37-47 [facility] Comment on above: Performed By: #### L 500.4100, L500.4050, L100.0100, L506.1000, L501.9520 #### [facility] [address] [place], [address] Hemoglobin (Bld) [Mass/Vol] 12.7 g/dL Normal 12.0-15.0 [facility] Comment on above: Performed By: #### L 500.4100, L500.4050, L100.0100, L506.1000, L501.9520 #### [facility] [address] [place], [address] Hematocrit (Bld) [Volume fraction] 37.9 % Normal 37-[address] [place] [address] Comment on above: Performed By: #### L 100.0600 ####[facility] [address] [place], [address] Hemoglobin (Bld) [Mass/Vol] 13.0 g/dL Normal 12.0-15.0 [facility] Comment on above: Performed By: #### L 100.0600 ####[facility] [address] [place], [address] Hematocrit (Bld) [Volume fraction] 39.0 % Normal 37-[address] [place] [address] Comment on above: Performed By: #### L 500.4100, L500.4050, L100.0100, L506.1000, L501.9520 #### [facility] [address] [place], [address] Hemoglobin (Bld) [Mass/Vol] 13.6 g/dL Normal 12.0-15.0 [facility] Comment on above: Performed By: #### L 500.4100, L500.4050, L100.0100, L506.1000, L501.9520 #### [facility] [address] [place], [address] Hematocrit (Bld) [Volume fraction] 40.4 % Normal 37-47 [facility] Comment on above: Performed By: #### L 300.3900, L100.0500 #### [facility] [address] [place], [address] Hemoglobin (Bld) [Mass/Vol] 14.0 g/dL Normal 12.0-15.0 [facility] Comment on above: Performed By: #### L 300.3900, L100.0500 #### [facility] [address] [place], [address] Hematocrit Auto (Bld) [Volum e fraction]Ordered By: Mejia Wheeler on 03-28-2024 Hematocrit (Bld) [Volume fraction] 36.7 % Low 37-47 [facility] Hemoglobin measurementOrdere d By: Mejia Wheeler on 03-28-2024 Hemoglobin (Bld) [Mass/Vol] 12.7 g/dL 12.0-15.0 [facility] Immature granulocytes/100 WB C Auto (Bld)Ordered By: Sharath Forrest on 03-28-2024 Immature granulocytes/100 WBC (Bld) 0.300 % 0.0-0.9 [facility] Comment on above: IG% - Immature Granu locytes (promyelocytes, myelocytes and metamyelocytes) > 1% indicates that a LEFT SHIFT is Present. Laboratory - Chemistry and C hemistry - challengeOrdered By: Sharath Forrest on 03-28-2024 AST [Catalytic activity/Vol] 30 U/L 15-37 [facility] Lipaseon 03-28-2024 Lipase [Catalytic activity/Vol] 34 U/L Low 73-393 [facility] Comment on above: Performed By: #### L 500.4100, L500.4050, L100.0100, L506.1000, L501.9520 #### [facility] [address] [place], [address] Lipase measurementOrdered By : Sharath Forrest on 03-28-2024 Lipase [Catalytic activity/Vol] 34 U/L Low 73-393 [facility] Lymphocytes Auto (Unsp spec) [#/Vol]Ordered By: Sharath Forrest on 03-28-2024 Lymphocytes (Bld) [#/Vol] 1.28 10*3/uL 0.83-4.51 [facility] Lymphocytes/100 WBC Auto (Un sp spec)Ordered By: Sharath Forrest on 03-28-2024 Lymphocytes/100 WBC (Bld) 13.9 % Low 19-41 [facility] MCV (mean corpuscular volume ) determinationOrdered By: Sharath Forrest on 03-28-2024 MCV (RBC) [Entitic vol] 86.5 fL 81-99 [facility] MR/CON.PCM.GIon 03-28-2024 MR/CON.PCM.GI [facility] Medical Records Department [address] [facility] [place] [address] Consultation - GI 03/28/24 1551 MR#: [id number] Acct: [id number] Name: JOÃO MUJICA MELONY Rep #: [id number] : 1965 58 From: [facility] Friend DO PCP: Dr. Marcel Moya MD Status:ADM IN Location: [place] [address] HPI Consult Data Date of Consult: 03/28/24 HPI Narrative Reason for Consultation: GI bleeding HPI Narrative: JOÃO MUJICA, is a 58-year-old female past medical [...] nauseated. She denies any other bleeding diathesis. [facility] Medical History Thoracic aortic aneurysm [...] history: Claudia Ramirez Daily Patient works at [facility] [employer] Lab ROS Constitutional Constitutional: Denies fatigue, fever(s), poor [...] 73.6 H, Lymph % (Auto) 13.9 L, Borden % (Auto) 7.1, Eos % (Auto) 4.7, [...] Albumin 3.6, Gl (more content not included)... [facility] MR/POSTOP.ANEon 03-28-2024 MR/POSTOP.ANE [facility] Medical Records Department [address] [place] [address] Anesthesia Postop Eval I 03/28/241640 MR#: [id number] Acct: [id number] Name: JOÃO MUJICA Rep #: [id number] : 1965 58 From: Dwain Shelton CRNA PCP: Dr. Marcel Moya MD Status:ADM IN Y Race: C Location: [place] [address] Anesthesia: Postop Eval I Current Vital Signs [...] Anesthesia document: Postop Eval 1 completed: Yes 03/28/241641 Date Dwain Shelton CRNA Cosigner Signature: Date CC: Signed [facility] MR/[id number] 03-28-2024 MR/POSTOPAN2 [facility] Medical Records Department [address] [place] [address] Anesthesia Postop Eval II 03/28/241641 MR#: [id number] Acct: [id number] Name: JOÃO MUJICA Rep #: [id number] : 1965 58 From: Dwain Shelton [employer] OFFICER PCP: Dr. Marcel Moya MD Status:ADM IN Y Race: C Location: [place] [address] Anesthesia Postop Eval I Sum Postop Eval Completion status Anesthesia document: Postop Eval 1 completed: Yes Anesthesia Postop Eval I Summary Anesthesia Postop Eval I Summary: Anesthesia Postop Eval I: Assessment Summary Airway patent Yes 03/28/24 16:42 [employer]JRIV Spontaneous unlabored Yes 03/28/24 16:42 [employer]JRIV respirations Mental status Awake 03/28/24 16:42 [employer]JRIV nausea No 03/28/24 16:42 [employer]JRIV Vomiting No 03/28/24 16:42 [employer].JRIV Anesthesia Postop Eval I: Fluid Summary Crystalloid volume administer 50 03/28/24 16:42 [employer].JRIV (ml) Colloids volume administered ( ml) Blood Product volume administered (ml) Total IV fluid infused 50 03/28/24 16:42 [employer].JRIV Anesthesia Postop Eval I: Summary Notes Anesthesia Complication No 03/28/24 16:42 [employer].JRIV Anesthesia Complication Comment: Post-operative progress note Anesthesia: Postop Eval II Evaluation Mental status: Awake and Calm Pain Level: 0 nausea: No Vomiting: No Complications Anesthesia Complication: No 03/28/24 1642 Date Dwain Shelton [employer] OFFICER Cosigner Signature: Date CC: Signed Normal [facility] Mean corpuscular hemoglobin (MCH) determinationOrdered By: Sharath Forrest on 03-28-2024 MCH (RBC) [Entitic mass] 29.9 pg 27.0-32.0 [facility] Mean corpuscular hemoglobin concentration (MCHC) determinationOrdered By: Sharath Forrest on 03-28-2024 MCHC (RBC) [Mass/Vol] 34.6 g/dL 32-36 [facility] Mean platelet volume determi nationOrdered By: Sharath Forrest on 03-28-2024 Platelet mean volume (Bld) [Entitic vol] 9.7 fL 6.2-12.0 [facility] Monocyte percentageOrdered B y: Sharath Forrest on 03-28-2024 Monocytes/100 WBC (Bld) 7.1 % 0-10 [facility] Neutrophil percentageOrdered By: Sharath Forrest on 03-28-2024 Neutrophils/100 WBC (Bld) 73.6 % High 47-70 [facility] Nucleated red blood cell per centageOrdered By: Sharath Forrest on 03-28-2024 Nucleated RBC/100 WBC (Bld) [Ratio] 0 % 0-5 [facility] Platelet countOrdered By: Crow Forrest on 03-28-2024 Platelets (Bld) [#/Vol] 278 10*3/uL 150-450 [facility] Potassium measurementOrdered By: Sharath Forrest on 03-28-2024 Potassium [Moles/Vol] 3.8 mmol/L 3.5-5.1 [facility] Prothrombin Time w/INRon INR Coag (PPP) [Relative time] 2.6 {INR} Normal [facility] Comment on above: Performed By: #### L 500.4100, L500.4050, L100.0100, L506.1000, L501.9520 #### [facility] [address] [place], [address] PT Coag (PPP) [Time] 28.5 s High 11.7-14.9 [facility] Comment on above: Performed By: #### L 500.4100, L500.4050, L100.0100, L506.1000, L501.9520 #### [facility] [address] [place], [address] RBC Auto (Bld) [#/Vol]Ordere d By: Sharath Forrest on 03-28-2024 RBC (Bld) [#/Vol] 4.51 10*6/uL 4.2-5.4 [facility] Serum anion gap measurementO rdered By: Sharath Forrest on 03-28-2024 Anion gap [Moles/Vol] 4 mmol/L Low 5-15 [facility] Serum globulin measurementOr dered By: Sharath Forrest on 03-28-2024 Globulin (S) [Mass/Vol] 3.8 g/dL 2.2-4.2 [facility] Serum or plasma alanine foster otransferase (ALT) measurementOrdered By: Sharath Forrest on 03-28-2024 ALT [Catalytic activity/Vol] 35 U/L 13-56 [facility] Serum or plasma albumin tika urement (mass/volume)Ordered By: Sharath Forrest on 03-28-2024 Albumin [Mass/Vol] 3.6 g/dL 3.2-5.0 [facility] Serum or plasma alkaline roberto sphatase measurementOrdered By: Sharath Forrest on 03-28-2024 ALP [Catalytic activity/Vol] 168 U/L High 45-117 [facility] Serum or plasma calcium tika urement (mass/volume)Ordered By: Sharath Forrest on 03-28-2024 Calcium [Mass/Vol] 9.4 mg/dL 8.5-10.1 [facility] Serum or plasma creatinine m easurement (mass/volume)Ordered By: Sharath Forrest on 03-28-2024 Creatinine [Mass/Vol] 0.90 mg/dL 0.55-1.02 [facility] Comment on above: The validity of the calculated GFR & GFRAA in patients over 70 years has not been determined. Clinical correlation is essential. Serum or plasma urea nitroge n measurement (mass/volume)Ordered By: Sharath Forrest on 03-28-2024 Urea nitrogen [Mass/Vol] 19 mg/dL High 7-18 [facility] Sodium levelOrdered By: Sharath Forrest on 03-28-2024 Sodium [Moles/Vol] 142 mmol/L 136-145 [facility] Total proteinOrdered By: Kamala Forrest on 03-28-2024 Protein [Mass/Vol] 7.4 g/dL 6.4-8.2 [facility] White blood cell (WBC) count Ordered By: Sharath Forrest on 03-28-2024 WBC (Bld) [#/Vol] 9.2 10*3/uL 4.4-11.0 [facility] H. pylori Ag IA Ql (Stl)Orde red By: Angela Walker on 03-26-2024 Stool Helicobacter pylori Antigen Negative Negative [facility] Comment on above: Performed at: [facility] [id number] [place], [place] [id number] Director: Chet Murray PhD, Phone: [phone] Prothrombin Time w/INRon INR Coag (PPP) [Relative time] 2.3 {INR} Normal [facility] Comment on above: Order Comment: PLEAS E FAX Performed By: #### L 500.4100, L500.4050, L100.0100, L506.1000, L501.9520 #### [facility] [address] [place], [place], [id number] PT Coag (PPP) [Time] 25.9 s High 11.7-14.9 [facility] Comment on above: Order Comment: PLEAS E FAX Performed By: #### L 500.4100, L500.4050, L100.0100, L506.1000, L501.9520 #### [facility] [address] [place], [address] Stool Helicobacter pylori an tigen detection by immunoassayOrdered By: Angela Walker on 03-26-2024 H. pylori Ag IA Ql (Stl) Negative Negative [facility] Comment on above: Performed at: [facility] [id number] [place], [place] [id number] Director: Chet Murray PhD, Phone: [phone] International normalized rat io (INR) calculationOrdered By: Karrie Kapadia on 03-05-2024 INR Coag (Bld) [Relative time] 2.5 {INR} [facility] Prothrombin Time w/INRon INR Coag (PPP) [Relative time] 2.5 {INR} Normal [facility] Comment on above: Performed By: #### L 500.4100, L500.4050, L100.0100, L506.1000, L501.9520 #### [facility] [address] [place], [address] PT Coag (PPP) [Time] 27.2 s High 11.7-14.9 [facility] Comment on above: Performed By: #### L 500.4100, L500.4050, L100.0100, L506.1000, L501.9520 #### [facility] [address] [place], [address] Prothrombin timeOrdered By: Karrie Kapadia on 03-05-2024 PT Coag (PPP) [Time] 27.2 s High 11.7-14.9 [facility] Urine Cultureon 03-04-2024 URC Mixed Gram Pos Gram Neg Org [place] Count 25,000-50,000 MIXC Mixed contaminants. Submit a new specimen if indicated. Normal [facility] Comment on above: Performed By: #### L 300.3900, L100.0500 #### [facility] [address] [place], [address] Bilirubin Test strip Ql (U)O rdered By: Marcel Moya on 03-02-2024 Bilirubin Ql (U) Negative Negative [facility] Epithelial cells.squamous LM Ql (Urine sed)Ordered By: Marcel Moya on 03-02-2024 Epithelial cells.squamous LM.HPF (Urine sed) [#/Area] 10 /[HPF] 5-10 [facility] Gastroenterology Visit Repor ton 03-02-2024 Gastroenterology Visit Report [facility] Gastroenterology [address] [facility] [place] [address] OFFICE VISIT Date of Service: 03/02/24 MR#: [id number] Acct: [id number] Name: JOÃO MUJICA Rep #: [id number] : 1965 Provider: MADY Goetz Age/Sex: 58/F Location: [facility] Status: Signed Intake Vital Signs 11/30/23 17:18 01/28/24 08:22 Height 5 ft 4 in 5 ft 4 in Intake Visit Reasons: Gastroparesis Chief Complaint: gastroparesis Allergies No Known Allergies Allergy (Verified 01/28/24 08:23) Nurse's Note: OV 03.02.25 Pt here to establish care with [facility]. Pt reports N/V, constipation, diarrhea, heartburn, gas and bloating. Has hx of ulcer. In her 20s she had a gastroplasty, gallbladder removed when she was in her 20s. Prior hx of EGD and colonoscopy. [facility] Medical History Thoracic aortic aneurysm [...] history: WoodyGuillermina Ashley Daily Patient works at [facility] HPI HPI Chief Complaint: gastroparesis Details: JOÃO MUJICA, is a 58 F who presents to the office today for establishment. Pt receives most of her care through the [facility] and was diagnosed many years ago with gastroparesis. She has had a GES in the past but not one recently. She has only been treated with pantoprazole 40 mg BID. She wanted a second opinion from [facility] which [...] Appearance: average body habitus and well nourished [facility] Head: normal to inspection Ears: [...] for a (more content not included)... Normal [facility] Glucose Ql (U)Ordered By: Jose Moya on 03-02-2024 Urine Glucose (UA) Normal mg/dl Normal [facility] Ketones Test strip Ql (U)Ord ered By: Marcel Moya on 03-02-2024 Ketones Ql (U) Negative Negative [facility] Microscopic analysis of urin e for red blood cells (RBC)Ordered By: Marcel Moya on 03-02-2024 Urine RBC 10-25 SEEN /hpf 0-5 [facility] Mucus LM Ql (Urine sed)Order ed By: Marcel Moya on 03-02-2024 Mucus Ql (Urine sed) 2+ /hpf [facility] Nitrite Test strip Ql (U)Ord ered By: Marcel Moya on 03-02-2024 Nitrite Ql (U) Negative Negative [facility] Protein Test strip Ql (U)Ord ered By: Marcel Moya on 03-02-2024 Protein Ql (U) 30 mg/dl High Negative [facility] Urinalysis, Completeon 03-02 BACTERIA 2+ /hpf Normal None Seen [facility] Comment on above: Order Comment: Urine , Random Performed By: #### L 300.3900, L100.0500 #### [facility] [address] [place], [address] Mucus Ql (Urine sed) 2+ /hpf Normal [facility] Comment on above: Order Comment: Urine , Random Performed By: #### L 300.3900, L100.0500 #### [facility] [address] [place], [address] EPI,SQUAMOUS 10-25 SEEN Normal 5-10 [facility] Comment on above: Order Comment: Urine , Random Performed By: #### L 300.3900, L100.0500 #### [facility] [address] [place], [address] RBC 10-25 SEEN Normal 0-5 [facility] Comment on above: Order Comment: Urine , Random Performed By: #### L 300.3900, L100.0500 #### [facility] [address] [place], [address] WBC >100 SEEN Normal 0-5 [facility] Comment on above: Order Comment: Urine , Random Performed By: #### L 300.2920, L100.0500 #### [facility] [address] [place], [address] Urine blood detectionOrdered By: Marcel Moya on 03-02-2024 Urine Occult Blood 250 /ul High Negative [facility] Urine clarityOrdered By: Marcel Moya on 03-02-2024 Clarity (U) Cloudy Clear [facility] Urine color determinationOrd ered By: Marcel Moya on 03-02-2024 Color (U) Yellow Yellow [facility] Urine cultureOrdered By: Marcel Moya on 03-02-2024 Bacteria identified Cx Nom (U) Mixed Gram Pos & Gram Neg Org Abnormal [facility] Bacteria identified Cx Nom (U) Mixed Gram Pos & Gram Neg Org Abnormal [facility] Urine leukocyte esterase det ection by dipstickOrdered By: Marcel Moya on 03-02-2024 Leukocyte esterase Test strip Ql (U) 500 /ul High Negative [facility] Urine pHOrdered By: Marcel Moya on 03-02-2024 pH (U) 5.0 [pH] 5.0 - 8.0 [facility] Urine sediment bacteria coun t by microscopy (number/high power field)Ordered By: Marecl Moya on 03-02-2024 Bacteria LM.HPF (Urine sed) [#/Area] 2 /[HPF] None Seen [facility] Urine specific gravity measu rementOrdered By: Marcel Moya on 03-02-2024 Specific gravity (U) [Rel density] 1.025 1.002-1.03 0 [facility] Urobilinogen Ql (U)Ordered B y: Marcel Moya on 03-02-2024 Urine Urobilinogen Normal mg/dl Normal [facility] White blood cell countOrdere d By: Marcel Moya on 03-02-2024 Urine WBC >100 SEEN /hpf 0-5 [facility] 64-UE-Sdjmgve DOrdered By: Deny Moya on 02-21-2024 Vitamin D 25-Hydroxy 31.2 ng/mL [facility] Comment on above: Vitamin D 25(OH) Sta tus Range Deficiency <20 ng/mL (50nmol/L) Insufficiency 20 - 30 ng/mL (50 - 75 nmol/L) Sufficiency 30 - 100 ng/mL (75 - 250 nmol/L) Toxicity >100 ng/mL (>250 nmol/L) Absolute neutrophil countOrd ered By: Marcel Moya on 02-21-2024 Neutrophils (Bld) [#/Vol] 5.0 10*3/uL 2.0-7.7 [facility] Albumin to globulin ratioOrd ered By: Marcel Moya on 02-21-2024 Albumin/Globulin [Mass ratio] 1.0 {ratio} 0.9-2.4 [facility] Basophil percentageOrdered B y: Marcel Griffin on 02-21-2024 Basophils/100 WBC (Bld) 0.8 % 0-1 [facility] Bilirubin, totalOrdered By: Marcel Moya on 02-21-2024 Bilirubin [Mass/Vol] 0.60 mg/dL 0.20-1.00 [facility] Comment on above: For patients on eltr ombopag therapy, use of Dimension [place] TBIL is not recommended. Blood urea nitrogen (BUN)/cr eatinine ratioOrdered By: Marcel Moya on 02-21-2024 Urea nitrogen/Creatinine [Mass ratio] 19.5 mg/mg 10-20 [facility] CBC W/Diff, Automatedon Absolute Lymph 1.90 X10 3/uL Normal 0.83-4.51 [facility] Comment on above: Performed By: #### L 500.4100, L500.4050, L100.0100, L506.1000, L501.9520 #### [facility] [address] [place], [address] Absolute Neut 5.0 X10 3/uL Normal 2.0-7.7 [facility] Comment on above: Performed By: #### L 500.4100, L500.4050, L100.0100, L506.1000, L501.9520 #### [facility] [address] [place], [address] Basophils/100 WBC (Bld) 0.8 % Normal 0-1 [facility] Comment on above: Performed By: #### L 500.4100, L500.4050, L100.0100, L506.1000, L501.9520 #### [facility] [address] [place], [address] Eosinophils/100 WBC (Bld) 4.4 % Normal 0-5 [facility] Comment on above: Performed By: #### L 500.4100, L500.4050, L100.0100, L506.1000, L501.9520 #### [facility] [address] [place], [address] Erythrocyte distribution width (RBC) [Ratio] 14.4 % Normal 11.6-14.6 [facility] Comment on above: Performed By: #### L 500.4100, L500.4050, L100.0100, L506.1000, L501.9520 #### [facility] [address] [place], [address] Hematocrit (Bld) [Volume fraction] 41.1 % Normal 37-47 [facility] Comment on above: Performed By: #### L 500.4100, L500.4050, L100.0100, L506.1000, L501.9520 #### [facility] [address] [place], [address] Hemoglobin (Bld) [Mass/Vol] 13.9 g/dL Normal 12.0-15.0 [facility] Comment on above: Performed By: #### L 500.4100, L500.4050, L100.0100, L506.1000, L501.9520 #### [facility] [address] [place], [address] IG% 0.100 Normal 0.0-0.9 [facility] Comment on above: Result Comment: IG% - Immature Granulocytes (promyelocytes, myelocytes and metamyelocytes) > 1% indicates that a LEFT SHIFT is Present. Performed By: #### L 500.4100, L500.4050, L100.0100, L506.1000, L501.9520 #### [facility] [address] [place], [address] Lymphocytes/100 WBC (Bld) 23.9 % Normal 19-41 [facility] Comment on above: Performed By: #### L 500.4100, L500.4050, L100.0100, L506.1000, L501.9520 #### [facility] [address] [place], [address] MCH (RBC) [Entitic mass] 28.9 pg Normal 27.0-32.0 [facility] Comment on above: Performed By: #### L 500.4100, L500.4050, L100.0100, L506.1000, L501.9520 #### [facility] [address] [place], [address] MCHC (RBC) [Mass/Vol] 33.8 g/dL Normal 32-36 [facility] Comment on above: Performed By: #### L 500.4100, L500.4050, L100.0100, L506.1000, L501.9520 #### [facility] [address] [place], [address] MCV (RBC) [Entitic vol] 85.4 fL Normal 81-99 [facility] Comment on above: Performed By: #### L 500.4100, L500.4050, L100.0100, L506.1000, L501.9520 #### [facility] [address] [place], [address] Monocytes/100 WBC (Bld) 7.5 % Normal 0-10 [facility] Comment on above: Performed By: #### L 500.4100, L500.4050, L100.0100, L506.1000, L501.9520 #### [facility] [address] [place], [address] Neutrophils/100 WBC (Bld) 63.3 % Normal 47-70 [facility] Comment on above: Performed By: #### L 500.4100, L500.4050, L100.0100, L506.1000, L501.9520 #### [facility] [address] [place], [address] Nucleated RBC (Bld) [#/Vol] 0 10*3/uL Normal 0-5 [facility] Comment on above: Performed By: #### L 500.4100, L500.4050, L100.0100, L506.1000, L501.9520 #### [facility] [address] [place], [address] Platelet mean volume (Bld) [Entitic vol] 10.1 fL Normal 6.2-12.0 [facility] Comment on above: Performed By: #### L 500.4100, L500.4050, L100.0100, L506.1000, L501.9520 #### [facility] [address] [place], [address] Platelets (Bld) [#/Vol] 318 10*3/uL Normal 150-450 [facility] Comment on above: Performed By: #### L 500.4100, L500.4050, L100.0100, L506.1000, L501.9520 #### [facility] [address] [place], [address] RBC (Bld) [#/Vol] 4.81 10*6/uL Normal 4.2-5.4 [facility] Comment on above: Performed By: #### L 500.4100, L500.4050, L100.0100, L506.1000, L501.9520 #### [facility] [address] [place], [address] RDW SD 45.1 fl High 35.1-43.9 [facility] Comment on above: Performed By: #### L 500.4100, L500.4050, L100.0100, L506.1000, L501.9520 #### [facility] [address] [place], [address] WBC (Bld) [#/Vol] 8.0 10*3/uL Normal 4.4-11.0 [facility] Comment on above: Performed By: #### L 500.4100, L500.4050, L100.0100, L506.1000, L501.9520 #### [facility] [address] [place], [address] Carbon dioxide measurementOr dered By: Marcel Moya on 02-21-2024 CO2 [Moles/Vol] 30.0 mmol/L 21.0-32.0 [facility] Chloride measurementOrdered By: Marcel Moya on 02-21-2024 Chloride [Moles/Vol] 105 mmol/L 98-107 [facility] Comprehensive Metabolic Prof ilon 02-21-2024 Albumin [Mass/Vol] 4.0 g/dL Normal 3.2-5.0 [facility] Comment on above: Performed By: #### L 500.4100, L500.4050, L100.0100, L506.1000, L501.9520 #### [facility] [address] [place], [address] Albumin/Globulin [Mass ratio] 1.0 {ratio} Normal 0.9-2.4 [facility] Comment on above: Performed By: #### L 500.4100, L500.4050, L100.0100, L506.1000, L501.9520 #### [facility] [address] [place], [address] ALK P 150 U/L High 45-117 [facility] Comment on above: Performed By: #### L 500.4100, L500.4050, L100.0100, L506.1000, L501.9520 #### [facility] [address] [place], [address] ALT [Catalytic activity/Vol] 30 U/L Normal 13-56 [facility] Comment on above: Performed By: #### L 500.4100, L500.4050, L100.0100, L506.1000, L501.9520 #### [facility] [address] [place], [address] AST [Catalytic activity/Vol] 25 U/L Normal 15-37 [facility] Comment on above: Performed By: #### L 500.4100, L500.4050, L100.0100, L506.1000, L501.9520 #### [facility] [address] [place], [address] Bilirubin [Mass/Vol] 0.60 mg/dL Normal 0.20-1.00 [facility] Comment on above: Result Comment: For patients on eltrombopag therapy, use of Dimension [place] TBIL is not recommended. Performed By: #### L 500.4100, L500.4050, L100.0100, L506.1000, L501.9520 #### [facility] [address] [place], [address] BUN/CRE 19.5 RATIO Normal 10-20 [facility] Comment on above: Performed By: #### L 500.4100, L500.4050, L100.0100, L506.1000, L501.9520 #### [facility] [address] [place], [address] CA,Total 9.7 mg/dL Normal 8.5-10.1 [facility] Comment on above: Performed By: #### L 500.4100, L500.4050, L100.0100, L506.1000, L501.9520 #### [facility] [address] [place], [address] Chloride [Moles/Vol] 105 mmol/L Normal 98-107 [facility] Comment on above: Performed By: #### L 500.4100, L500.4050, L100.0100, L506.1000, L501.9520 #### [facility] [address] [place], [address] CO2 [Moles/Vol] 30.0 mmol/L Normal 21.0-32.0 [facility] Comment on above: Performed By: #### L 500.4100, L500.4050, L100.0100, L506.1000, L501.9520 #### [facility] [address] [place], [address] Creatinine [Mass/Vol] 0.87 mg/dL Normal 0.55-1.02 [facility] Comment on above: Result Comment: The validity of the calculated GFR GFRAA in patients over 70 years has not been determined. Clinical correlation is essential. Performed By: #### L 500.4100, L500.4050, L100.0100, L506.1000, L501.9520 #### [facility] [address] [place], [address] EST GFR - AA 86 mL/min Normal >60 [facility] Comment on above: Result Comment: Afri can Fijian GFR Calc Performed By: #### L 500.4100, L500.4050, L100.0100, L506.1000, L501.9520 #### [facility] [address] [place], [address] GAP 5 Normal 5-15 [facility] Comment on above: Performed By: #### L 500.4100, L500.4050, L100.0100, L506.1000, L501.9520 #### [facility] [address] [place], [address] GFR/1.73 sq M.predicted among non-blacks MDRD (S/P/Bld) [Vol rate/Area] 71 mL/min/{1.73_m2} Normal >60 [facility] Comment on above: Result Comment: Non- GFR Calc Performed By: #### L 500.4100, L500.4050, L100.0100, L506.1000, L501.9520 #### [facility] [address] [place], [address] Globulin (S) [Mass/Vol] 3.9 g/dL Normal 2.2-4.2 [facility] Comment on above: Performed By: #### L 500.4100, L500.4050, L100.0100, L506.1000, L501.9520 #### [facility] [address] [place], [address] Glucose [Mass/Vol] 94 mg/dL Normal 74-106 [facility] Comment on above: Performed By: #### L 500.4100, L500.4050, L100.0100, L506.1000, L501.9520 #### [facility] [address] [place], [address] Potassium [Moles/Vol] 4.0 mmol/L Normal 3.5-5.1 [facility] Comment on above: Performed By: #### L 500.4100, L500.4050, L100.0100, L506.1000, L501.9520 #### [facility] [address] [place], [address] Sodium [Moles/Vol] 140 mmol/L Normal 136-145 [facility] Comment on above: Performed By: #### L 500.4100, L500.4050, L100.0100, L506.1000, L501.9520 #### [facility] [address] [place], [address] T PROT 7.9 g/dL Normal 6.4-8.2 [facility] Comment on above: Performed By: #### L 500.4100, L500.4050, L100.0100, L506.1000, L501.9520 #### [facility] [address] [place], [address] Urea nitrogen [Mass/Vol] 17 mg/dL Normal 7-18 [facility] Comment on above: Performed By: #### L 500.4100, L500.4050, L100.0100, L506.1000, L501.9520 #### [facility] [address] [place], [address] Eosinophil percentageOrdered By: Marcel Moya on 02-21-2024 Eosinophils/100 WBC (Bld) 4.4 % 0-5 [facility] Erythrocyte distribution wid th ratioOrdered By: Marcel Moya on 02-21-2024 Erythrocyte distribution width (RBC) [Ratio] 14.4 % 11.6-14.6 [facility] Erythrocyte distribution wid th standard deviationOrdered By: Marcel Moya on 02-21-2024 Erythrocyte distribution width (RBC) [Entitic vol] 45.1 fL High 35.1-43.9 [facility] Estimated glomerular filtrat ion rate (GFR) AmericanOrdered By: Marcel Moya on 02-21-2024 Estimated GFR (MDRD) Amer 86 mL/min >60 [facility] Comment on above: GFR Calc Glomerular filtration rate ( GFR) estimationOrdered By: Marcel Moya on 02-21-2024 Estimated GFR (MDRD) Non-Af Amer 71 mL/min >60 [facility] Comment on above: Non- GFR Calc Glucose measurementOrdered B y: Marcel Moya on 02-21-2024 Glucose [Mass/Vol] 94 mg/dL 74-106 [facility] Hematocrit Auto (Bld) [Volum e fraction]Ordered By: Marcel Moya on 02-21-2024 Hematocrit (Bld) [Volume fraction] 41.1 % 37-47 [facility] Hemoglobin measurementOrdere d By: Marcel Moya on 02-21-2024 Hemoglobin (Bld) [Mass/Vol] 13.9 g/dL 12.0-15.0 [facility] High density lipoprotein (HD L) measurementOrdered By: Marcel Moya on 02-21-2024 Cholesterol in HDL [Mass/Vol] 48 mg/dL >40 [facility] Comment on above: The drugs N-Acetylcy steine and Metamizole may falsely depress this assay. Reference Range HDL <40 mg/dL Low HDL Cholesterol HDL >or= 60 mg/dL High HDL Cholesterol Immature granulocytes/100 WB C Auto (Bld)Ordered By: Marcel Moya on 02-21-2024 Immature granulocytes/100 WBC (Bld) 0.100 % 0.0-0.9 [facility] Comment on above: IG% - Immature Granu locytes (promyelocytes, myelocytes and metamyelocytes) > 1% indicates that a LEFT SHIFT is Present. Laboratory - Chemistry and C hemistry - challengeOrdered By: Marcel Moya on 02-21-2024 AST [Catalytic activity/Vol] 25 U/L 15-37 [facility] Lipid Profileon 02-21-2024 Cholesterol [Mass/Vol] 195 mg/dL Normal 200 [facility] Comment on above: Result Comment: <200 mg/dL Desirable 200-240 mg/dL Borderline >240 mg/dL High Risk Performed By: #### L 500.4100, L500.4050, L100.0100, L506.1000, L501.9520 #### [facility] [address] [place], [address] Cholesterol in HDL [Mass/Vol] 48 mg/dL Normal [facility] Comment on above: Result Comment: The drugs N-Acetylcysteine and Metamizole may falsely depress this assay. Reference Range HDL <40 mg/dL Low HDL Cholesterol HDL >or= 60 mg/dL High HDL Cholesterol Performed By: #### L 500.4100, L500.4050, L100.0100, L506.1000, L501.9520 #### [facility] [address] [place], [address] Cholesterol in LDL [Mass/Vol] 100 mg/dL Normal 0-130 [facility] Comment on above: Performed By: #### L 500.4100, L500.4050, L100.0100, L506.1000, L501.9520 #### [facility] [address] [place], [address] Cholesterol in VLDL [Mass/Vol] 47 mg/dL High 5-40 [facility] Comment on above: Performed By: #### L 500.4100, L500.4050, L100.0100, L506.1000, L501.9520 #### [facility] [address] [place], [address] Triglyceride [Mass/Vol] 235 mg/dL High [facility] Comment on above: Result Comment: The drugs N-Acetylcysteine and Metamizole may falsely depress this assay. Serum Triglycerides Reference Interval Normal <150 mg/dL Borderline high 150 - 199 mg/dL High 200 - 499 mg/dL Very High > or = 500 mg/dL Performed By: #### L 500.4100, L500.4050, L100.0100, L506.1000, L501.9520 #### [facility] [address] [place], [address] Low density lipoprotein (LDL ) cholesterol measurementOrdered By: Marcel Moya on 02-21-2024 Cholesterol in LDL [Mass/Vol] 100 mg/dL 0-130 [facility] Lymphocytes Auto (Unsp spec) [#/Vol]Ordered By: Marcel Moya on 02-21-2024 Lymphocytes (Bld) [#/Vol] 1.90 10*3/uL 0.83-4.51 [facility] Lymphocytes/100 WBC Auto (Un sp spec)Ordered By: Marcel Moya on 02-21-2024 Lymphocytes/100 WBC (Bld) 23.9 % 19-41 [facility] MCV (mean corpuscular volume ) determinationOrdered By: Marcel Moya on 02-21-2024 MCV (RBC) [Entitic vol] 85.4 fL 81-99 [facility] Mean corpuscular hemoglobin (MCH) determinationOrdered By: Marcel Moya on 02-21-2024 MCH (RBC) [Entitic mass] 28.9 pg 27.0-32.0 [facility] Mean corpuscular hemoglobin concentration (MCHC) determinationOrdered By: Marcel Moya on 02-21-2024 MCHC (RBC) [Mass/Vol] 33.8 g/dL 32-36 [facility] Mean platelet volume determi nationOrdered By: Marcel Moya on 02-21-2024 Platelet mean volume (Bld) [Entitic vol] 10.1 fL 6.2-12.0 [facility] Monocyte percentageOrdered B y: Marcel Moya on 02-21-2024 Monocytes/100 WBC (Bld) 7.5 % 0-10 [facility] Neutrophil percentageOrdered By: Marcel Moya on 02-21-2024 Neutrophils/100 WBC (Bld) 63.3 % 47-70 [facility] Nucleated red blood cell per centageOrdered By: Marcel Moya on 02-21-2024 Nucleated RBC/100 WBC (Bld) [Ratio] 0 % 0-5 [facility] Platelet countOrdered By: Jose Moya on 02-21-2024 Platelets (Bld) [#/Vol] 318 10*3/uL 150-450 [facility] Potassium measurementOrdered By: Marcel Moya 02-21-2024 Potassium [Moles/Vol] 4.0 mmol/L 3.5-5.1 [facility] RBC Auto (Bld) [#/Vol]Ordere d By: Marcel Moya on 02-21-2024 RBC (Bld) [#/Vol] 4.81 10*6/uL 4.2-5.4 [facility] Serum anion gap measurementO rdered By: Marcel Moya on 02-21-2024 Anion gap [Moles/Vol] 5 mmol/L 5-15 [facility] Serum globulin measurementOr dered By: Marcel Moya 02-21-2024 Globulin (S) [Mass/Vol] 3.9 g/dL 2.2-4.2 [facility] Serum or plasma alanine foster otransferase (ALT) measurementOrdered By: Marcel Moya on 02-21-2024 ALT [Catalytic activity/Vol] 30 U/L 13-56 [facility] Serum or plasma albumin tika urement (mass/volume)Ordered By: Marcel Moya on 02-21-2024 Albumin [Mass/Vol] 4.0 g/dL 3.2-5.0 [facility] Serum or plasma alkaline roberto sphatase measurementOrdered By: Marcel Moya on 02-21-2024 ALP [Catalytic activity/Vol] 150 U/L High 45-117 [facility] Serum or plasma calcium tika urement (mass/volume)Ordered By: Marcel Moya on 02-21-2024 Calcium [Mass/Vol] 9.7 mg/dL 8.5-10.1 [facility] Serum or plasma cholesterol measurement (mass/volume)Ordered By: Marcel Moya on 02-21-2024 Cholesterol [Mass/Vol] 195 mg/dL <200 [facility] Comment on above: <200 mg/dL Desirable 200-240 mg/dL Borderline >240 mg/dL High Risk Serum or plasma creatinine m easurement (mass/volume)Ordered By: Marcel Moya on 02-21-2024 Creatinine [Mass/Vol] 0.87 mg/dL 0.55-1.02 [facility] Comment on above: The validity of the calculated GFR & GFRAA in patients over 70 years has not been determined. Clinical correlation is essential. Serum or plasma urea nitroge n measurement (mass/volume)Ordered By: Marcel Moya on 02-21-2024 Urea nitrogen [Mass/Vol] 17 mg/dL 7-18 [facility] Sodium levelOrdered By: Marcel Moya on 02-21-2024 Sodium [Moles/Vol] 140 mmol/L 136-145 [facility] TSH QnOrdered By: Marcel Moya o n 02-21-2024 Thyroid Stimulating Hormone (TSH) 2.500 uIU/mL 0.358-3.74 0 [facility] Thyroid Stim Hormone (TSH)on 02-21-2024 TSH 2.500 uIU/mL Normal 0.358-3.74 0 [facility] Comment on above: Performed By: #### L 500.4100, L500.4050, L100.0100, L506.1000, L501.9520 #### [facility] [address] [place], [place], [id number] Total proteinOrdered By: Marcel Moya on 02-21-2024 Protein [Mass/Vol] 7.9 g/dL 6.4-8.2 [facility] Triglycerides measurementOrd ered By: Marcel Moya on 02-21-2024 Triglyceride [Mass/Vol] 235 mg/dL High <199 [facility] Comment on above: The drugs N-Acetylcy steine and Metamizole may falsely depress this assay.Serum Triglycerides Reference Interval Normal <150 mg/dL Borderline high 150 - 199 mg/dL High 200 - 499 mg/dL Very High > or = 500 mg/dL Very low density lipoprotein (VLDL) cholesterol measurementOrdered By: Marcel Moya on 02-21-2024 VLDL Cholesterol 47 mg/dL High 5-40 [facility] Vitamin D,25 Hydroxyon 02-20 Vitamin D 25-OH 31.2 ng/mL Normal [facility] Comment on above: Result Comment: Mona min D 25(OH) Status Range Deficiency <20 ng/mL (50nmol/L) Insufficiency 20 - 30 ng/mL (50 - 75 nmol/L) Sufficiency 30 - 100 ng/mL (75 - 250 nmol/L) Toxicity >100 ng/mL (>250 nmol/L) Performed By: #### L 500.4100, L500.4050, L100.0100, L506.1000, L501.9520 #### [facility] [address] [place], [address] White blood cell (WBC) count Ordered By: Marcel Moya on 02-21-2024 WBC (Bld) [#/Vol] 8.0 10*3/uL 4.4-11.0 [facility] Urine Cultureon 02-01-2024 [facility] Presumptive E. coli [place] Count 11,000-25,000 Presumptive E. coli: REACTION Ampicillin [...] TMP SMX Islt CORI <=20 S Normal [facility] Comment on above: Performed By: #### M 100.2200 ####[facility] [address] [place], [address] Absolute neutrophil counton 01-31-2024 Neutrophils (Bld) [#/Vol] 5.0 10*3/uL 2.0-7.7 [facility] Basophil percentageon 2023 Basophils/100 WBC (Bld) 0.6 % 0-1 [facility] CBC W/Diff, Automatedon - Absolute Lymph 2.25 X10 3/uL Normal 0.83-4.51 [facility] Comment on above: Order Comment: PLEAS E FAX LABS TO [id number] Performed By: #### L 100.0100, L300.3900 ####[facility] [address] [place], [address] Absolute Neut 5.0 X10 3/uL Normal 2.0-7.7 [facility] Comment on above: Order Comment: PLEAS E FAX LABS TO [id number] Performed By: #### L 100.0100, L300.3900 ####[facility] [address] [place], [address] Basophils/100 WBC (Bld) 0.6 % Normal 0-1 [facility] Comment on above: Order Comment: PLEAS E FAX LABS TO [id number] Performed By: #### L 100.0100, L300.3900 ####[facility] [address] [place], [address] Eosinophils/100 WBC (Bld) 6.7 % High 0-5 [facility] Comment on above: Order Comment: PLEAS E FAX LABS TO [id number] Performed By: #### L 100.0100, L300.3900 ####[facility] [address] [place], [address] Erythrocyte distribution width (RBC) [Ratio] 14.3 % Normal 11.6-14.6 [facility] Comment on above: Order Comment: PLEAS E FAX LABS TO [id number] Performed By: #### L 100.0100, L300.3900 ####[facility] [address] [place], [address] Hematocrit (Bld) [Volume fraction] 39.4 % Normal 37-47 [facility] Comment on above: Order Comment: PLEAS E FAX LABS TO [id number] Performed By: #### L 100.0100, L300.3900 ####[facility] [address] [place], [address] Hemoglobin (Bld) [Mass/Vol] 13.5 g/dL Normal 12.0-15.0 [facility] Comment on above: Order Comment: PLEAS E FAX LABS TO [id number] Performed By: #### L 100.0100, L300.3900 ####[facility] [address] [place], [address] IG% 0.300 Normal 0.0-0.9 [facility] Comment on above: Order Comment: PLEAS E FAX LABS TO [id number] Result Comment: IG% - Immature Granulocytes (promyelocytes, myelocytes and metamyelocytes) > 1% indicates that a LEFT SHIFT is Present. Performed By: #### L 100.0100, L300.3900 ####[facility] [address] [place], [address] Lymphocytes/100 WBC (Bld) 25.7 % Normal 19-41 [facility] Comment on above: Order Comment: PLEAS E FAX LABS TO [id number] Performed By: #### L 100.0100, L300.3900 ####[facility] [address] [place], [address] MCH (RBC) [Entitic mass] 28.8 pg Normal 27.0-32.0 [facility] Comment on above: Order Comment: PLEAS E FAX LABS TO [id number] Performed By: #### L 100.0100, L300.3900 ####[facility] [address] [place], [address] MCHC (RBC) [Mass/Vol] 34.3 g/dL Normal 32-36 [facility] Comment on above: Order Comment: PLEAS E FAX LABS TO [id number] Performed By: #### L 100.0100, L300.3900 ####[facility] [address] [place], [address] MCV (RBC) [Entitic vol] 84.2 fL Normal 81-99 [facility] Comment on above: Order Comment: PLEAS E FAX LABS TO [id number] Performed By: #### L 100.0100, L300.3900 ####[facility] [address] [place], [address] Monocytes/100 WBC (Bld) 9.5 % Normal 0-10 [facility] Comment on above: Order Comment: PLEAS E FAX LABS TO [id number] Performed By: #### L 100.0100, L300.3900 ####[facility] [address] [place], [address] Neutrophils/100 WBC (Bld) 57.2 % Normal 47-70 [facility] Comment on above: Order Comment: PLEAS E FAX LABS TO [id number] Performed By: #### L 100.0100, L300.3900 ####[facility] [address] [place], [address] Nucleated RBC (Bld) [#/Vol] 0 10*3/uL Normal 0-5 [facility] Comment on above: Order Comment: PLEAS E FAX LABS TO [id number] Performed By: #### L 100.0100, L300.3900 ####[facility] [address] [place], [address] Platelet mean volume (Bld) [Entitic vol] 9.5 fL Normal 6.2-12.0 [facility] Comment on above: Order Comment: PLEAS E FAX LABS TO [id number] Performed By: #### L 100.0100, L300.3900 ####[facility] [address] [place], [address] Platelets (Bld) [#/Vol] 296 10*3/uL Normal 150-450 [facility] Comment on above: Order Comment: PLEAS E FAX LABS TO [id number] Performed By: #### L 100.0100, L300.3900 ####[facility] [address] [place], [address] RBC (Bld) [#/Vol] 4.68 10*6/uL Normal 4.2-5.4 [facility] Comment on above: Order Comment: PLEAS E FAX LABS TO [id number] Performed By: #### L 100.0100, L300.3900 ####[facility] [address] [place], [address] RDW SD 43.8 fl Normal 35.1-43.9 [facility] Comment on above: Order Comment: PLEAS E FAX LABS TO [id number] Performed By: #### L 100.0100, L300.3900 ####[facility] [address] [place], [address] WBC (Bld) [#/Vol] 8.8 10*3/uL Normal 4.4-11.0 [facility] Comment on above: Order Comment: GRUPO Murillo FAX LABS TO [id number] Performed By: #### L 100.0101, L300.5405 ####[facility] [address] [place], [address] Eosinophil percentageon 01-14 Eosinophils/100 WBC (Bld) 6.7 % High 0-5 [facility] Erythrocyte distribution wid th ratioon 01-31-2024 Erythrocyte distribution width (RBC) [Ratio] 14.3 % 11.6-14.6 [facility] Erythrocyte distribution wid th standard deviationon 01-31-2024 Erythrocyte distribution width (RBC) [Entitic vol] 43.8 fL 35.1-43.9 [facility] Hematocrit Auto (Bld) [Volum e fraction]on 01-31-2024 Hematocrit (Bld) [Volume fraction] 39.4 % 37-47 [facility] Hemoglobin measurementon Hemoglobin (Bld) [Mass/Vol] 13.5 g/dL 12.0-15.0 [facility] Immature granulocytes/100 WB C Auto (Bld)on 01-31-2024 Immature granulocytes/100 WBC (Bld) 0.300 % 0.0-0.9 [facility] Comment on above: IG% - Immature Granu locytes (promyelocytes, myelocytes and metamyelocytes) > 1% indicates that a LEFT SHIFT is Present. International normalized rat io (INR) calculationon 01-31-2024 INR Coag (Bld) [Relative time] 3.2 {INR} [facility] Lymphocytes Auto (Unsp spec) [#/Vol]on 01-31-2024 Lymphocytes (Bld) [#/Vol] 2.25 10*3/uL 0.83-4.51 [facility] Lymphocytes/100 WBC Auto (Un sp spec)on 01-31-2024 Lymphocytes/100 WBC (Bld) 25.7 % 19-41 [facility] MCV (mean corpuscular volume ) determinationon 01-31-2024 MCV (RBC) [Entitic vol] 84.2 fL 81-99 [facility] Mean corpuscular hemoglobin (MCH) determinationon 01-31-2024 MCH (RBC) [Entitic mass] 28.8 pg 27.0-32.0 [facility] Mean corpuscular hemoglobin concentration (MCHC) determinationon 01-31-2024 MCHC (RBC) [Mass/Vol] 34.3 g/dL 32-36 [facility] Mean platelet volume determi nationon 01-31-2024 Platelet mean volume (Bld) [Entitic vol] 9.5 fL 6.2-12.0 [facility] Monocyte percentageon 2023 Monocytes/100 WBC (Bld) 9.5 % 0-10 [facility] Neutrophil percentageon 01-14 Neutrophils/100 WBC (Bld) 57.2 % 47-70 [facility] Nucleated red blood cell per centageon 01-31-2024 Nucleated RBC/100 WBC (Bld) [Ratio] 0 % 0-5 [facility] Platelet counton 01-31-2024 Platelets (Bld) [#/Vol] 296 10*3/uL 150-450 [facility] Prothrombin Time w/INRon INR Coag (PPP) [Relative time] 3.2 {INR} Normal [facility] Comment on above: Order Comment: PLEAS E FAX LABS TO [id number] Performed By: #### L 100.0100, L300.3900 ####[facility] [address] [place], [place], [id number] PT Coag (PPP) [Time] 32.7 s High 11.7-14.9 [facility] Comment on above: Order Comment: PLEAS E FAX LABS TO [id number] Performed By: #### L 100.0100, L300.3900 ####[facility] [address] [place], [address] Prothrombin timeon PT Coag (PPP) [Time] 32.7 s High 11.7-14.9 [facility] RBC Auto (Bld) [#/Vol]on RBC (Bld) [#/Vol] 4.68 10*6/uL 4.2-5.4 [facility] White blood cell (WBC) count on 01-31-2024 WBC (Bld) [#/Vol] 8.8 10*3/uL 4.4-11.0 [facility] Urine cultureOrdered By: Santy Champion on 01-30-2024 Bacteria identified Cx Nom (U) Presumptive E. coli Abnormal [facility] Bacteria identified Cx Nom (U) Presumptive E. coli Abnormal [facility] Laboratory - Chemistry and C hemistry - challengeon 01-28-2024 Bilirubin Ql (U) Negative [facility] Glucose Ql (U) Negative [facility] Ketones Ql (U) Trace (5) [facility] pH (U) 5.0 [pH] [facility] Specific gravity (U) [Rel density] 1.025 [facility] Urobilinogen (U) [Mass/Vol] 1 mg/dL [facility] Laboratory - Hematology and Cell countson 01-28-2024 Hemoglobin Ql (U) Hemolyzed [facility] Laboratory - Specimen inform ationon 01-28-2024 Clarity (U) Cloudy [facility] Color (U) DARK YELLOW [facility] Laboratory - Urinalysison Nitrite Ql (U) Negative [facility] Protein Ql (U) Trace [facility] No Panel Informationon 01-27 Urine Leukocytes Positive [facility] Urine Non-Hemolyzed Blood Large [facility] Urgent Care Visit Reporton 1 03-30-2023 Urgent Care Visit Report [facility] [address], [address] [place] [address] OFFICE VISIT Date of Service: 01/28/24 MR#: [id number] Acct: [id number] Name: JOÃO MUJICA Rep #: [id number] : 1965 Provider: MARCELA Champion Age/Sex: 58/F Location: [facility] Status: Signed Intake Vital Signs 11/30/23 17:18 [...] has been going on for 3 days [facility] Medical History Thoracic aortic aneurysm [...] history: Claudia Ramirez Daily 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 Normal [facility] Prothrombin Time w/INRon INR Coag (PPP) [Relative time] 2.6 {INR} Normal [facility] Comment on above: Performed By: #### L 300.3900 ####[facility] [address] [place], [place], [address] PT Coag (PPP) [Time] 27.7 s High 11.7-14.9 [facility] Comment on above: Performed By: #### L 300.3900 ####[facility] [address] [place], [place], [address] CNPNon 01-16-2024 CNPN Telephone (AGGENS4) JOÃO MUJICA ([id number]) 1965 F CHT Date Time Provider Department 01/16/24 CHERRY HERNANDEZ AGGENS4 During your visit today, we [...] with pt. Mikey Carrion, RN, BSN Bariatric Zinc Chloride Operator Allergies As of Date: 01/16/2024 Noted Allergy [...] Date Reviewed: 10/28/2023 Reviewed by: Frederick Colvin APRN.CAREER PLACEMENT SPECIALIST - Fully Assessed Reason for Visit: MDT [...] Status:Closed by MIKEY CARRION on 01/16/24 Normal [facility] International normalized rat io (INR) calculationon 01-09-2024 INR Coag (Bld) [Relative time] 2.2 {INR} [facility] Prothrombin Time w/INRon INR Coag (PPP) [Relative time] 2.2 {INR} Normal [facility] Comment on above: Order Comment: PLEAS E FAX [id number] Performed By: #### L 300.3900, L100.0500 #### [facility] [address] [place], [address] PT Coag (PPP) [Time] 24.6 s High 11.7-14.9 [facility] Comment on above: Order Comment: PLEAS E FAX [id number] Performed By: #### L 300.3900, L100.0500 #### [facility] [address] [place], [address] Prothrombin timeon PT Coag (PPP) [Time] 24.6 s High 11.7-14.9 [facility] CBC-Complete Blood Cnt No Di ffon 12-26-2023 Erythrocyte distribution width (RBC) [Ratio] 14.4 % Normal 11.6-14.6 [facility] Comment on above: Performed By: #### L 500.4100, L500.4050, L100.0100, L506.1000, L501.9520 #### [facility] [address] [place], [address] Hematocrit (Bld) [Volume fraction] 37.0 % Normal 37-47 [facility] Comment on above: Performed By: #### L 500.4100, L500.4050, L100.0100, L506.1000, L501.9520 #### [facility] [address] [place], [address] Hemoglobin (Bld) [Mass/Vol] 12.6 g/dL Normal 12.0-15.0 [facility] Comment on above: Performed By: #### L 500.4100, L500.4050, L100.0100, L506.1000, L501.9520 #### [facility] [address] [place], [address] MCH (RBC) [Entitic mass] 28.9 pg Normal 27.0-32.0 [facility] Comment on above: Performed By: #### L 500.4100, L500.4050, L100.0100, L506.1000, L501.9520 #### [facility] [address] [place], [address] MCHC (RBC) [Mass/Vol] 34.1 g/dL Normal 32-36 [facility] Comment on above: Performed By: #### L 500.4100, L500.4050, L100.0100, L506.1000, L501.9520 #### [facility] [address] [place], [address] MCV (RBC) [Entitic vol] 84.9 fL Normal 81-99 [facility] Comment on above: Performed By: #### L 500.4100, L500.4050, L100.0100, L506.1000, L501.9520 #### [facility] [address] [place], [address] Platelet mean volume (Bld) [Entitic vol] 9.9 fL Normal 6.2-12.0 [facility] Comment on above: Performed By: #### L 500.4100, L500.4050, L100.0100, L506.1000, L501.9520 #### [facility] [address] [place], [address] Platelets (Bld) [#/Vol] 276 10*3/uL Normal 150-450 [facility] Comment on above: Performed By: #### L 500.4100, L500.4050, L100.0100, L506.1000, L501.9520 #### [facility] [address] [place], [address] RBC (Bld) [#/Vol] 4.36 10*6/uL Normal 4.2-5.4 [facility] Comment on above: Performed By: #### L 500.4100, L500.4050, L100.0100, L506.1000, L501.9520 #### [facility] [address] [place], [address] RDW SD 44.4 fl High 35.1-43.9 [facility] Comment on above: Performed By: #### L 500.4100, L500.4050, L100.0100, L506.1000, L501.9520 #### [facility] [address] [place], [address] WBC (Bld) [#/Vol] 7.3 10*3/uL Normal 4.4-11.0 [facility] Comment on above: Performed By: #### L 500.4100, L500.4050, L100.0100, L506.1000, L501.9520 #### [facility] [address] [place], [address] Erythrocyte distribution wid th ratioon 12-26-2023 Erythrocyte distribution width (RBC) [Ratio] 14.4 % 11.6-14.6 [facility] Erythrocyte distribution wid th standard deviationon 12-26-2023 Erythrocyte distribution width (RBC) [Entitic vol] 44.4 fL High 35.1-43.9 [facility] Hematocrit Auto (Bld) [Volum e fraction]on 12-26-2023 Hematocrit (Bld) [Volume fraction] 37.0 % 37-47 [facility] Hemoglobin measurementon Hemoglobin (Bld) [Mass/Vol] 12.6 g/dL 12.0-15.0 [facility] MCV (mean corpuscular volume ) determinationon 12-26-2023 MCV (RBC) [Entitic vol] 84.9 fL 81-99 [facility] Mean corpuscular hemoglobin (MCH) determinationon 12-26-2023 MCH (RBC) [Entitic mass] 28.9 pg 27.0-32.0 [facility] Mean corpuscular hemoglobin concentration (MCHC) determinationon 12-26-2023 MCHC (RBC) [Mass/Vol] 34.1 g/dL 32-36 [facility] Mean platelet volume determi nationon 12-26-2023 Platelet mean volume (Bld) [Entitic vol] 9.9 fL 6.2-12.0 [facility] Platelet counton 12-26-2023 Platelets (Bld) [#/Vol] 276 10*3/uL 150-450 [facility] Prothrombin Time w/INRon INR Coag (PPP) [Relative time] 2.2 {INR} Normal [facility] Comment on above: Performed By: #### L 500.4100, L500.4050, L100.0100, L506.1000, L501.9520 #### [facility] [address] [place], [address] PT Coag (PPP) [Time] 24.2 s High 11.7-14.9 [facility] Comment on above: Performed By: #### L 500.4100, L500.4050, L100.0100, L506.1000, L501.9520 #### [facility] [address] [place], [address] RBC Auto (Bld) [#/Vol]on RBC (Bld) [#/Vol] 4.36 10*6/uL 4.2-5.4 [facility] White blood cell (WBC) count on 12-26-2023 WBC (Bld) [#/Vol] 7.3 10*3/uL 4.4-11.0 [facility] CBC-Complete Blood Cnt No Di ffon 12-02-2023 Erythrocyte distribution width (RBC) [Ratio] 14.4 % Normal 11.6-14.6 [facility] Comment on above: Order Comment: FAX A TTN RU Performed By: #### L 300.3900, L100.0500 #### [facility] [address] [place], [address] Hematocrit (Bld) [Volume fraction] 37.4 % Normal 37-47 [facility] Comment on above: Order Comment: FAX A TTN RU Performed By: #### L 300.3900, L100.0500 #### [facility] [address] [place], [address] Hemoglobin (Bld) [Mass/Vol] 12.5 g/dL Normal 12.0-15.0 [facility] Comment on above: Order Comment: FAX A TTN RU Performed By: #### L 300.3900, L100.0500 #### [facility] [address] [place], [address] MCH (RBC) [Entitic mass] 28.6 pg Normal 27.0-32.0 [facility] Comment on above: Order Comment: FAX A TTN RU Performed By: #### L 300.3900, L100.0500 #### [facility] [address] [place], [address] MCHC (RBC) [Mass/Vol] 33.4 g/dL Normal 32-36 [facility] Comment on above: Order Comment: FAX A TTN RU Performed By: #### L 300.3900, L100.0500 #### [facility] [address] [place], [address] MCV (RBC) [Entitic vol] 85.6 fL Normal 81-99 [facility] Comment on above: Order Comment: FAX A TTN RU Performed By: #### L 300.3900, L100.0500 #### [facility] [address] [place], [address] Platelet mean volume (Bld) [Entitic vol] 9.8 fL Normal 6.2-12.0 [facility] Comment on above: Order Comment: FAX A TTN RU Performed By: #### L 300.3900, L100.0500 #### [facility] [address] [place], [address] Platelets (Bld) [#/Vol] 283 10*3/uL Normal 150-450 [facility] Comment on above: Order Comment: FAX A TTN RU Performed By: #### L 300.3900, L100.0500 #### [facility] [address] [place], [address] RBC (Bld) [#/Vol] 4.37 10*6/uL Normal 4.2-5.4 [facility] Comment on above: Order Comment: FAX A TTN RU Performed By: #### L 300.3900, L100.0500 #### [facility] [address] [place], [address] RDW SD 45.1 fl High 35.1-43.9 [facility] Comment on above: Order Comment: FAX A TTN RU Performed By: #### L 300.3900, L100.0500 #### [facility] [address] [place], [address] WBC (Bld) [#/Vol] 12.5 10*3/uL High 4.4-11.0 [facility] Comment on above: Order Comment: FAX A TTN RU Performed By: #### L 300.3900, L100.0500 #### [facility] [address] [place], [address] Prothrombin Time w/INRon INR Coag (PPP) [Relative time] 2.3 {INR} Normal [facility] Comment on above: Order Comment: FAX A TTN RU Performed By: #### L 300.3900, L100.0500 #### [facility] [address] [place], [address] PT Coag (PPP) [Time] 24.9 s High 11.7-14.9 [facility] Comment on above: Order Comment: FAX A TTN RU Performed By: #### L 300.3900, L100.0500 #### [facility] [address] [place], [address] CBC W/Diff, Automatedon 10-0 Absolute Lymph 1.74 X10 3/uL Normal 0.83-4.51 [facility] Comment on above: Performed By: #### L 500.4100, L500.4050, L100.0100, L506.1000, L501.9520 #### [facility] [address] [place], [address] Absolute Neut 12.6 X10 3/uL High 2.0-7.7 [facility] Comment on above: Performed By: #### L 500.4100, L500.4050, L100.0100, L506.1000, L501.9520 #### [facility] [address] [place], [address] Basophils/100 WBC (Bld) 0.3 % Normal 0-1 [facility] Comment on above: Performed By: #### L 500.4100, L500.4050, L100.0100, L506.1000, L501.9520 #### [facility] [address] [place], [address] Eosinophils/100 WBC (Bld) 1.5 % Normal 0-5 [facility] Comment on above: Performed By: #### L 500.4100, L500.4050, L100.0100, L506.1000, L501.9520 #### [facility] [address] [place], [address] Erythrocyte distribution width (RBC) [Ratio] 14.8 % High 11.6-14.6 [facility] Comment on above: Performed By: #### L 500.4100, L500.4050, L100.0100, L506.1000, L501.9520 #### [facility] [address] [place], [address] Hematocrit (Bld) [Volume fraction] 36.7 % Low 37-47 [facility] Comment on above: Performed By: #### L 500.4100, L500.4050, L100.0100, L506.1000, L501.9520 #### [facility] [address] [place], [address] Hemoglobin (Bld) [Mass/Vol] 12.1 g/dL Normal 12.0-15.0 [facility] Comment on above: Performed By: #### L 500.4100, L500.4050, L100.0100, L506.1000, L501.9520 #### [facility] [address] [place], [address] IG% 0.400 Normal 0.0-0.9 [facility] Comment on above: Result Comment: IG% - Immature Granulocytes (promyelocytes, myelocytes and metamyelocytes) > 1% indicates that a LEFT SHIFT is Present. Performed By: #### L 500.4100, L500.4050, L100.0100, L506.1000, L501.9520 #### [facility] [address] [place], [address] Lymphocytes/100 WBC (Bld) 11.2 % Low 19-41 [facility] Comment on above: Performed By: #### L 500.4100, L500.4050, L100.0100, L506.1000, L501.9520 #### [facility] [address] [place], [address] MCH (RBC) [Entitic mass] 28.1 pg Normal 27.0-32.0 [facility] Comment on above: Performed By: #### L 500.4100, L500.4050, L100.0100, L506.1000, L501.9520 #### [facility] [address] [place], [address] MCHC (RBC) [Mass/Vol] 33.0 g/dL Normal 32-36 [facility] Comment on above: Performed By: #### L 500.4100, L500.4050, L100.0100, L506.1000, L501.9520 #### [facility] [address] [place], [address] MCV (RBC) [Entitic vol] 85.2 fL Normal 81-99 [facility] Comment on above: Performed By: #### L 500.4100, L500.4050, L100.0100, L506.1000, L501.9520 #### [facility] [address] [place], [address] Monocytes/100 WBC (Bld) 5.7 % Normal 0-10 [facility] Comment on above: Performed By: #### L 500.4100, L500.4050, L100.0100, L506.1000, L501.9520 #### [facility] [address] [place], [address] Neutrophils/100 WBC (Bld) 80.9 % High 47-70 [facility] Comment on above: Performed By: #### L 500.4100, L500.4050, L100.0100, L506.1000, L501.9520 #### [facility] [address] [place], [address] Nucleated RBC (Bld) [#/Vol] 0 10*3/uL Normal 0-5 [facility] Comment on above: Performed By: #### L 500.4100, L500.4050, L100.0100, L506.1000, L501.9520 #### [facility] [address] [place], [address] Platelet mean volume (Bld) [Entitic vol] 9.8 fL Normal 6.2-12.0 [facility] Comment on above: Performed By: #### L 500.4100, L500.4050, L100.0100, L506.1000, L501.9520 #### [facility] [address] [place], [address] Platelets (Bld) [#/Vol] 278 10*3/uL Normal 150-450 [facility] Comment on above: Performed By: #### L 500.4100, L500.4050, L100.0100, L506.1000, L501.9520 #### [facility] [address] [place], [address] RBC (Bld) [#/Vol] 4.31 10*6/uL Normal 4.2-5.4 [facility] Comment on above: Performed By: #### L 500.4100, L500.4050, L100.0100, L506.1000, L501.9520 #### [facility] [address] [place], [address] RDW SD 46.4 fl High 35.1-43.9 [facility] Comment on above: Performed By: #### L 500.4100, L500.4050, L100.0100, L506.1000, L501.9520 #### [facility] [address] [place], [address] WBC (Bld) [#/Vol] 15.5 10*3/uL High 4.4-11.0 [facility] Comment on above: Performed By: #### L 500.4100, L500.4050, L100.0100, L506.1000, L501.9520 #### [facility] [address] [place], [address] Emergency Department Summary on 11-23-2023 Emergency Department Summary [facility] Medical Records Department [address] [place] [address] Emergency Department Summary 11/23/23 MR#: [id number] Acct: [id number] Name: JOÃO MUJICA MELONY Rep #: [id number] : 1965 58 From: Tylor Velasquez MD PCP: 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 Normal [facility] Prothrombin Time w/INRon INR Coag (PPP) [Relative time] 2.5 {INR} Normal [facility] Comment on above: Performed By: #### L 500.4100, L500.4050, L100.0100, L506.1000, L501.9520 #### [facility] [address] [place], [address] PT Coag (PPP) [Time] 27.0 s High 11.7-14.9 [facility] Comment on above: Performed By: #### L 500.4100, L500.4050, L100.0100, L506.1000, L501.9520 #### [facility] [address] [place], [address] Liver Profileon 11-16-2023 Albumin [Mass/Vol] 3.7 g/dL Normal 3.2-5.0 [facility] Comment on above: Performed By: #### L 300.3900, L100.0500 #### [facility] [address] [place], [address] ALK P 148 U/L High 45-117 [facility] Comment on above: Performed By: #### L 300.3900, L100.0500 #### [facility] [address] [place], [address] ALT [Catalytic activity/Vol] 30 U/L Normal 13-56 [facility] Comment on above: Performed By: #### L 300.3900, L100.0500 #### [facility] [address] [place], [address] AST [Catalytic activity/Vol] 22 U/L Normal 15-37 [facility] Comment on above: Performed By: #### L 300.3900, L100.0500 #### [facility] [address] [place], [address] Bilirubin [Mass/Vol] 0.50 mg/dL Normal 0.20-1.00 [facility] Comment on above: Result Comment: For patients on eltrombopag therapy, use of Dimension [place] TBIL is not recommended. Performed By: #### L 300.3900, L100.0500 #### [facility] [address] [place], [address] Bilirubin.direct [Mass/Vol] 0.13 mg/dL Normal 0.00-0.30 [facility] Comment on above: Performed By: #### L 300.3900, L100.0500 #### [facility] [address] [place], [address] Globulin (S) [Mass/Vol] 3.7 g/dL Normal 2.2-4.2 [facility] Comment on above: Performed By: #### L 300.3900, L100.0500 #### [facility] [address] [place], [place], [address] T PROT 7.4 g/dL Normal 6.4-8.2 [facility] Comment on above: Performed By: #### L 300.3900, L100.0500 #### [facility] [address] [place], [address] Prothrombin Time w/INRon INR Coag (PPP) [Relative time] 2.3 {INR} Normal [facility] Comment on above: Performed By: #### L 300.3900, L100.0500 #### [facility] [address] [place], [address] PT Coag (PPP) [Time] 24.7 s High 11.7-14.9 [facility] Comment on above: Performed By: #### L 300.3900, L100.0500 #### [facility] [address] [place], [address] CNPNon 11-02-2023 CNPN Telephone (AGGENS4) JOÃO MUJICA ([id number]) 1965 F T Date Time Provider Department 11/02/23 FREDERICK COLVIN AGGENS4 During your visit today, we recorded the following information about you: Lyric Humphries 11/02/2023 11:34 AM Signed LVM for pt to call back and schedule with SWAGING MACHINE OPERATOR Around 11/25/23 [facility]-Mlm[facility] GERD-SEE TE 07/31 Allergies As [...] Date Reviewed: 10/28/2023 Reviewed by: Frederick Colvin APRN.CAREER PLACEMENT SPECIALIST - Fully Assessed Reason for Visit: Appointment [...] valve replacement [Z95.2] 05/13/2023 Encounter Status:Closed by LYRIC HUMPHRIES on 11/02/23 Normal [facility] CBC-Complete Blood Cnt No Di ffon 10-25-2023 Erythrocyte distribution width (RBC) [Ratio] 15.2 % High 11.6-14.6 [facility] Comment on above: Order Comment: FAX 2 [id number] RESULTS TO [id number] [id number] Performed By: #### L 100.0500, L300.3900 ####[facility] [address] [place], [address] Hematocrit (Bld) [Volume fraction] 35.4 % Low 37-47 [facility] Comment on above: Order Comment: FAX 2 [id number] RESULTS TO [id number] EXT 86404 Performed By: #### L 100.0500, L300.3900 ####[facility] [address] [place], [address] Hemoglobin (Bld) [Mass/Vol] 11.5 g/dL Low 12.0-15.0 [facility] Comment on above: Order Comment: FAX 2 [id number] RESULTS TO [id number] EXT 76362 Performed By: #### L 100.0500, L300.3900 ####[facility] [address] [place], [address] MCH (RBC) [Entitic mass] 27.2 pg Normal 27.0-32.0 [facility] Comment on above: Order Comment: FAX 2 [id number] RESULTS TO [id number] EXT 77887 Performed By: #### L 100.0500, L300.3900 ####[facility] [address] [place], [address] MCHC (RBC) [Mass/Vol] 32.5 g/dL Normal 32-36 [facility] Comment on above: Order Comment: FAX 2 [id number] RESULTS TO [id number] EXT 68727 Performed By: #### L 100.0500, L300.3900 ####[facility] [address] [place], [address] MCV (RBC) [Entitic vol] 83.7 fL Normal 81-99 [facility] Comment on above: Order Comment: FAX 2 [id number] RESULTS TO [id number] EXT 91629 Performed By: #### L 100.0500, L300.3900 ####[facility] [address] [place], [address] Platelet mean volume (Bld) [Entitic vol] 10.0 fL Normal 6.2-12.0 [facility] Comment on above: Order Comment: FAX 2 [id number] RESULTS TO [id number] EXT 96008 Performed By: #### L 100.0500, L300.3900 ####[facility] [address] [place], [address] Platelets (Bld) [#/Vol] 296 10*3/uL Normal 150-450 [facility] Comment on above: Order Comment: FAX 2 [id number] RESULTS TO [id number] EXT 04102 Performed By: #### L 100.0500, L300.3900 ####[facility] [address] [place], [address] RBC (Bld) [#/Vol] 4.23 10*6/uL Normal 4.2-5.4 [facility] Comment on above: Order Comment: FAX 2 [id number] RESULTS TO [id number] EXT 48979 Performed By: #### L 100.0500, L300.3900 ####[facility] [address] [place], [address] RDW SD 45.9 fl High 35.1-43.9 [facility] Comment on above: Order Comment: FAX 2 [id number] RESULTS TO [id number] EXT 80219 Performed By: #### L 100.0500, L300.3900 ####[facility] [address] [place], [address] WBC (Bld) [#/Vol] 8.6 10*3/uL Normal 4.4-11.0 [facility] Comment on above: Order Comment: FAX 2 [id number] RESULTS TO [id number] EXT 03891 Performed By: #### L 100.0500, L300.3900 ####[facility] [address] [place], [address] Prothrombin Time w/INRon INR Coag (PPP) [Relative time] 2.3 {INR} Normal [facility] Comment on above: Performed By: #### L 100.0500, L300.3900 ####[facility] [address] [place], [address] PT Coag (PPP) [Time] 25.5 s High 11.7-14.9 [facility] Comment on above: Performed By: #### L 100.0500, L300.3900 ####[facility] [address] [place], [address] 25(OH)D3 SerPl-mCncon 2023 25-hydroxyvitamin D3 [Mass/Vol] 31.1 ng/mL Normal 31.0-80.0 [facility] Comment on above: Order Comment: Speci men Type: BLOOD SPECIMEN Ordering Facility: [facility] Address: [address] [place] [address] Result Comment: Clas sification of 25 [place] Vitamin D status: Deficiency/Insufficiency: < or = 30 ng/ml. Sufficiency/Optimal Levels: 31-80 ng/mL Toxicity: > 100 ng/mL. Test performed by chemiluminescent immunoassay. Performed By: #### B 1WB #### [facility] CLIA [id number] [address] [place] [address] [place] CBC panel Auto (Bld)on 10-13 Erythrocyte distribution width (RBC) [Ratio] 14.7 % Normal 11.5-15.0 [facility] Comment on above: Order Comment: Speci men Type: BLOOD SPECIMEN Ordering Facility: [facility] Address: [address] [place] [address] Performed By: #### B 1WB #### [facility] CLIA [id number] [address] [place] [address] [place] Hematocrit (Bld) [Volume fraction] 33.4 % Low 36.0-46.0 [facility] Comment on above: Order Comment: Speci damián Type: BLOOD SPECIMEN Ordering Facility: [facility] Address: [address] [place] [address] Performed By: #### B 1WB #### [facility] CLIA [id number] [address] [place] [address] [place] Hemoglobin (Bld) [Mass/Vol] 10.9 g/dL Low 11.5-15.5 [facility] Comment on above: Order Comment: Speci men Type: BLOOD SPECIMEN Ordering Facility: [facility] Address: [address] [place] [address] Performed By: #### B 1WB #### [facility] CLIA [id number] [address] [place] [address] [place] MCH (RBC) [Entitic mass] 27.3 pg Normal 26.0-34.0 [facility] Comment on above: Order Comment: Speci men Type: BLOOD SPECIMEN Ordering Facility: [facility] Address: [address] [place] [address] Performed By: #### B 1WB #### [facility] CLIA [id number] [address] [place] [address] [place] MCHC (RBC) [Mass/Vol] 32.6 g/dL Normal 30.5-36.0 [facility] Comment on above: Order Comment: Speci men Type: BLOOD SPECIMEN Ordering Facility: [facility] Address: [address] [place] [address] Performed By: #### B 1WB #### [facility] CLIA [id number] [address] [place] [address] [place] MCV (RBC) [Entitic vol] 83.5 fL Normal 80.0-100.0 [facility] Comment on above: Order Comment: Speci men Type: BLOOD SPECIMEN Ordering Facility: [facility] Address: [address] [place] [address] Performed By: #### B 1WB #### [facility] CLIA [id number] [address] [place] [address] [place] Nucleated RBC (Bld) [#/Vol] 10*3/uL Normal <0.01 [facility] Comment on above: Order Comment: Speci men Type: BLOOD SPECIMEN Ordering Facility: [facility] Address: [address] [place] [address] Performed By: #### B 1WB #### [facility] CLIA [id number] [address] [place] [address] [place] Platelet mean volume (Bld) [Entitic vol] 9.7 fL Normal 9.0-12.7 [facility] Comment on above: Order Comment: Speci men Type: BLOOD SPECIMEN Ordering Facility: [facility] Address: [address] [place] [address] Performed By: #### B 1WB #### [facility] CLIA [id number] [address] [place] [address] [place] Platelets (Bld) [#/Vol] 264 10*3/uL Normal 150-400 [facility] Comment on above: Order Comment: Speci men Type: BLOOD SPECIMEN Ordering Facility: [facility] Address: [address] [place] [address] Performed By: #### B 1WB #### [facility] CLIA [id number] [address] [place] [address] [place] RBC (Bld) [#/Vol] 4.00 10*6/uL Normal 3.90-5.20 [facility] Comment on above: Order Comment: Speci men Type: BLOOD SPECIMEN Ordering Facility: [facility] Address: [address] [place] [address] Performed By: #### B 1WB #### [facility] CLIA [id number] [address] [place] [address] [place] WBC (Bld) [#/Vol] 6.02 10*3/uL Normal 3.70-11.00 [facility] Comment on above: Order Comment: Speci men Type: BLOOD SPECIMEN Ordering Facility: [facility] Address: [address] [place] [address] Performed By: #### B 1WB #### [facility] CLIA [id number] [address] [place] [address] [place] Comprehensive metabolic 2000 panelon 10-14-2023 Albumin [Mass/Vol] 4.2 g/dL Normal 3.9-4.9 [facility] Comment on above: Order Comment: Speci men Type: BLOOD SPECIMEN Ordering Facility: [facility] Address: [address] [place] [address] Performed By: #### 2 4323-8 #### [facility] CLIA [id number] [address] [place] [address] [place] ALP [Catalytic activity/Vol] 147 U/L High 34-123 [facility] Comment on above: Order Comment: Speci men Type: BLOOD SPECIMEN Ordering Facility: [facility] Address: [address] [place] [address] Performed By: #### 2 4323-8 #### [facility] CLIA [id number] [address] [place] [address] [place] ALT [Catalytic activity/Vol] 21 U/L Normal 7-38 [facility] Comment on above: Order Comment: Speci men Type: BLOOD SPECIMEN Ordering Facility: [facility] Address: [address] [place] [address] Performed By: #### 2 4323-8 #### [facility] CLIA [id number] [address] [place] [address] [place] Anion gap [Moles/Vol] 11 mmol/L Normal 8-15 [facility] Comment on above: Order Comment: Speci men Type: BLOOD SPECIMEN Ordering Facility: [facility] Address: [address] [place] [address] Performed By: #### 2 4323-8 #### [facility] CLIA [id number] [address] [place] [address] [place] AST [Catalytic activity/Vol] 24 U/L Normal 13-35 [facility] Comment on above: Order Comment: Speci men Type: BLOOD SPECIMEN Ordering Facility: [facility] Address: [address] [place] [address] Performed By: #### 2 4323-8 #### [facility] CLIA [id number] [address] [place] [address] [place] Bilirubin [Mass/Vol] 0.4 mg/dL Normal 0.2-1.3 [facility] Comment on above: Order Comment: Speci men Type: BLOOD SPECIMEN Ordering Facility: [facility] Address: [address] [place] [address] Performed By: #### 2 4323-8 #### [facility] CLIA [id number] [address] [place] [address] [place] Calcium [Mass/Vol] 9.7 mg/dL Normal 8.5-10.2 [facility] Comment on above: Order Comment: Speci men Type: BLOOD SPECIMEN Ordering Facility: [facility] Address: [address] [place] [address] Performed By: #### 2 4323-8 #### [facility] CLIA [id number] [address] [place] [address] [place] Chloride [Moles/Vol] 106 mmol/L Normal 98-107 [facility] Comment on above: Order Comment: Speci men Type: BLOOD SPECIMEN Ordering Facility: [facility] Address: [address] [place] [address] Performed By: #### 2 4323-8 #### [facility] CLIA [id number] [address] [place] [address] [place] CO2 [Moles/Vol] 23 mmol/L Normal 22-30 [facility] Comment on above: Order Comment: Speci men Type: BLOOD SPECIMEN Ordering Facility: [facility] Address: [address] [place] [address] Performed By: #### 2 4323-8 #### [facility] CLIA [id number] [address] [place] [address] [place] Creatinine [Mass/Vol] 0.82 mg/dL Normal 0.58-0.96 [facility] Comment on above: Order Comment: Speci men Type: BLOOD SPECIMEN Ordering Facility: [facility] Address[facility] [address] [facility] [place] [address] Performed By: #### 2 4323-8 #### [facility] CLIA [id number] [address] [place] [address] [place] Creatinine and Glomerular filtration rate.predicted panel (S/P/Bld) 83 mL/min/1.73m??? Normal >=60 [facility] Comment on above: Order Comment: Dominic steel Type: BLOOD SPECIMEN Ordering Facility: [facility] Address: [address] [place] [address] Result Comment: Susie mated Glomerular Filtration Rate [...] Performed By: #### 2 4323-8 #### [id number] [address] [place] [address] [place] Glucose [Mass/Vol] 92 mg/dL Normal 74-99 [facility] Comment on above: Order Comment: Dominic steel Type: BLOOD SPECIMEN Ordering Facility: [facility] Address: [address] [place] [address] Result Comment: The [place] Diabetes Association (ADA) provides guidance for cutoff [...] Standards of Medical Care in Diabetes 2016, [place] Diabetes Association. Diabetes Care. 2016.39(Suppl 1). Performed By: #### 2 4323-8 #### [facility] [id number] [address] [place] [address] [place] Potassium [Moles/Vol] 3.8 mmol/L Normal 3.7-5.1 [facility] Comment on above: Order Comment: Speci men Type: BLOOD SPECIMEN Ordering Facility: [facility] Address: [address] [place] [address] Performed By: #### 2 4323-8 #### [facility] CLIA [id number] [address] [place] [address] [place] Protein [Mass/Vol] 6.8 g/dL Normal 6.3-8.0 [facility] Comment on above: Order Comment: Speci men Type: BLOOD SPECIMEN Ordering Facility: [facility] Address: [address] [place] [address] Performed By: #### 2 4323-8 #### [facility] CLIA [id number] [address] [place] [address] [place] Sodium [Moles/Vol] 140 mmol/L Normal 136-144 [facility] Comment on above: Order Comment: Speci men Type: BLOOD SPECIMEN Ordering Facility: [facility] Address: [address] [place] [address] Performed By: #### 2 4323-8 #### [facility] CLIA [id number] [address] [place] [address] [place] Urea nitrogen [Mass/Vol] 21 mg/dL Normal 7-21 [facility] Comment on above: Order Comment: Speci men Type: BLOOD SPECIMEN Ordering Facility: [facility] Address: [address] [place] [address] Performed By: #### 2 4323-8 #### [facility] CLIA [id number] [address] [place] [address] [place] Ferritin SerPl-mCncon 2023 Ferritin [Mass/Vol] 22.9 ng/mL Normal 14.7-205.1 [facility] Comment on above: Order Comment: Speci men Type: BLOOD SPECIMEN Ordering Facility: [facility] Address: [address] [place] [address] Performed By: #### B 1WB #### [facility] CLIA [id number] [address] [place] [address] [place] Folate SerPl-mCncon 10-14-19 Folate [Mass/Vol] 11.6 ng/mL Normal >4.7 [facility] Comment on above: Order Comment: Dominic steel Type: BLOOD SPECIMEN Ordering Facility: [facility] Address: [address] [place] [address] Performed By: #### 2 132-9, 2284-8, 2731-8 #### [facility] CLIA [id number] [address] [place] [address] [place] HbA1c (Bld)on 10-14-2023 Average glucose Estimated from glycated hemoglobin (Bld) [Mass/Vol] 111 mg/dL Normal [facility] Comment on above: Order Comment: Dominic [facility] Type: BLOOD SPECIMEN Ordering Facility: [facility] Address: [address] [place] [address] Result Comment: eAG: (Estimated average glucose) is a calculated value from HgbA1c and is junior sales representative of the average blood glucose level in the last 2-3 month period. Performed By: #### B 1WB #### [facility] CLIA [id number] [address] [place] [address] OF [facility] HbA1c (Bld) [Mass fraction] 5.5 % Normal 4.3-5.6 [facility] Comment on above: Order Comment: Dominic steel Type: BLOOD SPECIMEN Ordering Facility: [facility] Address: [address] [place] [address] Result Comment: Amer [place] Diabetes Association guidelines indicate that patients with HgbA1c in the range 5.7-6.4% are at increased risk for development of diabetes, and intervention by lifestyle modification may be beneficial. HgbA1c greater or equal to 6.5% is considered diagnostic of diabetes. Performed By: #### B 1WB #### [facility] CLIA [id number] [address] [place] [address] [place] Iron and Iron binding capaci ty panelon 10-14-2023 Iron [Mass/Vol] 40 ug/dL Low 41-186 [facility] Comment on above: Order Comment: Speci men Type: BLOOD SPECIMEN Ordering Facility: [facility] Address: [address] [place] [address] Performed By: #### 3 016-3, 50809-3, 2275-05 #### [facility] CLIA [id number] [address] [place] [address] [place] #### 55350-5 #### [facility] CLIA [id number] [address] [place] [address] [place] [facility] CLIA [id number] [address] [place] [address] [place] Iron binding capacity [Mass/Vol] 348 ug/dL Normal 232-386 [facility] Comment on above: Order Comment: Speci men Type: BLOOD SPECIMEN Ordering Facility: [facility] Address: [address] [place] [address] Performed By: #### 3 016-3, 52346-8, 2275-05 #### [facility] CLIA [id number] [address] [place] [address] [place] #### 83194-1 #### [facility] CLIA [id number] [address] [place], [place] [address] [place] [facility] CLIA [id number] [address] [place] [address] [place] Iron/TIBC [Molar ratio] 11.5 % Low 15.0-57.0 [facility] Comment on above: Order Comment: Speci men Type: BLOOD SPECIMEN Ordering Facility: [facility] Address: [address] [place] [address] Performed By: #### 3 016-3, 20929-9, 2275-05 #### [facility] CLIA [id number] [address] [place] [address] [place] #### 89137-2 #### [facility] CLIA [id number] [address] [place] [address] [place] [facility] CLIA [id number] [address] [place] [address] [place] Lipid 1996 panelon 4 Cholesterol [Mass/Vol] 182 mg/dL Normal <200 [facility] Comment on above: Order Comment: Speci men Type: BLOOD SPECIMEN Ordering Facility: [facility] Address: [address] [place] [address] Result Comment: <200 mg/dL, Desirable 200-239 mg/dL, Borderline high >239 mg/dL, High Performed By: #### 3 016-3, 10183-1, 2275-05 #### [facility] CLIA [id number] [address] [place] [address] [place] #### 00739-9 #### [facility] CLIA [id number] [address] [place] [address] [place] [facility] CLIA [id number] [address] [place] [address] [place] Cholesterol in HDL [Mass/Vol] 35 mg/dL Low >39 [facility] Comment on above: Order Comment: Speci men Type: BLOOD SPECIMEN Ordering Facility: [facility] Address: [address] [place] [address] Result Comment: 40-5 9 mg/dL, Acceptable >59 mg/dL, High: Negative risk factor for coronary heart disease <40 mg/dL, Low: Positive risk factor for coronary heart disease Performed By: #### 3 016-3, 82752-2, 2275-05 #### [facility] CLIA [id number] [address] [place] [address] [place] #### 50804-0 #### [facility] CLIA [id number] [address] [place] [address] [place] [facility] CLIA [id number] [address] [place] [address] [place] Cholesterol in LDL [Mass/Vol] 96 mg/dL Normal <100 [facility] Comment on above: Order Comment: Speci men Type: BLOOD SPECIMEN Ordering Facility: [facility] Address: [address] [place] [address] Result Comment: <100 mg/dL, Optimal 100-129 mg/dL, Near optimal/above optimal 130-159 mg/dL, Borderline high 160-189 mg/dL, High >189 mg/dL, Very high Secondary prevention optimal LDL Cholesterol levels are recommended to be < 70 mg/dL Performed By: #### 3 016-3, 07131-7, 2276-4 #### [facility] CLIA [id number] [address] [place] [address] [place] #### 07625-0 #### [facility] CLIA [id number] [address] [place] [address] [place] [facility] [id number] [address] [place] [address] [place] Cholesterol in LDL/Cholesterol in HDL [Mass ratio] 2.74 {ratio} High <2.54 [facility] Comment on above: Order Comment: Candelariai men Type: BLOOD SPECIMEN Ordering Facility: [facility] Address: [address] [place] [address] Result Comment: Aura silva: 1. National Cholesterol Education Program ATP III Guideline At-A-Glance Quick Desk Reference: National Heart, Lung, and Blood [place]. National Institutes of Health. 2001: NIH Publication No. 01-3305. 2. An International Atherosclerosis Society position paper: global recommendations for the management of dyslipidemia: executive summary, Atherosclerosis. 2014: 232(2):410-413. Performed By: #### 3 016-3, 36698-9, 2275-05 #### [facility] CLIA [id number] [address] [place] [address] [place] #### 01197-6 #### [facility] CLIA [id number] [address] [place] [address] [place] [facility] CLIA [id number] [address] [place] [address] [place] Cholesterol in VLDL [Mass/Vol] 51 mg/dL High <30 [facility] Comment on above: Order Comment: Speci men Type: BLOOD SPECIMEN Ordering Facility: [facility] Address: [address] [place] [address] Performed By: #### 3 016-3, 89307-0, 2275-05 #### [facility] CLIA [id number] [address] [place] [address] [place] #### 58228-0 #### [facility] CLIA [id number] [address] [place] [address] [place] [facility] [id number] [address] [place] [address] [place] Cholesterol non HDL [Mass/Vol] 147 mg/dL High <130 [facility] Comment on above: Order Comment: Speci men Type: BLOOD SPECIMEN Ordering Facility: [facility] Address: [address] [place] [address] Result Comment: <130 mg/dL, Optimal 130-159 mg/dL, Near optimal/above optimal 160-189 mg/dL, Borderline high 190-219 mg/dL, High >219 mg/dL, Very high Secondary prevention optimal non HDL Cholesterol levels are recommended to be <100 mg/dL Performed By: #### 3 016-3, 48202-6, 2275-05 #### [facility] CLIA [id number] [address] [place] [id number] [place] #### 24756-4 #### [facility] CLIA [id number] [address] [place], [place] [address] [place] [facility] CLIA [id number] [address] [place] [address] [place] Cholesterol.total/Cho lesterol in HDL [Mass ratio] 5.20 {ratio} High <5.10 [facility] Comment on above: Order Comment: Speci men Type: BLOOD SPECIMEN Ordering Facility: [facility] Address: [address] [place] [address] Performed By: #### 3 016-3, 59802-2, 2275-05 #### [facility] CLIA [id number] [address] [place] [address] [place] #### 85051-5 #### [facility] CLIA [id number] [address] [place] [address] [place] [facility] CLIA [id number] [address] [place] [address] [place] FASTING TIME 18 hrs Normal [facility] Comment on above: Order Comment: Speci men Type: BLOOD SPECIMEN Ordering Facility: [facility] Address: [address] [place], [place] [address] Performed By: #### 3 016-3, 17894-4, 2275-05 #### [facility] CLIA [id number] [address] [place] [address] [place] #### 23230-6 #### [facility] CLIA [id number] [address] [place], [place] [address] [place] [facility] CLIA [id number] [address] [place] [address] [place] Triglyceride [Mass/Vol] 254 mg/dL High <150 [facility] Comment on above: Order Comment: Speci men Type: BLOOD SPECIMEN Ordering Facility: [facility] Address: [address] [place] [address] Result Comment: <150 mg/dL, Normal 150-199 mg/dL, Borderline high 200-499 mg/dL, High >499 mg/dL, Very high Performed By: #### 3 016-3, 20823-3, 2276-4 #### [facility] CLIA [id number] [address] [place] [address] [place] #### 00631-7 #### [facility] CLIA [id number] [address] [place] [address] [place] [facility] CLIA [id number] [address] [place] [address] [place] PTH-Intact SerPl-mCncon 08-3 0-2023 Parathyrin.intact [Mass/Vol] 67 pg/mL High 15-65 [facility] Comment on above: Order Comment: Speci men Type: BLOOD SPECIMEN Ordering Facility: [facility] Address: [address] [place] [address] Performed By: #### 2 132-9, 2284-8, 2731-8 #### [facility] CLIA [id number] [address] [place] [address] [place] TSH SerPl-aCncon 10-14-2023 TSH Qn 1.530 m[IU]/L Normal 0.270-4.20 0 [facility] Comment on above: Order Comment: Speci men Type: BLOOD SPECIMEN Ordering Facility: [facility] Address: [address] [place] [address] Performed By: #### B 1WB #### [facility] CLIA [id number] [address] [place] [address] [place] US ABD RIGHT UPPER QUADRANTo n 08-30-2024 US ABD RIGHT UPPER QUADRANT * * [...] sonographic appearance of the right upper quadrant. Pharmacist Helper: [facility] Transcribe Date/Time: Oct 14 2023 3:36P Dictated by : RAFAL THAYER MD This examination was interpreted and the report reviewed and electronically signed by: RAFAL THAYER MD on Oct 14 2023 3:38PM EST [id number] Normal [facility] US Abdomen RUQon 10-14-2023 IMPRESSION: Fatty infiltration of the liver Otherwise normal sonographic appearance of the right upper quadrant. Pharmacist Helper: [facility] Transcribe Date/Time: Oct 14 2023 3:36P Dictated by : RAFAL THAYER MD This examination was interpreted and the report reviewed and electronically signed by: RAFAL THAYER MD on Oct 14 2023 3:38PM EST DIVISION OF RADIOLOGY * * *Final Report* * * DATE OF EXAM: Oct 14 2023 2:02PM [facility] 1032 - US ABD RIGHT UPPER [...] hydronephrosis. Ascites: None. DIVISION OF RADIOLOGY Provider, Lakia López - 10/14/2023 * * *Final Report* * [...] sonographic appearance of the right upper quadrant. Pharmacist Helper: [facility] Transcribe Date/Time: Oct 14 2023 3:36P Dictated by : RAFAL THAYER MD This examination was interpreted and the report reviewed and electronically signed by: RAFAL THAYER MD on Oct 14 2023 3:38PM EST [facility] Radiology Study observation (narrative) [facility] US Abdomen RUQOrdered By: Rehana borja Provider on 10-14-2023 [facility] VITAMIN B1 (THIAMINE), WHOLE BLOODon 10-14-2023 Thiamine (Bld) [Moles/Vol] 141.9 nmol/L Normal 84.3-213.3 [facility] Comment on above: Order Comment: Speci men Type: BLOOD SPECIMEN Ordering Facility: [facility] Address: [address] [place] [address] Result Comment: This assay measures the concentration of thiamine diphosphate (TDP), the primary active form of vitamin B1. Approximately 90 percent of vitamin B1 present in whole blood is TDP. Thiamine and thiamine monophosphate, which comprise the remaining 10 percent, are not measured. This test was developed and its performance characteristics determined by [facility]'s Jasen Davis [facility] [place] ([facility] It has not been cleared or approved by the FDA. [facility] is regulated under CLIA as qualified to perform high-complexity testing. This test is used for clinical purposes. It should not be regarded as investigational or for research. Performed By: #### B 1WB #### [facility] CLIA [id number] [address] [place] [address] [place] Vit A SerPl-mCncon 4 Retinol [Mass/Vol] 0.44 mg/L Normal 0.30-1.20 [facility] Comment on above: Order Comment: Speci men Type: BLOOD SPECIMEN Ordering Facility: [facility] Address: [address] [place] [address] Result Comment: Test performed at [facility] in [place], [place]. Disregard [facility] reference range. [facility] Vitamin A reference range is: 0.30-1.20 mg/L. This test was developed and its performance characteristics determined by [facility]. It has not been cleared or approved by the US Food and Drug Administration. This test was performed in a CLIA certified laboratory and is intended for clinical purposes. Performed By: #### 2 923-1 #### [facility] CLIA [id number] [address] [place] [address] [place] Vit B12 SerPl-mCncon 10-13- 024 Cobalamin (Vitamin B12) [Mass/Vol] 1062 pg/mL Normal 232-1245 [facility] Comment on above: Order Comment: Speci men Type: BLOOD SPECIMEN Ordering Facility: [facility] Address: [address] [place] [address] Performed By: #### 2 132-9, 2284-8, 2021-8 #### [facility] CLIA [id number] [address] [place] [address] [place] Zinc SerPl-mCncon 10-14-2023 Zinc [Mass/Vol] 77 ug/dL Normal 60-120 [facility] Comment on above: Order Comment: Speci men Type: BLOOD SPECIMEN Ordering Facility: [facility] Address: [address] [place] [address] Result Comment: This test was developed and its performance characteristics determined by [facility]'s Jasen Davis [facility] Pathology and Laboratory [facility] [place] ([facility]). It has not been cleared or approved by the FDA. [facility] is regulated under CLIA as qualified to perform high-complexity testing. This test is used for clinical purposes. It should not be regarded as investigational or for research. Performed By: #### B 1WB #### [facility] CLIA [id number] [address] [place] [address] [place] Angeline 09-30-2023 ANDRZEJN Telephone (AGGENS4) JOÃO MUJICA ([id number]) 1965 [facility] Date Time Provider Department 09/30/23 CHERRY HERNANDEZ AGGENS4 During your visit today, we recorded the following information about you: Mikey Carrion RN 09/30/2023 2:28 PM Signed Cardiac clearance letter sent/faxed to CNP. Mikey Tony RN Rafferty, Shannon M, RN 09/30/2023 2:28 PM Signed Pulmonary Clearance letter sent/faxed to Lesly Chavis APRN.ANDRZEJ. KYE Bills Jennifer, LPN 10/05/2023 11:43 AM Signed Cardiac clearance letter scanned into chart Frederick Colvin APRN.CAREER PLACEMENT SPECIALIST 10/05/2023 12:04 PM Signed Cardiac clearance reviewed, low risk. Frederick Colvin APRN.Mikey Medel RN 10/28/2023 2:40 PM Signed 2nd Pulmonology clearance letter sent/faxed to Joanne Chavis NP. Mikey Carrion RN, BSN Bariatric Zinc Chloride Operator Allergies As of Date: 09/30/2023 Noted Allergy [...] Date Reviewed: 09/30/2023 Reviewed by: Jennifer Salas APRN.CAREER PLACEMENT SPECIALIST - Fully Assessed Reason for Visit: Medical [...] Depressive disorder, not elsewhere classified [*06/10/2008 Mgrn tutu rogers wo intrc mgr [G43.009] 06/10/2008 Esophageal reflux [...] Status:Closed by MIKEY CARRION on 09/30/23 Normal [facility] Prothrombin Time w/INRon INR Coag (PPP) [Relative time] 2.5 {INR} Normal [facility] Comment on above: Performed By: #### L 500.4100, L500.4050, L100.0100, L506.1000, L501.9520 #### [facility] [address] [place], [address] PT Coag (PPP) [Time] 26.5 s High 11.7-14.9 [facility] Comment on above: Performed By: #### L 500.4100, L500.4050, L100.0100, L506.1000, L501.9520 #### [facility] [address] [place], [address] CNCOon 08-15-2023 CNCO Letter Text Normal [facility] CNPTere 08-01-2023 CNPN Telephone (AGGENS4) JOÃO MUJICA ([id number]) 1965 F CHT Date Time Provider Department 08/01/23 JENNIFER SALAS WARREN4 During your visit today, we recorded the following information about you: Gema Flores 08/01/2023 9:51 AM Signed Called LVM to inform her that yes the [facility] will require Pulm and Cardio clearance for bariatric surgery. As I lso look in her [employer] profile her BMI is too low for bariatric. Gave patient out number incase she wanted to call back with questions. Allensawyer TrippVeroa 08/01/2023 10:07 AM Signed Allergies As of [...] and stiffness Date Reviewed: 07/28/2023 Reviewed by: Cherry Hernandez MD - Fully Assessed Reason for [...] valve replacement [Z95.2] 05/13/2023 Encounter Status:Closed by GEMA FLORES on 08/01/23 Normal [facility] NICOTINE AND METAB, URon URIN ANABASINE QUANT <5 Normal [facility] Comment on above: Order Comment: Speci men Type: URINE SPECIMEN Ordering Facility: [facility] Address: [address] [place] [address] Performed By: #### U NICOT #### [facility] CLIA [id number] [address] [place] [address] URIN COTININE QUANT <15 Normal [facility] Comment on above: Order Comment: Speci men Type: URINE SPECIMEN Ordering Facility: [facility] Address: [address] [place] [address] Performed By: #### U NICOT #### [facility] CLIA [id number] [address] [place] [address] URIN NICOTINE QUANT <15 Normal [facility] Comment on above: Order Comment: Speci men Type: URINE SPECIMEN Ordering Facility: [facility] Address: [address] [place] [address] Result Comment: INTE RPRETIVE INFORMATION: Nicotine and Metabolites, Urine, Quantitative Methodology: Quantitative Liquid Chromatography-Tandem Mass Spectrometry Positive cutoff: Nicotine 15 ng/mL Cotinine 15 ng/mL 4-LL-Nxwbnsip 50 ng/mL Anabasine 5 ng/mL For medical [...] developed and its performance characteristics determined by [facility]. It has not been cleared or approved by the US Food and Drug Administration. This test was performed in a CLIA certified laboratory and is intended for clinical purposes. Performed By: [facility] [address] [place] [id number] Supply Clerk: Brandon Dhillon MD, PhD CLIA Number: [id number] Performed By: #### U NICOT #### [facility] CLIA [id number] [address] [place] [address] URINE 3 [place] COTININE <50 Normal [facility] Comment on above: Order Comment: Speci men Type: URINE SPECIMEN Ordering Facility: [facility] Address: [address] [place] [address] Performed By: #### U NICOT #### [facility] CLIA [id number] [address] [place] [address] TOXICOLOGY SCREEN, ROUTINE U RINEon 07-29-2023 Amphetamines Confirm (U) [Mass/Vol] Negative Normal Negative [facility] Comment on above: Order Comment: Speci men Type: BLOOD SPECIMEN Ordering Facility: [facility] Address: [address] [place] [address] Result Comment: Cuto ff threshold at 1000 ng/mL. Performed By: #### B 1WB #### [facility] CLIA [id number] [address] [place] [address] [place] BARBITURATES, URINE Negative Normal Negative [facility] Comment on above: Order Comment: Speci men Type: BLOOD SPECIMEN Ordering Facility: [facility] Address: [address] [place] [address] Result Comment: Cuto ff threshold at 200 ng/mL. Performed By: #### B 1WB #### [facility] CLIA [id number] [address] [place] [address] [place] BENZODIAZEPINES, UR Negative Normal Negative [facility] Comment on above: Order Comment: Speci men Type: BLOOD SPECIMEN Ordering Facility: [facility] Address: [address] [place] [address] Result Comment: Cuto ff threshold at 200 ng/mL. Performed By: #### B 1WB #### [facility] CLIA [id number] [address] [place] [address] [place] Cannabinoids Screen Ql (U) Negative Normal Negative [facility] Comment on above: Order Comment: Speci men Type: BLOOD SPECIMEN Ordering Facility: [facility] Address: [address] [place] [address] Result Comment: Cuto ff threshold at 50 ng/mL. Performed By: #### B 1WB #### [facility] CLIA [id number] [address] [place] [address] [place] Cocaine Ql (U) Negative Normal Negative [facility] Comment on above: Order Comment: Speci men Type: BLOOD SPECIMEN Ordering Facility: [facility] Address: [address] [place] [address] Result Comment: Cuto ff threshold at 300 ng/mL. Performed By: #### B 1WB #### [facility] CLIA [id number] [address] [place] [address] [place] Ethanol (U) [Mass/Vol] <11 Normal <11 [facility] Comment on above: Order Comment: Speci men Type: BLOOD SPECIMEN Ordering Facility: [facility] Address: [address] [place] [address] Performed By: #### B 1WB #### [facility] CLIA [id number] [address] [place] [address] [place] Opiates Screen Ql (U) Negative Normal Negative [facility] Comment on above: Order Comment: Speci men Type: BLOOD SPECIMEN Ordering Facility: [facility] Address: [address] [place] [address] Result Comment: Cuto ff threshold at 300 ng/mL. Performed By: #### B 1WB #### [facility] CLIA [id number] [address] [place] [address] [place] oxyCODONE cutoff Screen (U) [Mass/Vol] Negative Normal Negative [facility] Comment on above: Order Comment: Speci men Type: BLOOD SPECIMEN Ordering Facility: [facility] Address: [address], [place] [address] Result Comment: Cuto ff threshold at 100 ng/mL. Performed By: #### B 1WB #### [facility] CLIA [id number] [address] [place] [address] [place] Phencyclidine Ql (U) Negative Normal Negative [facility] Comment on above: Order Comment: Speci men Type: BLOOD SPECIMEN Ordering Facility: [facility] Address: [address] [place] [address] Result Comment: Cuto ff threshold at 25 ng/mL. Performed By: #### B 1WB #### [facility] CLIA [id number] [address] [place] [address] [place] TSH SerPl-aCncon 07-29-2023 TSH Qn 2.540 m[IU]/L Normal 0.270-4.20 0 [facility] Comment on above: Order Comment: Speci men Type: BLOOD SPECIMEN Ordering Facility: [facility] Address: [address] [place] [address] Performed By: #### 3 016-3 #### [facility] CLIA [id number] [address] [place] [address] [place] CNOVon 07-28-2023 CNOV Office Visit (WARREN 4) JOÃO MUJICA ([id number]) 1965 F CHT Date Time Provider Department 07/28/23 8:00 AM CHERRY HERNANDEZ During your visit today, we recorded the following information about you: Pulse Blood pressure Weight Height 68/minute 126/72 84.5 kg 1.626 m Cherry Hernandez MD 07/28/2023 8:25 AM Signed SURGICAL SERVICES HISTORY AND PHYSICAL EXAMINATION SERVICE DATE: 07/28/2023 SERVICE TIME: 8:04 AM PRIMARY CARE PHYSICIAN: ISABELLE MARTINES SUBJECTIVE CHIEF COMPLAINT: heartburn HISTORY OF PRESENT [...] our system as it was completed in [place]. Today she reports that despite the negative h.pylori testing she still is experiencing GERD symptoms of heartburn, nausea, and regurgitation. She remains on Protonix every day and takes additional TUMs as well. Workup: - EGD (05/13/23); Gisela: Concern for Flaherty's esophagus. 10 cm VBG [...] a GES in the past at [facility] [place]. She does not recall the results, but she believes it was slow and she was diagnosed with gastroparesis Social: denies use of tobacco, etoh, or marijuana. 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 Curiel LIGATE FALLOPIAN TUBE 1991 [place] [facility] TOTAL ABDOMINAL HYSTERECT W/WO RMVL TUBE OVARY 2004 Hysterectomy, LUZ -- ovaries intact, Dr. Luz Garcia in [place] FAMILY HISTORY: FAMILY HISTORY Problem Relation Age of Onset Coronary Artery Disease Mother CAD, no [place]; first diagnosed mid-50's? Coronary Artery Disease Maternal Grandmother [place], CAD Coronary Artery Disease Maternal Grandfather [place], CAD None Father UNKNOWN --- Colon Cancer Other none Diabetes Other none Breast Cancer Other none other (ADD [Other]) Son SOCIAL HISTORY: Social History Tobacco Use Smoking status: Never Smokeless tobacco: Never Vaping Use Vaping Use: Never used Substance Use Topics Alcohol use: No Drug use: No MEDICATIONS: Current Outpatient Medications Medication Sig bismuth subsal (more content not included)... Normal [facility] CNPTere 07-28-2023 CNPN Telephone (AGGENS4) JOÃO MUJICA ([id number]) 1965 F CHT Date Time Provider Department 07/28/23 CHERRY HERNANDEZ AGGENS4 During your visit today, we recorded the following information about you: Rg-NurseShawn 07/28/2023 8:59 AM Addendum Set up for [facility] SESAR [place], [place] of [facility] ([id number]) and other [facility] appts SNA [place] - Gisela / [facility] / 6 [place] - Lyjace Alves [place] - [place] #2 / Gisela / [facility] [place] - Donald Allergies As of Date: [...] and stiffness Date Reviewed: 07/28/2023 Reviewed by: Cherry Hernandez MD - Fully Assessed Reason for [...] valve replacement [Z95.2] 05/13/2023 Encounter Status:Closed by SHAWN SANCHEZ on 07/28/23 [facility] CNPN Telephone (AGGENS4) JOÃO MUJICA ([id number]) 1965 F [facility] Date Time Provider Department 07/28/23 CHERRY HERNANDEZ AGGENS4 During your visit today, we recorded the following information about you: Nickie Dey 07/28/2023 3:10 PM Signed Patient called in asking if Pulmonology clearance is required for their surgery. [facility] and was advised that they could not get in to see a hand presser until January - because they have never seen by a hand presser. Patient must go through [place] for all appointments and clearances. Patient was able to get an appointment with their water sander because they were already established patient. Patient [...] and stiffness Date Reviewed: 07/28/2023 Reviewed by: Cherry Hernandez MD - Fully Assessed Reason for Visit: Appointment [186] Patient Question [[id number]] Prescriptions as of 07/28/2023 - bismuth subsalicylate [...] valve replacement [Z95.2] 05/13/2023 Encounter Status:Closed by NICKIE DEY on 07/28/23 [facility] Angeline 06-10-2023 ANDRZEJ Telephone (AGGENS4) JOÃO MUJICA ([id number]) 1965 F T Date Time Provider Department 06/10/23 CHERRY HERNANDEZ AGGENS4 During your visit today, we recorded the following information about you: Gema Flores 06/10/2023 10:54 AM Signed Called patient [...] and stiffness Date Reviewed: 05/27/2023 Reviewed by: Cherry Hernandez MD - Fully Assessed Reason for Visit: Patient Update [1234] Cmt: [place] benefits information Prescriptions as of 06/10/2023 - [...] valve replacement [Z95.2] 05/13/2023 Encounter Status:Closed by GEMA FLORES on 06/10/23 [facility] CNOVrukhsana 05-27-2023 CNOV Office Visit (AGGENS 4) JOÃO MUJICA ([id number]) 1965 F T Date Time Provider Department 05/27/23 9:30 AM CHERRY HERNANDEZ AGGENS4 During your visit today, we recorded the following information about you: Pulse Blood pressure Weight Height 70/minute 134/80 87.6 kg 1.626 m Cherry Hernandez MD 05/27/2023 12:40 PM Signed SURGICAL SERVICES HISTORY AND PHYSICAL EXAMINATION SERVICE DATE: 05/27/2023 SERVICE TIME: 10:08 AM PRIMARY CARE PHYSICIAN: ISABELLE MARTINES SUBJECTIVE CHIEF COMPLAINT: follow up after testing [...] since starting medications. Workup: - EGD (05/13/23); Gisela: Concern for Flaherty's esophagus. 10 cm VBG [...] a GES in the past at the [facility] [place]. She does not recall the results, but she believes it was slow and she was diagnosed with gastroparesis Social: denies use of tobacco, etoh, or marijuana. 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 Curiel LIGATE FALLOPIAN TUBE 1991 [place] PAST SURGICAL HISTORY OF 2004 ORIF femur, [facility] TOTAL ABDOMINAL HYSTERECT W/WO RMVL TUBE OVARY 2005 Hysterectomy, LUZ -- ovaries intact, Dr. Luz Garcia in [place] FAMILY HISTORY: FAMILY HISTORY Problem Relation Age of Onset Coronary Artery Disease Mother CAD, no [place]; first diagnosed mid-50's? Coronary Artery Disease Maternal Grandmother [place], CAD Coronary Artery Disease Maternal Grandfather [place], CAD None Father UNKNOWN --- Colon Cancer [...] mouth before (more content not included)... Normal [facility] CNPNon 05-27-2023 CNPN Telephone (AGGENS4) JOÃO MUJICA ([id number]) 1965 F T Date Time Provider Department 05/27/23 CHERRY HERNANDEZ AGGENS4 During your visit today, we [...] and stiffness Date Reviewed: 05/27/2023 Reviewed by: Cherry Hernandez MD - Fully Assessed Reason for [...] Encounter Status:Closed by LISA COMBS on 05/27/23 [facility] ANES POSTPROC EVALon 024 ANES POSTPROC EVAL HNO ID: [id number] Author: TYSON ELLISON MD, PhD Service: Anesthesiology Author Type: Anesthesiologist Type: Anesthesia Postprocedure Evaluation Filed: 05/13/2023 12:41 Note Text: POST ANESTHESIA EVALUATION NOTE : 1965 Procedure Summary Date: 05/13/23 Room / Location: [facility] Anesthesia Start: 08 Anesthesia Stop: 831 Procedure: EGD - THERAPEUTIC, EUS, OR TUBE INTERVENTIONS Diagnosis: Gastroesophageal reflux disease, unspecified whether esophagitis present (Functional Dyspepsia) Scheduled Providers: Cherry Hernandez MD Responsible Provider: Tyson Ellison MD, [...] SIGNATURE: Tyson Ellison MD, PhD PATIENT NAME: João Mujica DATE: May 13, 2023 TIME: 12:40 PM CSN: [id number] [facility] ANES PRE-OPon 05-13-2023 ANES PRE-OP HNO ID: [id number] Author: TYSON ELLISON MD, PhD Service: Anesthesiology Author Type: Anesthesiologist Type: Anesthesia Preprocedure Evaluation Filed: 05/13/2023 08:02 Note Text: ANESTHESIOLOGY DAY OF SURGERY NOTE : 1965 Procedure Information Date/Time: 05/13/23 0800 Scheduled providers: Cherry Hernandez MD Procedure: EGD - THERAPEUTIC, EUS, [...] and consent discussed: yes. Patient / Responsible Alliance Party agrees to proceed: yes Patient / Surrogate agrees to blood products: Yes Potential Anesthesia issues that may suggest increased risk of complications or contraindication to planned procedure: none. Vitals Value Taken Time BP 143/83 05/13/23 0733 Pulse 70 05/13/23 0733 Resp 15 05/13/23 0733 Temp 36.5 ?C (97.7 ?F) 05/13/23 0733 SpO2 97 % 05/13/23 0733 Outpatient Medications as of 05/13/2023 Medication Sig [...] SIGNATURE: Tyson Ellison MD, PhD PATIENT NAME: João Mujica DATE: May 13, 2023 TIME: 8:02 AM CSN: [id number] [facility] HISTORY PHYSICALon HISTORY PHYSICAL HNO ID: [id number] Author: ROYCE HOLLAND APRN.[email or web address] Service: Anesthesiology Author Type: Nurse Practitioner Type: H&P Filed: 05/13/2023 08:02 Note Text: HISTORY AND PHYSICAL EXAMINATION SERVICE DATE: 05/13/2023 SERVICE TIME: 7:09 AM PRIMARY CARE PHYSICIAN: ISABELLE MARTINES REASON FOR VISIT: João Mujica is a 57 year old female who is scheduled for EGD at the request of Dr. Cherry Hernandez for routine HANDP. To perform a [...] 57 year old female who presents to [facility] for the above procedure. She reports [...] Date ABDOMINOPLASTY LIPOSUCTION, TUMMY TUCK CHOLECYSTECTOMY 02/15/1992 [place] EGD TRANSORAL BIOPSY SINGLE/MULTIPLE 10/20/2010 [facility] RSTCV W/O BYP OTH/THN [place]-BANDED GSTP 02/14/1993 [place] HEART VALVE REPLACEMENT 05/15/2009 mechanical valve, Aortic root, [facility] in [place] Dr. Curiel LIGATE FALLOPIAN TUBE 1991 [place] PAST SURGICAL HISTORY OF 2004 ORIF femur, [facility] TOTAL ABDOMINAL HYSTERECT W/WO RMVL TUBE OVARY 2004 Hysterectomy, LUZ -- ovaries intact, Dr. Luz Garcia in [place] FAMILY HISTORY Problem Relation Age of Onset Coronary Artery Disease Mother CAD, no [place]; first diagnosed mid-50's? Coronary Artery Disease Maternal Grandmother [place], CAD Coronary Artery Disease Maternal Grandfather [place], CAD None Father UNKNOWN --- Colon Cancer [...] Pain Assessmen (more content not included)... Normal [facility] SURGICAL PATHOLOGYon CASE REPORT Normal [facility] Comment on above: Order Comment: Speci men Type: TISSUE SPECIMENOrdering Facility: [facility] Address: [address] [place] [address] Result Comment: [facility] Pathology Report Case: [id number] Authorizing Provider: Cherry Hernandez MD Collected: 05/13/2023 08:20 AM Ordering Location: [facility] Received: 05/13/2023 02:58 PM Pathologist: Tacho Yen MD Specimens: A) - STOMACH BIOPSY, gastric antrum biopsy B) - ESOPHAGOGASTRIC JUNCTION BIOPSY Performed By: #### S ####[facility] LABORATORYCLIA [id number] [place] [address] [facility] CLINICAL HISTORY Functional Dyspepsia Normal [facility] Comment on above: Order Comment: Speci men Type: TISSUE SPECIMENOrdering Facility: [facility] Address: [address] [place] [address] Performed By: #### S ####[facility] LABORATORYCLIA [id number] [place] [address] [facility] DIAGNOSIS COMMENT Normal [facility] Comment on above: Order Comment: Speci men Type: TISSUE SPECIMENOrdering Facility: [facility] Address: [address] [place] [address] Result Comment: The staining structures in both biopsies are suspicious but inconclusive for Helicobacter pylori. Clinical correlation and confirmational studies may be indicated. This case was reviewed by Dr. Dorita Elkins who agrees with this assessment. Laboratory Developed Test (LDT) Disclaimer: Performance characteristics of immunohistochemical, immunofluorescent and chromogenic in-situ hybridization tests have been determined by the performing laboratory within [facility]???s [facility] [place] ([facility], [place], [facility], [facility], , [facility], [facility], or [facility]) in a manner consistent with CLIA requirements. One or more of these tests have not been cleared or approved by the FDA. [facility] is regulated under CLIA as qualified to perform high-complexity testing. These tests are used for clinical purposes. They should not be regarded as investigational or for research. Positive and negative controls stain appropriately. Performed By: #### S ####[facility] LABORATORYCLIA [id number] [place] [id number] [facility] FINAL DIAGNOSIS Normal [facility] Comment on above: Order Comment: Speci men Type: TISSUE SPECIMENOrdering Facility: [facility] Address: [address] [place], [place] [id number] Result Comment: Aurelia kaplan, antrum, biopsy: - Mild chronic gastritis. Immunohistochemical stain for Helicobacter pylori reveals rare staining structures suspicious for organisms. See comment. B. Gastroesophageal junction, biopsy: - Gastric type glandular mucosa with chronic gastritis. Immunohistochemical stain for Helicobacter pylori reveals staining structures suspicious for organisms. See comment. Performed By: #### S ####[facility] LABORATORYCLIA [id number] [address] FINAL PERFORMING LAB Normal [facility] Comment on above: Order Comment: Speci men Type: TISSUE SPECIMENOrdering Facility: [facility] Address: [address] [place] [address] Result Comment: Diag nostic interpretation performed at [facility], [address] [place] [address] CLIA# [id number] Supply Clerk: Tacho Yen M.D. Performed By: #### S ####[facility] LABORATORYCLIA [id number] [address] GROSS DESCRIPTION Normal [facility] Comment on above: Order Comment: Speci men Type: TISSUE SPECIMENOrdering Facility: [facility] Address: [address] [place] [address] Result Comment: A. S TOMACH BIOPSY Received [...] entirely in B1. Gross examination performed at [facility], [address] [place] [address] CLIA#[id number] OLS May 13, 2023 3:27 PM Performed By: #### S ####[facility] LABORATORYCLIA [id number] [address] Upper GI endoscopyon 024 Upper GI endoscopy [facility] Gastrointestinal Endoscopy Patient Name: João Mujica Procedure Date: 05/13/2023 8:04 AM Date of : 1965 Admit Type: Outpatient Room: [place] [address] Gender: Female Note Status: Finalized Attending MD: Cherry Hernandez MD, [id number] Procedure: Upper GI endoscopy Indications: Functional Dyspepsia Providers: Cherry Hernandez MD Patient Profile: Refer to note in patient chart for documentation of history and physical. Patient has symptoms of chronic heartburn. She is status post laparoscopic vertical banded gastroplasty in the distant past. Referring Physician: Cherry Hernandez MD (Referring MD) Medicines: Monitored Anesthesia [...] Loss: Estimated blood loss: none. Impression: - Mayfield-colored mucosa suspicious for short-segment Flaherty's esophagus. Biopsied. - Normal duodenal bulb, first portion of the duodenum, second portion of the duodenum and third portion of the duodenum. - Patent vertical banded gastroplasty with a pouch greater than 10 cm (measured from 39 cm to 50 cm) in length and intact staple line and band appears loose. Biopsied the gastric antrum. - The Compufirst pH capsule was deployed. Recommendation: - Await pathology results. - Discharge patient to home (ambulatory). - Resume previous diet. - Continue present medications. - Return to my office. - Continue Coumadin (warfarin) at prior dose. Refer to managing physician for further adjustment of therapy. Procedure Code(s): --- Professional --- 31680, Esophagogastroduodenoscopy, flexible, transoral; with biopsy, single or multiple --- Technical --- 88974, 59, Esophagogastroduodenoscopy, flexible, transoral; with biopsy, single or multiple 11206, TC, Esophagus, gastroesophageal reflux test; with mucosal attached telemetry pH electrode placement, recording, analysis and interpretation Diagnosis Code(s): --- Professional --- K22.89, Other specified disease of esophagus Z98.84, Bariatric surgery status K30, Functional dyspepsia CPT copyright 2020 [employer]. All rights reserved. The codes documented in this report are preliminary and upon national insurance officer review may be revised to meet current compliance requirements. Attending Participation: I personally performed the entire proced (more content not included)... Normal [facility] Basophil percentageon 2023 Hemoglobin (Bld) [Mass/Vol] 12.2 g/dL 12.0-15.0 [facility] WBC (Bld) [#/Vol] 6.8 10*3/uL 4.4-11.0 [facility] Determination of erythrocyte mean corpuscular volume (MCV)on 05-10-2023 MCV (RBC) [Entitic vol] 83.9 fL 81-99 [facility] Erythrocyte distribution wid th ratioon 05-10-2023 Erythrocyte distribution width (RBC) [Ratio] 13.4 % 11.6-14.6 [facility] Erythrocyte distribution wid th standard deviationon 05-10-2023 Erythrocyte distribution width (RBC) [Entitic vol] 41.3 fL 35.1-43.9 [facility] Hematocrit Auto (Bld) [Volum e fraction]on 05-10-2023 Hematocrit (Bld) [Volume fraction] 36.5 % 37-47 [facility] Laboratory - Coagulationon 0 05-10-2023 INR Coag (Bld) [Relative time] 2.4 {INR} [facility] PT Coag (PPP) [Time] 25.9 s 11.7-14.9 [facility] Laboratory - Hematology and Cell countson 05-10-2023 MCH (RBC) [Entitic mass] 28.0 pg 27.0-32.0 [facility] MCHC (RBC) [Mass/Vol] 33.4 g/dL 32-36 [facility] Platelet mean volume (Bld) [Entitic vol] 9.9 fL 6.2-12.0 [facility] Platelets (Bld) [#/Vol] 316 10*3/uL 150-450 [facility] RBC Auto (Bld) [#/Vol]on RBC (Bld) [#/Vol] 4.35 10*6/uL 4.2-5.4 [facility] ALLIED HEALTHon 04-22-2023 ALLIED HEALTH HNO ID: [id number] Author: MADY PERRY RT(R) Service: Radiology Author Type: Technologist Type: Allied Health Filed: 04/22/2023 08:33 Note Text: Radiology Service Progress Note PATIENT NAME: João Mujica DATE OF SERVICE: April 22, 2023 [...] PATIENT PRESENTS WITH AN IMPLANTABLE OR ATTACHED WHIZZER OPERATOR: No RADIOLOGY DEPARTMENT: General X-ray: Exam(s) Completed: GI/ Procedure(s): Upper GI with barium contrast PERIPHERAL IV DATA: Not applicable SIGNED BY: RT Park(R) April 22, 2023 8:29 AM [facility] RF Gastrointestinal tract up per Views W barium contrast [place] 04-22-2023 [facility] XR UPPER GI SINGLE CONTRASTo n [...] upper GI study was performed by a radiology aide. 1 minute and 54 seconds of fluoroscopy time was utilized. 96 images submitted for interpretation. FINDINGS: No obvious esophageal abnormality. No ulceration or stricture. Postoperative deformity of the stomach. There is no obvious mass or ulceration. 3 cm hiatal hernia. Normal gastric evacuation of contrast into a normal-appearing proximal small bowel. IMPRESSION: Postoperative changes involving the stomach. 3 cm hiatal hernia. Pharmacist Helper: BULL Transcribe Date/Time: Apr 22 2023 12:04P Dictated by : LANE DEWITT MD This examination was interpreted and the report reviewed and electronically signed by: LANE DEWITT MD on Apr 22 2023 12:09PM EST [id number] Normal [facility] CNOVon 03-11-2023 CNOV Office Visit (AGGENS 4) JOÃO MUJICA ([id number]) 1965 F CHT Date Time Provider Department 03/11/23 9:00 AM CHERRY HERNANDEZ AGGENS4 During your visit today, we recorded the following information about you: Pulse Blood pressure Weight Height 76/minute 137/88 86.9 kg 1.626 m Cherry Hernandez MD 03/11/2023 9:55 AM Signed SURGICAL SERVICES HISTORY AND PHYSICAL EXAMINATION SERVICE DATE: 03/11/2023 SERVICE TIME: 9:26 AM PRIMARY CARE PHYSICIAN: [facility] SUBJECTIVE CHIEF COMPLAINT: nausea HISTORY OF PRESENT ILLNESS: Ms. Mujica is a 57 year old female with a PMH of obesity (BMI 32.89), [employer] (getting fitted for CPAP), aortic regurgitation, PTSD (severe), and GERD who presents for surgical consultation. Surgical consultation was requested by the patient's referring physician, [facility] in [place]. A copy of this consultation note will [...] a GES in the past at the [facility] in [place]. She does not recall the results, but [...] etoh, or marijuana. 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 Curiel LIGATE FALLOPIAN TUBE 1991 [place] PAST SURGICAL HISTORY OF 2004 ORIF femur, [facility] TOTAL ABDOMINAL HYSTERECT W/WO RMVL TUBE OVARY 2004 Hysterectomy, LUZ -- ovaries intact, Dr. Luz Garcia in [place] FAMILY HISTORY: FAMILY HISTORY Problem Relation Age of Onset Coronary Artery Disease Mother CAD, no [place]; first diagnosed mid-50's? Coronary Artery Disease Maternal Grandmother [place], CAD Coronary Artery Disease Maternal Grandfather [place], CAD None Father UNKNOWN --- Colon Cancer [...] cough. Nega (more content not included)... [facility] JO[facility]O MUJICA ([id number]) 1965 F T Date Time Provider Department 03/11/23 CHERRY HERNANDEZ AGGENS4 During your visit today, we [...] and stiffness Date Reviewed: 03/11/2023 Reviewed by: Cherry Hernandez MD - Fully Assessed Reason for [...] Status:Closed by LISA COMBS on 03/11/23 [facility] .Auto Diffon 03-04-2023 Basophil, Absolute 0.0 10 3/mcL Normal 0.0-0.2 [facility] ([place]) Comment on above: Performed By: #### A WARREN, PRO, CBC, ADIFF #### [place] [address] [address] Basophils/100 WBC (Bld) 0.5 % Normal 0.0-2.5 [facility] ([place]) Comment on above: Performed By: #### A WARREN, PRO, CBC, ADIFF #### [address] [address] Eosinophil, Absolute 0.5 10 3/mcL High 0.0-0.4 [facility] ([place]) Comment on above: Performed By: #### A WARREN, PRO, CBC, ADIFF #### [address] [address] Eosinophils/100 WBC (Bld) 6.8 % Normal 0.0-7.0 [facility] ([place]) Comment on above: Performed By: #### A WARREN, PRO, CBC, ADIFF #### [address] [address] Lymphocyte, Absolute 1.6 10 3/mcL Normal 0.8-3.9 [facility] ([place]) Comment on above: Performed By: #### A WARREN, PRO, CBC, ADIFF #### [address] [address] Lymphocytes/100 WBC (Bld) 24.0 % Normal 10.0-50.0 [facility] ([place]) Comment on above: Performed By: #### A WARREN, PRO, CBC, ADIFF #### [address] [address] Monocyte, Absolute 0.6 10 3/mcL Normal 0.2-1.0 [facility] ([place]) Comment on above: Performed By: #### A WARREN, PRO, CBC, ADIFF #### [address] [address] Monocytes/100 WBC (Bld) 8.3 % Normal 1.7-13.0 [facility] ([place]) Comment on above: Performed By: #### A WARREN, PRO, CBC, ADIFF #### [address] [address] Neutrophils/100 WBC (Bld) 60.4 % Normal 37.0-80.0 [facility] ([place]) Comment on above: Performed By: #### A WARREN, PRO, CBC, ADIFF #### [address] [address] .NEUABSon 03-04-2023 Neutrophil, Absolute 4.0 10 3/mcL Normal 2.9-6.2 [facility] ([place]) Comment on above: Performed By: #### A WARREN, PRO, CBC, ADIFF #### [address] [address] CBCon 03-04-2023 Erythrocyte distribution width (RBC) [Ratio] 14.5 % Normal 11.5-14.5 [facility] ([place]) Comment on above: Performed By: #### A WARREN, PRO, CBC, ADIFF #### [address] [address] Hematocrit (Bld) [Volume fraction] 37.9 % Normal 37.0-47.0 [facility] ([place]) Comment on above: Performed By: #### A WARRNE, PRO, CBC, ADIFF #### [address] [address] Hgb 13.1 G/dL Normal 12.0-16.0 [facility] ([place]) Comment on above: Performed By: #### A WARREN, PRO, CBC, ADIFF #### [address] [address] MCH (RBC) [Entitic mass] 29.4 pg Normal 27.0-31.2 [facility] ([place]) Comment on above: Performed By: #### A WARREN, PRO, CBC, ADIFF #### [address] [address] MCHC 34.6 G/dL Normal 33.0-37.0 [facility] ([place]) Comment on above: Performed By: #### A WARREN, PRO, CBC, ADIFF #### [address] [address] MCV (RBC) [Entitic vol] 84.9 fL Normal 80.0-94.0 [facility] ([place]) Comment on above: Performed By: #### A WARREN, PRO, CBC, ADIFF #### [address] [address] Platelet 266 10 3/mcL Normal 130-400 [facility] ([place]) Comment on above: Performed By: #### A WARREN, PRO, CBC, ADIFF #### [address] [address] Platelet mean volume (Bld) [Entitic vol] 7.8 fL Normal 7.4-10.4 [facility] ([place]) Comment on above: Performed By: #### A WARREN, PRO, CBC, ADIFF #### [address] [address] RBC 4.46 10 6/mcL Normal 4.20-5.40 [facility] ([place]) Comment on above: Performed By: #### A WARREN, PRO, CBC, ADIFF #### [address] [address] WBC 6.7 10 3/mcL Normal 4.6-10.8 [facility] ([place]) Comment on above: Performed By: #### A WARREN, PRO, CBC, ADIFF #### [address] [address] PROon 03-04-2023 PT Coag (PPP) [Time] 28.0 s High 9.0-14.2 [facility] ([place]) Comment on above: Performed By: #### A WARREN, PRO, CBC, ADIFF #### [address] [address] PT International Ratio 2.4 Normal [facility] ([place]) Comment on above: Result Comment: The [employer] (CHEST, 1992, 102:312S-25S) recommended therapeutic range for oral anticoagulant therapy is: LOW RISK: Prophylaxis of venous thrombosis INR: 2.0-3.0 Treatment of pulmonary embolism 2.0-3.0 Prevention of systemic embolism 2.0-3.0 HIGH RISK: Mechanical prosthetic valves 2.5-3.5 Performed By: #### A WARREN, PRO, CBC, ADIFF #### [address] [address] FEon 02-25-2023 Iron [Mass/Vol] 85 ug/dL Normal 50-170 [facility] ([place]) Comment on above: Performed By: #### A WARREN, PRO, CBC, ADIFF #### [address] [address] Burak 02-25-2023 Ferritin [Mass/Vol] 23.0 ng/mL Normal 8.0-252.0 [facility] ([place]) Comment on above: Performed By: #### A WARREN, PRO, CBC, ADIFF #### [address] [address] HHon 02-25-2023 Hematocrit (Bld) [Volume fraction] 34.9 % Low 37.0-47.0 [facility] ([place]) Comment on above: Performed By: #### A WARREN, PRO, CBC, ADIFF #### [place] [address] Hgb 12.2 G/dL Normal 12.0-16.0 [facility] ([place]) Comment on above: Performed By: #### A WARREN, PRO, CBC, ADIFF #### [address] [address] LABORATORYOrdered By: SYSTEM SYSTEM on 02-25-2023 Ferritin [...] Basophil, Absolute 0.0 10 3/mcL Normal 0.0-0.2 [facility] ([place]) Comment on above: Performed By: #### A WARREN, PRO, CBC, ADIFF #### [address] [address] Basophils/100 WBC (Bld) 0.4 % Normal 0.0-2.5 [facility] ([place]) Comment on above: Performed By: #### A WARREN, PRO, CBC, ADIFF #### [address] [address] Eosinophil, Absolute 0.4 10 3/mcL Normal 0.0-0.4 [facility] ([place]) Comment on above: Performed By: #### A WARREN, PRO, CBC, ADIFF #### [address] [address] Eosinophils/100 WBC (Bld) 6.5 % Normal 0.0-7.0 [facility] ([place]) Comment on above: Performed By: #### A WARREN, PRO, CBC, ADIFF #### [address] [address] Lymphocyte, Absolute 1.2 10 3/mcL Normal 0.8-3.9 [facility] ([place]) Comment on above: Performed By: #### A WARREN, PRO, CBC, ADIFF #### [address] [address] Lymphocytes/100 WBC (Bld) 17.9 % Normal 10.0-50.0 [facility] ([place]) Comment on above: Performed By: #### A WARREN, PRO, CBC, ADIFF #### [address] [address] Monocyte, Absolute 0.6 10 3/mcL Normal 0.2-1.0 [facility] ([place]) Comment on above: Performed By: #### A WARREN, PRO, CBC, ADIFF #### [address] [address] Monocytes/100 WBC (Bld) 8.7 % Normal 1.7-13.0 [facility] ([place]) Comment on above: Performed By: #### A WARREN, PRO, CBC, ADIFF #### [address] [address] Neutrophils/100 WBC (Bld) 66.5 % Normal 37.0-80.0 [facility] ([place]) Comment on above: Performed By: #### A WARREN, PRO, CBC, ADIFF #### [address] [address] .GFRon 10-24-2023 GFR 71 ml/min/1.73sqm Normal [facility] ([place]) Comment on above: Result Comment: GFR Population [...] #### A WARREN, PRO, CBC, ADIFF #### [address] [address] GFR Non- 58 ml/min/1.73sqm Normal [facility] ([place]) Comment on above: Result Comment: GFR Population [...] #### A WARREN, PRO, CBC, ADIFF #### [address] [address] .MDWon 12-07-2022 Monocyte Distribution Width 19.40 Normal 0.00-20.00 [facility] ([place]) Comment on above: Result Comment: For ED adult patients suspected of sepsis, MDW<=20.0 does not rule out sepsis or risk of sepsis Performed By: #### A WARREN, PRO, CBC, ADIFF #### [place] [address] .NEUABSon 12-07-2022 Neutrophil, Absolute 4.5 10 3/mcL Normal 2.9-6.2 [facility] ([place]) Comment on above: Performed By: #### A WARREN, PRO, CBC, ADIFF #### [place] [address] .Urinalysis Microscopic (AO) on 12-07-2022 UA Bacteria 1+ /hpf Abnormal [facility] ([place]) Comment on above: Performed By: #### A WARREN, PRO, CBC, ADIFF #### [place] [address] UA Mucous 2+ /hpf Normal [facility] ([place]) Comment on above: Performed By: #### A WARREN, PRO, CBC, ADIFF #### [place] [address] UA RBC 5-10 Abnormal None Seen [facility] ([place]) Comment on above: Performed By: #### A WARREN, PRO, CBC, ADIFF #### [place] [address] UA Squam Epithelial 0-5 Abnormal None Seen [facility] ([place]) Comment on above: Performed By: #### A WARREN, PRO, CBC, ADIFF #### [place] [address] UA WBC 0-5 Abnormal None Seen [facility] ([place]) Comment on above: Performed By: #### A WARREN, PRO, CBC, ADIFF #### [place] [address] CBCon 12-07-2022 Erythrocyte distribution width (RBC) [Ratio] 17.3 % High 11.5-14.5 [facility] ([place]) Comment on above: Performed By: #### A WARREN, PRO, CBC, ADIFF #### [place] [address] Hematocrit (Bld) [Volume fraction] 35.5 % Low 37.0-47.0 [facility] ([place]) Comment on above: Performed By: #### A WARREN, PRO, CBC, ADIFF #### [address] [address] Hgb 12.1 G/dL Normal 12.0-16.0 [facility] ([place]) Comment on above: Performed By: #### A WARREN, PRO, CBC, ADIFF #### [address] [address] MCH (RBC) [Entitic mass] 28.2 pg Normal 27.0-31.2 [facility] ([place]) Comment on above: Performed By: #### A WARREN, PRO, CBC, ADIFF #### [address] [address] MCHC 34.1 G/dL Normal 33.0-37.0 [facility] ([place]) Comment on above: Performed By: #### A WARREN, PRO, CBC, ADIFF #### [address] [address] MCV (RBC) [Entitic vol] 82.5 fL Normal 80.0-94.0 [facility] ([place]) Comment on above: Performed By: #### A WARREN, PRO, CBC, ADIFF #### [address] [address] Platelet 259 10 3/mcL Normal 130-400 [facility] ([place]) Comment on above: Performed By: #### A WARREN, PRO, CBC, ADIFF #### [address] [address] Platelet mean volume (Bld) [Entitic vol] 7.3 fL Low 7.4-10.4 [facility] ([place]) Comment on above: Performed By: #### A WARREN, PRO, CBC, ADIFF #### [address] [address] RBC 4.31 10 6/mcL Normal 4.20-5.40 [facility] ([place]) Comment on above: Performed By: #### A WARREN, PRO, CBC, ADIFF #### [address] [address] WBC 6.8 10 3/mcL Normal 4.6-10.8 [facility] ([place]) Comment on above: Performed By: #### A WARREN, PRO, CBC, ADIFF #### [address] [address] CMPon 12-07-2022 Albumin Level 3.6 G/dL Normal 3.5-5.0 [facility] ([place]) Comment on above: Performed By: #### A WARREN, PRO, CBC, ADIFF #### [address] [address] Albumin/Globulin [Mass ratio] 1.1 {ratio} Normal 1.1-2.5 [facility] ([place]) Comment on above: Performed By: #### A WARREN, PRO, CBC, ADIFF #### [address] [address] ALP [Catalytic activity/Vol] 157 U/L High 40-135 [facility] ([place]) Comment on above: Performed By: #### A WARREN, PRO, CBC, ADIFF #### [address] [address] ALT [Catalytic activity/Vol] 67 U/L High 14-59 [facility] ([place]) Comment on above: Performed By: #### A WARREN, PRO, CBC, ADIFF #### [address] [address] AST [Catalytic activity/Vol] 52 U/L High 10-40 [facility] ([place]) Comment on above: Performed By: #### A WARREN, PRO, CBC, ADIFF #### [address] [address] Bili Total 0.4 mg/dL Normal 0.2-1.0 [facility] ([place]) Comment on above: Result Comment: Use of this assay is not recommended for patients undergoing treatment with eltrombopag due to the potential for falsely elevated results. Performed By: #### A WARREN, PRO, CBC, ADIFF #### [address] [address] BUN/Creatinine Ratio 13 ratio Normal 7-27 [facility] ([place]) Comment on above: Performed By: #### A WARREN, PRO, CBC, ADIFF #### [address] [address] Calcium [Mass/Vol] 9.3 mg/dL Normal 8.4-10.2 [facility] ([place]) Comment on above: Performed By: #### A WARREN, PRO, CBC, ADIFF #### [address] [address] Chloride [Moles/Vol] 101 mmol/L Normal 98-107 [facility] ([place]) Comment on above: Performed By: #### A WARREN, PRO, CBC, ADIFF #### [address] [address] CO2 [Moles/Vol] 34 mmol/L High 22-29 [facility] ([place]) Comment on above: Performed By: #### A WARREN, PRO, CBC, ADIFF #### [address] [address] Creatinine [Mass/Vol] 0.98 mg/dL Normal 0.55-1.02 [facility] ([place]) Comment on above: Performed By: #### A WARREN, PRO, CBC, ADIFF #### [address] [address] Electrolyte Balance 4.0 mEq/L Normal 4.0-15.0 [facility] ([place]) Comment on above: Performed By: #### A WARREN, PRO, CBC, ADIFF #### [address] [address] Globulin 3.3 G/dL Normal [facility] ([place]) Comment on above: Performed By: #### A WARREN, PRO, CBC, ADIFF #### [address] [address] Glucose [Mass/Vol] 110 mg/dL High 70-105 [facility] ([place]) Comment on above: Performed By: #### A WARREN, PRO, CBC, ADIFF #### [address] [address] Potassium [Moles/Vol] 3.6 mmol/L Normal 3.5-5.1 [facility] ([place]) Comment on above: Performed By: #### A WARREN, PRO, CBC, ADIFF #### [id number] [place], [place] [address] Sodium [Moles/Vol] 139 mmol/L Normal 136-145 [facility] ([place]) Comment on above: Performed By: #### A WARREN, PRO, CBC, ADIFF #### [address] [address] Total Protein 6.9 G/dL Normal 6.4-8.2 [facility] ([place]) Comment on above: Performed By: #### A WARREN, PRO, CBC, ADIFF #### [address] [address] Urea nitrogen [Mass/Vol] 13 mg/dL Normal 7-18 [facility] ([place]) Comment on above: Performed By: #### A WARREN, PRO, CBC, ADIFF #### [address] [address] [address] ABD/PELVIS W/ IV CONTRAST ONLYon 12-07-2022 [...] 12/07/2022 10:52:41 AM Ordering Provider: SHARON BLAKELY [facility] ([place]) LABORATORYOrdered By: Mckenna Kerr on 12-07-2022 INR Coag (PPP) [Relative time] 3.0 {INR} Invalid Interpretation Code AO [facility] SS Comment on above: Interpretive Data: Deny zamarripa [employer] (CHEST, 1992, 102:312S-25S) [...] 12-07-2022 Lipase Level 28 U/L Normal 16-77 [facility] ([place]) Comment on above: Performed By: #### A WARREN, PRO, CBC, ADIFF #### [address] [address] PROon 12-07-2022 PT Coag (PPP) [Time] 34.7 s High 9.0-14.2 [facility] ([place]) Comment on above: Performed By: #### A WARREN, PRO, CBC, ADIFF #### [address] [address] PT International Ratio 3.0 Normal [facility] ([place]) Comment on above: Result Comment: [employer] (CHEST, 1992, 102:312S-25S) recommended therapeutic range for oral anticoagulant therapy is: LOW RISK: Prophylaxis of venous thrombosis INR: 2.0-3.0 Treatment of pulmonary embolism 2.0-3.0 Prevention of systemic embolism 2.0-3.0 HIGH RISK: Mechanical prosthetic valves 2.5-3.5 Performed By: #### A WARREN, PRO, CBC, ADIFF #### [address] [address] UAon 12-07-2022 Color (U) Yellow Normal [facility] ([place]) Comment on above: Performed By: #### A WARREN, PRO, CBC, ADIFF #### [place] [address] Glucose (U) [Mass/Vol] Negative Normal Negative [facility] ([place]) Comment on above: Performed By: #### A WARREN, PRO, CBC, ADIFF #### [place] [address] Ketones Ql (U) Negative Normal Negative [facility] ([place]) Comment on above: Performed By: #### A WARREN, PRO, CBC, ADIFF #### [place] [address] UA Appear Clear Normal Clear [facility] ([place]) Comment on above: Performed By: #### A WARREN, PRO, CBC, ADIFF #### [address] [address] UA Blood Moderate Abnormal Negative [facility] ([place]) Comment on above: Performed By: #### A WARREN, PRO, CBC, ADIFF #### [address] [address] UA Leuk Est Negative Normal Negative [facility] ([place]) Comment on above: Performed By: #### A WARREN, PRO, CBC, ADIFF #### [address] [address] UA Nitrite Negative Normal Negative [facility] ([place]) Comment on above: Performed By: #### A WARREN, PRO, CBC, ADIFF #### [address] [address] UA pH 6.0 Normal 5.0 - 8.0 [facility] ([place]) Comment on above: Performed By: #### A WARREN, PRO, CBC, ADIFF #### [address] [address] UA Protein Negative Normal Negative [facility]) Comment on above: Performed By: #### A WARREN, PRO, CBC, ADIFF #### [address] [address] UA Spec Grav 1.025 Normal 1.015-1.02 5 [facility] ([place]) Comment on above: Performed By: #### A WARREN, PRO, CBC, ADIFF #### [address] [address] UA Specimen Type Clean Catch Normal [facility] ([place]) Comment on above: Performed By: #### A WARREN, PRO, CBC, ADIFF #### [address] [address] UA Urobilinogen 0.2 E.U./dL Normal 0.2-1.0 [facility]) Comment on above: Performed By: #### A WARREN, PRO, CBC, ADIFF #### [address] [address] Urobilinogen (U) [Mass/Vol] Negative Normal Negative [facility]) Comment on above: Performed By: #### A WARREN, PRO, CBC, ADIFF #### [address] [address] Final Surgical Pathology Rep [facility] 11-09-2022 Final Surgical Pathology Report . Pathology Reports Accession: Collected Date/Time: Received Date/Time: Pathologist: [id number] 11/05/2022 08:00 EDT 11/08/2022 10:12 EDT MD [...] All parts labelled with patient name and [id number] Received in formalin labeled gastric antrum are 3 means tissue fragments measuring 0.2 to 0.4 x 0.2 cm. TS-1 Mo Barillas Hay Stacker Operator/ Dr. Lorenzo Martinez, Pathologist Dictated by Rupal Malone MICROSCOPIC DESCRIPTION: The microscopic examination is performed, except in the case of Gross Only. Electronically Signed by Pathology Report verified by [facility] MARCELA LE MD Sign out Date: 11/09/2022 15:43 Performing Lab: [facility], [address] [place] [address] Pathology Dept Disclaimer If ancillary studies were utilized, the following Laboratory Developed Test (LDT) disclaimer will apply: Under CLIA requirements, [facility] is qualified to perform high complexity testing. For all ancillary stains, positive and negative controls stain appropriately. Performance characteristics of immunohistochemical and chromogenic in-situ hybridization tests have been determined by [facility]. These tests are used for clinical purposes, They should not be regarded as investigational or for research. Normal [facility] ([place]) .Auto Diffon 09-29-2022 Basophil, Absolute 0.0 10 3/mcL Normal 0.0-0.2 [facility] ([place]) Comment on above: Performed By: #### A WARREN, PRO, CBC, ADIFF #### [address] [address] Basophils/100 WBC (Bld) 0.6 % Normal 0.0-2.5 [facility]) Comment on above: Performed By: #### A WARREN, PRO, CBC, ADIFF #### [id number] [place], [place] [address] Eosinophil, Absolute 0.5 10 3/mcL High 0.0-0.4 [facility] ([place]) Comment on above: Performed By: #### A WARREN, PRO, CBC, ADIFF #### [address] [place], [place] [address] Eosinophils/100 WBC (Bld) 7.2 % High 0.0-7.0 [facility] ([place]) Comment on above: Performed By: #### A WARREN, PRO, CBC, ADIFF #### [address] [address] Lymphocyte, Absolute 1.7 10 3/mcL Normal 0.8-3.9 [facility] ([place]) Comment on above: Performed By: #### A WARREN, PRO, CBC, ADIFF #### [address] [address] Lymphocytes/100 WBC (Bld) 26.5 % Normal 10.0-50.0 [facility] ([place]) Comment on above: Performed By: #### A WARREN, PRO, CBC, ADIFF #### [address] [address] Monocyte, Absolute 0.5 10 3/mcL Normal 0.2-1.0 [facility] ([place]) Comment on above: Performed By: #### A WARREN, PRO, CBC, ADIFF #### [address] [address] Monocytes/100 WBC (Bld) 8.7 % Normal 1.7-13.0 [facility] ([place]) Comment on above: Performed By: #### A WARREN, PRO, CBC, ADIFF #### [address] [address] Neutrophils/100 WBC (Bld) 57.0 % Normal 37.0-80.0 [facility] ([place]) Comment on above: Performed By: #### A WARREN, PRO, CBC, ADIFF #### [address] [address] .MDWon 09-29-2022 Monocyte Distribution Width 15.89 Normal 0.00-20.00 [facility] ([place]) Comment on above: Result Comment: For ED adult patients suspected of sepsis, MDW<=20.0 does not rule out sepsis or risk of sepsis Performed By: #### A WARREN, PRO, CBC, ADIFF #### [address] [address] .NEUABSon 09-29-2022 Neutrophil, Absolute 3.6 10 3/mcL Normal 2.9-6.2 [facility] ([place]) Comment on above: Performed By: #### A WARREN, PRO, CBC, ADIFF #### [place] [phone] APTTon 09-29-2022 aPTT Coag (Bld) [Time] 54.8 s High 25.0-35.0 [facility] ([place]) Comment on above: Result Comment: For Heparin anticoagulation therapy, the recommended therapeutic range is: 50.6-87.4 seconds. Patients on heparin therapy may have an extreme result. Performed By: #### A WARREN, PRO, CBC, ADIFF #### [place] [phone] Heparin dose (APTT) Coumadin PO Normal [facility] ([place]) Comment on above: Performed By: #### A WARREN, PRO, CBC, ADIFF #### [place] [id number] CBCon 09-29-2022 Erythrocyte distribution width (RBC) [Ratio] 16.5 % High 11.5-14.5 [facility] ([place]) Comment on above: Performed By: #### A WARREN, PRO, CBC, ADIFF #### [place] [phone] Hematocrit (Bld) [Volume fraction] 30.3 % Low 37.0-47.0 [facility] ([place]) Comment on above: Performed By: #### A WARREN, PRO, CBC, ADIFF #### [place] [phone] Hgb 10.1 G/dL Low 12.0-16.0 [facility] ([place]) Comment on above: Performed By: #### A WARREN, PRO, CBC, ADIFF #### [address] [address] MCH (RBC) [Entitic mass] 25.4 pg Low 27.0-31.2 [facility] ([place]) Comment on above: Performed By: #### A WARREN, PRO, CBC, ADIFF #### [place] [phone] MCHC 33.3 G/dL Normal 33.0-37.0 [facility] ([place]) Comment on above: Performed By: #### A WARREN, PRO, CBC, ADIFF #### [address] [address] MCV (RBC) [Entitic vol] 76.4 fL Low 80.0-94.0 [facility] ([place]) Comment on above: Performed By: #### A WARREN, PRO, CBC, ADIFF #### [address] [address] Platelet 300 10 3/mcL Normal 130-400 [facility] ([place]) Comment on above: Performed By: #### A WARREN, PRO, CBC, ADIFF #### [address] [address] Platelet mean volume (Bld) [Entitic vol] 7.0 fL Low 7.4-10.4 [facility] ([place]) Comment on above: Performed By: #### A WARREN, PRO, CBC, ADIFF #### [address] [address] RBC 3.96 10 6/mcL Low 4.20-5.40 [facility] ([place]) Comment on above: Performed By: #### A WARREN, PRO, CBC, ADIFF #### [address] [address] WBC 6.3 10 3/mcL Normal 4.6-10.8 [facility] ([place]) Comment on above: Performed By: #### A WARREN, PRO, CBC, ADIFF #### [address] [address] PROon 09-29-2022 PT Coag (PPP) [Time] 38.9 s High 9.1-14.2 [facility] ([place]) Comment on above: Performed By: #### A WARREN, PRO, CBC, ADIFF #### [address] [address] PT International Ratio 3.3 Normal [facility] ([place]) Comment on above: Result Comment: [employer] (CHEST, 1991, 102:312S-25S) recommended therapeutic range for oral anticoagulant therapy is: LOW RISK: Prophylaxis of venous thrombosis INR: 2.0-3.0 Treatment of pulmonary embolism 2.0-3.0 Prevention of systemic embolism 2.0-3.0 HIGH RISK: Mechanical prosthetic valves 2.5-3.5 Performed By: #### A WARREN, PRO, CBC, ADIFF #### [address] [address] .Auto Diffon 08-12-2022 Basophil, Absolute 0.0 10 3/mcL Normal 0.0-0.2 [facility] ([place]) Comment on above: Performed By: #### G FR, CBC, MDW, TROPHS, ADIFF, ANEU, PRO, BMP, PBNP #### [address] [address] Basophils/100 WBC (Bld) 0.5 % Normal 0.0-2.5 [facility] ([place]) Comment on above: Performed By: #### G FR, CBC, MDW, TROPHS, ADIFF, ANEU, PRO, BMP, PBNP #### [address] [address] Eosinophil, Absolute 0.4 10 3/mcL Normal 0.0-0.4 [facility] ([place]) Comment on above: Performed By: #### G FR, CBC, MDW, TROPHS, ADIFF, ANEU, PRO, BMP, PBNP #### [address] [address] Eosinophils/100 WBC (Bld) 4.9 % Normal 0.0-7.0 [facility] ([place]) Comment on above: Performed By: #### G FR, CBC, MDW, TROPHS, ADIFF, ANEU, PRO, BMP, PBNP #### [address] [address] Lymphocyte, Absolute 1.9 10 3/mcL Normal 0.8-3.9 [facility] ([place]) Comment on above: Performed By: #### G FR, CBC, MDW, TROPHS, ADIFF, ANEU, PRO, BMP, PBNP #### [address] [address] Lymphocytes/100 WBC (Bld) 23.5 % Normal 10.0-50.0 [facility] ([place]) Comment on above: Performed By: #### G FR, CBC, MDW, TROPHS, ADIFF, ANEU, PRO, BMP, PBNP #### [address] [address] Monocyte, Absolute 0.6 10 3/mcL Normal 0.2-1.0 [facility] ([place]) Comment on above: Performed By: #### G FR, CBC, MDW, TROPHS, ADIFF, ANEU, PRO, BMP, PBNP #### [address] [address] Monocytes/100 WBC (Bld) 7.4 % Normal 1.7-13.0 [facility] ([place]) Comment on above: Performed By: #### G FR, CBC, MDW, TROPHS, ADIFF, ANEU, PRO, BMP, PBNP #### [address] [address] Neutrophils/100 WBC (Bld) 63.7 % Normal 37.0-80.0 [facility] ([place]) Comment on above: Performed By: #### G FR, CBC, MDW, TROPHS, ADIFF, ANEU, PRO, BMP, PBNP #### [address] [address] .GFRon 08-12-2022 GFR 79 ml/min/1.73sqm Normal [facility] ([place]) Comment on above: Result Comment: GFR Population [...] #### A WARREN, PRO, CBC, ADIFF #### [address] [address] GFR Non- 65 ml/min/1.73sqm Normal [facility] ([place]) Comment on above: Result Comment: GFR Population [...] #### A WARREN, PRO, CBC, ADIFF #### [place] [address] .MDWon 08-12-2022 Monocyte Distribution Width 16.21 Normal 0.00-20.00 [facility] ([place]) Comment on above: Result Comment: For ED adult patients suspected of sepsis, MDW<=20.0 does not rule out sepsis or risk of sepsis Performed By: #### G FR, CBC, MDW, TROPHS, ADIFF, ANEU, PRO, BMP, PBNP #### [address] [address] .NEUABSon 08-12-2022 Neutrophil, Absolute 5.1 10 3/mcL Normal 2.9-6.2 [facility] ([place]) Comment on above: Performed By: #### G FR, CBC, MDW, TROPHS, ADIFF, ANEU, PRO, BMP, PBNP #### [place] [phone] .Urinalysis Microscopic (AO) on 08-12-2022 UA CA Ox Crystal 1+ /hpf Normal [facility] ([place]) Comment on above: Performed By: #### A WARREN, PRO, CBC, ADIFF #### [address] [address] UA RBC 0-5 Abnormal None Seen [facility] ([place]) Comment on above: Performed By: #### A WARREN, PRO, CBC, ADIFF #### [address] [address] UA Squam Epithelial 0-5 Abnormal None Seen [facility] ([place]) Comment on above: Performed By: #### A WARREN, PRO, CBC, ADIFF #### [address] [address] UA WBC 0-5 Abnormal None Seen [facility] ([place]) Comment on above: Performed By: #### A WARREN, PRO, CBC, ADIFF #### [address] [address] BMPon 08-12-2022 BUN/Creatinine Ratio 20 ratio Normal 7-27 [facility] ([place]) Comment on above: Performed By: #### G DIONICIO BARGER, BARBARA, TROPHS, ADIFF, ANEU, PRO, BMP, PBNP #### [address] [address] Calcium [Mass/Vol] 9.6 mg/dL Normal 8.4-10.2 [facility] ([place]) Comment on above: Performed By: #### G , DIONICIO, BARBARA, TROPHS, ADIFF, ANEU, PRO, BMP, PBNP #### [address] [address] Chloride [Moles/Vol] 103 mmol/L Normal 98-107 [facility] ([place]) Comment on above: Performed By: #### G , DIONICIO, BARBARA, TROPHS, ADIFF, ANEU, PRO, BMP, PBNP #### [address] [address] CO2 [Moles/Vol] 30 mmol/L High 22-29 [facility] ([place]) Comment on above: Performed By: #### G , DIONICIO, BARBARA, TROPHS, ADIFF, ANEU, PRO, BMP, PBNP #### [address] [address] Creatinine [Mass/Vol] 0.89 mg/dL Normal 0.55-1.02 [facility] ([place]) Comment on above: Performed By: #### G , DIONICIO, BARBARA, TROPHS, ADIFF, ANEU, PRO, BMP, PBNP #### [address] [address] Electrolyte Balance 8.0 mEq/L Normal 4.0-15.0 [facility] ([place]) Comment on above: Performed By: #### G , DIONICIO, BARBARA, TROPHS, ADIFF, ANEU, PRO, BMP, PBNP #### [address] [address] Glucose [Mass/Vol] 105 mg/dL Normal 70-105 [facility] ([place]) Comment on above: Performed By: #### G , DIONICIO, BARBARA, TROPHS, ADIFF, ANEU, PRO, BMP, PBNP #### [address] [address] Potassium [Moles/Vol] 3.3 mmol/L Low 3.5-5.1 [facility] ([place]) Comment on above: Performed By: #### G , DIONICIO, BARBARA, TROPHS, ADIFF, ANEU, PRO, BMP, PBNP #### [address] [address] Sodium [Moles/Vol] 141 mmol/L Normal 136-145 [facility] ([place]) Comment on above: Performed By: #### G , DIONICIO, BARBARA, TROPHS, ADIFF, ANEU, PRO, BMP, PBNP #### [address] [address] Urea nitrogen [Mass/Vol] 18 mg/dL Normal 7-18 [facility] ([place]) Comment on above: Performed By: #### G , BARBARA GREENBERG, TROPHS, ADIFF, ANEU, PRO, BMP, PBNP #### [place] [phone] CBCon 08-12-2022 Erythrocyte distribution width (RBC) [Ratio] 15.8 % High 11.5-14.5 [facility] ([place]) Comment on above: Performed By: #### G , DIONICIO, BARBARA, TROPHS, ADIFF, ANEU, PRO, BMP, PBNP #### [place] [address] Hematocrit (Bld) [Volume fraction] 34.6 % Low 37.0-47.0 [facility] ([place]) Comment on above: Performed By: #### G , DIONICIO, BARBARA, TROPHS, ADIFF, ANEU, PRO, BMP, PBNP #### [place] [address] Hgb 11.4 G/dL Low 12.0-16.0 [facility] ([place]) Comment on above: Performed By: #### G , DIONICIO, BARBARA, ELEAZARS, ADIFF, ANEU, PRO, BMP, PBNP #### [place] [address] MCH (RBC) [Entitic mass] 25.7 pg Low 27.0-31.2 [facility] ([place]) Comment on above: Performed By: #### G , DIONICIO, BARBARA, TROPHS, ADIFF, ANEU, PRO, BMP, PBNP #### [place] [address] MCHC 32.8 G/dL Low 33.0-37.0 [facility] ([place]) Comment on above: Performed By: #### G , DIONICIO, BARBARA, TROPHS, ADIFF, ANEU, PRO, BMP, PBNP #### [place] [address] MCV (RBC) [Entitic vol] 78.4 fL Low 80.0-94.0 [facility] ([place]) Comment on above: Performed By: #### G , DIONICIO, BARBARA, TROPHS, ADIFF, ANEU, PRO, BMP, PBNP #### [address] [address] Platelet 300 10 3/mcL Normal 130-400 [facility] ([place]) Comment on above: Performed By: #### G FR, CBC, MDW, TROPHS, ADIFF, ANEU, PRO, BMP, PBNP #### [id number] [place], [place] [address] Platelet mean volume (Bld) [Entitic vol] 7.4 fL Normal 7.4-10.4 [facility] ([place]) Comment on above: Performed By: #### G FR, CBC, MDW, TROPHS, ADIFF, ANEU, PRO, BMP, PBNP #### [address] [address] RBC 4.42 10 6/mcL Normal 4.20-5.40 [facility] ([place]) Comment on above: Performed By: #### G FR, CBC, MDW, TROPHS, ADIFF, ANEU, PRO, BMP, PBNP #### [address] [address] WBC 7.9 10 3/mcL Normal 4.6-10.8 [facility] ([place]) Comment on above: Performed By: #### G FR, CBC, MDW, TROPHS, ADIFF, ANEU, PRO, BMP, PBNP #### [address] [address] LABORATORYOrdered By: Lyla Varma on 08-12-2022 Appearance [...] B (Bld) [Mass/Vol] 85 pg/mL Normal 0-125 [facility] ([place]) Comment on above: Result Comment: NT-p roBNP results of less than 300 pg/mL effectively rules out acute congestive heart failure with 99% negative predictive value. Performed By: #### A WARREN, PRO, CBC, ADIFF #### [address] [address] PROon 08-12-2022 PT Coag (PPP) [Time] 34.9 s High 9.1-14.2 [facility] ([place]) Comment on above: Performed By: #### G , DIONICIO, BARBAAR, TROPHS, ADIFF, ANEU, PRO, BMP, PBNP #### [address] [address] PT International Ratio 3.0 Normal [facility] ([place]) Comment on above: Result Comment: [employer] (CHEST, 1991, 102:312S-25S) recommended therapeutic range for oral anticoagulant therapy is: LOW RISK: Prophylaxis of venous thrombosis INR: 2.0-3.0 Treatment of pulmonary embolism 2.0-3.0 Prevention of systemic embolism 2.0-3.0 HIGH RISK: Mechanical prosthetic valves 2.5-3.5 Performed By: #### G , DIONICIO, BARBARA, TROPHS, ADIFF, ANEU, PRO, BMP, PBNP #### [address] [address] TROPHSon 08-12-2022 Troponin I High Sensitivity 16.5 ng/L Normal 0.0-51.4 [facility] ([place]) Comment on above: Performed By: #### A WARREN, PRO, CBC, ADIFF #### [address] [address] UAon 08-12-2022 Color (U) Yellow Normal [facility] ([place]) Comment on above: Performed By: #### A WARREN, PRO, CBC, ADIFF #### [address] [address] Glucose (U) [Mass/Vol] Negative Normal Negative [facility] ([place]) Comment on above: Performed By: #### A WARREN, PRO, CBC, ADIFF #### [address] [address] Ketones Ql (U) Negative Normal Negative [facility] ([place]) Comment on above: Performed By: #### A WARREN, PRO, CBC, ADIFF #### [address] [address] UA Appear Clear Normal Clear [facility] ([place]) Comment on above: Performed By: #### A WARREN, PRO, CBC, ADIFF #### [address] [address] UA Blood Moderate Abnormal Negative [facility] ([place]) Comment on above: Performed By: #### A WARREN, PRO, CBC, ADIFF #### [address] [address] UA Leuk Est Negative Normal Negative [facility] ([place]) Comment on above: Performed By: #### A WARREN, PRO, CBC, ADIFF #### [address] [address] UA Nitrite Negative Normal Negative [facility] ([place]) Comment on above: Performed By: #### A WARREN, PRO, CBC, ADIFF #### [address] [address] UA pH 5.5 Normal 5.0 - 8.0 [facility] ([place]) Comment on above: Performed By: #### A WARREN, PRO, CBC, ADIFF #### [address] [address] UA Protein Negative Normal Negative [facility] ([place]) Comment on above: Performed By: #### A WARREN, PRO, CBC, ADIFF #### [address] [address] UA Spec Grav >=1.030 Abnormal 1.015-1.02 5 [facility] ([place]) Comment on above: Performed By: #### A WARREN, PRO, CBC, ADIFF #### [address] [address] UA Specimen Type Clean Catch Normal [facility] ([place]) Comment on above: Performed By: #### A WARREN, PRO, CBC, ADIFF #### [address] [address] UA Urobilinogen 0.2 E.U./dL Normal 0.2-1.0 [facility] ([place]) Comment on above: Performed By: #### A WARREN, PRO, CBC, ADIFF #### [place] [id number] [place], [place] [address] Urobilinogen (U) [Mass/Vol] Negative Normal Negative [facility] ([place]) Comment on above: Performed By: #### A WARREN, PRO, CBC, ADIFF #### [address] [address] XR CHEST 1 VIEWon 08-12-2022 XR CHEST [...] Sign Date: 08/12/2022 7:19:21 PM Ordering Provider: BROOKE ESPINOZA [facility] ([place]) LABORATORYOrdered By: Junior Gaines on 08-09-2022 INR Coag (PPP) [Relative time] 2.0 {INR} Invalid Interpretation Code AO [facility] SS PT Coag (PPP) [Time] 23.1 s Invalid Interpretation Code 9.1 - 14.2 seconds AO [facility] SS PROon 08-09-2022 PT Coag (PPP) [Time] 23.1 s High 9.1-14.2 [facility] ([place]) Comment on above: Performed By: #### A WARREN, PRO, CBC, ADIFF #### [place] [id number] [place], [place] [address] PT International Ratio 2.0 Normal [facility]) Comment on above: Result Comment: [employer] (CHEST, 1992, 102:312S-25S) recommended therapeutic range for oral anticoagulant therapy is: LOW RISK: Prophylaxis of venous thrombosis INR: 2.0-3.0 Treatment of pulmonary embolism 2.0-3.0 Prevention of systemic embolism 2.0-3.0 HIGH RISK: Mechanical prosthetic valves 2.5-3.5 Performed By: #### A WARREN, PRO, CBC, ADIFF #### [address] [place] [id number] [place], [place] [address] LABORATORYOrdered By: Alyx Reno on 07-26-2022 INR Coag (PPP) [Relative time] 2.5 {INR} Invalid Interpretation Code AO [facility] SS Comment on above: Interpretive Data: Deny zamarripa [employer] (CHEST, 1991, 102:312S-25S) [...] Comment on above: Interpretive Data: Deny zamarripa [employer] (CHEST, 1991, 102:312S-25S) [...] Comment on above: Interpretive Data: Deny zamarripa [employer] (CHEST1991, 102:312S-25S) recommended [...] Comment on above: Interpretive Data: T dallin [employer] (CHEST, 1991, 102:312S-25S) recommended therapeutic range for oral anticoagulant therapy is: LOW RISK: Prophylaxis of venous thrombosis INR: 2.0-3.0 Treatment of pulmonary embolism 2.0-3.0 Prevention of systemic embolism 2.0-3.0 HIGH RISK: Mechanical prosthetic valves 2.5-3.5 PT Coag (PPP) [Time] 29.4 s High 9.1 - 1 4.2 seconds AO [facility] SS LABORATORYOrdered By: Royce Crowley on 2022 INR Coag (PPP) [Relative time] 2.1 {INR} Invalid Interpretation Code AO [facility] SS Comment on above: Interpretive Data: Deny zamarripa [employer] (CHEST, 1991, 102:312S-25S) recommended therapeutic range for oral anticoagulant therapy is: LOW RISK: Prophylaxis of venous thrombosis INR: 2.0-3.0 Treatment of pulmonary embolism 2.0-3.0 Prevention of systemic embolism 2.0-3.0 HIGH RISK: Mechanical prosthetic valves 2.5-3.5 PT Coag (PPP) [Time] 23.8 s High 9.1 - 1 4.2 seconds AO [facility] SS LABORATORYOrdered By: e-Zassi SYSTEM on 06-04-2022 Hematocrit (Bld) [Volume fraction] [...] Invalid Interpretation Code 98 - 110 mEq/L AH ADM SS CO2 [Moles/Vol] 34 mmol/L Invalid Interpretation Code 22 - 32 mEq/L AH ADM SS Creatinine [Mass/Vol] 0.94 mg/dL Invalid Interpretation Code 0.50 - 1.20 mg/dL AH ADM SS Electrolyte Balance 1.0 mEq/L Invalid Interpretation Code 4.0 - 15.0 mEq/L AH ADM SS GFR/1.73 sq M.predicted among blacks MDRD (S/P/Bld) [Vol rate/Area] ml/min/1.73sqm Invalid Interpretation Code AH Chemistry S GFR/1.73 sq M.predicted among non-blacks [...] AH ADM SS Urea nitrogen/Creatinine [Mass ratio] 25.5 [...] Anion gap [Moles/Vol] 3 mmol/L Low 5-16 [facility] Comment on above: Order Comment: Speci damián Type: BLOOD SPECIMEN Ordering Facility: [facility] Address: [address] [place] [address] Performed By: #### 2 4321-2 #### [facility] CLIA [id number] [address] [place] [address] [place] Calcium [Mass/Vol] 8.8 mg/dL Normal 8.5-10.5 [facility] Comment on above: Order Comment: Speci men Type: BLOOD SPECIMEN Ordering Facility: [facility] Address: [address] [place] [address] Performed By: #### 2 4321-2 #### [facility] CLIA [id number] [address] [place] [address] [place] Chloride [Moles/Vol] 106 mmol/L Normal 98-107 [facility] Comment on above: Order Comment: Candelariai men Type: BLOOD SPECIMEN Ordering Facility: [facility] Address: [address] [place] [address] Performed By: #### 2 4321-2 #### [facility] CLIA [id number] [address] [place] [address] [place] CO2 [Moles/Vol] 32 mmol/L Normal 21-32 [facility] Comment on above: Order Comment: Dominic steel Type: BLOOD SPECIMEN Ordering Facility: [facility] Address: [address] [place] [address] Performed By: #### 2 4321-2 #### [facility] CLIA [id number] [address] [place] [address] [place] Creatinine [Mass/Vol] 0.72 mg/dL Normal 0.51-0.95 [facility] Comment on above: Order Comment: Candelariai men Type: BLOOD SPECIMEN Ordering Facility: [facility] Address: [address] [place] [address] Result Comment: Javed ents receiving either N-Acetylcysteine (NAC) or Metamizole prior to venipuncture, may have falsely depressed results. Performed By: #### 2 4321-2 #### [facility] CLIA [id number] [address] [place] [address] ESTIMATED GLOMERULAR FILTRATION RATE 98 mL/min/1.73m??? Normal >=60 [facility] Comment on above: Order Comment: Dominic steel Type: BLOOD SPECIMEN Ordering Facility: [facility] Address: [address] [place] [address] Result Comment: Susie mated Glomerular Filtration Rate [...] GFR. Performed By: #### 2 4321-2 #### [facility] CLIA [id number] [address] [place] [address] STATES OF [facility] Glucose [Mass/Vol] 97 mg/dL Normal 70-100 [facility] Comment on above: Order Comment: Dominic steel Type: BLOOD SPECIMEN Ordering Facility: [facility] Address: [address] [place] [address] Result Comment: The [place] [employer] (ADA) provides guidance for cutoff [...] Standards of Medical Care in Diabetes 2016, [place] [employer]. Diabetes Care. 2016.39(Suppl 1). Results may be falsely elevated after the administration of Sulfapyridine. Results may be falsely depressed after the administration of Sulfasalazine. Performed By: #### 2 4321-2 #### [facility] CLIA [id number] [address] [place] [address] [place] Potassium [Moles/Vol] 4.1 mmol/L Normal 3.5-5.1 [facility] Comment on above: Order Comment: Speci men Type: BLOOD SPECIMEN Ordering Facility: [facility] Address: [address] [address] Performed By: #### 2 4321-2 #### [facility] CLIA [id number] [address] [place] [address] [place] Sodium [Moles/Vol] 141 mmol/L Normal 136-145 [facility] Comment on above: Order Comment: Speci men Type: BLOOD SPECIMEN Ordering Facility: [facility] Address: [address] Performed By: #### 2 4321-2 #### [facility] CLIA [id number] [address] [place] [address] [place] Urea nitrogen [Mass/Vol] 19 mg/dL Normal 7-26 [facility] Comment on above: Order Comment: Speci men Type: BLOOD SPECIMEN Ordering Facility: [facility] Address: [address] Performed By: #### 2 4321-2 #### [facility] CLIA [id number] [address] [place] [address] [place] CBC W Auto Differential pane l (Bld)on 09-08-2021 Basophils (Bld) [#/Vol] 0.03 10*3/uL Normal <0.11 [facility] Comment on above: Order Comment: Speci men Type: BLOOD SPECIMEN Ordering Facility: [facility] Address: [address] [place] [address] Performed By: #### 5 7021-8 #### [facility] CLIA [id number] [address] [place] [address] [place] Basophils/100 WBC (Bld) 0.4 % Normal [facility] Comment on above: Order Comment: Speci men Type: BLOOD SPECIMEN Ordering Facility: [facility] Address: [address] [place] [address] Performed By: #### 5 7021-8 #### [facility] CLIA [id number] [address] [place] [address] [place] Differential cell count method Nom (Bld) Auto Normal [facility] Comment on above: Order Comment: Speci men Type: BLOOD SPECIMEN Ordering Facility: [facility] Address: [address] [place] [address] Performed By: #### 5 7021-8 #### [facility] CLIA [id number] [address] [place] [address] [place] Eosinophils (Bld) [#/Vol] 0.37 10*3/uL Normal <0.46 [facility] Comment on above: Order Comment: Speci men Type: BLOOD SPECIMEN Ordering Facility: [facility] Address: [address] [place] [address] Performed By: #### 5 7021-8 #### [facility] CLIA [id number] [address] [place] [address] [place] Eosinophils/100 WBC (Bld) 5.2 % Normal [facility] Comment on above: Order Comment: Speci men Type: BLOOD SPECIMEN Ordering Facility: [facility] Address: [address] [place] [address] Performed By: #### 5 7021-8 #### [facility] CLIA [id number] [address] [place] [address] [place] Erythrocyte distribution width (RBC) [Ratio] 13.1 % Normal 11.5-15.0 [facility] Comment on above: Order Comment: Speci men Type: BLOOD SPECIMEN Ordering Facility: [facility] Address: [address] [place] [address] Performed By: #### 5 7021-8 #### [facility] CLIA [id number] [address] [place] [address] [place] Hematocrit (Bld) [Volume fraction] 30.7 % Low 36.0-46.0 [facility] Comment on above: Order Comment: Speci men Type: BLOOD SPECIMEN Ordering Facility: [facility] Address: [address] [place] [address] Performed By: #### 5 7021-8 #### [facility] CLIA [id number] [address] [place] [address] [place] Hemoglobin (Bld) [Mass/Vol] 10.7 g/dL Low 11.5-15.5 [facility] Comment on above: Order Comment: Speci men Type: BLOOD SPECIMEN Ordering Facility: [facility] Address: [address] [place] [address] Performed By: #### 5 7021-8 #### [facility] CLIA [id number] [address] [place] [address] [place] IMMATURE GRAN % 0.3 % Normal [facility] Comment on above: Order Comment: Speci men Type: BLOOD SPECIMEN Ordering Facility: [facility] Address: [address] [place] [address] Performed By: #### 5 7021-8 #### [facility] CLIA [id number] [address] [place], [place] [address] [place] IMMATURE GRAN ABS <0.03 Normal <0.10 [facility] Comment on above: Order Comment: Speci men Type: BLOOD SPECIMEN Ordering Facility: [facility] Address: [address] [place] [address] Performed By: #### 5 7021-8 #### [facility] CLIA [id number] [address] [place] [address] [facility] [place] Lymphocytes (Bld) [#/Vol] 1.48 10*3/uL Normal 1.00-4.00 [facility] Comment on above: Order Comment: Speci men Type: BLOOD SPECIMEN Ordering Facility: [facility] Address: [address] [place] [address] Performed By: #### 5 7021-8 #### [facility] CLIA [id number] [address] [place] [address] Lymphocytes/100 WBC (Bld) 20.6 % Normal [facility] Comment on above: Order Comment: Speci men Type: BLOOD SPECIMEN Ordering Facility: [facility] Address: [address] [place] [address] Performed By: #### 5 7021-8 #### [facility] CLIA [id number] [address] [place] [address] [place] MCH (RBC) [Entitic mass] 30.7 pg Normal 26.0-34.0 [facility] Comment on above: Order Comment: Speci men Type: BLOOD SPECIMEN Ordering Facility: [facility] Address: [address] [place], [place] [address] Performed By: #### 5 7021-8 #### [facility] CLIA [id number] [address] [place] [address] MCHC (RBC) [Mass/Vol] 34.9 g/dL Normal 30.5-36.0 [facility] Comment on above: Order Comment: Speci men Type: BLOOD SPECIMEN Ordering Facility: [facility] Address: [address] [place], [place] [address] Performed By: #### 5 7021-8 #### [facility] CLIA [id number] [address] [place] [address] [place] MCV (RBC) [Entitic vol] 88.2 fL Normal 80.0-100.0 [facility] Comment on above: Order Comment: Speci men Type: BLOOD SPECIMEN Ordering Facility: [facility] Address: [address] [place] [address] Performed By: #### 5 7021-8 #### [facility] CLIA [id number] [address] [place] [address] [place] Monocytes (Bld) [#/Vol] 0.53 10*3/uL Normal <0.87 [facility] Comment on above: Order Comment: Speci men Type: BLOOD SPECIMEN Ordering Facility: [facility] Address: [address] [place] [address] Performed By: #### 5 7021-8 #### [facility] CLIA [id number] [address] [place] [address] [place] Monocytes/100 WBC (Bld) 7.4 % Normal [facility] Comment on above: Order Comment: Speci men Type: BLOOD SPECIMEN Ordering Facility: [facility] Address: [address] [place] [address] Performed By: #### 5 7021-8 #### [facility] CLIA [id number] [address] [place] [address] [place] Neutrophils (Bld) [#/Vol] 4.75 10*3/uL Normal 1.45-7.50 [facility] Comment on above: Order Comment: Speci men Type: BLOOD SPECIMEN Ordering Facility: [facility] Address: [address] [place] [address] Performed By: #### 5 7021-8 #### [facility] CLIA [id number] [address] [place] [address] [place] Neutrophils/100 WBC (Bld) 66.1 % Normal [facility] Comment on above: Order Comment: Speci men Type: BLOOD SPECIMEN Ordering Facility: [facility] Address: [address] Performed By: #### 5 7021-8 #### [facility] CLIA [id number] [address] [place] [address] [place] Nucleated RBC (Bld) [#/Vol] 10*3/uL Normal <0.01 [facility] Comment on above: Order Comment: Speci men Type: BLOOD SPECIMEN Ordering Facility: [facility] Address: [address] [place], [place] [address] Performed By: #### 5 7021-8 #### [facility] CLIA [id number] [address] [place] [address] [place] Nucleated RBC/100 WBC (Bld) [Ratio] 0.0 /100 WBC Normal [facility] Comment on above: Order Comment: Speci men Type: BLOOD SPECIMEN Ordering Facility: [facility] Address: [address] [place], [place] [address] Performed By: #### 5 7021-8 #### [facility] CLIA [id number] [address] [place] [address] [place] Platelet mean volume (Bld) [Entitic vol] 9.3 fL Normal 9.0-12.7 [facility] Comment on above: Order Comment: Speci men Type: BLOOD SPECIMEN Ordering Facility: [facility] Address: [address] [place], [place] [address] Performed By: #### 5 7021-8 #### [facility] CLIA [id number] [address] [place] [address] [place] Platelets (Bld) [#/Vol] 221 10*3/uL Normal 150-400 [facility] Comment on above: Order Comment: Speci men Type: BLOOD SPECIMEN Ordering Facility: [facility] Address: [address] [place], [place] [address] Performed By: #### 5 7021-8 #### [facility] CLIA [id number] [address] [place], [place] [address] [facility] RBC (Bld) [#/Vol] 3.48 10*6/uL Low 3.90-5.20 [facility] Comment on above: Order Comment: Speci men Type: BLOOD SPECIMEN Ordering Facility: [facility] Address: [address] [place] [address] Performed By: #### 5 7021-8 #### [facility] [place] [id number] [address] [place], [place] [address] [facility] WBC (Bld) [#/Vol] 7.18 10*3/uL Normal 3.70-11.00 [facility] Comment on above: Order Comment: Speci men Type: BLOOD SPECIMEN Ordering Facility: [facility] Address: [address] [place] [address] Performed By: #### 5 7021-8 #### [facility] [place] [id number] [address] [place], [place] [address] [facility] ED NOTEon 09-08-2021 ED NOTE HNO ID: [id number] Author: Ivan Potter RN Service: ? Author Type: Registered Nurse Type: ED Notes Filed: 09/08/2021 3:42 PM Note Text: Pt discharged. NAD noted. Pt awake and alert speaking complete sentences. All belongings with pt. [facility] ED NOTE HNO ID: [id number] Author: Quoc Hermosillo, Medic Service: ? 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 Type: ED Notes Filed: 09/08/2021 1:22 PM Note Text: Bed: 44-ED Expected date: 09/08/21 Expected time: Means of arrival: Comments: triage Normal [facility] ED PROV NOTEon 09-08-2021 ED PROV NOTE HNO ID: [id number] Author: Mejia Yen MD Service: Emergency Medicine Author Type: Physician Type: ED Provider Notes Filed: 09/08/2021 3:03 PM Note Text: ED Provider Note Patient Name: João Mujica : 1965 SERVICE DATE: 09/08/21 History Patient presents with: Chest Pain: x4days, [facility] Patient complaining of chest pain, [...] HISTORY Procedure Laterality Date - CHOLECYSTECTOMY 1992 [place] - EGD TRANSORAL BIOPSY SINGLE/MULTIPLE 10/20/10 - GSTR RSTCV W/O BYP OTH/THN [place]-BANDED GSTP 1993 [place] - 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 Curiel - LIG/TRNSXJ FLP TUBE ABDL/VAG APPR UNI/BI 1991 [place] - PAST SURGICAL HISTORY OF LIPOSUCTION, TUMMY TUCK - PAST SURGICAL HISTORY OF 2004 ORIF femur, [facility] - TOTAL ABDOMINAL HYSTERECT W/WO RMVL TUBE OVARY 2004 Hysterectomy, LUZ -- ovaries intact, Dr. Luz Garcia in [place] FAMILY HISTORY Problem Relation Age of Onset - Coronary Artery Disease Mother CAD, no [place]; first diagnosed mid-50's? - Coronary Artery Disease Maternal Grandmother [place], CAD - Coronary Artery Disease Maternal Grandfather [place], CAD - None Father UNKNOWN --- - [...] Interventions: ECG (more content not included)... Normal [facility] TROPONIN I HIGH SENSITIVITYo n 09-08-2021 Tropinin I.cardiac panel High sensitivity method 16.6 pg/mL Normal 0.0-34.0 [facility] Comment on above: Order Comment: Dominic steel Type: BLOOD SPECIMEN Ordering Facility: [facility] Address: [address] [place] [id number] Result Comment: This assay uses different antibodies than our current assay, and assays, even by the same dock supervisor may recognize different regions of the antibody and cannot be used interchangeably. Expect results of this assay to run higher than the previous assay. Performed By: #### H STROP #### [facility] CLIA [id number] [address] [place], [place] [address] [facility] LABORATORYOrdered By: Nadia Rider on [...] 14.3 seconds AO Coag SS MSCon 01-13-2021 [facility] DATE OF SERVICE: REASON FOR VISIT: Right [...] HEENT examination reveals she has tenderness in [facility] PATIENT NAME: JOÃO MUJICA [address] [place] MEDICAL REC #: [id number] [place] [address] [facility] REPORT [facility] PHYSICIAN the right preauricular [...] if there is any abnormal symptom, she [facility] PATIENT NAME: JOÃO MUJICA [address] [place] MEDICAL REC #: [id number] [place] [address] [facility] REPORT [facility] PHYSICIAN must go to the hospital for further evaluation and care. The patient understands and agrees. Her questions were answered to her satisfaction. She was discharged in stable condition. Eric Huff MD [id number] [facility] File#: [id number] END OF DOCUMENT / CHANGE LOG FOLLOWS Last Edited By Elec. Signed By Eric Huff MD #PAWPR Eric Huff MD #PAWPR on 01/15/2021 08:52 ET on 01/15/2021 08:52 ET Revision Number - 2 Verified/Reviewed by 01/15/2152 RADAMES [facility] PATIENT NAME: JOÃO MUJICA [address] [place] MEDICAL REC #: [id number] [place] [address] [facility] REPORT [facility] PHYSICIAN Normal [facility] CDLECHOon 07-07-2020 [facility] [id number] CLI ECHOCARD ECHOCARDIOGRAM [place] [id number] [facility] [place] [address] Noninvasive Cardiac Diagnostics Adult Echocardiogram Report Name: JOÃO MUJICA Study Date: 07/07/2020 08:14 AMBP: 121/74 mmHg [facility] 1965 Gender: Female Height: 64 in Age: 55 yrs Ethnicity: [place] Weight: 170 lb Accession No. [id number] No. [id number] Reason For Study: CHRONIC ISCHEMIC HEART DISEASE [...] motion is normal. There is no thrombus. [facility] PATIENT NAME: JOÃO MUJICA [address] [facility] [place] MEDICAL REC #: [id number] [place] [address] ADMIT DATE: DISCHARGE DATE: ATTENDING PHY: Brooke Velazquez MD ECHOCARDIOGRAM REPORT Left Atrium/Atrial Septum: [...] LV mass(C)d: SV(Teich): MV E-F Ao root [facility] PATIENT NAME: JOÃO MUJICA [address] [place] MEDICAL REC #: [id number] [place] [address] ADMIT DATE: DISCHARGE DATE: ATTENDING PHY: Brooke Velazquez MD ECHOCARDIOGRAM REPORT 192.0 grams 135.5 [...] EZEQUIEL(I,A): 2.1 cm2 EZEQUIEL(I,D): 2.1 cm2 EZEQUIEL(V,A): [facility] PATIENT NAME: JOÃO MUJICA [address] [place] MEDICAL REC #: [id number] [place] [address] ADMIT DATE: DISCHARGE DATE: ATTENDING PHY: Brooke Velazquez MD ECHOCARDIOGRAM REPORT 1.8 cm2 EZEQUIEL(V,D): [...] cm/sec 10 (more content not included)... Normal [facility] ECHOCARDIOGRAM REPORT Normal [facility] [place] PTon 06-12-2018 INR Coag RelTime (PPP) 6.4 {INR} Critically abnormal 0.9-1.1 [facility] Comment on above: Result Comment: Eufemiat ical result successfully called to and read back Martha Morillo_ 06/11/2018 22:22:29 EDTand reported byPJB_. INR Recommended Therapeutic ranges: Prophylaxis/treatment of DVT and PE..........2.0-3.0 Prevention of systemic embolism.................2.0-3.0 Mechanical prosthetic values........................2.5-3.5 CRITICAL VALUE.........................................> 4.0 NOTE: New methodology started 02/27/2018 Performed By: #### 2 [id number] #### PAUL Kumaro [facility] [place] [address] Prothrombin time (PT) Coag time (PPP) 77.5 second(s) High 9.7-12.7 [facility] Comment on above: Result Comment: NOTE : New reference range established on 02/27/2018 due to change in methodology. Performed By: #### 2 [id number] #### PAUL RodriguezHemo [facility] [place] [address] XR Chest AP Portableon 06-12 XR Chest AP Portable Exam Date/Time: 06/11/2018 22:16 EDT Reason for Exam: Chest pain Report STUDY: XR Chest AP Portable; 06/11/2018 10:16 pm INDICATION: Chest pain. COMPARISON: None. ACCESSION NUMBER(S): [id number] ORDERING CLINICIAN: Chance [place] FINDINGS: Sternotomy wires [...] am Signed by: Alayna Jarrell MD Technologist: [facility] Normal [facility] Auto Diffon 06-11-2018 Basophils #/vol (Bld) 0.0 E3/mcL Normal 0.0-0.2 [facility] Comment on above: Order Comment: Order Added by Discern Expert. Performed By: #### 2 [id number] #### PAUL Kumaro [facility] [place] [address] Basophils/100 WBC (Bld) 0.2 % Normal 0.0-2.0 [facility] Comment on above: Order Comment: Order Added by Discern Expert. Performed By: #### 2 [id number] #### PAUL RodriguezHemo [facility] [place] [address] Eos Absolute 0.3 E3/mcL Normal 0.0-0.7 [facility] Comment on above: Order Comment: Order Added by Discern Expert. Performed By: #### 2 [id number] #### PAUL RemHemo [address] [place] [address] Eosinophils/100 WBC (Bld) 2.3 % Normal 0.0-11.0 [facility] Comment on above: Order Comment: Order Added by Discern Expert. Performed By: #### 2 [id number] #### PAUL RemHemo [address] [place] [address] Lymphocytes #/vol (Bld) 2.2 E3/mcL Normal 1.2-3.4 [facility] [facility] Comment [facility]: Order Comment: Order Added by Discern Expert. Performed By: #### 2 [id number] #### PAUL RemHemo [address] [place] [address] Lymphocytes/100 WBC (Bld) 19.3 % Low 20.0-55.0 [facility] Comment on above: Order Comment: Order Added by Discern Expert. Performed By: #### 2 [id number] #### PAUL RemHemo [address] [place] [address] Borden Absolute 0.8 E3/mcL High 0.0-0.7 [facility] Comment on above: Order Comment: Order Added by Discern Expert. Performed By: #### 2 [id number] #### PAUL RemHemo [address] [place] [address] Monocytes/100 WBC (Bld) 7.3 % Normal 0.0-10.0 [facility] Comment on above: Order Comment: Order Added by Discern Expert. Performed By: #### 2 [id number] #### PAUL RemHemo [address] [place] [address] Neutro Absolute 8.1 E3/mcL High 1.4-6.5 [facility] Comment on above: Order Comment: Order Added by Discern Expert. Performed By: #### 2 [id number] #### PAUL RemHemo [address] [place] [address] Neutro Auto 70.9 % Normal 37.0-75.0 [facility] Comment on above: Order Comment: Order Added by Discern Expert. Performed By: #### 2 [id number] #### PAUL RemHemo [address] [place] [id number] BNP.on 06-11-2018 Natriuretic peptide B mass conc (Bld) 94 pg/mL Normal <=100 [facility] Comment on above: Result Comment: Noti ce: [...] patient's BNP level. Performed By: #### C [id number] #### PAUL [employer] [address] [place], [place] [id number] CBC w/ Auto Diffon Erythrocyte distribution width Ratio (RBC) 13.7 % Normal 11.5-14.5 [facility] Comment on above: Performed By: #### 2 [id number] #### PAUL RemHemo [facility] [place] [phone] Hematocrit Volume Fraction (Bld) 36.2 % Normal 36.0-48.0 [facility] Comment on above: Performed By: #### 2 [id number] #### PAUL RemHemo [facility] [place] [phone] Hemoglobin mass conc (Bld) 12.3 g/dL Normal 12.0-16.0 [facility] Comment on above: Performed By: #### 2 [id number] #### PAUL RemHemo [address] [place] [address] MCH Entitic mass (RBC) 30.5 pg Normal 27.0-31.0 [facility] Comment on above: Performed By: #### 2 [id number] #### PAUL RemHemo [address] [place] [address] MCHC mass conc (RBC) 34.1 g/dL Normal 33.0-37.0 [facility] Comment on above: Performed By: #### 2 [id number] #### PAUL RemHemo [facility] [place] [phone] MCV Entitic volume (RBC) 89.4 fL Normal 78.0-100.0 [facility] Comment on above: Performed By: #### 2 [id number] #### PAUL RodriguezHemo [address] [place] [phone] Platelet mean volume Entitic volume (Bld) 7.7 fL Normal 7.4-11.0 [facility] Comment on above: Performed By: #### 2 [id number] #### PAUL RodriguezHemo [address] [place], [place] [id number] Platelets #/vol (Bld) 253 E3/mcL Normal 130-400 [facility] Comment on above: Performed By: #### 2 [id number] #### PAUL RodriguezHemo [facility] [place] [phone] RBC #/vol (Bld) 4.05 E6/mcL Normal 3.90-5.40 [facility] Comment on above: Performed By: #### 2 [id number] #### PAULMono RodriguezHemo [address] [place], [place] [phone] WBC #/vol (Bld) 11.5 E3/mcL High 3.6-11.0 [facility] Comment on above: Performed By: #### 2 [id number] #### PAUL RodriguezHemo [address] [place], [place] [phone] CMPon 06-11-2018 Albumin mass conc 3.9 g/dL Normal 3.4-5.0 [facility] Comment on above: Performed By: #### 2 [id number] #### PAUL [employer] [address] [place], [place] [phone] Albumin/Globulin mass ratio 1.4 {ratio} Normal 1.1-1.9 [facility] Comment on above: Performed By: #### 2 [id number] #### PAULMono RodriguezChem [facility] [place] [phone] Alk Phos 91 Int._Unit/L Normal 33-110 [facility] Comment on above: Performed By: #### 2 [id number] #### PAUL RodriguezPhillip [address] [place] [phone] ALT enzyme act/vol 12 Int._Unit/L Normal 7-45 [facility] Comment on above: Performed By: #### 2 [id number] #### PAUL [employer] [address] [place] [address] Anion gap molar conc 9 mmol/L Low 10-20 [facility] Comment on above: Performed By: #### 2 [id number] #### PAUL [employer]Chem [address] [place] [address] AST enzyme act/vol 16 Int._Unit/L Normal 9-39 [facility] Comment on above: Performed By: #### 2 [id number] #### PAUL [employer] [address] [place] [address] Bili Total 0.40 mg/dL Normal 0.00-1.20 [facility] Comment on above: Performed By: #### 2 [id number] #### PAUL [employer] [address] [place] [address] Calcium mass conc 9.1 mg/dL Normal 8.6-10.3 [facility] Comment on above: Performed By: #### 2 939117 #### PAUL [employer] [address] [place] [address] Chloride molar conc 105 mmol/L Normal 98-107 [facility] Comment on above: Performed By: #### 2 [id number] #### PAUL [employer] [address] [place] [address] CO2 molar conc 29.0 mmol/L Normal 21.0-32.0 [facility] Comment on above: Performed By: #### 2 [id number] #### PAUL [employer] [address] [place] [address] Creatinine mass conc 0.7 mg/dL Normal 0.5-1.1 [facility] Comment on above: Performed By: #### 2 [id number] #### PAUL [employer] [address] [place] [address] Globulin mass conc (S) 3.0 g/dL Normal 2.0-4.0 [facility] Comment on above: Performed By: #### 2 [id number] #### PAUL [employer] [address] [place] [address] Glucose mass conc 85 mg/dL Normal 70-99 [facility] Comment on above: Performed By: #### 2 [id number] #### PAUL [employer] [address] [place] [address] Potassium molar conc 4.0 mmol/L Normal 3.5-5.3 [facility] Comment on above: Performed By: #### 2 [id number] #### PAUL [employer] [address] [place] [address] Protein mass conc 6.6 g/dL Normal 6.4-8.2 [facility] Comment on above: Performed By: #### 2 [id number] #### PAUL [employer] [address] [place] [address] Sodium molar conc 139 mmol/L Normal 136-145 [facility] Comment on above: Performed By: #### 2 [id number] #### PAUL [employer] [address] [place] [address] Urea nitrogen mass conc 17 mg/dL Normal 6-23 [facility] Comment on above: Performed By: #### 2 [id number] #### PAUL [employer] [address] [place] [address] Urea nitrogen/Creatinine mass ratio 24.3 ratio Normal 5.4-30.0 [facility] Comment on above: Performed By: #### 2 [id number] #### PAUL [employer] [address] [place] [address] Troponin-Ion 06-11-2018 Troponin I.cardiac mass conc 0.01 ng/mL Normal 0.00-0.03 [facility] Comment on above: Performed By: #### 2 [id number] #### PAUL [employer] [address] [place] [address] eGFRon 06-11-2018 GFR/1.73 sq M predicted among non-blacks MDRD vol rate/area (S/P/Bld) mL/min/{1.73_m2} Normal [facility] Comment on above: Order Comment: Order added by Discern Expert. Performed By: #### 1 [id number] #### PAUL [employer] [address] [place] [address] Lab Report: Basic Metabolic Profile (BMP)on 08-25-2016 Anion gap 8 mmol/L Invalid Interpretation Code 5-15 [facility] Work Phone: [phone] BUN/Creatinine Ratio 18.9 RATIO Invalid Interpretation Code 10-20 [employer] Work Phone: [phone] Calcium 9.9 mg/dL Invalid Interpretation Code 8.5-10.1 [employer] Work Phone: [phone] Chloride 102 mmol/L Invalid Interpretation Code 98-107 [facility] Work Phone: [phone] CO2 30.0 mmol/L Invalid Interpretation Code 21.0-32.0 [facility] Work Phone: [phone] Creatinine 0.90 mg/dL Invalid Interpretation Code 0.55-1.02 [facility] Work Phone: [phone] eGFR (non-black) 85 mL/min/{1.73_m2} Invalid Interpretation Code >60 [facility] Work Phone: [phone] eGFR (non-black) 70 mL/min/{1.73_m2} Invalid Interpretation Code >60 [facility] Work Phone: [phone] Glucose 112 mg/dL High 70-110 [facility] Work Phone: [phone] Potassium 3.9 mmol/L Invalid Interpretation Code 3.5-5.1 [facility] Work Phone: [phone] Sodium 140 mmol/L Invalid Interpretation Code 136-145 [facility] Work Phone: [phone] Urea nitrogen 17 mg/dL Invalid Interpretation Code 7-18 [facility] Work Phone: [phone] Office Visiton 07-02-2016 Documentation of current medications (procedure) Done Invalid Interpretation Code [facility] Work Phone: [phone] Fall risk assessment No Invalid Interpretation Code [facility] Work Phone: [phone] Tobacco smoking status NHIS Never smoker [facility] Work Phone: [phone] Tobacco use CPHS Never smoker Invalid Interpretation Code [facility] Work Phone: [phone] Clinical 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: Prelo chlorine cell tender 10-27-2015 Calcium [Mass/Vol] 9.5 mg/dL [facility] [employer] Work Phone: [phone] Chloride [Moles/Vol] 107 mmol/L [facility] Work Phone: [phone] CO2 (BldV) [Partial pressure] 30.0 mmol/L [facility] Work Phone: [phone] Creatinine [Mass/Vol] 0.86 mg/dL [facility] Work Phone: [phone] Glucose [Mass/Vol] 90 mg/dL [facility] Work Phone: [phone] Hematocrit (Bld) [Volume fraction] 41.0 % [facility] Work Phone: [phone] Hematocrit (HCT) 41.0 % Invalid Interpretation Code [facility] Work Phone: [phone] Hemoglobin (Bld) [Mass/Vol] 14.2 g/dL Invalid Interpretation Code [facility] Work Phone: [phone] Platelets 244 10*3/mm3 Invalid Interpretation Code [facility] Work Phone: [phone] Platelets (Bld) [#/Vol] 244 10*3/mm3 [facility] Work Phone: [phone] Potassium [Moles/Vol] 3.9 mmol/L [facility] Work Phone: [phone] Sodium [Moles/Vol] 143 mmol/L [facility] Work Phone: [phone] Urea nitrogen [Mass/Vol] 13 mg/dL [facility] Work Phone: [phone] Urea nitrogen/Creatinine [Mass ratio] 15.1 mg/mg [facility] Work Phone: [phone] WBC (Bld) [#/Vol] 7.5 10*3/uL [facility] Work Phone: [phone] WBC (Leukocytes) 7.5 10*3/uL Invalid Interpretation Code [facility] Work Phone: [phone] Lab Report: Prothrombin Time w/INRon 09-12-2015 PT Coag (PPP) [Time] 26.4 s High 11.7-14.[address] [facility] Work Phone: [phone] Office Visit: Warfarin Calco n 09-12-2015 INR Coag (Bld) [Relative time] Hospital lab Invalid Interpretation Code [facility] Work Phone: [phone] INR Coag (PPP) [Relative time] 2.5 {INR} [facility] Work Phone: [phone] INR in blood by coagulation 2.5 {INR} Invalid Interpretation Code [facility] Work Phone: [phone] INR in blood by coagulation 2.5 to 3.5 Invalid Interpretation Code [facility] Work Phone: [phone] international normalized ratio (INR) range 2.5 to 3.5 [facility] Work Phone: [phone] PT Coag (PPP) [Time] 26.4 s Invalid Interpretation Code [facility] Work Phone: [phone] Office Visiton 03-03-2015 Dietary management education, guidance, and counseling (procedure) yes Invalid Interpretation Code [facility] Work Phone: [phone] General cardiovascular disease 10Y risk [#] Anabel.Ginny'Agosthaley 7 % Invalid Interpretation Code [facility] Work Phone: [phone] Clinical 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on Left ventricular Ejection fraction 65 % Invalid Interpretation Code [facility] Work Phone: [phone] Lab Report: Prothrombin Time Fingerstickon 08-09-2014 PT Coag (PPP) [Time] 31.8 s High 11.9-14.[address] [facility] Work Phone: [phone] Clinical 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: Prelo chlorine cell tender 07-10-2014 Albumin [Mass/Vol] 3.4 g/dL Invalid Interpretation Code [facility] Work Phone: [phone] Alkaline phosphatase (ALP) 90 U/L Invalid Interpretation Code [facility] Work Phone: [phone] ALP (Bld) [Catalytic activity/Vol] 90 U/L [facility] Work Phone: [phone] ALT [Catalytic activity/Vol] 33 U/L Invalid Interpretation Code [facility] Work Phone: [phone] Anion gap [Moles/Vol] 7 mmol/L [facility] Work Phone: [phone] AST [Catalytic activity/Vol] 25 U/L Invalid Interpretation Code [facility] Work Phone: [phone] Bilirubin [Mass/Vol] 0.40 mg/dL Invalid Interpretation Code [facility] [employer] Work Phone: [phone] Cholesterol [Mass/Vol] 156 mg/dL Invalid Interpretation Code [facility] Work Phone: [phone] Cholesterol in HDL [Mass/Vol] 31 mg/dL Low [facility] Work Phone: [phone] Cholesterol in LDL [Mass/Vol] 67 mg/dL Invalid Interpretation Code [facility] Work Phone: [phone] Lipoprotein.pre-beta [Mass/Vol] 58 mg/dL High [facility] Work Phone: [phone] Protein [Mass/Vol] 6.7 g/dL Invalid Interpretation Code [facility] Work Phone: [phone] Triglyceride [Mass/Vol] 290 mg/dL High [facility] Work Phone: [phone] Office Visiton 06-13-2014 cardiac risk group B Invalid Interpretation Code [facility] Work Phone: [phone] Replaced Document: Raffi Murillo CG Observationson 06-13-2014 EKG QRS axis 16 deg [facility] Work Phone: [phone] electrocardiogram interpretation Sinus Rhythm WITHIN NORMAL LIMITS Invalid Interpretation Code [facility] Work Phone: [phone] GE use only - for [employer] import when terms are not otherwise specified 441 ms Invalid Interpretation Code [facility] Work Phone: [phone] Interpretation Sinus Rhythm WITHIN NORMAL LIMITS [facility] Work Phone: [phone] P Paloma 33 deg [facility] Work Phone: [phone] P wave axis, electrocardiogram 33 deg Invalid Interpretation Code [facility] [employer] Work Phone: [phone] [place] Interval 136 ms [facility] [employer] Work Phone: [phone] [place] interval, electrocardiogram 136 ms Invalid Interpretation Code [facility] Work Phone: [phone] Pulse (Heart Rate) 64 /min Invalid Interpretation Code [facility] [employer] Work Phone: [phone] QRS axis, electrocardiogram 16 deg Invalid Interpretation Code [facility] Work Phone: [phone] QRS Duration 94 ms [facility] Work Phone: [phone] QRS duration, electrocardiogram 94 ms Invalid Interpretation Code [facility] Work Phone: [phone] QT Interval new path ms [facility] Work Phone: [phone] QT interval, electrocardiogram new path ms Invalid Interpretation Code [facility] Work Phone: [phone] QTc Ervin 441 ms [facility] Work Phone: [phone] T [place]oma 57 deg [facility] Work Phone: [phone] T wave axis, electrocardiogram 57 deg Invalid Interpretation Code [facility] Work Phone: [phone] Vital Signs Date Time Vital Sign Value Performing Clinician Facility 04-19-2024 14:53-0500 Body temperature 97.1 [degF] KARRIE STAVROU Work Phone: [facility] 04-19-2024 14:53-0500 Diastolic blood pressure 70 mm[Hg] KARRIE STAVROU Work Phone: [facility] 04-19-2024 14:53-0500 Heart rate 58 /min KARRIE STAVROU Work Phone: [facility] 04-19-2024 14:53-0500 Respiratory rate 16 /min KARRIE STAVROU Work Phone: [facility] 04-19-2024 14:53-0500 SaO2% (BldA) [Mass fraction] 99 % KARRIE STAVROU Work Phone: [facility] 04-19-2024 14:53-0500 Systolic blood pressure 124 mm[Hg] KARRIE STAVROU Work Phone: [facility] 04-19-2024 12:35-0500 Body height 162.56 cm KARRIE STAVROU Work Phone: [facility] 04-19-2024 12:35-0500 Body mass index (BMI) [Ratio] 29.5 kg/m2 KARRIE STAVROU Work Phone: [facility] 04-19-2024 12:35-0500 Body weight 78.01 kg KARRIE STAVROU Work Phone: [facility] 03-29-2024 15:07-0500 Body temperature 98.2 [degF] KARRIE STAVROU Work Phone: [facility] 03-29-2024 15:07-0500 Diastolic blood pressure 68 mm[Hg] KARRIE STAVROU Work Phone: [facility] 03-29-2024 15:07-0500 Heart rate 83 /min KARRIE STAVROU Work Phone: [facility] 03-29-2024 15:07-0500 Respiratory rate 18 /min KARRIE STAVROU Work Phone: [facility] 03-29-2024 15:07-0500 SaO2% (BldA) [Mass fraction] 100 % KARRIE STAVROU Work Phone: [facility] 03-29-2024 15:07-0500 Systolic blood pressure 128 mm[Hg] KARRIE STAVROU Work Phone: [facility] 03-29-2024 14:51-0500 Body weight 81.5 kg KARRIE STAVROU Work Phone: [facility] 03-28-2024 16:42-0500 Inhaled oxygen flow rate 4 L/min KARRIE STAVROU Work Phone: [facility] 03-28-2024 14:31-0500 Body mass index (BMI) [Ratio] 30.8 kg/m2 KARRIE STAVROU Work Phone: [facility] 01-28-2024 08:22-0500 Body mass index (BMI) [Ratio] 31.4 kg/m2 KARRIE STAVROU Work Phone: [facility] 01-28-2024 08:22-0500 Body temperature 98.2 [degF] KARRIE STAVROU Work Phone: [facility] 01-28-2024 08:22-0500 Body weight 83.23 kg KARRIE STAVRMEY Work Phone: [facility] 01-28-2024 08:22-0500 Diastolic blood pressure 80 mm[Hg] KARRIE STAVROU Work Phone: [facility] 01-28-2024 08:22-0500 Heart rate 67 /min KARRIE STAVROU Work Phone: [facility] 01-28-2024 08:22-0500 SaO2% (BldA) [Mass fraction] 98 % KARRIE STAVRChlorogen Work Phone: [facility] 01-28-2024 08:22-0500 Systolic blood pressure 128 mm[Hg] KARRIE STAVROU Work Phone: [facility] 10-28-2023 14:17-0400 Body mass index (BMI) [Ratio] 31.76 kg/m2 Frederick Colvin SLATER APPRENTICE.CAREER PLACEMENT SPECIALIST Work Phone: [facility] 10-28-2023 14:17-0400 Body weight 83.92 kg Frederick Colvin SLATER APPRENTICE.CAREER PLACEMENT SPECIALIST Work Phone: [facility] 10-28-2023 13:35-0400 Body height 162.[address] Work Phone: [facility] 10-28-2023 13:35-0400 Body mass index (BMI) [Ratio] 31.76 kg/m2 Angela Humphries RD Work Phone: [facility] 10-28-2023 13:35-0400 Body weight 83.[address] Work Phone: [facility] 09-30-2023 10:00-0400 Body height 162.6 cm Jennifer Salas SLATER APPRENTICE.CAREER PLACEMENT SPECIALIST Work Phone: [facility] 09-30-2023 10:00-0400 Body mass index (BMI) [Ratio] 31.41 kg/m2 Jennifer Salas SLATER APPRENTICE.CAREER PLACEMENT SPECIALIST Work Phone: [facility] 09-30-2023 10:00-0400 Body weight 83.01 kg Jennifer Josue GREEN Work Phone: [facility] 07-28-2023 07:52-0400 Body height 162.6 cm Cherry Hernandez MD Work Phone: [facility] 07-28-2023 07:52-0400 Body mass index (BMI) [Ratio] 31.96 kg/m2 Cherry Hernandez MD Work Phone: [facility] 07-28-2023 07:52-0400 Body weight 84.46 kg Cherry Hernandez MD Work Phone: [facility] 07-28-2023 07:52-0400 Diastolic blood pressure 72 mm[Hg] Cherry Hernandez MD Work Phone: [facility] 07-28-2023 07:52-0400 Heart rate 68 /min Cherry Hernandez MD Work Phone: [facility] 07-28-2023 07:52-0400 Systolic blood pressure 126 mm[Hg] Cherry Hernandez MD Work Phone: [facility] 05-27-2023 09:09-0400 Body height 162.6 cm Cherry Hernandez MD Work Phone: [facility] 05-27-2023 09:09-0400 Body weight 87.64 kg Cherry Hernandez MD Work Phone: [facility] 05-27-2023 09:09-0400 Diastolic blood pressure 80 mm[Hg] Cherry Hernandez MD Work Phone: [facility] 05-27-2023 09:09-0400 Heart rate 70 /min Cherry Hernandez MD Work Phone: [facility] 05-27-2023 09:09-0400 Systolic blood pressure 134 mm[Hg] Cherry Hernandez MD Work Phone: [facility] 04-01-2023 09:26-0500 Body height 162.6 cm CARMEN MARES MD [facility] 04-01-2023 09:26-0500 Body temperature 97.7 [degF] CARMEN MARES MD [facility] 04-01-2023 09:26-0500 Body weight 84.1 kg CARMEN MARES MD [facility] 04-01-2023 09:26-0500 Diastolic Blood Pressure Non-Invasive 85 mm[Hg] CARMEN MARES MD [facility] 04-01-2023 09:26-0500 Heart rate 92 /min CARMEN MARES MD [facility] 04-01-2023 09:26-0500 Respiratory rate 18 /min CARMEN MARES MD [facility] 04-01-2023 09:26-0500 Systolic Blood Pressure Non-Invasive 123 mm[Hg] CARMEN MARES MD [facility] 02-25-2023 11:44-0500 Diastolic Blood Pressure Non-Invasive 65 mm[Hg] DR CHET AVILA MD [facility] 02-25-2023 11:44-0500 Heart rate 65 /min DR CHET AVILA MD [facility] 02-25-2023 11:44-0500 Respiratory rate 18 /min DR CHET AVILA MD [facility] 02-25-2023 11:44-0500 Systolic Blood Pressure Non-Invasive 127 mm[Hg] DR CHET AVILA MD [facility] 02-25-2023 11:29-0500 Diastolic Blood Pressure Non-Invasive 86 mm[Hg] DR CHET AVILA MD [facility] 02-25-2023 11:29-0500 Heart rate 67 /min DR CHET AVILA MD [facility] 02-25-2023 11:29-0500 Respiratory rate 17 /min DR CHET AVILA MD [facility] 02-25-2023 11:29-0500 Systolic Blood Pressure Non-Invasive 129 mm[Hg] DR CHET AVILA MD [facility] 02-25-2023 11:21-0500 Respiratory rate 22 /min DR CHET AVILA MD [facility] 02-25-2023 11:17-0500 Diastolic Blood Pressure Non-Invasive 62 mm[Hg] DR CHET AVILA MD [facility] 02-25-2023 11:17-0500 Heart rate 81 /min DR CHET AVILA MD [facility] 02-25-2023 11:17-0500 Systolic Blood Pressure Non-Invasive 107 mm[Hg] DR CHET AVILA MD [facility] 02-25-2023 11:11-0500 Body temperature 97.16 [degF] DR CHET AVILA MD [facility] 02-25-2023 11:05-0500 Respiratory Rate - Anes 13 br/min DR CHET AVILA MD [facility] 02-25-2023 11:00-0500 Respiratory Rate - Anes 16 br/min DR CHET AVILA MD [facility] 02-25-2023 10:55-0500 Respiratory Rate - Anes 14 br/min DR CHET AVILA MD [facility] 02-25-2023 07:49-0500 Body height 162.[address] CHET AVILA MD [facility] 02-25-2023 07:49-0500 Body weight [address] CHET AVILA MD [facility] 02-25-2023 07:49-0500 Body weight 31.81 kg/m2 DR CHET AVILA MD [facility] 02-25-2023 07:40-0500 Body height 162.[address] CHET AVILA MD [facility] 02-25-2023 07:40-0500 Body temperature 97.34 [degF] DR CHET AVILA MD [facility] 02-25-2023 07:40-0500 Body weight [address] CHET AVILA MD [facility] 02-25-2023 07:40-0500 Heart rate 82 /min DR CHET AVILA MD [facility] 12-07-2022 10:00-0400 Diastolic Blood Pressure Non-Invasive 79 1 NIDAL CHOUJAA DO [facility] 12-07-2022 10:00-0400 Heart rate 72 /min NIDAL CHOUJAA DO [facility] 12-07-2022 10:00-0400 Systolic Blood Pressure Non-Invasive 146 1 NIDAL CHOUJAA DO [facility] 12-07-2022 09:25-0400 Body temperature 98.78 [degF] NIDAL CHOUJAA DO [facility] 12-07-2022 09:25-0400 Diastolic Blood Pressure Non-Invasive 88 1 NIDAL CHOUJAA DO [facility] 12-07-2022 09:25-0400 Heart rate 79 /min NIDAL CHOUJAA DO [facility] 12-07-2022 09:25-0400 Respiratory rate 16 /min NIDAL CHOUJAA DO [facility] 12-07-2022 09:25-0400 Systolic Blood Pressure Non-Invasive 157 1 [facility] 08-12-2022 19:34-0400 Diastolic Blood Pressure Non-Invasive 78 1 BROOKE FROMMELT DO [facility] 08-12-2022 19:34-0400 Heart rate 68 /min BROOKE FROMMELT DO [facility] 08-12-2022 19:34-0400 Respiratory rate 18 /min BROOKE FROMMELT DO [facility] 08-12-2022 19:34-0400 Systolic Blood Pressure Non-Invasive 160 1 BROOKE FROMMELT DO [facility] 08-12-2022 17:02-0400 Blood Pressure Location BROOKE FROMMELT DO [facility] 08-12-2022 17:02-0400 Blood Pressure Method BROOKE FROMMELT D O [facility] 08-12-2022 17:02-0400 Body temperature 98.06 [degF] BROOKE FROMMELT DO [facility] 08-12-2022 17:02-0400 Diastolic Blood Pressure Non-Invasive 91 1 BROOKE FROMMELT DO [facility] 08-12-2022 17:02-0400 Heart rate 77 /min BROOKE ESPINOZA DO [facility] 08-12-2022 17:02-0400 Respiratory rate 18 /min BROOKE ESPINOZA DO [place] [facility] 08-12-2022 17:02-0400 Systolic Blood Pressure Non-Invasive 152 1 BROOKE ESPINOZA DO [facility] 06-04-2022 06:53-0400 Body temperature 98.06 [degF] TANNER TABOR DO [place] [facility] 06-04-2022 06:53-0400 Diastolic Blood Pressure Non-Invasive 74 1 TANNER TABOR DO [place] [facility] 06-04-2022 06:53-0400 Heart rate 64 /min TANNER TABOR DO [place] [facility] 06-04-2022 06:53-0400 Respiratory rate 16 /min TANNER TABOR DO [place] [facility] 06-04-2022 06:53-0400 Systolic Blood Pressure Non-Invasive 132 1 TANNER TABOR DO [place] [facility] 06-04-2022 02:49-0400 Blood Pressure Cuff Size TANNER SHARONA ROSA [place] [facility] 06-04-2022 02:49-0400 Blood Pressure Location TANNER SHARONA RSOA [place] [facility] 06-04-2022 02:49-0400 Blood Pressure Method TANNER TABOR DO [place] [facility] 06-04-2022 02:49-0400 Body temperature 98.06 [degF] TANNER SHARONA ROSA [place] [facility] 06-04-2022 02:49-0400 Diastolic Blood Pressure Non-Invasive 81 1 TANNER TABOR DO [facility] 06-04-2022 02:49-0400 Heart rate 70 /min TANNER TABOR DO [facility] 06-04-2022 02:49-0400 Mean blood pressure 91 mm[Hg] TANNER TABOR DO [address] [place] [address] 06-04-2022 02:49-0400 Respiratory rate 16 /min TANNER TABOR DO [address] [place] [address] 06-04-2022 02:49-0400 Systolic Blood Pressure Non-Invasive 116 1 TANNER TABOR DO [address] [place] [address] 06-03-2022 23:19-0400 Body temperature 98.42 [degF] TANNER TABOR DO [address] [place] [address] 06-03-2022 23:19-0400 Diastolic Blood Pressure Non-Invasive 71 1 TANNER TABOR DO [address] [place] [address] 06-03-2022 23:19-0400 Heart rate 69 /min TANNER TABOR DO [address] [place] [address] 06-03-2022 23:19-0400 Mean blood pressure 86 mm[Hg] TANNER TABOR DO [address] [place] [address] 06-03-2022 23:19-0400 Respiratory rate 14 /min TANNER TABOR DO [address] [place] [address] 06-03-2022 23:19-0400 Systolic Blood Pressure Non-Invasive 129 1 TANNER TABOR DO [address] [place] [address] 06-03-2022 15:23-0400 Body temperature 98.06 [degF] TANNER TABOR DO [address] [place] [address] 06-03-2022 15:23-0400 Mean blood pressure 83 mm[Hg] TANNER TABOR DO [address] [place] [address] 06-03-2022 14:48-0400 Body temperature 97.88 [degF] TANNER SHARONA DO [facility] 06-03-2022 14:45-0400 Body temperature 97.34 [degF] TANNER TABOR DO [facility] 06-03-2022 14:45-0400 Respiratory Rate - Anes 14 br/min TANNER TABOR DO [facility] 06-03-2022 14:40-0400 Body temperature 97.34 [degF] TANNER TABOR DO [facility] 06-03-2022 14:40-0400 Respiratory Rate - Anes 0 br/min TANNER TABOR DO [facility] 06-03-2022 14:35-0400 Body temperature 97.34 [degF] TANNER TABOR DO [facility] 06-03-2022 14:35-0400 Respiratory Rate - Anes 0 br/min TANNER TABOR DO [facility] 06-03-2022 10:48-0400 Blood Pressure Cuff Size TANNER TABOR DO [facility] 06-03-2022 10:48-0400 Blood Pressure Location TANNER SHARONA ROSA [facility] 06-03-2022 10:48-0400 Blood Pressure Method TANNER SHARONA ROSA [facility] 06-03-2022 10:48-0400 Heart rate 88 /min TANNER SHARONA ROSA [facility] 06-03-2022 06:39-0400 Blood Pressure Cuff Size TANNER TABOR DO [facility] 06-03-2022 06:39-0400 Blood Pressure Location TANNER SHARONA ROSA [facility] 06-03-2022 06:39-0400 Blood Pressure Method TANNER SHARONA ROSA [facility] 06-03-2022 06:39-0400 Heart rate 81 /min TANNER TABOR DO [facility] 06-02-2022 23:02-0400 Body temperature 98.06 [degF] TANNER TABOR DO [facility] 06-02-2022 20:05-0400 Body height 162.6 cm TANNER TABOR DO [facility] 06-02-2022 20:05-0400 Body weight 85.4 kg TANNER TABOR DO [facility] 06-02-2022 20:05-0400 Body weight 32.3 kg/m2 TANNER TABOR DO [facility] 02-11-2022 14:53-0500 Diastolic Blood Pressure Non-Invasive [address] MD [facility] 02-11-2022 14:53-0500 Heart rate 92 /min DR ARMANDO WAY MD [facility] 02-11-2022 14:53-0500 Reason For Taking VItal Signs DR ARMANDO WAY MD [facility] 02-11-2022 14:53-0500 Respiratory rate 18 /min DR ARMANDO WAY MD [facility] 02-11-2022 14:53-0500 Systolic Blood Pressure Non-Invasive [address] MD [facility] 02-11-2022 11:58-0500 Body temperature 98.42 [degF] DR ARMANDO WAY MD [facility] 02-11-2022 11:58-0500 Diastolic Blood Pressure Non-Invasive [address] MD [facility] 02-11-2022 11:58-0500 Heart rate 96 /min DR ARMANDO WAY MD [facility] 02-11-2022 11:58-0500 Respiratory rate 20 /min DR ARMANDO WAY MD [facility] 02-11-2022 11:58-0500 Systolic Blood Pressure Non-Invasive [address] MD [facility] 12-15-2021 02:34-0400 Body temperature 97.88 [degF] DR JENNIFER MINOR DO [facility] 12-15-2021 02:34-0400 Diastolic blood pressure 90 mm[Hg] DR JENNIFER MINOR DO [facility] 12-15-2021 02:34-0400 Heart rate 75 /min DR JENNIFER MINOR DO [facility] 12-15-2021 02:34-0400 Respiratory rate 18 /min DR JENNIFER MINOR DO [facility] 12-15-2021 02:34-0400 Systolic blood pressure 154 mm[Hg] DR JENNIFER MINOR DO [facility] 11-19-2021 18:37-0400 Diastolic blood pressure 84 mm[Hg] GARRETT MALONE MD [facility] 11-19-2021 18:37-0400 Heart rate 74 /min GARRETT MALONE MD [facility] 11-19-2021 18:37-0400 Respiratory rate 18 /min GARRETT MALONE MD [facility] 10-06-2022 18:37-0400 Systolic blood pressure 158 mm[Hg] GARRETT MALONE MD [facility] 11-19-2021 16:46-0400 Body temperature 98.42 [degF] GARRETT MALONE MD [facility] 11-19-2021 16:46-0400 Diastolic blood pressure 94 mm[Hg] GARRETT MALONE MD [facility] 11-19-2021 16:46-0400 Heart rate 76 /min GARRETT MALONE MD [facility] 11-19-2021 16:46-0400 Respiratory rate 20 /min GARRETT MALONE MD [facility] 11-19-2021 16:46-0400 Systolic blood pressure 170 mm[Hg] GARRETT MALONE MD [facility] 09-06-2021 20:24-0400 Diastolic blood pressure 81 mm[Hg] CHANCE DURESKA DO [facility] 09-06-2021 20:24-0400 Heart rate 68 /min CHANCE DURESKA DO [facility] 09-06-2021 20:24-0400 Mean blood pressure 100 mm[Hg] CHANCE DURESKA DO [facility] 09-06-2021 20:24-0400 Respiratory rate 12 /min CHANCE DURESKA DO [facility] 09-06-2021 20:24-0400 Systolic blood pressure 137 mm[Hg] CHANCE DURESKA DO [facility] 09-06-2021 19:40-0400 Diastolic blood pressure 78 mm[Hg] CHANCE DURESKA DO [facility] 09-06-2021 19:40-0400 Heart rate 69 /min CHANCE DURESKA DO [facility] 09-06-2021 19:40-0400 Mean blood pressure 101 mm[Hg] CHANCE DURESKA DO [facility] 09-06-2021 19:40-0400 Respiratory rate 14 /min CHANCE DURESKA DO [facility] 09-06-2021 19:40-0400 Systolic blood pressure 146 mm[Hg] CHANCE DURESKA DO [facility] 09-06-2021 18:35-0400 Body temperature 98.6 [degF] CHANCE DURESKA DO [facility] 09-06-2021 18:35-0400 Diastolic blood pressure 88 mm[Hg] CHANCE DURESKA DO [facility] 09-06-2021 18:35-0400 Heart rate 69 /min CHANCE DURESKA DO [facility] 09-06-2021 18:35-0400 Respiratory rate 18 /min CHANCE DURESKA DO [facility] 09-06-2021 18:35-0400 Systolic blood pressure 155 mm[Hg] CHANCE DURESKA DO [facility] 07-02-2016 14:35-0400 BMI (Body Mass Index) 30.96 kg/m2 [facility] [employer] Work Phone: 07-02-2016 14:35-0400 Body weight 81.83 kg [facility] Work Phone: 07-02-2016 14:35-0400 BP Diastolic 84 mm[Hg] [facility] Work Phone: 07-02-2016 14:35-0400 BP Systolic 130 mm[Hg] [facility] Work Phone: 07-02-2016 14:35-0400 Height 162.56 cm Kristyn [facility] [employer] Work Phone: 07-02-2016 14:35-0400 Pulse (Heart Rate) 60 /min [facility] Work Phone: 07-02-2016 14:35-0400 Respiratory Rate 18 /min [facility] Work Phone: 07-02-2016 14:35-0400 Weight 81.83 kg Tanner Ramirez MD [employer] Work Phone: 03-03-2015 16:02-0500 BSA (Body Surface Area) 1.94 m2 [facility] [employer] Work Phone: 06-13-2014 15:45-0400 Heart rate 64 /min Kristyn [facility] [employer] Work Phone: Encounters Encounter Date Encounter Type Care Provider Facility Start: 07-20-2024 ambulatory Marcel Chi Griffin Facility:[facility] Start: 07-15-2024 ambulatory Marcel Chi Griffin Facility:[facility] Start: 07-06-2024 End: 07-06-[address] [facility] -Laboratory Work Phone: Start: 07-06-2024 End: 07-06-2024 ambulatory [facility] Work Phone: Start: 05-25-2024 End: 06-13-[address] [facility] -[facility] Work Phone: Start: 05-25-2024 End: 06-13-2024 ambulatory Marcel Chi Griffin Facility:[facility] Start: 05-19-2024 End: 05-19-2024 ambulatory [facility] Work Phone: Start: 05-19-2024 End: 05-19-[address] Marcel Moya MD -Laboratory Work Phone: Start: 05-19-2024 End: 05-19-2024 ambulatory [facility] Facility:[facility] Start: 05-04-2024 End: 05-04-[address] [facility] -Labor[facility] Work Phone: Start: 05-04-2024 End: 05-04-2024 ambulatory [facility] Work Phone: Start: 04-19-2024 End: 04-19-[address] Marcel Moya MD -Medical Out Work Phone: Start: 04-19-2024 End: 04-19-2024 ambulatory KARRIE STAVROU Work Phone: [facility] Work Phone: Start: 04-19-2024 End: 04-19-2024 ambulatory KARRIE STAVROU Work Phone: [facility] Work Phone: Start: 04-19-2024 End: 04-19-[address] Marcel Moya MD -Cat Scan, [facility] Work Phone: Start: 04-19-2024 End: 04-19-2024 ambulatory Marcel Tristan Moya Facility:[facility] Start: 04-17-2024 End: 04-17-2024 ambulatory KARRIE STAVROU Work Phone: [facility] Work Phone: Start: 04-17-2024 End: 04-17-[address] Marcel Moya MD -Ultrasound, [facility] Work Phone: Start: 04-17-2024 End: 04-17-2024 ambulatory Marcel Chi Griffin Facility:[facility] Start: 04-13-2024 ambulatory Angela Wilcox ty:[facility] Start: 04-11-[address] Jasen Parra MD -Employee Health Start: 04-11-2024 ambulatory Marcel Chi Griffin Facility:[facility] Start: 04-11-2024 End: 04-11-[address] Karrie Kapadia MD -Laboratory Work Phone: Start: 04-10-2024 End: 04-11-2024 ambulatory KARRIEBatsheva KAPADIA Work Phone: [facility] Work Phone: Start: 04-10-2024 End: 04-10-2024 Patient encounter procedure KARRIE SHONNA Work Phone: -Laboratory Work Phone: Start: 04-10-2024 End: 04-10-2024 ambulatory [facility] Facility:[facility] Start: 04-06-2024 Encounter for genera l adult medical examination without abnormal findings [facility] Start: 04-05-2024 End: 04-13-2024 ambulatory [facility] Facility:[facility] Start: 04-05-2024 End: 04-13-2024 Discharged Recurring KARRIE GASPERMEY Work Phone: -Laboratory Work Phone: Start: 04-05-2024 End: 04-05-[address] Marcel Moya MD -Cat Scan, [facility] Work Phone: Start: 04-05-2024 End: 04-05-2024 ambulatory [facility] Facility:[facility] Start: 04-02-2024 End: 04-02-[address] Marcel Moya MD -Laboratory, Specimen Work Phone: Start: 04-02-2024 End: 04-02-2024 ambulatory [facility] Facility:[facility] Start: 03-29-2024 Non-patient / Non-visit Dr. Cme Wheeler [facility] Work Phone: Start: 03-28-2024 Non-patient / Non-visit Dr. Cem Wheeler [facility] Work Phone: Start: 03-28-2024 Non-patient / Non-visit Trung Stockton nd DO -[facility] Start: 03-28-2024 ambulatory Marcel Tannerok [facility] Start: 03-28-2024 End: 03-29-2024 Evaluation and management of inpatient Dr. Mejia Wheeler DO -Progressive Care Unit Work Phone: Start: 03-22-2024 End: 03-22-[address] Marcel Moya MD -Outpatient Bone Densitometry Work Phone: Start: 03-22-2024 End: 03-22-2024 ambulatory Marcel Moya Facility:[facility] Start: 03-05-2024 End: 03-05-[address] Karrie Kapadia MD -Laboratory Work Phone: Start: 03-05-2024 End: 03-05-2024 ambulatory Karrie Kapadia Facility:[facility] Start: 03-02-2024 End: 03-02-2024 Patient encounter procedure Angela Walker [place] [facility] Work Phone: Start: 03-02-2024 End: 03-02-2024 ambulatory Angela Walker Facility:[facility] Start: 03-02-2024 End: 03-02-[address] Marcel Moya MD -Laboratory, Phy Office 3rd Flr Start: 03-02-2024 End: 03-02-2024 ambulatory Marcel Tristan Moya Facility:[facility] Start: 02-21-2024 End: 02-21-[address] Marcel Moya MD -Laboratory, Phy Office 3rd Flr Start: 02-21-2024 End: 02-21-2024 ambulatory Marcel Moya Facility:[facility] Start: 01-31-2024 End: 01-31-2024 [facility] Start: 01-31-2024 End: 01-31-2024 Discharged Recurring KARRIE KAPADIA Work Phone: -Laboratory Work Phone: Start: 01-30-2024 End: 01-30-2024 Patient encounter procedure My Champion SWAGING MACHINE OPERATOR-C -Laboratory, Specimen Work Phone: Start: 01-30-2024 End: 01-30-2024 ambulatory My Champion Facility:[facility] Start: 01-28-2024 End: 01-28-2024 Patient encounter procedure My [facility] SWAGING MACHINE OPERATOR-C [facility] Work Phone: Start: 01-28-2024 End: 01-28-2024 ambulatory My Champion Facility:[facility] Start: 01-16-2024 End: 01-16-2024 Telephone encounter Cherry Hernandez MD Work Phone: [facility] Comment on above: MDT Start: 01-09-2024 End: 01-14-2024 Discharged Recurring KARRIE KAPADIA Work Phone: -Laboratory, Phy Office 3rd Flr Start: 01-09-2024 End: 01-14-2024 [facility]ulatory [facility] Start: 12-28-2023 End: 12-28-2023 ambulatory Jennifer Salas SLATER APPRENTICE.CAREER PLACEMENT SPECIALIST Work Phone: [facility] Start: 12-28-2023 End: 12-28-2023 Patient encounter procedure Jennifer Salas SLATER APPRENTICE.CAREER PLACEMENT SPECIALIST Work Phone: [facility] Comment on above: Fax Start: 12-07-2023 End: 12-07-2023 ambulatory [facility] Facility[facility] Start: 11-30-2023 End: 11-30-2023 ambulatory [facility] Start: 11-26-2023 End: 11-26-2023 ambulatory [facility] Start: 11-23-2023 End: 11-23-2023 Emergency department patient visit Tylor Velasquez Facility:[facility] Start: 11-23-2023 End: 12-15-2023 ambulatory Tacho Ochoa Facility:[facility] Start: 11-16-2023 End: 11-16-2023 ambulatory Tacho Ochoa Facility:[facility] Start: 11-09-2023 End: 11-09-2023 ambulatory Cherry Hernandez MD Work Phone: [facility] Start: 11-09-2023 End: 11-09-2023 Patient encounter procedure Cherry Hernandez MD Work Phone: [facility] Comment on above: Lab Start: 11-08-2023 End: 11-08-2023 ambulatory [facility] Facility:[facility] Start: 11-02-2023 End: 11-02-2023 Telephone encounter Frederick Colvin APRN.CAREER PLACEMENT SPECIALIST Work Phone: [facility] Comment on above: Appointment Start: 10-28-2023 End: 10-28-2023 Admission to same day surgery center Frederick Colvin APRN.CAREER PLACEMENT SPECIALIST Work Phone: [place] Comment on above: Gastroesophageal ref lux disease with esophagitis without hemorrhage (Primary Dx); History of bariatric surgery; Class 1 obesity with serious comorbidity and body mass index (BMI) of 31.0 to 31.9 in adult, unspecified obesity type; NATO (obstructive sleep apnea) Start: 10-28-2023 End: 10-28-2023 Patient encounter procedure Angela Humphries RD Work Phone: [facility] Comment on above: Class 1 obesity with serious comorbidity and body mass index (BMI) of 31.0 to 31.9 in adult, unspecified obesity type (Primary Dx) Start: 10-28-2023 End: 10-28-2023 Telemedicine consultation with patient Frederick Abarcadusty MARTINEZCAREER PLACEMENT SPECIALIST Work Phone: [facility] Start: 10-28-2023 End: 10-28-2023 ambulatory FREDERICK COLVIN Facility:[facility] Start: 10-25-2023 End: 10-25-2023 ambulatory Tacho Ochoa Facility:[facility] Start: 10-18-2023 End: 10-18-2023 Orders Only Jennifer Salas APRN.CAREER PLACEMENT SPECIALIST Work Phone: [facility] Comment on above: Increased PTH level (Primary Dx); Blood alkaline phosphatase increased compared with prior measurement Start: 10-14-2023 End: 10-14-2023 Subsequent hospital visit by physician [facility] Work Phone: Radiology Comment on above: Gastroesophageal ref lux disease with esophagitis without hemorrhage [K21.00] Start: 10-14-2023 End: 10-14-2023 ambulatory JENNIFER SALAS Facility:[facility] Start: 09-30-2023 Telephone encounter Cherry de la cruz MD Work Phone: [facility] Comment on above: Medical Clearance Start: 09-30-2023 End: 09-30-2023 Admission to same day surgery center Jennifer Salas APRN.CAREER PLACEMENT SPECIALIST Work Phone: [facility] Comment on above: Gastroesophageal ref lux disease with esophagitis without hemorrhage (Primary Dx); Helicobacter pylori infection; Class 1 obesity with serious comorbidity and body mass index (BMI) of 31.0 to 31.9 in adult, unspecified obesity type; History of bariatric surgery; History of mechanical aortic valve replacement; NATO (obstructive sleep apnea) Start: 09-30-2023 End: 09-30-2023 Telemedicine consultation with patient Jennifer Salas APRN.CAREER PLACEMENT SPECIALIST Work Phone: [facility] Start: 09-30-2023 End: 09-30-2023 ambulatory JENNIFER SALAS [facility] Start: 09-29-2023 ambulatory Tacho Ochoa Facility:[facility] Start: 09-25-2023 End: 09-25-2023 ambulatory Karrie Staalexander Facility:[facility] Start: 08-12-2023 ambulatory Cherry Hernandez MD Work Phone: [facility] Start: 08-12-2023 Patient encounter procedure Cherry Hernandez MD Work Phone: [facility] Comment on above: Ekg Start: 08-01-2023 Telephone encounter Jennifer lewis APRN.CAREER PLACEMENT SPECIALIST Work Phone: [facility] Comment on above: Patient Update Start: 07-29-2023 End: 07-29-2023 [facility] Start: 07-28-2023 Telephone encounter Cherry de la cruz MD Work Phone: [place] Comment on above: Appointment Appointment; Patient Question Start: 07-28-2023 End: 07-28-2023 Patient encounter procedure Cherry Hernandez MD Work Phone: [facility] Comment on above: Gastroesophageal ref lux disease with esophagitis without hemorrhage (Primary Dx); Helicobacter pylori infection; Class 1 obesity with serious comorbidity and body mass index (BMI) of 31.0 to 31.9 in adult, unspecified obesity type; History of bariatric surgery; History of mechanical aortic valve replacement; NATO (obstructive sleep apnea); Nutritional anemia Start: 07-28-2023 End: 07-28-2023 ambulatory CHERRY HERNANDEZ Facility:[facility] Start: 06-10-2023 Telephone encounter Cherry de la cruz MD Work Phone: [facility] Comment on above: Patient Update ([facility] ) Start: 05-27-2023 End: 05-27-2023 ambulatory [facility] Comment on above: Bariatric Seminar Start: 05-27-2023 E-mail encounter abdoul vyas caregiver [facility] Provider [facility] Start: 05-27-2023 Telephone encounter Cherry de la cruz MD Work Phone: [facility] Comment on above: Appointment Start: 05-27-2023 End: 05-27-2023 Patient encounter procedure Cherry Hernandez MD Work Phone: [facility] Comment on above: Helicobacter pylori infection (Primary Dx); Gastroesophageal reflux disease without esophagitis; History of bariatric surgery; Hx of aortic valve replacement, mechanical; NATO (obstructive sleep apnea); Class 1 obesity with serious comorbidity and body mass index (BMI) of 33.0 to 33.9 in adult, unspecified obesity type Start: 05-22-2023 ambulatory Cherry Hernandez MD Work Phone: [facility] Comment on above: Clarithromycin Start: 05-17-2023 Orders Only Jennifer alvarado SLATER APPRENTICE.CAREER PLACEMENT SPECIALIST Work Phone: [facility] Comment on above: Helicobacter pylori infection (Primary Dx) Start: 05-13-2023 Preprocedural examin ation done Jennifer Salas SLATER APPRENTICE.CAREER PLACEMENT SPECIALIST Work Phone: [facility] Work Phone: Start: 05-13-2023 Encounter for other preprocedural examination [facility] Start: 05-13-2023 ambulatory [facility] Facility: [facility] Start: 05-10-2023 End: 05-14-2023 [facility] Work Phone: Start: 05-10-2023 End: 05-14-2023 Discharged [facility] Work Phone: Start: 04-22-2023 ambulatory [facility] Facility: [facility] Start: 04-22-2023 End: 04-22-2023 Subsequent hospital visit by physician Gi/Gu [facility] (I-Stat) [facility] Comment on above: Gastroesophageal ref lux disease, unspecified whether esophagitis present [K21.9] Start: 04-01-2023 End: 04-01-2023 Emergency department patient visit CARMEN MARES MD [facility] Start: 03-11-2023 End: 03-11-2023 ambulatory [facility] Facility:[facility] Start: 03-04-2023 End: 03-04-[address] KARRIE KAPADIA MD Facility:B Start: 02-25-2023 End: 02-25-[address] CHET AVILA MD Facility:B Start: 02-25-2023 End: 02-25-[address] CHET AVILA MD [facility] Start: 12-07-2022 End: 12-07-2022 Emergency department patient visit SHARON BLAKELY DO [facility] Start: 11-05-2022 End: 11-05-[address] CHET AVILA MD Facility:B Start: 09-29-2022 End: 09-29-2022 Emergency department patient visit CARMEN GILESGuillerminaBJIAN Facility:B Start: 08-12-2022 End: 08-12-2022 Emergency department patient visit BROOKE ESPINOZA DO [facility] Start: 08-09-2022 End: 08-09-[address] KARRIE KAPADIA MD Facility:B Start: 08-09-2022 End: 08-09-[address] KARRIE KAPADIA MD [facility] Start: 07-26-2022 End: 06-26-2023 Lab-Standing Order DANIEL TRAORE [facility], CACP [facility] Start: 07-19-2022 End: 07-30-2023 Lab-Standing Order DR KARRIE KAPADIA MD [facility] Start: 06-02-2022 End: 06-04-2022 Evaluation and management of inpatient TANNER SHARONA DO [facility] Start: 04-30-2022 End: 04-30-[address] KARRIE KAPADIA MD [facility] Start: 03-26-2022 End: 03-26-[address] KARRIE KAPADIA MD [facility] Start: 02-11-2022 End: 02-11-2022 Emergency department patient visit DR ARMANDO WAY MD [facility] Start: 12-15-2021 End: 12-15-2021 Emergency department patient visit DR JENNIFER MINOR DO [facility] Start: 11-19-2021 End: 11-19-2021 Emergency department patient visit GARRETT MALONE MD [facility] Start: 11-13-2021 End: 11-13-[address] KARRIE KAPADIA MD [facility] Start: 10-08-2021 End: 10-12-2021 Outreach Lab ORLIN ROSALES SLATER APPRENTICE-CAREER PLACEMENT SPECIALIST [facility] Start: 09-06-2021 End: 09-06-2021 Emergency department patient visit CHANCE ROGERIO DO [facility] Start: 08-26-2021 End: 08-26-2021 Patient encounter procedure ZACKERY TRUONG DO [facility] Start: 06-18-2021 End: 06-18-[address] KARRIE KAPADIA MD [facility] Start: 05-19-2021 End: 06-13-2022 Lab-Standing Order DR KARRIE KAPADIA MD [facility] Start: 04-15-2021 End: 05-10-2022 Lab-Standing Order DR KARRIE KAPADIA MD [facility] Start: 01-14-2021 Patient encounter procedure Eric Huff MD Work Phone: [facility] Start: 01-14-2021 Progress Note Eric Huff MD Work Phone: [facility] Start: 06-11-2018 End: 06-12-2018 Emergency department patient visit Chance Ge Facility:[facility] Start: 06-11-2018 Patient encounter procedure Facility:[id number] Procedures Date Procedure Procedure Detail Performing Clinician Start: 05-19-2024 Vitamin D, 25-hydroxy measurement [facility] Comment on above: Vitamin D StatusDeficiency: <20 ng/mL (5 0nmol/L)Insufficiency: 20-30 ng/mL (50-75 nmol/L)Sufficiency: 30-100 ng/mL (75-250 nmol/L)Toxicity: >100 ng/mL (>250 nmol/L) Start: 04-19-2024 Clostridium difficile detection KARRIE STAV ROU Work Phone: Start: 04-19-2024 Lactoferrin measurement KARRIE STAELISABETOU Work Phone: Start: 04-19-2024 Measurement of occult blood in stool specimen using immunoassay KARRIE STAELISABETOU Work Phone: Start: 04-19-2024 Nucleic acid assay KARRIE STAELISABETOU Work Phone: Start: 04-19-2024 Ova OR parasites identification KARRIE STAV ROU Work Phone: Start: 04-19-2024 Urine culture KARRIE STAELISABETOU Work Phone: Start: 04-19-2024 Computed tomography of abdomen and pelvis with contrast KARRIE STAELISABETOU Work Phone: Start: 04-19-2024 Iadna-dna/rna gi pthgn multiplex probe tq 6-11 [facility] Start: 04-17-2024 Ultrasound elastography of liver KARRIE STA VRMEY Work Phone: Start: 04-11-2024 SARS-CoV-2, Influenza & RSV (PCR) KARRIE ST AVR Work Phone: Start: 04-05-2024 Computed tomography of abdomen and pelvis with contrast KARRIE STAELISABETOU Work Phone: Start: 04-02-2024 Iadna-dna/rna gi pthgn multiplex probe tq 6-11 [facility] Start: 04-02-2024 Clostridium difficile detection KARRIE MARIANGEL ROU Work Phone: Start: 04-02-2024 Lactoferrin measurement KARRIE STAELISABETOU Work Phone: Start: 04-02-2024 Measurement of occult blood in stool specimen using immunoassay KARRIE GASPER Work Phone: Start: 04-02-2024 Nucleic acid assay KARRIE GASPER Work Phone: Start: 04-02-2024 Ova OR parasites identification KARRIE MARIANGEL ROU Work Phone: Start: 04-02-2024 [facility] Comment on above: GFR Calc Start: 03-28-2024 Esophagogastroduodenoscopy KARRIE GASPER Work Phone: Start: 03-28-2024 Computed tomography of abdomen and pelvis with intravenous contrast KARRIE SHONNA Work Phone: Start: 03-28-2024 Plain X-ray abdomen KARRIE ELISABET Work Phone: Start: 03-28-2024 [facility]imated [facility] Start: 03-28-2024 Measurement of renal function [facility] Comment on above: GFR Calc Start: 03-22-2024 Bone density scan KARRIE GASPER Work Phone: Start: 03-02-2024 Urine culture KARRIE STAELISABETOU Work Phone: Start: 01-30-2024 Urine culture KARRIE STAEILSABET Work Phone: Start: 10-14-2023 Us abdominal real time w/image limited Cherry Hernandez MD Work Phone: Start: 10-14-2023 Lipid 1996 panel - Serum or Plasma Us 2 Work Phone: Start: 04-22-2023 XR UPPER GI SINGLE CONTRAST Cherry esparza MD Work Phone: Start: 11-05-2022 Esophagogastroduodenoscopy NIDAL ZORA DO Start: 10-10-2020 Cardiovascular stress test using pharmacologic stress agent ZACKERY TRUONG DO Comment on above: [facility]-normal Start: 09-10-2020 Plain chest X-ray ZACKERY TRUONG DO Comment on above: [facility]-mild vascualr congestion Start: 07-02-2016 End: 07-02-2016 Documentation of current medications Kristyn Montiel Start: 07-02-2016 End: 08-26-2016 *BMP Tanner Ramirez MD Start: 07-02-2016 End: 07-02-2016 Follow Up Appt 1 year Tanner Ramirez MD Start: 07-02-2016 End: 07-02-2016 PFM Tanner Ramirez MD Start: 07-02-2016 End: 08-31-2016 Transesophageal echocardiogram (MARCEL) Tanner Ramirez MD Start: 06-27-2015 End: 06-26-2016 Coagulation factor induced.INR assay in platelet poor plasma Tanner Ramirez MD Start: 03-03-2015 End: 03-03-2015 Dietary management education, guidance, and counseling Kristyn Dinesh Start: 03-03-2015 End: 03-04-2015 Coagulation factor induced.INR assay in platelet poor plasma Tanner Ramirez MD Start: 03-03-2015 End: 03-03-2015 Follow Up Appt 6 months Tanner Ramirez MD Start: 03-03-2015 End: 03-03-2015 PFM Tanner Ramirez MD Start: 06-13-2014 End: 07-02-2016 Chest x-ray Tanner Ramirez MD Start: 06-13-2014 End: 07-03-2014 Coagulation factor induced.INR assay in platelet poor plasma Tanner Ramirez MD Start: 06-13-2014 End: 2014 Documentation of current medications Tanner Ramirez MD Start: 06-13-2014 End: 07-02-2016 Echocardiography Tanner Ramirez MD Start: 06-13-2014 End: 06-13-2014 Electrocardiogram, complete Tanner spears MD Start: 06-13-2014 End: 06-13-2014 Follow Up Appt 6 months Tanner Ramirez MD Start: 06-13-2014 End: 06-13-2014 PFM Tanner Ramirez MD Start: 06-11-2014 Replacement of aortic valve Aortic valve replacement, hx of Kristyn Montiel Start: 06-08-2011 Lipid 1996 panel - Serum or Plasma Gi/Gu (I-Stat) Start: 11-19-2009 Varghese Huff MD Work Phone: Cholecystectomy DR KARRIE MATHIAS MD Entire femur (body structure) DR KARRIE KAPADIA MD Heart structure (body structure) DR KARRIE KAPADIA MD Comment on above: artificial heart valve, aorta Hysterectomy DR KARRIE KAPADIA MD Replacement of aortic valve ZACKERY TRUONG DO Sternotomy ZACKERY Zeng Plan of Treatment Date Care Activity Detail Author Start: 04-01-2033 Urine microalbumin profile DTaP,Tdap,Td Vaccine (7 - Td or Tdap) [facility] Start: 10-13-2028 Lipid panel Lipid Screening [facility] Start: 10-13-2026 Diabetes Screening Diabetes Screening [facility] Start: 09-08-2024 Diabetes Screening Diabetes Screening [facility] Start: 07-27-2024 BP Controlled (<130/80) BP Controlled (<130/80) [facility] Start: 04-19-2024 Bacteria identified in Urine by Culture Urine Culture [facility] Start: 04-19-2024 Iv infusion hydration each additional hour HYDRATE IV INFUSION ADD-ON [facility] Start: 04-19-2024 Iv infusion hydration initial 31 min-1 hour HYDRATION IV INFUSION INIT [facility] Start: 04-19-2024 Ova and Parasites Ova and Parasites [facility] Start: 04-19-2024 [facility] Start: 03-29-2024 Patient discharge [facility] Start: 03-28-2024 End: 03-29-2024 [facility] Start: 03-28-2024 Following clinical pathway protocol [facility] Start: 03-28-2024 Ambulation without limitation [facility] Start: 03-28-2024 Assessment of risk of venous thromboembolism [facility] Start: 03-28-2024 Insertion of catheter into peripheral vein [facility] Start: 03-28-2024 Insertion of nasogastric tube [facility] Start: 03-28-2024 Measuring intake and output [facility] Start: 03-28-2024 Providing care according to standard [facility] Start: 03-28-2024 Referral to gastroenterology service [facility] Start: 03-28-2024 Admission procedure [facility] Start: 12-14-2023 End: 12-14-2023 Patient encounter procedure 12/14/2023 11:30 AM EDT [facility] BARIATRIC DEPARTMENT [address] [place] [address] Trish Link, RD [address] [place] [address] Aygicsvu-Nbmrvv-GJK-throu gh VA-Needs DX GERD-SEE TE 07/31 [facility] Comment on above: Vjjgurtx-Ivpxkf-KLU-through VA-Needs DX GERD-SEE TE 07/31 Start: 12-13-2023 End: 12-13-2023 Patient encounter procedure 12/13/2023 8:00 AM EDT [facility] GENERAL BARIATRIC [address] [place] [address] Estelita Morgan, PSYD [address] [place] [address] Oxorvolh-Iuxzxz-ZOY-throu gh VA-Needs DX GERD-SEE TE 07/31 [facility] BARIATRIC Comment on above: Qjcgrfqq-Olsdon-KJD-through VA-Needs DX GERD-SEE TE 07/31 Start: 11-28-2023 End: 11-28-2023 Patient encounter procedure [facility] BARIATRIC Comment on above: Fztskexb-Vlppqg-TKI-through VA-Needs DX GERD-SEE TE 07/31 Start: 10-28-2023 End: 10-28-2023 Patient encounter procedure [facility] BARIATRIC DEPARTMENT Comment on above: Rzshzloh-Yxkgcb-XQF-through VA-Needs DX GERD-SEE TE 07/31 Start: 10-18-2023 End: 01-17-2024 Hepatic function 2000 panel - Serum or Plasma HEPATIC FUNCTION PNL Lab Routine Blood alkaline phosphatase increased compared with prior measurement Expected: 10/18/2023, Expires: 01/17/2024 [facility] Comment on above: Expected: 10/18/2023, Expires: Start: 10-18-2023 End: 01-17-2024 Parathyrin.intact [Mass/volume] in Serum or Plasma PTH INTACT Lab Routine Increased PTH level Expected: 10/18/2023, Expires: 01/17/2024 [facility] Work Phone: Comment on above: Expected: 10/18/2023, Expires: Start: 10-16-2023 Covid-19 Vaccine () Covid-19 Vaccine () [facility] Start: 10-16-2023 Covid-19 Vaccine () Covid-19 Vaccine () [facility] Start: 10-16-2023 Influenza vaccination Influenza Vaccine (#1) [facility] Start: 09-30-2023 End: 12-30-2023 25-hydroxyvitamin D3 [Mass/volume] in Serum or Plasma VITAMIN D 25 HYDROXY Lab Routine Gastroesophageal reflux disease with esophagitis without hemorrhage History of bariatric surgery Expected: 09/30/2023, Expires: 12/30/2023 [facility] Comment on above: Expected: 09/30/2023, Expires: Start: 09-30-2023 End: 12-30-2023 CBC panel - Blood by Automated count COMPLETE BLOOD COUNT Lab Routine Gastroesophageal reflux disease with esophagitis without hemorrhage History of bariatric surgery Expected: 09/30/2023, Expires: 12/30/2023 [facility] Work Phone: Comment on above: Expected: 09/30/2023, Expires: Start: 09-30-2023 End: 12-30-2023 Cobalamin (Vitamin B12) [Mass/volume] in Serum or Plasma VITAMIN B12 Lab Routine Gastroesophageal reflux disease with esophagitis without hemorrhage History of bariatric surgery Expected: 09/30/2023, Expires: 12/30/2023 [facility] Comment on above: Expected: 09/30/2023, Expires: Start: 09-30-2023 End: 12-30-2023 Comprehensive metabolic 2000 panel - Serum or Plasma COMPREHENSIVE METABOLIC PANEL Lab Routine Gastroesophageal reflux disease with esophagitis without hemorrhage History of bariatric surgery Expected: 09/30/2023, Expires: 12/30/2023 [facility] Comment on above: Expected: 09/30/2023, Expires: Start: 09-30-2023 End: 12-30-2023 Ferritin [Mass/volume] in Serum or Plasma FERRITIN Lab Routine Gastroesophageal reflux disease with esophagitis without hemorrhage History of bariatric surgery Expected: 09/30/2023, Expires: 12/30/2023 [facility] Comment on above: Expected: 09/30/2023, Expires: Start: 09-30-2023 End: 12-30-2023 Folate [Mass/volume] in Serum or Plasma FOLATE, SERUM Lab Routine Gastroesophageal reflux disease with esophagitis without hemorrhage History of bariatric surgery Expected: 09/30/2023, Expires: 12/30/2023 [facility] Comment on above: Expected: 09/30/2023, Expires: Start: 09-30-2023 End: 12-30-2023 Hemoglobin A1c in Blood HEMOGLOBIN A1C Lab Routine Gastroesophageal reflux disease with esophagitis without hemorrhage History of bariatric surgery Expected: 09/30/2023, Expires: 12/30/2023 [facility] Comment on above: Expected: 09/30/2023, Expires: Start: 09-30-2023 End: 12-30-2023 Iron and Iron binding capacity panel - Serum or Plasma IRON AND TIBC Lab Routine Gastroesophageal reflux disease with esophagitis without hemorrhage History of bariatric surgery Expected: 09/30/2023, Expires: 12/30/2023 [facility] Comment on above: Expected: 09/30/2023, Expires: 4 Start: 09-30-2023 End: 12-30-2023 Lipid 1996 panel - Serum or Plasma LIPID PANEL BASIC Lab Routine Gastroesophageal reflux disease with esophagitis without hemorrhage History of bariatric surgery Expected: 09/30/2023, Expires: 12/30/2023 [facility] Comment on above: Expected: 09/30/2023, Expires: Start: 09-30-2023 End: 12-30-2023 Parathyrin.intact [Mass/volume] in Serum or Plasma PTH INTACT Lab Routine Gastroesophageal reflux disease with esophagitis without hemorrhage History of bariatric surgery Expected: 09/30/2023, Expires: 12/30/2023 [facility] Comment on above: Expected: 09/30/2023, Expires: Start: 09-30-2023 End: 12-30-2023 Retinol [Mass/volume] in Serum or Plasma VITAMIN A/RETINOL Lab Routine Gastroesophageal reflux disease with esophagitis without hemorrhage History of bariatric surgery Expected: 09/30/2023, Expires: 12/30/2023 [facility] Comment on above: Expected: 09/30/2023, Expires: Start: 09-30-2023 End: 12-30-2023 Thyrotropin [Units/volume] in Serum or Plasma THYROID STIMULATING HORMONE Lab Routine Gastroesophageal reflux disease with esophagitis without hemorrhage History of bariatric surgery Expected: 09/30/2023, Expires: 12/30/2023 [facility] Comment on above: Expected: 09/30/2023, Expires: Start: 09-30-2023 End: 12-30-2023 VITAMIN B1 (THIAMINE), WHOLE BLOOD VITAMIN B1 (THIAMINE), WHOLE BLOOD Lab Routine Gastroesophageal reflux disease with esophagitis without hemorrhage History of bariatric surgery Expected: 09/30/2023, Expires: 12/30/2023 [facility] Comment on above: Expected: 09/30/2023, Expires: Start: 09-30-2023 End: 12-30-2023 Zinc [Mass/volume] in Serum or Plasma ZINC BLD Lab Routine Gastroesophageal reflux disease with esophagitis without hemorrhage History of bariatric surgery Expected: 09/30/2023, Expires: 12/30/2023 [facility] Comment on above: Expected: 09/30/2023, Expires: Start: 07-29-2023 End: 07-29-2023 ambulatory 07/29/2023 2:30 PM EDT Results Only [facility] [address] [place] [address] [facility] Start: 07-28-2023 End: 10-27-2023 NICOTINE & METAB, UR NICOTINE & METAB, UR Lab Routine Gastroesophageal reflux disease with esophagitis without hemorrhage Expected: 07/28/2023, Expires: 10/27/2023 [facility] Comment on above: Expected: 07/28/2023, Expires: Start: 07-28-2023 End: 10-27-2023 Thyrotropin [Units/volume] in Serum or Plasma THYROID STIMULATING HORMONE Lab Routine Nutritional anemia Expected: 07/28/2023, Expires: 10/27/2023 [facility] Comment on above: Expected: 07/28/2023, Expires: Start: 07-28-2023 End: 10-27-2023 TOXICOLOGY SCREEN, ROUTINE URINE TOXICOLOGY SCREEN, ROUTINE URINE Lab Routine Gastroesophageal reflux disease with esophagitis without hemorrhage Expected: 07/28/2023, Expires: 10/27/2023 [facility] Comment on above: Expected: 07/28/2023, Expires: Start: 10-15-2022 Covid-19 Vaccine ( season) Covid-19 Vaccine () [facility] Start: 10-15-2021 Influenza [facility] Start: 06-29-2017 End: 06-29-2017 Appointment Appointment [facility] Work Phone: Start: 07-02-2016 End: 08-26-2016 *BMP *BMP [facility] Work Phone: Start: 07-02-2016 End: 07-02-2016 Follow Up Appt 1 year Follow Up Appt 1 year [facility] Work Phone: Start: 07-02-2016 End: 07-02-2016 PFM PFM [facility] Work Phone: Start: 07-02-2016 End: 07-26-2016 Transesophageal echocardiogram (MARCEL) Transesophageal echocardiogram (MARCEL) [facility] Work Phone: Start: 06-20-2016 PAP TESTING PAP TESTING [facility] Start: 06-20-2016 Screening for malignant neoplasm of cervix Pap Testing [facility] Start: 06-07-2016 Lipid panel Lipid Screening [facility] Start: 06-07-2016 LIPID SCREEN LIPID SCREEN [facility] Start: 06-27-2015 End: 07-23-2015 Coagulation factor induced.INR assay in platelet poor plasma *PT/INR - Standing Order [facility] Work Phone: Start: 06-15-2015 SHINGRIX VACCINE (1 of 2) SHINGRIX VACCINE (1 of 2) [facility] Start: 03-03-2015 End: 03-04-2015 Coagulation factor induced.INR assay in platelet poor plasma *PT/INR - Standing Order [facility] Work Phone: Start: 03-03-2015 End: 03-03-2015 Follow Up Appt 6 months Follow Up Appt 6 months [facility] Work Phone: Start: 03-03-2015 End: 03-03-2015 PFM PFM [facility] Work Phone: Start: 06-20-2014 Screening for malignant neoplasm of cervix Cervical Cancer Screening [facility] Start: 06-13-2014 End: 07-02-2016 Chest x-ray X-Ray, Chest, PA & Lateral [facility] Work Phone: Start: 06-13-2014 End: 07-03-2014 Coagulation factor induced.INR assay in platelet poor plasma *PT/INR - Standing Order [facility] Work Phone: Start: 06-13-2014 End: 06-13-2014 Echocardiography Echocardiogram (complete) [facility] Phone: Start: 06-13-2014 End: 06-13-2014 Electrocardiogram, complete EKG (In office) [facility] Work Phone: Start: 06-13-2014 End: 06-13-2014 Follow Up Appt 6 months Follow Up Appt 6 months [facility] Work Phone: Start: 06-13-2014 End: 06-13-2014 PFM PFM [facility] Work Phone: Start: 06-07-2014 DIABETES SCREEN DIABETES SCREEN [facility] Start: 11-19-2010 Mammography MAMMOGRAM [facility] Start: 11-19-2010 Screening for malignant neoplasm of breast Mammogram Screening [facility] Start: 2010 COLOGUARD (FIT-DNA) COLOGUARD (FIT-DNA) [facility] Start: 2010 Colonoscopy COLONOSCOPY [facility] Start: 2010 COLORECTAL CANCER SCREENING COLORECTAL CANCER SCREENING [facility] Start: [address] COLONOGRAPHY [facility] Start: 2010 FECAL OCCULT BLOOD FECAL OCCULT BLOOD [facility] Start: 2010 Screening for malignant neoplasm of colon [facility] Start: 2010 SIGMOIDOSCOPY SIGMOIDOSCOPY [facility] Start: 06-15-2002 Urine microalbumin profile DTAP,TDAP,TD (1 - Tdap) [facility] Start: 06-15-1995 HPV TESTING HPV TESTING [facility] Start: 06-15-1995 Screening for malignant neoplasm of cervix HPV Testing [facility] Start: 1984 Hepatitis B Vaccine (1 of 3 - 19+ 3-dose series) Hepatitis B Vaccine (1 of 3 - 19+ 3-dose series) [facility] Start: 06-15-1983 ANNUAL PCP TEAM CHRONIC DISEASE VISIT ANNUAL PCP TEAM CHRONIC DISEASE VISIT [facility] Start: 06-15-1983 BP CONTROLLED (<130/80) BP CONTROLLED (<130/80) [facility] Start: 06-15-1983 HEPATITIS C SCREENING HEPATITIS C SCREENING [facility] Start: 06-15-1983 Hepatitis C screening Hepatitis C Screening [facility] Start: 06-15-1983 HIV SCREENING HIV SCREENING [facility] Start: 06-15-1983 HIV screening HIV Screening [facility] Start: 1970 COVID-19 VACCINE (#1) COVID-19 VACCINE (#1) [facility] Helicobacter pylori Ag [Presence] in Stool by Immunoassay H PYLORI AG BY EIA,STOOL Microbiology Routine Helicobacter pylori infection Ordered: 05/17/2023 [facility] Work Phone: Comment on above: Ordered: 05/17/2023 Helicobacter pylori Ag [Presence] in Stool by Immunoassay HELICOBACTER PYLORI ANTIGEN BY EIA, STOOL Microbiology Routine Helicobacter pylori infection Ordered: 05/27/2023 [facility] Work Phone: Comment on above: Ordered: 05/27/2023 Ova OR parasites identification [facility] Patient referral [facility] Work Phone: Radionuclide gastric emptying study [facility] Urine culture [facility] End: 08-26-2024 US Abdomen RUQ US ABD RIGHT UPPER QUADRANT Radiology Routine Gastroesophageal reflux disease with esophagitis without hemorrhage 1 Occurrences starting 07/28/2023 until 08/26/2024 [facility] Work Phone: Comment on above: 1 Occurrences starting 07/28/2023 until 08/26/2024 [facility] Immunizations Immunization Date Immunization Notes Care Provider [facility] 12-07-2023 rabies vaccine, for intramuscular injection KARRIE KAPADIA Work Phone: [facility] 11-30-2023 rabies vaccine, for intramuscular injection KARRIE STAVROU Work Phone: [facility] 11-26-2023 rabies vaccine, for intramuscular injection KARRIE STAVROU Work Phone: [facility] 11-23-2023 rabies immune globulin KARRIE S TAVROU Work Phone: [facility] 11-23-2023 rabies vaccine, for intramuscular injection KARRIE STAVROU Work Phone: [facility] 11-10-2023 influenza, seasonal, injectable, preservative free KARRIE STAVROU Work Phone: [facility] 04-01-2023 tetanus toxoid, redu roscoe diphtheria toxoid, and acellular pertussis vaccine, adsorbed CARMEN MARES MD [facility] 11-09-2022 influenza virus vacc ine, unspecified formulation Cherry Hernandez MD Work Phone: [facility] 03-18-2020 SARS-CoV-2 (COVID-19 ) [id number] KARRIE KAPADIA MD [facility] 02-20-2020 SARS-CoV-2 (COVID-19 ) mRNA-[address] KARRIE KAPADIA MD [facility] Comment on above: Result Comment: 2021: [id number] 11-14-2018 Influenza virus vaccine [facility] 10-03-[address] KARRIE KAPADIA MD [facility] 04-29-[address] KARRIE KAPADIA MD [facility] 03-05-2017 tetanus toxoid, redu roscoe diphtheria toxoid, and acellular pertussis vaccine, adsorbed DR KARRIE KAPADIA MD [facility] 09-23-2015 pneumococcal conjuga te vaccine, [address] KARRIE KAPADIA MD [facility] 09-23-2015 tetanus toxoid, redu roscoe diphtheria toxoid, and acellular pertussis vaccine, adsorbed DR KARRIE KAPADIA MD [facility] 09-23-2015 zoster vaccine, live DR KARRIE KAPADIA MD [facility] 12-10-2014 influenza, injectabl e, quadrivalent, preservative free [facility] 03-21-2014 tetanus toxoid, redu roscoe diphtheria toxoid, and acellular pertussis vaccine, adsorbed [facility] 11-14-2013 Influenza virus vaccine [facility] 11-14-2012 influenza virus vacc ine, unspecified formulation DR KARRIE KAPADIA MD [facility] 10-25-2012 tetanus toxoid, redu roscoe diphtheria toxoid, and acellular pertussis vaccine, adsorbed DR KARRIE KAPADIA MD [facility] 11-21-2009 influenza virus vacc ine, unspecified formulation Eric Huff MD Work Phone: [facility] Work Phone: 12-04-2008 influenza virus vacc ine, unspecified formulation Eric Huff MD Work Phone: [facility] Work Phone: 2002 tetanus and diphther ia toxoids, adsorbed, preservative free, for adult use (2 Lf of tetanus toxoid and 2 Lf of diphtheria toxoid) Eric Huff MD Work Phone: [facility] Work Phone: Payers Date Payer Category Payer Self-pay [id number] 2023 Private Health Insurance [id number] 2022 Unknown [id number] 2022 Unknown [id number] 2018 Unknown 2016 Unknown [id number] 2010 Unknown [employer] BLUE CARD PPO OOS [id number] 2010-Present [phone] [address] [place] [address] PPO [id number] 2003 Private Health Insurance [id number] .[id number] 2003 Unknown [id number] 2003 Unknown [id number] 1965 Unknown [id number] 2.16.840.1.064760.3.579.2.7 1965 Unknown [id number] 2.16.840.1.874097.3.579.2.3 1965 Unknown [id number] 2.16.840.1.317902.3.579.2.6 1965 Unknown [id number] 2.16.840.1.036060.3.579.2.6 1965 Unknown [id number] 2.16.840.1.822948.3.579.2.6 1965 Unknown [id number] 2.16.840.1.258594.3.579.2.6 1965 Unknown [id number] 2.16.840.1.093309.3.579.2.6 1965 Unknown [id number] 2.16.840.1.023595.3.579.2.6 1965 Unknown [id number] 2.16.840.1.551599.3.579.2.6 1965 Unknown [id number] 2.16.840.1.655587.3.579.2.6 27 Private Health Insurance [facility] [id number] Unknown [facility] DO NOT USE 22 [id number] Unknown [id number] 2.16.840.1.466460.3.579.2.4 62 Unknown [id number] 2.16.840.1.478208.3.579.2.4 62 Unknown [id number] 2.16.840.1.652529.3.579.2.4 62 Unknown [id number] 2.16.840.1.515858.3.579.2.4 62 Unknown [id number] 2.16.840.1.676887.3.579.2.4 62 Unknown [id number] 2.16.840.1.908262.3.579.2.4 62 Unknown [id number] 2.16.840.1.480962.3.579.2.4 62 Unknown [id number] 2.16.840.1.879628.3.579.2.4 62 Unknown [id number] 2.16.840.1.651031.3.579.2.4 62 Unknown [id number] 2.16.840.1.006514.3.579.2.4 62 Unknown [id number] 2.16.840.1.767855.3.579.2.4 62 Unknown [id number] 2.16.840.1.836767.3.579.2.4 62 Unknown [id number] 2.16.840.1.559591.3.579.2.4 62 Unknown [id number] 2.16.840.1.735010.3.579.2.4 62 Unknown [id number] 2.16.840.1.611182.3.579.2.4 62 Unknown [id number] 2.16.840.1.861184.3.579.2.4 62 Unknown [id number] 2.16.840.1.410062.3.579.2.4 62 Unknown [id number] 2.16.840.1.615603.3.579.2.4 62 Unknown [id number] 2.16.840.1.704925.3.579.2.4 62 Unknown [id number] 2.16.840.1.389504.3.579.2.4 62 Unknown [id number] 2.16.840.1.080347.3.579.2.4 62 Unknown [id number] 2.16.840.1.851610.3.579.2.4 62 Unknown [id number] 2.16.840.1.951113.3.579.2.4 62 Unknown [id number] 2.16.840.1.598352.3.579.2.4 62 Unknown [id number] 2.16.840.1.979057.3.579.2.4 62 Unknown [id number] 2.16.840.1.103686.3.579.2.4 62 Unknown [id number] 2.16.840.1.239261.3.579.2.4 62 Unknown [id number] 2.16.840.1.048009.3.579.2.4 62 Unknown [id number] 2.16.840.1.042573.3.579.2.4 62 Unknown [id number] 2.16.840.1.820492.3.579.2.4 62 Unknown [id number] 2.16.840.1.019320.3.579.2.4 62 Unknown [id number] 2.16.840.1.272017.3.579.2.4 62 Unknown [id number] 2.16.840.1.596173.3.579.2.4 62 Unknown [id number] 2.16.840.1.750858.3.579.2.4 62 Unknown [id number] 2.16.840.1.180014.3.579.2.4 62 Unknown [id number] 2.16.840.1.314559.3.579.2.4 62 Unknown [id number] 2.16.840.1.124091.3.579.2.4 62 Unknown [id number] 2.16.840.1.770710.3.579.2.4 62 Unknown [id number] 2.16.840.1.473772.3.579.2.4 62 Social History Date Type Detail Facility Start: 02-02-2020 End: 03-28-2024 Tobacco smoking status Never smoked tobacco (finding) [facility] Sex Assigned At Sex [facility] Start: 09-07-2014 End: 10-28-2023 Alcohol intake Current non-drinker of alcohol (finding) [facility] Start: 1965 Sex Assigned At Not on file [facility] Start: 03-11-2023 End: 10-28-2023 History of Social function [facility] Start: 03-11-2023 End: 10-28-2023 Tobacco use panel [facility] National Score (1-100), lower number is lower risk 64 [facility] Start: 02-03-2020 Tobacco smoking status NHIS Unknown if ever smoked [facility] Start: 07-15-2019 None [facility] Start: 04-09-2019 Alone [facility] Start: 06-13-2020 Non-smoker [facility] Start: 1965 Sex Assigned At Female [facility] Start: 04-20-2024 End: 05-24-2024 Sex Female (finding) [facility] NEGATED: Highlighted row Not [facility] Medical Equipment Procedure Code Equipment Code Equipment Original Text Equipment Identifier Dates EGD, with monitored anesthesia care Gastrointestinal endoscopic clip, long-term, non-bioabsorbable ()[id number] FDA Start: 03-28-2024 St [facility] [...] Assessment Result Facility 03-29-2024 Functional status Ambulates [facility] Work Phone: 04-01-2023 Functional Status Up ad elijah [facility] 02-25-2023 Functional Status Repositions self [facility] 02-25-2023 Functional Status Maintained [facility] 12-07-2022 Functional Status Independent [facility] 12-07-2022 Functional Status Standard Safet y ID band on, Call device within reach, Bed in low position, Wheels locked, Upper/Half-Length side-rails up, Phone within reach, personal items within reach, Bedside Cart Locked, Visitor at bedside [facility] 08-12-2022 Functional Status Assistive Device None A [facility] 08-12-2022 Functional Status ID band on, Call device within reach, Bed in low position, Wheels locked, Upper/Half-Length side-rails up [facility] 06-04-2022 Functional Status Room check performed [facility] 06-04-2022 Functional Status [facility] 06-04-[address] [facility] 06-03-2022 Functional [address] [facility] 06-03-2022 Functional Status Patient Identi fied Identification band, Verbal [facility] 06-03-2022 Functional Status Maintained [facility] 06-03-2022 Functional [address] [facility] 06-03-2022 Functional Status [facility] 06-02-2022 Functional Status Sensory Deficits None A [facility] 02-11-2022 Functional Status ID band on, Call device within reach, Bed in low position, Wheels locked, Bedside Cart Locked, Safety level maintained [facility] 12-15-2021 Functional Status ID band on, Call device within reach, Bed in low position, Wheels locked [facility] 11-19-2021 Functional Status Standard Safet y ID band on, Call device within reach, Bed in low position, Wheels locked, Upper/Half-Length side-rails up, Bedside Cart Locked, Safety level maintained [facility] 09-06-2021 Functional Status Independent [facility] 09-06-2021 Functional Status Standard Safet y ID band on, Call device within reach, Bed in low position, Wheels locked, Upper/Half-Length side-rails up, Phone within reach, personal items within reach, Assistive devices within reach, Toileting device within reach, Bedside Cart Locked, Visitor at bedside, Safety level maintained [facility] Mental Status Date Assessment Result Facility 04-19-2024 Cognitive function Voice/Name [facility] Work Phone: 03-29-2024 Cognitive function Voice/Name [facility] Work Phone: 04-01-2023 Mental Status Oriented x 4 [facility] 02-25-2023 Mental Status Oriented x 4 [facility] 02-25-2023 Mental Status [facility] 12-07-2022 Mental Status Orientation Oriented x 4 [facility] 12-07-2022 Mental Status [facility] 08-12-2022 Mental Status Orientation Oriented x 4 [facility] 08-12-2022 Mental Status [facility] 06-04-2022 Mental Status Oriented x 4 [facility] 06-04-2022 Mental Status [facility] 06-03-2022 Mental Status [facility] 06-03-2022 Mental Status [facility] 06-03-2022 Mental Status [facility] 02-11-2022 Mental Status Oriented x 4 [facility] 12-15-2021 Mental Status Orientation Oriented x 4 [facility] 11-19-2021 Mental Status Orientation Oriented x 4 [facility] 09-06-2021 Mental Status Orientation Oriented x 4 [facility] 09-06-2021 Mental Status [facility] Clinical Notes 01-14-2021 to 04-19-2024 Note Date & Type Note Facility 04-19-2024 Radiology Diagnostic study note [facility] Imaging Services [address] [place] [address] Abdomen/Pelvis WITH Contrast MR#: [id number] Acct: [id number] Name: JOÃO MUJICA Rep #: [id number] : 1965 F 58 From: Edwige Mansfield MD PCP: Dr. Marcel Moya MD Status: RUTH ALEJO Study:Abdomen/Pelvis WITH Contrast Date of Ex am: 04/19/24 Exam# [id number] Ordering Dr: Marcel Moya MD PROCEDURE: ABDOMEN/PELVIS [...] 5. Additional description as above. Reading Location: [facility] CC: Dr. Marcel Moya MD ~ Pharmacist Helper: Signed [facility] 04-17-2024 Radiology Diagnostic study note [facility] Imaging Services [address] [place] [address] ABD Limited w/ Elastography MR#: [id number] Acct: [id number] Name: JOÃO MUJICA Rep #: [id number] : 1965 F 58 From: Ravindra Hernandes MD PCP: Dr. Marcel Moya MD Status: REG C MELO Study:ABD Limited w/ Elastography Date of Exa m: 04/17/24 Exam# [id number] Ordering Dr: Marcel Moya MD PROCEDURE: ABD [...] measurement may be in question. Reading Location: [id number] CC: Dr. Marcel Moya MD ~ Pharmacist Helper: Signed [facility] 03-29-2024 Note [facility] Medical Records Department [address] [place] [address] Discharge Summary 03/29/24 1508 MR#: [id number] Acct: [id number] Name: JOÃO MUJICA Rep #: [id number] : 1965 58 From: Mejia Wheeler DO PCP: Dr. Marcel Moya MD Status:DIS IN [facility] Prov[facility] Date of Admission: 03/28/24 Date of Discharge: 03/29/24 Primary Care Physician: Dr. Marcel Moya MD Consultations 03/28/24 11:27 Consult: Gastroenterology Routine Consulting Provider: [facility] Reason for Consult: upper GI bleed [...] was seen in the emergency room at [facility] after she had vomiting at home with [...] = to 40 (more content not included)... 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 Mikey Carrion RN, BSN Bariatric Zinc Chloride Operator documented in this encounterProm[facility]12[facility] Telephone encounter Note * Telephone Encounter [...] with pt. Mikey Carrion RN, BSN Bariatric Zinc Chloride Operator [facility]09-18-2024 Telephone encounter Note* Telephone Encounter - Lyric Humphries - 11/02/2023 11:33 AM EDT LVM for pt to call back and schedule with SWAGING MACHINE OPERATOR Around 11/25/23 Iythlaqo-Wrdmdp-GLI[facility]through [facility] GERD-SEE TE 07/31 [facility]09-18-2024 Miscellaneous Notes* Telephone Encounter - Lyric Humphries - 11/02/2023 11:33 AM EDT LVM for pt to call back and schedule with SWAGING MACHINE OPERATOR Around 11/25/23 Qvyqqish-Xivgzx-UKN-through [facility] GERD-SEE TE 07/31 documented in this encounterPromedica [facility]09-13-2024 History of Present illness Narrative* Frederick Colvin APRN.CAREER PLACEMENT SPECIALIST - 10/28/2023 2:00 PM EDT BARIATRIC SURGERY [...] visit. Either the patient or their legal junior sales representative has been informed of the risks and benefits of -- and alternatives to -- treatment through a remote evaluation andconsents to proceed with the evaluation remotely. HPI: João Mujica a 58 year old female presents for medically supervised weight loss treatment of her obesity related co morbidities. This individual presents for required visits. João Mujica weight has decreased since first visit in the program. She is a patient in the [facility] with Dr. Hernandez with a history of VBG with worsening heartburn and acidregurgitation. She is planning to undergo revision of VBG to RYGB to treat medical refractory GERD. João is doing well with nutritional recommendations. Denies [...] imaging results The plan of treatment for João Mujica is: Further Work-up: EGD: - Mayfield-colored mucosa suspicious for short-segment Flaherty's esophagus. Biopsied. [...] bridge her for surgery) -Pulmonary (10/02 at [facility] - req clearance 10/04) -PCP Risk Calculator: [...] - Keep a food journal 5-7x/week (consider [employer]atch[employer] or Ask The Doctor buddy) and demonstrate meeting protein goal (60-90g protein for females, 70-105g protein for males)- Lean meats, fish, low fat dairy - cottage cheese, Greenlandic yogurt, light yogurt, cheese, ricotta cheese, nuts, [...] needs psych and RD clearance. F/u with SWAGING MACHINE OPERATOR in 4 weeks. Frederick Colvin APRN.CNP Medical Decision Making: Problems: Moderate: 2+ stable chronic illnesses Data: Unique source(s) for external note(s) reviewed: 1 Unique test result(s) reviewed: 1 Assessment requiring an independent historian(s) Medical Decision Making Level: 4 - Moderate documented in this encounterPromedica Fostoria [facility]09-13-2024 NoteHNO ID: [id number] Author: FREDERICK COLVIN APRN.ANDRZEJ Service: ? Author Type: Nurse Practitioner [...] visit. Either the patient or their legal junior sales representative has been informed of the risks and benefits of -- and alternatives to -- treatment through a remote evaluation and consents to proceed with the evaluation remotely. HPI: João Mujica a 58 year old female presents for medically supervised weight loss treatment of her obesity related co morbidities. This individual presents for required visits. João Mujica weight has decreased since first visit in the program. She is a patient in the [facility] with Dr. Hernandez with a history of VBG with worsening heartburn and acid regurgitation. She is planning to undergo revision of VBG to RYGB to treat medical refractory GERD. João is doing well with nutritional recommendations. Denies [...] imaging results The plan of treatment for João Mujica is: Further Work-up: EGD: - Mayfield-colored mucosa suspicious for short-segment Flaherty's esophagus. Biopsied. [...] junction, biopsy: - Gastr (more content not included)...[facility]09-13-2024 Nurse Note* Crystal Valente MA - 10/28/2023 2:00 PM EDT Left message for patient to return call. Crystal Valente MA [facility]09-13-2024 Nurse Note* Crystal Valente MA - 10/28/2023 2:00 PM EDT Left message for patient to return call. Crystal Valente MA documented in this encounterPromedica Fostoria [facility] Hospital09-13-2024 Instructions* Patient Instructions* Angela Humphries RD - 10/28/2023 1:52 PM EDT [...] required) until your nutrition clearance is obtained. Angela Humphries RD October 28, 2023 1:52 PM documented in this encounterPromedica Fostoria [facility]09-13-2024 History of Present illness Narrative* Angela Humphries RD - 10/28/2023 1:30 PM EDT 30 Years Post-op This patient encounter was completed virtually due to COVID-19 (audio/visual) using a secure, HIPPAcompliant video chat software program with the patient's consent. I have communicated my name and active licensure. The patients identity and physical location were verified at the time of this visit. Either the patient or their legal junior sales representative has been informed of the risks and benefits of --and alternatives to -- treatment through remote evaluation and consents to proceed with the evaluation remotely. Surgery Date/Surgeon:1993 [facility] Deysi Mujica 58 year old female There [...] Beverages in Diet: 1 pop per day, Terry juice Frequent grazing: mostly on the weekends [...] was spent in counselingand/or coordination of care. Angela Humphries RD This note was generated using voice recognition technology and may contain grammatical errors. documented in this encounterPromedica Fostoria [facility] Hospital09-13-2024 NoteHNO ID: [id number] Author: ANGELA HUMPHRIES RD Service: ? Author Type: Registered [...] visit. Either the patient or their legal junior sales representative has been informed of the risks and benefits of -- and alternatives to -- treatment through remote evaluation and consents to proceed with the evaluation remotely. Surgery Date/Surgeon:[address] [facility] João Mujica 58 year old female There were [...] Beverages in Diet: 1 pop per day, Terry juice Frequent grazing: mostly on the weekends [...] spent in counseling and/or coordination of care. Angela Humphries, SESAR This note was generated using voice recognition technology and may contain grammatical errors.[facility]09-13-2024 Nurse Note* Crystal Valente MA - 10/28/2023 1:30 PM EDT Left message for patient to return call. Crystal Valente MA [facility]09-13-2024 Nurse Note* Crystal Valente MA - 10/28/2023 1:30 PM EDT Left message for patient to return call. Crystal Valente MA documented in this encounterPromedica Fostoria [facility] Hospital08-30-2024 History of Present illness Narrative* Nadya Thomas RDMS - 10/14/2023 2:30 PM EDT Radiology Service Progress Note PATIENT NAME: João Mujica DATE OF SERVICE: October 14, 2023 [...] PATIENT PRESENTS WITH AN IMPLANTABLE OR ATTACHED WHIZZER OPERATOR: No RADIOLOGY DEPARTMENT: Ultrasound PERIPHERAL IV DATA: Not applicable SIGNED BY: Nadya Thomas RDMS RVT October 14, 2023 2:14 PM documented in this encounterPromedica Fostoria [facility] Hospital08-30-2024 NoteHNO ID: [id number] Author: NADYA THOMAS RDMS Service: ? Author Type: Dry Talc Racker Type: Progress Notes Filed: 10/14/2023 14:14 Note Text: Radiology Service Progress Note PATIENT NAME: João Mujica DATE OF SERVICE: October 14, 2023 [...] PATIENT PRESENTS WITH AN IMPLANTABLE OR ATTACHED WHIZZER OPERATOR: No RADIOLOGY DEPARTMENT: Ultrasound PERIPHERAL IV DATA: Not applicable SIGNED BY: Nadya Thomas RDMS RVT October 14, 2023 2:14 [facility]08-16-2024 Telephone encounter Note* Telephone Encounter - Murali, Mikey M, RN - 09/30/2023 2:23 PM EDT Pulmonary Clearance letter sent/faxed to Lesly Chavis APRN.CNP. Mikey Carrion RN [facility]08-16-2024 Miscellaneous Notes* Telephone Encounter - Mikey Carrion RN - 09/30/2023 2:23 PM EDT Pulmonary Clearance letter sent/faxed to Lesly Chavis APRN.CNP. Mikey Carrion RN * Telephone Encounter - Mikey Carrion RN - 09/30/2023 2:17 PM EDT Cardiac clearance letter sent/faxed to Aga Spears CNP. Mikey Carrion RN documented in this encounterPromedica Fostoria [facility] Hospital08-16-2024 Telephone encounter Note * Telephone Encounter - Mikey Carrion RN - 09/30/2023 2:17 PM EDT Cardiac clearance letter sent/faxed to Aga Spears CNP. Mikey Carrion RN [facility]08-16-2024 NoteHNO ID: [id number] Author: JENNIFER SALAS APRN.CAREER PLACEMENT SPECIALIST Service: ? Author Type: Nurse Practitioner Type: [...] visit. Either the patient or their legal junior sales representative has been informed of the risks and benefits of -- and alternatives to -- treatment through a remote evaluation and consents to proceed with the evaluation remotely. HPI: João Mujica a 58 year old female for presents for medically supervised weight loss treatment of her obesity related co morbidities. This individual presents for monthly visits completed as a virtual telephone encounter João Mujica weight calculation has decreased. She is a patient in the [facility] with Dr. Hernandez with a history of [...] She is scheduled with pulmonology at the [facility] this month for pre-op clearance. She takes coumadin for history of aortic valve replacement. She has a water sander who manages coumadin to lovenox bridge before [...] imaging results The plan of treatment for João Mujica is Further Work-up: EGD: - Mayfield-colored mucosa suspicious for short-segment Flaherty's esophagus. Biopsied. - Normal duodenal bulb, first portion of the duodenum, second portion of the duodenum and third portion of the duodenum. - Patent vertical banded gastroplasty with a pouch greater than 10 cm (measured from 39 cm to 50 cm) in length and intact staple line and band appears loose. Biopsied the gastric antrum. (more content not included)...[facility]08-16-2024 History of Present illness Narrative* Jennifer Salas APRN.[facility] - 09/30/2023 10:56 AM EDT BARIATRIC SURGERY [...] visit. Either the patient or their legal junior sales representative has been informed of the risks and benefits of -- and alternatives to -- treatment through a remote evaluation andconsents to proceed with the evaluation remotely. HPI: João Mujica a 58 year old female for presents for medically supervised weight loss treatment of her obesity related co morbidities. This individual presents for monthly visits completed as avirtual telephone encounter João Mujica weight calculation has decreased. She is a patient in the [facility] with Dr. Hernandez with a history of [...] She is scheduled with [facility] at [facility] this month for pre-op clearance. She takes coumadin for history of aortic valve replacement. She has a water sander who manages coumadin to lovenox bridge before [...] imaging results The plan of treatment for João Mujica is Further Work-up: EGD: - Mayfield-colored mucosa suspicious for short-segment Flaherty's esophagus. Biopsied. [...] Education class: ongoing Clearances: Cardiac(need letter from [facility] with coumadin bridge), Pulmonary (10/02 at [facility]), and PCP Risk Calculator: VTE Risk: On [...] - Keep a food journal 5-7x/week (consider Catch.com or DS Digitale Seiten) and demonstrate meeting protein goal (60-90g protein for females, 70-105g protein for males)- Lean meats, fish, low fat dairy - cottage cheese, Greenlandic yogurt, light yogurt, cheese, ricotta cheese, nuts, [...] she is going to send me a Tower Cloud message with the name of her water sander so we can send a letter to [...] psychology, cardiology, and pulmonology. Follow up with SWAGING MACHINE OPERATOR in 4 weeks Jennifer Salas APRN.ANDRZEJ Total [...] Level: 4 - Moderate documented in this encounterPromed[facility]07-[facility] Telephone encounter Note * Telephone Encounter - Irene Washington - 08/15/2023 9:33 AM EDT Cardiac clearance letter and EKG request faxed to [facility] Irene Washington [facility]07-01-2024 Miscellaneous Notes* Telephone Encounter - Irene Washington - 08/15/2023 9:33 AM EDT Cardiac clearance letter and EKG request faxed to [facility] Irene Washington documented in this encounterPromedica Fost[facility]06-17-2024 Telephone encounter Note * Telephone Encounter - Gema Flores - 08/01/2023 10:07 AM EDT Images from the original note were not included. [facility] Miscellaneous Notes* Telephone Encounter - Gema Flores - 08/01/2023 10:07 AM EDT Images from the original note were not included. * Telephone Encounter - Gema Flores - 08/01/2023 9:48 AM EDT Called LVM to inform her that yes the [facility] insurance will require Pulm and Cardio clearance for bariatric surgery. As I lso look in her Exemplo profile her BMI is too low for bariatric. Gave patient out number incase she wanted to call back with questions. documented in this encounterPromedica Fostoria [facility] Hospital06-17-2024 Telephone encounter Note * Telephone Encounter - Gema Flores - 08/01/2023 9:48 AM EDT Called LVM to inform her that yes the [facility] insurance will require Pulm and Cardio clearance for bariatric surgery. As I lso look in her Exemplo profile her BMI is too low for bariatric. Gave patient out number incase she wanted to call back with questions. [facility]06-13-[facility] Telephone encounter Note* Telephone Encounter - Nickie Dey - 07/28/2023 3:02 PM EDT Patient called in asking if Pulmonology clearance is required for their surgery. [facility] today and was [facility] because [facility] have never seen by a hand presser. Patient must go through VA for all appointments and clearances. Patient was able to get an appointment with their water sander because they were already established patient. Patient advised [facility] [employer] insurance will in September 2023 - an extension needs to be asked for - please refer to insurance information. Please reach out to the patient with an update. [facility]-13-[facility] Miscellaneous Notes* Telephone Encounter - Nickie Dey - 07/28/2023 3:02 PM EDT Patient called in asking if Pulmonology clearance is required for their surgery. Patient called the [facility] today and was advised that they could not get in to see a hand presser [facility] - because they have never seen by a hand presser. Patient must go through [facility] for all appointments and clearances. Patient was able to get an appointment with their water sander because they were already established patient. Patient advised [employer] insurance will in September 2023 - an extension needs to be asked for - please refer to insurance information. Please reach out to the patient with an update. documented in this encounterPromedica Fostoria [facility] Hospital06-13-2024 Telephone encounter Note * Telephone Encounter - Shawn Sanchez - 07/28/2023 8:33 AM EDT Set up for moris psych, RD, [place] of ABD ([id number]) and other [facility] appts ISIS Maynard - Gisela / XENIA / 6 MO - Candelario Maynard - Jeffrey #2 / Gisela / XENIA / 6 MO - Donald [facility]06-13-2024 Miscellaneous Notes* Telephone Encounter - Shawn Field - 07/28/2023 8:33 AM EDT Set up for moris psych, RD, US of ABD ([id number]) and other [facility] appts ISIS Maynard - Gisela / XENIA / 6 MO - Candelario Maynard - Jeffrey #2 / Gisela / XENIA / 6 MO - Donald documented in this encounterPromedica Fostoria Community Hospital06-13-2024 History of Present illness Narrative* Cherry Hernandez MD - 07/28/2023 8:04 AM EDT SURGICAL SERVICES HISTORY AND PHYSICAL EXAMINATION SERVICE DATE: 07/28/2023 SERVICE TIME: 8:04 AM PRIMARY CARE PHYSICIAN: ISABELLE MARTINES SUBJECTIVE CHIEF COMPLAINT: heartburn HISTORY OF PRESENT [...] our system as it was completed in [place]. Today she reports that despite the negative h.pylori testing she still is experiencing GERD symptoms of heartburn, nausea, and regurgitation. She remains on Protonix every day and takes additional TUMs as well. Workup: - EGD (05/13/23); Gisela: Concern for Flaherty's esophagus. 10 cm VBG [...] a GES in the past at the [facility] [place]. She does not recall the results, but she believes it was slow and she was diagnosed with gastroparesis Social: denies use of tobacco, etoh, or marijuana. 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 Curiel LIGATE FALLOPIAN TUBE 1991 [place] PAST SURGICAL HISTORY OF 2004 ORIF femur, [facility] TOTAL ABDOMINAL HYSTERECT W/WO RMVL TUBE OVARY 2005 Hysterectomy, LUZ -- ovaries intact, Dr. Luz Garcia in [place] FAMILY HISTORY: FAMILY HISTORY Problem Relation Age of Onset Coronary Artery Disease Mother CAD, no [place]; first diagnosed mid-50's? Coronary Artery Disease Maternal Grandmother [place], CAD Coronary Artery Disease Maternal Grandfather [place], CAD None Father UNKNOWN --- Colon Cancer [...] visit: EMR reviewed Plan ASSESSMENT AND PLAN João Mujica is a 58 year old female [...] will also need to see the bariatric SWAGING MACHINE OPERATOR to ensure all clearances and testing are [...] Decision Making Level: 4 - Moderate SIGNATURE: Cherry Hernandez MD PATIENT NAME: João Mujica DATE: July 28, 2023 TIME: 8:04 AM PAGER/CONTACT #: [phone] documented in this encounterPromedica Fostoria [facility] Hospital06-13-2024 NoteHNO ID: [id number] Author: CHERRY HERNANDEZ MD Service: ? Author Type: Physician Type: Progress Notes Filed: 07/28/2023 08:25 Note Text: SURGICAL SERVICES HISTORY AND PHYSICAL EXAMINATION SERVICE DATE: 07/28/2023 SERVICE TIME: 8:04 AM PRIMARY CARE PHYSICIAN: ISABELLE MARTINES SUBJECTIVE CHIEF COMPLAINT: heartburn HISTORY OF PRESENT [...] our system as it was completed in [place]. Today she reports that despite the negative h.pylori testing she still is experiencing GERD symptoms of heartburn, nausea, and regurgitation. She remains on Protonix every day and takes additional TUMs as well. Workup: - EGD (05/13/23); Gisela: Concern for Flaherty's esophagus. 10 cm VBG [...] a GES in the past at the [facility] [place]. She does not recall the results, but she believes it was slow and she was diagnosed with gastroparesis Social: denies use of tobacco, etoh, or marijuana. 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 Curiel LIGATE FALLOPIAN TUBE 1991 [place] PAST SURGICAL HISTORY OF 2004 ORIF femur, [facility] TOTAL ABDOMINAL HYSTERECT W/WO RMVL TUBE OVARY 2004 Hysterectomy, LUZ -- ovaries intact, Dr. Luz Garcia in [place] FAMILY HISTORY: FAMILY HISTORY Problem Relation Age of Onset Coronary Artery Disease Mother CAD, no [place]; first diagnosed mid-50's? Coronary Artery Disease Maternal Grandmother [place], CAD Coronary Artery Disease Maternal Grandfather [place], CAD None Father UNKNOWN --- Colon Cancer [...] Once a day) l (more content not included)...[facility]04-26-2024 Telephone encounter Note* Telephone Encounter - Gema Flores - 06/10/2023 10:52 AM EDT Called patient to talk about her benefits. Since she had a Gastric Plasty in the early the [facility] told her that because she is having complications ( GERD ) they would pay for the revision if its billed under GERD. There was not a number to call the VA. But patient did stated they would cover it. [facility]04-26-2024 Miscellaneous Notes* Telephone Encounter - Gema Flores - 06/10/2023 10:52 AM EDT Called [...] they would cover it. documented in this encounterPromedica Fostoria [facility] Hospital04-12-2024 Miscellaneous Notes* Telephone Encounter - Lisa Combs MA - 05/27/2023 10:32 AM EDT Checkout notes per Dr. Hernandez this can be virtual Follow-up disposition: Return in about 8 weeks (around 07/22/2023). Patient will call next week to schedule once she reviews her calendar. Lisa Combs MA documented in this encounterPromedica Fostoria [facility] Hospital04-12-2024 NoteHNO ID: [id number] Author: CHERRY HERNANDEZ MD Service: ? Author Type: Physician Type: Progress Notes Filed: 05/27/2023 12:40 Note Text: SURGICAL SERVICES HISTORY AND PHYSICAL EXAMINATION SERVICE DATE: 05/27/2023 SERVICE TIME: 10:08 AM PRIMARY CARE PHYSICIAN: ISABELLE MARTINES SUBJECTIVE CHIEF COMPLAINT: follow up after testing [...] since starting medications. Workup: - EGD (05/13/23); Gisela: Concern for Flaherty's esophagus. 10 cm VBG [...] a GES in the past at the [facility] [place]. She does not recall the results, but she believes it was slow and she was diagnosed with gastroparesis Social: denies use of tobacco, etoh, or marijuana. 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 Hernandez GSTR RSTCV W/O BYP OTH/THN [place]-BANDED GSTP 02/14/1993 [place] HEART VALVE REPLACEMENT 05/15/2009 mechanical valve, Aortic root, [facility] in [place] Dr. Curiel LIGATE FALLOPIAN TUBE 1991 [place] PAST SURGICAL HISTORY OF 2004 ORIF femur, [facility] TOTAL ABDOMINAL HYSTERECT W/WO RMVL TUBE OVARY 2004 Hysterectomy, LUZ -- ovaries intact, Dr. Luz Garcia in [place] FAMILY HISTORY: FAMILY HISTORY Problem Relation Age of Onset Coronary Artery Disease Mother CAD, no [place]; first diagnosed mid-50's? Coronary Artery Disease Maternal Grandmother [place], CAD Coronary Artery Disease Maternal Grandfather [place], CAD None Father UNKNOWN --- Colon Cancer [...] mg by mouth. luz (more content not included)...[facility]04-12-2024 History of Present illness Narrative* Cherry Hernandez MD - 05/27/2023 10:07 AM EDT SURGICAL SERVICES HISTORY AND PHYSICAL EXAMINATION SERVICE DATE: 05/27/2023 SERVICE TIME: 10:08 AM PRIMARY CARE PHYSICIAN: ISABELLE MARTINES SUBJECTIVE CHIEF COMPLAINT: follow up after testing [...] since starting medications. Workup: - EGD (05/13/23); Gisela: Concern for Flaherty's esophagus. 10 cm VBG [...] in addition to Protonix 40 mg at . She reports having had a GES in the past at the [facility] [place]. She does not recall the results, but she believes it was slow and she was diagnosed with gastroparesis Social: denies use of tobacco, etoh, or marijuana. 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 Curiel LIGATE FALLOPIAN TUBE 1991 [place] PAST SURGICAL HISTORY OF 2004 [facility], [facility] TOTAL ABDOMINAL HYSTERECT W/WO RMVL TUBE OVARY 2004 Hysterectomy, LUZ -- ovaries intact, Dr. Luz Garcia in [place] FAMILY HISTORY: FAMILY HISTORY Problem Relation Age of Onset Coronary Artery Disease Mother CAD, no [place]; first diagnosed mid-50's? Coronary Artery Disease Maternal Grandmother [place], CAD Coronary Artery Disease Maternal Grandfather [place], CAD None Father UNKNOWN --- Colon Cancer [...] visit: EMR reviewed Plan ASSESSMENT AND PLAN João Mujica is a 57 year old female [...] Decision Making Level: 4 - Moderate SIGNATURE: Cherry Hernandez MD PATIENT NAME: João Mujica DATE: May 27, 2023 TIME: 10:08 AM PAGER/CONTACT #: [phone] documented in this encounterPromedica Fostoria [facility]04-08-2024 Miscellaneous Notes* Addendum Note - Jennifer Salas, SLATER APPRENTICE.CAREER PLACEMENT SPECIALIST - 05/23/2023 8:53 AM EDTAddended by: JENNIFER SALAS on: 05/23/2023 08:53 AM Modules accepted: Orders * Telephone Encounter - Jennifer Salas APRN.CNP - 05/23/2023 8:52 AM EDT [facility] Per her request. Jennifer Salas APRN.CNP * Telephone Encounter - Irene Washington MA - 05/23/2023 8:43 AM EDT [facility] called they do not have tetracycline they do have clarithromycin and doxycycline tablets. If you want her to have one of them. Irene Washington MA documented in this encounterPromedica Fostoria [facility]04-02-2024 NoteHNO ID: [id number] Author: JENNIFER SALAS APRN.CNP Service: ? Author [...] She will contact the pharmacist at the [facility] who manages her coumadin. I will ask my office to reach out there as well. She is going to call the office back with their phone number. She is aware to not start taking the antibiotics until she speaks with coumadin clinic Jennifer Salas APRN.[facility]PR[facility]04-[facility]-20[facility] History of Present illness Narrative* Jennifer [...] She will contact the pharmacist at the [facility] who manages her coumadin. I will ask my office to reach out there as well. She is going to call the officeback with their phone number. She is aware to not start taking the antibiotics until she speaks with coumadin clinic Jennifer Salas APRN.CAREER PLACEMENT SPECIALIST documented in this encounterPromedica Fostoria [facility]03-08-2024 Miscellaneous Notes* [facility] - Mady Perry RT(R) - 04/22/2023 8:00 AM EST Radiology Service Progress Note PATIENT NAME: João Mujica DATE OF SERVICE: April 22, 2023 [...] PATIENT PRESENTS WITH AN IMPLANTABLE OR ATTACHED WHIZZER OPERATOR: No RADIOLOGY DEPARTMENT: General X-ray: Exam(s) Completed: GI/ Procedure(s): Upper GI with barium contrast PERIPHERAL IV DATA: Not applicable SIGNED BY: RT Park(R) April 22, 2023 8:29 AM documented in this encounterPromedica Fostoria [facility]02-16-2024 Hospital Discharge instructions Patient Education 04/01/2023 [...] for signs of illness. If the pet lion hunter won t allow this, contact your local [...] stopped after 5 minutes of firm pressure [id number] [employer]. [address] [place] [address]. All rights reserved. This information is not intended as a substitute for professional medical care. Always follow yourhealthcare professional's instructions. Follow Up Care 04/01/2023 09:19:57 With:[facility] Address: [address] [place] [address] [place] [address]- When:2-4 days [facility] 02-16-2024 Note Discharge Instructions Thank you for allowing [facility] to assist you with your healthcare needs. The following is importantdischarge information regarding your hospital visit. Diagnosis from Today's Visit Cat bite Cat bite: hand What to Do Next Instructions from Your Care Team No qualifying data available. Post Acute Orders No qualifying data available. You Need to Schedule the Following Appointments Follow Up with [facility] When Within 2-4 days Where: [address] [place] [address] [place] [address]- Allergies NKA Medications Please ask your primary doctor or pharmacist before taking any other medication not listed, including over the counter drugs, herbal medications, vitamins and or supplements as they may interact withur home medications. What How Much When Instructions [...] may report side effects to FDA at 9-839-CCY-1121. What other drugs will affect amoxicillin and clavulanate potassium? Tell your doctor about all your other medicines, especially: allopurinol; probenecid; or a blood thinner--warfarin, Coumadin, Jantoven. This list is not complete. Other drugs may affect amoxicillin and clavulanate potassium, including prescription and vwwh-xrf-eqfiqbe medicines, vitamins, and herbal products. Not all [...] to ensure that the information provided by [employer]. ('[employer]') is accurate, up-to-date, and complete, but no guarantee is made to that effect. Drug information contained herein may be time sensitive. [employer] information has been compiled for use by healthcare practitioners and consumers in the [place] and therefore [employer] does not warrant that uses outside of the [place] are appropriate, unless specifically indicated otherwise. [employer] drug information does not endorse drugs, diagnose patients or recommend therapy. [employer] drug information isan informational resource designed to [...] effective or appropriate for any given patient. [employer] does not assume any responsibility for any aspect of healthcare administered with the aid of information [employer] provides. The information contained herein is not intended to cover all possible uses, directions, precautions, warnings, drug interactions, allergic reactions, or adverse effects. If you have questions about the drugs you are taking, check with your doctor, nurse or pharmacist. Copyright 1353-7390 [employer]. Version: 14.. Revision Date: 11/20/2021. Education Materials [...] for signs of illness. If the pet lion hunter won t allow this, contact your local [...] stopped after 5 minutes of firm pressure [id number] [employer]. [address] [place] [address]. All rights reserved. This information is not intended as a substitute for professional medical care. Always follow yourhealthcare professional's instructions. Additional Information VACCINATE! IT SAVES LIVES! Members of the community who have not yet received the COVID-19 vaccine and would like to receive it can visit one of [facility] vaccine clinics. There are many vaccine clinic locations within the [facility]. For locations and available times, please visit www.[email or web address].[place].gov/. It is important to note that some COVID mobile vaccine clinics are held outdoors and may be canceled in rainy or stormy conditions. To learn more about pediatric vaccinations (ages 5-11), we invite you to visit the [facility] webpage. https://www.[facility].org/pages/7537-Unduq-Tzkgtwtdryv-Kxmmctqawu-Jnpil-Lhl stions.htmlTo learn more about the COVID-19 vaccine, we invite you to visit the CDC website for a list of frequently asked questions. https://www.cdc.gov/coronavirus/2019-ncov/vaccines/faq.html [facility] Patient Portal Access Instructions: Stay connected with your healthcare team and access your personal medical information anytime with the [facility] Patient Portal. If you would like a full copy of your medical records please contact the [facility] Medical Records Department Tuesday through Tuesday between 8a.m. and 4:30p.m. Please follow the directions below to access the portal: 1.Access the email account you provided upon registration to the [facility].2.Look for an invitation email from [facility].3.Open the email and access the invitation link: Accept Invitation to [facility]Alert[facility]4.Fill in the required avitia to create your account. Sign into [email or web address] with your username and password that you [...] you will allow to register on the [facility] Patient Portal for access to your information. You can also access the [facility] Patient Portal on the [facility] [facility]. Simply click on Health Records under XPlace and then click on the BemDireto logo. HOW TO SAFELY DISPOSE OF PRESCRIPTION [...] Call your local pharmacy or go to http://Argus Insights.Freebeepay/7L2Yt5y to find one close to you.3.Make use of household items: Use cat litter or old coffee grounds to dispose medications if other options arenot available. Mix your drugs with these household products, seal them in an airtight container andthrow it into the garbage. Call [facility]: [phone] to be sure your drugs can be [...] been reviewed and explained to me and I,JOÃO MUJICA understand my current condition and have read and understand these discharge instructions. I have received a written copy of the plan/instructions. If I have questions, I am aware that I should contact my doctor. 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 Author Type: Nurse Clinician Type: Progress Notes Filed: 03/11/2023 10:16 Note Text: Patient given written information about EGD and Lopez pH probe and the prep instructions. Verbally discussed and reviewed the information with the patient. All of patient's questions were answered. Roberto Hemphill [facility]01-26-2024 NoteHNO ID: [id number] Author: ROBERTO HEMPHILL RN Service: ? Author Type: Nurse Clinician Type: Progress Notes Filed: 03/11/2023 10:09 Note Text: .[facility]01-26-2024 NoteHNO ID: [id number] Author: CHERRY HERNANDEZ MD Service: ? Author Type: Physician Type: Progress Notes Filed: 03/11/2023 09:55 Note Text: SURGICAL SERVICES HISTORY AND PHYSICAL EXAMINATION SERVICE DATE: 03/11/2023 SERVICE TIME: 9:26 AM PRIMARY CARE PHYSICIAN: [facility] SUBJECTIVE CHIEF COMPLAINT: nausea HISTORY OF PRESENT ILLNESS: Ms. Mujica is a 57 year old female with a PMH of obesity (BMI 32.89), NATO (getting fitted for CPAP), aortic regurgitation, PTSD (severe), and GERD who presents for surgical consultation. Surgical consultation was requested by the patient's referring physician, [facility] in [place]. A copy of this consultation note will [...] a GES in the past at the [facility] [place]. She does not recall the results, but [...] etoh, or marijuana. 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 Curiel LIGATE FALLOPIAN TUBE 1991 [place] PAST SURGICAL HISTORY OF 2004 ORIF femur, [facility] TOTAL ABDOMINAL HYSTERECT W/WO RMVL TUBE OVARY 2004 Hysterectomy, LUZ -- ovaries intact, Dr. Luz Garcia in [place] FAMILY HISTORY: FAMILY HISTORY Problem Relation Age of Onset Coronary Artery Disease Mother CAD, no [place]; first diagnosed mid-50's? Coronary Artery Disease Maternal Grandmother [place], CAD Coronary Artery Disease Maternal Grandfather [place], CAD None Father UNKNOWN --- Colon Cancer [...] heartburn, nausea and vomiting. 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 [facility] 01-12-2024 Hospital Discharge instructions Patient [...] including vitamins, herbs, eye drops, creams, and btbd-cqy-edhghmv medicines. Any blood disorders you have. Any [...] 10/03/2013 Document Revised: 04/27/2018 Document Reviewed: 12/20/2016 LK FREEMAN Patient Education 2020 [employer]. 02/25/2023 11:48:55 Colonoscopy, Adult, Care After, Ipaf-wo-Nqir Colonoscopy, Adult, Care After This sheet gives [...] are soft and easy to digest. Take kujs-ati-ibubnba or prescription medicines only as told by [...] 03/05/2011 Document Revised: 12/01/2017 Document Reviewed: 10/25/2016 LK FREEMAN Patient Education 2020 [employer]. 02/25/2023 11:48:48 Monitored Anesthesia Care, Care After [...] before eating solid foods. General instructions Take kyta-uvc-nitxsan and prescription medicines only as told by [...] 05/23/2016 Document Revised: 05/01/2018 Document Reviewed: 05/23/2016 LK FREEMAN Patient Education 2020 [employer]. 02/25/2023 11:48:42 Monitored Anesthesia Care, Care After [...] before eating solid foods. General instructions Take wtan-epe-eisgizv and prescription medicines only as told by [...] 05/23/2016 Document Revised: 05/01/2018 Document Reviewed: 05/23/2016 LK FREEMAN Patient Education Sensorly. Follow Up Care 01/12/2023 07:57:56 With:CHET AVILA MD Address: [address] [place], [place] [address]y [address] [address] [phone] When: Unknown Comments:CALL DR AVILA WITH ANY QUESTIONS OR CONCERNS YOU MAY NEED A CAPSULE ENDOSCOPY . YOU MAY HAVE A CHRONIC BLEED SOMEWHERE. RESART YOUR COUMADIN AND HEPARIN WAS INSTRUCTED BY DR AVILA. TAKE AT LEASTTWO FLINTSTONE VITAMINS WITH IRON DAILY. YOU SHOULD ACTUALLY BE GETTING 60MG OF IRON A DAY. GO TO THE EMERGENCY ROOM WITH ANY URGENT CONCERNS. [facility] 01-12-2024 Note Discharge Instructions Thank you for allowing [facility] to assist you with your healthcare needs. The following is importantdischarge information regarding your hospital visit. Your Care Team [place], CLINIC DR. AVILA What to do next Follow Up Appointments Follow Up with CHET AVILA MD When Why: CALL DR AVILA WITH ANY QUESTIONS OR CONCERNS YOU MAY NEED A CAPSULE ENDOSCOPY . YOU MAY HAVEA CHRONIC BLEED SOMEWHERE. RESART YOUR COUMADIN AND HEPARIN WAS INSTRUCTED BY DR AVILA. TAKE ATLEAST TWO FLINTSTONE VITAMINS WITH IRON DAILY. YOU SHOULD ACTUALLY BE GETTING 60MG OF IRON A DAY. GO TO THE EMERGENCY ROOM WITH ANY URGENT CONCERNS. Where: [address] [place] [address] [phone] The Following Activity and Diet Have Been [...] including vitamins, herbs, eye drops, creams, and dsvb-omq-gcpbrju medicines. Any blood disorders you have. Any [...] 10/03/2013 Document Revised: 04/27/2018 Document Reviewed: 12/20/2016 LK FREEMAN Patient Education 2020 [employer]. Colonoscopy, Adult, Care After This sheet gives [...] are soft and easy to digest. Take ssaa-wdc-jmoyxsz or prescription medicines only as told by [...] 03/05/2011 Document Revised: 12/01/2017 Document Reviewed: 10/25/2016 ElseVirgance Patient Education 2020 [employer]. Monitored Anesthesia Care, Care After These instructions [...] before eating solid foods. General instructions Take mnzn-wry-xnzsotc and prescription medicines only as told by [...] 05/23/2016 Document Revised: 05/01/2018 Document Reviewed: 05/23/2016 LK FREEMAN Patient Education 2020 [employer]. Monitored Anesthesia Care, Care After These instructions [...] before eating solid foods. General instructions Take ckfl-bla-auhvfbq and prescription medicines only as told by [...] 05/23/2016 Document Revised: 05/01/2018 Document Reviewed: 05/23/2016 LK FREEMAN Patient Education 2020 [employer]. Additional Information VACCINATE! IT SAVES LIVES! Members of the community who have not yet received the COVID-19 vaccine and would like to receive it can visit one of [facility] vaccine clinics. There are many vaccine clinic locations within the [facility]. For locations and available times, please visit [email or web address] It is important to note that some COVID mobile vaccine clinics are held outdoors and may be canceled in rainy or stormy conditions. To learn more about pediatric vaccinations (ages 5-11), we invite you to visit the [facility] webpage. https://www.[email or web address].org/pages/9250-Tvsal-Pntpkudlgmn-Dmziaszqgk-Ndboc-Npm stions.htmlTo learn more about the COVID-19 vaccine, we invite you to visit the CDC website for a list of frequently asked questions.https://www.cdc.gov/coronavirus/2019-ncov/vaccines/faq.html [facility] Patient Portal Access Instructions: Stay connected with your healthcare team and access your personal medical information anytime with the [facility] Patient Portal. Please follow the directions below to create your [facility] account: 1.Access the email account you provided upon registration to the hospital/physician office.2.Look for an invitation email from [facility].3.Open the email and access the invitation link: Accept[facility]itation to [facility].4.Fill in the required avitia to create your account. To access your account, visit [email or web address]. Click the blue button labeled Access Patient [...] who you will allowto register on the [facility] Patient Portal for access to your information. You can also access the [facility] Patient Portal on the [facility] buddy. Simply click on Patient Portal and then log into your account. If you would like to receive a full copy of your medical records, please contact the [facility] Medical Records Department by calling [phone], Tuesday through Tuesday between 8 a.m. and [...] Call your local pharmacy or go to http://bit.Freebeepay/9S6Ac0x to find one close to you.3.Make use of household items: Use cat litter or old coffee grounds to dispose medications if other options arenot available. Mix your drugs with these household products, seal them in an airtight container andthrow it into the garbage. Call [facility]: [phone] to be sure your drugs can be [...] Materials Capsule Endoscopy Colonoscopy, Adult, Care After, Nuym-up-Exmg Monitored Anesthesia Care, Care After Monitored Anesthesia Care, Care After Medication Leaflets My discharge plan and instructions have been reviewed and explained to me and ISIL MAURICA J understand my current condition and have read and understand these discharge instructions. I have received a written copy of the plan/instructions. If I have questions, I am aware that I should contact my doctor. 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 Signature: Date/Time: Relationship to Patient: Witness Name/Signature: Date/Time: [facility]01-12-2024 Anesthesiology Consult note Patient: JOÃO MUJICA Age: 57 years Sex: Female : [...] by TAZ ROGER on 02/25/2023 11:07 AM [facility]01-12-2024 Anesthesiology Consult note Patient: JOÃO MUJICA Age: 57 years Sex: Female : [...] list: Medical BMI 32.0-32.9,adult / SNOMED CT 726471440 / Confirmed Chest pain / SNOMED CT 07837446 / Confirmed Hyperlipidemia / SNOMED CT [id number] / Confirmed Hypertension / SNOMED CT 30570421 / Confirmed Dissociative amnesia / SNOMED CT 664692091 / Confirmed PTSD - Post-traumatic stress disorder / SNOMED CT 792640116 / Confirmed Weight gain / SNOMED CT 43780017 / Confirmed, Active Problems (10) Aortic valve replaced BMI 32.0-32.9,adult Chest pain Disassociation disorder Dissociative amnesia History of hysterectomy Hyperlipidemia Hypertension PTSD - Post-traumatic stress disorder Weight gain Histories Past Medical History: Active Hypertension (74242007) Hyperlipidemia ([id number]) Family History: HTN - Hypertension Mother Procedure history: Esophagogastroduodenoscopy (603267682) on 11/05/2022 at 57 Years. Stress testing using pharmacologic-induced stress (2948432941) on 10/10/2020 at 55 Years. Comments: 07/02/2021 12:10 EDT - Anna Carty LPN-normal CXR - Chest X-ray (6836947302) on 09/10/2020 at 55 Years. Comments: 07/02/2021 12:15 EDT Anna Dukes LPN-mild vascualr congestion Femur (843556634). Hysterectomy (676490950). Heart (458348020). Comments: 11/10/2013 12:01 KYE SAMANO artificial heart valve, aorta Cholecystectomy (78843488). Sternotomy (31382204). Replacement of aortic valve (55308138). 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 Nutrition/Health 05/19/2021 Type of diet: [...] Signs(last 24 hrs) Last Charted Heart Rate Mrjiboxby37 bpm (FEB 25 10:50) Resp Rate 15 br/min (FEB 25 07:40) SBPH 152mmHg (FEB 25 07:40) DBP87 mmHg (FEB 25 07:40) BMI31.81 (FEB 25 07:49) Measurements from flowsheet : Measurements 02/25/2023 7:49 EST Height 162.5 cm Admission Weight 84 kg Weight Method Stated [place] Body Weight 54.65 kg BSA Admission 1.89 Body Mass Index 31.81 kg/m2 02/25/2023 7:40 EST Height 162.5 cm Admission Weight 84 kg [place] Body Weight 54.65 kg Admission Body Mass [...] CAt - Case Attendee 02/25/2023 10:46 EST [place] History and Physical 02/25/2023 10:45 EST Respiratory [...] EST Designated Person #1 We May Share AMANDA Magana [phone] Designated Person #1 Relationship Son Designated Person #2 We May Share PHI Kevin Rodriguez/ son Designated Person #2 Relationship Son Height 162.5 cm Admission Weight 84 kg Weight Method Stated [place] Body Weight 54.65 kg BSA Admission 1.89 [...] evident Teaching Method Explanation Preferred Spoken Language Macedonian Preferred Written Language Macedonian Information Given by Patient Patient's Current [facility] [place] Discharge To, Anticipated Home independently Prev Test [...] Attendee SN - CAt - Role 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 Assessment and Plan [place] Society of Anesthesiologists (ASA) physical status classification: Class III. Anesthetic Preoperative Plan Anesthetic technique: MAC. Informed consent: signed by patient. 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 MICRO - Microbiology PROCEDURE: [...] Locations *1: This test was performed at: [facility], [address] [place] [address], [address]- , [facility] ([place])12-07-2022 Evaluation + Plan note Diagnostic Tests Pending * Urine Culture 12/07/22 [facility] 10-24-2023 Hospital Discharge instructions Patient [...] or legs Numbness in the groin area 9539-9151 [employer]. [address] [place] [address]. All rights reserved. This information is not intended as a substitute for professional medical care. Always follow yourhealthcare professional's instructions. Follow Up Care 12/07/2022 09:14:15 With:MT, [facility] Address: [address] [place] [address] [place] [address]- When:2-4 days [facility] 10-24-2023 Note Discharge Instructions Thank you for allowing [facility] to assist you with your healthcare needs. [...] Schedule the Following Appointments Follow Up with [facility] When Within 2-4 days Where: [address] [place] [address] [place] [address]- Allergies NKA Medications Please ask your primary [...] or legs Numbness in the groin area 6033-0325 [employer]. [address] [place] [address]. All rights reserved. This information is not intended as a substitute for professional medical care. Always follow yourhealthcare professional's instructions. Additional Information VACCINATE! IT SAVES LIVES! Members of the community who have not yet received the COVID-19 vaccine and would like to receive it can visit one of [facility] vaccine clinics. There are many vaccine clinic locations within the [facility]. For locations and available times, please visit [email or web address]/. It is important to note that some COVID mobile vaccine clinics are held outdoors and may be canceled in rainy or stormy conditions. To learn more about pediatric vaccinations (ages 5-11), we invite you to visit the [facility] webpage. https://www.[email or web address].org/pages/3212-Uivxu-Izikrxvgdez-Emndjrgpsa-Awbnu-Qqq stions.htmlTo learn more about the COVID-19 vaccine, we invite you to visit the CDC website for a list of frequently asked questions. https://www.cdc.gov/coronavirus/2019-ncov/vaccines/faq.html [facility] Patient Portal Access Instructions: Stay connected with your healthcare team and access your personal medical information anytime with the [facility] Patient Portal. If you would like a full copy of your medical records please contact the [facility] Medical Records Department Tuesday through Tuesday between 8a.m. and 4:30p.m. Please follow the directions below to access the portal: 1.Access the email account you provided upon registration to the hospital.2.Look for an invitation email from [facility].3.Open the email and access the invitation link: Accept Invitation to [facility]4.Fill in the required avitia to create your account. Sign into [email or web address] with your username and password that you [...] you will allow to register on the [facility] Patient Portal for access to your information. You can also access the [facility] Patient Portal on the [facility]. Simply click on Health Records under XPlace and then click on the [facility] logo. HOW TO SAFELY DISPOSE OF PRESCRIPTION [...] Call your local pharmacy or go to http://Argus Insights.Freebeepay/1F8Qn0q to find one close to you.3.Make use of household items: Use cat litter or old coffee grounds to dispose medications if other options arenot available. Mix your drugs with these household products, seal them in an airtight container andthrow it into the garbage. Call [facility]: [phone] to be sure your drugs can be [...] been reviewed and explained to me and I,JOÃO MUJICA understand my current condition and have read and understand these discharge instructions. I have received a written copy of the plan/instructions. If I have questions, I am aware that I should contact my doctor. 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 [address] [place] [address]. All rights reserved. This information is not intended as a substitute for professional medical care. Always follow yourhealthcare professional's instructions. Follow Up Care 08/12/2022 16:55:43 With:MT, CLINIC Address: [address] [place], [place] [address] [place] [address]- When:2-4 days With:Call Physician Referral Address:Unknown When:2-4 days [facility] 06-29-2023 Note ORIGINAL EXAMINATION: ONE [...] Sign Date: 08/12/2022 7:19:21 PM Ordering Provider: [facility]06-29-2023 Note Discharge Instructions Thank you for allowing [facility] to assist you with your healthcare needs. The following is importantdischarge information regarding your hospital visit. Diagnosis from Today's Visit Near syncope Shortness of breath What to Do Next Instructions from Your Care Team No qualifying data available. Post Acute Orders No qualifying data available. You Need to Schedule the Following Appointments Follow Up with MT, CLINIC When Within 2-4 days Where: [place] [address]- Follow Up with Call Physician Referral When [...] when standing up too quickly or straining 2637-6992 [employer]. [address] [place] [address]. All rights reserved. This information is not intended as a substitute for professional medical care. Always follow yourhealthcare professional's instructions. Additional Information VACCINATE! IT SAVES LIVES! Members of the community who have not yet received the COVID-19 vaccine and would like to receive it can visit one of [facility] vaccine clinics. There are many vaccine clinic locations within the [facility]. For locations and available times, please visit [email or web address]/. It is important to note that some COVID mobile vaccine clinics are held outdoors and may be canceled in rainy or stormy conditions. To learn more about pediatric vaccinations (ages 5-11), we invite you to visit the [facility] webpage. https://www.[email or web address].org/pages/1278-Bcjyc-Cbdvwickhqk-Onykqqtkuw-Yprzh-Apo stions.htmlTo learn more about the COVID-19 vaccine, we invite you to visit the CDC website for a list of frequently asked questions. https://www.cdc.gov/coronavirus/2019-ncov/vaccines/faq.html [facility] Patient Portal Access Instructions: Stay connected with your healthcare team and access your personal medical information anytime with the [facility] Patient Portal. If you would like a full copy of your medical records please contact the [facility] Medical Records Department Tuesday through Tuesday between 8a.m. and 4:30p.m. Please follow the directions below to access the portal: 1.Access the email account you provided upon registration to the [facility].2.Look for an invitation email from [facility].3.Open the email and access the invitation link: Accept Invitation to [facility]4.Fill in the required avitia to create your account. Sign into [email or web address] with your username and password that you [...] you will allow to register on the [facility] Patient Portal for access to your information. You can also access the [facility] Patient Portal on the [facility]. Simply click on Health Records under XPlace and then click on the [facility] logo. HOW TO SAFELY DISPOSE OF PRESCRIPTION [...] Call your local pharmacy or go to http://Argus Insights.Freebeepay/7J1Mv5b to find one close to you.3.Make use of household items: Use cat litter or old coffee grounds to dispose medications if other options arenot available. Mix your drugs with these household products, seal them in an airtight container andthrow it into the garbage. Call [facility]: [phone] to be sure your drugs can be [...] been reviewed and explained to me and I,JOÃO MUJICA understand my current condition and have read and understand these discharge instructions. I have received a written copy of the plan/instructions. If I have questions, I am aware that I should contact my doctor. 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 Signature: Date/Time: Relationship to Patient: Witness Name/Signature: Date/Time: [facility]06-29-2023 Note ORIGINAL EXAMINATION: ONE XRAY [...] Sign Date: 08/12/2022 7:19:21 PM Ordering Provider: [facility] [id number] Hospital Discharge instructions Patient Education 06/04/2022 09:34:25 [...] soft drinks. Herbal tea. Fats and oils [place] oil. Canola oil. Grapeseed oil. [place] oil. Seasoning and other foods Low-fat salad dressing. Ketchup. Low-fat mayonnaise. All spices except pepper. Low-sodium seasoningmixes. Foods to avoid Meats and other protein foods Fatty meats. Fried meats. Any meat that causes symptoms. Dairy Whole milk. Ice cream. Cream. Chocolate milk. Beverages Alcohol. Coffee. Cola and energy drinks. Black or green tea. [place]. Fats and oils Butter. Lard. Ghee. Seasoning [...] 04/24/2012 Document Revised: 01/13/2018 Document Reviewed: 03/14/2017 LK FREEMAN Patient Education 2020 [employer]. Follow Up Care 06/02/2022 10:34:36 With:MT, CLINIC Address: [address] [place] [address] [place] [address]- When:1-2 days Comments:Please call the office to schedule a follow up appointment [facility] 04-21-2023 Note Discharge Instructions Thank you for allowing [facility] to assist you with your healthcare needs. The following is importantdischarge information regarding your hospital visit. Your Care Team MT, CLINIC What to do next Follow Up Appointments Follow Up with [facility] When Within 1-2 days Why: Please call the office to schedule a follow up appointment Where: [address] [place], [place] [address] [place] [address]- The Following Activity and Diet Have Been [...] times a day Refills: 5 Pickup at [facility] New sucralfate (sucralfate 1 g oral tablet) 1 tab(s) by mouth Three (3) times a day Duration: 30 Days Pickup at [facility] Changed warfarin (Coumadin) 3 Milligram by mouth Once a day Pharmacy Information [facility]: [address], [place] [phone] What How Much When Why Comments Stop [...] soft drinks. Herbal tea. Fats and oils [place] oil. Canola oil. Grapeseed oil. [place] oil. Seasoning and other foods Low-fat salad dressing. Ketchup. Low-fat mayonnaise. All spices except pepper. Low-sodium seasoningmixes. Foods to avoid Meats and other protein foods Fatty meats. Fried meats. Any meat that causes symptoms. Dairy Whole milk. Ice cream. Cream. Chocolate milk. Beverages Alcohol. Coffee. Cola and energy drinks. Black or green tea. [place]. Fats and oils Butter. Lard. Ghee. Seasoning [...] 04/24/2012 Document Revised: 01/13/2018 Document Reviewed: 03/14/2017 LK FREEMAN Patient Education 2020 [employer]. Additional Information VACCINATE! IT SAVES LIVES! Members of the community who have not yet received the COVID-19 vaccine and would like to receive it can visit one of [facility] vaccine clinics. There are many vaccine clinic locations within the [facility]. For locations and available times, please visit https://gettheshot.coronavirus.[place].gov/. It is important to note that some COVID mobile vaccine clinics are held outdoors and may be canceled in rainy or stormy conditions. To learn more about pediatric vaccinations (ages 5-11), we invite you to visit the [facility] webpage. https://www.[facility].org/pages/5480-Kptow-Dpslkmxeyxa-Wszurcqqlx-Kvtiv-Ftb stions.htmlTo learn more about the COVID-19 vaccine, we invite you to visit the CDC website for a list of frequently asked questions. https://www.cdc.gov/coronavirus/2019-ncov/vaccines/faq.html [facility] Patient Portal Access Instructions: Stay connected with your healthcare team and access your personal medical information anytime with the [facility] Patient Portal.If you would like a full copy of your medical records, please contact the [facility] Medical Records Department, Tuesday through Tuesday between 8a.m. and 4:30p.m. Please follow the directions below to access the portal: 1.Access the email account you provided upon registration to the hospital.2.Look for an invitation email from [facility].3.Open the email and access the invitation link: Accept Invitation to [facility]4.Fill in the required avitia to create your account. Sign into [email or web address] with your username and password that you [...] you will allow to register on the [facility] Patient Portal for access to your information. You can also access the [facility] Patient Portal on the [employer]. Simply click on Health Records under XPlace and then click on the [facility] logo. HOW TO SAFELY DISPOSE OF PRESCRIPTION [...] Call your local pharmacy or go to http://Argus Insights.Freebeepay/2O2Er6n to find one close to you.3.Make use of household items: Use cat litter or old coffee grounds to dispose medications if other options arenot available. Mix your drugs with these household products, seal them in an airtight container andthrow it into the garbage. Call [facility]: [phone] to be sure your drugs can be [...] been reviewed and explained to me and I,JOÃO MUJICA understand my current condition and have read and understand these discharge instructions. I have received a written copy of the plan/instructions. If I have questions, I am aware that I should contact my doctor. 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 Not known to [...] to schedule a follow up appointment Where: [address] [place] [address] [place] [address]- Follow Up Appointments No qualifying data available. [...] DAVID PRATT MD on 06/04/2022 10:53 AM [id number] Note Date of Service 06/03/22 Chief Complaint [...] DAVID PRATT MD on 06/03/2022 11:45 PM [facility]nem[facility]hi04-13-5230 Anesthesiology Consult note Patient: JOÃO MUJICA Age: 56 years Sex: Female : [...] KATHLEEN ROBERTSON MD on 06/03/2022 03:09 PM [facility]jegovdo50-67-5692 Anesthesiology Consult note Patient: JOÃO MUJICA Age: 56 years Sex: Female : 1965 Associated Diagnoses: None Author: JEAN-PAUL VARMA MD Preoperative Information NPO >8 hours Anesthesia history Patient's history: negative. History of Present Illness 56yoF with PMH aortic valve replacement on coumadin, obesity, HTN , HLP presented to [facility] for hematemesis since 7PM on 06/01 presenting [...] list: Medical BMI 32.0-32.9,adult / SNOMED CT 070217150 / Confirmed Chest pain / SNOMED CT 40737192 / Confirmed Hyperlipidemia / SNOMED CT [id number] / Confirmed Hypertension / SNOMED CT 67798626 / Confirmed Dissociative amnesia / SNOMED CT 447221269 / Confirmed PTSD - Post-traumatic stress disorder / SNOMED CT 806545321 / Confirmed Weight gain / SNOMED CT 94394925 / Confirmed, Active Problems (9) Aortic valve replaced BMI 32.0-32.9,adult Chest pain Disassociation disorder Dissociative amnesia Hyperlipidemia Hypertension PTSD - Post-traumatic stress disorder Weight gain Histories Past Medical History: Active Hypertension (24080841) Hyperlipidemia ([id number]) Procedure history: Stress testing using pharmacologic-induced stress (0144766254) on 10/10/2020 at 55 Years. Comments: 07/02/2021 12:10 EDT - Anna Carty LPN-normal CXR - Chest X-ray (2051643667) on 09/10/2020 at 55 Years. Comments: 07/02/2021 12:15 EDT - Anna Carty LPN-mild vascualr congestion Femur (985237891). Hysterectomy (954015824). Heart (472118263). Comments: 11/10/2013 12:01 EDT - KYE VALLEJO artificial heart valve, aorta Cholecystectomy (93528785). Sternotomy (87186340). Replacement of aortic valve (20272089). 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 Physical Examination Vital Signs(last 24 hrs) Last Charted Temp Oral37 DegC (JUN 03 10:48) Heart Rate Emdbihjny52 bpm (JUN 03 14:48) Resp Rate L 12br/min (JUN 03 14:48) VFV771 mmHg (JUN 03 14:48) DBP68 mmHg (JUN 03 14:48) BMI32.3 (JUN 02 20:05) Measurements from flowsheet : Measurements 06/02/2022 20:05 EDT Height 162.6 cm Height in inches 64 inch(es) Admission Weight 85.4 kg Weight Lbs 187.9 lb [place] Body Weight 54.74 kg Type of Scale [...] Documentation reviewed: Current records. Assessment and Plan [place] Society of Anesthesiologists (ASA) physical status classification: Class III. Anesthetic Preoperative Plan Premedication: intravenous. Anesthetic technique: MAC. Induction: intravenously. Maintenance airway: NC. Postoperative pain management: Per surgeon. Risks discussed: nausea, vomiting, headache, sore throat, dental injury, hypotension, allergic reaction, serious complications. Informed consent: signed by patient. 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 [address] [place] [address]. All rights reserved. This information is not intended as a substitute for professional medical care. Always follow yourhealthcare professional's instructions. Follow Up Care 02/11/2022 11:51:22 With:[facility] Address: [address] [place] [address]- When:2-4 days Comments:Return to ED if symptoms worsen [facility] 12-29-2022 Emergency department Discharge summary Discharge Instructions Thank you for allowing [facility] to assist you with your healthcare needs. The following is importantdischarge information regarding your hospital visit. Diagnosis from Today's Visit Lumbar strain Flank pain What to Do Next Instructions from Your Care Team No qualifying data available. Post Acute Orders No qualifying data available. You Need to Schedule the Following Appointments Follow Up with [facility] When Within 2-4 days Why: Return to ED if symptoms worsen [facility] [address] [facility] [place] [address]- Allergies NKA Medications Please ask your primary [...] Numbness in the groin or genital area [phone] [employer]. [address] [place] [address]. All rights reserved. This information is not intended as a substitute for professional medical care. Always follow yourhealthcare professional's instructions. Additional Information VACCINATE! IT SAVES LIVES! Members of the community who have not yet received the COVID-19 vaccine and would like to receive it can visit one of [facility] vaccine clinics. There are many vaccine clinic locations within the [facility]. For locations and available times, please visit www.[email or web address]. It is important to note that some COVID mobile vaccine clinics are held outdoors and may be canceled in rainy orstormy conditions. To learn more about pediatric vaccinations (ages 5-11), we invite you to visit the [facility] webpage. https://www.[facility].org/pages/6473-Uipfq-Zvwtfwrnxyq-Viplofnpbt-Akorf-Clr stions.htmlTo learn more about the COVID-19 vaccine, we invite you to visit the [facility] website for a list of frequently asked questions. https://[email or web address]/assets/Samlaggy-pbg-Cbmtqgxt/vcfwz-Pbrbjay-Aouhgzsxrr _Asked-Questions.pdf [facility] OneChart Patient Portal Access Instructions: Stay connected with your healthcare team and access your personal medical information anytime with the [facility] Patient Portal. If you would like a full copy of your medical records please contact the [facility] Medical Records Department Tuesday through Tuesday between 8a.m. and 4:30p.m. Please follow the directions below to access the portal: 1.Access the email account you provided upon registration to the [facility].2.Look for an invitation email from [facility].3.Open the email and access the invitation link: Accept Invitation to [facility]4.Fill in the required avitia to create your account. Sign into [email or web address] with your username and password that you [...] you will allow to register on the [facility] Patient Portal for access to your information. You can also access the [facility] Patient Portal on the [employer] Operations buddy. Simply click on Health Records under XPlace and then click on the [facility] logo. HOW TO SAFELY DISPOSE OF PRESCRIPTION [...] Call your local pharmacy or go to http://Argus Insights.Freebeepay/4O6Qf8a to find one close to you.3.Make use of household items: Use cat litter or old coffee grounds to dispose medications if other options arenot available. Mix your drugs with these household products, seal them in an airtight container andthrow it into the garbage. Call [facility]: [phone] to be sure your drugs can be [...] aware that I should contact my doctor. 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 You may use coum-cyl-ddipada acetaminophen or ibuprofen for fever, muscle aching, [...] body and be dangerous to your health. Wsiq-slo-errvxzj remedies won't shorten the length of the [...] or as directed by your healthcare provider 7214-6877 [employer]. [address] [place] [address]. All rights reserved. This information is not intended as a substitute for professional medical care. Always follow yourhealthcare professional's instructions. Follow Up Care 12/15/2021 02:27:15 With:[facility] Address: [address] [place] [address] [place] [address]- When:2-4 days [facility] 11-01-2022 Note Discharge Instructions Thank you for allowing [facility] to assist you with your healthcare needs. [...] Schedule the Following Appointments Follow Up with [facility] When Within 2-4 days Where: [address] [place], [place] [address] [place] [address]- Allergies NKA Medications Please ask your primary [...] the smoke from others. You may use cipb-lec-jfoadlc acetaminophen or ibuprofen for fever, muscle aching, [...] body and be dangerous to your health. Zfub-pqn-wyepvph remedies won't shorten the length of the [...] or as directed by your healthcare provider [phone] [employer]. [address] [place] [address], [place] [address]. All rights reserved. This information is not intended as a substitute for professional medical care. Always follow yourhealthcare professional's instructions. Additional Information VACCINATE! IT SAVES LIVES! Members of the community who have not yet received the COVID-19 vaccine and would like to receive it can visit one of [facility] vaccine clinics. There are many vaccine clinic locations within the [facility]. For locations and available times, please visit www.[email or web address]. It is important to note that some COVID mobile vaccine clinics are held outdoors and may be canceled in rainy orstormy conditions. To learn more about pediatric vaccinations (ages 5-11), we invite you to visit the [facility] webpage. https://www.[facility].org/pages/9695-Pswix-Wltqzjtwhak-Giodoxczpb-Tqyig-Hla stions.htmlTo learn more about the COVID-19 vaccine, we invite you to visit the [facility] website for a list of frequently asked questions. [email or web address]://[email or web address]/Scxfswea-paw-Ieiwawai/dbifz-Luaplce-Zuruvinjnw _Asked-Questions.pdf [facility] Patient Portal Access Instructions: Stay connected with your healthcare team and access your personal medical information anytime with the [facility] Patient Portal. If you would like a full copy of your medical records please contact the [facility] Medical Records Department Tuesday through Tuesday between 8a.m. and 4:30p.m. Please follow the directions below to access the portal: 1.Access the email account you provided upon registration to the hospital.2.Look for an invitation email from [facility].3.Open the email and access the invitation link: Accept Invitation to [facility]4.Fill in the required avitia to create your account. Sign into [email or web address] with your username and password that you [...] you will allow to register on the [facility] Patient Portal for access to your information. You can also access the [facility] Patient Portal on the [employer] Operations buddy. Simply click on Health Records under XPlace and then click on the [facility] logo. HOW TO SAFELY DISPOSE OF PRESCRIPTION [...] Call your local pharmacy or go to http://Argus Insights.Freebeepay/7L1Kt5c to find one close to you.3.Make use of household items: Use cat litter or old coffee grounds to dispose medications if other options arenot available. Mix your drugs with these household products, seal them in an airtight container andthrow it into the garbage. Call [facility]: [phone] to be sure your drugs can be [...] been reviewed and explained to me and I,JOÃO MUJICA understand my current condition and have read and understand these discharge instructions. I have received a written copy of the plan/instructions. If I have questions, I am aware that I should contact my doctor. 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 Signature: Date/Time: Relationship to Patient: Witness Name/Signature: Date/Time: [facility]10-06-2022 Hospital Discharge instructions Patient Education [...] very fast heart rate Loss of consciousness [phone] [employer] [place] [address]. All rights reserved. This information is not intended as a substitute for professional medical care. Always follow yourhealthcare professional's instructions. Follow Up Care 11/19/2021 16:38:37 With:[facility] Address: [address] [place] [address] [place] [address]- When: Unknown Comments:Call tomorrow [facility] 10-06-2022 Emergency department Discharge summary Discharge Instructions Thank you for allowing [facility] to assist you with your healthcare needs. The following is importantdischarge information regarding your hospital visit. Diagnosis from Today's Visit Hypokalemia SOB - Shortness of breath What to Do Next Instructions from Your Care Team No qualifying data available. Post Acute Orders No qualifying data available. You Need to Schedule the Following Appointments Follow Up with [facility] When Why: Call tomorrow Where: [address] [place] [address] [place] [address]- Allergies NKA Medications Please ask your primary [...] 2 tab(s) by mouth Every day Unchanged [facility] Medication ([place] peptides) See instructions 600 mg [...] very fast heart rate Loss of consciousness [phone] [employer]. [address] [place] [address], [place] [address]. All rights reserved. This information is not intended as a substitute for professional medical care. Always follow yourhealthcare professional's instructions. Additional Information VACCINATE! IT SAVES LIVES! Members of the community who have not yet received the COVID-19 vaccine and would like to receive it can visit one of [facility] vaccine clinics. There are many vaccine clinic locations within the [facility]. For locations and available times, please visit www.[email or web address]. It is important to note that some COVID mobile vaccine clinics are held outdoors and may be canceled in rainy orstormy conditions. To learn more about pediatric vaccinations (ages 5-11), we invite you to visit the [facility] webpage. https://www.[facility].org/pages/1945-Nffaj-Vjsibwwnklt-Lespenbckh-Owlww-Xtz stions.htmlTo learn more about the COVID-19 vaccine, we invite you to visit the [facility] website for a list of frequently asked questions. https://[email or web address]/assets/Wnjfbvtw-dnt-Rsixrfqo/jmmjh-Odluart-Ozbeknivpi _Asked-Questions.pdf [facility] Patient Portal Access Instructions: Stay connected with your healthcare team and access your personal medical information anytime with the [facility] Patient Portal. If you would like a full copy of your medical records please contact the [facility] Medical Records Department Tuesday through Tuesday between 8a.m. and 4:30p.m. Please follow the directions below to access the portal: 1.Access the email account you provided upon registration to the hospital.2.Look for an invitation email from [facility].3.Open the email and access the invitation link: Accept Invitation to [facility]4.Fill in the required avitia to create your account. Sign into [email or web address] with your username and password that you [...] you will allow to register on the [facility] Patient Portal for access to your information. You can also access the [facility] Patient Portal on the fluid Operations buddy. Simply click on Health Records under XPlace and then click on the [facility] logo. HOW TO SAFELY DISPOSE OF PRESCRIPTION [...] Call your local pharmacy or go to http://Argus Insights.Freebeepay/6N3Di1s to find one close to you.3.Make use of household items: Use cat litter or old coffee grounds to dispose medications if other options arenot available. Mix your drugs with these household products, seal them in an airtight container andthrow it into the garbage. Call [facility]: [phone] to be sure your drugs can be [...] been reviewed and explained to me and I,JOÃO MUJICA understand my current condition and have read and understand these discharge instructions. I have received a written copy of the plan/instructions. If I have questions, I am aware that I should contact my doctor. 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 Signature: Date/Time: Relationship to Patient: Witness Name/Signature: Date/Time: [facility]10-06-2022 Note ORIGINAL EXAMINATION: ONE XRAY [...] Date: 11/19/2021 6:28:18 PM Ordering Provider: [facility]10-06-2022 Note ORIGINAL EXAMINATION: ONE XRAY VIEW [...] Sign Date: 11/19/2021 6:28:18 PM Ordering Provider: [facility]07-24-2022 Hospital Discharge instructions Patient Education 09/06/2021 20:46:33 [...] or as directed by your healthcare provider [phone] [employer]. [address] [place] [address]. All rights reserved. This information is not intended as a substitute for professional medical care. Always follow yourhealthcare professional's instructions. Follow Up Care 09/06/2021 18:33:05 With:[facility] Address: [address] [place] [address] [place] [address]- When:2-4 days [facility] 07-24-2022 Note Discharge Instructions Thank you for allowing [facility] to assist you with your healthcare needs. The following is importantdischarge information regarding your hospital visit. Diagnosis from Today's Visit SOB - Shortness of breath What to Do Next Instructions from Your Care Team No qualifying data available. Post Acute Orders No qualifying data available. You Need to Schedule the Following Appointments Follow Up with [facility] When Within 2-4 days Where: [address] [place] [address] [place] [address]- Allergies NKA Medications Please ask your primary [...] or as directed by your healthcare provider [phone] [employer]. [address] [place] [address], [place] [address]. All rights reserved. This information is not intended as a substitute for professional medical care. Always follow yourhealthcare professional's instructions. Additional Information VACCINATE! IT SAVES LIVES! Members of the community who have not yet received the COVID-19 vaccine and would like to receive it can visit one of [facility] vaccine clinics. There are many vaccine clinic locations within the [facility]. For locations and available times, please visit www.[email or web address]. It is important to note that some COVID mobile vaccine clinics are held outdoors and may be canceled in rainy orstormy conditions. To learn more about pediatric vaccinations (ages 5-11), we invite you to visit the [facility] webpage. https://www.[facility].org/pages/9644-Tqiyw-Rsewmzkvddj-Jhevvkxyrz-Arkwi-Dal stions.htmlTo learn more about the COVID-19 vaccine, we invite you to visit the [facility] website for a list of frequently asked questions. https://[facility]ap[employer]/assets/Ggqenasb-kmt-Vzwxxbnz/ejfcy-Zqokveq-Slcrbfgwld _Asked-Questions.pdf [facility] Patient Portal Access Instructions: Stay connected with your healthcare team and access your personal medical information anytime with the [facility] Patient Portal. If you would like a full copy of your medical records please contact the [facility] Medical Records Department Tuesday through Tuesday between 8a.m. and 4:30p.m. Please follow the directions below to access the portal: 1.Access the email account you provided upon registration to the hospital.2.Look for an invitation email from [facility].3.Open the email and access the invitation link: Accept Invitation to [facility]4.Fill in the required avitia to create your account. Sign into [email or web address] with your username and password that you [...] you will allow to register on the [facility] Patient Portal for access to your information. You can also access the [facility] Patient Portal on the fluid Operations buddy. Simply click on Health Records under [employer]Place and then click on the [employer]ireto logo. HOW TO SAFELY DISPOSE OF PRESCRIPTION [...] Call your local pharmacy or go to [email or web address] to find one close to you.3.Make use of household items: Use cat litter or old coffee grounds to dispose medications if other options arenot available. Mix your drugs with these household products, seal them in an airtight container andthrow it into the garbage. Call [facility]: [phone] to be sure your drugs can be [...] aware that I should contact my doctor. 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 Signature: Date/Time: Relationship to Patient: Witness Name/Signature: Date/Time: [facility]07-24-2022 Note ORIGINAL EXAMINATION: ONE XRAY [...] Sign Date: 09/06/2021 7:13:34 PM Ordering Provider: BROOKE ESPINOZA [place] [id number] Note ORIGINAL EXAMINATION: ONE XRAY VIEW OF [...] Sign Date: 09/06/2021 7:13:34 PM Ordering Provider[facility] [id number] Evaluation + Plan note Future Scheduled Tests Laboratory* [facility] History of Present illness Narrative* Eric [...] discharged in stable condition. Eric Huff MD [id number] SSI File#: [id number] END OF DOCUMENT / CHANGE LOG FOLLOWS Last Edited By Elec. Signed By Eric Huff MD #PAWPR Eric Huff MD #PAWPR on 01/15/2021 08:52 ET on 01/15/2021 08:52 ET Revision Number - 2 ^^^ Verified/Reviewed by 01/15/21 [id number] [facility] PATIENT NAME: JOÃO MUJICA [address] [facility] [address] [place] MEDICAL REC #: [id number] [place] [address] [facility] REPORT STATCARE PHYSICIAN documented [facility] Clinic[facility] Plan note Future Scheduled Tests Laboratory* Lipid Profile 08/19/21 [facility] Evaluation note* Diagnosis Gastroesophageal reflux disease, unspecified whether esophagitis present History of bariatric surgery Bariatric surgery status documented in this encounter [facility] noteNo assessment information availableWHolzer Health System Work Phone: Evaluation note* Diagnosis Helicobacter pylori infection- Primary Helicobacter pylori (H. pylori) [facility] this [facility]* Diagnosis Helicobacter pylori infection Helicobacter pylori (H. pylori) documented in this [facility]* Diagnosis Helicobacter pylori infection- Primary Helicobacter [...] unspecified obesity type documented in this [facility]* Diagnosis Gastroesophageal reflux disease with esophagitis [...] Unspecified deficiency anemia [facility] Diagnosis Gastroesophageal reflux disease with esophagitis [...] apnea (adult) (pediatric) documented in this [facility]* Diagnosis Gastroesophageal reflux disease, unspecified whether esophagitis present Preop examination Preoperative examination, unspecified Obstructive sleep apnea Obstructive sleep apnea (adult) (pediatric) H/O mechanical aortic valve replacement Heart valve replaced by other means Primary hypertension Unspecified essential hypertension Gastroesophageal reflux disease with esophagitis without hemorrhage documented in this encounter [facility]* Diagnosis Gastroesophageal reflux disease, unspecified whether esophagitis present Preop examination Preoperative examination, unspecified Obstructive sleep apnea Obstructive sleep apnea (adult) (pediatric) H/O mechanical aortic valve replacement Heart valve replaced by other means Primary hypertension Unspecified essential hypertension Increased PTH level- Primary Unspecified endocrine disorder Blood alkaline phosphatase increased compared with prior measurement documented in this encounter [facility] note* Diagnosis Gastroesophageal reflux disease, unspecified whether [...] apnea (adult) (pediatric) documented in this encounter [facility] note* Diagnosis Gastroesophageal reflux disease, unspecified whether esophagitis present Preop examination Preoperative examination, unspecified Obstructive sleep apnea Obstructive sleep apnea (adult) (pediatric) H/O mechanical aortic valve replacement Heart valve replaced by other means Primary hypertension Unspecified essential hypertension Class 1 obesity with serious comorbidity and body mass index (BMI) of 31.0 to 31.9 in adult, unspecified obesity type- Primary documented [facility] Narrative No data available for this section [facility] Hospital Discharge instructions No data available for this section [facility] Note* GARRETT MALONE MD: SIGN, VERIFY Event Display: EKG [ED AO] - CV Authored Date: [facility] Progress note No data available for this section [facility] Reason for referral (narrative)* Diagnostic Procedure Only (Routine) - Closed Specialty Diagnoses / Procedures Referred By Contac t Referred To Contact XR IMAGING Diagnoses Gastroesophageal reflux disease, unspecified whether esophagitis present History of bariatric surgery Procedures XR UPPER GI SINGLE CONTRAST RADIOLOGIC EXAM UPR GI TRC SINGLE CONTRAST STUDY Cherry Hernandez MD 1 [facility] [address] [place] [address] [place] [address] Referral ID Status Reason Start Date Expiration Date V isits Requested Visits Authorized [id number] Closed Auto-Generate d Referral 02/14/2023 02/14/2024 1 1 [facility] for referral (narrative)* Diagnostic Procedure Only (Routine) - Pending Review Specialty Diagnoses / Procedures Referred By Contac t Referred To Contact US IMAGING Diagnoses Gastroesophageal reflux disease with esophagitis without hemorrhage Procedures US ABD RIGHT UPPER QUADRANT US ABDOMINAL REAL TIME W/IMAGE LIMITED Cherry Hernandez MD 1 [employer] [facility] [address] [place] [address] [place] [address] Referral ID Status Reason Start Date Expiration Date Visits Requested Visits Authorized [id number] Pending Review Auto-Generat ed Referral 07/28/2023 08/26/2024 1 1 [facility] for referral (narrative)* Diagnostic Procedure Only (Routine) - Closed Specialty Diagnoses / Procedures [facility] Referred To Contact US IMAGING Diagnoses Gastroesophageal reflux disease with esophagitis without hemorrhage Procedures US ABD RIGHT UPPER QUADRANT US ABDOMINAL REAL TIME W/IMAGE LIMITED Cherry Hernandez MD 1 [employer] [address] [place] [id number] [place] [address] Referral ID Status Reason Start Date Expiration Date V isits Requested Visits Authorized [id number] Closed Auto-Generate d Referral 07/28/2023 08/26/2024 1 1 [facility] for visit Narrative* Diagnostic Procedure Only (Routine) - Closed Specialty Diagnoses / Procedures [facility] Referred To Contact XR IMAGING Diagnoses Gastroesophageal reflux disease, unspecified whether esophagitis present History of bariatric surgery Procedures XR UPPER GI SINGLE CONTRAST RADIOLOGIC EXAM UPR GI TRC SINGLE CONTRAST STUDY Cherry Hernandez MD 1 [employer] [facility] [address] [place] [address] [place] [address] Referral ID Status Reason Start Date Expiration Date V isits Requested Visits Authorized [id number] Closed Auto-Generate d Referral 02/14/2023 02/14/2024 1 1 [facility] Summary Purpose Family History No Family History Records Found Relationship Condition Age at Onset Recorded Date/T randy grandmother Cardiac disease Unknown mother Cardiac disease Unknown Advance Directives No Advanced Directives Records FoundDocuments on File Type Date Recorded Patient Paper Cutter Expl anation Advance Directive(s) Advance Directive Response Recorded Date/ Time Advance Directives Yes September 30, 2017 10:08am Living Will No February 02 6:03pm Power of Financial Examiner No February 03, 2020 6:03pm Advance Directive Response Recorded Date/ Time Advance Directives Yes January 8:07am Living Will No November 22 4:40pm Power of Financial Examiner No November 22 4:40pm Living Will No January 14 12:23am Power of Financial Examiner No January 15, 2024 12:23am Living Will No February 13 9:23pm Power of Financial Examiner No February 14, 2024 9:23pm Living Will Yes March 28 12:39pm Power of Financial Examiner Yes March 28, 2024 12:39pm Name of Medical Power of Financial Examiner Marques Barajas no March 28, 2024 12:39pm Advance Directive Response Recorded Date/ Time Advance Directives Yes January 9:07am Living Will No November 22 5:40pm Power of Financial Examiner No November 22 5:40pm Living Will No January 14 1:23am Power of Financial Examiner No January 15, 2024 1:23am Living Will No February 13 10:23pm Power of Financial Examiner No February 14, 2024 10:23pm Living Will Yes March 28 1:39pm Power of Financial Examiner Yes March 28, 2024 1:39pm Name of Medical Power of Financial Examiner Marques Barajas no March 28, 2024 1:39pm Advance Directive Response Recorded Date/ Time Advance Directives Yes January 9:07am Living Will No November 22 5:40pm Do you have a Healthcare Pow er of Financial Examiner? No November 23, 2023 5:40pm Living Will No January 14 1:23am Do you have a Healthcare Pow er of Financial Examiner? No January 15, 2024 1:23am Living Will No February 13 10:23pm Do you have a Healthcare Pow er of Financial Examiner? No February 14, 2024 10:23pm Living Will Yes March 28 1:39pm Do you have a Healthcare Pow er of Financial Examiner? Yes March 28, 2024 1:39pm Name of Medical Power of Financial Examiner Marques Barajas no March 28, 2024 1:39pm Advance Directive Response Recorded Date/ Time Advance Directives Yes January 9:07am Living Will No January 14 1:23am Do you have a Healthcare Pow er of Financial Examiner? No January 15, 2024 1:23am Living Will No April 14, 2024 3:54am Do you have a Healthcare Pow er of Financial Examiner? No April 14, 2024 3:54am Living Will No February 13 10:23pm Do you have a Healthcare Pow er of Financial Examiner? No February 14, 2024 10:23pm Living Will Yes March 28 1:39pm Do you have a Healthcare Pow er of Financial Examiner? Yes March 28, 2024 1:39pm Name of Medical Power of Financial Examiner Marques Barajas no March 28, 2024 1:39pm Advance Directive Response Recorded Date/ Time Living Will No April 14, 2024 3:54am Do you have a Healthcare Pow er of Financial Examiner? No April 14, 2024 3:54am Living Will No May 14, 2024 9:35pm Do you have a Healthcare Pow er of Financial Examiner? No May 14, 2024 9:35pm Living Will No June 13, 2024 8:21pm Do you have a Healthcare Pow er of Financial Examiner? No June 13, 2024 8:21pm Living Will No February 13 10:23pm Do you have a Healthcare Pow er of Financial Examiner? No February 14, 2024 10:23pm Living Will Yes March 28 1:39pm Do you have a Healthcare Pow er of Financial Examiner? Yes March 28, 2024 1:39pm Name of Medical Power of Financial Examiner Marques Barajas no March 28, 2024 1:39pm Advance Directives Yes January 9:07am Chief Complaint and Reason for Visit Chief Complaint STANDING ORDER Chief Complaint Admit Date STANDING ORDER January 09, 2024 9:11am Urinary tract infection January 27, 024 8:13am EORDER January 30, 2024 3:19pm [...] 1 :35pm 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 28, 2024 10:37am [facility] current use of anticoagulant F ebruary 2024 10:37am Acute upper GI bleeding March 28, 025 10:37am Chief Complaint Admit Date Urinary [...] Admit Date 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 28, 2024 10:37am [facility] current use of anticoagulant F ebruronald 2024 10:37am Acute upper GI bleeding March 28 10:37am Additional Source Comments INFORMATION SOURCE (unrecogn ized section and content) DATE CREATED AUTHOR 06/15/2018 [facility] DATE CREATED AUTHOR AUTHOR'S ORGANIZ ATION 06/20/2018 [facility] DATE CREATED AUTHOR AUTHOR'S ORGANIZ ATION 02/22/2021 [facility] [place] DATE CREATED AUTHOR AUTHOR'S ORGANIZ ATION 09/09/2021 [facility] DATE CREATED AUTHOR AUTHOR'S ORGANIZ ATION 07/31/2023 [facility] ([place]) DATE CREATED AUTHOR AUTHOR'S ORGANIZ ATION 10/23/2023 [facility] DATE CREATED AUTHOR AUTHOR'S ORGANIZ ATION 01/17/[address] [facility] DATE CREATED AUTHOR AUTHOR'S ORGANIZ ATION 07/20/2024 [facility] Care Team (unrecognized sect ion and content) Corporate Security Manager Relationship Specialty Start Date End Date [place] [address] [place] [address] PCP - General 03/11/23 Team Status: Active Member Role Status Dates Dr. Miya Goldman DO Family Provider Active Dr. Tacho Ochoa MD Primary Care Provider Active Team Status: Inactive Member Role Status Dates Dr. Tacho Ochoa MD Primary Care Provider Active SHONNA SHEA Attending Provider, Referring Provider Ac tive Corporate Security Manager Relationship Specialty Start Date End Date [place] [address] [place] [address] PCP - General 03/11/23 Corporate Security Manager Relationship Specialty Start Date End Date [place] [address] [place] [address] PCP - General 03/11/23 Corporate Security Manager Relationship Specialty Start Date End Date [place] [address] [place] [address] PCP - General 03/11/23 Corporate Security Manager Relationship Specialty Start Date End Date [place] [address] [place] [address] PCP - General 03/11/23 Corporate Security Manager Relationship Specialty Start Date End Date [place] [address] [place] [address] PCP - General 03/11/23 Corporate Security Manager Relationship Specialty Start Date End Date [facility] [place] [address] [place] [address] PCP - General 03/11/23 Corporate Security Manager Relationship Specialty Start Date End Date [facility] [place] [address] PCP - General 03/11/23 Corporate Security Manager Relationship Specialty Start Date End Date [facility] [place] [address] PCP - General 03/11/23 Corporate Security Manager Relationship Specialty Start Date End Date [facility] [place] [address] [place] [address] PCP - General 03/11/23 Corporate Security Manager Relationship Specialty Start Date End Date [facility] [place] [address] [place] [address] PCP - General 03/11/23 Corporate Security Manager Relationship Specialty Start Date End Date [facility] [place] [address] [place] [address] PCP - General 03/11/23 Corporate Security Manager Relationship Specialty Start Date End Date [facility] [place] [address] [place] [address] PCP - General 03/11/23 Corporate Security Manager Relationship Specialty Start Date End Date [facility] [place] [address] [place] [address] PCP - General 03/11/23 Corporate Security Manager Relationship Specialty Start Date End Date [facility] [place] [address] [place] [address] PCP - General 03/11/23 Corporate Security Manager Relationship Specialty Start Date End Date [facility] [address] [place] [address] PCP - General 03/11/23 Corporate Security Manager Relationship Specialty Start Date End Date [facility] [place] [address] [place] [address] PCP - General 03/11/23 Corporate Security Manager Relationship Specialty Start Date End Date [facility] [address] [place] [address] PCP - General 03/11/23 Corporate Security Manager Relationship Specialty Start Date End Date [place] [address] [place] [address] PCP - General 03/11/23 Corporate Security Manager Relationship Specialty Start Date End Date [facility] [place] [address] [place] [address] PCP - General 03/11/23 Team Status: Active Member Role Status Dates Dr. Marcel Moya MD Primary Care Provider Active Team Status: Inactive Member Role Status Dates SHONNA SHEA Attending Provider Active Start: No [email or web address] End: January 14, 2024 SHONNA SHEA Referring Provider Active Start: No vember 2023 End: January 14, 2024 [facility] Primary Care Provider Active Start: January 09, 2024 End: January 14, 2024 Team Status: Inactive Member Role Status Dates [facility] Primary Care Provider Active Start: January 28, 2024 End: January 28, 2024 [facility] Referring Provider Active Start: 2023 End: January 28, 2024 ALISSON PrajapatiC Attending Provider Active Start: January 28, 2024 End: January 28, 2024 Team Status: Inactive Member Role Status Dates [facility] Primary Care Provider Active Start: January 30, 2024 End: January 30, 2024 My Champion NP-C Attending Provider Active Start: January 30, 2024 End: January 30, 2024 My Champion NP-C Referring Provider Active Start: January 30, 2024 End: January 30, 2024 Team Status: Inactive Member Role Status Dates SHONNA SHEA Attending Provider Active Start: 2023 End: January 31, 2024 SHONNA SHEA Referring Provider Active Start: [place] 2023 End: January 31, 2024 [facility] Primary Care Provider Active Start: January 31, 2024 End: January 31, 2024 Team Status: Inactive Member Role Status Dates [facility] Primary Care Provider Active Start: February 21, 2024 End: February 21, 2024 Dr. Marcel Moya MD Attending Provider Active Start: February 21, 2024 End: February 21, 2024 Team Status: Inactive Member Role Status Dates [facility] Primary Care Provider Active Start: March 02, 2024 End: March 02, 2024 Dr. Marcel Moya MD Attending Provider Active Start: March 02, 2024 End: March 02, 2024 Team Status: Inactive Member Role Status Dates [facility] Primary Care Provider Active Start: March 02, 2024 End: March 02, 2024 [facility] Referring Provider Active Start: Babatunde adames 2024 End: March 02, 2024 MADY Goetz Attending Provider Active Start: March 02, 2024 End: March 02, 2024 Team Status: Inactive Member Role Status Dates [facility] Primary Care Provider Active Start: March 05, 2024 End: March 05, 2024 Dr. Karrie Kapadia MD Attending Provider Active S tart: March 05, 2024 End: March 05, 2024 Dr. Karrie Kapadia MD Referring Provider Active S tart: March 05, 2024 End: March 05, 2024 Team Status: Inactive Member Role Status Dates [facility] Primary Care Provider Active Start: March 22, [...] Start: March 28, 2024 Dr. Mejia Wheeler , Admit Provider Active S tart: March 28, 2024 Dr. Mejia Wheeler DO Referring Provider Active Start: March 28, 2024 Dr. Mejia Wheeler DO Other Provider Active S tart: March 28, 2024 Dr. Trung Payne , Attending Provider Active Start: March 28, 2024 Team Status: Active Member Role Status Dates Sharath Forrest MD Emergency Provider Active Star t: March 28, 2024 Dr. Marcel Moya MD Primary Care Provider Active Start: March 28, 2024 Dr. Mejia Wheeler DO Admit Provider Active S tart: March 28, 2024 Dr. Mejia Wheeler DO Attending Provider Active Start: March 28, 2024 Dr. Mejia Wheeler , Other Provider Active S tart: March 28, [...] Team Status: Inactive Member Role Status Dates SHONNA SHEA Attending Provider Active Start: 2024 End: April 13, 2024 [facility] Primary Care Provider Active Start: April 05, [...] Provider Active Start: April 11, 2024 Dr. Karrie Kapadia MD Attending Provider Active S tart: April 11, 2024 Dr. Karrie Kapadia MD Referring Provider Active S tart: [...] 2024 LEÓN SANCHEZ Attending Provider Active Start: ronald 2024 End: April 10, 2024 LEÓN SANCHEZ Referring Provider Active Start: [facility] 2024 End: April 10, 2024 Team Status: Inactive Member Role Status Dates Dr. Marcel Moya MD Primary Care Provider Active Start: April 11, 2024 End: April 11, 2024 Dr. Karrie Kapadia MD Attending Provider Active S tart: April 11, 2024 End: April 11, 2024 Dr. Karrie Kapadia MD Referring Provider Active S tart: [...] Team Status: Inactive Member Role Status Dates SHONNA SHEA Attending Provider Active Start: [facility] 2024 End: May 04, 2024 Dr. Marcel [...] Team Status: Inactive Member Role Status Dates SHONNA SHEA Attending Provider Active Start: [facility] 2024 End: June 13, 2024 Dr. Marcel Moya MD Primary Care Provider Active Start: May 25, 2024 End: June 13, 2024 Dr. Marcel Moya MD Referring Provider Active Start: May 25, 2024 End: June 13, 2024 Team Status: Inactive Member Role Status Dates SHONNA SHEA Attending Provider Active Start: Cem meeks [...] or prosecute any alcohol or drug abuse patient.[facility] the event this information is protected by the Federal Confidentiality of Alcohol and Drug Abuse Patient Records regulations: The Federal rules restrict any use of the information to criminally investigate or prosecute any alcohol or drug abuse patient.[facility] the event this information is protected by the Federal Confidentiality of Alcohol and Drug Abuse Patient Records regulations: The Federal rules restrict any use of the information to criminally investigate or prosecute any alcohol or drug abuse patient.[facility] the event this information is protected by the Federal Confidentiality of Alcohol and Drug Abuse Patient Records regulations: The Federal rules restrict any use of the information to criminally investigate or prosecute any alcohol or drug abuse patient.[facility] the event this information is protected by the Federal Confidentiality of Alcohol and Drug Abuse Patient Records regulations: The Federal rules restrict any use of the information to criminally investigate or prosecute any alcohol or drug abuse patient.[facility] the event this information is protected by the Federal Confidentiality of Alcohol and Drug Abuse Patient Records regulations: The Federal rules restrict any use of the information to criminally investigate or prosecute any alcohol or drug abuse patient.[facility] HospitalIn the event this information is protected by the Federal Confidentiality of Alcohol and Drug Abuse Patient Records regulations: The Federal rules restrict any use of the information to criminally investigate or prosecute any alcohol or drug abuse patient.[facility] Hospital[facility] the event this information is protected by the Federal Confidentiality of Alcohol and Drug Abuse Patient Records regulations: The Federal rules restrict any use of the information to criminally investigate or prosecute any alcohol or drug abuse patient.[facility] the event this information is protected by the Federal Confidentiality of Alcohol and Drug Abuse Patient Records regulations: The Federal rules restrict any use of the information to criminally investigate or prosecute any alcohol or drug abuse patient.[facility] the event this information is protected by the Federal Confidentiality of Alcohol and Drug Abuse Patient Records regulations: The Federal rules restrict any use of the information to criminally investigate or prosecute any alcohol or drug abuse patient.[facility] the event this information is protected by the Federal Confidentiality of Alcohol and Drug Abuse Patient Records regulations: The Federal rules restrict any use of the information to criminally investigate or prosecute any alcohol or drug abuse patient.[facility] the event this information is protected by the Federal Confidentiality of Alcohol and Drug Abuse Patient Records regulations: The Federal rules restrict any use of the information to criminally investigate or prosecute any alcohol or drug abuse patient.[facility] the event this information is protected by the Federal Confidentiality of Alcohol and Drug Abuse Patient Records regulations: The Federal rules restrict any use of the information to criminally investigate or prosecute any alcohol or drug abuse patient.[facility] HospitalIn the event this information is protected by the Federal Confidentiality of Alcohol and Drug Abuse Patient Records regulations: The Federal rules restrict any use of the information to criminally investigate or prosecute any alcohol or drug abuse patient.[facility] HospitalIn the event this information is protected by the Federal Confidentiality of Alcohol and Drug Abuse Patient Records regulations: The Federal rules restrict any use of the information to criminally investigate or prosecute any alcohol or drug abuse patient.[facility] HospitalIn the event this information is protected by the Federal Confidentiality of Alcohol and Drug Abuse Patient Records regulations: The Federal rules restrict any use of the information to criminally investigate or prosecute any alcohol or drug abuse patient.[facility] HospitalIn the event this information is protected by the Federal Confidentiality of Alcohol and Drug Abuse Patient Records regulations: The Federal rules restrict any use of the information to criminally investigate or prosecute any alcohol or drug abuse patient.[facility] HospitalIn the event this information is protected by the Federal Confidentiality of Alcohol and Drug Abuse Patient Records regulations: The Federal rules restrict any use of the information to criminally investigate or prosecute any alcohol or drug abuse patient.[facility] HospitalIn the event this information is protected by the Federal Confidentiality of Alcohol and Drug Abuse Patient Records regulations: The Federal rules restrict any use of the information to criminally investigate or prosecute any alcohol or drug abuse patient.[facility] HospitalIn the event this information is protected by the Federal Confidentiality of Alcohol and Drug Abuse Patient Records regulations: The Federal rules restrict any use of the information to criminally investigate or prosecute any alcohol or drug abuse patient.[facility] HospitalIn the event this information is protected by the Federal Confidentiality of Alcohol and Drug Abuse Patient Records regulations: The Federal rules restrict any use of the information to criminally investigate or prosecute any alcohol or drug abuse patient.[facility] HospitalIn the event this information is protected by the Federal Confidentiality of Alcohol and Drug Abuse Patient Records regulations: The Federal rules restrict any use of the information to criminally investigate or prosecute any alcohol or drug abuse patient.[facility] HospitalIn the event this information is protected by the Federal Confidentiality of Alcohol and Drug Abuse Patient Records regulations: The Federal rules restrict any use of the information to criminally investigate or prosecute any alcohol or drug abuse patient.[facility] Care Team (unrecognized sect ion and content) Care Team Personnel Name: [facility], CLINIC Position: Physician Member Role: Primary Care Physician Address: Address: [address] [place] [address] Care Team Personnel Name: [facility], CLINIC Position: Physician Member Role: Primary Care Physician Address: Address: [address] [place] [address] Care Team Personnel Name: [facility], CLINIC Position: Physician Member Role: Primary Care Physician Address: Address: [address] [place] [address] Care Team Personnel Name: [facility], CLINIC Position: Physician Member Role: Primary Care Physician Address: Address: [address] [place] [address] Care Team Personnel Name: MT, CLINIC Position: Physician Member Role: Primary Care Physician Address: Address: [address] [place] [address] Care Team Personnel Name: MT, [facility] Position: Physician Member Role: Primary Care Physician Address: Address: [address] [place] [address] Name: Shereen Boykin RN Position: RN Member Role: ED RN Name: JENNIFER MINOR DO Position: ED Physician Member Role: Attending Physician Address: Address: [facility] [address] Care Team Personnel Name: MT, CLINIC Position: Physician Member Role: Primary Care Physician Address: Address: [address] [place] [address] Name: MD ARMANDO [address] MD Position: ED Physician Member Role: ED Physician Address: Address: [facility] [address] [place] Name: Jodi Martinez RN Position: ED RN Member Role: ED RN Care Team Personnel Name: MT, CLINIC Position: Physician Member Role: Primary Care Physician Address: Address: [address] [place] [id number] Goals (unrecognized section and content) Goals may be documented in a n alternate section Reason for Visit (unrecogniz ed section and content) Reason Comments Appointment Reason Comments Follow Up Specialty Diagnoses / Procedures Referred By Wilton t Referred To Contact General Surgery / GENERAL SURGERY Diagnoses Encounter for general adult medical examination without abnormal findings HBC - F/U - UGI & EGD Lopez Procedures OFFICE/OUTPATIENT ESTABLISHED HIGH MDM 40 MIN OFFICE/OUTPATIENT ESTABLISHED MOD MDM 30 MIN OFFICE/OUTPATIENT ESTABLISHED LOW MDM 20 MIN OFFICE/OUTPATIENT ESTABLISHED SF MDM 10 MIN EST PATIENT Self Cherry Hernandez MD [facility] [address] [place] [id number] Referral ID Status Reason Start Date Expiration Date Visits Re quested Visits Authorized [id number] Closed 11/24/2022 08/24/2023 1 1 Reason Comments Patient Update [place] benefits informat ion Reason Comments Established Patient Specialty Diagnoses / Procedures Referred By Wilton Referred To Contact General Surgery / GENERAL SURGERY Diagnoses Gastroparesis HBC - F/U Gastroparesis Procedures OFFICE/OUTPATIENT ESTABLISHED SF MDM 10 MIN OFFICE/OUTPATIENT ESTABLISHED LOW MDM 20 MIN OFFICE/OUTPATIENT ESTABLISHED MOD MDM 30 MIN OFFICE/OUTPATIENT ESTABLISHED HIGH MDM 40 MIN EST PATIENT Cherry Hernandez MD 1 [facility] [place] [address] [place] [id number] Cherry Hernandez MD 1 [facility] [place] [address] [place] [id number] Referral ID Status Reason Start Date Expiration Date Visits Re quested Visits Authorized [id number] Closed 11/24/2022 12/01/2023 1 1 Reason Comments Appointment Patient Question Reason Comments Patient Update Reason Comments Established Patient Reason Comments Medical Clearance Reason Comments Radiology US Specialty Diagnoses / Procedures Referred By Wilton t Referred To Contact US IMAGING Diagnoses Gastroesophageal reflux disease with esophagitis without hemorrhage Procedures US ABD RIGHT UPPER QUADRANT US ABDOMINAL REAL TIME W/IMAGE LIMITED Cherry Hernandez MD 1 [facility] [address] [address] [place] [address] [facility] [place] [id number] Referral ID Status Reason Start Date Expiration Date V isits Requested Visits Authorized [id number] Closed Auto-Generate d Referral 07/28/2023 08/26/2024 1 [...] BE BASED ON THE PRIMARY CLINICAL RECORDS. [facility]. provides no warranty or guarantee of the accuracy or completeness of information in this document.
[2024-07-21 11:21] LABS: Anion Gap 11 (5-15); BUN 24 mg/dL (4-19); Calcium,Total 9.4 mg/dL (7.6-11.0); Carbon Dioxide 23.2 mmol/L (21.0-32.0); Chloride 105 mmol/L (98-108); Creatinine, Serum 0.65 mg/dL (0.70-1.20); EST Glomerular Filtration Rate 101 (>60); Estimated Creatinine Clearance 97.42 ml/min (50-250); Glucose 96 mg/dL (70-99); Potassium 4.2 mmol/L (3.3-5.1); Sodium Level 139 mmol/L (133-145)
[2024-07-21 11:32] LABS: Absolute Lymphocyte Count 1.67 X10^3/uL (0.83-4.51); Absolute Neutrophil Count 3.6 X10^3/uL (2.0-7.7); Basophil# 0.04 X10^3/uL; Basophil% 0.7 % (0-1); Eosinophil# 0.25 X10^3/uL; Eosinophils% 4.1 % (0-5); Hematocrit 38.2 % (37-47); Lymphocyte # 1.67 X10^3/ul (0.83-4.51); Lymphocyte % 27.5 % (19-41); Mean Corpuscular Hgb 29.7 pg (27.0-32.0); Mean Corpuscular Volume 87.2 fL (81-99); Mean Platelet Vol. 9.6 fl (6.2-12.0); Monocyte# 0.48 X10^3/uL; Monocyte% 7.9 % (0-10); NRBC Flagged by Analyzer 0 % (0-5); Neutrophil # 3.63 X10^3/uL (2.7-7.7); Neutrophil % 59.6 % (47-70); Platelet Count 235 K/mm3 (150-450); RBC Distribution Width CV 13.2 % (11.6-14.6); RBC Distribution Width SD 42.5 fl (35.1-43.9); Red Blood Count 4.38 M/mm3 (4.2-5.4); White Blood Count 6.1 K/mm3 (4.4-11.0)
[2024-07-21 11:40] LABS: International Normalized Ratio 2.6; Prothrombin Time (Protime)PT. 28.8 SECONDS (11.7-14.9)
[2024-07-21 11:41] LABS: Partial Thromboplast Time 45.4 Seconds (24.1-36.2)
--- NOTE | 2024-07-21 12:14 | ED.RN ---
charted this IV in error on the wrong pt. this pt does not have iv access
[2024-07-21 12:22] VITALS: BP 126/67; PULSE 68; RESP 19; O2SAT 100
[2024-07-21 12:46] VITALS: BP 126/67; PULSE 68; RESP 17; TEMP 36.5; O2SAT 100
== END 2024-07-21 13:08 | disposition home or self-care (01) ==
PROVIDERS: Emergency Provider Emergency Medicine; PCP Family Medicine Geriatric Medicine; Visit Provider Emergency Medicine
DX: R04.0 Epistaxis (principal); E78.5 Hyperlipidemia, unspecified; I10 Essential (primary) hypertension; Z79.01 Long term (current) use of anticoagulants; Z95.3 Presence of xenogenic heart valve; Z90.49 Acquired absence of other specified parts of digestive tract; Z90.710 Acquired absence of both cervix and uterus; R06.02 Shortness of breath; Q23.81 Bicuspid aortic valve; I35.0 Nonrheumatic aortic (valve) stenosis
CPT/HCPCS: 30901; 80048; 85025; 85610; 85730; 99283

== ENCOUNTER → 2024-08-29 | Outpatient (CLI) | payer OTHER, SELFPAY ==
[2024-08-30 11:08] LABS: H. PYLORI STOOL AG Negative (Negative)
== END | disposition home or self-care (01) ==
LOC: POLAB3 10:08
PROVIDERS: PCP Family Medicine Geriatric Medicine; Visit Provider Family Medicine Geriatric Medicine
DX: A04.8 Other specified bacterial intestinal infections (principal)
CPT/HCPCS: 87338

== ENCOUNTER → 2024-12-04 | Outpatient (CLI) | payer OTHER, SELFPAY ==
--- NOTE | 2024-12-04 07:37 | ECHOD_ITS ---
Reason For Study Reason For Study: AORTIC VALVE REPLACMENT Procedure This was a 2D Doppler, Color Flow transthoracic echocardiogram. The study was technically difficult. Exam performed in department. Left Ventricle Normal LV size. Left ventricular systolic function is normal. The left ventricular ejection fraction is 65 %. No regional wall motion abnormalities noted. Right Ventricle Normal RV size. Normal systolic function. Atria Normal left atrium. Normal right atrium. Mitral Valve Normal mitral valve. Tricuspid Valve Normal tricuspid valve. Mild (1+) tricuspid valve insufficiency. Aortic Valve Peak aortic valve gradient 22 mmHg. Mean aortic valve gradient 13 mmHg. Stable appearing mechanical aortic valve apparatus. Pulmonic Valve Normal pulmonic valve. Great Vessels Normal aortic root. The pulmonary artery is normal size. Inferior vena cava collapse with respiration. Pericardium/Pleural No pericardial effusion. MMode/2D Measurements & Calculations LVIDd: 4.6 cm IVSd: 1.1 cm LVOT diam: 1.9 cm LVIDs: 2.3 cm LVPWd: 1.0 cm LVOT area: 2.8 cm2 RVDd: 3.5 cm FS: 49.6 % asc Aorta Diam: 2.5 cm LAV(MOD-bp): 43.9 ml LVAd ap4: 22.2 cm2 LAV(MOD-bp) Indexed: 24.0 ml/m2 LVLd ap4: 6.7 cm LAV(MOD-sp2): 37.3 ml EDV(MOD-sp4): 58.9 ml LAV(MOD-sp4): 44.0 ml EDV(sp4-el): 62.4 ml LVAs ap4: 11.9 cm2 LVLs ap4: 5.8 cm ESV(MOD-sp4): 20.4 ml ESV(sp4-el): 21.0 ml EF(MOD-sp4): 65.5 % EF(sp4-el): 66.3 % LVAd ap2: 20.9 cm2 SV(MOD-sp4): 38.6 ml SV(MOD-sp2): 32.4 ml LVLd ap2: 6.7 cm SI(MOD-sp4): 21.1 ml/m2 SI(MOD-sp2): 17.7 ml/m2 EDV(MOD-sp2): 55.6 ml EDV(sp2-el): 55.6 ml LVAs ap2: 12.6 cm2 LVLs ap2: 5.8 cm ESV(MOD-sp2): 23.3 ml ESV(sp2-el): 23.2 ml EF(MOD-sp2): 58.2 % SV(sp4-el): 41.4 ml Ao sinus diam: 2.6 cm LA A4 area: 17.6 cm2 LA dimension(2D): 3.4 cm RA A4 area: 12.8 cm2 TAPSE: 1.6 cm Time Measurements MV dec time: 0.23 sec Doppler Measurements & Calculations MV E max peewee: 93.4 cm/sec Lat Peak E' Peewee: 13.1 cm/sec Med Peak E' Peewee: 9.4 cm/sec MV A max peewee: 82.7 cm/sec E/E' lat: 7.1 E/E' med: 9.9 MV E/A: 1.1 Ao V2 max: 234.6 cm/sec LV V1 max: 145.3 cm/sec MV dec slope: 400.7 cm/sec2 Ao max P.0 mmHg LV V1 max P.4 mmHg Ao V2 mean: 176.1 cm/sec LV V1 mean P.6 mmHg Ao mean P.3 mmHg LV V1 mean: 113.9 cm/sec Ao V2 VTI: 50.9 cm LV V1 VTI: 34.5 cm AV (velocity ratio): 0.68 EZEQUIEL(I,D): 1.9 cm2 EZEQUIEL(V,D): 1.7 cm2 SV(LVOT): 97.0 ml PA V2 max: 65.7 cm/sec TR max peewee: 183.8 cm/sec TR max P.5 mmHg ECHO/Echo Complete Interpretation Summary Normal LV size. Left ventricular systolic function is normal. The left ventricular ejection fraction is 65 %. Mean aortic valve gradient 13 mmHg. Stable appearing mechanical aortic valve apparatus. Ordering Physician: Jason Frederick Referring Physician: Marcel Moya Chi Performed By: Mora Goddard RDCS
--- OUTSIDE RECORDS SUMMARY | 2024-12-04 07:47 | XMS RPT_ITS ---
Author Name [facility] Organization [facility]OBLEMS No Problem Records Found PROCEDURES No Procedure Records Found RESULTS CNPN Observed: 01/16/2024 12:00 AM Status: COMPLETED Source: [facility] Telephone ([id number]) JOÃO MUJICA ([id number]) 1965 F CHT Date Time Provider Department 01/16/24 CHERRY HERNANDEZ4 During your visit today, we recorded the following information about you: Berta Carrion RN 01/16/2024 11:53 AM Signed MDT: [...] update after Dr. Hernandez speaks with pt. Berta Carrion, RN, BSN Bariatric Plug Paster Allergies As of Date: 01/16/2024 Noted Allergy [...] and stiffness Date Reviewed: 10/28/2023 Reviewed by: Lexis Bennett APRN.LIBRARY SUPERVISOR - Fully Assessed Reason for Visit: MDT [...] valve replacement [Z95.2] 05/13/2023 Encounter Status:Closed by BERTA CARRION on 01/16/24 ALLERGIES No Allergies Records Found ENCOUNTERS No Encounter Records Found PAYERS No Payer Records Found
== END | disposition home or self-care (01) ==
LOC: CVS 07:37
PROVIDERS: PCP Family Medicine Geriatric Medicine; Referring Provider Internal Medicine Cardiovascular Disease; Visit Provider Internal Medicine Cardiovascular Disease
DX: Z95.4 Presence of other heart-valve replacement (principal)
CPT/HCPCS: 93306

== ENCOUNTER → 2024-12-14 | Outpatient (CLI) | payer OTHER, SELFPAY ==
--- NOTE | 2024-12-14 07:45 | BI_ITS ---
EXAM: SCRN MAMM (CAD)W/CHAIM BILAT DATE: 12/14/2024 CLINICAL HISTORY: F, Age 59 y/o , SCREENING TECHNIQUE: Procedure Code: [id number] Modality: MG Procedure: SCRN MAMM (CAD)W/CHAIM BILAT COMPARISON: Prior exam(s) dated 07/04/2019, 06/22/2018. FINDINGS: TISSUE DENSITY: The breasts are almost entirely fatty. Bilateral Breast Mammographic Findings: No significant masses, calcifications or other abnormalities are identified. BI/SCRN MAMM (CAD)W/CHAIM BILAT IMPRESSION: There is no mammographic evidence of malignancy. OVERALL FINAL ASSESSMENT BI-RADS 1: NEGATIVE. RECOMMENDATION: Routine annual follow-up in 1 Year Additional Recommendation none A letter with findings and recommendations will be mailed to the patient. Reading Location: [id number]
== END | disposition home or self-care (01) ==
LOC: OPBI 07:43
PROVIDERS: PCP Family Medicine Geriatric Medicine; Referring Provider Family Medicine Geriatric Medicine; Visit Provider Family Medicine Geriatric Medicine
DX: Z12.31 Encounter for screening mammogram for malignant neoplasm of breast (principal)
CPT/HCPCS: 77063; 77067

== ENCOUNTER → 2024-12-25 | Outpatient (CLI) | payer OTHER, SELFPAY ==
--- NOTE | 2024-12-25 09:24 | CT_ITS ---
PROCEDURE: ABDOMEN/PELVIS WITH CONTRAST 12/25/2024 REASON FOR EXAM: ASYMPTOMATIC MICROSCOPIC HEMATURIA/ OVERACTIVE BLADDER TECHNIQUE: Procedure Code: [id number] Modality: CT Procedure: ABDOMEN/PELVIS WITH CONTRAST Coronal and Sagittal reconstruction series were provided. CONTRAST: VOLUME: mL One or more dose reduction techniques were used (e.g., Automated exposure control, adjustment of the mA and/or kV according to patient size, use of iterative reconstruction technique. COMPARISON: 04/19/24. FINDINGS: The visualized lung bases are clear. Moderate circumferential thickening of the distal esophagus, suggestive of esophagitis. Postsurgical changes are noted in the stomach, unchanged. A punctate hyperdensity within the left renal pelvis (series 2 image 34) could represent a tiny nonobstructing stone. Otherwise the left kidney appears unremarkable. The liver, pancreas, spleen, adrenal glands, right kidney, and urinary bladder appear unremarkable. Cholecystectomy, unchanged. Hysterectomy, unchanged. No evidence of a bowel obstruction. No bowel wall thickening. A large amount of stool is noted throughout the colon. The appendix is visualized and unremarkable. Mild calcified and soft atherosclerotic plaque within the abdominal aorta and iliac arteries. No intraperitoneal free air or free fluid. No abdominal nor pelvic lymphadenopathy. No acute osseous abnormality. No acute fracture. Grade 1 anterolisthesis of L5 on S1, unchanged. CT/Abdomen/Pelvis WITH Contrast IMPRESSION: Moderate circumferential thickening of the distal esophagus suggestive of esoph agitis. Large amount of stool throughout the colon. Punctate hyperdensity within the left renal pelvis, possibly a tiny nonobstruct ing stone. Additional nonacute findings, as described above. Reading Location: [id number]
== END | disposition home or self-care (01) ==
LOC: CT 09:23
PROVIDERS: PCP Family Medicine Geriatric Medicine; Referring Provider Urology; Visit Provider Urology
DX: R31.21 Asymptomatic microscopic hematuria (principal); N32.81 Overactive bladder
CPT/HCPCS: 74177; Q9967